=== PATIENT | male | born 1935 | race Caucasian/White ===

== ENCOUNTER 2017-01-01 03:00 | Inpatient (IN) | payer MEDICARE, BC ==
[~2017-01-01] VITALS: Ht 162.6 cm; Wt 97.6 kg
[~2017-01-01 03:00] MED LIST: ALPR0.5T6 PO; AMLO10TA2 PO; ASPI-482 PO; CALC0.25 PO; DOCU100C5 PO; DORZ10DR7 RIGHTEYE; FERR325T20 PO; FLUN25SP NS; FOLI1TAB16 PO; FURO80TA3 PO; GEMF600T3 PO; INSU100V SQ; INSU100V8 SQ; LACT10SO5 PO; LATA2.5D3 EACHEYE; LIPA1CAP10 PO; MAGN400T22 PO; METO10TA5 PO; METO50TA2 PO; MORP30TA PO; MORP60CA17 PO; OMEG1CAP6 PO; OMEP20TA63 PO; PREG25CA PO; PREG75CA PO; ROPI1TAB2 PO; SENN8.6T99 PO; SPIR25TA3 PO; TAMS0.4C2 PO; TRAV5DRO OP; WARF4TAB7 PO; WARF5TAB7 PO
[2017-01-01 04:55] VITALS: BP 164/75
[2017-01-01] MEDS ORDERED: hydrALAZINE 20 MG/ML VIAL. IVP PRN (05:00)
[2017-01-01] MEDS ORDERED: ACETAMINOPHEN 325 MG TABLET. PO PRN (05:00)
[2017-01-01] MEDS ORDERED: FUROSEMIDE 20 MG/2 ML VIAL IVP ONE (05:30)
[2017-01-01] MEDS ORDERED: FENTANYL PF 100 MCG/2 ML VIAL. IV ONE (06:00)
[2017-01-01] MEDS: HYDROCODONE/APAP 5/325MG TABLET. PO PRN ×2 (06:21→09:53)
[2017-01-01 07:00] VITALS: BP 143/64
[2017-01-01 11:00] VITALS: BP 175/77
--- NOTE | 2017-01-01 11:06 | PDOC2 ---
DATE OF CONSULT Date of Consult 01/01/2017 REASON FOR CONSULT Reason for Consult CKD III/ IV + TIM REFERRING PHYSICIAN Referring Provider Ameya CHIEF COMPLAINT Chief Complaint SOB SOURCE Source Pt and Records from outside hospital HPI HPI as dictated CURRENT MEDICATIONS Current Meds Current Medications Medications (Trade) Dose Ordered Sig/Tracy Route PRN Reason Start Time Stop Time Status Last Admin Dose Admin Furosemide (Lasix) 20 mg 1X ONCE IVP 01/01/17 05:30 01/01/17 05:31 DC 01/01/17 05:44 Fentanyl Citrate (Fentanyl 2ml Vial) 25 mcg 1X ONCE IV 01/01/17 06:00 01/01/17 06:01 DC 01/01/17 05:45 Acetaminophen/ Hydrocodone Bitart (Lortab 5/325) 1 tab PRN Q4HRS PRN PO MODERATE PAIN 01/01/17 05:30 01/01/17 09:53 Home Meds Reviewed as Doucmented ALLERGIES Allergies: Coded Allergies: Pehrntn-Oix-Zfq Reductase Inhibitor (Verified Allergy, Severe, Brain swelling. , 09/18/15) Pt was taking Gabapentin with a Statin and per . "It almost killed him." gabapentin (Verified Allergy, Severe, Brain swelling, 09/18/15) Per pt had Gabapentin with a Statin and it caused brain swelling, "almost killed him." sulfamethoxazole (Verified Allergy, Intermediate, 01/01/17) trimethoprim (Verified Allergy, Intermediate, 01/01/17) ROS ROS GEN: subj Fevers no Chills EYES: no new Visual Complaints ENT: no EN Drainage Ch Hearing deficiets CVS: no Orthopnea no CP RESP: occ SOB occ HANSEN GI: min Nausea no Vomiting : ? Dysuria occ Urgency HEME: no easy bruising no Palp Ly Nodes NEURO no Focal Weakness no Sz PSYCH: no Suicidal Ideation no Depression SKIN: no Rashes ENDO: no Polyuria or Polydipsia no Hot/Cold Intolerance MU SK: ch Arthraigia no Myalgia VITAL SIGNS Vital Signs VS - Last 72 Hours, by Label Date Time Temp Pulse Resp B/P Pulse Ox O2 Delivery O2 Flow Rate FiO2 01/01/17 09:53 94 Room Air 01/01/17 07:25 Room Air 01/01/17 07:00 97.4 71 14 143/64 94 Room Air 97.4 01/01/17 06:21 20 Room Air 01/01/17 06:15 20 Room Air 01/01/17 06:04 Room Air 01/01/17 05:45 20 Room Air 01/01/17 04:55 97.5 69 18 164/75 96 Room Air 97.5 PHYSICAL EXAM Physical Exam General Appearance: Awake Alert Oriented x 3 In mod Distress Eyes: VIsion Unchanged Conjunctiva Normal EN: No EN Drainage Mucous Memb. moist Neck: no JVD no JVP Supple no Thyromegaly; shorth thick neck CVS: S1 S2 ? Murmur No Gallop No Rub +2 Edema Resp: no Rales no Rhonchi no Acc. Muscle use GI: BAS +ve NO Bruit Non Tender Non Distended; Obese : no CVA tenderness; no Suprapubic Tenderness SKIN: no Rashes Breast Exam deferred Mu.Sk: Adequate ROM no Muscle Atrophy Heme: Unable to palpate Obvious LAD no palp Splenomegaly NEURO: Good Strength and Tone Cranial Nerves II - XII grossly intact Psych: ? Depressed appearring no Active hallucination ASSESSMENT/PLAN Assessment/Plan CKD III/ Iv - await 24hr Urine collection results from PCP office. Current FLuid and E-lyte status does not necessitate emergent need for Dialysis. Low Back pain - better with Urination - ? Retention; cannot R/o Pyelo given CT Findings recent Hematuria asso with Good placement - Check Bl Scan - URO eval for ? Good placement with Lasix gtt Anasarca - Lasix gtt, OK lookin Liver on CT, check Renal US and ECHO - May need Rt Heart Cath Anemia: check Iron; may need Epogen Transfuse as needed. DM -nephropathy - unable to quantify Protein due to ch. Incontinence as OP and now Hematuria HTN: Current BP meds reviewed. See orders for changes. Discussed Plan of Care and prognosis etc. at length with family. LABS Labs: Laboratory Tests Test 01/01/17 08:08 01/01/17 10:57 Glucose (Fingerstick) 148mg/dL (70-99) 218mg/dL (70-99) RICHIE UPTON MD Jan 01, 2017 11:06
[2017-01-01] MEDS ORDERED: MAGNESIUM SULFATE 2GM 50 ML IV PRN (11:15)
[2017-01-01] MEDS ORDERED: ALPRAZOLAM 0.5 MG TABLET PO PRN (11:45)
[2017-01-01] MEDS ORDERED: METOPROLOL TART IMMED RELEASE 25 MG TABLET PO SCH (12:30)
[2017-01-01] MEDS ORDERED: PANTOPRAZOLE 40 MG TABLET. PO SCH (12:30)
[2017-01-01] MEDS ORDERED: SPIRONOLACTONE 25 MG TABLET PO SCH (12:30)
[2017-01-01 13:53] LABS: PROTHROMBIN TIME PATIENT 21.6 SEC (11.7-14.0)
[2017-01-01 15:00] VITALS: BP 144/69
--- NOTE | 2017-01-01 15:05 | RAD ---
Renal ultrasound 01/01/2017 Clinical history: Elevated creatinine. Renal failure. Technique: A real-time ultrasound examination of both kidneys and the urinary bladder was performed. Multiple images were obtained. Findings: Comparison study is dated 11/25/2014. The right kidney is normal in size measuring 11.6 cm in length. No focal abnormality of the right kidney is seen. There is no evidence of hydronephrosis. The left kidney not visualized due to to the patient's very large body habitus and overlying bowel gas. The urinary bladder is not visualized. Impression: 1. No focal abnormality of the right kidney is seen. 2.The left kidney is not visualized as outlined above.
[2017-01-01] MEDS ORDERED: WARFARIN 4 MG TABLET. PO SCH (16:00)
[2017-01-01] MEDS: GEMFIBROZIL 600 MG TABLET. PO SCH ×2 (16:02→20:57)
[2017-01-01] MEDS: PREGABALIN 75 MG CAPSULE PO SCH ×2 (16:02→20:56)
[2017-01-01] MEDS: OMEGA-3 FATTY ACIDS/FISH OIL 1,000 MG CAPSULE. PO SCH (16:03)
[2017-01-01] MEDS: TAMSULOSIN 0.4 MG CAP.ER.24H. PO SCH (16:03)
[2017-01-01] MEDS: FOLIC ACID 1 MG TABLET PO SCH ×2 (16:03→20:57)
[2017-01-01] MEDS: OXYCODONE/APAP 5/325 TABLET. PO PRN ×2 (16:03→22:49)
[2017-01-01] MEDS: LIPASE/PROTEAS/AMYLASE 5/17/27 CAPSULE.DR. PO SCH ×2 (16:04→17:00)
[2017-01-01] MEDS: ASPIRIN ENTERIC COATED 81 MG TABLET.DR. PO SCH (16:04)
[2017-01-01] MEDS: WARFARIN 2 MG TABLET. PO SCH (16:04)
[2017-01-01] MEDS: CALCITRIOL 0.25 MCG CAPSULE PO SCH (16:04)
[2017-01-01] MEDS: SENNOSIDES 8.6 MG TABLET PO SCH ×2 (16:04→20:57)
[2017-01-01] MEDS: DORZOLAMIDE/TIMOLOL 2%/0.5% OPHTH SOLUTION 10ML BOTTLE. OU SCH ×2 (16:05→20:57)
[2017-01-01] MEDS: INSULIN ASPART 300 UNITS/3 ML INSULN.PEN SQ SCH (17:41)
[2017-01-01] MEDS ORDERED: DEXTROSE 50% 25 GM / 50ML DISP.SYRIN. IV PRN (17:45)
--- NOTE | 2017-01-01 18:58 | HP ---
ADMIT DATE: 01/01/2017 CHIEF COMPLAINT: Scrotal edema. HISTORY OF PRESENT ILLNESS: The patient is an 81-year-old gentleman who had presented to [facility] with increased swelling in his scrotal area, also had lower extremity edema. He was worked up there with a CT of the abdomen without intravenous contrast secondary to chronic renal insufficiency. CT showed diffuse body wall edema in keeping with volume overload. No significant pleural effusion or ascites, however, was noted. As he had significant renal insufficiency at baseline, which appeared to be worse at [facility], he was transferred here for evaluation by Nephrology. He typically follows Dr. Caesar Grant on an outpatient basis. PAST MEDICAL HISTORY: CKD stage III, hypertension, hyperlipidemia, diabetes mellitus, CAD, paroxysmal atrial fibrillation, sick sinus syndrome, cardiomyopathy, thrombocytopenia, obstructive sleep apnea, history of pneumonia. PAST SURGICAL HISTORY: He is status post CABG and catheterization with stent placement, status post rotator cuff repair, also cardiac pacemaker placement. FAMILY HISTORY: CAD. SOCIAL HISTORY: Lives with his , never smoked, drinks about 5 beers a week. ALLERGIES: STATINS, GABAPENTIN, SULFA. MEDICATIONS: MAR reconciled with home medications. REVIEW OF SYSTEMS: Essentially positive as per HPI. The patient is quite inactive at home, gets short of breath with minimal exertion. Has some urinary incontinence as well. Denies any hesitancy or other BPH symptoms. Denies any ongoing shortness of breath at rest, any chest pain, cough or sputum production. Denies any nausea, vomiting or diarrhea. PHYSICAL EXAMINATION: VITAL SIGNS: From today show a blood pressure of 143/64, heart rate of 71, respiratory rate at 14. He is afebrile. GENERAL: This is a morbidly obese, 81-year-old gentleman, alert and oriented, no acute distress, somewhat labored breathing, which he considers normal. HEENT: Shows no scleral icterus. NECK: Short and thick. LUNGS: Fairly clear bilaterally. HEART: Regular rate and rhythm. ABDOMEN: Has positive bowel sounds, morbidly obese. Organs could not be palpated, slightly distended. EXTREMITIES: Show 1-2+ pitting edema with chronic venous stasis changes. LABORATORY DATA: CBC from today shows a WBC of 4.2, hemoglobin at 10.1 with an MCV at 101, platelets at 99. Differential essentially within normal limits. Chemistries with potassium of 4.9, BUN and creatinine of 55 and 2.2. ALT at 67, PT/INR at 21 and 1.8. BNP of 1630, which for him is actually relatively low, previously up to 8000. CT of the chest, abdomen and pelvis obtained at [facility] shows only diffuse body wall edema. No pleural effusion or ascites. ASSESSMENT AND PLAN: The patient is an 81-year-old morbidly obese gentleman with multiple medical issues including now chronic kidney disease 4. His returns supervisor, Dr. Grant has already seen him and the patient was discussed with him. For his anasarca, he will receive Lasix by IV. Further testing with renal ultrasound will be obtained. Given current presentation, cannot rule out congestive heart failure/right-sided heart failure with liver congestion. We will obtain echo as well as Cardiology consult for consideration of right heart catheterization. He does have anemia, which is not unusual given his renal disease. However, he actually is macrocytic. We will obtain additional labs to rule out deficiencies. He does have multiple cardiac issues as well. For now, appears fairly stable. We will continue current medications. Cardiology consult has been requested. Diabetes mellitus seems fairly well controlled. We will continue home medications, add insulin sliding scale. Has osteoarthritis with chronic lower back pain. Although hydrocodone is listed on his med sheets, he apparently takes oxycodone at home. This has been ordered here. Prophylaxis will be instituted with subcutaneous heparin as well as PPI. MELISSA ESPAÑA MD DR: JAY/elpidio JOB#: [id number] / [id number] [place]
[2017-01-01 19:00] VITALS: BP 175/74
[2017-01-01] MEDS: rOPINIRole 1 MG TABLET. PO SCH (20:56)
[2017-01-01] MEDS: FERROUS SULFATE 325 MG TABLET PO SCH (20:57)
[2017-01-01] MEDS: LATANOPROST 0.005% OPHTH SOLUTION 2.5ML BOTTLE. OU SCH (20:57)
[2017-01-01] MEDS: METOPROLOL TART IMMED RELEASE 25 MG TABLET PO SCH (21:02)
[2017-01-01] MEDS: INSULIN DETEMIR 300 UNITS/3 ML INSULN.PEN. SQ SCH (21:05)
[2017-01-01 23:38] VITALS: BP 128/65
--- NOTE | 2017-01-02 00:36 | CONS ---
DATE OF CONSULTATION: 01/01/2017 PRIMARY PHYSICIAN: Dalton Hou MD REASON FOR CONSULTATION: Chronic renal insufficiency. HISTORY OF PRESENT ILLNESS: The patient is a pleasant 81-year-old gentleman with past medical history as outlined below. He was having lower back pain and presented to [place] [facility] for further evaluation. He underwent CT scan of his abdomen, which showed no gross abnormalities other than mild bilateral nonspecific perinephric stranding and diffuse body wall edema with possible volume overload. No pleural effusions or ascites were noted. The patient has had issues with chronic incontinence. [facility] He does not recollect the name. We have attempted to do a 24-hour urine on numerous occasions; however, on one occasion, he was able to return a urine specimen, he only had 650 mL because of his incontinence, hence, a Good catheter was ordered at this visit. He claims a home health nurse had come by and placed a Good catheter, but he was urinating bloody urine at that time. His Good was taken out about a week or two ago. ____ a 24-hour urine collection, the results of which are not available to me at this time. He claims his pain started right around that time. He does claim that it is better with urination. Denies any shortness of breath, fevers, or chills. The patient has had issues with fluid overload from time to time. On attempting to diurese him, he has gone into renal failure and "dehydration," for which he was recently treated at [facility]. He also had lower extremity fracture at that time. PAST MEDICAL HISTORY: Significant for: 1. Longstanding diabetes. 2. CKD stage 3/4, depending on fluid status. 3. Hypertension. 4. Hyperlipidemia. 5. Exogenous obesity. 6. Peptic ulcer disease. 7. Hearing deficits. 8. Coronary artery disease, status post CABG. 9. GERD. 10. Paroxysmal atrial fibrillation. 11. Sick sinus syndrome. 12. Cardiomyopathy, EF not known. 13. History of pneumonia. 14. Obstructive sleep apnea. PAST SURGICAL HISTORY: 1. Rotator cuff surgery. 2. Breast surgery. 3. Eye surgery. 4. ____ stimulator in place. SOCIAL HISTORY: Never smoked, . Alcohol: Five cans of beer per week. FAMILY HISTORY: Negative for known kidney problems that the patient admits to at this time. For rest of the details, please see electronic renal consult note. RICHIE UPTON MD DR: JAMIE/elpidio JOB#: [id number] / [id number]
[2017-01-02 03:32] VITALS: BP 119/61
[2017-01-02 04:47] LABS: BASO % 1 % (0-3); EOS % 1 % (0-3); HEMATOCRIT 29.3 % (39.0-53.0); HEMOGLOBIN 9.5 g/dL (13.0-17.5); LYMPH # 0.8 x10^3/uL (1.0-4.8); LYMPH % 25 % (24-48); MEAN CORPUSCULAR HEMOGLOBIN 32 pg (25-35); MEAN CORPUSCULAR HGB CONC 32 g/dL (31-37); MEAN CORPUSCULAR VOLUME 99 fL (79-100); MONO % 12 % (0-9); NEUT % 61 % (31-73); PLATELET COUNT 81 x10^3/uL (140-400); RED BLOOD COUNT 2.95 x10^6/uL (4.30-5.70); RED CELL DISTRIBUTION WIDTH 16.3 % (11.5-14.5); WHITE BLOOD COUNT 3.3 x10^3/uL (4.0-11.0)
[2017-01-02 04:53] LABS: RETIC COUNT 1.1 % (0.5-2.5)
[2017-01-02 04:59] LABS: INR 2.3 (0.8-1.1); PROTHROMBIN TIME PATIENT 23.8 SEC (11.7-14.0)
[2017-01-02 05:00] LABS: ALBUMIN 2.9 g/dL (3.4-5.0); CALCIUM 8.4 mg/dL (8.5-10.1); CREATININE 2.1 mg/dL (0.7-1.3); GFR 30.5; PHOSPHORUS 3.3 mg/dL (2.6-4.7); POTASSIUM 4.4 mmol/L (3.5-5.1)
[2017-01-02 06:12] LABS: % SAT IRON 15 % (15-34); IRON,SERUM 40 ug/dL (65-175)
[2017-01-02 07:00] VITALS: BP 141/73
[2017-01-02] MEDS: INSULIN ASPART 300 UNITS/3 ML INSULN.PEN SQ SCH ×6 (08:00→16:43)
[2017-01-02] MEDS: CALCITRIOL 0.25 MCG CAPSULE PO SCH (09:04)
[2017-01-02] MEDS: ASPIRIN ENTERIC COATED 81 MG TABLET.DR. PO SCH (09:04)
[2017-01-02] MEDS: GEMFIBROZIL 600 MG TABLET. PO SCH ×2 (09:04→20:34)
[2017-01-02] MEDS: PANTOPRAZOLE 40 MG TABLET. PO SCH (09:04)
[2017-01-02] MEDS: SENNOSIDES 8.6 MG TABLET PO SCH ×2 (09:04→20:35)
[2017-01-02] MEDS: PREGABALIN 75 MG CAPSULE PO SCH ×2 (09:04→20:35)
[2017-01-02] MEDS: LIPASE/PROTEAS/AMYLASE 5/17/27 CAPSULE.DR. PO SCH ×3 (09:04→16:26)
[2017-01-02] MEDS: DORZOLAMIDE/TIMOLOL 2%/0.5% OPHTH SOLUTION 10ML BOTTLE. OU SCH ×2 (09:05→20:36)
[2017-01-02] MEDS: OMEGA-3 FATTY ACIDS/FISH OIL 1,000 MG CAPSULE. PO SCH (09:05)
[2017-01-02] MEDS: FOLIC ACID 1 MG TABLET PO SCH ×3 (09:05→20:35)
[2017-01-02] MEDS: METOPROLOL TART IMMED RELEASE 25 MG TABLET PO SCH ×2 (09:10→20:37)
[2017-01-02] MEDS: TAMSULOSIN 0.4 MG CAP.ER.24H. PO SCH (09:17)
[2017-01-02] MEDS: OXYCODONE/APAP 5/325 TABLET. PO PRN ×2 (09:17→15:25)
[2017-01-02] MEDS: LISINOPRIL 2.5 MG TABLET PO SCH (09:17)
[2017-01-02] MEDS: CHOLECALCIFEROL (VITAMIN D3) 1,000 UNIT TABLET PO SCH (09:17)
[2017-01-02] MEDS: MAGNESIUM OXIDE 400 MG TABLET PO SCH (09:17)
[2017-01-02 11:00] VITALS: BP 125/60
--- NOTE | 2017-01-02 11:43 | PDOC ---
SUBJECTIVE ROS CKD III, Anasarca Doing same overall, feels swollen kumar in scrotum CVS: no Orthopnea, no CP RESP: no SOB, no HANSEN GI: no Nausea, no Vomiting : no Dysuria, no Urgency OBJECTIVE Vital Signs Vital Signs Date Time Temp Pulse Resp B/P Pulse Ox O2 Delivery O2 Flow Rate FiO2 01/02/17 10:20 97 Room Air 01/02/17 09:17 76 141/73 01/02/17 07:00 98.0 24 98.0 I & 0 Intake and Output 01/02/17 07:00 Intake Total 680 ml Output Total 300 ml Balance 380 ml Intake Oral 680 ml Output Urine Total 300 ml # Voids 4 PHYSICAL EXAM Physical Exam General Appearance: Awake Alert Oriented x 3 In mod Distress Eyes: VIsion Unchanged Conjunctiva Normal EN: No EN Drainage Mucous Memb. moist Neck: no JVD no JVP Supple no Thyromegaly; shorth thick neck CVS: S1 S2 ? Murmur No Gallop No Rub +2 Edema Resp: no Rales no Rhonchi no Acc. Muscle use GI: BAS +ve NO Bruit Non Tender Non Distended; Obese : no CVA tenderness; no Suprapubic Tenderness Scrotum is swollen ASSESSMENT/PLAN Assessment/Plan CKD III/ Iv - await 24hr Urine collection results from PCP office. Current FLuid and E-lyte status does not necessitate emergent need for Dialysis. Low Back pain (Chronic) - - ? Retention; cannot R/o Pyelo given CT Findings recent Hematuria asso with Good placement (Just seen by URO) Anasarca - Lasix gtt, OK lookin Liver on CT, check Renal US and ECHO - May need Rt Heart Cath to assess RA/RV Pressures (Known Non-compliance with CPAP as previously reccomended for JOSHUA) JOSUHA - non-complicane with CPAP Anemia: (presumably part of Pancytopenia) appears partially Iron def ; may need Epogen, Transfuse as needed. DM -nephropathy - unable to quantify Protein due to ch. Incontinence as OP and now Hematuria HTN: Current BP meds reviewed. See orders for changes. Discussed Plan of Care and prognosis etc. at length with family. COMMENT/RELEVANT DATA Meds Current Medications Medications (Trade) Dose Ordered Sig/Tracy Start Time Stop Time Status Last Admin Dose Admin Acetaminophen (Tylenol) 650 mg PRN TID PRN 01/01/17 05:00 Acetaminophen/ Hydrocodone Bitart 1 tab 1 tab PRN Q4HRS PRN 01/01/17 05:30 01/01/17 15:36 DC 01/01/17 09:53 1 TAB Alprazolam (Xanax) 0.5 mg PRN TID PRN 01/01/17 11:45 Amylase/Lipase/ Protease (Zenpep 5,000) 4 cap TIDWMEALS 01/01/17 12:30 01/02/17 09:04 4 CAP Aspirin (Ecotrin) 81 mg DAILY 01/01/17 12:30 01/02/17 09:04 81 MG Calcitriol (Rocaltrol) 0.25 mcg DAILY 01/01/17 12:30 01/02/17 09:04 0.25 MCG Dextrose 12.5 gm PRN Q15MIN PRN 01/01/17 17:45 Dorzolamide/ Timolol (Cosopt) 1 drop BID 01/01/17 12:30 01/02/17 09:05 1 DROP Fentanyl Citrate (Fentanyl 2ml Vial) 25 mcg 1X ONCE 01/01/17 06:00 01/01/17 06:01 DC 01/01/17 05:45 25 MCG Ferrous Sulfate (Feosol) 325 mg QHS 01/01/17 21:00 01/01/17 20:57 325 MG Fish Oil (Fish Oil) 1,000 mg DAILY 01/01/17 12:30 01/02/17 09:05 1,000 MG Folic Acid (Folic Acid) 2 mg TID 01/01/17 14:00 01/02/17 09:05 2 MG Furosemide (Lasix) 20 mg 1X ONCE 01/01/17 05:30 01/01/17 05:31 DC 01/01/17 05:44 20 MG Furosemide 100 mg/ Sodium Chloride 100 ml @ 5 mls/hr CONT PRN 01/01/17 11:15 Gemfibrozil (Lopid) 600 mg BID 01/01/17 12:30 01/02/17 09:04 600 MG Hydralazine HCl (Apresoline) 10 mg PRN Q4HRS PRN 01/01/17 05:00 Insulin Aspart (Novolog) 0-7 UNITS TIDWMEALS 01/02/17 08:00 Insulin Detemir (Levemir) 24 units QHS 01/01/17 21:00 01/01/17 21:05 24 UNITS Latanoprost (Xalatan) 1 drop QHS 01/01/17 21:00 01/01/17 20:57 1 DROP Lisinopril (Prinivil) 2.5 mg DAILY 01/02/17 09:00 01/02/17 09:17 2.5 MG Magnesium Oxide (Magnesium Oxide) 400 mg DAILY 01/02/17 09:00 01/02/17 09:17 400 MG Magnesium Sulfate/ Dextrose (Magnesium Sulfate PREMIX 2GM) 50 ml @ 25 mls/hr PRN DAILY PRN 01/01/17 11:15 Metoprolol Tartrate (Lopressor) 100 mg BID 01/01/17 21:00 01/02/17 09:10 100 MG Oxycodone/ Acetaminophen (Percocet 5/325) 1 tab PRN Q6HRS PRN 01/01/17 13:15 01/02/17 09:17 1 TAB Pantoprazole Sodium (Protonix) 40 mg DAILYAC 01/02/17 07:30 01/02/17 09:04 40 MG Pregabalin (Lyrica) 75 mg BID 01/01/17 12:30 01/02/17 09:04 75 MG Ropinirole HCl (Requip) 1 mg HS 01/01/17 21:00 01/01/17 20:56 1 MG Sennosides (Senna) 8.6 mg BID 01/01/17 12:30 01/02/17 09:04 8.6 MG Spironolactone (Aldactone) 25 mg DAILY 01/01/17 12:30 01/01/17 15:36 DC Tamsulosin HCl (Flomax) 0.8 mg DAILY 01/01/17 12:30 01/02/17 09:17 0.8 MG Vitamin D (Vitamin D3) 1,000 unit DAILY 01/02/17 09:00 01/02/17 09:17 1,000 UNIT Warfarin Sodium (Coumadin Per Physician) 1 each PRN DAILY PRN 01/01/17 12:45 Warfarin Sodium (Coumadin) 2 mg DAILY16 01/01/17 16:00 01/01/17 16:04 2 MG Lab Laboratory Tests Test 01/01/17 13:30 01/01/17 17:12 01/01/17 20:34 01/02/17 04:10 Prothrombin Time 21.6SEC (11.7-14.0) 23.8SEC (11.7-14.0) Prothromb Time International Ratio 2.0 (0.8-1.1) 2.3 (0.8-1.1) Glucose (Fingerstick) 255mg/dL (70-99) 212mg/dL (70-99) White Blood Count 3.3x10^3/uL (4.0-11.0) Red Blood Count 2.95x10^6/uL (4.30-5.70) Hemoglobin 9.5g/dL (13.0-17.5) Hematocrit 29.3% (39.0-53.0) Mean Corpuscular Volume 99fL (79-100) Mean Corpuscular Hemoglobin 32pg (25-35) Mean Corpuscular Hemoglobin Concent 32g/dL (31-37) Red Cell Distribution Width 16.3% (11.5-14.5) Platelet Count 81x10^3/uL (140-400) Neutrophils (%) (Auto) 61% (31-73) Lymphocytes (%) (Auto) 25% (24-48) Monocytes (%) (Auto) 12% (0-9) Eosinophils (%) (Auto) 1% (0-3) Basophils (%) (Auto) 1% (0-3) Neutrophils # (Auto) 2.0x10^3uL (1.8-7.7) Lymphocytes # (Auto) 0.8x10^3/uL (1.0-4.8) Monocytes # (Auto) 0.4x10^3/uL (0.0-1.1) Eosinophils # (Auto) 0.0x10^3/uL (0.0-0.7) Basophils # (Auto) 0.0x10^3/uL (0.0-0.2) Reticulocyte Count (auto) 1.1% (0.5-2.5) Sodium Level 146mmol/L (136-145) Potassium Level 4.4mmol/L (3.5-5.1) Chloride Level 112mmol/L (98-107) Carbon Dioxide Level 25mmol/L (21-32) Anion Gap 9 (6-14) Blood Urea Nitrogen 58mg/dL (8-26) Creatinine 2.1mg/dL (0.7-1.3) Estimated GFR (Cockcroft-Gault) 30.5 Glucose Level 80mg/dL (70-99) Calcium Level 8.4mg/dL (8.5-10.1) Phosphorus Level 3.3mg/dL (2.6-4.7) Magnesium Level 1.7mg/dL (1.8-2.4) Iron Level 40ug/dL (65-175) Total Iron Binding Capacity 271ug/dL (250-450) Iron Saturation 15% (15-34) Ferritin 239ng/mL (26-388) Albumin 2.9g/dL (3.4-5.0) Test 01/02/17 09:14 01/02/17 10:54 Glucose (Fingerstick) 134mg/dL (70-99) 105mg/dL (70-99) RICHIE UPTON MD Jan 02, 2017 11:43
--- NOTE | 2017-01-02 14:06 | PDOC ---
PROGRESS NOTES Chief Complaint Chief Complaint Fluid overload ASSESSMENT AND PLAN: 1. Fluid overload: on IV lasix. Dr Grant following. cardiology consult requested for consideration of R heart cath 2. CKD4: baseline creat 1.6-2. at upper end currently 3. Anemia: macrocytic. prob related to CKD; iron studies c/w chronic dz (low TIBC, high ferritin). B12/folate pending 4. CAD: no acute issues save as above 5. PAF: currently NSR 6. OAC: on coumadin, therapeutic INR 7. HTN: well controlled 8. HLD: on statin 9. DM: well controlled on current regimen 10. OA: chronic LBP. continue home regimen 11. Prophylaxis: heparin, PPI Vitals Vitals Vital Signs Date Time Temp Pulse Resp B/P Pulse Ox O2 Delivery O2 Flow Rate FiO2 01/02/17 11:00 98.3 72 18 125/60 98 Room Air 98.3 Physical Exam General: Alert, Oriented X3, Cooperative Lungs: Clear Abdomen: Normal bowel sounds, Soft, No tenderness Skin: No rashes Labs LABS Laboratory Tests Test 01/01/17 17:12 01/01/17 20:34 01/02/17 04:10 01/02/17 09:14 Glucose (Fingerstick) 255mg/dL (70-99) 212mg/dL (70-99) 134mg/dL (70-99) White Blood Count 3.3x10^3/uL (4.0-11.0) Red Blood Count 2.95x10^6/uL (4.30-5.70) Hemoglobin 9.5g/dL (13.0-17.5) Hematocrit 29.3% (39.0-53.0) Mean Corpuscular Volume 99fL (79-100) Mean Corpuscular Hemoglobin 32pg (25-35) Mean Corpuscular Hemoglobin Concent 32g/dL (31-37) Red Cell Distribution Width 16.3% (11.5-14.5) Platelet Count 81x10^3/uL (140-400) Neutrophils (%) (Auto) 61% (31-73) Lymphocytes (%) (Auto) 25% (24-48) Monocytes (%) (Auto) 12% (0-9) Eosinophils (%) (Auto) 1% (0-3) Basophils (%) (Auto) 1% (0-3) Neutrophils # (Auto) 2.0x10^3uL (1.8-7.7) Lymphocytes # (Auto) 0.8x10^3/uL (1.0-4.8) Monocytes # (Auto) 0.4x10^3/uL (0.0-1.1) Eosinophils # (Auto) 0.0x10^3/uL (0.0-0.7) Basophils # (Auto) 0.0x10^3/uL (0.0-0.2) Reticulocyte Count (auto) 1.1% (0.5-2.5) Prothrombin Time 23.8SEC (11.7-14.0) Prothromb Time International Ratio 2.3 (0.8-1.1) Sodium Level 146mmol/L (136-145) Potassium Level 4.4mmol/L (3.5-5.1) Chloride Level 112mmol/L (98-107) Carbon Dioxide Level 25mmol/L (21-32) Anion Gap 9 (6-14) Blood Urea Nitrogen 58mg/dL (8-26) Creatinine 2.1mg/dL (0.7-1.3) Estimated GFR (Cockcroft-Gault) 30.5 Glucose Level 80mg/dL (70-99) Calcium Level 8.4mg/dL (8.5-10.1) Phosphorus Level 3.3mg/dL (2.6-4.7) Magnesium Level 1.7mg/dL (1.8-2.4) Iron Level 40ug/dL (65-175) Total Iron Binding Capacity 271ug/dL (250-450) Iron Saturation 15% (15-34) Ferritin 239ng/mL (26-388) Albumin 2.9g/dL (3.4-5.0) Test 01/02/17 10:54 Glucose (Fingerstick) 105mg/dL (70-99) Review of Systems Review of Systems feels ok, worried about the LE edema. breathing better MELISSA ESPAÑA MD Jan 02, 2017 14:06
[2017-01-02 14:14] LABS: FOLIC ACID >19.9 ng/mL (>3.0)
[2017-01-02] MEDS: FUROSEMIDE INJ 100 MG in IV NORMAL SALINE 100ML 100 ML IV PRN (14:44)
[2017-01-02 15:00] VITALS: BP 116/62
[2017-01-02] MEDS: WARFARIN 2 MG TABLET. PO SCH (16:26)
[2017-01-02 19:00] VITALS: BP 138/74
[2017-01-02] MEDS: FERROUS SULFATE 325 MG TABLET PO SCH (20:35)
[2017-01-02] MEDS: rOPINIRole 1 MG TABLET. PO SCH (20:35)
[2017-01-02] MEDS: LATANOPROST 0.005% OPHTH SOLUTION 2.5ML BOTTLE. OU SCH (20:36)
[2017-01-02] MEDS: INSULIN DETEMIR 300 UNITS/3 ML INSULN.PEN. SQ SCH (20:46)
[2017-01-02 23:02] LABS: BILIRUBIN,URINE NEGATIVE (NEG); GLUCOSE,URINE NEGATIVE (NEG); NITRITE,URINE NEGATIVE (NEG); PH,URINE 5.5; UROBILINOGEN,URINE 0.2 mg/dL (0.2 mg/dL)
[2017-01-02 23:09] LABS: PROTEIN,URINE TRACE mg/dL (NEG-TRACE)
[2017-01-02 23:10] LABS: BACTERIA,URINE 0 /HPF (0-FEW); SQUAMOUS EPITHELIAL CELL,UR OCC /LPF; WBC,URINE OCC /HPF (0-4)
[2017-01-02 23:11] VITALS: BP 135/81
--- NOTE | 2017-01-03 00:42 | CONS ---
DATE OF CONSULTATION: 01/02/2017 CHIEF COMPLAINT: Scrotal and penile swelling. HISTORY OF PRESENT ILLNESS: An 81-year-old obese male that was initially seen at [facility] for scrotal edema. He was then transferred to [facility] because his analyst competitive intelligence is on staff here. The patient states that the penile and scrotal swelling started about a week or so ago and progressively worsened. There has been no history of trauma. The patient states he is voiding satisfactorily. PAST MEDICAL HISTORY: Significant for chronic kidney disease stage III, hypertension, diabetes, coronary artery disease, atrial fibrillation, cardiomyopathy, sleep apnea and congestive heart failure. PAST SURGICAL HISTORY: The patient has had coronary artery bypass graft surgery. He has had coronary artery stent placements, rotator cuff repair and placement of a cardiac pacemaker. ALLERGIES: THE PATIENT IS ALLERGIC TO STATINS, GABAPENTIN, BACTRIM, AND TRIMETHOPRIM. REVIEW OF SYSTEMS: Reviewed. No significant as his HPI. PHYSICAL EXAMINATION: GENERAL DESCRIPTION: An 81-year-old morbidly obese male sitting in a chair and he denies pain or discomfort, but he does have shortness of breath. ABDOMEN: Morbidly obese, negative for flank pain to palpation. No palpable abdominal masses. He denies suprapubic tenderness. GENITALIA: The penile skin and scrotal skin are severely edematous. No lesions or abrasions. EXTREMITIES: The patient is edematous and has pitting edema from the waist on down. Lower extremities appear to be somewhat vascular compromised. LABORATORY STUDIES: The patient's hemoglobin 9.5, hematocrit 29.3, platelets are low at 81,000. The patient's sodium 146, BUN 58, creatinine 2.1, glucose 134. Urine: No urine on the chart. X-RAY STUDIES: A CT scan performed at [facility] in [place] was consistent with body wall edema. Findings consistent with fluid overload. A renal ultrasound was performed at [place] on 01/01/2017 revealed no abnormalities, no hydronephrosis. The left kidney could not be visualized due to his obesity. IMPRESSION: Penoscrotal edema secondary to fluid overload, probable congestive heart failure. PLAN: 1. I told the patient that it would be helpful to elevate the scrotum on a towel he is sitting in a chair or lying in bed. 2. The scrotal and penile edema will improve as his fluid overload improves and his lower extremity pitting edema improves. He appears to understand. MYRIAM VERA DO DR: Misty JOB#: [id number] / [id number]
[2017-01-03 03:16] VITALS: BP 144/70
[2017-01-03] MEDS: OXYCODONE/APAP 5/325 TABLET. PO PRN ×2 (04:09→17:02)
[2017-01-03 06:03] LABS: BASO % 1 % (0-3); EOS % 1 % (0-3); HEMATOCRIT 31.1 % (39.0-53.0); HEMOGLOBIN 10.2 g/dL (13.0-17.5); LYMPH # 0.8 x10^3/uL (1.0-4.8); LYMPH % 22 % (24-48); MEAN CORPUSCULAR HEMOGLOBIN 32 pg (25-35); MEAN CORPUSCULAR HGB CONC 33 g/dL (31-37); MEAN CORPUSCULAR VOLUME 99 fL (79-100); MONO % 12 % (0-9); NEUT % 65 % (31-73); PLATELET COUNT 78 x10^3/uL (140-400); RED BLOOD COUNT 3.13 x10^6/uL (4.30-5.70); WHITE BLOOD COUNT 3.8 x10^3/uL (4.0-11.0)
[2017-01-03 06:26] LABS: ALBUMIN 3.1 g/dL (3.4-5.0); CALCIUM 8.6 mg/dL (8.5-10.1); CREATININE 2.1 mg/dL (0.7-1.3); GFR 30.5; PHOSPHORUS 3.2 mg/dL (2.6-4.7); POTASSIUM 4.2 mmol/L (3.5-5.1)
[2017-01-03 07:25] VITALS: BP 118/75
[2017-01-03] MEDS: INSULIN ASPART 300 UNITS/3 ML INSULN.PEN SQ SCH ×6 (07:30→17:00)
[2017-01-03] MEDS: LIPASE/PROTEAS/AMYLASE 5/17/27 CAPSULE.DR. PO SCH ×3 (08:00→17:02)
[2017-01-03] MEDS: SENNOSIDES 8.6 MG TABLET PO SCH ×2 (09:00→21:03)
[2017-01-03] MEDS: CHOLECALCIFEROL (VITAMIN D3) 1,000 UNIT TABLET PO SCH (09:38)
[2017-01-03] MEDS: GEMFIBROZIL 600 MG TABLET. PO SCH ×2 (09:38→21:00)
[2017-01-03] MEDS: CALCITRIOL 0.25 MCG CAPSULE PO SCH (09:38)
[2017-01-03] MEDS: PREGABALIN 75 MG CAPSULE PO SCH ×3 (09:38→22:00)
[2017-01-03] MEDS: ASPIRIN ENTERIC COATED 81 MG TABLET.DR. PO SCH (09:38)
[2017-01-03] MEDS: OMEGA-3 FATTY ACIDS/FISH OIL 1,000 MG CAPSULE. PO SCH (09:38)
[2017-01-03] MEDS: PANTOPRAZOLE 40 MG TABLET. PO SCH (09:39)
[2017-01-03] MEDS: FOLIC ACID 1 MG TABLET PO SCH ×3 (09:39→21:00)
[2017-01-03] MEDS: MAGNESIUM OXIDE 400 MG TABLET PO SCH (09:39)
[2017-01-03] MEDS: TAMSULOSIN 0.4 MG CAP.ER.24H. PO SCH (09:40)
[2017-01-03] MEDS: LISINOPRIL 2.5 MG TABLET PO SCH (09:40)
[2017-01-03] MEDS: METOPROLOL TART IMMED RELEASE 25 MG TABLET PO SCH ×2 (09:40→21:01)
[2017-01-03] MEDS: DORZOLAMIDE/TIMOLOL 2%/0.5% OPHTH SOLUTION 10ML BOTTLE. OU SCH ×2 (09:48→20:58)
--- NOTE | 2017-01-03 10:50 | PDOC2 ---
YAHAIRA POTTER FLUMER 01/03/17 1050: CARDIAC CONSULT DATE OF CONSULT Date of Consult DATE: 01/03/17 TIME: 10:40 REASON FOR CONSULT Reason for Consult: Fluid overload CKD ? need for right heart cath REFERRING PHYSICIAN Referring Physician: Dr. Welch SOURCE Source: Chart review, Patient HISTORY OF PRESENT ILLNESS HISTORY OF PRESENT ILLNESS This is an 81 yo male, with a h/o CAD s/p CABG, SSS s/p PPM, HTN, HLP, and CLD, who initially presented with complaints of [facility] with complaints of increasing lower extremity and scrotal edema. Patient was transferred to [facility] for neurology evaluation. Patient reports ongoing LE edema for the last years. Onset of lower abdominal/scrotal swelling a weeks and a half ago. Patient reports having ash catheter placed 12/24/16 for 24 hr Cr clearance per nephrolgy. Had hematuria post catheter. Denies any difficulty with urination of decreased urine output since removal of ash. Swelling began about 3-4 days after having cath removed. Patient denies any shortness of breath , orthopnea, or HANSEN. Additionally denies any CP, palpitations, dizziness, syncope, or recent illness/fevers. No recent change in diet or lifestyle. Patient follows closely with choir member, Dr. Madsen, at . Last f/u appointment 1 month ago and patient states he had good reports and was told his "heart is good." Reports also having stress test approximately 1 year ago and it was "okay." PAST MEDICAL HISTORY Cardiovascular: AFIB, CAD (s/p CABG ), CHF, HTN, ME, Hyperlipidemia, Other ( cardiomyopathy ) Pulmonary: Pneumonia, Other (JOSHUA) GI: GERD Heme/Onc: Anemia NOS, Cancer (skin) Musculoskeletal: low back pain, Osteoarthritis Renal/: Chronic renal insuff Endocrine: Diabetes PAST SURGICAL HISTORY Past Surgical History: Pacemaker, Tonsillectomy FAMILY HISTORY Family History: Heart Disease ALLERGIES ALLERGIES: Coded Allergies: Jzmciem-Loi-Vxy Reductase Inhibitor (Verified Allergy, Severe, Brain swelling. , 09/18/15) Pt was taking Gabapentin with a Statin and per . "It almost killed him." gabapentin (Verified Allergy, Severe, Brain swelling, 09/18/15) Per pt had Gabapentin with a Statin and it caused brain swelling, "almost killed him." sulfamethoxazole (Verified Allergy, Intermediate, 01/01/17) trimethoprim (Verified Allergy, Intermediate, 01/01/17) ROS Review of System 14 point ROS conducted with pertinent positives noted above in HPI PHYSICAL EXAM General: Alert, Oriented X3, Cooperative, No acute distress HEENT: Atraumatic, Mucous membr. moist/pink Lungs: Clear to auscultation, Normal air movement Heart: Regular rate, Normal S1, Normal S2 Abdomen: Soft, Other (acsites ) Extremities: Other (chronic venous stasis changes to bilateral LE. 2+ bilateral LE edema ) Skin: No breakdown, No significant lesion Neuro: Normal speech, Sensation intact Psych/Mental Status: Mental status NL, Mood NL MUSCULOSKELETAL: Osteoarthritic changes both hands VITALS VITALS Vital Signs Date Time Temp Pulse Resp B/P Pulse Ox O2 Delivery O2 Flow Rate FiO2 01/03/17 09:40 70 118/75 01/03/17 07:25 97.2 20 98 Room Air 97.2 LABS Lab: Laboratory Tests Test 01/02/17 10:54 01/02/17 16:40 01/02/17 20:42 01/02/17 21:40 Glucose (Fingerstick) 105mg/dL (70-99) 87mg/dL (70-99) 138mg/dL (70-99) Urine Collection Type Unknown Urine Color Yellow Urine Clarity Clear Urine pH 5.5 Urine Specific [place] 1.015 Urine Protein Tracemg/dL (NEG-TRACE) Urine Glucose (UA) Negativemg/dL (NEG) Urine Ketones (Stick) Negativemg/dL (NEG) Urine Blood Small (NEG) Urine Nitrite Negative (NEG) Urine Bilirubin Negative (NEG) Urine Urobilinogen Dipstick 0.2mg/dL (0.2 mg/dL) Urine Leukocyte Esterase Negative (NEG) Urine RBC 1-2/HPF (0-2) Urine WBC Occ/HPF (0-4) Urine Squamous Epithelial Cells Occ/LPF Urine Bacteria 0/HPF (0-FEW) Urine Hyaline Casts Moderate/HPF Urine Mucus Slight/LPF Test 01/03/17 05:25 01/03/17 07:28 01/03/17 07:53 White Blood Count 3.8x10^3/uL (4.0-11.0) Red Blood Count 3.13x10^6/uL (4.30-5.70) Hemoglobin 10.2g/dL (13.0-17.5) Hematocrit 31.1% (39.0-53.0) Mean Corpuscular Volume 99fL (79-100) Mean Corpuscular Hemoglobin 32pg (25-35) Mean Corpuscular Hemoglobin Concent 33g/dL (31-37) Red Cell Distribution Width 17.0% (11.5-14.5) Platelet Count 78x10^3/uL (140-400) Neutrophils (%) (Auto) 65% (31-73) Lymphocytes (%) (Auto) 22% (24-48) Monocytes (%) (Auto) 12% (0-9) Eosinophils (%) (Auto) 1% (0-3) Basophils (%) (Auto) 1% (0-3) Neutrophils # (Auto) 2.4x10^3uL (1.8-7.7) Lymphocytes # (Auto) 0.8x10^3/uL (1.0-4.8) Monocytes # (Auto) 0.4x10^3/uL (0.0-1.1) Eosinophils # (Auto) 0.0x10^3/uL (0.0-0.7) Basophils # (Auto) 0.0x10^3/uL (0.0-0.2) Sodium Level 143mmol/L (136-145) Potassium Level 4.2mmol/L (3.5-5.1) Chloride Level 111mmol/L (98-107) Carbon Dioxide Level 23mmol/L (21-32) Anion Gap 9 (6-14) Blood Urea Nitrogen 59mg/dL (8-26) Creatinine 2.1mg/dL (0.7-1.3) Estimated GFR (Cockcroft-Gault) 30.5 Glucose Level 53mg/dL (70-99) Calcium Level 8.6mg/dL (8.5-10.1) Phosphorus Level 3.2mg/dL (2.6-4.7) Magnesium Level 1.7mg/dL (1.8-2.4) Albumin 3.1g/dL (3.4-5.0) Glucose (Fingerstick) 49mg/dL (70-99) 158mg/dL (70-99) ECHOCARDIOGRAM ECHOCARDIOGRAM <Conclusion> The left ventricle is normal size. There is normal left ventricular wall thickness. Left ventricle systolic function is normal. The Ejection Fraction is 60-65%. There is a grade 1 diastolic dysfunction. There is no pericardial effusion The aortic root is of a normal size. The aortic valve is tricuspid. There is no aortic stenosis or regurgitation. There is no mitral stenosis or regurgitation. The left atrium and right atrium at the upper limits of normal in size. The right ventricle is mildly enlarged. A pacemaker is seen. There is moderate tricuspid regurgitation. There is probable moderate pulmonary hypertension with a right ventricular systolic pressure estimated to be 50 mmHg. The inferior vena cava is mildly enlarged with minimal inspiratory collapse. There is a trace tricuspid regurgitation. DATE: 11/21/14 1331 STRESS TEST STRESS TEST Conclusion 1. The baseline electrocardiogram showed a right bundle branch block and possible right ventricular hypertrophy. 2. There is a moderate sized area of myocardial scar in the lateral wall with a defect seen with stress more prominently than with rest. 3. Normal wall motion and wall thickening including the lateral wall with an ejection fraction of 69%. 4. This would indicate that there is no significant scar over the lateral wall. 5. Scan indicates moderate risk for future cardiac events. DATE: 11/21/14 1321 HEART CATH HEART CATH Conclusion This patient has severe chilkoot vessel coronary artery disease including left main disease. His grafts are open but in the graft to the PDA there is disease of the chilkoot PDA with a significant stenosis. The left main has an ostial lesion and it feeds a small circumflex and a small marginal but due to the LAD being totally occluded at the ostium there is no backflow from the graft to the diagonal of the graft to the LAD. The obtuse marginal is also 100% occluded therefore there is no back flow into the circumflex and the other marginal from that graft. The patient's MPI showed lateral wall ischemia and this may be due to the stenosis of the left main and the circumflex. Since this is a protected left main of sorts because of open grafts to the diagonal the LAD and the obtuse marginal we may consider attempting to stent the left main ostium and the mid segment of the LAD. In addition to this the PDA may be able to be stented via the saphenous vein graft to the PDA. However in view of the patient's renal insufficiency I would rather wait 1-2 weeks before bringing the patient back to attempt to do the multi-vessel stenting. This will be discussed with the patient his family and Dr. Bonner DATE: 11/27/14 1601 ASSESSMENT/PLAN ASSESSMENT/PLAN 1. LE edema 2. Ascites, scrotal edema 3. Chronic diastolic dysfunction 4. Multivessel CAD s/p CABG 5. TIM with CKD- ?need for HD 6. SSS s/p PPM 7. DM, II 8. Hypomagnesemia Recommendations CAD appears stable. No anginal symptoms. continue with secondary prevention appears compensated; clinical suspicion for overt HF low. Will check NT Pro BNP and CXR echo to evaluation LV function agree with Lasix gtt for diuresis Obtain cardiac records from Dr. Madsen at consider right heart cath to assess pressures- will discuss with primary cardiology. Continue supportive care. Further recommendations pending diagnostics Problems: WALKER WHITE MD 01/03/17 1720: CARDIAC CONSULT ALLERGIES ALLERGIES: Coded Allergies: Kbjchjt-Dfc-Kyx Reductase Inhibitor (Verified Allergy, Severe, Brain swelling. , 09/18/15) Pt was taking Gabapentin with a Statin and per . "It almost killed him." gabapentin (Verified Allergy, Severe, Brain swelling, 09/18/15) Per pt had Gabapentin with a Statin and it caused brain swelling, "almost killed him." sulfamethoxazole (Verified Allergy, Intermediate, 01/01/17) trimethoprim (Verified Allergy, Intermediate, 01/01/17) ASSESSMENT/PLAN ASSESSMENT/PLAN Pt. seen and examined. 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 81 y.o male presenting with decompensated HF. Continue lasix diuresis. No acute RHC needed. Will follow. Problems: YAHAIRA POTTER APRN Jan 03, 2017 10:50 WALKER WHITE MD Jan 03, 2017 17:20
[2017-01-03 10:55] VITALS: BP 131/72
--- NOTE | 2017-01-03 13:51 | PDOC ---
SUBJECTIVE ROS CKD IV/ anasarca remains swollen and feels bloated CVS: no Orthopnea, no CP RESP: no SOB, min HANSEN GI: no Nausea, no Vomiting : no Dysuria, no Urgency OBJECTIVE Vital Signs Vital Signs Date Time Temp Pulse Resp B/P Pulse Ox O2 Delivery O2 Flow Rate FiO2 01/03/17 09:40 70 118/75 01/03/17 07:25 97.2 20 98 Room Air 97.2 I & 0 Intake and Output 01/03/17 07:00 Intake Total 1760 ml Output Total 1800 ml Balance -40 ml Intake Oral 1760 ml Output Urine Total 1800 ml # Voids 6 # Bowel Movements 1 PHYSICAL EXAM Physical Exam General Appearance: Awake Alert Oriented x 3 In mod Distress Eyes: VIsion Unchanged Conjunctiva Normal EN: No EN Drainage Mucous Memb. moist Neck: no JVD no JVP Supple no Thyromegaly; shorth thick neck CVS: S1 S2 ? Murmur No Gallop No Rub +2 Edema Resp: no Rales no Rhonchi no Acc. Muscle use GI: BAS +ve NO Bruit Non Tender Non Distended; Obese : no CVA tenderness; no Suprapubic Tenderness Scrotum is swollen ASSESSMENT/PLAN Assessment/Plan CKD III/ Iv - await 24hr Urine collection results from PCP office. Current FLuid and E-lyte status does not necessitate emergent need for Dialysis. Low Back pain (Chronic) - stable and tolerable currently. no [place] on US recent Gross Hematuria asso with Good placement - none currently defer plans to URO Anasarca - Lasix gtt (did not start till yest pm), OK lookin Liver on CT, WNL Renal US and previous ECHO - May need Rt Heart Cath to assess RA/RV Pressures ( Known Non-compliance with CPAP as previously recommended for JOSHUA) JOSHUA - non-compliance with CPAP Anemia: (presumably part of Pancytopenia) appears partially Iron def ; may need Epogen, Transfuse as needed. DM -nephropathy - unable to quantify Protein due to ch. Incontinence as OP and now Hematuria HTN: Current BP meds reviewed. See orders for changes. Discussed Plan of Care and prognosis etc. at length with family () COMMENT/RELEVANT DATA Meds Current Medications Medications (Trade) Dose Ordered Sig/Tracy Start Time Stop Time Status Last Admin Dose Admin Acetaminophen (Tylenol) 650 mg PRN TID PRN 01/01/17 05:00 Acetaminophen/ Hydrocodone Bitart 1 tab 1 tab PRN Q4HRS PRN 01/01/17 05:30 01/01/17 15:36 DC 01/01/17 09:53 1 TAB Alprazolam (Xanax) 0.5 mg PRN TID PRN 01/01/17 11:45 Amylase/Lipase/ Protease (Zenpep 5,000) 4 cap TIDWMEALS 01/01/17 12:30 01/03/17 11:22 4 CAP Aspirin (Ecotrin) 81 mg DAILY 01/01/17 12:30 01/03/17 09:38 81 MG Calcitriol (Rocaltrol) 0.25 mcg DAILY 01/01/17 12:30 01/03/17 09:38 0.25 MCG Dextrose 12.5 gm PRN Q15MIN PRN 01/01/17 17:45 01/03/17 07:43 25 GM Dorzolamide/ Timolol (Cosopt) 1 drop BID 01/01/17 12:30 01/03/17 09:48 1 DROP Fentanyl Citrate (Fentanyl 2ml Vial) 25 mcg 1X ONCE 01/01/17 06:00 01/01/17 06:01 DC 01/01/17 05:45 25 MCG Ferrous Sulfate (Feosol) 325 mg QHS 01/01/17 21:00 01/02/17 20:35 325 MG Fish Oil (Fish Oil) 1,000 mg DAILY 01/01/17 12:30 01/03/17 09:38 1,000 MG Folic Acid (Folic Acid) 2 mg TID 01/01/17 14:00 01/03/17 09:39 2 MG Furosemide (Lasix) 20 mg 1X ONCE 01/01/17 05:30 01/01/17 05:31 DC 01/01/17 05:44 20 MG Furosemide 100 mg/ Sodium Chloride 100 ml @ 5 mls/hr CONT PRN 01/01/17 11:15 01/02/17 14:44 5 MLS/HR Gemfibrozil (Lopid) 600 mg BID 01/01/17 12:30 01/03/17 09:38 600 MG Hydralazine HCl (Apresoline) 10 mg PRN Q4HRS PRN 01/01/17 05:00 Insulin Aspart (Novolog) 0-7 UNITS TIDWMEALS 01/02/17 08:00 Insulin Detemir (Levemir) 24 units QHS 01/01/17 21:00 01/02/17 20:46 24 UNITS Latanoprost (Xalatan) 1 drop QHS 01/01/17 21:00 01/02/17 20:36 1 DROP Lisinopril (Prinivil) 2.5 mg DAILY 01/02/17 09:00 01/03/17 09:40 2.5 MG Magnesium Oxide (Magnesium Oxide) 400 mg DAILY 01/02/17 09:00 01/03/17 09:39 400 MG Magnesium Sulfate/ Dextrose (Magnesium Sulfate PREMIX 2GM) 50 ml @ 25 mls/hr PRN DAILY PRN 01/01/17 11:15 Metoprolol Tartrate (Lopressor) 100 mg BID 01/01/17 21:00 01/03/17 09:40 100 MG Oxycodone/ Acetaminophen (Percocet 5/325) 1 tab PRN Q6HRS PRN 01/01/17 13:15 01/03/17 04:09 1 TAB Pantoprazole Sodium (Protonix) 40 mg DAILYAC 01/02/17 07:30 01/03/17 09:39 40 MG Pregabalin (Lyrica) 75 mg BID 01/01/17 12:30 01/03/17 09:38 75 MG Ropinirole HCl (Requip) 1 mg HS 01/01/17 21:00 01/02/17 20:35 1 MG Sennosides (Senna) 8.6 mg BID 01/01/17 12:30 01/02/17 20:35 8.6 MG Spironolactone (Aldactone) 25 mg DAILY 01/01/17 12:30 01/01/17 15:36 DC Tamsulosin HCl (Flomax) 0.8 mg DAILY 01/01/17 12:30 01/03/17 09:40 0.8 MG Vitamin D (Vitamin D3) 1,000 unit DAILY 01/02/17 09:00 01/03/17 09:38 1,000 UNIT Warfarin Sodium (Coumadin Per Physician) 1 each PRN DAILY PRN 01/01/17 12:45 01/02/17 15:40 1 EACH Warfarin Sodium (Coumadin) 2 mg DAILY16 01/01/17 16:00 01/02/17 16:26 2 MG Lab Laboratory Tests Test 01/02/17 16:40 01/02/17 20:42 01/02/17 21:40 01/03/17 05:25 Glucose (Fingerstick) 87mg/dL (70-99) 138mg/dL (70-99) Urine Collection Type Unknown Urine Color Yellow Urine Clarity Clear Urine pH 5.5 Urine Specific [place] 1.015 Urine Protein Tracemg/dL (NEG-TRACE) Urine Glucose (UA) Negativemg/dL (NEG) Urine Ketones (Stick) Negativemg/dL (NEG) Urine Blood Small (NEG) Urine Nitrite Negative (NEG) Urine Bilirubin Negative (NEG) Urine Urobilinogen Dipstick 0.2mg/dL (0.2 mg/dL) Urine Leukocyte Esterase Negative (NEG) Urine RBC 1-2/HPF (0-2) Urine WBC Occ/HPF (0-4) Urine Squamous Epithelial Cells Occ/LPF Urine Bacteria 0/HPF (0-FEW) Urine Hyaline Casts Moderate/HPF Urine Mucus Slight/LPF White Blood Count 3.8x10^3/uL (4.0-11.0) Red Blood Count 3.13x10^6/uL (4.30-5.70) Hemoglobin 10.2g/dL (13.0-17.5) Hematocrit 31.1% (39.0-53.0) Mean Corpuscular Volume 99fL (79-100) Mean Corpuscular Hemoglobin 32pg (25-35) Mean Corpuscular Hemoglobin Concent 33g/dL (31-37) Red Cell Distribution Width 17.0% (11.5-14.5) Platelet Count 78x10^3/uL (140-400) Neutrophils (%) (Auto) 65% (31-73) Lymphocytes (%) (Auto) 22% (24-48) Monocytes (%) (Auto) 12% (0-9) Eosinophils (%) (Auto) 1% (0-3) Basophils (%) (Auto) 1% (0-3) Neutrophils # (Auto) 2.4x10^3uL (1.8-7.7) Lymphocytes # (Auto) 0.8x10^3/uL (1.0-4.8) Monocytes # (Auto) 0.4x10^3/uL (0.0-1.1) Eosinophils # (Auto) 0.0x10^3/uL (0.0-0.7) Basophils # (Auto) 0.0x10^3/uL (0.0-0.2) Sodium Level 143mmol/L (136-145) Potassium Level 4.2mmol/L (3.5-5.1) Chloride Level 111mmol/L (98-107) Carbon Dioxide Level 23mmol/L (21-32) Anion Gap 9 (6-14) Blood Urea Nitrogen 59mg/dL (8-26) Creatinine 2.1mg/dL (0.7-1.3) Estimated GFR (Cockcroft-Gault) 30.5 Glucose Level 53mg/dL (70-99) Calcium Level 8.6mg/dL (8.5-10.1) Phosphorus Level 3.2mg/dL (2.6-4.7) Magnesium Level 1.7mg/dL (1.8-2.4) Albumin 3.1g/dL (3.4-5.0) Test 01/03/17 07:28 01/03/17 07:53 01/03/17 10:58 Glucose (Fingerstick) 49mg/dL (70-99) 158mg/dL (70-99) 161mg/dL (70-99) RICHIE UPTON MD Jan 03, 2017 13:51
[2017-01-03 14:40] VITALS: BP 157/86
--- NOTE | 2017-01-03 14:41 | RAD ---
Indication difficulty breathing. Assess for potential congestive heart failure. A single view chest was obtained and is compared to a study 11/20/2014. Postoperative changes are noted as well as a bipolar cardiac pacing device. There is mild cardiomegaly similar to the previous exam. There is no gross congestive heart failure. A focal infiltrate is not seen. Significant pleural fluid is not present and there is no pneumothorax. IMPRESSION: No acute finding in the chest. Mild cardiomegaly, stable. No evidence for congestive heart failure
[2017-01-03] MEDS ORDERED: SULFUR HEXAFLUORIDE MICROSPHR 25 MG VIAL. IVP ONE ×2 (16:12→16:45)
[2017-01-03] MEDS: WARFARIN 2 MG TABLET. PO SCH (17:02)
[2017-01-03] MEDS: FUROSEMIDE INJ 100 MG in IV NORMAL SALINE 100ML 100 ML IV PRN (18:27)
[2017-01-03 19:00] VITALS: BP 178/79
[2017-01-03] MEDS: LATANOPROST 0.005% OPHTH SOLUTION 2.5ML BOTTLE. OU SCH (20:58)
[2017-01-03] MEDS: rOPINIRole 1 MG TABLET. PO SCH (21:00)
[2017-01-03] MEDS: FERROUS SULFATE 325 MG TABLET PO SCH (21:00)
[2017-01-03] MEDS: INSULIN DETEMIR 300 UNITS/3 ML INSULN.PEN. SQ SCH (21:07)
[2017-01-03 23:24] VITALS: BP 163/70
[2017-01-04] MEDS: OXYCODONE/APAP 5/325 TABLET. PO PRN ×4 (00:39→23:43)
[2017-01-04 02:58] VITALS: BP 158/91
[2017-01-04 04:50] LABS: BASO % 1 % (0-3); EOS % 1 % (0-3); HEMATOCRIT 32.4 % (39.0-53.0); HEMOGLOBIN 10.5 g/dL (13.0-17.5); LYMPH # 0.9 x10^3/uL (1.0-4.8); LYMPH % 23 % (24-48); MEAN CORPUSCULAR HEMOGLOBIN 33 pg (25-35); MEAN CORPUSCULAR HGB CONC 32 g/dL (31-37); MEAN CORPUSCULAR VOLUME 100 fL (79-100); MONO % 12 % (0-9); NEUT % 64 % (31-73); PLATELET COUNT 84 x10^3/uL (140-400); RED BLOOD COUNT 3.23 x10^6/uL (4.30-5.70); RED CELL DISTRIBUTION WIDTH 16.5 % (11.5-14.5); WHITE BLOOD COUNT 3.9 x10^3/uL (4.0-11.0)
[2017-01-04 05:08] LABS: ALBUMIN 3.2 g/dL (3.4-5.0); CALCIUM 8.5 mg/dL (8.5-10.1); CREATININE 2.1 mg/dL (0.7-1.3); GFR 30.5; PHOSPHORUS 3.5 mg/dL (2.6-4.7); POTASSIUM 3.8 mmol/L (3.5-5.1)
[2017-01-04 05:14] LABS: INR 2.3 (0.8-1.1); PROTHROMBIN TIME PATIENT 23.7 SEC (11.7-14.0)
[2017-01-04 07:00] VITALS: BP 132/80
[2017-01-04] MEDS: INSULIN ASPART 300 UNITS/3 ML INSULN.PEN SQ SCH ×6 (07:30→16:56)
[2017-01-04] MEDS: DORZOLAMIDE/TIMOLOL 2%/0.5% OPHTH SOLUTION 10ML BOTTLE. OU SCH ×2 (07:56→20:32)
[2017-01-04] MEDS: LIPASE/PROTEAS/AMYLASE 5/17/27 CAPSULE.DR. PO SCH ×3 (07:56→16:51)
[2017-01-04] MEDS: GEMFIBROZIL 600 MG TABLET. PO SCH ×2 (07:57→20:30)
[2017-01-04] MEDS: CHOLECALCIFEROL (VITAMIN D3) 1,000 UNIT TABLET PO SCH (07:58)
[2017-01-04] MEDS: METOPROLOL TART IMMED RELEASE 25 MG TABLET PO SCH ×2 (07:58→20:31)
[2017-01-04] MEDS: MAGNESIUM OXIDE 400 MG TABLET PO SCH (07:58)
[2017-01-04] MEDS: LISINOPRIL 2.5 MG TABLET PO SCH (07:58)
[2017-01-04] MEDS: ASPIRIN ENTERIC COATED 81 MG TABLET.DR. PO SCH (07:59)
[2017-01-04] MEDS: TAMSULOSIN 0.4 MG CAP.ER.24H. PO SCH (07:59)
[2017-01-04] MEDS: PANTOPRAZOLE 40 MG TABLET. PO SCH (07:59)
[2017-01-04] MEDS: CALCITRIOL 0.25 MCG CAPSULE PO SCH (07:59)
[2017-01-04] MEDS: SENNOSIDES 8.6 MG TABLET PO SCH ×2 (07:59→20:29)
[2017-01-04] MEDS: OMEGA-3 FATTY ACIDS/FISH OIL 1,000 MG CAPSULE. PO SCH (07:59)
[2017-01-04] MEDS: FUROSEMIDE INJ 100 MG in IV NORMAL SALINE 100ML 100 ML IV PRN ×2 (08:40→23:44)
--- NOTE | 2017-01-04 09:20 | CARD ---
APPROVED REPORT EXAM: Two-dimensional and M-mode echocardiogram with Doppler, color Doppler with contrast. Other Information Quality : Technically Limited Rhythm : NSRTechnically limited study due to body habitus. INDICATION Anasarca Echo Enhancing Agent Indication: Endocardial border delineation Agent/Amount Used: Lumason 2mL 2D DIMENSIONS RVDd3.6 (2.9-3.5cm)Left Atrium(2D)3.8 (1.6-4.0cm) IVSd1.2 (0.7-1.1cm)Aortic Root(2D)2.9 (2.0-3.7cm) LVDd4.7 (3.9-5.9cm)LVOT Diameter2.2 (1.8-2.4cm) PWd1.2 (0.7-1.1cm)LVDs3.4 (2.5-4.0cm) FS (%) 27.6 %SV54.9 ml LVEF(%)53.2 (>50%) Aortic Valve AoV Peak Luis Manuel.112.4cm/sAoV VTI22.1cm AO Peak GR.5.1mmHgLVOT VTI 17.84cm AO Mean GR.3mmHg Mitral Valve MV E Ohmqqlwm38.8cm/sMV E Peak Gr.5mmHg MV DECEL [id number] A Lybdvdtv13.4cm/s MV E Mean Gr.2mmHgMV [id number] E/A Ratio1.0MV A [id number] MVA (PHT)3.55cm2 TDI Lateral E' P. V7.92cm/sMedial E' P. V7.92cm/s E/Lateral E'12.3E/Medial E'12.3 Tricuspid Valve TR P. Wirunmvq171ig/sRAP [id number] TR Peak Gr.[id number] LEFT VENTRICLE The left ventricle is normal size. There is normal left ventricular wall thickness. Left ventricle sy stolic function is low normal. EF 50% Grossly normal LV segmental motion. Tissue Doppler imaging reve als moderate left ventricular diastolic dysfunction. RIGHT VENTRICLE The right ventricle is moderately dilated. The right ventricular systolic function is normal. ATRIA The left atrium size is normal. The right atrium size is normal. The interatrial septum is intact wit h no evidence for an atrial septal defect or patent foramen ovale as noted on 2-D or Doppler imaging. AORTIC VALVE The aortic valve is not well visualized. Doppler and Color Flow revealed no significant aortic regurg itation. There is no significant aortic valvular stenosis. MITRAL VALVE The mitral valve is normal in structure and function. There is no mitral valve stenosis. Doppler and Color Flow revealed trace to mild mitral regurgitation. TRICUSPID VALVE The tricuspid valve is not well visualized. Doppler and Color Flow revealed mild tricuspid regurgitat ion. The PA pressure was estimated at 33 mmHg. There is no tricuspid valve stenosis. PULMONIC VALVE The pulmonic valve is not well visualized. Doppler and Color Flow revealed no pulmonic valvular regur gitation. There is no pulmonic valvular stenosis. GREAT VESSELS The aortic root is normal in size. The IVC is normal in size and collapses >50% with inspiration. PERICARDIAL EFFUSION There is no evidence of significant pericardial effusion. Critical Notification Critical Value: No <Conclusion> Left ventricle systolic function is low normal. EF 50% Grossly normal LV segmental motion. The right ventricle is moderately dilated. Doppler and Color Flow revealed mild tricuspid regurgitation. The PA pressure was estimated at 33 mmH g. Technically difficult study
--- NOTE | 2017-01-04 09:48 | PDOC ---
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 - still swollen but better CVS: no Orthopnea, no CP RESP: no SOB, no HANSEN GI: no Nausea, no Vomiting : no Dysuria, no Urgency OBJECTIVE Vital Signs Vital Signs Date Time Temp Pulse Resp B/P Pulse Ox O2 Delivery O2 Flow Rate FiO2 01/04/17 07:58 69 132/80 01/04/17 07:00 97.4 18 99 Room Air 97.4 I & 0 Intake and Output 01/04/17 07:00 Intake Total 900 ml Output Total 1650 ml Balance -750 ml Intake Oral 840 ml IV Total 60 ml Output Urine Total 1650 ml # Voids 10 # Bowel Movements 2 Has missed some UO recordings PHYSICAL EXAM Physical Exam General Appearance: Awake Alert Oriented x 3 In mod Distress Eyes: VIsion Unchanged Conjunctiva Normal EN: No EN Drainage Mucous Memb. moist Neck: no JVD no JVP Supple no Thyromegaly; short thick neck CVS: S1 S2 ? Murmur No Gallop No Rub +2 Edema Resp: no Rales no Rhonchi no Acc. Muscle use GI: BAS +ve NO Bruit Non Tender Non Distended; Obese : no CVA tenderness; no Suprapubic Tenderness Scrotum is still swollen ASSESSMENT/PLAN Assessment/Plan CKD Iv - 24hr Urine collection shows CrCl of 27cc/min. Current FLuid and E- lyte status does not necessitate emergent need for Dialysis. recent Gross Hematuria asso with Good placement - none currently defer plans to URO - suspect the high proteinuria was related to blood in Urine Anasarca - ECHO noted. not responding well to Lasix gtt just yet , Albumin is adequate for nwo. OK lookin Liver on CT, WNL Renal US and previous ECHO - May need Rt Heart Cath to assess RA/RV Pressures (Known Non-compliance with CPAP as previously recommended for JOSHUA) - await Cardiology plan. HD may be needed to manage fluids in short run - residential plans for [employer] have been discussed with pt and and they would like PD whereby Ascites may be better managed too JOSHUA - non-compliance with CPAP Anemia: (presumably part of Pancytopenia) appears partially Iron def ; may need Epogen, Transfuse as needed. Hgb trending up wards with hemoconcentration Persistent pancytopenia - consult Heme/ Onc DM -nephropathy - unable to quantify Protein due to ch. Incontinence as OP and now ^ed due to previous Hematuria HTN: Current BP meds reviewed. See orders for changes. Discussed Plan of Care and prognosis etc. at length with family () COMMENT/RELEVANT DATA Meds Current Medications Medications (Trade) Dose Ordered Sig/Tracy Start Time Stop Time Status Last Admin Dose Admin Acetaminophen (Tylenol) 650 mg PRN TID PRN 01/01/17 05:00 01/04/17 03:20 650 MG Acetaminophen/ Hydrocodone Bitart 1 tab 1 tab PRN Q4HRS PRN 01/01/17 05:30 01/01/17 15:36 DC 01/01/17 09:53 1 TAB Alprazolam (Xanax) 0.5 mg PRN TID PRN 01/01/17 11:45 01/04/17 03:20 0.5 MG Amylase/Lipase/ Protease (Zenpep 5,000) 4 cap TIDWMEALS 01/01/17 12:30 01/04/17 07:56 4 CAP Aspirin (Ecotrin) 81 mg DAILY 01/01/17 12:30 01/04/17 07:59 81 MG Calcitriol (Rocaltrol) 0.25 mcg DAILY 01/01/17 12:30 01/04/17 07:59 0.25 MCG Dextrose 12.5 gm PRN Q15MIN PRN 01/01/17 17:45 01/03/17 07:43 25 GM Dorzolamide/ Timolol (Cosopt) 1 drop BID 01/01/17 12:30 01/04/17 07:56 1 DROP Fentanyl Citrate (Fentanyl 2ml Vial) 25 mcg 1X ONCE 01/01/17 06:00 01/01/17 06:01 DC 01/01/17 05:45 25 MCG Ferrous Sulfate (Feosol) 325 mg QHS 01/01/17 21:00 01/03/17 21:00 325 MG Fish Oil (Fish Oil) 1,000 mg DAILY 01/01/17 12:30 01/04/17 07:59 1,000 MG Folic Acid (Folic Acid) 2 mg TID 01/01/17 14:00 01/03/17 21:00 2 MG Furosemide (Lasix) 20 mg 1X ONCE 01/01/17 05:30 01/01/17 05:31 DC 01/01/17 05:44 20 MG Furosemide 100 mg/ Sodium Chloride 100 ml @ 10 mls/hr CONT PRN 01/01/17 11:15 01/04/17 08:40 10 MLS/HR Gemfibrozil (Lopid) 600 mg BID 01/01/17 12:30 01/04/17 07:57 600 MG Hydralazine HCl (Apresoline) 10 mg PRN Q4HRS PRN 01/01/17 05:00 Insulin Aspart (Novolog) 0-7 UNITS TIDWMEALS 01/02/17 08:00 Insulin Detemir (Levemir) 24 units QHS 01/01/17 21:00 01/03/17 21:07 24 UNITS Latanoprost (Xalatan) 1 drop QHS 01/01/17 21:00 01/03/17 20:58 1 DROP Lisinopril (Prinivil) 2.5 mg DAILY 01/02/17 09:00 01/04/17 07:58 2.5 MG Magnesium Oxide (Magnesium Oxide) 400 mg DAILY 01/02/17 09:00 01/04/17 07:58 400 MG Magnesium Sulfate/ Dextrose (Magnesium Sulfate PREMIX 2GM) 50 ml @ 25 mls/hr PRN DAILY PRN 01/01/17 11:15 Metoprolol Tartrate (Lopressor) 100 mg BID 01/01/17 21:00 01/04/17 07:58 100 MG Oxycodone/ Acetaminophen (Percocet 5/325) 1 tab PRN Q6HRS PRN 01/01/17 13:15 01/04/17 00:39 1 TAB Pantoprazole Sodium (Protonix) 40 mg DAILYAC 01/02/17 07:30 01/04/17 07:59 40 MG Pregabalin (Lyrica) 75 mg BID 01/01/17 12:30 01/03/17 22:00 75 MG Ropinirole HCl (Requip) 1 mg HS 01/01/17 21:00 01/03/17 21:00 1 MG Sennosides (Senna) 8.6 mg BID 01/01/17 12:30 01/04/17 07:59 8.6 MG Spironolactone (Aldactone) 25 mg DAILY 01/01/17 12:30 01/01/17 15:36 DC Sulfur Hexafluoride Microspheres (Lumason) 25 mg 1X ONCE 01/03/17 16:45 01/03/17 16:49 DC 01/03/17 16:46 25 MG Tamsulosin HCl (Flomax) 0.8 mg DAILY 01/01/17 12:30 01/04/17 07:59 0.8 MG Vitamin D (Vitamin D3) 1,000 unit DAILY 01/02/17 09:00 01/04/17 07:58 1,000 UNIT Warfarin Sodium (Coumadin Per Physician) 1 each PRN DAILY PRN 01/01/17 12:45 01/02/17 15:40 1 EACH Warfarin Sodium (Coumadin) 2 mg DAILY16 01/01/17 16:00 01/03/17 17:02 2 MG Lab Laboratory Tests Test 01/03/17 10:58 01/03/17 16:52 01/03/17 20:36 01/04/17 03:50 Glucose (Fingerstick) 161mg/dL (70-99) 93mg/dL (70-99) 249mg/dL (70-99) White Blood Count 3.9x10^3/uL (4.0-11.0) Red Blood Count 3.23x10^6/uL (4.30-5.70) Hemoglobin 10.5g/dL (13.0-17.5) Hematocrit 32.4% (39.0-53.0) Mean Corpuscular Volume 100fL (79-100) Mean Corpuscular Hemoglobin 33pg (25-35) Mean Corpuscular Hemoglobin Concent 32g/dL (31-37) Red Cell Distribution Width 16.5% (11.5-14.5) Platelet Count 84x10^3/uL (140-400) Neutrophils (%) (Auto) 64% (31-73) Lymphocytes (%) (Auto) 23% (24-48) Monocytes (%) (Auto) 12% (0-9) Eosinophils (%) (Auto) 1% (0-3) Basophils (%) (Auto) 1% (0-3) Neutrophils # (Auto) 2.5x10^3uL (1.8-7.7) Lymphocytes # (Auto) 0.9x10^3/uL (1.0-4.8) Monocytes # (Auto) 0.5x10^3/uL (0.0-1.1) Eosinophils # (Auto) 0.0x10^3/uL (0.0-0.7) Basophils # (Auto) 0.0x10^3/uL (0.0-0.2) Prothrombin Time 23.7SEC (11.7-14.0) Prothromb Time International Ratio 2.3 (0.8-1.1) Sodium Level 144mmol/L (136-145) Potassium Level 3.8mmol/L (3.5-5.1) Chloride Level 107mmol/L (98-107) Carbon Dioxide Level 27mmol/L (21-32) Anion Gap 10 (6-14) Blood Urea Nitrogen 57mg/dL (8-26) Creatinine 2.1mg/dL (0.7-1.3) Estimated GFR (Cockcroft-Gault) 30.5 Glucose Level 177mg/dL (70-99) Calcium Level 8.5mg/dL (8.5-10.1) Phosphorus Level 3.5mg/dL (2.6-4.7) Magnesium Level 1.6mg/dL (1.8-2.4) Albumin 3.2g/dL (3.4-5.0) Test 01/04/17 07:37 Glucose (Fingerstick) 74mg/dL (70-99) RICHIE UPTON MD Jan 04, 2017 09:48
[2017-01-04] MEDS: FOLIC ACID 1 MG TABLET PO SCH ×3 (10:39→20:30)
[2017-01-04 10:42] VITALS: BP 136/79
--- NOTE | 2017-01-04 10:42 | PDOC ---
PROGRESS NOTES Chief Complaint Chief Complaint LATE ENTRY, pt seen 01/03 Fluid overload ASSESSMENT AND PLAN: 1. Fluid overload: on IV lasix. Dr Grant following. cardiology consult requested for consideration of R heart cath 2. CKD4: baseline creat 1.6-2. at upper end currently 3. Anemia: macrocytic. prob related to CKD; iron studies c/w chronic dz (low TIBC, high ferritin). B12/folate pending 4. CAD: no acute issues save as above 5. PAF: currently NSR 6. OAC: on coumadin, therapeutic INR 7. HTN: well controlled 8. HLD: on statin 9. DM: well controlled on current regimen 10. OA: chronic LBP. continue home regimen 11. Prophylaxis: heparin, PPI History of Present Illness History of Present Illness renal following lasix gtt 5 Vitals Vitals Vital Signs Date Time Temp Pulse Resp B/P Pulse Ox O2 Delivery O2 Flow Rate FiO2 01/04/17 07:58 69 132/80 01/04/17 07:00 97.4 18 99 Room Air 97.4 Physical Exam General: Alert, Oriented X3, Cooperative, No acute distress Heart: Regular rate, Normal S1, Normal S2 Lungs: Clear Abdomen: Soft, Other (acsites ) Extremities: Other (chronic venous stasis changes to bilateral LE. 2+ bilateral LE edema ) Skin: No breakdown, No significant lesion Labs LABS Laboratory Tests Test 01/03/17 10:58 01/03/17 16:52 01/03/17 20:36 01/04/17 03:50 Glucose (Fingerstick) 161mg/dL (70-99) 93mg/dL (70-99) 249mg/dL (70-99) White Blood Count 3.9x10^3/uL (4.0-11.0) Red Blood Count 3.23x10^6/uL (4.30-5.70) Hemoglobin 10.5g/dL (13.0-17.5) Hematocrit 32.4% (39.0-53.0) Mean Corpuscular Volume 100fL (79-100) Mean Corpuscular Hemoglobin 33pg (25-35) Mean Corpuscular Hemoglobin Concent 32g/dL (31-37) Red Cell Distribution Width 16.5% (11.5-14.5) Platelet Count 84x10^3/uL (140-400) Neutrophils (%) (Auto) 64% (31-73) Lymphocytes (%) (Auto) 23% (24-48) Monocytes (%) (Auto) 12% (0-9) Eosinophils (%) (Auto) 1% (0-3) Basophils (%) (Auto) 1% (0-3) Neutrophils # (Auto) 2.5x10^3uL (1.8-7.7) Lymphocytes # (Auto) 0.9x10^3/uL (1.0-4.8) Monocytes # (Auto) 0.5x10^3/uL (0.0-1.1) Eosinophils # (Auto) 0.0x10^3/uL (0.0-0.7) Basophils # (Auto) 0.0x10^3/uL (0.0-0.2) Prothrombin Time 23.7SEC (11.7-14.0) Prothromb Time International Ratio 2.3 (0.8-1.1) Sodium Level 144mmol/L (136-145) Potassium Level 3.8mmol/L (3.5-5.1) Chloride Level 107mmol/L (98-107) Carbon Dioxide Level 27mmol/L (21-32) Anion Gap 10 (6-14) Blood Urea Nitrogen 57mg/dL (8-26) Creatinine 2.1mg/dL (0.7-1.3) Estimated GFR (Cockcroft-Gault) 30.5 Glucose Level 177mg/dL (70-99) Calcium Level 8.5mg/dL (8.5-10.1) Phosphorus Level 3.5mg/dL (2.6-4.7) Magnesium Level 1.6mg/dL (1.8-2.4) Albumin 3.2g/dL (3.4-5.0) Test 01/04/17 07:37 Glucose (Fingerstick) 74mg/dL (70-99) Review of Systems Review of Systems still dyspneic, LE edema, weakness Assessment and Plan Assessmemt and Plan cont current Renal following, consider HD if unable to diurese Problems: Comment Review of Relevant I have reviewed the following items sarah (where applicable) has been applied. Labs Laboratory Tests Test 01/02/17 10:54 01/02/17 16:40 01/02/17 20:42 01/02/17 21:40 Glucose (Fingerstick) 105mg/dL (70-99) 87mg/dL (70-99) 138mg/dL (70-99) Urine Collection Type Unknown Urine Color Yellow Urine Clarity Clear Urine pH 5.5 Urine Specific Hegins 1.015 Urine Protein Tracemg/dL (NEG-TRACE) Urine Glucose (UA) Negativemg/dL (NEG) Urine Ketones (Stick) Negativemg/dL (NEG) Urine Blood Small (NEG) Urine Nitrite Negative (NEG) Urine Bilirubin Negative (NEG) Urine Urobilinogen Dipstick 0.2mg/dL (0.2 mg/dL) Urine Leukocyte Esterase Negative (NEG) Urine RBC 1-2/HPF (0-2) Urine WBC Occ/HPF (0-4) Urine Squamous Epithelial Cells Occ/LPF Urine Bacteria 0/HPF (0-FEW) Urine Hyaline Casts Moderate/HPF Urine Mucus Slight/LPF Test 01/03/17 05:25 01/03/17 07:28 01/03/17 07:53 01/03/17 10:58 White Blood Count 3.8x10^3/uL (4.0-11.0) Red Blood Count 3.13x10^6/uL (4.30-5.70) Hemoglobin 10.2g/dL (13.0-17.5) Hematocrit 31.1% (39.0-53.0) Mean Corpuscular Volume 99fL (79-100) Mean Corpuscular Hemoglobin 32pg (25-35) Mean Corpuscular Hemoglobin Concent 33g/dL (31-37) Red Cell Distribution Width 17.0% (11.5-14.5) Platelet Count 78x10^3/uL (140-400) Neutrophils (%) (Auto) 65% (31-73) Lymphocytes (%) (Auto) 22% (24-48) Monocytes (%) (Auto) 12% (0-9) Eosinophils (%) (Auto) 1% (0-3) Basophils (%) (Auto) 1% (0-3) Neutrophils # (Auto) 2.4x10^3uL (1.8-7.7) Lymphocytes # (Auto) 0.8x10^3/uL (1.0-4.8) Monocytes # (Auto) 0.4x10^3/uL (0.0-1.1) Eosinophils # (Auto) 0.0x10^3/uL (0.0-0.7) Basophils # (Auto) 0.0x10^3/uL (0.0-0.2) Sodium Level 143mmol/L (136-145) Potassium Level 4.2mmol/L (3.5-5.1) Chloride Level 111mmol/L (98-107) Carbon Dioxide Level 23mmol/L (21-32) Anion Gap 9 (6-14) Blood Urea Nitrogen 59mg/dL (8-26) Creatinine 2.1mg/dL (0.7-1.3) Estimated GFR (Cockcroft-Gault) 30.5 Glucose Level 53mg/dL (70-99) Calcium Level 8.6mg/dL (8.5-10.1) Phosphorus Level 3.2mg/dL (2.6-4.7) Magnesium Level 1.7mg/dL (1.8-2.4) NL-Fln-K-Type Natriuretic Peptide 1210pg/mL (0-449) Albumin 3.1g/dL (3.4-5.0) Glucose (Fingerstick) 49mg/dL (70-99) 158mg/dL (70-99) 161mg/dL (70-99) Test 01/03/17 16:52 01/03/17 20:36 01/04/17 03:50 01/04/17 07:37 Glucose (Fingerstick) 93mg/dL (70-99) 249mg/dL (70-99) 74mg/dL (70-99) White Blood Count 3.9x10^3/uL (4.0-11.0) Red Blood Count 3.23x10^6/uL (4.30-5.70) Hemoglobin 10.5g/dL (13.0-17.5) Hematocrit 32.4% (39.0-53.0) Mean Corpuscular Volume 100fL (79-100) Mean Corpuscular Hemoglobin 33pg (25-35) Mean Corpuscular Hemoglobin Concent 32g/dL (31-37) Red Cell Distribution Width 16.5% (11.5-14.5) Platelet Count 84x10^3/uL (140-400) Neutrophils (%) (Auto) 64% (31-73) Lymphocytes (%) (Auto) 23% (24-48) Monocytes (%) (Auto) 12% (0-9) Eosinophils (%) (Auto) 1% (0-3) Basophils (%) (Auto) 1% (0-3) Neutrophils # (Auto) 2.5x10^3uL (1.8-7.7) Lymphocytes # (Auto) 0.9x10^3/uL (1.0-4.8) Monocytes # (Auto) 0.5x10^3/uL (0.0-1.1) Eosinophils # (Auto) 0.0x10^3/uL (0.0-0.7) Basophils # (Auto) 0.0x10^3/uL (0.0-0.2) Prothrombin Time 23.7SEC (11.7-14.0) Prothromb Time International Ratio 2.3 (0.8-1.1) Sodium Level 144mmol/L (136-145) Potassium Level 3.8mmol/L (3.5-5.1) Chloride Level 107mmol/L (98-107) Carbon Dioxide Level 27mmol/L (21-32) Anion Gap 10 (6-14) Blood Urea Nitrogen 57mg/dL (8-26) Creatinine 2.1mg/dL (0.7-1.3) Estimated GFR (Cockcroft-Gault) 30.5 Glucose Level 177mg/dL (70-99) Calcium Level 8.5mg/dL (8.5-10.1) Phosphorus Level 3.5mg/dL (2.6-4.7) Magnesium Level 1.6mg/dL (1.8-2.4) Albumin 3.2g/dL (3.4-5.0) Laboratory Tests Test 01/03/17 10:58 01/03/17 16:52 01/03/17 20:36 01/04/17 03:50 Glucose (Fingerstick) 161mg/dL (70-99) 93mg/dL (70-99) 249mg/dL (70-99) White Blood Count 3.9x10^3/uL (4.0-11.0) Red Blood Count 3.23x10^6/uL (4.30-5.70) Hemoglobin 10.5g/dL (13.0-17.5) Hematocrit 32.4% (39.0-53.0) Mean Corpuscular Volume 100fL (79-100) Mean Corpuscular Hemoglobin 33pg (25-35) Mean Corpuscular Hemoglobin Concent 32g/dL (31-37) Red Cell Distribution Width 16.5% (11.5-14.5) Platelet Count 84x10^3/uL (140-400) Neutrophils (%) (Auto) 64% (31-73) Lymphocytes (%) (Auto) 23% (24-48) Monocytes (%) (Auto) 12% (0-9) Eosinophils (%) (Auto) 1% (0-3) Basophils (%) (Auto) 1% (0-3) Neutrophils # (Auto) 2.5x10^3uL (1.8-7.7) Lymphocytes # (Auto) 0.9x10^3/uL (1.0-4.8) Monocytes # (Auto) 0.5x10^3/uL (0.0-1.1) Eosinophils # (Auto) 0.0x10^3/uL (0.0-0.7) Basophils # (Auto) 0.0x10^3/uL (0.0-0.2) Prothrombin Time 23.7SEC (11.7-14.0) Prothromb Time International Ratio 2.3 (0.8-1.1) Sodium Level 144mmol/L (136-145) Potassium Level 3.8mmol/L (3.5-5.1) Chloride Level 107mmol/L (98-107) Carbon Dioxide Level 27mmol/L (21-32) Anion Gap 10 (6-14) Blood Urea Nitrogen 57mg/dL (8-26) Creatinine 2.1mg/dL (0.7-1.3) Estimated GFR (Cockcroft-Gault) 30.5 Glucose Level 177mg/dL (70-99) Calcium Level 8.5mg/dL (8.5-10.1) Phosphorus Level 3.5mg/dL (2.6-4.7) Magnesium Level 1.6mg/dL (1.8-2.4) Albumin 3.2g/dL (3.4-5.0) Test 01/04/17 07:37 Glucose (Fingerstick) 74mg/dL (70-99) Medications Current Medications Hydralazine HCl (Apresoline) 10 mg PRN Q4HRS PRN IVP ELEVATED BP, SEE COMMENTS ; Start 01/01/17 at 05:00 Furosemide (Lasix) 20 mg 1X ONCE IVP Last administered on 01/01/17 05:44; Start 01/01/17 at 05:30; Stop 01/01/17 at 05:31; Status DC Acetaminophen (Tylenol) 650 mg PRN TID PRN PO MILD PAIN / TEMP Last administered on 01/04/17 03:20; Start 01/01/17 at 05:00 Fentanyl Citrate (Fentanyl 2ml Vial) 25 mcg 1X ONCE IV Last administered on 05:45; Start 01/01/17 at 06:00; Stop 01/01/17 at 06:01; Status DC Acetaminophen/ Hydrocodone Bitart 1 tab 1 tab PRN Q4HRS PRN PO MODERATE PAIN Last administered on 01/01/17 09:53; Start 01/01/17 at 05:30; Stop 01/01/17 at 15: 36; Status DC Furosemide 100 mg/ Sodium Chloride 100 ml @ 10 mls/hr CONT PRN IV SEE I/O RECORD Last administered on 01/04/17 08:40; Start 01/01/17 at 11:15 Magnesium Sulfate/ Dextrose (Magnesium Sulfate PREMIX 2GM) 50 ml @ 25 mls/hr PRN DAILY PRN IV for Mag < 1.7 on am labs; Start 01/01/17 at 11:15 Alprazolam (Xanax) 0.5 mg PRN TID PRN PO anxiety Last administered on 01/04/17 03:20; Start 01/01/17 at 11:45 Aspirin (Ecotrin) 81 mg DAILY PO Last administered on 01/04/17 07:59; Start 01/01/17 at 12:30 Calcitriol (Rocaltrol) 0.25 mcg DAILY PO Last administered on 01/04/17 07:59; Start 01/01/17 at 12:30 Dorzolamide/ Timolol (Cosopt) 1 drop BID OU Last administered on 01/04/17 07:56 ; Start 01/01/17 at 12:30 Ferrous Sulfate (Feosol) 325 mg QHS PO Last administered on 01/03/17 21:00; Start 01/01/17 at 21:00 Folic Acid (Folic Acid) 2 mg TID PO Last administered on 01/03/17 21:00; Start 01/01/17 at 14:00 Gemfibrozil (Lopid) 600 mg BID PO Last administered on 01/04/17 07:57; Start at 12:30 Latanoprost (Xalatan) 1 drop QHS OU Last administered on 01/03/17 20:58; Start 01/01/17 at 21:00 Amylase/Lipase/ Protease (Zenpep 5,000) 4 cap TIDWMEALS PO Last administered on 01/04/17 07:56; Start 01/01/17 at 12:30 Metoprolol Tartrate (Lopressor) 25 mg DAILY PO ; Start 01/01/17 at 12:30; Stop at 15:36; Status DC Fish Oil (Fish Oil) 1,000 mg DAILY PO Last administered on 01/04/17 07:59; Start 01/01/17 at 12:30 Pregabalin (Lyrica) 75 mg BID PO Last administered on 01/03/17 22:00; Start 01/01/17 at 12:30 Ropinirole HCl (Requip) 1 mg HS PO Last administered on 01/03/17 21:00; Start 01/01/17 at 21:00 Sennosides (Senna) 8.6 mg BID PO Last administered on 01/04/17 07:59; Start 01/01/17 at 12:30 Spironolactone (Aldactone) 25 mg DAILY PO ; Start 01/01/17 at 12:30; Stop at 15:36; Status DC Tamsulosin HCl (Flomax) 0.8 mg DAILY PO Last administered on 01/04/17 07:59; Start 01/01/17 at 12:30 Warfarin Sodium (Coumadin) 4 mg DAILY16 PO ; Start 01/01/17 at 16:00; Stop at 16:00; Status DC Insulin Detemir (Levemir) 24 units QHS SQ Last administered on 01/03/17 21:07; Start 01/01/17 at 21:00 Insulin Aspart (Novolog) 8 units TIDBFRMEAL SQ Last administered on 01/03/17 12 :08; Start 01/01/17 at 16:30 Pantoprazole Sodium (Protonix) 40 mg DAILYAC PO ; Start 01/01/17 at 12:30; Stop 01/01/17 at 15:36; Status DC Warfarin Sodium (Coumadin Per Physician) 1 each PRN DAILY PRN MC SEE COMMENTS Last administered on 01/02/17 15:40; Start 01/01/17 at 12:45 Oxycodone/ Acetaminophen (Percocet 5/325) 1 tab PRN Q6HRS PRN PO PAIN Last administered on 01/04/17 00:39; Start 01/01/17 at 13:15 Magnesium Oxide (Magnesium Oxide) 400 mg DAILY PO Last administered on 07:58; Start 01/02/17 at 09:00 Metoprolol Tartrate (Lopressor) 100 mg BID PO Last administered on 01/04/17 07: 58; Start 01/01/17 at 21:00 Vitamin D (Vitamin D3) 1,000 unit DAILY PO Last administered on 01/04/17 07:58 ; Start 01/02/17 at 09:00 Warfarin Sodium (Coumadin) 2 mg DAILY16 PO Last administered on 01/03/17 17:02 ; Start 01/01/17 at 16:00 Pantoprazole Sodium (Protonix) 40 mg DAILYAC PO Last administered on 01/04/17 07:59; Start 01/02/17 at 07:30 Lisinopril (Prinivil) 2.5 mg DAILY PO Last administered on 01/04/17 07:58; Start 01/02/17 at 09:00 Insulin Aspart (Novolog) 0-7 UNITS TIDWMEALS SQ ; Start 01/02/17 at 08:00 Dextrose 12.5 gm PRN Q15MIN PRN IV SEE COMMENTS Last administered on 01/03/17 07:43; Start 01/01/17 at 17:45 Sulfur Hexafluoride Microspheres (Lumason) 25 mg STK-MED ONCE IVP ; Start at 16:12; Stop 01/03/17 at 16:13; Status DC Sulfur Hexafluoride Microspheres (Lumason) 25 mg 1X ONCE IVP Last administered on 01/03/17t 16:46; Start 01/03/17 at 16:45; Stop 01/03/17 at 16:49; Status DC Active Scripts Active Reported Aspir 81 (Aspirin) 81 Mg Tablet.dr 1 Tab PO DAILY Senokot (Sennosides) 8.6 Mg Tablet 3 Tab PO BID Morphine Sulfate Er (Morphine Sulfate) 60 Mg Cap.er.pel 60 Mg PO Metoprolol Tartrate 50 Mg Tablet 0.5 Tab PO DAILY Latanoprost 2.5 Ml Drops 1 Drop EACHEYE QHS Gemfibrozil 600 Mg Tablet 1 Tab PO BID Dorzolamide-Timolol Eye Drops (Dorzolamide Hcl/Timolol Maleat) 10 Ml Drops 1 Drop RIGHTEYE BID Lyrica (Pregabalin) 75 Mg Capsule 1 Cap PO BID Alprazolam 0.5 Mg Tablet 1 Tab PO TID Warfarin Sodium 4 Mg Tablet 1 Tab PO DAILY Fish Oil 1,000 Mg Capsule (English-3 Fatty Acids/Fish Oil) 1 Each Capsule 4 Each PO DAILY Pancrelipase Dr 5,000 Unit Cap (Lipase/Protease/Amylase) 1 Each Capsule.dr 4 Each PO Prilosec Otc (Omeprazole Magnesium) 20 Mg Tablet.dr 20 Mg PO DAILY Lyrica (Pregabalin) 25 Mg Capsule 50 Mg PO TID 30 Days Gemfibrozil 600 Mg Tablet 600 Mg PO BID Spironolactone 25 Mg Tablet 25 Mg PO DAILY Calcitriol 0.25 Mcg Capsule 0.25 Mcg PO DAILY Lantus (Insulin Glargine,Hum.rec.anlog) 100 Unit/1 Ml Vial 24 Unit SQ HS Humalog (Insulin Lispro) 100 Unit/1 Ml Vial 8 Unit SQ TID Folic Acid 1 Mg Tablet 2 Mg PO TID Ferosul (Ferrous Sulfate) 325 Mg Tablet 325 Mg PO Ropinirole Hcl 1 Mg Tablet 1 Mg PO HS Tamsulosin Hcl 0.4 Mg Cap.er.24h 0.8 Mg PO DAILY Travatan Z (Travoprost) 5 Ml Drops 5 Ml OP Vitals/I & O Vital Sign - Last 24 Hours 01/03/17 01/03/17 01/03/17 2/6/17 10:55 14:40 17:02 19:00 Temp 97.9 97.5 98.0 97.9 97.5 98.0 Pulse 75 70 70 Resp 20 20 18 B/P 131/72 157/86 178/79 Pulse Ox 98 100 100 97 O2 Delivery Room Air Room Air Room Air Room Air 01/03/17 01/03/17 01/03/17 01/04/17 19:14 21:01 23:24 00:39 Temp 98.8 98.8 Pulse 70 71 Resp 18 20 B/P 157/86 163/70 Pulse Ox 100 95 O2 Delivery Room Air Room Air Room Air 01/04/17 01/04/17 01/04/17 01/04/17 02:58 07:00 07:58 07:58 Temp 97.3 97.4 97.3 97.4 Pulse 72 69 69 69 Resp 18 18 B/P 158/91 132/80 132/80 132/80 Pulse Ox 97 99 O2 Delivery Room Air Room Air Intake and Output 01/03/17 01/03/17 01/04/17 15:00 23:00 07:00 Intake Total 600 ml 180 ml 120 ml Output Total 200 ml 1450 ml Balance 600 ml -20 ml -1330 ml KATHIE WASHBURN MD Jan 04, 2017 10:41
--- NOTE | 2017-01-04 11:06 | PDOC ---
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 Less scrotal swelling) Vitals Vitals Vital Signs Date Time Temp Pulse Resp B/P Pulse Ox O2 Delivery O2 Flow Rate FiO2 01/04/17 10:42 97.4 70 18 136/79 99 Room Air 97.4 Weight Weight [ ] Input and Output Intake and Output Intake and Output 01/04/17 07:00 Intake Total 900 ml Output Total 1650 ml Balance -750 ml Intake Oral 840 ml IV Total 60 ml Output Urine Total 1650 ml # Voids 10 # Bowel Movements 2 Laboratory Labs Laboratory Tests Test 01/03/17 10:58 01/03/17 16:52 01/03/17 20:36 01/04/17 03:50 Glucose (Fingerstick) 161mg/dL (70-99) 93mg/dL (70-99) 249mg/dL (70-99) White Blood Count 3.9x10^3/uL (4.0-11.0) Red Blood Count 3.23x10^6/uL (4.30-5.70) Hemoglobin 10.5g/dL (13.0-17.5) Hematocrit 32.4% (39.0-53.0) Mean Corpuscular Volume 100fL (79-100) Mean Corpuscular Hemoglobin 33pg (25-35) Mean Corpuscular Hemoglobin Concent 32g/dL (31-37) Red Cell Distribution Width 16.5% (11.5-14.5) Platelet Count 84x10^3/uL (140-400) Neutrophils (%) (Auto) 64% (31-73) Lymphocytes (%) (Auto) 23% (24-48) Monocytes (%) (Auto) 12% (0-9) Eosinophils (%) (Auto) 1% (0-3) Basophils (%) (Auto) 1% (0-3) Neutrophils # (Auto) 2.5x10^3uL (1.8-7.7) Lymphocytes # (Auto) 0.9x10^3/uL (1.0-4.8) Monocytes # (Auto) 0.5x10^3/uL (0.0-1.1) Eosinophils # (Auto) 0.0x10^3/uL (0.0-0.7) Basophils # (Auto) 0.0x10^3/uL (0.0-0.2) Prothrombin Time 23.7SEC (11.7-14.0) Prothromb Time International Ratio 2.3 (0.8-1.1) Sodium Level 144mmol/L (136-145) Potassium Level 3.8mmol/L (3.5-5.1) Chloride Level 107mmol/L (98-107) Carbon Dioxide Level 27mmol/L (21-32) Anion Gap 10 (6-14) Blood Urea Nitrogen 57mg/dL (8-26) Creatinine 2.1mg/dL (0.7-1.3) Estimated GFR (Cockcroft-Gault) 30.5 Glucose Level 177mg/dL (70-99) Calcium Level 8.5mg/dL (8.5-10.1) Phosphorus Level 3.5mg/dL (2.6-4.7) Magnesium Level 1.6mg/dL (1.8-2.4) Albumin 3.2g/dL (3.4-5.0) Test 01/04/17 07:37 Glucose (Fingerstick) 74mg/dL (70-99) Physical Exam HEENT: Neck Supple W Full Motion Chest: Symmetric LUNGS: Clear to Auscultation Heart: S1S2, RRR, other (tele" 100% v-paced ) Abdomen: Soft N/T, Other (scrotal edema) Extremities: Other (1-2+ bialteral LE edema with chronic venous stasis changes) Neurology: alert, oriented, follow commands Assessment Assessment 1. LE edema 2. Ascites, scrotal edema 3. Decompensated HF 4. 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 SSS s/p PPM 7. PAFIB; maintaining SR 8. Hypomagnesemia Recommendations Echo with low-normal LV function and moderate RV dilation continue fluid offloading with Lasix infusion replace Mg WALKER WHITE MD 01/04/17 4626: CARDIO Progress Notes Plan Plan Patient seen and examined. Agree with above nurse practitioner note. Continue Lasix drip. Patient feels better and his lower extremity edema appears to be improved. We will follow along closely. YAHAIRA POTTER APRN Jan 04, 2017 11:06 WALKER WHITE MD Jan 04, 2017 17:06
--- NOTE | 2017-01-04 11:38 | RAD ---
Indication bilateral lower extremity edema. Grayscale color Doppler and spectral imaging was performed. Examination was targeted to the veins of the lower extremities. Bilaterally the common femoral, femoral and popliteal vessels demonstrate normal flow compressibility and augmentation. No thrombus is seen. Calf veins were not well visualized IMPRESSION: Nonvisualization of calf veins. No definite DVT seen in either lower extremity
--- NOTE | 2017-01-04 13:08 | PDOC ---
Provider Note Provider Note Onc consult dictated- [id number] Acute mild pancytopenia- New since outside labs 10/13. Hgb baseline 9.5. Likely related to acute issues. No bmbx needed unless counts worsen as outpt, expect resolution back to his baseline. RAVINDRA VALDIVIA DO Jan 04, 2017 13:08
[2017-01-04 14:57] VITALS: BP 134/73
--- NOTE | 2017-01-04 16:13 | PDOC ---
PROGRESS NOTES Chief Complaint Chief Complaint Fluid overload, CHF, renal failure ASSESSMENT AND PLAN: 1. Fluid overload: on IV lasix 10, better output 2. CKD4: 3. Anemia: macrocytic. prob related to CKD; iron studies c/w chronic dz (low TIBC, high ferritin). B12/folate pending 4. CAD: no acute issues save as above 5. PAF: currently NSR 6. OAC: on coumadin, therapeutic INR 7. HTN: well controlled 8. HLD: on statin 9. DM: well controlled on current regimen 10. OA: chronic LBP. continue home regimen 11. Prophylaxis: heparin, PPI History of Present Illness History of Present Illness renal following lasix gtt 5 Vitals Vitals Vital Signs Date Time Temp Pulse Resp B/P Pulse Ox O2 Delivery O2 Flow Rate FiO2 01/04/17 14:57 97.5 70 18 134/73 98 Room Air 97.5 Physical Exam General: Alert, Oriented X3, Cooperative, No acute distress Heart: Regular rate, Normal S1, Normal S2 Lungs: Clear Abdomen: Soft, Other (acsites ) Extremities: Other (chronic venous stasis changes to bilateral LE. 2+ bilateral LE edema ) Skin: No breakdown, No significant lesion Labs LABS Laboratory Tests Test 01/03/17 16:52 01/03/17 20:36 01/04/17 03:50 01/04/17 07:37 Glucose (Fingerstick) 93mg/dL (70-99) 249mg/dL (70-99) 74mg/dL (70-99) White Blood Count 3.9x10^3/uL (4.0-11.0) Red Blood Count 3.23x10^6/uL (4.30-5.70) Hemoglobin 10.5g/dL (13.0-17.5) Hematocrit 32.4% (39.0-53.0) Mean Corpuscular Volume 100fL (79-100) Mean Corpuscular Hemoglobin 33pg (25-35) Mean Corpuscular Hemoglobin Concent 32g/dL (31-37) Red Cell Distribution Width 16.5% (11.5-14.5) Platelet Count 84x10^3/uL (140-400) Neutrophils (%) (Auto) 64% (31-73) Lymphocytes (%) (Auto) 23% (24-48) Monocytes (%) (Auto) 12% (0-9) Eosinophils (%) (Auto) 1% (0-3) Basophils (%) (Auto) 1% (0-3) Neutrophils # (Auto) 2.5x10^3uL (1.8-7.7) Lymphocytes # (Auto) 0.9x10^3/uL (1.0-4.8) Monocytes # (Auto) 0.5x10^3/uL (0.0-1.1) Eosinophils # (Auto) 0.0x10^3/uL (0.0-0.7) Basophils # (Auto) 0.0x10^3/uL (0.0-0.2) Prothrombin Time 23.7SEC (11.7-14.0) Prothromb Time International Ratio 2.3 (0.8-1.1) Sodium Level 144mmol/L (136-145) Potassium Level 3.8mmol/L (3.5-5.1) Chloride Level 107mmol/L (98-107) Carbon Dioxide Level 27mmol/L (21-32) Anion Gap 10 (6-14) Blood Urea Nitrogen 57mg/dL (8-26) Creatinine 2.1mg/dL (0.7-1.3) Estimated GFR (Cockcroft-Gault) 30.5 Glucose Level 177mg/dL (70-99) Calcium Level 8.5mg/dL (8.5-10.1) Phosphorus Level 3.5mg/dL (2.6-4.7) Magnesium Level 1.6mg/dL (1.8-2.4) Albumin 3.2g/dL (3.4-5.0) Test 01/04/17 11:15 Glucose (Fingerstick) 114mg/dL (70-99) Review of Systems Review of Systems scrotal edema LE Edema better orthopnea better Assessment and Plan Assessmemt and Plan cont lasix gtt Problems: Comment Review of Relevant I have reviewed the following items sarah (where applicable) has been applied. Labs Laboratory Tests Test 01/02/17 16:40 01/02/17 20:42 01/02/17 21:40 01/03/17 05:25 Glucose (Fingerstick) 87mg/dL (70-99) 138mg/dL (70-99) Urine Collection Type Unknown Urine Color Yellow Urine Clarity Clear Urine pH 5.5 Urine Specific [place] 1.015 Urine Protein Tracemg/dL (NEG-TRACE) Urine Glucose (UA) Negativemg/dL (NEG) Urine Ketones (Stick) Negativemg/dL (NEG) Urine Blood Small (NEG) Urine Nitrite Negative (NEG) Urine Bilirubin Negative (NEG) Urine Urobilinogen Dipstick 0.2mg/dL (0.2 mg/dL) Urine Leukocyte Esterase Negative (NEG) Urine RBC 1-2/HPF (0-2) Urine WBC Occ/HPF (0-4) Urine Squamous Epithelial Cells Occ/LPF Urine Bacteria 0/HPF (0-FEW) Urine Hyaline Casts Moderate/HPF Urine Mucus Slight/LPF White Blood Count 3.8x10^3/uL (4.0-11.0) Red Blood Count 3.13x10^6/uL (4.30-5.70) Hemoglobin 10.2g/dL (13.0-17.5) Hematocrit 31.1% (39.0-53.0) Mean Corpuscular Volume 99fL (79-100) Mean Corpuscular Hemoglobin 32pg (25-35) Mean Corpuscular Hemoglobin Concent 33g/dL (31-37) Red Cell Distribution Width 17.0% (11.5-14.5) Platelet Count 78x10^3/uL (140-400) Neutrophils (%) (Auto) 65% (31-73) Lymphocytes (%) (Auto) 22% (24-48) Monocytes (%) (Auto) 12% (0-9) Eosinophils (%) (Auto) 1% (0-3) Basophils (%) (Auto) 1% (0-3) Neutrophils # (Auto) 2.4x10^3uL (1.8-7.7) Lymphocytes # (Auto) 0.8x10^3/uL (1.0-4.8) Monocytes # (Auto) 0.4x10^3/uL (0.0-1.1) Eosinophils # (Auto) 0.0x10^3/uL (0.0-0.7) Basophils # (Auto) 0.0x10^3/uL (0.0-0.2) Sodium Level 143mmol/L (136-145) Potassium Level 4.2mmol/L (3.5-5.1) Chloride Level 111mmol/L (98-107) Carbon Dioxide Level 23mmol/L (21-32) Anion Gap 9 (6-14) Blood Urea Nitrogen 59mg/dL (8-26) Creatinine 2.1mg/dL (0.7-1.3) Estimated GFR (Cockcroft-Gault) 30.5 Glucose Level 53mg/dL (70-99) Calcium Level 8.6mg/dL (8.5-10.1) Phosphorus Level 3.2mg/dL (2.6-4.7) Magnesium Level 1.7mg/dL (1.8-2.4) JS-Nkc-D-Type Natriuretic Peptide 1210pg/mL (0-449) Albumin 3.1g/dL (3.4-5.0) Test 01/03/17 07:28 01/03/17 07:53 01/03/17 10:58 01/03/17 16:52 Glucose (Fingerstick) 49mg/dL (70-99) 158mg/dL (70-99) 161mg/dL (70-99) 93mg/dL (70-99) Test 01/03/17 20:36 01/04/17 03:50 01/04/17 07:37 01/04/17 11:15 Glucose (Fingerstick) 249mg/dL (70-99) 74mg/dL (70-99) 114mg/dL (70-99) White Blood Count 3.9x10^3/uL (4.0-11.0) Red Blood Count 3.23x10^6/uL (4.30-5.70) Hemoglobin 10.5g/dL (13.0-17.5) Hematocrit 32.4% (39.0-53.0) Mean Corpuscular Volume 100fL (79-100) Mean Corpuscular Hemoglobin 33pg (25-35) Mean Corpuscular Hemoglobin Concent 32g/dL (31-37) Red Cell Distribution Width 16.5% (11.5-14.5) Platelet Count 84x10^3/uL (140-400) Neutrophils (%) (Auto) 64% (31-73) Lymphocytes (%) (Auto) 23% (24-48) Monocytes (%) (Auto) 12% (0-9) Eosinophils (%) (Auto) 1% (0-3) Basophils (%) (Auto) 1% (0-3) Neutrophils # (Auto) 2.5x10^3uL (1.8-7.7) Lymphocytes # (Auto) 0.9x10^3/uL (1.0-4.8) Monocytes # (Auto) 0.5x10^3/uL (0.0-1.1) Eosinophils # (Auto) 0.0x10^3/uL (0.0-0.7) Basophils # (Auto) 0.0x10^3/uL (0.0-0.2) Prothrombin Time 23.7SEC (11.7-14.0) Prothromb Time International Ratio 2.3 (0.8-1.1) Sodium Level 144mmol/L (136-145) Potassium Level 3.8mmol/L (3.5-5.1) Chloride Level 107mmol/L (98-107) Carbon Dioxide Level 27mmol/L (21-32) Anion Gap 10 (6-14) Blood Urea Nitrogen 57mg/dL (8-26) Creatinine 2.1mg/dL (0.7-1.3) Estimated GFR (Cockcroft-Gault) 30.5 Glucose Level 177mg/dL (70-99) Calcium Level 8.5mg/dL (8.5-10.1) Phosphorus Level 3.5mg/dL (2.6-4.7) Magnesium Level 1.6mg/dL (1.8-2.4) Albumin 3.2g/dL (3.4-5.0) Laboratory Tests Test 01/03/17 16:52 01/03/17 20:36 01/04/17 03:50 01/04/17 07:37 Glucose (Fingerstick) 93mg/dL (70-99) 249mg/dL (70-99) 74mg/dL (70-99) White Blood Count 3.9x10^3/uL (4.0-11.0) Red Blood Count 3.23x10^6/uL (4.30-5.70) Hemoglobin 10.5g/dL (13.0-17.5) Hematocrit 32.4% (39.0-53.0) Mean Corpuscular Volume 100fL (79-100) Mean Corpuscular Hemoglobin 33pg (25-35) Mean Corpuscular Hemoglobin Concent 32g/dL (31-37) Red Cell Distribution Width 16.5% (11.5-14.5) Platelet Count 84x10^3/uL (140-400) Neutrophils (%) (Auto) 64% (31-73) Lymphocytes (%) (Auto) 23% (24-48) Monocytes (%) (Auto) 12% (0-9) Eosinophils (%) (Auto) 1% (0-3) Basophils (%) (Auto) 1% (0-3) Neutrophils # (Auto) 2.5x10^3uL (1.8-7.7) Lymphocytes # (Auto) 0.9x10^3/uL (1.0-4.8) Monocytes # (Auto) 0.5x10^3/uL (0.0-1.1) Eosinophils # (Auto) 0.0x10^3/uL (0.0-0.7) Basophils # (Auto) 0.0x10^3/uL (0.0-0.2) Prothrombin Time 23.7SEC (11.7-14.0) Prothromb Time International Ratio 2.3 (0.8-1.1) Sodium Level 144mmol/L (136-145) Potassium Level 3.8mmol/L (3.5-5.1) Chloride Level 107mmol/L (98-107) Carbon Dioxide Level 27mmol/L (21-32) Anion Gap 10 (6-14) Blood Urea Nitrogen 57mg/dL (8-26) Creatinine 2.1mg/dL (0.7-1.3) Estimated GFR (Cockcroft-Gault) 30.5 Glucose Level 177mg/dL (70-99) Calcium Level 8.5mg/dL (8.5-10.1) Phosphorus Level 3.5mg/dL (2.6-4.7) Magnesium Level 1.6mg/dL (1.8-2.4) Albumin 3.2g/dL (3.4-5.0) Test 01/04/17 11:15 Glucose (Fingerstick) 114mg/dL (70-99) Medications Current Medications Hydralazine HCl (Apresoline) 10 mg PRN Q4HRS PRN IVP ELEVATED BP, SEE COMMENTS ; Start 01/01/17 at 05:00 Furosemide (Lasix) 20 mg 1X ONCE IVP Last administered on 01/01/17 05:44; Start 01/01/17 at 05:30; Stop 01/01/17 at 05:31; Status DC Acetaminophen (Tylenol) 650 mg PRN TID PRN PO MILD PAIN / TEMP Last administered on 01/04/17 03:20; Start 01/01/17 at 05:00 Fentanyl Citrate (Fentanyl 2ml Vial) 25 mcg 1X ONCE IV Last administered on 05:45; Start 01/01/17 at 06:00; Stop 01/01/17 at 06:01; Status DC Acetaminophen/ Hydrocodone Bitart 1 tab 1 tab PRN Q4HRS PRN PO MODERATE PAIN Last administered on 01/01/17 09:53; Start 01/01/17 at 05:30; Stop 01/01/17 at 15: 36; Status DC Furosemide 100 mg/ Sodium Chloride 100 ml @ 10 mls/hr CONT PRN IV SEE I/O RECORD Last administered on 01/04/17 08:40; Start 01/01/17 at 11:15 Magnesium Sulfate/ Dextrose (Magnesium Sulfate PREMIX 2GM) 50 ml @ 25 mls/hr PRN DAILY PRN IV for Mag < 1.7 on am labs; Start 01/01/17 at 11:15 Alprazolam (Xanax) 0.5 mg PRN TID PRN PO anxiety Last administered on 01/04/17 03:20; Start 01/01/17 at 11:45 Aspirin (Ecotrin) 81 mg DAILY PO Last administered on 01/04/17 07:59; Start 01/01/17 at 12:30 Calcitriol (Rocaltrol) 0.25 mcg DAILY PO Last administered on 01/04/17 07:59; Start 01/01/17 at 12:30 Dorzolamide/ Timolol (Cosopt) 1 drop BID OU Last administered on 01/04/17 07:56 ; Start 01/01/17 at 12:30 Ferrous Sulfate (Feosol) 325 mg QHS PO Last administered on 01/03/17 21:00; Start 01/01/17 at 21:00 Folic Acid (Folic Acid) 2 mg TID PO Last administered on 01/04/17 13:07; Start 01/01/17 at 14:00 Gemfibrozil (Lopid) 600 mg BID PO Last administered on 01/04/17 07:57; Start at 12:30 Latanoprost (Xalatan) 1 drop QHS OU Last administered on 01/03/17 20:58; Start 01/01/17 at 21:00 Amylase/Lipase/ Protease (Zenpep 5,000) 4 cap TIDWMEALS PO Last administered on 01/04/17 13:08; Start 01/01/17 at 12:30 Metoprolol Tartrate (Lopressor) 25 mg DAILY PO ; Start 01/01/17 at 12:30; Stop at 15:36; Status DC Fish Oil (Fish Oil) 1,000 mg DAILY PO Last administered on 01/04/17 07:59; Start 01/01/17 at 12:30 Pregabalin (Lyrica) 75 mg BID PO Last administered on 01/03/17 22:00; Start 01/01/17 at 12:30 Ropinirole HCl (Requip) 1 mg HS PO Last administered on 01/03/17 21:00; Start 01/01/17 at 21:00 Sennosides (Senna) 8.6 mg BID PO Last administered on 01/04/17 07:59; Start 01/01/17 at 12:30 Spironolactone (Aldactone) 25 mg DAILY PO ; Start 01/01/17 at 12:30; Stop at 15:36; Status DC Tamsulosin HCl (Flomax) 0.8 mg DAILY PO Last administered on 01/04/17 07:59; Start 01/01/17 at 12:30 Warfarin Sodium (Coumadin) 4 mg DAILY16 PO ; Start 01/01/17 at 16:00; Stop at 16:00; Status DC Insulin Detemir (Levemir) 24 units QHS SQ Last administered on 01/03/17 21:07; Start 01/01/17 at 21:00 Insulin Aspart (Novolog) 8 units TIDBFRMEAL SQ Last administered on 01/03/17 12 :08; Start 01/01/17 at 16:30 Pantoprazole Sodium (Protonix) 40 mg DAILYAC PO ; Start 01/01/17 at 12:30; Stop 01/01/17 at 15:36; Status DC Warfarin Sodium (Coumadin Per Physician) 1 each PRN DAILY PRN MC SEE COMMENTS Last administered on 01/04/17 15:13; Start 01/01/17 at 12:45 Oxycodone/ Acetaminophen (Percocet 5/325) 1 tab PRN Q6HRS PRN PO PAIN Last administered on 01/04/17 10:36; Start 01/01/17 at 13:15 Magnesium Oxide (Magnesium Oxide) 400 mg DAILY PO Last administered on 07:58; Start 01/02/17 at 09:00 Metoprolol Tartrate (Lopressor) 100 mg BID PO Last administered on 01/04/17 07: 58; Start 01/01/17 at 21:00 Vitamin D (Vitamin D3) 1,000 unit DAILY PO Last administered on 01/04/17 07:58 ; Start 01/02/17 at 09:00 Warfarin Sodium (Coumadin) 2 mg DAILY16 PO Last administered on 01/03/17 17:02 ; Start 01/01/17 at 16:00 Pantoprazole Sodium (Protonix) 40 mg DAILYAC PO Last administered on 01/04/17 07:59; Start 01/02/17 at 07:30 Lisinopril (Prinivil) 2.5 mg DAILY PO Last administered on 01/04/17 07:58; Start 01/02/17 at 09:00 Insulin Aspart (Novolog) 0-7 UNITS TIDWMEALS SQ ; Start 01/02/17 at 08:00 Dextrose 12.5 gm PRN Q15MIN PRN IV SEE COMMENTS Last administered on 01/03/17 07:43; Start 01/01/17 at 17:45 Sulfur Hexafluoride Microspheres (Lumason) 25 mg STK-MED ONCE IVP ; Start at 16:12; Stop 01/03/17 at 16:13; Status DC Sulfur Hexafluoride Microspheres (Lumason) 25 mg 1X ONCE IVP Last administered on 01/03/17t 16:46; Start 01/03/17 at 16:45; Stop 01/03/17 at 16:49; Status DC Active Scripts Active Reported Aspir 81 (Aspirin) 81 Mg Tablet.dr 1 Tab PO DAILY Senokot (Sennosides) 8.6 Mg Tablet 3 Tab PO BID Morphine Sulfate Er (Morphine Sulfate) 60 Mg Cap.er.pel 60 Mg PO Metoprolol Tartrate 50 Mg Tablet 0.5 Tab PO DAILY Latanoprost 2.5 Ml Drops 1 Drop EACHEYE QHS Gemfibrozil 600 Mg Tablet 1 Tab PO BID Dorzolamide-Timolol Eye Drops (Dorzolamide Hcl/Timolol Maleat) 10 Ml Drops 1 Drop RIGHTEYE BID Lyrica (Pregabalin) 75 Mg Capsule 1 Cap PO BID Alprazolam 0.5 Mg Tablet 1 Tab PO TID Warfarin Sodium 4 Mg Tablet 1 Tab PO DAILY Fish Oil 1,000 Mg Capsule ([place]-3 Fatty Acids/Fish Oil) 1 Each Capsule 4 Each PO DAILY Pancrelipase Dr 5,000 Unit Cap (Lipase/Protease/Amylase) 1 Each Capsule.dr 4 Each PO Prilosec Otc (Omeprazole Magnesium) 20 Mg Tablet.dr 20 Mg PO DAILY Lyrica (Pregabalin) 25 Mg Capsule 50 Mg PO TID 30 Days Gemfibrozil 600 Mg Tablet 600 Mg PO BID Spironolactone 25 Mg Tablet 25 Mg PO DAILY Calcitriol 0.25 Mcg Capsule 0.25 Mcg PO DAILY Lantus (Insulin Glargine,Hum.rec.anlog) 100 Unit/1 Ml Vial 24 Unit SQ HS Humalog (Insulin Lispro) 100 Unit/1 Ml Vial 8 Unit SQ TID Folic Acid 1 Mg Tablet 2 Mg PO TID Ferosul (Ferrous Sulfate) 325 Mg Tablet 325 Mg PO Ropinirole Hcl 1 Mg Tablet 1 Mg PO HS Tamsulosin Hcl 0.4 Mg Cap.er.24h 0.8 Mg PO DAILY Travatan Z (Travoprost) 5 Ml Drops 5 Ml OP Vitals/I & O Vital Sign - Last 24 Hours 01/03/17 01/03/17 01/03/17 01/03/17 17:02 19:00 21:01 23:24 Temp 98.0 98.8 98.0 98.8 Pulse 70 70 71 Resp 18 18 B/P 178/79 157/86 163/70 Pulse Ox 100 97 95 O2 Delivery Room Air Room Air Room Air 01/04/17 01/04/17 01/04/17 01/04/17 00:39 02:58 07:00 07:58 Temp 97.3 97.4 97.3 97.4 Pulse 72 69 69 Resp 20 18 18 B/P 158/91 132/80 132/80 Pulse Ox 97 99 O2 Delivery Room Air Room Air Room Air 01/04/17 01/04/17 01/04/17 01/04/17 07:58 10:36 10:42 11:48 Temp 97.4 97.4 Pulse 69 70 Resp 18 B/P 132/80 136/79 Pulse Ox 99 99 O2 Delivery Room Air Room Air Room Air 01/04/17 14:57 Temp 97.5 97.5 Pulse 70 Resp 18 B/P 134/73 Pulse Ox 98 O2 Delivery Room Air Intake and Output 01/03/17 01/03/17 01/04/17 15:00 23:00 07:00 Intake Total 600 ml 180 ml 120 ml Output Total 200 ml 1450 ml Balance 600 ml -20 ml -1330 ml KATHIE WASHBURN MD Jan 04, 2017 16:13
[2017-01-04] MEDS: WARFARIN 2 MG TABLET. PO SCH (16:51)
[2017-01-04 19:00] VITALS: BP 141/72
[2017-01-04] MEDS: FERROUS SULFATE 325 MG TABLET PO SCH (20:29)
[2017-01-04] MEDS: rOPINIRole 1 MG TABLET. PO SCH (20:30)
[2017-01-04] MEDS: PREGABALIN 75 MG CAPSULE PO SCH ×2 (20:30→22:03)
[2017-01-04] MEDS: LATANOPROST 0.005% OPHTH SOLUTION 2.5ML BOTTLE. OU SCH (20:32)
[2017-01-04] MEDS: INSULIN DETEMIR 300 UNITS/3 ML INSULN.PEN. SQ SCH (20:37)
[2017-01-04 23:00] VITALS: BP 147/86
[2017-01-05 04:20] LABS: BASO % 1 % (0-3); EOS % 1 % (0-3); HEMATOCRIT 32.6 % (39.0-53.0); HEMOGLOBIN 10.6 g/dL (13.0-17.5); LYMPH # 1.1 x10^3/uL (1.0-4.8); LYMPH % 30 % (24-48); MEAN CORPUSCULAR HEMOGLOBIN 32 pg (25-35); MEAN CORPUSCULAR HGB CONC 33 g/dL (31-37); MEAN CORPUSCULAR VOLUME 99 fL (79-100); MONO % 12 % (0-9); NEUT % 57 % (31-73); PLATELET COUNT 93 x10^3/uL (140-400); RED BLOOD COUNT 3.29 x10^6/uL (4.30-5.70); RED CELL DISTRIBUTION WIDTH 16.6 % (11.5-14.5); WHITE BLOOD COUNT 3.7 x10^3/uL (4.0-11.0)
[2017-01-05 04:36] LABS: ALBUMIN 3.1 g/dL (3.4-5.0); CALCIUM 8.3 mg/dL (8.5-10.1); CREATININE 2.4 mg/dL (0.7-1.3); GFR 26.1; PHOSPHORUS 3.8 mg/dL (2.6-4.7); POTASSIUM 3.6 mmol/L (3.5-5.1)
[2017-01-05] MEDS: OXYCODONE/APAP 5/325 TABLET. PO PRN ×2 (06:59→14:57)
[2017-01-05 07:00] VITALS: BP 130/73
[2017-01-05] MEDS: INSULIN ASPART 300 UNITS/3 ML INSULN.PEN SQ SCH ×4 (07:30→11:22)
--- NOTE | 2017-01-05 08:59 | PDOC ---
Subjective: Subjective: Heme f/u- Pancytopenia Pt w/o complaints. Leg swelling unchanged. No SOB, chest pain. Objective: Vital Signs: Vital Signs Date Time Temp Pulse Resp B/P Pulse Ox O2 Delivery O2 Flow Rate FiO2 01/05/17 07:00 97.3 70 18 130/73 97 Room Air 97.3 Physical Exam: Extremities: No edema, Other (2+ bilateral LE edema unchanged) General: Alert, Oriented X3, No acute distress Lungs: Normal air movement Psych/Mental Status: Mental status NL, Mood NL Labs/Imaging: CBC stable, plt up to 93 Assessment/Plan A/P: Acute mild pancytopenia- New since outside labs 10/13 and likely related to acute issues. - Hgb baseline 9.5, WBC and plt generally normal. - No bmbx needed unless counts worsen as outpt, expect resolution back to his baseline over time with some further improvement in plt today. RAVINDRA VALDIVIA DO Jan 05, 2017 08:59
[2017-01-05] MEDS: CALCITRIOL 0.25 MCG CAPSULE PO SCH (09:05)
[2017-01-05] MEDS: LIPASE/PROTEAS/AMYLASE 5/17/27 CAPSULE.DR. PO SCH ×2 (09:05→12:44)
[2017-01-05] MEDS: FOLIC ACID 1 MG TABLET PO SCH ×2 (09:05→12:44)
[2017-01-05] MEDS: METOPROLOL TART IMMED RELEASE 25 MG TABLET PO SCH (09:06)
[2017-01-05] MEDS: SENNOSIDES 8.6 MG TABLET PO SCH (09:07)
[2017-01-05] MEDS: ASPIRIN ENTERIC COATED 81 MG TABLET.DR. PO SCH (09:07)
[2017-01-05] MEDS: GEMFIBROZIL 600 MG TABLET. PO SCH (09:08)
[2017-01-05] MEDS: PANTOPRAZOLE 40 MG TABLET. PO SCH (09:08)
[2017-01-05] MEDS: LISINOPRIL 2.5 MG TABLET PO SCH (09:08)
[2017-01-05] MEDS: PREGABALIN 75 MG CAPSULE PO SCH (09:08)
[2017-01-05] MEDS: MAGNESIUM OXIDE 400 MG TABLET PO SCH (09:08)
[2017-01-05] MEDS: OMEGA-3 FATTY ACIDS/FISH OIL 1,000 MG CAPSULE. PO SCH (09:09)
[2017-01-05] MEDS: TAMSULOSIN 0.4 MG CAP.ER.24H. PO SCH (09:09)
[2017-01-05] MEDS: CHOLECALCIFEROL (VITAMIN D3) 1,000 UNIT TABLET PO SCH (09:09)
[2017-01-05] MEDS: DORZOLAMIDE/TIMOLOL 2%/0.5% OPHTH SOLUTION 10ML BOTTLE. OU SCH (09:09)
[2017-01-05 10:56] VITALS: BP 116/66
[2017-01-05] MEDS ORDERED: FUROSEMIDE 40 MG/4 ML VIAL IVP ONE (12:45)
[2017-01-05] MEDS ORDERED: FURO80TA72 PO (12:45)
--- NOTE | 2017-01-05 12:51 | PDOC ---
PROGRESS NOTES Chief Complaint Chief Complaint Fluid overload, CHF, renal failure ASSESSMENT AND PLAN: 1. Fluid overload: s/p IV lasix gtt 10, good urine output 2. CKD4: 3. Anemia: macrocytic. prob related to CKD; iron studies c/w chronic dz (low TIBC, high ferritin). B12/folate pending 4. CAD: no acute issues save as above 5. PAF: currently NSR 6. OAC: on coumadin, therapeutic INR 7. HTN: well controlled 8. HLD: on statin 9. DM: well controlled on current regimen 10. OA: chronic LBP. continue home regimen 11. Prophylaxis: heparin, PPI History of Present Illness History of Present Illness renal following hs been on lasix gtt 5 lbs weight loss, he feels swelling is much improved He requests DC home Vitals Vitals Vital Signs Date Time Temp Pulse Resp B/P Pulse Ox O2 Delivery O2 Flow Rate FiO2 01/05/17 10:56 97.9 70 18 116/66 95 Room Air 97.9 Physical Exam General: Alert, Oriented X3, No acute distress Heart: Regular rate, Normal S1, Normal S2 Lungs: Clear Abdomen: Soft, Other (acsites ) Extremities: No edema, Other (2+ bilateral LE edema unchanged) Skin: No breakdown, No significant lesion Labs LABS Laboratory Tests Test 01/04/17 16:11 01/04/17 21:08 01/05/17 03:55 01/05/17 07:26 Glucose (Fingerstick) 186mg/dL (70-99) 137mg/dL (70-99) 56mg/dL (70-99) White Blood Count 3.7x10^3/uL (4.0-11.0) Red Blood Count 3.29x10^6/uL (4.30-5.70) Hemoglobin 10.6g/dL (13.0-17.5) Hematocrit 32.6% (39.0-53.0) Mean Corpuscular Volume 99fL (79-100) Mean Corpuscular Hemoglobin 32pg (25-35) Mean Corpuscular Hemoglobin Concent 33g/dL (31-37) Red Cell Distribution Width 16.6% (11.5-14.5) Platelet Count 93x10^3/uL (140-400) Neutrophils (%) (Auto) 57% (31-73) Lymphocytes (%) (Auto) 30% (24-48) Monocytes (%) (Auto) 12% (0-9) Eosinophils (%) (Auto) 1% (0-3) Basophils (%) (Auto) 1% (0-3) Neutrophils # (Auto) 2.1x10^3uL (1.8-7.7) Lymphocytes # (Auto) 1.1x10^3/uL (1.0-4.8) Monocytes # (Auto) 0.4x10^3/uL (0.0-1.1) Eosinophils # (Auto) 0.0x10^3/uL (0.0-0.7) Basophils # (Auto) 0.0x10^3/uL (0.0-0.2) Sodium Level 144mmol/L (136-145) Potassium Level 3.6mmol/L (3.5-5.1) Chloride Level 105mmol/L (98-107) Carbon Dioxide Level 29mmol/L (21-32) Anion Gap 10 (6-14) Blood Urea Nitrogen 64mg/dL (8-26) Creatinine 2.4mg/dL (0.7-1.3) Estimated GFR (Cockcroft-Gault) 26.1 Glucose Level 116mg/dL (70-99) Calcium Level 8.3mg/dL (8.5-10.1) Phosphorus Level 3.8mg/dL (2.6-4.7) Magnesium Level 1.3mg/dL (1.8-2.4) Albumin 3.1g/dL (3.4-5.0) Test 01/05/17 11:20 Glucose (Fingerstick) 109mg/dL (70-99) Assessment and Plan Assessmemt and Plan pt requests DC home, feels much better Problems: Comment Review of Relevant I have reviewed the following items sarah (where applicable) has been applied. Labs Laboratory Tests Test 01/03/17 16:52 01/03/17 20:36 01/04/17 03:50 01/04/17 07:37 Glucose (Fingerstick) 93mg/dL (70-99) 249mg/dL (70-99) 74mg/dL (70-99) White Blood Count 3.9x10^3/uL (4.0-11.0) Red Blood Count 3.23x10^6/uL (4.30-5.70) Hemoglobin 10.5g/dL (13.0-17.5) Hematocrit 32.4% (39.0-53.0) Mean Corpuscular Volume 100fL (79-100) Mean Corpuscular Hemoglobin 33pg (25-35) Mean Corpuscular Hemoglobin Concent 32g/dL (31-37) Red Cell Distribution Width 16.5% (11.5-14.5) Platelet Count 84x10^3/uL (140-400) Neutrophils (%) (Auto) 64% (31-73) Lymphocytes (%) (Auto) 23% (24-48) Monocytes (%) (Auto) 12% (0-9) Eosinophils (%) (Auto) 1% (0-3) Basophils (%) (Auto) 1% (0-3) Neutrophils # (Auto) 2.5x10^3uL (1.8-7.7) Lymphocytes # (Auto) 0.9x10^3/uL (1.0-4.8) Monocytes # (Auto) 0.5x10^3/uL (0.0-1.1) Eosinophils # (Auto) 0.0x10^3/uL (0.0-0.7) Basophils # (Auto) 0.0x10^3/uL (0.0-0.2) Prothrombin Time 23.7SEC (11.7-14.0) Prothromb Time International Ratio 2.3 (0.8-1.1) Sodium Level 144mmol/L (136-145) Potassium Level 3.8mmol/L (3.5-5.1) Chloride Level 107mmol/L (98-107) Carbon Dioxide Level 27mmol/L (21-32) Anion Gap 10 (6-14) Blood Urea Nitrogen 57mg/dL (8-26) Creatinine 2.1mg/dL (0.7-1.3) Estimated GFR (Cockcroft-Gault) 30.5 Glucose Level 177mg/dL (70-99) Calcium Level 8.5mg/dL (8.5-10.1) Phosphorus Level 3.5mg/dL (2.6-4.7) Magnesium Level 1.6mg/dL (1.8-2.4) Albumin 3.2g/dL (3.4-5.0) Test 01/04/17 11:15 01/04/17 16:11 01/04/17 21:08 01/05/17 03:55 Glucose (Fingerstick) 114mg/dL (70-99) 186mg/dL (70-99) 137mg/dL (70-99) White Blood Count 3.7x10^3/uL (4.0-11.0) Red Blood Count 3.29x10^6/uL (4.30-5.70) Hemoglobin 10.6g/dL (13.0-17.5) Hematocrit 32.6% (39.0-53.0) Mean Corpuscular Volume 99fL (79-100) Mean Corpuscular Hemoglobin 32pg (25-35) Mean Corpuscular Hemoglobin Concent 33g/dL (31-37) Red Cell Distribution Width 16.6% (11.5-14.5) Platelet Count 93x10^3/uL (140-400) Neutrophils (%) (Auto) 57% (31-73) Lymphocytes (%) (Auto) 30% (24-48) Monocytes (%) (Auto) 12% (0-9) Eosinophils (%) (Auto) 1% (0-3) Basophils (%) (Auto) 1% (0-3) Neutrophils # (Auto) 2.1x10^3uL (1.8-7.7) Lymphocytes # (Auto) 1.1x10^3/uL (1.0-4.8) Monocytes # (Auto) 0.4x10^3/uL (0.0-1.1) Eosinophils # (Auto) 0.0x10^3/uL (0.0-0.7) Basophils # (Auto) 0.0x10^3/uL (0.0-0.2) Sodium Level 144mmol/L (136-145) Potassium Level 3.6mmol/L (3.5-5.1) Chloride Level 105mmol/L (98-107) Carbon Dioxide Level 29mmol/L (21-32) Anion Gap 10 (6-14) Blood Urea Nitrogen 64mg/dL (8-26) Creatinine 2.4mg/dL (0.7-1.3) Estimated GFR (Cockcroft-Gault) 26.1 Glucose Level 116mg/dL (70-99) Calcium Level 8.3mg/dL (8.5-10.1) Phosphorus Level 3.8mg/dL (2.6-4.7) Magnesium Level 1.3mg/dL (1.8-2.4) Albumin 3.1g/dL (3.4-5.0) Test 01/05/17 07:26 01/05/17 11:20 Glucose (Fingerstick) 56mg/dL (70-99) 109mg/dL (70-99) Laboratory Tests Test 01/04/17 16:11 01/04/17 21:08 01/05/17 03:55 01/05/17 07:26 Glucose (Fingerstick) 186mg/dL (70-99) 137mg/dL (70-99) 56mg/dL (70-99) White Blood Count 3.7x10^3/uL (4.0-11.0) Red Blood Count 3.29x10^6/uL (4.30-5.70) Hemoglobin 10.6g/dL (13.0-17.5) Hematocrit 32.6% (39.0-53.0) Mean Corpuscular Volume 99fL (79-100) Mean Corpuscular Hemoglobin 32pg (25-35) Mean Corpuscular Hemoglobin Concent 33g/dL (31-37) Red Cell Distribution Width 16.6% (11.5-14.5) Platelet Count 93x10^3/uL (140-400) Neutrophils (%) (Auto) 57% (31-73) Lymphocytes (%) (Auto) 30% (24-48) Monocytes (%) (Auto) 12% (0-9) Eosinophils (%) (Auto) 1% (0-3) Basophils (%) (Auto) 1% (0-3) Neutrophils # (Auto) 2.1x10^3uL (1.8-7.7) Lymphocytes # (Auto) 1.1x10^3/uL (1.0-4.8) Monocytes # (Auto) 0.4x10^3/uL (0.0-1.1) Eosinophils # (Auto) 0.0x10^3/uL (0.0-0.7) Basophils # (Auto) 0.0x10^3/uL (0.0-0.2) Sodium Level 144mmol/L (136-145) Potassium Level 3.6mmol/L (3.5-5.1) Chloride Level 105mmol/L (98-107) Carbon Dioxide Level 29mmol/L (21-32) Anion Gap 10 (6-14) Blood Urea Nitrogen 64mg/dL (8-26) Creatinine 2.4mg/dL (0.7-1.3) Estimated GFR (Cockcroft-Gault) 26.1 Glucose Level 116mg/dL (70-99) Calcium Level 8.3mg/dL (8.5-10.1) Phosphorus Level 3.8mg/dL (2.6-4.7) Magnesium Level 1.3mg/dL (1.8-2.4) Albumin 3.1g/dL (3.4-5.0) Test 01/05/17 11:20 Glucose (Fingerstick) 109mg/dL (70-99) Medications Current Medications Hydralazine HCl (Apresoline) 10 mg PRN Q4HRS PRN IVP ELEVATED BP, SEE COMMENTS ; Start 01/01/17 at 05:00 Furosemide (Lasix) 20 mg 1X ONCE IVP Last administered on 01/01/17 05:44; Start 01/01/17 at 05:30; Stop 01/01/17 at 05:31; Status DC Acetaminophen (Tylenol) 650 mg PRN TID PRN PO MILD PAIN / TEMP Last administered on 01/04/17 03:20; Start 01/01/17 at 05:00 Fentanyl Citrate (Fentanyl 2ml Vial) 25 mcg 1X ONCE IV Last administered on 05:45; Start 01/01/17 at 06:00; Stop 01/01/17 at 06:01; Status DC Acetaminophen/ Hydrocodone Bitart 1 tab 1 tab PRN Q4HRS PRN PO MODERATE PAIN Last administered on 01/01/17 09:53; Start 01/01/17 at 05:30; Stop 01/01/17 at 15: 36; Status DC Furosemide 100 mg/ Sodium Chloride 100 ml @ 10 mls/hr CONT PRN IV SEE I/O RECORD Last administered on 01/04/17 23:44; Start 01/01/17 at 11:15; Stop at 12:44; Status DC Magnesium Sulfate/ Dextrose (Magnesium Sulfate PREMIX 2GM) 50 ml @ 25 mls/hr PRN DAILY PRN IV for Mag < 1.7 on am labs; Start 01/01/17 at 11:15 Alprazolam (Xanax) 0.5 mg PRN TID PRN PO anxiety Last administered on 01/04/17 03:20; Start 01/01/17 at 11:45 Aspirin (Ecotrin) 81 mg DAILY PO Last administered on 01/05/17 09:07; Start 01/01/17 at 12:30 Calcitriol (Rocaltrol) 0.25 mcg DAILY PO Last administered on 01/05/17 09:05; Start 01/01/17 at 12:30 Dorzolamide/ Timolol (Cosopt) 1 drop BID OU Last administered on 01/05/17 09:09 ; Start 01/01/17 at 12:30 Ferrous Sulfate (Feosol) 325 mg QHS PO Last administered on 01/04/17 20:29; Start 01/01/17 at 21:00 Folic Acid (Folic Acid) 2 mg TID PO Last administered on 01/05/17 12:44; Start 01/01/17 at 14:00 Gemfibrozil (Lopid) 600 mg BID PO Last administered on 01/05/17 09:08; Start at 12:30 Latanoprost (Xalatan) 1 drop QHS OU Last administered on 01/04/17 20:32; Start 01/01/17 at 21:00 Amylase/Lipase/ Protease (Zenpep 5,000) 4 cap TIDWMEALS PO Last administered on 01/05/17 12:44; Start 01/01/17 at 12:30 Metoprolol Tartrate (Lopressor) 25 mg DAILY PO ; Start 01/01/17 at 12:30; Stop at 15:36; Status DC Fish Oil (Fish Oil) 1,000 mg DAILY PO Last administered on 01/05/17 09:09; Start 01/01/17 at 12:30 Pregabalin (Lyrica) 75 mg BID PO Last administered on 01/05/17 09:08; Start 01/01/17 at 12:30 Ropinirole HCl (Requip) 1 mg HS PO Last administered on 01/04/17 20:30; Start 01/01/17 at 21:00 Sennosides (Senna) 8.6 mg BID PO Last administered on 01/05/17 09:07; Start 01/01/17 at 12:30 Spironolactone (Aldactone) 25 mg DAILY PO ; Start 01/01/17 at 12:30; Stop at 15:36; Status DC Tamsulosin HCl (Flomax) 0.8 mg DAILY PO Last administered on 01/05/17 09:09; Start 01/01/17 at 12:30 Warfarin Sodium (Coumadin) 4 mg DAILY16 PO ; Start 01/01/17 at 16:00; Stop at 16:00; Status DC Insulin Detemir (Levemir) 24 units QHS SQ Last administered on 01/04/17 20:37; Start 01/01/17 at 21:00 Insulin Aspart (Novolog) 8 units TIDBFRMEAL SQ Last administered on 01/04/17 16 :55; Start 01/01/17 at 16:30 Pantoprazole Sodium (Protonix) 40 mg DAILYAC PO ; Start 01/01/17 at 12:30; Stop 01/01/17 at 15:36; Status DC Warfarin Sodium (Coumadin Per Physician) 1 each PRN DAILY PRN MC SEE COMMENTS Last administered on 01/04/17 15:13; Start 01/01/17 at 12:45 Oxycodone/ Acetaminophen (Percocet 5/325) 1 tab PRN Q6HRS PRN PO PAIN Last administered on 01/05/17 06:59; Start 01/01/17 at 13:15 Magnesium Oxide (Magnesium Oxide) 400 mg DAILY PO Last administered on 09:08; Start 01/02/17 at 09:00 Metoprolol Tartrate (Lopressor) 100 mg BID PO Last administered on 01/05/17 09: 06; Start 01/01/17 at 21:00 Vitamin D (Vitamin D3) 1,000 unit DAILY PO Last administered on 01/05/17 09:09 ; Start 01/02/17 at 09:00 Warfarin Sodium (Coumadin) 2 mg DAILY16 PO Last administered on 01/04/17 16:51 ; Start 01/01/17 at 16:00 Pantoprazole Sodium (Protonix) 40 mg DAILYAC PO Last administered on 01/05/17 09:08; Start 01/02/17 at 07:30 Lisinopril (Prinivil) 2.5 mg DAILY PO Last administered on 01/05/17 09:08; Start 01/02/17 at 09:00 Insulin Aspart (Novolog) 0-7 UNITS TIDWMEALS SQ Last administered on 01/04/17 16:56; Start 01/02/17 at 08:00 Dextrose 12.5 gm PRN Q15MIN PRN IV SEE COMMENTS Last administered on 01/03/17 07:43; Start 01/01/17 at 17:45 Sulfur Hexafluoride Microspheres (Lumason) 25 mg STK-MED ONCE IVP ; Start at 16:12; Stop 01/03/17 at 16:13; Status DC Sulfur Hexafluoride Microspheres (Lumason) 25 mg 1X ONCE IVP Last administered on 01/03/17 16:46; Start 01/03/17 at 16:45; Stop 01/03/17 at 16:49; Status DC Furosemide (Lasix) 80 mg 1X ONCE IVP ; Start 01/05/17 at 12:45; Stop 01/05/17 at 12:46 Active Scripts Active Lasix (Furosemide) 80 Mg Tablet 1 Tab PO DAILY Reported Aspir 81 (Aspirin) 81 Mg Tablet.dr 1 Tab PO DAILY Senokot (Sennosides) 8.6 Mg Tablet 3 Tab PO BID Morphine Sulfate Er (Morphine Sulfate) 60 Mg Cap.er.pel 60 Mg PO Metoprolol Tartrate 50 Mg Tablet 0.5 Tab PO DAILY Latanoprost 2.5 Ml Drops 1 Drop EACHEYE QHS Gemfibrozil 600 Mg Tablet 1 Tab PO BID Dorzolamide-Timolol Eye Drops (Dorzolamide Hcl/Timolol Maleat) 10 Ml Drops 1 Drop RIGHTEYE BID Lyrica (Pregabalin) 75 Mg Capsule 1 Cap PO BID Alprazolam 0.5 Mg Tablet 1 Tab PO TID Warfarin Sodium 4 Mg Tablet 1 Tab PO DAILY Fish Oil 1,000 Mg Capsule ([place]-3 Fatty Acids/Fish Oil) 1 Each Capsule 4 Each PO DAILY Pancrelipase 5,000 Unit Cap (Lipase/Protease/Amylase) 1 Each Capsule.dr 4 Each PO Prilosec Otc (Omeprazole Magnesium) 20 Mg Tablet.dr 20 Mg PO DAILY Lyrica (Pregabalin) 25 Mg Capsule 50 Mg PO TID 30 Days Gemfibrozil 600 Mg Tablet 600 Mg PO BID Spironolactone 25 Mg Tablet 25 Mg PO DAILY Calcitriol 0.25 Mcg Capsule 0.25 Mcg PO DAILY Lantus (Insulin Glargine,Hum.rec.anlog) 100 Unit/1 Ml Vial 24 Unit SQ HS Humalog (Insulin Lispro) 100 Unit/1 Ml Vial 8 Unit SQ TID Folic Acid 1 Mg Tablet 2 Mg PO TID Ferosul (Ferrous Sulfate) 325 Mg Tablet 325 Mg PO Ropinirole Hcl 1 Mg Tablet 1 Mg PO HS Tamsulosin Hcl 0.4 Mg Cap.er.24h 0.8 Mg PO DAILY Travatan Z (Travoprost) 5 Ml Drops 5 Ml OP Vitals/I & O Vital Sign - Last 24 Hours 01/04/17 01/04/17 01/04/17 01/04/17 14:57 16:51 19:00 20:00 Temp 97.5 97.8 97.5 97.8 Pulse 70 70 Resp 18 20 B/P 134/73 141/72 Pulse Ox 98 98 O2 Delivery Room Air Room Air Room Air Room Air 01/04/17 01/04/17 01/04/17 01/05/17 20:31 23:00 23:43 01:18 Temp 97.7 97.7 Pulse 70 70 Resp 20 18 18 B/P 141/72 147/86 Pulse Ox 100 O2 Delivery Room Air Room Air 01/05/17 01/05/17 01/05/17 01/05/17 06:59 07:00 07:59 08:10 Temp 97.3 97.3 Pulse 70 Resp 22 18 B/P 130/73 Pulse Ox 97 97 O2 Delivery Room Air Room Air Room Air Room Air 01/05/17 01/05/17 01/05/17 09:06 09:08 10:56 Temp 97.9 97.9 Pulse 70 70 70 Resp 18 B/P 130/73 130/73 116/66 Pulse Ox 95 O2 Delivery Room Air Intake and Output 01/04/17 01/04/17 01/05/17 15:00 23:00 07:00 Intake Total 420 ml 480 ml 300 ml Output Total 900 ml 300 ml 600 ml Balance -480 ml 180 ml -300 ml KATHIE WASHBURN MD Jan 05, 2017 12:51
[2017-01-05] MEDS ORDERED: POTASSIUM CHLORIDE 20 MEQ TABLET.ER. PO ONE (13:00)
--- NOTE | 2017-01-05 14:22 | PDOC ---
SUBJECTIVE ROS CKD IV/ ansarca Doing and feeling well overall, excited to go home, wt loss as doucmented CVS: no Orthopnea, no CP RESP: no SOB, no HANSEN GI: no Nausea, no Vomiting : no Dysuria, no Urgency OBJECTIVE Vital Signs Vital Signs Date Time Temp Pulse Resp B/P Pulse Ox O2 Delivery O2 Flow Rate FiO2 01/05/17 10:56 97.9 70 18 116/66 95 Room Air 97.9 I & 0 Intake and Output 01/05/17 07:00 Intake Total 1200 ml Output Total 1800 ml Balance -600 ml Intake Oral 1150 ml Other 50 ml Output Urine Total 1800 ml PHYSICAL EXAM Physical Exam General Appearance: Awake Alert Oriented x 3 In mod Distress Eyes: VIsion Unchanged Conjunctiva Normal EN: No EN Drainage Mucous Memb. moist Neck: no JVD no JVP Supple no Thyromegaly; short thick neck CVS: S1 S2 ? Murmur No Gallop No Rub +2 Edema Resp: no Rales no Rhonchi no Acc. Muscle use GI: BS +ve NO Bruit Non Tender Non Distended; Obese : no CVA tenderness; no Suprapubic Tenderness Scrotum is still swollen ASSESSMENT/PLAN Assessment/Plan CKD Iv - 24hr Urine collection shows CrCl of 27cc/min. Current FLuid and E- lyte status does not necessitate emergent need for Dialysis. Anasarca - will change to Bumex 2mg PO BID for now JOSHUA - non-compliance with CPAP Persistent pancytopenia and Anemia: (presumably part of Pancytopenia) appreciate Heme eval DM -nephropathy - unable to quantify Protein due to ch. Incontinence as OP and now ^ed due to previous Hematuria HTN: Current BP meds reviewed. See orders for changes. Discussed Plan of Care and prognosis etc. at length with family () - F/up as OP in 3-4 weeks COMMENT/RELEVANT DATA Meds Current Medications Medications (Trade) Dose Ordered Sig/Tracy Start Time Stop Time Status Last Admin Dose Admin Acetaminophen (Tylenol) 650 mg PRN TID PRN 01/01/17 05:00 01/04/17 03:20 650 MG Acetaminophen/ Hydrocodone Bitart 1 tab 1 tab PRN Q4HRS PRN 01/01/17 05:30 01/01/17 15:36 DC 01/01/17 09:53 1 TAB Alprazolam (Xanax) 0.5 mg PRN TID PRN 01/01/17 11:45 01/04/17 03:20 0.5 MG Amylase/Lipase/ Protease (Zenpep 5,000) 4 cap TIDWMEALS 01/01/17 12:30 01/05/17 12:44 4 CAP Aspirin (Ecotrin) 81 mg DAILY 01/01/17 12:30 01/05/17 09:07 81 MG Calcitriol (Rocaltrol) 0.25 mcg DAILY 01/01/17 12:30 01/05/17 09:05 0.25 MCG Dextrose 12.5 gm PRN Q15MIN PRN 01/01/17 17:45 01/03/17 07:43 25 GM Dorzolamide/ Timolol (Cosopt) 1 drop BID 01/01/17 12:30 01/05/17 09:09 1 DROP Fentanyl Citrate (Fentanyl 2ml Vial) 25 mcg 1X ONCE 01/01/17 06:00 01/01/17 06:01 DC 01/01/17 05:45 25 MCG Ferrous Sulfate (Feosol) 325 mg QHS 01/01/17 21:00 01/04/17 20:29 325 MG Fish Oil (Fish Oil) 1,000 mg DAILY 01/01/17 12:30 01/05/17 09:09 1,000 MG Folic Acid (Folic Acid) 2 mg TID 01/01/17 14:00 01/05/17 12:44 2 MG Furosemide (Lasix) 80 mg 1X ONCE 01/05/17 12:45 01/05/17 12:46 DC 01/05/17 13:55 80 MG Furosemide 100 mg/ Sodium Chloride 100 ml @ 10 mls/hr CONT PRN 01/01/17 11:15 01/05/17 12:44 DC 01/04/17 23:44 10 MLS/HR Gemfibrozil (Lopid) 600 mg BID 01/01/17 12:30 01/05/17 09:08 600 MG Hydralazine HCl (Apresoline) 10 mg PRN Q4HRS PRN 01/01/17 05:00 Insulin Aspart (Novolog) 0-7 UNITS TIDWMEALS 01/02/17 08:00 01/04/17 16:56 3 UNITS Insulin Detemir (Levemir) 24 units QHS 01/01/17 21:00 01/04/17 20:37 24 UNITS Latanoprost (Xalatan) 1 drop QHS 01/01/17 21:00 01/04/17 20:32 1 DROP Lisinopril (Prinivil) 2.5 mg DAILY 01/02/17 09:00 01/05/17 09:08 2.5 MG Magnesium Oxide (Magnesium Oxide) 400 mg DAILY 01/02/17 09:00 01/05/17 09:08 400 MG Magnesium Sulfate/ Dextrose (Magnesium Sulfate PREMIX 2GM) 50 ml @ 25 mls/hr PRN DAILY PRN 01/01/17 11:15 Metoprolol Tartrate (Lopressor) 100 mg BID 01/01/17 21:00 01/05/17 09:06 100 MG Oxycodone/ Acetaminophen (Percocet 5/325) 1 tab PRN Q6HRS PRN 01/01/17 13:15 01/05/17 06:59 1 TAB Pantoprazole Sodium (Protonix) 40 mg DAILYAC 01/02/17 07:30 01/05/17 09:08 40 MG Potassium Chloride (Klor-Con) 40 meq 1X ONCE 01/05/17 13:00 01/05/17 13:01 DC 01/05/17 13:54 40 MEQ Pregabalin (Lyrica) 75 mg BID 01/01/17 12:30 01/05/17 09:08 75 MG Ropinirole HCl (Requip) 1 mg HS 01/01/17 21:00 01/04/17 20:30 1 MG Sennosides (Senna) 8.6 mg BID 01/01/17 12:30 01/05/17 09:07 8.6 MG Spironolactone (Aldactone) 25 mg DAILY 01/01/17 12:30 01/01/17 15:36 DC Sulfur Hexafluoride Microspheres (Lumason) 25 mg 1X ONCE 01/03/17 16:45 01/03/17 16:49 DC 01/03/17 16:46 25 MG Tamsulosin HCl (Flomax) 0.8 mg DAILY 01/01/17 12:30 01/05/17 09:09 0.8 MG Vitamin D (Vitamin D3) 1,000 unit DAILY 01/02/17 09:00 01/05/17 09:09 1,000 UNIT Warfarin Sodium (Coumadin Per Physician) 1 each PRN DAILY PRN 01/01/17 12:45 01/04/17 15:13 1 EACH Warfarin Sodium (Coumadin) 2 mg DAILY16 01/01/17 16:00 01/04/17 16:51 2 MG Lab Laboratory Tests Test 01/04/17 16:11 01/04/17 21:08 01/05/17 03:55 01/05/17 07:26 Glucose (Fingerstick) 186mg/dL (70-99) 137mg/dL (70-99) 56mg/dL (70-99) White Blood Count 3.7x10^3/uL (4.0-11.0) Red Blood Count 3.29x10^6/uL (4.30-5.70) Hemoglobin 10.6g/dL (13.0-17.5) Hematocrit 32.6% (39.0-53.0) Mean Corpuscular Volume 99fL (79-100) Mean Corpuscular Hemoglobin 32pg (25-35) Mean Corpuscular Hemoglobin Concent 33g/dL (31-37) Red Cell Distribution Width 16.6% (11.5-14.5) Platelet Count 93x10^3/uL (140-400) Neutrophils (%) (Auto) 57% (31-73) Lymphocytes (%) (Auto) 30% (24-48) Monocytes (%) (Auto) 12% (0-9) Eosinophils (%) (Auto) 1% (0-3) Basophils (%) (Auto) 1% (0-3) Neutrophils # (Auto) 2.1x10^3uL (1.8-7.7) Lymphocytes # (Auto) 1.1x10^3/uL (1.0-4.8) Monocytes # (Auto) 0.4x10^3/uL (0.0-1.1) Eosinophils # (Auto) 0.0x10^3/uL (0.0-0.7) Basophils # (Auto) 0.0x10^3/uL (0.0-0.2) Sodium Level 144mmol/L (136-145) Potassium Level 3.6mmol/L (3.5-5.1) Chloride Level 105mmol/L (98-107) Carbon Dioxide Level 29mmol/L (21-32) Anion Gap 10 (6-14) Blood Urea Nitrogen 64mg/dL (8-26) Creatinine 2.4mg/dL (0.7-1.3) Estimated GFR (Cockcroft-Gault) 26.1 Glucose Level 116mg/dL (70-99) Calcium Level 8.3mg/dL (8.5-10.1) Phosphorus Level 3.8mg/dL (2.6-4.7) Magnesium Level 1.3mg/dL (1.8-2.4) Albumin 3.1g/dL (3.4-5.0) Test 01/05/17 11:20 Glucose (Fingerstick) 109mg/dL (70-99) RICHIE UPTON MD Jan 05, 2017 14:22
--- NOTE | 2017-01-05 15:24 | PDOC ---
CARDIO Progress Notes Date and Time Date of Service 01/05/17 Time of Evaluation 1245 Subjective Subjective: No Chest Pain, No shortness of breath, Other (swelling much better) Vitals Vitals Vital Signs Date Time Temp Pulse Resp B/P Pulse Ox O2 Delivery O2 Flow Rate FiO2 01/05/17 14:57 15 Room Air 01/05/17 10:56 97.9 70 116/66 95 97.9 Weight Weight [ ] Input and Output Intake and Output Intake and Output 01/05/17 07:00 Intake Total 1200 ml Output Total 1800 ml Balance -600 ml Intake Oral 1150 ml Other 50 ml Output Urine Total 1800 ml Laboratory Labs Laboratory Tests Test 01/04/17 16:11 01/04/17 21:08 01/05/17 03:55 01/05/17 07:26 Glucose (Fingerstick) 186mg/dL (70-99) 137mg/dL (70-99) 56mg/dL (70-99) White Blood Count 3.7x10^3/uL (4.0-11.0) Red Blood Count 3.29x10^6/uL (4.30-5.70) Hemoglobin 10.6g/dL (13.0-17.5) Hematocrit 32.6% (39.0-53.0) Mean Corpuscular Volume 99fL (79-100) Mean Corpuscular Hemoglobin 32pg (25-35) Mean Corpuscular Hemoglobin Concent 33g/dL (31-37) Red Cell Distribution Width 16.6% (11.5-14.5) Platelet Count 93x10^3/uL (140-400) Neutrophils (%) (Auto) 57% (31-73) Lymphocytes (%) (Auto) 30% (24-48) Monocytes (%) (Auto) 12% (0-9) Eosinophils (%) (Auto) 1% (0-3) Basophils (%) (Auto) 1% (0-3) Neutrophils # (Auto) 2.1x10^3uL (1.8-7.7) Lymphocytes # (Auto) 1.1x10^3/uL (1.0-4.8) Monocytes # (Auto) 0.4x10^3/uL (0.0-1.1) Eosinophils # (Auto) 0.0x10^3/uL (0.0-0.7) Basophils # (Auto) 0.0x10^3/uL (0.0-0.2) Sodium Level 144mmol/L (136-145) Potassium Level 3.6mmol/L (3.5-5.1) Chloride Level 105mmol/L (98-107) Carbon Dioxide Level 29mmol/L (21-32) Anion Gap 10 (6-14) Blood Urea Nitrogen 64mg/dL (8-26) Creatinine 2.4mg/dL (0.7-1.3) Estimated GFR (Cockcroft-Gault) 26.1 Glucose Level 116mg/dL (70-99) Calcium Level 8.3mg/dL (8.5-10.1) Phosphorus Level 3.8mg/dL (2.6-4.7) Magnesium Level 1.3mg/dL (1.8-2.4) Albumin 3.1g/dL (3.4-5.0) Test 01/05/17 11:20 Glucose (Fingerstick) 109mg/dL (70-99) Physical Exam HEENT: Neck Supple W Full Motion Chest: Symmetric LUNGS: Clear to Auscultation Heart: S1S2, RRR, other (tele" 100% v-paced ) Abdomen: Soft N/T, Other (minimal scrotal edema) Extremities: Other (1-2+ bialteral LE edema with chronic venous stasis changes) Neurology: alert, oriented, follow commands Assessment Assessment 1. LE edema 2. Ascites, scrotal edema 3. Decompensated HF 4. 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 SSS s/p PPM 7. PAFIB; maintaining SR Recommendations continue oral diuresis Daily weights/monitoring, I and O, FR, low Na diet- all d/w patient and patient to follow-up closely with primary video game technician YAHAIRA POTTER APRN Jan 05, 2017 15:24
[2017-01-05 15:26] VITALS: BP 122/62
--- NOTE | 2017-01-05 17:05 | CONS ---
DATE OF CONSULTATION: 01/04/2017 REFERRING PROVIDER: Dr. Grant REASON FOR CONSULTATION: Pancytopenia. HISTORY OF PRESENT ILLNESS: The patient is an 81-year-old male who was admitted on 01/01 with significant scrotal edema, acute on chronic kidney disease and found to be in decompensated heart failure. He has been placed on a Lasix drip. While here, he has been noted to have some mild pancytopenia. His white blood cell count was 3.9, differential is unremarkable. Hemoglobin 10.5, MCV 99, platelets 84. His creatinine is 2.1. Iron studies, ferritin, B12, folic acid and serum immunofixation have all been unremarkable. SPEP showed hypoalbuminemia. Chest x-ray showed mild cardiomegaly. I have reviewed outside labs and imaging from the [facility] where his CBC in 09/2016 was noted to be relatively normal with a normal white blood cell count and platelet counts, hemoglobin 9.5. Peripheral smear at that time showed decreased platelet number, but normal morphology. TSH was unremarkable. He also had a CT of the abdomen and pelvis in 12/2015, which did not reveal any organomegaly. 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 He cannot recall the name of this, but has been on no treatment for the last 4 years. PAST MEDICAL HISTORY: Chronic kidney disease, hypertension, hyperlipidemia, diabetes, heart disease, AFib, sick sinus syndrome, status post pacemaker placement, cardiomyopathy, sleep apnea, peptic ulcer disease, obesity and some form of a "blood cancer" per his report, but has not required any treatment for several years. PAST SURGICAL HISTORY: CABG, PCI, rotator cuff surgery, pacemaker, eye surgery. FAMILY HISTORY: Mom with diabetes. Dad with heart disease, status post heart attack, but was in his mid 80s upon his . He had 11 siblings, some with chronic kidney disease, 2 that from accidents. SOCIAL HISTORY: He is . No tobacco or drug use. He drinks approximately 5 beers per week. ALLERGIES: Statins, gabapentin, Bactrim. CURRENT MEDICATIONS: Extensive medication list reviewed. See chart. REVIEW OF SYSTEMS: Ten-point review of systems completed and unremarkable with the exception of the diffuse swelling and shortness of breath. PHYSICAL EXAMINATION: VITAL SIGNS: Temperature 97.4, pulse 70, respiratory rate 18, blood pressure 136/79, 99% O2 on room air. GENERAL: He is alert and oriented, morbidly obese, in no apparent distress. HEENT: Extraocular muscle strength is intact. Mucous membranes are moist. No scleral icterus. CARDIOVASCULAR: Heart is regular in rhythm and rate. LUNGS: Clear to auscultation bilaterally. ABDOMEN: Soft, nontender, no distention. No obvious organomegaly. EXTREMITIES: 2+ bilateral lower extremity edema with some erythema in his left lower extremity. IMAGING AND LABORATORY DATA: CBC from this admission and outside records reviewed. CT imaging from outside reviewed. Lower extremity ultrasound here negative for any DVT bilaterally. ASSESSMENT AND PLAN: The patient is an 81-year-old male with the following medical problems: 1. Acute mild pancytopenia with chronic normocytic anemia, hemoglobin baseline 9.5-10.5. In review of his outside labs, it appears that this is an acute finding, likely related to acute events with this admission. His labs were normal in 09/2016. Outside imaging has not revealed any organomegaly. Therefore, I would expect that his counts will return to their baseline after his clinical status improves. I recommended he continue to follow with his PCP, Dr. Beard and have labs checked after this hospitalization. I do not think he needs any bone marrow biopsy or other evaluation at this time given the likely relation to his acute heart failure issues. He remains asymptomatic. 2. His extensive lab evaluation this hospitalization has been unremarkable including normal SPEP, immunofixation, B12, folate, ferritin, iron studies. 3. Anemia of chronic disease. Continue to treat underlying issues as you are doing. He has not required any ongoing transfusions. His hemoglobin baseline has risen to above 10.5. I do not think his heart failure issues are likely related to the anemia and doubt that he would likely benefit substantially from ongoing erythropoietin therapy. Thank you for this consultation and allowing me to participate in his care. He has my contact information, but will likely follow up as needed. RAVINDRA VALDIVIA DO DR: OUMAR/elpidio JOB#: [id number] / [id number]
== END 2017-01-05 17:00 | disposition home or self-care (01) | DRG 682 ==
LOC: 5 SOUTH 04:25
PROVIDERS: ADMIT Internal Medicine; ATTEND Internal Medicine
DX: N17.9 Acute kidney failure, unspecified (principal); I50.33 Acute on chronic diastolic (congestive) heart failure; I13.0 Hypertensive heart and chronic kidney disease with heart failure and stage 1 through stage 4 chronic kidney disease, or unspecified chronic kidney disease; D61.818 Other pancytopenia; R18.8 Other ascites; I42.9 Cardiomyopathy, unspecified; N18.4 Chronic kidney disease, stage 4 (severe); D50.9 Iron deficiency anemia, unspecified; D63.8 Anemia in other chronic diseases classified elsewhere; E11.22 Type 2 diabetes mellitus with diabetic chronic kidney disease; E66.01 Morbid (severe) obesity due to excess calories; Z68.36 Body mass index [BMI] 36.0-36.9, adult; E78.5 Hyperlipidemia, unspecified; G47.33 Obstructive sleep apnea (adult) (pediatric); G89.29 Other chronic pain; I25.10 Atherosclerotic heart disease of native coronary artery without angina pectoris; I48.0 Paroxysmal atrial fibrillation; I49.5 Sick sinus syndrome; K21.9 Gastro-esophageal reflux disease without esophagitis; R32 Unspecified urinary incontinence; Z79.4 Long term (current) use of insulin; Z82.49 Family history of ischemic heart disease and other diseases of the circulatory system; Z83.3 Family history of diabetes mellitus; Z85.828 Personal history of other malignant neoplasm of skin; Z88.8 Allergy status to other drugs, medicaments and biological substances; Z88.2 Allergy status to sulfonamides; Z87.01 Personal history of pneumonia (recurrent); Z87.11 Personal history of peptic ulcer disease; Z91.19 Patient's noncompliance with other medical treatment and regimen; Z95.0 Presence of cardiac pacemaker; Z95.1 Presence of aortocoronary bypass graft; Z95.5 Presence of coronary angioplasty implant and graft
CPT/HCPCS: 36415; 71010; 76770; 80069; 81001; 82607; 82728; 82746; 82947; 83540; 83550; 83735; 83880; 85027; 85045; 85610; 93306; 93970; C8929; J1815; J1940; J3010; J7042; J7060; 97116; Q9950

== ENCOUNTER 2017-01-29 11:44 | Inpatient (IN) | payer MEDICARE, BC ==
[~2017-01-29] VITALS: Ht 162.6 cm; Wt 90.7 kg
[~2017-01-29 11:44] MED LIST changes: +FURO80TA72 PO
[2017-01-29 13:15] LABS: BASO % 1 % (0-3); EOS % 1 % (0-3); HEMATOCRIT 31.4 % (39.0-53.0); HEMOGLOBIN 10.3 g/dL (13.0-17.5); LYMPH # 0.9 x10^3/uL (1.0-4.8); LYMPH % 22 % (24-48); MEAN CORPUSCULAR HEMOGLOBIN 32 pg (25-35); MEAN CORPUSCULAR HGB CONC 33 g/dL (31-37); MEAN CORPUSCULAR VOLUME 99 fL (79-100); MONO % 13 % (0-9); NEUT % 64 % (31-73); PLATELET COUNT 66 x10^3/uL (140-400); RED BLOOD COUNT 3.18 x10^6/uL (4.30-5.70); RED CELL DISTRIBUTION WIDTH 14.9 % (11.5-14.5); WHITE BLOOD COUNT 4.2 x10^3/uL (4.0-11.0)
--- NOTE | 2017-01-29 13:18 | RAD ---
Examination: Single frontal view the chest. History: History of dyspnea Comparison: 01/03/2017 Findings: Right-sided cardiac pacer is identified. The cardiomediastinal silhouette grossly appears unremarkable. There is no acute infiltrate or visualized pneumothorax identified. Impression: No acute cardiopulmonary findings.
[2017-01-29 13:24] LABS: INR 2.3 (0.8-1.1)
[2017-01-29 13:26] LABS: CALCIUM 7.6 mg/dL (8.5-10.1); CREATININE 5.2 mg/dL (0.7-1.3); GFR 10.7
[2017-01-29 13:32] LABS: POTASSIUM 6.7 mmol/L (3.5-5.1)
[2017-01-29] MEDS ORDERED: FUROSEMIDE 40 MG/4 ML VIAL IVP ONE (13:45)
[2017-01-29] MEDS ORDERED: CALCIUM GLUCONATE 1,000 MG/10 ML VIAL IVP ONE (13:45)
[2017-01-29] MEDS ORDERED: DEXTROSE 50% 25 GM / 50ML DISP.SYRIN. IV ONE (13:45)
[2017-01-29] MEDS ORDERED: INSULIN REGULAR 100 UNIT/ML 10ML VIAL. IV ONE (13:45)
[2017-01-29] MEDS ORDERED: OXYCODONE/APAP 5/325 TABLET. PO ONE (14:00)
--- NOTE | 2017-01-29 14:00 | PHYS DOC ---
Past Medical History Past Medical History: Diabetes-Type II, Heart Disease, Hypertension Past Surgical History: Coronary Bypass Surgery, Other Additional Past Surgical Histo: L)shoulder torn ligament,[id number],pain stimulator, PACEMAKER Alcohol Use: Occasionally Drug Use: None Adult General Chief Complaint Chief Complaint: OTHER COMPLAINTS HPI HPI Patient is a 81 year old male who presents with for evaluation of decreased urine output, abdominal swelling, dyspnea on exertion, fatigue, and slight confusion that is developed over the past few days. He denies resting dyspnea. He has no urine output today. He does not have the sensation to void. States he was not able to button his pants today. He denies cough, chest pain, lightheadedness, diaphoresis, fever or chills, nausea or vomiting, diarrhea or constipation, dysuria, hematuria, scrotal swelling, lower extremity swelling. Review of Systems Review of Systems Constitutional: Denies fever or chills [] Eyes: Denies change in visual acuity, redness, or eye pain [] HENT: Denies nasal congestion or sore throat [] Respiratory: Denies cough [] Cardiovascular: No additional information not addressed in HPI [] GI: Denies abdominal pain, nausea, vomiting, bloody stools or diarrhea [] : Denies dysuria or hematuria [] Musculoskeletal: Denies back pain or joint pain [] Integument: Denies rash or skin lesions [] Neurologic: Denies headache, focal weakness or sensory changes [] Endocrine: Denies polyuria or polydipsia [] Current Medications Current Medications Current Medications Medications (Trade) Dose Ordered Sig/Tracy Start Time Stop Time Status Last Admin Dose Admin Calcium Gluconate 1,000 mg 1X ONCE 01/29/17 13:45 01/29/17 13:46 DC 01/29/17 14:19 1,000 MG Dextrose 25 gm 1X ONCE 01/29/17 13:45 01/29/17 13:46 DC 01/29/17 14:29 25 GM Furosemide (Lasix) 40 mg 1X ONCE 01/29/17 13:45 01/29/17 13:46 DC 01/29/17 14:33 40 MG Insulin Human Regular (Novolin R Vial) 10 unit 1X ONCE 01/29/17 13:45 01/29/17 13:46 DC 01/29/17 14:32 10 UNIT Allergies Allergies Allergies Coded Allergies Type Severity Reaction Last Updated Verified [id number]-Ifx Reductase Inhibitor Allergy Severe Brain swelling. 09/18/15 Yes gabapentin Allergy Severe Brain swelling 09/18/15 Yes sulfamethoxazole Allergy Intermediate 01/01/17 Yes trimethoprim Allergy Intermediate 01/01/17 Yes Physical Exam Physical Exam Constitutional: Well developed, well nourished, no acute distress, non-toxic appearance. [] HENT: Normocephalic, atraumatic, bilateral external ears normal, oropharynx moist, no oral exudates, nose normal. [] Eyes: PERRLA, EOMI. Left periorbital ecchymosis from recent procedure [] Neck: Normal range of motion, supple. [] Cardiovascular:Heart rate regular rhythm [] Lungs & Thorax: Bilateral breath sounds clear to auscultation [] Abdomen: Bowel sounds normal, soft, no tenderness, no masses. [] Skin: Warm, dry, no erythema, no rash. [] Back: No tenderness, no CVA tenderness. [] Extremities: No tenderness, ROM intact, 1+ bilateral lower ext edema proximally with compression stockings distally. [] Neurologic: Alert and oriented X 3, normal motor function, normal sensory function, no focal deficits noted. [] Psychologic: Affect normal, judgement normal, mood normal. [] Current Patient Data Vital Signs Vital Signs Date Time Temp Pulse Resp B/P Pulse Ox O2 Delivery O2 Flow Rate FiO2 01/29/17 13:50 69 14 133/74 95 01/29/17 12:55 97.6 Room Air 97.6 Lab Values Laboratory Tests Test 01/29/17 12:45 White Blood Count 4.2x10^3/uL (4.0-11.0) Red Blood Count 3.18x10^6/uL (4.30-5.70) L Hemoglobin 10.3g/dL (13.0-17.5) L Hematocrit 31.4% (39.0-53.0) L Mean Corpuscular Volume 99fL (79-100) Mean Corpuscular Hemoglobin 32pg (25-35) Mean Corpuscular Hemoglobin Concent 33g/dL (31-37) Red Cell Distribution Width 14.9% (11.5-14.5) H Platelet Count 66x10^3/uL (140-400) L Neutrophils (%) (Auto) 64% (31-73) Lymphocytes (%) (Auto) 22% (24-48) L Monocytes (%) (Auto) 13% (0-9) H Eosinophils (%) (Auto) 1% (0-3) Basophils (%) (Auto) 1% (0-3) Neutrophils # (Auto) 2.7x10^3uL (1.8-7.7) Lymphocytes # (Auto) 0.9x10^3/uL (1.0-4.8) L Monocytes # (Auto) 0.5x10^3/uL (0.0-1.1) Eosinophils # (Auto) 0.0x10^3/uL (0.0-0.7) Basophils # (Auto) 0.0x10^3/uL (0.0-0.2) Prothrombin Time 24.0SEC (11.7-14.0) H Prothrombin Time INR 2.3 (0.8-1.1) H Sodium Level 129mmol/L (136-145) L Potassium Level 6.7mmol/L (3.5-5.1) *H Chloride Level 96mmol/L (98-107) L Carbon Dioxide Level 22mmol/L (21-32) Anion Gap 11 (6-14) Blood Urea Nitrogen 150mg/dL (8-26) H Creatinine 5.2mg/dL (0.7-1.3) H Estimated GFR (Cockcroft-Gault) 10.7 Glucose Level 161mg/dL (70-99) H Calcium Level 7.6mg/dL (8.5-10.1) L Troponin I Quantitative < 0.017ng/mL (0.000-0.055) EQ-Akr-Q-Type Natriuretic Peptide 2959pg/mL (0-449) H Laboratory Tests 01/29/17 12:45 Laboratory Tests 01/29/17 12:45 EKG EKG EKG as interpreted by me as ventricularly paced rhythm, rate 70s Radiology/Procedures Radiology/Procedures Chest xray as interpreted by me with no acute cardiopulmonary disease process Course & Med Decision Making Course & Med Decision Making Pertinent Labs and Imaging studies reviewed. (See chart for details) Laboratory evaluation reveals hyperkalemia and acute on chronic renal failure. This was treated with calcium gluconate, insulin and dextrose, and Lasix. Good catheter was placed with approximately 250 mL return. Discussed case with Dr. Crooks, nephrology, recommending stat IR consult for hemodialysis catheter placement. Discussed case with Dr. Carvalho, who will admit. Discussed case with Dr. Marie, interventional radiology, to place dialysis catheter. Dragon Disclaimer Dragon Disclaimer This electronic medical record was generated, in whole or in part, using a voice recognition dictation system. Departure Departure Impression: Primary Impression: Acute renal failure Additional Impression: Acute hyperkalemia Disposition: ADMITTED INPATIENT Condition: GUARDED Referrals: STEFANIE VAIL MD (PCP) Problem Qualifiers Primary Impression: Acute renal failure Acute renal failure type: unspecified Qualified Code: N17.9 - Acute kidney failure, unspecified Sarahi OWENS MD Jan 29, 2017 14:00
[2017-01-29] MEDS ORDERED: ONDANSETRON PF 4 MG/2 ML VIAL. IV PRN ×2 (14:15→14:39)
[2017-01-29] MEDS ORDERED: FENTANYL PF 100 MCG/2 ML VIAL. IV PRN (14:15)
[2017-01-29] MEDS ORDERED: ACETAMINOPHEN 325 MG TABLET. PO PRN (14:15)
[2017-01-29] MEDS ORDERED: DEXTROSE 50% 25 GM / 50ML DISP.SYRIN. IV PRN (14:45)
--- NOTE | 2017-01-29 14:46 | ACF ---
Admission Forms Criteria RENAL FAILURE, ACUTE Clinical Indications for Admission to Inpatient Care ( Place 'X' for any and all applicable criteria): Admission is indicated for ALL (if I & II) or III of the following [A](2)(3)(4)( 5)(6)(7): [X]I. Acute renal failure as indicated by ANY ONE of the following: [X]a) A 3-fold rise in serum creatinine from baseline [ ]b) Serum creatinine greater than 4 mg/dL (354 micromoles/L) with an acute rise greater than 0.5 mg/dL (44.2 micromoles/L) [ ]c) Reduction of more than 75% in estimated glomerular filtration rate from baseline [ ]d) Estimated glomerular filtration rate less than 35 mL/min/1.73m2 (0.59mL/sec/1.73m2)in a child up to 18 years of age [ ]e) Anuria indicated by ALL of the following: [ ]i) Adequate volume status [ ]ii) Cessation of urine output indicated by ANY ONE of the following: [ ]1) Urine output less than 0.3 mL/kg/hr for 24 hours [ ]2) Anuria (urine output less than 0.1 mL/kg/ hr) for 12 hours [X] II. Renal failure cannot be managed in an outpatient setting or observational care setting as indicating by ANY ONE of the following: [ ]a) Altered mental status that is severe or persistent [ ]b) Volume overload or Respiratory distress (eg, clinically significant pulmonary edema) that is severe or persistent [ ]c) Cardiac arrhythmias of immediate concern [ ]d) Hemodynamic instability [ ]e) Clinically significant electrolyte abnormality that requires inpatient care (eg, hyperkalemia with severe ECG findings)[B] [ ]f) Clinically significant metabolic abnormality (eg, acidosis) that is severe or persistent [ ]g) Acute treatment of renal failure (eg, renal replacement therapy) not feasible or appropriate in observational care setting [X]h) Clinical situation too unstable or uncertain (eg, inadequate urine output, ongoing decline in renal function, etiology unclear) [ ]i) Necessary support and caregiver ability to comply with outpatient treatment cannot be arranged in observation care timeframe (eg, within 24 hours) [ ]j) Other significant finding or clinical condition judged not to be within scope of observation care [ ]III.General contraindications and/or Inappropriate clinical situations for Observational Care in patients with Acute Renal Failure, when ANY ONE of the following is required: [ ]a) Prediction of prolongation of LOS based on ANY ONE of the following may be considered as a contraindication for observational care 2, 3, 4, 5, 6, 7, 8 , 9, 10, 11 [ ]i) Age > 65 yrs. [ ]ii) Patient arriving by ambulance [ ]iii) Patient with high acuity [ ]iv) Patient requiring vital sign monitoring [ ]v) Patient on IV medication [ ]b) Systolic blood pressures 180mmHg 3,12 [ ]c) Patient with altered mental status including delirium and other alteration of consciousness, (3) [ ]d) Patient whose discharge disposition will be to a snf home or rehabilitation home should not be managed in Emergency Department Observation Unit. CMS rule requires 3 days hospital stay before such placement.3,13 [ ]e) Patient with failure to thrive due to broad array of etiologies 3, 16,17 [ ]f) Inability to ambulate 3,14 Extended stay beyond goal length of stay may be needed for(13) [ ]a) Continuing uremic complications [ ]b) Care for comorbidities [ ]c) acute renal failure [ ]d) Need for dialysis The original [email or web address] content created by [email or web address] has been revised. The portions of the content which have been revised are identified through the use of italic text or in bold, and [facility] has neither reviewed nor approved the modified material. All other unmodified content is copyright [email or web address]. Please see references footnoted in the original [facility] 2016 Admission Criteria Met?: Yes SHERRIE WONG Jan 29, 2017 14:46
--- NOTE | 2017-01-29 14:53 | PDOC1 ---
History and Physical Date of Admission Date of Admission DATE: 01/29/17 TIME: 14:45 Identification/Chief Complaint Chief Complaint lethargy Source Source: Caregiver, Chart review History of Present Illness History of Present Illness 81 y.o male who was just dcd here jan 05 for: 1. LE edema 2. Ascites, scrotal edema 3. Decompensated HF 4. 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 SSS s/p PPM 7. PAFIB; maintaining SR HE had some TIM on CKD, dcd on HH. BUt soon after,weak, lethargy. reports of change in MS, dec mentation per , Labs here shows Crea that jumped to 5 from 2, K 6.7 - hx of CAD and CHF abd SSS with indwelling pacer and he is paced, Denies CP. MINIMAL UO at home and at ER, ash inserted only 250cc out LAst UO was 1 day [employer] Did discuss with ER MD, needs Stat call out to renal, likely dialyze LAter on, HD plans indeed ON THE WORKS, planned for HD cath insertion by IR today but iNR 2 plus on warfarin Will reverse with FFPs and vitamin K to allow HD cath insertion today SO far no gap and bicarb ok Past Medical History Cardiovascular: AFIB, CAD, CHF, HTN, AR, Hyperlipidemia, Other Pulmonary: Pneumonia, Other GI: GERD Heme/Onc: Anemia NOS, Cancer Musculoskeletal: low back pain, Osteoarthritis Renal/: Chronic renal insuff Endocrine: Diabetes Past Surgical History Past Surgical History: Pacemaker, Tonsillectomy Family History Family History: Heart Disease Social History Smoke: No ALCOHOL: none Drugs: None Current Problem List Problem List Problems Medical Problems: (1) Acute hyperkalemia Status: Acute (2) Acute renal failure Status: Acute Problems: Current Medications Current Medications Current Medications Calcium Gluconate 1,000 mg 1X ONCE IVP Last administered on 01/29/17 14:19; Start 01/29/17 at 13:45; Stop 01/29/17 at 13:46; Status DC Dextrose 25 gm 1X ONCE IV Last administered on 01/29/17 14:29; Start 01/29/17 at 13:45; Stop 01/29/17 at 13:46; Status DC Insulin Human Regular (Novolin R Vial) 10 unit 1X ONCE IV Last administered on 01/29/17 14:32; Start 01/29/17 at 13:45; Stop 01/29/17 at 13:46; Status DC Furosemide (Lasix) 40 mg 1X ONCE IVP Last administered on 01/29/17 14:33; Start 01/29/17 at 13:45; Stop 01/29/17 at 13:46; Status DC Oxycodone/ Acetaminophen (Percocet 5/325) 1 tab 1X ONCE PO Last administered on 01/29/17 14:18; Start 01/29/17 at 14:00; Stop 01/29/17 at 14:02; Status DC Ondansetron HCl (Zofran) 4 mg PRN Q8HRS PRN IV NAUSEA/VOMITING; Start 01/29/17 at 14:15; Stop 01/29/17 at 14:43; Status DC Fentanyl Citrate 50 mcg 50 mcg PRN Q2HR PRN IV PAIN; Start 01/29/17 at 14:15; Stop 01/30/17 at 14:14 Sodium Chloride (Iv Sodium Chloride 0.9% 1000ml Bag) 1,000 ml @ 75 mls/hr [id number] IV ; Start 01/29/17 at 14:12; Stop 01/30/17 at 14:11 Acetaminophen (Tylenol) 650 mg PRN Q4HRS PRN PO FEVER; Start 01/29/17 at 14:15; Stop 01/30/17 at 14:14 Ondansetron HCl (Zofran) 4 mg PRN Q6HRS PRN IV NAUSEA/VOMITING; Start 01/29/17 at 14:39; Status UNV Alprazolam (Xanax) 0.5 mg TID PRN PO nerves; Start 01/29/17 at 14:45; Status UNV Calcitriol (Rocaltrol) 0.25 mcg DAILY PO ; Start 01/30/17 at 09:00; Status UNV Dorzolamide/ Timolol (Cosopt) 1 drop BID OU ; Start 01/29/17 at 21:00; Status UNV Ferrous Sulfate (Feosol) 325 mg DAILY PO ; Start 01/30/17 at 09:00; Status UNV Folic Acid (Folic Acid) 2 mg TID PO ; Start 01/29/17 at 21:00; Status UNV Gemfibrozil (Lopid) 600 mg BID PO ; Start 01/29/17 at 21:00; Status UNV Latanoprost (Xalatan) 1 drop QHS OU ; Start 01/29/17 at 21:00; Status UNV Amylase/Lipase/ Protease (Zenpep 5,000) 4 cap DAILY PO ; Start 01/30/17 at 09:00 ; Status UNV Metoprolol Tartrate (Lopressor) 50 mg DAILY PO ; Start 01/30/17 at 09:00; Status UNV Fish Oil (Fish Oil) 1,000 mg DAILY PO ; Start 01/30/17 at 09:00; Status UNV Pregabalin (Lyrica) 75 mg BID PO ; Start 01/29/17 at 21:00; Status UNV Ropinirole HCl (Requip) 1 mg HS PO ; Start 01/29/17 at 21:00; Status UNV Sennosides (Senna) 8.6 mg BID PO ; Start 01/29/17 at 21:00; Status UNV Spironolactone (Aldactone) 25 mg DAILY PO ; Start 01/30/17 at 09:00; Status UNV Tamsulosin HCl (Flomax) 0.8 mg DAILY PO ; Start 01/30/17 at 09:00; Status UNV Non-Formulary Medication 22 unit HS SQ ; Start 01/29/17 at 21:00; Status UNV Non-Formulary Medication 8 unit TID SQ ; Start 01/29/17 at 21:00; Status UNV Non-Formulary Medication 20 mg DAILY PO ; Start 01/30/17 at 09:00; Status UNV Morphine Sulfate (Ms Contin) 30 mg BID PO ; Start 01/29/17 at 21:00; Status UNV Phytonadione (Mephyton) 5 mg 1X ONCE PO ; Start 01/29/17 at 14:45; Stop 01/29/17 at 14:46; Status UNV Active Scripts Active Lasix (Furosemide) 80 Mg Tablet 1 Tab PO DAILY Reported Aspir 81 (Aspirin) 81 Mg Tablet.dr 1 Tab PO DAILY Senokot (Sennosides) 8.6 Mg Tablet 3 Tab PO BID Morphine Sulfate Er (Morphine Sulfate) 60 Mg Cap.er.pel 60 Mg PO Metoprolol Tartrate 50 Mg Tablet 0.5 Tab PO DAILY Latanoprost 2.5 Ml Drops 1 Drop EACHEYE QHS Gemfibrozil 600 Mg Tablet 1 Tab PO BID Dorzolamide-Timolol Eye Drops (Dorzolamide Hcl/Timolol Maleat) 10 Ml Drops 1 Drop RIGHTEYE BID Lyrica (Pregabalin) 75 Mg Capsule 1 Cap PO BID Alprazolam 0.5 Mg Tablet 1 Tab PO TID Warfarin Sodium 4 Mg Tablet 1 Tab PO DAILY Fish Oil 1,000 Mg Capsule ([place]-3 Fatty Acids/Fish Oil) 1 Each Capsule 4 Each PO DAILY Pancrelipase Dr 5,000 Unit Cap (Lipase/Protease/Amylase) 1 Each Capsule.dr 4 Each PO Prilosec Otc (Omeprazole Magnesium) 20 Mg Tablet.dr 20 Mg PO DAILY Lyrica (Pregabalin) 25 Mg Capsule 50 Mg PO TID 30 Days Gemfibrozil 600 Mg Tablet 600 Mg PO BID Spironolactone 25 Mg Tablet 25 Mg PO DAILY Calcitriol 0.25 Mcg Capsule 0.25 Mcg PO DAILY Lantus (Insulin Glargine,Hum.rec.anlog) 100 Unit/1 Ml Vial 22 Unit SQ HS Humalog (Insulin Lispro) 100 Unit/1 Ml Vial 8 Unit SQ TID Folic Acid 1 Mg Tablet 2 Mg PO TID Ferosul (Ferrous Sulfate) 325 Mg Tablet 325 Mg PO Ropinirole Hcl 1 Mg Tablet 1 Mg PO HS Tamsulosin Hcl 0.4 Mg Cap.er.24h 0.8 Mg PO DAILY Travatan Z (Travoprost) 5 Ml Drops 5 Ml OP Allergies Allergies: Coded Allergies: Hdooydw-Wag-Kpo Reductase Inhibitor (Verified Allergy, Severe, Brain swelling. , 09/18/15) Pt was taking Gabapentin with a Statin and per . "It almost killed him." gabapentin (Verified Allergy, Severe, Brain swelling, 09/18/15) Per pt had Gabapentin with a Statin and it caused brain swelling, "almost killed him." sulfamethoxazole (Verified Allergy, Intermediate, 01/01/17) trimethoprim (Verified Allergy, Intermediate, 01/01/17) ROS Review of System lethargic - cant be obtained Physical Exam General: No acute distress, Other (lethargic) HEENT: Atraumatic, EOMI Lungs: Clear to auscultation, Normal air movement Heart: S1S2, RRR, no thrills, no rubs, no gallops Cardiovascular: S1, S2 Breasts: Normal Abdomen: Normal bowel sounds, Soft, No tenderness, No hepatosplenomegaly, No masses Male Genitals Exam: normal genitalia, normal prostate Extremities: No clubbing, No cyanosis, No edema, Normal pulses, No tenderness/ swelling, Other (chronic swelling, no worse) Skin: No rashes, No breakdown, No significant lesion Psych/Mental Status: Mental status NL, Mood NL Vitals Vitals Vital Signs Date Time Temp Pulse Resp B/P Pulse Ox O2 Delivery O2 Flow Rate FiO2 01/29/17 14:18 17 95 Room Air 01/29/17 12:55 97.6 70 126/65 97.6 Labs Labs Laboratory Tests Test 01/29/17 12:45 White Blood Count 4.2x10^3/uL (4.0-11.0) Red Blood Count 3.18x10^6/uL (4.30-5.70) Hemoglobin 10.3g/dL (13.0-17.5) Hematocrit 31.4% (39.0-53.0) Mean Corpuscular Volume 99fL (79-100) Mean Corpuscular Hemoglobin 32pg (25-35) Mean Corpuscular Hemoglobin Concent 33g/dL (31-37) Red Cell Distribution Width 14.9% (11.5-14.5) Platelet Count 66x10^3/uL (140-400) Neutrophils (%) (Auto) 64% (31-73) Lymphocytes (%) (Auto) 22% (24-48) Monocytes (%) (Auto) 13% (0-9) Eosinophils (%) (Auto) 1% (0-3) Basophils (%) (Auto) 1% (0-3) Neutrophils # (Auto) 2.7x10^3uL (1.8-7.7) Lymphocytes # (Auto) 0.9x10^3/uL (1.0-4.8) Monocytes # (Auto) 0.5x10^3/uL (0.0-1.1) Eosinophils # (Auto) 0.0x10^3/uL (0.0-0.7) Basophils # (Auto) 0.0x10^3/uL (0.0-0.2) Prothrombin Time 24.0SEC (11.7-14.0) Prothromb Time International Ratio 2.3 (0.8-1.1) Sodium Level 129mmol/L (136-145) Potassium Level 6.7mmol/L (3.5-5.1) Chloride Level 96mmol/L (98-107) Carbon Dioxide Level 22mmol/L (21-32) Anion Gap 11 (6-14) Blood Urea Nitrogen 150mg/dL (8-26) Creatinine 5.2mg/dL (0.7-1.3) Estimated GFR (Cockcroft-Gault) 10.7 Glucose Level 161mg/dL (70-99) Calcium Level 7.6mg/dL (8.5-10.1) Troponin I Quantitative < 0.017ng/mL (0.000-0.055) SM-Zhi-C-Type Natriuretic Peptide 2959pg/mL (0-449) Laboratory Tests Test 01/29/17 12:45 White Blood Count 4.2x10^3/uL (4.0-11.0) Red Blood Count 3.18x10^6/uL (4.30-5.70) Hemoglobin 10.3g/dL (13.0-17.5) Hematocrit 31.4% (39.0-53.0) Mean Corpuscular Volume 99fL (79-100) Mean Corpuscular Hemoglobin 32pg (25-35) Mean Corpuscular Hemoglobin Concent 33g/dL (31-37) Red Cell Distribution Width 14.9% (11.5-14.5) Platelet Count 66x10^3/uL (140-400) Neutrophils (%) (Auto) 64% (31-73) Lymphocytes (%) (Auto) 22% (24-48) Monocytes (%) (Auto) 13% (0-9) Eosinophils (%) (Auto) 1% (0-3) Basophils (%) (Auto) 1% (0-3) Neutrophils # (Auto) 2.7x10^3uL (1.8-7.7) Lymphocytes # (Auto) 0.9x10^3/uL (1.0-4.8) Monocytes # (Auto) 0.5x10^3/uL (0.0-1.1) Eosinophils # (Auto) 0.0x10^3/uL (0.0-0.7) Basophils # (Auto) 0.0x10^3/uL (0.0-0.2) Prothrombin Time 24.0SEC (11.7-14.0) Prothromb Time International Ratio 2.3 (0.8-1.1) Sodium Level 129mmol/L (136-145) Potassium Level 6.7mmol/L (3.5-5.1) Chloride Level 96mmol/L (98-107) Carbon Dioxide Level 22mmol/L (21-32) Anion Gap 11 (6-14) Blood Urea Nitrogen 150mg/dL (8-26) Creatinine 5.2mg/dL (0.7-1.3) Estimated GFR (Cockcroft-Gault) 10.7 Glucose Level 161mg/dL (70-99) Calcium Level 7.6mg/dL (8.5-10.1) Troponin I Quantitative < 0.017ng/mL (0.000-0.055) VW-Ywt-A-Type Natriuretic Peptide 2959pg/mL (0-449) VTE Prophylaxis Ordered VTE Prophylaxis Devices: Yes VTE Pharmacological Prophylaxi: Yes Assessment/Plan Assessment/Plan 1. 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 Hyperkalemia 4. chronic LE edema stable 5. CHF 4. Multivessel CAD s/p recent CABG 6. SSS with indwelling PPM 7. PAFIB; maintaining SR 8. HIgh INR on coumadin PLAn: REVERse INR to allow HD cath insertion today Plans on HD today or milagros, as soon as cath inserted MAintain ash REsume meds except ASA and warf MAy resume blood thinners after HD cath insertion \\Renal diet PT/OT Dw and ER MD Nutrition consult Renal panel milagros AM CC 30 mins ENRIQUE ALCALA MD Jan 29, 2017 14:53
[2017-01-29] MEDS ORDERED: IV NORMAL SALINE 500ML BAG 500 ML IV ONE (15:15)
--- NOTE | 2017-01-29 15:19 | EKG ---
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
[2017-01-29] MEDS ORDERED: PHYTONADIONE (VIT K1) 5 MG TABLET PO ONE (15:30)
[2017-01-29] MEDS ORDERED: HEPARIN for IV BOLUS 10,000 UNIT/10 ML VIAL. ONE (15:30)
[2017-01-29] MEDS: FOLIC ACID 1 MG TABLET PO SCH ×2 (15:30→22:24)
[2017-01-29] MEDS ORDERED: LIDOCAINE 1%/EPI 1:100,000 20 ML VIAL. ONE (15:31)
[2017-01-29 15:45] VITALS: BP 132/67
[2017-01-29] MEDS ORDERED: LIDOCAINE 1%/EPI 1:100,000 20 ML VIAL. IJ ONE (16:00)
[2017-01-29] MEDS: INSULIN ASPART 300 UNITS/3 ML INSULN.PEN SQ SCH ×2 (16:30→17:00)
--- NOTE | 2017-01-29 16:44 | PDOC ---
Exam Iv Technician Iv Technician Kirt Information Lead Information Lead n/a Pre-Procedure Diagnosis Pre-Procedure Diagnosis renal failure hyperkalemia Post-Procedure Diagnosis Post-Procedure Diagnosis same Procedure Performed Procedure Performed non tunneled HD Catheter placement Type of Anesthesia Type of Anesthesia local Estimated Blood Loss EBL: trace Specimens Specimans n/a Drain/Tubes Drains/Tubes 14.5FR x 20cm Schon HD catheter Condition of Patient Condition of Patient no change Disposition Disposition to ED SRI WAGNER MD Jan 29, 2017 16:44
--- NOTE | 2017-01-29 17:13 | RAD ---
Ultrasound-guided vascular access, non tunnelled hemodialysis catheter placement History: Renal failure. Fluoroscopy time: 1.2 minutes 1 exposure Procedure: Written informed consent was obtained. The targeted vein was reviewed sonographically and shown to be widely patent. Sonographic imaging was used to evaluate the needle access. Appropriate permanent images preprocedure were obtained and stored in the patient's permanent record. This demonstrates the targeted vessel to be patent. All elements of maximal sterile barrier technique, including the use of a cap, mask, sterile gown, sterile gloves, large sterile sheet, appropriate hand hygiene, and 2% chlorhexidine for cutaneous antisepsis (or acceptable alternative antiseptic per current guidelines) were utilized. The area was draped and prepped in normal sterile fashion. Local anesthesia with 1% Lidocaine was made. Under real-time ultrasound guidance a 21-gauge needle was advanced into the targeted vein. Needle placement was confirmed by return of venous blood flow. A 0.018 wire was placed through the needle and the needle was exchanged over the wire after dermatotomy for a 4 Malay transitional sheath. This was used to introduce a stiff guidewire. The transitional sheath was then exchanged over the wire for fascial dilators to enlarge the venotomy site. A temporary hemolysis catheter was then placed over the wire. Clinical function of the catheter was tested with good results. The catheter was secured in place. The patient tolerated tolerated the procedure with local anesthesia. A Spot film radiograph was performed in followup. Impression: Placement of temporary hemodialysis catheter via right internal jugular vein approach.
[2017-01-29] MEDS ORDERED: IV NORMAL SALINE 1000ML BAG 1,000 ML IV PRN (17:31)
[2017-01-29] MEDS ORDERED: 0.9 % SODIUM CHLORIDE 10 ML DISP.SYRIN. IV PRN ×2 (17:45)
[2017-01-29] MEDS ORDERED: DIALYSIS PATIENT. MC PRN ×2 (17:45)
[2017-01-29] MEDS ORDERED: ALBUMIN HUMAN 25% 200 ML IV PRN (17:45)
[2017-01-29 20:30] VITALS: BP 161/82
[2017-01-29] MEDS ORDERED: DIFL5DRO2 OS (20:36)
[2017-01-29] MEDS ORDERED: [UNRECOGNIZED DRUG - CODE] OS (20:36)
[2017-01-29] MEDS ORDERED: INSULIN DETEMIR 300 UNITS/3 ML INSULN.PEN. SQ SCH (21:00)
[2017-01-29] MEDS: IV NORMAL SALINE 1000ML BAG 1,000 ML IV SCH (22:15)
[2017-01-29] MEDS: rOPINIRole 1 MG TABLET. PO SCH (22:24)
[2017-01-29] MEDS: PREGABALIN 75 MG CAPSULE PO SCH (22:26)
[2017-01-29] MEDS: SENNOSIDES 8.6 MG TABLET PO SCH (22:26)
[2017-01-29] MEDS: WARFARIN 4 MG TABLET. PO SCH (22:26)
[2017-01-29] MEDS: MORPHINE ER 30 MG TABLET.ER PO SCH (22:27)
[2017-01-29] MEDS: GEMFIBROZIL 600 MG TABLET. PO SCH (22:27)
[2017-01-29] MEDS: DORZOLAMIDE/TIMOLOL 2%/0.5% OPHTH SOLUTION 10ML BOTTLE. OU SCH (22:31)
[2017-01-29] MEDS: LATANOPROST 0.005% OPHTH SOLUTION 2.5ML BOTTLE. OU SCH (22:41)
[2017-01-29 23:43] VITALS: BP 172/90
[2017-01-30] VITALS (10 sets, daily range): BP systolic 121–157; BP diastolic 58–86
[2017-01-30] MEDS: IV NORMAL SALINE 1000ML BAG 1,000 ML IV SCH (03:32)
[2017-01-30 06:01] LABS: BASO % 0 % (0-3); EOS % 1 % (0-3); HEMATOCRIT 28.6 % (39.0-53.0); HEMOGLOBIN 9.6 g/dL (13.0-17.5); LYMPH # 0.6 x10^3/uL (1.0-4.8); LYMPH % 18 % (24-48); MEAN CORPUSCULAR HEMOGLOBIN 32 pg (25-35); MEAN CORPUSCULAR HGB CONC 34 g/dL (31-37); MEAN CORPUSCULAR VOLUME 96 fL (79-100); MONO % 12 % (0-9); NEUT % 69 % (31-73); PLATELET COUNT 56 x10^3/uL (140-400); RED BLOOD COUNT 2.99 x10^6/uL (4.30-5.70); RED CELL DISTRIBUTION WIDTH 14.4 % (11.5-14.5); WHITE BLOOD COUNT 3.5 x10^3/uL (4.0-11.0)
[2017-01-30 06:09] LABS: INR 1.9 (0.8-1.1)
[2017-01-30 06:34] LABS: CALCIUM 7.6 mg/dL (8.5-10.1); CREATININE 2.6 mg/dL (0.7-1.3); GFR 23.8; POTASSIUM 4.9 mmol/L (3.5-5.1)
[2017-01-30] MEDS: INSULIN ASPART 300 UNITS/3 ML INSULN.PEN SQ SCH ×6 (08:00→16:29)
[2017-01-30] MEDS: LIPASE/PROTEAS/AMYLASE 5/17/27 CAPSULE.DR. PO SCH (08:34)
[2017-01-30] MEDS: GEMFIBROZIL 600 MG TABLET. PO SCH ×2 (08:34→16:21)
[2017-01-30] MEDS: OMEGA-3 FATTY ACIDS/FISH OIL 1,000 MG CAPSULE. PO SCH (08:35)
[2017-01-30] MEDS: METOPROLOL TART IMMED RELEASE 50 MG TABLET PO SCH (08:35)
[2017-01-30] MEDS: TAMSULOSIN 0.4 MG CAP.ER.24H. PO SCH (08:35)
[2017-01-30] MEDS: PREGABALIN 75 MG CAPSULE PO SCH ×2 (08:36→20:52)
[2017-01-30] MEDS: CALCITRIOL 0.25 MCG CAPSULE PO SCH (08:36)
[2017-01-30] MEDS: SPIRONOLACTONE 25 MG TABLET PO SCH (08:37)
[2017-01-30] MEDS: PANTOPRAZOLE 40 MG TABLET. PO SCH (08:37)
[2017-01-30] MEDS: FERROUS SULFATE 325 MG TABLET PO SCH (08:37)
[2017-01-30] MEDS: SENNOSIDES 8.6 MG TABLET PO SCH ×2 (08:37→20:53)
[2017-01-30] MEDS: FOLIC ACID 1 MG TABLET PO SCH ×3 (08:38→20:53)
[2017-01-30] MEDS: DORZOLAMIDE/TIMOLOL 2%/0.5% OPHTH SOLUTION 10ML BOTTLE. OU SCH ×2 (08:38→20:53)
[2017-01-30] MEDS: ASPIRIN ENTERIC COATED 81 MG TABLET.DR. PO SCH (08:38)
[2017-01-30] MEDS: MORPHINE ER 30 MG TABLET.ER PO SCH ×2 (08:38→20:53)
--- NOTE | 2017-01-30 11:09 | CONS ---
DATE OF CONSULTATION: 01/29/2017 REQUESTING PHYSICIAN: Hospitalist. REASON FOR CONSULTATION: Renal failure. HISTORY OF PRESENT ILLNESS: This is an 81-year-old gentleman with acute on chronic kidney disease. This has occurred in the setting of hypertension, decompensation and cardiomyopathy. The patient presents today with increasing edema including ____ scrotal edema as well as progressive rise in azotemia and increased potassium of 6.7. Dialysis have been discussed in the past. The patient and were agreeable with the same today. PAST MEDICAL HISTORY: 1. Hypertension. 2. Chronic kidney disease - not ESRD status. 3. Coronary artery disease with congestive cardiomyopathy. 4. Hyperlipidemia. 5. Atrial fibrillation. 6. Pneumonia. 7. GE reflux disease. 8. Anemia. 9. Osteoarthritis. 10. Diabetes mellitus. ALLERGIES: STATINS, ____, COLACE, REDUCTASE INHIBITORS, GABAPENTIN, SULFA, TRIMETHOPRIM. MEDICATIONS: Noted. FAMILY HISTORY: Noncontributory. SOCIAL HISTORY: The patient has assistance from . No alcohol use, no tobacco use at this time. REVIEW OF SYSTEMS: No headaches, sinus problem, nasal drainage, epistaxis, change in vision or hearing, no difficulty swallowing. No fever, chills, cough, sputum production, or hemoptysis. No chest pain. He does get dyspnea on exertion. He has abdominal distention. No nausea or vomiting. He does have weakness. No seizures or malignancies. He has edema. He has scrotal edema. PHYSICAL EXAMINATION: GENERAL: The patient awakens and is conversant. He is weak. HEENT: Sallow complexion; otherwise clear. NECK: No increased JVD. No thyromegaly, mass or adenopathy. LUNGS: Decreased breath sounds at bases. CARDIAC: Without S3 or rub. ABDOMEN: Distended. EXTREMITIES: Without edema. NEUROPSYCHIATRIC: Weak ____ follows appropriately. LABORATORY DATA: Potassium 6.7, CO2 22, creatinine 5.2, BUN 150, GFR is 10.7, hemoglobin 10.3, hematocrit 31. IMPRESSION: 1. Renal failure, not end-stage renal disease status. 2. Hyperkalemia due to renal failure. 3. Volume overload. RECOMMENDATIONS: Dialysis catheter, proceed with acute dialysis today. We will also plan for dialysis tomorrow. MAK PINK MD DR: EVELYNE/elpidio JOB#: [id number] / [id number]
--- NOTE | 2017-01-30 11:28 | PDOC ---
PROGRESS NOTES Chief Complaint Chief Complaint 1. Oliguric, hyperkalemic renal failure POA, needing STAT initiation of HD ( first session 01/29/17), 2 TIM on CKD, maybe even ESRD now needing stat HD initiation 3. MEtabolic encephalopathy 4. chronic LE edema stable 5. CHF 4. Multivessel CAD s/p recent CABG 6. SSS with indwelling PPM 7. PAFIB; maintaining SR 8. Therapeutic INR on coumadin 9. Acute on chronic back pain, indwelling back stimulator - needs adjustment History of Present Illness History of Present Illness Numbers better after first session HD yesterday Pt cant recall the details very involved in his care Only got 1 FFP yesterday (prior to HD cath insertion) (INR was 2,3 on warfarin for cardiac related issues) But HD cath inserted and now running second session HD I see that Hepatitis panel has been ordered- looking at OP HD set up now aware Relays back pain - lidoderm patch HELPS BUT IS WEARY TO START MDs in [facility] SAID IT GETS RENALLY EXCRETED. I did review literature on that and there was no dosage adjustments needed for renal impairment BUt still uncomfortable to restart Lidoderm patch PLAN: CBC and BMP milagros PT/OT SW OP HD set up If permanent HD cath will be inserted , the will need to hold ASA and warfarin again Physiatry consult for back pain - making talks with Torqeedo who inserted stimulator (needs some adjustments - working for the legs but not the back) dw family and RN Vitals Vitals Vital Signs Date Time Temp Pulse Resp B/P Pulse Ox O2 Delivery O2 Flow Rate FiO2 01/30/17 11:04 20 93 Nasal Cannula 2.0 01/30/17 11:00 98.1 69 121/58 98.1 Physical Exam General: No acute distress, Other (lethargic) Lungs: Clear Abdomen: Normal bowel sounds, Soft, No tenderness, No hepatosplenomegaly, No masses Extremities: No clubbing, No cyanosis, No edema, Normal pulses, No tenderness/ swelling, Other (chronic swelling, no worse) Skin: No rashes, No breakdown, No significant lesion Labs LABS Laboratory Tests Test 01/29/17 12:45 01/29/17 17:45 01/29/17 21:28 01/30/17 05:20 White Blood Count 4.2x10^3/uL (4.0-11.0) 3.5x10^3/uL (4.0-11.0) Red Blood Count 3.18x10^6/uL (4.30-5.70) 2.99x10^6/uL (4.30-5.70) Hemoglobin 10.3g/dL (13.0-17.5) 9.6g/dL (13.0-17.5) Hematocrit 31.4% (39.0-53.0) 28.6% (39.0-53.0) Mean Corpuscular Volume 99fL (79-100) 96fL (79-100) Mean Corpuscular Hemoglobin 32pg (25-35) 32pg (25-35) Mean Corpuscular Hemoglobin Concent 33g/dL (31-37) 34g/dL (31-37) Red Cell Distribution Width 14.9% (11.5-14.5) 14.4% (11.5-14.5) Platelet Count 66x10^3/uL (140-400) 56x10^3/uL (140-400) Neutrophils (%) (Auto) 64% (31-73) 69% (31-73) Lymphocytes (%) (Auto) 22% (24-48) 18% (24-48) Monocytes (%) (Auto) 13% (0-9) 12% (0-9) Eosinophils (%) (Auto) 1% (0-3) 1% (0-3) Basophils (%) (Auto) 1% (0-3) 0% (0-3) Neutrophils # (Auto) 2.7x10^3uL (1.8-7.7) 2.4x10^3uL (1.8-7.7) Lymphocytes # (Auto) 0.9x10^3/uL (1.0-4.8) 0.6x10^3/uL (1.0-4.8) Monocytes # (Auto) 0.5x10^3/uL (0.0-1.1) 0.4x10^3/uL (0.0-1.1) Eosinophils # (Auto) 0.0x10^3/uL (0.0-0.7) 0.0x10^3/uL (0.0-0.7) Basophils # (Auto) 0.0x10^3/uL (0.0-0.2) 0.0x10^3/uL (0.0-0.2) Prothrombin Time 24.0SEC (11.7-14.0) 21.0SEC (11.7-14.0) Prothromb Time International Ratio 2.3 (0.8-1.1) 1.9 (0.8-1.1) Sodium Level 129mmol/L (136-145) 138mmol/L (136-145) Potassium Level 6.7mmol/L (3.5-5.1) 4.3mmol/L (3.5-5.1) 4.9mmol/L (3.5-5.1) Chloride Level 96mmol/L (98-107) 100mmol/L (98-107) Carbon Dioxide Level 22mmol/L (21-32) 31mmol/L (21-32) Anion Gap 11 (6-14) 7 (6-14) Blood Urea Nitrogen 150mg/dL (8-26) 64mg/dL (8-26) Creatinine 5.2mg/dL (0.7-1.3) 2.6mg/dL (0.7-1.3) Estimated GFR (Cockcroft-Gault) 10.7 23.8 Glucose Level 161mg/dL (70-99) 140mg/dL (70-99) Calcium Level 7.6mg/dL (8.5-10.1) 7.6mg/dL (8.5-10.1) Troponin I Quantitative < 0.017ng/mL (0.000-0.055) DL-Dor-R-Type Natriuretic Peptide 2959pg/mL (0-449) Glucose (Fingerstick) 91mg/dL (70-99) Test 01/30/17 07:43 Glucose (Fingerstick) 120mg/dL (70-99) Review of Systems Review of Systems dementia Assessment and Plan Assessmemt and Plan Problems Medical Problems: (1) Acute hyperkalemia Status: Acute (2) Acute renal failure Status: Acute Problems: Comment Review of Relevant I have reviewed the following items sarah (where applicable) has been applied. Labs Laboratory Tests Test 01/29/17 12:45 01/29/17 17:45 01/29/17 21:28 01/30/17 05:20 White Blood Count 4.2x10^3/uL (4.0-11.0) 3.5x10^3/uL (4.0-11.0) Red Blood Count 3.18x10^6/uL (4.30-5.70) 2.99x10^6/uL (4.30-5.70) Hemoglobin 10.3g/dL (13.0-17.5) 9.6g/dL (13.0-17.5) Hematocrit 31.4% (39.0-53.0) 28.6% (39.0-53.0) Mean Corpuscular Volume 99fL (79-100) 96fL (79-100) Mean Corpuscular Hemoglobin 32pg (25-35) 32pg (25-35) Mean Corpuscular Hemoglobin Concent 33g/dL (31-37) 34g/dL (31-37) Red Cell Distribution Width 14.9% (11.5-14.5) 14.4% (11.5-14.5) Platelet Count 66x10^3/uL (140-400) 56x10^3/uL (140-400) Neutrophils (%) (Auto) 64% (31-73) 69% (31-73) Lymphocytes (%) (Auto) 22% (24-48) 18% (24-48) Monocytes (%) (Auto) 13% (0-9) 12% (0-9) Eosinophils (%) (Auto) 1% (0-3) 1% (0-3) Basophils (%) (Auto) 1% (0-3) 0% (0-3) Neutrophils # (Auto) 2.7x10^3uL (1.8-7.7) 2.4x10^3uL (1.8-7.7) Lymphocytes # (Auto) 0.9x10^3/uL (1.0-4.8) 0.6x10^3/uL (1.0-4.8) Monocytes # (Auto) 0.5x10^3/uL (0.0-1.1) 0.4x10^3/uL (0.0-1.1) Eosinophils # (Auto) 0.0x10^3/uL (0.0-0.7) 0.0x10^3/uL (0.0-0.7) Basophils # (Auto) 0.0x10^3/uL (0.0-0.2) 0.0x10^3/uL (0.0-0.2) Prothrombin Time 24.0SEC (11.7-14.0) 21.0SEC (11.7-14.0) Prothromb Time International Ratio 2.3 (0.8-1.1) 1.9 (0.8-1.1) Sodium Level 129mmol/L (136-145) 138mmol/L (136-145) Potassium Level 6.7mmol/L (3.5-5.1) 4.3mmol/L (3.5-5.1) 4.9mmol/L (3.5-5.1) Chloride Level 96mmol/L (98-107) 100mmol/L (98-107) Carbon Dioxide Level 22mmol/L (21-32) 31mmol/L (21-32) Anion Gap 11 (6-14) 7 (6-14) Blood Urea Nitrogen 150mg/dL (8-26) 64mg/dL (8-26) Creatinine 5.2mg/dL (0.7-1.3) 2.6mg/dL (0.7-1.3) Estimated GFR (Cockcroft-Gault) 10.7 23.8 Glucose Level 161mg/dL (70-99) 140mg/dL (70-99) Calcium Level 7.6mg/dL (8.5-10.1) 7.6mg/dL (8.5-10.1) Troponin I Quantitative < 0.017ng/mL (0.000-0.055) OS-Jpt-K-Type Natriuretic Peptide 2959pg/mL (0-449) Glucose (Fingerstick) 91mg/dL (70-99) Test 01/30/17 07:43 Glucose (Fingerstick) 120mg/dL (70-99) Laboratory Tests Test 01/29/17 12:45 01/29/17 17:45 01/29/17 21:28 3/5/17 05:20 White Blood Count 4.2x10^3/uL (4.0-11.0) 3.5x10^3/uL (4.0-11.0) Red Blood Count 3.18x10^6/uL (4.30-5.70) 2.99x10^6/uL (4.30-5.70) Hemoglobin 10.3g/dL (13.0-17.5) 9.6g/dL (13.0-17.5) Hematocrit 31.4% (39.0-53.0) 28.6% (39.0-53.0) Mean Corpuscular Volume 99fL (79-100) 96fL (79-100) Mean Corpuscular Hemoglobin 32pg (25-35) 32pg (25-35) Mean Corpuscular Hemoglobin Concent 33g/dL (31-37) 34g/dL (31-37) Red Cell Distribution Width 14.9% (11.5-14.5) 14.4% (11.5-14.5) Platelet Count 66x10^3/uL (140-400) 56x10^3/uL (140-400) Neutrophils (%) (Auto) 64% (31-73) 69% (31-73) Lymphocytes (%) (Auto) 22% (24-48) 18% (24-48) Monocytes (%) (Auto) 13% (0-9) 12% (0-9) Eosinophils (%) (Auto) 1% (0-3) 1% (0-3) Basophils (%) (Auto) 1% (0-3) 0% (0-3) Neutrophils # (Auto) 2.7x10^3uL (1.8-7.7) 2.4x10^3uL (1.8-7.7) Lymphocytes # (Auto) 0.9x10^3/uL (1.0-4.8) 0.6x10^3/uL (1.0-4.8) Monocytes # (Auto) 0.5x10^3/uL (0.0-1.1) 0.4x10^3/uL (0.0-1.1) Eosinophils # (Auto) 0.0x10^3/uL (0.0-0.7) 0.0x10^3/uL (0.0-0.7) Basophils # (Auto) 0.0x10^3/uL (0.0-0.2) 0.0x10^3/uL (0.0-0.2) Prothrombin Time 24.0SEC (11.7-14.0) 21.0SEC (11.7-14.0) Prothromb Time International Ratio 2.3 (0.8-1.1) 1.9 (0.8-1.1) Sodium Level 129mmol/L (136-145) 138mmol/L (136-145) Potassium Level 6.7mmol/L (3.5-5.1) 4.3mmol/L (3.5-5.1) 4.9mmol/L (3.5-5.1) Chloride Level 96mmol/L (98-107) 100mmol/L (98-107) Carbon Dioxide Level 22mmol/L (21-32) 31mmol/L (21-32) Anion Gap 11 (6-14) 7 (6-14) Blood Urea Nitrogen 150mg/dL (8-26) 64mg/dL (8-26) Creatinine 5.2mg/dL (0.7-1.3) 2.6mg/dL (0.7-1.3) Estimated GFR (Cockcroft-Gault) 10.7 23.8 Glucose Level 161mg/dL (70-99) 140mg/dL (70-99) Calcium Level 7.6mg/dL (8.5-10.1) 7.6mg/dL (8.5-10.1) Troponin I Quantitative < 0.017ng/mL (0.000-0.055) BT-Dst-H-Type Natriuretic Peptide 2959pg/mL (0-449) Glucose (Fingerstick) 91mg/dL (70-99) Test 01/30/17 07:43 Glucose (Fingerstick) 120mg/dL (70-99) Medications Current Medications Calcium Gluconate 1,000 mg 1X ONCE IVP Last administered on 01/29/17t 14:19; Start 01/29/17 at 13:45; Stop 01/29/17 at 13:46; Status DC Dextrose 25 gm 1X ONCE IV Last administered on 01/29/17 14:29; Start 01/29/17 at 13:45; Stop 01/29/17 at 13:46; Status DC Insulin Human Regular (Novolin R Vial) 10 unit 1X ONCE IV Last administered on 01/29/17 14:32; Start 01/29/17 at 13:45; Stop 01/29/17 at 13:46; Status DC Furosemide (Lasix) 40 mg 1X ONCE IVP Last administered on 01/29/17 14:33; Start 01/29/17 at 13:45; Stop 01/29/17 at 13:46; Status DC Oxycodone/ Acetaminophen (Percocet 5/325) 1 tab 1X ONCE PO Last administered on 01/29/17 14:18; Start 01/29/17 at 14:00; Stop 01/29/17 at 14:02; Status DC Ondansetron HCl (Zofran) 4 mg PRN Q8HRS PRN IV NAUSEA/VOMITING; Start 01/29/17 at 14:15; Stop 01/29/17 at 14:43; Status DC Fentanyl Citrate 50 mcg 50 mcg PRN Q2HR PRN IV PAIN Last administered on 11:04; Start 01/29/17 at 14:15; Stop 01/30/17 at 14:14 Sodium Chloride (Iv Sodium Chloride 0.9% 1000ml Bag) 1,000 ml @ 75 mls/hr [id number] IV Last administered on 01/29/17 22:15; Start 01/29/17 at 14:12; Stop at 14:11 Acetaminophen (Tylenol) 650 mg PRN Q4HRS PRN PO FEVER; Start 01/29/17 at 14:15; Stop 01/30/17 at 14:14 Ondansetron HCl (Zofran) 4 mg PRN Q6HRS PRN IV NAUSEA/VOMITING; Start 01/29/17 at 14:39 Alprazolam (Xanax) 0.5 mg PRN TID PRN PO nerves; Start 01/29/17 at 14:45 Calcitriol (Rocaltrol) 0.25 mcg DAILY PO Last administered on 01/30/17 08:36; Start 01/30/17 at 09:00 Dorzolamide/ Timolol (Cosopt) 1 drop BID OU Last administered on 01/30/17 08:38 ; Start 01/29/17 at 21:00 Ferrous Sulfate (Feosol) 325 mg DAILY PO Last administered on 01/30/17 08:37; Start 01/30/17 at 09:00 Folic Acid (Folic Acid) 2 mg TID PO Last administered on 01/30/17 08:38; Start 01/29/17 at 15:30 Gemfibrozil (Lopid) 600 mg BIDBFRMEAL PO Last administered on 01/30/17 08:34; Start 01/29/17 at 16:30 Latanoprost (Xalatan) 1 drop QHS OU Last administered on 01/29/17 22:41; Start 01/29/17 at 21:00 Amylase/Lipase/ Protease (Zenpep 5,000) 4 cap DAILY PO Last administered on 01/30 08:34; Start 01/30/17 at 09:00 Metoprolol Tartrate (Lopressor) 50 mg DAILY PO Last administered on 01/30/17 08 :35; Start 01/30/17 at 09:00 Fish Oil (Fish Oil) 1,000 mg DAILY PO Last administered on 01/30/17 08:35; Start 01/30/17 at 09:00 Pregabalin (Lyrica) 75 mg BID PO Last administered on 01/30/17 08:36; Start 01/29/17 at 21:00 Ropinirole HCl (Requip) 1 mg HS PO Last administered on 01/29/17 22:24; Start 01/29/17 at 21:00 Sennosides (Senna) 8.6 mg BID PO Last administered on 01/30/17 08:37; Start 01/29/17 at 21:00 Spironolactone (Aldactone) 25 mg DAILY PO Last administered on 01/30/17 08:37; Start 01/30/17 at 09:00 Tamsulosin HCl (Flomax) 0.8 mg DAILY PO Last administered on 01/30/17 08:35; Start 01/30/17 at 09:00 Insulin Detemir (Levemir) 22 units QHS SQ ; Start 01/29/17 at 21:00 Insulin Aspart (Novolog) 8 units TIDBFRMEAL SQ Last administered on 01/30/17 08 :48; Start 01/29/17 at 16:30 Pantoprazole Sodium (Protonix) 40 mg DAILYAC PO Last administered on 01/30/17 08:37; Start 01/30/17 at 07:30 Morphine Sulfate (Ms Contin) 30 mg BID PO Last administered on 01/30/17 08:38; Start 01/29/17 at 21:00 Phytonadione (Mephyton) 5 mg 1X ONCE PO ; Start 01/29/17 at 15:30; Stop 01/29/17 at 15:31; Status DC Insulin Aspart (Novolog) 0-9 UNITS TIDWMEALS SQ ; Start 01/29/17 at 17:00 Dextrose 12.5 gm 12.5 gm PRN Q15MIN PRN IV SEE COMMENTS Last administered on 18:40; Start 01/29/17 at 14:45 Sodium Chloride (Iv Sodium Chloride 0.9% 500ml Bag) 500 ml @ 500 mls/hr 1X ONCE IV Last administered on 01/29/17 15:15; Start 01/29/17 at 15:15; Stop at 16:14; Status DC Heparin Sodium (Porcine) 78269 unit 10,000 unit STK-MED ONCE .ROUTE ; Start 01/29 at 15:30; Stop 01/29/17 at 15:31; Status DC Heparin Sodium/ Sodium Chloride 500 ml @ As Directed STK-MED ONCE .ROUTE ; Start 01/29/17 at 15:30; Stop 01/29/17 at 15:31; Status DC Lidocaine/ Epinephrine (Xylocaine 1%-Epi 1:100,000) 20 ml STK-MED ONCE .ROUTE ; Start 01/29/17 at 15:31; Stop 01/29/17 at 15:32; Status DC Lidocaine/ Epinephrine (Xylocaine 1%-Epi 1:100,000) 4 ml 1X ONCE IJ Last administered on 01/29/17 16:30; Start 01/29/17 at 16:00; Stop 01/29/17 at 16:01; Status DC Heparin Sodium/ Sodium Chloride 60 unit 1X ONCE IV Last administered on 16:30; Start 01/29/17 at 16:00; Stop 01/29/17 at 16:01; Status DC Heparin Sodium (Porcine) 2500 unit 2,500 unit 1X ONCE INT CAT Last administered on 01/29/17 16:30; Start 01/29/17 at 16:00; Stop 01/29/17 at 16:01; Status DC Sodium Chloride 1,000 ml @ 1,000 mls/hr Q1H PRN IV hypotension; Start 01/29/17 at 17:31; Stop 01/29/17 at 23:30; Status DC Albumin Human (Albuminar) 200 ml @ 200 mls/hr 1X PRN PRN IV Hypotension; Start 01/29/17 at 17:45; Stop 01/29/17 at 23:30; Status DC Sodium Chloride (Normal Saline Flush) 10 ml 1X PRN PRN IV AP 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; Start 01/29/17 at 17:45; Stop 01/29/17 at 23:30; Status DC Sodium Chloride (Normal Saline Flush) 10 ml 1X PRN PRN IV ICE CREAM MAN 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; Start 01/29/17 at 17:45; Stop 01/29/17 at 23:30; Status DC Info (PHARMACY MONITORING -- do not chart) 1 each PRN DAILY PRN MC SEE COMMENTS ; Start 01/29/17 at 17:45 Info (PHARMACY MONITORING -- do not chart) 1 each PRN DAILY PRN MC SEE COMMENTS ; Start 01/29/17 at 17:45; Status UNV Aspirin (Ecotrin) 81 mg DAILY PO Last administered on 01/30/17 08:38; Start 01/30/17 at 09:00 Warfarin Sodium (Coumadin) 4 mg DAILY16 PO Last administered on 01/29/17 22:26 ; Start 01/29/17 at 19:00 Warfarin Sodium (Coumadin Per Physician) 1 each PRN DAILY PRN MC SEE COMMENTS Last administered on 01/30/17 10:48; Start 01/29/17 at 18:30 Active Scripts Active Lasix (Furosemide) 80 Mg Tablet 1 Tab PO DAILY Reported Ywvrrj-Ljdjj-Zhnqtzf Eye Ointm ([place]/Polymyx B Sulf/Dexameth) 3.5 Gm Oint...g. 3.5 Gm OS QHS Durezol (Difluprednate) 5 Ml Drops 1 Drop OS QID Aspir 81 (Aspirin) 81 Mg Tablet.dr 1 Tab PO DAILY Senokot (Sennosides) 8.6 Mg Tablet 3 Tab PO BID Morphine Sulfate Er (Morphine Sulfate) 60 Mg Cap.er.pel 60 Mg PO Metoprolol Tartrate 50 Mg Tablet 0.5 Tab PO DAILY Latanoprost 2.5 Ml Drops 1 Drop EACHEYE QHS Gemfibrozil 600 Mg Tablet 1 Tab PO BID Dorzolamide-Timolol Eye Drops (Dorzolamide Hcl/Timolol Maleat) 10 Ml Drops 1 Drop RIGHTEYE BID Lyrica (Pregabalin) 75 Mg Capsule 1 Cap PO BID Alprazolam 0.5 Mg Tablet 1 Tab PO TID Warfarin Sodium 4 Mg Tablet 1 Tab PO DAILY Fish Oil 1,000 Mg Capsule ([place]-3 Fatty Acids/Fish Oil) 1 Each Capsule 4 Each PO DAILY Pancrelipase Dr 5,000 Unit Cap (Lipase/Protease/Amylase) 1 Each Capsule.dr 4 Each PO Prilosec Otc (Omeprazole Magnesium) 20 Mg Tablet.dr 20 Mg PO DAILY Lyrica (Pregabalin) 25 Mg Capsule 50 Mg PO TID 30 Days Gemfibrozil 600 Mg Tablet 600 Mg PO BID Spironolactone 25 Mg Tablet 25 Mg PO DAILY Calcitriol 0.25 Mcg Capsule 0.25 Mcg PO DAILY Lantus (Insulin Glargine,Hum.rec.anlog) 100 Unit/1 Ml Vial 22 Unit SQ HS Humalog (Insulin Lispro) 100 Unit/1 Ml Vial 8 Unit SQ TID Folic Acid 1 Mg Tablet 2 Mg PO TID Ferosul (Ferrous Sulfate) 325 Mg Tablet 325 Mg PO Ropinirole Hcl 1 Mg Tablet 1 Mg PO HS Tamsulosin Hcl 0.4 Mg Cap.er.24h 0.8 Mg PO DAILY Travatan Z (Travoprost) 5 Ml Drops 5 Ml OP Vitals/I & O Vital Sign - Last 24 Hours 01/29/17 01/29/17 01/29/17 01/29/17 12:40 12:50 12:55 13:05 Temp 97.6 97.6 Pulse 69 69 70 69 Resp 16 15 22 12 B/P 140/79 139/70 126/65 126/67 Pulse Ox 96 98 96 94 O2 Delivery Room Air Room Air 301/29/17 01/29/17 01/29/17 13:20 13:50 14:18 14:20 Pulse 69 69 69 Resp 14 14 17 15 B/P 131/73 133/74 107/69 Pulse Ox 96 95 95 98 O2 Delivery Room Air 01/29/17 01/29/17 01/29/17 01/29/17 14:50 15:20 15:45 20:00 Temp 97.4 97.4 Pulse 69 69 70 Resp 14 12 22 B/P 80/45 92/64 132/67 Pulse Ox 96 99 95 O2 Delivery Room Air Room Air Nasal Cannula O2 Flow Rate 2.0 01/29/17 01/29/17 01/29/17 01/29/17 20:30 21:30 22:27 23:43 Temp 94.9 97.4 97.8 94.9 97.4 97.8 Pulse 70 70 Resp 20 16 20 B/P 161/82 172/90 Pulse Ox 100 100 100 99 O2 Delivery Nasal Cannula Nasal Cannula Nasal Cannula Nasal Cannula O2 Flow Rate 2.0 2.0 2.0 2.0 01/30/17 01/30/17 01/30/17 01/30/17 00:04 01:04 02:04 02:30 Temp 97.4 98.1 98.2 97.4 98.1 98.2 Pulse 70 69 69 Resp 18 17 16 18 B/P 135/63 140/71 133/68 Pulse Ox 99 O2 Delivery Nasal Cannula O2 Flow Rate 2.0 01/30/17 01/30/17 01/30/17 01/30/17 02:30 03:59 07:00 08:00 Temp 98.2 98.2 98.0 98.2 98.2 98.0 Pulse 70 70 70 Resp 18 18 18 B/P 138/65 138/65 148/76 Pulse Ox 99 100 O2 Delivery Room Air Room Air Nasal Cannula O2 Flow Rate 2.0 01/30/17 01/30/17 01/30/17 01/30/17 08:35 08:38 11:00 11:04 Temp 98.1 98.1 Pulse 70 69 Resp 20 18 20 B/P 148/76 121/58 Pulse Ox 93 98 93 O2 Delivery Nasal Cannula Room Air Nasal Cannula O2 Flow Rate 2.0 2.0 Intake and Output 3/401/29/17 01/30/17 15:00 23:00 07:00 Intake Total 1000 ml 530 ml Output Total 1800 ml Balance 1000 ml -1270 ml ENRIQUE ALCALA MD Jan 30, 2017 11:28
[2017-01-30] MEDS ORDERED: IV NORMAL SALINE 1000ML BAG 1,000 ML IV PRN (11:38)
[2017-01-30] MEDS ORDERED: 0.9 % SODIUM CHLORIDE 10 ML DISP.SYRIN. IV PRN ×2 (11:45)
[2017-01-30] MEDS ORDERED: DIALYSIS PATIENT. MC PRN ×2 (11:45)
--- NOTE | 2017-01-30 14:07 | PDOC ---
PROGRESS NOTES Subjective Subjective SEEN IN FOLLOW UP OF NEW ESRD Objective Objective Vital Signs Date Time Temp Pulse Resp B/P Pulse Ox O2 Delivery O2 Flow Rate FiO2 01/30/17 11:04 20 93 Nasal Cannula 2.0 01/30/17 11:00 98.1 69 121/58 98.1 Intake and Output 01/30/17 07:00 Intake Total 1530 ml Output Total 1800 ml Balance -270 ml Intake Oral 1000 ml IV Total 500 ml Blood Product IV Normal Saline Flush 30 ml Output Urine Total 1800 ml # Bowel Movements 1 Physical Exam Abdomen: Normal bowel sounds, Soft, No tenderness, No hepatosplenomegaly, No masses Heart: Regular rate, Normal S1, Normal S2, No murmurs, Gallops Extremities: No clubbing, No cyanosis, No edema, Normal pulses, No tenderness/ swelling General: Alert, Oriented X3, Cooperative, No acute distress Lungs: Clear to auscultation, Normal air movement Psych/Mental Status: Mental status NL, Mood NL Diagnosis RENAL FAILURE: ESRD Assessment Assessment Problems Medical Problems: (1) Acute hyperkalemia Status: Acute (2) Acute renal failure Status: Acute Plan Plan of Care SEEN ON DIALYSIS AND TOLERATING WELL. INTERESTED IN CCPD. DR UPTON KNOWS THEM AND WILL FOLLOW UP TOMORROW Comment Review of Relevant I have reviewed the following items sarah (where applicable) has been applied. Labs Laboratory Tests Test 01/29/17 12:45 01/29/17 17:45 01/29/17 21:28 01/30/17 05:20 White Blood Count 4.2x10^3/uL (4.0-11.0) 3.5x10^3/uL (4.0-11.0) Red Blood Count 3.18x10^6/uL (4.30-5.70) 2.99x10^6/uL (4.30-5.70) Hemoglobin 10.3g/dL (13.0-17.5) 9.6g/dL (13.0-17.5) Hematocrit 31.4% (39.0-53.0) 28.6% (39.0-53.0) Mean Corpuscular Volume 99fL (79-100) 96fL (79-100) Mean Corpuscular Hemoglobin 32pg (25-35) 32pg (25-35) Mean Corpuscular Hemoglobin Concent 33g/dL (31-37) 34g/dL (31-37) Red Cell Distribution Width 14.9% (11.5-14.5) 14.4% (11.5-14.5) Platelet Count 66x10^3/uL (140-400) 56x10^3/uL (140-400) Neutrophils (%) (Auto) 64% (31-73) 69% (31-73) Lymphocytes (%) (Auto) 22% (24-48) 18% (24-48) Monocytes (%) (Auto) 13% (0-9) 12% (0-9) Eosinophils (%) (Auto) 1% (0-3) 1% (0-3) Basophils (%) (Auto) 1% (0-3) 0% (0-3) Neutrophils # (Auto) 2.7x10^3uL (1.8-7.7) 2.4x10^3uL (1.8-7.7) Lymphocytes # (Auto) 0.9x10^3/uL (1.0-4.8) 0.6x10^3/uL (1.0-4.8) Monocytes # (Auto) 0.5x10^3/uL (0.0-1.1) 0.4x10^3/uL (0.0-1.1) Eosinophils # (Auto) 0.0x10^3/uL (0.0-0.7) 0.0x10^3/uL (0.0-0.7) Basophils # (Auto) 0.0x10^3/uL (0.0-0.2) 0.0x10^3/uL (0.0-0.2) Prothrombin Time 24.0SEC (11.7-14.0) 21.0SEC (11.7-14.0) Prothromb Time International Ratio 2.3 (0.8-1.1) 1.9 (0.8-1.1) Sodium Level 129mmol/L (136-145) 138mmol/L (136-145) Potassium Level 6.7mmol/L (3.5-5.1) 4.3mmol/L (3.5-5.1) 4.9mmol/L (3.5-5.1) Chloride Level 96mmol/L (98-107) 100mmol/L (98-107) Carbon Dioxide Level 22mmol/L (21-32) 31mmol/L (21-32) Anion Gap 11 (6-14) 7 (6-14) Blood Urea Nitrogen 150mg/dL (8-26) 64mg/dL (8-26) Creatinine 5.2mg/dL (0.7-1.3) 2.6mg/dL (0.7-1.3) Estimated GFR (Cockcroft-Gault) 10.7 23.8 Glucose Level 161mg/dL (70-99) 140mg/dL (70-99) Calcium Level 7.6mg/dL (8.5-10.1) 7.6mg/dL (8.5-10.1) Troponin I Quantitative < 0.017ng/mL (0.000-0.055) FJ-Brz-S-Type Natriuretic Peptide 2959pg/mL (0-449) Glucose (Fingerstick) 91mg/dL (70-99) Test 01/30/17 07:43 01/30/17 11:40 Glucose (Fingerstick) 120mg/dL (70-99) 164mg/dL (70-99) Laboratory Tests Test 01/29/17 17:45 01/29/17 21:28 01/30/17 05:20 01/30/17 07:43 Potassium Level 4.3mmol/L (3.5-5.1) 4.9mmol/L (3.5-5.1) Glucose (Fingerstick) 91mg/dL (70-99) 120mg/dL (70-99) White Blood Count 3.5x10^3/uL (4.0-11.0) Red Blood Count 2.99x10^6/uL (4.30-5.70) Hemoglobin 9.6g/dL (13.0-17.5) Hematocrit 28.6% (39.0-53.0) Mean Corpuscular Volume 96fL (79-100) Mean Corpuscular Hemoglobin 32pg (25-35) Mean Corpuscular Hemoglobin Concent 34g/dL (31-37) Red Cell Distribution Width 14.4% (11.5-14.5) Platelet Count 56x10^3/uL (140-400) Neutrophils (%) (Auto) 69% (31-73) Lymphocytes (%) (Auto) 18% (24-48) Monocytes (%) (Auto) 12% (0-9) Eosinophils (%) (Auto) 1% (0-3) Basophils (%) (Auto) 0% (0-3) Neutrophils # (Auto) 2.4x10^3uL (1.8-7.7) Lymphocytes # (Auto) 0.6x10^3/uL (1.0-4.8) Monocytes # (Auto) 0.4x10^3/uL (0.0-1.1) Eosinophils # (Auto) 0.0x10^3/uL (0.0-0.7) Basophils # (Auto) 0.0x10^3/uL (0.0-0.2) Prothrombin Time 21.0SEC (11.7-14.0) Prothromb Time International Ratio 1.9 (0.8-1.1) Sodium Level 138mmol/L (136-145) Chloride Level 100mmol/L (98-107) Carbon Dioxide Level 31mmol/L (21-32) Anion Gap 7 (6-14) Blood Urea Nitrogen 64mg/dL (8-26) Creatinine 2.6mg/dL (0.7-1.3) Estimated GFR (Cockcroft-Gault) 23.8 Glucose Level 140mg/dL (70-99) Calcium Level 7.6mg/dL (8.5-10.1) Test 01/30/17 11:40 Glucose (Fingerstick) 164mg/dL (70-99) Medications Current Medications Calcium Gluconate 1,000 mg 1X ONCE IVP Last administered on 01/29/17 14:19; Start 01/29/17 at 13:45; Stop 01/29/17 at 13:46; Status DC Dextrose 25 gm 1X ONCE IV Last administered on 01/29/17 14:29; Start 01/29/17 at 13:45; Stop 01/29/17 at 13:46; Status DC Insulin Human Regular (Novolin R Vial) 10 unit 1X ONCE IV Last administered on 01/29/17 14:32; Start 01/29/17 at 13:45; Stop 01/29/17 at 13:46; Status DC Furosemide (Lasix) 40 mg 1X ONCE IVP Last administered on 01/29/17 14:33; Start 01/29/17 at 13:45; Stop 01/29/17 at 13:46; Status DC Oxycodone/ Acetaminophen (Percocet 5/325) 1 tab 1X ONCE PO Last administered on 01/29/17 14:18; Start 01/29/17 at 14:00; Stop 01/29/17 at 14:02; Status DC Ondansetron HCl (Zofran) 4 mg PRN Q8HRS PRN IV NAUSEA/VOMITING; Start 01/29/17 at 14:15; Stop 01/29/17 at 14:43; Status DC Fentanyl Citrate 50 mcg 50 mcg PRN Q2HR PRN IV PAIN Last administered on 11:04; Start 01/29/17 at 14:15; Stop 01/30/17 at 14:14 Sodium Chloride (Iv Sodium Chloride 0.9% 1000ml Bag) 1,000 ml @ 75 mls/hr [id number] IV Last administered on 01/29/17 22:15; Start 01/29/17 at 14:12; Stop at 14:11 Acetaminophen (Tylenol) 650 mg PRN Q4HRS PRN PO FEVER; Start 01/29/17 at 14:15; Stop 01/30/17 at 14:14 Ondansetron HCl (Zofran) 4 mg PRN Q6HRS PRN IV NAUSEA/VOMITING; Start 01/29/17 at 14:39 Alprazolam (Xanax) 0.5 mg PRN TID PRN PO nerves; Start 01/29/17 at 14:45 Calcitriol (Rocaltrol) 0.25 mcg DAILY PO Last administered on 01/30/17 08:36; Start 01/30/17 at 09:00 Dorzolamide/ Timolol (Cosopt) 1 drop BID OU Last administered on 01/30/17 08:38 ; Start 01/29/17 at 21:00 Ferrous Sulfate (Feosol) 325 mg DAILY PO Last administered on 01/30/17 08:37; Start 01/30/17 at 09:00 Folic Acid (Folic Acid) 2 mg TID PO Last administered on 01/30/17 08:38; Start 01/29/17 at 15:30 Gemfibrozil (Lopid) 600 mg BIDBFRMEAL PO Last administered on 01/30/17 08:34; Start 01/29/17 at 16:30 Latanoprost (Xalatan) 1 drop QHS OU Last administered on 01/29/17 22:41; Start 01/29/17 at 21:00 Amylase/Lipase/ Protease (Zenpep 5,000) 4 cap DAILY PO Last administered on 01/30 08:34; Start 01/30/17 at 09:00 Metoprolol Tartrate (Lopressor) 50 mg DAILY PO Last administered on 01/30/17 08 :35; Start 01/30/17 at 09:00 Fish Oil (Fish Oil) 1,000 mg DAILY PO Last administered on 01/30/17 08:35; Start 01/30/17 at 09:00 Pregabalin (Lyrica) 75 mg BID PO Last administered on 01/30/17 08:36; Start 01/29/17 at 21:00 Ropinirole HCl (Requip) 1 mg HS PO Last administered on 01/29/17 22:24; Start 01/29/17 at 21:00 Sennosides (Senna) 8.6 mg BID PO Last administered on 01/30/17 08:37; Start 01/29/17 at 21:00 Spironolactone (Aldactone) 25 mg DAILY PO Last administered on 01/30/17 08:37; Start 01/30/17 at 09:00 Tamsulosin HCl (Flomax) 0.8 mg DAILY PO Last administered on 01/30/17 08:35; Start 01/30/17 at 09:00 Insulin Detemir (Levemir) 22 units QHS SQ ; Start 01/29/17 at 21:00; Stop at 11:22; Status DC Insulin Aspart (Novolog) 8 units TIDBFRMEAL SQ Last administered on 01/30/17 08 :48; Start 01/29/17 at 16:30; Stop 01/30/17 at 11:22; Status DC Pantoprazole Sodium (Protonix) 40 mg DAILYAC PO Last administered on 01/30/17 08:37; Start 01/30/17 at 07:30 Morphine Sulfate (Ms Contin) 30 mg BID PO Last administered on 01/30/17 08:38; Start 01/29/17 at 21:00 Phytonadione (Mephyton) 5 mg 1X ONCE PO ; Start 01/29/17 at 15:30; Stop 01/29/17 at 15:31; Status DC Insulin Aspart (Novolog) 0-9 UNITS TIDWMEALS SQ ; Start 01/29/17 at 17:00 Dextrose 12.5 gm 12.5 gm PRN Q15MIN PRN IV SEE COMMENTS Last administered on 18:40; Start 01/29/17 at 14:45 Sodium Chloride (Iv Sodium Chloride 0.9% 500ml Bag) 500 ml @ 500 mls/hr 1X ONCE IV Last administered on 01/29/17 15:15; Start 01/29/17 at 15:15; Stop at 16:14; Status DC Heparin Sodium (Porcine) 62829 unit 10,000 unit STK-MED ONCE .ROUTE ; Start 01/29 at 15:30; Stop 01/29/17 at 15:31; Status DC Heparin Sodium/ Sodium Chloride 500 ml @ As Directed STK-MED ONCE .ROUTE ; Start 01/29/17 at 15:30; Stop 01/29/17 at 15:31; Status DC Lidocaine/ Epinephrine (Xylocaine 1%-Epi 1:100,000) 20 ml STK-MED ONCE .ROUTE ; Start 01/29/17 at 15:31; Stop 01/29/17 at 15:32; Status DC Lidocaine/ Epinephrine (Xylocaine 1%-Epi 1:100,000) 4 ml 1X ONCE IJ Last administered on 01/29/17 16:30; Start 01/29/17 at 16:00; Stop 01/29/17 at 16:01; Status DC Heparin Sodium/ Sodium Chloride 60 unit 1X ONCE IV Last administered on 16:30; Start 01/29/17 at 16:00; Stop 01/29/17 at 16:01; Status DC Heparin Sodium (Porcine) 2500 unit 2,500 unit 1X ONCE INT CAT Last administered on 01/29/17 16:30; Start 01/29/17 at 16:00; Stop 01/29/17 at 16:01; Status DC Sodium Chloride 1,000 ml @ 1,000 mls/hr Q1H PRN IV hypotension; Start 01/29/17 at 17:31; Stop 01/29/17 at 23:30; Status DC Albumin Human (Albuminar) 200 ml @ 200 mls/hr 1X PRN PRN IV Hypotension; Start 01/29/17 at 17:45; Stop 01/29/17 at 23:30; Status DC Sodium Chloride (Normal Saline Flush) 10 ml 1X PRN PRN IV AP 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; Start 01/29/17 at 17:45; Stop 01/29/17 at 23:30; Status DC Sodium Chloride (Normal Saline Flush) 10 ml 1X PRN PRN IV 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; Start 01/29/17 at 17:45; Stop 01/29/17 at 23:30; Status DC Info (PHARMACY MONITORING -- do not chart) 1 each PRN DAILY PRN MC SEE COMMENTS ; Start 01/29/17 at 17:45 Info (PHARMACY MONITORING -- do not chart) 1 each PRN DAILY PRN MC SEE COMMENTS ; Start 01/29/17 at 17:45; Status UNV Aspirin (Ecotrin) 81 mg DAILY PO Last administered on 01/30/17 08:38; Start 01/30/17 at 09:00 Warfarin Sodium (Coumadin) 4 mg DAILY16 PO Last administered on 01/29/17 22:26 ; Start 01/29/17 at 19:00 Warfarin Sodium (Coumadin Per Physician) 1 each PRN DAILY PRN MC SEE COMMENTS Last administered on 01/30/17 10:48; Start 01/29/17 at 18:30 Insulin Aspart (Novolog) 5 units TIDBFRMEAL SQ ; Start 01/30/17 at 11:30 Insulin Detemir 18 units 18 units QHS SQ ; Start 01/30/17 at 21:00 Sodium Chloride (Iv Sodium Chloride 0.9% 1000ml Bag) 1,000 ml @ 1,000 mls/hr Q1H PRN IV hypotension; Start 01/30/17 at 11:38; Stop 01/30/17 at 17:37 Sodium Chloride (Normal Saline Flush) 10 ml 1X PRN PRN IV AP 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; Start 01/30/17 at 11:45; Stop 01/31/17 at 11:44 Sodium Chloride (Normal Saline Flush) 10 ml 1X PRN PRN IV 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; Start 01/30/17 at 11:45; Stop 01/31/17 at 11:44 Info (PHARMACY MONITORING -- do not chart) 1 each PRN DAILY PRN MC SEE COMMENTS ; Start 01/30/17 at 11:45; Status UNV Info (PHARMACY MONITORING -- do not chart) 1 each PRN DAILY PRN MC SEE COMMENTS ; Start 01/30/17 at 11:45; Status UNV Active Scripts Active Lasix (Furosemide) 80 Mg Tablet 1 Tab PO DAILY Reported Hveuty-Jpylo-Aczwmtt Eye Ointm ([place]/Polymyx B Sulf/Dexameth) 3.5 Gm Oint...g. 3.5 Gm OS QHS Durezol (Difluprednate) 5 Ml Drops 1 Drop OS QID Aspir 81 (Aspirin) 81 Mg Tablet.dr 1 Tab PO DAILY Senokot (Sennosides) 8.6 Mg Tablet 3 Tab PO BID Morphine Sulfate Er (Morphine Sulfate) 60 Mg Cap.er.pel 60 Mg PO Metoprolol Tartrate 50 Mg Tablet 0.5 Tab PO DAILY Latanoprost 2.5 Ml Drops 1 Drop EACHEYE QHS Gemfibrozil 600 Mg Tablet 1 Tab PO BID Dorzolamide-Timolol Eye Drops (Dorzolamide Hcl/Timolol Maleat) 10 Ml Drops 1 Drop RIGHTEYE BID Lyrica (Pregabalin) 75 Mg Capsule 1 Cap PO BID Alprazolam 0.5 Mg Tablet 1 Tab PO TID Warfarin Sodium 4 Mg Tablet 1 Tab PO DAILY Fish Oil 1,000 Mg Capsule ([place]-3 Fatty Acids/Fish Oil) 1 Each Capsule 4 Each PO DAILY Pancrelipase Dr 5,000 Unit Cap (Lipase/Protease/Amylase) 1 Each Capsule. 4 Each PO Prilosec Otc (Omeprazole Magnesium) 20 Mg Tablet. 20 Mg PO DAILY Lyrica (Pregabalin) 25 Mg Capsule 50 Mg PO TID 30 Days Gemfibrozil 600 Mg Tablet 600 Mg PO BID Spironolactone 25 Mg Tablet 25 Mg PO DAILY Calcitriol 0.25 Mcg Capsule 0.25 Mcg PO DAILY Lantus (Insulin Glargine,Hum.rec.anlog) 100 Unit/1 Ml Vial 22 Unit SQ HS Humalog (Insulin Lispro) 100 Unit/1 Ml Vial 8 Unit SQ TID Folic Acid 1 Mg Tablet 2 Mg PO TID Ferosul (Ferrous Sulfate) 325 Mg Tablet 325 Mg PO Ropinirole Hcl 1 Mg Tablet 1 Mg PO HS Tamsulosin Hcl 0.4 Mg Cap.er.24h 0.8 Mg PO DAILY Travatan Z (Travoprost) 5 Ml Drops 5 Ml OP Vitals/I & O Vital Sign - Last 24 Hours 01/29/17 01/29/17 01/29/17 01/29/17 14:18 14:20 14:50 15:20 Pulse 69 69 69 Resp 17 15 14 12 B/P 107/69 80/45 92/64 Pulse Ox 95 98 96 99 O2 Delivery Room Air Room Air 01/29/17 01/29/17 01/29/17 01/29/17 15:45 20:00 20:30 21:30 Temp 97.4 94.9 97.4 97.4 94.9 97.4 Pulse 70 70 Resp 20 B/P 132/67 161/82 Pulse Ox 95 100 100 O2 Delivery Room Air Nasal Cannula Nasal Cannula Nasal Cannula O2 Flow Rate 2.0 2.0 2.0 01/29/17 01/29/17 01/30/17 01/30/17 22:27 23:43 00:04 01:04 Temp 97.8 97.4 98.1 97.8 97.4 98.1 Pulse 70 70 69 Resp 17 B/P 172/90 135/63 140/71 Pulse Ox 100 99 O2 Delivery Nasal Cannula Nasal Cannula O2 Flow Rate 2.0 2.0 01/30/17 01/30/17 01/30/17 01/30/17 02:04 02:30 02:30 03:59 Temp 98.2 98.2 98.2 98.2 98.2 98.2 Pulse 69 70 70 Resp 16 18 18 18 B/P 133/68 138/65 138/65 Pulse Ox 99 99 O2 Delivery Nasal Cannula Room Air O2 Flow Rate 2.0 01/30/17 01/30/17 01/30/17 01/30/17 07:00 08:00 08:35 08:38 Temp 98.0 98.0 Pulse 70 70 Resp 18 20 B/P 148/76 148/76 Pulse Ox 100 93 O2 Delivery Room Air Nasal Cannula Nasal Cannula O2 Flow Rate 2.0 2.0 01/30/17 01/30/17 11:00 11:04 Temp 98.1 98.1 Pulse 69 Resp 18 20 B/P 121/58 Pulse Ox 98 93 O2 Delivery Room Air Nasal Cannula O2 Flow Rate 2.0 Intake and Output 01/29/17 01/29/17 01/30/17 15:00 23:00 07:00 Intake Total 1000 ml 530 ml Output Total 1800 ml Balance 1000 ml -1270 ml MAK PINK MD Jan 30, 2017 14:07
[2017-01-30 14:10] LABS: HEP B SURFACE ABDY Non Reactive (.)
[2017-01-30] MEDS: WARFARIN 4 MG TABLET. PO SCH (16:22)
[2017-01-30] MEDS: ALPRAZOLAM 0.5 MG TABLET PO PRN (16:22)
[2017-01-30] MEDS: rOPINIRole 1 MG TABLET. PO SCH (20:53)
[2017-01-30] MEDS: LATANOPROST 0.005% OPHTH SOLUTION 2.5ML BOTTLE. OU SCH (20:59)
[2017-01-30] MEDS: INSULIN DETEMIR 300 UNITS/3 ML INSULN.PEN. SQ SCH (20:59)
[2017-01-30] MEDS ORDERED: INSULIN ASPART 300 UNITS/3 ML INSULN.PEN SQ ONE (21:30)
[2017-01-30] MEDS: OXYCODONE/APAP 5/325 TABLET. PO PRN (21:50)
[2017-01-31 03:00] VITALS: BP 116/53
[2017-01-31] MEDS: OXYCODONE/APAP 10/325 TABLET. PO PRN ×2 (04:38→18:00)
[2017-01-31 05:14] LABS: BASO % 1 % (0-3); EOS % 1 % (0-3); HEMATOCRIT 26.6 % (39.0-53.0); HEMOGLOBIN 8.7 g/dL (13.0-17.5); LYMPH # 0.9 x10^3/uL (1.0-4.8); LYMPH % 22 % (24-48); MEAN CORPUSCULAR HEMOGLOBIN 32 pg (25-35); MEAN CORPUSCULAR HGB CONC 33 g/dL (31-37); MEAN CORPUSCULAR VOLUME 99 fL (79-100); MONO % 15 % (0-9); NEUT % 62 % (31-73); PLATELET COUNT 59 x10^3/uL (140-400); RED CELL DISTRIBUTION WIDTH 14.4 % (11.5-14.5)
[2017-01-31 05:25] LABS: INR 2.5 (0.8-1.1); PROTHROMBIN TIME PATIENT 25.3 SEC (11.7-14.0)
[2017-01-31 05:37] LABS: CALCIUM 7.8 mg/dL (8.5-10.1); CREATININE 1.8 mg/dL (0.7-1.3); GFR 36.4
[2017-01-31 05:41] LABS: POTASSIUM 5.2 mmol/L (3.5-5.1)
[2017-01-31 07:49] VITALS: BP 123/62
[2017-01-31] MEDS: INSULIN ASPART 300 UNITS/3 ML INSULN.PEN SQ SCH ×6 (08:00→17:29)
[2017-01-31] MEDS: LIPASE/PROTEAS/AMYLASE 5/17/27 CAPSULE.DR. PO SCH (08:10)
[2017-01-31] MEDS: FERROUS SULFATE 325 MG TABLET PO SCH (08:11)
[2017-01-31] MEDS: FOLIC ACID 1 MG TABLET PO SCH ×3 (08:11→20:20)
[2017-01-31] MEDS: CALCITRIOL 0.25 MCG CAPSULE PO SCH (08:11)
[2017-01-31] MEDS: GEMFIBROZIL 600 MG TABLET. PO SCH ×2 (08:11→17:22)
[2017-01-31] MEDS: TAMSULOSIN 0.4 MG CAP.ER.24H. PO SCH (08:11)
[2017-01-31] MEDS: METOPROLOL TART IMMED RELEASE 50 MG TABLET PO SCH (08:11)
[2017-01-31] MEDS: PANTOPRAZOLE 40 MG TABLET. PO SCH (08:12)
[2017-01-31] MEDS: SENNOSIDES 8.6 MG TABLET PO SCH ×2 (08:12→20:19)
[2017-01-31] MEDS: MORPHINE ER 30 MG TABLET.ER PO SCH ×2 (08:12→20:20)
[2017-01-31] MEDS: PREGABALIN 75 MG CAPSULE PO SCH ×2 (08:12→20:20)
[2017-01-31] MEDS: SPIRONOLACTONE 25 MG TABLET PO SCH (08:12)
[2017-01-31] MEDS: OMEGA-3 FATTY ACIDS/FISH OIL 1,000 MG CAPSULE. PO SCH (08:12)
[2017-01-31] MEDS: ASPIRIN ENTERIC COATED 81 MG TABLET.DR. PO SCH (08:12)
[2017-01-31] MEDS: DORZOLAMIDE/TIMOLOL 2%/0.5% OPHTH SOLUTION 10ML BOTTLE. OU SCH ×2 (08:13→20:22)
[2017-01-31 10:38] VITALS: BP 105/57
[2017-01-31] MEDS ORDERED: LIDOCAINE 1% / SOD BICARB 8.4% 20 ML VIAL. IJ ONE (12:15)
[2017-01-31] MEDS ORDERED: HEPARIN for IV BOLUS 10,000 UNIT/10 ML VIAL. ONE (12:18)
[2017-01-31] MEDS ORDERED: FENTANYL PF 100 MCG/2 ML VIAL. ONE (12:29)
[2017-01-31] MEDS ORDERED: MIDAZOLAM HCL 2 MG/2 ML VIAL. ONE (12:29)
[2017-01-31] MEDS ORDERED: MIDAZOLAM HCL 2 MG/2 ML VIAL. IV ONE (13:00)
--- NOTE | 2017-01-31 13:07 | PDOC ---
Exam Slunk Skin Curer Slunk Skin Curer Darwin Cisco Consultant Cisco Consultant Hermilo Rhoades Pre-Procedure Diagnosis Pre-Procedure Diagnosis 81 YO male with renal failure and dementia. Recently placed temp HDC pulled put. On Coumadin anticoagulation. Needs HD. Temp HDC replacement requested. Post-Procedure Diagnosis Post-Procedure Diagnosis Same Procedure Performed Procedure Performed Sono/fluoro guided temp HDC replacement Type of Anesthesia Type of Anesthesia Local + IV Versed anxiolysis Estimated Blood Loss EBL: Minimal Drain/Tubes Drains/Tubes Right jugular 14F 20cm Schon temp HDC Condition of Patient Condition of Patient Stable. No apparent complication. Disposition Disposition From IR return to [facility]. F/u with Renal. OK to use temp HDC. Full report to follow. JOVANY MAI MD Jan 31, 2017 13:07
[2017-01-31] MEDS: DUREZOL OS SCH ×3 (13:38→20:25)
--- NOTE | 2017-01-31 14:47 | PDOC ---
PROGRESS NOTES Chief Complaint Chief Complaint 1. Oliguric, hyperkalemic renal failure POA, needing STAT initiation of HD ( first session 01/29/17), 2 TIM on CKD, maybe even ESRD now needing stat HD initiation 3. MEtabolic encephalopathy 4. chronic LE edema stable 5. CHF 4. Multivessel CAD s/p recent CABG 6. SSS with indwelling PPM 7. PAFIB; maintaining SR 8. Therapeutic INR on coumadin 9. Acute on chronic back pain, indwelling back stimulator - needs adjustment 10. DM2, on insulin plan: 1. fu with renal, pt pulled out his rt IJ temp HD cath, will get a new one today 2. labs daily 3. cont home meds, on coumadin daily, INR daily, will hold if need to do a chest perm HD cath, fu with IR, RENAL 4. pain control, fu with dr. Kristen RUSSELL, ON insulin History of Present Illness History of Present Illness Numbers better after first session HD since Sat, new to pt Pt cant recall the details very involved in his care Only got 1 FFP yesterday (prior to HD cath insertion) (INR was 2,3 on warfarin for cardiac related issues) But HD cath inserted and now running second session HD I see that Hepatitis panel has been ordered- looking at OP HD set up now aware Relays back pain - lidoderm patch HELPS BUT IS WEARY TO START MDs in [facility] SAID IT GETS RENALLY EXCRETED. I did review literature on that and there was no dosage adjustments needed for renal impairment BUt still uncomfortable to restart Lidoderm patch Vitals Vitals Vital Signs Date Time Temp Pulse Resp B/P Pulse Ox O2 Delivery O2 Flow Rate FiO2 01/31/17 10:38 97.9 82 20 105/57 90 Room Air 97.9 01/31/17 05:50 2.0 Physical Exam General: Alert, Oriented X3, Cooperative, No acute distress Heart: Regular rate, Normal S1, Normal S2, No murmurs, Gallops Lungs: Clear Abdomen: Normal bowel sounds, Soft, No tenderness, No hepatosplenomegaly, No masses Extremities: No clubbing, No cyanosis, No edema, Normal pulses, No tenderness/ swelling Skin: No rashes, No breakdown, No significant lesion Labs LABS Laboratory Tests Test 01/30/17 16:24 01/30/17 20:34 01/30/17 20:49 01/31/17 04:40 Glucose (Fingerstick) 144mg/dL (70-99) 343mg/dL (70-99) Hemoglobin 9.0g/dL (13.0-17.5) 8.7g/dL (13.0-17.5) White Blood Count 4.0x10^3/uL (4.0-11.0) Red Blood Count 2.70x10^6/uL (4.30-5.70) Hematocrit 26.6% (39.0-53.0) Mean Corpuscular Volume 99fL (79-100) Mean Corpuscular Hemoglobin 32pg (25-35) Mean Corpuscular Hemoglobin Concent 33g/dL (31-37) Red Cell Distribution Width 14.4% (11.5-14.5) Platelet Count 59x10^3/uL (140-400) Neutrophils (%) (Auto) 62% (31-73) Lymphocytes (%) (Auto) 22% (24-48) Monocytes (%) (Auto) 15% (0-9) Eosinophils (%) (Auto) 1% (0-3) Basophils (%) (Auto) 1% (0-3) Neutrophils # (Auto) 2.5x10^3uL (1.8-7.7) Lymphocytes # (Auto) 0.9x10^3/uL (1.0-4.8) Monocytes # (Auto) 0.6x10^3/uL (0.0-1.1) Eosinophils # (Auto) 0.0x10^3/uL (0.0-0.7) Basophils # (Auto) 0.0x10^3/uL (0.0-0.2) Prothrombin Time 25.3SEC (11.7-14.0) Prothromb Time International Ratio 2.5 (0.8-1.1) Sodium Level 138mmol/L (136-145) Potassium Level 5.2mmol/L (3.5-5.1) Chloride Level 103mmol/L (98-107) Carbon Dioxide Level 30mmol/L (21-32) Anion Gap 5 (6-14) Blood Urea Nitrogen 32mg/dL (8-26) Creatinine 1.8mg/dL (0.7-1.3) Estimated GFR (Cockcroft-Gault) 36.4 Glucose Level 102mg/dL (70-99) Calcium Level 7.8mg/dL (8.5-10.1) Test 01/31/17 07:59 01/31/17 11:19 Glucose (Fingerstick) 88mg/dL (70-99) 134mg/dL (70-99) Review of Systems Review of Systems no fever, chills, sob or chest pain Assessment and Plan Assessmemt and Plan Problems Medical Problems: (1) Acute hyperkalemia Status: Acute (2) Acute renal failure Status: Acute Problems: Comment Review of Relevant I have reviewed the following items sarah (where applicable) has been applied. Labs Laboratory Tests Test 01/29/17 17:45 01/29/17 18:33 01/29/17 18:55 01/29/17 20:18 Potassium Level 4.3mmol/L (3.5-5.1) Hepatitis B Surface Antigen Negative (Negative) Hepatitis B Surface Antibody Non reactive (.) Hepatitis B Core IgM Antibody Negative (Negative) Glucose (Fingerstick) 51mg/dL (70-99) 98mg/dL (70-99) 74mg/dL (70-99) Test 01/29/17 21:28 01/30/17 05:20 01/30/17 07:43 01/30/17 11:40 Glucose (Fingerstick) 91mg/dL (70-99) 120mg/dL (70-99) 164mg/dL (70-99) White Blood Count 3.5x10^3/uL (4.0-11.0) Red Blood Count 2.99x10^6/uL (4.30-5.70) Hemoglobin 9.6g/dL (13.0-17.5) Hematocrit 28.6% (39.0-53.0) Mean Corpuscular Volume 96fL (79-100) Mean Corpuscular Hemoglobin 32pg (25-35) Mean Corpuscular Hemoglobin Concent 34g/dL (31-37) Red Cell Distribution Width 14.4% (11.5-14.5) Platelet Count 56x10^3/uL (140-400) Neutrophils (%) (Auto) 69% (31-73) Lymphocytes (%) (Auto) 18% (24-48) Monocytes (%) (Auto) 12% (0-9) Eosinophils (%) (Auto) 1% (0-3) Basophils (%) (Auto) 0% (0-3) Neutrophils # (Auto) 2.4x10^3uL (1.8-7.7) Lymphocytes # (Auto) 0.6x10^3/uL (1.0-4.8) Monocytes # (Auto) 0.4x10^3/uL (0.0-1.1) Eosinophils # (Auto) 0.0x10^3/uL (0.0-0.7) Basophils # (Auto) 0.0x10^3/uL (0.0-0.2) Prothrombin Time 21.0SEC (11.7-14.0) Prothromb Time International Ratio 1.9 (0.8-1.1) Sodium Level 138mmol/L (136-145) Potassium Level 4.9mmol/L (3.5-5.1) Chloride Level 100mmol/L (98-107) Carbon Dioxide Level 31mmol/L (21-32) Anion Gap 7 (6-14) Blood Urea Nitrogen 64mg/dL (8-26) Creatinine 2.6mg/dL (0.7-1.3) Estimated GFR (Cockcroft-Gault) 23.8 Glucose Level 140mg/dL (70-99) Calcium Level 7.6mg/dL (8.5-10.1) Test 01/30/17 16:24 01/30/17 20:34 01/30/17 20:49 01/31/17 04:40 Glucose (Fingerstick) 144mg/dL (70-99) 343mg/dL (70-99) Hemoglobin 9.0g/dL (13.0-17.5) 8.7g/dL (13.0-17.5) White Blood Count 4.0x10^3/uL (4.0-11.0) Red Blood Count 2.70x10^6/uL (4.30-5.70) Hematocrit 26.6% (39.0-53.0) Mean Corpuscular Volume 99fL (79-100) Mean Corpuscular Hemoglobin 32pg (25-35) Mean Corpuscular Hemoglobin Concent 33g/dL (31-37) Red Cell Distribution Width 14.4% (11.5-14.5) Platelet Count 59x10^3/uL (140-400) Neutrophils (%) (Auto) 62% (31-73) Lymphocytes (%) (Auto) 22% (24-48) Monocytes (%) (Auto) 15% (0-9) Eosinophils (%) (Auto) 1% (0-3) Basophils (%) (Auto) 1% (0-3) Neutrophils # (Auto) 2.5x10^3uL (1.8-7.7) Lymphocytes # (Auto) 0.9x10^3/uL (1.0-4.8) Monocytes # (Auto) 0.6x10^3/uL (0.0-1.1) Eosinophils # (Auto) 0.0x10^3/uL (0.0-0.7) Basophils # (Auto) 0.0x10^3/uL (0.0-0.2) Prothrombin Time 25.3SEC (11.7-14.0) Prothromb Time International Ratio 2.5 (0.8-1.1) Sodium Level 138mmol/L (136-145) Potassium Level 5.2mmol/L (3.5-5.1) Chloride Level 103mmol/L (98-107) Carbon Dioxide Level 30mmol/L (21-32) Anion Gap 5 (6-14) Blood Urea Nitrogen 32mg/dL (8-26) Creatinine 1.8mg/dL (0.7-1.3) Estimated GFR (Cockcroft-Gault) 36.4 Glucose Level 102mg/dL (70-99) Calcium Level 7.8mg/dL (8.5-10.1) Test 01/31/17 07:59 01/31/17 11:19 Glucose (Fingerstick) 88mg/dL (70-99) 134mg/dL (70-99) Laboratory Tests Test 01/30/17 16:24 01/30/17 20:34 01/30/17 20:49 01/31/17 04:40 Glucose (Fingerstick) 144mg/dL (70-99) 343mg/dL (70-99) Hemoglobin 9.0g/dL (13.0-17.5) 8.7g/dL (13.0-17.5) White Blood Count 4.0x10^3/uL (4.0-11.0) Red Blood Count 2.70x10^6/uL (4.30-5.70) Hematocrit 26.6% (39.0-53.0) Mean Corpuscular Volume 99fL (79-100) Mean Corpuscular Hemoglobin 32pg (25-35) Mean Corpuscular Hemoglobin Concent 33g/dL (31-37) Red Cell Distribution Width 14.4% (11.5-14.5) Platelet Count 59x10^3/uL (140-400) Neutrophils (%) (Auto) 62% (31-73) Lymphocytes (%) (Auto) 22% (24-48) Monocytes (%) (Auto) 15% (0-9) Eosinophils (%) (Auto) 1% (0-3) Basophils (%) (Auto) 1% (0-3) Neutrophils # (Auto) 2.5x10^3uL (1.8-7.7) Lymphocytes # (Auto) 0.9x10^3/uL (1.0-4.8) Monocytes # (Auto) 0.6x10^3/uL (0.0-1.1) Eosinophils # (Auto) 0.0x10^3/uL (0.0-0.7) Basophils # (Auto) 0.0x10^3/uL (0.0-0.2) Prothrombin Time 25.3SEC (11.7-14.0) Prothromb Time International Ratio 2.5 (0.8-1.1) Sodium Level 138mmol/L (136-145) Potassium Level 5.2mmol/L (3.5-5.1) Chloride Level 103mmol/L (98-107) Carbon Dioxide Level 30mmol/L (21-32) Anion Gap 5 (6-14) Blood Urea Nitrogen 32mg/dL (8-26) Creatinine 1.8mg/dL (0.7-1.3) Estimated GFR (Cockcroft-Gault) 36.4 Glucose Level 102mg/dL (70-99) Calcium Level 7.8mg/dL (8.5-10.1) Test 01/31/17 07:59 01/31/17 11:19 Glucose (Fingerstick) 88mg/dL (70-99) 134mg/dL (70-99) Medications Current Medications Calcium Gluconate 1,000 mg 1X ONCE IVP Last administered on 01/29/17 14:19; Start 01/29/17 at 13:45; Stop 01/29/17 at 13:46; Status DC Dextrose 25 gm 1X ONCE IV Last administered on 01/29/17 14:29; Start 01/29/17 at 13:45; Stop 01/29/17 at 13:46; Status DC Insulin Human Regular (Novolin R Vial) 10 unit 1X ONCE IV Last administered on 01/29/17 14:32; Start 01/29/17 at 13:45; Stop 01/29/17 at 13:46; Status DC Furosemide (Lasix) 40 mg 1X ONCE IVP Last administered on 01/29/17 14:33; Start 01/29/17 at 13:45; Stop 01/29/17 at 13:46; Status DC Oxycodone/ Acetaminophen (Percocet 5/325) 1 tab 1X ONCE PO Last administered on 01/29/17 14:18; Start 01/29/17 at 14:00; Stop 01/29/17 at 14:02; Status DC Ondansetron HCl (Zofran) 4 mg PRN Q8HRS PRN IV NAUSEA/VOMITING; Start 01/29/17 at 14:15; Stop 01/29/17 at 14:43; Status DC Fentanyl Citrate 50 mcg 50 mcg PRN Q2HR PRN IV PAIN Last administered on 11:04; Start 01/29/17 at 14:15; Stop 01/30/17 at 14:14; Status DC Sodium Chloride (Iv Sodium Chloride 0.9% 1000ml Bag) 1,000 ml @ 75 mls/hr [id number] IV Last administered on 01/29/17 22:15; Start 01/29/17 at 14:12; Stop at 14:11; Status DC Acetaminophen (Tylenol) 650 mg PRN Q4HRS PRN PO FEVER; Start 01/29/17 at 14:15; Stop 01/30/17 at 14:14; Status DC Ondansetron HCl (Zofran) 4 mg PRN Q6HRS PRN IV NAUSEA/VOMITING; Start 01/29/17 at 14:39 Alprazolam (Xanax) 0.5 mg PRN TID PRN PO nerves Last administered on 01/30/17 16:22; Start 01/29/17 at 14:45 Calcitriol (Rocaltrol) 0.25 mcg DAILY PO Last administered on 01/31/17 08:11; Start 01/30/17 at 09:00 Dorzolamide/ Timolol (Cosopt) 1 drop BID OU Last administered on 01/31/17 08:13 ; Start 01/29/17 at 21:00 Ferrous Sulfate (Feosol) 325 mg DAILY PO Last administered on 01/31/17 08:11; Start 01/30/17 at 09:00 Folic Acid (Folic Acid) 2 mg TID PO Last administered on 01/31/17 08:11; Start 01/29/17 at 15:30 Gemfibrozil (Lopid) 600 mg BIDBFRMEAL PO Last administered on 01/31/17 08:11; Start 01/29/17 at 16:30 Latanoprost (Xalatan) 1 drop QHS OU Last administered on 01/30/17 20:59; Start 01/29/17 at 21:00 Amylase/Lipase/ Protease (Zenpep 5,000) 4 cap DAILY PO Last administered on 01/31 08:10; Start 01/30/17 at 09:00 Metoprolol Tartrate (Lopressor) 50 mg DAILY PO Last administered on 01/31/17 08 :11; Start 01/30/17 at 09:00 Fish Oil (Fish Oil) 1,000 mg DAILY PO Last administered on 01/31/17 08:12; Start 01/30/17 at 09:00 Pregabalin (Lyrica) 75 mg BID PO Last administered on 01/31/17 08:12; Start 01/29/17 at 21:00 Ropinirole HCl (Requip) 1 mg HS PO Last administered on 01/30/17 20:53; Start 01/29/17 at 21:00 Sennosides (Senna) 8.6 mg BID PO Last administered on 01/31/17 08:12; Start 01/29/17 at 21:00 Spironolactone (Aldactone) 25 mg DAILY PO Last administered on 01/31/17 08:12; Start 01/30/17 at 09:00 Tamsulosin HCl (Flomax) 0.8 mg DAILY PO Last administered on 01/31/17 08:11; Start 01/30/17 at 09:00 Insulin Detemir (Levemir) 22 units QHS SQ ; Start 01/29/17 at 21:00; Stop at 11:22; Status DC Insulin Aspart (Novolog) 8 units TIDBFRMEAL SQ Last administered on 01/30/17 08 :48; Start 01/29/17 at 16:30; Stop 01/30/17 at 11:22; Status DC Pantoprazole Sodium (Protonix) 40 mg DAILYAC PO Last administered on 01/31/17 08:12; Start 01/30/17 at 07:30 Morphine Sulfate (Ms Contin) 30 mg BID PO Last administered on 01/31/17 08:12; Start 01/29/17 at 21:00 Phytonadione (Mephyton) 5 mg 1X ONCE PO ; Start 01/29/17 at 15:30; Stop 01/29/17 at 15:31; Status DC Insulin Aspart (Novolog) 0-9 UNITS TIDWMEALS SQ ; Start 01/29/17 at 17:00 Dextrose 12.5 gm 12.5 gm PRN Q15MIN PRN IV SEE COMMENTS Last administered on 18:40; Start 01/29/17 at 14:45 Sodium Chloride (Iv Sodium Chloride 0.9% 500ml Bag) 500 ml @ 500 mls/hr 1X ONCE IV Last administered on 01/29/17 15:15; Start 01/29/17 at 15:15; Stop at 16:14; Status DC Heparin Sodium (Porcine) 39345 unit 10,000 unit STK-MED ONCE .ROUTE ; Start 01/29 at 15:30; Stop 01/29/17 at 15:31; Status DC Heparin Sodium/ Sodium Chloride 500 ml @ As Directed STK-MED ONCE .ROUTE ; Start 01/29/17 at 15:30; Stop 01/29/17 at 15:31; Status DC Lidocaine/ Epinephrine (Xylocaine 1%-Epi 1:100,000) 20 ml STK-MED ONCE .ROUTE ; Start 01/29/17 at 15:31; Stop 01/29/17 at 15:32; Status DC Lidocaine/ Epinephrine (Xylocaine 1%-Epi 1:100,000) 4 ml 1X ONCE IJ Last administered on 01/29/17 16:30; Start 01/29/17 at 16:00; Stop 01/29/17 at 16:01; Status DC Heparin Sodium/ Sodium Chloride 60 unit 1X ONCE IV Last administered on 16:30; Start 01/29/17 at 16:00; Stop 01/29/17 at 16:01; Status DC Heparin Sodium (Porcine) 2500 unit 2,500 unit 1X ONCE INT CAT Last administered on 01/29/17 16:30; Start 01/29/17 at 16:00; Stop 01/29/17 at 16:01; Status DC Sodium Chloride 1,000 ml @ 1,000 mls/hr Q1H PRN IV hypotension; Start 01/29/17 at 17:31; Stop 01/29/17 at 23:30; Status DC Albumin Human (Albuminar) 200 ml @ 200 mls/hr 1X PRN PRN IV Hypotension; Start 01/29/17 at 17:45; Stop 01/29/17 at 23:30; Status DC Sodium Chloride (Normal Saline Flush) 10 ml 1X PRN PRN IV AP 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; Start 01/29/17 at 17:45; Stop 01/29/17 at 23:30; Status DC Sodium Chloride (Normal Saline Flush) 10 ml 1X PRN PRN IV [employer] 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; Start 01/29/17 at 17:45; Stop 01/29/17 at 23:30; Status DC Info (PHARMACY MONITORING -- do not chart) 1 each PRN DAILY PRN MC SEE COMMENTS ; Start 01/29/17 at 17:45 Info (PHARMACY MONITORING -- do not chart) 1 each PRN DAILY PRN MC SEE COMMENTS ; Start 01/29/17 at 17:45; Status UNV Aspirin (Ecotrin) 81 mg DAILY PO Last administered on 01/31/17 08:12; Start 01/30/17 at 09:00 Warfarin Sodium (Coumadin) 4 mg DAILY16 PO Last administered on 01/30/17 16:22 ; Start 01/29/17 at 19:00 Warfarin Sodium (Coumadin Per Physician) 1 each PRN DAILY PRN MC SEE COMMENTS Last administered on 01/30/17 10:48; Start 01/29/17 at 18:30 Insulin Aspart (Novolog) 5 units TIDBFRMEAL SQ Last administered on 01/31/17 08 :20; Start 01/30/17 at 11:30 Insulin Detemir 18 units 18 units QHS SQ Last administered on 01/30/17 20:59; Start 01/30/17 at 21:00 Sodium Chloride (Iv Sodium Chloride 0.9% 1000ml Bag) 1,000 ml @ 1,000 mls/hr Q1H PRN IV hypotension; Start 01/30/17 at 11:38; Stop 01/30/17 at 17:37; Status DC Sodium Chloride (Normal Saline Flush) 10 ml 1X PRN PRN IV AP 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; Start 01/30/17 at 11:45; Stop 01/31/17 at 11:44; Status DC Sodium Chloride (Normal Saline Flush) 10 ml 1X PRN PRN IV [employer] 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; Start 01/30/17 at 11:45; Stop 01/31/17 at 11:44; Status DC Info (PHARMACY MONITORING -- do not chart) 1 each PRN DAILY PRN MC SEE COMMENTS ; Start 01/30/17 at 11:45; Status UNV Info (PHARMACY MONITORING -- do not chart) 1 each PRN DAILY PRN MC SEE COMMENTS ; Start 01/30/17 at 11:45; Status UNV Oxycodone/ Acetaminophen (Percocet 5/325) 1 tab PRN Q4HRS PRN PO PAIN Last administered on 01/30/17 21:50; Start 01/30/17 at 18:45 Oxycodone/ Acetaminophen (Percocet 10/325) 1 tab PRN Q4HRS PRN PO PAIN Last administered on 01/31/17 04:38; Start 01/30/17 at 18:45 Insulin Aspart (Novolog) 9 units 1X ONCE SQ Last administered on 01/30/17 21: 57; Start 01/30/17 at 21:30; Stop 01/30/17 at 21:31; Status DC Lidocaine/Sodium Bicarbonate (Buffered Lidocaine 1%) 3 ml 1X ONCE IJ Last administered on 01/31/17 12:15; Start 01/31/17 at 12:15; Stop 01/31/17 at 12:16; Status DC Heparin Sodium/ Sodium Chloride 60 unit 1X ONCE IV Last administered on 13:02; Start 01/31/17 at 12:15; Stop 01/31/17 at 12:16; Status DC Heparin Sodium (Porcine) 2,500 unit 1X ONCE INT CAT Last administered on 13:02; Start 01/31/17 at 12:15; Stop 01/31/17 at 12:16; Status DC Heparin Sodium (Porcine) 10,000 unit STK-MED ONCE .ROUTE ; Start 01/31/17 at 12: 18; Stop 01/31/17 at 12:19; Status DC Fentanyl Citrate (Fentanyl 2ml Vial) 100 mcg STK-MED ONCE .ROUTE ; Start at 12:29; Stop 01/31/17 at 12:30; Status DC Midazolam HCl (Versed) 2 mg STK-MED ONCE .ROUTE ; Start 01/31/17 at 12:29; Stop 01/31/17 at 12:30; Status DC Midazolam HCl (Versed) 2 mg 1X ONCE IV Last administered on 01/31/17 13:01; Start 01/31/17 at 13:00; Stop 01/31/17 at 13:01; Status DC Non-Formulary Medication 1 ea QID OS Last administered on 01/31/17 13:38; Start 01/31/17 at 14:00 Non-Formulary Medication 1 ea QHS OS ; Start 01/31/17 at 21:00 Active Scripts Active Lasix (Furosemide) 80 Mg Tablet 1 Tab PO DAILY Reported Uecwxu-Uvomo-Kdjbrys Eye Ointm (Chapito/Polymyx B Sulf/Dexameth) 3.5 Gm Oint...g. 3.5 Gm OS QHS Durezol (Difluprednate) 5 Ml Drops 1 Drop OS QID Aspir 81 (Aspirin) 81 Mg Tablet.dr 1 Tab PO DAILY Senokot (Sennosides) 8.6 Mg Tablet 3 Tab PO BID Morphine Sulfate Er (Morphine Sulfate) 60 Mg Cap.er.pel 60 Mg PO Metoprolol Tartrate 50 Mg Tablet 0.5 Tab PO DAILY Latanoprost 2.5 Ml Drops 1 Drop EACHEYE QHS Gemfibrozil 600 Mg Tablet 1 Tab PO BID Dorzolamide-Timolol Eye Drops (Dorzolamide Hcl/Timolol Maleat) 10 Ml Drops 1 Drop RIGHTEYE BID Lyrica (Pregabalin) 75 Mg Capsule 1 Cap PO BID Alprazolam 0.5 Mg Tablet 1 Tab PO TID Warfarin Sodium 4 Mg Tablet 1 Tab PO DAILY Fish Oil 1,000 Mg Capsule ([place]-3 Fatty Acids/Fish Oil) 1 Each Capsule 4 Each PO DAILY Pancrelipase Dr 5,000 Unit Cap (Lipase/Protease/Amylase) 1 Each Capsule.dr 4 Each PO Prilosec Otc (Omeprazole Magnesium) 20 Mg Tablet.dr 20 Mg PO DAILY Lyrica (Pregabalin) 25 Mg Capsule 50 Mg PO TID 30 Days Gemfibrozil 600 Mg Tablet 600 Mg PO BID Spironolactone 25 Mg Tablet 25 Mg PO DAILY Calcitriol 0.25 Mcg Capsule 0.25 Mcg PO DAILY Lantus (Insulin Glargine,Hum.rec.anlog) 100 Unit/1 Ml Vial 22 Unit SQ HS Humalog (Insulin Lispro) 100 Unit/1 Ml Vial 8 Unit SQ TID Folic Acid 1 Mg Tablet 2 Mg PO TID Ferosul (Ferrous Sulfate) 325 Mg Tablet 325 Mg PO Ropinirole Hcl 1 Mg Tablet 1 Mg PO HS Tamsulosin Hcl 0.4 Mg Cap.er.24h 0.8 Mg PO DAILY Travatan Z (Travoprost) 5 Ml Drops 5 Ml OP Vitals/I & O Vital Sign - Last 24 Hours 01/30/17 01/30/17 01/30/17 01/30/17 15:00 19:00 20:00 20:53 Temp 97.6 97.8 97.6 97.8 Pulse 71 70 Resp 20 22 18 B/P 157/86 132/80 Pulse Ox 97 99 97 O2 Delivery Room Air Nasal Cannula Nasal Cannula Room Air O2 Flow Rate 2.0 2.0 01/30/17 01/30/17 01/30/17 01/31/17 21:50 23:00 23:00 01:00 Temp 97.9 97.9 Pulse 73 Resp 17 16 20 16 B/P 123/68 Pulse Ox 97 97 97 97 O2 Delivery Nasal Cannula Nasal Cannula Room Air Nasal Cannula O2 Flow Rate 2.0 2.0 2.0 01/31/17 01/31/17 01/31/17 01/31/17 03:00 04:38 05:50 07:49 Temp 97.8 97.7 97.8 97.7 Pulse 70 70 Resp 20 17 17 20 B/P 116/53 123/62 Pulse Ox 95 95 95 96 O2 Delivery Room Air Nasal Cannula Nasal Cannula Room Air O2 Flow Rate 2.0 2.0 01/31/17 01/31/17 01/31/17 01/31/17 08:00 08:11 08:12 10:38 Temp 97.9 97.9 Pulse 70 82 Resp 20 B/P 123/62 105/57 Pulse Ox 90 O2 Delivery Room Air Room Air Room Air Intake and Output 01/30/17 01/30/17 01/31/17 15:00 23:00 07:00 Intake Total 650 ml 450 ml Output Total 550 ml 450 ml Balance 100 ml 0 ml JAMES QUAN MD Jan 31, 2017 14:47
--- NOTE | 2017-01-31 14:56 | PDOC ---
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 Vitals Vital Signs Vital Signs Date Time Temp Pulse Resp B/P Pulse Ox O2 Delivery O2 Flow Rate FiO2 01/31/17 10:38 97.9 82 20 105/57 90 Room Air 97.9 01/31/17 05:50 2.0 Labs Last Labs Laboratory Tests Test 01/29/17 17:45 01/29/17 18:33 01/29/17 18:55 01/29/17 20:18 Potassium Level 4.3mmol/L (3.5-5.1) Hepatitis B Surface Antigen Negative (Negative) Hepatitis B Surface Antibody Non reactive (.) Hepatitis B Core IgM Antibody Negative (Negative) Glucose (Fingerstick) 51mg/dL (70-99) 98mg/dL (70-99) 74mg/dL (70-99) Test 01/29/17 21:28 01/30/17 05:20 01/30/17 07:43 01/30/17 11:40 Glucose (Fingerstick) 91mg/dL (70-99) 120mg/dL (70-99) 164mg/dL (70-99) White Blood Count 3.5x10^3/uL (4.0-11.0) Red Blood Count 2.99x10^6/uL (4.30-5.70) Hemoglobin 9.6g/dL (13.0-17.5) Hematocrit 28.6% (39.0-53.0) Mean Corpuscular Volume 96fL (79-100) Mean Corpuscular Hemoglobin 32pg (25-35) Mean Corpuscular Hemoglobin Concent 34g/dL (31-37) Red Cell Distribution Width 14.4% (11.5-14.5) Platelet Count 56x10^3/uL (140-400) Neutrophils (%) (Auto) 69% (31-73) Lymphocytes (%) (Auto) 18% (24-48) Monocytes (%) (Auto) 12% (0-9) Eosinophils (%) (Auto) 1% (0-3) Basophils (%) (Auto) 0% (0-3) Neutrophils # (Auto) 2.4x10^3uL (1.8-7.7) Lymphocytes # (Auto) 0.6x10^3/uL (1.0-4.8) Monocytes # (Auto) 0.4x10^3/uL (0.0-1.1) Eosinophils # (Auto) 0.0x10^3/uL (0.0-0.7) Basophils # (Auto) 0.0x10^3/uL (0.0-0.2) Prothrombin Time 21.0SEC (11.7-14.0) Prothromb Time International Ratio 1.9 (0.8-1.1) Sodium Level 138mmol/L (136-145) Potassium Level 4.9mmol/L (3.5-5.1) Chloride Level 100mmol/L (98-107) Carbon Dioxide Level 31mmol/L (21-32) Anion Gap 7 (6-14) Blood Urea Nitrogen 64mg/dL (8-26) Creatinine 2.6mg/dL (0.7-1.3) Estimated GFR (Cockcroft-Gault) 23.8 Glucose Level 140mg/dL (70-99) Calcium Level 7.6mg/dL (8.5-10.1) Test 01/30/17 16:24 01/30/17 20:34 01/30/17 20:49 01/31/17 04:40 Glucose (Fingerstick) 144mg/dL (70-99) 343mg/dL (70-99) Hemoglobin 9.0g/dL (13.0-17.5) 8.7g/dL (13.0-17.5) White Blood Count 4.0x10^3/uL (4.0-11.0) Red Blood Count 2.70x10^6/uL (4.30-5.70) Hematocrit 26.6% (39.0-53.0) Mean Corpuscular Volume 99fL (79-100) Mean Corpuscular Hemoglobin 32pg (25-35) Mean Corpuscular Hemoglobin Concent 33g/dL (31-37) Red Cell Distribution Width 14.4% (11.5-14.5) Platelet Count 59x10^3/uL (140-400) Neutrophils (%) (Auto) 62% (31-73) Lymphocytes (%) (Auto) 22% (24-48) Monocytes (%) (Auto) 15% (0-9) Eosinophils (%) (Auto) 1% (0-3) Basophils (%) (Auto) 1% (0-3) Neutrophils # (Auto) 2.5x10^3uL (1.8-7.7) Lymphocytes # (Auto) 0.9x10^3/uL (1.0-4.8) Monocytes # (Auto) 0.6x10^3/uL (0.0-1.1) Eosinophils # (Auto) 0.0x10^3/uL (0.0-0.7) Basophils # (Auto) 0.0x10^3/uL (0.0-0.2) Prothrombin Time 25.3SEC (11.7-14.0) Prothromb Time International Ratio 2.5 (0.8-1.1) Sodium Level 138mmol/L (136-145) Potassium Level 5.2mmol/L (3.5-5.1) Chloride Level 103mmol/L (98-107) Carbon Dioxide Level 30mmol/L (21-32) Anion Gap 5 (6-14) Blood Urea Nitrogen 32mg/dL (8-26) Creatinine 1.8mg/dL (0.7-1.3) Estimated GFR (Cockcroft-Gault) 36.4 Glucose Level 102mg/dL (70-99) Calcium Level 7.8mg/dL (8.5-10.1) Test 01/31/17 07:59 01/31/17 11:19 Glucose (Fingerstick) 88mg/dL (70-99) 134mg/dL (70-99) Laboratory Tests Test 01/30/17 16:24 01/30/17 20:34 01/30/17 20:49 01/31/17 04:40 Glucose (Fingerstick) 144mg/dL (70-99) 343mg/dL (70-99) Hemoglobin 9.0g/dL (13.0-17.5) 8.7g/dL (13.0-17.5) White Blood Count 4.0x10^3/uL (4.0-11.0) Red Blood Count 2.70x10^6/uL (4.30-5.70) Hematocrit 26.6% (39.0-53.0) Mean Corpuscular Volume 99fL (79-100) Mean Corpuscular Hemoglobin 32pg (25-35) Mean Corpuscular Hemoglobin Concent 33g/dL (31-37) Red Cell Distribution Width 14.4% (11.5-14.5) Platelet Count 59x10^3/uL (140-400) Neutrophils (%) (Auto) 62% (31-73) Lymphocytes (%) (Auto) 22% (24-48) Monocytes (%) (Auto) 15% (0-9) Eosinophils (%) (Auto) 1% (0-3) Basophils (%) (Auto) 1% (0-3) Neutrophils # (Auto) 2.5x10^3uL (1.8-7.7) Lymphocytes # (Auto) 0.9x10^3/uL (1.0-4.8) Monocytes # (Auto) 0.6x10^3/uL (0.0-1.1) Eosinophils # (Auto) 0.0x10^3/uL (0.0-0.7) Basophils # (Auto) 0.0x10^3/uL (0.0-0.2) Prothrombin Time 25.3SEC (11.7-14.0) Prothromb Time International Ratio 2.5 (0.8-1.1) Sodium Level 138mmol/L (136-145) Potassium Level 5.2mmol/L (3.5-5.1) Chloride Level 103mmol/L (98-107) Carbon Dioxide Level 30mmol/L (21-32) Anion Gap 5 (6-14) Blood Urea Nitrogen 32mg/dL (8-26) Creatinine 1.8mg/dL (0.7-1.3) Estimated GFR (Cockcroft-Gault) 36.4 Glucose Level 102mg/dL (70-99) Calcium Level 7.8mg/dL (8.5-10.1) Test 01/31/17 07:59 01/31/17 11:19 Glucose (Fingerstick) 88mg/dL (70-99) 134mg/dL (70-99) Assessment Assessment Problems Medical Problems: (1) Acute hyperkalemia Status: Acute (2) Acute renal failure Status: Acute Problems: Plan Plan of Care Problems Medical Problems: (1) Acute hyperkalemia Status: Acute (2) Acute renal failure Status: Acute RICHIE UPTON MD Jan 31, 2017 14:56
--- NOTE | 2017-01-31 16:21 | RAD ---
Ultrasound and fluoro guided temporary hemodialysis catheter Indication: 81-year-old male with acute on chronic kidney disease requiring hemodialysis. His recently placed right IJ temporary hemodialysis catheter was inadvertently pulled out. Temporary dialysis catheter replacement has been requested. Tunneled dialysis catheter insertion was contraindicated due to coagulopathy. Fluoro time: 0.6 minutes Kerma-Area Product: 2 Gycm2 Anesthesia: Local anesthesia with IV Versed anxiolysis. No moderate sedation was utilized. Sterility: All elements of maximal sterile barrier technique, including the use of a cap, mask, sterile gown, sterile gloves, large sterile sheet, appropriate hand hygiene, and 2% chlorhexidine for cutaneous antisepsis (or acceptable alternative antiseptic per current guidelines) were utilized. Procedure: Informed consent was obtained from the patient's . He was placed supine on the angiography table. Preliminary ultrasound examination of right neck revealed patency of right external jugular vein, which was documented with a single hard copy ultrasound image. Right neck was then prepped and draped in the usual sterile fashion, utilizing all elements of maximal sterile barrier technique, as described above. Using aseptic technique, local anesthesia, direct ultrasound guidance, and the micropuncture system, successful percutaneous entry was achieved into right external jugular vein. The right EJ venostomy tract was then dilated and a 14 [place] 20cm Schon temporary hemodialysis catheter was easily advanced centrally over an angiographic guidewire, and was positioned with its tip at the level of upper-mid right atrium utilizing fluoroscopic guidance. This catheter was documented to flush and aspirate normally, was packed, and was secured at the right neck exit site utilizing suture and sterile dressing. Patient tolerated the procedure well without apparent complication. Satisfactory position of the dialysis catheter was confirmed with a single fluoroscopic spot image. Impression: Successful, uneventful ultrasound and fluoro guided placement of right jugular 14 [place] 20cm Schon temporary hemodialysis catheter, as described.
[2017-01-31] MEDS: WARFARIN 4 MG TABLET. PO SCH (17:23)
[2017-01-31 19:06] VITALS: BP 131/64
[2017-01-31] MEDS: rOPINIRole 1 MG TABLET. PO SCH (20:19)
[2017-01-31] MEDS: LATANOPROST 0.005% OPHTH SOLUTION 2.5ML BOTTLE. OU SCH (20:22)
[2017-01-31] MEDS: DEXAMETHASONE OS SCH (20:25)
[2017-01-31] MEDS: NEOMYCIN OS SCH (20:25)
[2017-01-31] MEDS: [UNRECOGNIZED DRUG - OTHER] OS SCH (20:25)
[2017-01-31] MEDS: INSULIN DETEMIR 300 UNITS/3 ML INSULN.PEN. SQ SCH (21:31)
--- NOTE | 2017-01-31 22:57 | CONS ---
DATE OF CONSULTATION: 01/31/2017 ATTENDING PHYSICIAN: Dr. Carvalho. The patient was seen at the request of Dr. Carvalho for rehab evaluation about his back pain. HISTORY OF PRESENT ILLNESS: This is an 81-year-old male admitted on 01/29/2017 with lethargy. He was discharged from this medical center on 01/05/2017. 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 He was discharged to home with home health, but soon after became weak and lethargic, reports of change in his mental status, and decreased mentation as per his . Labs revealed creatinine jumped to 5 from 2, potassium 6.7. The patient since admission is being treated with a diagnosis of acute hyperkalemia and acute renal failure. The patient with known hypertension, previous myocardial infarction, hyperlipidemia, pneumonia, gastroesophageal reflux disease, anemia, carcinoma, chronic lower back pain status post lumbar spine surgery and also left rotator cuff surgery, osteoarthritis, chronic renal insufficiency, and diabetes mellitus. Family history of heart disease. He is known allergic to STATINS, GABAPENTIN, and SULFA. The patient admits chronic lower back pain. He used a stimulator in the past, but not at the present time. The patient denies any radiation of pain to the lower extremities. The patient denies any tingling or numbness sensation in the extremities. The patient usually walks without any assistive devices inside the house; outside when he is going long distance like shopping, he uses a cane. The patient had no stairs for him to manage at home, and he lives with his . PHYSICAL EXAMINATION: Today revealed an elderly male. He is alert, oriented to time, place, person, and circumstance and follows commands appropriately, moves all 4 extremities voluntarily where he had 4+/5 grade muscle strength. Deep tendon reflexes are decreased overall with absent knee and ankle jerks. He had dressing to his feet and legs. The patient had tenderness to palpation over sacroiliac joint area bilaterally, and straight leg raising test is negative bilaterally. He had crepitus on range of motion on both knee joints without any obvious knee joint effusion. He had ulnar hand intrinsic muscle atrophy and relative weakness of these muscle groups. Negative Tinel sign over median nerve at the wrist and over left ulnar nerve at the elbow, positive Tinel sign over right ulnar nerve at the elbow. He is independent with bed mobility and transfers and most of the aspects of his self-care. He had bruised left thigh; other than that, his skin is intact. ASSESSMENT: An elderly male with chronic lower back pain status post previous lumbar spine surgery. No clinical evidence of ongoing lumbar radiculopathy. Diabetes mellitus with peripheral neuropathy and degenerative joint disease of both knees. RECOMMENDATIONS: I have advised him about injections or lumbar corset, and he is not interested at this time. If he is willing, to get him a TENS unit to help ease his back pain if he does not have one. Dr. Carvalho, I appreciate asking me to participate in care of this interesting patient. I will be glad to follow him with you as needed for the rehabilitation. CORBIN CHATMAN MD DR: DOUGLAS/elpidio JOB#: [id number] / [id number]
[2017-01-31 23:00] VITALS: BP 135/70
[2017-02-01 03:00] VITALS: BP 117/63
[2017-02-01 04:19] LABS: BASO % 1 % (0-3); EOS % 1 % (0-3); HEMATOCRIT 25.9 % (39.0-53.0); LYMPH # 0.8 x10^3/uL (1.0-4.8); LYMPH % 14 % (24-48); MEAN CORPUSCULAR HEMOGLOBIN 33 pg (25-35); MEAN CORPUSCULAR HGB CONC 35 g/dL (31-37); MEAN CORPUSCULAR VOLUME 96 fL (79-100); MONO % 11 % (0-9); NEUT % 74 % (31-73); PLATELET COUNT 65 x10^3/uL (140-400); RED CELL DISTRIBUTION WIDTH 14.9 % (11.5-14.5); WHITE BLOOD COUNT 5.8 x10^3/uL (4.0-11.0)
[2017-02-01 04:27] LABS: INR 2.9 (0.8-1.1); PROTHROMBIN TIME PATIENT 29.1 SEC (11.7-14.0)
[2017-02-01 04:43] LABS: CALCIUM 8.5 mg/dL (8.5-10.1); CREATININE 1.8 mg/dL (0.7-1.3); GFR 36.4; POTASSIUM 4.5 mmol/L (3.5-5.1)
[2017-02-01 06:45] VITALS: BP 142/70
[2017-02-01] MEDS: INSULIN ASPART 300 UNITS/3 ML INSULN.PEN SQ SCH ×6 (07:49→16:25)
[2017-02-01] MEDS: DUREZOL OS SCH ×4 (07:57→21:28)
[2017-02-01] MEDS: LIPASE/PROTEAS/AMYLASE 5/17/27 CAPSULE.DR. PO SCH (07:58)
[2017-02-01] MEDS: DORZOLAMIDE/TIMOLOL 2%/0.5% OPHTH SOLUTION 10ML BOTTLE. OU SCH ×2 (07:58→21:26)
[2017-02-01] MEDS: CALCITRIOL 0.25 MCG CAPSULE PO SCH (07:58)
[2017-02-01] MEDS: GEMFIBROZIL 600 MG TABLET. PO SCH ×2 (07:58→16:40)
[2017-02-01] MEDS: TAMSULOSIN 0.4 MG CAP.ER.24H. PO SCH (07:58)
[2017-02-01] MEDS: FOLIC ACID 1 MG TABLET PO SCH ×3 (07:58→21:23)
[2017-02-01] MEDS: MORPHINE ER 30 MG TABLET.ER PO SCH ×2 (07:59→21:22)
[2017-02-01] MEDS: PANTOPRAZOLE 40 MG TABLET. PO SCH (07:59)
[2017-02-01] MEDS: ASPIRIN ENTERIC COATED 81 MG TABLET.DR. PO SCH (07:59)
[2017-02-01] MEDS: METOPROLOL TART IMMED RELEASE 50 MG TABLET PO SCH (07:59)
[2017-02-01] MEDS: FERROUS SULFATE 325 MG TABLET PO SCH (07:59)
[2017-02-01] MEDS: PREGABALIN 75 MG CAPSULE PO SCH ×2 (07:59→21:23)
[2017-02-01] MEDS: SENNOSIDES 8.6 MG TABLET PO SCH ×2 (07:59→21:23)
[2017-02-01] MEDS: OMEGA-3 FATTY ACIDS/FISH OIL 1,000 MG CAPSULE. PO SCH (07:59)
[2017-02-01] MEDS: SPIRONOLACTONE 25 MG TABLET PO SCH (08:00)
--- NOTE | 2017-02-01 09:36 | PDOC ---
PROGRESS NOTES Subjective Subjective He admits continued low back pain but not interested in injections or use of back support at present time. Objective Objective Vital Signs Date Time Temp Pulse Resp B/P Pulse Ox O2 Delivery O2 Flow Rate FiO2 02/01/17 08:00 Room Air 02/01/17 07:59 72 142/70 02/01/17 06:45 96.6 18 94 96.6 01/31/17 05:50 2.0 Intake and Output 02/01/17 07:00 Intake Total 1200 ml Output Total 200 ml Balance 1000 ml Intake Oral 1200 ml Output Urine Total 200 ml Physical Exam Physical Exam He is sitting in bedside chair and seems to be in no acute distress and he had bruised skin left eye and right anterior chest wall.He is retropulsive walking with cane as per physical therapy and they are going to try using walker today and they recommend SNF when medically stable before going home. Assessment Assessment Problems Medical Problems: (1) Acute hyperkalemia Status: Acute (2) Acute renal failure Status: Acute Plan Plan of Care To continue physical and occupational therapy follow up. Comment Review of Relevant I have reviewed the following items sarah (where applicable) has been applied. Labs Laboratory Tests Test 01/30/17 11:40 01/30/17 16:24 01/30/17 20:34 01/30/17 20:49 Glucose (Fingerstick) 164mg/dL (70-99) 144mg/dL (70-99) 343mg/dL (70-99) Hemoglobin 9.0g/dL (13.0-17.5) Test 01/31/17 04:40 01/31/17 07:59 01/31/17 11:19 01/31/17 17:21 White Blood Count 4.0x10^3/uL (4.0-11.0) Red Blood Count 2.70x10^6/uL (4.30-5.70) Hemoglobin 8.7g/dL (13.0-17.5) Hematocrit 26.6% (39.0-53.0) Mean Corpuscular Volume 99fL (79-100) Mean Corpuscular Hemoglobin 32pg (25-35) Mean Corpuscular Hemoglobin Concent 33g/dL (31-37) Red Cell Distribution Width 14.4% (11.5-14.5) Platelet Count 59x10^3/uL (140-400) Neutrophils (%) (Auto) 62% (31-73) Lymphocytes (%) (Auto) 22% (24-48) Monocytes (%) (Auto) 15% (0-9) Eosinophils (%) (Auto) 1% (0-3) Basophils (%) (Auto) 1% (0-3) Neutrophils # (Auto) 2.5x10^3uL (1.8-7.7) Lymphocytes # (Auto) 0.9x10^3/uL (1.0-4.8) Monocytes # (Auto) 0.6x10^3/uL (0.0-1.1) Eosinophils # (Auto) 0.0x10^3/uL (0.0-0.7) Basophils # (Auto) 0.0x10^3/uL (0.0-0.2) Prothrombin Time 25.3SEC (11.7-14.0) Prothromb Time International Ratio 2.5 (0.8-1.1) Sodium Level 138mmol/L (136-145) Potassium Level 5.2mmol/L (3.5-5.1) Chloride Level 103mmol/L (98-107) Carbon Dioxide Level 30mmol/L (21-32) Anion Gap 5 (6-14) Blood Urea Nitrogen 32mg/dL (8-26) Creatinine 1.8mg/dL (0.7-1.3) Estimated GFR (Cockcroft-Gault) 36.4 Glucose Level 102mg/dL (70-99) Calcium Level 7.8mg/dL (8.5-10.1) Glucose (Fingerstick) 88mg/dL (70-99) 134mg/dL (70-99) 94mg/dL (70-99) Test 01/31/17 21:12 02/01/17 03:45 02/01/17 07:07 Glucose (Fingerstick) 150mg/dL (70-99) 136mg/dL (70-99) White Blood Count 5.8x10^3/uL (4.0-11.0) Red Blood Count 2.70x10^6/uL (4.30-5.70) Hemoglobin 9.0g/dL (13.0-17.5) Hematocrit 25.9% (39.0-53.0) Mean Corpuscular Volume 96fL (79-100) Mean Corpuscular Hemoglobin 33pg (25-35) Mean Corpuscular Hemoglobin Concent 35g/dL (31-37) Red Cell Distribution Width 14.9% (11.5-14.5) Platelet Count 65x10^3/uL (140-400) Neutrophils (%) (Auto) 74% (31-73) Lymphocytes (%) (Auto) 14% (24-48) Monocytes (%) (Auto) 11% (0-9) Eosinophils (%) (Auto) 1% (0-3) Basophils (%) (Auto) 1% (0-3) Neutrophils # (Auto) 4.3x10^3uL (1.8-7.7) Lymphocytes # (Auto) 0.8x10^3/uL (1.0-4.8) Monocytes # (Auto) 0.6x10^3/uL (0.0-1.1) Eosinophils # (Auto) 0.0x10^3/uL (0.0-0.7) Basophils # (Auto) 0.0x10^3/uL (0.0-0.2) Prothrombin Time 29.1SEC (11.7-14.0) Prothromb Time International Ratio 2.9 (0.8-1.1) Sodium Level 136mmol/L (136-145) Potassium Level 4.5mmol/L (3.5-5.1) Chloride Level 99mmol/L (98-107) Carbon Dioxide Level 29mmol/L (21-32) Anion Gap 8 (6-14) Blood Urea Nitrogen 23mg/dL (8-26) Creatinine 1.8mg/dL (0.7-1.3) Estimated GFR (Cockcroft-Gault) 36.4 Glucose Level 171mg/dL (70-99) Calcium Level 8.5mg/dL (8.5-10.1) Laboratory Tests Test 01/31/17 11:19 01/31/17 17:21 01/31/17 21:12 02/01/17 03:45 Glucose (Fingerstick) 134mg/dL (70-99) 94mg/dL (70-99) 150mg/dL (70-99) White Blood Count 5.8x10^3/uL (4.0-11.0) Red Blood Count 2.70x10^6/uL (4.30-5.70) Hemoglobin 9.0g/dL (13.0-17.5) Hematocrit 25.9% (39.0-53.0) Mean Corpuscular Volume 96fL (79-100) Mean Corpuscular Hemoglobin 33pg (25-35) Mean Corpuscular Hemoglobin Concent 35g/dL (31-37) Red Cell Distribution Width 14.9% (11.5-14.5) Platelet Count 65x10^3/uL (140-400) Neutrophils (%) (Auto) 74% (31-73) Lymphocytes (%) (Auto) 14% (24-48) Monocytes (%) (Auto) 11% (0-9) Eosinophils (%) (Auto) 1% (0-3) Basophils (%) (Auto) 1% (0-3) Neutrophils # (Auto) 4.3x10^3uL (1.8-7.7) Lymphocytes # (Auto) 0.8x10^3/uL (1.0-4.8) Monocytes # (Auto) 0.6x10^3/uL (0.0-1.1) Eosinophils # (Auto) 0.0x10^3/uL (0.0-0.7) Basophils # (Auto) 0.0x10^3/uL (0.0-0.2) Prothrombin Time 29.1SEC (11.7-14.0) Prothromb Time International Ratio 2.9 (0.8-1.1) Sodium Level 136mmol/L (136-145) Potassium Level 4.5mmol/L (3.5-5.1) Chloride Level 99mmol/L (98-107) Carbon Dioxide Level 29mmol/L (21-32) Anion Gap 8 (6-14) Blood Urea Nitrogen 23mg/dL (8-26) Creatinine 1.8mg/dL (0.7-1.3) Estimated GFR (Cockcroft-Gault) 36.4 Glucose Level 171mg/dL (70-99) Calcium Level 8.5mg/dL (8.5-10.1) Test 02/01/17 07:07 Glucose (Fingerstick) 136mg/dL (70-99) Medications Current Medications Calcium Gluconate 1,000 mg 1X ONCE IVP Last administered on 01/29/17 14:19; Start 01/29/17 at 13:45; Stop 01/29/17 at 13:46; Status DC Dextrose 25 gm 1X ONCE IV Last administered on 01/29/17 14:29; Start 01/29/17 at 13:45; Stop 01/29/17 at 13:46; Status DC Insulin Human Regular (Novolin R Vial) 10 unit 1X ONCE IV Last administered on 01/29/17 14:32; Start 01/29/17 at 13:45; Stop 01/29/17 at 13:46; Status DC Furosemide (Lasix) 40 mg 1X ONCE IVP Last administered on 01/29/17 14:33; Start 01/29/17 at 13:45; Stop 01/29/17 at 13:46; Status DC Oxycodone/ Acetaminophen (Percocet 5/325) 1 tab 1X ONCE PO Last administered on 01/29/17 14:18; Start 01/29/17 at 14:00; Stop 01/29/17 at 14:02; Status DC Ondansetron HCl (Zofran) 4 mg PRN Q8HRS PRN IV NAUSEA/VOMITING; Start 01/29/17 at 14:15; Stop 01/29/17 at 14:43; Status DC Fentanyl Citrate 50 mcg 50 mcg PRN Q2HR PRN IV PAIN Last administered on 11:04; Start 01/29/17 at 14:15; Stop 01/30/17 at 14:14; Status DC Sodium Chloride (Iv Sodium Chloride 0.9% 1000ml Bag) 1,000 ml @ 75 mls/hr [id number] IV Last administered on 01/29/17 22:15; Start 01/29/17 at 14:12; Stop at 14:11; Status DC Acetaminophen (Tylenol) 650 mg PRN Q4HRS PRN PO FEVER; Start 01/29/17 at 14:15; Stop 01/30/17 at 14:14; Status DC Ondansetron HCl (Zofran) 4 mg PRN Q6HRS PRN IV NAUSEA/VOMITING; Start 01/29/17 at 14:39 Alprazolam (Xanax) 0.5 mg PRN TID PRN PO nerves Last administered on 01/30/17 16:22; Start 01/29/17 at 14:45 Calcitriol (Rocaltrol) 0.25 mcg DAILY PO Last administered on 02/01/17 07:58; Start 01/30/17 at 09:00 Dorzolamide/ Timolol (Cosopt) 1 drop BID OU Last administered on 02/01/17 07:58 ; Start 01/29/17 at 21:00 Ferrous Sulfate (Feosol) 325 mg DAILY PO Last administered on 02/01/17 07:59; Start 01/30/17 at 09:00 Folic Acid (Folic Acid) 2 mg TID PO Last administered on 02/01/17 07:58; Start 01/29/17 at 15:30 Gemfibrozil (Lopid) 600 mg BIDBFRMEAL PO Last administered on 02/01/17 07:58; Start 01/29/17 at 16:30 Latanoprost (Xalatan) 1 drop QHS OU Last administered on 01/31/17 20:22; Start 01/29/17 at 21:00 Amylase/Lipase/ Protease (Zenpep 5,000) 4 cap DAILY PO Last administered on 02/01 07:58; Start 01/30/17 at 09:00 Metoprolol Tartrate (Lopressor) 50 mg DAILY PO Last administered on 02/01/17 07 :59; Start 01/30/17 at 09:00 Fish Oil (Fish Oil) 1,000 mg DAILY PO Last administered on 02/01/17 07:59; Start 01/30/17 at 09:00 Pregabalin (Lyrica) 75 mg BID PO Last administered on 02/01/17 07:59; Start 01/29/17 at 21:00 Ropinirole HCl (Requip) 1 mg HS PO Last administered on 01/31/17 20:19; Start 01/29/17 at 21:00 Sennosides (Senna) 8.6 mg BID PO Last administered on 02/01/17 07:59; Start 01/29/17 at 21:00 Spironolactone (Aldactone) 25 mg DAILY PO Last administered on 02/01/17 08:00; Start 01/30/17 at 09:00 Tamsulosin HCl (Flomax) 0.8 mg DAILY PO Last administered on 02/01/17 07:58; Start 01/30/17 at 09:00 Insulin Detemir (Levemir) 22 units QHS SQ ; Start 01/29/17 at 21:00; Stop at 11:22; Status DC Insulin Aspart (Novolog) 8 units TIDBFRMEAL SQ Last administered on 01/30/17 08 :48; Start 01/29/17 at 16:30; Stop 01/30/17 at 11:22; Status DC Pantoprazole Sodium (Protonix) 40 mg DAILYAC PO Last administered on 02/01/17 07:59; Start 01/30/17 at 07:30 Morphine Sulfate (Ms Contin) 30 mg BID PO Last administered on 02/01/17 07:59; Start 01/29/17 at 21:00 Phytonadione (Mephyton) 5 mg 1X ONCE PO ; Start 01/29/17 at 15:30; Stop 01/29/17 at 15:31; Status DC Insulin Aspart (Novolog) 0-9 UNITS TIDWMEALS SQ ; Start 01/29/17 at 17:00 Dextrose 12.5 gm 12.5 gm PRN Q15MIN PRN IV SEE COMMENTS Last administered on 18:40; Start 01/29/17 at 14:45 Sodium Chloride (Iv Sodium Chloride 0.9% 500ml Bag) 500 ml @ 500 mls/hr 1X ONCE IV Last administered on 01/29/17 15:15; Start 01/29/17 at 15:15; Stop at 16:14; Status DC Heparin Sodium (Porcine) 92318 unit 10,000 unit STK-MED ONCE .ROUTE ; Start 01/29 at 15:30; Stop 01/29/17 at 15:31; Status DC Heparin Sodium/ Sodium Chloride 500 ml @ As Directed STK-MED ONCE .ROUTE ; Start 01/29/17 at 15:30; Stop 01/29/17 at 15:31; Status DC Lidocaine/ Epinephrine (Xylocaine 1%-Epi 1:100,000) 20 ml STK-MED ONCE .ROUTE ; Start 01/29/17 at 15:31; Stop 01/29/17 at 15:32; Status DC Lidocaine/ Epinephrine (Xylocaine 1%-Epi 1:100,000) 4 ml 1X ONCE IJ Last administered on 01/29/17 16:30; Start 01/29/17 at 16:00; Stop 01/29/17 at 16:01; Status DC Heparin Sodium/ Sodium Chloride 60 unit 1X ONCE IV Last administered on 16:30; Start 01/29/17 at 16:00; Stop 01/29/17 at 16:01; Status DC Heparin Sodium (Porcine) 2500 unit 2,500 unit 1X ONCE INT CAT Last administered on 01/29/17 16:30; Start 01/29/17 at 16:00; Stop 01/29/17 at 16:01; Status DC Sodium Chloride 1,000 ml @ 1,000 mls/hr Q1H PRN IV hypotension; Start 01/29/17 at 17:31; Stop 01/29/17 at 23:30; Status DC Albumin Human (Albuminar) 200 ml @ 200 mls/hr 1X PRN PRN IV Hypotension; Start 01/29/17 at 17:45; Stop 01/29/17 at 23:30; Status DC Sodium Chloride (Normal Saline Flush) 10 ml 1X PRN PRN IV AP 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; Start 01/29/17 at 17:45; Stop 01/29/17 at 23:30; Status DC Sodium Chloride (Normal Saline Flush) 10 ml 1X PRN PRN IV COIL FORMER 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; Start 01/29/17 at 17:45; Stop 01/29/17 at 23:30; Status DC Info (PHARMACY MONITORING -- do not chart) 1 each PRN DAILY PRN MC SEE COMMENTS ; Start 01/29/17 at 17:45 Info (PHARMACY MONITORING -- do not chart) 1 each PRN DAILY PRN MC SEE COMMENTS ; Start 01/29/17 at 17:45; Status UNV Aspirin (Ecotrin) 81 mg DAILY PO Last administered on 02/01/17 07:59; Start 01/30/17 at 09:00 Warfarin Sodium (Coumadin) 4 mg DAILY16 PO Last administered on 01/31/17 17:23 ; Start 01/29/17 at 19:00 Warfarin Sodium (Coumadin Per Physician) 1 each PRN DAILY PRN MC SEE COMMENTS Last administered on 01/31/17 17:25; Start 01/29/17 at 18:30 Insulin Aspart (Novolog) 5 units TIDBFRMEAL SQ Last administered on 02/01/17 08 :08; Start 01/30/17 at 11:30 Insulin Detemir 18 units 18 units QHS SQ Last administered on 01/31/17 21:31; Start 01/30/17 at 21:00 Sodium Chloride (Iv Sodium Chloride 0.9% 1000ml Bag) 1,000 ml @ 1,000 mls/hr Q1H PRN IV hypotension; Start 01/30/17 at 11:38; Stop 01/30/17 at 17:37; Status DC Sodium Chloride (Normal Saline Flush) 10 ml 1X PRN PRN IV AP 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; Start 01/30/17 at 11:45; Stop 01/31/17 at 11:44; Status DC Sodium Chloride (Normal Saline Flush) 10 ml 1X PRN PRN IV COIL FORMER 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; Start 01/30/17 at 11:45; Stop 01/31/17 at 11:44; Status DC Info (PHARMACY MONITORING -- do not chart) 1 each PRN DAILY PRN MC SEE COMMENTS ; Start 01/30/17 at 11:45; Status UNV Info (PHARMACY MONITORING -- do not chart) 1 each PRN DAILY PRN MC SEE COMMENTS ; Start 01/30/17 at 11:45; Status UNV Oxycodone/ Acetaminophen (Percocet 5/325) 1 tab PRN Q4HRS PRN PO PAIN Last administered on 01/30/17 21:50; Start 01/30/17 at 18:45 Oxycodone/ Acetaminophen (Percocet 10/325) 1 tab PRN Q4HRS PRN PO PAIN Last administered on 01/31/17 18:00; Start 01/30/17 at 18:45 Insulin Aspart (Novolog) 9 units 1X ONCE SQ Last administered on 01/30/17 21: 57; Start 01/30/17 at 21:30; Stop 01/30/17 at 21:31; Status DC Lidocaine/Sodium Bicarbonate (Buffered Lidocaine 1%) 3 ml 1X ONCE IJ Last administered on 01/31/17 12:15; Start 01/31/17 at 12:15; Stop 01/31/17 at 12:16; Status DC Heparin Sodium/ Sodium Chloride 60 unit 1X ONCE IV Last administered on 13:02; Start 01/31/17 at 12:15; Stop 01/31/17 at 12:16; Status DC Heparin Sodium (Porcine) 2,500 unit 1X ONCE INT CAT Last administered on 13:02; Start 01/31/17 at 12:15; Stop 01/31/17 at 12:16; Status DC Heparin Sodium (Porcine) 10,000 unit STK-MED ONCE .ROUTE ; Start 01/31/17 at 12: 18; Stop 01/31/17 at 12:19; Status DC Fentanyl Citrate (Fentanyl 2ml Vial) 100 mcg STK-MED ONCE .ROUTE ; Start at 12:29; Stop 01/31/17 at 12:30; Status DC Midazolam HCl (Versed) 2 mg STK-MED ONCE .ROUTE ; Start 01/31/17 at 12:29; Stop 01/31/17 at 12:30; Status DC Midazolam HCl (Versed) 2 mg 1X ONCE IV Last administered on 01/31/17 13:01; Start 01/31/17 at 13:00; Stop 01/31/17 at 13:01; Status DC Non-Formulary Medication 1 ea QID OS Last administered on 02/01/17 07:57; Start 01/31/17 at 14:00 Non-Formulary Medication 1 ea QHS OS Last administered on 01/31/17 20:25; Start 01/31/17 at 21:00 Active Scripts Active Lasix (Furosemide) 80 Mg Tablet 1 Tab PO DAILY Reported Umekis-Iueka-Xupknjv Eye Ointm ([place]/Polymyx B Sulf/Dexameth) 3.5 Gm Oint...g. 3.5 Gm OS QHS Durezol (Difluprednate) 5 Ml Drops 1 Drop OS QID Aspir 81 (Aspirin) 81 Mg Tablet.dr 1 Tab PO DAILY Senokot (Sennosides) 8.6 Mg Tablet 3 Tab PO BID Morphine Sulfate Er (Morphine Sulfate) 60 Mg Cap.er.pel 60 Mg PO Metoprolol Tartrate 50 Mg Tablet 0.5 Tab PO DAILY Latanoprost 2.5 Ml Drops 1 Drop EACHEYE QHS Gemfibrozil 600 Mg Tablet 1 Tab PO BID Dorzolamide-Timolol Eye Drops (Dorzolamide Hcl/Timolol Maleat) 10 Ml Drops 1 Drop RIGHTEYE BID Lyrica (Pregabalin) 75 Mg Capsule 1 Cap PO BID Alprazolam 0.5 Mg Tablet 1 Tab PO TID Warfarin Sodium 4 Mg Tablet 1 Tab PO DAILY Fish Oil 1,000 Mg Capsule ([place]-3 Fatty Acids/Fish Oil) 1 Each Capsule 4 Each PO DAILY Pancrelipase Dr 5,000 Unit Cap (Lipase/Protease/Amylase) 1 Each Capsule.dr 4 Each PO Prilosec Otc (Omeprazole Magnesium) 20 Mg Tablet.dr 20 Mg PO DAILY Lyrica (Pregabalin) 25 Mg Capsule 50 Mg PO TID 30 Days Gemfibrozil 600 Mg Tablet 600 Mg PO BID Spironolactone 25 Mg Tablet 25 Mg PO DAILY Calcitriol 0.25 Mcg Capsule 0.25 Mcg PO DAILY Lantus (Insulin Glargine,Hum.rec.anlog) 100 Unit/1 Ml Vial 22 Unit SQ HS Humalog (Insulin Lispro) 100 Unit/1 Ml Vial 8 Unit SQ TID Folic Acid 1 Mg Tablet 2 Mg PO TID Ferosul (Ferrous Sulfate) 325 Mg Tablet 325 Mg PO Ropinirole Hcl 1 Mg Tablet 1 Mg PO HS Tamsulosin Hcl 0.4 Mg Cap.er.24h 0.8 Mg PO DAILY Travatan Z (Travoprost) 5 Ml Drops 5 Ml OP Vitals/I & O Vital Sign - Last 24 Hours 01/31/17 01/31/17 01/31/17 01/31/17 10:38 18:00 19:00 19:06 Temp 97.9 98.5 97.9 98.5 Pulse 82 70 Resp 20 20 B/P 105/57 131/64 Pulse Ox 90 91 O2 Delivery Room Air Room Air Room Air Room Air 01/31/17 01/31/17 01/31/17 02/01/17 20:00 20:20 23:00 00:20 Temp 98.6 98.6 Pulse 80 Resp 20 B/P 135/70 Pulse Ox 95 O2 Delivery Room Air Room Air Room Air Room Air 02/01/17 02/01/17 02/01/17 02/01/17 03:00 06:45 07:59 07:59 Temp 97.9 96.6 97.9 96.6 Pulse 70 72 72 Resp 20 18 B/P 117/63 142/70 142/70 Pulse Ox 94 94 O2 Delivery Room Air Room Air Room Air 02/01/17 08:00 O2 Delivery Room Air Intake and Output 01/31/17 01/31/17 02/01/17 15:00 23:00 07:00 Intake Total 700 ml 300 ml 200 ml Output Total 200 ml Balance 700 ml 100 ml 200 ml CORBIN CHATMAN MD Feb 01, 2017 09:36
[2017-02-01 11:04] VITALS: BP 142/70
--- NOTE | 2017-02-01 13:28 | PDOC ---
PROGRESS NOTES Chief Complaint Chief Complaint 1. Oliguric, hyperkalemic renal failure POA, needing STAT initiation of HD ( first session 01/29/17), 2 TIM on CKD, maybe even ESRD now needing stat HD initiation 3. MEtabolic encephalopathy 4. chronic LE edema stable 5. CHF 4. Multivessel CAD s/p recent CABG 6. SSS with indwelling PPM 7. PAFIB; maintaining SR 8. Therapeutic INR on coumadin 9. Acute on chronic back pain, indwelling back stimulator - needs adjustment 10. DM2, on insulin 11. BPH plan: 1. fu with renal, pt pulled out his rt IJ temp HD cath, will get a new one today 2. labs daily 3. cont home meds, on coumadin daily, INR daily, will hold if need to do a chest perm HD cath, fu with IR, RENAL 4. pain control, fu with dr. Kristen RUSSELL, ON insulin refuse Rehab, with bad experience before, has HH. need to fu with renal to see if need a perm HD and set up outpt HD? uro consult for BPH, on flomax History of Present Illness History of Present Illness Numbers better after first session HD since Sat, new to pt Pt cant recall the details very involved in his care Only got 1 FFP yesterday (prior to HD cath insertion) (INR was 2,3 on warfarin for cardiac related issues) But HD cath inserted and now running second session HD I see that Hepatitis panel has been ordered- looking at OP HD set up now aware Relays back pain - lidoderm patch HELPS BUT IS WEARY TO START MDs in [facility] SAID IT GETS RENALLY EXCRETED. I did review literature on that and there was no dosage adjustments needed for renal impairment BUt still uncomfortable to restart Lidoderm patch Vitals Vitals Vital Signs Date Time Temp Pulse Resp B/P Pulse Ox O2 Delivery O2 Flow Rate FiO2 02/01/17 12:11 Room Air 02/01/17 11:04 98.6 69 14 142/70 94 98.6 Physical Exam General: Alert, Oriented X3, Cooperative, No acute distress Heart: Regular rate, Normal S1, Normal S2, No murmurs, Gallops Lungs: Clear Abdomen: Normal bowel sounds, Soft, No tenderness, No hepatosplenomegaly, No masses Extremities: No clubbing, No cyanosis, No edema, Normal pulses, No tenderness/ swelling Skin: No rashes, No breakdown, No significant lesion Labs LABS Laboratory Tests Test 01/31/17 17:21 01/31/17 21:12 02/01/17 03:45 02/01/17 07:07 Glucose (Fingerstick) 94mg/dL (70-99) 150mg/dL (70-99) 136mg/dL (70-99) White Blood Count 5.8x10^3/uL (4.0-11.0) Red Blood Count 2.70x10^6/uL (4.30-5.70) Hemoglobin 9.0g/dL (13.0-17.5) Hematocrit 25.9% (39.0-53.0) Mean Corpuscular Volume 96fL (79-100) Mean Corpuscular Hemoglobin 33pg (25-35) Mean Corpuscular Hemoglobin Concent 35g/dL (31-37) Red Cell Distribution Width 14.9% (11.5-14.5) Platelet Count 65x10^3/uL (140-400) Neutrophils (%) (Auto) 74% (31-73) Lymphocytes (%) (Auto) 14% (24-48) Monocytes (%) (Auto) 11% (0-9) Eosinophils (%) (Auto) 1% (0-3) Basophils (%) (Auto) 1% (0-3) Neutrophils # (Auto) 4.3x10^3uL (1.8-7.7) Lymphocytes # (Auto) 0.8x10^3/uL (1.0-4.8) Monocytes # (Auto) 0.6x10^3/uL (0.0-1.1) Eosinophils # (Auto) 0.0x10^3/uL (0.0-0.7) Basophils # (Auto) 0.0x10^3/uL (0.0-0.2) Prothrombin Time 29.1SEC (11.7-14.0) Prothromb Time International Ratio 2.9 (0.8-1.1) Sodium Level 136mmol/L (136-145) Potassium Level 4.5mmol/L (3.5-5.1) Chloride Level 99mmol/L (98-107) Carbon Dioxide Level 29mmol/L (21-32) Anion Gap 8 (6-14) Blood Urea Nitrogen 23mg/dL (8-26) Creatinine 1.8mg/dL (0.7-1.3) Estimated GFR (Cockcroft-Gault) 36.4 Glucose Level 171mg/dL (70-99) Calcium Level 8.5mg/dL (8.5-10.1) Test 02/01/17 11:17 Glucose (Fingerstick) 165mg/dL (70-99) Review of Systems Review of Systems no fever, chills, sob or chest pain Assessment and Plan Assessmemt and Plan Problems Medical Problems: (1) Acute hyperkalemia Status: Acute (2) Acute renal failure Status: Acute Problems: Comment Review of Relevant I have reviewed the following items sarah (where applicable) has been applied. Labs Laboratory Tests Test 01/30/17 16:24 01/30/17 20:34 01/30/17 20:49 01/31/17 04:40 Glucose (Fingerstick) 144mg/dL (70-99) 343mg/dL (70-99) Hemoglobin 9.0g/dL (13.0-17.5) 8.7g/dL (13.0-17.5) White Blood Count 4.0x10^3/uL (4.0-11.0) Red Blood Count 2.70x10^6/uL (4.30-5.70) Hematocrit 26.6% (39.0-53.0) Mean Corpuscular Volume 99fL (79-100) Mean Corpuscular Hemoglobin 32pg (25-35) Mean Corpuscular Hemoglobin Concent 33g/dL (31-37) Red Cell Distribution Width 14.4% (11.5-14.5) Platelet Count 59x10^3/uL (140-400) Neutrophils (%) (Auto) 62% (31-73) Lymphocytes (%) (Auto) 22% (24-48) Monocytes (%) (Auto) 15% (0-9) Eosinophils (%) (Auto) 1% (0-3) Basophils (%) (Auto) 1% (0-3) Neutrophils # (Auto) 2.5x10^3uL (1.8-7.7) Lymphocytes # (Auto) 0.9x10^3/uL (1.0-4.8) Monocytes # (Auto) 0.6x10^3/uL (0.0-1.1) Eosinophils # (Auto) 0.0x10^3/uL (0.0-0.7) Basophils # (Auto) 0.0x10^3/uL (0.0-0.2) Prothrombin Time 25.3SEC (11.7-14.0) Prothromb Time International Ratio 2.5 (0.8-1.1) Sodium Level 138mmol/L (136-145) Potassium Level 5.2mmol/L (3.5-5.1) Chloride Level 103mmol/L (98-107) Carbon Dioxide Level 30mmol/L (21-32) Anion Gap 5 (6-14) Blood Urea Nitrogen 32mg/dL (8-26) Creatinine 1.8mg/dL (0.7-1.3) Estimated GFR (Cockcroft-Gault) 36.4 Glucose Level 102mg/dL (70-99) Calcium Level 7.8mg/dL (8.5-10.1) Test 01/31/17 07:59 01/31/17 11:19 01/31/17 17:21 01/31/17 21:12 Glucose (Fingerstick) 88mg/dL (70-99) 134mg/dL (70-99) 94mg/dL (70-99) 150mg/dL (70-99) Test 02/01/17 03:45 02/01/17 07:07 02/01/17 11:17 White Blood Count 5.8x10^3/uL (4.0-11.0) Red Blood Count 2.70x10^6/uL (4.30-5.70) Hemoglobin 9.0g/dL (13.0-17.5) Hematocrit 25.9% (39.0-53.0) Mean Corpuscular Volume 96fL (79-100) Mean Corpuscular Hemoglobin 33pg (25-35) Mean Corpuscular Hemoglobin Concent 35g/dL (31-37) Red Cell Distribution Width 14.9% (11.5-14.5) Platelet Count 65x10^3/uL (140-400) Neutrophils (%) (Auto) 74% (31-73) Lymphocytes (%) (Auto) 14% (24-48) Monocytes (%) (Auto) 11% (0-9) Eosinophils (%) (Auto) 1% (0-3) Basophils (%) (Auto) 1% (0-3) Neutrophils # (Auto) 4.3x10^3uL (1.8-7.7) Lymphocytes # (Auto) 0.8x10^3/uL (1.0-4.8) Monocytes # (Auto) 0.6x10^3/uL (0.0-1.1) Eosinophils # (Auto) 0.0x10^3/uL (0.0-0.7) Basophils # (Auto) 0.0x10^3/uL (0.0-0.2) Prothrombin Time 29.1SEC (11.7-14.0) Prothromb Time International Ratio 2.9 (0.8-1.1) Sodium Level 136mmol/L (136-145) Potassium Level 4.5mmol/L (3.5-5.1) Chloride Level 99mmol/L (98-107) Carbon Dioxide Level 29mmol/L (21-32) Anion Gap 8 (6-14) Blood Urea Nitrogen 23mg/dL (8-26) Creatinine 1.8mg/dL (0.7-1.3) Estimated GFR (Cockcroft-Gault) 36.4 Glucose Level 171mg/dL (70-99) Calcium Level 8.5mg/dL (8.5-10.1) Glucose (Fingerstick) 136mg/dL (70-99) 165mg/dL (70-99) Laboratory Tests Test 01/31/17 17:21 01/31/17 21:12 02/01/17 03:45 02/01/17 07:07 Glucose (Fingerstick) 94mg/dL (70-99) 150mg/dL (70-99) 136mg/dL (70-99) White Blood Count 5.8x10^3/uL (4.0-11.0) Red Blood Count 2.70x10^6/uL (4.30-5.70) Hemoglobin 9.0g/dL (13.0-17.5) Hematocrit 25.9% (39.0-53.0) Mean Corpuscular Volume 96fL (79-100) Mean Corpuscular Hemoglobin 33pg (25-35) Mean Corpuscular Hemoglobin Concent 35g/dL (31-37) Red Cell Distribution Width 14.9% (11.5-14.5) Platelet Count 65x10^3/uL (140-400) Neutrophils (%) (Auto) 74% (31-73) Lymphocytes (%) (Auto) 14% (24-48) Monocytes (%) (Auto) 11% (0-9) Eosinophils (%) (Auto) 1% (0-3) Basophils (%) (Auto) 1% (0-3) Neutrophils # (Auto) 4.3x10^3uL (1.8-7.7) Lymphocytes # (Auto) 0.8x10^3/uL (1.0-4.8) Monocytes # (Auto) 0.6x10^3/uL (0.0-1.1) Eosinophils # (Auto) 0.0x10^3/uL (0.0-0.7) Basophils # (Auto) 0.0x10^3/uL (0.0-0.2) Prothrombin Time 29.1SEC (11.7-14.0) Prothromb Time International Ratio 2.9 (0.8-1.1) Sodium Level 136mmol/L (136-145) Potassium Level 4.5mmol/L (3.5-5.1) Chloride Level 99mmol/L (98-107) Carbon Dioxide Level 29mmol/L (21-32) Anion Gap 8 (6-14) Blood Urea Nitrogen 23mg/dL (8-26) Creatinine 1.8mg/dL (0.7-1.3) Estimated GFR (Cockcroft-Gault) 36.4 Glucose Level 171mg/dL (70-99) Calcium Level 8.5mg/dL (8.5-10.1) Test 02/01/17 11:17 Glucose (Fingerstick) 165mg/dL (70-99) Medications Current Medications Calcium Gluconate 1,000 mg 1X ONCE IVP Last administered on 01/29/17t 14:19; Start 01/29/17 at 13:45; Stop 01/29/17 at 13:46; Status DC Dextrose 25 gm 1X ONCE IV Last administered on 01/29/17 14:29; Start 01/29/17 at 13:45; Stop 01/29/17 at 13:46; Status DC Insulin Human Regular (Novolin R Vial) 10 unit 1X ONCE IV Last administered on 01/29/17 14:32; Start 01/29/17 at 13:45; Stop 01/29/17 at 13:46; Status DC Furosemide (Lasix) 40 mg 1X ONCE IVP Last administered on 01/29/17 14:33; Start 01/29/17 at 13:45; Stop 01/29/17 at 13:46; Status DC Oxycodone/ Acetaminophen (Percocet 5/325) 1 tab 1X ONCE PO Last administered on 01/29/17 14:18; Start 01/29/17 at 14:00; Stop 01/29/17 at 14:02; Status DC Ondansetron HCl (Zofran) 4 mg PRN Q8HRS PRN IV NAUSEA/VOMITING; Start 01/29/17 at 14:15; Stop 01/29/17 at 14:43; Status DC Fentanyl Citrate 50 mcg 50 mcg PRN Q2HR PRN IV PAIN Last administered on 11:04; Start 01/29/17 at 14:15; Stop 01/30/17 at 14:14; Status DC Sodium Chloride (Iv Sodium Chloride 0.9% 1000ml Bag) 1,000 ml @ 75 mls/hr [id number] IV Last administered on 01/29/17 22:15; Start 01/29/17 at 14:12; Stop at 14:11; Status DC Acetaminophen (Tylenol) 650 mg PRN Q4HRS PRN PO FEVER; Start 01/29/17 at 14:15; Stop 01/30/17 at 14:14; Status DC Ondansetron HCl (Zofran) 4 mg PRN Q6HRS PRN IV NAUSEA/VOMITING; Start 01/29/17 at 14:39 Alprazolam (Xanax) 0.5 mg PRN TID PRN PO nerves Last administered on 01/30/17 16:22; Start 01/29/17 at 14:45 Calcitriol (Rocaltrol) 0.25 mcg DAILY PO Last administered on 02/01/17 07:58; Start 01/30/17 at 09:00 Dorzolamide/ Timolol (Cosopt) 1 drop BID OU Last administered on 02/01/17 07:58 ; Start 01/29/17 at 21:00 Ferrous Sulfate (Feosol) 325 mg DAILY PO Last administered on 02/01/17 07:59; Start 01/30/17 at 09:00 Folic Acid (Folic Acid) 2 mg TID PO Last administered on 02/01/17 07:58; Start 01/29/17 at 15:30 Gemfibrozil (Lopid) 600 mg BIDBFRMEAL PO Last administered on 02/01/17 07:58; Start 01/29/17 at 16:30 Latanoprost (Xalatan) 1 drop QHS OU Last administered on 01/31/17 20:22; Start 01/29/17 at 21:00 Amylase/Lipase/ Protease (Zenpep 5,000) 4 cap DAILY PO Last administered on 02/01 07:58; Start 01/30/17 at 09:00 Metoprolol Tartrate (Lopressor) 50 mg DAILY PO Last administered on 02/01/17 07 :59; Start 01/30/17 at 09:00 Fish Oil (Fish Oil) 1,000 mg DAILY PO Last administered on 02/01/17 07:59; Start 01/30/17 at 09:00 Pregabalin (Lyrica) 75 mg BID PO Last administered on 02/01/17 07:59; Start 01/29/17 at 21:00 Ropinirole HCl (Requip) 1 mg HS PO Last administered on 01/31/17 20:19; Start 01/29/17 at 21:00 Sennosides (Senna) 8.6 mg BID PO Last administered on 02/01/17 07:59; Start 01/29/17 at 21:00 Spironolactone (Aldactone) 25 mg DAILY PO Last administered on 02/01/17 08:00; Start 01/30/17 at 09:00 Tamsulosin HCl (Flomax) 0.8 mg DAILY PO Last administered on 02/01/17 07:58; Start 01/30/17 at 09:00 Insulin Detemir (Levemir) 22 units QHS SQ ; Start 01/29/17 at 21:00; Stop at 11:22; Status DC Insulin Aspart (Novolog) 8 units TIDBFRMEAL SQ Last administered on 01/30/17 08 :48; Start 01/29/17 at 16:30; Stop 01/30/17 at 11:22; Status DC Pantoprazole Sodium (Protonix) 40 mg DAILYAC PO Last administered on 02/01/17 07:59; Start 01/30/17 at 07:30 Morphine Sulfate (Ms Contin) 30 mg BID PO Last administered on 02/01/17 07:59; Start 01/29/17 at 21:00 Phytonadione (Mephyton) 5 mg 1X ONCE PO ; Start 01/29/17 at 15:30; Stop 01/29/17 at 15:31; Status DC Insulin Aspart (Novolog) 0-9 UNITS TIDWMEALS SQ Last administered on 02/01/17 11:50; Start 01/29/17 at 17:00 Dextrose 12.5 gm 12.5 gm PRN Q15MIN PRN IV SEE COMMENTS Last administered on 18:40; Start 01/29/17 at 14:45 Sodium Chloride (Iv Sodium Chloride 0.9% 500ml Bag) 500 ml @ 500 mls/hr 1X ONCE IV Last administered on 01/29/17 15:15; Start 01/29/17 at 15:15; Stop at 16:14; Status DC Heparin Sodium (Porcine) 94236 unit 10,000 unit STK-MED ONCE .ROUTE ; Start 01/29 at 15:30; Stop 01/29/17 at 15:31; Status DC Heparin Sodium/ Sodium Chloride 500 ml @ As Directed STK-MED ONCE .ROUTE ; Start 01/29/17 at 15:30; Stop 01/29/17 at 15:31; Status DC Lidocaine/ Epinephrine (Xylocaine 1%-Epi 1:100,000) 20 ml STK-MED ONCE .ROUTE ; Start 01/29/17 at 15:31; Stop 01/29/17 at 15:32; Status DC Lidocaine/ Epinephrine (Xylocaine 1%-Epi 1:100,000) 4 ml 1X ONCE IJ Last administered on 3/4/17at 16:30; Start 01/29/17 at 16:00; Stop 01/29/17 at 16:01; Status DC Heparin Sodium/ Sodium Chloride 60 unit 1X ONCE IV Last administered on 16:30; Start 01/29/17 at 16:00; Stop 01/29/17 at 16:01; Status DC Heparin Sodium (Porcine) 2500 unit 2,500 unit 1X ONCE INT CAT Last administered on 01/29/17 16:30; Start 01/29/17 at 16:00; Stop 01/29/17 at 16:01; Status DC Sodium Chloride 1,000 ml @ 1,000 mls/hr Q1H PRN IV hypotension; Start 01/29/17 at 17:31; Stop 01/29/17 at 23:30; Status DC Albumin Human (Albuminar) 200 ml @ 200 mls/hr 1X PRN PRN IV Hypotension; Start 01/29/17 at 17:45; Stop 01/29/17 at 23:30; Status DC Sodium Chloride (Normal Saline Flush) 10 ml 1X PRN PRN IV AP 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; Start 01/29/17 at 17:45; Stop 01/29/17 at 23:30; Status DC Sodium Chloride (Normal Saline Flush) 10 ml 1X PRN PRN IV OBSTETRICS GYN 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; Start 01/29/17 at 17:45; Stop 01/29/17 at 23:30; Status DC Info (PHARMACY MONITORING -- do not chart) 1 each PRN DAILY PRN MC SEE COMMENTS ; Start 01/29/17 at 17:45 Info (PHARMACY MONITORING -- do not chart) 1 each PRN DAILY PRN MC SEE COMMENTS ; Start 01/29/17 at 17:45; Status UNV Aspirin (Ecotrin) 81 mg DAILY PO Last administered on 02/01/17 07:59; Start 01/30/17 at 09:00 Warfarin Sodium (Coumadin) 4 mg DAILY16 PO Last administered on 01/31/17 17:23 ; Start 01/29/17 at 19:00 Warfarin Sodium (Coumadin Per Physician) 1 each PRN DAILY PRN MC SEE COMMENTS Last administered on 01/31/17 17:25; Start 01/29/17 at 18:30 Insulin Aspart (Novolog) 5 units TIDBFRMEAL SQ Last administered on 02/01/17 11 :50; Start 01/30/17 at 11:30 Insulin Detemir 18 units 18 units QHS SQ Last administered on 01/31/17 21:31; Start 01/30/17 at 21:00 Sodium Chloride (Iv Sodium Chloride 0.9% 1000ml Bag) 1,000 ml @ 1,000 mls/hr Q1H PRN IV hypotension; Start 01/30/17 at 11:38; Stop 01/30/17 at 17:37; Status DC Sodium Chloride (Normal Saline Flush) 10 ml 1X PRN PRN IV AP 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; Start 01/30/17 at 11:45; Stop 01/31/17 at 11:44; Status DC Sodium Chloride (Normal Saline Flush) 10 ml 1X PRN PRN IV OBSTETRICS GYN 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; Start 01/30/17 at 11:45; Stop 01/31/17 at 11:44; Status DC Info (PHARMACY MONITORING -- do not chart) 1 each PRN DAILY PRN MC SEE COMMENTS ; Start 01/30/17 at 11:45; Status UNV Info (PHARMACY MONITORING -- do not chart) 1 each PRN DAILY PRN MC SEE COMMENTS ; Start 01/30/17 at 11:45; Status UNV Oxycodone/ Acetaminophen (Percocet 5/325) 1 tab PRN Q4HRS PRN PO PAIN Last administered on 01/30/17 21:50; Start 01/30/17 at 18:45 Oxycodone/ Acetaminophen (Percocet 10/325) 1 tab PRN Q4HRS PRN PO PAIN Last administered on 01/31/17 18:00; Start 01/30/17 at 18:45 Insulin Aspart (Novolog) 9 units 1X ONCE SQ Last administered on 01/30/17 21: 57; Start 01/30/17 at 21:30; Stop 01/30/17 at 21:31; Status DC Lidocaine/Sodium Bicarbonate (Buffered Lidocaine 1%) 3 ml 1X ONCE IJ Last administered on 01/31/17 12:15; Start 01/31/17 at 12:15; Stop 01/31/17 at 12:16; Status DC Heparin Sodium/ Sodium Chloride 60 unit 1X ONCE IV Last administered on 13:02; Start 01/31/17 at 12:15; Stop 01/31/17 at 12:16; Status DC Heparin Sodium (Porcine) 2,500 unit 1X ONCE INT CAT Last administered on 13:02; Start 01/31/17 at 12:15; Stop 01/31/17 at 12:16; Status DC Heparin Sodium (Porcine) 10,000 unit STK-MED ONCE .ROUTE ; Start 01/31/17 at 12: 18; Stop 01/31/17 at 12:19; Status DC Fentanyl Citrate (Fentanyl 2ml Vial) 100 mcg STK-MED ONCE .ROUTE ; Start at 12:29; Stop 01/31/17 at 12:30; Status DC Midazolam HCl (Versed) 2 mg STK-MED ONCE .ROUTE ; Start 01/31/17 at 12:29; Stop 01/31/17 at 12:30; Status DC Midazolam HCl (Versed) 2 mg 1X ONCE IV Last administered on 01/31/17 13:01; Start 01/31/17 at 13:00; Stop 01/31/17 at 13:01; Status DC Non-Formulary Medication 1 ea QID OS Last administered on 02/01/17 11:41; Start 01/31/17 at 14:00 Non-Formulary Medication 1 ea QHS OS Last administered on 01/31/17 20:25; Start 01/31/17 at 21:00 Active Scripts Active Lasix (Furosemide) 80 Mg Tablet 1 Tab PO DAILY Reported Oadgvy-Cnopy-Mvrhviu Eye Ointm (Chapiot/Polymyx B Sulf/Dexameth) 3.5 Gm Oint...g. 3.5 Gm OS QHS Durezol (Difluprednate) 5 Ml Drops 1 Drop OS QID Aspir 81 (Aspirin) 81 Mg Tablet.dr 1 Tab PO DAILY Senokot (Sennosides) 8.6 Mg Tablet 3 Tab PO BID Morphine Sulfate Er (Morphine Sulfate) 60 Mg Cap.er.pel 60 Mg PO Metoprolol Tartrate 50 Mg Tablet 0.5 Tab PO DAILY Latanoprost 2.5 Ml Drops 1 Drop EACHEYE QHS Gemfibrozil 600 Mg Tablet 1 Tab PO BID Dorzolamide-Timolol Eye Drops (Dorzolamide Hcl/Timolol Maleat) 10 Ml Drops 1 Drop RIGHTEYE BID Lyrica (Pregabalin) 75 Mg Capsule 1 Cap PO BID Alprazolam 0.5 Mg Tablet 1 Tab PO TID Warfarin Sodium 4 Mg Tablet 1 Tab PO DAILY Fish Oil 1,000 Mg Capsule ([place]-3 Fatty Acids/Fish Oil) 1 Each Capsule 4 Each PO DAILY Pancrelipase 5,000 Unit Cap (Lipase/Protease/Amylase) 1 Each Capsule.dr 4 Each PO Prilosec Otc (Omeprazole Magnesium) 20 Mg Tablet.dr 20 Mg PO DAILY Lyrica (Pregabalin) 25 Mg Capsule 50 Mg PO TID 30 Days Gemfibrozil 600 Mg Tablet 600 Mg PO BID Spironolactone 25 Mg Tablet 25 Mg PO DAILY Calcitriol 0.25 Mcg Capsule 0.25 Mcg PO DAILY Lantus (Insulin Glargine,Hum.rec.anlog) 100 Unit/1 Ml Vial 22 Unit SQ HS Humalog (Insulin Lispro) 100 Unit/1 Ml Vial 8 Unit SQ TID Folic Acid 1 Mg Tablet 2 Mg PO TID Ferosul (Ferrous Sulfate) 325 Mg Tablet 325 Mg PO Ropinirole Hcl 1 Mg Tablet 1 Mg PO HS Tamsulosin Hcl 0.4 Mg Cap.er.24h 0.8 Mg PO DAILY Travatan Z (Travoprost) 5 Ml Drops 5 Ml OP Vitals/I & O Vital Sign - Last 24 Hours 01/31/17 01/31/17 01/31/17 01/31/17 18:00 19:00 19:06 20:00 Temp 98.5 98.5 Pulse 70 Resp 20 B/P 131/64 Pulse Ox 91 O2 Delivery Room Air Room Air Room Air Room Air 01/31/17 01/31/17 02/01/17 02/01/17 20:20 23:00 03:00 06:45 Temp 98.6 97.9 96.6 98.6 97.9 96.6 Pulse 80 70 72 Resp 20 20 18 B/P 135/70 117/63 142/70 Pulse Ox 95 94 94 O2 Delivery Room Air Room Air Room Air Room Air 02/01/17 02/01/17 02/01/17 02/01/17 07:59 07:59 08:00 11:04 Temp 98.6 98.6 Pulse 72 69 Resp 14 B/P 142/70 142/70 Pulse Ox 94 O2 Delivery Room Air Room Air Room Air 02/01/17 12:11 O2 Delivery Room Air Intake and Output 01/31/17 01/31/17 02/01/17 15:00 23:00 07:00 Intake Total 700 ml 300 ml 200 ml Output Total 200 ml Balance 700 ml 100 ml 200 ml JAMES QUAN MD Feb 01, 2017 13:28
[2017-02-01] MEDS: OXYCODONE/APAP 10/325 TABLET. PO PRN (14:03)
[2017-02-01 15:00] VITALS: BP 117/49
[2017-02-01] MEDS: WARFARIN 4 MG TABLET. PO SCH (16:40)
--- NOTE | 2017-02-01 17:42 | PDOC ---
SUBJECTIVE ROS TIM/ CKD III/ Iv Remains somewhat confused CVS: no Orthopnea, no CP RESP: no SOB, no HANSEN GI: no Nausea, no Vomiting : n Dysuria, no Urgency OBJECTIVE Vital Signs Vital Signs Date Time Temp Pulse Resp B/P Pulse Ox O2 Delivery O2 Flow Rate FiO2 02/01/17 15:29 Room Air 02/01/17 15:00 97.9 78 16 117/49 96 97.9 I & 0 Intake and Output 02/01/17 07:00 Intake Total 1200 ml Output Total 200 ml Balance 1000 ml Intake Oral 1200 ml Output Urine Total 200 ml PHYSICAL EXAM Physical Exam GEN: Awake, Oriented x 1, In no distress EYES: Vision decreased, Conjunctiva Normal with some left prudence-orbital hmgh/ bruising EN: No EN Drainage, Mucous Membranes moist NECK: no JVD, min JVP, Supple, no Thyromegaly; thick neck CVS: S1S2, ? Murmur, No Gallop, No Rub,+2 Edema RESP: no Rales, no Rhonchi,no Acc. Muscle Use GI: BS + ve, NO Bruit, Non Tender, Non Distended; Obese : no CVA tenderness, no Suprapubic Tenderness - Good in place DIAGNOSIS/ASSESSMENT Assessment & Plan ARF: Suspect mostly due to CLARKE and urinary retention. Await URO eval. Current fluid and E-lyte status does not necessitate emergent need for dialysis. Will re-evaluate for dialysis in the am CKD III/ Iv in the past - watch for return to baseline CLARKE - defer to Dr Liao Edema - Unable to completely clear with PO diuretics alone due to worsening of Azotemia. If he contines to need HD - then we will challenge this AMS - could be related to Uremia but will need to r/o other causes too ANEMIA; Aranap as ordered, Transfuse as needed HTN: Current BP meds as reviewed. See orders for changes. Discussed Plan of Care with pt at bedside Problems: COMMENT/RELEVANT DATA Meds Current Medications Medications (Trade) Dose Ordered Sig/Tracy Start Time Stop Time Status Last Admin Dose Admin Acetaminophen (Tylenol) 650 mg PRN Q4HRS PRN 01/29/17 14:15 01/30/17 14:14 DC Albumin Human (Albuminar) 200 ml @ 200 mls/hr 1X PRN PRN 3/4/17 17:45 01/29/17 23:30 DC Alprazolam (Xanax) 0.5 mg PRN TID PRN 01/29/17 14:45 01/30/17 16:22 0.5 MG Amylase/Lipase/ Protease (Zenpep 5,000) 4 cap DAILY 01/30/17 09:00 02/01/17 07:58 4 CAP Aspirin (Ecotrin) 81 mg DAILY 01/30/17 09:00 02/01/17 07:59 81 MG Calcitriol (Rocaltrol) 0.25 mcg DAILY 01/30/17 09:00 02/01/17 07:58 0.25 MCG Calcium Gluconate 1,000 mg 1X ONCE 01/29/17 13:45 01/29/17 13:46 DC 01/29/17 14:19 1,000 MG Dextrose 25 gm 1X ONCE 01/29/17 13:45 01/29/17 13:46 DC 01/29/17 14:29 25 GM Dextrose 12.5 gm 12.5 gm PRN Q15MIN PRN 01/29/17 14:45 01/29/17 18:40 12.5 GM Dorzolamide/ Timolol (Cosopt) 1 drop BID 01/29/17 21:00 02/01/17 07:58 1 DROP Fentanyl Citrate (Fentanyl 2ml Vial) 100 mcg STK-MED ONCE 01/31/17 12:29 01/31/17 12:30 DC Ferrous Sulfate (Feosol) 325 mg DAILY 01/30/17 09:00 02/01/17 07:59 325 MG Fish Oil (Fish Oil) 1,000 mg DAILY 01/30/17 09:00 02/01/17 07:59 1,000 MG Folic Acid (Folic Acid) 2 mg TID 01/29/17 15:30 02/01/17 14:02 2 MG Furosemide (Lasix) 40 mg 1X ONCE 01/29/17 13:45 01/29/17 13:46 DC 01/29/17 14:33 40 MG Gemfibrozil (Lopid) 600 mg BIDBFRMEAL 01/29/17 16:30 02/01/17 16:40 600 MG Heparin Sodium (Porcine) 10,000 unit STK-MED ONCE 01/31/17 12:18 01/31/17 12:19 DC Heparin Sodium (Porcine) 2500 unit 2,500 unit 1X ONCE 01/29/17 16:00 01/29/17 16:01 DC 01/29/17 16:30 2,500 UNIT Heparin Sodium/ Sodium Chloride 60 unit 1X ONCE 01/31/17 12:15 01/31/17 12:16 DC 01/31/17 13:02 60 UNIT Info (PHARMACY MONITORING -- do not chart) 1 each PRN DAILY PRN 01/30/17 11:45 UNV Insulin Aspart (Novolog) 9 units 1X ONCE 01/30/17 21:30 01/30/17 21:31 DC 01/30/17 21:57 9 UNITS Insulin Detemir (Levemir) 22 units QHS 01/29/17 21:00 01/30/17 11:22 DC Insulin Detemir 18 units 18 units QHS 01/30/17 21:00 01/31/17 21:31 18 UNITS Insulin Human Regular (Novolin R Vial) 10 unit 1X ONCE 01/29/17 13:45 01/29/17 13:46 DC 01/29/17 14:32 10 UNIT Latanoprost (Xalatan) 1 drop QHS 01/29/17 21:00 01/31/17 20:22 1 DROP Lidocaine/ Epinephrine (Xylocaine 1%-Epi 1:100,000) 4 ml 1X ONCE 01/29/17 16:00 01/29/17 16:01 DC 01/29/17 16:30 4 ML Lidocaine/Sodium Bicarbonate (Buffered Lidocaine 1%) 3 ml 1X ONCE 01/31/17 12:15 01/31/17 12:16 DC 01/31/17 12:15 3 ML Metoprolol Tartrate (Lopressor) 50 mg DAILY 01/30/17 09:00 02/01/17 07:59 50 MG Midazolam HCl (Versed) 2 mg 1X ONCE 01/31/17 13:00 01/31/17 13:01 DC 01/31/17 13:01 1 MG Morphine Sulfate (Ms Contin) 30 mg BID 01/29/17 21:00 02/01/17 07:59 30 MG Non-Formulary Medication 1 ea QHS 01/31/17 21:00 01/31/17 20:25 1 EA Ondansetron HCl (Zofran) 4 mg PRN Q6HRS PRN 01/29/17 14:39 Oxycodone/ Acetaminophen (Percocet 10/325) 1 tab PRN Q4HRS PRN 01/30/17 18:45 02/01/17 14:03 1 TAB Oxycodone/ Acetaminophen (Percocet 5/325) 1 tab PRN Q4HRS PRN 01/30/17 18:45 01/30/17 21:50 1 TAB Pantoprazole Sodium (Protonix) 40 mg DAILYAC 01/30/17 07:30 02/01/17 07:59 40 MG Phytonadione (Mephyton) 5 mg 1X ONCE 01/29/17 15:30 01/29/17 15:31 DC Pregabalin (Lyrica) 75 mg BID 01/29/17 21:00 02/01/17 07:59 75 MG Ropinirole HCl (Requip) 1 mg HS 01/29/17 21:00 01/31/17 20:19 1 MG Sennosides (Senna) 8.6 mg BID 01/29/17 21:00 02/01/17 07:59 8.6 MG Sodium Chloride (Iv Sodium Chloride 0.9% 500ml Bag) 500 ml @ 500 mls/hr 1X ONCE 01/29/17 15:15 01/29/17 16:14 DC 01/29/17 15:15 500 MLS/HR Sodium Chloride (Iv Sodium Chloride 0.9% 1000ml Bag) 1,000 ml @ 1,000 mls/hr Q1H PRN 01/30/17 11:38 01/30/17 17:37 DC Sodium Chloride (Normal Saline Flush) 10 ml 1X PRN PRN 01/30/17 11:45 01/31/17 11:44 DC Spironolactone (Aldactone) 25 mg DAILY 01/30/17 09:00 02/01/17 08:00 25 MG Tamsulosin HCl (Flomax) 0.8 mg DAILY 01/30/17 09:00 02/01/17 07:58 0.8 MG Warfarin Sodium (Coumadin Per Physician) 1 each PRN DAILY PRN 01/29/17 18:30 02/01/17 14:01 1 EACH Warfarin Sodium (Coumadin) 4 mg DAILY16 01/29/17 19:00 02/01/17 16:40 4 MG Lab Laboratory Tests Test 01/31/17 21:12 02/01/17 03:45 02/01/17 07:07 02/01/17 11:17 Glucose (Fingerstick) 150mg/dL (70-99) 136mg/dL (70-99) 165mg/dL (70-99) White Blood Count 5.8x10^3/uL (4.0-11.0) Red Blood Count 2.70x10^6/uL (4.30-5.70) Hemoglobin 9.0g/dL (13.0-17.5) Hematocrit 25.9% (39.0-53.0) Mean Corpuscular Volume 96fL (79-100) Mean Corpuscular Hemoglobin 33pg (25-35) Mean Corpuscular Hemoglobin Concent 35g/dL (31-37) Red Cell Distribution Width 14.9% (11.5-14.5) Platelet Count 65x10^3/uL (140-400) Neutrophils (%) (Auto) 74% (31-73) Lymphocytes (%) (Auto) 14% (24-48) Monocytes (%) (Auto) 11% (0-9) Eosinophils (%) (Auto) 1% (0-3) Basophils (%) (Auto) 1% (0-3) Neutrophils # (Auto) 4.3x10^3uL (1.8-7.7) Lymphocytes # (Auto) 0.8x10^3/uL (1.0-4.8) Monocytes # (Auto) 0.6x10^3/uL (0.0-1.1) Eosinophils # (Auto) 0.0x10^3/uL (0.0-0.7) Basophils # (Auto) 0.0x10^3/uL (0.0-0.2) Prothrombin Time 29.1SEC (11.7-14.0) Prothromb Time International Ratio 2.9 (0.8-1.1) Sodium Level 136mmol/L (136-145) Potassium Level 4.5mmol/L (3.5-5.1) Chloride Level 99mmol/L (98-107) Carbon Dioxide Level 29mmol/L (21-32) Anion Gap 8 (6-14) Blood Urea Nitrogen 23mg/dL (8-26) Creatinine 1.8mg/dL (0.7-1.3) Estimated GFR (Cockcroft-Gault) 36.4 Glucose Level 171mg/dL (70-99) Calcium Level 8.5mg/dL (8.5-10.1) Test 02/01/17 16:24 Glucose (Fingerstick) 59mg/dL (70-99) RICHIE UPTON MD Feb 01, 2017 17:42
[2017-02-01 19:00] VITALS: BP 126/52
[2017-02-01] MEDS: INSULIN DETEMIR 300 UNITS/3 ML INSULN.PEN. SQ SCH (21:00)
[2017-02-01] MEDS ORDERED: DARBEPOETIN ALFA 60 MCG/0.3 ML DISP.SYRIN. SQ SCH (21:00)
[2017-02-01] MEDS: rOPINIRole 1 MG TABLET. PO SCH (21:22)
[2017-02-01] MEDS: LATANOPROST 0.005% OPHTH SOLUTION 2.5ML BOTTLE. OU SCH (21:26)
[2017-02-01] MEDS: DEXAMETHASONE OS SCH (21:28)
[2017-02-01] MEDS: NEOMYCIN OS SCH (21:28)
[2017-02-01] MEDS: [UNRECOGNIZED DRUG - OTHER] OS SCH (21:28)
[2017-02-01 23:00] VITALS: BP 107/59
[2017-02-02] VITALS (10 sets, daily range): BP systolic 93–152; BP diastolic 43–74
[2017-02-02 03:06] LABS: BILIRUBIN,URINE SMALL (NEG); GLUCOSE,URINE NEGATIVE (NEG); NITRITE,URINE NEGATIVE (NEG); PH,URINE 5.5; PROTEIN,URINE >=300 mg/dL (NEG-TRACE); UROBILINOGEN,URINE 0.2 mg/dL (0.2 mg/dL)
[2017-02-02 03:43] LABS: RBC,URINE TNTC /HPF (0-2)
[2017-02-02 03:44] LABS: BACTERIA,URINE MODERATE /HPF (0-FEW); SQUAMOUS EPITHELIAL CELL,UR MOD /LPF; WBC,URINE TNTC /HPF (0-4)
[2017-02-02] MEDS: INSULIN ASPART 300 UNITS/3 ML INSULN.PEN SQ SCH ×4 (07:30→17:00)
[2017-02-02] MEDS: SENNOSIDES 8.6 MG TABLET PO SCH ×2 (08:43→21:23)
[2017-02-02] MEDS: SPIRONOLACTONE 25 MG TABLET PO SCH (08:43)
[2017-02-02] MEDS: TAMSULOSIN 0.4 MG CAP.ER.24H. PO SCH (08:43)
[2017-02-02] MEDS: ASPIRIN ENTERIC COATED 81 MG TABLET.DR. PO SCH (08:43)
[2017-02-02] MEDS: GEMFIBROZIL 600 MG TABLET. PO SCH ×2 (08:43→17:29)
[2017-02-02] MEDS: FERROUS SULFATE 325 MG TABLET PO SCH (08:43)
[2017-02-02] MEDS: FOLIC ACID 1 MG TABLET PO SCH ×3 (08:43→21:23)
[2017-02-02] MEDS: OMEGA-3 FATTY ACIDS/FISH OIL 1,000 MG CAPSULE. PO SCH (08:45)
[2017-02-02] MEDS: METOPROLOL TART IMMED RELEASE 50 MG TABLET PO SCH (08:46)
[2017-02-02] MEDS: MORPHINE ER 30 MG TABLET.ER PO SCH (08:46)
[2017-02-02] MEDS: PREGABALIN 75 MG CAPSULE PO SCH ×2 (08:46→21:22)
[2017-02-02] MEDS: PANTOPRAZOLE 40 MG TABLET. PO SCH (08:46)
[2017-02-02] MEDS: CALCITRIOL 0.25 MCG CAPSULE PO SCH (08:46)
[2017-02-02] MEDS: DORZOLAMIDE/TIMOLOL 2%/0.5% OPHTH SOLUTION 10ML BOTTLE. OU SCH ×2 (08:48→21:24)
[2017-02-02] MEDS: LATANOPROST 0.005% OPHTH SOLUTION 2.5ML BOTTLE. OU SCH (08:49)
[2017-02-02] MEDS: DUREZOL OS SCH ×4 (08:50→21:25)
[2017-02-02] MEDS: NEOMYCIN OS SCH (08:51)
[2017-02-02] MEDS: [UNRECOGNIZED DRUG - OTHER] OS SCH (08:51)
[2017-02-02] MEDS: DEXAMETHASONE OS SCH (08:51)
[2017-02-02] MEDS: LIPASE/PROTEAS/AMYLASE 5/17/27 CAPSULE.DR. PO SCH (09:40)
--- NOTE | 2017-02-02 10:19 | PDOC ---
PROGRESS NOTES Subjective Subjective No new complaints. Objective Objective Vital Signs Date Time Temp Pulse Resp B/P Pulse Ox O2 Delivery O2 Flow Rate FiO2 02/02/17 08:46 Nasal Cannula 2.0 02/02/17 08:46 70 107/52 02/02/17 07:00 97.4 20 97.4 02/02/17 07:00 95 Intake and Output 02/02/17 07:00 Intake Total 360 ml Output Total 210 ml Balance 150 ml Intake Oral 360 ml Output Urine Total 210 ml Physical Exam Physical Exam He is supine in bed and getting up with physical therapy. Assessment Assessment Problems Medical Problems: (1) Acute hyperkalemia Status: Acute (2) Acute renal failure Status: Acute Plan Plan of Longterm when medically stable with home health follow up. Comment Review of Relevant I have reviewed the following items sarah (where applicable) has been applied. Labs Laboratory Tests Test 01/31/17 11:19 01/31/17 17:21 01/31/17 21:12 02/01/17 03:45 Glucose (Fingerstick) 134mg/dL (70-99) 94mg/dL (70-99) 150mg/dL (70-99) White Blood Count 5.8x10^3/uL (4.0-11.0) Red Blood Count 2.70x10^6/uL (4.30-5.70) Hemoglobin 9.0g/dL (13.0-17.5) Hematocrit 25.9% (39.0-53.0) Mean Corpuscular Volume 96fL (79-100) Mean Corpuscular Hemoglobin 33pg (25-35) Mean Corpuscular Hemoglobin Concent 35g/dL (31-37) Red Cell Distribution Width 14.9% (11.5-14.5) Platelet Count 65x10^3/uL (140-400) Neutrophils (%) (Auto) 74% (31-73) Lymphocytes (%) (Auto) 14% (24-48) Monocytes (%) (Auto) 11% (0-9) Eosinophils (%) (Auto) 1% (0-3) Basophils (%) (Auto) 1% (0-3) Neutrophils # (Auto) 4.3x10^3uL (1.8-7.7) Lymphocytes # (Auto) 0.8x10^3/uL (1.0-4.8) Monocytes # (Auto) 0.6x10^3/uL (0.0-1.1) Eosinophils # (Auto) 0.0x10^3/uL (0.0-0.7) Basophils # (Auto) 0.0x10^3/uL (0.0-0.2) Prothrombin Time 29.1SEC (11.7-14.0) Prothromb Time International Ratio 2.9 (0.8-1.1) Sodium Level 136mmol/L (136-145) Potassium Level 4.5mmol/L (3.5-5.1) Chloride Level 99mmol/L (98-107) Carbon Dioxide Level 29mmol/L (21-32) Anion Gap 8 (6-14) Blood Urea Nitrogen 23mg/dL (8-26) Creatinine 1.8mg/dL (0.7-1.3) Estimated GFR (Cockcroft-Gault) 36.4 Glucose Level 171mg/dL (70-99) Calcium Level 8.5mg/dL (8.5-10.1) Test 02/01/17 07:07 02/01/17 11:17 02/01/17 16:24 02/01/17 18:25 Glucose (Fingerstick) 136mg/dL (70-99) 165mg/dL (70-99) 59mg/dL (70-99) Ammonia 11mcmol/L (11-34) Test 02/01/17 21:18 02/02/17 01:30 02/02/17 06:57 Glucose (Fingerstick) 87mg/dL (70-99) 95mg/dL (70-99) Urine Collection Type Unknown Urine Color Alison Urine Clarity Turbid Urine pH 5.5 Urine Specific [place] 1.020 Urine Protein >=300mg/dL (NEG-TRACE) Urine Glucose (UA) Negativemg/dL (NEG) Urine Ketones (Stick) Negativemg/dL (NEG) Urine Blood Large (NEG) Urine Nitrite Negative (NEG) Urine Bilirubin Small (NEG) Urine Urobilinogen Dipstick 0.2mg/dL (0.2 mg/dL) Urine Leukocyte Esterase Large (NEG) Urine RBC Tntc/HPF (0-2) Urine WBC Tntc/HPF (0-4) Urine Squamous Epithelial Cells Mod/LPF Urine Amorphous Sediment Present/HPF Urine Bacteria Moderate/HPF (0-FEW) Urine Hyaline Casts Moderate/HPF Laboratory Tests Test 02/01/17 11:17 02/01/17 16:24 02/01/17 18:25 02/01/17 21:18 Glucose (Fingerstick) 165mg/dL (70-99) 59mg/dL (70-99) 87mg/dL (70-99) Ammonia 11mcmol/L (11-34) Test 02/02/17 01:30 02/02/17 06:57 Urine Collection Type Unknown Urine Color Alison Urine Clarity Turbid Urine pH 5.5 Urine Specific [place] 1.020 Urine Protein >=300mg/dL (NEG-TRACE) Urine Glucose (UA) Negativemg/dL (NEG) Urine Ketones (Stick) Negativemg/dL (NEG) Urine Blood Large (NEG) Urine Nitrite Negative (NEG) Urine Bilirubin Small (NEG) Urine Urobilinogen Dipstick 0.2mg/dL (0.2 mg/dL) Urine Leukocyte Esterase Large (NEG) Urine RBC Tntc/HPF (0-2) Urine WBC Tntc/HPF (0-4) Urine Squamous Epithelial Cells Mod/LPF Urine Amorphous Sediment Present/HPF Urine Bacteria Moderate/HPF (0-FEW) Urine Hyaline Casts Moderate/HPF Glucose (Fingerstick) 95mg/dL (70-99) Medications Current Medications Calcium Gluconate 1,000 mg 1X ONCE IVP Last administered on 01/29/17 14:19; Start 01/29/17 at 13:45; Stop 01/29/17 at 13:46; Status DC Dextrose 25 gm 1X ONCE IV Last administered on 01/29/17 14:29; Start 01/29/17 at 13:45; Stop 01/29/17 at 13:46; Status DC Insulin Human Regular (Novolin R Vial) 10 unit 1X ONCE IV Last administered on 01/29/17 14:32; Start 01/29/17 at 13:45; Stop 01/29/17 at 13:46; Status DC Furosemide (Lasix) 40 mg 1X ONCE IVP Last administered on 01/29/17 14:33; Start 01/29/17 at 13:45; Stop 01/29/17 at 13:46; Status DC Oxycodone/ Acetaminophen (Percocet 5/325) 1 tab 1X ONCE PO Last administered on 01/29/17 14:18; Start 01/29/17 at 14:00; Stop 01/29/17 at 14:02; Status DC Ondansetron HCl (Zofran) 4 mg PRN Q8HRS PRN IV NAUSEA/VOMITING; Start 01/29/17 at 14:15; Stop 01/29/17 at 14:43; Status DC Fentanyl Citrate 50 mcg 50 mcg PRN Q2HR PRN IV PAIN Last administered on 11:04; Start 01/29/17 at 14:15; Stop 01/30/17 at 14:14; Status DC Sodium Chloride (Iv Sodium Chloride 0.9% 1000ml Bag) 1,000 ml @ 75 mls/hr [id number] IV Last administered on 01/29/17 22:15; Start 01/29/17 at 14:12; Stop at 14:11; Status DC Acetaminophen (Tylenol) 650 mg PRN Q4HRS PRN PO FEVER; Start 01/29/17 at 14:15; Stop 01/30/17 at 14:14; Status DC Ondansetron HCl (Zofran) 4 mg PRN Q6HRS PRN IV NAUSEA/VOMITING; Start 01/29/17 at 14:39 Alprazolam (Xanax) 0.5 mg PRN TID PRN PO nerves Last administered on 01/30/17 16:22; Start 01/29/17 at 14:45 Calcitriol (Rocaltrol) 0.25 mcg DAILY PO Last administered on 02/02/17 08:46; Start 01/30/17 at 09:00 Dorzolamide/ Timolol (Cosopt) 1 drop BID OU Last administered on 02/02/17 08:48 ; Start 01/29/17 at 21:00 Ferrous Sulfate (Feosol) 325 mg DAILY PO Last administered on 02/02/17 08:43; Start 01/30/17 at 09:00 Folic Acid (Folic Acid) 2 mg TID PO Last administered on 02/02/17 08:43; Start 01/29/17 at 15:30 Gemfibrozil (Lopid) 600 mg BIDBFRMEAL PO Last administered on 02/02/17 08:43; Start 01/29/17 at 16:30 Latanoprost (Xalatan) 1 drop QHS OU Last administered on 02/02/17 08:49; Start 01/29/17 at 21:00 Amylase/Lipase/ Protease (Zenpep 5,000) 4 cap DAILY PO Last administered on 02/02 09:40; Start 01/30/17 at 09:00 Metoprolol Tartrate (Lopressor) 50 mg DAILY PO Last administered on 02/02/17 08 :46; Start 01/30/17 at 09:00 Fish Oil (Fish Oil) 1,000 mg DAILY PO Last administered on 02/02/17 08:45; Start 01/30/17 at 09:00 Pregabalin (Lyrica) 75 mg BID PO Last administered on 02/02/17 08:46; Start 01/29/17 at 21:00 Ropinirole HCl (Requip) 1 mg HS PO Last administered on 02/01/17 21:22; Start 01/29/17 at 21:00 Sennosides (Senna) 8.6 mg BID PO Last administered on 02/02/17 08:43; Start 01/29/17 at 21:00 Spironolactone (Aldactone) 25 mg DAILY PO Last administered on 02/02/17 08:43; Start 01/30/17 at 09:00 Tamsulosin HCl (Flomax) 0.8 mg DAILY PO Last administered on 02/02/17 08:43; Start 01/30/17 at 09:00 Insulin Detemir (Levemir) 22 units QHS SQ ; Start 01/29/17 at 21:00; Stop at 11:22; Status DC Insulin Aspart (Novolog) 8 units TIDBFRMEAL SQ Last administered on 01/30/17 08 :48; Start 01/29/17 at 16:30; Stop 01/30/17 at 11:22; Status DC Pantoprazole Sodium (Protonix) 40 mg DAILYAC PO Last administered on 02/02/17 08:46; Start 01/30/17 at 07:30 Morphine Sulfate (Ms Contin) 30 mg BID PO Last administered on 02/02/17 08:46; Start 01/29/17 at 21:00 Phytonadione (Mephyton) 5 mg 1X ONCE PO ; Start 01/29/17 at 15:30; Stop 01/29/17 at 15:31; Status DC Insulin Aspart (Novolog) 0-9 UNITS TIDWMEALS SQ Last administered on 02/01/17 11:50; Start 01/29/17 at 17:00 Dextrose 12.5 gm 12.5 gm PRN Q15MIN PRN IV SEE COMMENTS Last administered on 18:40; Start 01/29/17 at 14:45 Sodium Chloride (Iv Sodium Chloride 0.9% 500ml Bag) 500 ml @ 500 mls/hr 1X ONCE IV Last administered on 01/29/17 15:15; Start 01/29/17 at 15:15; Stop at 16:14; Status DC Heparin Sodium (Porcine) 04519 unit 10,000 unit STK-MED ONCE .ROUTE ; Start 01/29 at 15:30; Stop 01/29/17 at 15:31; Status DC Heparin Sodium/ Sodium Chloride 500 ml @ As Directed STK-MED ONCE .ROUTE ; Start 01/29/17 at 15:30; Stop 01/29/17 at 15:31; Status DC Lidocaine/ Epinephrine (Xylocaine 1%-Epi 1:100,000) 20 ml STK-MED ONCE .ROUTE ; Start 01/29/17 at 15:31; Stop 01/29/17 at 15:32; Status DC Lidocaine/ Epinephrine (Xylocaine 1%-Epi 1:100,000) 4 ml 1X ONCE IJ Last administered on 01/29/17 16:30; Start 01/29/17 at 16:00; Stop 01/29/17 at 16:01; Status DC Heparin Sodium/ Sodium Chloride 60 unit 1X ONCE IV Last administered on 16:30; Start 01/29/17 at 16:00; Stop 01/29/17 at 16:01; Status DC Heparin Sodium (Porcine) 2500 unit 2,500 unit 1X ONCE INT CAT Last administered on 01/29/17 16:30; Start 01/29/17 at 16:00; Stop 01/29/17 at 16:01; Status DC Sodium Chloride 1,000 ml @ 1,000 mls/hr Q1H PRN IV hypotension; Start 01/29/17 at 17:31; Stop 01/29/17 at 23:30; Status DC Albumin Human (Albuminar) 200 ml @ 200 mls/hr 1X PRN PRN IV Hypotension; Start 01/29/17 at 17:45; Stop 01/29/17 at 23:30; Status DC Sodium Chloride (Normal Saline Flush) 10 ml 1X PRN PRN IV AP 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; Start 01/29/17 at 17:45; Stop 01/29/17 at 23:30; Status DC Sodium Chloride (Normal Saline Flush) 10 ml 1X PRN PRN IV PHOTONICS ENGINEERING TECHNOLOGIST 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; Start 01/29/17 at 17:45; Stop 01/29/17 at 23:30; Status DC Info (PHARMACY MONITORING -- do not chart) 1 each PRN DAILY PRN MC SEE COMMENTS ; Start 01/29/17 at 17:45 Info (PHARMACY MONITORING -- do not chart) 1 each PRN DAILY PRN MC SEE COMMENTS ; Start 01/29/17 at 17:45; Status UNV Aspirin (Ecotrin) 81 mg DAILY PO Last administered on 02/02/17 08:43; Start 01/30/17 at 09:00 Warfarin Sodium (Coumadin) 4 mg DAILY16 PO Last administered on 02/01/17 16:40 ; Start 01/29/17 at 19:00 Warfarin Sodium (Coumadin Per Physician) 1 each PRN DAILY PRN MC SEE COMMENTS Last administered on 02/01/17 14:01; Start 01/29/17 at 18:30 Insulin Aspart (Novolog) 5 units TIDBFRMEAL SQ Last administered on 02/01/17 11 :50; Start 01/30/17 at 11:30 Insulin Detemir 18 units 18 units QHS SQ Last administered on 01/31/17 21:31; Start 01/30/17 at 21:00 Sodium Chloride (Iv Sodium Chloride 0.9% 1000ml Bag) 1,000 ml @ 1,000 mls/hr Q1H PRN IV hypotension; Start 01/30/17 at 11:38; Stop 01/30/17 at 17:37; Status DC Sodium Chloride (Normal Saline Flush) 10 ml 1X PRN PRN IV AP 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; Start 01/30/17 at 11:45; Stop 01/31/17 at 11:44; Status DC Sodium Chloride (Normal Saline Flush) 10 ml 1X PRN PRN IV PHOTONICS ENGINEERING TECHNOLOGIST 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; Start 01/30/17 at 11:45; Stop 01/31/17 at 11:44; Status DC Info (PHARMACY MONITORING -- do not chart) 1 each PRN DAILY PRN MC SEE COMMENTS ; Start 01/30/17 at 11:45; Status UNV Info (PHARMACY MONITORING -- do not chart) 1 each PRN DAILY PRN MC SEE COMMENTS ; Start 01/30/17 at 11:45; Status UNV Oxycodone/ Acetaminophen (Percocet 5/325) 1 tab PRN Q4HRS PRN PO PAIN Last administered on 01/30/17 21:50; Start 01/30/17 at 18:45 Oxycodone/ Acetaminophen (Percocet 10/325) 1 tab PRN Q4HRS PRN PO PAIN Last administered on 02/01/17 14:03; Start 01/30/17 at 18:45 Insulin Aspart (Novolog) 9 units 1X ONCE SQ Last administered on 01/30/17 21: 57; Start 01/30/17 at 21:30; Stop 01/30/17 at 21:31; Status DC Lidocaine/Sodium Bicarbonate (Buffered Lidocaine 1%) 3 ml 1X ONCE IJ Last administered on 01/31/17 12:15; Start 01/31/17 at 12:15; Stop 01/31/17 at 12:16; Status DC Heparin Sodium/ Sodium Chloride 60 unit 1X ONCE IV Last administered on 13:02; Start 01/31/17 at 12:15; Stop 01/31/17 at 12:16; Status DC Heparin Sodium (Porcine) 2,500 unit 1X ONCE INT CAT Last administered on 13:02; Start 01/31/17 at 12:15; Stop 01/31/17 at 12:16; Status DC Heparin Sodium (Porcine) 10,000 unit STK-MED ONCE .ROUTE ; Start 01/31/17 at 12: 18; Stop 01/31/17 at 12:19; Status DC Fentanyl Citrate (Fentanyl 2ml Vial) 100 mcg STK-MED ONCE .ROUTE ; Start at 12:29; Stop 01/31/17 at 12:30; Status DC Midazolam HCl (Versed) 2 mg STK-MED ONCE .ROUTE ; Start 01/31/17 at 12:29; Stop 01/31/17 at 12:30; Status DC Midazolam HCl (Versed) 2 mg 1X ONCE IV Last administered on 01/31/17 13:01; Start 01/31/17 at 13:00; Stop 01/31/17 at 13:01; Status DC Non-Formulary Medication 1 ea QID OS Last administered on 02/02/17 08:50; Start 01/31/17 at 14:00 Non-Formulary Medication 1 ea QHS OS Last administered on 02/02/17 08:51; Start 01/31/17 at 21:00 Darbepoetin Joshua (Aranesp) 60 mcg WEEKLYHS SQ Last administered on 02/01/17 21: 25; Start 02/01/17 at 21:00 Active Scripts Active Lasix (Furosemide) 80 Mg Tablet 1 Tab PO DAILY Reported Ijerjm-Txmfd-Pngnalu Eye Ointm ([place]/Polymyx B Sulf/Dexameth) 3.5 Gm Oint...g. 3.5 Gm OS QHS Durezol (Difluprednate) 5 Ml Drops 1 Drop OS QID Aspir 81 (Aspirin) 81 Mg Tablet. 1 Tab PO DAILY Senokot (Sennosides) 8.6 Mg Tablet 3 Tab PO BID Morphine Sulfate Er (Morphine Sulfate) 60 Mg Cap.er.pel 60 Mg PO Metoprolol Tartrate 50 Mg Tablet 0.5 Tab PO DAILY Latanoprost 2.5 Ml Drops 1 Drop EACHEYE QHS Gemfibrozil 600 Mg Tablet 1 Tab PO BID Dorzolamide-Timolol Eye Drops (Dorzolamide Hcl/Timolol Maleat) 10 Ml Drops 1 Drop RIGHTEYE BID Lyrica (Pregabalin) 75 Mg Capsule 1 Cap PO BID Alprazolam 0.5 Mg Tablet 1 Tab PO TID Warfarin Sodium 4 Mg Tablet 1 Tab PO DAILY Fish Oil 1,000 Mg Capsule ([place]-3 Fatty Acids/Fish Oil) 1 Each Capsule 4 Each PO DAILY Pancrelipase 5,000 Unit Cap (Lipase/Protease/Amylase) 1 Each Capsule. 4 Each PO Prilosec Otc (Omeprazole Magnesium) 20 Mg Tablet. 20 Mg PO DAILY Lyrica (Pregabalin) 25 Mg Capsule 50 Mg PO TID 30 Days Gemfibrozil 600 Mg Tablet 600 Mg PO BID Spironolactone 25 Mg Tablet 25 Mg PO DAILY Calcitriol 0.25 Mcg Capsule 0.25 Mcg PO DAILY Lantus (Insulin Glargine,Hum.rec.anlog) 100 Unit/1 Ml Vial 22 Unit SQ HS Humalog (Insulin Lispro) 100 Unit/1 Ml Vial 8 Unit SQ TID Folic Acid 1 Mg Tablet 2 Mg PO TID Ferosul (Ferrous Sulfate) 325 Mg Tablet 325 Mg PO Ropinirole Hcl 1 Mg Tablet 1 Mg PO HS Tamsulosin Hcl 0.4 Mg Cap.er.24h 0.8 Mg PO DAILY Travatan Z (Travoprost) 5 Ml Drops 5 Ml OP Vitals/I & O Vital Sign - Last 24 Hours 02/01/17 02/01/17 02/01/17 02/01/17 11:04 12:11 14:03 15:00 Temp 98.6 97.9 98.6 97.9 Pulse 69 78 Resp 14 16 B/P 142/70 117/49 Pulse Ox 94 96 O2 Delivery Room Air Room Air Room Air Room Air 02/01/17 02/01/17 02/01/17 02/01/17 15:29 19:00 20:00 21:22 Temp 97.7 97.7 Pulse 69 Resp 20 B/P 126/52 Pulse Ox 97 O2 Delivery Room Air Room Air Room Air Room Air 02/01/17 02/02/17 02/02/17 02/02/17 23:00 03:00 07:00 07:00 Temp 98.6 98.3 97.4 98.6 98.3 97.4 Pulse 70 72 70 Resp 20 20 20 B/P 107/59 112/74 107/52 Pulse Ox 96 94 95 O2 Delivery Room Air Room Air Nasal Cannula Room Air O2 Flow Rate 2.0 95.0 02/02/17 02/02/17 08:46 08:46 Pulse 70 B/P 107/52 O2 Delivery Nasal Cannula O2 Flow Rate 2.0 Intake and Output 02/01/17 02/01/17 02/02/17 15:00 23:00 07:00 Intake Total 360 ml Output Total 150 ml 60 ml Balance 210 ml -60 ml CORBIN CHATMAN MD Feb 02, 2017 10:19
[2017-02-02 10:57] LABS: PROTHROMBIN TIME PATIENT 40.2 SEC (11.7-14.0)
[2017-02-02 11:05] LABS: CALCIUM 8.3 mg/dL (8.5-10.1); CREATININE 3.4 mg/dL (0.7-1.3); GFR 17.5; POTASSIUM 5.3 mmol/L (3.5-5.1)
--- NOTE | 2017-02-02 11:19 | PDOC ---
SUBJECTIVE ROS TIM/ ATN Still remains somewhat confused and drowsy CVS: no Orthopnea, no CP RESP: no SOB, min HANSEN GI: no Nausea, no Vomiting : no Dysuria, no Urgency - ash in palce OBJECTIVE Vital Signs Vital Signs Date Time Temp Pulse Resp B/P Pulse Ox O2 Delivery O2 Flow Rate FiO2 02/02/17 08:46 Nasal Cannula 2.0 02/02/17 08:46 70 107/52 02/02/17 07:00 97.4 20 97.4 02/02/17 07:00 95 I & 0 Intake and Output 02/02/17 07:00 Intake Total 360 ml Output Total 210 ml Balance 150 ml Intake Oral 360 ml Output Urine Total 210 ml PHYSICAL EXAM Physical Exam GEN: Awake, Oriented x 1, In no distress EYES: Vision decreased, Conjunctiva Normal with some left prudence-orbital hmgh/ bruising EN: No EN Drainage, Mucous Membranes moist NECK: no JVD, min JVP, Supple, no Thyromegaly; thick neck CVS: S1S2, ? Murmur, No Gallop, No Rub,+2 Edema kumar thigh area RESP: no Rales, no Rhonchi,no Acc. Muscle Use GI: BS + ve, NO Bruit, Non Tender, Non Distended; Obese : no CVA tenderness, no Suprapubic Tenderness - Ash in place DIAGNOSIS/ASSESSMENT ARF: cannot r/o ATN now with Oliguria ensuing Dialysis as below F 180 NR 3.5 Hrs 2 K 2.5 Ca 140 Na 30 HC03 Qb 350 + Qd 500+ Heparin 0 Units Uf 2-3 Kgs or to dry weight as tolerated May give 25-50 gms of 25% Albumin if needed to maintain Hemodynamic stability Treatment plan reviewed and discussed with geospatial program management officer Confusion - Not sure if this is UTI related or Uremia - HD later today CKD III/ Iv in the past - May be best served with ELECTRONIC DATA INTERCHANGE SPECIALIST for Fluid management and CLARKE - defer to Dr Liao re timing of Ash removal Oliguria - ? ATN - hold aldactone ^K - D/c Aldactone and reval - HD later today Edema - Unable to completely clear with PO diuretics alone due to worsening of Azotemia. If he contines to need HD - then we will challenge this AMS - could be related to Uremia but will need to r/o other causes too ANEMIA; Aranesp as ordered, Transfuse as needed HTN: Current BP meds as reviewed. See orders for changes. Discussed Plan of Care with pt and at bedside COMMENT/RELEVANT DATA Meds Current Medications Medications (Trade) Dose Ordered Sig/Tracy Start Time Stop Time Status Last Admin Dose Admin Acetaminophen (Tylenol) 650 mg PRN Q4HRS PRN 01/29/17 14:15 01/30/17 14:14 DC Albumin Human (Albuminar) 200 ml @ 200 mls/hr 1X PRN PRN 01/29/17 17:45 01/29/17 23:30 DC Alprazolam (Xanax) 0.5 mg PRN TID PRN 01/29/17 14:45 01/30/17 16:22 0.5 MG Amylase/Lipase/ Protease (Zenpep 5,000) 4 cap DAILY 01/30/17 09:00 02/02/17 09:40 4 CAP Aspirin (Ecotrin) 81 mg DAILY 01/30/17 09:00 02/02/17 08:43 81 MG Calcitriol (Rocaltrol) 0.25 mcg DAILY 01/30/17 09:00 02/02/17 08:46 0.25 MCG Calcium Gluconate 1,000 mg 1X ONCE 01/29/17 13:45 01/29/17 13:46 DC 01/29/17 14:19 1,000 MG Darbepoetin Joshua (Aranesp) 60 mcg WEEKLYHS 02/01/17 21:00 02/01/17 21:25 60 MCG Dextrose 25 gm 1X ONCE 01/29/17 13:45 01/29/17 13:46 DC 01/29/17 14:29 25 GM Dextrose 12.5 gm 12.5 gm PRN Q15MIN PRN 01/29/17 14:45 01/29/17 18:40 12.5 GM Dorzolamide/ Timolol (Cosopt) 1 drop BID 01/29/17 21:00 02/02/17 08:48 1 DROP Fentanyl Citrate (Fentanyl 2ml Vial) 100 mcg STK-MED ONCE 01/31/17 12:29 01/31/17 12:30 DC Ferrous Sulfate (Feosol) 325 mg DAILY 01/30/17 09:00 02/02/17 08:43 325 MG Fish Oil (Fish Oil) 1,000 mg DAILY 01/30/17 09:00 02/02/17 08:45 1,000 MG Folic Acid (Folic Acid) 2 mg TID 01/29/17 15:30 02/02/17 08:43 2 MG Furosemide (Lasix) 40 mg 1X ONCE 01/29/17 13:45 01/29/17 13:46 DC 01/29/17 14:33 40 MG Gemfibrozil (Lopid) 600 mg BIDBFRMEAL 01/29/17 16:30 02/02/17 08:43 600 MG Heparin Sodium (Porcine) 10,000 unit STK-MED ONCE 01/31/17 12:18 01/31/17 12:19 DC Heparin Sodium (Porcine) 2500 unit 2,500 unit 1X ONCE 01/29/17 16:00 01/29/17 16:01 DC 01/29/17 16:30 2,500 UNIT Heparin Sodium/ Sodium Chloride 60 unit 1X ONCE 01/31/17 12:15 01/31/17 12:16 DC 01/31/17 13:02 60 UNIT Info (PHARMACY MONITORING -- do not chart) 1 each PRN DAILY PRN 01/30/17 11:45 UNV Insulin Aspart (Novolog) 9 units 1X ONCE 01/30/17 21:30 01/30/17 21:31 DC 01/30/17 21:57 9 UNITS Insulin Detemir (Levemir) 10 units QHS 02/02/17 21:00 Insulin Detemir 18 units 18 units QHS 01/30/17 21:00 02/02/17 11:01 DC 01/31/17 21:31 18 UNITS Insulin Human Regular (Novolin R Vial) 10 unit 1X ONCE 01/29/17 13:45 01/29/17 13:46 DC 01/29/17 14:32 10 UNIT Latanoprost (Xalatan) 1 drop QHS 01/29/17 21:00 02/02/17 08:49 1 DROP Lidocaine/ Epinephrine (Xylocaine 1%-Epi 1:100,000) 4 ml 1X ONCE 01/29/17 16:00 01/29/17 16:01 DC 01/29/17 16:30 4 ML Lidocaine/Sodium Bicarbonate (Buffered Lidocaine 1%) 3 ml 1X ONCE 01/31/17 12:15 01/31/17 12:16 DC 01/31/17 12:15 3 ML Metoprolol Tartrate (Lopressor) 50 mg DAILY 01/30/17 09:00 02/02/17 08:46 50 MG Midazolam HCl (Versed) 2 mg 1X ONCE 01/31/17 13:00 01/31/17 13:01 DC 01/31/17 13:01 1 MG Morphine Sulfate (Ms Contin) 30 mg BID 01/29/17 21:00 02/02/17 08:46 30 MG Non-Formulary Medication 1 ea QHS 01/31/17 21:00 02/02/17 08:51 1 EA Ondansetron HCl (Zofran) 4 mg PRN Q6HRS PRN 01/29/17 14:39 Oxycodone/ Acetaminophen (Percocet 10/325) 1 tab PRN Q4HRS PRN 01/30/17 18:45 02/01/17 14:03 1 TAB Oxycodone/ Acetaminophen (Percocet 5/325) 1 tab PRN Q4HRS PRN 01/30/17 18:45 01/30/17 21:50 1 TAB Pantoprazole Sodium (Protonix) 40 mg DAILYAC 01/30/17 07:30 02/02/17 08:46 40 MG Phytonadione (Mephyton) 5 mg 1X ONCE 01/29/17 15:30 01/29/17 15:31 DC Pregabalin (Lyrica) 75 mg BID 01/29/17 21:00 02/02/17 08:46 75 MG Ropinirole HCl (Requip) 1 mg HS 01/29/17 21:00 02/01/17 21:22 1 MG Sennosides (Senna) 8.6 mg BID 01/29/17 21:00 02/02/17 08:43 8.6 MG Sodium Chloride (Iv Sodium Chloride 0.9% 500ml Bag) 500 ml @ 500 mls/hr 1X ONCE 01/29/17 15:15 01/29/17 16:14 DC 01/29/17 15:15 500 MLS/HR Sodium Chloride (Iv Sodium Chloride 0.9% 1000ml Bag) 1,000 ml @ 1,000 mls/hr Q1H PRN 01/30/17 11:38 01/30/17 17:37 DC Sodium Chloride (Normal Saline Flush) 10 ml 1X PRN PRN 01/30/17 11:45 01/31/17 11:44 DC Spironolactone (Aldactone) 25 mg DAILY 01/30/17 09:00 02/02/17 08:43 25 MG Tamsulosin HCl (Flomax) 0.8 mg DAILY 01/30/17 09:00 02/02/17 08:43 0.8 MG Warfarin Sodium (Coumadin Per Physician) 1 each PRN DAILY PRN 01/29/17 18:30 02/01/17 14:01 1 EACH Warfarin Sodium (Coumadin) 4 mg DAILY16 01/29/17 19:00 02/01/17 16:40 4 MG Lab Laboratory Tests Test 02/01/17 11:17 02/01/17 16:24 02/01/17 18:25 02/01/17 21:18 Glucose (Fingerstick) 165mg/dL (70-99) 59mg/dL (70-99) 87mg/dL (70-99) Ammonia 11mcmol/L (11-34) Test 02/02/17 01:30 02/02/17 06:57 02/02/17 10:15 02/02/17 10:45 Urine Collection Type Unknown Urine Color Alison Urine Clarity Turbid Urine pH 5.5 Urine Specific [place] 1.020 Urine Protein >=300mg/dL (NEG-TRACE) Urine Glucose (UA) Negativemg/dL (NEG) Urine Ketones (Stick) Negativemg/dL (NEG) Urine Blood Large (NEG) Urine Nitrite Negative (NEG) Urine Bilirubin Small (NEG) Urine Urobilinogen Dipstick 0.2mg/dL (0.2 mg/dL) Urine Leukocyte Esterase Large (NEG) Urine RBC Tntc/HPF (0-2) Urine WBC Tntc/HPF (0-4) Urine Squamous Epithelial Cells Mod/LPF Urine Amorphous Sediment Present/HPF Urine Bacteria Moderate/HPF (0-FEW) Urine Hyaline Casts Moderate/HPF Glucose (Fingerstick) 95mg/dL (70-99) 169mg/dL (70-99) Sodium Level 134mmol/L (136-145) Potassium Level 5.3mmol/L (3.5-5.1) Chloride Level 97mmol/L (98-107) Carbon Dioxide Level 27mmol/L (21-32) Anion Gap 10 (6-14) Blood Urea Nitrogen 46mg/dL (8-26) Creatinine 3.4mg/dL (0.7-1.3) Estimated GFR (Cockcroft-Gault) 17.5 Glucose Level 180mg/dL (70-99) Calcium Level 8.3mg/dL (8.5-10.1) RICHIE UPTON MD Feb 02, 2017 11:19
[2017-02-02 11:30] LABS: INR 4.5 (0.8-1.1)
--- NOTE | 2017-02-02 15:15 | PDOC ---
PROGRESS NOTES Chief Complaint Chief Complaint 1. Oliguric, hyperkalemic renal failure POA, needing STAT initiation of HD ( first session 01/29/17), 2 TIM on CKD, maybe even ESRD now needing stat HD initiation 3. MEtabolic encephalopathy 4. chronic LE edema stable 5. CHF 4. Multivessel CAD s/p recent CABG 6. SSS with indwelling PPM 7. PAFIB; maintaining SR 8. Therapeutic INR on coumadin 9. Acute on chronic back pain, indwelling back stimulator - needs adjustment 10. DM2, on insulin 11. BPH 12. supratherapeutic INR with coumadin 13. AMS with hallucination 2/2 TIM , metabolic encephalopathy likely plan: 1. fu with renal, pt pulled out his rt IJ temp HD cath, will get a new one today 2. labs daily 3. cont home meds, on coumadin daily, INR daily, will hold if need to do a chest perm HD cath, fu with IR, RENAL 4. pain control, fu with dr. Kristen RUSSELL, ON insulin, decrease today, dc aspart, levemir change to 10u qhs refuse Rehab, with bad experience before, has HH. need to fu with renal to see if need a perm HD and set up outpt HD? uro consult for BPH, on flomax IR consult for HD perm Cath, HD daily now till tuesday. FFP 2 u. hold coumadin History of Present Illness History of Present Illness Numbers better after first session HD since Sat, new to pt Pt cant recall the details very involved in his care Only got 1 FFP yesterday (prior to HD cath insertion) (INR was 2,3 on warfarin for cardiac related issues) But HD cath inserted and now running second session HD I see that Hepatitis panel has been ordered- looking at OP HD set up now aware Relays back pain - lidoderm patch HELPS BUT IS WEARY TO START MDs in [facility] SAID IT GETS RENALLY EXCRETED. I did review literature on that and there was no dosage adjustments needed for renal impairment BUt still uncomfortable to restart Lidoderm patch hallucination INR 4.5 Vitals Vitals Vital Signs Date Time Temp Pulse Resp B/P Pulse Ox O2 Delivery O2 Flow Rate FiO2 02/02/17 12:46 98 Room Air 2.0 02/02/17 11:00 98.0 98.0 02/02/17 11:00 72 22 121/60 Physical Exam General: Alert, Oriented X3, Cooperative, No acute distress Heart: Regular rate, Normal S1, Normal S2, No murmurs, Gallops Lungs: Clear Abdomen: Normal bowel sounds, Soft, No tenderness, No hepatosplenomegaly, No masses Extremities: No clubbing, No cyanosis, No edema, Normal pulses, No tenderness/ swelling Skin: No rashes, No breakdown, No significant lesion Labs LABS Laboratory Tests Test 02/01/17 16:24 02/01/17 18:25 02/01/17 21:18 02/02/17 01:30 Glucose (Fingerstick) 59mg/dL (70-99) 87mg/dL (70-99) Ammonia 11mcmol/L (11-34) Urine Collection Type Unknown Urine Color Alison Urine Clarity Turbid Urine pH 5.5 Urine Specific [place] 1.020 Urine Protein >=300mg/dL (NEG-TRACE) Urine Glucose (UA) Negativemg/dL (NEG) Urine Ketones (Stick) Negativemg/dL (NEG) Urine Blood Large (NEG) Urine Nitrite Negative (NEG) Urine Bilirubin Small (NEG) Urine Urobilinogen Dipstick 0.2mg/dL (0.2 mg/dL) Urine Leukocyte Esterase Large (NEG) Urine RBC Tntc/HPF (0-2) Urine WBC Tntc/HPF (0-4) Urine Squamous Epithelial Cells Mod/LPF Urine Amorphous Sediment Present/HPF Urine Bacteria Moderate/HPF (0-FEW) Urine Hyaline Casts Moderate/HPF Test 02/02/17 06:57 02/02/17 10:15 02/02/17 10:45 Glucose (Fingerstick) 95mg/dL (70-99) 169mg/dL (70-99) Prothrombin Time 40.2SEC (11.7-14.0) Prothromb Time International Ratio 4.5 (0.8-1.1) Sodium Level 134mmol/L (136-145) Potassium Level 5.3mmol/L (3.5-5.1) Chloride Level 97mmol/L (98-107) Carbon Dioxide Level 27mmol/L (21-32) Anion Gap 10 (6-14) Blood Urea Nitrogen 46mg/dL (8-26) Creatinine 3.4mg/dL (0.7-1.3) Estimated GFR (Cockcroft-Gault) 17.5 Glucose Level 180mg/dL (70-99) Calcium Level 8.3mg/dL (8.5-10.1) Review of Systems Review of Systems no fever, chills, sob or chest pain Assessment and Plan Assessmemt and Plan Problems Medical Problems: (1) Acute hyperkalemia Status: Acute (2) Acute renal failure Status: Acute Problems: Comment Review of Relevant I have reviewed the following items sarah (where applicable) has been applied. Labs Laboratory Tests Test 01/31/17 17:21 01/31/17 21:12 02/01/17 03:45 02/01/17 07:07 Glucose (Fingerstick) 94mg/dL (70-99) 150mg/dL (70-99) 136mg/dL (70-99) White Blood Count 5.8x10^3/uL (4.0-11.0) Red Blood Count 2.70x10^6/uL (4.30-5.70) Hemoglobin 9.0g/dL (13.0-17.5) Hematocrit 25.9% (39.0-53.0) Mean Corpuscular Volume 96fL (79-100) Mean Corpuscular Hemoglobin 33pg (25-35) Mean Corpuscular Hemoglobin Concent 35g/dL (31-37) Red Cell Distribution Width 14.9% (11.5-14.5) Platelet Count 65x10^3/uL (140-400) Neutrophils (%) (Auto) 74% (31-73) Lymphocytes (%) (Auto) 14% (24-48) Monocytes (%) (Auto) 11% (0-9) Eosinophils (%) (Auto) 1% (0-3) Basophils (%) (Auto) 1% (0-3) Neutrophils # (Auto) 4.3x10^3uL (1.8-7.7) Lymphocytes # (Auto) 0.8x10^3/uL (1.0-4.8) Monocytes # (Auto) 0.6x10^3/uL (0.0-1.1) Eosinophils # (Auto) 0.0x10^3/uL (0.0-0.7) Basophils # (Auto) 0.0x10^3/uL (0.0-0.2) Prothrombin Time 29.1SEC (11.7-14.0) Prothromb Time International Ratio 2.9 (0.8-1.1) Sodium Level 136mmol/L (136-145) Potassium Level 4.5mmol/L (3.5-5.1) Chloride Level 99mmol/L (98-107) Carbon Dioxide Level 29mmol/L (21-32) Anion Gap 8 (6-14) Blood Urea Nitrogen 23mg/dL (8-26) Creatinine 1.8mg/dL (0.7-1.3) Estimated GFR (Cockcroft-Gault) 36.4 Glucose Level 171mg/dL (70-99) Calcium Level 8.5mg/dL (8.5-10.1) Test 02/01/17 11:17 02/01/17 16:24 02/01/17 18:25 02/01/17 21:18 Glucose (Fingerstick) 165mg/dL (70-99) 59mg/dL (70-99) 87mg/dL (70-99) Ammonia 11mcmol/L (11-34) Test 02/02/17 01:30 02/02/17 06:57 02/02/17 10:15 02/02/17 10:45 Urine Collection Type Unknown Urine Color Alison Urine Clarity Turbid Urine pH 5.5 Urine Specific [place] 1.020 Urine Protein >=300mg/dL (NEG-TRACE) Urine Glucose (UA) Negativemg/dL (NEG) Urine Ketones (Stick) Negativemg/dL (NEG) Urine Blood Large (NEG) Urine Nitrite Negative (NEG) Urine Bilirubin Small (NEG) Urine Urobilinogen Dipstick 0.2mg/dL (0.2 mg/dL) Urine Leukocyte Esterase Large (NEG) Urine RBC Tntc/HPF (0-2) Urine WBC Tntc/HPF (0-4) Urine Squamous Epithelial Cells Mod/LPF Urine Amorphous Sediment Present/HPF Urine Bacteria Moderate/HPF (0-FEW) Urine Hyaline Casts Moderate/HPF Glucose (Fingerstick) 95mg/dL (70-99) 169mg/dL (70-99) Prothrombin Time 40.2SEC (11.7-14.0) Prothromb Time International Ratio 4.5 (0.8-1.1) Sodium Level 134mmol/L (136-145) Potassium Level 5.3mmol/L (3.5-5.1) Chloride Level 97mmol/L (98-107) Carbon Dioxide Level 27mmol/L (21-32) Anion Gap 10 (6-14) Blood Urea Nitrogen 46mg/dL (8-26) Creatinine 3.4mg/dL (0.7-1.3) Estimated GFR (Cockcroft-Gault) 17.5 Glucose Level 180mg/dL (70-99) Calcium Level 8.3mg/dL (8.5-10.1) Laboratory Tests Test 02/01/17 16:24 02/01/17 18:25 02/01/17 21:18 02/02/17 01:30 Glucose (Fingerstick) 59mg/dL (70-99) 87mg/dL (70-99) Ammonia 11mcmol/L (11-34) Urine Collection Type Unknown Urine Color Alison Urine Clarity Turbid Urine pH 5.5 Urine Specific [place] 1.020 Urine Protein >=300mg/dL (NEG-TRACE) Urine Glucose (UA) Negativemg/dL (NEG) Urine Ketones (Stick) Negativemg/dL (NEG) Urine Blood Large (NEG) Urine Nitrite Negative (NEG) Urine Bilirubin Small (NEG) Urine Urobilinogen Dipstick 0.2mg/dL (0.2 mg/dL) Urine Leukocyte Esterase Large (NEG) Urine RBC Tntc/HPF (0-2) Urine WBC Tntc/HPF (0-4) Urine Squamous Epithelial Cells Mod/LPF Urine Amorphous Sediment Present/HPF Urine Bacteria Moderate/HPF (0-FEW) Urine Hyaline Casts Moderate/HPF Test 02/02/17 06:57 02/02/17 10:15 02/02/17 10:45 Glucose (Fingerstick) 95mg/dL (70-99) 169mg/dL (70-99) Prothrombin Time 40.2SEC (11.7-14.0) Prothromb Time International Ratio 4.5 (0.8-1.1) Sodium Level 134mmol/L (136-145) Potassium Level 5.3mmol/L (3.5-5.1) Chloride Level 97mmol/L (98-107) Carbon Dioxide Level 27mmol/L (21-32) Anion Gap 10 (6-14) Blood Urea Nitrogen 46mg/dL (8-26) Creatinine 3.4mg/dL (0.7-1.3) Estimated GFR (Cockcroft-Gault) 17.5 Glucose Level 180mg/dL (70-99) Calcium Level 8.3mg/dL (8.5-10.1) Medications Current Medications Calcium Gluconate 1,000 mg 1X ONCE IVP Last administered on 01/29/17 14:19; Start 01/29/17 at 13:45; Stop 01/29/17 at 13:46; Status DC Dextrose 25 gm 1X ONCE IV Last administered on 01/29/17 14:29; Start 01/29/17 at 13:45; Stop 01/29/17 at 13:46; Status DC Insulin Human Regular (Novolin R Vial) 10 unit 1X ONCE IV Last administered on 01/29/17 14:32; Start 01/29/17 at 13:45; Stop 01/29/17 at 13:46; Status DC Furosemide (Lasix) 40 mg 1X ONCE IVP Last administered on 01/29/17 14:33; Start 01/29/17 at 13:45; Stop 01/29/17 at 13:46; Status DC Oxycodone/ Acetaminophen (Percocet 5/325) 1 tab 1X ONCE PO Last administered on 01/29/17 14:18; Start 01/29/17 at 14:00; Stop 01/29/17 at 14:02; Status DC Ondansetron HCl (Zofran) 4 mg PRN Q8HRS PRN IV NAUSEA/VOMITING; Start 01/29/17 at 14:15; Stop 01/29/17 at 14:43; Status DC Fentanyl Citrate 50 mcg 50 mcg PRN Q2HR PRN IV PAIN Last administered on 11:04; Start 01/29/17 at 14:15; Stop 01/30/17 at 14:14; Status DC Sodium Chloride (Iv Sodium Chloride 0.9% 1000ml Bag) 1,000 ml @ 75 mls/hr [id number] IV Last administered on 01/29/17 22:15; Start 01/29/17 at 14:12; Stop at 14:11; Status DC Acetaminophen (Tylenol) 650 mg PRN Q4HRS PRN PO FEVER; Start 01/29/17 at 14:15; Stop 01/30/17 at 14:14; Status DC Ondansetron HCl (Zofran) 4 mg PRN Q6HRS PRN IV NAUSEA/VOMITING; Start 01/29/17 at 14:39 Alprazolam (Xanax) 0.5 mg PRN TID PRN PO nerves Last administered on 01/30/17 16:22; Start 01/29/17 at 14:45 Calcitriol (Rocaltrol) 0.25 mcg DAILY PO Last administered on 02/02/17 08:46; Start 01/30/17 at 09:00 Dorzolamide/ Timolol (Cosopt) 1 drop BID OU Last administered on 02/02/17 08:48 ; Start 01/29/17 at 21:00 Ferrous Sulfate (Feosol) 325 mg DAILY PO Last administered on 02/02/17 08:43; Start 01/30/17 at 09:00 Folic Acid (Folic Acid) 2 mg TID PO Last administered on 02/02/17 08:43; Start 01/29/17 at 15:30 Gemfibrozil (Lopid) 600 mg BIDBFRMEAL PO Last administered on 02/02/17 08:43; Start 01/29/17 at 16:30 Latanoprost (Xalatan) 1 drop QHS OU Last administered on 02/02/17 08:49; Start 01/29/17 at 21:00 Amylase/Lipase/ Protease (Zenpep 5,000) 4 cap DAILY PO Last administered on 02/02 09:40; Start 01/30/17 at 09:00 Metoprolol Tartrate (Lopressor) 50 mg DAILY PO Last administered on 02/02/17 08 :46; Start 01/30/17 at 09:00; Stop 02/02/17 at 11:13; Status DC Fish Oil (Fish Oil) 1,000 mg DAILY PO Last administered on 02/02/17 08:45; Start 01/30/17 at 09:00 Pregabalin (Lyrica) 75 mg BID PO Last administered on 02/02/17 08:46; Start 01/29/17 at 21:00 Ropinirole HCl (Requip) 1 mg HS PO Last administered on 02/01/17 21:22; Start 01/29/17 at 21:00 Sennosides (Senna) 8.6 mg BID PO Last administered on 02/02/17 08:43; Start 01/29/17 at 21:00 Spironolactone (Aldactone) 25 mg DAILY PO Last administered on 02/02/17 08:43; Start 01/30/17 at 09:00; Stop 02/02/17 at 11:13; Status DC Tamsulosin HCl (Flomax) 0.8 mg DAILY PO Last administered on 02/02/17 08:43; Start 01/30/17 at 09:00 Insulin Detemir (Levemir) 22 units QHS SQ ; Start 01/29/17 at 21:00; Stop at 11:22; Status DC Insulin Aspart (Novolog) 8 units TIDBFRMEAL SQ Last administered on 01/30/17 08 :48; Start 01/29/17 at 16:30; Stop 01/30/17 at 11:22; Status DC Pantoprazole Sodium (Protonix) 40 mg DAILYAC PO Last administered on 02/02/17 08:46; Start 01/30/17 at 07:30 Morphine Sulfate (Ms Contin) 30 mg BID PO Last administered on 02/02/17 08:46; Start 01/29/17 at 21:00; Stop 02/02/17 at 12:11; Status DC Phytonadione (Mephyton) 5 mg 1X ONCE PO ; Start 01/29/17 at 15:30; Stop 01/29/17 at 15:31; Status DC Insulin Aspart (Novolog) 0-9 UNITS TIDWMEALS SQ Last administered on 02/01/17 11:50; Start 01/29/17 at 17:00 Dextrose 12.5 gm 12.5 gm PRN Q15MIN PRN IV SEE COMMENTS Last administered on 18:40; Start 01/29/17 at 14:45 Sodium Chloride (Iv Sodium Chloride 0.9% 500ml Bag) 500 ml @ 500 mls/hr 1X ONCE IV Last administered on 01/29/17 15:15; Start 01/29/17 at 15:15; Stop at 16:14; Status DC Heparin Sodium (Porcine) 84633 unit 10,000 unit STK-MED ONCE .ROUTE ; Start 01/29 at 15:30; Stop 01/29/17 at 15:31; Status DC Heparin Sodium/ Sodium Chloride 500 ml @ As Directed STK-MED ONCE .ROUTE ; Start 01/29/17 at 15:30; Stop 01/29/17 at 15:31; Status DC Lidocaine/ Epinephrine (Xylocaine 1%-Epi 1:100,000) 20 ml STK-MED ONCE .ROUTE ; Start 01/29/17 at 15:31; Stop 01/29/17 at 15:32; Status DC Lidocaine/ Epinephrine (Xylocaine 1%-Epi 1:100,000) 4 ml 1X ONCE IJ Last administered on 01/29/17 16:30; Start 01/29/17 at 16:00; Stop 01/29/17 at 16:01; Status DC Heparin Sodium/ Sodium Chloride 60 unit 1X ONCE IV Last administered on 16:30; Start 01/29/17 at 16:00; Stop 01/29/17 at 16:01; Status DC Heparin Sodium (Porcine) 2500 unit 2,500 unit 1X ONCE INT CAT Last administered on 01/29/17 16:30; Start 01/29/17 at 16:00; Stop 01/29/17 at 16:01; Status DC Sodium Chloride 1,000 ml @ 1,000 mls/hr Q1H PRN IV hypotension; Start 01/29/17 at 17:31; Stop 01/29/17 at 23:30; Status DC Albumin Human (Albuminar) 200 ml @ 200 mls/hr 1X PRN PRN IV Hypotension; Start 01/29/17 at 17:45; Stop 01/29/17 at 23:30; Status DC Sodium Chloride (Normal Saline Flush) 10 ml 1X PRN PRN IV AP 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; Start 01/29/17 at 17:45; Stop 01/29/17 at 23:30; Status DC Sodium Chloride (Normal Saline Flush) 10 ml 1X PRN PRN IV LANGUAGE PATH 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; Start 01/29/17 at 17:45; Stop 01/29/17 at 23:30; Status DC Info (PHARMACY MONITORING -- do not chart) 1 each PRN DAILY PRN MC SEE COMMENTS ; Start 01/29/17 at 17:45 Info (PHARMACY MONITORING -- do not chart) 1 each PRN DAILY PRN MC SEE COMMENTS ; Start 01/29/17 at 17:45; Status UNV Aspirin (Ecotrin) 81 mg DAILY PO Last administered on 02/02/17 08:43; Start 01/30/17 at 09:00 Warfarin Sodium (Coumadin) 4 mg DAILY16 PO Last administered on 02/01/17 16:40 ; Start 01/29/17 at 19:00; Stop 02/02/17 at 12:11; Status DC Warfarin Sodium (Coumadin Per Physician) 1 each PRN DAILY PRN MC SEE COMMENTS Last administered on 02/01/17 14:01; Start 01/29/17 at 18:30 Insulin Aspart (Novolog) 5 units TIDBFRMEAL SQ Last administered on 02/01/17 11 :50; Start 01/30/17 at 11:30; Stop 02/02/17 at 11:01; Status DC Insulin Detemir 18 units 18 units QHS SQ Last administered on 01/31/17 21:31; Start 01/30/17 at 21:00; Stop 02/02/17 at 11:01; Status DC Sodium Chloride (Iv Sodium Chloride 0.9% 1000ml Bag) 1,000 ml @ 1,000 mls/hr Q1H PRN IV hypotension; Start 01/30/17 at 11:38; Stop 01/30/17 at 17:37; Status DC Sodium Chloride (Normal Saline Flush) 10 ml 1X PRN PRN IV AP 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; Start 01/30/17 at 11:45; Stop 01/31/17 at 11:44; Status DC Sodium Chloride (Normal Saline Flush) 10 ml 1X PRN PRN IV LANGUAGE PATH 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; Start 01/30/17 at 11:45; Stop 01/31/17 at 11:44; Status DC Info (PHARMACY MONITORING -- do not chart) 1 each PRN DAILY PRN MC SEE COMMENTS ; Start 01/30/17 at 11:45; Status UNV Info (PHARMACY MONITORING -- do not chart) 1 each PRN DAILY PRN MC SEE COMMENTS ; Start 01/30/17 at 11:45; Status UNV Oxycodone/ Acetaminophen (Percocet 5/325) 1 tab PRN Q4HRS PRN PO PAIN Last administered on 01/30/17 21:50; Start 01/30/17 at 18:45 Oxycodone/ Acetaminophen (Percocet 10/325) 1 tab PRN Q4HRS PRN PO PAIN Last administered on 02/01/17 14:03; Start 01/30/17 at 18:45; Stop 02/02/17 at 12:11; Status DC Insulin Aspart (Novolog) 9 units 1X ONCE SQ Last administered on 01/30/17 21: 57; Start 01/30/17 at 21:30; Stop 01/30/17 at 21:31; Status DC Lidocaine/Sodium Bicarbonate (Buffered Lidocaine 1%) 3 ml 1X ONCE IJ Last administered on 01/31/17 12:15; Start 01/31/17 at 12:15; Stop 01/31/17 at 12:16; Status DC Heparin Sodium/ Sodium Chloride 60 unit 1X ONCE IV Last administered on 13:02; Start 01/31/17 at 12:15; Stop 01/31/17 at 12:16; Status DC Heparin Sodium (Porcine) 2,500 unit 1X ONCE INT CAT Last administered on 13:02; Start 01/31/17 at 12:15; Stop 01/31/17 at 12:16; Status DC Heparin Sodium (Porcine) 10,000 unit STK-MED ONCE .ROUTE ; Start 01/31/17 at 12: 18; Stop 01/31/17 at 12:19; Status DC Fentanyl Citrate (Fentanyl 2ml Vial) 100 mcg STK-MED ONCE .ROUTE ; Start at 12:29; Stop 01/31/17 at 12:30; Status DC Midazolam HCl (Versed) 2 mg STK-MED ONCE .ROUTE ; Start 01/31/17 at 12:29; Stop 01/31/17 at 12:30; Status DC Midazolam HCl (Versed) 2 mg 1X ONCE IV Last administered on 01/31/17 13:01; Start 01/31/17 at 13:00; Stop 01/31/17 at 13:01; Status DC Non-Formulary Medication 1 ea QID OS Last administered on 02/02/17 08:50; Start 01/31/17 at 14:00 Non-Formulary Medication 1 ea QHS OS Last administered on 02/02/17 08:51; Start 01/31/17 at 21:00 Darbepoetin Joshua (Aranesp) 60 mcg WEEKLYHS SQ Last administered on 02/01/17 21: 25; Start 02/01/17 at 21:00 Insulin Detemir (Levemir) 10 units QHS SQ ; Start 02/02/17 at 21:00 Metoprolol Tartrate (Lopressor) 25 mg DAILY PO ; Start 02/03/17 at 09:00 Morphine Sulfate (Ms Contin) 20 mg BID PO ; Start 02/02/17 at 21:00; Stop at 21:00; Status DC Morphine Sulfate (Ms Contin) 15 mg BID PO ; Start 02/02/17 at 21:00 Active Scripts Active Lasix (Furosemide) 80 Mg Tablet 1 Tab PO DAILY Reported Kkvdxg-Uiefk-Xhbktwk Eye Ointm ([place]/Polymyx B Sulf/Dexameth) 3.5 Gm Oint...g. 3.5 Gm OS QHS Durezol (Difluprednate) 5 Ml Drops 1 Drop OS QID Aspir 81 (Aspirin) 81 Mg Tablet. 1 Tab PO DAILY Senokot (Sennosides) 8.6 Mg Tablet 3 Tab PO BID Morphine Sulfate Er (Morphine Sulfate) 60 Mg Cap.er.pel 60 Mg PO Metoprolol Tartrate 50 Mg Tablet 0.5 Tab PO DAILY Latanoprost 2.5 Ml Drops 1 Drop EACHEYE QHS Gemfibrozil 600 Mg Tablet 1 Tab PO BID Dorzolamide-Timolol Eye Drops (Dorzolamide Hcl/Timolol Maleat) 10 Ml Drops 1 Drop RIGHTEYE BID Lyrica (Pregabalin) 75 Mg Capsule 1 Cap PO BID Alprazolam 0.5 Mg Tablet 1 Tab PO TID Warfarin Sodium 4 Mg Tablet 1 Tab PO DAILY Fish Oil 1,000 Mg Capsule ([place]-3 Fatty Acids/Fish Oil) 1 Each Capsule 4 Each PO DAILY Pancrelipase 5,000 Unit Cap (Lipase/Protease/Amylase) 1 Each Capsule. 4 Each PO Prilosec Otc (Omeprazole Magnesium) 20 Mg Tablet. 20 Mg PO DAILY Lyrica (Pregabalin) 25 Mg Capsule 50 Mg PO TID 30 Days Gemfibrozil 600 Mg Tablet 600 Mg PO BID Spironolactone 25 Mg Tablet 25 Mg PO DAILY Calcitriol 0.25 Mcg Capsule 0.25 Mcg PO DAILY Lantus (Insulin Glargine,Hum.rec.anlog) 100 Unit/1 Ml Vial 22 Unit SQ HS Humalog (Insulin Lispro) 100 Unit/1 Ml Vial 8 Unit SQ TID Folic Acid 1 Mg Tablet 2 Mg PO TID Ferosul (Ferrous Sulfate) 325 Mg Tablet 325 Mg PO Ropinirole Hcl 1 Mg Tablet 1 Mg PO HS Tamsulosin Hcl 0.4 Mg Cap.er.24h 0.8 Mg PO DAILY Travatan Z (Travoprost) 5 Ml Drops 5 Ml OP Vitals/I & O Vital Sign - Last 24 Hours 02/01/17 02/01/17 02/01/17 02/01/17 15:29 19:00 20:00 21:22 Temp 97.7 97.7 Pulse 69 Resp 20 B/P 126/52 Pulse Ox 97 O2 Delivery Room Air Room Air Room Air Room Air 02/01/17 02/02/17 02/02/17 02/02/17 23:00 03:00 07:00 07:00 Temp 98.6 98.3 97.4 98.6 98.3 97.4 Pulse 70 72 70 Resp 20 20 20 B/P 107/59 112/74 107/52 Pulse Ox 96 94 95 O2 Delivery Room Air Room Air Nasal Cannula Room Air O2 Flow Rate 2.0 95.0 02/02/17 02/02/17 02/02/17 02/02/17 08:00 08:46 08:46 11:00 Temp 98.0 98.0 Pulse 70 72 Resp 22 B/P 107/52 121/60 Pulse Ox 98 O2 Delivery Room Air Nasal Cannula Room Air O2 Flow Rate 2.0 2.0 02/02/17 02/02/17 11:00 12:46 Temp 98.0 98.0 Pulse Ox 98 O2 Delivery Room Air O2 Flow Rate 2.0 Intake and Output 02/01/17 02/01/17 02/02/17 15:00 23:00 07:00 Intake Total 360 ml Output Total 150 ml 60 ml Balance 210 ml -60 ml JAMES QUAN MD Feb 02, 2017 15:15
[2017-02-02 16:06] LABS: BILIRUBIN,URINE NEGATIVE (NEG); GLUCOSE,URINE NEGATIVE (NEG); NITRITE,URINE NEGATIVE (NEG); PROTEIN,URINE 100 mg/dL (NEG-TRACE)
[2017-02-02 16:23] LABS: BACTERIA,URINE MANY /HPF (0-FEW); RBC,URINE >40 /HPF (0-2); WBC,URINE >40 /HPF (0-4)
[2017-02-02] MEDS: OXYCODONE/APAP 5/325 TABLET. PO PRN (17:30)
[2017-02-02] MEDS ORDERED: MORPHINE ER 30 MG TABLET.ER PO SCH (21:00)
[2017-02-02] MEDS: rOPINIRole 1 MG TABLET. PO SCH (21:23)
[2017-02-02] MEDS: ALPRAZOLAM 0.5 MG TABLET PO PRN (21:23)
[2017-02-02] MEDS: MORPHINE ER 15 MG TABLET.ER PO SCH (21:23)
[2017-02-02] MEDS: INSULIN DETEMIR 300 UNITS/3 ML INSULN.PEN. SQ SCH (21:31)
[2017-02-02] MEDS ORDERED: NALOXONE 0.4 MG/ML VIAL. IV ONE (23:30)
[2017-02-03] VITALS (11 sets, daily range): BP systolic 94–138; BP diastolic 38–68
--- NOTE | 2017-02-03 04:33 | CONS ---
DATE OF CONSULTATION: 02/02/2017 CHIEF COMPLAINT: Urinary retention. HISTORY OF PRESENT ILLNESS: An 81-year-old obese male with multiple medical problems. The patient was admitted to the hospital due to decreased urinary output, oliguria, acute renal failure on top of chronic renal failure and fatigue and confusion. A Good catheter was placed in the Emergency Room and 250 mL of urine was obtained. Urology was consulted due to urinary retention. The patient's past urological history is not obtainable at this time. The patient is very lethargic. He is a poor historian and currently on hemodialysis. PAST MEDICAL HISTORY: Significant for obesity, type 2 diabetes, coronary artery disease, hypertension. PAST SURGICAL HISTORY: The patient has had coronary artery bypass surgery, left shoulder surgery, fusion of C6-C7 cervical spine. He has a pain stimulator and also a pacemaker. ALLERGIES: MULTIPLE INCLUDING STATINS, GABAPENTIN, SULFA AND TRIMETHOPRIM. SOCIAL HISTORY: The patient lives at home. Does not appear to be a current smoker. Previous alcohol use is unknown. FAMILY HISTORY: Noncontributory. REVIEW OF SYSTEMS: Unobtainable from the patient. He is a poor historian and extremely lethargic, currently on hemodialysis. 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 ABDOMEN: Obese, negative for flank pain bilaterally. No palpable abdominal masses. No suprapubic tenderness. GENITALIA: The patient has indwelling Good catheter draining alan concentrated urine. SCROTUM: The patient has bilateral hydroceles moderate in nature. RECTAL: Not performed. MUSCULOSKELETAL: Negative for cyanosis. Negative for edema. LABORATORY STUDIES: The patient's current hemoglobin 9.0, hematocrit 25.9, white blood cell count within normal limits at 5.8, platelets are low at 65,000. Currently, the patient's creatinine is 3.4, BUN is 46, potassium 5.3. Urine alan in color, large dipstick blood, trace of bilirubin, large leukocytes, red blood cells, too numerous to count, white blood cells too numerous to count, moderate bacteria. The patient's current INR is 4.5. His PT is 40.2. X-RAY STUDIES: No x-rays pertinent to the system. IMPRESSION: 1. Urinary retention. 2. Acute renal failure on top of chronic renal insufficiency. 3. Obesity. 4. Urinary tract infection. SUGGESTIONS: 1. The patient's current condition does not allow complete urological workup at this time. He is not in any shape to undergo cystoscopy and certainly not a candidate for any type of interventional urological surgery. Therefore, I would continue to maintain him on an indwelling Good catheter until his overall status improves. 2. Treat urinary tract infection. 3. Recommend bilateral renal ultrasound if one has not been done already. 4. Once the patient is recovered and reached his baseline, then he might be a candidate for diagnostic cystoscopy to determine if his urine retention is due to bladder outlet obstruction. Thank you for the opportunity to participate in evaluation of this patient. MYRIAM VERA DO DR: LATIA/elpidio JOB#: [id number] / [id number]
[2017-02-03 05:43] LABS: INR 3.9 (0.8-1.1); PROTHROMBIN TIME PATIENT 35.8 SEC (11.7-14.0)
[2017-02-03 05:57] LABS: CALCIUM 8.1 mg/dL (8.5-10.1); CREATININE 3.4 mg/dL (0.7-1.3); GFR 17.5; POTASSIUM 4.5 mmol/L (3.5-5.1)
[2017-02-03] MEDS: PANTOPRAZOLE 40 MG TABLET. PO SCH (07:30)
[2017-02-03] MEDS: GEMFIBROZIL 600 MG TABLET. PO SCH ×2 (07:30→17:22)
[2017-02-03] MEDS: INSULIN ASPART 300 UNITS/3 ML INSULN.PEN SQ SCH ×3 (08:00→16:58)
[2017-02-03] MEDS: PREGABALIN 75 MG CAPSULE PO SCH ×2 (09:00→21:09)
[2017-02-03] MEDS: TAMSULOSIN 0.4 MG CAP.ER.24H. PO SCH (09:00)
[2017-02-03] MEDS: OMEGA-3 FATTY ACIDS/FISH OIL 1,000 MG CAPSULE. PO SCH (09:00)
[2017-02-03] MEDS: FERROUS SULFATE 325 MG TABLET PO SCH (09:00)
[2017-02-03] MEDS: ASPIRIN ENTERIC COATED 81 MG TABLET.DR. PO SCH (09:00)
[2017-02-03] MEDS: SENNOSIDES 8.6 MG TABLET PO SCH ×2 (09:00→21:09)
[2017-02-03] MEDS: LIPASE/PROTEAS/AMYLASE 5/17/27 CAPSULE.DR. PO SCH (09:00)
[2017-02-03] MEDS: METOPROLOL TART IMMED RELEASE 25 MG TABLET PO SCH (09:00)
[2017-02-03] MEDS: CALCITRIOL 0.25 MCG CAPSULE PO SCH (09:00)
[2017-02-03] MEDS: DUREZOL OS SCH ×4 (09:00→21:08)
[2017-02-03] MEDS: MORPHINE ER 15 MG TABLET.ER PO SCH (09:00)
[2017-02-03] MEDS: DORZOLAMIDE/TIMOLOL 2%/0.5% OPHTH SOLUTION 10ML BOTTLE. OU SCH ×2 (09:00→21:08)
[2017-02-03] MEDS: FOLIC ACID 1 MG TABLET PO SCH ×3 (09:00→21:09)
--- NOTE | 2017-02-03 10:06 | PDOC ---
PROGRESS NOTES Subjective Subjective They have to call rapid response last night as he developed bradycardia and lethargy last night. Objective Objective Vital Signs Date Time Temp Pulse Resp B/P Pulse Ox O2 Delivery O2 Flow Rate FiO2 02/03/17 08:00 Bi-pap 2.0 02/03/17 07:00 98.0 70 13 109/62 94 98.0 Intake and Output 02/03/17 07:00 Intake Total 1497 ml Output Total 450 ml Balance 1047 ml Intake Oral 540 ml Blood Product IV Normal Saline Flush 957 ml Output Urine Total 450 ml # Bowel Movements 1 Physical Exam Physical Exam He is sleeping this AM with BIPAP supine in bed and does not seem to be in any distress. Assessment Assessment Problems Medical Problems: (1) Acute hyperkalemia Status: Acute (2) Acute renal failure Status: Acute Plan Plan of Care To hold off narcotics until his respiratory condition improves. Comment Review of Relevant I have reviewed the following items sarah (where applicable) has been applied. Labs Laboratory Tests Test 02/01/17 11:17 02/01/17 16:24 02/01/17 18:25 02/01/17 21:18 Glucose (Fingerstick) 165mg/dL (70-99) 59mg/dL (70-99) 87mg/dL (70-99) Ammonia 11mcmol/L (11-34) Test 02/02/17 01:30 02/02/17 06:57 02/02/17 10:15 02/02/17 10:45 Urine Collection Type Unknown Urine Color Alison Urine Clarity Turbid Urine pH 5.5 Urine Specific [place] 1.020 Urine Protein >=300mg/dL (NEG-TRACE) Urine Glucose (UA) Negativemg/dL (NEG) Urine Ketones (Stick) Negativemg/dL (NEG) Urine Blood Large (NEG) Urine Nitrite Negative (NEG) Urine Bilirubin Small (NEG) Urine Urobilinogen Dipstick 0.2mg/dL (0.2 mg/dL) Urine Leukocyte Esterase Large (NEG) Urine RBC Tntc/HPF (0-2) Urine WBC Tntc/HPF (0-4) Urine Squamous Epithelial Cells Mod/LPF Urine Amorphous Sediment Present/HPF Urine Bacteria Moderate/HPF (0-FEW) Urine Hyaline Casts Moderate/HPF Glucose (Fingerstick) 95mg/dL (70-99) 169mg/dL (70-99) Prothrombin Time 40.2SEC (11.7-14.0) Prothromb Time International Ratio 4.5 (0.8-1.1) Sodium Level 134mmol/L (136-145) Potassium Level 5.3mmol/L (3.5-5.1) Chloride Level 97mmol/L (98-107) Carbon Dioxide Level 27mmol/L (21-32) Anion Gap 10 (6-14) Blood Urea Nitrogen 46mg/dL (8-26) Creatinine 3.4mg/dL (0.7-1.3) Estimated GFR (Cockcroft-Gault) 17.5 Glucose Level 180mg/dL (70-99) Calcium Level 8.3mg/dL (8.5-10.1) Test 02/02/17 16:00 02/02/17 17:26 02/02/17 20:42 02/02/17 22:57 Urine Collection Type Unknown Urine Color Alison Urine Clarity Cloudy Urine pH 5.0 Urine Specific Rogers 1.020 Urine Protein 100mg/dL (NEG-TRACE) Urine Glucose (UA) Negativemg/dL (NEG) Urine Ketones (Stick) Negativemg/dL (NEG) Urine Blood Large (NEG) Urine Nitrite Negative (NEG) Urine Bilirubin Negative (NEG) Urine Urobilinogen Dipstick 1.0mg/dL (0.2 mg/dL) Urine Leukocyte Esterase Large (NEG) Urine RBC >40/HPF (0-2) Urine WBC >40/HPF (0-4) Urine Bacteria Many/HPF (0-FEW) Urine Hyaline Casts Moderate/HPF Urine Mucus Slight/LPF Glucose (Fingerstick) 164mg/dL (70-99) 217mg/dL (70-99) 200mg/dL (70-99) Test 02/03/17 05:05 02/03/17 07:52 Prothrombin Time 35.8SEC (11.7-14.0) Prothromb Time International Ratio 3.9 (0.8-1.1) Sodium Level 138mmol/L (136-145) Potassium Level 4.5mmol/L (3.5-5.1) Chloride Level 99mmol/L (98-107) Carbon Dioxide Level 28mmol/L (21-32) Anion Gap 11 (6-14) Blood Urea Nitrogen 37mg/dL (8-26) Creatinine 3.4mg/dL (0.7-1.3) Estimated GFR (Cockcroft-Gault) 17.5 Glucose Level 175mg/dL (70-99) Calcium Level 8.1mg/dL (8.5-10.1) Glucose (Fingerstick) 162mg/dL (70-99) Laboratory Tests Test 02/02/17 10:15 02/02/17 10:45 02/02/17 16:00 02/02/17 17:26 Prothrombin Time 40.2SEC (11.7-14.0) Prothromb Time International Ratio 4.5 (0.8-1.1) Sodium Level 134mmol/L (136-145) Potassium Level 5.3mmol/L (3.5-5.1) Chloride Level 97mmol/L (98-107) Carbon Dioxide Level 27mmol/L (21-32) Anion Gap 10 (6-14) Blood Urea Nitrogen 46mg/dL (8-26) Creatinine 3.4mg/dL (0.7-1.3) Estimated GFR (Cockcroft-Gault) 17.5 Glucose Level 180mg/dL (70-99) Calcium Level 8.3mg/dL (8.5-10.1) Glucose (Fingerstick) 169mg/dL (70-99) 164mg/dL (70-99) Urine Collection Type Unknown Urine Color Alison Urine Clarity Cloudy Urine pH 5.0 Urine Specific Rogers 1.020 Urine Protein 100mg/dL (NEG-TRACE) Urine Glucose (UA) Negativemg/dL (NEG) Urine Ketones (Stick) Negativemg/dL (NEG) Urine Blood Large (NEG) Urine Nitrite Negative (NEG) Urine Bilirubin Negative (NEG) Urine Urobilinogen Dipstick 1.0mg/dL (0.2 mg/dL) Urine Leukocyte Esterase Large (NEG) Urine RBC >40/HPF (0-2) Urine WBC >40/HPF (0-4) Urine Bacteria Many/HPF (0-FEW) Urine Hyaline Casts Moderate/HPF Urine Mucus Slight/LPF Test 02/02/17 20:42 02/02/17 22:57 02/03/17 05:05 02/03/17 07:52 Glucose (Fingerstick) 217mg/dL (70-99) 200mg/dL (70-99) 162mg/dL (70-99) Prothrombin Time 35.8SEC (11.7-14.0) Prothromb Time International Ratio 3.9 (0.8-1.1) Sodium Level 138mmol/L (136-145) Potassium Level 4.5mmol/L (3.5-5.1) Chloride Level 99mmol/L (98-107) Carbon Dioxide Level 28mmol/L (21-32) Anion Gap 11 (6-14) Blood Urea Nitrogen 37mg/dL (8-26) Creatinine 3.4mg/dL (0.7-1.3) Estimated GFR (Cockcroft-Gault) 17.5 Glucose Level 175mg/dL (70-99) Calcium Level 8.1mg/dL (8.5-10.1) Medications Current Medications Calcium Gluconate 1,000 mg 1X ONCE IVP Last administered on 01/29/17 14:19; Start 01/29/17 at 13:45; Stop 01/29/17 at 13:46; Status DC Dextrose 25 gm 1X ONCE IV Last administered on 01/29/17 14:29; Start 01/29/17 at 13:45; Stop 01/29/17 at 13:46; Status DC Insulin Human Regular (Novolin R Vial) 10 unit 1X ONCE IV Last administered on 01/29/17 14:32; Start 01/29/17 at 13:45; Stop 01/29/17 at 13:46; Status DC Furosemide (Lasix) 40 mg 1X ONCE IVP Last administered on 01/29/17 14:33; Start 01/29/17 at 13:45; Stop 01/29/17 at 13:46; Status DC Oxycodone/ Acetaminophen (Percocet 5/325) 1 tab 1X ONCE PO Last administered on 01/29/17 14:18; Start 01/29/17 at 14:00; Stop 01/29/17 at 14:02; Status DC Ondansetron HCl (Zofran) 4 mg PRN Q8HRS PRN IV NAUSEA/VOMITING; Start 01/29/17 at 14:15; Stop 01/29/17 at 14:43; Status DC Fentanyl Citrate 50 mcg 50 mcg PRN Q2HR PRN IV PAIN Last administered on 11:04; Start 01/29/17 at 14:15; Stop 01/30/17 at 14:14; Status DC Sodium Chloride (Iv Sodium Chloride 0.9% 1000ml Bag) 1,000 ml @ 75 mls/hr [id number] IV Last administered on 01/29/17 22:15; Start 01/29/17 at 14:12; Stop at 14:11; Status DC Acetaminophen (Tylenol) 650 mg PRN Q4HRS PRN PO FEVER; Start 01/29/17 at 14:15; Stop 01/30/17 at 14:14; Status DC Ondansetron HCl (Zofran) 4 mg PRN Q6HRS PRN IV NAUSEA/VOMITING; Start 01/29/17 at 14:39 Alprazolam (Xanax) 0.5 mg PRN TID PRN PO nerves Last administered on 02/02/17 21:23; Start 01/29/17 at 14:45 Calcitriol (Rocaltrol) 0.25 mcg DAILY PO Last administered on 02/02/17 08:46; Start 01/30/17 at 09:00 Dorzolamide/ Timolol (Cosopt) 1 drop BID OU Last administered on 02/02/17 21:24 ; Start 01/29/17 at 21:00 Ferrous Sulfate (Feosol) 325 mg DAILY PO Last administered on 02/02/17 08:43; Start 01/30/17 at 09:00 Folic Acid (Folic Acid) 2 mg TID PO Last administered on 02/02/17 21:23; Start 01/29/17 at 15:30 Gemfibrozil (Lopid) 600 mg BIDBFRMEAL PO Last administered on 02/02/17 17:29; Start 01/29/17 at 16:30 Latanoprost (Xalatan) 1 drop QHS OU Last administered on 02/02/17 08:49; Start 01/29/17 at 21:00 Amylase/Lipase/ Protease (Zenpep 5,000) 4 cap DAILY PO Last administered on 02/02 09:40; Start 01/30/17 at 09:00 Metoprolol Tartrate (Lopressor) 50 mg DAILY PO Last administered on 02/02/17 08 :46; Start 01/30/17 at 09:00; Stop 02/02/17 at 11:13; Status DC Fish Oil (Fish Oil) 1,000 mg DAILY PO Last administered on 02/02/17 08:45; Start 01/30/17 at 09:00 Pregabalin (Lyrica) 75 mg BID PO Last administered on 02/02/17 21:22; Start 01/29/17 at 21:00 Ropinirole HCl (Requip) 1 mg HS PO Last administered on 02/02/17 21:23; Start 01/29/17 at 21:00 Sennosides (Senna) 8.6 mg BID PO Last administered on 02/02/17 21:23; Start 01/29/17 at 21:00 Spironolactone (Aldactone) 25 mg DAILY PO Last administered on 02/02/17 08:43; Start 01/30/17 at 09:00; Stop 02/02/17 at 11:13; Status DC Tamsulosin HCl (Flomax) 0.8 mg DAILY PO Last administered on 02/02/17 08:43; Start 01/30/17 at 09:00 Insulin Detemir (Levemir) 22 units QHS SQ ; Start 01/29/17 at 21:00; Stop at 11:22; Status DC Insulin Aspart (Novolog) 8 units TIDBFRMEAL SQ Last administered on 01/30/17 08 :48; Start 01/29/17 at 16:30; Stop 01/30/17 at 11:22; Status DC Pantoprazole Sodium (Protonix) 40 mg DAILYAC PO Last administered on 02/02/17 08:46; Start 01/30/17 at 07:30 Morphine Sulfate (Ms Contin) 30 mg BID PO Last administered on 02/02/17 08:46; Start 01/29/17 at 21:00; Stop 02/02/17 at 12:11; Status DC Phytonadione (Mephyton) 5 mg 1X ONCE PO ; Start 01/29/17 at 15:30; Stop 01/29/17 at 15:31; Status DC Insulin Aspart (Novolog) 0-9 UNITS TIDWMEALS SQ Last administered on 02/01/17 11:50; Start 01/29/17 at 17:00 Dextrose 12.5 gm 12.5 gm PRN Q15MIN PRN IV SEE COMMENTS Last administered on 18:40; Start 01/29/17 at 14:45 Sodium Chloride (Iv Sodium Chloride 0.9% 500ml Bag) 500 ml @ 500 mls/hr 1X ONCE IV Last administered on 01/29/17 15:15; Start 01/29/17 at 15:15; Stop at 16:14; Status DC Heparin Sodium (Porcine) 68093 unit 10,000 unit STK-MED ONCE .ROUTE ; Start 01/29 at 15:30; Stop 01/29/17 at 15:31; Status DC Heparin Sodium/ Sodium Chloride 500 ml @ As Directed STK-MED ONCE .ROUTE ; Start 01/29/17 at 15:30; Stop 01/29/17 at 15:31; Status DC Lidocaine/ Epinephrine (Xylocaine 1%-Epi 1:100,000) 20 ml STK-MED ONCE .ROUTE ; Start 01/29/17 at 15:31; Stop 01/29/17 at 15:32; Status DC Lidocaine/ Epinephrine (Xylocaine 1%-Epi 1:100,000) 4 ml 1X ONCE IJ Last administered on 01/29/17 16:30; Start 01/29/17 at 16:00; Stop 01/29/17 at 16:01; Status DC Heparin Sodium/ Sodium Chloride 60 unit 1X ONCE IV Last administered on 16:30; Start 01/29/17 at 16:00; Stop 01/29/17 at 16:01; Status DC Heparin Sodium (Porcine) 2500 unit 2,500 unit 1X ONCE INT CAT Last administered on 01/29/17 16:30; Start 01/29/17 at 16:00; Stop 01/29/17 at 16:01; Status DC Sodium Chloride 1,000 ml @ 1,000 mls/hr Q1H PRN IV hypotension; Start 01/29/17 at 17:31; Stop 01/29/17 at 23:30; Status DC Albumin Human (Albuminar) 200 ml @ 200 mls/hr 1X PRN PRN IV Hypotension; Start 01/29/17 at 17:45; Stop 01/29/17 at 23:30; Status DC Sodium Chloride (Normal Saline Flush) 10 ml 1X PRN PRN IV AP 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; Start 01/29/17 at 17:45; Stop 01/29/17 at 23:30; Status DC Sodium Chloride (Normal Saline Flush) 10 ml 1X PRN PRN IV BOX [employer] 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; Start 01/29/17 at 17:45; Stop 01/29/17 at 23:30; Status DC Info (PHARMACY MONITORING -- do not chart) 1 each PRN DAILY PRN MC SEE COMMENTS ; Start 01/29/17 at 17:45 Info (PHARMACY MONITORING -- do not chart) 1 each PRN DAILY PRN MC SEE COMMENTS ; Start 01/29/17 at 17:45; Status UNV Aspirin (Ecotrin) 81 mg DAILY PO Last administered on 02/02/17 08:43; Start 01/30/17 at 09:00 Warfarin Sodium (Coumadin) 4 mg DAILY16 PO Last administered on 02/01/17 16:40 ; Start 01/29/17 at 19:00; Stop 02/02/17 at 12:11; Status DC Warfarin Sodium (Coumadin Per Physician) 1 each PRN DAILY PRN MC SEE COMMENTS Last administered on 02/01/17 14:01; Start 01/29/17 at 18:30 Insulin Aspart (Novolog) 5 units TIDBFRMEAL SQ Last administered on 02/01/17 11 :50; Start 01/30/17 at 11:30; Stop 02/02/17 at 11:01; Status DC Insulin Detemir 18 units 18 units QHS SQ Last administered on 01/31/17 21:31; Start 01/30/17 at 21:00; Stop 02/02/17 at 11:01; Status DC Sodium Chloride (Iv Sodium Chloride 0.9% 1000ml Bag) 1,000 ml @ 1,000 mls/hr Q1H PRN IV hypotension; Start 01/30/17 at 11:38; Stop 01/30/17 at 17:37; Status DC Sodium Chloride (Normal Saline Flush) 10 ml 1X PRN PRN IV AP 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; Start 01/30/17 at 11:45; Stop 01/31/17 at 11:44; Status DC Sodium Chloride (Normal Saline Flush) 10 ml 1X PRN PRN IV BOX [employer] 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; Start 01/30/17 at 11:45; Stop 01/31/17 at 11:44; Status DC Info (PHARMACY MONITORING -- do not chart) 1 each PRN DAILY PRN MC SEE COMMENTS ; Start 01/30/17 at 11:45; Status UNV Info (PHARMACY MONITORING -- do not chart) 1 each PRN DAILY PRN MC SEE COMMENTS ; Start 01/30/17 at 11:45; Status UNV Oxycodone/ Acetaminophen (Percocet 5/325) 1 tab PRN Q4HRS PRN PO PAIN Last administered on 02/02/17 17:30; Start 01/30/17 at 18:45 Oxycodone/ Acetaminophen (Percocet 10/325) 1 tab PRN Q4HRS PRN PO PAIN Last administered on 02/01/17 14:03; Start 01/30/17 at 18:45; Stop 02/02/17 at 12:11; Status DC Insulin Aspart (Novolog) 9 units 1X ONCE SQ Last administered on 01/30/17 21: 57; Start 01/30/17 at 21:30; Stop 01/30/17 at 21:31; Status DC Lidocaine/Sodium Bicarbonate (Buffered Lidocaine 1%) 3 ml 1X ONCE IJ Last administered on 01/31/17 12:15; Start 01/31/17 at 12:15; Stop 01/31/17 at 12:16; Status DC Heparin Sodium/ Sodium Chloride 60 unit 1X ONCE IV Last administered on 13:02; Start 01/31/17 at 12:15; Stop 01/31/17 at 12:16; Status DC Heparin Sodium (Porcine) 2,500 unit 1X ONCE INT CAT Last administered on 13:02; Start 01/31/17 at 12:15; Stop 01/31/17 at 12:16; Status DC Heparin Sodium (Porcine) 10,000 unit STK-MED ONCE .ROUTE ; Start 01/31/17 at 12: 18; Stop 01/31/17 at 12:19; Status DC Fentanyl Citrate (Fentanyl 2ml Vial) 100 mcg STK-MED ONCE .ROUTE ; Start at 12:29; Stop 01/31/17 at 12:30; Status DC Midazolam HCl (Versed) 2 mg STK-MED ONCE .ROUTE ; Start 01/31/17 at 12:29; Stop 01/31/17 at 12:30; Status DC Midazolam HCl (Versed) 2 mg 1X ONCE IV Last administered on 01/31/17 13:01; Start 01/31/17 at 13:00; Stop 01/31/17 at 13:01; Status DC Non-Formulary Medication 1 ea QID OS Last administered on 02/02/17 21:25; Start 01/31/17 at 14:00 Non-Formulary Medication 1 ea QHS OS Last administered on 02/02/17 08:51; Start 01/31/17 at 21:00 Darbepoetin Joshua (Aranesp) 60 mcg WEEKLYHS SQ Last administered on 02/01/17 21: 25; Start 02/01/17 at 21:00 Insulin Detemir (Levemir) 10 units QHS SQ Last administered on 02/02/17 21:31; Start 02/02/17 at 21:00 Metoprolol Tartrate (Lopressor) 25 mg DAILY PO ; Start 02/03/17 at 09:00 Morphine Sulfate (Ms Contin) 20 mg BID PO ; Start 02/02/17 at 21:00; Stop at 21:00; Status DC Morphine Sulfate (Ms Contin) 15 mg BID PO Last administered on 02/02/17 21:23; Start 02/02/17 at 21:00 Naloxone HCl (Narcan) 0.2 mg 1X ONCE IV Last administered on 02/02/17 23:28; Start 02/02/17 at 23:30; Stop 02/02/17 at 23:31; Status DC Active Scripts Active Lasix (Furosemide) 80 Mg Tablet 1 Tab PO DAILY Reported Kmygba-Txorl-Yfpqpao Eye Ointm ([place]/Polymyx B Sulf/Dexameth) 3.5 Gm Oint...g. 3.5 Gm OS QHS Durezol (Difluprednate) 5 Ml Drops 1 Drop OS QID Aspir 81 (Aspirin) 81 Mg Tablet.dr 1 Tab PO DAILY Senokot (Sennosides) 8.6 Mg Tablet 3 Tab PO BID Morphine Sulfate Er (Morphine Sulfate) 60 Mg Cap.er.pel 60 Mg PO Metoprolol Tartrate 50 Mg Tablet 0.5 Tab PO DAILY Latanoprost 2.5 Ml Drops 1 Drop EACHEYE QHS Gemfibrozil 600 Mg Tablet 1 Tab PO BID Dorzolamide-Timolol Eye Drops (Dorzolamide Hcl/Timolol Maleat) 10 Ml Drops 1 Drop RIGHTEYE BID Lyrica (Pregabalin) 75 Mg Capsule 1 Cap PO BID Alprazolam 0.5 Mg Tablet 1 Tab PO TID Warfarin Sodium 4 Mg Tablet 1 Tab PO DAILY Fish Oil 1,000 Mg Capsule ([place]-3 Fatty Acids/Fish Oil) 1 Each Capsule 4 Each PO DAILY Pancrelipase Dr 5,000 Unit Cap (Lipase/Protease/Amylase) 1 Each Capsule.dr 4 Each PO Prilosec Otc (Omeprazole Magnesium) 20 Mg Tablet.dr 20 Mg PO DAILY Lyrica (Pregabalin) 25 Mg Capsule 50 Mg PO TID 30 Days Gemfibrozil 600 Mg Tablet 600 Mg PO BID Spironolactone 25 Mg Tablet 25 Mg PO DAILY Calcitriol 0.25 Mcg Capsule 0.25 Mcg PO DAILY Lantus (Insulin Glargine,Hum.rec.anlog) 100 Unit/1 Ml Vial 22 Unit SQ HS Humalog (Insulin Lispro) 100 Unit/1 Ml Vial 8 Unit SQ TID Folic Acid 1 Mg Tablet 2 Mg PO TID Ferosul (Ferrous Sulfate) 325 Mg Tablet 325 Mg PO Ropinirole Hcl 1 Mg Tablet 1 Mg PO HS Tamsulosin Hcl 0.4 Mg Cap.er.24h 0.8 Mg PO DAILY Travatan Z (Travoprost) 5 Ml Drops 5 Ml OP Vitals/I & O Vital Sign - Last 24 Hours 02/02/17 02/02/17 02/02/17 02/02/17 11:00 11:00 12:46 15:14 Temp 98.0 98.0 97.4 98.0 98.0 97.4 Pulse 72 70 Resp 22 16 B/P 121/60 126/56 Pulse Ox 98 98 O2 Delivery Room Air Room Air O2 Flow Rate 2.0 02/02/17 02/02/17 02/02/17 02/02/17 15:26 15:34 15:45 16:01 Temp 97.5 97.5 97.4 97.5 97.5 97.5 97.4 97.5 Pulse 70 70 71 70 Resp 15 16 15 15 B/P 150/43 152/62 135/49 145/50 02/02/17 02/02/17 02/02/17 02/02/17 17:30 19:48 20:00 21:23 Temp 98.6 98.6 Pulse 70 Resp 18 20 B/P 118/50 Pulse Ox 96 O2 Delivery Room Air Room Air Nasal Cannula Room Air O2 Flow Rate 2.5 2.5 02/02/17 02/03/17 02/03/17 02/03/17 23:25 00:15 01:02 01:25 Temp 96.4 96.4 Pulse 70 Resp 18 15 B/P 93/45 Pulse Ox 97 97 O2 Delivery Nasal Cannula BiPAP/CPAP BiPAP/CPAP BiPAP/CPAP O2 Flow Rate 2.0 02/03/17 02/03/17 02/03/17 02/03/17 02:56 03:04 04:56 07:00 Temp 98.0 98.0 98.0 98.0 Pulse 60 70 Resp 12 13 B/P 130/64 109/62 Pulse Ox 98 99 94 O2 Delivery BiPAP/CPAP BiPAP/CPAP BiPAP/CPAP BiPAP/CPAP 02/03/17 08:00 O2 Delivery Bi-pap O2 Flow Rate 2.0 Intake and Output 02/02/17 02/02/17 02/03/17 15:00 23:00 07:00 Intake Total 300 ml 1197 ml 0 ml Output Total 300 ml 150 ml Balance 300 ml 897 ml -150 ml CORBIN CHATMAN MD Feb 03, 2017 10:06
[2017-02-03] MEDS ORDERED: IV NORMAL SALINE 1000ML BAG 1,000 ML IV PRN (11:00)
--- NOTE | 2017-02-03 11:14 | PDOC ---
Dialysis Progress Note Dialysis Note Dialysis Note Seen on Hemodialysis, tolerating treatment Well Vitals on Hemodialysis: 107/54 70 18 afeb General Appearance: Awake: Alert Oriented x 0; drowsy Neck: No JVD or JVP Chest: CTA Zaheer Heart: S1 S2 Abdomen - Soft NTND Extremities - + Edema ARF: Dialysis as below F 180 NR 3.5 Hrs 3 K 2.5 Ca 140 Na 35 HC03 Qb 350 + Qd 500+ Heparin 0 Units Uf 0- 1 Kgs or to dry weight as tolerated May give 25-50 gms of 25% Albumin if needed to maintain Hemodynamic stability Treatment plan reviewed and discussed with aircraft detail draftsperson will dialyze in am again until AMS clears. ? Due to MS accumulation. D/w Dr Gilmore to minimize MS Vitals Vital Signs Vital Signs Date Time Temp Pulse Resp B/P Pulse Ox O2 Delivery O2 Flow Rate FiO2 02/03/17 10:44 98.1 70 12 117/56 98 Nasal Cannula 98.1 02/03/17 08:00 2.0 Labs Last Labs Laboratory Tests Test 02/01/17 11:17 02/01/17 16:24 02/01/17 18:25 02/01/17 21:18 Glucose (Fingerstick) 165mg/dL (70-99) 59mg/dL (70-99) 87mg/dL (70-99) Ammonia 11mcmol/L (11-34) Test 02/02/17 01:30 02/02/17 06:57 02/02/17 10:15 02/02/17 10:45 Urine Collection Type Unknown Urine Color Alison Urine Clarity Turbid Urine pH 5.5 Urine Specific [place] 1.020 Urine Protein >=300mg/dL (NEG-TRACE) Urine Glucose (UA) Negativemg/dL (NEG) Urine Ketones (Stick) Negativemg/dL (NEG) Urine Blood Large (NEG) Urine Nitrite Negative (NEG) Urine Bilirubin Small (NEG) Urine Urobilinogen Dipstick 0.2mg/dL (0.2 mg/dL) Urine Leukocyte Esterase Large (NEG) Urine RBC Tntc/HPF (0-2) Urine WBC Tntc/HPF (0-4) Urine Squamous Epithelial Cells Mod/LPF Urine Amorphous Sediment Present/HPF Urine Bacteria Moderate/HPF (0-FEW) Urine Hyaline Casts Moderate/HPF Glucose (Fingerstick) 95mg/dL (70-99) 169mg/dL (70-99) Prothrombin Time 40.2SEC (11.7-14.0) Prothromb Time International Ratio 4.5 (0.8-1.1) Sodium Level 134mmol/L (136-145) Potassium Level 5.3mmol/L (3.5-5.1) Chloride Level 97mmol/L (98-107) Carbon Dioxide Level 27mmol/L (21-32) Anion Gap 10 (6-14) Blood Urea Nitrogen 46mg/dL (8-26) Creatinine 3.4mg/dL (0.7-1.3) Estimated GFR (Cockcroft-Gault) 17.5 Glucose Level 180mg/dL (70-99) Calcium Level 8.3mg/dL (8.5-10.1) Test 02/02/17 16:00 02/02/17 17:26 02/02/17 20:42 02/02/17 22:57 Urine Collection Type Unknown Urine Color Alison Urine Clarity Cloudy Urine pH 5.0 Urine Specific [place] 1.020 Urine Protein 100mg/dL (NEG-TRACE) Urine Glucose (UA) Negativemg/dL (NEG) Urine Ketones (Stick) Negativemg/dL (NEG) Urine Blood Large (NEG) Urine Nitrite Negative (NEG) Urine Bilirubin Negative (NEG) Urine Urobilinogen Dipstick 1.0mg/dL (0.2 mg/dL) Urine Leukocyte Esterase Large (NEG) Urine RBC >40/HPF (0-2) Urine WBC >40/HPF (0-4) Urine Bacteria Many/HPF (0-FEW) Urine Hyaline Casts Moderate/HPF Urine Mucus Slight/LPF Glucose (Fingerstick) 164mg/dL (70-99) 217mg/dL (70-99) 200mg/dL (70-99) Test 02/03/17 05:05 02/03/17 07:52 Prothrombin Time 35.8SEC (11.7-14.0) Prothromb Time International Ratio 3.9 (0.8-1.1) Sodium Level 138mmol/L (136-145) Potassium Level 4.5mmol/L (3.5-5.1) Chloride Level 99mmol/L (98-107) Carbon Dioxide Level 28mmol/L (21-32) Anion Gap 11 (6-14) Blood Urea Nitrogen 37mg/dL (8-26) Creatinine 3.4mg/dL (0.7-1.3) Estimated GFR (Cockcroft-Gault) 17.5 Glucose Level 175mg/dL (70-99) Calcium Level 8.1mg/dL (8.5-10.1) Glucose (Fingerstick) 162mg/dL (70-99) Laboratory Tests Test 02/02/17 16:00 02/02/17 17:26 02/02/17 20:42 02/02/17 22:57 Urine Collection Type Unknown Urine Color Alison Urine Clarity Cloudy Urine pH 5.0 Urine Specific [place] 1.020 Urine Protein 100mg/dL (NEG-TRACE) Urine Glucose (UA) Negativemg/dL (NEG) Urine Ketones (Stick) Negativemg/dL (NEG) Urine Blood Large (NEG) Urine Nitrite Negative (NEG) Urine Bilirubin Negative (NEG) Urine Urobilinogen Dipstick 1.0mg/dL (0.2 mg/dL) Urine Leukocyte Esterase Large (NEG) Urine RBC >40/HPF (0-2) Urine WBC >40/HPF (0-4) Urine Bacteria Many/HPF (0-FEW) Urine Hyaline Casts Moderate/HPF Urine Mucus Slight/LPF Glucose (Fingerstick) 164mg/dL (70-99) 217mg/dL (70-99) 200mg/dL (70-99) Test 02/03/17 05:05 02/03/17 07:52 Prothrombin Time 35.8SEC (11.7-14.0) Prothromb Time International Ratio 3.9 (0.8-1.1) Sodium Level 138mmol/L (136-145) Potassium Level 4.5mmol/L (3.5-5.1) Chloride Level 99mmol/L (98-107) Carbon Dioxide Level 28mmol/L (21-32) Anion Gap 11 (6-14) Blood Urea Nitrogen 37mg/dL (8-26) Creatinine 3.4mg/dL (0.7-1.3) Estimated GFR (Cockcroft-Gault) 17.5 Glucose Level 175mg/dL (70-99) Calcium Level 8.1mg/dL (8.5-10.1) Glucose (Fingerstick) 162mg/dL (70-99) Assessment Assessment Problems Medical Problems: (1) Acute hyperkalemia Status: Acute (2) Acute renal failure Status: Acute Problems: Plan Plan of Care Problems Medical Problems: (1) Acute hyperkalemia Status: Acute (2) Acute renal failure Status: Acute RICHIE UPTON MD Feb 03, 2017 11:14
[2017-02-03] MEDS ORDERED: DIALYSIS PATIENT. MC PRN ×2 (11:15)
[2017-02-03] MEDS ORDERED: 0.9 % SODIUM CHLORIDE 10 ML DISP.SYRIN. IV PRN ×2 (11:15)
--- NOTE | 2017-02-03 11:57 | PDOC ---
Provider Note Provider Note dictated MAZIN CROWLEY MD Feb 03, 2017 11:57
[2017-02-03 12:22] LABS: HCO3 ABG 27 mmol/L (21-28); PCO2 ABG 57 mmHg (35-46); PH ABG 7.29 (7.35-7.45); PO2 ABG 88 mmHg (65-108); SAT O2 ABG 95 % (92-99)
--- NOTE | 2017-02-03 12:35 | CONS ---
DATE OF CONSULTATION: INDICATION REASON: Encephalopathy. HISTORY OF PRESENT ILLNESS: The patient is an 81-year-old male with a history of TIM on CKD. He has been undergoing dialysis. He takes chronic narcotics for low back pain. Rapid response was called last night due to his respiratory rate in the 6-7 range. He was given Narcan. His doses of narcotics were reduced. He is arousable. Follows commands. He says he really has no history of tobacco use. No chest pain, no cough, no fever, no chills. His chest x-ray on admission was clear. PAST MEDICAL HISTORY: Significant for AFib, CAD, CHF, hypertension, GA, hyperlipidemia and narcotic dependence. GERD, osteoarthritis, low back pain, chronic renal insufficiency and diabetes. PAST SURGICAL HISTORY: Tonsillectomy and pacemaker. FAMILY HISTORY: Heart disease. MEDICATIONS: All reviewed. He was taking MS Contin p.o. b.i.d. and then he was also on 30 mg p.o. b.i.d. dose ____ he was on p.r.n. oxycodone. REVIEW OF SYSTEMS: Twelve-point system obtained. Pertinent positives discussed in my history of present illness, otherwise noncontributory. All systems that were negative were reviewed as well. SOCIAL HISTORY: Nonsmoker. PHYSICAL EXAMINATION: GENERAL: He is awake, following commands. VITAL SIGNS: Blood pressure stable, afebrile, pulse ox ____ on 2 liters. NECK: Supple. LUNGS: Diminished breath sounds. CARDIOVASCULAR: Regular rate and rhythm. ABDOMEN: Soft. EXTREMITIES: With lower extremity edema. He has some ecchymosis in his upper chest. LABORATORY DATA: Reviewed. His BUN 37, creatinine 3.4, bicarbonate is 28. INR was 4.5 yesterday, now 3.9. White cell count ____, hemoglobin 9.0. IMPRESSION: 1. Acute toxic encephalopathy, most likely secondary to narcotic overdose. 2. No significant history of tobacco use. 3. Acute kidney injury on chronic kidney disease. 4. Clear chest x-ray. RECOMMENDATIONS: 1. Obtain ABGs. 2. Placed the patient on BiPAP, if it shows decompensated hypercapnia. 3. Narcotic doses have been minimized. Now, he is on oxycodone p.r.n. and MS Contin has been stopped. I would recommend to continue to keep the narcotics at the lowest dose as possible. 4. Continue dialysis per Nephrology. 5. Discussed with RN and RT and will follow along with you. MAZIN CROWLEY MD DR: JAILYN/elpidio JOB#: [id number] / [id number] CHICO
--- NOTE | 2017-02-03 13:40 | PDOC ---
PROGRESS NOTES Chief Complaint Chief Complaint 1. Oliguric, hyperkalemic renal failure POA, needing STAT initiation of HD ( first session 01/29/17), 2 TIM on CKD, maybe even ESRD now needing stat HD initiation 3. MEtabolic encephalopathy 4. chronic LE edema stable 5. CHF 4. Multivessel CAD s/p recent CABG 6. SSS with indwelling PPM 7. PAFIB; maintaining SR 8. Therapeutic INR on coumadin 9. Acute on chronic back pain, indwelling back stimulator - needs adjustment 10. DM2, on insulin 11. BPH 12. supratherapeutic INR with coumadin 13. AMS with hallucination 2/2 TIM , metabolic encephalopathy likely 14. acute resp failure with hypoventilation with opoids likely plan: 1. fu with renal, pt pulled out his rt IJ temp HD cath, will get a new one today 2. labs daily 3. cont home meds, on coumadin daily, INR daily, will hold if need to do a chest perm HD cath, fu with IR, RENAL 4. pain control, fu with dr. Kristen RUSSELL, ON insulin, decrease today, dc aspart, levemir change to 10u qhs refuse Rehab, with bad experience before, has HH. need to fu with renal to see if need a perm HD and set up outpt HD? uro consult for BPH, on flomax, add cetriaxone for ui with ash IR consult for HD perm Cath, HD daily now till tuesday. FFP 2 u on 02/02, 02/03. hold coumadin pulm consult. dc morphine pp bid. on percocet prn History of Present Illness History of Present Illness Numbers better after first session HD since Sat, new to pt Pt cant recall the details very involved in his care Only got 1 FFP yesterday (prior to HD cath insertion) (INR was 2,3 on warfarin for cardiac related issues) But HD cath inserted and now running second session HD I see that Hepatitis panel has been ordered- looking at OP HD set up now aware hallucination 02/02 rapid response night of 02/02, unresponsive,on bipap , 2/2 opoids likely lethargic 02/03 INR 4.5 to 3.9 02/03 Vitals Vitals Vital Signs Date Time Temp Pulse Resp B/P Pulse Ox O2 Delivery O2 Flow Rate FiO2 02/03/17 13:14 97.8 70 18 94/44 97.8 02/03/17 12:41 97 BiPAP/CPAP 02/03/17 08:00 2.0 Physical Exam General: Alert, Oriented X3, Cooperative, No acute distress Heart: Regular rate, Normal S1, Normal S2, No murmurs, Gallops Lungs: Clear Abdomen: Normal bowel sounds, Soft, No tenderness, No hepatosplenomegaly, No masses Extremities: No clubbing, No cyanosis, No edema, Normal pulses, No tenderness/ swelling Skin: No rashes, No breakdown, No significant lesion Labs LABS Laboratory Tests Test 02/02/17 16:00 02/02/17 17:26 02/02/17 20:42 02/02/17 22:57 Urine Collection Type Unknown Urine Color Alison Urine Clarity Cloudy Urine pH 5.0 Urine Specific Hamill 1.020 Urine Protein 100mg/dL (NEG-TRACE) Urine Glucose (UA) Negativemg/dL (NEG) Urine Ketones (Stick) Negativemg/dL (NEG) Urine Blood Large (NEG) Urine Nitrite Negative (NEG) Urine Bilirubin Negative (NEG) Urine Urobilinogen Dipstick 1.0mg/dL (0.2 mg/dL) Urine Leukocyte Esterase Large (NEG) Urine RBC >40/HPF (0-2) Urine WBC >40/HPF (0-4) Urine Bacteria Many/HPF (0-FEW) Urine Hyaline Casts Moderate/HPF Urine Mucus Slight/LPF Glucose (Fingerstick) 164mg/dL (70-99) 217mg/dL (70-99) 200mg/dL (70-99) Test 02/03/17 05:05 02/03/17 07:52 02/03/17 12:11 Prothrombin Time 35.8SEC (11.7-14.0) Prothromb Time International Ratio 3.9 (0.8-1.1) Sodium Level 138mmol/L (136-145) Potassium Level 4.5mmol/L (3.5-5.1) Chloride Level 99mmol/L (98-107) Carbon Dioxide Level 28mmol/L (21-32) Anion Gap 11 (6-14) Blood Urea Nitrogen 37mg/dL (8-26) Creatinine 3.4mg/dL (0.7-1.3) Estimated GFR (Cockcroft-Gault) 17.5 Glucose Level 175mg/dL (70-99) Calcium Level 8.1mg/dL (8.5-10.1) Glucose (Fingerstick) 162mg/dL (70-99) O2 Saturation 95% (92-99) Arterial Blood pH 7.29 (7.35-7.45) Arterial Blood pCO2 at Patient Temp 57mmHg (35-46) Arterial Blood pO2 at Patient Temp 88mmHg (65-108) Arterial Blood HCO3 27mmol/L (21-28) Arterial Blood Base Excess -1mmol/L (-3-3) FiO2 36.0 Review of Systems Review of Systems no fever, chills, sob or chest pain Assessment and Plan Assessmemt and Plan Problems Medical Problems: (1) Acute hyperkalemia Status: Acute (2) Acute renal failure Status: Acute Problems: Comment Review of Relevant I have reviewed the following items sarah (where applicable) has been applied. Labs Laboratory Tests Test 02/01/17 16:24 02/01/17 18:25 02/01/17 21:18 02/02/17 01:30 Glucose (Fingerstick) 59mg/dL (70-99) 87mg/dL (70-99) Ammonia 11mcmol/L (11-34) Urine Collection Type Unknown Urine Color Alison Urine Clarity Turbid Urine pH 5.5 Urine Specific Hamill 1.020 Urine Protein >=300mg/dL (NEG-TRACE) Urine Glucose (UA) Negativemg/dL (NEG) Urine Ketones (Stick) Negativemg/dL (NEG) Urine Blood Large (NEG) Urine Nitrite Negative (NEG) Urine Bilirubin Small (NEG) Urine Urobilinogen Dipstick 0.2mg/dL (0.2 mg/dL) Urine Leukocyte Esterase Large (NEG) Urine RBC Tntc/HPF (0-2) Urine WBC Tntc/HPF (0-4) Urine Squamous Epithelial Cells Mod/LPF Urine Amorphous Sediment Present/HPF Urine Bacteria Moderate/HPF (0-FEW) Urine Hyaline Casts Moderate/HPF Test 02/02/17 06:57 02/02/17 10:15 02/02/17 10:45 02/02/17 16:00 Glucose (Fingerstick) 95mg/dL (70-99) 169mg/dL (70-99) Prothrombin Time 40.2SEC (11.7-14.0) Prothromb Time International Ratio 4.5 (0.8-1.1) Sodium Level 134mmol/L (136-145) Potassium Level 5.3mmol/L (3.5-5.1) Chloride Level 97mmol/L (98-107) Carbon Dioxide Level 27mmol/L (21-32) Anion Gap 10 (6-14) Blood Urea Nitrogen 46mg/dL (8-26) Creatinine 3.4mg/dL (0.7-1.3) Estimated GFR (Cockcroft-Gault) 17.5 Glucose Level 180mg/dL (70-99) Calcium Level 8.3mg/dL (8.5-10.1) Urine Collection Type Unknown Urine Color Alison Urine Clarity Cloudy Urine pH 5.0 Urine Specific Hamill 1.020 Urine Protein 100mg/dL (NEG-TRACE) Urine Glucose (UA) Negativemg/dL (NEG) Urine Ketones (Stick) Negativemg/dL (NEG) Urine Blood Large (NEG) Urine Nitrite Negative (NEG) Urine Bilirubin Negative (NEG) Urine Urobilinogen Dipstick 1.0mg/dL (0.2 mg/dL) Urine Leukocyte Esterase Large (NEG) Urine RBC >40/HPF (0-2) Urine WBC >40/HPF (0-4) Urine Bacteria Many/HPF (0-FEW) Urine Hyaline Casts Moderate/HPF Urine Mucus Slight/LPF Test 02/02/17 17:26 02/02/17 20:42 02/02/17 22:57 02/03/17 05:05 Glucose (Fingerstick) 164mg/dL (70-99) 217mg/dL (70-99) 200mg/dL (70-99) Prothrombin Time 35.8SEC (11.7-14.0) Prothromb Time International Ratio 3.9 (0.8-1.1) Sodium Level 138mmol/L (136-145) Potassium Level 4.5mmol/L (3.5-5.1) Chloride Level 99mmol/L (98-107) Carbon Dioxide Level 28mmol/L (21-32) Anion Gap 11 (6-14) Blood Urea Nitrogen 37mg/dL (8-26) Creatinine 3.4mg/dL (0.7-1.3) Estimated GFR (Cockcroft-Gault) 17.5 Glucose Level 175mg/dL (70-99) Calcium Level 8.1mg/dL (8.5-10.1) Test 02/03/17 07:52 02/03/17 12:11 Glucose (Fingerstick) 162mg/dL (70-99) O2 Saturation 95% (92-99) Arterial Blood pH 7.29 (7.35-7.45) Arterial Blood pCO2 at Patient Temp 57mmHg (35-46) Arterial Blood pO2 at Patient Temp 88mmHg (65-108) Arterial Blood HCO3 27mmol/L (21-28) Arterial Blood Base Excess -1mmol/L (-3-3) FiO2 36.0 Laboratory Tests Test 02/02/17 16:00 02/02/17 17:26 02/02/17 20:42 02/02/17 22:57 Urine Collection Type Unknown Urine Color Alison Urine Clarity Cloudy Urine pH 5.0 Urine Specific Hamill 1.020 Urine Protein 100mg/dL (NEG-TRACE) Urine Glucose (UA) Negativemg/dL (NEG) Urine Ketones (Stick) Negativemg/dL (NEG) Urine Blood Large (NEG) Urine Nitrite Negative (NEG) Urine Bilirubin Negative (NEG) Urine Urobilinogen Dipstick 1.0mg/dL (0.2 mg/dL) Urine Leukocyte Esterase Large (NEG) Urine RBC >40/HPF (0-2) Urine WBC >40/HPF (0-4) Urine Bacteria Many/HPF (0-FEW) Urine Hyaline Casts Moderate/HPF Urine Mucus Slight/LPF Glucose (Fingerstick) 164mg/dL (70-99) 217mg/dL (70-99) 200mg/dL (70-99) Test 02/03/17 05:05 02/03/17 07:52 02/03/17 12:11 Prothrombin Time 35.8SEC (11.7-14.0) Prothromb Time International Ratio 3.9 (0.8-1.1) Sodium Level 138mmol/L (136-145) Potassium Level 4.5mmol/L (3.5-5.1) Chloride Level 99mmol/L (98-107) Carbon Dioxide Level 28mmol/L (21-32) Anion Gap 11 (6-14) Blood Urea Nitrogen 37mg/dL (8-26) Creatinine 3.4mg/dL (0.7-1.3) Estimated GFR (Cockcroft-Gault) 17.5 Glucose Level 175mg/dL (70-99) Calcium Level 8.1mg/dL (8.5-10.1) Glucose (Fingerstick) 162mg/dL (70-99) O2 Saturation 95% (92-99) Arterial Blood pH 7.29 (7.35-7.45) Arterial Blood pCO2 at Patient Temp 57mmHg (35-46) Arterial Blood pO2 at Patient Temp 88mmHg (65-108) Arterial Blood HCO3 27mmol/L (21-28) Arterial Blood Base Excess -1mmol/L (-3-3) FiO2 36.0 Microbiology 02/02/17 Urine Culture - Preliminary, Resulted 02/02/17 Urine Culture Result 1 (FADIA) - Preliminary, Resulted Medications Current Medications Calcium Gluconate 1,000 mg 1X ONCE IVP Last administered on 01/29/17 14:19; Start 01/29/17 at 13:45; Stop 01/29/17 at 13:46; Status DC Dextrose 25 gm 1X ONCE IV Last administered on 01/29/17 14:29; Start 01/29/17 at 13:45; Stop 01/29/17 at 13:46; Status DC Insulin Human Regular (Novolin R Vial) 10 unit 1X ONCE IV Last administered on 01/29/17 14:32; Start 01/29/17 at 13:45; Stop 01/29/17 at 13:46; Status DC Furosemide (Lasix) 40 mg 1X ONCE IVP Last administered on 01/29/17 14:33; Start 01/29/17 at 13:45; Stop 01/29/17 at 13:46; Status DC Oxycodone/ Acetaminophen (Percocet 5/325) 1 tab 1X ONCE PO Last administered on 01/29/17 14:18; Start 01/29/17 at 14:00; Stop 01/29/17 at 14:02; Status DC Ondansetron HCl (Zofran) 4 mg PRN Q8HRS PRN IV NAUSEA/VOMITING; Start 01/29/17 at 14:15; Stop 01/29/17 at 14:43; Status DC Fentanyl Citrate 50 mcg 50 mcg PRN Q2HR PRN IV PAIN Last administered on 11:04; Start 01/29/17 at 14:15; Stop 01/30/17 at 14:14; Status DC Sodium Chloride (Iv Sodium Chloride 0.9% 1000ml Bag) 1,000 ml @ 75 mls/hr [id number] IV Last administered on 01/29/17 22:15; Start 01/29/17 at 14:12; Stop at 14:11; Status DC Acetaminophen (Tylenol) 650 mg PRN Q4HRS PRN PO FEVER; Start 01/29/17 at 14:15; Stop 01/30/17 at 14:14; Status DC Ondansetron HCl (Zofran) 4 mg PRN Q6HRS PRN IV NAUSEA/VOMITING; Start 01/29/17 at 14:39 Alprazolam (Xanax) 0.5 mg PRN TID PRN PO nerves Last administered on 02/02/17 21:23; Start 01/29/17 at 14:45 Calcitriol (Rocaltrol) 0.25 mcg DAILY PO Last administered on 02/02/17 08:46; Start 01/30/17 at 09:00 Dorzolamide/ Timolol (Cosopt) 1 drop BID OU Last administered on 02/02/17 21:24 ; Start 01/29/17 at 21:00 Ferrous Sulfate (Feosol) 325 mg DAILY PO Last administered on 02/02/17 08:43; Start 01/30/17 at 09:00 Folic Acid (Folic Acid) 2 mg TID PO Last administered on 02/02/17 21:23; Start 01/29/17 at 15:30 Gemfibrozil (Lopid) 600 mg BIDBFRMEAL PO Last administered on 02/02/17 17:29; Start 01/29/17 at 16:30 Latanoprost (Xalatan) 1 drop QHS OU Last administered on 02/02/17 08:49; Start 01/29/17 at 21:00 Amylase/Lipase/ Protease (Zenpep 5,000) 4 cap DAILY PO Last administered on 02/02 09:40; Start 01/30/17 at 09:00 Metoprolol Tartrate (Lopressor) 50 mg DAILY PO Last administered on 02/02/17 08 :46; Start 01/30/17 at 09:00; Stop 02/02/17 at 11:13; Status DC Fish Oil (Fish Oil) 1,000 mg DAILY PO Last administered on 02/02/17 08:45; Start 01/30/17 at 09:00 Pregabalin (Lyrica) 75 mg BID PO Last administered on 02/02/17 21:22; Start 01/29/17 at 21:00 Ropinirole HCl (Requip) 1 mg HS PO Last administered on 02/02/17 21:23; Start 01/29/17 at 21:00 Sennosides (Senna) 8.6 mg BID PO Last administered on 02/02/17 21:23; Start 01/29/17 at 21:00 Spironolactone (Aldactone) 25 mg DAILY PO Last administered on 02/02/17 08:43; Start 01/30/17 at 09:00; Stop 02/02/17 at 11:13; Status DC Tamsulosin HCl (Flomax) 0.8 mg DAILY PO Last administered on 02/02/17 08:43; Start 01/30/17 at 09:00 Insulin Detemir (Levemir) 22 units QHS SQ ; Start 01/29/17 at 21:00; Stop at 11:22; Status DC Insulin Aspart (Novolog) 8 units TIDBFRMEAL SQ Last administered on 01/30/17 08 :48; Start 01/29/17 at 16:30; Stop 01/30/17 at 11:22; Status DC Pantoprazole Sodium (Protonix) 40 mg DAILYAC PO Last administered on 02/02/17 08:46; Start 01/30/17 at 07:30 Morphine Sulfate (Ms Contin) 30 mg BID PO Last administered on 02/02/17 08:46; Start 01/29/17 at 21:00; Stop 02/02/17 at 12:11; Status DC Phytonadione (Mephyton) 5 mg 1X ONCE PO ; Start 01/29/17 at 15:30; Stop 01/29/17 at 15:31; Status DC Insulin Aspart (Novolog) 0-9 UNITS TIDWMEALS SQ Last administered on 02/01/17 11:50; Start 01/29/17 at 17:00 Dextrose 12.5 gm 12.5 gm PRN Q15MIN PRN IV SEE COMMENTS Last administered on 18:40; Start 01/29/17 at 14:45 Sodium Chloride (Iv Sodium Chloride 0.9% 500ml Bag) 500 ml @ 500 mls/hr 1X ONCE IV Last administered on 01/29/17 15:15; Start 01/29/17 at 15:15; Stop at 16:14; Status DC Heparin Sodium (Porcine) 64108 unit 10,000 unit STK-MED ONCE .ROUTE ; Start 01/29 at 15:30; Stop 01/29/17 at 15:31; Status DC Heparin Sodium/ Sodium Chloride 500 ml @ As Directed STK-MED ONCE .ROUTE ; Start 01/29/17 at 15:30; Stop 01/29/17 at 15:31; Status DC Lidocaine/ Epinephrine (Xylocaine 1%-Epi 1:100,000) 20 ml STK-MED ONCE .ROUTE ; Start 01/29/17 at 15:31; Stop 01/29/17 at 15:32; Status DC Lidocaine/ Epinephrine (Xylocaine 1%-Epi 1:100,000) 4 ml 1X ONCE IJ Last administered on 01/29/17 16:30; Start 01/29/17 at 16:00; Stop 01/29/17 at 16:01; Status DC Heparin Sodium/ Sodium Chloride 60 unit 1X ONCE IV Last administered on 16:30; Start 01/29/17 at 16:00; Stop 01/29/17 at 16:01; Status DC Heparin Sodium (Porcine) 2500 unit 2,500 unit 1X ONCE INT CAT Last administered on 01/29/17 16:30; Start 01/29/17 at 16:00; Stop 01/29/17 at 16:01; Status DC Sodium Chloride 1,000 ml @ 1,000 mls/hr Q1H PRN IV hypotension; Start 01/29/17 at 17:31; Stop 01/29/17 at 23:30; Status DC Albumin Human (Albuminar) 200 ml @ 200 mls/hr 1X PRN PRN IV Hypotension; Start 01/29/17 at 17:45; Stop 01/29/17 at 23:30; Status DC Sodium Chloride (Normal Saline Flush) 10 ml 1X PRN PRN IV AP 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; Start 01/29/17 at 17:45; Stop 01/29/17 at 23:30; Status DC Sodium Chloride (Normal Saline Flush) 10 ml 1X PRN PRN IV CUP SETTER LOCKSTITCH 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; Start 01/29/17 at 17:45; Stop 01/29/17 at 23:30; Status DC Info (PHARMACY MONITORING -- do not chart) 1 each PRN DAILY PRN MC SEE COMMENTS ; Start 01/29/17 at 17:45 Info (PHARMACY MONITORING -- do not chart) 1 each PRN DAILY PRN MC SEE COMMENTS ; Start 01/29/17 at 17:45; Status UNV Aspirin (Ecotrin) 81 mg DAILY PO Last administered on 02/02/17 08:43; Start 01/30/17 at 09:00 Warfarin Sodium (Coumadin) 4 mg DAILY16 PO Last administered on 02/01/17 16:40 ; Start 01/29/17 at 19:00; Stop 02/02/17 at 12:11; Status DC Warfarin Sodium (Coumadin Per Physician) 1 each PRN DAILY PRN MC SEE COMMENTS Last administered on 02/01/17 14:01; Start 01/29/17 at 18:30 Insulin Aspart (Novolog) 5 units TIDBFRMEAL SQ Last administered on 02/01/17 11 :50; Start 01/30/17 at 11:30; Stop 02/02/17 at 11:01; Status DC Insulin Detemir 18 units 18 units QHS SQ Last administered on 01/31/17 21:31; Start 01/30/17 at 21:00; Stop 02/02/17 at 11:01; Status DC Sodium Chloride (Iv Sodium Chloride 0.9% 1000ml Bag) 1,000 ml @ 1,000 mls/hr Q1H PRN IV hypotension; Start 01/30/17 at 11:38; Stop 01/30/17 at 17:37; Status DC Sodium Chloride (Normal Saline Flush) 10 ml 1X PRN PRN IV AP 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; Start 01/30/17 at 11:45; Stop 01/31/17 at 11:44; Status DC Sodium Chloride (Normal Saline Flush) 10 ml 1X PRN PRN IV CUP SETTER LOCKSTITCH 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; Start 01/30/17 at 11:45; Stop 01/31/17 at 11:44; Status DC Info (PHARMACY MONITORING -- do not chart) 1 each PRN DAILY PRN MC SEE COMMENTS ; Start 01/30/17 at 11:45; Status UNV Info (PHARMACY MONITORING -- do not chart) 1 each PRN DAILY PRN MC SEE COMMENTS ; Start 01/30/17 at 11:45; Status UNV Oxycodone/ Acetaminophen (Percocet 5/325) 1 tab PRN Q4HRS PRN PO PAIN Last administered on 02/02/17 17:30; Start 01/30/17 at 18:45 Oxycodone/ Acetaminophen (Percocet 10/325) 1 tab PRN Q4HRS PRN PO PAIN Last administered on 02/01/17 14:03; Start 01/30/17 at 18:45; Stop 02/02/17 at 12:11; Status DC Insulin Aspart (Novolog) 9 units 1X ONCE SQ Last administered on 01/30/17 21: 57; Start 01/30/17 at 21:30; Stop 01/30/17 at 21:31; Status DC Lidocaine/Sodium Bicarbonate (Buffered Lidocaine 1%) 3 ml 1X ONCE IJ Last administered on 01/31/17 12:15; Start 01/31/17 at 12:15; Stop 01/31/17 at 12:16; Status DC Heparin Sodium/ Sodium Chloride 60 unit 1X ONCE IV Last administered on 13:02; Start 01/31/17 at 12:15; Stop 01/31/17 at 12:16; Status DC Heparin Sodium (Porcine) 2,500 unit 1X ONCE INT CAT Last administered on 13:02; Start 01/31/17 at 12:15; Stop 01/31/17 at 12:16; Status DC Heparin Sodium (Porcine) 10,000 unit STK-MED ONCE .ROUTE ; Start 01/31/17 at 12: 18; Stop 01/31/17 at 12:19; Status DC Fentanyl Citrate (Fentanyl 2ml Vial) 100 mcg STK-MED ONCE .ROUTE ; Start at 12:29; Stop 01/31/17 at 12:30; Status DC Midazolam HCl (Versed) 2 mg STK-MED ONCE .ROUTE ; Start 01/31/17 at 12:29; Stop 01/31/17 at 12:30; Status DC Midazolam HCl (Versed) 2 mg 1X ONCE IV Last administered on 01/31/17 13:01; Start 01/31/17 at 13:00; Stop 01/31/17 at 13:01; Status DC Non-Formulary Medication 1 ea QID OS Last administered on 02/02/17 21:25; Start 01/31/17 at 14:00 Non-Formulary Medication 1 ea QHS OS Last administered on 02/02/17 08:51; Start 01/31/17 at 21:00 Darbepoetin Joshua (Aranesp) 60 mcg WEEKLYHS SQ Last administered on 02/01/17 21: 25; Start 02/01/17 at 21:00 Insulin Detemir (Levemir) 10 units QHS SQ Last administered on 02/02/17 21:31; Start 02/02/17 at 21:00 Metoprolol Tartrate (Lopressor) 25 mg DAILY PO ; Start 02/03/17 at 09:00 Morphine Sulfate (Ms Contin) 20 mg BID PO ; Start 02/02/17 at 21:00; Stop at 21:00; Status DC Morphine Sulfate (Ms Contin) 15 mg BID PO Last administered on 02/02/17 21:23; Start 02/02/17 at 21:00; Stop 02/03/17 at 11:23; Status DC Naloxone HCl 0.2 mg 0.2 mg 1X ONCE IV Last administered on 02/02/17 23:28; Start 02/02/17 at 23:30; Stop 02/02/17 at 23:31; Status DC Sodium Chloride (Iv Sodium Chloride 0.9% 1000ml Bag) 1,000 ml @ 1,000 mls/hr Q1H PRN IV hypotension; Start 02/03/17 at 11:00; Stop 02/03/17 at 23:00 Sodium Chloride (Normal Saline Flush) 10 ml 1X PRN PRN IV AP 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; Start 02/03/17 at 11:15; Stop 02/03/17 at 23:00 Sodium Chloride (Normal Saline Flush) 10 ml 1X PRN PRN IV CUP SETTER LOCKSTITCH 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; Start 3/9/17 at 11:15; Stop 02/03/17 at 23:00 Info (PHARMACY MONITORING -- do not chart) 1 each PRN DAILY PRN MC SEE COMMENTS ; Start 02/03/17 at 11:15; Status UNV Info (PHARMACY MONITORING -- do not chart) 1 each PRN DAILY PRN MC SEE COMMENTS ; Start 02/03/17 at 11:15; Status UNV Active Scripts Active Lasix (Furosemide) 80 Mg Tablet 1 Tab PO DAILY Reported Mgonpp-Byuoe-Qzcgbsm Eye Ointm ([place]/Polymyx B Sulf/Dexameth) 3.5 Gm Oint...g. 3.5 Gm OS QHS Durezol (Difluprednate) 5 Ml Drops 1 Drop OS QID Aspir 81 (Aspirin) 81 Mg Tablet.dr 1 Tab PO DAILY Senokot (Sennosides) 8.6 Mg Tablet 3 Tab PO BID Morphine Sulfate Er (Morphine Sulfate) 60 Mg Cap.er.pel 60 Mg PO Metoprolol Tartrate 50 Mg Tablet 0.5 Tab PO DAILY Latanoprost 2.5 Ml Drops 1 Drop EACHEYE QHS Gemfibrozil 600 Mg Tablet 1 Tab PO BID Dorzolamide-Timolol Eye Drops (Dorzolamide Hcl/Timolol Maleat) 10 Ml Drops 1 Drop RIGHTEYE BID Lyrica (Pregabalin) 75 Mg Capsule 1 Cap PO BID Alprazolam 0.5 Mg Tablet 1 Tab PO TID Warfarin Sodium 4 Mg Tablet 1 Tab PO DAILY Fish Oil 1,000 Mg Capsule ([place]-3 Fatty Acids/Fish Oil) 1 Each Capsule 4 Each PO DAILY Pancrelipase Dr 5,000 Unit Cap (Lipase/Protease/Amylase) 1 Each Capsule. 4 Each PO Prilosec Otc (Omeprazole Magnesium) 20 Mg Tablet. 20 Mg PO DAILY Lyrica (Pregabalin) 25 Mg Capsule 50 Mg PO TID 30 Days Gemfibrozil 600 Mg Tablet 600 Mg PO BID Spironolactone 25 Mg Tablet 25 Mg PO DAILY Calcitriol 0.25 Mcg Capsule 0.25 Mcg PO DAILY Lantus (Insulin Glargine,Hum.rec.anlog) 100 Unit/1 Ml Vial 22 Unit SQ HS Humalog (Insulin Lispro) 100 Unit/1 Ml Vial 8 Unit SQ TID Folic Acid 1 Mg Tablet 2 Mg PO TID Ferosul (Ferrous Sulfate) 325 Mg Tablet 325 Mg PO Ropinirole Hcl 1 Mg Tablet 1 Mg PO HS Tamsulosin Hcl 0.4 Mg Cap.er.24h 0.8 Mg PO DAILY Travatan Z (Travoprost) 5 Ml Drops 5 Ml OP Vitals/I & O Vital Sign - Last 24 Hours 02/02/17 02/02/17 02/02/17 02/02/17 15:14 15:26 15:34 15:45 Temp 97.4 97.5 97.5 97.4 97.4 97.5 97.5 97.4 Pulse 70 70 70 71 Resp 16 15 16 15 B/P 126/56 150/43 152/62 135/49 02/02/17 02/02/17 02/02/17 02/02/17 16:01 17:30 19:48 20:00 Temp 97.5 98.6 97.5 98.6 Pulse 70 70 Resp 15 18 B/P 145/50 118/50 Pulse Ox 96 O2 Delivery Room Air Room Air Nasal Cannula O2 Flow Rate 2.5 2.5 02/02/17 02/02/17 02/03/17 02/03/17 21:23 23:25 00:15 01:02 Temp 96.4 96.4 Pulse 70 Resp 20 18 B/P 93/45 Pulse Ox 97 97 O2 Delivery Room Air Nasal Cannula BiPAP/CPAP BiPAP/CPAP O2 Flow Rate 2.0 02/03/17 02/03/17 02/03/17 02/03/17 01:25 02:56 03:04 04:56 Temp 98.0 98.0 Pulse 60 Resp 15 12 B/P 130/64 Pulse Ox 98 99 O2 Delivery BiPAP/CPAP BiPAP/CPAP BiPAP/CPAP BiPAP/CPAP 02/03/17 02/03/17 02/03/17 02/03/17 07:00 08:00 10:44 12:41 Temp 98.0 98.1 98.0 98.1 Pulse 70 70 Resp 13 12 B/P 109/62 117/56 Pulse Ox 94 98 97 O2 Delivery BiPAP/CPAP Bi-pap Nasal Cannula BiPAP/CPAP O2 Flow Rate 2.0 02/03/17 13:14 Temp 97.8 97.8 Pulse 70 Resp 18 B/P 94/44 Intake and Output 02/02/17 02/02/1717 15:00 23:00 07:00 Intake Total 300 ml 1197 ml 0 ml Output Total 300 ml 150 ml Balance 300 ml 897 ml -150 ml JAMES QUAN MD Feb 03, 2017 13:40
[2017-02-03] MEDS: CEFTRIAXONE SODIUM 1 GM in IV NORMAL SALINE 50ML 50 ML IV SCH (14:00)
--- NOTE | 2017-02-03 16:55 | RAD ---
EXAM: Chest one view. HISTORY: Respiratory failure. COMPARISON: 01/29/2017. FINDINGS: A frontal view of the chest is obtained. A right-sided pacemaker has its leads in the right atrium and right ventricle. There are changes of coronary artery bypass grafting. Spinal stimulator electrodes are noted. There is a fixation screw in the left glenoid. A right internal jugular hemodialysis catheter is noted. There are no confluent infiltrates. There is no pneumothorax or pleural effusion. The heart is mildly enlarged. IMPRESSION: 1. Mild cardiomegaly.
[2017-02-03] MEDS: LATANOPROST 0.005% OPHTH SOLUTION 2.5ML BOTTLE. OU SCH (21:08)
[2017-02-03] MEDS: [UNRECOGNIZED DRUG - OTHER] OS SCH (21:08)
[2017-02-03] MEDS: DEXAMETHASONE OS SCH (21:08)
[2017-02-03] MEDS: NEOMYCIN OS SCH (21:08)
[2017-02-03] MEDS: rOPINIRole 1 MG TABLET. PO SCH (21:09)
[2017-02-03] MEDS: ALPRAZOLAM 0.5 MG TABLET PO PRN (21:11)
[2017-02-03] MEDS: INSULIN DETEMIR 300 UNITS/3 ML INSULN.PEN. SQ SCH (21:17)
[2017-02-04 03:14] VITALS: BP 111/48
[2017-02-04 05:46] LABS: BASO % 1 % (0-3); EOS % 1 % (0-3); HEMOGLOBIN 7.6 g/dL (13.0-17.5); LYMPH # 0.9 x10^3/uL (1.0-4.8); LYMPH % 20 % (24-48); MEAN CORPUSCULAR HEMOGLOBIN 33 pg (25-35); MEAN CORPUSCULAR HGB CONC 33 g/dL (31-37); MEAN CORPUSCULAR VOLUME 99 fL (79-100); MONO % 12 % (0-9); NEUT % 66 % (31-73); PLATELET COUNT 53 x10^3/uL (140-400); RED BLOOD COUNT 2.33 x10^6/uL (4.30-5.70); RED CELL DISTRIBUTION WIDTH 14.6 % (11.5-14.5); WHITE BLOOD COUNT 4.6 x10^3/uL (4.0-11.0)
[2017-02-04 07:00] VITALS: BP 132/40
[2017-02-04 07:05] VITALS: BP 129/61
[2017-02-04] MEDS: DUREZOL OS SCH ×4 (07:46→21:01)
[2017-02-04] MEDS: DORZOLAMIDE/TIMOLOL 2%/0.5% OPHTH SOLUTION 10ML BOTTLE. OU SCH ×2 (07:46→21:01)
[2017-02-04] MEDS: INSULIN ASPART 300 UNITS/3 ML INSULN.PEN SQ SCH ×3 (07:47→17:30)
[2017-02-04] MEDS: SENNOSIDES 8.6 MG TABLET PO SCH ×2 (07:47→21:00)
[2017-02-04] MEDS: PANTOPRAZOLE 40 MG TABLET. PO SCH (07:47)
[2017-02-04] MEDS: ASPIRIN ENTERIC COATED 81 MG TABLET.DR. PO SCH (07:48)
[2017-02-04] MEDS: FERROUS SULFATE 325 MG TABLET PO SCH (07:48)
[2017-02-04] MEDS: OMEGA-3 FATTY ACIDS/FISH OIL 1,000 MG CAPSULE. PO SCH (07:48)
[2017-02-04] MEDS: LIPASE/PROTEAS/AMYLASE 5/17/27 CAPSULE.DR. PO SCH (07:48)
[2017-02-04] MEDS: TAMSULOSIN 0.4 MG CAP.ER.24H. PO SCH (07:48)
[2017-02-04] MEDS: CALCITRIOL 0.25 MCG CAPSULE PO SCH (07:48)
[2017-02-04] MEDS: FOLIC ACID 1 MG TABLET PO SCH ×3 (07:49→21:00)
[2017-02-04] MEDS: PREGABALIN 75 MG CAPSULE PO SCH ×2 (07:49→21:00)
[2017-02-04] MEDS: METOPROLOL TART IMMED RELEASE 25 MG TABLET PO SCH (07:49)
[2017-02-04] MEDS: GEMFIBROZIL 600 MG TABLET. PO SCH ×2 (07:49→17:28)
[2017-02-04] MEDS ORDERED: IV NORMAL SALINE 1000ML BAG 1,000 ML IV PRN ×2 (07:53)
[2017-02-04] MEDS ORDERED: 0.9 % SODIUM CHLORIDE 10 ML DISP.SYRIN. IV PRN ×2 (08:00)
[2017-02-04] MEDS ORDERED: ACETAMINOPHEN 500 MG TABLET PO PRN (08:00)
[2017-02-04] MEDS ORDERED: LABETALOL 20 MG/4 ML DISP.SYRIN. IVP PRN (08:00)
[2017-02-04] MEDS ORDERED: DIPHENHYDRAMINE 50 MG/ML VIAL IV PRN ×2 (08:00)
[2017-02-04] MEDS ORDERED: ALBUMIN HUMAN 25% 200 ML IV PRN (08:00)
[2017-02-04] MEDS ORDERED: DIALYSIS PATIENT. MC PRN (08:00)
[2017-02-04 08:37] LABS: INR 2.6 (0.8-1.1); PROTHROMBIN TIME PATIENT 26.4 SEC (11.7-14.0)
[2017-02-04] MEDS ORDERED: MAGNESIUM SULFATE 2GM 50 ML IV PRN (09:00)
--- NOTE | 2017-02-04 09:20 | PDOC ---
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 ? Due to MS accumulation. D/w Dr Gilmore to minimize MS Permacath once INR is < 1.5 Vitals Vital Signs Vital Signs Date Time Temp Pulse Resp B/P Pulse Ox O2 Delivery O2 Flow Rate FiO2 02/04/17 08:00 Nasal Cannula 2.0 02/04/17 07:49 70 111/48 02/04/17 07:15 95 02/04/17 07:05 98.1 16 98.1 Labs Last Labs Laboratory Tests Test 02/02/17 10:15 02/02/17 10:45 02/02/17 16:00 02/02/17 17:26 Prothrombin Time 40.2SEC (11.7-14.0) Prothromb Time International Ratio 4.5 (0.8-1.1) Sodium Level 134mmol/L (136-145) Potassium Level 5.3mmol/L (3.5-5.1) Chloride Level 97mmol/L (98-107) Carbon Dioxide Level 27mmol/L (21-32) Anion Gap 10 (6-14) Blood Urea Nitrogen 46mg/dL (8-26) Creatinine 3.4mg/dL (0.7-1.3) Estimated GFR (Cockcroft-Gault) 17.5 Glucose Level 180mg/dL (70-99) Calcium Level 8.3mg/dL (8.5-10.1) Glucose (Fingerstick) 169mg/dL (70-99) 164mg/dL (70-99) Urine Collection Type Unknown Urine Color Alison Urine Clarity Cloudy Urine pH 5.0 Urine Specific Almond 1.020 Urine Protein 100mg/dL (NEG-TRACE) Urine Glucose (UA) Negativemg/dL (NEG) Urine Ketones (Stick) Negativemg/dL (NEG) Urine Blood Large (NEG) Urine Nitrite Negative (NEG) Urine Bilirubin Negative (NEG) Urine Urobilinogen Dipstick 1.0mg/dL (0.2 mg/dL) Urine Leukocyte Esterase Large (NEG) Urine RBC >40/HPF (0-2) Urine WBC >40/HPF (0-4) Urine Bacteria Many/HPF (0-FEW) Urine Hyaline Casts Moderate/HPF Urine Mucus Slight/LPF Test 02/02/17 20:42 02/02/17 22:57 02/03/17 05:05 02/03/17 07:52 Glucose (Fingerstick) 217mg/dL (70-99) 200mg/dL (70-99) 162mg/dL (70-99) Prothrombin Time 35.8SEC (11.7-14.0) Prothromb Time International Ratio 3.9 (0.8-1.1) Sodium Level 138mmol/L (136-145) Potassium Level 4.5mmol/L (3.5-5.1) Chloride Level 99mmol/L (98-107) Carbon Dioxide Level 28mmol/L (21-32) Anion Gap 11 (6-14) Blood Urea Nitrogen 37mg/dL (8-26) Creatinine 3.4mg/dL (0.7-1.3) Estimated GFR (Cockcroft-Gault) 17.5 Glucose Level 175mg/dL (70-99) Calcium Level 8.1mg/dL (8.5-10.1) Test 02/03/17 12:11 02/03/17 16:25 02/03/17 20:26 02/04/17 05:00 O2 Saturation 95% (92-99) Arterial Blood pH 7.29 (7.35-7.45) Arterial Blood pCO2 at Patient Temp 57mmHg (35-46) Arterial Blood pO2 at Patient Temp 88mmHg (65-108) Arterial Blood HCO3 27mmol/L (21-28) Arterial Blood Base Excess -1mmol/L (-3-3) FiO2 36.0 Glucose (Fingerstick) 125mg/dL (70-99) 187mg/dL (70-99) White Blood Count 4.6x10^3/uL (4.0-11.0) Red Blood Count 2.33x10^6/uL (4.30-5.70) Hemoglobin 7.6g/dL (13.0-17.5) Hematocrit 23.0% (39.0-53.0) Mean Corpuscular Volume 99fL (79-100) Mean Corpuscular Hemoglobin 33pg (25-35) Mean Corpuscular Hemoglobin Concent 33g/dL (31-37) Red Cell Distribution Width 14.6% (11.5-14.5) Platelet Count 53x10^3/uL (140-400) Neutrophils (%) (Auto) 66% (31-73) Lymphocytes (%) (Auto) 20% (24-48) Monocytes (%) (Auto) 12% (0-9) Eosinophils (%) (Auto) 1% (0-3) Basophils (%) (Auto) 1% (0-3) Neutrophils # (Auto) 3.1x10^3uL (1.8-7.7) Lymphocytes # (Auto) 0.9x10^3/uL (1.0-4.8) Monocytes # (Auto) 0.6x10^3/uL (0.0-1.1) Eosinophils # (Auto) 0.0x10^3/uL (0.0-0.7) Basophils # (Auto) 0.0x10^3/uL (0.0-0.2) Test 02/04/17 07:47 02/04/17 08:10 Glucose (Fingerstick) 119mg/dL (70-99) Prothrombin Time 26.4SEC (11.7-14.0) Prothromb Time International Ratio 2.6 (0.8-1.1) Laboratory Tests Test 02/03/17 12:11 02/03/17 16:25 02/03/17 20:26 02/04/17 05:00 O2 Saturation 95% (92-99) Arterial Blood pH 7.29 (7.35-7.45) Arterial Blood pCO2 at Patient Temp 57mmHg (35-46) Arterial Blood pO2 at Patient Temp 88mmHg (65-108) Arterial Blood HCO3 27mmol/L (21-28) Arterial Blood Base Excess -1mmol/L (-3-3) FiO2 36.0 Glucose (Fingerstick) 125mg/dL (70-99) 187mg/dL (70-99) White Blood Count 4.6x10^3/uL (4.0-11.0) Red Blood Count 2.33x10^6/uL (4.30-5.70) Hemoglobin 7.6g/dL (13.0-17.5) Hematocrit 23.0% (39.0-53.0) Mean Corpuscular Volume 99fL (79-100) Mean Corpuscular Hemoglobin 33pg (25-35) Mean Corpuscular Hemoglobin Concent 33g/dL (31-37) Red Cell Distribution Width 14.6% (11.5-14.5) Platelet Count 53x10^3/uL (140-400) Neutrophils (%) (Auto) 66% (31-73) Lymphocytes (%) (Auto) 20% (24-48) Monocytes (%) (Auto) 12% (0-9) Eosinophils (%) (Auto) 1% (0-3) Basophils (%) (Auto) 1% (0-3) Neutrophils # (Auto) 3.1x10^3uL (1.8-7.7) Lymphocytes # (Auto) 0.9x10^3/uL (1.0-4.8) Monocytes # (Auto) 0.6x10^3/uL (0.0-1.1) Eosinophils # (Auto) 0.0x10^3/uL (0.0-0.7) Basophils # (Auto) 0.0x10^3/uL (0.0-0.2) Test 02/04/17 07:47 02/04/17 08:10 Glucose (Fingerstick) 119mg/dL (70-99) Prothrombin Time 26.4SEC (11.7-14.0) Prothromb Time International Ratio 2.6 (0.8-1.1) Assessment Assessment Problems Medical Problems: (1) Acute hyperkalemia Status: Acute (2) Acute renal failure Status: Acute Problems: Plan Plan of Care Problems Medical Problems: (1) Acute hyperkalemia Status: Acute (2) Acute renal failure Status: Acute RICHIE UPTON MD Feb 04, 2017 09:20
--- NOTE | 2017-02-04 10:12 | PDOC ---
PROGRESS NOTES Subjective Subjective He c/o low back and hip pain. Objective Objective Vital Signs Date Time Temp Pulse Resp B/P Pulse Ox O2 Delivery O2 Flow Rate FiO2 02/04/17 08:00 Nasal Cannula 2.0 02/04/17 07:49 70 111/48 02/04/17 07:15 95 02/04/17 07:05 98.1 16 98.1 Intake and Output 02/04/17 07:00 Intake Total 250 ml Output Total 151 ml Balance 99 ml Intake Oral 0 ml IV Total 80 ml Blood Product IV Normal Saline Flush 170 ml Output Urine Total 150 ml Stool Total 1 ml Physical Exam Physical Exam He is alert and supine on dialysis table. Assessment Assessment Problems Medical Problems: (1) Acute hyperkalemia Status: Acute (2) Acute renal failure Status: Acute Plan Plan of Care To get him up as tolerated. Comment Review of Relevant I have reviewed the following items sarah (where applicable) has been applied. Labs Laboratory Tests Test 02/02/17 10:15 02/02/17 10:45 02/02/17 16:00 02/02/17 17:26 Prothrombin Time 40.2SEC (11.7-14.0) Prothromb Time International Ratio 4.5 (0.8-1.1) Sodium Level 134mmol/L (136-145) Potassium Level 5.3mmol/L (3.5-5.1) Chloride Level 97mmol/L (98-107) Carbon Dioxide Level 27mmol/L (21-32) Anion Gap 10 (6-14) Blood Urea Nitrogen 46mg/dL (8-26) Creatinine 3.4mg/dL (0.7-1.3) Estimated GFR (Cockcroft-Gault) 17.5 Glucose Level 180mg/dL (70-99) Calcium Level 8.3mg/dL (8.5-10.1) Glucose (Fingerstick) 169mg/dL (70-99) 164mg/dL (70-99) Urine Collection Type Unknown Urine Color Alison Urine Clarity Cloudy Urine pH 5.0 Urine Specific [place] 1.020 Urine Protein 100mg/dL (NEG-TRACE) Urine Glucose (UA) Negativemg/dL (NEG) Urine Ketones (Stick) Negativemg/dL (NEG) Urine Blood Large (NEG) Urine Nitrite Negative (NEG) Urine Bilirubin Negative (NEG) Urine Urobilinogen Dipstick 1.0mg/dL (0.2 mg/dL) Urine Leukocyte Esterase Large (NEG) Urine RBC >40/HPF (0-2) Urine WBC >40/HPF (0-4) Urine Bacteria Many/HPF (0-FEW) Urine Hyaline Casts Moderate/HPF Urine Mucus Slight/LPF Test 02/02/17 20:42 02/02/17 22:57 02/03/17 05:05 02/03/17 07:52 Glucose (Fingerstick) 217mg/dL (70-99) 200mg/dL (70-99) 162mg/dL (70-99) Prothrombin Time 35.8SEC (11.7-14.0) Prothromb Time International Ratio 3.9 (0.8-1.1) Sodium Level 138mmol/L (136-145) Potassium Level 4.5mmol/L (3.5-5.1) Chloride Level 99mmol/L (98-107) Carbon Dioxide Level 28mmol/L (21-32) Anion Gap 11 (6-14) Blood Urea Nitrogen 37mg/dL (8-26) Creatinine 3.4mg/dL (0.7-1.3) Estimated GFR (Cockcroft-Gault) 17.5 Glucose Level 175mg/dL (70-99) Calcium Level 8.1mg/dL (8.5-10.1) Test 02/03/17 12:11 02/03/17 16:25 02/03/17 20:26 02/04/17 05:00 O2 Saturation 95% (92-99) Arterial Blood pH 7.29 (7.35-7.45) Arterial Blood pCO2 at Patient Temp 57mmHg (35-46) Arterial Blood pO2 at Patient Temp 88mmHg (65-108) Arterial Blood HCO3 27mmol/L (21-28) Arterial Blood Base Excess -1mmol/L (-3-3) FiO2 36.0 Glucose (Fingerstick) 125mg/dL (70-99) 187mg/dL (70-99) White Blood Count 4.6x10^3/uL (4.0-11.0) Red Blood Count 2.33x10^6/uL (4.30-5.70) Hemoglobin 7.6g/dL (13.0-17.5) Hematocrit 23.0% (39.0-53.0) Mean Corpuscular Volume 99fL (79-100) Mean Corpuscular Hemoglobin 33pg (25-35) Mean Corpuscular Hemoglobin Concent 33g/dL (31-37) Red Cell Distribution Width 14.6% (11.5-14.5) Platelet Count 53x10^3/uL (140-400) Neutrophils (%) (Auto) 66% (31-73) Lymphocytes (%) (Auto) 20% (24-48) Monocytes (%) (Auto) 12% (0-9) Eosinophils (%) (Auto) 1% (0-3) Basophils (%) (Auto) 1% (0-3) Neutrophils # (Auto) 3.1x10^3uL (1.8-7.7) Lymphocytes # (Auto) 0.9x10^3/uL (1.0-4.8) Monocytes # (Auto) 0.6x10^3/uL (0.0-1.1) Eosinophils # (Auto) 0.0x10^3/uL (0.0-0.7) Basophils # (Auto) 0.0x10^3/uL (0.0-0.2) Test 02/04/17 07:47 02/04/17 08:10 Glucose (Fingerstick) 119mg/dL (70-99) Prothrombin Time 26.4SEC (11.7-14.0) Prothromb Time International Ratio 2.6 (0.8-1.1) Laboratory Tests Test 02/03/17 12:11 02/03/17 16:25 02/03/17 20:26 02/04/17 05:00 O2 Saturation 95% (92-99) Arterial Blood pH 7.29 (7.35-7.45) Arterial Blood pCO2 at Patient Temp 57mmHg (35-46) Arterial Blood pO2 at Patient Temp 88mmHg (65-108) Arterial Blood HCO3 27mmol/L (21-28) Arterial Blood Base Excess -1mmol/L (-3-3) FiO2 36.0 Glucose (Fingerstick) 125mg/dL (70-99) 187mg/dL (70-99) White Blood Count 4.6x10^3/uL (4.0-11.0) Red Blood Count 2.33x10^6/uL (4.30-5.70) Hemoglobin 7.6g/dL (13.0-17.5) Hematocrit 23.0% (39.0-53.0) Mean Corpuscular Volume 99fL (79-100) Mean Corpuscular Hemoglobin 33pg (25-35) Mean Corpuscular Hemoglobin Concent 33g/dL (31-37) Red Cell Distribution Width 14.6% (11.5-14.5) Platelet Count 53x10^3/uL (140-400) Neutrophils (%) (Auto) 66% (31-73) Lymphocytes (%) (Auto) 20% (24-48) Monocytes (%) (Auto) 12% (0-9) Eosinophils (%) (Auto) 1% (0-3) Basophils (%) (Auto) 1% (0-3) Neutrophils # (Auto) 3.1x10^3uL (1.8-7.7) Lymphocytes # (Auto) 0.9x10^3/uL (1.0-4.8) Monocytes # (Auto) 0.6x10^3/uL (0.0-1.1) Eosinophils # (Auto) 0.0x10^3/uL (0.0-0.7) Basophils # (Auto) 0.0x10^3/uL (0.0-0.2) Test 02/04/17 07:47 02/04/17 08:10 Glucose (Fingerstick) 119mg/dL (70-99) Prothrombin Time 26.4SEC (11.7-14.0) Prothromb Time International Ratio 2.6 (0.8-1.1) Microbiology 02/02/17 Urine Culture - Preliminary, Resulted 02/02/17 Urine Culture Result 1 (FADIA) - Preliminary, Resulted Medications Current Medications Calcium Gluconate 1,000 mg 1X ONCE IVP Last administered on 01/29/17 14:19; Start 01/29/17 at 13:45; Stop 01/29/17 at 13:46; Status DC Dextrose 25 gm 1X ONCE IV Last administered on 01/29/17 14:29; Start 01/29/17 at 13:45; Stop 01/29/17 at 13:46; Status DC Insulin Human Regular (Novolin R Vial) 10 unit 1X ONCE IV Last administered on 01/29/17 14:32; Start 01/29/17 at 13:45; Stop 01/29/17 at 13:46; Status DC Furosemide (Lasix) 40 mg 1X ONCE IVP Last administered on 01/29/17 14:33; Start 01/29/17 at 13:45; Stop 01/29/17 at 13:46; Status DC Oxycodone/ Acetaminophen (Percocet 5/325) 1 tab 1X ONCE PO Last administered on 01/29/17 14:18; Start 01/29/17 at 14:00; Stop 01/29/17 at 14:02; Status DC Ondansetron HCl (Zofran) 4 mg PRN Q8HRS PRN IV NAUSEA/VOMITING; Start 01/29/17 at 14:15; Stop 01/29/17 at 14:43; Status DC Fentanyl Citrate 50 mcg 50 mcg PRN Q2HR PRN IV PAIN Last administered on 11:04; Start 01/29/17 at 14:15; Stop 01/30/17 at 14:14; Status DC Sodium Chloride (Iv Sodium Chloride 0.9% 1000ml Bag) 1,000 ml @ 75 mls/hr [id number] IV Last administered on 01/29/17 22:15; Start 01/29/17 at 14:12; Stop at 14:11; Status DC Acetaminophen (Tylenol) 650 mg PRN Q4HRS PRN PO FEVER; Start 01/29/17 at 14:15; Stop 01/30/17 at 14:14; Status DC Ondansetron HCl (Zofran) 4 mg PRN Q6HRS PRN IV NAUSEA/VOMITING; Start 01/29/17 at 14:39 Alprazolam (Xanax) 0.5 mg PRN TID PRN PO nerves Last administered on 02/03/17 21:11; Start 01/29/17 at 14:45 Calcitriol (Rocaltrol) 0.25 mcg DAILY PO Last administered on 02/04/17 07:48; Start 01/30/17 at 09:00 Dorzolamide/ Timolol (Cosopt) 1 drop BID OU Last administered on 02/04/17 07: 46; Start 01/29/17 at 21:00 Ferrous Sulfate (Feosol) 325 mg DAILY PO Last administered on 02/04/17 07:48; Start 01/30/17 at 09:00 Folic Acid (Folic Acid) 2 mg TID PO Last administered on 02/04/17 07:49; Start 01/29/17 at 15:30 Gemfibrozil (Lopid) 600 mg BIDBFRMEAL PO Last administered on 02/04/17 07:49; Start 01/29/17 at 16:30 Latanoprost (Xalatan) 1 drop QHS OU Last administered on 02/03/17 21:08; Start 01/29/17 at 21:00 Amylase/Lipase/ Protease (Zenpep 5,000) 4 cap DAILY PO Last administered on 07:48; Start 01/30/17 at 09:00 Metoprolol Tartrate (Lopressor) 50 mg DAILY PO Last administered on 02/02/17 08 :46; Start 01/30/17 at 09:00; Stop 02/02/17 at 11:13; Status DC Fish Oil (Fish Oil) 1,000 mg DAILY PO Last administered on 02/04/17 07:48; Start 01/30/17 at 09:00 Pregabalin (Lyrica) 75 mg BID PO Last administered on 02/04/17 07:49; Start at 21:00 Ropinirole HCl (Requip) 1 mg HS PO Last administered on 02/03/17 21:09; Start 01/29/17 at 21:00 Sennosides (Senna) 8.6 mg BID PO Last administered on 02/04/17 07:47; Start at 21:00 Spironolactone (Aldactone) 25 mg DAILY PO Last administered on 02/02/17 08:43; Start 01/30/17 at 09:00; Stop 02/02/17 at 11:13; Status DC Tamsulosin HCl (Flomax) 0.8 mg DAILY PO Last administered on 02/04/17 07:48; Start 01/30/17 at 09:00 Insulin Detemir (Levemir) 22 units QHS SQ ; Start 01/29/17 at 21:00; Stop at 11:22; Status DC Insulin Aspart (Novolog) 8 units TIDBFRMEAL SQ Last administered on 01/30/17 08 :48; Start 01/29/17 at 16:30; Stop 01/30/17 at 11:22; Status DC Pantoprazole Sodium (Protonix) 40 mg DAILYAC PO Last administered on 02/04/17 07:47; Start 01/30/17 at 07:30 Morphine Sulfate (Ms Contin) 30 mg BID PO Last administered on 02/02/17 08:46; Start 01/29/17 at 21:00; Stop 02/02/17 at 12:11; Status DC Phytonadione (Mephyton) 5 mg 1X ONCE PO ; Start 01/29/17 at 15:30; Stop 01/29/17 at 15:31; Status DC Insulin Aspart (Novolog) 0-9 UNITS TIDWMEALS SQ Last administered on 02/01/17 11:50; Start 01/29/17 at 17:00 Dextrose 12.5 gm 12.5 gm PRN Q15MIN PRN IV SEE COMMENTS Last administered on 18:40; Start 01/29/17 at 14:45 Sodium Chloride (Iv Sodium Chloride 0.9% 500ml Bag) 500 ml @ 500 mls/hr 1X ONCE IV Last administered on 01/29/17 15:15; Start 01/29/17 at 15:15; Stop at 16:14; Status DC Heparin Sodium (Porcine) 95406 unit 10,000 unit STK-MED ONCE .ROUTE ; Start 01/29 at 15:30; Stop 01/29/17 at 15:31; Status DC Heparin Sodium/ Sodium Chloride 500 ml @ As Directed STK-MED ONCE .ROUTE ; Start 01/29/17 at 15:30; Stop 01/29/17 at 15:31; Status DC Lidocaine/ Epinephrine (Xylocaine 1%-Epi 1:100,000) 20 ml STK-MED ONCE .ROUTE ; Start 01/29/17 at 15:31; Stop 01/29/17 at 15:32; Status DC Lidocaine/ Epinephrine (Xylocaine 1%-Epi 1:100,000) 4 ml 1X ONCE IJ Last administered on 01/29/17 16:30; Start 01/29/17 at 16:00; Stop 01/29/17 at 16:01; Status DC Heparin Sodium/ Sodium Chloride 60 unit 1X ONCE IV Last administered on 16:30; Start 01/29/17 at 16:00; Stop 01/29/17 at 16:01; Status DC Heparin Sodium (Porcine) 2500 unit 2,500 unit 1X ONCE INT CAT Last administered on 01/29/17 16:30; Start 01/29/17 at 16:00; Stop 01/29/17 at 16:01; Status DC Sodium Chloride 1,000 ml @ 1,000 mls/hr Q1H PRN IV hypotension; Start 01/29/17 at 17:31; Stop 01/29/17 at 23:30; Status DC Albumin Human (Albuminar) 200 ml @ 200 mls/hr 1X PRN PRN IV Hypotension; Start 01/29/17 at 17:45; Stop 01/29/17 at 23:30; Status DC Sodium Chloride (Normal Saline Flush) 10 ml 1X PRN PRN IV AP 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; Start 01/29/17 at 17:45; Stop 01/29/17 at 23:30; Status DC Sodium Chloride (Normal Saline Flush) 10 ml 1X PRN PRN IV TOOL POLISHER 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; Start 01/29/17 at 17:45; Stop 01/29/17 at 23:30; Status DC Info (PHARMACY MONITORING -- do not chart) 1 each PRN DAILY PRN MC SEE COMMENTS ; Start 01/29/17 at 17:45 Info (PHARMACY MONITORING -- do not chart) 1 each PRN DAILY PRN MC SEE COMMENTS ; Start 01/29/17 at 17:45; Status UNV Aspirin (Ecotrin) 81 mg DAILY PO Last administered on 02/04/17 07:48; Start at 09:00 Warfarin Sodium (Coumadin) 4 mg DAILY16 PO Last administered on 02/01/17 16:40 ; Start 01/29/17 at 19:00; Stop 02/02/17 at 12:11; Status DC Warfarin Sodium (Coumadin Per Physician) 1 each PRN DAILY PRN MC SEE COMMENTS Last administered on 02/03/17 13:55; Start 01/29/17 at 18:30 Insulin Aspart (Novolog) 5 units TIDBFRMEAL SQ Last administered on 02/01/17 11 :50; Start 01/30/17 at 11:30; Stop 02/02/17 at 11:01; Status DC Insulin Detemir 18 units 18 units QHS SQ Last administered on 01/31/17 21:31; Start 01/30/17 at 21:00; Stop 02/02/17 at 11:01; Status DC Sodium Chloride (Iv Sodium Chloride 0.9% 1000ml Bag) 1,000 ml @ 1,000 mls/hr Q1H PRN IV hypotension; Start 01/30/17 at 11:38; Stop 01/30/17 at 17:37; Status DC Sodium Chloride (Normal Saline Flush) 10 ml 1X PRN PRN IV AP 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; Start 01/30/17 at 11:45; Stop 01/31/17 at 11:44; Status DC Sodium Chloride (Normal Saline Flush) 10 ml 1X PRN PRN IV TOOL POLISHER 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; Start 01/30/17 at 11:45; Stop 01/31/17 at 11:44; Status DC Info (PHARMACY MONITORING -- do not chart) 1 each PRN DAILY PRN MC SEE COMMENTS ; Start 01/30/17 at 11:45; Status UNV Info (PHARMACY MONITORING -- do not chart) 1 each PRN DAILY PRN MC SEE COMMENTS ; Start 01/30/17 at 11:45; Status UNV Oxycodone/ Acetaminophen (Percocet 5/325) 1 tab PRN Q4HRS PRN PO PAIN Last administered on 02/02/17 17:30; Start 01/30/17 at 18:45 Oxycodone/ Acetaminophen (Percocet 10/325) 1 tab PRN Q4HRS PRN PO PAIN Last administered on 02/01/17 14:03; Start 01/30/17 at 18:45; Stop 02/02/17 at 12:11; Status DC Insulin Aspart (Novolog) 9 units 1X ONCE SQ Last administered on 01/30/17 21: 57; Start 01/30/17 at 21:30; Stop 01/30/17 at 21:31; Status DC Lidocaine/Sodium Bicarbonate (Buffered Lidocaine 1%) 3 ml 1X ONCE IJ Last administered on 01/31/17 12:15; Start 01/31/17 at 12:15; Stop 01/31/17 at 12:16; Status DC Heparin Sodium/ Sodium Chloride 60 unit 1X ONCE IV Last administered on 13:02; Start 01/31/17 at 12:15; Stop 01/31/17 at 12:16; Status DC Heparin Sodium (Porcine) 2,500 unit 1X ONCE INT CAT Last administered on 13:02; Start 01/31/17 at 12:15; Stop 01/31/17 at 12:16; Status DC Heparin Sodium (Porcine) 10,000 unit STK-MED ONCE .ROUTE ; Start 01/31/17 at 12: 18; Stop 01/31/17 at 12:19; Status DC Fentanyl Citrate (Fentanyl 2ml Vial) 100 mcg STK-MED ONCE .ROUTE ; Start at 12:29; Stop 01/31/17 at 12:30; Status DC Midazolam HCl (Versed) 2 mg STK-MED ONCE .ROUTE ; Start 01/31/17 at 12:29; Stop 01/31/17 at 12:30; Status DC Midazolam HCl (Versed) 2 mg 1X ONCE IV Last administered on 01/31/17 13:01; Start 01/31/17 at 13:00; Stop 01/31/17 at 13:01; Status DC Non-Formulary Medication 1 ea QID OS Last administered on 02/04/17 07:46; Start 01/31/17 at 14:00 Non-Formulary Medication 1 ea QHS OS Last administered on 02/03/17 21:08; Start 01/31/17 at 21:00 Darbepoetin Joshua (Aranesp) 60 mcg WEEKLYHS SQ Last administered on 02/01/17 21: 25; Start 02/01/17 at 21:00 Insulin Detemir (Levemir) 10 units QHS SQ Last administered on 02/03/17 21:17; Start 02/02/17 at 21:00 Metoprolol Tartrate (Lopressor) 25 mg DAILY PO Last administered on 02/04/17 07:49; Start 02/03/17 at 09:00 Morphine Sulfate (Ms Contin) 20 mg BID PO ; Start 02/02/17 at 21:00; Stop at 21:00; Status DC Morphine Sulfate (Ms Contin) 15 mg BID PO Last administered on 02/02/17 21:23; Start 02/02/17 at 21:00; Stop 02/03/17 at 11:23; Status DC Naloxone HCl 0.2 mg 0.2 mg 1X ONCE IV Last administered on 02/02/17 23:28; Start 02/02/17 at 23:30; Stop 02/02/17 at 23:31; Status DC Sodium Chloride (Iv Sodium Chloride 0.9% 1000ml Bag) 1,000 ml @ 1,000 mls/hr Q1H PRN IV hypotension; Start 02/03/17 at 11:00; Stop 02/03/17 at 23:00; Status DC Sodium Chloride (Normal Saline Flush) 10 ml 1X PRN PRN IV AP 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; Start 02/03/17 at 11:15; Stop 02/03/17 at 23:00; Status DC Sodium Chloride (Normal Saline Flush) 10 ml 1X PRN PRN IV TOOL POLISHER 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; Start 02/03/17 at 11:15; Stop 02/03/17 at 23:00; Status DC Info (PHARMACY MONITORING -- do not chart) 1 each PRN DAILY PRN MC SEE COMMENTS ; Start 02/03/17 at 11:15; Status UNV Info 1 each 1 each PRN DAILY PRN MC SEE COMMENTS; Start 02/03/17 at 11:15; Status UNV Ceftriaxone Sodium 1 gm/ Sodium Chloride 50 ml @ 100 mls/hr Q24H IV Last administered on 02/03/17 14:00; Start 02/03/17 at 14:00 Sodium Chloride 1,000 ml @ 1,000 mls/hr Q1H PRN IV hypotension; Start 02/04/17 at 07:53; Stop 02/04/17 at 13:52 Albumin Human (Albuminar) 200 ml @ 200 mls/hr 1X PRN PRN IV Hypotension; Start 02/04/17 at 08:00; Stop 02/04/17 at 13:59 Acetaminophen (Tylenol) 500 mg 1X PRN PRN PO MILD PAIN / TEMP Last administered on 02/04/17 09:32; Start 02/04/17 at 08:00; Stop 02/05/17 at 07:59 Diphenhydramine HCl (Benadryl) 25 mg 1X PRN PRN IV ITCHING; Start 02/04/17 at 08:00; Stop 02/05/17 at 07:59 Diphenhydramine HCl (Benadryl) 25 mg 1X PRN PRN IV ITCHING; Start 02/04/17 at 08:00; Stop 02/05/17 at 07:59 Sodium Chloride (Normal Saline Flush) 10 ml 1X PRN PRN IV AP 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; Start 02/04/17 at 08:00; Stop 02/05/17 at 07:59 Sodium Chloride (Normal Saline Flush) 10 ml 1X PRN PRN IV TOOL POLISHER 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; Start 02/04/17 at 08:00; Stop 02/05/17 at 07:59 Labetalol HCl 10 mg 10 mg PRN Q1HR PRN IVP SBP > 180; Start 02/04/17 at 08:00; Stop 02/05/17 at 07:59 Sodium Chloride (Iv Sodium Chloride 0.9% 1000ml Bag) 1,000 ml @ 400 mls/hr Q2H30M PRN IV PATENCY; Start 02/04/17 at 07:53; Stop 02/04/17 at 19:52 Info 1 each 1 each PRN DAILY PRN MC SEE COMMENTS; Start 02/04/17 at 08:00; Status UNV Magnesium Sulfate/ Dextrose (Magnesium Sulfate PREMIX 2GM) 50 ml @ 25 mls/hr PRN DAILY PRN IV for Mag < 1.7 on am labs; Start 02/04/17 at 09:00 Active Scripts Active Lasix (Furosemide) 80 Mg Tablet 1 Tab PO DAILY Reported Nlpwlo-Aneat-Rrvslid Eye Ointm ([place]/Polymyx B Sulf/Dexameth) 3.5 Gm Oint...g. 3.5 Gm OS QHS Durezol (Difluprednate) 5 Ml Drops 1 Drop OS QID Aspir 81 (Aspirin) 81 Mg Tablet.dr 1 Tab PO DAILY Senokot (Sennosides) 8.6 Mg Tablet 3 Tab PO BID Morphine Sulfate Er (Morphine Sulfate) 60 Mg Cap.er.pel 60 Mg PO Metoprolol Tartrate 50 Mg Tablet 0.5 Tab PO DAILY Latanoprost 2.5 Ml Drops 1 Drop EACHEYE QHS Gemfibrozil 600 Mg Tablet 1 Tab PO BID Dorzolamide-Timolol Eye Drops (Dorzolamide Hcl/Timolol Maleat) 10 Ml Drops 1 Drop RIGHTEYE BID Lyrica (Pregabalin) 75 Mg Capsule 1 Cap PO BID Alprazolam 0.5 Mg Tablet 1 Tab PO TID Warfarin Sodium 4 Mg Tablet 1 Tab PO DAILY Fish Oil 1,000 Mg Capsule ([place]-3 Fatty Acids/Fish Oil) 1 Each Capsule 4 Each PO DAILY Pancrelipase Dr 5,000 Unit Cap (Lipase/Protease/Amylase) 1 Each Capsule.dr 4 Each PO Prilosec Otc (Omeprazole Magnesium) 20 Mg Tablet.dr 20 Mg PO DAILY Lyrica (Pregabalin) 25 Mg Capsule 50 Mg PO TID 30 Days Gemfibrozil 600 Mg Tablet 600 Mg PO BID Spironolactone 25 Mg Tablet 25 Mg PO DAILY Calcitriol 0.25 Mcg Capsule 0.25 Mcg PO DAILY Lantus (Insulin Glargine,Hum.rec.anlog) 100 Unit/1 Ml Vial 22 Unit SQ HS Humalog (Insulin Lispro) 100 Unit/1 Ml Vial 8 Unit SQ TID Folic Acid 1 Mg Tablet 2 Mg PO TID Ferosul (Ferrous Sulfate) 325 Mg Tablet 325 Mg PO Ropinirole Hcl 1 Mg Tablet 1 Mg PO HS Tamsulosin Hcl 0.4 Mg Cap.er.24h 0.8 Mg PO DAILY Travatan Z (Travoprost) 5 Ml Drops 5 Ml OP Vitals/I & O Vital Sign - Last 24 Hours 02/03/17 02/03/17 02/03/17 02/03/17 10:44 12:41 13:14 13:30 Temp 98.1 97.8 97.6 98.1 97.8 97.6 Pulse 70 70 70 Resp 11 14 18 B/P 117/56 94/44 125/59 Pulse Ox 98 97 O2 Delivery Nasal Cannula BiPAP/CPAP 02/03/17 02/03/17 02/03/17 02/03/17 13:36 13:50 14:00 15:53 Temp 97.6 97.8 97.8 98.1 97.6 97.8 97.8 98.1 Pulse 70 70 70 101 Resp 18 18 18 18 B/P 128/60 135/61 137/68 138/57 Pulse Ox 93 O2 Delivery Nasal Cannula O2 Flow Rate 2.0 02/03/17 02/03/17 02/03/1702/03/17 19:47 20:09 21:06 23:16 Temp 97.9 98.5 97.9 98.5 Pulse 74 70 Resp 16 16 B/P 128/38 121/52 Pulse Ox 95 97 97 O2 Delivery Nasal Cannula Nasal Cannula BiPAP/CPAP BiPAP/CPAP O2 Flow Rate 2.5 2.0 02/03/17 02/04/17 02/04/17 02/04/17 23:31 01:31 03:14 04:21 Temp 99.0 99.0 Pulse 70 Resp 16 B/P 111/48 Pulse Ox 98 98 96 98 O2 Delivery BiPAP/CPAP BiPAP/CPAP BiPAP/CPAP BiPAP/CPAP 02/04/17 02/04/17 02/04/17 02/04/17 07:05 07:15 07:49 08:00 Temp 98.1 98.1 Pulse 88 70 Resp 16 B/P 129/61 111/48 Pulse Ox 99 95 O2 Delivery Nasal Cannula BiPAP/CPAP Nasal Cannula O2 Flow Rate 2.0 2.0 Intake and Output 02/03/17 02/03/17 02/04/17 15:00 23:00 07:00 Intake Total 170 ml 80 ml 0 ml Output Total 101 ml 50 ml Balance 170 ml -21 ml -50 ml CORBIN CHATMAN MD Feb 04, 2017 10:12
[2017-02-04 10:36] LABS: CALCIUM 8.2 mg/dL (8.5-10.1); CREATININE 2.8 mg/dL (0.7-1.3); GFR 21.9
[2017-02-04 11:05] LABS: HCO3 ABG 29 mmol/L (21-28); PCO2 ABG 45 mmHg (35-46); PH ABG 7.43 (7.35-7.45); PO2 ABG 105 mmHg (65-108); SAT O2 ABG 97 % (92-99)
[2017-02-04 11:15] LABS: FIO2 ABG 28
--- NOTE | 2017-02-04 12:00 | PDOC ---
PULMONARY PROGRESS NOTES Subjective awake, slept on BIPAP Vitals Vital Signs Date Time Temp Pulse Resp B/P Pulse Ox O2 Delivery O2 Flow Rate FiO2 02/04/17 08:00 Nasal Cannula 2.0 02/04/17 07:49 70 111/48 02/04/17 07:15 95 02/04/17 07:05 98.1 16 98.1 General: Alert, No acute distress Lungs: Clear Cardiovascular: S1, S2 Abdomen: Soft Neuro Exam: Alert Extremities: Other (1+edema) Skin: Warm Labs Laboratory Tests Test 02/02/17 16:00 02/02/17 17:26 02/02/17 20:42 02/02/17 22:57 Urine Collection Type Unknown Urine Color Alison Urine Clarity Cloudy Urine pH 5.0 Urine Specific Felicity 1.020 Urine Protein 100mg/dL (NEG-TRACE) Urine Glucose (UA) Negativemg/dL (NEG) Urine Ketones (Stick) Negativemg/dL (NEG) Urine Blood Large (NEG) Urine Nitrite Negative (NEG) Urine Bilirubin Negative (NEG) Urine Urobilinogen Dipstick 1.0mg/dL (0.2 mg/dL) Urine Leukocyte Esterase Large (NEG) Urine RBC >40/HPF (0-2) Urine WBC >40/HPF (0-4) Urine Bacteria Many/HPF (0-FEW) Urine Hyaline Casts Moderate/HPF Urine Mucus Slight/LPF Glucose (Fingerstick) 164mg/dL (70-99) 217mg/dL (70-99) 200mg/dL (70-99) Test 02/03/17 05:05 02/03/17 07:52 02/03/17 12:11 02/03/17 16:25 Prothrombin Time 35.8SEC (11.7-14.0) Prothromb Time International Ratio 3.9 (0.8-1.1) Sodium Level 138mmol/L (136-145) Potassium Level 4.5mmol/L (3.5-5.1) Chloride Level 99mmol/L (98-107) Carbon Dioxide Level 28mmol/L (21-32) Anion Gap 11 (6-14) Blood Urea Nitrogen 37mg/dL (8-26) Creatinine 3.4mg/dL (0.7-1.3) Estimated GFR (Cockcroft-Gault) 17.5 Glucose Level 175mg/dL (70-99) Calcium Level 8.1mg/dL (8.5-10.1) Glucose (Fingerstick) 162mg/dL (70-99) 125mg/dL (70-99) O2 Saturation 95% (92-99) Arterial Blood pH 7.29 (7.35-7.45) Arterial Blood pCO2 at Patient Temp 57mmHg (35-46) Arterial Blood pO2 at Patient Temp 88mmHg (65-108) Arterial Blood HCO3 27mmol/L (21-28) Arterial Blood Base Excess -1mmol/L (-3-3) FiO2 36.0 Test 02/03/17 20:26 02/04/17 05:00 02/04/17 07:47 02/04/17 08:10 Glucose (Fingerstick) 187mg/dL (70-99) 119mg/dL (70-99) White Blood Count 4.6x10^3/uL (4.0-11.0) Red Blood Count 2.33x10^6/uL (4.30-5.70) Hemoglobin 7.6g/dL (13.0-17.5) Hematocrit 23.0% (39.0-53.0) Mean Corpuscular Volume 99fL (79-100) Mean Corpuscular Hemoglobin 33pg (25-35) Mean Corpuscular Hemoglobin Concent 33g/dL (31-37) Red Cell Distribution Width 14.6% (11.5-14.5) Platelet Count 53x10^3/uL (140-400) Neutrophils (%) (Auto) 66% (31-73) Lymphocytes (%) (Auto) 20% (24-48) Monocytes (%) (Auto) 12% (0-9) Eosinophils (%) (Auto) 1% (0-3) Basophils (%) (Auto) 1% (0-3) Neutrophils # (Auto) 3.1x10^3uL (1.8-7.7) Lymphocytes # (Auto) 0.9x10^3/uL (1.0-4.8) Monocytes # (Auto) 0.6x10^3/uL (0.0-1.1) Eosinophils # (Auto) 0.0x10^3/uL (0.0-0.7) Basophils # (Auto) 0.0x10^3/uL (0.0-0.2) Sodium Level 138mmol/L (136-145) Potassium Level 4.0mmol/L (3.5-5.1) Chloride Level 99mmol/L (98-107) Carbon Dioxide Level 29mmol/L (21-32) Anion Gap 10 (6-14) Blood Urea Nitrogen 35mg/dL (8-26) Creatinine 2.8mg/dL (0.7-1.3) Estimated GFR (Cockcroft-Gault) 21.9 Glucose Level 111mg/dL (70-99) Calcium Level 8.2mg/dL (8.5-10.1) Prothrombin Time 26.4SEC (11.7-14.0) Prothromb Time International Ratio 2.6 (0.8-1.1) Test 02/04/17 11:00 O2 Saturation 97% (92-99) Arterial Blood pH 7.43 (7.35-7.45) Arterial Blood pCO2 at Patient Temp 45mmHg (35-46) Arterial Blood pO2 at Patient Temp 105mmHg (65-108) Arterial Blood HCO3 29mmol/L (21-28) Arterial Blood Base Excess 4mmol/L (-3-3) FiO2 28 Laboratory Tests Test 02/03/17 12:11 02/03/17 16:25 02/03/17 20:26 02/04/17 05:00 O2 Saturation 95% (92-99) Arterial Blood pH 7.29 (7.35-7.45) Arterial Blood pCO2 at Patient Temp 57mmHg (35-46) Arterial Blood pO2 at Patient Temp 88mmHg (65-108) Arterial Blood HCO3 27mmol/L (21-28) Arterial Blood Base Excess -1mmol/L (-3-3) FiO2 36.0 Glucose (Fingerstick) 125mg/dL (70-99) 187mg/dL (70-99) White Blood Count 4.6x10^3/uL (4.0-11.0) Red Blood Count 2.33x10^6/uL (4.30-5.70) Hemoglobin 7.6g/dL (13.0-17.5) Hematocrit 23.0% (39.0-53.0) Mean Corpuscular Volume 99fL (79-100) Mean Corpuscular Hemoglobin 33pg (25-35) Mean Corpuscular Hemoglobin Concent 33g/dL (31-37) Red Cell Distribution Width 14.6% (11.5-14.5) Platelet Count 53x10^3/uL (140-400) Neutrophils (%) (Auto) 66% (31-73) Lymphocytes (%) (Auto) 20% (24-48) Monocytes (%) (Auto) 12% (0-9) Eosinophils (%) (Auto) 1% (0-3) Basophils (%) (Auto) 1% (0-3) Neutrophils # (Auto) 3.1x10^3uL (1.8-7.7) Lymphocytes # (Auto) 0.9x10^3/uL (1.0-4.8) Monocytes # (Auto) 0.6x10^3/uL (0.0-1.1) Eosinophils # (Auto) 0.0x10^3/uL (0.0-0.7) Basophils # (Auto) 0.0x10^3/uL (0.0-0.2) Sodium Level 138mmol/L (136-145) Potassium Level 4.0mmol/L (3.5-5.1) Chloride Level 99mmol/L (98-107) Carbon Dioxide Level 29mmol/L (21-32) Anion Gap 10 (6-14) Blood Urea Nitrogen 35mg/dL (8-26) Creatinine 2.8mg/dL (0.7-1.3) Estimated GFR (Cockcroft-Gault) 21.9 Glucose Level 111mg/dL (70-99) Calcium Level 8.2mg/dL (8.5-10.1) Test 02/04/17 07:47 02/04/17 08:10 02/04/17 11:00 Glucose (Fingerstick) 119mg/dL (70-99) Prothrombin Time 26.4SEC (11.7-14.0) Prothromb Time International Ratio 2.6 (0.8-1.1) O2 Saturation 97% (92-99) Arterial Blood pH 7.43 (7.35-7.45) Arterial Blood pCO2 at Patient Temp 45mmHg (35-46) Arterial Blood pO2 at Patient Temp 105mmHg (65-108) Arterial Blood HCO3 29mmol/L (21-28) Arterial Blood Base Excess 4mmol/L (-3-3) FiO2 28 Medications Active Scripts Medications Dose Route/Sig Days Date Category [id number] Eye Ointm (Chapito/Polymyx B Sulf/Dexameth) 3.5 Gm Oint...g. 3.5 Gm OS QHS 01/29/17 Reported Durezol (Difluprednate) 5 Ml Drops 1 Drop OS QID 01/29/17 Reported Lasix (Furosemide) 80 Mg Tablet 1 Tab PO DAILY 01/05/17 Rx Aspir 81 (Aspirin) 81 Mg Tablet.dr 1 Tab PO DAILY 09/18/15 Reported Senokot (Sennosides) 8.6 Mg Tablet 3 Tab PO BID 09/18/15 Reported Morphine Sulfate Er (Morphine Sulfate) 60 Mg Cap.er.pel 60 Mg PO 09/18/15 Reported Metoprolol Tartrate 50 Mg Tablet 0.5 Tab PO DAILY 09/18/15 Reported Latanoprost 2.5 Ml Drops 1 Drop EACHEYE QHS 09/18/15 Reported Gemfibrozil 600 Mg Tablet 1 Tab PO BID 09/18/15 Reported Dorzolamide-Timolol Eye Drops (Dorzolamide Hcl/Timolol Maleat) 10 Ml Drops 1 Drop RIGHTEYE BID 09/18/15 Reported Lyrica (Pregabalin) 75 Mg Capsule 1 Cap PO BID 09/18/15 Reported Alprazolam 0.5 Mg Tablet 1 Tab PO TID 09/18/15 Reported Warfarin Sodium 4 Mg Tablet 1 Tab PO DAILY 09/18/15 Reported Fish Oil 1,000 Mg Capsule (Perkins-3 Fatty Acids/Fish Oil) 1 Each Capsule 4 Each PO DAILY 09/18/[address] 5,000 Unit Cap (Lipase/Protease/Amylase) 1 Each Capsule.dr 4 Each PO 11/20/14 Reported Prilosec Otc (Omeprazole Magnesium) 20 Mg Tablet.dr 20 Mg PO DAILY 11/20/14 Reported Lyrica (Pregabalin) 25 Mg Capsule 50 Mg PO TID 30 11/20/14 Reported Gemfibrozil 600 Mg Tablet 600 Mg PO BID 11/20/14 Reported Spironolactone 25 Mg Tablet 25 Mg PO DAILY 11/20/14 Reported Calcitriol 0.25 Mcg Capsule 0.25 Mcg PO DAILY 11/20/14 Reported Lantus (Insulin Glargine,Hum.rec.anlog) 100 Unit/1 Ml Vial 22 Unit SQ HS 11/20/14 Reported Humalog (Insulin Lispro) 100 Unit/1 Ml Vial 8 Unit SQ TID 11/20/14 Reported Folic Acid 1 Mg Tablet 2 Mg PO TID 11/20/14 Reported Ferosul (Ferrous Sulfate) 325 Mg Tablet 325 Mg PO 11/20/14 Reported Ropinirole Hcl 1 Mg Tablet 1 Mg PO HS 11/20/14 Reported Tamsulosin Hcl 0.4 Mg Cap.er.24h 0.8 Mg PO DAILY 11/20/14 Reported Travatan Z (Travoprost) 5 Ml Drops 5 Ml OP 11/20/14 Reported Impression . 1. Acute toxic encephalopathy, secondary to narcotic overdose. 2. No significant history of tobacco use. 3. Acute kidney injury on chronic kidney disease. 4. Clear chest x-ray. Plan . 1. ABGs. improved. 2. PRN BiPAP. compensated hypercapnia. 3. Narcotic doses have been minimized. Now, he is on oxycodone p.r.n. and MS Contin has been stopped. I would recommend to continue to keep the narcotics at the lowest dose as possible. 4. Continue dialysis per Nephrology. 5. Discussed with RN and RT and will follow along with MAZIN Moe MD Feb 04, 2017 12:00
[2017-02-04] MEDS: CEFTRIAXONE SODIUM 1 GM in IV NORMAL SALINE 50ML 50 ML IV SCH (12:50)
--- NOTE | 2017-02-04 14:21 | PDOC ---
PROGRESS NOTES Chief Complaint Chief Complaint 1. Oliguric, hyperkalemic renal failure POA, needing STAT initiation of HD ( first session 01/29/17), 2 TIM on CKD, maybe even ESRD now needing stat HD initiation 3. MEtabolic encephalopathy 4. chronic LE edema stable 5. CHF 4. Multivessel CAD s/p recent CABG 6. SSS with indwelling PPM 7. PAFIB; maintaining SR 8. Therapeutic INR on coumadin 9. Acute on chronic back pain, indwelling back stimulator - needs adjustment 10. DM2, on insulin 11. BPH 12. supratherapeutic INR with coumadin 13. AMS with hallucination 2/2 TIM , metabolic encephalopathy likely 14. acute resp failure with hypoventilation with opoids likely plan: 1. fu with renal, pt pulled out his rt IJ temp HD cath, will get a new one today 2. labs daily 3. cont home meds, on coumadin daily, INR daily, will hold if need to do a chest perm HD cath, fu with IR, RENAL 4. pain control, fu with dr. Kristen RUSSELL, ON insulin, decrease today, dc aspart, levemir change to 10u qhs refuse Rehab, with bad experience before, has HH. hold coumadin, Tuesday may get a perm HD cath with IR when INR <1.8 uro consult for BPH, on flomax, add cetriaxone for ui with ash. US abd IR consult for HD perm Cath, HD daily now till tuesday. FFP 2 u on 02/02, 02/03. hold coumadin pulm consult. dc morphine pp bid. on percocet prn. abg better than 02/03 History of Present Illness History of Present Illness Numbers better after first session HD since Sat, new to pt Pt cant recall the details very involved in his care Only got 1 FFP yesterday (prior to HD cath insertion) (INR was 2,3 on warfarin for cardiac related issues) But HD cath inserted and now running second session HD I see that Hepatitis panel has been ordered- looking at OP HD set up now aware hallucination 02/02 rapid response night of 02/02, unresponsive,on bipap , 2/2 opoids likely lethargic 02/03 INR 4.5 to 3.9 02/03 Mental better on 02/04, bipap last night, low opoid intake HD daily x3 for 2 rounds now Vitals Vitals Vital Signs Date Time Temp Pulse Resp B/P Pulse Ox O2 Delivery O2 Flow Rate FiO2 02/04/17 08:00 Nasal Cannula 2.0 02/04/17 07:49 70 111/48 02/04/17 07:15 95 02/04/17 07:05 98.1 16 98.1 Physical Exam General: Alert, Oriented X3, Cooperative, No acute distress Heart: Regular rate, Normal S1, Normal S2, No murmurs, Gallops Lungs: Clear Abdomen: Normal bowel sounds, Soft, No tenderness, No hepatosplenomegaly, No masses Extremities: No clubbing, No cyanosis, No edema, Normal pulses, No tenderness/ swelling Skin: No rashes, No breakdown, No significant lesion Labs LABS Laboratory Tests Test 02/03/17 16:25 02/03/17 20:26 02/04/17 05:00 02/04/17 07:47 Glucose (Fingerstick) 125mg/dL (70-99) 187mg/dL (70-99) 119mg/dL (70-99) White Blood Count 4.6x10^3/uL (4.0-11.0) Red Blood Count 2.33x10^6/uL (4.30-5.70) Hemoglobin 7.6g/dL (13.0-17.5) Hematocrit 23.0% (39.0-53.0) Mean Corpuscular Volume 99fL (79-100) Mean Corpuscular Hemoglobin 33pg (25-35) Mean Corpuscular Hemoglobin Concent 33g/dL (31-37) Red Cell Distribution Width 14.6% (11.5-14.5) Platelet Count 53x10^3/uL (140-400) Neutrophils (%) (Auto) 66% (31-73) Lymphocytes (%) (Auto) 20% (24-48) Monocytes (%) (Auto) 12% (0-9) Eosinophils (%) (Auto) 1% (0-3) Basophils (%) (Auto) 1% (0-3) Neutrophils # (Auto) 3.1x10^3uL (1.8-7.7) Lymphocytes # (Auto) 0.9x10^3/uL (1.0-4.8) Monocytes # (Auto) 0.6x10^3/uL (0.0-1.1) Eosinophils # (Auto) 0.0x10^3/uL (0.0-0.7) Basophils # (Auto) 0.0x10^3/uL (0.0-0.2) Sodium Level 138mmol/L (136-145) Potassium Level 4.0mmol/L (3.5-5.1) Chloride Level 99mmol/L (98-107) Carbon Dioxide Level 29mmol/L (21-32) Anion Gap 10 (6-14) Blood Urea Nitrogen 35mg/dL (8-26) Creatinine 2.8mg/dL (0.7-1.3) Estimated GFR (Cockcroft-Gault) 21.9 Glucose Level 111mg/dL (70-99) Calcium Level 8.2mg/dL (8.5-10.1) Test 02/04/17 08:10 02/04/17 11:00 Prothrombin Time 26.4SEC (11.7-14.0) Prothromb Time International Ratio 2.6 (0.8-1.1) O2 Saturation 97% (92-99) Arterial Blood pH 7.43 (7.35-7.45) Arterial Blood pCO2 at Patient Temp 45mmHg (35-46) Arterial Blood pO2 at Patient Temp 105mmHg (65-108) Arterial Blood HCO3 29mmol/L (21-28) Arterial Blood Base Excess 4mmol/L (-3-3) FiO2 28 Review of Systems Review of Systems no fever, chills, sob or chest pain Assessment and Plan Assessmemt and Plan Problems Medical Problems: (1) Acute hyperkalemia Status: Acute (2) Acute renal failure Status: Acute Problems: Comment Review of Relevant I have reviewed the following items sarah (where applicable) has been applied. Labs Laboratory Tests Test 02/02/17 16:00 02/02/17 17:26 02/02/17 20:42 02/02/17 22:57 Urine Collection Type Unknown Urine Color Alison Urine Clarity Cloudy Urine pH 5.0 Urine Specific [place] 1.020 Urine Protein 100mg/dL (NEG-TRACE) Urine Glucose (UA) Negativemg/dL (NEG) Urine Ketones (Stick) Negativemg/dL (NEG) Urine Blood Large (NEG) Urine Nitrite Negative (NEG) Urine Bilirubin Negative (NEG) Urine Urobilinogen Dipstick 1.0mg/dL (0.2 mg/dL) Urine Leukocyte Esterase Large (NEG) Urine RBC >40/HPF (0-2) Urine WBC >40/HPF (0-4) Urine Bacteria Many/HPF (0-FEW) Urine Hyaline Casts Moderate/HPF Urine Mucus Slight/LPF Glucose (Fingerstick) 164mg/dL (70-99) 217mg/dL (70-99) 200mg/dL (70-99) Test 02/03/17 05:05 02/03/17 07:52 02/03/17 12:11 02/03/17 16:25 Prothrombin Time 35.8SEC (11.7-14.0) Prothromb Time International Ratio 3.9 (0.8-1.1) Sodium Level 138mmol/L (136-145) Potassium Level 4.5mmol/L (3.5-5.1) Chloride Level 99mmol/L (98-107) Carbon Dioxide Level 28mmol/L (21-32) Anion Gap 11 (6-14) Blood Urea Nitrogen 37mg/dL (8-26) Creatinine 3.4mg/dL (0.7-1.3) Estimated GFR (Cockcroft-Gault) 17.5 Glucose Level 175mg/dL (70-99) Calcium Level 8.1mg/dL (8.5-10.1) Glucose (Fingerstick) 162mg/dL (70-99) 125mg/dL (70-99) O2 Saturation 95% (92-99) Arterial Blood pH 7.29 (7.35-7.45) Arterial Blood pCO2 at Patient Temp 57mmHg (35-46) Arterial Blood pO2 at Patient Temp 88mmHg (65-108) Arterial Blood HCO3 27mmol/L (21-28) Arterial Blood Base Excess -1mmol/L (-3-3) FiO2 36.0 Test 02/03/17 20:26 02/04/17 05:00 02/04/17 07:47 02/04/17 08:10 Glucose (Fingerstick) 187mg/dL (70-99) 119mg/dL (70-99) White Blood Count 4.6x10^3/uL (4.0-11.0) Red Blood Count 2.33x10^6/uL (4.30-5.70) Hemoglobin 7.6g/dL (13.0-17.5) Hematocrit 23.0% (39.0-53.0) Mean Corpuscular Volume 99fL (79-100) Mean Corpuscular Hemoglobin 33pg (25-35) Mean Corpuscular Hemoglobin Concent 33g/dL (31-37) Red Cell Distribution Width 14.6% (11.5-14.5) Platelet Count 53x10^3/uL (140-400) Neutrophils (%) (Auto) 66% (31-73) Lymphocytes (%) (Auto) 20% (24-48) Monocytes (%) (Auto) 12% (0-9) Eosinophils (%) (Auto) 1% (0-3) Basophils (%) (Auto) 1% (0-3) Neutrophils # (Auto) 3.1x10^3uL (1.8-7.7) Lymphocytes # (Auto) 0.9x10^3/uL (1.0-4.8) Monocytes # (Auto) 0.6x10^3/uL (0.0-1.1) Eosinophils # (Auto) 0.0x10^3/uL (0.0-0.7) Basophils # (Auto) 0.0x10^3/uL (0.0-0.2) Sodium Level 138mmol/L (136-145) Potassium Level 4.0mmol/L (3.5-5.1) Chloride Level 99mmol/L (98-107) Carbon Dioxide Level 29mmol/L (21-32) Anion Gap 10 (6-14) Blood Urea Nitrogen 35mg/dL (8-26) Creatinine 2.8mg/dL (0.7-1.3) Estimated GFR (Cockcroft-Gault) 21.9 Glucose Level 111mg/dL (70-99) Calcium Level 8.2mg/dL (8.5-10.1) Prothrombin Time 26.4SEC (11.7-14.0) Prothromb Time International Ratio 2.6 (0.8-1.1) Test 02/04/17 11:00 O2 Saturation 97% (92-99) Arterial Blood pH 7.43 (7.35-7.45) Arterial Blood pCO2 at Patient Temp 45mmHg (35-46) Arterial Blood pO2 at Patient Temp 105mmHg (65-108) Arterial Blood HCO3 29mmol/L (21-28) Arterial Blood Base Excess 4mmol/L (-3-3) FiO2 28 Laboratory Tests Test 02/03/17 16:25 02/03/17 20:26 02/04/17 05:00 02/04/17 07:47 Glucose (Fingerstick) 125mg/dL (70-99) 187mg/dL (70-99) 119mg/dL (70-99) White Blood Count 4.6x10^3/uL (4.0-11.0) Red Blood Count 2.33x10^6/uL (4.30-5.70) Hemoglobin 7.6g/dL (13.0-17.5) Hematocrit 23.0% (39.0-53.0) Mean Corpuscular Volume 99fL (79-100) Mean Corpuscular Hemoglobin 33pg (25-35) Mean Corpuscular Hemoglobin Concent 33g/dL (31-37) Red Cell Distribution Width 14.6% (11.5-14.5) Platelet Count 53x10^3/uL (140-400) Neutrophils (%) (Auto) 66% (31-73) Lymphocytes (%) (Auto) 20% (24-48) Monocytes (%) (Auto) 12% (0-9) Eosinophils (%) (Auto) 1% (0-3) Basophils (%) (Auto) 1% (0-3) Neutrophils # (Auto) 3.1x10^3uL (1.8-7.7) Lymphocytes # (Auto) 0.9x10^3/uL (1.0-4.8) Monocytes # (Auto) 0.6x10^3/uL (0.0-1.1) Eosinophils # (Auto) 0.0x10^3/uL (0.0-0.7) Basophils # (Auto) 0.0x10^3/uL (0.0-0.2) Sodium Level 138mmol/L (136-145) Potassium Level 4.0mmol/L (3.5-5.1) Chloride Level 99mmol/L (98-107) Carbon Dioxide Level 29mmol/L (21-32) Anion Gap 10 (6-14) Blood Urea Nitrogen 35mg/dL (8-26) Creatinine 2.8mg/dL (0.7-1.3) Estimated GFR (Cockcroft-Gault) 21.9 Glucose Level 111mg/dL (70-99) Calcium Level 8.2mg/dL (8.5-10.1) Test 02/04/17 08:10 02/04/17 11:00 Prothrombin Time 26.4SEC (11.7-14.0) Prothromb Time International Ratio 2.6 (0.8-1.1) O2 Saturation 97% (92-99) Arterial Blood pH 7.43 (7.35-7.45) Arterial Blood pCO2 at Patient Temp 45mmHg (35-46) Arterial Blood pO2 at Patient Temp 105mmHg (65-108) Arterial Blood HCO3 29mmol/L (21-28) Arterial Blood Base Excess 4mmol/L (-3-3) FiO2 28 Microbiology 02/02/17 Urine Culture - Preliminary, Resulted 02/02/17 Urine Culture Result 1 (FADIA) - Preliminary, Resulted Medications Current Medications Calcium Gluconate 1,000 mg 1X ONCE IVP Last administered on 01/29/17 14:19; Start 01/29/17 at 13:45; Stop 01/29/17 at 13:46; Status DC Dextrose 25 gm 1X ONCE IV Last administered on 01/29/17 14:29; Start 01/29/17 at 13:45; Stop 01/29/17 at 13:46; Status DC Insulin Human Regular (Novolin R Vial) 10 unit 1X ONCE IV Last administered on 01/29/17 14:32; Start 01/29/17 at 13:45; Stop 01/29/17 at 13:46; Status DC Furosemide (Lasix) 40 mg 1X ONCE IVP Last administered on 01/29/17 14:33; Start 01/29/17 at 13:45; Stop 01/29/17 at 13:46; Status DC Oxycodone/ Acetaminophen (Percocet 5/325) 1 tab 1X ONCE PO Last administered on 01/29/17 14:18; Start 01/29/17 at 14:00; Stop 01/29/17 at 14:02; Status DC Ondansetron HCl (Zofran) 4 mg PRN Q8HRS PRN IV NAUSEA/VOMITING; Start 01/29/17 at 14:15; Stop 01/29/17 at 14:43; Status DC Fentanyl Citrate 50 mcg 50 mcg PRN Q2HR PRN IV PAIN Last administered on 11:04; Start 01/29/17 at 14:15; Stop 01/30/17 at 14:14; Status DC Sodium Chloride (Iv Sodium Chloride 0.9% 1000ml Bag) 1,000 ml @ 75 mls/hr [id number] IV Last administered on 01/29/17 22:15; Start 01/29/17 at 14:12; Stop at 14:11; Status DC Acetaminophen (Tylenol) 650 mg PRN Q4HRS PRN PO FEVER; Start 01/29/17 at 14:15; Stop 01/30/17 at 14:14; Status DC Ondansetron HCl (Zofran) 4 mg PRN Q6HRS PRN IV NAUSEA/VOMITING; Start 01/29/17 at 14:39 Alprazolam (Xanax) 0.5 mg PRN TID PRN PO nerves Last administered on 02/03/17 21:11; Start 01/29/17 at 14:45 Calcitriol (Rocaltrol) 0.25 mcg DAILY PO Last administered on 02/04/17 07:48; Start 01/30/17 at 09:00 Dorzolamide/ Timolol (Cosopt) 1 drop BID OU Last administered on 02/04/17 07: 46; Start 01/29/17 at 21:00 Ferrous Sulfate (Feosol) 325 mg DAILY PO Last administered on 02/04/17 07:48; Start 01/30/17 at 09:00 Folic Acid (Folic Acid) 2 mg TID PO Last administered on 02/04/17 12:50; Start 01/29/17 at 15:30 Gemfibrozil (Lopid) 600 mg BIDBFRMEAL PO Last administered on 02/04/17 07:49; Start 01/29/17 at 16:30 Latanoprost (Xalatan) 1 drop QHS OU Last administered on 02/03/17 21:08; Start 01/29/17 at 21:00 Amylase/Lipase/ Protease (Zenpep 5,000) 4 cap DAILY PO Last administered on 07:48; Start 01/30/17 at 09:00 Metoprolol Tartrate (Lopressor) 50 mg DAILY PO Last administered on 02/02/17 08 :46; Start 01/30/17 at 09:00; Stop 02/02/17 at 11:13; Status DC Fish Oil (Fish Oil) 1,000 mg DAILY PO Last administered on 02/04/17 07:48; Start 01/30/17 at 09:00 Pregabalin (Lyrica) 75 mg BID PO Last administered on 02/04/17 07:49; Start at 21:00 Ropinirole HCl (Requip) 1 mg HS PO Last administered on 02/03/17 21:09; Start 01/29/17 at 21:00 Sennosides (Senna) 8.6 mg BID PO Last administered on 02/04/17 07:47; Start at 21:00 Spironolactone (Aldactone) 25 mg DAILY PO Last administered on 02/02/17 08:43; Start 01/30/17 at 09:00; Stop 02/02/17 at 11:13; Status DC Tamsulosin HCl (Flomax) 0.8 mg DAILY PO Last administered on 02/04/17 07:48; Start 01/30/17 at 09:00 Insulin Detemir (Levemir) 22 units QHS SQ ; Start 01/29/17 at 21:00; Stop at 11:22; Status DC Insulin Aspart (Novolog) 8 units TIDBFRMEAL SQ Last administered on 01/30/17 08 :48; Start 01/29/17 at 16:30; Stop 01/30/17 at 11:22; Status DC Pantoprazole Sodium (Protonix) 40 mg DAILYAC PO Last administered on 02/04/17 07:47; Start 01/30/17 at 07:30 Morphine Sulfate (Ms Contin) 30 mg BID PO Last administered on 02/02/17 08:46; Start 01/29/17 at 21:00; Stop 02/02/17 at 12:11; Status DC Phytonadione (Mephyton) 5 mg 1X ONCE PO ; Start 01/29/17 at 15:30; Stop 01/29/17 at 15:31; Status DC Insulin Aspart (Novolog) 0-9 UNITS TIDWMEALS SQ Last administered on 02/01/17 11:50; Start 01/29/17 at 17:00 Dextrose 12.5 gm 12.5 gm PRN Q15MIN PRN IV SEE COMMENTS Last administered on 18:40; Start 01/29/17 at 14:45 Sodium Chloride (Iv Sodium Chloride 0.9% 500ml Bag) 500 ml @ 500 mls/hr 1X ONCE IV Last administered on 01/29/17 15:15; Start 01/29/17 at 15:15; Stop at 16:14; Status DC Heparin Sodium (Porcine) 78569 unit 10,000 unit STK-MED ONCE .ROUTE ; Start 01/29 at 15:30; Stop 01/29/17 at 15:31; Status DC Heparin Sodium/ Sodium Chloride 500 ml @ As Directed STK-MED ONCE .ROUTE ; Start 01/29/17 at 15:30; Stop 01/29/17 at 15:31; Status DC Lidocaine/ Epinephrine (Xylocaine 1%-Epi 1:100,000) 20 ml STK-MED ONCE .ROUTE ; Start 01/29/17 at 15:31; Stop 01/29/17 at 15:32; Status DC Lidocaine/ Epinephrine (Xylocaine 1%-Epi 1:100,000) 4 ml 1X ONCE IJ Last administered on 01/29/17 16:30; Start 01/29/17 at 16:00; Stop 01/29/17 at 16:01; Status DC Heparin Sodium/ Sodium Chloride 60 unit 1X ONCE IV Last administered on 16:30; Start 01/29/17 at 16:00; Stop 01/29/17 at 16:01; Status DC Heparin Sodium (Porcine) 2500 unit 2,500 unit 1X ONCE INT CAT Last administered on 01/29/17 16:30; Start 01/29/17 at 16:00; Stop 01/29/17 at 16:01; Status DC Sodium Chloride 1,000 ml @ 1,000 mls/hr Q1H PRN IV hypotension; Start 01/29/17 at 17:31; Stop 01/29/17 at 23:30; Status DC Albumin Human (Albuminar) 200 ml @ 200 mls/hr 1X PRN PRN IV Hypotension; Start 01/29/17 at 17:45; Stop 01/29/17 at 23:30; Status DC Sodium Chloride (Normal Saline Flush) 10 ml 1X PRN PRN IV AP 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; Start 01/29/17 at 17:45; Stop 01/29/17 at 23:30; Status DC Sodium Chloride (Normal Saline Flush) 10 ml 1X PRN PRN IV FOOT DOCTOR 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; Start 01/29/17 at 17:45; Stop 01/29/17 at 23:30; Status DC Info (PHARMACY MONITORING -- do not chart) 1 each PRN DAILY PRN MC SEE COMMENTS ; Start 01/29/17 at 17:45 Info (PHARMACY MONITORING -- do not chart) 1 each PRN DAILY PRN MC SEE COMMENTS ; Start 01/29/17 at 17:45; Status UNV Aspirin (Ecotrin) 81 mg DAILY PO Last administered on 02/04/17 07:48; Start at 09:00 Warfarin Sodium (Coumadin) 4 mg DAILY16 PO Last administered on 02/01/17 16:40 ; Start 01/29/17 at 19:00; Stop 02/02/17 at 12:11; Status DC Warfarin Sodium (Coumadin Per Physician) 1 each PRN DAILY PRN MC SEE COMMENTS Last administered on 02/03/17 13:55; Start 01/29/17 at 18:30 Insulin Aspart (Novolog) 5 units TIDBFRMEAL SQ Last administered on 02/01/17 11 :50; Start 01/30/17 at 11:30; Stop 02/02/17 at 11:01; Status DC Insulin Detemir 18 units 18 units QHS SQ Last administered on 01/31/17 21:31; Start 01/30/17 at 21:00; Stop 02/02/17 at 11:01; Status DC Sodium Chloride (Iv Sodium Chloride 0.9% 1000ml Bag) 1,000 ml @ 1,000 mls/hr Q1H PRN IV hypotension; Start 01/30/17 at 11:38; Stop 01/30/17 at 17:37; Status DC Sodium Chloride (Normal Saline Flush) 10 ml 1X PRN PRN IV AP 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; Start 01/30/17 at 11:45; Stop 01/31/17 at 11:44; Status DC Sodium Chloride (Normal Saline Flush) 10 ml 1X PRN PRN IV FOOT DOCTOR 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; Start 01/30/17 at 11:45; Stop 01/31/17 at 11:44; Status DC Info (PHARMACY MONITORING -- do not chart) 1 each PRN DAILY PRN MC SEE COMMENTS ; Start 01/30/17 at 11:45; Status UNV Info (PHARMACY MONITORING -- do not chart) 1 each PRN DAILY PRN MC SEE COMMENTS ; Start 01/30/17 at 11:45; Status UNV Oxycodone/ Acetaminophen (Percocet 5/325) 1 tab PRN Q4HRS PRN PO PAIN Last administered on 02/02/17 17:30; Start 01/30/17 at 18:45 Oxycodone/ Acetaminophen (Percocet 10/325) 1 tab PRN Q4HRS PRN PO PAIN Last administered on 02/01/17 14:03; Start 01/30/17 at 18:45; Stop 02/02/17 at 12:11; Status DC Insulin Aspart (Novolog) 9 units 1X ONCE SQ Last administered on 01/30/17 21: 57; Start 01/30/17 at 21:30; Stop 01/30/17 at 21:31; Status DC Lidocaine/Sodium Bicarbonate (Buffered Lidocaine 1%) 3 ml 1X ONCE IJ Last administered on 01/31/17 12:15; Start 01/31/17 at 12:15; Stop 01/31/17 at 12:16; Status DC Heparin Sodium/ Sodium Chloride 60 unit 1X ONCE IV Last administered on 13:02; Start 01/31/17 at 12:15; Stop 01/31/17 at 12:16; Status DC Heparin Sodium (Porcine) 2,500 unit 1X ONCE INT CAT Last administered on 13:02; Start 01/31/17 at 12:15; Stop 01/31/17 at 12:16; Status DC Heparin Sodium (Porcine) 10,000 unit STK-MED ONCE .ROUTE ; Start 01/31/17 at 12: 18; Stop 01/31/17 at 12:19; Status DC Fentanyl Citrate (Fentanyl 2ml Vial) 100 mcg STK-MED ONCE .ROUTE ; Start at 12:29; Stop 01/31/17 at 12:30; Status DC Midazolam HCl (Versed) 2 mg STK-MED ONCE .ROUTE ; Start 01/31/17 at 12:29; Stop 01/31/17 at 12:30; Status DC Midazolam HCl (Versed) 2 mg 1X ONCE IV Last administered on 01/31/17 13:01; Start 01/31/17 at 13:00; Stop 01/31/17 at 13:01; Status DC Non-Formulary Medication 1 ea QID OS Last administered on 02/04/17 07:46; Start 01/31/17 at 14:00 Non-Formulary Medication 1 ea QHS OS Last administered on 02/03/17 21:08; Start 01/31/17 at 21:00 Darbepoetin Joshua (Aranesp) 60 mcg WEEKLYHS SQ Last administered on 02/01/17 21: 25; Start 02/01/17 at 21:00 Insulin Detemir (Levemir) 10 units QHS SQ Last administered on 02/03/17 21:17; Start 02/02/17 at 21:00 Metoprolol Tartrate (Lopressor) 25 mg DAILY PO Last administered on 02/04/17 07:49; Start 02/03/17 at 09:00 Morphine Sulfate (Ms Contin) 20 mg BID PO ; Start 02/02/17 at 21:00; Stop at 21:00; Status DC Morphine Sulfate (Ms Contin) 15 mg BID PO Last administered on 02/02/17 21:23; Start 02/02/17 at 21:00; Stop 02/03/17 at 11:23; Status DC Naloxone HCl 0.2 mg 0.2 mg 1X ONCE IV Last administered on 02/02/17 23:28; Start 02/02/17 at 23:30; Stop 02/02/17 at 23:31; Status DC Sodium Chloride (Iv Sodium Chloride 0.9% 1000ml Bag) 1,000 ml @ 1,000 mls/hr Q1H PRN IV hypotension; Start 02/03/17 at 11:00; Stop 02/03/17 at 23:00; Status DC Sodium Chloride (Normal Saline Flush) 10 ml 1X PRN PRN IV AP 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; Start 02/03/17 at 11:15; Stop 02/03/17 at 23:00; Status DC Sodium Chloride (Normal Saline Flush) 10 ml 1X PRN PRN IV FOOT DOCTOR 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; Start 02/03/17 at 11:15; Stop 02/03/17 at 23:00; Status DC Info (PHARMACY MONITORING -- do not chart) 1 each PRN DAILY PRN MC SEE COMMENTS ; Start 02/03/17 at 11:15; Status UNV Info 1 each 1 each PRN DAILY PRN MC SEE COMMENTS; Start 02/03/17 at 11:15; Status UNV Ceftriaxone Sodium 1 gm/ Sodium Chloride 50 ml @ 100 mls/hr Q24H IV Last administered on 02/04/17 12:50; Start 02/03/17 at 14:00 Sodium Chloride 1,000 ml @ 1,000 mls/hr Q1H PRN IV hypotension; Start 02/04/17 at 07:53; Stop 02/04/17 at 13:52; Status DC Albumin Human (Albuminar) 200 ml @ 200 mls/hr 1X PRN PRN IV Hypotension; Start 02/04/17 at 08:00; Stop 02/04/17 at 13:59; Status DC Acetaminophen (Tylenol) 500 mg 1X PRN PRN PO MILD PAIN / TEMP Last administered on 02/04/17 09:32; Start 02/04/17 at 08:00; Stop 02/05/17 at 07:59 Diphenhydramine HCl (Benadryl) 25 mg 1X PRN PRN IV ITCHING; Start 02/04/17 at 08:00; Stop 02/05/17 at 07:59 Diphenhydramine HCl (Benadryl) 25 mg 1X PRN PRN IV ITCHING; Start 02/04/17 at 08:00; Stop 02/05/17 at 07:59 Sodium Chloride (Normal Saline Flush) 10 ml 1X PRN PRN IV AP 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; Start 02/04/17 at 08:00; Stop 02/05/17 at 07:59 Sodium Chloride (Normal Saline Flush) 10 ml 1X PRN PRN IV FOOT DOCTOR 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; Start 02/04/17 at 08:00; Stop 02/05/17 at 07:59 Labetalol HCl 10 mg 10 mg PRN Q1HR PRN IVP SBP > 180; Start 02/04/17 at 08:00; Stop 02/05/17 at 07:59 Sodium Chloride (Iv Sodium Chloride 0.9% 1000ml Bag) 1,000 ml @ 400 mls/hr Q2H30M PRN IV PATENCY; Start 02/04/17 at 07:53; Stop 02/04/17 at 19:52 Info 1 each 1 each PRN DAILY PRN MC SEE COMMENTS; Start 02/04/17 at 08:00; Status UNV Magnesium Sulfate/ Dextrose (Magnesium Sulfate PREMIX 2GM) 50 ml @ 25 mls/hr PRN DAILY PRN IV for Mag < 1.7 on am labs; Start 02/04/17 at 09:00 Active Scripts Active Lasix (Furosemide) 80 Mg Tablet 1 Tab PO DAILY Reported Ptqkil-Yvnfl-Uuyvbao Eye Ointm ([place]/Polymyx B Sulf/Dexameth) 3.5 Gm Oint...g. 3.5 Gm OS QHS Durezol (Difluprednate) 5 Ml Drops 1 Drop OS QID Aspir 81 (Aspirin) 81 Mg Tablet. 1 Tab PO DAILY Senokot (Sennosides) 8.6 Mg Tablet 3 Tab PO BID Morphine Sulfate Er (Morphine Sulfate) 60 Mg Cap.er.pel 60 Mg PO Metoprolol Tartrate 50 Mg Tablet 0.5 Tab PO DAILY Latanoprost 2.5 Ml Drops 1 Drop EACHEYE QHS Gemfibrozil 600 Mg Tablet 1 Tab PO BID Dorzolamide-Timolol Eye Drops (Dorzolamide Hcl/Timolol Maleat) 10 Ml Drops 1 Drop RIGHTEYE BID Lyrica (Pregabalin) 75 Mg Capsule 1 Cap PO BID Alprazolam 0.5 Mg Tablet 1 Tab PO TID Warfarin Sodium 4 Mg Tablet 1 Tab PO DAILY Fish Oil 1,000 Mg Capsule ([place]-3 Fatty Acids/Fish Oil) 1 Each Capsule 4 Each PO DAILY Pancrelipase 5,000 Unit Cap (Lipase/Protease/Amylase) 1 Each Capsule.dr 4 Each PO Prilosec Otc (Omeprazole Magnesium) 20 Mg Tablet. 20 Mg PO DAILY Lyrica (Pregabalin) 25 Mg Capsule 50 Mg PO TID 30 Days Gemfibrozil 600 Mg Tablet 600 Mg PO BID Spironolactone 25 Mg Tablet 25 Mg PO DAILY Calcitriol 0.25 Mcg Capsule 0.25 Mcg PO DAILY Lantus (Insulin Glargine,Hum.rec.anlog) 100 Unit/1 Ml Vial 22 Unit SQ HS Humalog (Insulin Lispro) 100 Unit/1 Ml Vial 8 Unit SQ TID Folic Acid 1 Mg Tablet 2 Mg PO TID Ferosul (Ferrous Sulfate) 325 Mg Tablet 325 Mg PO Ropinirole Hcl 1 Mg Tablet 1 Mg PO HS Tamsulosin Hcl 0.4 Mg Cap.er.24h 0.8 Mg PO DAILY Travatan Z (Travoprost) 5 Ml Drops 5 Ml OP Vitals/I & O Vital Sign - Last 24 Hours 02/03/17 02/03/17 02/03/17 02/03/17 15:53 19:47 20:09 21:06 Temp 98.1 97.9 98.1 97.9 Pulse 101 74 Resp 18 16 B/P 138/57 128/38 Pulse Ox 93 95 97 O2 Delivery Nasal Cannula Nasal Cannula Nasal Cannula BiPAP/CPAP O2 Flow Rate 2.0 2.5 2.0 02/03/17 02/03/17 02/04/17 02/04/17 23:16 23:31 01:31 03:14 Temp 98.5 99.0 98.5 99.0 Pulse 70 70 Resp 16 16 B/P 121/52 111/48 Pulse Ox 97 98 98 96 O2 Delivery BiPAP/CPAP BiPAP/CPAP BiPAP/CPAP BiPAP/CPAP 02/04/17 02/04/17 02/04/17 02/04/17 04:21 07:05 07:15 07:49 Temp 98.1 98.1 Pulse 88 70 Resp 16 B/P 129/61 111/48 Pulse Ox 98 99 95 O2 Delivery BiPAP/CPAP Nasal Cannula BiPAP/CPAP O2 Flow Rate 2.0 02/04/17 08:00 O2 Delivery Nasal Cannula O2 Flow Rate 2.0 Intake and Output 02/03/17 02/03/17 02/04/17 15:00 23:00 07:00 Intake Total 170 ml 80 ml 0 ml Output Total 101 ml 50 ml Balance 170 ml -21 ml -50 ml JAMES QUAN MD Feb 04, 2017 14:20
[2017-02-04 15:16] VITALS: BP 127/55
[2017-02-04] MEDS: OXYCODONE/APAP 5/325 TABLET. PO PRN (15:20)
--- NOTE | 2017-02-04 15:51 | RAD ---
EXAM: ABDOMINAL ULTRASOUND. HISTORY: Thrombocytopenia. COMPARISON: None. FINDINGS: Sonographic evaluation of the abdomen was performed. Hyperechogenicity of the hepatic parenchyma is consistent with diffuse hepatic steatosis. This lowers sensitivity for focal lesions. None are seen. The spleen is not well visualized. It could not be measured currently, but does not appear enlarged. The gallbladder is unremarkable without evidence of stones, wall thickening or pericholecystic fluid. There is no sonographic Dior sign. The common duct measures 4 mm. The visualized portions of the head of the pancreas reveal no abnormality. The right kidney measures 10.2 cm. Cortical thickness and echogenicity are preserved. There is no hydronephrosis. The left kidney measures 11.9 cm. Cortical thickness and echogenicity are preserved. There is no hydronephrosis. The visualized portions of the abdominal aorta and inferior vena cava are grossly patent and normal in caliber. IMPRESSION: 1. Diffuse hepatic steatosis. 2. The spleen is not well visualized and could not be measured currently. It is not clearly enlarged.
[2017-02-04 19:17] VITALS: BP 168/80
[2017-02-04] MEDS: rOPINIRole 1 MG TABLET. PO SCH (21:00)
[2017-02-04] MEDS: LATANOPROST 0.005% OPHTH SOLUTION 2.5ML BOTTLE. OU SCH (21:01)
[2017-02-04] MEDS: NEOMYCIN OS SCH (21:01)
[2017-02-04] MEDS: DEXAMETHASONE OS SCH (21:01)
[2017-02-04] MEDS: [UNRECOGNIZED DRUG - OTHER] OS SCH (21:01)
[2017-02-04] MEDS: INSULIN DETEMIR 300 UNITS/3 ML INSULN.PEN. SQ SCH (21:30)
[2017-02-04 22:59] VITALS: BP 149/66
[2017-02-05 03:28] VITALS: BP 150/73
[2017-02-05 07:00] VITALS: BP 170/84
[2017-02-05] MEDS: PANTOPRAZOLE 40 MG TABLET. PO SCH (08:23)
[2017-02-05] MEDS: METOPROLOL TART IMMED RELEASE 25 MG TABLET PO SCH (08:23)
[2017-02-05] MEDS: LIPASE/PROTEAS/AMYLASE 5/17/27 CAPSULE.DR. PO SCH (08:24)
[2017-02-05] MEDS: CALCITRIOL 0.25 MCG CAPSULE PO SCH (08:24)
[2017-02-05] MEDS: FERROUS SULFATE 325 MG TABLET PO SCH (08:24)
[2017-02-05] MEDS: SENNOSIDES 8.6 MG TABLET PO SCH ×2 (08:24→20:49)
[2017-02-05] MEDS: OMEGA-3 FATTY ACIDS/FISH OIL 1,000 MG CAPSULE. PO SCH (08:24)
[2017-02-05] MEDS: TAMSULOSIN 0.4 MG CAP.ER.24H. PO SCH (08:24)
[2017-02-05] MEDS: ASPIRIN ENTERIC COATED 81 MG TABLET.DR. PO SCH (08:24)
[2017-02-05] MEDS: GEMFIBROZIL 600 MG TABLET. PO SCH ×2 (08:24→16:59)
[2017-02-05] MEDS: FOLIC ACID 1 MG TABLET PO SCH ×3 (08:25→20:48)
[2017-02-05] MEDS ORDERED: IV NORMAL SALINE 1000ML BAG 1,000 ML IV PRN ×2 (08:25)
[2017-02-05] MEDS: OXYCODONE/APAP 5/325 TABLET. PO PRN ×2 (08:25→17:02)
[2017-02-05] MEDS: PREGABALIN 75 MG CAPSULE PO SCH ×2 (08:25→20:49)
[2017-02-05] MEDS: DORZOLAMIDE/TIMOLOL 2%/0.5% OPHTH SOLUTION 10ML BOTTLE. OU SCH ×2 (08:26→20:50)
[2017-02-05] MEDS: DUREZOL OS SCH ×4 (08:26→20:50)
[2017-02-05] MEDS ORDERED: 0.9 % SODIUM CHLORIDE 10 ML DISP.SYRIN. IV PRN ×2 (08:30)
[2017-02-05] MEDS ORDERED: DIPHENHYDRAMINE 50 MG/ML VIAL IV PRN ×2 (08:30)
[2017-02-05] MEDS ORDERED: LABETALOL 20 MG/4 ML DISP.SYRIN. IVP PRN (08:30)
[2017-02-05] MEDS ORDERED: ACETAMINOPHEN 500 MG TABLET PO PRN (08:30)
[2017-02-05] MEDS ORDERED: DIALYSIS PATIENT. MC PRN (08:30)
[2017-02-05] MEDS: INSULIN ASPART 300 UNITS/3 ML INSULN.PEN SQ SCH ×3 (08:36→17:07)
[2017-02-05] MEDS: ALPRAZOLAM 0.5 MG TABLET PO PRN ×2 (09:15→16:59)
[2017-02-05 11:02] LABS: ALBUMIN 3.1 g/dL (3.4-5.0); CALCIUM 8.4 mg/dL (8.5-10.1); CREATININE 2.4 mg/dL (0.7-1.3); GFR 26.1; PHOSPHORUS 2.3 mg/dL (2.6-4.7); POTASSIUM 3.6 mmol/L (3.5-5.1)
--- NOTE | 2017-02-05 12:43 | PDOC ---
PULMONARY PROGRESS NOTES Subjective awake, slept on BIPAP Vitals Vital Signs Date Time Temp Pulse Resp B/P Pulse Ox O2 Delivery O2 Flow Rate FiO2 02/05/17 08:23 70 170/84 02/05/17 08:00 Nasal Cannula 2.0 02/05/17 07:00 98.2 18 2 98.2 General: Alert, No acute distress Lungs: Clear Cardiovascular: S1, S2 Abdomen: Soft Neuro Exam: Alert Extremities: Other (1+edema) Skin: Warm Labs Laboratory Tests Test 02/03/17 16:25 02/03/17 20:26 02/04/17 05:00 02/04/17 07:47 Glucose (Fingerstick) 125mg/dL (70-99) 187mg/dL (70-99) 119mg/dL (70-99) White Blood Count 4.6x10^3/uL (4.0-11.0) Red Blood Count 2.33x10^6/uL (4.30-5.70) Hemoglobin 7.6g/dL (13.0-17.5) Hematocrit 23.0% (39.0-53.0) Mean Corpuscular Volume 99fL (79-100) Mean Corpuscular Hemoglobin 33pg (25-35) Mean Corpuscular Hemoglobin Concent 33g/dL (31-37) Red Cell Distribution Width 14.6% (11.5-14.5) Platelet Count 53x10^3/uL (140-400) Neutrophils (%) (Auto) 66% (31-73) Lymphocytes (%) (Auto) 20% (24-48) Monocytes (%) (Auto) 12% (0-9) Eosinophils (%) (Auto) 1% (0-3) Basophils (%) (Auto) 1% (0-3) Neutrophils # (Auto) 3.1x10^3uL (1.8-7.7) Lymphocytes # (Auto) 0.9x10^3/uL (1.0-4.8) Monocytes # (Auto) 0.6x10^3/uL (0.0-1.1) Eosinophils # (Auto) 0.0x10^3/uL (0.0-0.7) Basophils # (Auto) 0.0x10^3/uL (0.0-0.2) Sodium Level 138mmol/L (136-145) Potassium Level 4.0mmol/L (3.5-5.1) Chloride Level 99mmol/L (98-107) Carbon Dioxide Level 29mmol/L (21-32) Anion Gap 10 (6-14) Blood Urea Nitrogen 35mg/dL (8-26) Creatinine 2.8mg/dL (0.7-1.3) Estimated GFR (Cockcroft-Gault) 21.9 Glucose Level 111mg/dL (70-99) Calcium Level 8.2mg/dL (8.5-10.1) Test 02/04/17 08:10 02/04/17 11:00 02/04/17 16:51 02/04/17 20:46 Prothrombin Time 26.4SEC (11.7-14.0) Prothromb Time International Ratio 2.6 (0.8-1.1) O2 Saturation 97% (92-99) Arterial Blood pH 7.43 (7.35-7.45) Arterial Blood pCO2 at Patient Temp 45mmHg (35-46) Arterial Blood pO2 at Patient Temp 105mmHg (65-108) Arterial Blood HCO3 29mmol/L (21-28) Arterial Blood Base Excess 4mmol/L (-3-3) FiO2 28 Glucose (Fingerstick) 202mg/dL (70-99) 358mg/dL (70-99) Test 02/05/17 05:18 02/05/17 07:04 Hemoglobin 8.3g/dL (13.0-17.5) Sodium Level 139mmol/L (136-145) Potassium Level 3.6mmol/L (3.5-5.1) Chloride Level 102mmol/L (98-107) Carbon Dioxide Level 29mmol/L (21-32) Anion Gap 8 (6-14) Blood Urea Nitrogen 37mg/dL (8-26) Creatinine 2.4mg/dL (0.7-1.3) Estimated GFR (Cockcroft-Gault) 26.1 Glucose Level 260mg/dL (70-99) Calcium Level 8.4mg/dL (8.5-10.1) Phosphorus Level 2.3mg/dL (2.6-4.7) Magnesium Level 1.8mg/dL (1.8-2.4) Albumin 3.1g/dL (3.4-5.0) Glucose (Fingerstick) 226mg/dL (70-99) Laboratory Tests Test 02/04/17 16:51 02/04/17 20:46 02/05/17 05:18 02/05/17 07:04 Glucose (Fingerstick) 202mg/dL (70-99) 358mg/dL (70-99) 226mg/dL (70-99) Hemoglobin 8.3g/dL (13.0-17.5) Sodium Level 139mmol/L (136-145) Potassium Level 3.6mmol/L (3.5-5.1) Chloride Level 102mmol/L (98-107) Carbon Dioxide Level 29mmol/L (21-32) Anion Gap 8 (6-14) Blood Urea Nitrogen 37mg/dL (8-26) Creatinine 2.4mg/dL (0.7-1.3) Estimated GFR (Cockcroft-Gault) 26.1 Glucose Level 260mg/dL (70-99) Calcium Level 8.4mg/dL (8.5-10.1) Phosphorus Level 2.3mg/dL (2.6-4.7) Magnesium Level 1.8mg/dL (1.8-2.4) Albumin 3.1g/dL (3.4-5.0) Medications Active Scripts Medications Dose Route/Sig Days Date Category Wugjjc-Hgyjo-Qoecdlo Eye Ointm (Chapito/Polymyx B Sulf/Dexameth) 3.5 Gm Oint...g. 3.5 Gm OS QHS 01/29/17 Reported Durezol (Difluprednate) 5 Ml Drops 1 Drop OS QID 01/29/17 Reported Lasix (Furosemide) 80 Mg Tablet 1 Tab PO DAILY 01/05/17 Rx Aspir 81 (Aspirin) 81 Mg Tablet.dr 1 Tab PO DAILY 09/18/15 Reported Senokot (Sennosides) 8.6 Mg Tablet 3 Tab PO BID 09/18/15 Reported Morphine Sulfate Er (Morphine Sulfate) 60 Mg Cap.er.pel 60 Mg PO 09/18/15 Reported Metoprolol Tartrate 50 Mg Tablet 0.5 Tab PO DAILY 09/18/15 Reported Latanoprost 2.5 Ml Drops 1 Drop EACHEYE QHS 09/18/15 Reported Gemfibrozil 600 Mg Tablet 1 Tab PO BID 09/18/15 Reported Dorzolamide-Timolol Eye Drops (Dorzolamide Hcl/Timolol Maleat) 10 Ml Drops 1 Drop RIGHTEYE BID 09/18/15 Reported Lyrica (Pregabalin) 75 Mg Capsule 1 Cap PO BID 09/18/15 Reported Alprazolam 0.5 Mg Tablet 1 Tab PO TID 09/18/15 Reported Warfarin Sodium 4 Mg Tablet 1 Tab PO DAILY 09/18/15 Reported Fish Oil 1,000 Mg Capsule ([place]-3 Fatty Acids/Fish Oil) 1 Each Capsule 4 Each PO DAILY 09/18/[address] 5,000 Unit Cap (Lipase/Protease/Amylase) 1 Each Capsule.dr 4 Each PO 11/20/14 Reported Prilosec Otc (Omeprazole Magnesium) 20 Mg Tablet.dr 20 Mg PO DAILY 11/20/14 Reported Lyrica (Pregabalin) 25 Mg Capsule 50 Mg PO TID 30 11/20/14 Reported Gemfibrozil 600 Mg Tablet 600 Mg PO BID 11/20/14 Reported Spironolactone 25 Mg Tablet 25 Mg PO DAILY 11/20/14 Reported Calcitriol 0.25 Mcg Capsule 0.25 Mcg PO DAILY 11/20/14 Reported Lantus (Insulin Glargine,Hum.rec.anlog) 100 Unit/1 Ml Vial 22 Unit SQ HS 11/20/14 Reported Humalog (Insulin Lispro) 100 Unit/1 Ml Vial 8 Unit SQ TID 11/20/14 Reported Folic Acid 1 Mg Tablet 2 Mg PO TID 11/20/14 Reported Ferosul (Ferrous Sulfate) 325 Mg Tablet 325 Mg PO 11/20/14 Reported Ropinirole Hcl 1 Mg Tablet 1 Mg PO HS 11/20/14 Reported Tamsulosin Hcl 0.4 Mg Cap.er.24h 0.8 Mg PO DAILY 11/20/14 Reported Travatan Z (Travoprost) 5 Ml Drops 5 Ml OP 11/20/14 Reported Impression . 1. Acute toxic encephalopathy, secondary to narcotic overdose. 2. No significant history of tobacco use. 3. Acute kidney injury on chronic kidney disease. 4. Clear chest x-ray. Plan . 1. ABGs. improved. 2. PRN BiPAP. compensated hypercapnia. 3. Narcotic doses have been minimized. Now, he is on oxycodone p.r.n. and MS Contin has been stopped. I would recommend to continue to keep the narcotics at the lowest dose as possible. 4. Continue dialysis per Nephrology. 5. Discussed with RN and RT and will follow along with you MAZIN CROWLEY MD Feb 05, 2017 12:43
--- NOTE | 2017-02-05 12:46 | PDOC ---
PROGRESS NOTES Subjective Subjective He admits severe back pain and even wants to try injections or brace which he refused to consider earlier in the week. Objective Objective Vital Signs Date Time Temp Pulse Resp B/P Pulse Ox O2 Delivery O2 Flow Rate FiO2 02/05/17 08:23 70 170/84 02/05/17 08:00 Nasal Cannula 2.0 02/05/17 07:00 98.2 18 2 98.2 Intake and Output 02/05/17 07:00 Intake Total 420 ml Output Total 651 ml Balance -231 ml Intake Oral 420 ml Output Urine Total 650 ml Stool Total 1 ml # Bowel Movements 3 Physical Exam Physical Exam He had tenderness to palpation over sacroiliac joint and lumbar paraspinal muscles and painfully limited lumbar spine ROM. Assessment Assessment Problems Medical Problems: (1) Acute hyperkalemia Status: Acute (2) Acute renal failure Status: Acute Plan Plan of Care To try reduced dose of mscontin as he has been taking it for a while and he admits he tried oxycontin in the past and it did not provide much pain relief.To try lumbar corset and to consider sacroiliac joint injections if pain persists. Comment Review of Relevant I have reviewed the following items sarah (where applicable) has been applied. Labs Laboratory Tests Test 02/03/17 16:25 02/03/17 20:26 02/04/17 05:00 02/04/17 07:47 Glucose (Fingerstick) 125mg/dL (70-99) 187mg/dL (70-99) 119mg/dL (70-99) White Blood Count 4.6x10^3/uL (4.0-11.0) Red Blood Count 2.33x10^6/uL (4.30-5.70) Hemoglobin 7.6g/dL (13.0-17.5) Hematocrit 23.0% (39.0-53.0) Mean Corpuscular Volume 99fL (79-100) Mean Corpuscular Hemoglobin 33pg (25-35) Mean Corpuscular Hemoglobin Concent 33g/dL (31-37) Red Cell Distribution Width 14.6% (11.5-14.5) Platelet Count 53x10^3/uL (140-400) Neutrophils (%) (Auto) 66% (31-73) Lymphocytes (%) (Auto) 20% (24-48) Monocytes (%) (Auto) 12% (0-9) Eosinophils (%) (Auto) 1% (0-3) Basophils (%) (Auto) 1% (0-3) Neutrophils # (Auto) 3.1x10^3uL (1.8-7.7) Lymphocytes # (Auto) 0.9x10^3/uL (1.0-4.8) Monocytes # (Auto) 0.6x10^3/uL (0.0-1.1) Eosinophils # (Auto) 0.0x10^3/uL (0.0-0.7) Basophils # (Auto) 0.0x10^3/uL (0.0-0.2) Sodium Level 138mmol/L (136-145) Potassium Level 4.0mmol/L (3.5-5.1) Chloride Level 99mmol/L (98-107) Carbon Dioxide Level 29mmol/L (21-32) Anion Gap 10 (6-14) Blood Urea Nitrogen 35mg/dL (8-26) Creatinine 2.8mg/dL (0.7-1.3) Estimated GFR (Cockcroft-Gault) 21.9 Glucose Level 111mg/dL (70-99) Calcium Level 8.2mg/dL (8.5-10.1) Test 02/04/17 08:10 02/04/17 11:00 02/04/17 16:51 02/04/17 20:46 Prothrombin Time 26.4SEC (11.7-14.0) Prothromb Time International Ratio 2.6 (0.8-1.1) O2 Saturation 97% (92-99) Arterial Blood pH 7.43 (7.35-7.45) Arterial Blood pCO2 at Patient Temp 45mmHg (35-46) Arterial Blood pO2 at Patient Temp 105mmHg (65-108) Arterial Blood HCO3 29mmol/L (21-28) Arterial Blood Base Excess 4mmol/L (-3-3) FiO2 28 Glucose (Fingerstick) 202mg/dL (70-99) 358mg/dL (70-99) Test 02/05/17 05:18 02/05/17 07:04 Hemoglobin 8.3g/dL (13.0-17.5) Sodium Level 139mmol/L (136-145) Potassium Level 3.6mmol/L (3.5-5.1) Chloride Level 102mmol/L (98-107) Carbon Dioxide Level 29mmol/L (21-32) Anion Gap 8 (6-14) Blood Urea Nitrogen 37mg/dL (8-26) Creatinine 2.4mg/dL (0.7-1.3) Estimated GFR (Cockcroft-Gault) 26.1 Glucose Level 260mg/dL (70-99) Calcium Level 8.4mg/dL (8.5-10.1) Phosphorus Level 2.3mg/dL (2.6-4.7) Magnesium Level 1.8mg/dL (1.8-2.4) Albumin 3.1g/dL (3.4-5.0) Glucose (Fingerstick) 226mg/dL (70-99) Laboratory Tests Test 02/04/17 16:51 02/04/17 20:46 02/05/17 05:18 02/05/17 07:04 Glucose (Fingerstick) 202mg/dL (70-99) 358mg/dL (70-99) 226mg/dL (70-99) Hemoglobin 8.3g/dL (13.0-17.5) Sodium Level 139mmol/L (136-145) Potassium Level 3.6mmol/L (3.5-5.1) Chloride Level 102mmol/L (98-107) Carbon Dioxide Level 29mmol/L (21-32) Anion Gap 8 (6-14) Blood Urea Nitrogen 37mg/dL (8-26) Creatinine 2.4mg/dL (0.7-1.3) Estimated GFR (Cockcroft-Gault) 26.1 Glucose Level 260mg/dL (70-99) Calcium Level 8.4mg/dL (8.5-10.1) Phosphorus Level 2.3mg/dL (2.6-4.7) Magnesium Level 1.8mg/dL (1.8-2.4) Albumin 3.1g/dL (3.4-5.0) Microbiology 02/02/17 Urine Culture - Final, Complete 02/02/17 Urine Culture Result 1 (FADIA) - Final, Complete 02/02/17 Antimicrobic Susceptibility - Final, Complete Medications Current Medications Calcium Gluconate 1,000 mg 1X ONCE IVP Last administered on 01/29/17 14:19; Start 01/29/17 at 13:45; Stop 01/29/17 at 13:46; Status DC Dextrose 25 gm 1X ONCE IV Last administered on 01/29/17 14:29; Start 01/29/17 at 13:45; Stop 01/29/17 at 13:46; Status DC Insulin Human Regular (Novolin R Vial) 10 unit 1X ONCE IV Last administered on 01/29/17 14:32; Start 01/29/17 at 13:45; Stop 01/29/17 at 13:46; Status DC Furosemide (Lasix) 40 mg 1X ONCE IVP Last administered on 01/29/17 14:33; Start 01/29/17 at 13:45; Stop 01/29/17 at 13:46; Status DC Oxycodone/ Acetaminophen (Percocet 5/325) 1 tab 1X ONCE PO Last administered on 01/29/17 14:18; Start 01/29/17 at 14:00; Stop 01/29/17 at 14:02; Status DC Ondansetron HCl (Zofran) 4 mg PRN Q8HRS PRN IV NAUSEA/VOMITING; Start 01/29/17 at 14:15; Stop 01/29/17 at 14:43; Status DC Fentanyl Citrate 50 mcg 50 mcg PRN Q2HR PRN IV PAIN Last administered on 11:04; Start 01/29/17 at 14:15; Stop 01/30/17 at 14:14; Status DC Sodium Chloride (Iv Sodium Chloride 0.9% 1000ml Bag) 1,000 ml @ 75 mls/hr [id number] IV Last administered on 01/29/17 22:15; Start 01/29/17 at 14:12; Stop at 14:11; Status DC Acetaminophen (Tylenol) 650 mg PRN Q4HRS PRN PO FEVER; Start 01/29/17 at 14:15; Stop 01/30/17 at 14:14; Status DC Ondansetron HCl (Zofran) 4 mg PRN Q6HRS PRN IV NAUSEA/VOMITING; Start 01/29/17 at 14:39 Alprazolam (Xanax) 0.5 mg PRN TID PRN PO nerves Last administered on 02/03/17 21:11; Start 01/29/17 at 14:45 Calcitriol (Rocaltrol) 0.25 mcg DAILY PO Last administered on 02/05/17 08:24; Start 01/30/17 at 09:00 Dorzolamide/ Timolol (Cosopt) 1 drop BID OU Last administered on 02/05/17 08: 26; Start 01/29/17 at 21:00 Ferrous Sulfate (Feosol) 325 mg DAILY PO Last administered on 02/05/17 08:24; Start 01/30/17 at 09:00 Folic Acid (Folic Acid) 2 mg TID PO Last administered on 02/05/17 08:25; Start 01/29/17 at 15:30 Gemfibrozil (Lopid) 600 mg BIDBFRMEAL PO Last administered on 02/05/17 08:24; Start 01/29/17 at 16:30 Latanoprost (Xalatan) 1 drop QHS OU Last administered on 02/04/17 21:01; Start 01/29/17 at 21:00 Amylase/Lipase/ Protease (Zenpep 5,000) 4 cap DAILY PO Last administered on 08:24; Start 01/30/17 at 09:00 Metoprolol Tartrate (Lopressor) 50 mg DAILY PO Last administered on 02/02/17 08 :46; Start 01/30/17 at 09:00; Stop 02/02/17 at 11:13; Status DC Fish Oil (Fish Oil) 1,000 mg DAILY PO Last administered on 02/05/17 08:24; Start 01/30/17 at 09:00 Pregabalin (Lyrica) 75 mg BID PO Last administered on 02/05/17 08:25; Start at 21:00 Ropinirole HCl (Requip) 1 mg HS PO Last administered on 02/04/17 21:00; Start 01/29/17 at 21:00 Sennosides (Senna) 8.6 mg BID PO Last administered on 02/05/17 08:24; Start at 21:00 Spironolactone (Aldactone) 25 mg DAILY PO Last administered on 02/02/17 08:43; Start 01/30/17 at 09:00; Stop 02/02/17 at 11:13; Status DC Tamsulosin HCl (Flomax) 0.8 mg DAILY PO Last administered on 02/05/17 08:24; Start 01/30/17 at 09:00 Insulin Detemir (Levemir) 22 units QHS SQ ; Start 01/29/17 at 21:00; Stop at 11:22; Status DC Insulin Aspart (Novolog) 8 units TIDBFRMEAL SQ Last administered on 01/30/17 08 :48; Start 01/29/17 at 16:30; Stop 01/30/17 at 11:22; Status DC Pantoprazole Sodium (Protonix) 40 mg DAILYAC PO Last administered on 02/05/17 08:23; Start 01/30/17 at 07:30 Morphine Sulfate (Ms Contin) 30 mg BID PO Last administered on 02/02/17 08:46; Start 01/29/17 at 21:00; Stop 02/02/17 at 12:11; Status DC Phytonadione (Mephyton) 5 mg 1X ONCE PO ; Start 01/29/17 at 15:30; Stop 01/29/17 at 15:31; Status DC Insulin Aspart (Novolog) 0-9 UNITS TIDWMEALS SQ Last administered on 02/05/17 08:36; Start 01/29/17 at 17:00 Dextrose 12.5 gm 12.5 gm PRN Q15MIN PRN IV SEE COMMENTS Last administered on 18:40; Start 01/29/17 at 14:45 Sodium Chloride (Iv Sodium Chloride 0.9% 500ml Bag) 500 ml @ 500 mls/hr 1X ONCE IV Last administered on 01/29/17 15:15; Start 01/29/17 at 15:15; Stop at 16:14; Status DC Heparin Sodium (Porcine) 38245 unit 10,000 unit STK-MED ONCE .ROUTE ; Start 01/29 at 15:30; Stop 01/29/17 at 15:31; Status DC Heparin Sodium/ Sodium Chloride 500 ml @ As Directed STK-MED ONCE .ROUTE ; Start 01/29/17 at 15:30; Stop 01/29/17 at 15:31; Status DC Lidocaine/ Epinephrine (Xylocaine 1%-Epi 1:100,000) 20 ml STK-MED ONCE .ROUTE ; Start 01/29/17 at 15:31; Stop 01/29/17 at 15:32; Status DC Lidocaine/ Epinephrine (Xylocaine 1%-Epi 1:100,000) 4 ml 1X ONCE IJ Last administered on 01/29/17 16:30; Start 01/29/17 at 16:00; Stop 01/29/17 at 16:01; Status DC Heparin Sodium/ Sodium Chloride 60 unit 1X ONCE IV Last administered on 16:30; Start 01/29/17 at 16:00; Stop 01/29/17 at 16:01; Status DC Heparin Sodium (Porcine) 2500 unit 2,500 unit 1X ONCE INT CAT Last administered on 01/29/17 16:30; Start 01/29/17 at 16:00; Stop 01/29/17 at 16:01; Status DC Sodium Chloride 1,000 ml @ 1,000 mls/hr Q1H PRN IV hypotension; Start 01/29/17 at 17:31; Stop 01/29/17 at 23:30; Status DC Albumin Human (Albuminar) 200 ml @ 200 mls/hr 1X PRN PRN IV Hypotension; Start 01/29/17 at 17:45; Stop 01/29/17 at 23:30; Status DC Sodium Chloride (Normal Saline Flush) 10 ml 1X PRN PRN IV AP 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; Start 01/29/17 at 17:45; Stop 01/29/17 at 23:30; Status DC Sodium Chloride (Normal Saline Flush) 10 ml 1X PRN PRN IV [employer] 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; Start 01/29/17 at 17:45; Stop 01/29/17 at 23:30; Status DC Info (PHARMACY MONITORING -- do not chart) 1 each PRN DAILY PRN MC SEE COMMENTS ; Start 01/29/17 at 17:45 Info (PHARMACY MONITORING -- do not chart) 1 each PRN DAILY PRN MC SEE COMMENTS ; Start 01/29/17 at 17:45; Status UNV Aspirin (Ecotrin) 81 mg DAILY PO Last administered on 02/05/17 08:24; Start at 09:00 Warfarin Sodium (Coumadin) 4 mg DAILY16 PO Last administered on 02/01/17 16:40 ; Start 01/29/17 at 19:00; Stop 02/02/17 at 12:11; Status DC Warfarin Sodium (Coumadin Per Physician) 1 each PRN DAILY PRN MC SEE COMMENTS Last administered on 02/03/17 13:55; Start 01/29/17 at 18:30; Stop 02/04/17 at 14 :20; Status DC Insulin Aspart (Novolog) 5 units TIDBFRMEAL SQ Last administered on 02/01/17 11 :50; Start 01/30/17 at 11:30; Stop 02/02/17 at 11:01; Status DC Insulin Detemir 18 units 18 units QHS SQ Last administered on 01/31/17 21:31; Start 01/30/17 at 21:00; Stop 02/02/17 at 11:01; Status DC Sodium Chloride (Iv Sodium Chloride 0.9% 1000ml Bag) 1,000 ml @ 1,000 mls/hr Q1H PRN IV hypotension; Start 01/30/17 at 11:38; Stop 01/30/17 at 17:37; Status DC Sodium Chloride (Normal Saline Flush) 10 ml 1X PRN PRN IV AP 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; Start 01/30/17 at 11:45; Stop 01/31/17 at 11:44; Status DC Sodium Chloride (Normal Saline Flush) 10 ml 1X PRN PRN IV [employer] 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; Start 01/30/17 at 11:45; Stop 01/31/17 at 11:44; Status DC Info (PHARMACY MONITORING -- do not chart) 1 each PRN DAILY PRN MC SEE COMMENTS ; Start 01/30/17 at 11:45; Status UNV Info (PHARMACY MONITORING -- do not chart) 1 each PRN DAILY PRN MC SEE COMMENTS ; Start 01/30/17 at 11:45; Status UNV Oxycodone/ Acetaminophen (Percocet 5/325) 1 tab PRN Q4HRS PRN PO PAIN Last administered on 02/05/17 08:25; Start 01/30/17 at 18:45 Oxycodone/ Acetaminophen (Percocet 10/325) 1 tab PRN Q4HRS PRN PO PAIN Last administered on 02/01/17 14:03; Start 01/30/17 at 18:45; Stop 02/02/17 at 12:11; Status DC Insulin Aspart (Novolog) 9 units 1X ONCE SQ Last administered on 01/30/17 21: 57; Start 01/30/17 at 21:30; Stop 01/30/17 at 21:31; Status DC Lidocaine/Sodium Bicarbonate (Buffered Lidocaine 1%) 3 ml 1X ONCE IJ Last administered on 01/31/17 12:15; Start 01/31/17 at 12:15; Stop 01/31/17 at 12:16; Status DC Heparin Sodium/ Sodium Chloride 60 unit 1X ONCE IV Last administered on 13:02; Start 01/31/17 at 12:15; Stop 01/31/17 at 12:16; Status DC Heparin Sodium (Porcine) 2,500 unit 1X ONCE INT CAT Last administered on 13:02; Start 01/31/17 at 12:15; Stop 01/31/17 at 12:16; Status DC Heparin Sodium (Porcine) 10,000 unit STK-MED ONCE .ROUTE ; Start 01/31/17 at 12: 18; Stop 01/31/17 at 12:19; Status DC Fentanyl Citrate (Fentanyl 2ml Vial) 100 mcg STK-MED ONCE .ROUTE ; Start at 12:29; Stop 01/31/17 at 12:30; Status DC Midazolam HCl (Versed) 2 mg STK-MED ONCE .ROUTE ; Start 01/31/17 at 12:29; Stop 01/31/17 at 12:30; Status DC Midazolam HCl (Versed) 2 mg 1X ONCE IV Last administered on 01/31/17 13:01; Start 01/31/17 at 13:00; Stop 01/31/17 at 13:01; Status DC Non-Formulary Medication 1 ea QID OS Last administered on 02/05/17 08:26; Start 01/31/17 at 14:00 Non-Formulary Medication 1 ea QHS OS Last administered on 02/04/17 21:01; Start 01/31/17 at 21:00 Darbepoetin Joshua (Aranesp) 60 mcg WEEKLYHS SQ Last administered on 02/01/17 21: 25; Start 02/01/17 at 21:00 Insulin Detemir (Levemir) 10 units QHS SQ Last administered on 02/04/17 21:30 ; Start 02/02/17 at 21:00 Metoprolol Tartrate (Lopressor) 25 mg DAILY PO Last administered on 02/05/17 08:23; Start 02/03/17 at 09:00 Morphine Sulfate (Ms Contin) 20 mg BID PO ; Start 02/02/17 at 21:00; Stop at 21:00; Status DC Morphine Sulfate (Ms Contin) 15 mg BID PO Last administered on 02/02/17 21:23; Start 02/02/17 at 21:00; Stop 02/03/17 at 11:23; Status DC Naloxone HCl 0.2 mg 0.2 mg 1X ONCE IV Last administered on 02/02/17 23:28; Start 02/02/17 at 23:30; Stop 02/02/17 at 23:31; Status DC Sodium Chloride (Iv Sodium Chloride 0.9% 1000ml Bag) 1,000 ml @ 1,000 mls/hr Q1H PRN IV hypotension; Start 02/03/17 at 11:00; Stop 02/03/17 at 23:00; Status DC Sodium Chloride (Normal Saline Flush) 10 ml 1X PRN PRN IV AP 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; Start 02/03/17 at 11:15; Stop 02/03/17 at 23:00; Status DC Sodium Chloride (Normal Saline Flush) 10 ml 1X PRN PRN IV [employer] 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; Start 02/03/17 at 11:15; Stop 02/03/17 at 23:00; Status DC Info (PHARMACY MONITORING -- do not chart) 1 each PRN DAILY PRN MC SEE COMMENTS ; Start 02/03/17 at 11:15; Status UNV Info 1 each 1 each PRN DAILY PRN MC SEE COMMENTS; Start 02/03/17 at 11:15; Status UNV Ceftriaxone Sodium 1 gm/ Sodium Chloride 50 ml @ 100 mls/hr Q24H IV Last administered on 02/04/17 12:50; Start 02/03/17 at 14:00 Sodium Chloride 1,000 ml @ 1,000 mls/hr Q1H PRN IV hypotension; Start 02/04/17 at 07:53; Stop 02/04/17 at 13:52; Status DC Albumin Human (Albuminar) 200 ml @ 200 mls/hr 1X PRN PRN IV Hypotension; Start 02/04/17 at 08:00; Stop 02/04/17 at 13:59; Status DC Acetaminophen (Tylenol) 500 mg 1X PRN PRN PO MILD PAIN / TEMP Last administered on 02/04/17t 09:32; Start 02/04/17 at 08:00; Stop 02/05/17 at 07:59 ; Status DC Diphenhydramine HCl (Benadryl) 25 mg 1X PRN PRN IV ITCHING; Start 02/04/17 at 08:00; Stop 02/05/17 at 07:59; Status DC Diphenhydramine HCl (Benadryl) 25 mg 1X PRN PRN IV ITCHING; Start 02/04/17 at 08:00; Stop 02/05/17 at 07:59; Status DC Sodium Chloride (Normal Saline Flush) 10 ml 1X PRN PRN IV AP 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; Start 02/04/17 at 08:00; Stop 02/05/17 at 07:59; Status DC Sodium Chloride (Normal Saline Flush) 10 ml 1X PRN PRN IV [employer] 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; Start 02/04/17 at 08:00; Stop 02/05/17 at 07:59; Status DC Labetalol HCl 10 mg 10 mg PRN Q1HR PRN IVP SBP > 180; Start 02/04/17 at 08:00; Stop 02/05/17 at 07:59; Status DC Sodium Chloride (Iv Sodium Chloride 0.9% 1000ml Bag) 1,000 ml @ 400 mls/hr Q2H30M PRN IV PATENCY; Start 02/04/17 at 07:53; Stop 02/04/17 at 19:52; Status DC Info 1 each 1 each PRN DAILY PRN MC SEE COMMENTS; Start 02/04/17 at 08:00; Status UNV Magnesium Sulfate/ Dextrose 50 ml @ 25 mls/hr PRN DAILY PRN IV for Mag < 1.7 on am labs; Start 02/04/17 at 09:00 Sodium Chloride (Iv Sodium Chloride 0.9% 1000ml Bag) 1,000 ml @ 1,000 mls/hr Q1H PRN IV hypotension; Start 02/05/17 at 08:25; Stop 02/05/17 at 14:24 Acetaminophen (Tylenol) 500 mg 1X PRN PRN PO MILD PAIN / TEMP; Start 02/05/17 at 08:30; Stop 02/06/17 at 08:29 Diphenhydramine HCl (Benadryl) 25 mg 1X PRN PRN IV ITCHING; Start 02/05/17 at 08:30; Stop 02/06/17 at 08:29 Diphenhydramine HCl (Benadryl) 25 mg 1X PRN PRN IV ITCHING; Start 02/05/17 at 08:30; Stop 02/06/17 at 08:29 Sodium Chloride (Normal Saline Flush) 10 ml 1X PRN PRN IV AP 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; Start 02/05/17 at 08:30; Stop 02/06/17 at 08:29 Sodium Chloride (Normal Saline Flush) 10 ml 1X PRN PRN IV [employer] 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; Start 02/05/17 at 08:30; Stop 02/06/17 at 08:29 Labetalol HCl 10 mg 10 mg PRN Q1HR PRN IVP SBP > 180; Start 02/05/17 at 08:30; Stop 02/06/17 at 08:29 Sodium Chloride (Iv Sodium Chloride 0.9% 1000ml Bag) 1,000 ml @ 400 mls/hr Q2H30M PRN IV PATENCY; Start 02/05/17 at 08:25; Stop 02/05/17 at 20:24 Info (PHARMACY MONITORING -- do not chart) 1 each PRN DAILY PRN MC SEE COMMENTS ; Start 02/05/17 at 08:30; Status UNV Lidocaine (Lidoderm) 1 patch DAILY TD ; Start 02/05/17 at 12:00 Morphine Sulfate (Ms Contin) 15 mg BID PO ; Start 02/05/17 at 12:00 Lidocaine (Lidoderm) 1 patch DAILY TD ; Start 02/05/17 at 13:00 Active Scripts Active Lasix (Furosemide) 80 Mg Tablet 1 Tab PO DAILY Reported Ajisra-Cqdqi-Nnofbun Eye Ointm ([place]/Polymyx B Sulf/Dexameth) 3.5 Gm Oint...g. 3.5 Gm OS QHS Durezol (Difluprednate) 5 Ml Drops 1 Drop OS QID Aspir 81 (Aspirin) 81 Mg Tablet. 1 Tab PO DAILY Senokot (Sennosides) 8.6 Mg Tablet 3 Tab PO BID Morphine Sulfate Er (Morphine Sulfate) 60 Mg Cap.er.pel 60 Mg PO Metoprolol Tartrate 50 Mg Tablet 0.5 Tab PO DAILY Latanoprost 2.5 Ml Drops 1 Drop EACHEYE QHS Gemfibrozil 600 Mg Tablet 1 Tab PO BID Dorzolamide-Timolol Eye Drops (Dorzolamide Hcl/Timolol Maleat) 10 Ml Drops 1 Drop RIGHTEYE BID Lyrica (Pregabalin) 75 Mg Capsule 1 Cap PO BID Alprazolam 0.5 Mg Tablet 1 Tab PO TID Warfarin Sodium 4 Mg Tablet 1 Tab PO DAILY Fish Oil 1,000 Mg Capsule ([place]-3 Fatty Acids/Fish Oil) 1 Each Capsule 4 Each PO DAILY Pancrelipase Dr 5,000 Unit Cap (Lipase/Protease/Amylase) 1 Each Capsule.dr 4 Each PO Prilosec Otc (Omeprazole Magnesium) 20 Mg Tablet.dr 20 Mg PO DAILY Lyrica (Pregabalin) 25 Mg Capsule 50 Mg PO TID 30 Days Gemfibrozil 600 Mg Tablet 600 Mg PO BID Spironolactone 25 Mg Tablet 25 Mg PO DAILY Calcitriol 0.25 Mcg Capsule 0.25 Mcg PO DAILY Lantus (Insulin Glargine,Hum.rec.anlog) 100 Unit/1 Ml Vial 22 Unit SQ HS Humalog (Insulin Lispro) 100 Unit/1 Ml Vial 8 Unit SQ TID Folic Acid 1 Mg Tablet 2 Mg PO TID Ferosul (Ferrous Sulfate) 325 Mg Tablet 325 Mg PO Ropinirole Hcl 1 Mg Tablet 1 Mg PO HS Tamsulosin Hcl 0.4 Mg Cap.er.24h 0.8 Mg PO DAILY Travatan Z (Travoprost) 5 Ml Drops 5 Ml OP Vitals/I & O Vital Sign - Last 24 Hours 02/04/17 02/04/17 02/04/17 02/04/17 15:16 15:20 16:20 19:17 Temp 97.3 98.2 97.3 98.2 Pulse 68 90 Resp 16 20 20 B/P 127/55 168/80 Pulse Ox 97 97 97 95 O2 Delivery Room Air Nasal Cannula Nasal Cannula Nasal Cannula O2 Flow Rate 2.0 2.0 2.0 02/04/17 02/04/17 02/05/17 02/05/17 20:00 22:59 03:28 07:00 Temp 98.6 98.1 98.2 98.6 98.1 98.2 Pulse 76 70 70 Resp 18 20 18 B/P 149/66 150/73 170/84 Pulse Ox 98 100 2 O2 Delivery Nasal Cannula Nasal Cannula Nasal Cannula Nasal Cannula O2 Flow Rate 2.0 2.0 2.0 2.0 02/05/17 02/05/17 08:00 08:23 Pulse 70 B/P 170/84 O2 Delivery Nasal Cannula O2 Flow Rate 2.0 Intake and Output 02/04/17 02/04/17 02/05/17 15:00 23:00 07:00 Intake Total 360 ml 60 ml Output Total 151 ml 500 ml Balance 209 ml -440 ml CORBIN CHATMAN MD Feb 05, 2017 12:46
[2017-02-05 13:00] VITALS: BP 151/77
[2017-02-05] MEDS ORDERED: LIDOCAINE (700MG/PATCH) PATCH. TD SCH (13:00)
[2017-02-05] MEDS: LIDOCAINE (700MG/PATCH) PATCH. TD SCH (13:33)
[2017-02-05] MEDS: CEFTRIAXONE SODIUM 1 GM in IV NORMAL SALINE 50ML 50 ML IV SCH (13:36)
[2017-02-05] MEDS: MORPHINE ER 15 MG TABLET.ER PO SCH ×2 (13:37→20:49)
--- NOTE | 2017-02-05 14:18 | PDOC ---
PROGRESS NOTES Chief Complaint Chief Complaint 1. Oliguric, hyperkalemic renal failure POA, needing STAT initiation of HD ( first session 01/29/17), 2 TIM on CKD, maybe even ESRD now needing stat HD initiation 3. MEtabolic encephalopathy 4. chronic LE edema stable 5. CHF 4. Multivessel CAD s/p recent CABG 6. SSS with indwelling PPM 7. PAFIB; maintaining SR 8. Therapeutic INR on coumadin 9. Acute on chronic back pain, indwelling back stimulator - needs adjustment 10. DM2, on insulin 11. BPH 12. supratherapeutic INR with coumadin 13. AMS with hallucination 2/2 TIM , metabolic encephalopathy likely 14. acute resp failure with hypoventilation with opoids likely plan: 1. fu with renal, pt pulled out his rt IJ temp HD cath, will get a new one today 2. labs daily 3. cont home meds, on coumadin daily, INR daily, will hold if need to do a chest perm HD cath, fu with IR, RENAL 4. pain control, fu with dr. Peterson SSI, ON insulin, decrease today, dc aspart, levemir change to 15u qhs refuse Rehab, with bad experience before, has HH. hold coumadin, Tuesday may get a perm HD cath with IR when INR <1.8 uro consult for BPH, on flomax, add cetriaxone for ui with ash. US abd IR consult for HD perm Cath, HD daily now till tuesday. FFP 2 u on 02/02, 02/03. hold coumadin pulm consult. on percocet prn. abg better than 02/03 resume morphine 15mg bid, lidoderm patch as per dr. Peterson History of Present Illness History of Present Illness Numbers better after first session HD since Sat, new to pt Pt cant recall the details very involved in his care Only got 1 FFP yesterday (prior to HD cath insertion) (INR was 2,3 on warfarin for cardiac related issues) But HD cath inserted and now running second session HD I see that Hepatitis panel has been ordered- looking at OP HD set up now aware hallucination 02/02 rapid response night of 02/02, unresponsive,on bipap , 2/2 opoids likely lethargic 02/03 INR 4.5 to 3.9 02/03 Mental better on 02/04, bipap last night, low opoid intake. c/o back pain now HD daily x3 for 2 rounds now Vitals Vitals Vital Signs Date Time Temp Pulse Resp B/P Pulse Ox O2 Delivery O2 Flow Rate FiO2 02/05/17 13:00 98.0 70 20 151/77 94 Nasal Cannula 2.0 98.0 Physical Exam General: Alert, Oriented X3, Cooperative, No acute distress Heart: Regular rate, Normal S1, Normal S2, No murmurs, Gallops Lungs: Clear Abdomen: Normal bowel sounds, Soft, No tenderness, No hepatosplenomegaly, No masses Extremities: No clubbing, No cyanosis, No edema, Normal pulses, No tenderness/ swelling Skin: No rashes, No breakdown, No significant lesion Labs LABS Laboratory Tests Test 02/04/17 16:51 02/04/17 20:46 02/05/17 05:18 02/05/17 07:04 Glucose (Fingerstick) 202mg/dL (70-99) 358mg/dL (70-99) 226mg/dL (70-99) Hemoglobin 8.3g/dL (13.0-17.5) Sodium Level 139mmol/L (136-145) Potassium Level 3.6mmol/L (3.5-5.1) Chloride Level 102mmol/L (98-107) Carbon Dioxide Level 29mmol/L (21-32) Anion Gap 8 (6-14) Blood Urea Nitrogen 37mg/dL (8-26) Creatinine 2.4mg/dL (0.7-1.3) Estimated GFR (Cockcroft-Gault) 26.1 Glucose Level 260mg/dL (70-99) Calcium Level 8.4mg/dL (8.5-10.1) Phosphorus Level 2.3mg/dL (2.6-4.7) Magnesium Level 1.8mg/dL (1.8-2.4) Albumin 3.1g/dL (3.4-5.0) Test 02/05/17 12:58 Glucose (Fingerstick) 191mg/dL (70-99) Review of Systems Review of Systems no fever, chills, sob or chest pain Assessment and Plan Assessmemt and Plan Problems Medical Problems: (1) Acute hyperkalemia Status: Acute (2) Acute renal failure Status: Acute Problems: Comment Review of Relevant I have reviewed the following items sarah (where applicable) has been applied. Labs Laboratory Tests Test 02/03/17 16:25 02/03/17 20:26 02/04/17 05:00 02/04/17 07:47 Glucose (Fingerstick) 125mg/dL (70-99) 187mg/dL (70-99) 119mg/dL (70-99) White Blood Count 4.6x10^3/uL (4.0-11.0) Red Blood Count 2.33x10^6/uL (4.30-5.70) Hemoglobin 7.6g/dL (13.0-17.5) Hematocrit 23.0% (39.0-53.0) Mean Corpuscular Volume 99fL (79-100) Mean Corpuscular Hemoglobin 33pg (25-35) Mean Corpuscular Hemoglobin Concent 33g/dL (31-37) Red Cell Distribution Width 14.6% (11.5-14.5) Platelet Count 53x10^3/uL (140-400) Neutrophils (%) (Auto) 66% (31-73) Lymphocytes (%) (Auto) 20% (24-48) Monocytes (%) (Auto) 12% (0-9) Eosinophils (%) (Auto) 1% (0-3) Basophils (%) (Auto) 1% (0-3) Neutrophils # (Auto) 3.1x10^3uL (1.8-7.7) Lymphocytes # (Auto) 0.9x10^3/uL (1.0-4.8) Monocytes # (Auto) 0.6x10^3/uL (0.0-1.1) Eosinophils # (Auto) 0.0x10^3/uL (0.0-0.7) Basophils # (Auto) 0.0x10^3/uL (0.0-0.2) Sodium Level 138mmol/L (136-145) Potassium Level 4.0mmol/L (3.5-5.1) Chloride Level 99mmol/L (98-107) Carbon Dioxide Level 29mmol/L (21-32) Anion Gap 10 (6-14) Blood Urea Nitrogen 35mg/dL (8-26) Creatinine 2.8mg/dL (0.7-1.3) Estimated GFR (Cockcroft-Gault) 21.9 Glucose Level 111mg/dL (70-99) Calcium Level 8.2mg/dL (8.5-10.1) Test 02/04/17 08:10 02/04/17 11:00 02/04/17 16:51 02/04/17 20:46 Prothrombin Time 26.4SEC (11.7-14.0) Prothromb Time International Ratio 2.6 (0.8-1.1) O2 Saturation 97% (92-99) Arterial Blood pH 7.43 (7.35-7.45) Arterial Blood pCO2 at Patient Temp 45mmHg (35-46) Arterial Blood pO2 at Patient Temp 105mmHg (65-108) Arterial Blood HCO3 29mmol/L (21-28) Arterial Blood Base Excess 4mmol/L (-3-3) FiO2 28 Glucose (Fingerstick) 202mg/dL (70-99) 358mg/dL (70-99) Test 02/05/17 05:18 02/05/17 07:04 02/05/17 12:58 Hemoglobin 8.3g/dL (13.0-17.5) Sodium Level 139mmol/L (136-145) Potassium Level 3.6mmol/L (3.5-5.1) Chloride Level 102mmol/L (98-107) Carbon Dioxide Level 29mmol/L (21-32) Anion Gap 8 (6-14) Blood Urea Nitrogen 37mg/dL (8-26) Creatinine 2.4mg/dL (0.7-1.3) Estimated GFR (Cockcroft-Gault) 26.1 Glucose Level 260mg/dL (70-99) Calcium Level 8.4mg/dL (8.5-10.1) Phosphorus Level 2.3mg/dL (2.6-4.7) Magnesium Level 1.8mg/dL (1.8-2.4) Albumin 3.1g/dL (3.4-5.0) Glucose (Fingerstick) 226mg/dL (70-99) 191mg/dL (70-99) Laboratory Tests Test 02/04/17 16:51 02/04/17 20:46 02/05/17 05:18 02/05/17 07:04 Glucose (Fingerstick) 202mg/dL (70-99) 358mg/dL (70-99) 226mg/dL (70-99) Hemoglobin 8.3g/dL (13.0-17.5) Sodium Level 139mmol/L (136-145) Potassium Level 3.6mmol/L (3.5-5.1) Chloride Level 102mmol/L (98-107) Carbon Dioxide Level 29mmol/L (21-32) Anion Gap 8 (6-14) Blood Urea Nitrogen 37mg/dL (8-26) Creatinine 2.4mg/dL (0.7-1.3) Estimated GFR (Cockcroft-Gault) 26.1 Glucose Level 260mg/dL (70-99) Calcium Level 8.4mg/dL (8.5-10.1) Phosphorus Level 2.3mg/dL (2.6-4.7) Magnesium Level 1.8mg/dL (1.8-2.4) Albumin 3.1g/dL (3.4-5.0) Test 02/05/17 12:58 Glucose (Fingerstick) 191mg/dL (70-99) Microbiology 02/02/17 Urine Culture - Final, Complete 02/02/17 Urine Culture Result 1 (FADIA) - Final, Complete 02/02/17 Antimicrobic Susceptibility - Final, Complete Medications Current Medications Calcium Gluconate 1,000 mg 1X ONCE IVP Last administered on 01/29/17 14:19; Start 01/29/17 at 13:45; Stop 01/29/17 at 13:46; Status DC Dextrose 25 gm 1X ONCE IV Last administered on 01/29/17 14:29; Start 01/29/17 at 13:45; Stop 01/29/17 at 13:46; Status DC Insulin Human Regular (Novolin R Vial) 10 unit 1X ONCE IV Last administered on 01/29/17 14:32; Start 01/29/17 at 13:45; Stop 01/29/17 at 13:46; Status DC Furosemide (Lasix) 40 mg 1X ONCE IVP Last administered on 01/29/17 14:33; Start 01/29/17 at 13:45; Stop 01/29/17 at 13:46; Status DC Oxycodone/ Acetaminophen (Percocet 5/325) 1 tab 1X ONCE PO Last administered on 01/29/17 14:18; Start 01/29/17 at 14:00; Stop 01/29/17 at 14:02; Status DC Ondansetron HCl (Zofran) 4 mg PRN Q8HRS PRN IV NAUSEA/VOMITING; Start 01/29/17 at 14:15; Stop 01/29/17 at 14:43; Status DC Fentanyl Citrate 50 mcg 50 mcg PRN Q2HR PRN IV PAIN Last administered on 11:04; Start 01/29/17 at 14:15; Stop 01/30/17 at 14:14; Status DC Sodium Chloride (Iv Sodium Chloride 0.9% 1000ml Bag) 1,000 ml @ 75 mls/hr [id number] IV Last administered on 01/29/17 22:15; Start 01/29/17 at 14:12; Stop at 14:11; Status DC Acetaminophen (Tylenol) 650 mg PRN Q4HRS PRN PO FEVER; Start 01/29/17 at 14:15; Stop 01/30/17 at 14:14; Status DC Ondansetron HCl (Zofran) 4 mg PRN Q6HRS PRN IV NAUSEA/VOMITING; Start 01/29/17 at 14:39 Alprazolam (Xanax) 0.5 mg PRN TID PRN PO nerves Last administered on 02/03/17 21:11; Start 01/29/17 at 14:45 Calcitriol (Rocaltrol) 0.25 mcg DAILY PO Last administered on 02/05/17 08:24; Start 01/30/17 at 09:00 Dorzolamide/ Timolol (Cosopt) 1 drop BID OU Last administered on 02/05/17 08: 26; Start 01/29/17 at 21:00 Ferrous Sulfate (Feosol) 325 mg DAILY PO Last administered on 02/05/17 08:24; Start 01/30/17 at 09:00 Folic Acid (Folic Acid) 2 mg TID PO Last administered on 02/05/17 13:37; Start 01/29/17 at 15:30 Gemfibrozil (Lopid) 600 mg BIDBFRMEAL PO Last administered on 02/05/17 08:24; Start 01/29/17 at 16:30 Latanoprost (Xalatan) 1 drop QHS OU Last administered on 02/04/17 21:01; Start 01/29/17 at 21:00 Amylase/Lipase/ Protease (Zenpep 5,000) 4 cap DAILY PO Last administered on 08:24; Start 01/30/17 at 09:00 Metoprolol Tartrate (Lopressor) 50 mg DAILY PO Last administered on 02/02/17 08 :46; Start 01/30/17 at 09:00; Stop 02/02/17 at 11:13; Status DC Fish Oil (Fish Oil) 1,000 mg DAILY PO Last administered on 02/05/17 08:24; Start 01/30/17 at 09:00 Pregabalin (Lyrica) 75 mg BID PO Last administered on 02/05/17 08:25; Start at 21:00 Ropinirole HCl (Requip) 1 mg HS PO Last administered on 02/04/17 21:00; Start 01/29/17 at 21:00 Sennosides (Senna) 8.6 mg BID PO Last administered on 02/05/17 08:24; Start at 21:00 Spironolactone (Aldactone) 25 mg DAILY PO Last administered on 02/02/17 08:43; Start 01/30/17 at 09:00; Stop 02/02/17 at 11:13; Status DC Tamsulosin HCl (Flomax) 0.8 mg DAILY PO Last administered on 02/05/17 08:24; Start 01/30/17 at 09:00 Insulin Detemir (Levemir) 22 units QHS SQ ; Start 01/29/17 at 21:00; Stop at 11:22; Status DC Insulin Aspart (Novolog) 8 units TIDBFRMEAL SQ Last administered on 01/30/17 08 :48; Start 01/29/17 at 16:30; Stop 01/30/17 at 11:22; Status DC Pantoprazole Sodium (Protonix) 40 mg DAILYAC PO Last administered on 02/05/17 08:23; Start 01/30/17 at 07:30 Morphine Sulfate (Ms Contin) 30 mg BID PO Last administered on 02/02/17 08:46; Start 01/29/17 at 21:00; Stop 02/02/17 at 12:11; Status DC Phytonadione (Mephyton) 5 mg 1X ONCE PO ; Start 01/29/17 at 15:30; Stop 01/29/17 at 15:31; Status DC Insulin Aspart (Novolog) 0-9 UNITS TIDWMEALS SQ Last administered on 02/05/17 13:42; Start 01/29/17 at 17:00 Dextrose 12.5 gm 12.5 gm PRN Q15MIN PRN IV SEE COMMENTS Last administered on 18:40; Start 01/29/17 at 14:45 Sodium Chloride (Iv Sodium Chloride 0.9% 500ml Bag) 500 ml @ 500 mls/hr 1X ONCE IV Last administered on 01/29/17 15:15; Start 01/29/17 at 15:15; Stop at 16:14; Status DC Heparin Sodium (Porcine) 25474 unit 10,000 unit STK-MED ONCE .ROUTE ; Start 01/29 at 15:30; Stop 01/29/17 at 15:31; Status DC Heparin Sodium/ Sodium Chloride 500 ml @ As Directed STK-MED ONCE .ROUTE ; Start 01/29/17 at 15:30; Stop 01/29/17 at 15:31; Status DC Lidocaine/ Epinephrine (Xylocaine 1%-Epi 1:100,000) 20 ml STK-MED ONCE .ROUTE ; Start 01/29/17 at 15:31; Stop 01/29/17 at 15:32; Status DC Lidocaine/ Epinephrine (Xylocaine 1%-Epi 1:100,000) 4 ml 1X ONCE IJ Last administered on 01/29/17 16:30; Start 01/29/17 at 16:00; Stop 01/29/17 at 16:01; Status DC Heparin Sodium/ Sodium Chloride 60 unit 1X ONCE IV Last administered on 16:30; Start 01/29/17 at 16:00; Stop 01/29/17 at 16:01; Status DC Heparin Sodium (Porcine) 2500 unit 2,500 unit 1X ONCE INT CAT Last administered on 01/29/17 16:30; Start 01/29/17 at 16:00; Stop 01/29/17 at 16:01; Status DC Sodium Chloride 1,000 ml @ 1,000 mls/hr Q1H PRN IV hypotension; Start 01/29/17 at 17:31; Stop 01/29/17 at 23:30; Status DC Albumin Human (Albuminar) 200 ml @ 200 mls/hr 1X PRN PRN IV Hypotension; Start 01/29/17 at 17:45; Stop 01/29/17 at 23:30; Status DC Sodium Chloride (Normal Saline Flush) 10 ml 1X PRN PRN IV AP 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; Start 01/29/17 at 17:45; Stop 01/29/17 at 23:30; Status DC Sodium Chloride (Normal Saline Flush) 10 ml 1X PRN PRN IV MANAGER AREA 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; Start 01/29/17 at 17:45; Stop 01/29/17 at 23:30; Status DC Info (PHARMACY MONITORING -- do not chart) 1 each PRN DAILY PRN MC SEE COMMENTS ; Start 01/29/17 at 17:45 Info (PHARMACY MONITORING -- do not chart) 1 each PRN DAILY PRN MC SEE COMMENTS ; Start 01/29/17 at 17:45; Status UNV Aspirin (Ecotrin) 81 mg DAILY PO Last administered on 02/05/17 08:24; Start at 09:00 Warfarin Sodium (Coumadin) 4 mg DAILY16 PO Last administered on 02/01/17 16:40 ; Start 01/29/17 at 19:00; Stop 02/02/17 at 12:11; Status DC Warfarin Sodium (Coumadin Per Physician) 1 each PRN DAILY PRN MC SEE COMMENTS Last administered on 02/03/17 13:55; Start 01/29/17 at 18:30; Stop 02/04/17 at 14 :20; Status DC Insulin Aspart (Novolog) 5 units TIDBFRMEAL SQ Last administered on 02/01/17 11 :50; Start 01/30/17 at 11:30; Stop 02/02/17 at 11:01; Status DC Insulin Detemir 18 units 18 units QHS SQ Last administered on 01/31/17 21:31; Start 01/30/17 at 21:00; Stop 02/02/17 at 11:01; Status DC Sodium Chloride (Iv Sodium Chloride 0.9% 1000ml Bag) 1,000 ml @ 1,000 mls/hr Q1H PRN IV hypotension; Start 01/30/17 at 11:38; Stop 01/30/17 at 17:37; Status DC Sodium Chloride (Normal Saline Flush) 10 ml 1X PRN PRN IV AP 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; Start 01/30/17 at 11:45; Stop 01/31/17 at 11:44; Status DC Sodium Chloride (Normal Saline Flush) 10 ml 1X PRN PRN IV MANAGER AREA 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; Start 01/30/17 at 11:45; Stop 01/31/17 at 11:44; Status DC Info (PHARMACY MONITORING -- do not chart) 1 each PRN DAILY PRN MC SEE COMMENTS ; Start 01/30/17 at 11:45; Status UNV Info (PHARMACY MONITORING -- do not chart) 1 each PRN DAILY PRN MC SEE COMMENTS ; Start 01/30/17 at 11:45; Status UNV Oxycodone/ Acetaminophen (Percocet 5/325) 1 tab PRN Q4HRS PRN PO PAIN Last administered on 02/05/17 08:25; Start 01/30/17 at 18:45 Oxycodone/ Acetaminophen (Percocet 10/325) 1 tab PRN Q4HRS PRN PO PAIN Last administered on 02/01/17 14:03; Start 01/30/17 at 18:45; Stop 02/02/17 at 12:11; Status DC Insulin Aspart (Novolog) 9 units 1X ONCE SQ Last administered on 01/30/17 21: 57; Start 01/30/17 at 21:30; Stop 01/30/17 at 21:31; Status DC Lidocaine/Sodium Bicarbonate (Buffered Lidocaine 1%) 3 ml 1X ONCE IJ Last administered on 01/31/17 12:15; Start 01/31/17 at 12:15; Stop 01/31/17 at 12:16; Status DC Heparin Sodium/ Sodium Chloride 60 unit 1X ONCE IV Last administered on 13:02; Start 01/31/17 at 12:15; Stop 01/31/17 at 12:16; Status DC Heparin Sodium (Porcine) 2,500 unit 1X ONCE INT CAT Last administered on 13:02; Start 01/31/17 at 12:15; Stop 01/31/17 at 12:16; Status DC Heparin Sodium (Porcine) 10,000 unit STK-MED ONCE .ROUTE ; Start 01/31/17 at 12: 18; Stop 01/31/17 at 12:19; Status DC Fentanyl Citrate (Fentanyl 2ml Vial) 100 mcg STK-MED ONCE .ROUTE ; Start at 12:29; Stop 01/31/17 at 12:30; Status DC Midazolam HCl (Versed) 2 mg STK-MED ONCE .ROUTE ; Start 01/31/17 at 12:29; Stop 01/31/17 at 12:30; Status DC Midazolam HCl (Versed) 2 mg 1X ONCE IV Last administered on 01/31/17 13:01; Start 01/31/17 at 13:00; Stop 01/31/17 at 13:01; Status DC Non-Formulary Medication 1 ea QID OS Last administered on 02/05/17 08:26; Start 01/31/17 at 14:00 Non-Formulary Medication 1 ea QHS OS Last administered on 02/04/17 21:01; Start 01/31/17 at 21:00 Darbepoetin Joshua (Aranesp) 60 mcg WEEKLYHS SQ Last administered on 02/01/17 21: 25; Start 02/01/17 at 21:00 Insulin Detemir (Levemir) 10 units QHS SQ Last administered on 02/04/17 21:30 ; Start 02/02/17 at 21:00 Metoprolol Tartrate (Lopressor) 25 mg DAILY PO Last administered on 02/05/17 08:23; Start 02/03/17 at 09:00 Morphine Sulfate (Ms Contin) 20 mg BID PO ; Start 02/02/17 at 21:00; Stop at 21:00; Status DC Morphine Sulfate (Ms Contin) 15 mg BID PO Last administered on 02/02/17 21:23; Start 02/02/17 at 21:00; Stop 02/03/17 at 11:23; Status DC Naloxone HCl 0.2 mg 0.2 mg 1X ONCE IV Last administered on 02/02/17 23:28; Start 02/02/17 at 23:30; Stop 02/02/17 at 23:31; Status DC Sodium Chloride (Iv Sodium Chloride 0.9% 1000ml Bag) 1,000 ml @ 1,000 mls/hr Q1H PRN IV hypotension; Start 02/03/17 at 11:00; Stop 02/03/17 at 23:00; Status DC Sodium Chloride (Normal Saline Flush) 10 ml 1X PRN PRN IV AP 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; Start 02/03/17 at 11:15; Stop 02/03/17 at 23:00; Status DC Sodium Chloride (Normal Saline Flush) 10 ml 1X PRN PRN IV MANAGER AREA 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; Start 02/03/17 at 11:15; Stop 02/03/17 at 23:00; Status DC Info (PHARMACY MONITORING -- do not chart) 1 each PRN DAILY PRN MC SEE COMMENTS ; Start 02/03/17 at 11:15; Status UNV Info 1 each 1 each PRN DAILY PRN MC SEE COMMENTS; Start 02/03/17 at 11:15; Status UNV Ceftriaxone Sodium 1 gm/ Sodium Chloride 50 ml @ 100 mls/hr Q24H IV Last administered on 02/05/17 13:36; Start 02/03/17 at 14:00 Sodium Chloride 1,000 ml @ 1,000 mls/hr Q1H PRN IV hypotension; Start 02/04/17 at 07:53; Stop 02/04/17 at 13:52; Status DC Albumin Human (Albuminar) 200 ml @ 200 mls/hr 1X PRN PRN IV Hypotension; Start 02/04/17 at 08:00; Stop 02/04/17 at 13:59; Status DC Acetaminophen (Tylenol) 500 mg 1X PRN PRN PO MILD PAIN / TEMP Last administered on 02/04/17 09:32; Start 02/04/17 at 08:00; Stop 02/05/17 at 07:59 ; Status DC Diphenhydramine HCl (Benadryl) 25 mg 1X PRN PRN IV ITCHING; Start 02/04/17 at 08:00; Stop 02/05/17 at 07:59; Status DC Diphenhydramine HCl (Benadryl) 25 mg 1X PRN PRN IV ITCHING; Start 02/04/17 at 08:00; Stop 02/05/17 at 07:59; Status DC Sodium Chloride (Normal Saline Flush) 10 ml 1X PRN PRN IV AP 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; Start 02/04/17 at 08:00; Stop 02/05/17 at 07:59; Status DC Sodium Chloride (Normal Saline Flush) 10 ml 1X PRN PRN IV MANAGER AREA 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; Start 02/04/17 at 08:00; Stop 02/05/17 at 07:59; Status DC Labetalol HCl 10 mg 10 mg PRN Q1HR PRN IVP SBP > 180; Start 02/04/17 at 08:00; Stop 02/05/17 at 07:59; Status DC Sodium Chloride (Iv Sodium Chloride 0.9% 1000ml Bag) 1,000 ml @ 400 mls/hr Q2H30M PRN IV PATENCY; Start 02/04/17 at 07:53; Stop 02/04/17 at 19:52; Status DC Info 1 each 1 each PRN DAILY PRN MC SEE COMMENTS; Start 02/04/17 at 08:00; Status UNV Magnesium Sulfate/ Dextrose 50 ml @ 25 mls/hr PRN DAILY PRN IV for Mag < 1.7 on am labs; Start 02/04/17 at 09:00 Sodium Chloride (Iv Sodium Chloride 0.9% 1000ml Bag) 1,000 ml @ 1,000 mls/hr Q1H PRN IV hypotension; Start 02/05/17 at 08:25; Stop 02/05/17 at 14:24 Acetaminophen (Tylenol) 500 mg 1X PRN PRN PO MILD PAIN / TEMP; Start 02/05/17 at 08:30; Stop 02/06/17 at 08:29 Diphenhydramine HCl (Benadryl) 25 mg 1X PRN PRN IV ITCHING; Start 02/05/17 at 08:30; Stop 02/06/17 at 08:29 Diphenhydramine HCl (Benadryl) 25 mg 1X PRN PRN IV ITCHING; Start 02/05/17 at 08:30; Stop 02/06/17 at 08:29 Sodium Chloride (Normal Saline Flush) 10 ml 1X PRN PRN IV AP 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; Start 02/05/17 at 08:30; Stop 02/06/17 at 08:29 Sodium Chloride (Normal Saline Flush) 10 ml 1X PRN PRN IV MANAGER AREA 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; Start 02/05/17 at 08:30; Stop 02/06/17 at 08:29 Labetalol HCl 10 mg 10 mg PRN Q1HR PRN IVP SBP > 180; Start 02/05/17 at 08:30; Stop 02/06/17 at 08:29 Sodium Chloride (Iv Sodium Chloride 0.9% 1000ml Bag) 1,000 ml @ 400 mls/hr Q2H30M PRN IV PATENCY; Start 02/05/17 at 08:25; Stop 02/05/17 at 20:24 Info (PHARMACY MONITORING -- do not chart) 1 each PRN DAILY PRN MC SEE COMMENTS ; Start 02/05/17 at 08:30; Status UNV Lidocaine (Lidoderm) 1 patch DAILY TD Last administered on 02/05/17 13:33; Start 02/05/17 at 12:00 Morphine Sulfate (Ms Contin) 15 mg BID PO Last administered on 02/05/17 13:37 ; Start 02/05/17 at 12:00 Lidocaine (Lidoderm) 1 patch DAILY TD ; Start 02/05/17 at 13:00 Active Scripts Active Lasix (Furosemide) 80 Mg Tablet 1 Tab PO DAILY Reported Zkodzf-Uvyob-Pneakkk Eye Ointm (Chapito/Polymyx B Sulf/Dexameth) 3.5 Gm Oint...g. 3.5 Gm OS QHS Durezol (Difluprednate) 5 Ml Drops 1 Drop OS QID Aspir 81 (Aspirin) 81 Mg Tablet. 1 Tab PO DAILY Senokot (Sennosides) 8.6 Mg Tablet 3 Tab PO BID Morphine Sulfate Er (Morphine Sulfate) 60 Mg Cap.er.pel 60 Mg PO Metoprolol Tartrate 50 Mg Tablet 0.5 Tab PO DAILY Latanoprost 2.5 Ml Drops 1 Drop EACHEYE QHS Gemfibrozil 600 Mg Tablet 1 Tab PO BID Dorzolamide-Timolol Eye Drops (Dorzolamide Hcl/Timolol Maleat) 10 Ml Drops 1 Drop RIGHTEYE BID Lyrica (Pregabalin) 75 Mg Capsule 1 Cap PO BID Alprazolam 0.5 Mg Tablet 1 Tab PO TID Warfarin Sodium 4 Mg Tablet 1 Tab PO DAILY Fish Oil 1,000 Mg Capsule ([place]-3 Fatty Acids/Fish Oil) 1 Each Capsule 4 Each PO DAILY Pancrelipase Dr 5,000 Unit Cap (Lipase/Protease/Amylase) 1 Each Capsule.dr 4 Each PO Prilosec Otc (Omeprazole Magnesium) 20 Mg Tablet.dr 20 Mg PO DAILY Lyrica (Pregabalin) 25 Mg Capsule 50 Mg PO TID 30 Days Gemfibrozil 600 Mg Tablet 600 Mg PO BID Spironolactone 25 Mg Tablet 25 Mg PO DAILY Calcitriol 0.25 Mcg Capsule 0.25 Mcg PO DAILY Lantus (Insulin Glargine,Hum.rec.anlog) 100 Unit/1 Ml Vial 22 Unit SQ HS Humalog (Insulin Lispro) 100 Unit/1 Ml Vial 8 Unit SQ TID Folic Acid 1 Mg Tablet 2 Mg PO TID Ferosul (Ferrous Sulfate) 325 Mg Tablet 325 Mg PO Ropinirole Hcl 1 Mg Tablet 1 Mg PO HS Tamsulosin Hcl 0.4 Mg Cap.er.24h 0.8 Mg PO DAILY Travatan Z (Travoprost) 5 Ml Drops 5 Ml OP Vitals/I & O Vital Sign - Last 24 Hours 02/04/17 02/04/17 02/04/17 02/04/17 15:16 15:20 16:20 19:17 Temp 97.3 98.2 97.3 98.2 Pulse 68 90 Resp 20 B/P 127/55 168/80 Pulse Ox 97 97 97 95 O2 Delivery Room Air Nasal Cannula Nasal Cannula Nasal Cannula O2 Flow Rate 2.0 2.0 2.0 02/04/17 02/04/17 02/05/17 02/05/17 20:00 22:59 03:28 07:00 Temp 98.6 98.1 98.2 98.6 98.1 98.2 Pulse 76 70 70 Resp 20 18 B/P 149/66 150/73 170/84 Pulse Ox 98 100 2 O2 Delivery Nasal Cannula Nasal Cannula Nasal Cannula Nasal Cannula O2 Flow Rate 2.0 2.0 2.0 2.0 02/05/17 02/05/17 02/05/17 02/05/17 08:00 08:23 13:00 13:00 Temp 98.0 98.0 98.0 98.0 Pulse 70 70 70 Resp 20 20 B/P 170/84 151/77 151/77 Pulse Ox 94 94 O2 Delivery Nasal Cannula Nasal Cannula Nasal Cannula O2 Flow Rate 2.0 2.0 2.0 Intake and Output 3/09/1302/04/17 02/05/17 15:00 23:00 07:00 Intake Total 360 ml 60 ml Output Total 151 ml 500 ml Balance 209 ml -440 ml JAMES QUAN MD Feb 05, 2017 14:18
[2017-02-05 15:00] VITALS: BP 142/63
--- NOTE | 2017-02-05 15:57 | PDOC ---
Provider Note Provider Note RENAL DIALYSIS / BLAIR HD done. F180 / HCO3 / 3K Qb 450 ml/min Qd 600 ml/min UF to dry weight. Well tolerated. No complications. CPM. VSS. Labs reviewed. Supportive care. Jason Pinto M.D. JASON PINTO MD Feb 05, 2017 15:57
[2017-02-05] MEDS ORDERED: INSULIN ASPART 300 UNITS/3 ML INSULN.PEN SQ ONE (17:00)
[2017-02-05 19:59] VITALS: BP 129/60
[2017-02-05] MEDS: rOPINIRole 1 MG TABLET. PO SCH (20:48)
[2017-02-05] MEDS: LATANOPROST 0.005% OPHTH SOLUTION 2.5ML BOTTLE. OU SCH (20:50)
[2017-02-05] MEDS: NEOMYCIN OS SCH (20:50)
[2017-02-05] MEDS: DEXAMETHASONE OS SCH (20:50)
[2017-02-05] MEDS: [UNRECOGNIZED DRUG - OTHER] OS SCH (20:50)
[2017-02-05] MEDS ORDERED: INSULIN DETEMIR 300 UNITS/3 ML INSULN.PEN. SQ SCH (21:00)
[2017-02-05 23:59] VITALS: BP 122/63
[2017-02-06 03:59] VITALS: BP 137/66
[2017-02-06 07:00] VITALS: BP 136/59
[2017-02-06] MEDS ORDERED: INSULIN ASPART 300 UNITS/3 ML INSULN.PEN SQ SCH (07:30)
[2017-02-06] MEDS: LIDOCAINE (700MG/PATCH) PATCH. TD SCH (08:08)
[2017-02-06] MEDS: SENNOSIDES 8.6 MG TABLET PO SCH ×2 (08:09→20:26)
[2017-02-06] MEDS: GEMFIBROZIL 600 MG TABLET. PO SCH ×2 (08:09→16:48)
[2017-02-06] MEDS: LIPASE/PROTEAS/AMYLASE 5/17/27 CAPSULE.DR. PO SCH (08:09)
[2017-02-06] MEDS: FOLIC ACID 1 MG TABLET PO SCH ×3 (08:09→20:26)
[2017-02-06] MEDS: OMEGA-3 FATTY ACIDS/FISH OIL 1,000 MG CAPSULE. PO SCH (08:09)
[2017-02-06] MEDS: MORPHINE ER 15 MG TABLET.ER PO SCH ×2 (08:10→20:27)
[2017-02-06] MEDS: ASPIRIN ENTERIC COATED 81 MG TABLET.DR. PO SCH (08:10)
[2017-02-06] MEDS: METOPROLOL TART IMMED RELEASE 25 MG TABLET PO SCH (08:10)
[2017-02-06] MEDS: PANTOPRAZOLE 40 MG TABLET. PO SCH (08:10)
[2017-02-06] MEDS: CALCITRIOL 0.25 MCG CAPSULE PO SCH (08:11)
[2017-02-06] MEDS: FERROUS SULFATE 325 MG TABLET PO SCH (08:11)
[2017-02-06] MEDS: ALPRAZOLAM 0.5 MG TABLET PO PRN (08:11)
[2017-02-06] MEDS: PREGABALIN 75 MG CAPSULE PO SCH ×2 (08:11→20:26)
[2017-02-06] MEDS: DORZOLAMIDE/TIMOLOL 2%/0.5% OPHTH SOLUTION 10ML BOTTLE. OU SCH ×2 (08:11→20:31)
[2017-02-06] MEDS: DUREZOL OS SCH ×4 (08:12→20:31)
[2017-02-06] MEDS: INSULIN ASPART 300 UNITS/3 ML INSULN.PEN SQ SCH ×5 (08:23→17:00)
--- NOTE | 2017-02-06 09:27 | PDOC ---
PULMONARY PROGRESS NOTES Subjective awake, off BIPAP Vitals Vital Signs Date Time Temp Pulse Resp B/P Pulse Ox O2 Delivery O2 Flow Rate FiO2 02/06/17 08:10 70 137/66 02/06/17 07:00 98.4 22 96 Room Air 98.4 02/06/17 00:55 2.0 General: Alert, No acute distress Lungs: Clear Cardiovascular: S1, S2 Abdomen: Soft Neuro Exam: Alert Extremities: Other (1+edema) Skin: Warm Labs Laboratory Tests Test 02/04/17 11:00 02/04/17 16:51 02/04/17 20:46 02/05/17 05:18 O2 Saturation 97% (92-99) Arterial Blood pH 7.43 (7.35-7.45) Arterial Blood pCO2 at Patient Temp 45mmHg (35-46) Arterial Blood pO2 at Patient Temp 105mmHg (65-108) Arterial Blood HCO3 29mmol/L (21-28) Arterial Blood Base Excess 4mmol/L (-3-3) FiO2 28 Glucose (Fingerstick) 202mg/dL (70-99) 358mg/dL (70-99) Hemoglobin 8.3g/dL (13.0-17.5) Sodium Level 139mmol/L (136-145) Potassium Level 3.6mmol/L (3.5-5.1) Chloride Level 102mmol/L (98-107) Carbon Dioxide Level 29mmol/L (21-32) Anion Gap 8 (6-14) Blood Urea Nitrogen 37mg/dL (8-26) Creatinine 2.4mg/dL (0.7-1.3) Estimated GFR (Cockcroft-Gault) 26.1 Glucose Level 260mg/dL (70-99) Calcium Level 8.4mg/dL (8.5-10.1) Phosphorus Level 2.3mg/dL (2.6-4.7) Magnesium Level 1.8mg/dL (1.8-2.4) Albumin 3.1g/dL (3.4-5.0) Test 02/05/17 07:04 02/05/17 12:58 02/05/17 16:37 02/05/17 21:07 Glucose (Fingerstick) 226mg/dL (70-99) 191mg/dL (70-99) 400mg/dL (70-99) 382mg/dL (70-99) Test 02/06/17 04:15 02/06/17 07:38 Magnesium Level 1.5mg/dL (1.8-2.4) Glucose (Fingerstick) 320mg/dL (70-99) Laboratory Tests Test 02/05/17 12:58 02/05/17 16:37 02/05/17 21:07 02/06/17 04:15 Glucose (Fingerstick) 191mg/dL (70-99) 400mg/dL (70-99) 382mg/dL (70-99) Magnesium Level 1.5mg/dL (1.8-2.4) Test 02/06/17 07:38 Glucose (Fingerstick) 320mg/dL (70-99) Medications Active Scripts Medications Dose Route/Sig Days Date Category Fnaqrj-Auppy-Loqknej Eye Ointm (Chapito/Polymyx B Sulf/Dexameth) 3.5 Gm Oint...g. 3.5 Gm OS QHS 01/29/17 Reported Durezol (Difluprednate) 5 Ml Drops 1 Drop OS QID 01/29/17 Reported Lasix (Furosemide) 80 Mg Tablet 1 Tab PO DAILY 01/05/17 Rx Aspir 81 (Aspirin) 81 Mg Tablet.dr 1 Tab PO DAILY 09/18/15 Reported Senokot (Sennosides) 8.6 Mg Tablet 3 Tab PO BID 09/18/15 Reported Morphine Sulfate Er (Morphine Sulfate) 60 Mg Cap.er.pel 60 Mg PO 09/18/15 Reported Metoprolol Tartrate 50 Mg Tablet 0.5 Tab PO DAILY 09/18/15 Reported Latanoprost 2.5 Ml Drops 1 Drop EACHEYE QHS 09/18/15 Reported Gemfibrozil 600 Mg Tablet 1 Tab PO BID 09/18/15 Reported Dorzolamide-Timolol Eye Drops (Dorzolamide Hcl/Timolol Maleat) 10 Ml Drops 1 Drop RIGHTEYE BID 09/18/15 Reported Lyrica (Pregabalin) 75 Mg Capsule 1 Cap PO BID 09/18/15 Reported Alprazolam 0.5 Mg Tablet 1 Tab PO TID 09/18/15 Reported Warfarin Sodium 4 Mg Tablet 1 Tab PO DAILY 09/18/15 Reported Fish Oil 1,000 Mg Capsule (Weldon-3 Fatty Acids/Fish Oil) 1 Each Capsule 4 Each PO DAILY 09/18/15 Reported Pancrelipase 5,000 Unit Cap (Lipase/Protease/Amylase) 1 Each Capsule.dr 4 Each PO 11/20/14 Reported Prilosec Otc (Omeprazole Magnesium) 20 Mg Tablet. 20 Mg PO DAILY 11/20/14 Reported Lyrica (Pregabalin) 25 Mg Capsule 50 Mg PO TID 30 11/20/14 Reported Gemfibrozil 600 Mg Tablet 600 Mg PO BID 11/20/14 Reported Spironolactone 25 Mg Tablet 25 Mg PO DAILY 11/20/14 Reported Calcitriol 0.25 Mcg Capsule 0.25 Mcg PO DAILY 11/20/14 Reported Lantus (Insulin Glargine,Hum.rec.anlog) 100 Unit/1 Ml Vial 22 Unit SQ HS 11/20/14 Reported Humalog (Insulin Lispro) 100 Unit/1 Ml Vial 8 Unit SQ TID 11/20/14 Reported Folic Acid 1 Mg Tablet 2 Mg PO TID 11/20/14 Reported Ferosul (Ferrous Sulfate) 325 Mg Tablet 325 Mg PO 11/20/14 Reported Ropinirole Hcl 1 Mg Tablet 1 Mg PO HS 11/20/14 Reported Tamsulosin Hcl 0.4 Mg Cap.er.24h 0.8 Mg PO DAILY 11/20/14 Reported Travatan Z (Travoprost) 5 Ml Drops 5 Ml OP 11/20/14 Reported Impression . 1. Acute toxic encephalopathy, secondary to narcotic overdose. 2. No significant history of tobacco use. 3. Acute kidney injury on chronic kidney disease. 4. Clear chest x-ray. Plan . 1. ABGs. improved. 2. compensated hypercapnia. 3. Narcotic doses have been minimized. Now, he is on oxycodone p.r.n. and MS Contin has been stopped. I would recommend to continue to keep the narcotics at the lowest dose as possible. 4. Continue dialysis per Nephrology. 5. Discussed with RN / jolynn pulmonary chi for d/c MAZIN CROWLEY MD Feb 06, 2017 09:27
[2017-02-06] MEDS ORDERED: MAGNESIUM SULFATE 2GM 50 ML IV ONE ×2 (10:00→10:30)
[2017-02-06] MEDS: TAMSULOSIN 0.4 MG CAP.ER.24H. PO SCH (10:20)
[2017-02-06 11:00] VITALS: BP 141/66
[2017-02-06 11:14] LABS: ALBUMIN 3.4 g/dL (3.4-5.0); CALCIUM 8.7 mg/dL (8.5-10.1); CREATININE 2.3 mg/dL (0.7-1.3); GFR 27.4; PHOSPHORUS 1.7 mg/dL (2.6-4.7); POTASSIUM 3.4 mmol/L (3.5-5.1)
[2017-02-06 11:28] LABS: INR 1.5 (0.8-1.1); PROTHROMBIN TIME PATIENT 16.8 SEC (11.7-14.0)
[2017-02-06] MEDS ORDERED: CYCLOBENZAPRINE 10 MG TABLET. PO ONE (11:30)
--- NOTE | 2017-02-06 13:36 | PDOC ---
PROGRESS NOTES Chief Complaint Chief Complaint 1. Oliguric, hyperkalemic renal failure POA, needing STAT initiation of HD ( first session 01/29/17), 2 TMI on CKD, maybe even ESRD now needing stat HD initiation 3. MEtabolic encephalopathy 4. chronic LE edema stable 5. CHF 4. Multivessel CAD s/p recent CABG 6. SSS with indwelling PPM 7. PAFIB; maintaining SR 8. Therapeutic INR on coumadin 9. Acute on chronic back pain, indwelling back stimulator - needs adjustment 10. DM2, on insulin 11. BPH 12. supratherapeutic INR with coumadin 13. AMS with hallucination 2/2 TIM , metabolic encephalopathy likely 14. acute resp failure with hypoventilation with opoids likely plan: 1. fu with renal, pt pulled out his rt IJ temp HD cath, will get a new one today 2. labs daily 3. refuse Rehab, with bad experience before, has HH. 4. pain control, fu with dr. Peterson SSI, ON insulin, decrease today, dc aspart, levemir change to 15u qhs hold coumadin, Tuesday may get a perm HD cath with IR when INR <1.8 uro consult for BPH, on flomax, add cetriaxone for ui with ash. US abd IR consult for HD perm Cath, HD daily now till tuesday. FFP 2 u on 02/02, 02/03. hold coumadin pulm consult. on percocet prn. abg better than 02/03 resume morphine 15mg bid, lidoderm patch as per dr. Peterson. replete Ian, k , MAG. Flexiril x1 HD perm cath tmr. dc soon. History of Present Illness History of Present Illness Numbers better after first session HD since Sat, new to pt Pt cant recall the details very involved in his care Only got 1 FFP yesterday (prior to HD cath insertion) (INR was 2,3 on warfarin for cardiac related issues) But HD cath inserted and now running second session HD I see that Hepatitis panel has been ordered- looking at OP HD set up now aware hallucination 02/02 rapid response night of 02/02, unresponsive,on bipap , 2/2 opoids likely lethargic 02/03 inr 1.5 today Mental better on 02/04, bipap last night, low opoid intake. c/o back pain now HD daily x3 for 2 rounds now Vitals Vitals Vital Signs Date Time Temp Pulse Resp B/P Pulse Ox O2 Delivery O2 Flow Rate FiO2 02/06/17 08:10 70 137/66 02/06/17 07:00 98.4 22 96 Room Air 98.4 02/06/17 00:55 2.0 Physical Exam General: Alert, Oriented X3, Cooperative, No acute distress Heart: Regular rate, Normal S1, Normal S2, No murmurs, Gallops Lungs: Clear Abdomen: Normal bowel sounds, Soft, No tenderness, No hepatosplenomegaly, No masses Extremities: No clubbing, No cyanosis, No edema, Normal pulses, No tenderness/ swelling Skin: No rashes, No breakdown, No significant lesion Labs LABS Laboratory Tests Test 02/05/17 16:37 02/05/17 21:07 02/06/17 04:15 02/06/17 07:38 Glucose (Fingerstick) 400mg/dL (70-99) 382mg/dL (70-99) 320mg/dL (70-99) Magnesium Level 1.5mg/dL (1.8-2.4) Test 02/06/17 10:51 02/06/17 11:10 Prothrombin Time 16.8SEC (11.7-14.0) Prothromb Time International Ratio 1.5 (0.8-1.1) Sodium Level 143mmol/L (136-145) Potassium Level 3.4mmol/L (3.5-5.1) Chloride Level 102mmol/L (98-107) Carbon Dioxide Level 30mmol/L (21-32) Anion Gap 11 (6-14) Blood Urea Nitrogen 43mg/dL (8-26) Creatinine 2.3mg/dL (0.7-1.3) Estimated GFR (Cockcroft-Gault) 27.4 Glucose Level 239mg/dL (70-99) Calcium Level 8.7mg/dL (8.5-10.1) Phosphorus Level 1.7mg/dL (2.6-4.7) Albumin 3.4g/dL (3.4-5.0) Glucose (Fingerstick) 211mg/dL (70-99) Review of Systems Review of Systems no fever, chills, sob or chest pain Assessment and Plan Assessmemt and Plan Problems Medical Problems: (1) Acute hyperkalemia Status: Acute (2) Acute renal failure Status: Acute Problems: Comment Review of Relevant I have reviewed the following items sarah (where applicable) has been applied. Labs Laboratory Tests Test 02/04/17 16:51 02/04/17 20:46 02/05/17 05:18 02/05/17 07:04 Glucose (Fingerstick) 202mg/dL (70-99) 358mg/dL (70-99) 226mg/dL (70-99) Hemoglobin 8.3g/dL (13.0-17.5) Sodium Level 139mmol/L (136-145) Potassium Level 3.6mmol/L (3.5-5.1) Chloride Level 102mmol/L (98-107) Carbon Dioxide Level 29mmol/L (21-32) Anion Gap 8 (6-14) Blood Urea Nitrogen 37mg/dL (8-26) Creatinine 2.4mg/dL (0.7-1.3) Estimated GFR (Cockcroft-Gault) 26.1 Glucose Level 260mg/dL (70-99) Calcium Level 8.4mg/dL (8.5-10.1) Phosphorus Level 2.3mg/dL (2.6-4.7) Magnesium Level 1.8mg/dL (1.8-2.4) Albumin 3.1g/dL (3.4-5.0) Test 02/05/17 12:58 02/05/17 16:37 02/05/17 21:07 02/06/17 04:15 Glucose (Fingerstick) 191mg/dL (70-99) 400mg/dL (70-99) 382mg/dL (70-99) Magnesium Level 1.5mg/dL (1.8-2.4) Test 02/06/17 07:38 02/06/17 10:51 02/06/17 11:10 Glucose (Fingerstick) 320mg/dL (70-99) 211mg/dL (70-99) Prothrombin Time 16.8SEC (11.7-14.0) Prothromb Time International Ratio 1.5 (0.8-1.1) Sodium Level 143mmol/L (136-145) Potassium Level 3.4mmol/L (3.5-5.1) Chloride Level 102mmol/L (98-107) Carbon Dioxide Level 30mmol/L (21-32) Anion Gap 11 (6-14) Blood Urea Nitrogen 43mg/dL (8-26) Creatinine 2.3mg/dL (0.7-1.3) Estimated GFR (Cockcroft-Gault) 27.4 Glucose Level 239mg/dL (70-99) Calcium Level 8.7mg/dL (8.5-10.1) Phosphorus Level 1.7mg/dL (2.6-4.7) Albumin 3.4g/dL (3.4-5.0) Laboratory Tests Test 02/05/17 16:37 02/05/17 21:07 02/06/17 04:15 02/06/17 07:38 Glucose (Fingerstick) 400mg/dL (70-99) 382mg/dL (70-99) 320mg/dL (70-99) Magnesium Level 1.5mg/dL (1.8-2.4) Test 02/06/17 10:51 02/06/17 11:10 Prothrombin Time 16.8SEC (11.7-14.0) Prothromb Time International Ratio 1.5 (0.8-1.1) Sodium Level 143mmol/L (136-145) Potassium Level 3.4mmol/L (3.5-5.1) Chloride Level 102mmol/L (98-107) Carbon Dioxide Level 30mmol/L (21-32) Anion Gap 11 (6-14) Blood Urea Nitrogen 43mg/dL (8-26) Creatinine 2.3mg/dL (0.7-1.3) Estimated GFR (Cockcroft-Gault) 27.4 Glucose Level 239mg/dL (70-99) Calcium Level 8.7mg/dL (8.5-10.1) Phosphorus Level 1.7mg/dL (2.6-4.7) Albumin 3.4g/dL (3.4-5.0) Glucose (Fingerstick) 211mg/dL (70-99) Microbiology 02/02/17 Urine Culture - Final, Complete 02/02/17 Urine Culture Result 1 (FADIA) - Final, Complete 02/02/17 Antimicrobic Susceptibility - Final, Complete Medications Current Medications Calcium Gluconate 1,000 mg 1X ONCE IVP Last administered on 01/29/17 14:19; Start 01/29/17 at 13:45; Stop 01/29/17 at 13:46; Status DC Dextrose 25 gm 1X ONCE IV Last administered on 01/29/17 14:29; Start 01/29/17 at 13:45; Stop 01/29/17 at 13:46; Status DC Insulin Human Regular (Novolin R Vial) 10 unit 1X ONCE IV Last administered on 01/29/17 14:32; Start 01/29/17 at 13:45; Stop 01/29/17 at 13:46; Status DC Furosemide (Lasix) 40 mg 1X ONCE IVP Last administered on 01/29/17 14:33; Start 01/29/17 at 13:45; Stop 01/29/17 at 13:46; Status DC Oxycodone/ Acetaminophen (Percocet 5/325) 1 tab 1X ONCE PO Last administered on 01/29/17 14:18; Start 01/29/17 at 14:00; Stop 01/29/17 at 14:02; Status DC Ondansetron HCl (Zofran) 4 mg PRN Q8HRS PRN IV NAUSEA/VOMITING; Start 01/29/17 at 14:15; Stop 01/29/17 at 14:43; Status DC Fentanyl Citrate 50 mcg 50 mcg PRN Q2HR PRN IV PAIN Last administered on 11:04; Start 01/29/17 at 14:15; Stop 01/30/17 at 14:14; Status DC Sodium Chloride (Iv Sodium Chloride 0.9% 1000ml Bag) 1,000 ml @ 75 mls/hr [id number] IV Last administered on 01/29/17 22:15; Start 01/29/17 at 14:12; Stop at 14:11; Status DC Acetaminophen (Tylenol) 650 mg PRN Q4HRS PRN PO FEVER; Start 01/29/17 at 14:15; Stop 01/30/17 at 14:14; Status DC Ondansetron HCl (Zofran) 4 mg PRN Q6HRS PRN IV NAUSEA/VOMITING; Start 01/29/17 at 14:39 Alprazolam (Xanax) 0.5 mg PRN TID PRN PO nerves Last administered on 02/06/17 08:11; Start 01/29/17 at 14:45 Calcitriol (Rocaltrol) 0.25 mcg DAILY PO Last administered on 02/06/17 08:11; Start 01/30/17 at 09:00 Dorzolamide/ Timolol (Cosopt) 1 drop BID OU Last administered on 02/06/17 08: 11; Start 01/29/17 at 21:00 Ferrous Sulfate (Feosol) 325 mg DAILY PO Last administered on 02/06/17 08:11; Start 01/30/17 at 09:00 Folic Acid (Folic Acid) 2 mg TID PO Last administered on 02/06/17 08:09; Start 01/29/17 at 15:30 Gemfibrozil (Lopid) 600 mg BIDBFRMEAL PO Last administered on 02/06/17 08:09; Start 01/29/17 at 16:30 Latanoprost (Xalatan) 1 drop QHS OU Last administered on 02/05/17 20:50; Start 01/29/17 at 21:00 Amylase/Lipase/ Protease (Zenpep 5,000) 4 cap DAILY PO Last administered on 08:09; Start 01/30/17 at 09:00 Metoprolol Tartrate (Lopressor) 50 mg DAILY PO Last administered on 02/02/17 08 :46; Start 01/30/17 at 09:00; Stop 02/02/17 at 11:13; Status DC Fish Oil (Fish Oil) 1,000 mg DAILY PO Last administered on 02/06/17 08:09; Start 01/30/17 at 09:00 Pregabalin (Lyrica) 75 mg BID PO Last administered on 02/06/17 08:11; Start at 21:00 Ropinirole HCl (Requip) 1 mg HS PO Last administered on 02/05/17 20:48; Start 01/29/17 at 21:00 Sennosides (Senna) 8.6 mg BID PO Last administered on 02/06/17 08:09; Start at 21:00 Spironolactone (Aldactone) 25 mg DAILY PO Last administered on 02/02/17 08:43; Start 01/30/17 at 09:00; Stop 02/02/17 at 11:13; Status DC Tamsulosin HCl (Flomax) 0.8 mg DAILY PO Last administered on 02/06/17 10:20; Start 01/30/17 at 09:00 Insulin Detemir (Levemir) 22 units QHS SQ ; Start 01/29/17 at 21:00; Stop at 11:22; Status DC Insulin Aspart (Novolog) 8 units TIDBFRMEAL SQ Last administered on 01/30/17 08 :48; Start 01/29/17 at 16:30; Stop 01/30/17 at 11:22; Status DC Pantoprazole Sodium (Protonix) 40 mg DAILYAC PO Last administered on 02/06/17 08:10; Start 01/30/17 at 07:30 Morphine Sulfate (Ms Contin) 30 mg BID PO Last administered on 02/02/17 08:46; Start 01/29/17 at 21:00; Stop 02/02/17 at 12:11; Status DC Phytonadione (Mephyton) 5 mg 1X ONCE PO ; Start 01/29/17 at 15:30; Stop 01/29/17 at 15:31; Status DC Insulin Aspart (Novolog) 0-9 UNITS TIDWMEALS SQ Last administered on 02/06/17 12:12; Start 01/29/17 at 17:00 Dextrose 12.5 gm 12.5 gm PRN Q15MIN PRN IV SEE COMMENTS Last administered on 18:40; Start 01/29/17 at 14:45 Sodium Chloride (Iv Sodium Chloride 0.9% 500ml Bag) 500 ml @ 500 mls/hr 1X ONCE IV Last administered on 01/29/17 15:15; Start 01/29/17 at 15:15; Stop at 16:14; Status DC Heparin Sodium (Porcine) 28444 unit 10,000 unit STK-MED ONCE .ROUTE ; Start 01/29 at 15:30; Stop 01/29/17 at 15:31; Status DC Heparin Sodium/ Sodium Chloride 500 ml @ As Directed STK-MED ONCE .ROUTE ; Start 01/29/17 at 15:30; Stop 01/29/17 at 15:31; Status DC Lidocaine/ Epinephrine (Xylocaine 1%-Epi 1:100,000) 20 ml STK-MED ONCE .ROUTE ; Start 01/29/17 at 15:31; Stop 01/29/17 at 15:32; Status DC Lidocaine/ Epinephrine (Xylocaine 1%-Epi 1:100,000) 4 ml 1X ONCE IJ Last administered on 01/29/17 16:30; Start 01/29/17 at 16:00; Stop 01/29/17 at 16:01; Status DC Heparin Sodium/ Sodium Chloride 60 unit 1X ONCE IV Last administered on 16:30; Start 01/29/17 at 16:00; Stop 01/29/17 at 16:01; Status DC Heparin Sodium (Porcine) 2500 unit 2,500 unit 1X ONCE INT CAT Last administered on 01/29/17 16:30; Start 01/29/17 at 16:00; Stop 01/29/17 at 16:01; Status DC Sodium Chloride 1,000 ml @ 1,000 mls/hr Q1H PRN IV hypotension; Start 01/29/17 at 17:31; Stop 01/29/17 at 23:30; Status DC Albumin Human (Albuminar) 200 ml @ 200 mls/hr 1X PRN PRN IV Hypotension; Start 01/29/17 at 17:45; Stop 01/29/17 at 23:30; Status DC Sodium Chloride (Normal Saline Flush) 10 ml 1X PRN PRN IV AP 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; Start 01/29/17 at 17:45; Stop 01/29/17 at 23:30; Status DC Sodium Chloride (Normal Saline Flush) 10 ml 1X PRN PRN IV HANDICAPPER [employer] 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; Start 01/29/17 at 17:45; Stop 01/29/17 at 23:30; Status DC Info (PHARMACY MONITORING -- do not chart) 1 each PRN DAILY PRN MC SEE COMMENTS ; Start 01/29/17 at 17:45 Info (PHARMACY MONITORING -- do not chart) 1 each PRN DAILY PRN MC SEE COMMENTS ; Start 01/29/17 at 17:45; Status UNV Aspirin (Ecotrin) 81 mg DAILY PO Last administered on 02/06/17 08:10; Start at 09:00 Warfarin Sodium (Coumadin) 4 mg DAILY16 PO Last administered on 02/01/17 16:40 ; Start 01/29/17 at 19:00; Stop 02/02/17 at 12:11; Status DC Warfarin Sodium (Coumadin Per Physician) 1 each PRN DAILY PRN MC SEE COMMENTS Last administered on 02/03/17 13:55; Start 01/29/17 at 18:30; Stop 02/04/17 at 14 :20; Status DC Insulin Aspart (Novolog) 5 units TIDBFRMEAL SQ Last administered on 02/01/17 11 :50; Start 01/30/17 at 11:30; Stop 02/02/17 at 11:01; Status DC Insulin Detemir 18 units 18 units QHS SQ Last administered on 01/31/17 21:31; Start 01/30/17 at 21:00; Stop 02/02/17 at 11:01; Status DC Sodium Chloride (Iv Sodium Chloride 0.9% 1000ml Bag) 1,000 ml @ 1,000 mls/hr Q1H PRN IV hypotension; Start 01/30/17 at 11:38; Stop 01/30/17 at 17:37; Status DC Sodium Chloride (Normal Saline Flush) 10 ml 1X PRN PRN IV AP 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; Start 01/30/17 at 11:45; Stop 01/31/17 at 11:44; Status DC Sodium Chloride (Normal Saline Flush) 10 ml 1X PRN PRN IV HANDICAPPER [employer] 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; Start 01/30/17 at 11:45; Stop 01/31/17 at 11:44; Status DC Info (PHARMACY MONITORING -- do not chart) 1 each PRN DAILY PRN MC SEE COMMENTS ; Start 01/30/17 at 11:45; Status UNV Info (PHARMACY MONITORING -- do not chart) 1 each PRN DAILY PRN MC SEE COMMENTS ; Start 01/30/17 at 11:45; Status UNV Oxycodone/ Acetaminophen (Percocet 5/325) 1 tab PRN Q4HRS PRN PO PAIN Last administered on 02/05/17 17:02; Start 01/30/17 at 18:45 Oxycodone/ Acetaminophen (Percocet 10/325) 1 tab PRN Q4HRS PRN PO PAIN Last administered on 02/01/17 14:03; Start 01/30/17 at 18:45; Stop 02/02/17 at 12:11; Status DC Insulin Aspart (Novolog) 9 units 1X ONCE SQ Last administered on 01/30/17 21: 57; Start 01/30/17 at 21:30; Stop 01/30/17 at 21:31; Status DC Lidocaine/Sodium Bicarbonate (Buffered Lidocaine 1%) 3 ml 1X ONCE IJ Last administered on 01/31/17 12:15; Start 01/31/17 at 12:15; Stop 01/31/17 at 12:16; Status DC Heparin Sodium/ Sodium Chloride 60 unit 1X ONCE IV Last administered on 13:02; Start 01/31/17 at 12:15; Stop 01/31/17 at 12:16; Status DC Heparin Sodium (Porcine) 2,500 unit 1X ONCE INT CAT Last administered on 13:02; Start 01/31/17 at 12:15; Stop 01/31/17 at 12:16; Status DC Heparin Sodium (Porcine) 10,000 unit STK-MED ONCE .ROUTE ; Start 01/31/17 at 12: 18; Stop 01/31/17 at 12:19; Status DC Fentanyl Citrate (Fentanyl 2ml Vial) 100 mcg STK-MED ONCE .ROUTE ; Start at 12:29; Stop 01/31/17 at 12:30; Status DC Midazolam HCl (Versed) 2 mg STK-MED ONCE .ROUTE ; Start 01/31/17 at 12:29; Stop 01/31/17 at 12:30; Status DC Midazolam HCl (Versed) 2 mg 1X ONCE IV Last administered on 01/31/17 13:01; Start 01/31/17 at 13:00; Stop 01/31/17 at 13:01; Status DC Non-Formulary Medication 1 ea QID OS Last administered on 02/06/17 08:12; Start 01/31/17 at 14:00 Non-Formulary Medication 1 ea QHS OS Last administered on 02/05/17 20:50; Start 01/31/17 at 21:00 Darbepoetin Joshua (Aranesp) 60 mcg WEEKLYHS SQ Last administered on 02/01/17 21: 25; Start 02/01/17 at 21:00 Insulin Detemir (Levemir) 10 units QHS SQ Last administered on 02/04/17 21:30 ; Start 02/02/17 at 21:00; Stop 02/05/17 at 14:17; Status DC Metoprolol Tartrate (Lopressor) 25 mg DAILY PO Last administered on 02/06/17 08:10; Start 02/03/17 at 09:00 Morphine Sulfate (Ms Contin) 20 mg BID PO ; Start 02/02/17 at 21:00; Stop at 21:00; Status DC Morphine Sulfate (Ms Contin) 15 mg BID PO Last administered on 02/02/17 21:23; Start 02/02/17 at 21:00; Stop 02/03/17 at 11:23; Status DC Naloxone HCl 0.2 mg 0.2 mg 1X ONCE IV Last administered on 02/02/17 23:28; Start 02/02/17 at 23:30; Stop 02/02/17 at 23:31; Status DC Sodium Chloride (Iv Sodium Chloride 0.9% 1000ml Bag) 1,000 ml @ 1,000 mls/hr Q1H PRN IV hypotension; Start 02/03/17 at 11:00; Stop 02/03/17 at 23:00; Status DC Sodium Chloride (Normal Saline Flush) 10 ml 1X PRN PRN IV AP 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; Start 02/03/17 at 11:15; Stop 02/03/17 at 23:00; Status DC Sodium Chloride (Normal Saline Flush) 10 ml 1X PRN PRN IV HAND[employer] 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; Start 02/03/17 at 11:15; Stop 02/03/17 at 23:00; Status DC Info (PHARMACY MONITORING -- do not chart) 1 each PRN DAILY PRN MC SEE COMMENTS ; Start 02/03/17 at 11:15; Status UNV Info 1 each 1 each PRN DAILY PRN MC SEE COMMENTS; Start 02/03/17 at 11:15; Status UNV Ceftriaxone Sodium 1 gm/ Sodium Chloride 50 ml @ 100 mls/hr Q24H IV Last administered on 02/05/17 13:36; Start 02/03/17 at 14:00 Sodium Chloride 1,000 ml @ 1,000 mls/hr Q1H PRN IV hypotension; Start 02/04/17 at 07:53; Stop 02/04/17 at 13:52; Status DC Albumin Human (Albuminar) 200 ml @ 200 mls/hr 1X PRN PRN IV Hypotension; Start 02/04/17 at 08:00; Stop 02/04/17 at 13:59; Status DC Acetaminophen (Tylenol) 500 mg 1X PRN PRN PO MILD PAIN / TEMP Last administered on 02/04/17t 09:32; Start 02/04/17 at 08:00; Stop 02/05/17 at 07:59 ; Status DC Diphenhydramine HCl (Benadryl) 25 mg 1X PRN PRN IV ITCHING; Start 02/04/17 at 08:00; Stop 02/05/17 at 07:59; Status DC Diphenhydramine HCl (Benadryl) 25 mg 1X PRN PRN IV ITCHING; Start 02/04/17 at 08:00; Stop 02/05/17 at 07:59; Status DC Sodium Chloride (Normal Saline Flush) 10 ml 1X PRN PRN IV AP 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; Start 02/04/17 at 08:00; Stop 02/05/17 at 07:59; Status DC Sodium Chloride (Normal Saline Flush) 10 ml 1X PRN PRN IV HANDICAPPER [employer] 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; Start 02/04/17 at 08:00; Stop 02/05/17 at 07:59; Status DC Labetalol HCl 10 mg 10 mg PRN Q1HR PRN IVP SBP > 180; Start 02/04/17 at 08:00; Stop 02/05/17 at 07:59; Status DC Sodium Chloride (Iv Sodium Chloride 0.9% 1000ml Bag) 1,000 ml @ 400 mls/hr Q2H30M PRN IV PATENCY; Start 02/04/17 at 07:53; Stop 02/04/17 at 19:52; Status DC Info 1 each 1 each PRN DAILY PRN MC SEE COMMENTS; Start 02/04/17 at 08:00; Status UNV Magnesium Sulfate/ Dextrose 50 ml @ 25 mls/hr PRN DAILY PRN IV for Mag < 1.7 on am labs; Start 02/04/17 at 09:00 Sodium Chloride (Iv Sodium Chloride 0.9% 1000ml Bag) 1,000 ml @ 1,000 mls/hr Q1H PRN IV hypotension; Start 02/05/17 at 08:25; Stop 02/05/17 at 14:24; Status DC Acetaminophen (Tylenol) 500 mg 1X PRN PRN PO MILD PAIN / TEMP; Start 02/05/17 at 08:30; Stop 02/06/17 at 08:29; Status DC Diphenhydramine HCl (Benadryl) 25 mg 1X PRN PRN IV ITCHING; Start 02/05/17 at 08:30; Stop 02/06/17 at 08:29; Status DC Diphenhydramine HCl (Benadryl) 25 mg 1X PRN PRN IV ITCHING; Start 02/05/17 at 08:30; Stop 02/06/17 at 08:29; Status DC Sodium Chloride (Normal Saline Flush) 10 ml 1X PRN PRN IV AP 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; Start 02/05/17 at 08:30; Stop 02/06/17 at 08:29; Status DC Sodium Chloride (Normal Saline Flush) 10 ml 1X PRN PRN IV HANDICAPPER [employer] 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; Start 02/05/17 at 08:30; Stop 02/06/17 at 08:29; Status DC Labetalol HCl 10 mg 10 mg PRN Q1HR PRN IVP SBP > 180; Start 02/05/17 at 08:30; Stop 02/06/17 at 08:29; Status DC Sodium Chloride (Iv Sodium Chloride 0.9% 1000ml Bag) 1,000 ml @ 400 mls/hr Q2H30M PRN IV PATENCY; Start 02/05/17 at 08:25; Stop 02/05/17 at 20:24; Status DC Info (PHARMACY MONITORING -- do not chart) 1 each PRN DAILY PRN MC SEE COMMENTS ; Start 02/05/17 at 08:30; Status UNV Lidocaine (Lidoderm) 1 patch DAILY TD Last administered on 02/06/17 08:08; Start 02/05/17 at 12:00 Morphine Sulfate (Ms Contin) 15 mg BID PO Last administered on 02/06/17 08:10 ; Start 02/05/17 at 12:00 Lidocaine (Lidoderm) 1 patch DAILY TD ; Start 02/05/17 at 13:00; Stop 02/06/17 at 08:27; Status DC Insulin Detemir (Levemir) 15 units QHS SQ ; Start 02/05/17 at 21:00; Stop at 22:21; Status DC Insulin Aspart (Novolog) 6 units 1X ONCE SQ Last administered on 02/05/17 17: 08; Start 02/05/17 at 17:00; Stop 02/05/17 at 17:01; Status DC Insulin Detemir (Levemir) 17 units QHS SQ ; Start 02/06/17 at 21:00; Stop at 21:00; Status DC Insulin Aspart 5 units 5 units TIDAC SQ Last administered on 02/06/17 08:22; Start 02/06/17 at 07:30; Stop 02/06/17 at 09:33; Status DC Magnesium Sulfate/ Dextrose (Magnesium Sulfate PREMIX 2GM) 50 ml @ 25 mls/hr 1X ONCE IV Last administered on 02/06/17 10:21; Start 02/06/17 at 10:00; Stop 02/06/17 at 11:59; Status DC Insulin Aspart (Novolog) 7 units TIDAC SQ Last administered on 02/06/17 12:12 ; Start 02/06/17 at 11:30 Insulin Detemir 20 units 20 units QHS SQ ; Start 02/06/17 at 21:00 Magnesium Sulfate/ Dextrose (Magnesium Sulfate PREMIX 2GM) 50 ml @ 25 mls/hr 1X ONCE IV Last administered on 02/06/17 10:22; Start 02/06/17 at 10:30; Stop 02/06/17 at 12:29; Status DC Cyclobenzaprine HCl (Flexeril) 10 mg 1X ONCE PO Last administered on 12:02; Start 02/06/17 at 11:30; Stop 02/06/17 at 11:31; Status DC Active Scripts Active Lasix (Furosemide) 80 Mg Tablet 1 Tab PO DAILY Reported Cgjwty-Ylkmc-Xldkdug Eye Ointm (Chapito/Polymyx B Sulf/Dexameth) 3.5 Gm Oint...g. 3.5 Gm OS QHS Durezol (Difluprednate) 5 Ml Drops 1 Drop OS QID Aspir 81 (Aspirin) 81 Mg Tablet.dr 1 Tab PO DAILY Senokot (Sennosides) 8.6 Mg Tablet 3 Tab PO BID Morphine Sulfate Er (Morphine Sulfate) 60 Mg Cap.er.pel 60 Mg PO Metoprolol Tartrate 50 Mg Tablet 0.5 Tab PO DAILY Latanoprost 2.5 Ml Drops 1 Drop EACHEYE QHS Gemfibrozil 600 Mg Tablet 1 Tab PO BID Dorzolamide-Timolol Eye Drops (Dorzolamide Hcl/Timolol Maleat) 10 Ml Drops 1 Drop RIGHTEYE BID Lyrica (Pregabalin) 75 Mg Capsule 1 Cap PO BID Alprazolam 0.5 Mg Tablet 1 Tab PO TID Warfarin Sodium 4 Mg Tablet 1 Tab PO DAILY Fish Oil 1,000 Mg Capsule (Magnolia-3 Fatty Acids/Fish Oil) 1 Each Capsule 4 Each PO DAILY Pancrelipase Dr 5,000 Unit Cap (Lipase/Protease/Amylase) 1 Each Capsule.dr 4 Each PO Prilosec Otc (Omeprazole Magnesium) 20 Mg Tablet.dr 20 Mg PO DAILY Lyrica (Pregabalin) 25 Mg Capsule 50 Mg PO TID 30 Days Gemfibrozil 600 Mg Tablet 600 Mg PO BID Spironolactone 25 Mg Tablet 25 Mg PO DAILY Calcitriol 0.25 Mcg Capsule 0.25 Mcg PO DAILY Lantus (Insulin Glargine,Hum.rec.anlog) 100 Unit/1 Ml Vial 22 Unit SQ HS Humalog (Insulin Lispro) 100 Unit/1 Ml Vial 8 Unit SQ TID Folic Acid 1 Mg Tablet 2 Mg PO TID Ferosul (Ferrous Sulfate) 325 Mg Tablet 325 Mg PO Ropinirole Hcl 1 Mg Tablet 1 Mg PO HS Tamsulosin Hcl 0.4 Mg Cap.er.24h 0.8 Mg PO DAILY Travatan Z (Travoprost) 5 Ml Drops 5 Ml OP Vitals/I & O Vital Sign - Last 24 Hours 02/05/17 02/05/17 02/05/17 02/05/17 15:00 19:54 19:59 20:49 Temp 97.8 98.7 97.8 98.7 Pulse 70 70 Resp 20 20 19 B/P 142/63 129/60 Pulse Ox 99 97 99 O2 Delivery Room Air Nasal Cannula Room Air Nasal Cannula O2 Flow Rate 2.0 2.0 02/05/17 02/06/17 02/06/17 02/06/17 23:59 00:55 03:59 07:00 Temp 98.1 98.0 98.4 98.1 98.0 98.4 Pulse 70 70 70 Resp 18 18 20 22 B/P 122/63 137/66 136/59 Pulse Ox 98 98 95 96 O2 Delivery Nasal Cannula Nasal Cannula Room Air Room Air O2 Flow Rate 2.0 2.0 02/06/17 08:10 Pulse 70 B/P 137/66 Intake and Output 02/05/17 02/05/17 02/06/17 15:00 23:00 07:00 Intake Total 637 ml 357 ml 360 ml Output Total 275 ml 400 ml Balance 637 ml 82 ml -40 ml JAMES QUAN MD Feb 06, 2017 13:36
[2017-02-06] MEDS: POTASSIUM PHOSPHATE DIBASIC 10 MMOL in IV NORMAL SALINE 100ML 100 ML IV SCH ×2 (14:30→20:43)
[2017-02-06 15:00] VITALS: BP 132/60
[2017-02-06] MEDS: CEFTRIAXONE SODIUM 1 GM in IV NORMAL SALINE 50ML 50 ML IV SCH (16:47)
[2017-02-06 19:13] VITALS: BP 136/67
[2017-02-06] MEDS: LATANOPROST 0.005% OPHTH SOLUTION 2.5ML BOTTLE. OU SCH (20:30)
[2017-02-06] MEDS: rOPINIRole 1 MG TABLET. PO SCH (20:30)
[2017-02-06] MEDS: DEXAMETHASONE OS SCH (20:31)
[2017-02-06] MEDS: NEOMYCIN OS SCH (20:31)
[2017-02-06] MEDS: [UNRECOGNIZED DRUG - OTHER] OS SCH (20:31)
[2017-02-06] MEDS: INSULIN DETEMIR 300 UNITS/3 ML INSULN.PEN. SQ SCH (20:47)
[2017-02-06] MEDS ORDERED: INSULIN DETEMIR 300 UNITS/3 ML INSULN.PEN. SQ SCH (21:00)
[2017-02-06 23:04] VITALS: BP 143/71
[2017-02-07] VITALS (7 sets, daily range): BP systolic 128–174; BP diastolic 58–77
[2017-02-07 06:24] LABS: INR 1.5 (0.8-1.1); PROTHROMBIN TIME PATIENT 16.8 SEC (11.7-14.0)
[2017-02-07] MEDS: PANTOPRAZOLE 40 MG TABLET. PO SCH (07:30)
[2017-02-07] MEDS: INSULIN ASPART 300 UNITS/3 ML INSULN.PEN SQ SCH ×6 (07:30→17:00)
[2017-02-07] MEDS: GEMFIBROZIL 600 MG TABLET. PO SCH ×2 (07:30→17:41)
[2017-02-07] MEDS: LIDOCAINE (700MG/PATCH) PATCH. TD SCH (07:55)
[2017-02-07] MEDS: LATANOPROST 0.005% OPHTH SOLUTION 2.5ML BOTTLE. OU SCH (07:56)
[2017-02-07] MEDS: NEOMYCIN OS SCH (07:56)
[2017-02-07] MEDS: DORZOLAMIDE/TIMOLOL 2%/0.5% OPHTH SOLUTION 10ML BOTTLE. OU SCH ×2 (07:56→21:39)
[2017-02-07] MEDS: DEXAMETHASONE OS SCH (07:56)
[2017-02-07] MEDS: [UNRECOGNIZED DRUG - OTHER] OS SCH (07:56)
[2017-02-07] MEDS: DUREZOL OS SCH ×4 (07:56→21:28)
--- NOTE | 2017-02-07 08:48 | PDOC ---
PROGRESS NOTES Chief Complaint Chief Complaint Acute renal failure History of Present Illness History of Present Illness Patient is seen during dialysis. No acute events overnight. Patient states that he is feeling good and is ready to go home. Plan for Permanent HD cath placed by IR tomorrow. Vitals Vitals Vital Signs Date Time Temp Pulse Resp B/P Pulse Ox O2 Delivery O2 Flow Rate FiO2 02/07/17 03:00 99.4 70 20 152/70 96 Nasal Cannula 2.0 99.4 Physical Exam General: Alert, Oriented X3, Cooperative, No acute distress Heart: Regular rate, Normal S1, Normal S2 Lungs: Clear Abdomen: Soft, No tenderness Extremities: No clubbing, No edema, No tenderness/swelling Skin: No rashes, No significant lesion Labs LABS Laboratory Tests Test 02/06/17 10:51 02/06/17 11:10 02/06/17 16:44 02/06/17 20:34 Prothrombin Time 16.8SEC (11.7-14.0) Prothromb Time International Ratio 1.5 (0.8-1.1) Sodium Level 143mmol/L (136-145) Potassium Level 3.4mmol/L (3.5-5.1) Chloride Level 102mmol/L (98-107) Carbon Dioxide Level 30mmol/L (21-32) Anion Gap 11 (6-14) Blood Urea Nitrogen 43mg/dL (8-26) Creatinine 2.3mg/dL (0.7-1.3) Estimated GFR (Cockcroft-Gault) 27.4 Glucose Level 239mg/dL (70-99) Calcium Level 8.7mg/dL (8.5-10.1) Phosphorus Level 1.7mg/dL (2.6-4.7) Albumin 3.4g/dL (3.4-5.0) Glucose (Fingerstick) 211mg/dL (70-99) 232mg/dL (70-99) 259mg/dL (70-99) Test 02/07/17 05:10 Prothrombin Time 16.8SEC (11.7-14.0) Prothromb Time International Ratio 1.5 (0.8-1.1) Magnesium Level 2.3mg/dL (1.8-2.4) Review of Systems Review of Systems Denies fever or chills. Denies chest pain and shortness of breath Assessment and Plan Assessmemt and Plan Problems Medical Problems: (1) Acute hyperkalemia Status: Acute (2) Acute renal failure Status: Acute ASSESSMENT: 1. Oliguric, hyperkalemic renal failure POA, needing STAT initiation of HD ( first session 01/29/17), 2. TIM on CKD, maybe even ESRD now needing stat HD initiation 3. MEtabolic encephalopathy 4. Chronic LE edema stable 5. CHF, Multivessel CAD s/p recent CABG 6. SSS with indwelling PPM 7. PAFIB; maintaining SR 8. Therapeutic INR on Coumadin 9. Acute on chronic back pain, indwelling back stimulator - needs adjustment 10. DM2, on insulin 11. BPH 12. AMS with hallucination 2/2 TIM , metabolic encephalopathy likely 14. Acute respiratory failure with hypoventilation with opoids likely PLAN: IR to place permanent HD catheter tomorrow Continue to monitor daily labs Pulm, urology, IR, and renal consulted, appreciate recommendations Continue pain control, attempting to limit narcotics continues to refuse rehab due to prior poor experience, has Outpatient HD is in the process of being set up Possible discharge tomorrow. Problems: Comment Review of Relevant I have reviewed the following items sarah (where applicable) has been applied. Labs Laboratory Tests Test 02/05/17 12:58 02/05/17 16:37 02/05/17 21:07 02/06/17 04:15 Glucose (Fingerstick) 191mg/dL (70-99) 400mg/dL (70-99) 382mg/dL (70-99) Magnesium Level 1.5mg/dL (1.8-2.4) Test 02/06/17 07:38 02/06/17 10:51 02/06/17 11:10 02/06/17 16:44 Glucose (Fingerstick) 320mg/dL (70-99) 211mg/dL (70-99) 232mg/dL (70-99) Prothrombin Time 16.8SEC (11.7-14.0) Prothromb Time International Ratio 1.5 (0.8-1.1) Sodium Level 143mmol/L (136-145) Potassium Level 3.4mmol/L (3.5-5.1) Chloride Level 102mmol/L (98-107) Carbon Dioxide Level 30mmol/L (21-32) Anion Gap 11 (6-14) Blood Urea Nitrogen 43mg/dL (8-26) Creatinine 2.3mg/dL (0.7-1.3) Estimated GFR (Cockcroft-Gault) 27.4 Glucose Level 239mg/dL (70-99) Calcium Level 8.7mg/dL (8.5-10.1) Phosphorus Level 1.7mg/dL (2.6-4.7) Albumin 3.4g/dL (3.4-5.0) Test 02/06/17 20:34 02/07/17 05:10 Glucose (Fingerstick) 259mg/dL (70-99) Prothrombin Time 16.8SEC (11.7-14.0) Prothromb Time International Ratio 1.5 (0.8-1.1) Magnesium Level 2.3mg/dL (1.8-2.4) Laboratory Tests Test 02/06/17 10:51 02/06/17 11:10 02/06/17 16:44 02/06/17 20:34 Prothrombin Time 16.8SEC (11.7-14.0) Prothromb Time International Ratio 1.5 (0.8-1.1) Sodium Level 143mmol/L (136-145) Potassium Level 3.4mmol/L (3.5-5.1) Chloride Level 102mmol/L (98-107) Carbon Dioxide Level 30mmol/L (21-32) Anion Gap 11 (6-14) Blood Urea Nitrogen 43mg/dL (8-26) Creatinine 2.3mg/dL (0.7-1.3) Estimated GFR (Cockcroft-Gault) 27.4 Glucose Level 239mg/dL (70-99) Calcium Level 8.7mg/dL (8.5-10.1) Phosphorus Level 1.7mg/dL (2.6-4.7) Albumin 3.4g/dL (3.4-5.0) Glucose (Fingerstick) 211mg/dL (70-99) 232mg/dL (70-99) 259mg/dL (70-99) Test 02/07/17 05:10 Prothrombin Time 16.8SEC (11.7-14.0) Prothromb Time International Ratio 1.5 (0.8-1.1) Magnesium Level 2.3mg/dL (1.8-2.4) Microbiology 02/02/17 Urine Culture - Final, Complete 02/02/17 Urine Culture Result 1 (FADIA) - Final, Complete 02/02/17 Antimicrobic Susceptibility - Final, Complete Medications Current Medications Calcium Gluconate 1,000 mg 1X ONCE IVP Last administered on 01/29/17 14:19; Start 01/29/17 at 13:45; Stop 01/29/17 at 13:46; Status DC Dextrose 25 gm 1X ONCE IV Last administered on 01/29/17 14:29; Start 01/29/17 at 13:45; Stop 01/29/17 at 13:46; Status DC Insulin Human Regular (Novolin R Vial) 10 unit 1X ONCE IV Last administered on 01/29/17 14:32; Start 01/29/17 at 13:45; Stop 01/29/17 at 13:46; Status DC Furosemide (Lasix) 40 mg 1X ONCE IVP Last administered on 01/29/17 14:33; Start 01/29/17 at 13:45; Stop 01/29/17 at 13:46; Status DC Oxycodone/ Acetaminophen (Percocet 5/325) 1 tab 1X ONCE PO Last administered on 01/29/17 14:18; Start 01/29/17 at 14:00; Stop 01/29/17 at 14:02; Status DC Ondansetron HCl (Zofran) 4 mg PRN Q8HRS PRN IV NAUSEA/VOMITING; Start 01/29/17 at 14:15; Stop 01/29/17 at 14:43; Status DC Fentanyl Citrate 50 mcg 50 mcg PRN Q2HR PRN IV PAIN Last administered on 11:04; Start 01/29/17 at 14:15; Stop 01/30/17 at 14:14; Status DC Sodium Chloride (Iv Sodium Chloride 0.9% 1000ml Bag) 1,000 ml @ 75 mls/hr [id number] IV Last administered on 01/29/17 22:15; Start 01/29/17 at 14:12; Stop at 14:11; Status DC Acetaminophen (Tylenol) 650 mg PRN Q4HRS PRN PO FEVER; Start 01/29/17 at 14:15; Stop 01/30/17 at 14:14; Status DC Ondansetron HCl (Zofran) 4 mg PRN Q6HRS PRN IV NAUSEA/VOMITING; Start 01/29/17 at 14:39 Alprazolam (Xanax) 0.5 mg PRN TID PRN PO nerves Last administered on 02/06/17 08:11; Start 01/29/17 at 14:45 Calcitriol (Rocaltrol) 0.25 mcg DAILY PO Last administered on 02/06/17 08:11; Start 01/30/17 at 09:00 Dorzolamide/ Timolol (Cosopt) 1 drop BID OU Last administered on 02/07/17 07: 56; Start 01/29/17 at 21:00 Ferrous Sulfate (Feosol) 325 mg DAILY PO Last administered on 02/06/17 08:11; Start 01/30/17 at 09:00 Folic Acid (Folic Acid) 2 mg TID PO Last administered on 02/06/17 20:26; Start 01/29/17 at 15:30 Gemfibrozil (Lopid) 600 mg BIDBFRMEAL PO Last administered on 02/06/17 16:48; Start 01/29/17 at 16:30 Latanoprost (Xalatan) 1 drop QHS OU Last administered on 02/07/17 07:56; Start 01/29/17 at 21:00 Amylase/Lipase/ Protease (Zenpep 5,000) 4 cap DAILY PO Last administered on 08:09; Start 01/30/17 at 09:00 Metoprolol Tartrate (Lopressor) 50 mg DAILY PO Last administered on 02/02/17 08 :46; Start 01/30/17 at 09:00; Stop 02/02/17 at 11:13; Status DC Fish Oil (Fish Oil) 1,000 mg DAILY PO Last administered on 02/06/17 08:09; Start 01/30/17 at 09:00 Pregabalin (Lyrica) 75 mg BID PO Last administered on 02/06/17 20:26; Start at 21:00 Ropinirole HCl (Requip) 1 mg HS PO Last administered on 02/06/17 20:30; Start 01/29/17 at 21:00 Sennosides (Senna) 8.6 mg BID PO Last administered on 02/06/17 20:26; Start at 21:00 Spironolactone (Aldactone) 25 mg DAILY PO Last administered on 02/02/17 08:43; Start 01/30/17 at 09:00; Stop 02/02/17 at 11:13; Status DC Tamsulosin HCl (Flomax) 0.8 mg DAILY PO Last administered on 02/06/17 10:20; Start 01/30/17 at 09:00 Insulin Detemir (Levemir) 22 units QHS SQ ; Start 01/29/17 at 21:00; Stop at 11:22; Status DC Insulin Aspart (Novolog) 8 units TIDBFRMEAL SQ Last administered on 01/30/17 08 :48; Start 01/29/17 at 16:30; Stop 01/30/17 at 11:22; Status DC Pantoprazole Sodium (Protonix) 40 mg DAILYAC PO Last administered on 02/06/17 08:10; Start 01/30/17 at 07:30 Morphine Sulfate (Ms Contin) 30 mg BID PO Last administered on 02/02/17 08:46; Start 01/29/17 at 21:00; Stop 02/02/17 at 12:11; Status DC Phytonadione (Mephyton) 5 mg 1X ONCE PO ; Start 01/29/17 at 15:30; Stop 01/29/17 at 15:31; Status DC Insulin Aspart (Novolog) 0-9 UNITS TIDWMEALS SQ Last administered on 02/07/17 08:11; Start 01/29/17 at 17:00 Dextrose 12.5 gm 12.5 gm PRN Q15MIN PRN IV SEE COMMENTS Last administered on 18:40; Start 01/29/17 at 14:45 Sodium Chloride (Iv Sodium Chloride 0.9% 500ml Bag) 500 ml @ 500 mls/hr 1X ONCE IV Last administered on 01/29/17 15:15; Start 01/29/17 at 15:15; Stop at 16:14; Status DC Heparin Sodium (Porcine) 07205 unit 10,000 unit STK-MED ONCE .ROUTE ; Start 01/29 at 15:30; Stop 01/29/17 at 15:31; Status DC Heparin Sodium/ Sodium Chloride 500 ml @ As Directed STK-MED ONCE .ROUTE ; Start 01/29/17 at 15:30; Stop 01/29/17 at 15:31; Status DC Lidocaine/ Epinephrine (Xylocaine 1%-Epi 1:100,000) 20 ml STK-MED ONCE .ROUTE ; Start 01/29/17 at 15:31; Stop 01/29/17 at 15:32; Status DC Lidocaine/ Epinephrine (Xylocaine 1%-Epi 1:100,000) 4 ml 1X ONCE IJ Last administered on 01/29/17 16:30; Start 01/29/17 at 16:00; Stop 01/29/17 at 16:01; Status DC Heparin Sodium/ Sodium Chloride 60 unit 1X ONCE IV Last administered on 16:30; Start 01/29/17 at 16:00; Stop 01/29/17 at 16:01; Status DC Heparin Sodium (Porcine) 2500 unit 2,500 unit 1X ONCE INT CAT Last administered on 01/29/17 16:30; Start 01/29/17 at 16:00; Stop 01/29/17 at 16:01; Status DC Sodium Chloride 1,000 ml @ 1,000 mls/hr Q1H PRN IV hypotension; Start 01/29/17 at 17:31; Stop 01/29/17 at 23:30; Status DC Albumin Human (Albuminar) 200 ml @ 200 mls/hr 1X PRN PRN IV Hypotension; Start 01/29/17 at 17:45; Stop 01/29/17 at 23:30; Status DC Sodium Chloride (Normal Saline Flush) 10 ml 1X PRN PRN IV AP 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; Start 01/29/17 at 17:45; Stop 01/29/17 at 23:30; Status DC Sodium Chloride (Normal Saline Flush) 10 ml 1X PRN PRN IV EXTENSION SERVICE SUPERVISOR 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; Start 01/29/17 at 17:45; Stop 01/29/17 at 23:30; Status DC Info (PHARMACY MONITORING -- do not chart) 1 each PRN DAILY PRN MC SEE COMMENTS ; Start 01/29/17 at 17:45 Info (PHARMACY MONITORING -- do not chart) 1 each PRN DAILY PRN MC SEE COMMENTS ; Start 01/29/17 at 17:45; Status UNV Aspirin (Ecotrin) 81 mg DAILY PO Last administered on 02/06/17 08:10; Start at 09:00 Warfarin Sodium (Coumadin) 4 mg DAILY16 PO Last administered on 02/01/17 16:40 ; Start 01/29/17 at 19:00; Stop 02/02/17 at 12:11; Status DC Warfarin Sodium (Coumadin Per Physician) 1 each PRN DAILY PRN MC SEE COMMENTS Last administered on 02/03/17 13:55; Start 01/29/17 at 18:30; Stop 02/04/17 at 14 :20; Status DC Insulin Aspart (Novolog) 5 units TIDBFRMEAL SQ Last administered on 02/01/17 11 :50; Start 01/30/17 at 11:30; Stop 02/02/17 at 11:01; Status DC Insulin Detemir 18 units 18 units QHS SQ Last administered on 01/31/17 21:31; Start 01/30/17 at 21:00; Stop 02/02/17 at 11:01; Status DC Sodium Chloride (Iv Sodium Chloride 0.9% 1000ml Bag) 1,000 ml @ 1,000 mls/hr Q1H PRN IV hypotension; Start 01/30/17 at 11:38; Stop 01/30/17 at 17:37; Status DC Sodium Chloride (Normal Saline Flush) 10 ml 1X PRN PRN IV AP 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; Start 01/30/17 at 11:45; Stop 01/31/17 at 11:44; Status DC Sodium Chloride (Normal Saline Flush) 10 ml 1X PRN PRN IV EXTENSION SERVICE SUPERVISOR 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; Start 01/30/17 at 11:45; Stop 01/31/17 at 11:44; Status DC Info (PHARMACY MONITORING -- do not chart) 1 each PRN DAILY PRN MC SEE COMMENTS ; Start 01/30/17 at 11:45; Status UNV Info (PHARMACY MONITORING -- do not chart) 1 each PRN DAILY PRN MC SEE COMMENTS ; Start 01/30/17 at 11:45; Status UNV Oxycodone/ Acetaminophen (Percocet 5/325) 1 tab PRN Q4HRS PRN PO PAIN Last administered on 02/05/17 17:02; Start 01/30/17 at 18:45 Oxycodone/ Acetaminophen (Percocet 10/325) 1 tab PRN Q4HRS PRN PO PAIN Last administered on 02/01/17 14:03; Start 01/30/17 at 18:45; Stop 02/02/17 at 12:11; Status DC Insulin Aspart (Novolog) 9 units 1X ONCE SQ Last administered on 01/30/17 21: 57; Start 01/30/17 at 21:30; Stop 01/30/17 at 21:31; Status DC Lidocaine/Sodium Bicarbonate (Buffered Lidocaine 1%) 3 ml 1X ONCE IJ Last administered on 01/31/17 12:15; Start 01/31/17 at 12:15; Stop 01/31/17 at 12:16; Status DC Heparin Sodium/ Sodium Chloride 60 unit 1X ONCE IV Last administered on 13:02; Start 01/31/17 at 12:15; Stop 01/31/17 at 12:16; Status DC Heparin Sodium (Porcine) 2,500 unit 1X ONCE INT CAT Last administered on 13:02; Start 01/31/17 at 12:15; Stop 01/31/17 at 12:16; Status DC Heparin Sodium (Porcine) 10,000 unit STK-MED ONCE .ROUTE ; Start 01/31/17 at 12: 18; Stop 01/31/17 at 12:19; Status DC Fentanyl Citrate (Fentanyl 2ml Vial) 100 mcg STK-MED ONCE .ROUTE ; Start at 12:29; Stop 01/31/17 at 12:30; Status DC Midazolam HCl (Versed) 2 mg STK-MED ONCE .ROUTE ; Start 01/31/17 at 12:29; Stop 01/31/17 at 12:30; Status DC Midazolam HCl (Versed) 2 mg 1X ONCE IV Last administered on 01/31/17 13:01; Start 01/31/17 at 13:00; Stop 01/31/17 at 13:01; Status DC Non-Formulary Medication 1 ea QID OS Last administered on 02/07/17 07:56; Start 01/31/17 at 14:00 Non-Formulary Medication 1 ea QHS OS Last administered on 02/07/17 07:56; Start 01/31/17 at 21:00 Darbepoetin Joshua (Aranesp) 60 mcg WEEKLYHS SQ Last administered on 02/01/17 21: 25; Start 02/01/17 at 21:00 Insulin Detemir (Levemir) 10 units QHS SQ Last administered on 02/04/17 21:30 ; Start 02/02/17 at 21:00; Stop 02/05/17 at 14:17; Status DC Metoprolol Tartrate (Lopressor) 25 mg DAILY PO Last administered on 02/06/17 08:10; Start 02/03/17 at 09:00 Morphine Sulfate (Ms Contin) 20 mg BID PO ; Start 02/02/17 at 21:00; Stop at 21:00; Status DC Morphine Sulfate (Ms Contin) 15 mg BID PO Last administered on 02/02/17 21:23; Start 02/02/17 at 21:00; Stop 02/03/17 at 11:23; Status DC Naloxone HCl 0.2 mg 0.2 mg 1X ONCE IV Last administered on 02/02/17 23:28; Start 02/02/17 at 23:30; Stop 02/02/17 at 23:31; Status DC Sodium Chloride (Iv Sodium Chloride 0.9% 1000ml Bag) 1,000 ml @ 1,000 mls/hr Q1H PRN IV hypotension; Start 02/03/17 at 11:00; Stop 02/03/17 at 23:00; Status DC Sodium Chloride (Normal Saline Flush) 10 ml 1X PRN PRN IV AP 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; Start 02/03/17 at 11:15; Stop 02/03/17 at 23:00; Status DC Sodium Chloride (Normal Saline Flush) 10 ml 1X PRN PRN IV EXTENSION SERVICE SUPERVISOR 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; Start 02/03/17 at 11:15; Stop 02/03/17 at 23:00; Status DC Info (PHARMACY MONITORING -- do not chart) 1 each PRN DAILY PRN MC SEE COMMENTS ; Start 02/03/17 at 11:15; Status UNV Info 1 each 1 each PRN DAILY PRN MC SEE COMMENTS; Start 02/03/17 at 11:15; Status UNV Ceftriaxone Sodium 1 gm/ Sodium Chloride 50 ml @ 100 mls/hr Q24H IV Last administered on 02/06/17 16:47; Start 02/03/17 at 14:00 Sodium Chloride 1,000 ml @ 1,000 mls/hr Q1H PRN IV hypotension; Start 02/04/17 at 07:53; Stop 02/04/17 at 13:52; Status DC Albumin Human (Albuminar) 200 ml @ 200 mls/hr 1X PRN PRN IV Hypotension; Start 02/04/17 at 08:00; Stop 02/04/17 at 13:59; Status DC Acetaminophen (Tylenol) 500 mg 1X PRN PRN PO MILD PAIN / TEMP Last administered on 02/04/17 09:32; Start 02/04/17 at 08:00; Stop 02/05/17 at 07:59 ; Status DC Diphenhydramine HCl (Benadryl) 25 mg 1X PRN PRN IV ITCHING; Start 02/04/17 at 08:00; Stop 02/05/17 at 07:59; Status DC Diphenhydramine HCl (Benadryl) 25 mg 1X PRN PRN IV ITCHING; Start 02/04/17 at 08:00; Stop 02/05/17 at 07:59; Status DC Sodium Chloride (Normal Saline Flush) 10 ml 1X PRN PRN IV AP 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; Start 02/04/17 at 08:00; Stop 02/05/17 at 07:59; Status DC Sodium Chloride (Normal Saline Flush) 10 ml 1X PRN PRN IV EXTENSION SERVICE SUPERVISOR 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; Start 02/04/17 at 08:00; Stop 02/05/17 at 07:59; Status DC Labetalol HCl 10 mg 10 mg PRN Q1HR PRN IVP SBP > 180; Start 02/04/17 at 08:00; Stop 02/05/17 at 07:59; Status DC Sodium Chloride (Iv Sodium Chloride 0.9% 1000ml Bag) 1,000 ml @ 400 mls/hr Q2H30M PRN IV PATENCY; Start 02/04/17 at 07:53; Stop 02/04/17 at 19:52; Status DC Info 1 each 1 each PRN DAILY PRN MC SEE COMMENTS; Start 02/04/17 at 08:00; Status UNV Magnesium Sulfate/ Dextrose 50 ml @ 25 mls/hr PRN DAILY PRN IV for Mag < 1.7 on am labs; Start 02/04/17 at 09:00 Sodium Chloride (Iv Sodium Chloride 0.9% 1000ml Bag) 1,000 ml @ 1,000 mls/hr Q1H PRN IV hypotension; Start 02/05/17 at 08:25; Stop 02/05/17 at 14:24; Status DC Acetaminophen (Tylenol) 500 mg 1X PRN PRN PO MILD PAIN / TEMP; Start 02/05/17 at 08:30; Stop 02/06/17 at 08:29; Status DC Diphenhydramine HCl (Benadryl) 25 mg 1X PRN PRN IV ITCHING; Start 02/05/17 at 08:30; Stop 02/06/17 at 08:29; Status DC Diphenhydramine HCl (Benadryl) 25 mg 1X PRN PRN IV ITCHING; Start 02/05/17 at 08:30; Stop 02/06/17 at 08:29; Status DC Sodium Chloride (Normal Saline Flush) 10 ml 1X PRN PRN IV AP 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; Start 02/05/17 at 08:30; Stop 02/06/17 at 08:29; Status DC Sodium Chloride (Normal Saline Flush) 10 ml 1X PRN PRN IV EXTENSION SERVICE SUPERVISOR 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; Start 02/05/17 at 08:30; Stop 02/06/17 at 08:29; Status DC Labetalol HCl 10 mg 10 mg PRN Q1HR PRN IVP SBP > 180; Start 02/05/17 at 08:30; Stop 02/06/17 at 08:29; Status DC Sodium Chloride (Iv Sodium Chloride 0.9% 1000ml Bag) 1,000 ml @ 400 mls/hr Q2H30M PRN IV PATENCY; Start 02/05/17 at 08:25; Stop 02/05/17 at 20:24; Status DC Info (PHARMACY MONITORING -- do not chart) 1 each PRN DAILY PRN MC SEE COMMENTS ; Start 02/05/17 at 08:30; Status UNV Lidocaine (Lidoderm) 1 patch DAILY TD Last administered on 02/07/17 07:55; Start 02/05/17 at 12:00 Morphine Sulfate (Ms Contin) 15 mg BID PO Last administered on 02/06/17 20:27 ; Start 02/05/17 at 12:00 Lidocaine (Lidoderm) 1 patch DAILY TD ; Start 02/05/17 at 13:00; Stop 02/06/17 at 08:27; Status DC Insulin Detemir (Levemir) 15 units QHS SQ ; Start 02/05/17 at 21:00; Stop at 22:21; Status DC Insulin Aspart (Novolog) 6 units 1X ONCE SQ Last administered on 02/05/17 17: 08; Start 02/05/17 at 17:00; Stop 02/05/17 at 17:01; Status DC Insulin Detemir (Levemir) 17 units QHS SQ ; Start 02/06/17 at 21:00; Stop at 21:00; Status DC Insulin Aspart 5 units 5 units TIDAC SQ Last administered on 02/06/17 08:22; Start 02/06/17 at 07:30; Stop 02/06/17 at 09:33; Status DC Magnesium Sulfate/ Dextrose (Magnesium Sulfate PREMIX 2GM) 50 ml @ 25 mls/hr 1X ONCE IV Last administered on 02/06/17 10:21; Start 02/06/17 at 10:00; Stop 02/06/17 at 11:59; Status DC Insulin Aspart (Novolog) 7 units TIDAC SQ Last administered on 02/06/17 17:00 ; Start 02/06/17 at 11:30 Insulin Detemir 20 units 20 units QHS SQ Last administered on 02/06/17 20:47; Start 02/06/17 at 21:00 Magnesium Sulfate/ Dextrose (Magnesium Sulfate PREMIX 2GM) 50 ml @ 25 mls/hr 1X ONCE IV Last administered on 02/06/17 10:22; Start 02/06/17 at 10:30; Stop 02/06/17 at 12:29; Status DC Cyclobenzaprine HCl 10 mg 10 mg 1X ONCE PO Last administered on 02/06/17 12: 02; Start 02/06/17 at 11:30; Stop 02/06/17 at 11:31; Status DC Potassium Phosphate/Sodium Chloride (Potassium Phosphate/Iv Sodium Chloride 0.9 % 100ml) 103.3333 ml @ 51.667 m... Q2H IV Last administered on 02/06/17t 20:43 ; Start 02/06/17 at 14:30; Stop 02/06/17 at 18:29; Status DC Active Scripts Active Lasix (Furosemide) 80 Mg Tablet 1 Tab PO DAILY Reported Ahioue-Sqbax-Reugujd Eye Ointm ([place]/Polymyx B Sulf/Dexameth) 3.5 Gm Oint...g. 3.5 Gm OS QHS Durezol (Difluprednate) 5 Ml Drops 1 Drop OS QID Aspir 81 (Aspirin) 81 Mg Tablet.dr 1 Tab PO DAILY Senokot (Sennosides) 8.6 Mg Tablet 3 Tab PO BID Morphine Sulfate Er (Morphine Sulfate) 60 Mg Cap.er.pel 60 Mg PO Metoprolol Tartrate 50 Mg Tablet 0.5 Tab PO DAILY Latanoprost 2.5 Ml Drops 1 Drop EACHEYE QHS Gemfibrozil 600 Mg Tablet 1 Tab PO BID Dorzolamide-Timolol Eye Drops (Dorzolamide Hcl/Timolol Maleat) 10 Ml Drops 1 Drop RIGHTEYE BID Lyrica (Pregabalin) 75 Mg Capsule 1 Cap PO BID Alprazolam 0.5 Mg Tablet 1 Tab PO TID Warfarin Sodium 4 Mg Tablet 1 Tab PO DAILY Fish Oil 1,000 Mg Capsule ([place]-3 Fatty Acids/Fish Oil) 1 Each Capsule 4 Each PO DAILY Pancrelipase 5,000 Unit Cap (Lipase/Protease/Amylase) 1 Each Capsule. 4 Each PO Prilosec Otc (Omeprazole Magnesium) 20 Mg Tablet. 20 Mg PO DAILY Lyrica (Pregabalin) 25 Mg Capsule 50 Mg PO TID 30 Days Gemfibrozil 600 Mg Tablet 600 Mg PO BID Spironolactone 25 Mg Tablet 25 Mg PO DAILY Calcitriol 0.25 Mcg Capsule 0.25 Mcg PO DAILY Lantus (Insulin Glargine,Hum.rec.anlog) 100 Unit/1 Ml Vial 22 Unit SQ HS Humalog (Insulin Lispro) 100 Unit/1 Ml Vial 8 Unit SQ TID Folic Acid 1 Mg Tablet 2 Mg PO TID Ferosul (Ferrous Sulfate) 325 Mg Tablet 325 Mg PO Ropinirole Hcl 1 Mg Tablet 1 Mg PO HS Tamsulosin Hcl 0.4 Mg Cap.er.24h 0.8 Mg PO DAILY Travatan Z (Travoprost) 5 Ml Drops 5 Ml OP Vitals/I & O Vital Sign - Last 24 Hours 02/06/17 02/06/17 02/06/17 02/06/17 11:00 15:00 19:13 20:00 Temp 98.0 97.2 98.1 98.0 97.2 98.1 Pulse 78 72 69 Resp 18 24 20 B/P 141/66 132/60 136/67 Pulse Ox 97 96 95 O2 Delivery Room Air Room Air Room Air Nasal Cannula O2 Flow Rate 2.0 02/06/17 02/06/17 02/07/17 02/07/17 20:27 23:04 00:27 03:00 Temp 98.1 99.4 98.1 99.4 Pulse 70 70 Resp 20 18 20 20 B/P 143/71 152/70 Pulse Ox 95 98 96 96 O2 Delivery Nasal Cannula Nasal Cannula Nasal Cannula Nasal Cannula O2 Flow Rate 2.0 2.0 2.0 2.0 Intake and Output 02/06/17 02/06/17 02/07/17 15:00 23:00 07:00 Intake Total 600 ml 680 ml 300 ml Output Total 850 ml Balance 600 ml 680 ml -550 ml WIL HUNG III DO Feb 07, 2017 08:48
[2017-02-07] MEDS: TAMSULOSIN 0.4 MG CAP.ER.24H. PO SCH (09:00)
[2017-02-07] MEDS: ASPIRIN ENTERIC COATED 81 MG TABLET.DR. PO SCH (09:00)
[2017-02-07] MEDS: METOPROLOL TART IMMED RELEASE 25 MG TABLET PO SCH (09:00)
[2017-02-07] MEDS: MORPHINE ER 15 MG TABLET.ER PO SCH (09:00)
[2017-02-07] MEDS: FOLIC ACID 1 MG TABLET PO SCH ×3 (09:00→21:26)
[2017-02-07] MEDS: LIPASE/PROTEAS/AMYLASE 5/17/27 CAPSULE.DR. PO SCH (09:00)
[2017-02-07] MEDS: PREGABALIN 75 MG CAPSULE PO SCH ×2 (09:00→21:27)
[2017-02-07] MEDS: OMEGA-3 FATTY ACIDS/FISH OIL 1,000 MG CAPSULE. PO SCH (09:00)
[2017-02-07] MEDS: SENNOSIDES 8.6 MG TABLET PO SCH ×2 (09:00→21:26)
[2017-02-07] MEDS: FERROUS SULFATE 325 MG TABLET PO SCH (09:00)
[2017-02-07] MEDS: CALCITRIOL 0.25 MCG CAPSULE PO SCH (09:00)
[2017-02-07] MEDS ORDERED: IV NORMAL SALINE 1000ML BAG 1,000 ML IV PRN ×2 (09:11)
[2017-02-07] MEDS ORDERED: ACETAMINOPHEN 500 MG TABLET PO PRN (09:15)
[2017-02-07] MEDS ORDERED: DIALYSIS PATIENT. MC PRN (09:15)
[2017-02-07] MEDS ORDERED: DIPHENHYDRAMINE 50 MG/ML VIAL IV PRN ×2 (09:15)
[2017-02-07] MEDS ORDERED: LABETALOL 20 MG/4 ML DISP.SYRIN. IVP PRN (09:15)
[2017-02-07 09:37] LABS: ALBUMIN 2.9 g/dL (3.4-5.0); CALCIUM 8.3 mg/dL (8.5-10.1); CREATININE 2.4 mg/dL (0.7-1.3); GFR 26.1; PHOSPHORUS 3.5 mg/dL (2.6-4.7); POTASSIUM 4.1 mmol/L (3.5-5.1)
--- NOTE | 2017-02-07 10:17 | PDOC ---
PROGRESS NOTES Subjective Subjective He feels better. Objective Objective Vital Signs Date Time Temp Pulse Resp B/P Pulse Ox O2 Delivery O2 Flow Rate FiO2 02/07/17 09:00 74 128/62 02/07/17 08:00 Nasal Cannula 2.0 02/07/17 07:00 98.0 22 98 98.0 Intake and Output 02/07/17 07:00 Intake Total 1580 ml Output Total 850 ml Balance 730 ml Intake Oral 1580 ml Output Urine Total 850 ml Physical Exam Physical Exam He is supine on hemodialysis bed and admits better pain control. Assessment Assessment Problems Medical Problems: (1) Acute hyperkalemia Status: Acute (2) Acute renal failure Status: Acute Plan Plan of Care To get him up as tolerated. Comment Review of Relevant I have reviewed the following items sarah (where applicable) has been applied. Labs Laboratory Tests Test 02/05/17 12:58 02/05/17 16:37 02/05/17 21:07 02/06/17 04:15 Glucose (Fingerstick) 191mg/dL (70-99) 400mg/dL (70-99) 382mg/dL (70-99) Magnesium Level 1.5mg/dL (1.8-2.4) Test 02/06/17 07:38 02/06/17 10:51 02/06/17 11:10 02/06/17 16:44 Glucose (Fingerstick) 320mg/dL (70-99) 211mg/dL (70-99) 232mg/dL (70-99) Prothrombin Time 16.8SEC (11.7-14.0) Prothromb Time International Ratio 1.5 (0.8-1.1) Sodium Level 143mmol/L (136-145) Potassium Level 3.4mmol/L (3.5-5.1) Chloride Level 102mmol/L (98-107) Carbon Dioxide Level 30mmol/L (21-32) Anion Gap 11 (6-14) Blood Urea Nitrogen 43mg/dL (8-26) Creatinine 2.3mg/dL (0.7-1.3) Estimated GFR (Cockcroft-Gault) 27.4 Glucose Level 239mg/dL (70-99) Calcium Level 8.7mg/dL (8.5-10.1) Phosphorus Level 1.7mg/dL (2.6-4.7) Albumin 3.4g/dL (3.4-5.0) Test 02/06/17 20:34 02/07/17 05:10 02/07/17 07:10 Glucose (Fingerstick) 259mg/dL (70-99) 296mg/dL (70-99) Prothrombin Time 16.8SEC (11.7-14.0) Prothromb Time International Ratio 1.5 (0.8-1.1) Sodium Level 142mmol/L (136-145) Potassium Level 4.1mmol/L (3.5-5.1) Chloride Level 103mmol/L (98-107) Carbon Dioxide Level 28mmol/L (21-32) Anion Gap 11 (6-14) Blood Urea Nitrogen 58mg/dL (8-26) Creatinine 2.4mg/dL (0.7-1.3) Estimated GFR (Cockcroft-Gault) 26.1 Glucose Level 335mg/dL (70-99) Calcium Level 8.3mg/dL (8.5-10.1) Phosphorus Level 3.5mg/dL (2.6-4.7) Magnesium Level 2.3mg/dL (1.8-2.4) Albumin 2.9g/dL (3.4-5.0) Laboratory Tests Test 02/06/17 10:51 02/06/17 11:10 02/06/17 16:44 02/06/17 20:34 Prothrombin Time 16.8SEC (11.7-14.0) Prothromb Time International Ratio 1.5 (0.8-1.1) Sodium Level 143mmol/L (136-145) Potassium Level 3.4mmol/L (3.5-5.1) Chloride Level 102mmol/L (98-107) Carbon Dioxide Level 30mmol/L (21-32) Anion Gap 11 (6-14) Blood Urea Nitrogen 43mg/dL (8-26) Creatinine 2.3mg/dL (0.7-1.3) Estimated GFR (Cockcroft-Gault) 27.4 Glucose Level 239mg/dL (70-99) Calcium Level 8.7mg/dL (8.5-10.1) Phosphorus Level 1.7mg/dL (2.6-4.7) Albumin 3.4g/dL (3.4-5.0) Glucose (Fingerstick) 211mg/dL (70-99) 232mg/dL (70-99) 259mg/dL (70-99) Test 02/07/17 05:10 02/07/17 07:10 Prothrombin Time 16.8SEC (11.7-14.0) Prothromb Time International Ratio 1.5 (0.8-1.1) Sodium Level 142mmol/L (136-145) Potassium Level 4.1mmol/L (3.5-5.1) Chloride Level 103mmol/L (98-107) Carbon Dioxide Level 28mmol/L (21-32) Anion Gap 11 (6-14) Blood Urea Nitrogen 58mg/dL (8-26) Creatinine 2.4mg/dL (0.7-1.3) Estimated GFR (Cockcroft-Gault) 26.1 Glucose Level 335mg/dL (70-99) Calcium Level 8.3mg/dL (8.5-10.1) Phosphorus Level 3.5mg/dL (2.6-4.7) Magnesium Level 2.3mg/dL (1.8-2.4) Albumin 2.9g/dL (3.4-5.0) Glucose (Fingerstick) 296mg/dL (70-99) Microbiology 02/02/17 Urine Culture - Final, Complete 02/02/17 Urine Culture Result 1 (FADIA) - Final, Complete 02/02/17 Antimicrobic Susceptibility - Final, Complete Medications Current Medications Calcium Gluconate 1,000 mg 1X ONCE IVP Last administered on 01/29/17 14:19; Start 01/29/17 at 13:45; Stop 01/29/17 at 13:46; Status DC Dextrose 25 gm 1X ONCE IV Last administered on 01/29/17 14:29; Start 01/29/17 at 13:45; Stop 01/29/17 at 13:46; Status DC Insulin Human Regular (Novolin R Vial) 10 unit 1X ONCE IV Last administered on 01/29/17 14:32; Start 01/29/17 at 13:45; Stop 01/29/17 at 13:46; Status DC Furosemide (Lasix) 40 mg 1X ONCE IVP Last administered on 01/29/17 14:33; Start 01/29/17 at 13:45; Stop 01/29/17 at 13:46; Status DC Oxycodone/ Acetaminophen (Percocet 5/325) 1 tab 1X ONCE PO Last administered on 01/29/17 14:18; Start 01/29/17 at 14:00; Stop 01/29/17 at 14:02; Status DC Ondansetron HCl (Zofran) 4 mg PRN Q8HRS PRN IV NAUSEA/VOMITING; Start 01/29/17 at 14:15; Stop 01/29/17 at 14:43; Status DC Fentanyl Citrate 50 mcg 50 mcg PRN Q2HR PRN IV PAIN Last administered on 11:04; Start 01/29/17 at 14:15; Stop 01/30/17 at 14:14; Status DC Sodium Chloride (Iv Sodium Chloride 0.9% 1000ml Bag) 1,000 ml @ 75 mls/hr [id number] IV Last administered on 01/29/17 22:15; Start 01/29/17 at 14:12; Stop at 14:11; Status DC Acetaminophen (Tylenol) 650 mg PRN Q4HRS PRN PO FEVER; Start 01/29/17 at 14:15; Stop 01/30/17 at 14:14; Status DC Ondansetron HCl (Zofran) 4 mg PRN Q6HRS PRN IV NAUSEA/VOMITING; Start 01/29/17 at 14:39 Alprazolam (Xanax) 0.5 mg PRN TID PRN PO nerves Last administered on 02/06/17 08:11; Start 01/29/17 at 14:45 Calcitriol (Rocaltrol) 0.25 mcg DAILY PO Last administered on 02/06/17 08:11; Start 01/30/17 at 09:00 Dorzolamide/ Timolol (Cosopt) 1 drop BID OU Last administered on 02/07/17 07: 56; Start 01/29/17 at 21:00 Ferrous Sulfate (Feosol) 325 mg DAILY PO Last administered on 02/06/17 08:11; Start 01/30/17 at 09:00 Folic Acid (Folic Acid) 2 mg TID PO Last administered on 02/06/17 20:26; Start 01/29/17 at 15:30 Gemfibrozil (Lopid) 600 mg BIDBFRMEAL PO Last administered on 02/06/17 16:48; Start 01/29/17 at 16:30 Latanoprost (Xalatan) 1 drop QHS OU Last administered on 02/07/17 07:56; Start 01/29/17 at 21:00 Amylase/Lipase/ Protease (Zenpep 5,000) 4 cap DAILY PO Last administered on 08:09; Start 01/30/17 at 09:00 Metoprolol Tartrate (Lopressor) 50 mg DAILY PO Last administered on 02/02/17 08 :46; Start 01/30/17 at 09:00; Stop 02/02/17 at 11:13; Status DC Fish Oil (Fish Oil) 1,000 mg DAILY PO Last administered on 02/06/17 08:09; Start 01/30/17 at 09:00 Pregabalin (Lyrica) 75 mg BID PO Last administered on 02/06/17 20:26; Start at 21:00 Ropinirole HCl (Requip) 1 mg HS PO Last administered on 02/06/17 20:30; Start 01/29/17 at 21:00 Sennosides (Senna) 8.6 mg BID PO Last administered on 02/06/17 20:26; Start at 21:00 Spironolactone (Aldactone) 25 mg DAILY PO Last administered on 02/02/17 08:43; Start 01/30/17 at 09:00; Stop 02/02/17 at 11:13; Status DC Tamsulosin HCl (Flomax) 0.8 mg DAILY PO Last administered on 02/06/17 10:20; Start 01/30/17 at 09:00 Insulin Detemir (Levemir) 22 units QHS SQ ; Start 01/29/17 at 21:00; Stop at 11:22; Status DC Insulin Aspart (Novolog) 8 units TIDBFRMEAL SQ Last administered on 01/30/17 08 :48; Start 01/29/17 at 16:30; Stop 01/30/17 at 11:22; Status DC Pantoprazole Sodium (Protonix) 40 mg DAILYAC PO Last administered on 02/06/17 08:10; Start 01/30/17 at 07:30 Morphine Sulfate (Ms Contin) 30 mg BID PO Last administered on 02/02/17 08:46; Start 01/29/17 at 21:00; Stop 02/02/17 at 12:11; Status DC Phytonadione (Mephyton) 5 mg 1X ONCE PO ; Start 01/29/17 at 15:30; Stop 01/29/17 at 15:31; Status DC Insulin Aspart (Novolog) 0-9 UNITS TIDWMEALS SQ Last administered on 02/07/17 08:11; Start 01/29/17 at 17:00 Dextrose 12.5 gm 12.5 gm PRN Q15MIN PRN IV SEE COMMENTS Last administered on 18:40; Start 01/29/17 at 14:45 Sodium Chloride (Iv Sodium Chloride 0.9% 500ml Bag) 500 ml @ 500 mls/hr 1X ONCE IV Last administered on 01/29/17 15:15; Start 01/29/17 at 15:15; Stop at 16:14; Status DC Heparin Sodium (Porcine) 26357 unit 10,000 unit STK-MED ONCE .ROUTE ; Start 01/29 at 15:30; Stop 01/29/17 at 15:31; Status DC Heparin Sodium/ Sodium Chloride 500 ml @ As Directed STK-MED ONCE .ROUTE ; Start 01/29/17 at 15:30; Stop 01/29/17 at 15:31; Status DC Lidocaine/ Epinephrine (Xylocaine 1%-Epi 1:100,000) 20 ml STK-MED ONCE .ROUTE ; Start 01/29/17 at 15:31; Stop 01/29/17 at 15:32; Status DC Lidocaine/ Epinephrine (Xylocaine 1%-Epi 1:100,000) 4 ml 1X ONCE IJ Last administered on 01/29/17 16:30; Start 01/29/17 at 16:00; Stop 01/29/17 at 16:01; Status DC Heparin Sodium/ Sodium Chloride 60 unit 1X ONCE IV Last administered on 16:30; Start 01/29/17 at 16:00; Stop 01/29/17 at 16:01; Status DC Heparin Sodium (Porcine) 2500 unit 2,500 unit 1X ONCE INT CAT Last administered on 01/29/17 16:30; Start 01/29/17 at 16:00; Stop 01/29/17 at 16:01; Status DC Sodium Chloride 1,000 ml @ 1,000 mls/hr Q1H PRN IV hypotension; Start 01/29/17 at 17:31; Stop 01/29/17 at 23:30; Status DC Albumin Human (Albuminar) 200 ml @ 200 mls/hr 1X PRN PRN IV Hypotension; Start 01/29/17 at 17:45; Stop 01/29/17 at 23:30; Status DC Sodium Chloride (Normal Saline Flush) 10 ml 1X PRN PRN IV AP 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; Start 01/29/17 at 17:45; Stop 01/29/17 at 23:30; Status DC Sodium Chloride (Normal Saline Flush) 10 ml 1X PRN PRN IV LAMINATING MACHINE OPERATOR 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; Start 01/29/17 at 17:45; Stop 01/29/17 at 23:30; Status DC Info (PHARMACY MONITORING -- do not chart) 1 each PRN DAILY PRN MC SEE COMMENTS ; Start 01/29/17 at 17:45 Info (PHARMACY MONITORING -- do not chart) 1 each PRN DAILY PRN MC SEE COMMENTS ; Start 01/29/17 at 17:45; Status UNV Aspirin (Ecotrin) 81 mg DAILY PO Last administered on 02/06/17 08:10; Start at 09:00 Warfarin Sodium (Coumadin) 4 mg DAILY16 PO Last administered on 02/01/17 16:40 ; Start 01/29/17 at 19:00; Stop 02/02/17 at 12:11; Status DC Warfarin Sodium (Coumadin Per Physician) 1 each PRN DAILY PRN MC SEE COMMENTS Last administered on 02/03/17 13:55; Start 01/29/17 at 18:30; Stop 02/04/17 at 14 :20; Status DC Insulin Aspart (Novolog) 5 units TIDBFRMEAL SQ Last administered on 02/01/17 11 :50; Start 01/30/17 at 11:30; Stop 02/02/17 at 11:01; Status DC Insulin Detemir 18 units 18 units QHS SQ Last administered on 01/31/17 21:31; Start 01/30/17 at 21:00; Stop 02/02/17 at 11:01; Status DC Sodium Chloride (Iv Sodium Chloride 0.9% 1000ml Bag) 1,000 ml @ 1,000 mls/hr Q1H PRN IV hypotension; Start 01/30/17 at 11:38; Stop 01/30/17 at 17:37; Status DC Sodium Chloride (Normal Saline Flush) 10 ml 1X PRN PRN IV AP 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; Start 01/30/17 at 11:45; Stop 01/31/17 at 11:44; Status DC Sodium Chloride (Normal Saline Flush) 10 ml 1X PRN PRN IV LAMINATING MACHINE OPERATOR 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; Start 01/30/17 at 11:45; Stop 01/31/17 at 11:44; Status DC Info (PHARMACY MONITORING -- do not chart) 1 each PRN DAILY PRN MC SEE COMMENTS ; Start 01/30/17 at 11:45; Status UNV Info (PHARMACY MONITORING -- do not chart) 1 each PRN DAILY PRN MC SEE COMMENTS ; Start 01/30/17 at 11:45; Status UNV Oxycodone/ Acetaminophen (Percocet 5/325) 1 tab PRN Q4HRS PRN PO PAIN Last administered on 02/05/17 17:02; Start 01/30/17 at 18:45 Oxycodone/ Acetaminophen (Percocet 10/325) 1 tab PRN Q4HRS PRN PO PAIN Last administered on 02/01/17 14:03; Start 01/30/17 at 18:45; Stop 02/02/17 at 12:11; Status DC Insulin Aspart (Novolog) 9 units 1X ONCE SQ Last administered on 01/30/17 21: 57; Start 01/30/17 at 21:30; Stop 01/30/17 at 21:31; Status DC Lidocaine/Sodium Bicarbonate (Buffered Lidocaine 1%) 3 ml 1X ONCE IJ Last administered on 01/31/17 12:15; Start 01/31/17 at 12:15; Stop 01/31/17 at 12:16; Status DC Heparin Sodium/ Sodium Chloride 60 unit 1X ONCE IV Last administered on 13:02; Start 01/31/17 at 12:15; Stop 01/31/17 at 12:16; Status DC Heparin Sodium (Porcine) 2,500 unit 1X ONCE INT CAT Last administered on 13:02; Start 01/31/17 at 12:15; Stop 01/31/17 at 12:16; Status DC Heparin Sodium (Porcine) 10,000 unit STK-MED ONCE .ROUTE ; Start 01/31/17 at 12: 18; Stop 01/31/17 at 12:19; Status DC Fentanyl Citrate (Fentanyl 2ml Vial) 100 mcg STK-MED ONCE .ROUTE ; Start at 12:29; Stop 01/31/17 at 12:30; Status DC Midazolam HCl (Versed) 2 mg STK-MED ONCE .ROUTE ; Start 01/31/17 at 12:29; Stop 01/31/17 at 12:30; Status DC Midazolam HCl (Versed) 2 mg 1X ONCE IV Last administered on 01/31/17 13:01; Start 01/31/17 at 13:00; Stop 01/31/17 at 13:01; Status DC Non-Formulary Medication 1 ea QID OS Last administered on 02/07/17 07:56; Start 01/31/17 at 14:00 Non-Formulary Medication 1 ea QHS OS Last administered on 02/07/17 07:56; Start 01/31/17 at 21:00 Darbepoetin Joshua (Aranesp) 60 mcg WEEKLYHS SQ Last administered on 02/01/17 21: 25; Start 02/01/17 at 21:00 Insulin Detemir (Levemir) 10 units QHS SQ Last administered on 02/04/17 21:30 ; Start 02/02/17 at 21:00; Stop 02/05/17 at 14:17; Status DC Metoprolol Tartrate (Lopressor) 25 mg DAILY PO Last administered on 02/06/17 08:10; Start 02/03/17 at 09:00 Morphine Sulfate (Ms Contin) 20 mg BID PO ; Start 02/02/17 at 21:00; Stop at 21:00; Status DC Morphine Sulfate (Ms Contin) 15 mg BID PO Last administered on 02/02/17 21:23; Start 02/02/17 at 21:00; Stop 02/03/17 at 11:23; Status DC Naloxone HCl 0.2 mg 0.2 mg 1X ONCE IV Last administered on 02/02/17 23:28; Start 02/02/17 at 23:30; Stop 02/02/17 at 23:31; Status DC Sodium Chloride (Iv Sodium Chloride 0.9% 1000ml Bag) 1,000 ml @ 1,000 mls/hr Q1H PRN IV hypotension; Start 02/03/17 at 11:00; Stop 02/03/17 at 23:00; Status DC Sodium Chloride (Normal Saline Flush) 10 ml 1X PRN PRN IV AP 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; Start 02/03/17 at 11:15; Stop 02/03/17 at 23:00; Status DC Sodium Chloride (Normal Saline Flush) 10 ml 1X PRN PRN IV LAMINATING MACHINE OPERATOR 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; Start 02/03/17 at 11:15; Stop 02/03/17 at 23:00; Status DC Info (PHARMACY MONITORING -- do not chart) 1 each PRN DAILY PRN MC SEE COMMENTS ; Start 02/03/17 at 11:15; Status UNV Info 1 each 1 each PRN DAILY PRN MC SEE COMMENTS; Start 02/03/17 at 11:15; Status UNV Ceftriaxone Sodium 1 gm/ Sodium Chloride 50 ml @ 100 mls/hr Q24H IV Last administered on 02/06/17 16:47; Start 02/03/17 at 14:00 Sodium Chloride 1,000 ml @ 1,000 mls/hr Q1H PRN IV hypotension; Start 02/04/17 at 07:53; Stop 02/04/17 at 13:52; Status DC Albumin Human (Albuminar) 200 ml @ 200 mls/hr 1X PRN PRN IV Hypotension; Start 02/04/17 at 08:00; Stop 02/04/17 at 13:59; Status DC Acetaminophen (Tylenol) 500 mg 1X PRN PRN PO MILD PAIN / TEMP Last administered on 02/04/17 09:32; Start 02/04/17 at 08:00; Stop 02/05/17 at 07:59 ; Status DC Diphenhydramine HCl (Benadryl) 25 mg 1X PRN PRN IV ITCHING; Start 02/04/17 at 08:00; Stop 02/05/17 at 07:59; Status DC Diphenhydramine HCl (Benadryl) 25 mg 1X PRN PRN IV ITCHING; Start 02/04/17 at 08:00; Stop 02/05/17 at 07:59; Status DC Sodium Chloride (Normal Saline Flush) 10 ml 1X PRN PRN IV AP 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; Start 02/04/17 at 08:00; Stop 02/05/17 at 07:59; Status DC Sodium Chloride (Normal Saline Flush) 10 ml 1X PRN PRN IV LAMINATING MACHINE OPERATOR 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; Start 02/04/17 at 08:00; Stop 02/05/17 at 07:59; Status DC Labetalol HCl 10 mg 10 mg PRN Q1HR PRN IVP SBP > 180; Start 02/04/17 at 08:00; Stop 02/05/17 at 07:59; Status DC Sodium Chloride (Iv Sodium Chloride 0.9% 1000ml Bag) 1,000 ml @ 400 mls/hr Q2H30M PRN IV PATENCY; Start 02/04/17 at 07:53; Stop 02/04/17 at 19:52; Status DC Info 1 each 1 each PRN DAILY PRN MC SEE COMMENTS; Start 02/04/17 at 08:00; Status UNV Magnesium Sulfate/ Dextrose 50 ml @ 25 mls/hr PRN DAILY PRN IV for Mag < 1.7 on am labs; Start 02/04/17 at 09:00 Sodium Chloride (Iv Sodium Chloride 0.9% 1000ml Bag) 1,000 ml @ 1,000 mls/hr Q1H PRN IV hypotension; Start 02/05/17 at 08:25; Stop 02/05/17 at 14:24; Status DC Acetaminophen (Tylenol) 500 mg 1X PRN PRN PO MILD PAIN / TEMP; Start 02/05/17 at 08:30; Stop 02/06/17 at 08:29; Status DC Diphenhydramine HCl (Benadryl) 25 mg 1X PRN PRN IV ITCHING; Start 02/05/17 at 08:30; Stop 02/06/17 at 08:29; Status DC Diphenhydramine HCl (Benadryl) 25 mg 1X PRN PRN IV ITCHING; Start 02/05/17 at 08:30; Stop 02/06/17 at 08:29; Status DC Sodium Chloride (Normal Saline Flush) 10 ml 1X PRN PRN IV AP 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; Start 02/05/17 at 08:30; Stop 02/06/17 at 08:29; Status DC Sodium Chloride (Normal Saline Flush) 10 ml 1X PRN PRN IV LAMINATING MACHINE OPERATOR 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; Start 02/05/17 at 08:30; Stop 02/06/17 at 08:29; Status DC Labetalol HCl 10 mg 10 mg PRN Q1HR PRN IVP SBP > 180; Start 02/05/17 at 08:30; Stop 02/06/17 at 08:29; Status DC Sodium Chloride (Iv Sodium Chloride 0.9% 1000ml Bag) 1,000 ml @ 400 mls/hr Q2H30M PRN IV PATENCY; Start 02/05/17 at 08:25; Stop 02/05/17 at 20:24; Status DC Info (PHARMACY MONITORING -- do not chart) 1 each PRN DAILY PRN MC SEE COMMENTS ; Start 02/05/17 at 08:30; Status UNV Lidocaine (Lidoderm) 1 patch DAILY TD Last administered on 02/07/17 07:55; Start 02/05/17 at 12:00 Morphine Sulfate (Ms Contin) 15 mg BID PO Last administered on 02/06/17 20:27 ; Start 02/05/17 at 12:00 Lidocaine (Lidoderm) 1 patch DAILY TD ; Start 02/05/17 at 13:00; Stop 02/06/17 at 08:27; Status DC Insulin Detemir (Levemir) 15 units QHS SQ ; Start 02/05/17 at 21:00; Stop at 22:21; Status DC Insulin Aspart (Novolog) 6 units 1X ONCE SQ Last administered on 02/05/17 17: 08; Start 02/05/17 at 17:00; Stop 02/05/17 at 17:01; Status DC Insulin Detemir (Levemir) 17 units QHS SQ ; Start 02/06/17 at 21:00; Stop at 21:00; Status DC Insulin Aspart 5 units 5 units TIDAC SQ Last administered on 02/06/17 08:22; Start 02/06/17 at 07:30; Stop 02/06/17 at 09:33; Status DC Magnesium Sulfate/ Dextrose (Magnesium Sulfate PREMIX 2GM) 50 ml @ 25 mls/hr 1X ONCE IV Last administered on 02/06/17 10:21; Start 02/06/17 at 10:00; Stop 02/06/17 at 11:59; Status DC Insulin Aspart (Novolog) 7 units TIDAC SQ Last administered on 02/06/17 17:00 ; Start 02/06/17 at 11:30 Insulin Detemir 20 units 20 units QHS SQ Last administered on 02/06/17 20:47; Start 02/06/17 at 21:00 Magnesium Sulfate/ Dextrose (Magnesium Sulfate PREMIX 2GM) 50 ml @ 25 mls/hr 1X ONCE IV Last administered on 02/06/17 10:22; Start 02/06/17 at 10:30; Stop 02/06/17 at 12:29; Status DC Cyclobenzaprine HCl 10 mg 10 mg 1X ONCE PO Last administered on 02/06/17 12: 02; Start 02/06/17 at 11:30; Stop 02/06/17 at 11:31; Status DC Potassium Phosphate 10 mmol/ Sodium Chloride 103.3333 ml @ 51.667 m... Q2H IV Last administered on 02/06/17 20:43; Start 02/06/17 at 14:30; Stop 02/06/17 at 18:29; Status DC Sodium Chloride (Iv Sodium Chloride 0.9% 1000ml Bag) 1,000 ml @ 1,000 mls/hr Q1H PRN IV hypotension; Start 02/07/17 at 09:11; Stop 02/07/17 at 15:10 Acetaminophen (Tylenol) 500 mg 1X PRN PRN PO MILD PAIN / TEMP; Start 02/07/17 at 09:15; Stop 02/08/17 at 09:14 Diphenhydramine HCl (Benadryl) 25 mg 1X PRN PRN IV ITCHING; Start 02/07/17 at 09:15; Stop 02/08/17 at 09:14 Diphenhydramine HCl (Benadryl) 25 mg 1X PRN PRN IV ITCHING; Start 02/07/17 at 09:15; Stop 02/08/17 at 09:14 Labetalol HCl 10 mg 10 mg PRN Q1HR PRN IVP SBP > 180; Start 02/07/17 at 09:15; Stop 02/08/17 at 09:14 Sodium Chloride (Iv Sodium Chloride 0.9% 1000ml Bag) 1,000 ml @ 400 mls/hr Q2H30M PRN IV PATENCY; Start 02/07/17 at 09:11; Stop 02/07/17 at 21:10 Info (PHARMACY MONITORING -- do not chart) 1 each PRN DAILY PRN MC SEE COMMENTS ; Start 02/07/17 at 09:15; Status UNV Active Scripts Active Lasix (Furosemide) 80 Mg Tablet 1 Tab PO DAILY Reported Lkjytc-Jedqk-Gtfzyrp Eye Ointm (Chapito/Polymyx B Sulf/Dexameth) 3.5 Gm Oint...g. 3.5 Gm OS QHS Durezol (Difluprednate) 5 Ml Drops 1 Drop OS QID Aspir 81 (Aspirin) 81 Mg Tablet.dr 1 Tab PO DAILY Senokot (Sennosides) 8.6 Mg Tablet 3 Tab PO BID Morphine Sulfate Er (Morphine Sulfate) 60 Mg Cap.er.pel 60 Mg PO Metoprolol Tartrate 50 Mg Tablet 0.5 Tab PO DAILY Latanoprost 2.5 Ml Drops 1 Drop EACHEYE QHS Gemfibrozil 600 Mg Tablet 1 Tab PO BID Dorzolamide-Timolol Eye Drops (Dorzolamide Hcl/Timolol Maleat) 10 Ml Drops 1 Drop RIGHTEYE BID Lyrica (Pregabalin) 75 Mg Capsule 1 Cap PO BID Alprazolam 0.5 Mg Tablet 1 Tab PO TID Warfarin Sodium 4 Mg Tablet 1 Tab PO DAILY Fish Oil 1,000 Mg Capsule (Sayre-3 Fatty Acids/Fish Oil) 1 Each Capsule 4 Each PO DAILY Pancrelipase Dr 5,000 Unit Cap (Lipase/Protease/Amylase) 1 Each Capsule. 4 Each PO Prilosec Otc (Omeprazole Magnesium) 20 Mg Tablet. 20 Mg PO DAILY Lyrica (Pregabalin) 25 Mg Capsule 50 Mg PO TID 30 Days Gemfibrozil 600 Mg Tablet 600 Mg PO BID Spironolactone 25 Mg Tablet 25 Mg PO DAILY Calcitriol 0.25 Mcg Capsule 0.25 Mcg PO DAILY Lantus (Insulin Glargine,Hum.rec.anlog) 100 Unit/1 Ml Vial 22 Unit SQ HS Humalog (Insulin Lispro) 100 Unit/1 Ml Vial 8 Unit SQ TID Folic Acid 1 Mg Tablet 2 Mg PO TID Ferosul (Ferrous Sulfate) 325 Mg Tablet 325 Mg PO Ropinirole Hcl 1 Mg Tablet 1 Mg PO HS Tamsulosin Hcl 0.4 Mg Cap.er.24h 0.8 Mg PO DAILY Travatan Z (Travoprost) 5 Ml Drops 5 Ml OP Vitals/I & O Vital Sign - Last 24 Hours 02/06/17 02/06/17 02/06/17 02/06/17 11:00 15:00 19:13 20:00 Temp 98.0 97.2 98.1 98.0 97.2 98.1 Pulse 78 72 69 Resp 18 24 20 B/P 141/66 132/60 136/67 Pulse Ox 97 96 95 O2 Delivery Room Air Room Air Room Air Nasal Cannula O2 Flow Rate 2.0 02/06/17 02/06/17 02/07/17 02/07/17 20:27 23:04 00:27 03:00 Temp 98.1 99.4 98.1 99.4 Pulse 70 70 Resp 20 18 20 20 B/P 143/71 152/70 Pulse Ox 95 98 96 96 O2 Delivery Nasal Cannula Nasal Cannula Nasal Cannula Nasal Cannula O2 Flow Rate 2.0 2.0 2.0 2.0 02/07/17 02/07/17 02/07/17 07:00 08:00 09:00 Temp 98.0 98.0 Pulse 74 74 Resp 22 B/P 128/62 128/62 Pulse Ox 98 O2 Delivery Nasal Cannula Nasal Cannula O2 Flow Rate 2.0 2.0 Intake and Output 02/06/17 02/06/17 02/07/17 15:00 23:00 07:00 Intake Total 600 ml 680 ml 300 ml Output Total 850 ml Balance 600 ml 680 ml -550 ml CORBIN CHATMAN MD Feb 07, 2017 10:17
--- NOTE | 2017-02-07 11:39 | PDOC ---
Renal-Progress Notes Subjective Notes Notes NONE History of Present Illness Hx of present illness STABLE Vitals Vitals Vital Signs Date Time Temp Pulse Resp B/P Pulse Ox O2 Delivery O2 Flow Rate FiO2 02/07/17 09:00 74 128/62 02/07/17 08:00 Nasal Cannula 2.0 02/07/17 07:00 98.0 22 98 98.0 Weight Weight [ ] I.O. Intake and Output Intake and Output 02/07/17 07:00 Intake Total 1580 ml Output Total 850 ml Balance 730 ml Intake Oral 1580 ml Output Urine Total 850 ml Labs Labs Laboratory Tests Test 02/06/17 16:44 02/06/17 20:34 02/07/17 05:10 02/07/17 07:10 Glucose (Fingerstick) 232mg/dL (70-99) 259mg/dL (70-99) 296mg/dL (70-99) Prothrombin Time 16.8SEC (11.7-14.0) Prothromb Time International Ratio 1.5 (0.8-1.1) Sodium Level 142mmol/L (136-145) Potassium Level 4.1mmol/L (3.5-5.1) Chloride Level 103mmol/L (98-107) Carbon Dioxide Level 28mmol/L (21-32) Anion Gap 11 (6-14) Blood Urea Nitrogen 58mg/dL (8-26) Creatinine 2.4mg/dL (0.7-1.3) Estimated GFR (Cockcroft-Gault) 26.1 Glucose Level 335mg/dL (70-99) Calcium Level 8.3mg/dL (8.5-10.1) Phosphorus Level 3.5mg/dL (2.6-4.7) Magnesium Level 2.3mg/dL (1.8-2.4) Albumin 2.9g/dL (3.4-5.0) Micro Micro Microbiology 02/02/17 Urine Culture - Final, Complete 02/02/17 Urine Culture Result 1 (FADIA) - Final, Complete 02/02/17 Antimicrobic Susceptibility - Final, Complete Review of Systems Constitutional: yes: alert Ears/Nose/Throat: Yes: no symptom reported Cardiovascular: Yes no symptom reported Psychiatric/Neurological: Yes: no symptom reported Endocrine: Yes: no symptom reported Physical Exam General Appearance: no apparent distress Skin: warm Respiratory: bilateral CTA Heart: S1S2, RRR Abdomen: soft, bowel sounds present Neurology: alert Assessment Assessment IMP TIM CKD STAGE 4 URINARY RETENTION ENCEPHALOPATHY-BETTER PLAN HD TODAY UF MINIMAL IVF'S LOOK FOR RENAL RECOVERY ARACELI CANSECO MD Feb 07, 2017 11:39
[2017-02-07] MEDS: IV NORMAL SALINE 1000ML BAG 1,000 ML IV SCH (11:45)
[2017-02-07] MEDS ORDERED: LIDOCAINE 1% / SOD BICARB 8.4% 20 ML VIAL. IJ ONE ×2 (12:23→13:00)
[2017-02-07] MEDS ORDERED: HEPARIN for IV BOLUS 10,000 UNIT/10 ML VIAL. ONE (12:23)
[2017-02-07] MEDS ORDERED: MIDAZOLAM HCL 2 MG/2 ML VIAL. ONE (12:46)
[2017-02-07] MEDS ORDERED: FENTANYL PF 100 MCG/2 ML VIAL. ONE (12:46)
[2017-02-07] MEDS ORDERED: CEFAZOLIN 1GM IVPB FOR OMNI 50 ML IV ONE ×2 (12:46→13:45)
[2017-02-07] MEDS ORDERED: MIDAZOLAM HCL 2 MG/2 ML VIAL. IV ONE (13:00)
[2017-02-07] MEDS ORDERED: FENTANYL PF 100 MCG/2 ML VIAL. IV ONE (13:00)
[2017-02-07] MEDS ORDERED: CEFAZOLIN 1 GM IV ONE (13:30)
--- NOTE | 2017-02-07 13:47 | PDOC ---
MODERATE SEDATION ASSESSMENT RISKS/ALTERNATIVES Risks/Alternatives Risks and alternatives of this type of sedation and procedure discussed with: RISK/ALTERNATIVES: Patient H & P ON CHART H & P H & P on chart and reviewed for co-morbid conditions and appropriate labs. H&P ON CHART: Yes STATUS PREG STATUS ASSESSED: N/A MEDS/ALLERGIES REVIEWED Meds/Allergies Reviewed Medications and Allergies including time and route of recently administered narcotics and sedatives. MEDS/ALLERGIES REVIEWED: Yes ASA RATING ASA RATING: III AIRWAY ASSESSMENT Airway Assessment Airway patency, oral function limitations, presence of caps, crowns, dentures, partials, and ability to extend neck assessed. AIRWAY ASSESSMENT: Yes MALLAMPATI SCORE MALLAMPATI SCORE: III PRE-SEDATION ASSESSMENT PRE-SEDATION ASSESSMENT: Yes JOVANY MAI MD Feb 07, 2017 13:46
--- NOTE | 2017-02-07 13:50 | PDOC ---
Exam Irrigator Gravity Flow Irrigator Gravity Flow [place] Physical Aerodynamicist Physical Aerodynamicist Hermlio Rhoades Pre-Procedure Diagnosis Pre-Procedure Diagnosis TIM on CKD---needs ongoing HD Post-Procedure Diagnosis Post-Procedure Diagnosis Same Procedure Performed Procedure Performed Remove rt IJ temp HDC Sono/fluoro guided rt IJ tunneled HDC insertion Type of Anesthesia Type of Anesthesia Local + Mod sedation Estimated Blood Loss EBL: Minimal Specimens Specimans 14F 20cm Schon temp HDC removed and discarded Drain/Tubes Drains/Tubes Rt IJ 15.5F 24cm DuraMax tunneled HDC inserted Condition of Patient Condition of Patient Stable. No apparent complication. Disposition Disposition From IR return to 54. F/u with Renal. OK to use tunneled HDC. Full report to follow. JOVANY MAI MD Feb 07, 2017 13:50
[2017-02-07] MEDS: OXYCODONE/APAP 5/325 TABLET. PO PRN (14:04)
[2017-02-07] MEDS: CEFTRIAXONE SODIUM 1 GM in IV NORMAL SALINE 50ML 50 ML IV SCH (14:09)
[2017-02-07] MEDS ORDERED: BUTORPHANOL 2 MG VIAL. IV PRN (15:45)
[2017-02-07] MEDS ORDERED: CYCLOBENZAPRINE 10 MG TABLET. PO PRN (15:45)
--- NOTE | 2017-02-07 17:57 | PDOC ---
PULMONARY PROGRESS NOTES Subjective no resp complains Vitals Vital Signs Date Time Temp Pulse Resp B/P Pulse Ox O2 Delivery O2 Flow Rate FiO2 02/07/17 15:04 16 Room Air 02/07/17 14:26 98.1 106 169/75 2.0 98.1 02/07/17 13:23 100 General: Alert Lungs: Clear Cardiovascular: S1, S2 Abdomen: Soft Neuro Exam: Alert Extremities: Other (1+edema) Skin: Warm Labs Laboratory Tests Test 02/05/17 21:07 02/06/17 04:15 02/06/17 07:38 02/06/17 10:51 Glucose (Fingerstick) 382mg/dL (70-99) 320mg/dL (70-99) Magnesium Level 1.5mg/dL (1.8-2.4) Prothrombin Time 16.8SEC (11.7-14.0) Prothromb Time International Ratio 1.5 (0.8-1.1) Sodium Level 143mmol/L (136-145) Potassium Level 3.4mmol/L (3.5-5.1) Chloride Level 102mmol/L (98-107) Carbon Dioxide Level 30mmol/L (21-32) Anion Gap 11 (6-14) Blood Urea Nitrogen 43mg/dL (8-26) Creatinine 2.3mg/dL (0.7-1.3) Estimated GFR (Cockcroft-Gault) 27.4 Glucose Level 239mg/dL (70-99) Calcium Level 8.7mg/dL (8.5-10.1) Phosphorus Level 1.7mg/dL (2.6-4.7) Albumin 3.4g/dL (3.4-5.0) Test 02/06/17 11:10 02/06/17 16:44 02/06/17 20:34 02/07/17 05:10 Glucose (Fingerstick) 211mg/dL (70-99) 232mg/dL (70-99) 259mg/dL (70-99) Prothrombin Time 16.8SEC (11.7-14.0) Prothromb Time International Ratio 1.5 (0.8-1.1) Sodium Level 142mmol/L (136-145) Potassium Level 4.1mmol/L (3.5-5.1) Chloride Level 103mmol/L (98-107) Carbon Dioxide Level 28mmol/L (21-32) Anion Gap 11 (6-14) Blood Urea Nitrogen 58mg/dL (8-26) Creatinine 2.4mg/dL (0.7-1.3) Estimated GFR (Cockcroft-Gault) 26.1 Glucose Level 335mg/dL (70-99) Calcium Level 8.3mg/dL (8.5-10.1) Phosphorus Level 3.5mg/dL (2.6-4.7) Magnesium Level 2.3mg/dL (1.8-2.4) Albumin 2.9g/dL (3.4-5.0) Test 02/07/17 07:10 Glucose (Fingerstick) 296mg/dL (70-99) Laboratory Tests Test 02/06/17 20:34 02/07/17 05:10 02/07/17 07:10 Glucose (Fingerstick) 259mg/dL (70-99) 296mg/dL (70-99) Prothrombin Time 16.8SEC (11.7-14.0) Prothromb Time International Ratio 1.5 (0.8-1.1) Sodium Level 142mmol/L (136-145) Potassium Level 4.1mmol/L (3.5-5.1) Chloride Level 103mmol/L (98-107) Carbon Dioxide Level 28mmol/L (21-32) Anion Gap 11 (6-14) Blood Urea Nitrogen 58mg/dL (8-26) Creatinine 2.4mg/dL (0.7-1.3) Estimated GFR (Cockcroft-Gault) 26.1 Glucose Level 335mg/dL (70-99) Calcium Level 8.3mg/dL (8.5-10.1) Phosphorus Level 3.5mg/dL (2.6-4.7) Magnesium Level 2.3mg/dL (1.8-2.4) Albumin 2.9g/dL (3.4-5.0) Medications Active Scripts Medications Dose Route/Sig Days Date Category Bielsg-Qikkx-Adibplc Eye Ointm ([place]/Polymyx B Sulf/Dexameth) 3.5 Gm Oint...g. 3.5 Gm OS QHS 01/29/17 Reported Durezol (Difluprednate) 5 Ml Drops 1 Drop OS QID 01/29/17 Reported Lasix (Furosemide) 80 Mg Tablet 1 Tab PO DAILY 01/05/17 Rx Aspir 81 (Aspirin) 81 Mg Tablet.dr 1 Tab PO DAILY 09/18/15 Reported Senokot (Sennosides) 8.6 Mg Tablet 3 Tab PO BID 09/18/15 Reported Morphine Sulfate Er (Morphine Sulfate) 60 Mg Cap.er.pel 60 Mg PO 09/18/15 Reported Metoprolol Tartrate 50 Mg Tablet 0.5 Tab PO DAILY 09/18/15 Reported Latanoprost 2.5 Ml Drops 1 Drop EACHEYE QHS 09/18/15 Reported Gemfibrozil 600 Mg Tablet 1 Tab PO BID 09/18/15 Reported Dorzolamide-Timolol Eye Drops (Dorzolamide Hcl/Timolol Maleat) 10 Ml Drops 1 Drop RIGHTEYE BID 09/18/15 Reported Lyrica (Pregabalin) 75 Mg Capsule 1 Cap PO BID 09/18/15 Reported Alprazolam 0.5 Mg Tablet 1 Tab PO TID 09/18/15 Reported Warfarin Sodium 4 Mg Tablet 1 Tab PO DAILY 09/18/15 Reported Fish Oil 1,000 Mg Capsule (Magna-3 Fatty Acids/Fish Oil) 1 Each Capsule 4 Each PO DAILY 09/18/[address] 5,000 Unit Cap (Lipase/Protease/Amylase) 1 Each Capsule.dr 4 Each PO 11/20/14 Reported Prilosec Otc (Omeprazole Magnesium) 20 Mg Tablet. 20 Mg PO DAILY 11/20/14 Reported Lyrica (Pregabalin) 25 Mg Capsule 50 Mg PO TID 30 11/20/14 Reported Gemfibrozil 600 Mg Tablet 600 Mg PO BID 11/20/14 Reported Spironolactone 25 Mg Tablet 25 Mg PO DAILY 11/20/14 Reported Calcitriol 0.25 Mcg Capsule 0.25 Mcg PO DAILY 11/20/14 Reported Lantus (Insulin Glargine,Hum.rec.anlog) 100 Unit/1 Ml Vial 22 Unit SQ HS 11/20/14 Reported Humalog (Insulin Lispro) 100 Unit/1 Ml Vial 8 Unit SQ TID 11/20/14 Reported Folic Acid 1 Mg Tablet 2 Mg PO TID 11/20/14 Reported Ferosul (Ferrous Sulfate) 325 Mg Tablet 325 Mg PO 11/20/14 Reported Ropinirole Hcl 1 Mg Tablet 1 Mg PO HS 11/20/14 Reported Tamsulosin Hcl 0.4 Mg Cap.er.24h 0.8 Mg PO DAILY 11/20/14 Reported Travatan Z (Travoprost) 5 Ml Drops 5 Ml OP 11/20/14 Reported Impression . 1. Acute toxic encephalopathy, secondary to narcotic overdose. 2. No significant history of tobacco use. 3. Acute kidney injury on chronic kidney disease. 4. Clear chest x-ray. 5 Hypercapnia resp failure Plan . resp status improved on HD minimize narcotics LUZ MARIA WHYTE MD Feb 07, 2017 17:57
[2017-02-07] MEDS ORDERED: NALOXONE 0.4 MG/ML VIAL. IV ONE (18:00)
[2017-02-07] MEDS ORDERED: LORAZEPAM 2 MG/ML VIAL IV PRN (18:15)
[2017-02-07] MEDS ORDERED: INSULIN ASPART 300 UNITS/3 ML INSULN.PEN SQ ONE (21:15)
[2017-02-07] MEDS: rOPINIRole 1 MG TABLET. PO SCH (21:26)
[2017-02-07] MEDS: INSULIN DETEMIR 300 UNITS/3 ML INSULN.PEN. SQ SCH (21:38)
[2017-02-08] MEDS: IV NORMAL SALINE 1000ML BAG 1,000 ML IV SCH ×2 (01:05→04:15)
[2017-02-08 03:00] VITALS: BP 144/80
[2017-02-08 04:48] LABS: BASO % 0 % (0-3); EOS % 1 % (0-3); HEMATOCRIT 22.6 % (39.0-53.0); HEMOGLOBIN 7.5 g/dL (13.0-17.5); LYMPH # 0.8 x10^3/uL (1.0-4.8); LYMPH % 21 % (24-48); MEAN CORPUSCULAR HEMOGLOBIN 33 pg (25-35); MEAN CORPUSCULAR HGB CONC 33 g/dL (31-37); MEAN CORPUSCULAR VOLUME 99 fL (79-100); MONO % 13 % (0-9); NEUT % 65 % (31-73); PLATELET COUNT 75 x10^3/uL (140-400); RED BLOOD COUNT 2.28 x10^6/uL (4.30-5.70); RED CELL DISTRIBUTION WIDTH 14.7 % (11.5-14.5)
[2017-02-08 04:50] LABS: INR 1.4 (0.8-1.1)
--- NOTE | 2017-02-08 06:51 | RAD ---
Removal of right IJ temporary hemodialysis catheter Ultrasound and fluoro guided placement of right IJ tunneled hemodialysis catheter Indication: 81-year-old male with acute kidney injury on chronic kidney disease. Ongoing hemodialysis required. Conversion from temporary to tunneled hemodialysis catheter has been requested by renal. Fluoro time: 1.1 minutes Kerma-Area Product: 4 Gycm2 Moderate sedation: 25 minutes moderate sedation was provided utilizing a total of 0.5 mg Versed and 25 mcg fentanyl, IV. The patient was appropriately monitored by a qualified independent observer throughout the time of moderate sedation. Antibiotic: A single dose of Ancef was administered within 1 hour of the procedure start time. Sterility: All elements of maximal sterile barrier technique, including the use of a cap, mask, sterile gown, sterile gloves, large sterile sheet, appropriate hand hygiene, and 2% chlorhexidine for cutaneous antisepsis (or acceptable alternative antiseptic per current guidelines) were utilized. Procedure: Informed consent was obtained from the patient. He was placed supine on the angiography table. Preliminary ultrasound examination of right neck revealed continued wide patency of right internal jugular vein, which was documented with a hard copy ultrasound image. The indwelling right IJ 14 [place] 20 cm Schon temporary hemodialysis catheter was then easily removed utilizing gentle traction. Hemostasis was achieved with manual pressure over right internal jugular vein. Right neck and upper chest were then prepped and draped in the usual sterile fashion, utilizing all elements of maximal sterile barrier technique, as described above. Moderate sedation was provided with IV Versed and Fentanyl. 1 gram Ancef was given IV, prophylactically. Using aseptic technique and local anesthesia, a small skin incision was made lateral to right internal jugular vein, just above clavicle. Using aseptic technique, local anesthesia, and direct ultrasound guidance, a micropuncture needle was successfully introduced into right internal jugular vein. The micropuncture needle was then exchanged over a microguidewire for a micropuncture sheath, through which an Amplatz wire was advanced into IVC, under fluoroscopic control. A second small skin incision was then made along upper anterior aspect of right chest. A subcutaneous tunnel was then fashioned between the right chest and supraclavicular incisions. A 15.5 F 24 cm Dura Max dialysis catheter was pulled through the subcutaneous tunnel from inferior to superior, utilizing the tunneling device provided. The right IJ venostomy tract was then sequentially dilated and the 15.5 [place] dialysis catheter was easily advanced centrally through a 16 [place]kin[place] peel-away sheath, and was positioned with its tip at cavoatrial junction utilizing fluoroscopic guidance. This catheter was demonstrated to flush and aspirate normally, was packed, and was secured at the right chest exit site utilizing 2-0 Prolene and sterile dressing. The small supraclavicular incision was closed with 4-0 Vicryl, Steri-Strips, and sterile dressing. Patient tolerated the procedure well without apparent complication. Satisfactory position of the dialysis catheter was confirmed with a single fluoroscopic spot image. Impression: Successful, uneventful ultrasound and fluoro guided placement of right IJ 15.5 F 24 cm Dura Max tunneled hemodialysis catheter, following removal of right IJ 14 Bur[place] 20 cm Schon temporary hemodialysis catheter, as described.
[2017-02-08 07:00] VITALS: BP 161/73
[2017-02-08] MEDS: GEMFIBROZIL 600 MG TABLET. PO SCH (07:44)
[2017-02-08] MEDS: LIDOCAINE (700MG/PATCH) PATCH. TD SCH (07:44)
[2017-02-08] MEDS: FOLIC ACID 1 MG TABLET PO SCH (07:44)
[2017-02-08] MEDS: FERROUS SULFATE 325 MG TABLET PO SCH (07:44)
[2017-02-08] MEDS: CALCITRIOL 0.25 MCG CAPSULE PO SCH (07:44)
[2017-02-08] MEDS: TAMSULOSIN 0.4 MG CAP.ER.24H. PO SCH (07:44)
[2017-02-08] MEDS: SENNOSIDES 8.6 MG TABLET PO SCH (07:44)
[2017-02-08] MEDS: ASPIRIN ENTERIC COATED 81 MG TABLET.DR. PO SCH (07:44)
[2017-02-08] MEDS: OMEGA-3 FATTY ACIDS/FISH OIL 1,000 MG CAPSULE. PO SCH (07:45)
[2017-02-08] MEDS: PANTOPRAZOLE 40 MG TABLET. PO SCH (07:45)
[2017-02-08] MEDS: LIPASE/PROTEAS/AMYLASE 5/17/27 CAPSULE.DR. PO SCH (07:48)
[2017-02-08] MEDS: METOPROLOL TART IMMED RELEASE 25 MG TABLET PO SCH (07:49)
[2017-02-08] MEDS: LATANOPROST 0.005% OPHTH SOLUTION 2.5ML BOTTLE. OU SCH (07:50)
[2017-02-08] MEDS: DORZOLAMIDE/TIMOLOL 2%/0.5% OPHTH SOLUTION 10ML BOTTLE. OU SCH (07:50)
[2017-02-08] MEDS: PREGABALIN 75 MG CAPSULE PO SCH (07:50)
[2017-02-08] MEDS: DUREZOL OS SCH (07:50)
[2017-02-08] MEDS: INSULIN ASPART 300 UNITS/3 ML INSULN.PEN SQ SCH ×2 (08:00)
--- NOTE | 2017-02-08 09:48 | PDOC ---
PULMONARY PROGRESS NOTES Subjective no resp complains Vitals Vital Signs Date Time Temp Pulse Resp B/P Pulse Ox O2 Delivery O2 Flow Rate FiO2 02/08/17 08:00 Nasal Cannula 2.0 02/08/17 07:49 69 163/69 02/08/17 07:00 97.7 18 100 97.7 General: Alert Lungs: Clear Cardiovascular: S1, S2 Abdomen: Soft Neuro Exam: Alert Extremities: Other (1+edema) Skin: Warm Labs Laboratory Tests Test 02/06/17 10:51 02/06/17 11:10 02/06/17 16:44 02/06/17 20:34 Prothrombin Time 16.8SEC (11.7-14.0) Prothromb Time International Ratio 1.5 (0.8-1.1) Sodium Level 143mmol/L (136-145) Potassium Level 3.4mmol/L (3.5-5.1) Chloride Level 102mmol/L (98-107) Carbon Dioxide Level 30mmol/L (21-32) Anion Gap 11 (6-14) Blood Urea Nitrogen 43mg/dL (8-26) Creatinine 2.3mg/dL (0.7-1.3) Estimated GFR (Cockcroft-Gault) 27.4 Glucose Level 239mg/dL (70-99) Calcium Level 8.7mg/dL (8.5-10.1) Phosphorus Level 1.7mg/dL (2.6-4.7) Albumin 3.4g/dL (3.4-5.0) Glucose (Fingerstick) 211mg/dL (70-99) 232mg/dL (70-99) 259mg/dL (70-99) Test 02/07/17 05:10 02/07/17 07:10 02/07/17 16:59 02/07/17 20:27 Prothrombin Time 16.8SEC (11.7-14.0) Prothromb Time International Ratio 1.5 (0.8-1.1) Sodium Level 142mmol/L (136-145) Potassium Level 4.1mmol/L (3.5-5.1) Chloride Level 103mmol/L (98-107) Carbon Dioxide Level 28mmol/L (21-32) Anion Gap 11 (6-14) Blood Urea Nitrogen 58mg/dL (8-26) Creatinine 2.4mg/dL (0.7-1.3) Estimated GFR (Cockcroft-Gault) 26.1 Glucose Level 335mg/dL (70-99) Calcium Level 8.3mg/dL (8.5-10.1) Phosphorus Level 3.5mg/dL (2.6-4.7) Magnesium Level 2.3mg/dL (1.8-2.4) Albumin 2.9g/dL (3.4-5.0) Glucose (Fingerstick) 296mg/dL (70-99) 144mg/dL (70-99) 331mg/dL (70-99) Test 02/08/17 03:00 02/08/17 03:10 White Blood Count 4.0x10^3/uL (4.0-11.0) Red Blood Count 2.28x10^6/uL (4.30-5.70) Hemoglobin 7.5g/dL (13.0-17.5) Hematocrit 22.6% (39.0-53.0) Mean Corpuscular Volume 99fL (79-100) Mean Corpuscular Hemoglobin 33pg (25-35) Mean Corpuscular Hemoglobin Concent 33g/dL (31-37) Red Cell Distribution Width 14.7% (11.5-14.5) Platelet Count 75x10^3/uL (140-400) Neutrophils (%) (Auto) 65% (31-73) Lymphocytes (%) (Auto) 21% (24-48) Monocytes (%) (Auto) 13% (0-9) Eosinophils (%) (Auto) 1% (0-3) Basophils (%) (Auto) 0% (0-3) Neutrophils # (Auto) 2.6x10^3uL (1.8-7.7) Lymphocytes # (Auto) 0.8x10^3/uL (1.0-4.8) Monocytes # (Auto) 0.5x10^3/uL (0.0-1.1) Eosinophils # (Auto) 0.0x10^3/uL (0.0-0.7) Basophils # (Auto) 0.0x10^3/uL (0.0-0.2) Prothrombin Time 16.0SEC (11.7-14.0) Prothromb Time International Ratio 1.4 (0.8-1.1) Sodium Level 144mmol/L (136-145) Potassium Level 3.9mmol/L (3.5-5.1) Chloride Level 106mmol/L (98-107) Carbon Dioxide Level 30mmol/L (21-32) Anion Gap 8 (6-14) Blood Urea Nitrogen 35mg/dL (8-26) Creatinine 1.6mg/dL (0.7-1.3) Estimated GFR (Cockcroft-Gault) 41.7 Glucose Level 252mg/dL (70-99) Calcium Level 8.0mg/dL (8.5-10.1) Magnesium Level 1.7mg/dL (1.8-2.4) Laboratory Tests Test 02/07/17 16:59 02/07/17 20:27 02/08/17 03:00 02/08/17 03:10 Glucose (Fingerstick) 144mg/dL (70-99) 331mg/dL (70-99) White Blood Count 4.0x10^3/uL (4.0-11.0) Red Blood Count 2.28x10^6/uL (4.30-5.70) Hemoglobin 7.5g/dL (13.0-17.5) Hematocrit 22.6% (39.0-53.0) Mean Corpuscular Volume 99fL (79-100) Mean Corpuscular Hemoglobin 33pg (25-35) Mean Corpuscular Hemoglobin Concent 33g/dL (31-37) Red Cell Distribution Width 14.7% (11.5-14.5) Platelet Count 75x10^3/uL (140-400) Neutrophils (%) (Auto) 65% (31-73) Lymphocytes (%) (Auto) 21% (24-48) Monocytes (%) (Auto) 13% (0-9) Eosinophils (%) (Auto) 1% (0-3) Basophils (%) (Auto) 0% (0-3) Neutrophils # (Auto) 2.6x10^3uL (1.8-7.7) Lymphocytes # (Auto) 0.8x10^3/uL (1.0-4.8) Monocytes # (Auto) 0.5x10^3/uL (0.0-1.1) Eosinophils # (Auto) 0.0x10^3/uL (0.0-0.7) Basophils # (Auto) 0.0x10^3/uL (0.0-0.2) Prothrombin Time 16.0SEC (11.7-14.0) Prothromb Time International Ratio 1.4 (0.8-1.1) Sodium Level 144mmol/L (136-145) Potassium Level 3.9mmol/L (3.5-5.1) Chloride Level 106mmol/L (98-107) Carbon Dioxide Level 30mmol/L (21-32) Anion Gap 8 (6-14) Blood Urea Nitrogen 35mg/dL (8-26) Creatinine 1.6mg/dL (0.7-1.3) Estimated GFR (Cockcroft-Gault) 41.7 Glucose Level 252mg/dL (70-99) Calcium Level 8.0mg/dL (8.5-10.1) Magnesium Level 1.7mg/dL (1.8-2.4) Medications Active Scripts Medications Dose Route/Sig Days Date Category Zijkop-Tpfer-Wffzddk Eye Ointm (Chapito/Polymyx B Sulf/Dexameth) 3.5 Gm Oint...g. 3.5 Gm OS QHS 01/29/17 Reported Durezol (Difluprednate) 5 Ml Drops 1 Drop OS QID 01/29/17 Reported Lasix (Furosemide) 80 Mg Tablet 1 Tab PO DAILY 01/05/17 Rx Aspir 81 (Aspirin) 81 Mg Tablet.dr 1 Tab PO DAILY 09/18/15 Reported Senokot (Sennosides) 8.6 Mg Tablet 3 Tab PO BID 09/18/15 Reported Morphine Sulfate Er (Morphine Sulfate) 60 Mg Cap.er.pel 60 Mg PO 09/18/15 Reported Metoprolol Tartrate 50 Mg Tablet 0.5 Tab PO DAILY 09/18/15 Reported Latanoprost 2.5 Ml Drops 1 Drop EACHEYE QHS 09/18/15 Reported Gemfibrozil 600 Mg Tablet 1 Tab PO BID 09/18/15 Reported Dorzolamide-Timolol Eye Drops (Dorzolamide Hcl/Timolol Maleat) 10 Ml Drops 1 Drop RIGHTEYE BID 09/18/15 Reported Lyrica (Pregabalin) 75 Mg Capsule 1 Cap PO BID 09/18/15 Reported Alprazolam 0.5 Mg Tablet 1 Tab PO TID 09/18/15 Reported Warfarin Sodium 4 Mg Tablet 1 Tab PO DAILY 09/18/15 Reported Fish Oil 1,000 Mg Capsule ([place]-3 Fatty Acids/Fish Oil) 1 Each Capsule 4 Each PO DAILY 09/18/[address] 5,000 Unit Cap (Lipase/Protease/Amylase) 1 Each Capsule.dr 4 Each PO 11/20/14 Reported Prilosec Otc (Omeprazole Magnesium) 20 Mg Tablet.dr 20 Mg PO DAILY 11/20/14 Reported Lyrica (Pregabalin) 25 Mg Capsule 50 Mg PO TID 30 11/20/14 Reported Gemfibrozil 600 Mg Tablet 600 Mg PO BID 11/20/14 Reported Spironolactone 25 Mg Tablet 25 Mg PO DAILY 11/20/14 Reported Calcitriol 0.25 Mcg Capsule 0.25 Mcg PO DAILY 11/20/14 Reported Lantus (Insulin Glargine,Hum.rec.anlog) 100 Unit/1 Ml Vial 22 Unit SQ HS 11/20/14 Reported Humalog (Insulin Lispro) 100 Unit/1 Ml Vial 8 Unit SQ TID 11/20/14 Reported Folic Acid 1 Mg Tablet 2 Mg PO TID 11/20/14 Reported Ferosul (Ferrous Sulfate) 325 Mg Tablet 325 Mg PO 11/20/14 Reported Ropinirole Hcl 1 Mg Tablet 1 Mg PO HS 11/20/14 Reported Tamsulosin Hcl 0.4 Mg Cap.er.24h 0.8 Mg PO DAILY 11/20/14 Reported Travatan Z (Travoprost) 5 Ml Drops 5 Ml OP 11/20/14 Reported Impression . 1. Acute toxic encephalopathy, secondary to narcotic overdose. 2. No significant history of tobacco use. 3. Acute kidney injury on chronic kidney disease. 4. Clear chest x-ray. 5 Hypercapnia resp failure Plan . resp status improved on HD minimize narcotics LUZ MARIA WHYTE MD Feb 08, 2017 09:48
--- NOTE | 2017-02-08 10:19 | PDOC ---
PROGRESS NOTES Subjective Subjective He admits continued low back pain. Objective Objective Vital Signs Date Time Temp Pulse Resp B/P Pulse Ox O2 Delivery O2 Flow Rate FiO2 02/08/17 08:00 Nasal Cannula 2.0 02/08/17 07:49 69 163/69 02/08/17 07:00 97.7 18 100 97.7 Intake and Output 02/08/17 07:00 Intake Total 530 ml Output Total 1901 ml Balance -1371 ml Intake Oral 480 ml IV Total 50 ml Output Urine Total 1900 ml Stool Total 1 ml Physical Exam Physical Exam He is independent with mobility at roller walker level including climbing stairs. Assessment Assessment Problems Medical Problems: (1) Acute hyperkalemia Status: Acute (2) Acute renal failure Status: Acute Plan Plan of Care Agree with plans for home with home health follow up. Comment Review of Relevant I have reviewed the following items sarah (where applicable) has been applied. Labs Laboratory Tests Test 02/06/17 10:51 02/06/17 11:10 02/06/17 16:44 02/06/17 20:34 Prothrombin Time 16.8SEC (11.7-14.0) Prothromb Time International Ratio 1.5 (0.8-1.1) Sodium Level 143mmol/L (136-145) Potassium Level 3.4mmol/L (3.5-5.1) Chloride Level 102mmol/L (98-107) Carbon Dioxide Level 30mmol/L (21-32) Anion Gap 11 (6-14) Blood Urea Nitrogen 43mg/dL (8-26) Creatinine 2.3mg/dL (0.7-1.3) Estimated GFR (Cockcroft-Gault) 27.4 Glucose Level 239mg/dL (70-99) Calcium Level 8.7mg/dL (8.5-10.1) Phosphorus Level 1.7mg/dL (2.6-4.7) Albumin 3.4g/dL (3.4-5.0) Glucose (Fingerstick) 211mg/dL (70-99) 232mg/dL (70-99) 259mg/dL (70-99) Test 02/07/17 05:10 02/07/17 07:10 02/07/17 16:59 02/07/17 20:27 Prothrombin Time 16.8SEC (11.7-14.0) Prothromb Time International Ratio 1.5 (0.8-1.1) Sodium Level 142mmol/L (136-145) Potassium Level 4.1mmol/L (3.5-5.1) Chloride Level 103mmol/L (98-107) Carbon Dioxide Level 28mmol/L (21-32) Anion Gap 11 (6-14) Blood Urea Nitrogen 58mg/dL (8-26) Creatinine 2.4mg/dL (0.7-1.3) Estimated GFR (Cockcroft-Gault) 26.1 Glucose Level 335mg/dL (70-99) Calcium Level 8.3mg/dL (8.5-10.1) Phosphorus Level 3.5mg/dL (2.6-4.7) Magnesium Level 2.3mg/dL (1.8-2.4) Albumin 2.9g/dL (3.4-5.0) Glucose (Fingerstick) 296mg/dL (70-99) 144mg/dL (70-99) 331mg/dL (70-99) Test 02/08/17 03:00 02/08/17 03:10 White Blood Count 4.0x10^3/uL (4.0-11.0) Red Blood Count 2.28x10^6/uL (4.30-5.70) Hemoglobin 7.5g/dL (13.0-17.5) Hematocrit 22.6% (39.0-53.0) Mean Corpuscular Volume 99fL (79-100) Mean Corpuscular Hemoglobin 33pg (25-35) Mean Corpuscular Hemoglobin Concent 33g/dL (31-37) Red Cell Distribution Width 14.7% (11.5-14.5) Platelet Count 75x10^3/uL (140-400) Neutrophils (%) (Auto) 65% (31-73) Lymphocytes (%) (Auto) 21% (24-48) Monocytes (%) (Auto) 13% (0-9) Eosinophils (%) (Auto) 1% (0-3) Basophils (%) (Auto) 0% (0-3) Neutrophils # (Auto) 2.6x10^3uL (1.8-7.7) Lymphocytes # (Auto) 0.8x10^3/uL (1.0-4.8) Monocytes # (Auto) 0.5x10^3/uL (0.0-1.1) Eosinophils # (Auto) 0.0x10^3/uL (0.0-0.7) Basophils # (Auto) 0.0x10^3/uL (0.0-0.2) Prothrombin Time 16.0SEC (11.7-14.0) Prothromb Time International Ratio 1.4 (0.8-1.1) Sodium Level 144mmol/L (136-145) Potassium Level 3.9mmol/L (3.5-5.1) Chloride Level 106mmol/L (98-107) Carbon Dioxide Level 30mmol/L (21-32) Anion Gap 8 (6-14) Blood Urea Nitrogen 35mg/dL (8-26) Creatinine 1.6mg/dL (0.7-1.3) Estimated GFR (Cockcroft-Gault) 41.7 Glucose Level 252mg/dL (70-99) Calcium Level 8.0mg/dL (8.5-10.1) Magnesium Level 1.7mg/dL (1.8-2.4) Laboratory Tests Test 02/07/17 16:59 02/07/17 20:27 02/08/17 03:00 02/08/17 03:10 Glucose (Fingerstick) 144mg/dL (70-99) 331mg/dL (70-99) White Blood Count 4.0x10^3/uL (4.0-11.0) Red Blood Count 2.28x10^6/uL (4.30-5.70) Hemoglobin 7.5g/dL (13.0-17.5) Hematocrit 22.6% (39.0-53.0) Mean Corpuscular Volume 99fL (79-100) Mean Corpuscular Hemoglobin 33pg (25-35) Mean Corpuscular Hemoglobin Concent 33g/dL (31-37) Red Cell Distribution Width 14.7% (11.5-14.5) Platelet Count 75x10^3/uL (140-400) Neutrophils (%) (Auto) 65% (31-73) Lymphocytes (%) (Auto) 21% (24-48) Monocytes (%) (Auto) 13% (0-9) Eosinophils (%) (Auto) 1% (0-3) Basophils (%) (Auto) 0% (0-3) Neutrophils # (Auto) 2.6x10^3uL (1.8-7.7) Lymphocytes # (Auto) 0.8x10^3/uL (1.0-4.8) Monocytes # (Auto) 0.5x10^3/uL (0.0-1.1) Eosinophils # (Auto) 0.0x10^3/uL (0.0-0.7) Basophils # (Auto) 0.0x10^3/uL (0.0-0.2) Prothrombin Time 16.0SEC (11.7-14.0) Prothromb Time International Ratio 1.4 (0.8-1.1) Sodium Level 144mmol/L (136-145) Potassium Level 3.9mmol/L (3.5-5.1) Chloride Level 106mmol/L (98-107) Carbon Dioxide Level 30mmol/L (21-32) Anion Gap 8 (6-14) Blood Urea Nitrogen 35mg/dL (8-26) Creatinine 1.6mg/dL (0.7-1.3) Estimated GFR (Cockcroft-Gault) 41.7 Glucose Level 252mg/dL (70-99) Calcium Level 8.0mg/dL (8.5-10.1) Magnesium Level 1.7mg/dL (1.8-2.4) Microbiology 02/02/17 Urine Culture - Final, Complete 02/02/17 Urine Culture Result 1 (FADIA) - Final, Complete 02/02/17 Antimicrobic Susceptibility - Final, Complete Medications Current Medications Calcium Gluconate 1,000 mg 1X ONCE IVP Last administered on 01/29/17 14:19; Start 01/29/17 at 13:45; Stop 01/29/17 at 13:46; Status DC Dextrose 25 gm 1X ONCE IV Last administered on 01/29/17 14:29; Start 01/29/17 at 13:45; Stop 01/29/17 at 13:46; Status DC Insulin Human Regular (Novolin R Vial) 10 unit 1X ONCE IV Last administered on 01/29/17 14:32; Start 01/29/17 at 13:45; Stop 01/29/17 at 13:46; Status DC Furosemide (Lasix) 40 mg 1X ONCE IVP Last administered on 01/29/17 14:33; Start 01/29/17 at 13:45; Stop 01/29/17 at 13:46; Status DC Oxycodone/ Acetaminophen (Percocet 5/325) 1 tab 1X ONCE PO Last administered on 01/29/17 14:18; Start 01/29/17 at 14:00; Stop 01/29/17 at 14:02; Status DC Ondansetron HCl (Zofran) 4 mg PRN Q8HRS PRN IV NAUSEA/VOMITING; Start 01/29/17 at 14:15; Stop 01/29/17 at 14:43; Status DC Fentanyl Citrate 50 mcg 50 mcg PRN Q2HR PRN IV PAIN Last administered on 11:04; Start 01/29/17 at 14:15; Stop 01/30/17 at 14:14; Status DC Sodium Chloride (Iv Sodium Chloride 0.9% 1000ml Bag) 1,000 ml @ 75 mls/hr [id number] IV Last administered on 01/29/17 22:15; Start 01/29/17 at 14:12; Stop at 14:11; Status DC Acetaminophen (Tylenol) 650 mg PRN Q4HRS PRN PO FEVER; Start 01/29/17 at 14:15; Stop 01/30/17 at 14:14; Status DC Ondansetron HCl (Zofran) 4 mg PRN Q6HRS PRN IV NAUSEA/VOMITING; Start 01/29/17 at 14:39 Alprazolam (Xanax) 0.5 mg PRN TID PRN PO nerves Last administered on 02/06/17 08:11; Start 01/29/17 at 14:45 Calcitriol (Rocaltrol) 0.25 mcg DAILY PO Last administered on 02/08/17 07:44; Start 01/30/17 at 09:00 Dorzolamide/ Timolol (Cosopt) 1 drop BID OU Last administered on 02/08/17 07: 50; Start 01/29/17 at 21:00 Ferrous Sulfate (Feosol) 325 mg DAILY PO Last administered on 02/08/17 07:44; Start 01/30/17 at 09:00 Folic Acid (Folic Acid) 2 mg TID PO Last administered on 02/08/17 07:44; Start 01/29/17 at 15:30 Gemfibrozil (Lopid) 600 mg BIDBFRMEAL PO Last administered on 02/08/17 07:44; Start 01/29/17 at 16:30 Latanoprost (Xalatan) 1 drop QHS OU Last administered on 02/08/17 07:50; Start 01/29/17 at 21:00 Amylase/Lipase/ Protease (Zenpep 5,000) 4 cap DAILY PO Last administered on 07:48; Start 01/30/17 at 09:00 Metoprolol Tartrate (Lopressor) 50 mg DAILY PO Last administered on 02/02/17 08 :46; Start 01/30/17 at 09:00; Stop 02/02/17 at 11:13; Status DC Fish Oil (Fish Oil) 1,000 mg DAILY PO Last administered on 02/08/17 07:45; Start 01/30/17 at 09:00 Pregabalin (Lyrica) 75 mg BID PO Last administered on 02/08/17 07:50; Start at 21:00 Ropinirole HCl (Requip) 1 mg HS PO Last administered on 02/07/17 21:26; Start 01/29/17 at 21:00 Sennosides (Senna) 8.6 mg BID PO Last administered on 02/08/17 07:44; Start at 21:00 Spironolactone (Aldactone) 25 mg DAILY PO Last administered on 02/02/17 08:43; Start 01/30/17 at 09:00; Stop 02/02/17 at 11:13; Status DC Tamsulosin HCl (Flomax) 0.8 mg DAILY PO Last administered on 02/08/17 07:44; Start 01/30/17 at 09:00 Insulin Detemir (Levemir) 22 units QHS SQ ; Start 01/29/17 at 21:00; Stop at 11:22; Status DC Insulin Aspart (Novolog) 8 units TIDBFRMEAL SQ Last administered on 01/30/17 08 :48; Start 01/29/17 at 16:30; Stop 01/30/17 at 11:22; Status DC Pantoprazole Sodium (Protonix) 40 mg DAILYAC PO Last administered on 02/08/17 07:45; Start 01/30/17 at 07:30 Morphine Sulfate (Ms Contin) 30 mg BID PO Last administered on 02/02/17 08:46; Start 01/29/17 at 21:00; Stop 02/02/17 at 12:11; Status DC Phytonadione (Mephyton) 5 mg 1X ONCE PO ; Start 01/29/17 at 15:30; Stop 01/29/17 at 15:31; Status DC Insulin Aspart (Novolog) 0-9 UNITS TIDWMEALS SQ Last administered on 02/08/17 08:00; Start 01/29/17 at 17:00 Dextrose 12.5 gm 12.5 gm PRN Q15MIN PRN IV SEE COMMENTS Last administered on 18:40; Start 01/29/17 at 14:45 Sodium Chloride (Iv Sodium Chloride 0.9% 500ml Bag) 500 ml @ 500 mls/hr 1X ONCE IV Last administered on 01/29/17 15:15; Start 01/29/17 at 15:15; Stop at 16:14; Status DC Heparin Sodium (Porcine) 23023 unit 10,000 unit STK-MED ONCE .ROUTE ; Start 01/29 at 15:30; Stop 01/29/17 at 15:31; Status DC Heparin Sodium/ Sodium Chloride 500 ml @ As Directed STK-MED ONCE .ROUTE ; Start 01/29/17 at 15:30; Stop 01/29/17 at 15:31; Status DC Lidocaine/ Epinephrine (Xylocaine 1%-Epi 1:100,000) 20 ml STK-MED ONCE .ROUTE ; Start 01/29/17 at 15:31; Stop 01/29/17 at 15:32; Status DC Lidocaine/ Epinephrine (Xylocaine 1%-Epi 1:100,000) 4 ml 1X ONCE IJ Last administered on 01/29/17 16:30; Start 01/29/17 at 16:00; Stop 01/29/17 at 16:01; Status DC Heparin Sodium/ Sodium Chloride 60 unit 1X ONCE IV Last administered on 16:30; Start 01/29/17 at 16:00; Stop 01/29/17 at 16:01; Status DC Heparin Sodium (Porcine) 2500 unit 2,500 unit 1X ONCE INT CAT Last administered on 01/29/17 16:30; Start 01/29/17 at 16:00; Stop 01/29/17 at 16:01; Status DC Sodium Chloride 1,000 ml @ 1,000 mls/hr Q1H PRN IV hypotension; Start 01/29/17 at 17:31; Stop 01/29/17 at 23:30; Status DC Albumin Human (Albuminar) 200 ml @ 200 mls/hr 1X PRN PRN IV Hypotension; Start 01/29/17 at 17:45; Stop 01/29/17 at 23:30; Status DC Sodium Chloride (Normal Saline Flush) 10 ml 1X PRN PRN IV AP 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; Start 01/29/17 at 17:45; Stop 01/29/17 at 23:30; Status DC Sodium Chloride (Normal Saline Flush) 10 ml 1X PRN PRN IV DELTA [employer] 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; Start 01/29/17 at 17:45; Stop 01/29/17 at 23:30; Status DC Info (PHARMACY MONITORING -- do not chart) 1 each PRN DAILY PRN MC SEE COMMENTS ; Start 01/29/17 at 17:45 Info (PHARMACY MONITORING -- do not chart) 1 each PRN DAILY PRN MC SEE COMMENTS ; Start 01/29/17 at 17:45; Status UNV Aspirin (Ecotrin) 81 mg DAILY PO Last administered on 02/08/17 07:44; Start at 09:00 Warfarin Sodium (Coumadin) 4 mg DAILY16 PO Last administered on 02/01/17 16:40 ; Start 01/29/17 at 19:00; Stop 02/02/17 at 12:11; Status DC Warfarin Sodium (Coumadin Per Physician) 1 each PRN DAILY PRN MC SEE COMMENTS Last administered on 02/03/17 13:55; Start 01/29/17 at 18:30; Stop 02/04/17 at 14 :20; Status DC Insulin Aspart (Novolog) 5 units TIDBFRMEAL SQ Last administered on 02/01/17 11 :50; Start 01/30/17 at 11:30; Stop 02/02/17 at 11:01; Status DC Insulin Detemir 18 units 18 units QHS SQ Last administered on 01/31/17 21:31; Start 01/30/17 at 21:00; Stop 02/02/17 at 11:01; Status DC Sodium Chloride (Iv Sodium Chloride 0.9% 1000ml Bag) 1,000 ml @ 1,000 mls/hr Q1H PRN IV hypotension; Start 01/30/17 at 11:38; Stop 01/30/17 at 17:37; Status DC Sodium Chloride (Normal Saline Flush) 10 ml 1X PRN PRN IV AP 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; Start 01/30/17 at 11:45; Stop 01/31/17 at 11:44; Status DC Sodium Chloride (Normal Saline Flush) 10 ml 1X PRN PRN IV DEL[employer] 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; Start 01/30/17 at 11:45; Stop 01/31/17 at 11:44; Status DC Info (PHARMACY MONITORING -- do not chart) 1 each PRN DAILY PRN MC SEE COMMENTS ; Start 01/30/17 at 11:45; Status UNV Info (PHARMACY MONITORING -- do not chart) 1 each PRN DAILY PRN MC SEE COMMENTS ; Start 01/30/17 at 11:45; Status UNV Oxycodone/ Acetaminophen (Percocet 5/325) 1 tab PRN Q4HRS PRN PO PAIN Last administered on 02/07/17 14:04; Start 01/30/17 at 18:45 Oxycodone/ Acetaminophen (Percocet 10/325) 1 tab PRN Q4HRS PRN PO PAIN Last administered on 02/01/17 14:03; Start 01/30/17 at 18:45; Stop 02/02/17 at 12:11; Status DC Insulin Aspart (Novolog) 9 units 1X ONCE SQ Last administered on 01/30/17 21: 57; Start 01/30/17 at 21:30; Stop 01/30/17 at 21:31; Status DC Lidocaine/Sodium Bicarbonate (Buffered Lidocaine 1%) 3 ml 1X ONCE IJ Last administered on 01/31/17 12:15; Start 01/31/17 at 12:15; Stop 01/31/17 at 12:16; Status DC Heparin Sodium/ Sodium Chloride 60 unit 1X ONCE IV Last administered on 13:02; Start 01/31/17 at 12:15; Stop 01/31/17 at 12:16; Status DC Heparin Sodium (Porcine) 2,500 unit 1X ONCE INT CAT Last administered on 13:02; Start 01/31/17 at 12:15; Stop 01/31/17 at 12:16; Status DC Heparin Sodium (Porcine) 10,000 unit STK-MED ONCE .ROUTE ; Start 01/31/17 at 12: 18; Stop 01/31/17 at 12:19; Status DC Fentanyl Citrate (Fentanyl 2ml Vial) 100 mcg STK-MED ONCE .ROUTE ; Start at 12:29; Stop 01/31/17 at 12:30; Status DC Midazolam HCl (Versed) 2 mg STK-MED ONCE .ROUTE ; Start 01/31/17 at 12:29; Stop 01/31/17 at 12:30; Status DC Midazolam HCl (Versed) 2 mg 1X ONCE IV Last administered on 01/31/17 13:01; Start 01/31/17 at 13:00; Stop 01/31/17 at 13:01; Status DC Non-Formulary Medication 1 ea QID OS Last administered on 02/08/17 07:50; Start 01/31/17 at 14:00 Non-Formulary Medication 1 ea QHS OS Last administered on 02/07/17 07:56; Start 01/31/17 at 21:00 Darbepoetin Joshua (Aranesp) 60 mcg [id number] SQ Last administered on 02/01/17 21: 25; Start 02/01/17 at 21:00 Insulin Detemir (Levemir) 10 units QHS SQ Last administered on 02/04/17 21:30 ; Start 02/02/17 at 21:00; Stop 02/05/17 at 14:17; Status DC Metoprolol Tartrate (Lopressor) 25 mg DAILY PO Last administered on 02/08/17 07:49; Start 02/03/17 at 09:00 Morphine Sulfate (Ms Contin) 20 mg BID PO ; Start 02/02/17 at 21:00; Stop at 21:00; Status DC Morphine Sulfate (Ms Contin) 15 mg BID PO Last administered on 02/02/17 21:23; Start 02/02/17 at 21:00; Stop 02/03/17 at 11:23; Status DC Naloxone HCl 0.2 mg 0.2 mg 1X ONCE IV Last administered on 02/02/17 23:28; Start 02/02/17 at 23:30; Stop 02/02/17 at 23:31; Status DC Sodium Chloride (Iv Sodium Chloride 0.9% 1000ml Bag) 1,000 ml @ 1,000 mls/hr Q1H PRN IV hypotension; Start 02/03/17 at 11:00; Stop 02/03/17 at 23:00; Status DC Sodium Chloride (Normal Saline Flush) 10 ml 1X PRN PRN IV AP 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; Start 02/03/17 at 11:15; Stop 02/03/17 at 23:00; Status DC Sodium Chloride (Normal Saline Flush) 10 ml 1X PRN PRN IV DEL[employer] 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; Start 02/03/17 at 11:15; Stop 02/03/17 at 23:00; Status DC Info (PHARMACY MONITORING -- do not chart) 1 each PRN DAILY PRN MC SEE COMMENTS ; Start 02/03/17 at 11:15; Status UNV Info 1 each 1 each PRN DAILY PRN MC SEE COMMENTS; Start 02/03/17 at 11:15; Status UNV Ceftriaxone Sodium 1 gm/ Sodium Chloride 50 ml @ 100 mls/hr Q24H IV Last administered on 02/07/17 14:09; Start 02/03/17 at 14:00 Sodium Chloride 1,000 ml @ 1,000 mls/hr Q1H PRN IV hypotension; Start 02/04/17 at 07:53; Stop 02/04/17 at 13:52; Status DC Albumin Human (Albuminar) 200 ml @ 200 mls/hr 1X PRN PRN IV Hypotension; Start 02/04/17 at 08:00; Stop 02/04/17 at 13:59; Status DC Acetaminophen (Tylenol) 500 mg 1X PRN PRN PO MILD PAIN / TEMP Last administered on 02/04/17 09:32; Start 02/04/17 at 08:00; Stop 02/05/17 at 07:59 ; Status DC Diphenhydramine HCl (Benadryl) 25 mg 1X PRN PRN IV ITCHING; Start 02/04/17 at 08:00; Stop 02/05/17 at 07:59; Status DC Diphenhydramine HCl (Benadryl) 25 mg 1X PRN PRN IV ITCHING; Start 02/04/17 at 08:00; Stop 02/05/17 at 07:59; Status DC Sodium Chloride (Normal Saline Flush) 10 ml 1X PRN PRN IV AP 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; Start 02/04/17 at 08:00; Stop 02/05/17 at 07:59; Status DC Sodium Chloride (Normal Saline Flush) 10 ml 1X PRN PRN IV DEL[employer] 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; Start 02/04/17 at 08:00; Stop 02/05/17 at 07:59; Status DC Labetalol HCl 10 mg 10 mg PRN Q1HR PRN IVP SBP > 180; Start 02/04/17 at 08:00; Stop 02/05/17 at 07:59; Status DC Sodium Chloride (Iv Sodium Chloride 0.9% 1000ml Bag) 1,000 ml @ 400 mls/hr Q2H30M PRN IV PATENCY; Start 02/04/17 at 07:53; Stop 02/04/17 at 19:52; Status DC Info 1 each 1 each PRN DAILY PRN MC SEE COMMENTS; Start 02/04/17 at 08:00; Status UNV Magnesium Sulfate/ Dextrose 50 ml @ 25 mls/hr PRN DAILY PRN IV for Mag < 1.7 on am labs; Start 02/04/17 at 09:00 Sodium Chloride (Iv Sodium Chloride 0.9% 1000ml Bag) 1,000 ml @ 1,000 mls/hr Q1H PRN IV hypotension; Start 02/05/17 at 08:25; Stop 02/05/17 at 14:24; Status DC Acetaminophen (Tylenol) 500 mg 1X PRN PRN PO MILD PAIN / TEMP; Start 02/05/17 at 08:30; Stop 02/06/17 at 08:29; Status DC Diphenhydramine HCl (Benadryl) 25 mg 1X PRN PRN IV ITCHING; Start 02/05/17 at 08:30; Stop 02/06/17 at 08:29; Status DC Diphenhydramine HCl (Benadryl) 25 mg 1X PRN PRN IV ITCHING; Start 02/05/17 at 08:30; Stop 02/06/17 at 08:29; Status DC Sodium Chloride (Normal Saline Flush) 10 ml 1X PRN PRN IV AP 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; Start 02/05/17 at 08:30; Stop 02/06/17 at 08:29; Status DC Sodium Chloride (Normal Saline Flush) 10 ml 1X PRN PRN IV DEL[employer] 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; Start 02/05/17 at 08:30; Stop 02/06/17 at 08:29; Status DC Labetalol HCl 10 mg 10 mg PRN Q1HR PRN IVP SBP > 180; Start 02/05/17 at 08:30; Stop 02/06/17 at 08:29; Status DC Sodium Chloride (Iv Sodium Chloride 0.9% 1000ml Bag) 1,000 ml @ 400 mls/hr Q2H30M PRN IV PATENCY; Start 02/05/17 at 08:25; Stop 02/05/17 at 20:24; Status DC Info (PHARMACY MONITORING -- do not chart) 1 each PRN DAILY PRN MC SEE COMMENTS ; Start 02/05/17 at 08:30; Status UNV Lidocaine (Lidoderm) 1 patch DAILY TD Last administered on 02/08/17 07:44; Start 02/05/17 at 12:00 Morphine Sulfate (Ms Contin) 15 mg BID PO Last administered on 02/06/17 20:27 ; Start 02/05/17 at 12:00; Stop 02/07/17 at 15:34; Status DC Lidocaine (Lidoderm) 1 patch DAILY TD ; Start 02/05/17 at 13:00; Stop 02/06/17 at 08:27; Status DC Insulin Detemir (Levemir) 15 units QHS SQ ; Start 02/05/17 at 21:00; Stop at 22:21; Status DC Insulin Aspart (Novolog) 6 units 1X ONCE SQ Last administered on 02/05/17 17: 08; Start 02/05/17 at 17:00; Stop 02/05/17 at 17:01; Status DC Insulin Detemir (Levemir) 17 units QHS SQ ; Start 02/06/17 at 21:00; Stop at 21:00; Status DC Insulin Aspart 5 units 5 units TIDAC SQ Last administered on 02/06/17 08:22; Start 02/06/17 at 07:30; Stop 02/06/17 at 09:33; Status DC Magnesium Sulfate/ Dextrose (Magnesium Sulfate PREMIX 2GM) 50 ml @ 25 mls/hr 1X ONCE IV Last administered on 02/06/17 10:21; Start 02/06/17 at 10:00; Stop 02/06/17 at 11:59; Status DC Insulin Aspart (Novolog) 7 units TIDAC SQ Last administered on 02/08/17 08:00 ; Start 02/06/17 at 11:30 Insulin Detemir 20 units 20 units QHS SQ Last administered on 02/07/17 21:38; Start 02/06/17 at 21:00 Magnesium Sulfate/ Dextrose (Magnesium Sulfate PREMIX 2GM) 50 ml @ 25 mls/hr 1X ONCE IV Last administered on 02/06/17 10:22; Start 02/06/17 at 10:30; Stop 02/06/17 at 12:29; Status DC Cyclobenzaprine HCl 10 mg 10 mg 1X ONCE PO Last administered on 02/06/17 12: 02; Start 02/06/17 at 11:30; Stop 02/06/17 at 11:31; Status DC Potassium Phosphate 10 mmol/ Sodium Chloride 103.3333 ml @ 51.667 m... Q2H IV Last administered on 02/06/17 20:43; Start 02/06/17 at 14:30; Stop 02/06/17 at 18:29; Status DC Sodium Chloride (Iv Sodium Chloride 0.9% 1000ml Bag) 1,000 ml @ 1,000 mls/hr Q1H PRN IV hypotension; Start 02/07/17 at 09:11; Stop 02/07/17 at 15:10; Status DC Acetaminophen (Tylenol) 500 mg 1X PRN PRN PO MILD PAIN / TEMP; Start 02/07/17 at 09:15; Stop 02/08/17 at 09:14; Status DC Diphenhydramine HCl (Benadryl) 25 mg 1X PRN PRN IV ITCHING; Start 02/07/17 at 09:15; Stop 02/08/17 at 09:14; Status DC Diphenhydramine HCl (Benadryl) 25 mg 1X PRN PRN IV ITCHING; Start 02/07/17 at 09:15; Stop 02/08/17 at 09:14; Status DC Labetalol HCl 10 mg 10 mg PRN Q1HR PRN IVP SBP > 180; Start 02/07/17 at 09:15; Stop 02/08/17 at 09:14; Status DC Sodium Chloride (Iv Sodium Chloride 0.9% 1000ml Bag) 1,000 ml @ 400 mls/hr Q2H30M PRN IV PATENCY; Start 02/07/17 at 09:11; Stop 02/07/17 at 21:10; Status DC Info 1 each 1 each PRN DAILY PRN MC SEE COMMENTS; Start 02/07/17 at 09:15; Status UNV Sodium Chloride (Iv Sodium Chloride 0.9% 1000ml Bag) 1,000 ml @ 75 mls/hr [id number] IV Last administered on 02/08/17t 04:15; Start 02/07/17 at 11:45 Heparin Sodium (Porcine) 10,000 unit STK-MED ONCE .ROUTE ; Start 02/07/17 at 12: 23; Stop 02/07/17 at 12:24; Status DC Lidocaine/Sodium Bicarbonate 20 ml 20 ml STK-MED ONCE IJ ; Start 02/07/17 at 12: 23; Stop 02/07/17 at 12:24; Status DC Heparin Sodium/ Sodium Chloride 500 ml @ As Directed STK-MED ONCE .ROUTE ; Start 02/07/17 at 12:23; Stop 02/07/17 at 12:24; Status DC Midazolam HCl (Versed) 2 mg STK-MED ONCE .ROUTE ; Start 02/07/17 at 12:46; Stop 02/07/17 at 12:47; Status DC Fentanyl Citrate 100 mcg 100 mcg STK-MED ONCE .ROUTE ; Start 02/07/17 at 12:46; Stop 02/07/17 at 12:47; Status DC Cefazolin Sodium (Ancef 1gm Ivpb For Omni) 50 ml @ As Directed STK-MED ONCE IV ; Start 02/07/17 at 12:46; Stop 02/07/17 at 12:47; Status DC Heparin Sodium/ Sodium Chloride 1,000 unit 1X ONCE IART Last administered on t 13:18; Start 02/07/17 at 13:00; Stop 02/07/17 at 13:01; Status DC Lidocaine/Sodium Bicarbonate (Buffered Lidocaine 1%) 20 ml 1X ONCE IJ Last administered on 02/07/17 13:18; Start 02/07/17 at 13:00; Stop 02/07/17 at 13:01 ; Status DC Midazolam HCl (Versed) 2 mg 1X ONCE IV Last administered on 02/07/17 13:20; Start 02/07/17 at 13:00; Stop 02/07/17 at 13:01; Status DC Fentanyl Citrate (Fentanyl 2ml Vial) 100 mcg 1X ONCE IV Last administered on 13:20; Start 02/07/17 at 13:00; Stop 02/07/17 at 13:01; Status DC Heparin Sodium (Porcine) 2600 unit 2,600 unit 1X ONCE INT CAT Last administered on 02/07/17 13:21; Start 02/07/17 at 13:00; Stop 02/07/17 at 13:01 ; Status DC Cefazolin Sodium/ Dextrose 50 ml @ 0 mls/hr 1X ONCE IV Last administered on 13:30; Start 02/07/17 at 13:30; Stop 02/07/17 at 13:31; Status DC Cefazolin Sodium (Ancef 1gm Ivpb For Omni) 50 ml @ 100 mls/hr 1X ONCE IV Last administered on 02/07/17 13:37; Start 02/07/17 at 13:45; Stop 02/07/17 at 14:14; Status DC Cyclobenzaprine HCl (Flexeril) 10 mg PRN Q8HRS PRN PO MUSCLE SPASMS Last administered on 02/07/17 17:41; Start 02/07/17 at 15:45 Butorphanol Tartrate (Stadol) 1 mg PRN Q6HRS PRN IV PAIN Last administered on 17:41; Start 02/07/17 at 15:45; Stop 02/07/17 at 18:45; Status DC Naloxone HCl (Narcan) 0.4 mg 1X ONCE IV Last administered on 02/07/17 17:58; Start 02/07/17 at 18:00; Stop 3/13/17 at 18:01; Status DC Lorazepam (Ativan) 0.5 mg PRN Q4HRS PRN IV ANXIETY / AGITATION Last administered on 02/07/17 18:21; Start 02/07/17 at 18:15 Insulin Aspart (Novolog) 9 units 1X ONCE SQ Last administered on 02/07/17 21: 39; Start 02/07/17 at 21:15; Stop 02/07/17 at 21:16; Status DC Active Scripts Active Lasix (Furosemide) 80 Mg Tablet 1 Tab PO DAILY Reported Elcibu-Kpmah-Nlgrfmt Eye Ointm ([place]/Polymyx B Sulf/Dexameth) 3.5 Gm Oint...g. 3.5 Gm OS QHS Durezol (Difluprednate) 5 Ml Drops 1 Drop OS QID Aspir 81 (Aspirin) 81 Mg Tablet.dr 1 Tab PO DAILY Senokot (Sennosides) 8.6 Mg Tablet 3 Tab PO BID Morphine Sulfate Er (Morphine Sulfate) 60 Mg Cap.er.pel 60 Mg PO Metoprolol Tartrate 50 Mg Tablet 0.5 Tab PO DAILY Latanoprost 2.5 Ml Drops 1 Drop EACHEYE QHS Gemfibrozil 600 Mg Tablet 1 Tab PO BID Dorzolamide-Timolol Eye Drops (Dorzolamide Hcl/Timolol Maleat) 10 Ml Drops 1 Drop RIGHTEYE BID Lyrica (Pregabalin) 75 Mg Capsule 1 Cap PO BID Alprazolam 0.5 Mg Tablet 1 Tab PO TID Warfarin Sodium 4 Mg Tablet 1 Tab PO DAILY Fish Oil 1,000 Mg Capsule ([place]-3 Fatty Acids/Fish Oil) 1 Each Capsule 4 Each PO DAILY Pancrelipase Dr 5,000 Unit Cap (Lipase/Protease/Amylase) 1 Each Capsule. 4 Each PO Prilosec Otc (Omeprazole Magnesium) 20 Mg Tablet. 20 Mg PO DAILY Lyrica (Pregabalin) 25 Mg Capsule 50 Mg PO TID 30 Days Gemfibrozil 600 Mg Tablet 600 Mg PO BID Spironolactone 25 Mg Tablet 25 Mg PO DAILY Calcitriol 0.25 Mcg Capsule 0.25 Mcg PO DAILY Lantus (Insulin Glargine,Hum.rec.anlog) 100 Unit/1 Ml Vial 22 Unit SQ HS Humalog (Insulin Lispro) 100 Unit/1 Ml Vial 8 Unit SQ TID Folic Acid 1 Mg Tablet 2 Mg PO TID Ferosul (Ferrous Sulfate) 325 Mg Tablet 325 Mg PO Ropinirole Hcl 1 Mg Tablet 1 Mg PO HS Tamsulosin Hcl 0.4 Mg Cap.er.24h 0.8 Mg PO DAILY Travatan Z (Travoprost) 5 Ml Drops 5 Ml OP Vitals/I & O Vital Sign - Last 24 Hours 02/07/17 02/07/17 02/07/17 02/07/17 13:20 13:23 14:04 14:24 Temp 98.1 98.1 Pulse 69 70 Resp 16 B/P 159/65 Pulse Ox 100 100 O2 Delivery Nasal Cannula Nasal Cannula Nasal Cannula Nasal Cannula O2 Flow Rate 2.0 2.0 2.0 2.0 02/07/17 02/07/17 02/07/17 02/07/17 14:26 15:04 17:41 18:11 Temp 98.1 98.1 Pulse 106 Resp 16 B/P 169/75 Pulse Ox 100 100 O2 Delivery Nasal Cannula Room Air Nasal Cannula Nasal Cannula O2 Flow Rate 2.0 2.0 2.0 02/07/17 02/07/17 02/07/17 02/08/17 19:00 20:00 23:00 03:00 Temp 98.4 98.5 97.7 98.4 98.5 97.7 Pulse 81 70 70 Resp 20 18 18 B/P 167/74 133/58 144/80 Pulse Ox 96 100 100 O2 Delivery Nasal Cannula O2 Flow Rate 2.0 02/08/17 02/08/17 02/08/17 07:00 07:49 08:00 Temp 97.7 97.7 Pulse 69 69 Resp 18 B/P 161/73 163/69 Pulse Ox 100 O2 Delivery Nasal Cannula Nasal Cannula O2 Flow Rate 2.0 2.0 Intake and Output 02/07/17 02/07/17 02/08/17 15:00 23:00 07:00 Intake Total 50 ml 480 ml Output Total 1001 ml 900 ml Balance 50 ml -521 ml -900 ml CORBIN CHATMAN MD Feb 08, 2017 10:19
[2017-02-08 10:30] LABS: ALBUMIN 2.8 g/dL (3.4-5.0); PHOSPHORUS 2.4 mg/dL (2.6-4.7); POTASSIUM 3.9 mmol/L (3.5-5.1)
[2017-02-08 10:35] LABS: CREATININE 1.6 mg/dL (0.7-1.3); GFR 41.7
[2017-02-08 11:00] VITALS: BP 149/60
--- NOTE | 2017-02-08 11:25 | PDOC ---
Renal-Progress Notes Subjective Notes Notes NONE History of Present Illness Hx of present illness STABLE Vitals Vitals Vital Signs Date Time Temp Pulse Resp B/P Pulse Ox O2 Delivery O2 Flow Rate FiO2 02/08/17 11:00 97.7 70 20 149/60 100 Nasal Cannula 2.0 97.7 Weight Weight [ ] I.O. Intake and Output Intake and Output 02/08/17 07:00 Intake Total 530 ml Output Total 1901 ml Balance -1371 ml Intake Oral 480 ml IV Total 50 ml Output Urine Total 1900 ml Stool Total 1 ml Labs Labs Laboratory Tests Test 02/07/17 16:59 02/07/17 20:27 02/08/17 03:00 02/08/17 03:10 Glucose (Fingerstick) 144mg/dL (70-99) 331mg/dL (70-99) White Blood Count 4.0x10^3/uL (4.0-11.0) Red Blood Count 2.28x10^6/uL (4.30-5.70) Hemoglobin 7.5g/dL (13.0-17.5) Hematocrit 22.6% (39.0-53.0) Mean Corpuscular Volume 99fL (79-100) Mean Corpuscular Hemoglobin 33pg (25-35) Mean Corpuscular Hemoglobin Concent 33g/dL (31-37) Red Cell Distribution Width 14.7% (11.5-14.5) Platelet Count 75x10^3/uL (140-400) Neutrophils (%) (Auto) 65% (31-73) Lymphocytes (%) (Auto) 21% (24-48) Monocytes (%) (Auto) 13% (0-9) Eosinophils (%) (Auto) 1% (0-3) Basophils (%) (Auto) 0% (0-3) Neutrophils # (Auto) 2.6x10^3uL (1.8-7.7) Lymphocytes # (Auto) 0.8x10^3/uL (1.0-4.8) Monocytes # (Auto) 0.5x10^3/uL (0.0-1.1) Eosinophils # (Auto) 0.0x10^3/uL (0.0-0.7) Basophils # (Auto) 0.0x10^3/uL (0.0-0.2) Prothrombin Time 16.0SEC (11.7-14.0) Prothromb Time International Ratio 1.4 (0.8-1.1) Sodium Level 144mmol/L (136-145) Potassium Level 3.9mmol/L (3.5-5.1) Chloride Level 106mmol/L (98-107) Carbon Dioxide Level 30mmol/L (21-32) Anion Gap 8 (6-14) Blood Urea Nitrogen 35mg/dL (8-26) Creatinine 1.6mg/dL (0.7-1.3) Estimated GFR (Cockcroft-Gault) 41.7 Glucose Level 252mg/dL (70-99) Calcium Level 8.0mg/dL (8.5-10.1) Phosphorus Level 2.4mg/dL (2.6-4.7) Albumin 2.8g/dL (3.4-5.0) Magnesium Level 1.7mg/dL (1.8-2.4) Test 02/08/17 09:56 Glucose (Fingerstick) 193mg/dL (70-99) Micro Micro Microbiology 02/02/17 Urine Culture - Final, Complete 02/02/17 Urine Culture Result 1 (FADIA) - Final, Complete 02/02/17 Antimicrobic Susceptibility - Final, Complete Review of Systems Constitutional: yes: alert Ears/Nose/Throat: Yes: no symptom reported Cardiovascular: Yes no symptom reported Psychiatric/Neurological: Yes: no symptom reported Endocrine: Yes: no symptom reported Physical Exam General Appearance: no apparent distress Skin: warm Respiratory: bilateral CTA Heart: S1S2, RRR Abdomen: soft, bowel sounds present Neurology: alert Assessment Assessment IMP TIM CKD STAGE 4 URINARY RETENTION ENCEPHALOPATHY-BETTER PLAN D/C PLANS NOTED OP HD SET UP AT [facility] LOOK FOR RENAL RECOVERY OP ARACELI CANSECO MD Feb 08, 2017 11:25
--- NOTE | 2017-02-08 12:15 | PDOC ---
PROGRESS NOTES Chief Complaint Chief Complaint Acute renal failure History of Present Illness History of Present Illness Patient is in no acute distress, and without new complaints when evaluated this AM. Patient had IR place his permanent HD catheter this morning, without complications. Pt feels ready to go home. Vitals Vitals Vital Signs Date Time Temp Pulse Resp B/P Pulse Ox O2 Delivery O2 Flow Rate FiO2 02/08/17 11:00 97.7 70 20 149/60 100 Nasal Cannula 2.0 97.7 Physical Exam General: Alert, Oriented X3, Cooperative, No acute distress Heart: Regular rate, Normal S1, Normal S2 Lungs: Clear Abdomen: Soft, No tenderness Extremities: No clubbing, No edema, No tenderness/swelling Skin: No rashes, No significant lesion Labs LABS Laboratory Tests Test 02/07/17 16:59 02/07/17 20:27 02/08/17 03:00 02/08/17 03:10 Glucose (Fingerstick) 144mg/dL (70-99) 331mg/dL (70-99) White Blood Count 4.0x10^3/uL (4.0-11.0) Red Blood Count 2.28x10^6/uL (4.30-5.70) Hemoglobin 7.5g/dL (13.0-17.5) Hematocrit 22.6% (39.0-53.0) Mean Corpuscular Volume 99fL (79-100) Mean Corpuscular Hemoglobin 33pg (25-35) Mean Corpuscular Hemoglobin Concent 33g/dL (31-37) Red Cell Distribution Width 14.7% (11.5-14.5) Platelet Count 75x10^3/uL (140-400) Neutrophils (%) (Auto) 65% (31-73) Lymphocytes (%) (Auto) 21% (24-48) Monocytes (%) (Auto) 13% (0-9) Eosinophils (%) (Auto) 1% (0-3) Basophils (%) (Auto) 0% (0-3) Neutrophils # (Auto) 2.6x10^3uL (1.8-7.7) Lymphocytes # (Auto) 0.8x10^3/uL (1.0-4.8) Monocytes # (Auto) 0.5x10^3/uL (0.0-1.1) Eosinophils # (Auto) 0.0x10^3/uL (0.0-0.7) Basophils # (Auto) 0.0x10^3/uL (0.0-0.2) Prothrombin Time 16.0SEC (11.7-14.0) Prothromb Time International Ratio 1.4 (0.8-1.1) Sodium Level 144mmol/L (136-145) Potassium Level 3.9mmol/L (3.5-5.1) Chloride Level 106mmol/L (98-107) Carbon Dioxide Level 30mmol/L (21-32) Anion Gap 8 (6-14) Blood Urea Nitrogen 35mg/dL (8-26) Creatinine 1.6mg/dL (0.7-1.3) Estimated GFR (Cockcroft-Gault) 41.7 Glucose Level 252mg/dL (70-99) Calcium Level 8.0mg/dL (8.5-10.1) Phosphorus Level 2.4mg/dL (2.6-4.7) Albumin 2.8g/dL (3.4-5.0) Magnesium Level 1.7mg/dL (1.8-2.4) Test 02/08/17 09:56 Glucose (Fingerstick) 193mg/dL (70-99) Review of Systems Review of Systems Denies fever or chills. Denies chest pain and shortness of breath Assessment and Plan Assessmemt and Plan ASSESSMENT: 1. Oliguric, hyperkalemic renal failure POA, needing STAT initiation of HD ( first session 01/29/17), 2. TIM on CKD, maybe even ESRD now needing stat HD initiation 3. MEtabolic encephalopathy 4. Chronic LE edema stable 5. CHF, Multivessel CAD s/p recent CABG 6. SSS with indwelling PPM 7. PAFIB; maintaining SR 8. Therapeutic INR on Coumadin 9. Acute on chronic back pain, indwelling back stimulator - needs adjustment 10. DM2, on insulin 11. BPH 12. AMS with hallucination 2/2 TIM , metabolic encephalopathy likely 14. Acute respiratory failure with hypoventilation with opoids likely PLAN: - will discharge today with HH. - outpatient HD is set up. - IR placed permanent HD catheter this AM without incident. - while admitted cont pain control - Pulm, urology, IR, and renal consulted, appreciate recommendations Problems: Comment Review of Relevant I have reviewed the following items sarah (where applicable) has been applied. Labs Laboratory Tests Test 02/06/17 16:44 02/06/17 20:34 02/07/17 05:10 02/07/17 07:10 Glucose (Fingerstick) 232mg/dL (70-99) 259mg/dL (70-99) 296mg/dL (70-99) Prothrombin Time 16.8SEC (11.7-14.0) Prothromb Time International Ratio 1.5 (0.8-1.1) Sodium Level 142mmol/L (136-145) Potassium Level 4.1mmol/L (3.5-5.1) Chloride Level 103mmol/L (98-107) Carbon Dioxide Level 28mmol/L (21-32) Anion Gap 11 (6-14) Blood Urea Nitrogen 58mg/dL (8-26) Creatinine 2.4mg/dL (0.7-1.3) Estimated GFR (Cockcroft-Gault) 26.1 Glucose Level 335mg/dL (70-99) Calcium Level 8.3mg/dL (8.5-10.1) Phosphorus Level 3.5mg/dL (2.6-4.7) Magnesium Level 2.3mg/dL (1.8-2.4) Albumin 2.9g/dL (3.4-5.0) Test 02/07/17 16:59 02/07/17 20:27 02/08/17 03:00 02/08/17 03:10 Glucose (Fingerstick) 144mg/dL (70-99) 331mg/dL (70-99) White Blood Count 4.0x10^3/uL (4.0-11.0) Red Blood Count 2.28x10^6/uL (4.30-5.70) Hemoglobin 7.5g/dL (13.0-17.5) Hematocrit 22.6% (39.0-53.0) Mean Corpuscular Volume 99fL (79-100) Mean Corpuscular Hemoglobin 33pg (25-35) Mean Corpuscular Hemoglobin Concent 33g/dL (31-37) Red Cell Distribution Width 14.7% (11.5-14.5) Platelet Count 75x10^3/uL (140-400) Neutrophils (%) (Auto) 65% (31-73) Lymphocytes (%) (Auto) 21% (24-48) Monocytes (%) (Auto) 13% (0-9) Eosinophils (%) (Auto) 1% (0-3) Basophils (%) (Auto) 0% (0-3) Neutrophils # (Auto) 2.6x10^3uL (1.8-7.7) Lymphocytes # (Auto) 0.8x10^3/uL (1.0-4.8) Monocytes # (Auto) 0.5x10^3/uL (0.0-1.1) Eosinophils # (Auto) 0.0x10^3/uL (0.0-0.7) Basophils # (Auto) 0.0x10^3/uL (0.0-0.2) Prothrombin Time 16.0SEC (11.7-14.0) Prothromb Time International Ratio 1.4 (0.8-1.1) Sodium Level 144mmol/L (136-145) Potassium Level 3.9mmol/L (3.5-5.1) Chloride Level 106mmol/L (98-107) Carbon Dioxide Level 30mmol/L (21-32) Anion Gap 8 (6-14) Blood Urea Nitrogen 35mg/dL (8-26) Creatinine 1.6mg/dL (0.7-1.3) Estimated GFR (Cockcroft-Gault) 41.7 Glucose Level 252mg/dL (70-99) Calcium Level 8.0mg/dL (8.5-10.1) Phosphorus Level 2.4mg/dL (2.6-4.7) Albumin 2.8g/dL (3.4-5.0) Magnesium Level 1.7mg/dL (1.8-2.4) Test 02/08/17 09:56 Glucose (Fingerstick) 193mg/dL (70-99) Laboratory Tests Test 02/07/17 16:59 02/07/17 20:27 02/08/17 03:00 02/08/17 03:10 Glucose (Fingerstick) 144mg/dL (70-99) 331mg/dL (70-99) White Blood Count 4.0x10^3/uL (4.0-11.0) Red Blood Count 2.28x10^6/uL (4.30-5.70) Hemoglobin 7.5g/dL (13.0-17.5) Hematocrit 22.6% (39.0-53.0) Mean Corpuscular Volume 99fL (79-100) Mean Corpuscular Hemoglobin 33pg (25-35) Mean Corpuscular Hemoglobin Concent 33g/dL (31-37) Red Cell Distribution Width 14.7% (11.5-14.5) Platelet Count 75x10^3/uL (140-400) Neutrophils (%) (Auto) 65% (31-73) Lymphocytes (%) (Auto) 21% (24-48) Monocytes (%) (Auto) 13% (0-9) Eosinophils (%) (Auto) 1% (0-3) Basophils (%) (Auto) 0% (0-3) Neutrophils # (Auto) 2.6x10^3uL (1.8-7.7) Lymphocytes # (Auto) 0.8x10^3/uL (1.0-4.8) Monocytes # (Auto) 0.5x10^3/uL (0.0-1.1) Eosinophils # (Auto) 0.0x10^3/uL (0.0-0.7) Basophils # (Auto) 0.0x10^3/uL (0.0-0.2) Prothrombin Time 16.0SEC (11.7-14.0) Prothromb Time International Ratio 1.4 (0.8-1.1) Sodium Level 144mmol/L (136-145) Potassium Level 3.9mmol/L (3.5-5.1) Chloride Level 106mmol/L (98-107) Carbon Dioxide Level 30mmol/L (21-32) Anion Gap 8 (6-14) Blood Urea Nitrogen 35mg/dL (8-26) Creatinine 1.6mg/dL (0.7-1.3) Estimated GFR (Cockcroft-Gault) 41.7 Glucose Level 252mg/dL (70-99) Calcium Level 8.0mg/dL (8.5-10.1) Phosphorus Level 2.4mg/dL (2.6-4.7) Albumin 2.8g/dL (3.4-5.0) Magnesium Level 1.7mg/dL (1.8-2.4) Test 02/08/17 09:56 Glucose (Fingerstick) 193mg/dL (70-99) Microbiology 02/02/17 Urine Culture - Final, Complete 02/02/17 Urine Culture Result 1 (FADIA) - Final, Complete 02/02/17 Antimicrobic Susceptibility - Final, Complete Medications Current Medications Calcium Gluconate 1,000 mg 1X ONCE IVP Last administered on 01/29/17 14:19; Start 01/29/17 at 13:45; Stop 01/29/17 at 13:46; Status DC Dextrose 25 gm 1X ONCE IV Last administered on 01/29/17 14:29; Start 01/29/17 at 13:45; Stop 01/29/17 at 13:46; Status DC Insulin Human Regular (Novolin R Vial) 10 unit 1X ONCE IV Last administered on 01/29/17 14:32; Start 01/29/17 at 13:45; Stop 01/29/17 at 13:46; Status DC Furosemide (Lasix) 40 mg 1X ONCE IVP Last administered on 01/29/17 14:33; Start 01/29/17 at 13:45; Stop 01/29/17 at 13:46; Status DC Oxycodone/ Acetaminophen (Percocet 5/325) 1 tab 1X ONCE PO Last administered on 01/29/17 14:18; Start 01/29/17 at 14:00; Stop 01/29/17 at 14:02; Status DC Ondansetron HCl (Zofran) 4 mg PRN Q8HRS PRN IV NAUSEA/VOMITING; Start 01/29/17 at 14:15; Stop 01/29/17 at 14:43; Status DC Fentanyl Citrate 50 mcg 50 mcg PRN Q2HR PRN IV PAIN Last administered on 11:04; Start 01/29/17 at 14:15; Stop 01/30/17 at 14:14; Status DC Sodium Chloride (Iv Sodium Chloride 0.9% 1000ml Bag) 1,000 ml @ 75 mls/hr [id number] IV Last administered on 01/29/17 22:15; Start 01/29/17 at 14:12; Stop at 14:11; Status DC Acetaminophen (Tylenol) 650 mg PRN Q4HRS PRN PO FEVER; Start 01/29/17 at 14:15; Stop 01/30/17 at 14:14; Status DC Ondansetron HCl (Zofran) 4 mg PRN Q6HRS PRN IV NAUSEA/VOMITING; Start 01/29/17 at 14:39 Alprazolam (Xanax) 0.5 mg PRN TID PRN PO nerves Last administered on 02/06/17 08:11; Start 01/29/17 at 14:45 Calcitriol (Rocaltrol) 0.25 mcg DAILY PO Last administered on 02/08/17 07:44; Start 01/30/17 at 09:00 Dorzolamide/ Timolol (Cosopt) 1 drop BID OU Last administered on 02/08/17 07: 50; Start 01/29/17 at 21:00 Ferrous Sulfate (Feosol) 325 mg DAILY PO Last administered on 02/08/17 07:44; Start 01/30/17 at 09:00 Folic Acid (Folic Acid) 2 mg TID PO Last administered on 02/08/17 07:44; Start 01/29/17 at 15:30 Gemfibrozil (Lopid) 600 mg BIDBFRMEAL PO Last administered on 02/08/17 07:44; Start 01/29/17 at 16:30 Latanoprost (Xalatan) 1 drop QHS OU Last administered on 02/08/17 07:50; Start 01/29/17 at 21:00 Amylase/Lipase/ Protease (Zenpep 5,000) 4 cap DAILY PO Last administered on 07:48; Start 01/30/17 at 09:00 Metoprolol Tartrate (Lopressor) 50 mg DAILY PO Last administered on 02/02/17 08 :46; Start 01/30/17 at 09:00; Stop 02/02/17 at 11:13; Status DC Fish Oil (Fish Oil) 1,000 mg DAILY PO Last administered on 02/08/17 07:45; Start 01/30/17 at 09:00 Pregabalin (Lyrica) 75 mg BID PO Last administered on 02/08/17 07:50; Start at 21:00 Ropinirole HCl (Requip) 1 mg HS PO Last administered on 02/07/17 21:26; Start 01/29/17 at 21:00 Sennosides (Senna) 8.6 mg BID PO Last administered on 02/08/17 07:44; Start at 21:00 Spironolactone (Aldactone) 25 mg DAILY PO Last administered on 02/02/17 08:43; Start 01/30/17 at 09:00; Stop 02/02/17 at 11:13; Status DC Tamsulosin HCl (Flomax) 0.8 mg DAILY PO Last administered on 02/08/17 07:44; Start 01/30/17 at 09:00 Insulin Detemir (Levemir) 22 units QHS SQ ; Start 01/29/17 at 21:00; Stop at 11:22; Status DC Insulin Aspart (Novolog) 8 units TIDBFRMEAL SQ Last administered on 01/30/17 08 :48; Start 01/29/17 at 16:30; Stop 01/30/17 at 11:22; Status DC Pantoprazole Sodium (Protonix) 40 mg DAILYAC PO Last administered on 02/08/17 07:45; Start 01/30/17 at 07:30 Morphine Sulfate (Ms Contin) 30 mg BID PO Last administered on 02/02/17 08:46; Start 01/29/17 at 21:00; Stop 02/02/17 at 12:11; Status DC Phytonadione (Mephyton) 5 mg 1X ONCE PO ; Start 01/29/17 at 15:30; Stop 01/29/17 at 15:31; Status DC Insulin Aspart (Novolog) 0-9 UNITS TIDWMEALS SQ Last administered on 02/08/17 08:00; Start 01/29/17 at 17:00 Dextrose 12.5 gm 12.5 gm PRN Q15MIN PRN IV SEE COMMENTS Last administered on 18:40; Start 01/29/17 at 14:45 Sodium Chloride (Iv Sodium Chloride 0.9% 500ml Bag) 500 ml @ 500 mls/hr 1X ONCE IV Last administered on 01/29/17 15:15; Start 01/29/17 at 15:15; Stop at 16:14; Status DC Heparin Sodium (Porcine) 80619 unit 10,000 unit STK-MED ONCE .ROUTE ; Start 01/29 at 15:30; Stop 01/29/17 at 15:31; Status DC Heparin Sodium/ Sodium Chloride 500 ml @ As Directed STK-MED ONCE .ROUTE ; Start 01/29/17 at 15:30; Stop 01/29/17 at 15:31; Status DC Lidocaine/ Epinephrine (Xylocaine 1%-Epi 1:100,000) 20 ml STK-MED ONCE .ROUTE ; Start 01/29/17 at 15:31; Stop 01/29/17 at 15:32; Status DC Lidocaine/ Epinephrine (Xylocaine 1%-Epi 1:100,000) 4 ml 1X ONCE IJ Last administered on 01/29/17 16:30; Start 01/29/17 at 16:00; Stop 01/29/17 at 16:01; Status DC Heparin Sodium/ Sodium Chloride 60 unit 1X ONCE IV Last administered on 16:30; Start 01/29/17 at 16:00; Stop 01/29/17 at 16:01; Status DC Heparin Sodium (Porcine) 2500 unit 2,500 unit 1X ONCE INT CAT Last administered on 01/29/17 16:30; Start 01/29/17 at 16:00; Stop 01/29/17 at 16:01; Status DC Sodium Chloride 1,000 ml @ 1,000 mls/hr Q1H PRN IV hypotension; Start 01/29/17 at 17:31; Stop 01/29/17 at 23:30; Status DC Albumin Human (Albuminar) 200 ml @ 200 mls/hr 1X PRN PRN IV Hypotension; Start 01/29/17 at 17:45; Stop 01/29/17 at 23:30; Status DC Sodium Chloride (Normal Saline Flush) 10 ml 1X PRN PRN IV AP 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; Start 01/29/17 at 17:45; Stop 01/29/17 at 23:30; Status DC Sodium Chloride (Normal Saline Flush) 10 ml 1X PRN PRN IV WE[employer] DES[employer] 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; Start 01/29/17 at 17:45; Stop 01/29/17 at 23:30; Status DC Info (PHARMACY MONITORING -- do not chart) 1 each PRN DAILY PRN MC SEE COMMENTS ; Start 01/29/17 at 17:45 Info (PHARMACY MONITORING -- do not chart) 1 each PRN DAILY PRN MC SEE COMMENTS ; Start 01/29/17 at 17:45; Status UNV Aspirin (Ecotrin) 81 mg DAILY PO Last administered on 02/08/17 07:44; Start at 09:00 Warfarin Sodium (Coumadin) 4 mg DAILY16 PO Last administered on 02/01/17 16:40 ; Start 01/29/17 at 19:00; Stop 02/02/17 at 12:11; Status DC Warfarin Sodium (Coumadin Per Physician) 1 each PRN DAILY PRN MC SEE COMMENTS Last administered on 02/03/17 13:55; Start 01/29/17 at 18:30; Stop 02/04/17 at 14 :20; Status DC Insulin Aspart (Novolog) 5 units TIDBFRMEAL SQ Last administered on 02/01/17 11 :50; Start 01/30/17 at 11:30; Stop 02/02/17 at 11:01; Status DC Insulin Detemir 18 units 18 units QHS SQ Last administered on 01/31/17 21:31; Start 01/30/17 at 21:00; Stop 02/02/17 at 11:01; Status DC Sodium Chloride (Iv Sodium Chloride 0.9% 1000ml Bag) 1,000 ml @ 1,000 mls/hr Q1H PRN IV hypotension; Start 01/30/17 at 11:38; Stop 01/30/17 at 17:37; Status DC Sodium Chloride (Normal Saline Flush) 10 ml 1X PRN PRN IV AP 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; Start 01/30/17 at 11:45; Stop 01/31/17 at 11:44; Status DC Sodium Chloride (Normal Saline Flush) 10 ml 1X PRN PRN IV [employer] 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; Start 01/30/17 at 11:45; Stop 01/31/17 at 11:44; Status DC Info (PHARMACY MONITORING -- do not chart) 1 each PRN DAILY PRN MC SEE COMMENTS ; Start 01/30/17 at 11:45; Status UNV Info (PHARMACY MONITORING -- do not chart) 1 each PRN DAILY PRN MC SEE COMMENTS ; Start 01/30/17 at 11:45; Status UNV Oxycodone/ Acetaminophen (Percocet 5/325) 1 tab PRN Q4HRS PRN PO PAIN Last administered on 02/07/17 14:04; Start 01/30/17 at 18:45 Oxycodone/ Acetaminophen (Percocet 10/325) 1 tab PRN Q4HRS PRN PO PAIN Last administered on 02/01/17 14:03; Start 01/30/17 at 18:45; Stop 02/02/17 at 12:11; Status DC Insulin Aspart (Novolog) 9 units 1X ONCE SQ Last administered on 01/30/17 21: 57; Start 01/30/17 at 21:30; Stop 01/30/17 at 21:31; Status DC Lidocaine/Sodium Bicarbonate (Buffered Lidocaine 1%) 3 ml 1X ONCE IJ Last administered on 01/31/17 12:15; Start 01/31/17 at 12:15; Stop 01/31/17 at 12:16; Status DC Heparin Sodium/ Sodium Chloride 60 unit 1X ONCE IV Last administered on 13:02; Start 01/31/17 at 12:15; Stop 01/31/17 at 12:16; Status DC Heparin Sodium (Porcine) 2,500 unit 1X ONCE INT CAT Last administered on 13:02; Start 01/31/17 at 12:15; Stop 01/31/17 at 12:16; Status DC Heparin Sodium (Porcine) 10,000 unit STK-MED ONCE .ROUTE ; Start 01/31/17 at 12: 18; Stop 01/31/17 at 12:19; Status DC Fentanyl Citrate (Fentanyl 2ml Vial) 100 mcg STK-MED ONCE .ROUTE ; Start at 12:29; Stop 01/31/17 at 12:30; Status DC Midazolam HCl (Versed) 2 mg STK-MED ONCE .ROUTE ; Start 01/31/17 at 12:29; Stop 01/31/17 at 12:30; Status DC Midazolam HCl (Versed) 2 mg 1X ONCE IV Last administered on 01/31/17 13:01; Start 01/31/17 at 13:00; Stop 01/31/17 at 13:01; Status DC Non-Formulary Medication 1 ea QID OS Last administered on 02/08/17 07:50; Start 01/31/17 at 14:00 Non-Formulary Medication 1 ea QHS OS Last administered on 02/07/17 07:56; Start 01/31/17 at 21:00 Darbepoetin Joshua (Aranesp) 60 mcg WEEKLYHS SQ Last administered on 02/01/17 21: 25; Start 02/01/17 at 21:00 Insulin Detemir (Levemir) 10 units QHS SQ Last administered on 02/04/17 21:30 ; Start 02/02/17 at 21:00; Stop 02/05/17 at 14:17; Status DC Metoprolol Tartrate (Lopressor) 25 mg DAILY PO Last administered on 02/08/17 07:49; Start 02/03/17 at 09:00 Morphine Sulfate (Ms Contin) 20 mg BID PO ; Start 02/02/17 at 21:00; Stop at 21:00; Status DC Morphine Sulfate (Ms Contin) 15 mg BID PO Last administered on 02/02/17 21:23; Start 02/02/17 at 21:00; Stop 02/03/17 at 11:23; Status DC Naloxone HCl 0.2 mg 0.2 mg 1X ONCE IV Last administered on 02/02/17 23:28; Start 02/02/17 at 23:30; Stop 02/02/17 at 23:31; Status DC Sodium Chloride (Iv Sodium Chloride 0.9% 1000ml Bag) 1,000 ml @ 1,000 mls/hr Q1H PRN IV hypotension; Start 02/03/17 at 11:00; Stop 02/03/17 at 23:00; Status DC Sodium Chloride (Normal Saline Flush) 10 ml 1X PRN PRN IV AP 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; Start 02/03/17 at 11:15; Stop 02/03/17 at 23:00; Status DC Sodium Chloride (Normal Saline Flush) 10 ml 1X PRN PRN IV [employer] 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; Start 02/03/17 at 11:15; Stop 02/03/17 at 23:00; Status DC Info (PHARMACY MONITORING -- do not chart) 1 each PRN DAILY PRN MC SEE COMMENTS ; Start 02/03/17 at 11:15; Status UNV Info 1 each 1 each PRN DAILY PRN MC SEE COMMENTS; Start 02/03/17 at 11:15; Status UNV Ceftriaxone Sodium 1 gm/ Sodium Chloride 50 ml @ 100 mls/hr Q24H IV Last administered on 02/07/17 14:09; Start 02/03/17 at 14:00 Sodium Chloride 1,000 ml @ 1,000 mls/hr Q1H PRN IV hypotension; Start 02/04/17 at 07:53; Stop 02/04/17 at 13:52; Status DC Albumin Human (Albuminar) 200 ml @ 200 mls/hr 1X PRN PRN IV Hypotension; Start 02/04/17 at 08:00; Stop 02/04/17 at 13:59; Status DC Acetaminophen (Tylenol) 500 mg 1X PRN PRN PO MILD PAIN / TEMP Last administered on 02/04/17 09:32; Start 02/04/17 at 08:00; Stop 02/05/17 at 07:59 ; Status DC Diphenhydramine HCl (Benadryl) 25 mg 1X PRN PRN IV ITCHING; Start 02/04/17 at 08:00; Stop 02/05/17 at 07:59; Status DC Diphenhydramine HCl (Benadryl) 25 mg 1X PRN PRN IV ITCHING; Start 02/04/17 at 08:00; Stop 02/05/17 at 07:59; Status DC Sodium Chloride (Normal Saline Flush) 10 ml 1X PRN PRN IV AP 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; Start 02/04/17 at 08:00; Stop 02/05/17 at 07:59; Status DC Sodium Chloride (Normal Saline Flush) 10 ml 1X PRN PRN IV [employer] 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; Start 02/04/17 at 08:00; Stop 02/05/17 at 07:59; Status DC Labetalol HCl 10 mg 10 mg PRN Q1HR PRN IVP SBP > 180; Start 02/04/17 at 08:00; Stop 02/05/17 at 07:59; Status DC Sodium Chloride (Iv Sodium Chloride 0.9% 1000ml Bag) 1,000 ml @ 400 mls/hr Q2H30M PRN IV PATENCY; Start 02/04/17 at 07:53; Stop 02/04/17 at 19:52; Status DC Info 1 each 1 each PRN DAILY PRN MC SEE COMMENTS; Start 02/04/17 at 08:00; Status UNV Magnesium Sulfate/ Dextrose 50 ml @ 25 mls/hr PRN DAILY PRN IV for Mag < 1.7 on am labs; Start 02/04/17 at 09:00 Sodium Chloride (Iv Sodium Chloride 0.9% 1000ml Bag) 1,000 ml @ 1,000 mls/hr Q1H PRN IV hypotension; Start 02/05/17 at 08:25; Stop 02/05/17 at 14:24; Status DC Acetaminophen (Tylenol) 500 mg 1X PRN PRN PO MILD PAIN / TEMP; Start 02/05/17 at 08:30; Stop 02/06/17 at 08:29; Status DC Diphenhydramine HCl (Benadryl) 25 mg 1X PRN PRN IV ITCHING; Start 02/05/17 at 08:30; Stop 02/06/17 at 08:29; Status DC Diphenhydramine HCl (Benadryl) 25 mg 1X PRN PRN IV ITCHING; Start 02/05/17 at 08:30; Stop 02/06/17 at 08:29; Status DC Sodium Chloride (Normal Saline Flush) 10 ml 1X PRN PRN IV AP 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; Start 02/05/17 at 08:30; Stop 02/06/17 at 08:29; Status DC Sodium Chloride (Normal Saline Flush) 10 ml 1X PRN PRN IV [employer] 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; Start 02/05/17 at 08:30; Stop 02/06/17 at 08:29; Status DC Labetalol HCl 10 mg 10 mg PRN Q1HR PRN IVP SBP > 180; Start 02/05/17 at 08:30; Stop 02/06/17 at 08:29; Status DC Sodium Chloride (Iv Sodium Chloride 0.9% 1000ml Bag) 1,000 ml @ 400 mls/hr Q2H30M PRN IV PATENCY; Start 02/05/17 at 08:25; Stop 02/05/17 at 20:24; Status DC Info (PHARMACY MONITORING -- do not chart) 1 each PRN DAILY PRN MC SEE COMMENTS ; Start 02/05/17 at 08:30; Status UNV Lidocaine (Lidoderm) 1 patch DAILY TD Last administered on 02/08/17 07:44; Start 02/05/17 at 12:00 Morphine Sulfate (Ms Contin) 15 mg BID PO Last administered on 02/06/17 20:27 ; Start 02/05/17 at 12:00; Stop 02/07/17 at 15:34; Status DC Lidocaine (Lidoderm) 1 patch DAILY TD ; Start 02/05/17 at 13:00; Stop 02/06/17 at 08:27; Status DC Insulin Detemir (Levemir) 15 units QHS SQ ; Start 02/05/17 at 21:00; Stop at 22:21; Status DC Insulin Aspart (Novolog) 6 units 1X ONCE SQ Last administered on 02/05/17 17: 08; Start 02/05/17 at 17:00; Stop 02/05/17 at 17:01; Status DC Insulin Detemir (Levemir) 17 units QHS SQ ; Start 02/06/17 at 21:00; Stop at 21:00; Status DC Insulin Aspart 5 units 5 units TIDAC SQ Last administered on 02/06/17 08:22; Start 02/06/17 at 07:30; Stop 02/06/17 at 09:33; Status DC Magnesium Sulfate/ Dextrose (Magnesium Sulfate PREMIX 2GM) 50 ml @ 25 mls/hr 1X ONCE IV Last administered on 02/06/17 10:21; Start 02/06/17 at 10:00; Stop 02/06/17 at 11:59; Status DC Insulin Aspart (Novolog) 7 units TIDAC SQ Last administered on 02/08/17 08:00 ; Start 02/06/17 at 11:30 Insulin Detemir 20 units 20 units QHS SQ Last administered on 02/07/17 21:38; Start 02/06/17 at 21:00 Magnesium Sulfate/ Dextrose (Magnesium Sulfate PREMIX 2GM) 50 ml @ 25 mls/hr 1X ONCE IV Last administered on 02/06/17 10:22; Start 02/06/17 at 10:30; Stop 02/06/17 at 12:29; Status DC Cyclobenzaprine HCl 10 mg 10 mg 1X ONCE PO Last administered on 02/06/17 12: 02; Start 02/06/17 at 11:30; Stop 02/06/17 at 11:31; Status DC Potassium Phosphate 10 mmol/ Sodium Chloride 103.3333 ml @ 51.667 m... Q2H IV Last administered on 02/06/17 20:43; Start 02/06/17 at 14:30; Stop 02/06/17 at 18:29; Status DC Sodium Chloride (Iv Sodium Chloride 0.9% 1000ml Bag) 1,000 ml @ 1,000 mls/hr Q1H PRN IV hypotension; Start 02/07/17 at 09:11; Stop 02/07/17 at 15:10; Status DC Acetaminophen (Tylenol) 500 mg 1X PRN PRN PO MILD PAIN / TEMP; Start 02/07/17 at 09:15; Stop 02/08/17 at 09:14; Status DC Diphenhydramine HCl (Benadryl) 25 mg 1X PRN PRN IV ITCHING; Start 02/07/17 at 09:15; Stop 02/08/17 at 09:14; Status DC Diphenhydramine HCl (Benadryl) 25 mg 1X PRN PRN IV ITCHING; Start 02/07/17 at 09:15; Stop 02/08/17 at 09:14; Status DC Labetalol HCl 10 mg 10 mg PRN Q1HR PRN IVP SBP > 180; Start 02/07/17 at 09:15; Stop 02/08/17 at 09:14; Status DC Sodium Chloride (Iv Sodium Chloride 0.9% 1000ml Bag) 1,000 ml @ 400 mls/hr Q2H30M PRN IV PATENCY; Start 02/07/17 at 09:11; Stop 02/07/17 at 21:10; Status DC Info 1 each 1 each PRN DAILY PRN MC SEE COMMENTS; Start 02/07/17 at 09:15; Status UNV Sodium Chloride (Iv Sodium Chloride 0.9% 1000ml Bag) 1,000 ml @ 75 mls/hr [id number] IV Last administered on 02/08/17 04:15; Start 02/07/17 at 11:45 Heparin Sodium (Porcine) 10,000 unit STK-MED ONCE .ROUTE ; Start 02/07/17 at 12: 23; Stop 02/07/17 at 12:24; Status DC Lidocaine/Sodium Bicarbonate 20 ml 20 ml STK-MED ONCE IJ ; Start 02/07/17 at 12: 23; Stop 02/07/17 at 12:24; Status DC Heparin Sodium/ Sodium Chloride 500 ml @ As Directed STK-MED ONCE .ROUTE ; Start 02/07/17 at 12:23; Stop 02/07/17 at 12:24; Status DC Midazolam HCl (Versed) 2 mg STK-MED ONCE .ROUTE ; Start 02/07/17 at 12:46; Stop 02/07/17 at 12:47; Status DC Fentanyl Citrate 100 mcg 100 mcg STK-MED ONCE .ROUTE ; Start 02/07/17 at 12:46; Stop 02/07/17 at 12:47; Status DC Cefazolin Sodium (Ancef 1gm Ivpb For Omni) 50 ml @ As Directed STK-MED ONCE IV ; Start 02/07/17 at 12:46; Stop 02/07/17 at 12:47; Status DC Heparin Sodium/ Sodium Chloride 1,000 unit 1X ONCE IART Last administered on 13:18; Start 02/07/17 at 13:00; Stop 02/07/17 at 13:01; Status DC Lidocaine/Sodium Bicarbonate (Buffered Lidocaine 1%) 20 ml 1X ONCE IJ Last administered on 02/07/17 13:18; Start 02/07/17 at 13:00; Stop 02/07/17 at 13:01 ; Status DC Midazolam HCl (Versed) 2 mg 1X ONCE IV Last administered on 02/07/17 13:20; Start 02/07/17 at 13:00; Stop 02/07/17 at 13:01; Status DC Fentanyl Citrate (Fentanyl 2ml Vial) 100 mcg 1X ONCE IV Last administered on 13:20; Start 02/07/17 at 13:00; Stop 02/07/17 at 13:01; Status DC Heparin Sodium (Porcine) 2600 unit 2,600 unit 1X ONCE INT CAT Last administered on 02/07/17 13:21; Start 02/07/17 at 13:00; Stop 02/07/17 at 13:01 ; Status DC Cefazolin Sodium/ Dextrose 50 ml @ 0 mls/hr 1X ONCE IV Last administered on 13:30; Start 02/07/17 at 13:30; Stop 02/07/17 at 13:31; Status DC Cefazolin Sodium (Ancef 1gm Ivpb For Omni) 50 ml @ 100 mls/hr 1X ONCE IV Last administered on 02/07/17 13:37; Start 02/07/17 at 13:45; Stop 02/07/17 at 14:14; Status DC Cyclobenzaprine HCl (Flexeril) 10 mg PRN Q8HRS PRN PO MUSCLE SPASMS Last administered on 02/07/17 17:41; Start 02/07/17 at 15:45 Butorphanol Tartrate (Stadol) 1 mg PRN Q6HRS PRN IV PAIN Last administered on 17:41; Start 02/07/17 at 15:45; Stop 02/07/17 at 18:45; Status DC Naloxone HCl (Narcan) 0.4 mg 1X ONCE IV Last administered on 02/07/17 17:58; Start 02/07/17 at 18:00; Stop 02/07/17 at 18:01; Status DC Lorazepam (Ativan) 0.5 mg PRN Q4HRS PRN IV ANXIETY / AGITATION Last administered on 02/07/17 18:21; Start 02/07/17 at 18:15 Insulin Aspart (Novolog) 9 units 1X ONCE SQ Last administered on 02/07/17 21: 39; Start 02/07/17 at 21:15; Stop 02/07/17 at 21:16; Status DC Active Scripts Active Lasix (Furosemide) 80 Mg Tablet 1 Tab PO DAILY Reported Itbrwj-Gqvls-Vsistkg Eye Ointm ([place]/Polymyx B Sulf/Dexameth) 3.5 Gm Oint...g. 3.5 Gm OS QHS Durezol (Difluprednate) 5 Ml Drops 1 Drop OS QID Aspir 81 (Aspirin) 81 Mg Tablet.dr 1 Tab PO DAILY Senokot (Sennosides) 8.6 Mg Tablet 3 Tab PO BID Morphine Sulfate Er (Morphine Sulfate) 60 Mg Cap.er.pel 60 Mg PO Metoprolol Tartrate 50 Mg Tablet 0.5 Tab PO DAILY Latanoprost 2.5 Ml Drops 1 Drop EACHEYE QHS Gemfibrozil 600 Mg Tablet 1 Tab PO BID Dorzolamide-Timolol Eye Drops (Dorzolamide Hcl/Timolol Maleat) 10 Ml Drops 1 Drop RIGHTEYE BID Lyrica (Pregabalin) 75 Mg Capsule 1 Cap PO BID Alprazolam 0.5 Mg Tablet 1 Tab PO TID Warfarin Sodium 4 Mg Tablet 1 Tab PO DAILY Fish Oil 1,000 Mg Capsule ([place]-3 Fatty Acids/Fish Oil) 1 Each Capsule 4 Each PO DAILY Pancrelipase Dr 5,000 Unit Cap (Lipase/Protease/Amylase) 1 Each Capsule.dr 4 Each PO Prilosec Otc (Omeprazole Magnesium) 20 Mg Tablet.dr 20 Mg PO DAILY Lyrica (Pregabalin) 25 Mg Capsule 50 Mg PO TID 30 Days Gemfibrozil 600 Mg Tablet 600 Mg PO BID Spironolactone 25 Mg Tablet 25 Mg PO DAILY Calcitriol 0.25 Mcg Capsule 0.25 Mcg PO DAILY Lantus (Insulin Glargine,Hum.rec.anlog) 100 Unit/1 Ml Vial 22 Unit SQ HS Humalog (Insulin Lispro) 100 Unit/1 Ml Vial 8 Unit SQ TID Folic Acid 1 Mg Tablet 2 Mg PO TID Ferosul (Ferrous Sulfate) 325 Mg Tablet 325 Mg PO Ropinirole Hcl 1 Mg Tablet 1 Mg PO HS Tamsulosin Hcl 0.4 Mg Cap.er.24h 0.8 Mg PO DAILY Travatan Z (Travoprost) 5 Ml Drops 5 Ml OP Vitals/I & O Vital Sign - Last 24 Hours 02/07/17 02/07/17 02/07/17 02/07/17 13:20 13:23 14:04 14:24 Temp 98.1 98.1 Pulse 69 70 Resp 16 B/P 159/65 Pulse Ox 100 100 O2 Delivery Nasal Cannula Nasal Cannula Nasal Cannula Nasal Cannula O2 Flow Rate 2.0 2.0 2.0 2.0 02/07/17 02/07/17 02/07/17 02/07/17 14:26 15:04 17:41 18:11 Temp 98.1 98.1 Pulse 106 Resp 16 16 B/P 169/75 Pulse Ox 100 100 O2 Delivery Nasal Cannula Room Air Nasal Cannula Nasal Cannula O2 Flow Rate 2.0 2.0 2.0 02/07/17 02/07/17 02/07/17 02/08/17 19:00 20:00 23:00 03:00 Temp 98.4 98.5 97.7 98.4 98.5 97.7 Pulse 81 70 70 Resp 20 18 18 B/P 167/74 133/58 144/80 Pulse Ox 96 100 100 O2 Delivery Nasal Cannula O2 Flow Rate 2.0 02/08/17 02/08/17 02/08/17 02/08/17 07:00 07:49 08:00 11:00 Temp 97.7 97.7 97.7 97.7 Pulse 69 69 70 Resp 18 20 B/P 161/73 163/69 149/60 Pulse Ox 100 100 O2 Delivery Nasal Cannula Nasal Cannula Nasal Cannula O2 Flow Rate 2.0 2.0 2.0 Intake and Output 02/07/17 02/07/17 02/08/17 15:00 23:00 07:00 Intake Total 50 ml 480 ml Output Total 1001 ml 900 ml Balance 50 ml -521 ml -900 ml WIL HUNG III DO Feb 08, 2017 12:15
[2017-02-16] MEDS ORDERED: INSU100I27 SQ (11:08)
[2017-02-16] MEDS ORDERED: INSU100I17 SQ (11:08)
--- NOTE | 2017-02-16 18:10 | DS ---
DATE OF DISCHARGE: 02/08/2017 ADMISSION DIAGNOSIS: Acute renal failure. DISCHARGE DIAGNOSIS: End-stage renal disease, on dialysis now for 1 week. HOSPITAL COURSE: The patient is a pleasant 81-year-old male who presented with acute renal failure. It appears he has end-stage renal disease. He was placed on dialysis. We placed a permanent dialysis catheter. He is doing well. We plan to discharge with home health. DISPOSITION: Home with home health. ACTIVITY: As tolerated. DIET: Renal. MEDICATIONS: Please see the MRAD. TOTAL TIME ON DISCHARGE: 33 minutes. WIL HUNG DO DR: ALEX/elpidio JOB#: [id number] / [id number]
== END 2017-02-08 12:51 | disposition home health service (06) | DRG 917 ==
LOC: ER 11:44 → 5 SOUTH 13:50
PROVIDERS: ADMIT Internal Medicine; ATTEND Internal Medicine
PROC: 05HM33Z Insertion of Infusion Device into Right Internal Jugular Vein, Percutaneous Approach (ICD-10-PCS; 2017-01-29)
PROC: B543ZZA Ultrasonography of Right Jugular Veins, Guidance (ICD-10-PCS; 2017-01-29)
PROC: B5131ZA Fluoroscopy of Right Jugular Veins using Low Osmolar Contrast, Guidance (ICD-10-PCS; 2017-01-31)
PROC: 30233L1 Transfusion of Nonautologous Fresh Plasma into Peripheral Vein, Percutaneous Approach (ICD-10-PCS; principal; 2017-02-03)
PROC: 30233K1 Transfusion of Nonautologous Frozen Plasma into Peripheral Vein, Percutaneous Approach (ICD-10-PCS; 2017-02-03)
PROC: 5A09357 Assistance with Respiratory Ventilation, Less than 24 Consecutive Hours, Continuous Positive Airway Pressure (ICD-10-PCS; 2017-02-03)
PROC: 5A1D60Z (ICD-10-PCS; 2017-02-04)
PROC: 02HV33Z Insertion of Infusion Device into Superior Vena Cava, Percutaneous Approach (ICD-10-PCS; 2017-02-08)
PROC: B5181ZA Fluoroscopy of Superior Vena Cava using Low Osmolar Contrast, Guidance (ICD-10-PCS; 2017-02-08)
PROC: B548ZZA Ultrasonography of Superior Vena Cava, Guidance (ICD-10-PCS; 2017-02-08)
DX: T40.601A Poisoning by unspecified narcotics, accidental (unintentional), initial encounter (principal); N18.6 End stage renal disease; G92 Toxic encephalopathy; J96.02 Acute respiratory failure with hypercapnia; N17.0 Acute kidney failure with tubular necrosis; R18.8 Other ascites; I42.0 Dilated cardiomyopathy; I12.0 Hypertensive chronic kidney disease with stage 5 chronic kidney disease or end stage renal disease; N39.0 Urinary tract infection, site not specified; F11.20 Opioid dependence, uncomplicated; I50.9 Heart failure, unspecified; N50.89 Other specified disorders of the male genital organs; I25.10 Atherosclerotic heart disease of native coronary artery without angina pectoris; E87.5 Hyperkalemia; I49.5 Sick sinus syndrome; I48.0 Paroxysmal atrial fibrillation; E11.22 Type 2 diabetes mellitus with diabetic chronic kidney disease; E11.42 Type 2 diabetes mellitus with diabetic polyneuropathy; E66.9 Obesity, unspecified; E78.5 Hyperlipidemia, unspecified; G89.29 Other chronic pain; K21.9 Gastro-esophageal reflux disease without esophagitis; M17.0 Bilateral primary osteoarthritis of knee; N40.0 Benign prostatic hyperplasia without lower urinary tract symptoms; Z79.4 Long term (current) use of insulin; Z88.2 Allergy status to sulfonamides; Z95.1 Presence of aortocoronary bypass graft; Z82.49 Family history of ischemic heart disease and other diseases of the circulatory system; I25.2 Old myocardial infarction; Z95.0 Presence of cardiac pacemaker; Z99.2 Dependence on renal dialysis; Z88.8 Allergy status to other drugs, medicaments and biological substances; Z79.899 Other long term (current) drug therapy
CPT/HCPCS: 36415; 36556; 36558; 36600; 71010; 76700; 76937; 77001; 80048; 80069; 81001; 82140; 82805; 82947; 83735; 83880; 84132; 84484; 85018; 85027; 85610; 86705; 86706; 86850; 86900; 86901; 86927; 87086; 87186; 87340; 87341; 93005; 94660; 96361; 96374; 96375; 96376; A4215; C1750; C1769; C1892; J0610; J0690; J0696; J0881; J1815; J1940; J2060; J2250; J2310; J3010; J3490; J7030; J7040; J7042; J7060; P9017; 97110; 97116; 97530; 97535; 99285-25

== ENCOUNTER 2017-02-15 00:37 | Inpatient (IN) | payer MEDICARE, BC ==
[~2017-02-15] VITALS: Ht 162.6 cm; Wt 94.3 kg
[2017-02-15] VITALS (7 sets, daily range): BP systolic 128–138; BP diastolic 50–73
[~2017-02-15 00:37] MED LIST changes: +DIFL5DRO2 OS; +[UNRECOGNIZED DRUG - CODE] OS
[2017-02-15] MEDS ORDERED: DEXTROSE 50% 25 GM / 50ML DISP.SYRIN. IV PRN ×2 (03:30→11:45)
[2017-02-15 07:23] LABS: BASO % 1 % (0-3); EOS % 1 % (0-3); HEMATOCRIT 24.6 % (39.0-53.0); LYMPH # 0.8 x10^3/uL (1.0-4.8); LYMPH % 18 % (24-48); MEAN CORPUSCULAR HEMOGLOBIN 33 pg (25-35); MEAN CORPUSCULAR HGB CONC 33 g/dL (31-37); MEAN CORPUSCULAR VOLUME 101 fL (79-100); MONO % 10 % (0-9); NEUT % 71 % (31-73); PLATELET COUNT 157 x10^3/uL (140-400); RED BLOOD COUNT 2.43 x10^6/uL (4.30-5.70); RED CELL DISTRIBUTION WIDTH 15.4 % (11.5-14.5); WHITE BLOOD COUNT 4.2 x10^3/uL (4.0-11.0)
[2017-02-15 07:35] LABS: ALBUMIN 3.3 g/dL (3.4-5.0); CALCIUM 8.5 mg/dL (8.5-10.1); CREATININE 2.6 mg/dL (0.7-1.3); GFR 23.8; PHOSPHORUS 3.6 mg/dL (2.6-4.7); POTASSIUM 4.9 mmol/L (3.5-5.1)
[2017-02-15] MEDS ORDERED: INSULIN ASPART 300 UNITS/3 ML INSULN.PEN SQ SCH (08:00)
--- NOTE | 2017-02-15 10:55 | PDOC2 ---
CONSULT Date of Consult Date of Consult DATE: 02/15/17 TIME: 10:52 Reason for Consult Reason for Consult: ESRD Referring Physician Referring Physician: Dr Gilmore Identification/Chief Complaint Chief Complaint "Jerkiness" Problems: Source Source: Caregiver (), Chart review History of Present Illness Reason for Visit: as dictated Past Medical History Cardiovascular: AFIB, CAD, CHF, HTN, ND, Hyperlipidemia, Other Pulmonary: Pneumonia, Other GI: GERD Heme/Onc: Anemia NOS, Cancer Renal/: Chronic renal insuff, Benign prostatic enlarg. Endocrine: Diabetes Past Surgical History Past Surgical History: Pacemaker, Tonsillectomy Family History Family History: Heart Disease Social History Quit ALCOHOL: none Drugs: None Lives: with Family Domestic Violence: Neg Current Medications Current Medications Current Medications Insulin Aspart (Novolog) 0-7 UNITS TIDWMEALS SQ Last administered on 02/15/17t 08:00; Start 02/15/17 at 08:00 Dextrose 12.5 gm PRN Q15MIN PRN IV SEE COMMENTS; Start 02/15/17 at 03:30 Active Scripts Active Lasix (Furosemide) 80 Mg Tablet 1 Tab PO DAILY Reported Irtktx-Fzcsq-Txebkrq Eye Ointm ([place]/Polymyx B Sulf/Dexameth) 3.5 Gm Oint...g. 3.5 Gm OS QHS Durezol (Difluprednate) 5 Ml Drops 1 Drop OS QID Aspir 81 (Aspirin) 81 Mg Tablet.dr 1 Tab PO DAILY Senokot (Sennosides) 8.6 Mg Tablet 3 Tab PO BID Morphine Sulfate Er (Morphine Sulfate) 60 Mg Cap.er.pel 60 Mg PO Metoprolol Tartrate 50 Mg Tablet 0.5 Tab PO DAILY Latanoprost 2.5 Ml Drops 1 Drop EACHEYE QHS Gemfibrozil 600 Mg Tablet 1 Tab PO BID Dorzolamide-Timolol Eye Drops (Dorzolamide Hcl/Timolol Maleat) 10 Ml Drops 1 Drop RIGHTEYE BID Lyrica (Pregabalin) 75 Mg Capsule 1 Cap PO BID Alprazolam 0.5 Mg Tablet 1 Tab PO TID Warfarin Sodium 4 Mg Tablet 1 Tab PO DAILY Fish Oil 1,000 Mg Capsule ([place]-3 Fatty Acids/Fish Oil) 1 Each Capsule 4 Each PO DAILY Pancrelipase 5,000 Unit Cap (Lipase/Protease/Amylase) 1 Each Capsule.dr 4 Each PO Prilosec Otc (Omeprazole Magnesium) 20 Mg Tablet. 20 Mg PO DAILY Lyrica (Pregabalin) 25 Mg Capsule 50 Mg PO TID 30 Days Gemfibrozil 600 Mg Tablet 600 Mg PO BID Spironolactone 25 Mg Tablet 25 Mg PO DAILY Calcitriol 0.25 Mcg Capsule 0.25 Mcg PO DAILY Lantus (Insulin Glargine,Hum.rec.anlog) 100 Unit/1 Ml Vial 22 Unit SQ HS Humalog (Insulin Lispro) 100 Unit/1 Ml Vial 8 Unit SQ TID Folic Acid 1 Mg Tablet 2 Mg PO TID Ferosul (Ferrous Sulfate) 325 Mg Tablet 325 Mg PO Ropinirole Hcl 1 Mg Tablet 1 Mg PO HS Tamsulosin Hcl 0.4 Mg Cap.er.24h 0.8 Mg PO DAILY Travatan Z (Travoprost) 5 Ml Drops 5 Ml OP Allergies Allergies: Coded Allergies: Epffcsl-Ncg-Lhr Reductase Inhibitor (Verified Allergy, Severe, Brain swelling. , 09/18/15) Pt was taking Gabapentin with a Statin and per . "It almost killed him." gabapentin (Verified Allergy, Severe, Brain swelling, 09/18/15) Per pt had Gabapentin with a Statin and it caused brain swelling, "almost killed him." sulfamethoxazole (Verified Allergy, Intermediate, 01/01/17) trimethoprim (Verified Allergy, Intermediate, 01/01/17) morphine (Verified Adverse Reaction, Severe, 02/15/17) ROS Review of System GEN: no Fevers no Chills EYES: no new Visual Complaints ENT: no EN Drainage no Hearing deficiets CVS: no Orthopnea no CP RESP: no SOB no HANSEN GI: no Nausea no Vomiting : no Dysuria no Urgency Good in place HEME: no easy bruising no Palp Ly Nodes NEURO no Focal Weakness Possible Sz Tremors PSYCH: no Suicidal Ideation no Depression SKIN: no Rashes ENDO: no Polyuria or Polydipsia no Hot/Cold Intolerance MU SK: ch Arthraigia no Myalgia Physical Exam Physical Exam General Appearance: Awake Alert Oriented x 3 In no Distress Eyes: VIsion Unchanged Conjunctiva Normal EN: No EN Drainage Mucous Memb. moist Neck: no JVD min JVP Supple no Thyromegaly CVS: S1 S2 soft Murmur No Gallop No Rub + Brawny Edema mostly Knee and thigh area Resp: no Rales no Rhonchi no Acc. Muscle use GI: BAS +ve NO Bruit Non Tender Non Distended; obese : no CVA tenderness; no Suprapubic Tenderness SKIN: no Rashes Breast Exam deferred Mu.Sk: Adequate ROM no Muscle Atrophy Heme: Unable to palpate Obvious LAD no palp Splenomegaly NEURO: Good Strength and Tone Cranial Nerves II - XII grossly intact Psych: not Depressed no Active hallucination Vital Signs Vital Signs Date Time Temp Pulse Resp B/P Pulse Ox O2 Delivery O2 Flow Rate FiO2 02/15/17 08:00 97.7 69 128/73 100 Room Air 97.7 02/15/17 07:00 18 Assessment & Plan ESRD: Dialysis as below F 180 NR 3.5 Hrs 3 K 2.5 Ca 140 Na 40 HC03 Qb 350 + Qd 500+ Heparin 0 Units Uf 2 Kgs or to dry weight as tolerated May give 25-50 gms of 25% Albumin if needed to maintain Hemodynamic stability Treatment plan reviewed and discussed with brief writer Anemia: Epogen as ordered. Transfuse with next HD as needed. HTN: Current BP meds reviewed. See orders for changes. Bone & Mineral: follow phos and alter binder regimen asneeded Urinary retention - defer to Dr Liao re Good removal Discussed Plan of Care and prognosis etc. at length with family () Labs Labs Laboratory Tests Test 02/15/17 06:54 02/15/17 08:21 White Blood Count 4.2x10^3/uL (4.0-11.0) Red Blood Count 2.43x10^6/uL (4.30-5.70) Hemoglobin 8.0g/dL (13.0-17.5) Hematocrit 24.6% (39.0-53.0) Mean Corpuscular Volume 101fL (79-100) Mean Corpuscular Hemoglobin 33pg (25-35) Mean Corpuscular Hemoglobin Concent 33g/dL (31-37) Red Cell Distribution Width 15.4% (11.5-14.5) Platelet Count 157x10^3/uL (140-400) Neutrophils (%) (Auto) 71% (31-73) Lymphocytes (%) (Auto) 18% (24-48) Monocytes (%) (Auto) 10% (0-9) Eosinophils (%) (Auto) 1% (0-3) Basophils (%) (Auto) 1% (0-3) Neutrophils # (Auto) 3.0x10^3uL (1.8-7.7) Lymphocytes # (Auto) 0.8x10^3/uL (1.0-4.8) Monocytes # (Auto) 0.4x10^3/uL (0.0-1.1) Eosinophils # (Auto) 0.0x10^3/uL (0.0-0.7) Basophils # (Auto) 0.0x10^3/uL (0.0-0.2) Sodium Level 134mmol/L (136-145) Potassium Level 4.9mmol/L (3.5-5.1) Chloride Level 100mmol/L (98-107) Carbon Dioxide Level 21mmol/L (21-32) Anion Gap 13 (6-14) Blood Urea Nitrogen 60mg/dL (8-26) Creatinine 2.6mg/dL (0.7-1.3) Estimated GFR (Cockcroft-Gault) 23.8 Glucose Level 167mg/dL (70-99) Calcium Level 8.5mg/dL (8.5-10.1) Phosphorus Level 3.6mg/dL (2.6-4.7) Albumin 3.3g/dL (3.4-5.0) Glucose (Fingerstick) 155mg/dL (70-99) Laboratory Tests Test 02/15/17 06:54 02/15/17 08:21 White Blood Count 4.2x10^3/uL (4.0-11.0) Red Blood Count 2.43x10^6/uL (4.30-5.70) Hemoglobin 8.0g/dL (13.0-17.5) Hematocrit 24.6% (39.0-53.0) Mean Corpuscular Volume 101fL (79-100) Mean Corpuscular Hemoglobin 33pg (25-35) Mean Corpuscular Hemoglobin Concent 33g/dL (31-37) Red Cell Distribution Width 15.4% (11.5-14.5) Platelet Count 157x10^3/uL (140-400) Neutrophils (%) (Auto) 71% (31-73) Lymphocytes (%) (Auto) 18% (24-48) Monocytes (%) (Auto) 10% (0-9) Eosinophils (%) (Auto) 1% (0-3) Basophils (%) (Auto) 1% (0-3) Neutrophils # (Auto) 3.0x10^3uL (1.8-7.7) Lymphocytes # (Auto) 0.8x10^3/uL (1.0-4.8) Monocytes # (Auto) 0.4x10^3/uL (0.0-1.1) Eosinophils # (Auto) 0.0x10^3/uL (0.0-0.7) Basophils # (Auto) 0.0x10^3/uL (0.0-0.2) Sodium Level 134mmol/L (136-145) Potassium Level 4.9mmol/L (3.5-5.1) Chloride Level 100mmol/L (98-107) Carbon Dioxide Level 21mmol/L (21-32) Anion Gap 13 (6-14) Blood Urea Nitrogen 60mg/dL (8-26) Creatinine 2.6mg/dL (0.7-1.3) Estimated GFR (Cockcroft-Gault) 23.8 Glucose Level 167mg/dL (70-99) Calcium Level 8.5mg/dL (8.5-10.1) Phosphorus Level 3.6mg/dL (2.6-4.7) Albumin 3.3g/dL (3.4-5.0) Glucose (Fingerstick) 155mg/dL (70-99) RICHIE UPTON MD Feb 15, 2017 10:55
[2017-02-15] MEDS ORDERED: ACETAMINOPHEN 325 MG TABLET. PO PRN (11:45)
[2017-02-15] MEDS ORDERED: ONDANSETRON PF 4 MG/2 ML VIAL. IV PRN (11:45)
[2017-02-15] MEDS ORDERED: MAGNESIUM SULFATE 2GM 50 ML IV PRN (11:45)
[2017-02-15] MEDS ORDERED: METO25TA4 PO (12:04)
[2017-02-15] MEDS: INSULIN ASPART 300 UNITS/3 ML INSULN.PEN SQ SCH ×3 (12:17→21:00)
[2017-02-15] MEDS ORDERED: IV NORMAL SALINE 1000ML BAG 1,000 ML IV PRN (12:50)
[2017-02-15] MEDS ORDERED: ALBUMIN HUMAN 25% 200 ML IV PRN (13:00)
[2017-02-15] MEDS ORDERED: ACETAMINOPHEN 500 MG TABLET PO PRN (13:00)
[2017-02-15] MEDS: NON FORMULARY ITEM (Difluprednate (Durezol) 1 DROP) OS SCH ×2 (13:00→21:00)
[2017-02-15] MEDS ORDERED: DIALYSIS PATIENT. MC PRN (13:00)
[2017-02-15] MEDS ORDERED: DIPHENHYDRAMINE 50 MG/ML VIAL IV PRN ×2 (13:00)
--- NOTE | 2017-02-15 13:29 | PDOC1 ---
History and Physical Date of Admission Date of Admission 02/15/17 Identification/Chief Complaint Chief Complaint anemia, seizure at home with low glucose Problems: Source Source: Chart review, Patient History of Present Illness History of Present Illness 81yo M, was sent from [facility] for seizure, and anemia. there is no documents for H AND P from [facility]. as per ERP in [facility], was was found seizure, hard to breath at home last night, EMS was called, was found hypoglycemia <50, better with d50 in ER, saying he had a dinner last night, on insulin for dm2, no po meds for DM. He was also found Hb about 7. He was recently dced here with new set up HD for ESRD , as per pt, he missed his Tuesday HD. family require to transfer to [place]. pT has very bad hearing, cannot tell me what exactly happened, just said he woke up with EMS there and his said he had sob. He feels good now. Hb 8.0 here wo intervention, actually is his baseline. Glucose is also stable. Pt denies chest pain, sob , N/V. has ASH for 2 weeks, wanted to remove. Past Medical History Cardiovascular: AFIB, CAD, CHF, HTN, NV, Hyperlipidemia, Other Pulmonary: Pneumonia, Other GI: GERD Heme/Onc: Anemia NOS, Cancer Renal/: Chronic renal insuff, Benign prostatic enlarg. Endocrine: Diabetes Past Surgical History Past Surgical History: Pacemaker, Tonsillectomy Family History Family History: Heart Disease Social History Smoke: No ALCOHOL: none Drugs: None Current Medications Current Medications Current Medications Medications (Trade) Dose Ordered Sig/Tracy Start Time Stop Time Status Last Admin Dose Admin Acetaminophen (Tylenol) 500 mg 1X PRN PRN 02/15/17 13:00 02/16/17 12:59 UNV Albumin Human (Albuminar) 200 ml @ 200 mls/hr 1X PRN PRN 02/15/17 13:00 02/15/17 18:59 UNV Alprazolam (Xanax) 0.25 mg TID 02/15/17 14:00 Amylase/Lipase/ Protease (Zenpep 5,000) 4 cap TID 02/15/17 14:00 Aspirin (Ecotrin) 81 mg DAILY 02/15/17 12:00 Calcitriol (Rocaltrol) 0.25 mcg DAILY 02/15/17 12:00 Darbepoetin Joshua 60 mcg 60 mcg WEEKLYHS 02/15/17 21:00 Dextrose 12.5 gm PRN Q15MIN PRN 02/15/17 11:45 Diphenhydramine HCl (Benadryl) 25 mg 1X PRN PRN 02/15/17 13:00 02/16/17 12:59 UNV Dorzolamide/ Timolol (Cosopt) 1 drop BID 02/15/17 12:00 Ferrous Sulfate (Feosol) 325 mg DAILY 02/15/17 12:00 Fish Oil (Fish Oil) 1,000 mg DAILY 02/15/17 12:00 Folic Acid (Folic Acid) 2 mg TID 02/15/17 14:00 Furosemide (Lasix) 80 mg DAILY 02/15/17 12:00 Gemfibrozil (Lopid) 600 mg BID 02/15/17 12:00 Info (PHARMACY MONITORING -- do not chart) 1 each PRN DAILY PRN 02/15/17 13:00 UNV Insulin Aspart (Novolog) 0-9 UNITS QIDACHS 02/15/17 16:30 Insulin Detemir (Levemir) 15 units QHS 02/15/17 21:00 Latanoprost (Xalatan) 1 drop QHS 02/15/17 21:00 Magnesium Sulfate/ Dextrose (Magnesium Sulfate PREMIX 2GM) 50 ml @ 25 mls/hr PRN DAILY PRN 02/15/17 11:45 Metoprolol Tartrate (Lopressor) 25 mg DAILY 02/16/17 09:00 UNV Neomycin/ Polymyxin/ Dexamethasone (Maxitrol) 3.5 inch QHS 02/15/17 21:00 Non-Formulary Medication 1 drop QID 02/15/17 13:00 UNV Ondansetron HCl 4 mg 4 mg PRN Q6HRS PRN 02/15/17 11:45 Pantoprazole Sodium (Protonix) 40 mg DAILYAC 02/15/17 12:00 Pregabalin (Lyrica) 75 mg BID 02/15/17 12:00 Ropinirole HCl (Requip) 1 mg HS 02/15/17 21:00 Sodium Chloride 1,000 ml @ 1,000 mls/hr Q1H PRN 02/15/17 12:50 02/15/17 18:49 UNV Spironolactone (Aldactone) 25 mg DAILY 02/15/17 12:00 Tamsulosin HCl (Flomax) 0.8 mg DAILY 02/15/17 12:00 Warfarin Sodium (Coumadin Per Pharmacy) 1 each PRN DAILY PRN 02/15/17 11:45 Warfarin Sodium (Coumadin) 4 mg DAILY 02/16/17 09:00 UNV Allergies Allergies Allergies Coded Allergies Type Severity Reaction Last Updated Verified Dtnbhoc-Cfk-Caa Reductase Inhibitor Allergy Severe Brain swelling. 09/18/15 Yes gabapentin Allergy Severe Brain swelling 09/18/15 Yes sulfamethoxazole Allergy Intermediate 01/01/17 Yes trimethoprim Allergy Intermediate 01/01/17 Yes morphine Adverse Reaction Severe 02/15/17 Yes ROS Review of System CONSTITUTIONAL: No fever or chills EYES: No recent changes SKIN: No rash or itching CARDIOVASCULAR: No chest pain, syncope, palpitations, or edema RESPIRATORY: No SOB or cough GASTROINTESTINAL: No nausea, vomiting or abdominal pain NEUROLOGICAL: No headaches or weakness ENDOCRINE: No cold or heat intolerance GENITOURINARY: No urgency or frequency of urination MUSCULOSKELETAL: No back pain or joint pain LYMPHATICS: No enlarged lymph nodes PSYCHIATRIC: No anxiety or depression Physical Exam Physical Exam GEN.: No apparent distress. Alert and oriented. HEENT: Head is normocephalic, atraumatic NECK: Supple. LUNGS: Clear to auscultation. HEART: RRR, S1, S2 present. Peripheral pulses intact ABDOMEN: Soft, nontender. Positive bowel sounds. EXTREMITIES: Without any cyanosis. NEUROLOGIC: Normal speech, normal tone PSYCHIATRIC: Normal affect, normal mood. SKIN: No ulcerations Vitals Vitals Vital Signs Date Time Temp Pulse Resp B/P Pulse Ox O2 Delivery O2 Flow Rate FiO2 02/15/17 11:00 97.8 69 18 135/54 100 Room Air 97.8 Labs Labs Laboratory Tests Test 02/15/17 06:54 02/15/17 08:21 02/15/17 11:56 White Blood Count 4.2x10^3/uL (4.0-11.0) Red Blood Count 2.43x10^6/uL (4.30-5.70) Hemoglobin 8.0g/dL (13.0-17.5) Hematocrit 24.6% (39.0-53.0) Mean Corpuscular Volume 101fL (79-100) Mean Corpuscular Hemoglobin 33pg (25-35) Mean Corpuscular Hemoglobin Concent 33g/dL (31-37) Red Cell Distribution Width 15.4% (11.5-14.5) Platelet Count 157x10^3/uL (140-400) Neutrophils (%) (Auto) 71% (31-73) Lymphocytes (%) (Auto) 18% (24-48) Monocytes (%) (Auto) 10% (0-9) Eosinophils (%) (Auto) 1% (0-3) Basophils (%) (Auto) 1% (0-3) Neutrophils # (Auto) 3.0x10^3uL (1.8-7.7) Lymphocytes # (Auto) 0.8x10^3/uL (1.0-4.8) Monocytes # (Auto) 0.4x10^3/uL (0.0-1.1) Eosinophils # (Auto) 0.0x10^3/uL (0.0-0.7) Basophils # (Auto) 0.0x10^3/uL (0.0-0.2) Sodium Level 134mmol/L (136-145) Potassium Level 4.9mmol/L (3.5-5.1) Chloride Level 100mmol/L (98-107) Carbon Dioxide Level 21mmol/L (21-32) Anion Gap 13 (6-14) Blood Urea Nitrogen 60mg/dL (8-26) Creatinine 2.6mg/dL (0.7-1.3) Estimated GFR (Cockcroft-Gault) 23.8 Glucose Level 167mg/dL (70-99) Calcium Level 8.5mg/dL (8.5-10.1) Phosphorus Level 3.6mg/dL (2.6-4.7) Albumin 3.3g/dL (3.4-5.0) Glucose (Fingerstick) 155mg/dL (70-99) 304mg/dL (70-99) Laboratory Tests Test 02/15/17 06:54 02/15/17 08:21 02/15/17 11:56 White Blood Count 4.2x10^3/uL (4.0-11.0) Red Blood Count 2.43x10^6/uL (4.30-5.70) Hemoglobin 8.0g/dL (13.0-17.5) Hematocrit 24.6% (39.0-53.0) Mean Corpuscular Volume 101fL (79-100) Mean Corpuscular Hemoglobin 33pg (25-35) Mean Corpuscular Hemoglobin Concent 33g/dL (31-37) Red Cell Distribution Width 15.4% (11.5-14.5) Platelet Count 157x10^3/uL (140-400) Neutrophils (%) (Auto) 71% (31-73) Lymphocytes (%) (Auto) 18% (24-48) Monocytes (%) (Auto) 10% (0-9) Eosinophils (%) (Auto) 1% (0-3) Basophils (%) (Auto) 1% (0-3) Neutrophils # (Auto) 3.0x10^3uL (1.8-7.7) Lymphocytes # (Auto) 0.8x10^3/uL (1.0-4.8) Monocytes # (Auto) 0.4x10^3/uL (0.0-1.1) Eosinophils # (Auto) 0.0x10^3/uL (0.0-0.7) Basophils # (Auto) 0.0x10^3/uL (0.0-0.2) Sodium Level 134mmol/L (136-145) Potassium Level 4.9mmol/L (3.5-5.1) Chloride Level 100mmol/L (98-107) Carbon Dioxide Level 21mmol/L (21-32) Anion Gap 13 (6-14) Blood Urea Nitrogen 60mg/dL (8-26) Creatinine 2.6mg/dL (0.7-1.3) Estimated GFR (Cockcroft-Gault) 23.8 Glucose Level 167mg/dL (70-99) Calcium Level 8.5mg/dL (8.5-10.1) Phosphorus Level 3.6mg/dL (2.6-4.7) Albumin 3.3g/dL (3.4-5.0) Glucose (Fingerstick) 155mg/dL (70-99) 304mg/dL (70-99) VTE Prophylaxis Ordered VTE Prophylaxis Devices: Yes VTE Pharmacological Prophylaxi: No Assessment/Plan Assessment/Plan 1. seizure, 2/2 hypoglycemia likely 2 . dm with hypoglycemia on insuline 3. chronic anemia , 2/2 chronic dz with cad, esrd 4. chronic CHF, diastolic, stable 5. h/o cad POST CABG 6. sss with ppm 7. [PAFIB ON COUmadin 8. recent set up HD with right upper chest HD CATH 9. BPH, with ash now plan: 1. neuro, renal, uro consult 2. need to rezume HD 3. consider remove ash?, defer to uro 4. cont home meds slightly decrease insulin to levemir 15 qhs , aspart 5u tid, SSI 5. CONT warfarin INR DAILY 6. PTOT 7. Epogene as per renal JAMES QUAN MD Feb 15, 2017 13:29
--- NOTE | 2017-02-15 13:33 | PDOC ---
Provider Note Provider Note Urology: Consult dictated Plan: remove ash in AM for voiding trial continue Flomax 0.8 mg daily MYRIAM VERA DO Feb 15, 2017 13:33
--- NOTE | 2017-02-15 14:34 | PDOC2 ---
NEUROLOGY CONSULT Date of Admission Date of Admission DATE: 02/15/17 TIME: 14:24 Reason for Consult Reason for Consult: Seizure Referring Physician Referring Physician: Dr. Gilmore PCP: Dr. Beard Source Source: Chart review, Patient History of Present Illness History of Present Illness The patient is an 81-year-old right-handed male who had a seizure yesterday. His sugars were in the 30s, his hemoglobin was 7, and he has just started renal dialysis. There is no prior history of stroke, seizure, or head injury. His witnessed a generalized convulsive seizure. He was taken to [facility]. We do not have details of the admission there. Past Medical History Cardiovascular: AFIB, CAD, CHF, HTN, SD, Hyperlipidemia Pulmonary: Pneumonia, Other ( sleep apnea) GI: GERD, Peptic Ulcer disease Heme/Onc: Anemia NOS Musculoskeletal: Osteoarthritis ENT: Other (Glaucoma, hearing loss) Renal/: Chronic renal failure, Benign prostatic enlarg., Urinary Incontinence Endocrine: Diabetes Dermatology: Cellulitis Past Surgical History Past Surgical History: Pacemaker, CABG, Cataract Removal, Tonsillectomy, Other ( coronary stents, skin cancer removal) Family History Family History: No pertinent hx ( negative for seizures) Social History Social History , non-smoker, nondrinker Current Medications Current Medications Current Medications Insulin Aspart (Novolog) 0-7 UNITS TIDWMEALS SQ Last administered on 02/15/17t 08:00; Start 02/15/17 at 08:00; Stop 02/15/17 at 11:35; Status DC Dextrose 12.5 gm PRN Q15MIN PRN IV SEE COMMENTS; Start 02/15/17 at 03:30 Alprazolam (Xanax) 0.25 mg TID PO ; Start 02/15/17 at 14:00 Aspirin (Ecotrin) 81 mg DAILY PO ; Start 02/15/17 at 12:00 Calcitriol (Rocaltrol) 0.25 mcg DAILY PO ; Start 02/15/17 at 12:00 Dorzolamide/ Timolol (Cosopt) 1 drop BID OU ; Start 02/15/17 at 12:00 Ferrous Sulfate (Feosol) 325 mg DAILY PO ; Start 02/15/17 at 12:00 Folic Acid (Folic Acid) 2 mg TID PO ; Start 02/15/17 at 14:00 Furosemide (Lasix) 80 mg DAILY PO ; Start 02/15/17 at 12:00 Gemfibrozil (Lopid) 600 mg BID PO ; Start 02/15/17 at 12:00 Latanoprost (Xalatan) 1 drop QHS OU ; Start 02/15/17 at 21:00 Amylase/Lipase/ Protease (Zenpep 5,000) 4 cap TID PO ; Start 02/15/17 at 14:00 Metoprolol Tartrate (Lopressor) 25 mg DAILY PO ; Start 02/16/17 at 09:00; Status UNV Neomycin/ Polymyxin/ Dexamethasone (Maxitrol) 3.5 inch QHS OS ; Start 02/15/17 at 21:00 Fish Oil (Fish Oil) 1,000 mg DAILY PO ; Start 02/15/17 at 12:00 Pregabalin (Lyrica) 75 mg BID PO ; Start 02/15/17 at 12:00 Ropinirole HCl (Requip) 1 mg HS PO ; Start 02/15/17 at 21:00 Spironolactone (Aldactone) 25 mg DAILY PO ; Start 02/15/17 at 12:00 Tamsulosin HCl (Flomax) 0.8 mg DAILY PO ; Start 02/15/17 at 12:00 Warfarin Sodium (Coumadin) 4 mg DAILY PO ; Start 02/16/17 at 09:00; Status UNV Non-Formulary Medication 1 drop QID OS ; Start 02/15/17 at 13:00; Status UNV Pantoprazole Sodium (Protonix) 40 mg DAILYAC PO ; Start 02/15/17 at 12:00 Insulin Detemir (Levemir) 15 units QHS SQ ; Start 02/15/17 at 21:00 Insulin Aspart (Novolog) 5 units TIDAC SQ Last administered on 02/15/17t 12:17 ; Start 02/15/17 at 16:30 Insulin Aspart (Novolog) 0-9 UNITS QIDACHS SQ ; Start 02/15/17 at 16:30 Dextrose 12.5 gm PRN Q15MIN PRN IV SEE COMMENTS; Start 02/15/17 at 11:45 Warfarin Sodium (Coumadin Per Pharmacy) 1 each PRN DAILY PRN MC SEE COMMENTS; Start 02/15/17 at 11:45 Acetaminophen (Tylenol) 650 mg PRN Q6HRS PRN PO MILD PAIN / TEMP; Start at 11:45 Ondansetron HCl 4 mg 4 mg PRN Q6HRS PRN IV NAUSEA/VOMITING; Start 02/15/17 at 11:45 Magnesium Sulfate/ Dextrose (Magnesium Sulfate PREMIX 2GM) 50 ml @ 25 mls/hr PRN DAILY PRN IV for Mag < 1.7 on am labs; Start 02/15/17 at 11:45 Darbepoetin Joshua 60 mcg 60 mcg WEEKLYHS SQ ; Start 02/15/17 at 21:00 Sodium Chloride 1,000 ml @ 1,000 mls/hr Q1H PRN IV hypotension; Start 02/15/17 at 12:50; Stop 02/15/17 at 18:49 Albumin Human (Albuminar) 200 ml @ 200 mls/hr 1X PRN PRN IV Hypotension; Start 02/15/17 at 13:00; Stop 02/15/17 at 18:59 Acetaminophen (Tylenol) 500 mg 1X PRN PRN PO MILD PAIN / TEMP; Start 02/15/17 at 13:00; Stop 02/16/17 at 12:59 Diphenhydramine HCl (Benadryl) 25 mg 1X PRN PRN IV ITCHING; Start 02/15/17 at 13:00; Stop 02/16/17 at 12:59 Diphenhydramine HCl (Benadryl) 25 mg 1X PRN PRN IV ITCHING; Start 02/15/17 at 13:00; Stop 02/16/17 at 12:59 Info (PHARMACY MONITORING -- do not chart) 1 each PRN DAILY PRN MC SEE COMMENTS ; Start 02/15/17 at 13:00 Active Scripts Active Lasix (Furosemide) 80 Mg Tablet 1 Tab PO DAILY Reported Metoprolol Tartrate 25 Mg Tablet 1 Tab PO BID Brcopi-Rsyex-Evlkwcr Eye Ointm (Chapito/Polymyx B Sulf/Dexameth) 3.5 Gm Oint...g. 3.5 Gm OS QHS Durezol (Difluprednate) 5 Ml Drops 1 Drop OS QID Aspir 81 (Aspirin) 81 Mg Tablet. 1 Tab PO DAILY Senokot (Sennosides) 8.6 Mg Tablet 3 Tab PO BID Morphine Sulfate Er (Morphine Sulfate) 60 Mg Cap.er.pel 60 Mg PO Latanoprost 2.5 Ml Drops 1 Drop EACHEYE QHS Gemfibrozil 600 Mg Tablet 1 Tab PO BID Dorzolamide-Timolol Eye Drops (Dorzolamide Hcl/Timolol Maleat) 10 Ml Drops 1 Drop RIGHTEYE BID Lyrica (Pregabalin) 75 Mg Capsule 1 Cap PO BID Alprazolam 0.5 Mg Tablet 1 Tab PO TID Warfarin Sodium 4 Mg Tablet 1 Tab PO DAILY Fish Oil 1,000 Mg Capsule (Rosebud-3 Fatty Acids/Fish Oil) 1 Each Capsule 4 Each PO DAILY Pancrelipase Dr 5,000 Unit Cap (Lipase/Protease/Amylase) 1 Each Capsule.dr 4 Each PO Prilosec Otc (Omeprazole Magnesium) 20 Mg Tablet.dr 20 Mg PO DAILY Lyrica (Pregabalin) 25 Mg Capsule 50 Mg PO TID 30 Days Gemfibrozil 600 Mg Tablet 600 Mg PO BID Spironolactone 25 Mg Tablet 25 Mg PO DAILY Calcitriol 0.25 Mcg Capsule 0.25 Mcg PO DAILY Lantus (Insulin Glargine,Hum.rec.anlog) 100 Unit/1 Ml Vial 22 Unit SQ HS Humalog (Insulin Lispro) 100 Unit/1 Ml Vial 8 Unit SQ TID Folic Acid 1 Mg Tablet 2 Mg PO TID Ferosul (Ferrous Sulfate) 325 Mg Tablet 325 Mg PO Ropinirole Hcl 1 Mg Tablet 1 Mg PO HS Tamsulosin Hcl 0.4 Mg Cap.er.24h 0.8 Mg PO DAILY Travatan Z (Travoprost) 5 Ml Drops 5 Ml OP Allergies Allergies: Coded Allergies: Znbncin-Mks-Dah Reductase Inhibitor (Verified Allergy, Severe, Brain swelling. , 09/18/15) Pt was taking Gabapentin with a Statin and per . "It almost killed him." gabapentin (Verified Allergy, Severe, Brain swelling, 09/18/15) Per pt had Gabapentin with a Statin and it caused brain swelling, "almost killed him." sulfamethoxazole (Verified Allergy, Intermediate, 01/01/17) trimethoprim (Verified Allergy, Intermediate, 01/01/17) morphine (Verified Adverse Reaction, Severe, 02/15/17) ROS Review of System Negative for fevers, chills, weight loss, shortness of breath, chest pain, indigestion, hematochezia, melena, dysuria. Full 14-point review systems is negative. Physical Exam Physical Examination PHYSICAL EXAMINATION: Vital signs: see above. General appearance is normal and in no acute distress. HEENT: Normocephalic, Small ecchymosis below the left eye following his recent eye surgery. Eyes, nose, ears, and throat are unremarkable. Neck is supple. No lymphadenopathy. No bruits are heard over the carotid artery. No crepitus. extremities: lower legs both wrapped in bandages NEUROLOGICAL EXAMINATION: Mental Status Examination: Alert. Oriented to time, place, and person. Answers questions and follows commends. Pupils are equal round and reactive to light and accommodation. Extraocular movements are intact. Visual field exam shows no defect on the direct confrontation. No motor or sensory deficits on the facial exam. Uvula in the midline and the soft palate elevated symmetrically. No deviation of the tongue to any direction. Gross hearing is normal. Shoulder shrug normal. Muscle tone is normal. Muscle strength is 5. Deep tendon reflexes are 0-1+ all around. Plantar reflex is with flexion response bilaterally. Noolol-zz-vgzb test performance is accurate. Alternative movements are accurate. Gait not tested, patient in dialysis. Sensory exam shows no deficits. No cerebellar signs are elicited. Vitals VITALS Vital Signs Date Time Temp Pulse Resp B/P Pulse Ox O2 Delivery O2 Flow Rate FiO2 02/15/17 11:00 97.8 69 18 135/54 100 Room Air 97.8 Labs Labs Laboratory Tests Test 02/15/17 06:54 02/15/17 08:21 02/15/17 11:56 White Blood Count 4.2x10^3/uL (4.0-11.0) Red Blood Count 2.43x10^6/uL (4.30-5.70) Hemoglobin 8.0g/dL (13.0-17.5) Hematocrit 24.6% (39.0-53.0) Mean Corpuscular Volume 101fL (79-100) Mean Corpuscular Hemoglobin 33pg (25-35) Mean Corpuscular Hemoglobin Concent 33g/dL (31-37) Red Cell Distribution Width 15.4% (11.5-14.5) Platelet Count 157x10^3/uL (140-400) Neutrophils (%) (Auto) 71% (31-73) Lymphocytes (%) (Auto) 18% (24-48) Monocytes (%) (Auto) 10% (0-9) Eosinophils (%) (Auto) 1% (0-3) Basophils (%) (Auto) 1% (0-3) Neutrophils # (Auto) 3.0x10^3uL (1.8-7.7) Lymphocytes # (Auto) 0.8x10^3/uL (1.0-4.8) Monocytes # (Auto) 0.4x10^3/uL (0.0-1.1) Eosinophils # (Auto) 0.0x10^3/uL (0.0-0.7) Basophils # (Auto) 0.0x10^3/uL (0.0-0.2) Sodium Level 134mmol/L (136-145) Potassium Level 4.9mmol/L (3.5-5.1) Chloride Level 100mmol/L (98-107) Carbon Dioxide Level 21mmol/L (21-32) Anion Gap 13 (6-14) Blood Urea Nitrogen 60mg/dL (8-26) Creatinine 2.6mg/dL (0.7-1.3) Estimated GFR (Cockcroft-Gault) 23.8 Glucose Level 167mg/dL (70-99) Calcium Level 8.5mg/dL (8.5-10.1) Phosphorus Level 3.6mg/dL (2.6-4.7) Albumin 3.3g/dL (3.4-5.0) Glucose (Fingerstick) 155mg/dL (70-99) 304mg/dL (70-99) Laboratory Tests Test 02/15/17 06:54 02/15/17 08:21 02/15/17 11:56 White Blood Count 4.2x10^3/uL (4.0-11.0) Red Blood Count 2.43x10^6/uL (4.30-5.70) Hemoglobin 8.0g/dL (13.0-17.5) Hematocrit 24.6% (39.0-53.0) Mean Corpuscular Volume 101fL (79-100) Mean Corpuscular Hemoglobin 33pg (25-35) Mean Corpuscular Hemoglobin Concent 33g/dL (31-37) Red Cell Distribution Width 15.4% (11.5-14.5) Platelet Count 157x10^3/uL (140-400) Neutrophils (%) (Auto) 71% (31-73) Lymphocytes (%) (Auto) 18% (24-48) Monocytes (%) (Auto) 10% (0-9) Eosinophils (%) (Auto) 1% (0-3) Basophils (%) (Auto) 1% (0-3) Neutrophils # (Auto) 3.0x10^3uL (1.8-7.7) Lymphocytes # (Auto) 0.8x10^3/uL (1.0-4.8) Monocytes # (Auto) 0.4x10^3/uL (0.0-1.1) Eosinophils # (Auto) 0.0x10^3/uL (0.0-0.7) Basophils # (Auto) 0.0x10^3/uL (0.0-0.2) Sodium Level 134mmol/L (136-145) Potassium Level 4.9mmol/L (3.5-5.1) Chloride Level 100mmol/L (98-107) Carbon Dioxide Level 21mmol/L (21-32) Anion Gap 13 (6-14) Blood Urea Nitrogen 60mg/dL (8-26) Creatinine 2.6mg/dL (0.7-1.3) Estimated GFR (Cockcroft-Gault) 23.8 Glucose Level 167mg/dL (70-99) Calcium Level 8.5mg/dL (8.5-10.1) Phosphorus Level 3.6mg/dL (2.6-4.7) Albumin 3.3g/dL (3.4-5.0) Glucose (Fingerstick) 155mg/dL (70-99) 304mg/dL (70-99) Assessment/Plan Assessment/Plan Impression: New seizures secondary to hypoglycemia, anemia, and new dialysis. Certainly he has these 3 provocative factors to explain the seizure. Recommendations: I will ask the nurse to find the CT report from [facility] He cannot have an MRI because of the pacemaker EEG would not affect management as note that he is already on an anticonvulsant , Lyrica, and even if he weren't, I would not start one for this first provoked seizure. Therefore, no additional neurological studies are required. I discussed my findings with the patient and his family. Thank you for letting me help the patient care. CARISSA RIVERA MD Feb 15, 2017 14:34
[2017-02-15 15:09] LABS: INR 1.6 (0.8-1.1)
[2017-02-15] MEDS ORDERED: WARFARIN 4 MG TABLET. PO SCH (16:00)
[2017-02-15] MEDS: GEMFIBROZIL 600 MG TABLET. PO SCH ×2 (17:51→20:41)
[2017-02-15] MEDS: CALCITRIOL 0.25 MCG CAPSULE PO SCH (17:52)
[2017-02-15] MEDS: FUROSEMIDE 80 MG TABLET PO SCH (17:52)
[2017-02-15] MEDS: OMEGA-3 FATTY ACIDS/FISH OIL 1,000 MG CAPSULE. PO SCH (17:52)
[2017-02-15] MEDS: FERROUS SULFATE 325 MG TABLET PO SCH (17:53)
[2017-02-15] MEDS: FOLIC ACID 1 MG TABLET PO SCH ×2 (17:53→20:41)
[2017-02-15] MEDS: SPIRONOLACTONE 25 MG TABLET PO SCH (17:53)
[2017-02-15] MEDS: LIPASE/PROTEAS/AMYLASE 5/17/27 CAPSULE.DR. PO SCH ×2 (17:54→20:41)
[2017-02-15] MEDS: TAMSULOSIN 0.4 MG CAP.ER.24H. PO SCH (17:55)
[2017-02-15] MEDS: ALPRAZOLAM 0.5 MG TABLET PO SCH ×2 (17:55→20:42)
[2017-02-15] MEDS: PANTOPRAZOLE 40 MG TABLET. PO SCH (17:56)
[2017-02-15] MEDS: ASPIRIN ENTERIC COATED 81 MG TABLET.DR. PO SCH (17:56)
[2017-02-15] MEDS: PREGABALIN 75 MG CAPSULE PO SCH ×2 (17:57→20:41)
[2017-02-15] MEDS: DORZOLAMIDE/TIMOLOL 2%/0.5% OPHTH SOLUTION 10ML BOTTLE. OU SCH ×2 (17:58→20:38)
[2017-02-15] MEDS ORDERED: OXYCODONE/APAP 5/325 TABLET. PO PRN (19:45)
[2017-02-15] MEDS ORDERED: LIDOCAINE (700MG/PATCH) PATCH. TD SCH (21:00)
[2017-02-15] MEDS ORDERED: NEO/POLYMYX/DEXAMETH OPHTH SUSPENSION 5ML BOTTLE. OS SCH (21:00)
[2017-02-15] MEDS ORDERED: INSULIN DETEMIR 300 UNITS/3 ML INSULN.PEN. SQ SCH (21:00)
[2017-02-15] MEDS ORDERED: LATANOPROST 0.005% OPHTH SOLUTION 2.5ML BOTTLE. OU SCH (21:00)
[2017-02-15] MEDS ORDERED: DARBEPOETIN ALFA 60 MCG/0.3 ML DISP.SYRIN. SQ SCH (21:00)
[2017-02-15] MEDS ORDERED: NEO/POLYMYX/DEXAMETH OPHTH OINTMENT 3.5GM TUBE. OS SCH ×2 (21:00)
[2017-02-15] MEDS ORDERED: rOPINIRole 1 MG TABLET. PO SCH (21:00)
[2017-02-15] MEDS: NEO/POLYMYX/DEXAMETH OPHTH SUSPENSION 5ML BOTTLE. OS SCH (21:14)
[2017-02-15] MEDS ORDERED: INSULIN ASPART 300 UNITS/3 ML INSULN.PEN SQ ONE (21:30)
--- NOTE | 2017-02-15 23:55 | CONS ---
DATE OF CONSULTATION: PRIMARY PHYSICIAN: REASON FOR CONSULTATION: ESRD dialysis. HISTORY OF PRESENT ILLNESS: The patient is an 81-year-old gentleman who lives with his . He had presented here about 2 weeks ago with hyperkalemia and acute renal failure, whereby his creatinine was in the 5s and 6. He was initiated on dialysis emergently due to hyperkalemia. He continued to have some amount of altered mental status. It was unclear if his altered mental status was due to uremia or due to opioid use. He, however, has recovered from that pretty well and is feeling great on dialysis. His fluid status especially his edema and abdominal bloating has improved significantly too with ultrafiltration on dialysis. He is not sure how much weight he has lost. His claims his appetite is better. He is more awake and more focused mentally also currently. He does have a Good and does make amounts of urine. He was sent home with an indwelling Good catheter and was scheduled to see Dr. Liao. In this setting, he developed some jerky movements as well as seizure-like activity. He was taken to [facility] where he was found to be hypoglycemic and then transferred to [facility] after initial temporizing measures. He is now here for further evaluation and for dialysis. Today is his dialysis day and he and his both wished to proceed with the same hence dialysis will be set up for the patient. For rest of details, see electronic records. RICHIE UPTON MD DR: JAMIE/elpidio JOB#: [id number] / [id number]
--- NOTE | 2017-02-16 | CONS ---
DATE OF CONSULTATION: 02/15/2017 CHIEF COMPLAINT: Urinary retention. HISTORY OF PRESENT ILLNESS: This 81-year-old obese male with multiple medical problems. I last saw him in consultation on 02/02/2017. Since ____ time of his discharge, but then he was readmitted to the hospital on 02/15/2017. Evidently, the patient was experiencing some "jerkiness." The patient has a history of end-stage renal disease. He is a dialysis patient. PAST MEDICAL HISTORY: Significant for end-stage renal disease, obesity, type 2 diabetes, coronary artery disease, hypertension. PAST SURGICAL HISTORY: He has had previous coronary artery bypass surgery, left shoulder surgery, fusion of C6 and C7 of the cervical spine. Has a pain stimulator and also a pacemaker. ALLERGIES: THE PATIENT HAS MULTIPLE ALLERGIES LISTED IN THE CHART, WHICH INCLUDES BACTRIM, TRIMETHOPRIM AND STATIN MEDICATIONS. PAST MEDICAL HISTORY: As above. PHYSICAL EXAMINATION: GENERAL DESCRIPTION: An 81-year-old obese male. He is currently undergoing hemodialysis. The patient appears to be alert and oriented. He denies any acute pain or discomfort. ABDOMEN: Obese, negative for flank pain to palpation bilaterally. No palpable abdominal masses. No suprapubic tenderness. GENITALIA: The patient has indwelling Good catheter draining alan colored urine. RECTAL: Not performed. EXTREMITIES: Negative for cyanosis. NEUROLOGIC: Cranial nerves 2-12 grossly intact. LABORATORY DATA: The patient's hemoglobin is 8.0, hematocrit 24.6, white blood cell count 4.2. The patient's electrolytes, sodium 134. BUN is ____, creatinine 2.6. Urinalysis, none on the chart. X-RAY STUDIES: The patient has had no x-rays on this admission. The patient has had a Good catheter since his last admission. When it was placed on his last admission, they obtained 250 mL of urine. The patient states that he had no prior history of difficulty urinating prior to his last hospital visit. He has had no previous prostate surgery. The patient is currently on Flomax 2 tablets daily. IMPRESSION: 1. History of chronic urinary retention. 2. Obesity. 3. End-stage renal disease. PLAN: 1. We will suggest Good catheter be removed during this hospitalization. We will follow his postvoid urine volumes with bladder scans and see how he does. 2. Continue Flomax 2 tablets daily. MYRIAM VERA DO DR: Misty JOB#: [id number] / [id number]
[2017-02-16] MEDS: NEO/POLYMYX/DEXAMETH OPHTH SUSPENSION 5ML BOTTLE. OS SCH ×4 (01:00→13:32)
[2017-02-16 04:58] LABS: CALCIUM 8.3 mg/dL (8.5-10.1); CREATININE 1.9 mg/dL (0.7-1.3); GFR 34.2; PHOSPHORUS 2.7 mg/dL (2.6-4.7); POTASSIUM 4.5 mmol/L (3.5-5.1)
[2017-02-16 05:14] LABS: INR 1.6 (0.8-1.1); PROTHROMBIN TIME PATIENT 18.5 SEC (11.7-14.0)
[2017-02-16 07:00] VITALS: BP 110/47
[2017-02-16] MEDS: INSULIN ASPART 300 UNITS/3 ML INSULN.PEN SQ SCH ×4 (07:30→11:45)
--- NOTE | 2017-02-16 07:44 | RAD ---
CT of the head without contrast, 02/16/2017: History: Seizure. There is moderate cerebral atrophy. The ventricles are within normal limits in size. There is no shift of the midline structures. There is no evidence of acute intracranial hemorrhage or mass effect. Minimal basal ganglia calcifications are noted. There is opacification of the right sphenoid sinus. There is mild mucosal thickening in the left maxillary sinus. IMPRESSION: No acute intracranial abnormality is detected. PQRS Compliance Statement: One or more of the following individualized dose reduction techniques were utilized for this examination: 1. Automated exposure control 2. Adjustment of the mA and/or kV according to patient size 3. Use of iterative reconstruction technique
[2017-02-16] MEDS: GEMFIBROZIL 600 MG TABLET. PO SCH (08:52)
[2017-02-16] MEDS: PANTOPRAZOLE 40 MG TABLET. PO SCH (08:52)
[2017-02-16] MEDS: SPIRONOLACTONE 25 MG TABLET PO SCH (08:52)
[2017-02-16] MEDS: LIPASE/PROTEAS/AMYLASE 5/17/27 CAPSULE.DR. PO SCH (08:52)
[2017-02-16] MEDS: OMEGA-3 FATTY ACIDS/FISH OIL 1,000 MG CAPSULE. PO SCH (08:52)
[2017-02-16] MEDS: FERROUS SULFATE 325 MG TABLET PO SCH (08:52)
[2017-02-16] MEDS: TAMSULOSIN 0.4 MG CAP.ER.24H. PO SCH (08:53)
[2017-02-16] MEDS: CALCITRIOL 0.25 MCG CAPSULE PO SCH (08:53)
[2017-02-16] MEDS: ASPIRIN ENTERIC COATED 81 MG TABLET.DR. PO SCH (08:53)
[2017-02-16] MEDS: FUROSEMIDE 80 MG TABLET PO SCH (08:53)
[2017-02-16] MEDS: PREGABALIN 75 MG CAPSULE PO SCH (08:54)
[2017-02-16] MEDS: ALPRAZOLAM 0.5 MG TABLET PO SCH (08:54)
[2017-02-16] MEDS: FOLIC ACID 1 MG TABLET PO SCH (08:54)
[2017-02-16] MEDS: DORZOLAMIDE/TIMOLOL 2%/0.5% OPHTH SOLUTION 10ML BOTTLE. OU SCH (08:56)
[2017-02-16] MEDS: NON FORMULARY ITEM (Difluprednate (Durezol) 1 DROP) OS SCH ×2 (08:59→13:00)
[2017-02-16] MEDS ORDERED: METOPROLOL TART IMMED RELEASE 25 MG TABLET PO SCH (09:00)
[2017-02-16 11:00] VITALS: BP 118/50
[2017-02-16] MEDS ORDERED: INSU100I17 SQ (11:08)
[2017-02-16] MEDS ORDERED: INSU100I27 SQ (11:08)
[2017-02-16] MEDS ORDERED: MAGNESIUM SULFATE 2GM 50 ML IV ONE (11:15)
--- NOTE | 2017-02-16 12:42 | PDOC ---
PROGRESS NOTES Assessment Problems Medical Problems: (1) Acute renal failure Status: Acute (2) Hypoglycemia Status: Acute New seizures secondary to hypoglycemia, anemia, and new dialysis. Certainly he has these 3 provocative factors to explain the seizure. Plan Okay for discharge Hold on anticonvulsants No additional neurological studies are required. Subjective no complaints Objective Vital Signs Date Time Temp Pulse Resp B/P Pulse Ox O2 Delivery O2 Flow Rate FiO2 02/16/17 11:00 97.0 75 20 118/50 99 Room Air 97.0 Intake and Output 02/16/17 07:00 Intake Total 1610 ml Output Total 1950 ml Balance -340 ml Intake Oral 1610 ml Output Urine Total 1950 ml PHYSICAL EXAM Alert. Oriented to time, place and person. PERRL. EOMI. CN: no focal findings. Muscle tone: normal. Muscle strength: 5/5 DTR: 1+ Plantar reflex: flexor Gait: not examined in bed. Sensory exam: no abnormal findings. No cerebellar signs elicited. Review of Relevant I have reviewed the following items sarah (where applicable) has been applied. Labs Laboratory Tests Test 02/15/17 06:54 02/15/17 08:21 02/15/17 11:55 02/15/17 11:56 White Blood Count 4.2x10^3/uL (4.0-11.0) Red Blood Count 2.43x10^6/uL (4.30-5.70) Hemoglobin 8.0g/dL (13.0-17.5) Hematocrit 24.6% (39.0-53.0) Mean Corpuscular Volume 101fL (79-100) Mean Corpuscular Hemoglobin 33pg (25-35) Mean Corpuscular Hemoglobin Concent 33g/dL (31-37) Red Cell Distribution Width 15.4% (11.5-14.5) Platelet Count 157x10^3/uL (140-400) Neutrophils (%) (Auto) 71% (31-73) Lymphocytes (%) (Auto) 18% (24-48) Monocytes (%) (Auto) 10% (0-9) Eosinophils (%) (Auto) 1% (0-3) Basophils (%) (Auto) 1% (0-3) Neutrophils # (Auto) 3.0x10^3uL (1.8-7.7) Lymphocytes # (Auto) 0.8x10^3/uL (1.0-4.8) Monocytes # (Auto) 0.4x10^3/uL (0.0-1.1) Eosinophils # (Auto) 0.0x10^3/uL (0.0-0.7) Basophils # (Auto) 0.0x10^3/uL (0.0-0.2) Sodium Level 134mmol/L (136-145) Potassium Level 4.9mmol/L (3.5-5.1) Chloride Level 100mmol/L (98-107) Carbon Dioxide Level 21mmol/L (21-32) Anion Gap 13 (6-14) Blood Urea Nitrogen 60mg/dL (8-26) Creatinine 2.6mg/dL (0.7-1.3) Estimated GFR (Cockcroft-Gault) 23.8 Glucose Level 167mg/dL (70-99) Calcium Level 8.5mg/dL (8.5-10.1) Phosphorus Level 3.6mg/dL (2.6-4.7) Albumin 3.3g/dL (3.4-5.0) Glucose (Fingerstick) 155mg/dL (70-99) 304mg/dL (70-99) Prothrombin Time 18.0SEC (11.7-14.0) Prothromb Time International Ratio 1.6 (0.8-1.1) Test 02/15/17 17:25 02/15/17 20:50 02/15/17 22:40 02/16/17 04:17 Glucose (Fingerstick) 107mg/dL (70-99) 366mg/dL (70-99) 369mg/dL (70-99) Hemoglobin 7.7g/dL (13.0-17.5) Prothrombin Time 18.5SEC (11.7-14.0) Prothromb Time International Ratio 1.6 (0.8-1.1) Sodium Level 141mmol/L (136-145) Potassium Level 4.5mmol/L (3.5-5.1) Chloride Level 103mmol/L (98-107) Carbon Dioxide Level 29mmol/L (21-32) Anion Gap 9 (6-14) Blood Urea Nitrogen 33mg/dL (8-26) Creatinine 1.9mg/dL (0.7-1.3) Estimated GFR (Cockcroft-Gault) 34.2 Glucose Level 227mg/dL (70-99) Calcium Level 8.3mg/dL (8.5-10.1) Phosphorus Level 2.7mg/dL (2.6-4.7) Magnesium Level 1.5mg/dL (1.8-2.4) Albumin 3.0g/dL (3.4-5.0) Test 02/16/17 07:37 02/16/17 11:34 Glucose (Fingerstick) 120mg/dL (70-99) 169mg/dL (70-99) Laboratory Tests Test 02/15/17 17:25 02/15/17 20:50 02/15/17 22:40 02/16/17 04:17 Glucose (Fingerstick) 107mg/dL (70-99) 366mg/dL (70-99) 369mg/dL (70-99) Hemoglobin 7.7g/dL (13.0-17.5) Prothrombin Time 18.5SEC (11.7-14.0) Prothromb Time International Ratio 1.6 (0.8-1.1) Sodium Level 141mmol/L (136-145) Potassium Level 4.5mmol/L (3.5-5.1) Chloride Level 103mmol/L (98-107) Carbon Dioxide Level 29mmol/L (21-32) Anion Gap 9 (6-14) Blood Urea Nitrogen 33mg/dL (8-26) Creatinine 1.9mg/dL (0.7-1.3) Estimated GFR (Cockcroft-Gault) 34.2 Glucose Level 227mg/dL (70-99) Calcium Level 8.3mg/dL (8.5-10.1) Phosphorus Level 2.7mg/dL (2.6-4.7) Magnesium Level 1.5mg/dL (1.8-2.4) Albumin 3.0g/dL (3.4-5.0) Test 02/16/17 07:37 02/16/17 11:34 Glucose (Fingerstick) 120mg/dL (70-99) 169mg/dL (70-99) Medications Current Medications Insulin Aspart (Novolog) 0-7 UNITS TIDWMEALS SQ Last administered on 02/15/17 08:00; Start 02/15/17 at 08:00; Stop 02/15/17 at 11:35; Status DC Dextrose 12.5 gm PRN Q15MIN PRN IV SEE COMMENTS; Start 02/15/17 at 03:30 Alprazolam (Xanax) 0.25 mg TID PO Last administered on 02/16/17 08:54; Start 02/15/17 at 14:00 Aspirin (Ecotrin) 81 mg DAILY PO Last administered on 02/16/17 08:53; Start at 12:00 Calcitriol (Rocaltrol) 0.25 mcg DAILY PO Last administered on 02/16/17 08:53; Start 02/15/17 at 12:00 Dorzolamide/ Timolol (Cosopt) 1 drop BID OU Last administered on 02/16/17 08: 56; Start 02/15/17 at 12:00 Ferrous Sulfate (Feosol) 325 mg DAILY PO Last administered on 02/16/17 08:52; Start 02/15/17 at 12:00 Folic Acid (Folic Acid) 2 mg TID PO Last administered on 02/16/17 08:54; Start 02/15/17 at 14:00 Furosemide (Lasix) 80 mg DAILY PO Last administered on 02/16/17 08:53; Start 02/15/17 at 12:00 Gemfibrozil (Lopid) 600 mg BID PO Last administered on 02/16/17 08:52; Start 02/15/17 at 12:00 Latanoprost (Xalatan) 1 drop QHS OU Last administered on 02/15/17 20:38; Start 02/15/17 at 21:00 Amylase/Lipase/ Protease (Zenpep 5,000) 4 cap TID PO Last administered on 08:52; Start 02/15/17 at 14:00 Metoprolol Tartrate (Lopressor) 25 mg DAILY PO Last administered on 02/16/17 08:53; Start 02/16/17 at 09:00 Neomycin/ Polymyxin/ Dexamethasone (Maxitrol) 3.5 inch QHS OS ; Start 02/15/17 at 21:00; Stop 02/15/17 at 21:00; Status DC Fish Oil (Fish Oil) 1,000 mg DAILY PO Last administered on 02/16/17 08:52; Start 02/15/17 at 12:00 Pregabalin (Lyrica) 75 mg BID PO Last administered on 02/16/17 08:54; Start at 12:00 Ropinirole HCl (Requip) 1 mg HS PO Last administered on 02/15/17 20:41; Start 02/15/17 at 21:00 Spironolactone (Aldactone) 25 mg DAILY PO Last administered on 02/16/17 08:52 ; Start 02/15/17 at 12:00 Tamsulosin HCl (Flomax) 0.8 mg DAILY PO Last administered on 02/16/17 08:53; Start 02/15/17 at 12:00 Warfarin Sodium (Coumadin) 4 mg DAILY16 PO Last administered on 02/15/17 17:51 ; Start 02/15/17 at 16:00 Non-Formulary Medication 1 drop QID OS ; Start 02/15/17 at 13:00; Status UNV Pantoprazole Sodium (Protonix) 40 mg DAILYAC PO Last administered on 02/16/17 08:52; Start 02/15/17 at 12:00 Insulin Detemir (Levemir) 15 units QHS SQ Last administered on 02/15/17 21:13 ; Start 02/15/17 at 21:00 Insulin Aspart (Novolog) 5 units TIDAC SQ Last administered on 02/16/17 11:45 ; Start 02/15/17 at 16:30 Insulin Aspart (Novolog) 0-9 UNITS QIDACHS SQ ; Start 02/15/17 at 16:30 Dextrose 12.5 gm PRN Q15MIN PRN IV SEE COMMENTS; Start 02/15/17 at 11:45 Warfarin Sodium (Coumadin Per Pharmacy) 1 each PRN DAILY PRN MC SEE COMMENTS; Start 02/15/17 at 11:45 Acetaminophen (Tylenol) 650 mg PRN Q6HRS PRN PO MILD PAIN / TEMP; Start at 11:45 Ondansetron HCl 4 mg 4 mg PRN Q6HRS PRN IV NAUSEA/VOMITING; Start 02/15/17 at 11:45 Magnesium Sulfate/ Dextrose (Magnesium Sulfate PREMIX 2GM) 50 ml @ 25 mls/hr PRN DAILY PRN IV for Mag < 1.7 on am labs; Start 02/15/17 at 11:45 Darbepoetin Joshua 60 mcg 60 mcg WEEKLYHS SQ Last administered on 02/15/17 20:39 ; Start 02/15/17 at 21:00 Sodium Chloride 1,000 ml @ 1,000 mls/hr Q1H PRN IV hypotension; Start 02/15/17 at 12:50; Stop 02/15/17 at 18:49; Status DC Albumin Human (Albuminar) 200 ml @ 200 mls/hr 1X PRN PRN IV Hypotension; Start 02/15/17 at 13:00; Stop 02/15/17 at 18:59; Status DC Acetaminophen (Tylenol) 500 mg 1X PRN PRN PO MILD PAIN / TEMP; Start 02/15/17 at 13:00; Stop 02/16/17 at 12:59 Diphenhydramine HCl (Benadryl) 25 mg 1X PRN PRN IV ITCHING; Start 02/15/17 at 13:00; Stop 02/16/17 at 12:59 Diphenhydramine HCl (Benadryl) 25 mg 1X PRN PRN IV ITCHING; Start 02/15/17 at 13:00; Stop 02/16/17 at 12:59 Info (PHARMACY MONITORING -- do not chart) 1 each PRN DAILY PRN MC SEE COMMENTS ; Start 02/15/17 at 13:00 Oxycodone/ Acetaminophen (Percocet 5/325) 1 tab PRN Q4HRS PRN PO PAIN Last administered on 02/15/17 20:37; Start 02/15/17 at 19:45 Lidocaine (Lidoderm) 1 patch HS TD Last administered on 02/15/17 21:06; Start 02/15/17 at 21:00 Neomycin/ Polymyxin/ Dexamethasone (Maxitrol) 0.5 inch QHS OS ; Start 02/15/17 at 21:00; Stop 02/15/17 at 21:00; Status DC Neomycin/ Polymyxin/ Dexamethasone (Maxitrol) 1 drop Q4H OS ; Start 02/15/17 at 21:00; Stop 02/15/17 at 21:00; Status DC Neomycin/ Polymyxin/ Dexamethasone (Maxitrol) 2 drop Q4H OS Last administered on 02/16/17 08:55; Start 02/15/17 at 21:00 Insulin Aspart 10 units 10 units 1X ONCE SQ Last administered on 02/15/17 21: 18; Start 02/15/17 at 21:30; Stop 02/15/17 at 21:31; Status DC Magnesium Sulfate/ Dextrose (Magnesium Sulfate PREMIX 2GM) 50 ml @ 25 mls/hr 1X ONCE IV Last administered on 02/16/17 11:34; Start 02/16/17 at 11:15; Stop 02/16/17 at 13:14 Active Scripts Active Levemir Flextouch (Insulin Detemir) 100 Unit/1 Ml Insuln.pen 15 Units SQ QHS 30 Days Novolog Flexpen (Insulin Aspart) 100 Unit/1 Ml Insuln.pen 5 Units SQ TIDAC 30 Days Lasix (Furosemide) 80 Mg Tablet 1 Tab PO DAILY Reported Metoprolol Tartrate 25 Mg Tablet 1 Tab PO BID Oopblh-Fshbc-Zfvjzkc Eye Ointm (Chapito/Polymyx B Sulf/Dexameth) 3.5 Gm Oint...g. 3.5 Gm OS QHS Durezol (Difluprednate) 5 Ml Drops 1 Drop OS QID Aspir 81 (Aspirin) 81 Mg Tablet.dr 1 Tab PO DAILY Senokot (Sennosides) 8.6 Mg Tablet 3 Tab PO BID Morphine Sulfate Er (Morphine Sulfate) 60 Mg Cap.er.pel 60 Mg PO Latanoprost 2.5 Ml Drops 1 Drop EACHEYE QHS Gemfibrozil 600 Mg Tablet 1 Tab PO BID Dorzolamide-Timolol Eye Drops (Dorzolamide Hcl/Timolol Maleat) 10 Ml Drops 1 Drop RIGHTEYE BID Lyrica (Pregabalin) 75 Mg Capsule 1 Cap PO BID Alprazolam 0.5 Mg Tablet 1 Tab PO TID Warfarin Sodium 4 Mg Tablet 1 Tab PO DAILY Fish Oil 1,000 Mg Capsule ([place]-3 Fatty Acids/Fish Oil) 1 Each Capsule 4 Each PO DAILY Pancrelipase 5,000 Unit Cap (Lipase/Protease/Amylase) 1 Each Capsule. 4 Each PO Prilosec Otc (Omeprazole Magnesium) 20 Mg Tablet. 20 Mg PO DAILY Spironolactone 25 Mg Tablet 25 Mg PO DAILY Calcitriol 0.25 Mcg Capsule 0.25 Mcg PO DAILY Folic Acid 1 Mg Tablet 2 Mg PO TID Ferosul (Ferrous Sulfate) 325 Mg Tablet 325 Mg PO Ropinirole Hcl 1 Mg Tablet 1 Mg PO HS Tamsulosin Hcl 0.4 Mg Cap.er.24h 0.8 Mg PO DAILY Travatan Z (Travoprost) 5 Ml Drops 5 Ml OP Vitals/I & O Vital Sign - Last 24 Hours 02/15/17 02/15/17 02/15/17 02/15/17 15:00 19:55 20:00 20:37 Temp 97.8 98.1 97.8 98.1 Pulse 69 78 Resp 18 16 16 B/P 135/54 138/61 Pulse Ox 100 95 O2 Delivery Room Air Room Air Room Air 02/15/17 02/15/17 02/16/17 02/16/17 21:37 23:43 03:24 07:00 Temp 98.1 97.3 98.1 97.3 Pulse 70 66 Resp 17 18 16 18 B/P 135/50 110/47 Pulse Ox 96 98 O2 Delivery Room Air Room Air Room Air Room Air 02/16/17 02/16/17 02/16/17 08:00 08:53 11:00 Temp 97.0 97.0 Pulse 66 75 Resp 20 B/P 110/47 118/50 Pulse Ox 99 O2 Delivery Room Air Room Air Intake and Output 02/15/17 02/15/17 02/16/17 15:00 23:00 07:00 Intake Total 350 ml 250 ml 1010 ml Output Total 800 ml 1150 ml Balance 350 ml -550 ml -[address] head: There is moderate cerebral atrophy. The ventricles are within normal limits in size. There is no shift of the midline structures. There is no evidence of acute intracranial hemorrhage or mass effect. Minimal basal ganglia calcifications are noted. There is opacification of the right sphenoid sinus. There is mild mucosal thickening in the left maxillary sinus. IMPRESSION: No acute intracranial abnormality is detected. CARISSA RIVERA MD Feb 16, 2017 12:42
--- NOTE | 2017-02-16 12:47 | PDOC3 ---
Discharge Summary [facility] Date of Admission: Feb 15, 2017 Discharge Date: Feb 16, 2017 Admitting Diagnosis 1. seizure, 2/2 hypoglycemia likely 2 . dm with hypoglycemia on insulin 3. chronic anemia , 2/2 chronic dz with cad, esrd 4. chronic CHF, diastolic, stable 5. h/o cad POST CABG 6. sss with ppm 7. [PAFIB ON COUmadin 8. recent set up HD with right upper chest HD CATH 9. BPH 10. hypomagnesemia Problems: Final Diagnosis CONSULTS renal neuro uro Brief Hospital Course 81yo M, was sent from [facility] for seizure, and anemia. there is no documents for H AND P from [facility]. as per ERP in [facility], was was found seizure, hard to breath at home last night, EMS was called, was found hypoglycemia <50, better with d50 in ER, saying he had a dinner last night, on insulin for dm2, no po meds for DM. He was also found Hb about 7. He was recently dced here with new set up HD for ESRD , as per pt, he missed his Tuesday HD. family require to transfer to [place]. pT has very bad hearing, cannot tell me what exactly happened, just said he woke up with EMS there and his said he had sob. He feels good now. said h's sugar was ok and then got seizure, was found hypoglycemia by EMS. Hb 8.0 here wo intervention, actually is his baseline. Pt denies chest pain, sob , N/V. has ASH for 2 weeks, wanted to remove. pt's sah was removed by uro today, able to urinate. got HD yesterday. GLucose stable. dc home today after replete Mag. decrease insulin to levemir 15u qhs, aspart 5u tid. dc time 35min GEN.: No apparent distress. Alert and oriented. HEENT: Head is normocephalic, atraumatic NECK: Supple. LUNGS: Clear to auscultation. HEART: RRR, S1, S2 present. Peripheral pulses intact ABDOMEN: Soft, nontender. Positive bowel sounds. EXTREMITIES: Without any cyanosis. NEUROLOGIC: Normal speech, normal tone PSYCHIATRIC: Normal affect, normal mood. SKIN: No ulcerations Patient History: Family history: Cardiovascular disease (situation) 32 MOTHER Problems: Disposition home CONDITION AT DISCHARGE: Improved Diet renal Scheduled Alprazolam (Alprazolam) 1 TAB PO TID (Reported) Aspirin (Aspir 81) 1 TAB PO DAILY (Reported) Calcitriol (Calcitriol) 0.25 MCG PO DAILY (Reported) Difluprednate (Durezol) 1 DROP OS QID (Reported) Dorzolamide Hcl/Timolol Maleat (Dorzolamide-Timolol Eye Drops) 1 DROP RIGHTEYE BID (Reported) Folic Acid (Folic Acid) 2 MG PO TID (Reported) Furosemide (Lasix) 1 TAB PO DAILY Gemfibrozil (Gemfibrozil) 1 TAB PO BID (Reported) Insulin Aspart (Novolog Flexpen) 5 UNITS SQ TIDAC Insulin Detemir (Levemir Flextouch) 15 UNITS SQ QHS Latanoprost (Latanoprost) 1 DROP EACHEYE QHS (Reported) Metoprolol Tartrate (Metoprolol Tartrate) 1 TAB PO BID (Reported) Chapito/Polymyx B Sulf/Dexameth (Mklusm-Wueaj-Watujwi Eye Ointm) 3.5 GM OS QHS ( Reported) [place]-3 Fatty Acids/Fish Oil (Fish Oil 1,000 Mg Capsule) 4 EACH PO DAILY ( Reported) Omeprazole Magnesium (Prilosec Otc) 20 MG PO DAILY (Reported) Pregabalin (Lyrica) 1 CAP PO BID (Reported) Ropinirole Hcl (Ropinirole Hcl) 1 MG PO HS (Reported) Sennosides (Senokot) 3 TAB PO BID (Reported) Spironolactone (Spironolactone) 25 MG PO DAILY (Reported) Tamsulosin Hcl (Tamsulosin Hcl) 0.8 MG PO DAILY (Reported) Warfarin Sodium (Warfarin Sodium) 1 TAB PO DAILY (Reported) Miscellaneous Medications Ferrous Sulfate (Ferosul) 325 MG PO (Reported) Lipase/Protease/Amylase (Pancrelipase Dr 5,000 Unit Cap) 4 EACH PO (Reported) Morphine Sulfate (Morphine Sulfate Er) 60 MG PO (Reported) Travoprost (Travatan Z) 5 ML OP (Reported) Discontinued Medications Gemfibrozil (Gemfibrozil) 600 MG PO BID (Reported) Insulin Glargine,Hum.rec.anlog (Lantus) 22 UNIT SQ HS (Reported) Insulin Lispro (Humalog) 8 UNIT SQ TID (Reported) Metoprolol Tartrate (Metoprolol Tartrate) 0.5 TAB PO DAILY (Reported) Pregabalin (Lyrica) 50 MG PO TID (Reported) Follow Up pcp next week JAMES QUAN MD Feb 16, 2017 12:46
[2017-02-16] MEDS ORDERED: MAGNESIUM OXIDE 400 MG TABLET PO ONE (13:15)
--- NOTE | 2017-02-16 13:49 | PDOC ---
PROGRESS NOTES Subjective Subjective Pt Just D/randall before I could see him, I was not called prior to D/c Objective Objective Vital Signs Date Time Temp Pulse Resp B/P Pulse Ox O2 Delivery O2 Flow Rate FiO2 02/16/17 11:00 97.0 75 20 118/50 99 Room Air 97.0 Intake and Output 02/16/17 07:00 Intake Total 1610 ml Output Total 1950 ml Balance -340 ml Intake Oral 1610 ml Output Urine Total 1950 ml Assessment Assessment Problems Medical Problems: (1) Acute renal failure Status: Acute (2) Hypoglycemia Status: Acute Comment Review of Relevant I have reviewed the following items sarah (where applicable) has been applied. Labs Laboratory Tests Test 02/15/17 06:54 02/15/17 08:21 02/15/17 11:55 02/15/17 11:56 White Blood Count 4.2x10^3/uL (4.0-11.0) Red Blood Count 2.43x10^6/uL (4.30-5.70) Hemoglobin 8.0g/dL (13.0-17.5) Hematocrit 24.6% (39.0-53.0) Mean Corpuscular Volume 101fL (79-100) Mean Corpuscular Hemoglobin 33pg (25-35) Mean Corpuscular Hemoglobin Concent 33g/dL (31-37) Red Cell Distribution Width 15.4% (11.5-14.5) Platelet Count 157x10^3/uL (140-400) Neutrophils (%) (Auto) 71% (31-73) Lymphocytes (%) (Auto) 18% (24-48) Monocytes (%) (Auto) 10% (0-9) Eosinophils (%) (Auto) 1% (0-3) Basophils (%) (Auto) 1% (0-3) Neutrophils # (Auto) 3.0x10^3uL (1.8-7.7) Lymphocytes # (Auto) 0.8x10^3/uL (1.0-4.8) Monocytes # (Auto) 0.4x10^3/uL (0.0-1.1) Eosinophils # (Auto) 0.0x10^3/uL (0.0-0.7) Basophils # (Auto) 0.0x10^3/uL (0.0-0.2) Sodium Level 134mmol/L (136-145) Potassium Level 4.9mmol/L (3.5-5.1) Chloride Level 100mmol/L (98-107) Carbon Dioxide Level 21mmol/L (21-32) Anion Gap 13 (6-14) Blood Urea Nitrogen 60mg/dL (8-26) Creatinine 2.6mg/dL (0.7-1.3) Estimated GFR (Cockcroft-Gault) 23.8 Glucose Level 167mg/dL (70-99) Calcium Level 8.5mg/dL (8.5-10.1) Phosphorus Level 3.6mg/dL (2.6-4.7) Albumin 3.3g/dL (3.4-5.0) Glucose (Fingerstick) 155mg/dL (70-99) 304mg/dL (70-99) Prothrombin Time 18.0SEC (11.7-14.0) Prothromb Time International Ratio 1.6 (0.8-1.1) Test 02/15/17 17:25 02/15/17 20:50 02/15/17 22:40 02/16/17 04:17 Glucose (Fingerstick) 107mg/dL (70-99) 366mg/dL (70-99) 369mg/dL (70-99) Hemoglobin 7.7g/dL (13.0-17.5) Prothrombin Time 18.5SEC (11.7-14.0) Prothromb Time International Ratio 1.6 (0.8-1.1) Sodium Level 141mmol/L (136-145) Potassium Level 4.5mmol/L (3.5-5.1) Chloride Level 103mmol/L (98-107) Carbon Dioxide Level 29mmol/L (21-32) Anion Gap 9 (6-14) Blood Urea Nitrogen 33mg/dL (8-26) Creatinine 1.9mg/dL (0.7-1.3) Estimated GFR (Cockcroft-Gault) 34.2 Glucose Level 227mg/dL (70-99) Calcium Level 8.3mg/dL (8.5-10.1) Phosphorus Level 2.7mg/dL (2.6-4.7) Magnesium Level 1.5mg/dL (1.8-2.4) Albumin 3.0g/dL (3.4-5.0) Test 02/16/17 07:37 02/16/17 11:34 Glucose (Fingerstick) 120mg/dL (70-99) 169mg/dL (70-99) Laboratory Tests Test 02/15/17 17:25 02/15/17 20:50 02/15/17 22:40 02/16/17 04:17 Glucose (Fingerstick) 107mg/dL (70-99) 366mg/dL (70-99) 369mg/dL (70-99) Hemoglobin 7.7g/dL (13.0-17.5) Prothrombin Time 18.5SEC (11.7-14.0) Prothromb Time International Ratio 1.6 (0.8-1.1) Sodium Level 141mmol/L (136-145) Potassium Level 4.5mmol/L (3.5-5.1) Chloride Level 103mmol/L (98-107) Carbon Dioxide Level 29mmol/L (21-32) Anion Gap 9 (6-14) Blood Urea Nitrogen 33mg/dL (8-26) Creatinine 1.9mg/dL (0.7-1.3) Estimated GFR (Cockcroft-Gault) 34.2 Glucose Level 227mg/dL (70-99) Calcium Level 8.3mg/dL (8.5-10.1) Phosphorus Level 2.7mg/dL (2.6-4.7) Magnesium Level 1.5mg/dL (1.8-2.4) Albumin 3.0g/dL (3.4-5.0) Test 02/16/17 07:37 02/16/17 11:34 Glucose (Fingerstick) 120mg/dL (70-99) 169mg/dL (70-99) Medications Current Medications Insulin Aspart (Novolog) 0-7 UNITS TIDWMEALS SQ Last administered on 02/15/17t 08:00; Start 02/15/17 at 08:00; Stop 02/15/17 at 11:35; Status DC Dextrose 12.5 gm PRN Q15MIN PRN IV SEE COMMENTS; Start 02/15/17 at 03:30 Alprazolam (Xanax) 0.25 mg TID PO Last administered on 02/16/17 08:54; Start 02/15/17 at 14:00 Aspirin (Ecotrin) 81 mg DAILY PO Last administered on 02/16/17 08:53; Start at 12:00 Calcitriol (Rocaltrol) 0.25 mcg DAILY PO Last administered on 02/16/17 08:53; Start 02/15/17 at 12:00 Dorzolamide/ Timolol (Cosopt) 1 drop BID OU Last administered on 02/16/17 08: 56; Start 02/15/17 at 12:00 Ferrous Sulfate (Feosol) 325 mg DAILY PO Last administered on 02/16/17 08:52; Start 02/15/17 at 12:00 Folic Acid (Folic Acid) 2 mg TID PO Last administered on 02/16/17 08:54; Start 02/15/17 at 14:00 Furosemide (Lasix) 80 mg DAILY PO Last administered on 02/16/17 08:53; Start 02/15/17 at 12:00 Gemfibrozil (Lopid) 600 mg BID PO Last administered on 02/16/17 08:52; Start 02/15/17 at 12:00 Latanoprost (Xalatan) 1 drop QHS OU Last administered on 02/15/17 20:38; Start 02/15/17 at 21:00 Amylase/Lipase/ Protease (Zenpep 5,000) 4 cap TID PO Last administered on 08:52; Start 02/15/17 at 14:00 Metoprolol Tartrate (Lopressor) 25 mg DAILY PO Last administered on 02/16/17 08:53; Start 02/16/17 at 09:00 Neomycin/ Polymyxin/ Dexamethasone (Maxitrol) 3.5 inch QHS OS ; Start 02/15/17 at 21:00; Stop 02/15/17 at 21:00; Status DC Fish Oil (Fish Oil) 1,000 mg DAILY PO Last administered on 02/16/17 08:52; Start 02/15/17 at 12:00 Pregabalin (Lyrica) 75 mg BID PO Last administered on 02/16/17 08:54; Start at 12:00 Ropinirole HCl (Requip) 1 mg HS PO Last administered on 02/15/17 20:41; Start 02/15/17 at 21:00 Spironolactone (Aldactone) 25 mg DAILY PO Last administered on 02/16/17 08:52 ; Start 02/15/17 at 12:00 Tamsulosin HCl (Flomax) 0.8 mg DAILY PO Last administered on 02/16/17 08:53; Start 02/15/17 at 12:00 Warfarin Sodium (Coumadin) 4 mg DAILY16 PO Last administered on 02/15/17 17:51 ; Start 02/15/17 at 16:00 Non-Formulary Medication 1 drop QID OS ; Start 02/15/17 at 13:00; Status UNV Pantoprazole Sodium (Protonix) 40 mg DAILYAC PO Last administered on 02/16/17 08:52; Start 02/15/17 at 12:00 Insulin Detemir (Levemir) 15 units QHS SQ Last administered on 02/15/17 21:13 ; Start 02/15/17 at 21:00 Insulin Aspart (Novolog) 5 units TIDAC SQ Last administered on 02/16/17 11:45 ; Start 02/15/17 at 16:30 Insulin Aspart (Novolog) 0-9 UNITS QIDACHS SQ ; Start 02/15/17 at 16:30 Dextrose 12.5 gm PRN Q15MIN PRN IV SEE COMMENTS; Start 02/15/17 at 11:45 Warfarin Sodium (Coumadin Per Pharmacy) 1 each PRN DAILY PRN MC SEE COMMENTS; Start 02/15/17 at 11:45 Acetaminophen (Tylenol) 650 mg PRN Q6HRS PRN PO MILD PAIN / TEMP; Start at 11:45 Ondansetron HCl 4 mg 4 mg PRN Q6HRS PRN IV NAUSEA/VOMITING; Start 02/15/17 at 11:45 Magnesium Sulfate/ Dextrose (Magnesium Sulfate PREMIX 2GM) 50 ml @ 25 mls/hr PRN DAILY PRN IV for Mag < 1.7 on am labs; Start 02/15/17 at 11:45 Darbepoetin Joshua 60 mcg 60 mcg WEEKLYHS SQ Last administered on 02/15/17 20:39 ; Start 02/15/17 at 21:00 Sodium Chloride 1,000 ml @ 1,000 mls/hr Q1H PRN IV hypotension; Start 02/15/17 at 12:50; Stop 02/15/17 at 18:49; Status DC Albumin Human (Albuminar) 200 ml @ 200 mls/hr 1X PRN PRN IV Hypotension; Start 02/15/17 at 13:00; Stop 02/15/17 at 18:59; Status DC Acetaminophen (Tylenol) 500 mg 1X PRN PRN PO MILD PAIN / TEMP; Start 02/15/17 at 13:00; Stop 02/16/17 at 12:59; Status DC Diphenhydramine HCl (Benadryl) 25 mg 1X PRN PRN IV ITCHING; Start 02/15/17 at 13:00; Stop 02/16/17 at 12:59; Status DC Diphenhydramine HCl (Benadryl) 25 mg 1X PRN PRN IV ITCHING; Start 02/15/17 at 13:00; Stop 02/16/17 at 12:59; Status DC Info (PHARMACY MONITORING -- do not chart) 1 each PRN DAILY PRN MC SEE COMMENTS ; Start 02/15/17 at 13:00 Oxycodone/ Acetaminophen (Percocet 5/325) 1 tab PRN Q4HRS PRN PO PAIN Last administered on 02/15/17 20:37; Start 02/15/17 at 19:45 Lidocaine (Lidoderm) 1 patch HS TD Last administered on 02/15/17 21:06; Start 02/15/17 at 21:00 Neomycin/ Polymyxin/ Dexamethasone (Maxitrol) 0.5 inch QHS OS ; Start 02/15/17 at 21:00; Stop 02/15/17 at 21:00; Status DC Neomycin/ Polymyxin/ Dexamethasone (Maxitrol) 1 drop Q4H OS ; Start 02/15/17 at 21:00; Stop 02/15/17 at 21:00; Status DC Neomycin/ Polymyxin/ Dexamethasone (Maxitrol) 2 drop Q4H OS Last administered on 02/16/17 13:32; Start 02/15/17 at 21:00 Insulin Aspart 10 units 10 units 1X ONCE SQ Last administered on 02/15/17 21: 18; Start 02/15/17 at 21:30; Stop 02/15/17 at 21:31; Status DC Magnesium Sulfate/ Dextrose (Magnesium Sulfate PREMIX 2GM) 50 ml @ 25 mls/hr 1X ONCE IV Last administered on 02/16/17 11:34; Start 02/16/17 at 11:15; Stop 02/16/17 at 13:14; Status DC Magnesium Oxide (Magnesium Oxide) 400 mg 1X ONCE PO Last administered on 13:32; Start 02/16/17 at 13:15; Stop 02/16/17 at 13:26; Status DC Active Scripts Active Levemir Flextouch (Insulin Detemir) 100 Unit/1 Ml Insuln.pen 15 Units SQ QHS 30 Days Novolog Flexpen (Insulin Aspart) 100 Unit/1 Ml Insuln.pen 5 Units SQ TIDAC 30 Days Lasix (Furosemide) 80 Mg Tablet 1 Tab PO DAILY Reported Metoprolol Tartrate 25 Mg Tablet 1 Tab PO BID Snwgnh-Ftvsm-Smzwjnr Eye Ointm ([place]/Polymyx B Sulf/Dexameth) 3.5 Gm Oint...g. 3.5 Gm OS QHS Durezol (Difluprednate) 5 Ml Drops 1 Drop OS QID Aspir 81 (Aspirin) 81 Mg Tablet. 1 Tab PO DAILY Senokot (Sennosides) 8.6 Mg Tablet 3 Tab PO BID Morphine Sulfate Er (Morphine Sulfate) 60 Mg Cap.er.pel 60 Mg PO Latanoprost 2.5 Ml Drops 1 Drop EACHEYE QHS Gemfibrozil 600 Mg Tablet 1 Tab PO BID Dorzolamide-Timolol Eye Drops (Dorzolamide Hcl/Timolol Maleat) 10 Ml Drops 1 Drop RIGHTEYE BID Lyrica (Pregabalin) 75 Mg Capsule 1 Cap PO BID Alprazolam 0.5 Mg Tablet 1 Tab PO TID Warfarin Sodium 4 Mg Tablet 1 Tab PO DAILY Fish Oil 1,000 Mg Capsule ([place]-3 Fatty Acids/Fish Oil) 1 Each Capsule 4 Each PO DAILY Pancrelipase 5,000 Unit Cap (Lipase/Protease/Amylase) 1 Each Capsule. 4 Each PO Prilosec Otc (Omeprazole Magnesium) 20 Mg Tablet. 20 Mg PO DAILY Spironolactone 25 Mg Tablet 25 Mg PO DAILY Calcitriol 0.25 Mcg Capsule 0.25 Mcg PO DAILY Folic Acid 1 Mg Tablet 2 Mg PO TID Ferosul (Ferrous Sulfate) 325 Mg Tablet 325 Mg PO Ropinirole Hcl 1 Mg Tablet 1 Mg PO HS Tamsulosin Hcl 0.4 Mg Cap.er.24h 0.8 Mg PO DAILY Travatan Z (Travoprost) 5 Ml Drops 5 Ml OP Vitals/I & O Vital Sign - Last 24 Hours 02/15/17 02/15/17 02/15/17 02/15/17 15:00 19:55 20:00 20:37 Temp 97.8 98.1 97.8 98.1 Pulse 69 78 Resp 16 B/P 135/54 138/61 Pulse Ox 100 95 O2 Delivery Room Air Room Air Room Air 02/15/17 02/15/17 02/16/17 02/16/17 21:37 23:43 03:24 07:00 Temp 98.1 97.3 98.1 97.3 Pulse 70 66 Resp 17 18 B/P 135/50 110/47 Pulse Ox 96 98 O2 Delivery Room Air Room Air Room Air Room Air 02/16/17 02/16/17 02/16/17 08:00 08:53 11:00 Temp 97.0 97.0 Pulse 66 75 Resp 20 B/P 110/47 118/50 Pulse Ox 99 O2 Delivery Room Air Room Air Intake and Output 02/15/17 02/15/17 02/16/17 15:00 23:00 07:00 Intake Total 350 ml 250 ml 1010 ml Output Total 800 ml 1150 ml Balance 350 ml -550 ml -140 ml RICHIE UPTON MD Feb 16, 2017 13:49
== END 2017-02-16 13:45 | disposition home or self-care (01) | DRG 100 ==
LOC: 6 SOUTH 02:09
PROVIDERS: ADMIT Internal Medicine; ATTEND Internal Medicine
DX: R56.9 Unspecified convulsions (principal); N18.6 End stage renal disease; I50.32 Chronic diastolic (congestive) heart failure; I13.0 Hypertensive heart and chronic kidney disease with heart failure and stage 1 through stage 4 chronic kidney disease, or unspecified chronic kidney disease; N17.9 Acute kidney failure, unspecified; E11.649 Type 2 diabetes mellitus with hypoglycemia without coma; D64.9 Anemia, unspecified; E11.22 Type 2 diabetes mellitus with diabetic chronic kidney disease; E66.9 Obesity, unspecified; E78.5 Hyperlipidemia, unspecified; E83.42 Hypomagnesemia; E87.5 Hyperkalemia; G47.30 Sleep apnea, unspecified; H40.9 Unspecified glaucoma; H91.90 Unspecified hearing loss, unspecified ear; I25.10 Atherosclerotic heart disease of native coronary artery without angina pectoris; I48.91 Unspecified atrial fibrillation; K21.9 Gastro-esophageal reflux disease without esophagitis; N40.1 Benign prostatic hyperplasia with lower urinary tract symptoms; R33.8 Other retention of urine; Z82.49 Family history of ischemic heart disease and other diseases of the circulatory system; Z87.11 Personal history of peptic ulcer disease; Z85.828 Personal history of other malignant neoplasm of skin; Z95.1 Presence of aortocoronary bypass graft; Z95.5 Presence of coronary angioplasty implant and graft; Z99.2 Dependence on renal dialysis; I25.2 Old myocardial infarction; Z98.890 Other specified postprocedural states
CPT/HCPCS: 36415; 70450; 80069; 82947; 83735; 85018; 85027; 85610; J0881; J1815; J7060

== ENCOUNTER 2017-06-06 18:08 | Inpatient (IN) | payer MEDICARE, BC ==
[~2017-06-06] VITALS: Ht 162.6 cm; Wt 98.5 kg
[~2017-06-06 18:08] MED LIST changes: +DOCU100C28 PO; -DOCU100C5 PO; +INSU100I17 SQ; +INSU100I27 SQ; +METO25TA4 PO
[2017-06-06 19:48] VITALS: BP 123/71
[2017-06-06] MEDS ORDERED: INSU100I13 SQ (20:25)
[2017-06-06] MEDS ORDERED: OXYC-323 PO (20:25)
[2017-06-06] MEDS ORDERED: HYDR-2867 PO (20:25)
[2017-06-06] MEDS ORDERED: FOLI1TAB16 PO (20:25)
[2017-06-06] MEDS ORDERED: PREG75CA PO (20:25)
[2017-06-06] MEDS ORDERED: INSU100C SQ (20:25)
--- NOTE | 2017-06-06 21:29 | PDOC1 ---
History and Physical Date of Admission Date of Admission DATE: 06/06/17 TIME: 21:28 Identification/Chief Complaint Chief Complaint multiple falls ICH Problems: Source Source: Patient History of Present Illness History of Present Illness Mr Morse is an 81 y/o man with history of multiple falls, which had prompted admission to the hospital as well as subsequent rehab placement. He unfortunately just had been discharged to home a few days ago. He sustains another fall today in his kitchen. he denies any loss of consciousness or stumbling, but describes his knees giving out from under him. He struck is head hard, with temporal abrasion and periorbital edema, as well as bruising and abrasions on arms and buttock. He was brought to the ER at [facility], where a CT head revealed a new intracranial hemorrhage in the right frontal lobe without mass effect. He was transferred to [facility] for further observation and treatment. Past Medical History Cardiovascular: AFIB, CAD, CHF, HTN, DE, Hyperlipidemia Pulmonary: Pneumonia, Other GI: GERD, Peptic Ulcer disease Heme/Onc: Anemia NOS Musculoskeletal: Osteoarthritis Renal/: Chronic renal failure, Benign prostatic enlarg., Urinary Incontinence Endocrine: Diabetes Past Surgical History Past Surgical History: Pacemaker, CABG, Cataract Removal, Tonsillectomy, Other Family History Family History: Heart Disease Social History ALCOHOL: none Drugs: None Current Medications Current Medications Active Scripts Active Levemir Flextouch (Insulin Detemir) 100 Unit/1 Ml Insuln.pen 15 Units SQ QHS 30 Days Novolog Flexpen (Insulin Aspart) 100 Unit/1 Ml Insuln.pen 5 Units SQ TIDAC 30 Days Lasix (Furosemide) 80 Mg Tablet 1 Tab PO DAILY Reported Hydralazine Hcl 10 Mg Tablet 1 Tab PO BID Percocet 5-325 Mg Tablet (Oxycodone/Acetaminophen) 1 Each Tablet 1 Tab PO QID Lyrica (Pregabalin) 75 Mg Capsule 1 Cap PO DAILY Lantus Solostar (Insulin Glargine,Hum.rec.anlog) 100 Unit/1 Ml Insuln.pen 24 Unit SQ QHS Humalog (Insulin Lispro) 100 Unit/1 Ml Cartridge 8 Unit SQ TIDAC Folic Acid 1 Mg Tablet 1 Tab PO DAILY Aspir 81 (Aspirin) 81 Mg Tablet.dr 1 Tab PO DAILY Senokot (Sennosides) 8.6 Mg Tablet 3 Tab PO BID Gemfibrozil 600 Mg Tablet 1 Tab PO BID Alprazolam 0.5 Mg Tablet 1 Tab PO TID Fish Oil 1,000 Mg Capsule ([employer]-3 Fatty Acids/Fish Oil) 1 Each Capsule 4 Each PO DAILY Pancrelipase 5,000 Unit Cap (Lipase/Protease/Amylase) 1 Each Capsule.dr 4 Each PO Prilosec Otc (Omeprazole Magnesium) 20 Mg Tablet.dr 20 Mg PO DAILY Spironolactone 25 Mg Tablet 25 Mg PO DAILY Ropinirole Hcl 1 Mg Tablet 1 Mg PO HS Tamsulosin Hcl 0.4 Mg Cap.er.24h 0.8 Mg PO DAILY Travatan Z (Travoprost) 5 Ml Drops 5 Ml OP Allergies Allergies: Coded Allergies: Pjswnbc-Eqq-Mxo Reductase Inhibitor (Verified Allergy, Severe, Brain swelling. , 09/18/15) Pt was taking Gabapentin with a Statin and per . "It almost killed him." gabapentin (Verified Allergy, Severe, Brain swelling, 09/18/15) Per pt had Gabapentin with a Statin and it caused brain swelling, "almost killed him." sulfamethoxazole (Verified Allergy, Intermediate, 01/01/17) trimethoprim (Verified Allergy, Intermediate, 01/01/17) morphine (Verified Adverse Reaction, Severe, 02/15/17) ROS Review of System positive as per HPI. pain in face, extremities, buttocks. denies vision problems, unilateral weaknes, RIVERA or other neurol sx. denies CP, SOB, abd pain , N/V Physical Exam General: Alert, Oriented X3, Cooperative, No acute distress HEENT: EOMI, Mucous membr. moist/pink, Other (L temporal abrasions and periorbital hematoma) Lungs: Clear to auscultation Heart: RRR Abdomen: Normal bowel sounds, Other (obese) Extremities: No clubbing, Other (abrasion on R 3rd and 4th fingeres with avulsion of nail on 4th) Skin: No rashes Neuro: Normal speech Psych/Mental Status: Mood NL Vitals Vitals Vital Signs Date Time Temp Pulse Resp B/P (MAP) Pulse Ox O2 Delivery O2 Flow Rate FiO2 06/06/17 19:48 97.3 70 20 123/71 (88) 98 Nasal Cannula 2.0 97.3 VTE Prophylaxis Ordered VTE Prophylaxis Devices: Yes VTE Pharmacological Prophylaxi: Contraindicated Assessment/Plan Assessment/Plan Mr Morse is an 81 y/o man with longstanding history of multiple falls, on coumadin for afib, who presented with recurrent fall and significant injuries, incl subarachnoid hemorrhage. He is currently asymptomatic from ICH. will monitor closely, neurowise.. rpt CT in Am and consult to Neurosurgery. His coumadin level was thankfully subtherapeutic and has been reversed with vit K in the ER. monitor INR. Obviously, further anticoagulation is precluded by significant history of falls, now with serious sequelae. The etiology of his falls is somewhat unclear, but suspicion is that the combination of multiple sedating meds and muscle relaxants are to blame. This was discussed with patient, who is willing to follow any direction that may keep him from further injury. Al his other home meds will be continued, without any of the chronic issues having acute component at this time. MELISSA ESPAÑA MD Jun 06, 2017 21:29
[2017-06-06] MEDS ORDERED: MAG HYDROX/ALUMINUM HYD/SIMETH 30 ML ORAL.SUSP PO PRN (22:15)
[2017-06-06] MEDS ORDERED: ALPRAZolam 0.5 MG TABLET PO PRN (22:15)
[2017-06-06] MEDS ORDERED: 0.9 % SODIUM CHLORIDE 10 ML DISP.SYRIN. IV PRN (22:15)
[2017-06-06] MEDS ORDERED: ONDANSETRON PF 4 MG/2 ML VIAL. IV PRN (22:15)
[2017-06-06 23:30] VITALS: BP 108/78
--- NOTE | 2017-06-07 00:22 | ACF ---
Admission Forms Criteria SUBARACHNOID HEMORRHAGE, NONSURGICAL TREATMENT Clinical Indications for Admission to Inpatient Care (Place 'X' for any and all applicable criteria): Admission is indicated for ANY ONE of the following(1)(2)(3)(4): [X]I. Acute subarachnoid hemorrhage Extended stay beyond goal length of stay may be needed for(2)(13): [ ]a) Clinical deterioration(3) [ ]b) Hydrocephalus [ ]c) Seizures [ ]d) Cerebral vasospasm [ ]e) Pulmonary edema(4) [ ]f) Hospital-acquired infection (eg, urinary tract infection, pneumonia) [ ]g) Severe electrolyte abnormality (eg, hypernatremia, hyponatremia) [ ]h) Ventilatory failure [ ]i) Increased intracranial pressure [ ]j) Rebleeding The original [facility] content created by [facility] has been revised. The portions of the content which have been revised are identified through the use of italic text or in bold, and [facility] has neither reviewed nor approved the modified material. All other unmodified content is copyright [facility]. Please see references footnoted in the original [facility] edition 2016 Admission Criteria Met?: Yes KINJAL LAMAR Jun 07, 2017 00:22 MELISSA ESPAÑA MD Jun 07, 2017 18:56
[2017-06-07 03:30] VITALS: BP 120/55
[2017-06-07] MEDS ORDERED: CONTRAST GIVEN MC PRN (05:00)
[2017-06-07] MEDS ORDERED: IOHEXOL 300 MG/ML 75 ML VIAL IV ONE (05:30)
[2017-06-07 06:41] LABS: BILIRUBIN,URINE NEGATIVE (NEG); GLUCOSE,URINE NEGATIVE (NEG); NITRITE,URINE NEGATIVE (NEG); PH,URINE 5.5; PROTEIN,URINE 30 mg/dL (NEG-TRACE); UROBILINOGEN,URINE 0.2 mg/dL (0.2 mg/dL)
[2017-06-07 06:51] LABS: SQUAMOUS EPITHELIAL CELL,UR FEW /LPF
[2017-06-07 06:52] LABS: BACTERIA,URINE MOD /HPF (0-FEW)
[2017-06-07 06:56] LABS: YEAST,URINE PRESENT /HPF
[2017-06-07 07:00] VITALS: BP 135/60
--- NOTE | 2017-06-07 07:17 | RAD ---
CT of the head without contrast, 06/07/2017: History: Follow-up intracranial hemorrhage Comparison is made to the outside study from 06/06/2017. There is cerebral atrophy. The ventricles are within normal limits in size. There is no shift of the midline structures. There is a small focus of increased density again noted in the right frontal region along the surface of the brain. This appears to lie in the subarachnoid space. It is unchanged in size. It is diminishing slightly in density. No new intracranial hemorrhage is seen. The cerebellum and brainstem are unremarkable. IMPRESSION: 1. Stable tiny focus of subarachnoid hemorrhage in the right frontal region. 2. No new abnormality is detected. PQRS Compliance Statement: One or more of the following individualized dose reduction techniques were utilized for this examination: 1. Automated exposure control 2. Adjustment of the mA and/or kV according to patient size 3. Use of iterative reconstruction technique
[2017-06-07 07:25] LABS: BASO % 1 % (0-3); EOS % 2 % (0-3); HEMATOCRIT 27.9 % (39.0-53.0); HEMOGLOBIN 9.2 g/dL (13.0-17.5); LYMPH # 1.1 x10^3/uL (1.0-4.8); LYMPH % 24 % (24-48); MEAN CORPUSCULAR HEMOGLOBIN 32 pg (25-35); MEAN CORPUSCULAR HGB CONC 33 g/dL (31-37); MEAN CORPUSCULAR VOLUME 98 fL (79-100); MONO % 13 % (0-9); NEUT % 60 % (31-73); PLATELET COUNT 165 x10^3/uL (140-400); RED BLOOD COUNT 2.85 x10^6/uL (4.30-5.70); RED CELL DISTRIBUTION WIDTH 14.9 % (11.5-14.5); WHITE BLOOD COUNT 4.5 x10^3/uL (4.0-11.0)
--- NOTE | 2017-06-07 07:32 | EKG ---
[facility] [address] [place] [address] Test Date: 2017-06-07 Test Time: 07:26:01 Pat Name: GABO WHITMAN Department: Room: [facility] Gender: M [employer] Ship: [place] : 1935 Requested By: MELISSA ESPAÑA Order Number: [id number] Reading MD: Measurements Intervals [place] Rate: 70 P: -63 [place]: 178 QRS: -41 QRSD: 102 T: 25 QT: 404 QTc: 439 Interpretive Statements SINUS RHYTHM ABNORMAL LEFT AXIS DEVIATION R-S TRANSITION ZONE IN V LEADS DISPLACED TO THE RIGHT LOW LIMB LEAD VOLTAGE INCOMPLETE RIGHT BUNDLE BRANCH BLOCK RVH WITH REPOLARIZATION ABNORMALITY ABNORMAL ECG RI6.01 No previous ECG available for comparison
[2017-06-07 07:34] LABS: INR 1.9 (0.8-1.1); PROTHROMBIN TIME PATIENT 20.4 SEC (11.7-14.0)
[2017-06-07 07:44] LABS: ALBUMIN/GLOBULIN RATIO 0.8 (1.0-1.7); CALCIUM 7.6 mg/dL (8.5-10.1); CREATININE 7.7 mg/dL (0.7-1.3); GFR 6.8; POTASSIUM 4.3 mmol/L (3.5-5.1); TOTAL BILIRUBIN 0.4 mg/dL (0.2-1.0); TOTAL PROTEIN 6.6 g/dL (6.4-8.2)
[2017-06-07] MEDS: SENNOSIDES/DOCUSATE 8.6/50MG TABLET. PO SCH ×2 (08:12→21:54)
[2017-06-07] MEDS: OMEGA-3 FATTY ACIDS/FISH OIL 1,000 MG CAPSULE. PO SCH (08:12)
[2017-06-07] MEDS: PANTOPRAZOLE 40 MG TABLET.DR. PO SCH (08:12)
[2017-06-07] MEDS: LIPASE/PROTEAS/AMYLASE 5/17/27 CAPSULE.DR. PO SCH ×4 (08:13→21:53)
[2017-06-07] MEDS: FOLIC ACID 1 MG TABLET. PO SCH (08:13)
[2017-06-07] MEDS: FUROSEMIDE 80 MG TABLET. PO SCH (08:13)
[2017-06-07] MEDS: GEMFIBROZIL 600 MG TABLET. PO SCH ×2 (08:13→21:53)
[2017-06-07] MEDS: SPIRONOLACTONE 25 MG TABLET PO SCH (08:13)
[2017-06-07] MEDS: PREGABALIN 75 MG CAPSULE PO SCH (08:13)
[2017-06-07] MEDS: SENNOSIDES 8.6 MG TABLET PO SCH ×2 (08:13→21:58)
[2017-06-07] MEDS: TAMSULOSIN 0.4 MG CAP.ER.24H. PO SCH (08:13)
[2017-06-07] MEDS: hydrALAZINE 10 MG TABLET PO SCH ×2 (08:14→21:57)
[2017-06-07 11:00] VITALS: BP 116/49
--- NOTE | 2017-06-07 11:24 | PDOC ---
PROGRESS NOTES Chief Complaint Chief Complaint Chief complaint falls Assessment and plan 1 subarachnoid hemorrhage in the right frontal region and 2. anticoagulation with warfarin, INR is is not therapeutic #3 frequent falls #4 end-stage renal disease on hemodialysis #5 history of coronary artery disease #6 atrial fibrillation #7 diabetes mellitus with hyperglycemia X Plan #1 CT of the head reviewed stable subarachnoid hemorrhage, neurosurgery consultation pending #2 for hyperglycemia continue long-acting insulin with a sliding scale insulin #3 for physical debility he needed for skilled therapy and occupational therapy For recurrent falls I would recommend physical therapy and occupational therapy and stop her warfarin completely, discussed with the family members and patient at bedside risks of intra-cranial hemorrhage is high due to falls patient is agreeable to stop warfarin. #[address] Pelaez is following the patient 6 labs reviewed, History of Present Illness History of Present Illness Small bruises on forehead, Narayan any chest pain no fever no chills no nausea or vomiting. Vitals Vitals Vital Signs Date Time Temp Pulse Resp B/P (MAP) Pulse Ox O2 Delivery O2 Flow Rate FiO2 06/07/17 08:14 70 135/60 06/07/17 07:58 Room Air 06/07/17 07:00 97.9 20 94 97.9 06/06/17 19:48 2.0 Physical Exam General: Alert, Oriented X3, Cooperative, No acute distress Heart: Normal S1 Lungs: Clear Abdomen: Normal bowel sounds, Other (obese) Extremities: No clubbing, Other (abrasion on R 3rd and 4th fingeres with avulsion of nail on 4th) Skin: No rashes Labs LABS Laboratory Tests Test 06/06/17 23:57 06/07/17 01:25 06/07/17 07:10 06/07/17 07:46 Glucose (Fingerstick) 144 mg/dL (70-99) 164 mg/dL (70-99) Urine Collection Type Unknown Urine Color Yellow Urine Clarity Clear Urine pH 5.5 Urine Specific [place] 1.015 Urine Protein 30 mg/dL (NEG-TRACE) Urine Glucose (UA) Negative mg/dL (NEG) Urine Ketones (Stick) Negative mg/dL (NEG) Urine Blood Negative (NEG) Urine Nitrite Negative (NEG) Urine Bilirubin Negative (NEG) Urine Urobilinogen Dipstick 0.2 mg/dL (0.2 mg/dL) Urine Leukocyte Esterase Negative (NEG) Urine RBC 1-2 /HPF (0-2) Urine WBC 1-4 /HPF (0-4) Urine Squamous Epithelial Cells Few /LPF Urine Bacteria Mod /HPF (0-FEW) Urine Hyaline Casts Many /HPF Urine Mucus Mod /LPF Urine Yeast Present /HPF White Blood Count 4.5 x10^3/uL (4.0-11.0) Red Blood Count 2.85 x10^6/uL (4.30-5.70) Hemoglobin 9.2 g/dL (13.0-17.5) Hematocrit 27.9 % (39.0-53.0) Mean Corpuscular Volume 98 fL (79-100) Mean Corpuscular Hemoglobin 32 pg (25-35) Mean Corpuscular Hemoglobin Concent 33 g/dL (31-37) Red Cell Distribution Width 14.9 % (11.5-14.5) Platelet Count 165 x10^3/uL (140-400) Neutrophils (%) (Auto) 60 % (31-73) Lymphocytes (%) (Auto) 24 % (24-48) Monocytes (%) (Auto) 13 % (0-9) Eosinophils (%) (Auto) 2 % (0-3) Basophils (%) (Auto) 1 % (0-3) Neutrophils # (Auto) 2.7 x10^3uL (1.8-7.7) Lymphocytes # (Auto) 1.1 x10^3/uL (1.0-4.8) Monocytes # (Auto) 0.6 x10^3/uL (0.0-1.1) Eosinophils # (Auto) 0.1 x10^3/uL (0.0-0.7) Basophils # (Auto) 0.0 x10^3/uL (0.0-0.2) Prothrombin Time 20.4 SEC (11.7-14.0) Prothromb Time International Ratio 1.9 (0.8-1.1) Sodium Level 135 mmol/L (136-145) Potassium Level 4.3 mmol/L (3.5-5.1) Chloride Level 96 mmol/L (98-107) Carbon Dioxide Level 22 mmol/L (21-32) Anion Gap 17 (6-14) Blood Urea Nitrogen 68 mg/dL (8-26) Creatinine 7.7 mg/dL (0.7-1.3) Estimated GFR (Cockcroft-Gault) 6.8 BUN/Creatinine Ratio 9 (6-20) Glucose Level 163 mg/dL (70-99) Calcium Level 7.6 mg/dL (8.5-10.1) Total Bilirubin 0.4 mg/dL (0.2-1.0) Aspartate Amino Transf (AST/SGOT) 22 U/L (15-37) Alanine Aminotransferase (ALT/SGPT) 14 U/L (16-63) Alkaline Phosphatase 112 U/L (46-116) Total Protein 6.6 g/dL (6.4-8.2) Albumin 3.0 g/dL (3.4-5.0) Albumin/Globulin Ratio 0.8 (1.0-1.7) Comment Review of Relevant I have reviewed the following items sarah (where applicable) has been applied. Labs Laboratory Tests Test 06/06/17 23:57 06/07/17 01:25 06/07/17 07:10 06/07/17 07:46 Glucose (Fingerstick) 144 mg/dL (70-99) 164 mg/dL (70-99) Urine Collection Type Unknown Urine Color Yellow Urine Clarity Clear Urine pH 5.5 Urine Specific [place] 1.015 Urine Protein 30 mg/dL (NEG-TRACE) Urine Glucose (UA) Negative mg/dL (NEG) Urine Ketones (Stick) Negative mg/dL (NEG) Urine Blood Negative (NEG) Urine Nitrite Negative (NEG) Urine Bilirubin Negative (NEG) Urine Urobilinogen Dipstick 0.2 mg/dL (0.2 mg/dL) Urine Leukocyte Esterase Negative (NEG) Urine RBC 1-2 /HPF (0-2) Urine WBC 1-4 /HPF (0-4) Urine Squamous Epithelial Cells Few /LPF Urine Bacteria Mod /HPF (0-FEW) Urine Hyaline Casts Many /HPF Urine Mucus Mod /LPF Urine Yeast Present /HPF White Blood Count 4.5 x10^3/uL (4.0-11.0) Red Blood Count 2.85 x10^6/uL (4.30-5.70) Hemoglobin 9.2 g/dL (13.0-17.5) Hematocrit 27.9 % (39.0-53.0) Mean Corpuscular Volume 98 fL (79-100) Mean Corpuscular Hemoglobin 32 pg (25-35) Mean Corpuscular Hemoglobin Concent 33 g/dL (31-37) Red Cell Distribution Width 14.9 % (11.5-14.5) Platelet Count 165 x10^3/uL (140-400) Neutrophils (%) (Auto) 60 % (31-73) Lymphocytes (%) (Auto) 24 % (24-48) Monocytes (%) (Auto) 13 % (0-9) Eosinophils (%) (Auto) 2 % (0-3) Basophils (%) (Auto) 1 % (0-3) Neutrophils # (Auto) 2.7 x10^3uL (1.8-7.7) Lymphocytes # (Auto) 1.1 x10^3/uL (1.0-4.8) Monocytes # (Auto) 0.6 x10^3/uL (0.0-1.1) Eosinophils # (Auto) 0.1 x10^3/uL (0.0-0.7) Basophils # (Auto) 0.0 x10^3/uL (0.0-0.2) Prothrombin Time 20.4 SEC (11.7-14.0) Prothromb Time International Ratio 1.9 (0.8-1.1) Sodium Level 135 mmol/L (136-145) Potassium Level 4.3 mmol/L (3.5-5.1) Chloride Level 96 mmol/L (98-107) Carbon Dioxide Level 22 mmol/L (21-32) Anion Gap 17 (6-14) Blood Urea Nitrogen 68 mg/dL (8-26) Creatinine 7.7 mg/dL (0.7-1.3) Estimated GFR (Cockcroft-Gault) 6.8 BUN/Creatinine Ratio 9 (6-20) Glucose Level 163 mg/dL (70-99) Calcium Level 7.6 mg/dL (8.5-10.1) Total Bilirubin 0.4 mg/dL (0.2-1.0) Aspartate Amino Transf (AST/SGOT) 22 U/L (15-37) Alanine Aminotransferase (ALT/SGPT) 14 U/L (16-63) Alkaline Phosphatase 112 U/L (46-116) Total Protein 6.6 g/dL (6.4-8.2) Albumin 3.0 g/dL (3.4-5.0) Albumin/Globulin Ratio 0.8 (1.0-1.7) Laboratory Tests Test 06/06/17 23:57 06/07/17 01:25 06/07/17 07:10 06/07/17 07:46 Glucose (Fingerstick) 144 mg/dL (70-99) 164 mg/dL (70-99) Urine Collection Type Unknown Urine Color Yellow Urine Clarity Clear Urine pH 5.5 Urine Specific [place] 1.015 Urine Protein 30 mg/dL (NEG-TRACE) Urine Glucose (UA) Negative mg/dL (NEG) Urine Ketones (Stick) Negative mg/dL (NEG) Urine Blood Negative (NEG) Urine Nitrite Negative (NEG) Urine Bilirubin Negative (NEG) Urine Urobilinogen Dipstick 0.2 mg/dL (0.2 mg/dL) Urine Leukocyte Esterase Negative (NEG) Urine RBC 1-2 /HPF (0-2) Urine WBC 1-4 /HPF (0-4) Urine Squamous Epithelial Cells Few /LPF Urine Bacteria Mod /HPF (0-FEW) Urine Hyaline Casts Many /HPF Urine Mucus Mod /LPF Urine Yeast Present /HPF White Blood Count 4.5 x10^3/uL (4.0-11.0) Red Blood Count 2.85 x10^6/uL (4.30-5.70) Hemoglobin 9.2 g/dL (13.0-17.5) Hematocrit 27.9 % (39.0-53.0) Mean Corpuscular Volume 98 fL (79-100) Mean Corpuscular Hemoglobin 32 pg (25-35) Mean Corpuscular Hemoglobin Concent 33 g/dL (31-37) Red Cell Distribution Width 14.9 % (11.5-14.5) Platelet Count 165 x10^3/uL (140-400) Neutrophils (%) (Auto) 60 % (31-73) Lymphocytes (%) (Auto) 24 % (24-48) Monocytes (%) (Auto) 13 % (0-9) Eosinophils (%) (Auto) 2 % (0-3) Basophils (%) (Auto) 1 % (0-3) Neutrophils # (Auto) 2.7 x10^3uL (1.8-7.7) Lymphocytes # (Auto) 1.1 x10^3/uL (1.0-4.8) Monocytes # (Auto) 0.6 x10^3/uL (0.0-1.1) Eosinophils # (Auto) 0.1 x10^3/uL (0.0-0.7) Basophils # (Auto) 0.0 x10^3/uL (0.0-0.2) Prothrombin Time 20.4 SEC (11.7-14.0) Prothromb Time International Ratio 1.9 (0.8-1.1) Sodium Level 135 mmol/L (136-145) Potassium Level 4.3 mmol/L (3.5-5.1) Chloride Level 96 mmol/L (98-107) Carbon Dioxide Level 22 mmol/L (21-32) Anion Gap 17 (6-14) Blood Urea Nitrogen 68 mg/dL (8-26) Creatinine 7.7 mg/dL (0.7-1.3) Estimated GFR (Cockcroft-Gault) 6.8 BUN/Creatinine Ratio 9 (6-20) Glucose Level 163 mg/dL (70-99) Calcium Level 7.6 mg/dL (8.5-10.1) Total Bilirubin 0.4 mg/dL (0.2-1.0) Aspartate Amino Transf (AST/SGOT) 22 U/L (15-37) Alanine Aminotransferase (ALT/SGPT) 14 U/L (16-63) Alkaline Phosphatase 112 U/L (46-116) Total Protein 6.6 g/dL (6.4-8.2) Albumin 3.0 g/dL (3.4-5.0) Albumin/Globulin Ratio 0.8 (1.0-1.7) Medications Current Medications Sodium Chloride (Normal Saline Flush) 3 ml PRN DAILY PRN IV AFTER MEDS AND BLOOD DRAWS; Start 06/06/17 at 22:15 Ondansetron HCl (Zofran) 4 mg PRN Q6HRS PRN IV NAUSEA/VOMITING; Start 06/06/17 at 22:15 Al Hydroxide/Mg Hydroxide (Mylanta Plus Xs) 30 ml PRN Q3HRS PRN PO HEARTBURN / GAS; Start 06/06/17 at 22:15 Senna/Docusate Sodium (Senna Plus) 1 tab BID PO Last administered on 06/07/17t 08:12; Start 06/07/17 at 09:00 Alprazolam (Xanax) 0.5 mg PRN QHS PRN PO anxiety/insomnia; Start 06/06/17 at 22 :15 Folic Acid (Folic Acid) 1 mg DAILY PO Last administered on 06/07/17 08:13; Start 06/07/17 at 09:00 Furosemide (Lasix) 80 mg DAILY PO Last administered on 06/07/17 08:13; Start 06/07/17 at 09:00 Gemfibrozil (Lopid) 600 mg BID PO Last administered on 06/07/17 08:13; Start 06/07/17 at 09:00 Hydralazine HCl (Apresoline) 10 mg BID PO Last administered on 06/07/17 08:14 ; Start 06/07/17 at 09:00 Insulin Detemir (Levemir) 15 units QHS SQ ; Start 06/07/17 at 21:00 Amylase/Lipase/ Protease (Zenpep 5,000) 4 cap TIDWMEALHC PO Last administered on 06/07/17 08:13; Start 06/07/17 at 08:00 Fish Oil (Fish Oil) 1,000 mg DAILY PO Last administered on 06/07/17 08:12; Start 06/07/17 at 09:00 Pregabalin (Lyrica) 75 mg DAILY PO Last administered on 06/07/17 08:13; Start 06/07/17 at 09:00 Ropinirole HCl (Requip) 1 mg HS PO ; Start 06/07/17 at 21:00 Sennosides (Senna) 17.2 mg BID PO Last administered on 06/07/17 08:13; Start 06/07/17 at 09:00 Spironolactone (Aldactone) 25 mg DAILY PO Last administered on 06/07/17 08:13 ; Start 06/07/17 at 09:00 Tamsulosin HCl (Flomax) 0.8 mg DAILY PO Last administered on 06/07/17 08:13; Start 06/07/17 at 09:00 Pantoprazole Sodium (Protonix) 40 mg DAILYAC PO Last administered on 06/07/17 08:12; Start 06/07/17 at 07:30 Iohexol (Omnipaque 300 Mg/ml) 60 ml 1X ONCE IV ; Start 06/07/17 at 05:30; Stop 06/07/17 at 05:31; Status DC Info (Do NOT chart on this entry -- for MONITORING) 1 each PRN DAILY PRN MC SEE COMMENTS; Start 06/07/17 at 05:00; Stop 06/09/17 at 04:59 Active Scripts Active Levemir Flextouch (Insulin Detemir) 100 Unit/1 Ml Insuln.pen 15 Units SQ QHS 30 Days Novolog Flexpen (Insulin Aspart) 100 Unit/1 Ml Insuln.pen 5 Units SQ TIDAC 30 Days Lasix (Furosemide) 80 Mg Tablet 1 Tab PO DAILY Reported Hydralazine Hcl 10 Mg Tablet 1 Tab PO BID Percocet 5-325 Mg Tablet (Oxycodone/Acetaminophen) 1 Each Tablet 1 Tab PO QID Lyrica (Pregabalin) 75 Mg Capsule 1 Cap PO DAILY Lantus Solostar (Insulin Glargine,Hum.rec.anlog) 100 Unit/1 Ml Insuln.pen 24 Unit SQ QHS Humalog (Insulin Lispro) 100 Unit/1 Ml Cartridge 8 Unit SQ TIDAC Folic Acid 1 Mg Tablet 1 Tab PO DAILY Aspir 81 (Aspirin) 81 Mg Tablet. 1 Tab PO DAILY Senokot (Sennosides) 8.6 Mg Tablet 3 Tab PO BID Gemfibrozil 600 Mg Tablet 1 Tab PO BID Alprazolam 0.5 Mg Tablet 1 Tab PO TID Fish Oil 1,000 Mg Capsule ([place]-3 Fatty Acids/Fish Oil) 1 Each Capsule 4 Each PO DAILY Pancrelipase Dr 5,000 Unit Cap (Lipase/Protease/Amylase) 1 Each Capsule.dr 4 Each PO Prilosec Otc (Omeprazole Magnesium) 20 Mg Tablet. 20 Mg PO DAILY Spironolactone 25 Mg Tablet 25 Mg PO DAILY Ropinirole Hcl 1 Mg Tablet 1 Mg PO HS Tamsulosin Hcl 0.4 Mg Cap.er.24h 0.8 Mg PO DAILY Travatan Z (Travoprost) 5 Ml Drops 5 Ml OP Vitals/I & O Vital Sign - Last 24 Hours 06/06/17 06/06/17 06/06/17 06/07/17 19:48 23:05 23:30 03:30 Temp 97.3 98.0 97.7 97.3 98.0 97.7 Pulse 70 70 69 Resp 20 20 20 B/P (MAP) 123/71 (88) 108/78 (88) 120/55 (76) Pulse Ox 98 97 97 O2 Delivery Nasal Cannula Room Air Room Air Room Air O2 Flow Rate 2.0 06/07/17 06/07/17 06/07/17 07:00 07:58 08:14 Temp 97.9 97.9 Pulse 70 70 Resp 20 B/P (MAP) 135/60 (85) 135/60 Pulse Ox 94 O2 Delivery Room Air Room Air Intake and Output 06/06/17 06/06/17 06/07/17 15:00 23:00 07:00 Intake Total 300 ml Output Total 300 ml Balance 0 ml DIANA AMBROSIO MD Jun 07, 2017 11:24
--- NOTE | 2017-06-07 11:40 | PDOC2 ---
CONSULT Date of Consult Date of Consult DATE: 06/07/17 TIME: 11:35 Reason for Consult Reason for Consult: ESRD Referring Physician Referring Physician: TACO Identification/Chief Complaint Chief Complaint FALL AND RIVERA Problems: Source Source: Chart review, Patient History of Present Illness Reason for Visit: THIS IS AN 81 YR WHO HAS A HX OF FALLS. HE FELL AT HOME AND NOW HAS AN ICB-SA[facility] PER REPORT. HE IS ASYMPTOMATIC AT THIS TIME. NEURO EVAL IS ONGOING. HE HAS A HX OF ESRD AND IS ON OP HD ON . LAST HAD HIS DIALYSIS ON TUESDAY. LABS ARE C/W ESRD. HEMODYNAMICALLY HE IS STABLE. INR WAS ALSO UP DUE TO COUMADIN USE Past Medical History Cardiovascular: AFIB, CAD, CHF, HTN, IA, Hyperlipidemia Pulmonary: Pneumonia, Other GI: GERD, Peptic Ulcer disease Heme/Onc: Anemia NOS Musculoskeletal: Osteoarthritis Renal/: Chronic renal failure, Benign prostatic enlarg., Urinary Incontinence Endocrine: Diabetes, Hyperparathyroidism Past Surgical History Past Surgical History: Pacemaker, CABG, Cataract Removal, Tonsillectomy, Other Family History Family History: Heart Disease Social History ALCOHOL: none Drugs: None Lives: with Family Domestic Violence: Neg Current Medications Current Medications Current Medications Sodium Chloride (Normal Saline Flush) 3 ml PRN DAILY PRN IV AFTER MEDS AND BLOOD DRAWS; Start 06/06/17 at 22:15 Ondansetron HCl (Zofran) 4 mg PRN Q6HRS PRN IV NAUSEA/VOMITING; Start 06/06/17 at 22:15 Al Hydroxide/Mg Hydroxide (Mylanta Plus Xs) 30 ml PRN Q3HRS PRN PO HEARTBURN / GAS; Start 06/06/17 at 22:15 Senna/Docusate Sodium (Senna Plus) 1 tab BID PO Last administered on 06/07/17 08:12; Start 06/07/17 at 09:00 Alprazolam (Xanax) 0.5 mg PRN QHS PRN PO anxiety/insomnia; Start 06/06/17 at 22 :15 Folic Acid (Folic Acid) 1 mg DAILY PO Last administered on 06/07/17 08:13; Start 06/07/17 at 09:00 Furosemide (Lasix) 80 mg DAILY PO Last administered on 06/07/17 08:13; Start 06/07/17 at 09:00 Gemfibrozil (Lopid) 600 mg BID PO Last administered on 06/07/17 08:13; Start 06/07/17 at 09:00 Hydralazine HCl (Apresoline) 10 mg BID PO Last administered on 06/07/17 08:14 ; Start 06/07/17 at 09:00 Insulin Detemir (Levemir) 15 units QHS SQ ; Start 06/07/17 at 21:00 Amylase/Lipase/ Protease (Zenpep 5,000) 4 cap TIDWMEALHC PO Last administered on 06/07/17 08:13; Start 06/07/17 at 08:00 Fish Oil (Fish Oil) 1,000 mg DAILY PO Last administered on 06/07/17 08:12; Start 06/07/17 at 09:00 Pregabalin (Lyrica) 75 mg DAILY PO Last administered on 06/07/17 08:13; Start 06/07/17 at 09:00 Ropinirole HCl (Requip) 1 mg HS PO ; Start 06/07/17 at 21:00 Sennosides (Senna) 17.2 mg BID PO Last administered on 06/07/17 08:13; Start 06/07/17 at 09:00 Spironolactone (Aldactone) 25 mg DAILY PO Last administered on 06/07/17 08:13 ; Start 06/07/17 at 09:00 Tamsulosin HCl (Flomax) 0.8 mg DAILY PO Last administered on 06/07/17 08:13; Start 06/07/17 at 09:00 Pantoprazole Sodium (Protonix) 40 mg DAILYAC PO Last administered on 06/07/17 08:12; Start 06/07/17 at 07:30 Iohexol (Omnipaque 300 Mg/ml) 60 ml 1X ONCE IV ; Start 06/07/17 at 05:30; Stop 06/07/17 at 05:31; Status DC Info (Do NOT chart on this entry -- for MONITORING) 1 each PRN DAILY PRN MC SEE COMMENTS; Start 06/07/17 at 05:00; Stop 06/09/17 at 04:59 Active Scripts Active Levemir Flextouch (Insulin Detemir) 100 Unit/1 Ml Insuln.pen 15 Units SQ QHS 30 Days Novolog Flexpen (Insulin Aspart) 100 Unit/1 Ml Insuln.pen 5 Units SQ TIDAC 30 Days Lasix (Furosemide) 80 Mg Tablet 1 Tab PO DAILY Reported Hydralazine Hcl 10 Mg Tablet 1 Tab PO BID Percocet 5-325 Mg Tablet (Oxycodone/Acetaminophen) 1 Each Tablet 1 Tab PO QID Lyrica (Pregabalin) 75 Mg Capsule 1 Cap PO DAILY Lantus Solostar (Insulin Glargine,Hum.rec.anlog) 100 Unit/1 Ml Insuln.pen 24 Unit SQ QHS Humalog (Insulin Lispro) 100 Unit/1 Ml Cartridge 8 Unit SQ TIDAC Folic Acid 1 Mg Tablet 1 Tab PO DAILY Aspir 81 (Aspirin) 81 Mg Tablet.dr 1 Tab PO DAILY Senokot (Sennosides) 8.6 Mg Tablet 3 Tab PO BID Gemfibrozil 600 Mg Tablet 1 Tab PO BID Alprazolam 0.5 Mg Tablet 1 Tab PO TID Fish Oil 1,000 Mg Capsule ([place]-3 Fatty Acids/Fish Oil) 1 Each Capsule 4 Each PO DAILY Pancrelipase Dr 5,000 Unit Cap (Lipase/Protease/Amylase) 1 Each Capsule.dr 4 Each PO Prilosec Otc (Omeprazole Magnesium) 20 Mg Tablet.dr 20 Mg PO DAILY Spironolactone 25 Mg Tablet 25 Mg PO DAILY Ropinirole Hcl 1 Mg Tablet 1 Mg PO HS Tamsulosin Hcl 0.4 Mg Cap.er.24h 0.8 Mg PO DAILY Travatan Z (Travoprost) 5 Ml Drops 5 Ml OP Allergies Allergies: Coded Allergies: Wybsmue-Jsi-Sui Reductase Inhibitor (Verified Allergy, Severe, Brain swelling. , 09/18/15) Pt was taking Gabapentin with a Statin and per . "It almost killed him." gabapentin (Verified Allergy, Severe, Brain swelling, 09/18/15) Per pt had Gabapentin with a Statin and it caused brain swelling, "almost killed him." sulfamethoxazole (Verified Allergy, Intermediate, 01/01/17) trimethoprim (Verified Allergy, Intermediate, 01/01/17) morphine (Verified Adverse Reaction, Severe, 02/15/17) ROS General: YES: Fatigue, Appetite PSYCHOLOGICAL ROS: YES: Anxiety Eyes: Yes Decreased vision HEENT: YES: Heacaches, Snoring Respiratory: YES: Cough Gastrointestinal: Yes Constipation Genitourinary: YES Other (ANURIA) Musculoskeletal: Yes Muscular Weakness Neurological: Yes Weakness Skin: Yes Dry Skin Physical Exam General: Alert, Oriented X3, Cooperative HEENT: Atraumatic, PERRLA Lungs: Clear to auscultation Heart: Other (IRREGULAR) Abdomen: Normal bowel sounds, Soft Extremities: No clubbing Neuro: Normal speech, Cranial nerves 3-12 NL Psych/Mental Status: Mental status NL, Mood NL MUSCULOSKELETAL: No joint tenderness, Other (DIFFUSE MUSCLE ATROPHY) Vitals VITALS Vital Signs Date Time Temp Pulse Resp B/P (MAP) Pulse Ox O2 Delivery O2 Flow Rate FiO2 06/07/17 11:00 97.9 71 22 116/49 (71) 96 Room Air 97.9 06/06/17 19:48 2.0 Labs Labs Laboratory Tests Test 06/06/17 23:57 06/07/17 01:25 06/07/17 07:10 06/07/17 07:46 Glucose (Fingerstick) 144 mg/dL (70-99) 164 mg/dL (70-99) Urine Collection Type Unknown Urine Color Yellow Urine Clarity Clear Urine pH 5.5 Urine Specific [place] 1.015 Urine Protein 30 mg/dL (NEG-TRACE) Urine Glucose (UA) Negative mg/dL (NEG) Urine Ketones (Stick) Negative mg/dL (NEG) Urine Blood Negative (NEG) Urine Nitrite Negative (NEG) Urine Bilirubin Negative (NEG) Urine Urobilinogen Dipstick 0.2 mg/dL (0.2 mg/dL) Urine Leukocyte Esterase Negative (NEG) Urine RBC 1-2 /HPF (0-2) Urine WBC 1-4 /HPF (0-4) Urine Squamous Epithelial Cells Few /LPF Urine Bacteria Mod /HPF (0-FEW) Urine Hyaline Casts Many /HPF Urine Mucus Mod /LPF Urine Yeast Present /HPF White Blood Count 4.5 x10^3/uL (4.0-11.0) Red Blood Count 2.85 x10^6/uL (4.30-5.70) Hemoglobin 9.2 g/dL (13.0-17.5) Hematocrit 27.9 % (39.0-53.0) Mean Corpuscular Volume 98 fL (79-100) Mean Corpuscular Hemoglobin 32 pg (25-35) Mean Corpuscular Hemoglobin Concent 33 g/dL (31-37) Red Cell Distribution Width 14.9 % (11.5-14.5) Platelet Count 165 x10^3/uL (140-400) Neutrophils (%) (Auto) 60 % (31-73) Lymphocytes (%) (Auto) 24 % (24-48) Monocytes (%) (Auto) 13 % (0-9) Eosinophils (%) (Auto) 2 % (0-3) Basophils (%) (Auto) 1 % (0-3) Neutrophils # (Auto) 2.7 x10^3uL (1.8-7.7) Lymphocytes # (Auto) 1.1 x10^3/uL (1.0-4.8) Monocytes # (Auto) 0.6 x10^3/uL (0.0-1.1) Eosinophils # (Auto) 0.1 x10^3/uL (0.0-0.7) Basophils # (Auto) 0.0 x10^3/uL (0.0-0.2) Prothrombin Time 20.4 SEC (11.7-14.0) Prothromb Time International Ratio 1.9 (0.8-1.1) Sodium Level 135 mmol/L (136-145) Potassium Level 4.3 mmol/L (3.5-5.1) Chloride Level 96 mmol/L (98-107) Carbon Dioxide Level 22 mmol/L (21-32) Anion Gap 17 (6-14) Blood Urea Nitrogen 68 mg/dL (8-26) Creatinine 7.7 mg/dL (0.7-1.3) Estimated GFR (Cockcroft-Gault) 6.8 BUN/Creatinine Ratio 9 (6-20) Glucose Level 163 mg/dL (70-99) Calcium Level 7.6 mg/dL (8.5-10.1) Total Bilirubin 0.4 mg/dL (0.2-1.0) Aspartate Amino Transf (AST/SGOT) 22 U/L (15-37) Alanine Aminotransferase (ALT/SGPT) 14 U/L (16-63) Alkaline Phosphatase 112 U/L (46-116) Total Protein 6.6 g/dL (6.4-8.2) Albumin 3.0 g/dL (3.4-5.0) Albumin/Globulin Ratio 0.8 (1.0-1.7) Laboratory Tests Test 06/06/17 23:57 06/07/17 01:25 06/07/17 07:10 06/07/17 07:46 Glucose (Fingerstick) 144 mg/dL (70-99) 164 mg/dL (70-99) Urine Collection Type Unknown Urine Color Yellow Urine Clarity Clear Urine pH 5.5 Urine Specific [place] 1.015 Urine Protein 30 mg/dL (NEG-TRACE) Urine Glucose (UA) Negative mg/dL (NEG) Urine Ketones (Stick) Negative mg/dL (NEG) Urine Blood Negative (NEG) Urine Nitrite Negative (NEG) Urine Bilirubin Negative (NEG) Urine Urobilinogen Dipstick 0.2 mg/dL (0.2 mg/dL) Urine Leukocyte Esterase Negative (NEG) Urine RBC 1-2 /HPF (0-2) Urine WBC 1-4 /HPF (0-4) Urine Squamous Epithelial Cells Few /LPF Urine Bacteria Mod /HPF (0-FEW) Urine Hyaline Casts Many /HPF Urine Mucus Mod /LPF Urine Yeast Present /HPF White Blood Count 4.5 x10^3/uL (4.0-11.0) Red Blood Count 2.85 x10^6/uL (4.30-5.70) Hemoglobin 9.2 g/dL (13.0-17.5) Hematocrit 27.9 % (39.0-53.0) Mean Corpuscular Volume 98 fL (79-100) Mean Corpuscular Hemoglobin 32 pg (25-35) Mean Corpuscular Hemoglobin Concent 33 g/dL (31-37) Red Cell Distribution Width 14.9 % (11.5-14.5) Platelet Count 165 x10^3/uL (140-400) Neutrophils (%) (Auto) 60 % (31-73) Lymphocytes (%) (Auto) 24 % (24-48) Monocytes (%) (Auto) 13 % (0-9) Eosinophils (%) (Auto) 2 % (0-3) Basophils (%) (Auto) 1 % (0-3) Neutrophils # (Auto) 2.7 x10^3uL (1.8-7.7) Lymphocytes # (Auto) 1.1 x10^3/uL (1.0-4.8) Monocytes # (Auto) 0.6 x10^3/uL (0.0-1.1) Eosinophils # (Auto) 0.1 x10^3/uL (0.0-0.7) Basophils # (Auto) 0.0 x10^3/uL (0.0-0.2) Prothrombin Time 20.4 SEC (11.7-14.0) Prothromb Time International Ratio 1.9 (0.8-1.1) Sodium Level 135 mmol/L (136-145) Potassium Level 4.3 mmol/L (3.5-5.1) Chloride Level 96 mmol/L (98-107) Carbon Dioxide Level 22 mmol/L (21-32) Anion Gap 17 (6-14) Blood Urea Nitrogen 68 mg/dL (8-26) Creatinine 7.7 mg/dL (0.7-1.3) Estimated GFR (Cockcroft-Gault) 6.8 BUN/Creatinine Ratio 9 (6-20) Glucose Level 163 mg/dL (70-99) Calcium Level 7.6 mg/dL (8.5-10.1) Total Bilirubin 0.4 mg/dL (0.2-1.0) Aspartate Amino Transf (AST/SGOT) 22 U/L (15-37) Alanine Aminotransferase (ALT/SGPT) 14 U/L (16-63) Alkaline Phosphatase 112 U/L (46-116) Total Protein 6.6 g/dL (6.4-8.2) Albumin 3.0 g/dL (3.4-5.0) Albumin/Globulin Ratio 0.8 (1.0-1.7) Assessment/Plan Assessment/Plan IMP HTN DM II ICB ANEMIA ESRD AFIB PLAN NEURO EVAL AND TX START ARANESP WILL PROB NEED TO AVOID ANTICOAGULATION MOVING FORWARD DUE TO HIGH RISK OF FALL HD TODAY UF TO ARACELI LANDIN MD Jun 07, 2017 11:40
[2017-06-07] MEDS ORDERED: DEXTROSE 50% 25 GM / 50ML DISP.SYRIN. IV PRN (12:30)
[2017-06-07] MEDS: INSULIN ASPART 300 UNITS/3 ML INSULN.PEN SQ SCH ×2 (12:49→17:00)
[2017-06-07 15:00] VITALS: BP 136/52
[2017-06-07] MEDS ORDERED: PARICALCITOL 5 MCG/ML VIAL. IV SCH ×2 (18:45→18:49)
[2017-06-07] MEDS ORDERED: IRON SUCROSE COMPLEX 100 MG in IV NORMAL SALINE 100ML 100 ML IV SCH (20:00)
[2017-06-07] MEDS ORDERED: DIALYSIS PATIENT. MC PRN (20:30)
[2017-06-07] MEDS ORDERED: 0.9 % SODIUM CHLORIDE 10 ML DISP.SYRIN. IV PRN ×2 (20:30)
[2017-06-07] MEDS ORDERED: IV NORMAL SALINE 1000ML BAG 1,000 ML IV PRN (20:30)
[2017-06-07] MEDS ORDERED: DARBEPOETIN ALFA 60 MCG/0.3 ML DISP.SYRIN. SQ SCH (21:00)
[2017-06-07] MEDS ORDERED: INSULIN DETEMIR 300 UNITS/3 ML INSULN.PEN. SQ SCH (21:00)
[2017-06-07] MEDS ORDERED: rOPINIRole 1 MG TABLET. PO SCH (21:00)
[2017-06-07] MEDS ORDERED: traMADol 50 MG TABLET PO PRN (22:45)
[2017-06-07] MEDS ORDERED: ACETAMINOPHEN 325 MG TABLET. PO PRN (22:45)
[2017-06-07 23:30] VITALS: BP 117/45
[2017-06-08 03:40] VITALS: BP 125/43
[2017-06-08 06:48] VITALS: BP 120/54
[2017-06-08] MEDS: FOLIC ACID 1 MG TABLET. PO SCH (08:11)
[2017-06-08] MEDS: SPIRONOLACTONE 25 MG TABLET PO SCH (08:11)
[2017-06-08] MEDS: PANTOPRAZOLE 40 MG TABLET.DR. PO SCH (08:11)
[2017-06-08] MEDS: SENNOSIDES 8.6 MG TABLET PO SCH (08:11)
[2017-06-08] MEDS: FUROSEMIDE 80 MG TABLET. PO SCH (08:11)
[2017-06-08] MEDS: OMEGA-3 FATTY ACIDS/FISH OIL 1,000 MG CAPSULE. PO SCH (08:11)
[2017-06-08] MEDS: GEMFIBROZIL 600 MG TABLET. PO SCH (08:11)
[2017-06-08] MEDS: SENNOSIDES/DOCUSATE 8.6/50MG TABLET. PO SCH (08:11)
[2017-06-08] MEDS: LIPASE/PROTEAS/AMYLASE 5/17/27 CAPSULE.DR. PO SCH ×2 (08:11→12:39)
[2017-06-08] MEDS: PREGABALIN 75 MG CAPSULE PO SCH (08:12)
[2017-06-08] MEDS: TAMSULOSIN 0.4 MG CAP.ER.24H. PO SCH (08:12)
[2017-06-08] MEDS: hydrALAZINE 10 MG TABLET PO SCH (08:13)
[2017-06-08] MEDS: INSULIN ASPART 300 UNITS/3 ML INSULN.PEN SQ SCH ×2 (08:16→12:43)
--- NOTE | 2017-06-08 10:19 | PDOC ---
PROGRESS NOTES Chief Complaint Chief Complaint Chief complaint falls Assessment and plan 1 subarachnoid hemorrhage in the right frontal region and 2. anticoagulation with warfarin, INR is is not therapeutic #3 frequent falls #4 end-stage renal disease on hemodialysis #5 history of coronary artery disease #6 atrial fibrillation #7 diabetes mellitus with hyperglycemia X Plan #1 CT of the head reviewed stable subarachnoid hemorrhage, neurosurgery consultation pending #2 for hyperglycemia continue long-acting insulin with a sliding scale insulin #3 for physical debility Need PT/OT 4. HD tomorrow. History of Present Illness History of Present Illness Small bruises on forehead, Narayan any chest pain no fever no chills no nausea or vomiting. Vitals Vitals Vital Signs Date Time Temp Pulse Resp B/P (MAP) Pulse Ox O2 Delivery O2 Flow Rate FiO2 06/08/17 08:13 70 120/54 06/08/17 06:48 98.2 16 96 Nasal Cannula 2.0 98.2 Physical Exam General: Alert, Oriented X3, Cooperative Heart: Normal S1 Lungs: Clear Abdomen: Normal bowel sounds, Soft Extremities: No clubbing Skin: No rashes Labs LABS Laboratory Tests Test 06/07/17 11:54 06/07/17 15:54 06/07/17 21:59 06/08/17 07:06 Glucose (Fingerstick) 366 mg/dL (70-99) 364 mg/dL (70-99) 226 mg/dL (70-99) 161 mg/dL (70-99) Comment Review of Relevant I have reviewed the following items sarah (where applicable) has been applied. Labs Laboratory Tests Test 06/06/17 23:57 06/07/17 01:25 06/07/17 07:10 06/07/17 07:46 Glucose (Fingerstick) 144 mg/dL (70-99) 164 mg/dL (70-99) Urine Collection Type Unknown Urine Color Yellow Urine Clarity Clear Urine pH 5.5 Urine Specific [place] 1.015 Urine Protein 30 mg/dL (NEG-TRACE) Urine Glucose (UA) Negative mg/dL (NEG) Urine Ketones (Stick) Negative mg/dL (NEG) Urine Blood Negative (NEG) Urine Nitrite Negative (NEG) Urine Bilirubin Negative (NEG) Urine Urobilinogen Dipstick 0.2 mg/dL (0.2 mg/dL) Urine Leukocyte Esterase Negative (NEG) Urine RBC 1-2 /HPF (0-2) Urine WBC 1-4 /HPF (0-4) Urine Squamous Epithelial Cells Few /LPF Urine Bacteria Mod /HPF (0-FEW) Urine Hyaline Casts Many /HPF Urine Mucus Mod /LPF Urine Yeast Present /HPF White Blood Count 4.5 x10^3/uL (4.0-11.0) Red Blood Count 2.85 x10^6/uL (4.30-5.70) Hemoglobin 9.2 g/dL (13.0-17.5) Hematocrit 27.9 % (39.0-53.0) Mean Corpuscular Volume 98 fL (79-100) Mean Corpuscular Hemoglobin 32 pg (25-35) Mean Corpuscular Hemoglobin Concent 33 g/dL (31-37) Red Cell Distribution Width 14.9 % (11.5-14.5) Platelet Count 165 x10^3/uL (140-400) Neutrophils (%) (Auto) 60 % (31-73) Lymphocytes (%) (Auto) 24 % (24-48) Monocytes (%) (Auto) 13 % (0-9) Eosinophils (%) (Auto) 2 % (0-3) Basophils (%) (Auto) 1 % (0-3) Neutrophils # (Auto) 2.7 x10^3uL (1.8-7.7) Lymphocytes # (Auto) 1.1 x10^3/uL (1.0-4.8) Monocytes # (Auto) 0.6 x10^3/uL (0.0-1.1) Eosinophils # (Auto) 0.1 x10^3/uL (0.0-0.7) Basophils # (Auto) 0.0 x10^3/uL (0.0-0.2) Prothrombin Time 20.4 SEC (11.7-14.0) Prothromb Time International Ratio 1.9 (0.8-1.1) Sodium Level 135 mmol/L (136-145) Potassium Level 4.3 mmol/L (3.5-5.1) Chloride Level 96 mmol/L (98-107) Carbon Dioxide Level 22 mmol/L (21-32) Anion Gap 17 (6-14) Blood Urea Nitrogen 68 mg/dL (8-26) Creatinine 7.7 mg/dL (0.7-1.3) Estimated GFR (Cockcroft-Gault) 6.8 BUN/Creatinine Ratio 9 (6-20) Glucose Level 163 mg/dL (70-99) Calcium Level 7.6 mg/dL (8.5-10.1) Total Bilirubin 0.4 mg/dL (0.2-1.0) Aspartate Amino Transf (AST/SGOT) 22 U/L (15-37) Alanine Aminotransferase (ALT/SGPT) 14 U/L (16-63) Alkaline Phosphatase 112 U/L (46-116) Total Protein 6.6 g/dL (6.4-8.2) Albumin 3.0 g/dL (3.4-5.0) Albumin/Globulin Ratio 0.8 (1.0-1.7) Test 06/07/17 11:54 06/07/17 15:54 06/07/17 21:59 06/08/17 07:06 Glucose (Fingerstick) 366 mg/dL (70-99) 364 mg/dL (70-99) 226 mg/dL (70-99) 161 mg/dL (70-99) Laboratory Tests Test 06/07/17 11:54 06/07/17 15:54 06/07/17 21:59 06/08/17 07:06 Glucose (Fingerstick) 366 mg/dL (70-99) 364 mg/dL (70-99) 226 mg/dL (70-99) 161 mg/dL (70-99) Medications Current Medications Sodium Chloride (Normal Saline Flush) 3 ml PRN DAILY PRN IV AFTER MEDS AND BLOOD DRAWS; Start 06/06/17 at 22:15 Ondansetron HCl (Zofran) 4 mg PRN Q6HRS PRN IV NAUSEA/VOMITING Last administered on 06/07/17t 13:36; Start 06/06/17 at 22:15 Al Hydroxide/Mg Hydroxide (Mylanta Plus Xs) 30 ml PRN Q3HRS PRN PO HEARTBURN / GAS; Start 06/06/17 at 22:15 Senna/Docusate Sodium (Senna Plus) 1 tab BID PO Last administered on 06/08/17 08:11; Start 06/07/17 at 09:00 Alprazolam (Xanax) 0.5 mg PRN QHS PRN PO anxiety/insomnia; Start 06/06/17 at 22 :15 Folic Acid (Folic Acid) 1 mg DAILY PO Last administered on 06/08/17 08:11; Start 06/07/17 at 09:00 Furosemide (Lasix) 80 mg DAILY PO Last administered on 06/08/17 08:11; Start 06/07/17 at 09:00 Gemfibrozil (Lopid) 600 mg BID PO Last administered on 06/08/17 08:11; Start 06/07/17 at 09:00 Hydralazine HCl (Apresoline) 10 mg BID PO Last administered on 06/08/17 08:13 ; Start 06/07/17 at 09:00 Insulin Detemir (Levemir) 15 units QHS SQ Last administered on 06/07/17 22:03 ; Start 06/07/17 at 21:00 Amylase/Lipase/ Protease (Zenpep 5,000) 4 cap TIDWMEALHC PO Last administered on 06/08/17 08:11; Start 06/07/17 at 08:00 Fish Oil (Fish Oil) 1,000 mg DAILY PO Last administered on 06/08/17 08:11; Start 06/07/17 at 09:00 Pregabalin (Lyrica) 75 mg DAILY PO Last administered on 06/08/17 08:12; Start 06/07/17 at 09:00 Ropinirole HCl (Requip) 1 mg HS PO Last administered on 06/07/17 21:57; Start 06/07/17 at 21:00 Sennosides (Senna) 17.2 mg BID PO Last administered on 06/08/17 08:11; Start 06/07/17 at 09:00 Spironolactone (Aldactone) 25 mg DAILY PO Last administered on 06/08/17 08:11 ; Start 06/07/17 at 09:00 Tamsulosin HCl (Flomax) 0.8 mg DAILY PO Last administered on 06/08/17 08:12; Start 06/07/17 at 09:00 Pantoprazole Sodium (Protonix) 40 mg DAILYAC PO Last administered on 06/08/17 08:11; Start 06/07/17 at 07:30 Iohexol (Omnipaque 300 Mg/ml) 60 ml 1X ONCE IV ; Start 06/07/17 at 05:30; Stop 06/07/17 at 05:31; Status DC Info (Do NOT chart on this entry -- for MONITORING) 1 each PRN DAILY PRN MC SEE COMMENTS; Start 06/07/17 at 05:00; Stop 06/09/17 at 04:59 Darbepoetin Joshua (Aranesp) 60 mcg WEEKLYHS SQ Last administered on 06/07/17 21 :53; Start 06/07/17 at 21:00 Insulin Aspart (NovoLOG) 0-9 UNITS TIDWMEALS SQ Last administered on 06/08/17 08:16; Start 06/07/17 at 12:30 Dextrose (Dextrose 50%-Water Syringe) 12.5 gm PRN Q15MIN PRN IV SEE COMMENTS; Start 06/07/17 at 12:30 Paricalcitol (Zemplar) 5 mcg 3X/WEEK IV ; Start 06/07/17 at 18:45; Stop at 18:49; Status DC Paricalcitol (Zemplar) 5 mcg QTUTHSA IV Last administered on 06/07/17 20:49; Start 06/07/17 at 18:49 Iron Sucrose 100 mg/Sodium Chloride 105 ml @ 55 mls/hr QTU IV Last administered on 06/07/17 20:25; Start 06/07/17 at 20:00 Sodium Chloride (Normal Saline Flush) 10 ml 1X PRN PRN IV AP 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; Start 06/07/17 at 20:30; Stop 06/08/17 at 20:29 Sodium Chloride (Normal Saline Flush) 10 ml 1X PRN PRN IV PINION SORTER 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; Start 06/07/17 at 20:30; Stop 06/08/17 at 20:29 Sodium Chloride 1,000 ml @ 400 mls/hr Q2H30M PRN IV PATENCY; Start 06/07/17 at 20:30; Stop 06/08/17 at 08:29; Status DC Info (PHARMACY MONITORING -- do not chart) 1 each PRN DAILY PRN MC SEE COMMENTS ; Start 06/07/17 at 20:30 Acetaminophen (Tylenol) 650 mg PRN Q6HRS PRN PO HEADACHE Last administered on 22:48; Start 06/07/17 at 22:45 Tramadol HCl (Ultram) 50 mg PRN BID PRN PO MODERATE PAIN; Start 06/07/17 at 22: 45 Active Scripts Active Levemir Flextouch (Insulin Detemir) 100 Unit/1 Ml Insuln.pen 15 Units SQ QHS 30 Days Novolog Flexpen (Insulin Aspart) 100 Unit/1 Ml Insuln.pen 5 Units SQ TIDAC 30 Days Lasix (Furosemide) 80 Mg Tablet 1 Tab PO DAILY Reported Hydralazine Hcl 10 Mg Tablet 1 Tab PO BID Percocet 5-325 Mg Tablet (Oxycodone/Acetaminophen) 1 Each Tablet 1 Tab PO QID Lyrica (Pregabalin) 75 Mg Capsule 1 Cap PO DAILY Lantus Solostar (Insulin Glargine,Hum.rec.anlog) 100 Unit/1 Ml Insuln.pen 24 Unit SQ QHS Humalog (Insulin Lispro) 100 Unit/1 Ml Cartridge 8 Unit SQ TIDAC Folic Acid 1 Mg Tablet 1 Tab PO DAILY Aspir 81 (Aspirin) 81 Mg Tablet.dr 1 Tab PO DAILY Senokot (Sennosides) 8.6 Mg Tablet 3 Tab PO BID Gemfibrozil 600 Mg Tablet 1 Tab PO BID Alprazolam 0.5 Mg Tablet 1 Tab PO TID Fish Oil 1,000 Mg Capsule ([place]-3 Fatty Acids/Fish Oil) 1 Each Capsule 4 Each PO DAILY Pancrelipase Dr 5,000 Unit Cap (Lipase/Protease/Amylase) 1 Each Capsule.dr 4 Each PO Prilosec Otc (Omeprazole Magnesium) 20 Mg Tablet.dr 20 Mg PO DAILY Spironolactone 25 Mg Tablet 25 Mg PO DAILY Ropinirole Hcl 1 Mg Tablet 1 Mg PO HS Tamsulosin Hcl 0.4 Mg Cap.er.24h 0.8 Mg PO DAILY Travatan Z (Travoprost) 5 Ml Drops 5 Ml OP Vitals/I & O Vital Sign - Last 24 Hours 06/07/17 06/07/17 06/07/17 06/07/17 11:00 15:00 20:00 21:57 Temp 97.9 97.9 97.9 97.9 Pulse 71 71 87 Resp 22 20 B/P (MAP) 116/49 (71) 136/52 (80) 135/49 Pulse Ox 96 96 O2 Delivery Room Air Room Air Room Air 06/07/17 06/08/17 06/08/17/12/17 23:30 03:40 06:48 08:13 Temp 99.4 98.2 98.2 99.4 98.2 98.2 Pulse 85 70 70 70 Resp 18 18 16 B/P (MAP) 117/45 (69) 125/43 (70) 120/54 (76) 120/54 Pulse Ox 93 95 96 O2 Delivery Nasal Cannula Nasal Cannula Nasal Cannula O2 Flow Rate 2.0 2.0 2.0 Intake and Output 06/07/17 06/07/17 06/08/17 15:00 23:00 07:00 Intake Total 500 ml 450 ml Output Total 825 ml 150 ml Balance -325 ml 300 ml DIANA AMBROSIO MD Jun 08, 2017 10:19
[2017-06-08 10:46] VITALS: BP 129/54
--- NOTE | 2017-06-08 11:56 | PDOC ---
Renal-Progress Notes Subjective Notes Notes FEELING BETTER History of Present Illness Hx of present illness STABLE Vitals Vitals Vital Signs Date Time Temp Pulse Resp B/P (MAP) Pulse Ox O2 Delivery O2 Flow Rate FiO2 06/08/17 10:46 98.3 70 17 129/54 (79) 97 Nasal Cannula 2.0 98.3 Weight Weight [ ] I.O. Intake and Output Intake and Output 06/08/17 07:00 Intake Total 950 ml Output Total 975 ml Balance -25 ml Intake Oral 950 ml Output Urine Total 975 ml Labs Labs Laboratory Tests Test 06/07/17 15:54 06/07/17 21:59 06/08/17 07:06 06/08/17 11:35 Glucose (Fingerstick) 364 mg/dL (70-99) 226 mg/dL (70-99) 161 mg/dL (70-99) 267 mg/dL (70-99) Review of Systems Constitutional: yes: weakness, alert, oriented Ears/Nose/Throat: Yes: no symptom reported Eyes: Yes: no symptom reported Cardiovascular: Yes no symptom reported Gastrointestional: Yes: no symptom reported Genitourinary: Yes: no symptom reported Musculoskeletal: Yes: muscle stiffness Skin: Yes no symptom reported Psychiatric/Neurological: Yes: weakness Endocrine: Yes: no symptom reported Physical Exam General Appearance: no apparent distress Skin: warm Respiratory: bilateral CTA Heart: S1S2 Abdomen: soft, bowel sounds present Genitourinary: bladder flat Extremities: pulses present Neurology: alert Musculoskeletal: Osteoarthritis Assessment Assessment IMP ESRD ANEMIA COAGULOPATHY HTN ICB-SAH DM II PLAN HD TOMORROW NS EVAL CONT ARACELI NIETO MD Jun 08, 2017 11:56
--- NOTE | 2017-06-08 12:24 | PDOC3 ---
Discharge Summary* Final Diagnosis 1 subarachnoid hemorrhage in the right frontal region 2. anticoagulation with warfarin, INR is is not therapeutic #3 frequent falls #4 end-stage renal disease on hemodialysis #5 history of coronary artery disease #6 atrial fibrillation #7 diabetes mellitus with hyperglycemia X Brief hospital course: A 81-year-old male patient admitted to the hospital for a subarachnoid hemorrhage after sustaining a fall, has been transferred from [facility] for neurosurgery evaluation. Repeat CT of the head did not show any worsening of the hemorrhage, clinically patient is doing better denies any nausea vomiting or any headaches. He is working with physical therapy due to his physical debility patient needs home health services. Patient declined to go to rehabilitation facility. I did have extensive discussion with the patient and his at bedside, I will hold his warfarin at this time due to increased fall risk and worsening of his bleeding. 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 Discharge exam please see my progress note Discharge condition stable Discharge follow-up with primary care doctor and cardiology Discharge diet renal diet Total time spent for discharge is a 20 minutes Brief Hospital Course Mr. Morse is a 81 old [sex] who presented with [ ] CONDITION AT DISCHARGE: Improved Scheduled Alprazolam (Alprazolam), 1 TAB PO TID, (Reported) Aspirin (Aspir 81), 1 TAB PO DAILY, (Reported) Folic Acid (Folic Acid), 1 TAB PO DAILY, (Reported) Furosemide (Lasix), 1 TAB PO DAILY Gemfibrozil (Gemfibrozil), 1 TAB PO BID, (Reported) Hydralazine Hcl (Hydralazine Hcl), 1 TAB PO BID, (Reported) Insulin Aspart (Novolog Flexpen), 5 UNITS SQ TIDAC Insulin Detemir (Levemir Flextouch), 15 UNITS SQ QHS Insulin Glargine,Hum.rec.anlog (Lantus Solostar), 24 UNIT SQ QHS, (Reported) Insulin Lispro (Humalog), 8 UNIT SQ TIDAC, (Reported) [place]-3 Fatty Acids/Fish Oil (Fish Oil 1,000 Mg Capsule), 4 EACH PO DAILY, ( Reported) Omeprazole Magnesium (Prilosec Otc), 20 MG PO DAILY, (Reported) Oxycodone/Apap 5-325 (Percocet 5-325 Mg Tablet), 1 TAB PO QID, (Reported) Pregabalin (Lyrica), 1 CAP PO DAILY, (Reported) Ropinirole Hcl (Ropinirole Hcl), 1 MG PO HS, (Reported) Sennosides (Senokot), 3 TAB PO BID, (Reported) Spironolactone (Spironolactone), 25 MG PO DAILY, (Reported) Tamsulosin Hcl (Tamsulosin Hcl), 0.8 MG PO DAILY, (Reported) Miscellaneous Medications Lipase/Protease/Amylase (Pancrelipase Dr 5,000 Unit Cap), 4 EACH PO, (Reported) Travoprost (Travatan Z), 5 ML OP, (Reported) Discontinued Medications Calcitriol (Calcitriol), 0.25 MCG PO DAILY, (Reported) Difluprednate (Durezol), 1 DROP OS QID, (Reported) Dorzolamide Hcl/Timolol Maleat (Dorzolamide-Timolol Eye Drops), 1 DROP RIGHTEYE BID, (Reported) Ferrous Sulfate (Ferosul), 325 MG PO, (Reported) Folic Acid (Folic Acid), 2 MG PO TID, (Reported) Latanoprost (Latanoprost), 1 DROP EACHEYE QHS, (Reported) Metoprolol Tartrate (Metoprolol Tartrate), 1 TAB PO BID, (Reported) Morphine Sulfate (Morphine Sulfate Er), 60 MG PO, (Reported) [place]/Polymyx B Sulf/Dexameth (Flqaar-Mypxj-Bkfbxqa Eye Ointm), 3.5 GM OS QHS, ( Reported) Pregabalin (Lyrica), 1 CAP PO BID, (Reported) Warfarin Sodium (Warfarin Sodium), 1 TAB PO DAILY, (Reported) Time Spent Total time spent with patient 20 minutes for coordination of care, counseling, and education. IDANA AMBROSIO MD Jun 08, 2017 12:24
[2017-06-08 18:11] LABS: HEP A IGM ABDY Negative (Negative)
== END 2017-06-08 16:05 | disposition home health service (06) | DRG 85 ==
LOC: 6 SOUTH 19:32
PROVIDERS: ADMIT Internal Medicine Hematology & Oncology; ATTEND Internal Medicine Hematology & Oncology
PROC: 5A1D00Z (ICD-10-PCS; principal; 2017-06-07)
DX: S06.6X0A Traumatic subarachnoid hemorrhage without loss of consciousness, initial encounter (principal); N18.6 End stage renal disease; I13.2 Hypertensive heart and chronic kidney disease with heart failure and with stage 5 chronic kidney disease, or end stage renal disease; D68.9 Coagulation defect, unspecified; I25.10 Atherosclerotic heart disease of native coronary artery without angina pectoris; E78.5 Hyperlipidemia, unspecified; E11.65 Type 2 diabetes mellitus with hyperglycemia; E11.22 Type 2 diabetes mellitus with diabetic chronic kidney disease; I48.91 Unspecified atrial fibrillation; D64.9 Anemia, unspecified; K21.9 Gastro-esophageal reflux disease without esophagitis; E21.3 Hyperparathyroidism, unspecified; I50.9 Heart failure, unspecified; S00.83XA Contusion of other part of head, initial encounter; M19.90 Unspecified osteoarthritis, unspecified site; R29.6 Repeated falls; T45.515A Adverse effect of anticoagulants, initial encounter; Z79.01 Long term (current) use of anticoagulants; Z79.4 Long term (current) use of insulin; Z79.82 Long term (current) use of aspirin; Z91.81 History of falling; Z95.1 Presence of aortocoronary bypass graft; Z99.2 Dependence on renal dialysis; Z90.89 Acquired absence of other organs; W19.XXXA Unspecified fall, initial encounter; Y92.009 Unspecified place in unspecified non-institutional (private) residence as the place of occurrence of the external cause; Y93.89 Activity, other specified; Y99.8 Other external cause status; Z87.11 Personal history of peptic ulcer disease; Z87.01 Personal history of pneumonia (recurrent)
CPT/HCPCS: 36415; 70450; 80053; 80074; 81001; 82962; 85027; 85610; 93005; A6539; J0881; J1756; J1815; J2405; J2501

== ENCOUNTER 2017-06-20 16:35 | Inpatient (IN) | payer MEDICARE, BC ==
[~2017-06-20] VITALS: Ht 162.6 cm; Wt 96.8 kg
[~2017-06-20 16:35] MED LIST changes: +HYDR-2867 PO; +INSU100C SQ; +INSU100I13 SQ; +OXYC-323 PO
[2017-06-20] MEDS ORDERED: IV NORMAL SALINE 500ML BAG 500 ML IV ONE (17:45)
--- NOTE | 2017-06-20 17:47 | PHYS DOC ---
Past Medical History Past Medical History: Diabetes-Type II, Heart Disease, Hypertension, [place] Past Surgical History: Coronary Bypass Surgery, Other Additional Past Surgical Histo: L shoulder torn ligament,[id number],pain stimulator, PACER, dialysis, Alcohol Use: Occasionally Drug Use: None Adult General Chief Complaint Chief Complaint: HYPOTENSION HPI HPI Patient is a 81 year old male brought by EMS from his doctor's office with the complaint of hypotension. History is from the patient and his . The patient is a dialysis patient. He has been having trouble with hypotension for the last few weeks. His doctor has decreased his blood pressure medicine but he remains hypotensive. Patient's tells me that sometimes when he arrives for dialysis , sometimes his blood pressure is too low and they have to have him stand up and walk around to get his blood pressure up before they can dialyze him. Coincidentally, I saw this patient yesterday at [facility] emergency Department after he had a fall and twisted his left ankle. X-rays were negative for fracture. The patient's blood pressure was in the 80s when he arrived but without treatment the blood pressure came up to systolic of 109 and he was able to be discharged without treatment for hypertension yesterday. Today, the patient's physical therapist came to the house and they state that his blood pressure was 67. They actually got him into the patient's car and he was driven to the doctor's office where he got out and went in to be seen in his blood pressure was still significantly low sodium they called EMS and EMS brought him in here. This morning he took his dose of hydralazine 10 mg and he took a one half of some type of blood pressure medicine, cannot remember what that one was. These are both prescribed for blood pressure. Patient was previously on warfarin but after he had a fall and a head injury with a subarachnoid hemorrhage, he was taken off warfarin and is currently on no blood thinners. Denies recent vomiting or diarrhea. He hasn't had a bowel movement today which is unusual for him, states that he feels really full of gas. He's had no bloody stools or black stools. No fever or chills. No infection that they know of. He dialyzes on Tuesday, , Tuesday. He did dialyze on Tuesday like he was supposed to. His next dialysis session is tomorrow, Tuesday. PCP Dr. Vail Review of Systems Review of Systems Constitutional: Denies fever or chills [] HENT: Denies nasal congestion or sore throat [] Respiratory: Denies cough or shortness of breath [] Cardiovascular: Denies chest pain GI: Denies vomiting or diarrhea, denies bloody stools. Complains of abdomen distention and bloating, feels like he needs to pass gas, he is able to pass gas. : He does not make urine Musculoskeletal: Denies back pain or joint pain [] Integument: Denies rash or skin lesions [] Neurologic: Denies headache, focal weakness or sensory changes [] Current Medications Current Medications Current Medications Medications (Trade) Dose Ordered Sig/Tracy Start Time Stop Time Status Last Admin Dose Admin Info (Do NOT chart on this entry -- for MONITORING) 1 each PRN DAILY PRN 06/20/17 18:00 06/22/17 17:59 Iohexol (Omnipaque 300 Mg/ml) 60 ml 1X ONCE 06/20/17 18:00 06/20/17 18:01 DC 06/20/17 18:08 60 ML Sodium Chloride 500 ml @ 500 mls/hr 1X ONCE 06/20/17 17:45 06/20/17 18:44 DC 06/20/17 17:47 500 MLS/HR Allergies Allergies Allergies Coded Allergies Type Severity Reaction Last Updated Verified Fwvmuet-Tax-Ssa Reductase Inhibitor Allergy Severe Brain swelling. 09/18/15 Yes gabapentin Allergy Severe Brain swelling 09/18/15 Yes sulfamethoxazole Allergy Intermediate 01/01/17 Yes trimethoprim Allergy Intermediate 01/01/17 Yes morphine Adverse Reaction Severe 02/15/17 Yes Physical Exam Physical Exam Constitutional: Well developed, well nourished, no acute distress, non-toxic appearance. Alert, dry, mentating normally, does not appear clinically hypotensive. Blood pressure 80/37 HENT: Normocephalic, atraumatic, bilateral external ears normal, oropharynx moist, no oral exudates, nose normal. [] Eyes: conjunctiva normal, no discharge. [] Neck: Normal range of motion, no stridor. [] Cardiovascular:Heart rate regular rhythm, no murmur [] Lungs & Thorax: Bilateral breath sounds clear to auscultation [] Abdomen: Distended. Increased tympany. Increased bowel sounds. No mass, no pulsatile mass, no bruit. Ecchymosis consistent with insulin administration, no abnormal skin findings. Abdomen entirely nontender to palpation. No rebound or guarding. Skin: Warm, dry, no erythema, no rash. [] Extremities: No tenderness, no cyanosis, no clubbing, ROM intact, no edema. [] Neurologic: Alert and oriented X 3, normal motor function, normal sensory function, no focal deficits noted. [] Current Patient Data Vital Signs Vital Signs Date Time Temp Pulse Resp B/P (MAP) Pulse Ox O2 Delivery O2 Flow Rate FiO2 06/20/17 19:26 70 18 80/44 (56) 97 Room Air 06/20/17 16:41 99.0 99.0 Lab Values Laboratory Tests Test 06/20/17 17:30 White Blood Count 8.5 x10^3/uL (4.0-11.0) Red Blood Count 2.72 x10^6/uL (4.30-5.70) L Hemoglobin 8.9 g/dL (13.0-17.5) L Hematocrit 27.9 % (39.0-53.0) L Mean Corpuscular Volume 102 fL (79-100) H Mean Corpuscular Hemoglobin 33 pg (25-35) Mean Corpuscular Hemoglobin Concent 32 g/dL (31-37) Red Cell Distribution Width 17.1 % (11.5-14.5) H Platelet Count 157 x10^3/uL (140-400) Neutrophils (%) (Auto) 71 % (31-73) Lymphocytes (%) (Auto) 15 % (24-48) L Monocytes (%) (Auto) 10 % (0-9) H Eosinophils (%) (Auto) 4 % (0-3) H Basophils (%) (Auto) 1 % (0-3) Neutrophils # (Auto) 6.0 x10^3uL (1.8-7.7) Lymphocytes # (Auto) 1.3 x10^3/uL (1.0-4.8) Monocytes # (Auto) 0.9 x10^3/uL (0.0-1.1) Eosinophils # (Auto) 0.3 x10^3/uL (0.0-0.7) Basophils # (Auto) 0.1 x10^3/uL (0.0-0.2) Prothrombin Time 15.7 SEC (11.7-14.0) H Prothrombin Time INR 1.3 (0.8-1.1) H D-Dimer ([place]lin) 1.87 ug/mlFEU (0.00-0.50) H Sodium Level 134 mmol/L (136-145) L Potassium Level 4.6 mmol/L (3.5-5.1) Chloride Level 97 mmol/L (98-107) L Carbon Dioxide Level 22 mmol/L (21-32) Anion Gap 15 (6-14) H Blood Urea Nitrogen 67 mg/dL (8-26) H Creatinine 9.0 mg/dL (0.7-1.3) H Estimated GFR (Cockcroft-Gault) 5.7 Glucose Level 159 mg/dL (70-99) H Calcium Level 8.3 mg/dL (8.5-10.1) L Magnesium Level 2.0 mg/dL (1.8-2.4) Total Bilirubin 0.5 mg/dL (0.2-1.0) Direct Bilirubin 0.2 mg/dL (0.0-0.2) Aspartate Amino Transferase (AST) 19 U/L (15-37) Alanine Aminotransferase (ALT) 16 U/L (16-63) Alkaline Phosphatase 104 U/L (46-116) Creatine Kinase 96 U/L (39-308) Creatine Kinase MB (Mass) 1.8 ng/mL (0.0-3.6) Creatine Kinase MB Relative Index 1.9 % (0-4) Troponin I Quantitative < 0.017 ng/mL (0.000-0.055) Total Protein 7.3 g/dL (6.4-8.2) Albumin 3.0 g/dL (3.4-5.0) L Laboratory Tests 06/20/17 17:30 Laboratory Tests 06/20/17 17:30 EKG EKG 12-lead EKG read by me. Sinus rhythm. Heart rate 70. Rt bundle branch block. There are no acute ST or T wave changes indicative of ischemia or infarction. No STEMI. 1749 [] Radiology/Procedures Radiology/Procedures Scan of the abdomen and pelvis read by the radiologist. Distention of the stomach, small intestine, and colon with air, I clearly ileus, and also constipation. There are no findings to explain hypotension. Course & Med Decision Making Course & Med Decision Making Pertinent Labs and Imaging studies reviewed. (See chart for details) 81-year-old male sent by EMS from the doctor's office for hypotension. Although he has previously been on antihypertensive medicine, the patient for several weeks has been having increasing hypotension, and his blood pressure medicine has been cut down. In talking with the , it seems likely that he is getting his medication as intended by his doctor, she seems to be managing it well. Although, she is not able to recall what the one half tablet daily that he is getting was. Med records brought by her show that he is getting hydralazine 10 mg daily in the morning and parental lactone 25 mg daily in the morning, she does not see a record of the "one half tablet" that he is supposed to be getting and did get this morning. Patient was given 500 mL bolus of normal saline for hypotension. He is a dialysis patient but he did not clinically appear to be fluid overloaded and I felt that would be safe. His blood pressure came up to 82/45 but never did get to a level near normotensive. The patient remained stable and comfortable in the ED. Labs reveal some mild anemia which I don't think is out of line for a dialysis patient and is not lower than what he had before. I did not find any other cause for the hypotension. He is significantly hypotensive and I believe not safe for discharge. We will admit the patient to let his antihypertensives wear off and see how his blood pressure does after that. I discussed the case with Dr. kennedy, [facility] medicine. He will admit the patient. I wrote bridge orders. [] Dragon Disclaimer Dragon Disclaimer This electronic medical record was generated, in whole or in part, using a voice recognition dictation system. Departure Departure Impression: Primary Impression: Hypotension Disposition: ADMITTED INPATIENT Admitting Physician: Rosalia Kennedy Condition: GUARDED Referrals: STEFANIE VAIL MD (PCP) NORMA GODOY MD Jun 20, 2017 17:47
[2017-06-20 17:55] LABS: BASO # 0.1 x10^3/uL (0.0-0.2); BASO % 1 % (0-3); EOS % 4 % (0-3); HEMATOCRIT 27.9 % (39.0-53.0); HEMOGLOBIN 8.9 g/dL (13.0-17.5); LYMPH # 1.3 x10^3/uL (1.0-4.8); LYMPH % 15 % (24-48); MEAN CORPUSCULAR HEMOGLOBIN 33 pg (25-35); MEAN CORPUSCULAR HGB CONC 32 g/dL (31-37); MEAN CORPUSCULAR VOLUME 102 fL (79-100); MONO % 10 % (0-9); NEUT % 71 % (31-73); PLATELET COUNT 157 x10^3/uL (140-400); RED BLOOD COUNT 2.72 x10^6/uL (4.30-5.70); RED CELL DISTRIBUTION WIDTH 17.1 % (11.5-14.5); WHITE BLOOD COUNT 8.5 x10^3/uL (4.0-11.0)
[2017-06-20] MEDS ORDERED: IOHEXOL 300 MG/ML 75 ML VIAL IV ONE (18:00)
[2017-06-20] MEDS ORDERED: CONTRAST GIVEN MC PRN (18:00)
[2017-06-20 18:05] LABS: CALCIUM 8.3 mg/dL (8.5-10.1); GFR 5.7; INR 1.3 (0.8-1.1); POTASSIUM 4.6 mmol/L (3.5-5.1); PROTHROMBIN TIME PATIENT 15.7 SEC (11.7-14.0)
[2017-06-20 18:11] LABS: DIRECT BILIRUBIN 0.2 mg/dL (0.0-0.2); TOTAL BILIRUBIN 0.5 mg/dL (0.2-1.0); TOTAL PROTEIN 7.3 g/dL (6.4-8.2)
[2017-06-20 18:18] LABS: CKMB MASS 1.8 ng/mL (0.0-3.6)
--- NOTE | 2017-06-20 19:53 | RAD ---
EXAM: CT ABDOMEN/PELVIS WITH CONTRAST. HISTORY: Hypotension, abdominal pain and distention. TECHNIQUE: Computed tomography of the abdomen and pelvis was performed after the intravenous administration of 60 mL Omnipaque 300. COMPARISON: None. FINDINGS: Lung windows through the visualized portions of the bases reveal pacemaker leads and changes of coronary artery bypass grafting. Bone windows reveal no suspicious lesions. There are multiple chronic left posterior lateral rib fractures. A spinal stimulator generator is seen along the left flank. Its leads are within the mid/lower thoracic central canal posteriorly. There are calcified granulomas in the spleen. The liver, gallbladder, pancreas, adrenal glands and kidneys are unremarkable. There are no pathologically enlarged lymph nodes. The bladder is decompressed but demonstrates diffuse wall thickening. The prostate is not enlarged for patient age. The appendix is not inflamed. There is moderate gaseous distention of the colon which contains a moderate amount of stool. The small bowel also demonstrates mild diffuse gaseous distention. The stomach is mildly distended. 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 There is no ascites. There is trace presacral edema. There is no drainable collection. IMPRESSION: 1. Moderate distention of the stomach, colon and small bowel. This most likely indicate ileus. At least mild constipation is also likely present. 2. Diffuse bladder wall thickening. Correlate for chronic outlet obstruction or inflammation. *One or more of the following individualized dose reduction techniques were utilized for this examination: 1. Automated exposure control. 2. Adjustment of the mA and/or kV according to patient size. 3. Use of iterative reconstruction technique. Electronically signed by: Betsey Canela MD (06/20/2017 7:49 PM) [facility]
[2017-06-20] MEDS ORDERED: HYDROCORTISONE SOD SUCC/PF 100 MG/2 ML VIAL. IV ONE (20:45)
[2017-06-20 21:35] VITALS: BP 111/45
--- NOTE | 2017-06-20 23:26 | PDOC1 ---
History and Physical Date of Admission Date of Admission DATE: 06/20/17 TIME: 23:21 Identification/Chief Complaint Chief Complaint hypotension Problems: Source Source: Chart review, Patient History of Present Illness History of Present Illness Mr. Morse is a 81 year old male admit with hypotension. BP in 60's at his house, taking BP meds, but they have been decreased for low BP he has had trouble at HD the past few weeks with low bp recent ER visit for ankle sprain, ongoing home care for weakness his only complaint to me is left ankle pain Past Medical History Cardiovascular: AFIB, CAD, CHF, HTN, [place], Hyperlipidemia Pulmonary: Pneumonia, Other GI: GERD, Peptic Ulcer disease Heme/Onc: Anemia NOS Musculoskeletal: Osteoarthritis Renal/: Chronic renal failure, Benign prostatic enlarg., Urinary Incontinence Endocrine: Diabetes, Hyperparathyroidism Past Surgical History Past Surgical History: Pacemaker, CABG, Cataract Removal, Tonsillectomy, Other Family History Family History: Heart Disease Social History ALCOHOL: none Drugs: None Current Problem List Problem List Problems Medical Problems: (1) Hypotension Status: Acute Problems: Current Medications Current Medications Current Medications Sodium Chloride 500 ml @ 500 mls/hr 1X ONCE IV Last administered on 17:47; Start 06/20/17 at 17:45; Stop 06/20/17 at 18:44; Status DC Iohexol (Omnipaque 300 Mg/ml) 60 ml 1X ONCE IV Last administered on 06/20/17 18:08; Start 06/20/17 at 18:00; Stop 06/20/17 at 18:01; Status DC Info (Do NOT chart on this entry -- for MONITORING) 1 each PRN DAILY PRN MC SEE COMMENTS; Start 06/20/17 at 18:00; Stop 06/22/17 at 17:59 Hydrocortisone Sodium Succinate (Solu-CORTEF) 100 mg 1X ONCE IV Last administered on 06/20/17 20:46; Start 06/20/17 at 20:45; Stop 06/20/17 at 20:46 ; Status DC Alprazolam (Xanax) 0.5 mg TID PO ; Start 06/20/17 at 23:00 Aspirin (Ecotrin) 81 mg DAILY PO ; Start 06/21/17 at 09:00 Folic Acid (Folic Acid) 1 mg DAILY PO ; Start 06/21/17 at 09:00 Gemfibrozil (Lopid) 600 mg BID PO ; Start 06/21/17 at 09:00 Insulin Aspart (NovoLOG) 5 units TIDAC SQ ; Start 06/21/17 at 07:30 Insulin Detemir (Levemir) 15 units QHS SQ ; Start 06/21/17 at 21:00 Amylase/Lipase/ Protease (Zenpep 5,000) 4 cap TIDAC PO ; Start 06/21/17 at 07:30 Oxycodone/ Acetaminophen (Percocet 5/325) 1 tab QID PO ; Start 06/21/17 at 09:00 Pregabalin (Lyrica) 75 mg DAILY PO ; Start 06/21/17 at 09:00 Ropinirole HCl (Requip) 1 mg HS PO ; Start 06/20/17 at 23:00 Sennosides (Senna) 25.8 mg BID PO ; Start 06/21/17 at 09:00 Spironolactone (Aldactone) 25 mg DAILY PO ; Start 06/21/17 at 09:00 Tamsulosin HCl (Flomax) 0.8 mg DAILY PO ; Start 06/21/17 at 09:00 Fludrocortisone Acetate (Florinef) 0.1 mg DAILY PO ; Start 06/21/17 at 09:00 Active Scripts Active Levemir Flextouch (Insulin Detemir) 100 Unit/1 Ml Insuln.pen 15 Units SQ QHS 30 Days Novolog Flexpen (Insulin Aspart) 100 Unit/1 Ml Insuln.pen 5 Units SQ TIDAC 30 Days Lasix (Furosemide) 80 Mg Tablet 1 Tab PO DAILY Reported Hydralazine Hcl 10 Mg Tablet 1 Tab PO BID Percocet 5-325 Mg Tablet (Oxycodone/Acetaminophen) 1 Each Tablet 1 Tab PO QID Lyrica (Pregabalin) 75 Mg Capsule 1 Cap PO DAILY Lantus Solostar (Insulin Glargine,Hum.rec.anlog) 100 Unit/1 Ml Insuln.pen 24 Unit SQ QHS Humalog (Insulin Lispro) 100 Unit/1 Ml Cartridge 8 Unit SQ TIDAC Folic Acid 1 Mg Tablet 1 Tab PO DAILY Aspir 81 (Aspirin) 81 Mg Tablet.dr 1 Tab PO DAILY Senokot (Sennosides) 8.6 Mg Tablet 3 Tab PO BID Gemfibrozil 600 Mg Tablet 1 Tab PO BID Alprazolam 0.5 Mg Tablet 1 Tab PO TID Fish Oil 1,000 Mg Capsule (Covina-3 Fatty Acids/Fish Oil) 1 Each Capsule 4 Each PO DAILY Pancrelipase 5,000 Unit Cap (Lipase/Protease/Amylase) 1 Each Capsule.dr 4 Each PO Prilosec Otc (Omeprazole Magnesium) 20 Mg Tablet.dr 20 Mg PO DAILY Spironolactone 25 Mg Tablet 25 Mg PO DAILY Ropinirole Hcl 1 Mg Tablet 1 Mg PO HS Tamsulosin Hcl 0.4 Mg Cap.er.24h 0.8 Mg PO DAILY Travatan Z (Travoprost) 5 Ml Drops 5 Ml OP Allergies Allergies: Coded Allergies: Xmowkph-Nvi-Qaj Reductase Inhibitor (Verified Allergy, Severe, Brain swelling. , 09/18/15) Pt was taking Gabapentin with a Statin and per . "It almost killed him." gabapentin (Verified Allergy, Severe, Brain swelling, 09/18/15) Per pt had Gabapentin with a Statin and it caused brain swelling, "almost killed him." sulfamethoxazole (Verified Allergy, Intermediate, 01/01/17) trimethoprim (Verified Allergy, Intermediate, 01/01/17) morphine (Verified Adverse Reaction, Severe, 02/15/17) ROS General: No: Chills, Night Sweats, Fatigue, Malaise, Appetite, Other PSYCHOLOGICAL ROS: No: Anxiety, Behavioral Disorder, Concentration difficultie , Decreased libido, Depression, Disorientation, Hallucinations, Hostility, Irritablity, Memory difficulties, Mood Swings, Obsessive thoughts, Other Eyes: No Blurry vision, No Decreased vision, No Double vision, No Dry eyes, No Excessive tearing, No Eye Pain, No Itchy Eyes, No Loss of vision, No Photophobia , No Scotomata, No Uses contacts, No Uses glasses, No Other HEENT: No: Heacaches, Visual Changes, Hearing change, Nasal congestion, Nasal discharge, Oral lesions, Sinus pain, Sore Throat, Epistaxis, Sneezing, Snoring, Tinnitus, Vertigo, Vocal changes, Other Respiratory: No: Cough, Hemoptysis, Orthopnea, Pleuritic Pain, Shortness of breath, SOB with excertion, Sputum Changes, Stridor, Tachypnea, Wheezing, Other Cardiovascular: No Chest Pain, No Palpitations, No Orthopnea, No Paroxysmal Noc. Dyspnea, No Edema, No Lt Headedness, No Other Gastrointestinal: Yes Nausea, No Vomiting, No Abdominal Pain, No Diarrhea, No Constipation, No Melena, No Hematochezia, No Other Genitourinary: No Dysuria, No Frequency, No Incontinence, No Hematuria, No Retention, No Discharge, No Urgency, No Pain, No Flank Pain, No Other, No , No , No , No , No , No , No Musculoskeletal: Yes Gait Disturbance, Yes Joint Pain, Yes Joint Stiffness, Yes Pain In:, Yes Swelling In: (ankle), No Joint Swelling, No Muscle Pain, No Muscular Weakness, No Other Neurological: No Behavorial Changes, No Bowel/Bladder ControlChng, No Confusion , No Dizziness, No Gait Disturbance, No Headaches, No Impaired Coord/balance, No Memory Loss, No Numbness/Tingling, No Seizures, No Speech Problems, No Tremors, No Visual Changes, No Weakness, No Other Skin: Yes Dry Skin, No Eczema, No Hair Changes, No Lumps, No Mole Changes, No Mottling, No Nail Changes, No Pruritus, No Rash, No Skin Lesion Changes, No Other, No Acne Physical Exam General: Alert, Oriented X3, Cooperative, mild distress HEENT: EOMI, Mucous membr. moist/pink Lungs: Normal air movement Heart: no gallops, no murmurs Abdomen: Normal bowel sounds, Soft (obese) Extremities: Other (left ankle swollen and tender) Skin: No rashes, No significant lesion, Other (dry skin) Neuro: Normal tone Psych/Mental Status: Mood NL Vitals Vitals Vital Signs Date Time Temp Pulse Resp B/P (MAP) Pulse Ox O2 Delivery O2 Flow Rate FiO2 06/20/17 21:35 97.5 68 18 111/45 (67) 98 Room Air 97.5 Labs Labs Laboratory Tests Test 06/20/17 17:30 White Blood Count 8.5 x10^3/uL (4.0-11.0) Red Blood Count 2.72 x10^6/uL (4.30-5.70) Hemoglobin 8.9 g/dL (13.0-17.5) Hematocrit 27.9 % (39.0-53.0) Mean Corpuscular Volume 102 fL (79-100) Mean Corpuscular Hemoglobin 33 pg (25-35) Mean Corpuscular Hemoglobin Concent 32 g/dL (31-37) Red Cell Distribution Width 17.1 % (11.5-14.5) Platelet Count 157 x10^3/uL (140-400) Neutrophils (%) (Auto) 71 % (31-73) Lymphocytes (%) (Auto) 15 % (24-48) Monocytes (%) (Auto) 10 % (0-9) Eosinophils (%) (Auto) 4 % (0-3) Basophils (%) (Auto) 1 % (0-3) Neutrophils # (Auto) 6.0 x10^3uL (1.8-7.7) Lymphocytes # (Auto) 1.3 x10^3/uL (1.0-4.8) Monocytes # (Auto) 0.9 x10^3/uL (0.0-1.1) Eosinophils # (Auto) 0.3 x10^3/uL (0.0-0.7) Basophils # (Auto) 0.1 x10^3/uL (0.0-0.2) Prothrombin Time 15.7 SEC (11.7-14.0) Prothromb Time International Ratio 1.3 (0.8-1.1) D-Dimer (Marlin) 1.87 ug/mlFEU (0.00-0.50) Sodium Level 134 mmol/L (136-145) Potassium Level 4.6 mmol/L (3.5-5.1) Chloride Level 97 mmol/L (98-107) Carbon Dioxide Level 22 mmol/L (21-32) Anion Gap 15 (6-14) Blood Urea Nitrogen 67 mg/dL (8-26) Creatinine 9.0 mg/dL (0.7-1.3) Estimated GFR (Cockcroft-Gault) 5.7 Glucose Level 159 mg/dL (70-99) Calcium Level 8.3 mg/dL (8.5-10.1) Magnesium Level 2.0 mg/dL (1.8-2.4) Total Bilirubin 0.5 mg/dL (0.2-1.0) Direct Bilirubin 0.2 mg/dL (0.0-0.2) Aspartate Amino Transf (AST/SGOT) 19 U/L (15-37) Alanine Aminotransferase (ALT/SGPT) 16 U/L (16-63) Alkaline Phosphatase 104 U/L (46-116) Creatine Kinase 96 U/L (39-308) Creatine Kinase MB (Mass) 1.8 ng/mL (0.0-3.6) Creatine Kinase MB Relative Index 1.9 % (0-4) Troponin I Quantitative < 0.017 ng/mL (0.000-0.055) Total Protein 7.3 g/dL (6.4-8.2) Albumin 3.0 g/dL (3.4-5.0) Laboratory Tests Test 06/20/17 17:30 White Blood Count 8.5 x10^3/uL (4.0-11.0) Red Blood Count 2.72 x10^6/uL (4.30-5.70) Hemoglobin 8.9 g/dL (13.0-17.5) Hematocrit 27.9 % (39.0-53.0) Mean Corpuscular Volume 102 fL (79-100) Mean Corpuscular Hemoglobin 33 pg (25-35) Mean Corpuscular Hemoglobin Concent 32 g/dL (31-37) Red Cell Distribution Width 17.1 % (11.5-14.5) Platelet Count 157 x10^3/uL (140-400) Neutrophils (%) (Auto) 71 % (31-73) Lymphocytes (%) (Auto) 15 % (24-48) Monocytes (%) (Auto) 10 % (0-9) Eosinophils (%) (Auto) 4 % (0-3) Basophils (%) (Auto) 1 % (0-3) Neutrophils # (Auto) 6.0 x10^3uL (1.8-7.7) Lymphocytes # (Auto) 1.3 x10^3/uL (1.0-4.8) Monocytes # (Auto) 0.9 x10^3/uL (0.0-1.1) Eosinophils # (Auto) 0.3 x10^3/uL (0.0-0.7) Basophils # (Auto) 0.1 x10^3/uL (0.0-0.2) Prothrombin Time 15.7 SEC (11.7-14.0) Prothromb Time International Ratio 1.3 (0.8-1.1) D-Dimer (Marlin) 1.87 ug/mlFEU (0.00-0.50) Sodium Level 134 mmol/L (136-145) Potassium Level 4.6 mmol/L (3.5-5.1) Chloride Level 97 mmol/L (98-107) Carbon Dioxide Level 22 mmol/L (21-32) Anion Gap 15 (6-14) Blood Urea Nitrogen 67 mg/dL (8-26) Creatinine 9.0 mg/dL (0.7-1.3) Estimated GFR (Cockcroft-Gault) 5.7 Glucose Level 159 mg/dL (70-99) Calcium Level 8.3 mg/dL (8.5-10.1) Magnesium Level 2.0 mg/dL (1.8-2.4) Total Bilirubin 0.5 mg/dL (0.2-1.0) Direct Bilirubin 0.2 mg/dL (0.0-0.2) Aspartate Amino Transf (AST/SGOT) 19 U/L (15-37) Alanine Aminotransferase (ALT/SGPT) 16 U/L (16-63) Alkaline Phosphatase 104 U/L (46-116) Creatine Kinase 96 U/L (39-308) Creatine Kinase MB (Mass) 1.8 ng/mL (0.0-3.6) Creatine Kinase MB Relative Index 1.9 % (0-4) Troponin I Quantitative < 0.017 ng/mL (0.000-0.055) Total Protein 7.3 g/dL (6.4-8.2) Albumin 3.0 g/dL (3.4-5.0) VTE Prophylaxis Ordered VTE Prophylaxis Devices: Yes VTE Pharmacological Prophylaxi: No Assessment/Plan Assessment/Plan ESRD hypotension, history of htn, STOP all htn meds hydrocort given in the ER, will give fludro in AM, check orthostatics PT and OT eval Physiatry consult, left ankle pain, cannot ambulate well, may need cam boot Diabetes, insulin req, with obesity, BMI 38, mild/mod malnutrition, anemia of CKD 5 KATHIE WASHBURN MD Jun 20, 2017 23:26
[2017-06-20] MEDS ORDERED: DEXTROSE 50% 25 GM / 50ML DISP.SYRIN. IV PRN (23:30)
[2017-06-20] MEDS: rOPINIRole 1 MG TABLET. PO SCH (23:49)
[2017-06-20] MEDS: ALPRAZolam 0.5 MG TABLET PO SCH (23:49)
[2017-06-20 23:54] VITALS: BP 87/48
--- NOTE | 2017-06-21 01:28 | ACF ---
Admission Forms Criteria HEMODYNAMIC INSTABILITY Clinical Indications for Inpatient Care (Place 'X' for any and all applicable criteria): Ongoing inpatient care may be indicated for hemodynamic instability as indicated by 1 or more of the following(1)(2)(3)(4)(10)(16)(17)(18)(19(32)(35): [ ]I) New hypotension [ ]II) Symptomatic heart rate greater than 100 or less than 50 beats per minute unresponsive to treatment (eg, analgesia, fluids) [ ]II) Inadequate perfusion as indicated by ANY ONE of the following: [ ]a) Lactic acidosis, with lactic acid greater than 18 mg/dL (2 mmol/ L) or base excess less than -5 mEq/L [ ]b) New abnormal capillary refill (longer than 3 seconds) [ ]c) New altered mental status [ ]d) Reduced urine output [ ]IV) Orthostatic vital sign changes that are symptomatic and unresponsive to treatment (eg, fluids) (37)(38) [X]V) Marked hemodynamic change from baseline (eg, SBP 20 mm Hg below patient' s usual pressure) [ ]) IV inotropic or vasopressor medication required(39) Extended stay beyond goal length of stay for primary condition may be needed until ALL of the following are present(1)(2)(3): [ ]a) Heart rate > 60 and < 100 beats per minute or patient is clinically stable at current rate (eg, baseline) [ ]b) SBP >100 mm Hg and <160 mm Hg or patient is clinically stable at current pressure (eg, baseline) [ ]c) DBP greater than 50 mm Hg and less than 100 mm Hg or patient is clinically stable at current pressure (eg, baseline) [ ]d) Urine output greater than 0.5 mL/kg per hour [ ]e) Room air oxygen saturation 90% or greater or at baseline [ ]f) Orthostatic vital sign changes absent, asymptomatic, at baseline, or manageable at lower level of care [ ]g) Medical comorbidities manageable at lower level of care The original [employer] content created by [employer] has been revised. The portions of the content which have been revised are identified through the use of italic text, and [employer] has neither reviewed nor approved the modified material. All other unmodified content is copyright [facility]. Please see references footnoted in the original [facility] edition 2015 Admission Criteria Met?: Yes KINJAL LAMAR Jun 21, 2017 01:28
[2017-06-21 01:41] VITALS: BP 87/35
[2017-06-21 01:42] VITALS: BP_SYST 85; BP_SYST 88; BP_DIAS 39; BP_DIAS 42
[2017-06-21] MEDS ORDERED: IV 1/2 NORMAL SALINE 500 ML IV ONE (02:30)
[2017-06-21 05:15] LABS: BASO % 0 % (0-3); EOS % 0 % (0-3); HEMATOCRIT 25.9 % (39.0-53.0); HEMOGLOBIN 8.5 g/dL (13.0-17.5); LYMPH # 0.4 x10^3/uL (1.0-4.8); LYMPH % 6 % (24-48); MEAN CORPUSCULAR HEMOGLOBIN 33 pg (25-35); MEAN CORPUSCULAR HGB CONC 33 g/dL (31-37); MEAN CORPUSCULAR VOLUME 102 fL (79-100); MONO % 4 % (0-9); NEUT % 90 % (31-73); PLATELET COUNT 130 x10^3/uL (140-400); RED BLOOD COUNT 2.55 x10^6/uL (4.30-5.70); RED CELL DISTRIBUTION WIDTH 16.5 % (11.5-14.5); WHITE BLOOD COUNT 7.3 x10^3/uL (4.0-11.0)
[2017-06-21 06:05] LABS: ALBUMIN 2.8 g/dL (3.4-5.0); ALBUMIN/GLOBULIN RATIO 0.8 (1.0-1.7); CALCIUM 7.2 mg/dL (8.5-10.1); CREATININE 9.1 mg/dL (0.7-1.3); GFR 5.6; TOTAL BILIRUBIN 0.4 mg/dL (0.2-1.0); TOTAL PROTEIN 6.1 g/dL (6.4-8.2)
[2017-06-21 06:10] LABS: POTASSIUM 7.1 mmol/L (3.5-5.1)
--- NOTE | 2017-06-21 07:01 | EKG ---
[facility] [address] [place] [address] Test Date: 2017-06-20 Test Time: 17:49:31 Pat Name: GABO WHITMAN Department: Room: [facility] Gender: M Car Spotter: : 1935 Requested By: NORMA GODOY Order Number: [id number] Reading MD: Dejuan Meade Measurements Intervals [place] Rate: 70 P: -9 WI: 214 QRS: -69 QRSD: 118 T: 28 QT: 396 QTc: 430 Interpretive Statements SUSPECT PACED RHYTHM - POSSIBLE BI-V PACING LOW VOLTAGE Electronically Signed On 06-23-2017 8:44:32 CDT by Dejuan Meade
[2017-06-21 07:08] VITALS: BP 79/39
[2017-06-21] MEDS: LIPASE/PROTEAS/AMYLASE 5/17/27 CAPSULE.DR. PO SCH ×3 (07:30→17:32)
[2017-06-21] MEDS: INSULIN ASPART 300 UNITS/3 ML INSULN.PEN SQ SCH ×6 (07:30→17:47)
[2017-06-21 07:34] LABS: CALCIUM 7.7 mg/dL (8.5-10.1); CREATININE 9.6 mg/dL (0.7-1.3); GFR 5.3
[2017-06-21 07:38] LABS: POTASSIUM 6.5 mmol/L (3.5-5.1)
[2017-06-21] MEDS ORDERED: IV NORMAL SALINE 1000ML BAG 1,000 ML IV SCH (09:00)
[2017-06-21] MEDS: ALPRAZolam 0.5 MG TABLET PO SCH ×2 (09:00→14:00)
[2017-06-21] MEDS ORDERED: IV NORMAL SALINE 1000ML BAG 1,000 ML IV PRN ×2 (09:10)
[2017-06-21] MEDS ORDERED: DIALYSIS PATIENT. MC PRN ×2 (09:15)
[2017-06-21] MEDS ORDERED: diphenhydrAMINE 50 MG/ML VIAL IV PRN (09:15)
[2017-06-21] MEDS ORDERED: ALBUMIN HUMAN 25% 200 ML IV PRN (09:15)
[2017-06-21] MEDS ORDERED: ACETAMINOPHEN 500 MG TABLET PO PRN (09:15)
[2017-06-21] MEDS ORDERED: 0.9 % SODIUM CHLORIDE 10 ML DISP.SYRIN. IV PRN ×2 (09:15)
[2017-06-21 10:09] LABS: VITAMIN-B12 422 pg/mL (247-911)
[2017-06-21 10:28] LABS: FOLATE > 20.00 ng/ml (3.2-20.0)
[2017-06-21 11:18] LABS: ANISOCYTOSIS SLIGHT; PLT ESTIMATE DECREASED (ADEQUATE); POLYCHROMASIA SLIGHT
--- NOTE | 2017-06-21 11:22 | CONS ---
DATE OF CONSULTATION: 06/21/2017 ATTENDING PHYSICIAN: Rosalia Kennedy MD. The patient was seen at the request of Dr. Kennedy for rehab evaluation. HISTORY OF PRESENT ILLNESS: This is an 81-year-old right-handed male with end-stage renal disease on hemodialysis, admitted on 06/20/2017 in the evening with hypotension. Blood pressure is in 60s at his house, taking blood pressure medication. They have been decreased for low blood pressure. He is having trouble with hemodialysis in the past few weeks with low blood pressure. He was seen recently in the Emergency Room for ankle sprain on going home care for weakness. His only complaint is left ankle pain. The patient with known atrial fibrillation, coronary artery disease, congestive heart failure, hypertension, myocardial infarction, hyperlipidemia, previous pneumonia, gastroesophageal reflux disease, peptic ulcer disease, anemia, degenerative joint disease, chronic renal failure, benign prostatic hypertrophy, urinary incontinence, diabetes mellitus, hyperparathyroidism status post permanent pacemaker placement, coronary artery bypass graft, cataract removal, and tonsillectomy. FAMILY HISTORY: Heart disease. ALLERGIES: HE IS KNOWN ALLERGIC TO STATINS, HMG-COA REDUCTASE INHIBITORS, GABAPENTIN, MORPHINE, AND SULFA. SOCIAL HISTORY: The patient lives with his , had no stairs for him to manage. He usually uses a cane or walker to get around. The patient was noted with hyperkalemia. The patient prior to the present hospitalization has been getting up and walking. PHYSICAL EXAMINATION: Today revealed an elderly male. He is alert, oriented to time, place, person and circumstance and follows commands appropriately, moves all 4 extremities voluntarily. He is protecting his left ankle. He had tenderness to palpation over anterior lateral aspect and over lateral malleolus and over the distal part of left fibula and also over left tendo Achilles. He had pain on range of motion of left ankle with mild swelling. He had equal perception of touch and pinprick sensation bilaterally. Overall, muscle strength is being4+/5 grade. Deep tendon reflexes are decreased overall with absent knee and ankle jerks. I have not tested his mobility skills at this time as he is on dialysis table this morning when I examined him. ASSESSMENT: An elderly male with end-stage renal disease, on hemodialysis; diabetes mellitus with peripheral neuropathy with recent left ankle sprain and also problems with orthostatic hypotension in a patient with known hypertension, coronary artery disease, congestive heart failure, previous myocardial infarction, status post coronary artery bypass graft, hyperlipidemia, atrial fibrillation, gastroesophageal reflux disease, anemia, benign prostatic hypertrophy, urinary incontinence and hyperparathyroidism. RECOMMENDATIONS: To get him a Cam walker brace to obtain and follow up left ankle x-rays to get him up with physical therapy and occupational therapy after he gets Cam walker brace, he should be weightbearing as tolerated on his left foot. Dr. Kennedy, I appreciate asking me to participate in the care of this interesting patient. I will be glad to follow him with you as needed for his rehabilitation. CORBIN CHATMAN MD DR: DOUGLAS/elpidio JOB#: [id number] / [id number]
--- NOTE | 2017-06-21 12:20 | PDOC2 ---
CONSULT Date of Consult Date of Consult DATE: 06/21/17 TIME: 12:17 Reason for Consult Reason for Consult: ESRD Referring Physician Referring Physician: WU Identification/Chief Complaint Chief Complaint LOW BP AND WEAK Problems: Source Source: Chart review, Patient History of Present Illness Reason for Visit: THIS IS AN 81 YR OLD ADMITTED WITH WEAKNESS AND SBP AT HOME WAS ABOUT 60. HE HAS ESRD AND IS ON OP HD TTS. HIS K IS 6.5 AND HE IS ANEMIC AND LABS ARE OVERALL C/W HIS ESRD STATUS. FEELS WEAK, APPETITE HAS BEEN GOOD Past Medical History Cardiovascular: AFIB, CAD, CHF, HTN, WI, Hyperlipidemia Pulmonary: Pneumonia, Other GI: GERD, Peptic Ulcer disease Heme/Onc: Anemia NOS Musculoskeletal: Osteoarthritis Renal/: Chronic renal failure, Benign prostatic enlarg., Urinary Incontinence Endocrine: Diabetes, Hyperparathyroidism Past Surgical History Past Surgical History: Pacemaker, CABG, Cataract Removal, Tonsillectomy, Other Family History Family History: Heart Disease Social History ALCOHOL: none Drugs: None Lives: with Family Domestic Violence: Neg Current Problem List Problem List Problems Medical Problems: (1) Hypotension Status: Acute Current Medications Current Medications Current Medications Sodium Chloride 500 ml @ 500 mls/hr 1X ONCE IV Last administered on 17:47; Start 06/20/17 at 17:45; Stop 06/20/17 at 18:44; Status DC Iohexol (Omnipaque 300 Mg/ml) 60 ml 1X ONCE IV Last administered on 06/20/17 18:08; Start 06/20/17 at 18:00; Stop 06/20/17 at 18:01; Status DC Info (Do NOT chart on this entry -- for MONITORING) 1 each PRN DAILY PRN MC SEE COMMENTS; Start 06/20/17 at 18:00; Stop 06/22/17 at 17:59 Hydrocortisone Sodium Succinate (Solu-CORTEF) 100 mg 1X ONCE IV Last administered on 06/20/17 20:46; Start 06/20/17 at 20:45; Stop 06/20/17 at 20:46 ; Status DC Alprazolam (Xanax) 0.5 mg TID PO Last administered on 06/20/17 23:49; Start at 23:00 Aspirin (Ecotrin) 81 mg DAILY PO ; Start 06/21/17 at 09:00 Folic Acid (Folic Acid) 1 mg DAILY PO ; Start 06/21/17 at 09:00 Gemfibrozil (Lopid) 600 mg BID PO ; Start 06/21/17 at 09:00 Insulin Aspart (NovoLOG) 5 units TIDAC SQ ; Start 06/21/17 at 07:30 Insulin Detemir (Levemir) 15 units QHS SQ ; Start 06/21/17 at 21:00 Amylase/Lipase/ Protease (Zenpep 5,000) 4 cap TIDAC PO ; Start 06/21/17 at 07:30 Oxycodone/ Acetaminophen (Percocet 5/325) 1 tab QID PO ; Start 06/21/17 at 09:00 Pregabalin (Lyrica) 75 mg DAILY PO ; Start 06/21/17 at 09:00 Ropinirole HCl (Requip) 1 mg HS PO Last administered on 06/20/17 23:49; Start 06/20/17 at 23:00 Sennosides (Senna) 25.8 mg BID PO ; Start 06/21/17 at 09:00 Spironolactone (Aldactone) 25 mg DAILY PO ; Start 06/21/17 at 09:00 Tamsulosin HCl (Flomax) 0.8 mg DAILY PO ; Start 06/21/17 at 09:00 Fludrocortisone Acetate (Florinef) 0.1 mg DAILY PO ; Start 06/21/17 at 09:00 Insulin Aspart (NovoLOG) 0-7 UNITS TIDWMEALS SQ Last administered on 06/21/17 08:45; Start 06/21/17 at 08:00 Dextrose (Dextrose 50%-Water Syringe) 12.5 gm PRN Q15MIN PRN IV SEE COMMENTS; Start 06/20/17 at 23:30 Sodium Chloride 500 ml @ 500 mls/hr 1X ONCE IV Last administered on 02:29; Start 06/21/17 at 02:30; Stop 06/21/17 at 03:29; Status DC Sodium Chloride 1,000 ml @ 100 mls/hr Q10H IV ; Start 06/21/17 at 09:00 Sodium Chloride 1,000 ml @ 1,000 mls/hr Q1H PRN IV hypotension; Start 06/21/17 at 09:10; Stop 06/21/17 at 15:09 Albumin Human 200 ml @ 200 mls/hr 1X PRN PRN IV Hypotension; Start 06/21/17 at 09:15; Stop 06/21/17 at 15:14 Acetaminophen (Tylenol) 500 mg 1X PRN PRN PO MILD PAIN / TEMP; Start 06/21/17 at 09:15; Stop 06/22/17 at 09:14 Diphenhydramine HCl (Benadryl) 25 mg 1X PRN PRN IV ITCHING; Start 06/21/17 at 09:15; Stop 06/22/17 at 09:14 Sodium Chloride (Normal Saline Flush) 10 ml 1X PRN PRN IV AP 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; Start 06/21/17 at 09:15; Stop 06/22/17 at 09:14 Sodium Chloride (Normal Saline Flush) 10 ml 1X PRN PRN IV FILLING HAND 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; Start 06/21/17 at 09:15; Stop 06/22/17 at 09:14 Sodium Chloride 1,000 ml @ 400 mls/hr Q2H30M PRN IV PATENCY; Start 06/21/17 at 09:10; Stop 06/21/17 at 21:09 Info (PHARMACY MONITORING -- do not chart) 1 each PRN DAILY PRN MC SEE COMMENTS ; Start 06/21/17 at 09:15 Info (PHARMACY MONITORING -- do not chart) 1 each PRN DAILY PRN MC SEE COMMENTS ; Start 06/21/17 at 09:15; Stop 06/21/17 at 09:29; Status DC Active Scripts Active Levemir Flextouch (Insulin Detemir) 100 Unit/1 Ml Insuln.pen 15 Units SQ QHS 30 Days Novolog Flexpen (Insulin Aspart) 100 Unit/1 Ml Insuln.pen 5 Units SQ TIDAC 30 Days Lasix (Furosemide) 80 Mg Tablet 1 Tab PO DAILY Reported Hydralazine Hcl 10 Mg Tablet 1 Tab PO BID Percocet 5-325 Mg Tablet (Oxycodone/Acetaminophen) 1 Each Tablet 1 Tab PO QID Lyrica (Pregabalin) 75 Mg Capsule 1 Cap PO DAILY Lantus Solostar (Insulin Glargine,Hum.rec.anlog) 100 Unit/1 Ml Insuln.pen 24 Unit SQ QHS Humalog (Insulin Lispro) 100 Unit/1 Ml Cartridge 8 Unit SQ TIDAC Folic Acid 1 Mg Tablet 1 Tab PO DAILY Aspir 81 (Aspirin) 81 Mg Tablet. 1 Tab PO DAILY Senokot (Sennosides) 8.6 Mg Tablet 3 Tab PO BID Gemfibrozil 600 Mg Tablet 1 Tab PO BID Alprazolam 0.5 Mg Tablet 1 Tab PO TID Fish Oil 1,000 Mg Capsule (Miles-3 Fatty Acids/Fish Oil) 1 Each Capsule 4 Each PO DAILY Pancrelipase Dr 5,000 Unit Cap (Lipase/Protease/Amylase) 1 Each Capsule.dr 4 Each PO Prilosec Otc (Omeprazole Magnesium) 20 Mg Tablet.dr 20 Mg PO DAILY Spironolactone 25 Mg Tablet 25 Mg PO DAILY Ropinirole Hcl 1 Mg Tablet 1 Mg PO HS Tamsulosin Hcl 0.4 Mg Cap.er.24h 0.8 Mg PO DAILY Travatan Z (Travoprost) 5 Ml Drops 5 Ml OP Allergies Allergies: Coded Allergies: [id number] Reductase Inhibitor (Verified Allergy, Severe, Brain swelling. , 09/18/15) Pt was taking Gabapentin with a Statin and per . "It almost killed him." gabapentin (Verified Allergy, Severe, Brain swelling, 09/18/15) Per pt had Gabapentin with a Statin and it caused brain swelling, "almost killed him." sulfamethoxazole (Verified Allergy, Intermediate, 01/01/17) trimethoprim (Verified Allergy, Intermediate, 01/01/17) morphine (Verified Adverse Reaction, Severe, 02/15/17) ROS General: YES: Fatigue, Malaise, Appetite Eyes: Yes Decreased vision HEENT: YES: Heacaches Respiratory: YES: Cough Cardiovascular: yes Edema Gastrointestinal: Yes Constipation Genitourinary: YES Other (ANURIA) Musculoskeletal: Yes Muscular Weakness Neurological: Yes Weakness Skin: Yes Dry Skin Physical Exam General: Alert, Oriented X3, Cooperative, No acute distress HEENT: Atraumatic, PERRLA Lungs: Clear to auscultation Heart: Regular rate, Normal S1 Abdomen: Normal bowel sounds, Soft, No tenderness Skin: No rashes Neuro: Normal speech, Cranial nerves 3-12 NL Psych/Mental Status: Mental status NL, Mood NL MUSCULOSKELETAL: No deformity, No swelling Vitals VITALS Vital Signs Date Time Temp Pulse Resp B/P (MAP) Pulse Ox O2 Delivery O2 Flow Rate FiO2 06/21/17 07:08 98.4 70 16 79/39 (52) 96 Room Air 98.4 Labs Labs Laboratory Tests Test 06/20/17 17:30 06/21/17 04:45 06/21/17 07:08 06/21/17 07:10 White Blood Count 8.5 x10^3/uL (4.0-11.0) 7.3 x10^3/uL (4.0-11.0) Red Blood Count 2.72 x10^6/uL (4.30-5.70) 2.55 x10^6/uL (4.30-5.70) Hemoglobin 8.9 g/dL (13.0-17.5) 8.5 g/dL (13.0-17.5) Hematocrit 27.9 % (39.0-53.0) 25.9 % (39.0-53.0) Mean Corpuscular Volume 102 fL (79-100) 102 fL (79-100) Mean Corpuscular Hemoglobin 33 pg (25-35) 33 pg (25-35) Mean Corpuscular Hemoglobin Concent 32 g/dL (31-37) 33 g/dL (31-37) Red Cell Distribution Width 17.1 % (11.5-14.5) 16.5 % (11.5-14.5) Platelet Count 157 x10^3/uL (140-400) 130 x10^3/uL (140-400) Neutrophils (%) (Auto) 71 % (31-73) 90 % (31-73) Lymphocytes (%) (Auto) 15 % (24-48) 6 % (24-48) Monocytes (%) (Auto) 10 % (0-9) 4 % (0-9) Eosinophils (%) (Auto) 4 % (0-3) 0 % (0-3) Basophils (%) (Auto) 1 % (0-3) 0 % (0-3) Neutrophils # (Auto) 6.0 x10^3uL (1.8-7.7) 6.6 x10^3uL (1.8-7.7) Lymphocytes # (Auto) 1.3 x10^3/uL (1.0-4.8) 0.4 x10^3/uL (1.0-4.8) Monocytes # (Auto) 0.9 x10^3/uL (0.0-1.1) 0.3 x10^3/uL (0.0-1.1) Eosinophils # (Auto) 0.3 x10^3/uL (0.0-0.7) 0.0 x10^3/uL (0.0-0.7) Basophils # (Auto) 0.1 x10^3/uL (0.0-0.2) 0.0 x10^3/uL (0.0-0.2) Prothrombin Time 15.7 SEC (11.7-14.0) Prothromb Time International Ratio 1.3 (0.8-1.1) D-Dimer (Marlin) 1.87 ug/mlFEU (0.00-0.50) Sodium Level 134 mmol/L (136-145) 134 mmol/L (136-145) 131 mmol/L (136-145) Potassium Level 4.6 mmol/L (3.5-5.1) 7.1 mmol/L (3.5-5.1) 6.5 mmol/L (3.5-5.1) Chloride Level 97 mmol/L (98-107) 98 mmol/L (98-107) 96 mmol/L (98-107) Carbon Dioxide Level 22 mmol/L (21-32) 21 mmol/L (21-32) 20 mmol/L (21-32) Anion Gap 15 (6-14) 15 (6-14) 15 (6-14) Blood Urea Nitrogen 67 mg/dL (8-26) 81 mg/dL (8-26) 79 mg/dL (8-26) Creatinine 9.0 mg/dL (0.7-1.3) 9.1 mg/dL (0.7-1.3) 9.6 mg/dL (0.7-1.3) Estimated GFR (Cockcroft-Gault) 5.7 5.6 5.3 Glucose Level 159 mg/dL (70-99) 317 mg/dL (70-99) 292 mg/dL (70-99) Calcium Level 8.3 mg/dL (8.5-10.1) 7.2 mg/dL (8.5-10.1) 7.7 mg/dL (8.5-10.1) Magnesium Level 2.0 mg/dL (1.8-2.4) Total Bilirubin 0.5 mg/dL (0.2-1.0) 0.4 mg/dL (0.2-1.0) Direct Bilirubin 0.2 mg/dL (0.0-0.2) Aspartate Amino Transf (AST/SGOT) 19 U/L (15-37) 15 U/L (15-37) Alanine Aminotransferase (ALT/SGPT) 16 U/L (16-63) 15 U/L (16-63) Alkaline Phosphatase 104 U/L (46-116) 98 U/L (46-116) Creatine Kinase 96 U/L (39-308) Creatine Kinase MB (Mass) 1.8 ng/mL (0.0-3.6) Creatine Kinase MB Relative Index 1.9 % (0-4) Troponin I Quantitative < 0.017 ng/mL (0.000-0.055) Total Protein 7.3 g/dL (6.4-8.2) 6.1 g/dL (6.4-8.2) Albumin 3.0 g/dL (3.4-5.0) 2.8 g/dL (3.4-5.0) Segmented Neutrophils % 82 % (35-66) Band Neutrophils % 8 % (0-9) Lymphocytes % 6 % (24-48) Monocytes % 3 % (0-10) Metamyelocytes % 1 % (0-0) Platelet Estimate Decreased (ADEQUATE) Polychromasia Slight Anisocytosis Slight Macrocytosis Present BUN/Creatinine Ratio 9 (6-20) Albumin/Globulin Ratio 0.8 (1.0-1.7) Vitamin B12 Level 422 pg/mL (247-911) Serum Folate > 20.00 ng/ml (3.2-20.0) Glucose (Fingerstick) 288 mg/dL (70-99) Laboratory Tests Test 06/20/17 17:30 06/21/17 04:45 06/21/17 07:08 06/21/17 07:10 White Blood Count 8.5 x10^3/uL (4.0-11.0) 7.3 x10^3/uL (4.0-11.0) Red Blood Count 2.72 x10^6/uL (4.30-5.70) 2.55 x10^6/uL (4.30-5.70) Hemoglobin 8.9 g/dL (13.0-17.5) 8.5 g/dL (13.0-17.5) Hematocrit 27.9 % (39.0-53.0) 25.9 % (39.0-53.0) Mean Corpuscular Volume 102 fL (79-100) 102 fL (79-100) Mean Corpuscular Hemoglobin 33 pg (25-35) 33 pg (25-35) Mean Corpuscular Hemoglobin Concent 32 g/dL (31-37) 33 g/dL (31-37) Red Cell Distribution Width 17.1 % (11.5-14.5) 16.5 % (11.5-14.5) Platelet Count 157 x10^3/uL (140-400) 130 x10^3/uL (140-400) Neutrophils (%) (Auto) 71 % (31-73) 90 % (31-73) Lymphocytes (%) (Auto) 15 % (24-48) 6 % (24-48) Monocytes (%) (Auto) 10 % (0-9) 4 % (0-9) Eosinophils (%) (Auto) 4 % (0-3) 0 % (0-3) Basophils (%) (Auto) 1 % (0-3) 0 % (0-3) Neutrophils # (Auto) 6.0 x10^3uL (1.8-7.7) 6.6 x10^3uL (1.8-7.7) Lymphocytes # (Auto) 1.3 x10^3/uL (1.0-4.8) 0.4 x10^3/uL (1.0-4.8) Monocytes # (Auto) 0.9 x10^3/uL (0.0-1.1) 0.3 x10^3/uL (0.0-1.1) Eosinophils # (Auto) 0.3 x10^3/uL (0.0-0.7) 0.0 x10^3/uL (0.0-0.7) Basophils # (Auto) 0.1 x10^3/uL (0.0-0.2) 0.0 x10^3/uL (0.0-0.2) Prothrombin Time 15.7 SEC (11.7-14.0) Prothromb Time International Ratio 1.3 (0.8-1.1) D-Dimer (Marlin) 1.87 ug/mlFEU (0.00-0.50) Sodium Level 134 mmol/L (136-145) 134 mmol/L (136-145) 131 mmol/L (136-145) Potassium Level 4.6 mmol/L (3.5-5.1) 7.1 mmol/L (3.5-5.1) 6.5 mmol/L (3.5-5.1) Chloride Level 97 mmol/L (98-107) 98 mmol/L (98-107) 96 mmol/L (98-107) Carbon Dioxide Level 22 mmol/L (21-32) 21 mmol/L (21-32) 20 mmol/L (21-32) Anion Gap 15 (6-14) 15 (6-14) 15 (6-14) Blood Urea Nitrogen 67 mg/dL (8-26) 81 mg/dL (8-26) 79 mg/dL (8-26) Creatinine 9.0 mg/dL (0.7-1.3) 9.1 mg/dL (0.7-1.3) 9.6 mg/dL (0.7-1.3) Estimated GFR (Cockcroft-Gault) 5.7 5.6 5.3 Glucose Level 159 mg/dL (70-99) 317 mg/dL (70-99) 292 mg/dL (70-99) Calcium Level 8.3 mg/dL (8.5-10.1) 7.2 mg/dL (8.5-10.1) 7.7 mg/dL (8.5-10.1) Magnesium Level 2.0 mg/dL (1.8-2.4) Total Bilirubin 0.5 mg/dL (0.2-1.0) 0.4 mg/dL (0.2-1.0) Direct Bilirubin 0.2 mg/dL (0.0-0.2) Aspartate Amino Transf (AST/SGOT) 19 U/L (15-37) 15 U/L (15-37) Alanine Aminotransferase (ALT/SGPT) 16 U/L (16-63) 15 U/L (16-63) Alkaline Phosphatase 104 U/L (46-116) 98 U/L (46-116) Creatine Kinase 96 U/L (39-308) Creatine Kinase MB (Mass) 1.8 ng/mL (0.0-3.6) Creatine Kinase MB Relative Index 1.9 % (0-4) Troponin I Quantitative < 0.017 ng/mL (0.000-0.055) Total Protein 7.3 g/dL (6.4-8.2) 6.1 g/dL (6.4-8.2) Albumin 3.0 g/dL (3.4-5.0) 2.8 g/dL (3.4-5.0) Segmented Neutrophils % 82 % (35-66) Band Neutrophils % 8 % (0-9) Lymphocytes % 6 % (24-48) Monocytes % 3 % (0-10) Metamyelocytes % 1 % (0-0) Platelet Estimate Decreased (ADEQUATE) Polychromasia Slight Anisocytosis Slight Macrocytosis Present BUN/Creatinine Ratio 9 (6-20) Albumin/Globulin Ratio 0.8 (1.0-1.7) Vitamin B12 Level 422 pg/mL (247-911) Serum Folate > 20.00 ng/ml (3.2-20.0) Glucose (Fingerstick) 288 mg/dL (70-99) Assessment/Plan Assessment/Plan IMP ESRD ANEMIA HYPOTENSION DM II HYPERKALEMIA PLAN ARANESP HD TODAY UF TO DW [facility] ARACELI CANSECO MD Jun 21, 2017 12:20
[2017-06-21] MEDS: oxyCODONE/APAP 5/325 1 TAB TABLET PO SCH ×4 (13:00→21:00)
[2017-06-21] MEDS: PREGABALIN 75 MG CAPSULE PO SCH (14:23)
[2017-06-21] MEDS: TAMSULOSIN 0.4 MG CAP.ER.24H. PO SCH (14:23)
[2017-06-21] MEDS: GEMFIBROZIL 600 MG TABLET. PO SCH ×2 (14:25→21:11)
[2017-06-21] MEDS: SENNOSIDES 8.6 MG TABLET PO SCH ×2 (14:26→21:11)
[2017-06-21] MEDS: ASPIRIN ENTERIC COATED 81 MG TABLET.DR. PO SCH (14:27)
[2017-06-21] MEDS: FOLIC ACID 1 MG TABLET. PO SCH (14:28)
[2017-06-21] MEDS: SPIRONOLACTONE 25 MG TABLET PO SCH (14:28)
[2017-06-21] MEDS: FLUDROCORTISONE 0.1 MG TABLET PO SCH (14:28)
[2017-06-21 14:31] VITALS: BP 110/40
--- NOTE | 2017-06-21 16:36 | PDOC ---
PROGRESS NOTES Chief Complaint Chief Complaint Hypotension Hyperkalemia ESRD ASSESSMENT AND PLAN: 1. Hypotension: Hx of HTN - ? O/D of BP meds. hold all. did receive corticosteroids in ER and on floor. BP in normal range now. monitor 2. ESRD: HD today 3. Hyperkalemia: severe. correct w/ HD 4. DM: poorly controlled. adjust insulin levemir and ISS 5. 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 on EPO, iron with HD 6. PCM: moderate with morbid obesity (BMI 38) 7. prophylaxis: heparin sq History of Present Illness History of Present Illness sleeping, waking w/ difficulties. no c/o Vitals Vitals Vital Signs Date Time Temp Pulse Resp B/P (MAP) Pulse Ox O2 Delivery O2 Flow Rate FiO2 06/21/17 16:14 96 Room Air 06/21/17 14:31 97.5 78 17 110/40 (63) 97.5 Physical Exam General: Alert, Oriented X3, Cooperative, No acute distress Heart: Regular rate, Normal S1 Lungs: Clear Abdomen: Normal bowel sounds, Soft, No tenderness Extremities: Other (left ankle swollen and tender) Skin: No rashes Labs LABS Laboratory Tests Test 06/20/17 17:30 06/21/17 04:45 06/21/17 07:08 06/21/17 07:10 White Blood Count 8.5 x10^3/uL (4.0-11.0) 7.3 x10^3/uL (4.0-11.0) Red Blood Count 2.72 x10^6/uL (4.30-5.70) 2.55 x10^6/uL (4.30-5.70) Hemoglobin 8.9 g/dL (13.0-17.5) 8.5 g/dL (13.0-17.5) Hematocrit 27.9 % (39.0-53.0) 25.9 % (39.0-53.0) Mean Corpuscular Volume 102 fL (79-100) 102 fL (79-100) Mean Corpuscular Hemoglobin 33 pg (25-35) 33 pg (25-35) Mean Corpuscular Hemoglobin Concent 32 g/dL (31-37) 33 g/dL (31-37) Red Cell Distribution Width 17.1 % (11.5-14.5) 16.5 % (11.5-14.5) Platelet Count 157 x10^3/uL (140-400) 130 x10^3/uL (140-400) Neutrophils (%) (Auto) 71 % (31-73) 90 % (31-73) Lymphocytes (%) (Auto) 15 % (24-48) 6 % (24-48) Monocytes (%) (Auto) 10 % (0-9) 4 % (0-9) Eosinophils (%) (Auto) 4 % (0-3) 0 % (0-3) Basophils (%) (Auto) 1 % (0-3) 0 % (0-3) Neutrophils # (Auto) 6.0 x10^3uL (1.8-7.7) 6.6 x10^3uL (1.8-7.7) Lymphocytes # (Auto) 1.3 x10^3/uL (1.0-4.8) 0.4 x10^3/uL (1.0-4.8) Monocytes # (Auto) 0.9 x10^3/uL (0.0-1.1) 0.3 x10^3/uL (0.0-1.1) Eosinophils # (Auto) 0.3 x10^3/uL (0.0-0.7) 0.0 x10^3/uL (0.0-0.7) Basophils # (Auto) 0.1 x10^3/uL (0.0-0.2) 0.0 x10^3/uL (0.0-0.2) Prothrombin Time 15.7 SEC (11.7-14.0) Prothromb Time International Ratio 1.3 (0.8-1.1) D-Dimer (Marlin) 1.87 ug/mlFEU (0.00-0.50) Sodium Level 134 mmol/L (136-145) 134 mmol/L (136-145) 131 mmol/L (136-145) Potassium Level 4.6 mmol/L (3.5-5.1) 7.1 mmol/L (3.5-5.1) 6.5 mmol/L (3.5-5.1) Chloride Level 97 mmol/L (98-107) 98 mmol/L (98-107) 96 mmol/L (98-107) Carbon Dioxide Level 22 mmol/L (21-32) 21 mmol/L (21-32) 20 mmol/L (21-32) Anion Gap 15 (6-14) 15 (6-14) 15 (6-14) Blood Urea Nitrogen 67 mg/dL (8-26) 81 mg/dL (8-26) 79 mg/dL (8-26) Creatinine 9.0 mg/dL (0.7-1.3) 9.1 mg/dL (0.7-1.3) 9.6 mg/dL (0.7-1.3) Estimated GFR (Cockcroft-Gault) 5.7 5.6 5.3 Glucose Level 159 mg/dL (70-99) 317 mg/dL (70-99) 292 mg/dL (70-99) Calcium Level 8.3 mg/dL (8.5-10.1) 7.2 mg/dL (8.5-10.1) 7.7 mg/dL (8.5-10.1) Magnesium Level 2.0 mg/dL (1.8-2.4) Total Bilirubin 0.5 mg/dL (0.2-1.0) 0.4 mg/dL (0.2-1.0) Direct Bilirubin 0.2 mg/dL (0.0-0.2) Aspartate Amino Transf (AST/SGOT) 19 U/L (15-37) 15 U/L (15-37) Alanine Aminotransferase (ALT/SGPT) 16 U/L (16-63) 15 U/L (16-63) Alkaline Phosphatase 104 U/L (46-116) 98 U/L (46-116) Creatine Kinase 96 U/L (39-308) Creatine Kinase MB (Mass) 1.8 ng/mL (0.0-3.6) Creatine Kinase MB Relative Index 1.9 % (0-4) Troponin I Quantitative < 0.017 ng/mL (0.000-0.055) Total Protein 7.3 g/dL (6.4-8.2) 6.1 g/dL (6.4-8.2) Albumin 3.0 g/dL (3.4-5.0) 2.8 g/dL (3.4-5.0) Segmented Neutrophils % 82 % (35-66) Band Neutrophils % 8 % (0-9) Lymphocytes % 6 % (24-48) Monocytes % 3 % (0-10) Metamyelocytes % 1 % (0-0) Platelet Estimate Decreased (ADEQUATE) Polychromasia Slight Anisocytosis Slight Macrocytosis Present BUN/Creatinine Ratio 9 (6-20) Albumin/Globulin Ratio 0.8 (1.0-1.7) Vitamin B12 Level 422 pg/mL (247-911) Serum Folate > 20.00 ng/ml (3.2-20.0) Glucose (Fingerstick) 288 mg/dL (70-99) MELISSA ESPAÑA MD Jun 21, 2017 16:36
[2017-06-21] MEDS ORDERED: ALPRAZolam 0.5 MG TABLET PO PRN (17:00)
[2017-06-21 19:15] LABS: HEP B SURFACE ABDY Non Reactive (.)
[2017-06-21 19:30] VITALS: BP 93/34
[2017-06-21] MEDS ORDERED: INSULIN ASPART 300 UNITS/3 ML INSULN.PEN SQ ONE (21:00)
[2017-06-21] MEDS ORDERED: INSULIN DETEMIR 300 UNITS/3 ML INSULN.PEN. SQ SCH (21:00)
[2017-06-21] MEDS ORDERED: DARBEPOETIN ALFA 60 MCG/0.3 ML DISP.SYRIN. SQ SCH (21:00)
[2017-06-21] MEDS: rOPINIRole 1 MG TABLET. PO SCH (21:00)
[2017-06-21] MEDS: INSULIN DETEMIR 300 UNITS/3 ML INSULN.PEN. SQ SCH (21:25)
[2017-06-21 23:28] VITALS: BP 91/39
[2017-06-22] VITALS (8 sets, daily range): BP systolic 89–147; BP diastolic 35–51
[2017-06-22 05:07] LABS: BASO % 1 % (0-3); EOS % 5 % (0-3); HEMATOCRIT 24.5 % (39.0-53.0); HEMOGLOBIN 8.3 g/dL (13.0-17.5); LYMPH % 21 % (24-48); MEAN CORPUSCULAR HEMOGLOBIN 35 pg (25-35); MEAN CORPUSCULAR HGB CONC 34 g/dL (31-37); MEAN CORPUSCULAR VOLUME 102 fL (79-100); MONO % 14 % (0-9); NEUT % 60 % (31-73); PLATELET COUNT 125 x10^3/uL (140-400); RED CELL DISTRIBUTION WIDTH 17.1 % (11.5-14.5)
[2017-06-22] MEDS: HEPARIN PF for SUB-Q USE 5,000 UNIT/0.5 ML VIAL. SQ SCH ×3 (06:00→20:56)
[2017-06-22 06:02] LABS: CALCIUM 7.7 mg/dL (8.5-10.1); CREATININE 5.2 mg/dL (0.7-1.3); GFR 10.7; POTASSIUM 3.7 mmol/L (3.5-5.1)
[2017-06-22] MEDS: INSULIN ASPART 300 UNITS/3 ML INSULN.PEN SQ SCH ×6 (08:00→16:30)
[2017-06-22] MEDS: LIPASE/PROTEAS/AMYLASE 5/17/27 CAPSULE.DR. PO SCH ×3 (08:37→16:25)
[2017-06-22] MEDS: SPIRONOLACTONE 25 MG TABLET PO SCH (08:37)
[2017-06-22] MEDS: GEMFIBROZIL 600 MG TABLET. PO SCH ×2 (08:37→20:52)
[2017-06-22] MEDS: SENNOSIDES 8.6 MG TABLET PO SCH ×2 (08:37→20:51)
[2017-06-22] MEDS: ASPIRIN ENTERIC COATED 81 MG TABLET.DR. PO SCH (08:38)
[2017-06-22] MEDS: FLUDROCORTISONE 0.1 MG TABLET PO SCH (08:38)
[2017-06-22] MEDS: TAMSULOSIN 0.4 MG CAP.ER.24H. PO SCH (08:38)
[2017-06-22] MEDS: FOLIC ACID 1 MG TABLET. PO SCH (08:38)
[2017-06-22] MEDS: oxyCODONE/APAP 5/325 1 TAB TABLET PO SCH ×4 (08:38→20:52)
[2017-06-22] MEDS: PREGABALIN 75 MG CAPSULE PO SCH (08:38)
--- NOTE | 2017-06-22 10:32 | PDOC ---
PROGRESS NOTES Subjective Subjective He feels better. Objective Objective Vital Signs Date Time Temp Pulse Resp B/P (MAP) Pulse Ox O2 Delivery O2 Flow Rate FiO2 06/22/17 10:17 20 98 Room Air 2.0 06/22/17 07:02 98.1 70 98/48 (65) 98.1 Intake and Output 06/22/17 07:00 Intake Total 390 ml Balance 390 ml Intake Oral 390 ml # Bowel Movements 1 Physical Exam Physical Exam She is sitting on commode chair with cam walker boot on to his left ankle. Assessment Assessment Problems Medical Problems: (1) Hypotension Status: Acute Plan Plan of Care To see how he gets up and walks and home when he can get around with roller walker. Comment Review of Relevant I have reviewed the following items sarah (where applicable) has been applied. Labs Laboratory Tests Test 06/20/17 17:30 06/21/17 04:45 06/21/17 07:08 06/21/17 07:10 White Blood Count 8.5 x10^3/uL (4.0-11.0) 7.3 x10^3/uL (4.0-11.0) Red Blood Count 2.72 x10^6/uL (4.30-5.70) 2.55 x10^6/uL (4.30-5.70) Hemoglobin 8.9 g/dL (13.0-17.5) 8.5 g/dL (13.0-17.5) Hematocrit 27.9 % (39.0-53.0) 25.9 % (39.0-53.0) Mean Corpuscular Volume 102 fL (79-100) 102 fL (79-100) Mean Corpuscular Hemoglobin 33 pg (25-35) 33 pg (25-35) Mean Corpuscular Hemoglobin Concent 32 g/dL (31-37) 33 g/dL (31-37) Red Cell Distribution Width 17.1 % (11.5-14.5) 16.5 % (11.5-14.5) Platelet Count 157 x10^3/uL (140-400) 130 x10^3/uL (140-400) Neutrophils (%) (Auto) 71 % (31-73) 90 % (31-73) Lymphocytes (%) (Auto) 15 % (24-48) 6 % (24-48) Monocytes (%) (Auto) 10 % (0-9) 4 % (0-9) Eosinophils (%) (Auto) 4 % (0-3) 0 % (0-3) Basophils (%) (Auto) 1 % (0-3) 0 % (0-3) Neutrophils # (Auto) 6.0 x10^3uL (1.8-7.7) 6.6 x10^3uL (1.8-7.7) Lymphocytes # (Auto) 1.3 x10^3/uL (1.0-4.8) 0.4 x10^3/uL (1.0-4.8) Monocytes # (Auto) 0.9 x10^3/uL (0.0-1.1) 0.3 x10^3/uL (0.0-1.1) Eosinophils # (Auto) 0.3 x10^3/uL (0.0-0.7) 0.0 x10^3/uL (0.0-0.7) Basophils # (Auto) 0.1 x10^3/uL (0.0-0.2) 0.0 x10^3/uL (0.0-0.2) Prothrombin Time 15.7 SEC (11.7-14.0) Prothromb Time International Ratio 1.3 (0.8-1.1) D-Dimer (Marlin) 1.87 ug/mlFEU (0.00-0.50) Sodium Level 134 mmol/L (136-145) 134 mmol/L (136-145) 131 mmol/L (136-145) Potassium Level 4.6 mmol/L (3.5-5.1) 7.1 mmol/L (3.5-5.1) 6.5 mmol/L (3.5-5.1) Chloride Level 97 mmol/L (98-107) 98 mmol/L (98-107) 96 mmol/L (98-107) Carbon Dioxide Level 22 mmol/L (21-32) 21 mmol/L (21-32) 20 mmol/L (21-32) Anion Gap 15 (6-14) 15 (6-14) 15 (6-14) Blood Urea Nitrogen 67 mg/dL (8-26) 81 mg/dL (8-26) 79 mg/dL (8-26) Creatinine 9.0 mg/dL (0.7-1.3) 9.1 mg/dL (0.7-1.3) 9.6 mg/dL (0.7-1.3) Estimated GFR (Cockcroft-Gault) 5.7 5.6 5.3 Glucose Level 159 mg/dL (70-99) 317 mg/dL (70-99) 292 mg/dL (70-99) Calcium Level 8.3 mg/dL (8.5-10.1) 7.2 mg/dL (8.5-10.1) 7.7 mg/dL (8.5-10.1) Magnesium Level 2.0 mg/dL (1.8-2.4) Total Bilirubin 0.5 mg/dL (0.2-1.0) 0.4 mg/dL (0.2-1.0) Direct Bilirubin 0.2 mg/dL (0.0-0.2) Aspartate Amino Transf (AST/SGOT) 19 U/L (15-37) 15 U/L (15-37) Alanine Aminotransferase (ALT/SGPT) 16 U/L (16-63) 15 U/L (16-63) Alkaline Phosphatase 104 U/L (46-116) 98 U/L (46-116) Creatine Kinase 96 U/L (39-308) Creatine Kinase MB (Mass) 1.8 ng/mL (0.0-3.6) Creatine Kinase MB Relative Index 1.9 % (0-4) Troponin I Quantitative < 0.017 ng/mL (0.000-0.055) Total Protein 7.3 g/dL (6.4-8.2) 6.1 g/dL (6.4-8.2) Albumin 3.0 g/dL (3.4-5.0) 2.8 g/dL (3.4-5.0) Segmented Neutrophils % 82 % (35-66) Band Neutrophils % 8 % (0-9) Lymphocytes % 6 % (24-48) Monocytes % 3 % (0-10) Metamyelocytes % 1 % (0-0) Platelet Estimate Decreased (ADEQUATE) Polychromasia Slight Anisocytosis Slight Macrocytosis Present BUN/Creatinine Ratio 9 (6-20) Hemoglobin A1c 6.4 % (4.8-5.6) Albumin/Globulin Ratio 0.8 (1.0-1.7) Vitamin B12 Level 422 pg/mL (247-911) Serum Folate > 20.00 ng/ml (3.2-20.0) Glucose (Fingerstick) 288 mg/dL (70-99) Test 06/21/17 09:25 06/21/17 16:43 06/21/17 20:28 06/22/17 03:50 Hepatitis B Surface Antigen Negative (Negative) Hepatitis B Surface Antibody Non reactive (.) Glucose (Fingerstick) 278 mg/dL (70-99) 349 mg/dL (70-99) White Blood Count 5.0 x10^3/uL (4.0-11.0) Red Blood Count 2.40 x10^6/uL (4.30-5.70) Hemoglobin 8.3 g/dL (13.0-17.5) Hematocrit 24.5 % (39.0-53.0) Mean Corpuscular Volume 102 fL (79-100) Mean Corpuscular Hemoglobin 35 pg (25-35) Mean Corpuscular Hemoglobin Concent 34 g/dL (31-37) Red Cell Distribution Width 17.1 % (11.5-14.5) Platelet Count 125 x10^3/uL (140-400) Neutrophils (%) (Auto) 60 % (31-73) Lymphocytes (%) (Auto) 21 % (24-48) Monocytes (%) (Auto) 14 % (0-9) Eosinophils (%) (Auto) 5 % (0-3) Basophils (%) (Auto) 1 % (0-3) Neutrophils # (Auto) 3.0 x10^3uL (1.8-7.7) Lymphocytes # (Auto) 1.0 x10^3/uL (1.0-4.8) Monocytes # (Auto) 0.7 x10^3/uL (0.0-1.1) Eosinophils # (Auto) 0.3 x10^3/uL (0.0-0.7) Basophils # (Auto) 0.0 x10^3/uL (0.0-0.2) Sodium Level 139 mmol/L (136-145) Potassium Level 3.7 mmol/L (3.5-5.1) Chloride Level 100 mmol/L (98-107) Carbon Dioxide Level 28 mmol/L (21-32) Anion Gap 11 (6-14) Blood Urea Nitrogen 42 mg/dL (8-26) Creatinine 5.2 mg/dL (0.7-1.3) Estimated GFR (Cockcroft-Gault) 10.7 Glucose Level 181 mg/dL (70-99) Calcium Level 7.7 mg/dL (8.5-10.1) Test 06/22/17 07:02 Glucose (Fingerstick) 125 mg/dL (70-99) Laboratory Tests Test 06/21/17 16:43 06/21/17 20:28 06/22/17 03:50 06/22/17 07:02 Glucose (Fingerstick) 278 mg/dL (70-99) 349 mg/dL (70-99) 125 mg/dL (70-99) White Blood Count 5.0 x10^3/uL (4.0-11.0) Red Blood Count 2.40 x10^6/uL (4.30-5.70) Hemoglobin 8.3 g/dL (13.0-17.5) Hematocrit 24.5 % (39.0-53.0) Mean Corpuscular Volume 102 fL (79-100) Mean Corpuscular Hemoglobin 35 pg (25-35) Mean Corpuscular Hemoglobin Concent 34 g/dL (31-37) Red Cell Distribution Width 17.1 % (11.5-14.5) Platelet Count 125 x10^3/uL (140-400) Neutrophils (%) (Auto) 60 % (31-73) Lymphocytes (%) (Auto) 21 % (24-48) Monocytes (%) (Auto) 14 % (0-9) Eosinophils (%) (Auto) 5 % (0-3) Basophils (%) (Auto) 1 % (0-3) Neutrophils # (Auto) 3.0 x10^3uL (1.8-7.7) Lymphocytes # (Auto) 1.0 x10^3/uL (1.0-4.8) Monocytes # (Auto) 0.7 x10^3/uL (0.0-1.1) Eosinophils # (Auto) 0.3 x10^3/uL (0.0-0.7) Basophils # (Auto) 0.0 x10^3/uL (0.0-0.2) Sodium Level 139 mmol/L (136-145) Potassium Level 3.7 mmol/L (3.5-5.1) Chloride Level 100 mmol/L (98-107) Carbon Dioxide Level 28 mmol/L (21-32) Anion Gap 11 (6-14) Blood Urea Nitrogen 42 mg/dL (8-26) Creatinine 5.2 mg/dL (0.7-1.3) Estimated GFR (Cockcroft-Gault) 10.7 Glucose Level 181 mg/dL (70-99) Calcium Level 7.7 mg/dL (8.5-10.1) Medications Current Medications Sodium Chloride 500 ml @ 500 mls/hr 1X ONCE IV Last administered on 17:47; Start 06/20/17 at 17:45; Stop 06/20/17 at 18:44; Status DC Iohexol (Omnipaque 300 Mg/ml) 60 ml 1X ONCE IV Last administered on 06/20/17 18:08; Start 06/20/17 at 18:00; Stop 06/20/17 at 18:01; Status DC Info (Do NOT chart on this entry -- for MONITORING) 1 each PRN DAILY PRN MC SEE COMMENTS; Start 06/20/17 at 18:00; Stop 06/22/17 at 17:59 Hydrocortisone Sodium Succinate (Solu-CORTEF) 100 mg 1X ONCE IV Last administered on 06/20/17 20:46; Start 06/20/17 at 20:45; Stop 06/20/17 at 20:46 ; Status DC Alprazolam (Xanax) 0.5 mg TID PO Last administered on 06/20/17 23:49; Start at 23:00; Stop 06/21/17 at 16:50; Status DC Aspirin (Ecotrin) 81 mg DAILY PO Last administered on 06/22/17 08:38; Start at 09:00 Folic Acid (Folic Acid) 1 mg DAILY PO Last administered on 06/22/17 08:38; Start 06/21/17 at 09:00 Gemfibrozil (Lopid) 600 mg BID PO Last administered on 06/22/17 08:37; Start 06/21/17 at 09:00 Insulin Aspart (NovoLOG) 5 units TIDAC SQ Last administered on 06/22/17 08:45 ; Start 06/21/17 at 07:30 Insulin Detemir (Levemir) 15 units QHS SQ ; Start 06/21/17 at 21:00; Stop at 21:00; Status DC Amylase/Lipase/ Protease (Zenpep 5,000) 4 cap TIDAC PO Last administered on 08:37; Start 06/21/17 at 07:30 Oxycodone/ Acetaminophen (Percocet 5/325) 1 tab QID PO Last administered on 10:17; Start 06/21/17 at 09:00 Pregabalin (Lyrica) 75 mg DAILY PO Last administered on 06/22/17 08:38; Start 06/21/17 at 09:00 Ropinirole HCl (Requip) 1 mg HS PO Last administered on 06/20/17 23:49; Start 06/20/17 at 23:00 Sennosides (Senna) 25.8 mg BID PO Last administered on 06/22/17 08:37; Start 06/21/17 at 09:00 Spironolactone (Aldactone) 25 mg DAILY PO Last administered on 06/22/17 08:37 ; Start 06/21/17 at 09:00 Tamsulosin HCl (Flomax) 0.8 mg DAILY PO Last administered on 06/22/17 08:38; Start 06/21/17 at 09:00 Fludrocortisone Acetate (Florinef) 0.1 mg DAILY PO Last administered on 08:38; Start 06/21/17 at 09:00 Insulin Aspart (NovoLOG) 0-7 UNITS TIDWMEALS SQ Last administered on 06/21/17 08:45; Start 06/21/17 at 08:00; Stop 06/21/17 at 16:48; Status DC Dextrose (Dextrose 50%-Water Syringe) 12.5 gm PRN Q15MIN PRN IV SEE COMMENTS; Start 06/20/17 at 23:30 Sodium Chloride 500 ml @ 500 mls/hr 1X ONCE IV Last administered on 02:29; Start 06/21/17 at 02:30; Stop 06/21/17 at 03:29; Status DC Sodium Chloride 1,000 ml @ 100 mls/hr Q10H IV ; Start 06/21/17 at 09:00; Stop 06/21/17 at 14:40; Status DC Sodium Chloride 1,000 ml @ 1,000 mls/hr Q1H PRN IV hypotension; Start 06/21/17 at 09:10; Stop 06/21/17 at 15:09; Status DC Albumin Human 200 ml @ 200 mls/hr 1X PRN PRN IV Hypotension; Start 06/21/17 at 09:15; Stop 06/21/17 at 15:14; Status DC Acetaminophen (Tylenol) 500 mg 1X PRN PRN PO MILD PAIN / TEMP; Start 06/21/17 at 09:15; Stop 06/21/17 at 21:00; Status DC Diphenhydramine HCl (Benadryl) 25 mg 1X PRN PRN IV ITCHING; Start 06/21/17 at 09:15; Stop 06/21/17 at 21:00; Status DC Sodium Chloride (Normal Saline Flush) 10 ml 1X PRN PRN IV AP 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; Start 06/21/17 at 09:15; Stop 06/21/17 at 21:00; Status DC Sodium Chloride (Normal Saline Flush) 10 ml 1X PRN PRN IV OPTHALMIC TECH 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; Start 06/21/17 at 09:15; Stop 06/21/17 at 21:00; Status DC Sodium Chloride 1,000 ml @ 400 mls/hr Q2H30M PRN IV PATENCY; Start 06/21/17 at 09:10; Stop 06/21/17 at 21:09; Status DC Info (PHARMACY MONITORING -- do not chart) 1 each PRN DAILY PRN MC SEE COMMENTS ; Start 06/21/17 at 09:15 Info (PHARMACY MONITORING -- do not chart) 1 each PRN DAILY PRN MC SEE COMMENTS ; Start 06/21/17 at 09:15; Stop 06/21/17 at 09:29; Status DC Darbepoetin Joshua (Aranesp) 60 mcg Tu SQ Last administered on 06/21/17 21:15; Start 06/21/17 at 21:00 Insulin Detemir (Levemir) 20 units QHS SQ Last administered on 06/21/17 21:25 ; Start 06/21/17 at 21:00 Insulin Aspart (NovoLOG) 0-9 UNITS TIDWMEALS SQ Last administered on 06/21/17 17:46; Start 06/21/17 at 17:00 Alprazolam (Xanax) 0.5 mg PRN TID PRN PO anxiety; Start 06/21/17 at 17:00 Insulin Aspart (NovoLOG) 10 units 1X ONCE SQ Last administered on 06/21/17 21 :24; Start 06/21/17 at 21:00; Stop 06/21/17 at 21:01; Status DC Heparin Sodium (Porcine) (Heparin Sq) 5,000 unit Q8HRS SQ ; Start 06/22/17 at 06 :00 Active Scripts Active Levemir Flextouch (Insulin Detemir) 100 Unit/1 Ml Insuln.pen 15 Units SQ QHS 30 Days Novolog Flexpen (Insulin Aspart) 100 Unit/1 Ml Insuln.pen 5 Units SQ TIDAC 30 Days Lasix (Furosemide) 80 Mg Tablet 1 Tab PO DAILY Reported Hydralazine Hcl 10 Mg Tablet 1 Tab PO BID Percocet 5-325 Mg Tablet (Oxycodone/Acetaminophen) 1 Each Tablet 1 Tab PO QID Lyrica (Pregabalin) 75 Mg Capsule 1 Cap PO DAILY Lantus Solostar (Insulin Glargine,Hum.rec.anlog) 100 Unit/1 Ml Insuln.pen 24 Unit SQ QHS Humalog (Insulin Lispro) 100 Unit/1 Ml Cartridge 8 Unit SQ TIDAC Folic Acid 1 Mg Tablet 1 Tab PO DAILY Aspir 81 (Aspirin) 81 Mg Tablet. 1 Tab PO DAILY Senokot (Sennosides) 8.6 Mg Tablet 3 Tab PO BID Gemfibrozil 600 Mg Tablet 1 Tab PO BID Alprazolam 0.5 Mg Tablet 1 Tab PO TID Fish Oil 1,000 Mg Capsule ([place]-3 Fatty Acids/Fish Oil) 1 Each Capsule 4 Each PO DAILY Pancrelipase 5,000 Unit Cap (Lipase/Protease/Amylase) 1 Each Capsule. 4 Each PO Prilosec Otc (Omeprazole Magnesium) 20 Mg Tablet. 20 Mg PO DAILY Spironolactone 25 Mg Tablet 25 Mg PO DAILY Ropinirole Hcl 1 Mg Tablet 1 Mg PO HS Tamsulosin Hcl 0.4 Mg Cap.er.24h 0.8 Mg PO DAILY Travatan Z (Travoprost) 5 Ml Drops 5 Ml OP Vitals/I & O Vital Sign - Last 24 Hours 06/21/17 06/21/17 06/21/17 06/21/17 14:24 14:31 16:13 16:14 Temp 97.5 97.5 Pulse 78 Resp 17 B/P (MAP) 110/40 (63) Pulse Ox 96 96 96 96 O2 Delivery Room Air Room Air Room Air Room Air 06/21/17 06/21/17 06/21/17 06/21/17 19:30 20:20 23:28 23:35 Temp 98.6 98.5 98.6 98.5 Pulse 71 70 Resp 18 18 B/P (MAP) 93/34 (53) 91/39 (56) Pulse Ox 93 90 98 O2 Delivery Room Air Room Air Room Air Nasal Cannula O2 Flow Rate 2.0 06/22/17 06/22/17 06/22/17 06/22/17 03:46 07:02 08:00 10:17 Temp 97.7 98.1 97.7 98.1 Pulse 70 70 Resp 18 16 20 B/P (MAP) 94/42 (59) 98/48 (65) Pulse Ox 100 98 98 O2 Delivery Nasal Cannula Nasal Cannula Room Air Room Air O2 Flow Rate 2.0 2.0 2.0 2.0 Intake and Output 06/21/17 06/21/17 06/22/17 15:00 23:00 07:00 Intake Total 290 ml 100 ml Balance 290 ml 100 ml CORBIN CHATMAN MD Jun 22, 2017 10:32
--- NOTE | 2017-06-22 11:04 | PDOC ---
PROGRESS NOTES Chief Complaint Chief Complaint Hypotension Hyperkalemia ESRD ASSESSMENT AND PLAN: 1. Hypotension: Hx of HTN - ? O/D of BP meds - unlikely 2 days after stopping all. continue to hold. worse post HD. give IVF, ?volume depleted. on corticosteroids, increased. 2. ESRD: on HD T//S 3. Hyperkalemia: severe at admit. corrected w/ HD 4. CAD/arrhythmia/sp pacer: now eith hypotension unclear etiology. obtain echo, cards consult 5. DM: better controlled with adjusted insulin levemir, and ISS 6. 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 on EPO, iron with HD 7. PCM: moderate with morbid obesity (BMI 38) 8. prophylaxis: heparin sq History of Present Illness History of Present Illness tired. no pain. not very active. Vitals Vitals Vital Signs Date Time Temp Pulse Resp B/P (MAP) Pulse Ox O2 Delivery O2 Flow Rate FiO2 06/22/17 10:41 97.4 71 17 98/41 (60) 95 Room Air 97.4 06/22/17 10:17 2.0 Physical Exam General: Alert, Oriented X3, Cooperative, No acute distress Heart: Regular rate Lungs: Clear Abdomen: Normal bowel sounds, Soft, No tenderness Extremities: Other (left ankle swollen and tender) Skin: Other (mult echymoses over UEs) Labs LABS Laboratory Tests Test 06/21/17 16:43 06/21/17 20:28 06/22/17 03:50 06/22/17 07:02 Glucose (Fingerstick) 278 mg/dL (70-99) 349 mg/dL (70-99) 125 mg/dL (70-99) White Blood Count 5.0 x10^3/uL (4.0-11.0) Red Blood Count 2.40 x10^6/uL (4.30-5.70) Hemoglobin 8.3 g/dL (13.0-17.5) Hematocrit 24.5 % (39.0-53.0) Mean Corpuscular Volume 102 fL (79-100) Mean Corpuscular Hemoglobin 35 pg (25-35) Mean Corpuscular Hemoglobin Concent 34 g/dL (31-37) Red Cell Distribution Width 17.1 % (11.5-14.5) Platelet Count 125 x10^3/uL (140-400) Neutrophils (%) (Auto) 60 % (31-73) Lymphocytes (%) (Auto) 21 % (24-48) Monocytes (%) (Auto) 14 % (0-9) Eosinophils (%) (Auto) 5 % (0-3) Basophils (%) (Auto) 1 % (0-3) Neutrophils # (Auto) 3.0 x10^3uL (1.8-7.7) Lymphocytes # (Auto) 1.0 x10^3/uL (1.0-4.8) Monocytes # (Auto) 0.7 x10^3/uL (0.0-1.1) Eosinophils # (Auto) 0.3 x10^3/uL (0.0-0.7) Basophils # (Auto) 0.0 x10^3/uL (0.0-0.2) Sodium Level 139 mmol/L (136-145) Potassium Level 3.7 mmol/L (3.5-5.1) Chloride Level 100 mmol/L (98-107) Carbon Dioxide Level 28 mmol/L (21-32) Anion Gap 11 (6-14) Blood Urea Nitrogen 42 mg/dL (8-26) Creatinine 5.2 mg/dL (0.7-1.3) Estimated GFR (Cockcroft-Gault) 10.7 Glucose Level 181 mg/dL (70-99) Calcium Level 7.7 mg/dL (8.5-10.1) MELISSA ESPAÑA MD Jun 22, 2017 11:04
[2017-06-22] MEDS ORDERED: IV NORMAL SALINE 500ML BAG 500 ML IV PRN (11:15)
[2017-06-22] MEDS ORDERED: IV NORMAL SALINE 500ML BAG 500 ML IV ONE (11:30)
--- NOTE | 2017-06-22 13:33 | PDOC2 ---
ANYA BENITEZ FORENSIC ARTIST 06/22/17 1333: CARDIAC CONSULT DATE OF CONSULT Date of Consult DATE: 06/22/17 TIME: 12:41 REASON FOR CONSULT Reason for Consult: Hypotension REFERRING PHYSICIAN Referring Physician: Rebekah SOURCE Source: Chart review, Patient HISTORY OF PRESENT ILLNESS HISTORY OF PRESENT ILLNESS This is a pleasant 81 yo male admitted for complians of dizziness. Pt initially was at [facility] on 06/19/2017 for falls from feeling dizzy and appears to have sprained his left ankle in the process. He was then released but came back due to the same problem of hypotension. He has been having intermittent dizziness in the last few weeks and has been having multiple dizzy spells. Denies any vertigo, unilateral weakness, dysarthria, or any visual or auditory disturbances. Reports that he takes 25 mg Metoprolol tartrate only once a day and low dose hydralazine. He has chronic back pain and takes percocet routinely. He has an internal back spinal stimulator in which it has not been checked in the last 3 yrs since they were in [place]. He has a pacemaker. Denies any CP, palpitations, SOA. Reports hydration adequacy and compliance with his dialysis. Presently he is sitting up without complains. He saw his verifying specialist last 01/2017 and was told that he was doing well. PAST MEDICAL HISTORY Past Medical History Cardiovascular: AFIB, CAD (s/p CABG ), CHF, HTN, [place], Hyperlipidemia, Other ( cardiomyopathy ), SSS Pulmonary: Pneumonia, Other (JOSHUA) GI: GERD Heme/Onc: Anemia NOS, Cancer (skin) Musculoskeletal: low back pain, Osteoarthritis, chronic pain syndrome Renal/: ESRD, urinary incontinence, BPH Endocrine: Diabetes Neuro: seizures, SAH PAST SURGICAL HISTORY Past Surgical History Pacemaker, Tonsillectomy, CABG FAMILY HISTORY Family History: Heart Disease SOCIAL HISTORY Smoke: No ALCOHOL: none Drugs: None CURRENT MEDICATIONS CURRENT MEDICATIONS Current Medications Medications (Trade) Dose Ordered Sig/Tracy Route PRN Reason Start Time Stop Time Status Last Admin Dose Admin Darbepoetin Joshua (Aranesp) 60 mcg Tu SQ 06/21/17 21:00 06/21/17 21:15 Insulin Detemir (Levemir) 20 units QHS SQ 06/21/17 21:00 06/21/17 21:25 Insulin Aspart (NovoLOG) 0-9 UNITS TIDWMEALS SQ 06/21/17 17:00 06/22/17 12:12 Insulin Aspart (NovoLOG) 10 units 1X ONCE SQ 06/21/17 21:00 06/21/17 21:01 DC 06/21/17 21:24 Heparin Sodium (Porcine) (Heparin Sq) 5,000 unit Q8HRS SQ 06/22/17 06:00 06/22/17 12:12 Sodium Chloride 500 ml @ 500 mls/hr 1X ONCE IV 06/22/17 11:30 06/22/17 12:29 DC 06/22/17 11:24 ALLERGIES ALLERGIES: Coded Allergies: Ecnuyuw-Ukx-Esg Reductase Inhibitor (Verified Allergy, Severe, Brain swelling. , 09/18/15) Pt was taking Gabapentin with a Statin and per . "It almost killed him." gabapentin (Verified Allergy, Severe, Brain swelling, 09/18/15) Per pt had Gabapentin with a Statin and it caused brain swelling, "almost killed him." sulfamethoxazole (Verified Allergy, Intermediate, 01/01/17) trimethoprim (Verified Allergy, Intermediate, 01/01/17) morphine (Verified Adverse Reaction, Severe, 02/15/17) ROS Review of System 14 point ROS evaluated with pertinent positives noted per HPI PHYSICAL EXAM General: Alert, Oriented X3, Cooperative, No acute distress HEENT: Atraumatic, Mucous membr. moist/pink Lungs: Other (diminshed bases) Heart: Regular rate (SR), Normal S1, Normal S2, Other (3/6 systolic murmur to LLS border) Abdomen: Soft, No tenderness Extremities: No cyanosis, Other (1+ bilateral LE pitting edema) Skin: No breakdown, No significant lesion Neuro: Normal speech, Sensation intact Psych/Mental Status: Mental status NL, Mood NL MUSCULOSKELETAL: Osteoarthritic changes both hands VITALS VITALS Vital Signs Date Time Temp Pulse Resp B/P (MAP) Pulse Ox O2 Delivery O2 Flow Rate FiO2 06/22/17 11:39 65 18 113/46 (68) 95 Room Air 06/22/17 11:11 2.0 06/22/17 10:41 97.4 97.4 LABS Lab: Laboratory Tests Test 06/21/17 16:43 06/21/17 20:28 06/22/17 03:50 06/22/17 07:02 Glucose (Fingerstick) 278 mg/dL (70-99) 349 mg/dL (70-99) 125 mg/dL (70-99) White Blood Count 5.0 x10^3/uL (4.0-11.0) Red Blood Count 2.40 x10^6/uL (4.30-5.70) Hemoglobin 8.3 g/dL (13.0-17.5) Hematocrit 24.5 % (39.0-53.0) Mean Corpuscular Volume 102 fL (79-100) Mean Corpuscular Hemoglobin 35 pg (25-35) Mean Corpuscular Hemoglobin Concent 34 g/dL (31-37) Red Cell Distribution Width 17.1 % (11.5-14.5) Platelet Count 125 x10^3/uL (140-400) Neutrophils (%) (Auto) 60 % (31-73) Lymphocytes (%) (Auto) 21 % (24-48) Monocytes (%) (Auto) 14 % (0-9) Eosinophils (%) (Auto) 5 % (0-3) Basophils (%) (Auto) 1 % (0-3) Neutrophils # (Auto) 3.0 x10^3uL (1.8-7.7) Lymphocytes # (Auto) 1.0 x10^3/uL (1.0-4.8) Monocytes # (Auto) 0.7 x10^3/uL (0.0-1.1) Eosinophils # (Auto) 0.3 x10^3/uL (0.0-0.7) Basophils # (Auto) 0.0 x10^3/uL (0.0-0.2) Sodium Level 139 mmol/L (136-145) Potassium Level 3.7 mmol/L (3.5-5.1) Chloride Level 100 mmol/L (98-107) Carbon Dioxide Level 28 mmol/L (21-32) Anion Gap 11 (6-14) Blood Urea Nitrogen 42 mg/dL (8-26) Creatinine 5.2 mg/dL (0.7-1.3) Estimated GFR (Cockcroft-Gault) 10.7 Glucose Level 181 mg/dL (70-99) Calcium Level 7.7 mg/dL (8.5-10.1) Test 06/22/17 11:28 Glucose (Fingerstick) 251 mg/dL (70-99) ECHOCARDIOGRAM ECHOCARDIOGRAM <Conclusion> Left ventricle systolic function is low normal. EF 50% Grossly normal LV segmental motion. The right ventricle is moderately dilated. Doppler and Color Flow revealed mild tricuspid regurgitation. The PA pressure was estimated at 33 mmHg. Technically difficult study DATE: 01/04/17 09 HEART CATH HEART CATH HEART CATH Conclusion This patient has severe [place] vessel coronary artery disease including left main disease. His grafts are open but in the graft to the PDA there is disease of the [place] PDA with a significant stenosis. The left main has an ostial lesion and it feeds a small circumflex and a small marginal but due to the LAD being totally occluded at the ostium there is no backflow from the graft to the diagonal of the graft to the LAD. The obtuse marginal is also 100% occluded therefore there is no back flow into the circumflex and the other marginal from that graft. The patient's MPI showed lateral wall ischemia and this may be due to the stenosis of the left main and the circumflex. Since this is a protected left main of sorts because of open grafts to the diagonal the LAD and the obtuse marginal we may consider attempting to stent the left main ostium and the mid segment of the LAD. In addition to this the PDA may be able to be stented via the saphenous vein graft to the PDA. However in view of the patient's renal insufficiency I would rather wait 1-2 weeks before bringing the patient back to attempt to do the multi-vessel stenting. This will be discussed with the patient his family and Dr. Bonner DATE: 11/27/14 1601 ASSESSMENT/PLAN ASSESSMENT/PLAN 1. Presyncope/Hypotension: Multifactorial with synergistic chronic opioid use, benzodiazepine, lyrica 2. Hx of multiple falls: last episode 2 days ago related to above with left sprain ankle 3. Chronic pain syndrome: Has a spinal stimulator [place] that has not been checked for 3 yrs. 4. ESRD 5. CAD: CABG in the past. Follows with [facility] 6. SSS with PPM: ?[facility]. SR with RBBB first degree AV block. 7. Hx of SAH: recent 8. Macrocytic anemia with coagulopathy 9. PAFIB 10. DM2 Recommendations 1. Interrogate device. Will likely need to check spinal stimulator and possibly curb back pain meds. 2. Orthostatic readings and if positive then abdominal binder and compression stockings. 3. Hold BP meds for now. Agree with sharon. 4. ASA for stroke prevention. Not an OAC/NOAC candidate 5. Push fluids. No lasix at this time. Problems: WALKER WHITE MD 06/22/17 2215: CARDIAC CONSULT ALLERGIES ALLERGIES: Coded Allergies: Pkrszgt-Mgd-Stc Reductase Inhibitor (Verified Allergy, Severe, Brain swelling. , 09/18/15) Pt was taking Gabapentin with a Statin and per . "It almost killed him." gabapentin (Verified Allergy, Severe, Brain swelling, 09/18/15) Per pt had Gabapentin with a Statin and it caused brain swelling, "almost killed him." sulfamethoxazole (Verified Allergy, Intermediate, 01/01/17) trimethoprim (Verified Allergy, Intermediate, 01/01/17) morphine (Verified Adverse Reaction, Severe, 02/15/17) ASSESSMENT/PLAN ASSESSMENT/PLAN Pt. seen and examined. AGree with above WARNING ANALYST note. 81 y.o male with syncope due to low BP Plan as above. Problems: ANYA BENITEZ APRN Jun 22, 2017 13:33 WALKER WHITE MD Jun 22, 2017 22:15
--- NOTE | 2017-06-22 15:03 | PDOC ---
Renal-Progress Notes Subjective Notes Notes NO NEW COMPLAINTS History of Present Illness Hx of present illness STABLE Vitals Vitals Vital Signs Date Time Temp Pulse Resp B/P (MAP) Pulse Ox O2 Delivery O2 Flow Rate FiO2 06/22/17 14:38 95 17 147/51 (83) 94 Room Air 06/22/17 14:35 98.1 98.1 06/22/17 11:11 2.0 Weight Weight [ ] I.O. Intake and Output Intake and Output 06/22/17 07:00 Intake Total 390 ml Balance 390 ml Intake Oral 390 ml # Bowel Movements 1 Labs Labs Laboratory Tests Test 06/21/17 16:43 06/21/17 20:28 06/22/17 03:50 06/22/17 07:02 Glucose (Fingerstick) 278 mg/dL (70-99) 349 mg/dL (70-99) 125 mg/dL (70-99) White Blood Count 5.0 x10^3/uL (4.0-11.0) Red Blood Count 2.40 x10^6/uL (4.30-5.70) Hemoglobin 8.3 g/dL (13.0-17.5) Hematocrit 24.5 % (39.0-53.0) Mean Corpuscular Volume 102 fL (79-100) Mean Corpuscular Hemoglobin 35 pg (25-35) Mean Corpuscular Hemoglobin Concent 34 g/dL (31-37) Red Cell Distribution Width 17.1 % (11.5-14.5) Platelet Count 125 x10^3/uL (140-400) Neutrophils (%) (Auto) 60 % (31-73) Lymphocytes (%) (Auto) 21 % (24-48) Monocytes (%) (Auto) 14 % (0-9) Eosinophils (%) (Auto) 5 % (0-3) Basophils (%) (Auto) 1 % (0-3) Neutrophils # (Auto) 3.0 x10^3uL (1.8-7.7) Lymphocytes # (Auto) 1.0 x10^3/uL (1.0-4.8) Monocytes # (Auto) 0.7 x10^3/uL (0.0-1.1) Eosinophils # (Auto) 0.3 x10^3/uL (0.0-0.7) Basophils # (Auto) 0.0 x10^3/uL (0.0-0.2) Sodium Level 139 mmol/L (136-145) Potassium Level 3.7 mmol/L (3.5-5.1) Chloride Level 100 mmol/L (98-107) Carbon Dioxide Level 28 mmol/L (21-32) Anion Gap 11 (6-14) Blood Urea Nitrogen 42 mg/dL (8-26) Creatinine 5.2 mg/dL (0.7-1.3) Estimated GFR (Cockcroft-Gault) 10.7 Glucose Level 181 mg/dL (70-99) Calcium Level 7.7 mg/dL (8.5-10.1) Test 06/22/17 11:28 Glucose (Fingerstick) 251 mg/dL (70-99) Review of Systems Constitutional: yes: weakness, alert, oriented Ears/Nose/Throat: Yes: no symptom reported Eyes: Yes: no symptom reported Pulmonary: Yes no symptom reported Cardiovascular: Yes no symptom reported Gastrointestional: Yes: no symptom reported Genitourinary: Yes: no symptom reported Psychiatric/Neurological: Yes: no symptom reported Hematologic/Lymphatic: Yes: no symptom reported Physical Exam General Appearance: no apparent distress Skin: warm Respiratory: bilateral CTA Heart: S1S2 Abdomen: soft, bowel sounds present Extremities: pulses present Neurology: alert Musculoskeletal: Osteoarthritis Assessment Assessment IMP HYPOTENSION-? ORTHOSTASIS RECENT FALLS DUE TO THIS ANEMIA DM II ESRD PLAN CARDIOLOGY TO SEE PT WILL ADD [facility] HD TOMORROW ARACELI CANSECO MD Jun 22, 2017 15:03
--- NOTE | 2017-06-22 15:38 | CARD ---
APPROVED REPORT EXAM: Two-dimensional and M-mode echocardiogram with Doppler and color Doppler. Other Information Quality : FairHR: 77bpm Rhythm : NSR INDICATION Hypotension RISK FACTORS Obesity 2D DIMENSIONS RVDd4.2 (2.9-3.5cm)Left Atrium(2D)4.3 (1.6-4.0cm) IVSd1.2 (0.7-1.1cm)Aortic Root(2D)2.5 (2.0-3.7cm) LVDd4.8 (3.9-5.9cm)LVOT Diameter2.3 (1.8-2.4cm) PWd1.2 (0.7-1.1cm)LVDs3.2 (2.5-4.0cm) FS (%) 33.5 %SV66.6 ml LVEF(%)62.2 (>50%) Aortic Valve AoV Peak Luis Manuel.171.8cm/sAoV VTI32.3cm AO Peak GR.11.8mmHgLVOT Peak Luis Manuel.101.4cm/s AO Mean GR.6mmHgAVA (VMAX)2.44cm2 Mitral Valve MV E Plnrmnio879.9cm/sMV E Peak Gr.7mmHg MV DECEL PMLV119isBD A Mbvlvesf387.5cm/s MV E Mean Gr.3mmHgE/A Ratio1.2 MV A Kcxbrmgu390yp Pulmonary Valve PV Peak Pjpzzfzu087.6cm/s Tricuspid Valve TR P. Dlwtobof242pf/sTR Peak Gr.26mmHg Pulmonary Vein S1 Oabdtuxb92.3cm/sD2 Gudrcmoi74.7cm/s PVa sbqoqqkt14lbip LEFT VENTRICLE The left ventricle is normal size. There is mild left ventricular hypertrophy. The left ventricular s ystolic function is normal. The Ejection Fraction is 55-60%. There is normal LV segmental wall motion . Transmitral Doppler flow pattern is Grade II-pseudonormal filling dynamics. RIGHT VENTRICLE The right ventricle is normal size. There is normal right ventricular wall thickness. The right ventr icular systolic function is normal. There is a pacemaker lead in the right ventricle. ATRIA The left atrium size is normal. The right atrium size is normal. The interatrial septum is intact wit h no evidence for an atrial septal defect or patent foramen ovale as noted on 2-D or Doppler imaging. AORTIC VALVE The aortic valve is mildly sclerotic. The aortic valve is trileaflet. Doppler and Color Flow revealed no significant aortic regurgitation. There is no significant aortic valvular stenosis. MITRAL VALVE Mitral annular calcification is mild. The mitral valve leaflets are thickened. There is no evidence o f mitral valve prolapse. There is no mitral valve stenosis. Doppler and Color Flow revealed no mitral valve regurgitation noted. TRICUSPID VALVE Doppler and Color Flow revealed mild tricuspid regurgitation. The pulmonary artery systolic pressure is estimated at 29 mmHg. There is no pulmonary hypertension. PULMONIC VALVE The pulmonary valve is not well visualized but appears to opens well. Doppler and Color Flow revealed pulmonic valvular regurgitation. There is no pulmonic valvular stenosis by spectral Doppler. GREAT VESSELS The aortic root is normal in size. The ascending aorta is normal in size. The pulmonary artery is nor mal. The IVC is normal in size and collapses >50% with inspiration. PERICARDIAL EFFUSION There is no evidence of significant pericardial effusion. Critical Notification Critical Value: No <Conclusion> The left ventricular systolic function is normal. The Ejection Fraction is 55-60%. There is normal LV segmental wall motion. There is a pacemaker lead in the right ventricle. Mild tricuspid regurgitation. The pulmonary artery systolic pressure is estimated at 29 mmHg. There is no evidence of significant pericardial effusion.
[2017-06-22] MEDS: MIDODRINE 2.5 MG TABLET PO SCH (16:48)
[2017-06-22] MEDS: rOPINIRole 1 MG TABLET. PO SCH (20:51)
[2017-06-22] MEDS: INSULIN DETEMIR 300 UNITS/3 ML INSULN.PEN. SQ SCH (20:57)
[2017-06-22] MEDS ORDERED: FLUDROCORTISONE 0.1 MG TABLET PO SCH (21:00)
[2017-06-23] VITALS (8 sets, daily range): BP systolic 105–146; BP diastolic 31–63
[2017-06-23 05:07] LABS: BASO % 1 % (0-3); EOS % 7 % (0-3); HEMATOCRIT 25.3 % (39.0-53.0); HEMOGLOBIN 8.4 g/dL (13.0-17.5); LYMPH # 0.9 x10^3/uL (1.0-4.8); LYMPH % 19 % (24-48); MEAN CORPUSCULAR HEMOGLOBIN 34 pg (25-35); MEAN CORPUSCULAR HGB CONC 33 g/dL (31-37); MEAN CORPUSCULAR VOLUME 100 fL (79-100); MONO % 13 % (0-9); NEUT % 61 % (31-73); PLATELET COUNT 125 x10^3/uL (140-400); RED BLOOD COUNT 2.52 x10^6/uL (4.30-5.70); RED CELL DISTRIBUTION WIDTH 16.9 % (11.5-14.5); WHITE BLOOD COUNT 4.7 x10^3/uL (4.0-11.0)
[2017-06-23 05:23] LABS: CALCIUM 7.4 mg/dL (8.5-10.1); CREATININE 6.7 mg/dL (0.7-1.3); POTASSIUM 3.9 mmol/L (3.5-5.1)
[2017-06-23] MEDS: MIDODRINE 2.5 MG TABLET PO SCH (06:17)
[2017-06-23] MEDS: HEPARIN PF for SUB-Q USE 5,000 UNIT/0.5 ML VIAL. SQ SCH ×3 (06:18→21:33)
[2017-06-23] MEDS: LIPASE/PROTEAS/AMYLASE 5/17/27 CAPSULE.DR. PO SCH ×3 (07:30→16:30)
[2017-06-23] MEDS: INSULIN ASPART 300 UNITS/3 ML INSULN.PEN SQ SCH ×6 (08:33→17:58)
[2017-06-23] MEDS: SENNOSIDES 8.6 MG TABLET PO SCH ×2 (09:00→21:15)
[2017-06-23] MEDS: GEMFIBROZIL 600 MG TABLET. PO SCH ×2 (09:00→21:15)
--- NOTE | 2017-06-23 09:46 | EKG ---
[facility] [address] [place] [address] Test Date: 2017-06-23 Test Time: 09:40:00 Pat Name: GABO WHITMAN Department: Room: [facility] Gender: M [employer]: : 1935 Requested By: MELISSA ESPAÑA Order Number: [id number] Reading MD: Dejuan Meade Measurements Intervals [place] Rate: 70 P: -90 AK: 178 QRS: -41 QRSD: 104 T: 24 QT: 400 QTc: 435 Interpretive Statements SR V-PACED Electronically Signed On 06-23-2017 14:32:35 CDT by Dejuan Meade
[2017-06-23] MEDS ORDERED: DIALYSIS PATIENT. MC PRN ×2 (10:00)
[2017-06-23] MEDS ORDERED: IV NORMAL SALINE 1000ML BAG 1,000 ML IV PRN ×2 (10:00)
[2017-06-23] MEDS ORDERED: 0.9 % SODIUM CHLORIDE 10 ML DISP.SYRIN. IV PRN ×2 (10:00)
--- NOTE | 2017-06-23 10:27 | PDOC ---
PROGRESS NOTES Subjective Subjective He c/o increased pain left ankle this AM when compared to yesterday and he apparently had cam walker boot all the time. Objective Objective Vital Signs Date Time Temp Pulse Resp B/P (MAP) Pulse Ox O2 Delivery O2 Flow Rate FiO2 06/23/17 08:00 Room Air 06/23/17 07:02 97.6 66 19 140/63 (88) 96 97.6 06/22/17 21:52 2.0 Intake and Output 06/23/17 07:00 Intake Total 1180 ml Balance 1180 ml Intake Oral 1180 ml # Voids 3 # Bowel Movements 1 Physical Exam Physical Exam He is supine on dialysis bed and no skin breakdown noted around left ankle and he continues with some edema and pain on ROM of left ankle and tenderness to palpation over anterio-lateral aspect of left ankle.He is walking with cam walker to left ankle and roller walker with physical and occupational therapy. Assessment Assessment Problems Medical Problems: (1) Hypotension Status: Acute Plan Plan of Care To obtain follow up x-ray to rule out any occult fracture ankle and if no fracture,to let him go home with home health follow up when medically stable. Comment Review of Relevant I have reviewed the following items sarah (where applicable) has been applied. Labs Laboratory Tests Test 06/21/17 16:43 06/21/17 20:28 06/22/17 03:50 06/22/17 07:02 Glucose (Fingerstick) 278 mg/dL (70-99) 349 mg/dL (70-99) 125 mg/dL (70-99) White Blood Count 5.0 x10^3/uL (4.0-11.0) Red Blood Count 2.40 x10^6/uL (4.30-5.70) Hemoglobin 8.3 g/dL (13.0-17.5) Hematocrit 24.5 % (39.0-53.0) Mean Corpuscular Volume 102 fL (79-100) Mean Corpuscular Hemoglobin 35 pg (25-35) Mean Corpuscular Hemoglobin Concent 34 g/dL (31-37) Red Cell Distribution Width 17.1 % (11.5-14.5) Platelet Count 125 x10^3/uL (140-400) Neutrophils (%) (Auto) 60 % (31-73) Lymphocytes (%) (Auto) 21 % (24-48) Monocytes (%) (Auto) 14 % (0-9) Eosinophils (%) (Auto) 5 % (0-3) Basophils (%) (Auto) 1 % (0-3) Neutrophils # (Auto) 3.0 x10^3uL (1.8-7.7) Lymphocytes # (Auto) 1.0 x10^3/uL (1.0-4.8) Monocytes # (Auto) 0.7 x10^3/uL (0.0-1.1) Eosinophils # (Auto) 0.3 x10^3/uL (0.0-0.7) Basophils # (Auto) 0.0 x10^3/uL (0.0-0.2) Sodium Level 139 mmol/L (136-145) Potassium Level 3.7 mmol/L (3.5-5.1) Chloride Level 100 mmol/L (98-107) Carbon Dioxide Level 28 mmol/L (21-32) Anion Gap 11 (6-14) Blood Urea Nitrogen 42 mg/dL (8-26) Creatinine 5.2 mg/dL (0.7-1.3) Estimated GFR (Cockcroft-Gault) 10.7 Glucose Level 181 mg/dL (70-99) Calcium Level 7.7 mg/dL (8.5-10.1) Test 06/22/17 11:28 06/22/17 16:21 06/22/17 20:42 06/23/17 04:00 Glucose (Fingerstick) 251 mg/dL (70-99) 243 mg/dL (70-99) 268 mg/dL (70-99) White Blood Count 4.7 x10^3/uL (4.0-11.0) Red Blood Count 2.52 x10^6/uL (4.30-5.70) Hemoglobin 8.4 g/dL (13.0-17.5) Hematocrit 25.3 % (39.0-53.0) Mean Corpuscular Volume 100 fL (79-100) Mean Corpuscular Hemoglobin 34 pg (25-35) Mean Corpuscular Hemoglobin Concent 33 g/dL (31-37) Red Cell Distribution Width 16.9 % (11.5-14.5) Platelet Count 125 x10^3/uL (140-400) Neutrophils (%) (Auto) 61 % (31-73) Lymphocytes (%) (Auto) 19 % (24-48) Monocytes (%) (Auto) 13 % (0-9) Eosinophils (%) (Auto) 7 % (0-3) Basophils (%) (Auto) 1 % (0-3) Neutrophils # (Auto) 2.8 x10^3uL (1.8-7.7) Lymphocytes # (Auto) 0.9 x10^3/uL (1.0-4.8) Monocytes # (Auto) 0.6 x10^3/uL (0.0-1.1) Eosinophils # (Auto) 0.3 x10^3/uL (0.0-0.7) Basophils # (Auto) 0.0 x10^3/uL (0.0-0.2) Sodium Level 136 mmol/L (136-145) Potassium Level 3.9 mmol/L (3.5-5.1) Chloride Level 97 mmol/L (98-107) Carbon Dioxide Level 26 mmol/L (21-32) Anion Gap 13 (6-14) Blood Urea Nitrogen 67 mg/dL (8-26) Creatinine 6.7 mg/dL (0.7-1.3) Estimated GFR (Cockcroft-Gault) 8.0 Glucose Level 231 mg/dL (70-99) Calcium Level 7.4 mg/dL (8.5-10.1) Test 06/23/17 06:53 Glucose (Fingerstick) 215 mg/dL (70-99) Laboratory Tests Test 06/22/17 11:28 06/22/17 16:21 06/22/17 20:42 06/23/17 04:00 Glucose (Fingerstick) 251 mg/dL (70-99) 243 mg/dL (70-99) 268 mg/dL (70-99) White Blood Count 4.7 x10^3/uL (4.0-11.0) Red Blood Count 2.52 x10^6/uL (4.30-5.70) Hemoglobin 8.4 g/dL (13.0-17.5) Hematocrit 25.3 % (39.0-53.0) Mean Corpuscular Volume 100 fL (79-100) Mean Corpuscular Hemoglobin 34 pg (25-35) Mean Corpuscular Hemoglobin Concent 33 g/dL (31-37) Red Cell Distribution Width 16.9 % (11.5-14.5) Platelet Count 125 x10^3/uL (140-400) Neutrophils (%) (Auto) 61 % (31-73) Lymphocytes (%) (Auto) 19 % (24-48) Monocytes (%) (Auto) 13 % (0-9) Eosinophils (%) (Auto) 7 % (0-3) Basophils (%) (Auto) 1 % (0-3) Neutrophils # (Auto) 2.8 x10^3uL (1.8-7.7) Lymphocytes # (Auto) 0.9 x10^3/uL (1.0-4.8) Monocytes # (Auto) 0.6 x10^3/uL (0.0-1.1) Eosinophils # (Auto) 0.3 x10^3/uL (0.0-0.7) Basophils # (Auto) 0.0 x10^3/uL (0.0-0.2) Sodium Level 136 mmol/L (136-145) Potassium Level 3.9 mmol/L (3.5-5.1) Chloride Level 97 mmol/L (98-107) Carbon Dioxide Level 26 mmol/L (21-32) Anion Gap 13 (6-14) Blood Urea Nitrogen 67 mg/dL (8-26) Creatinine 6.7 mg/dL (0.7-1.3) Estimated GFR (Cockcroft-Gault) 8.0 Glucose Level 231 mg/dL (70-99) Calcium Level 7.4 mg/dL (8.5-10.1) Test 06/23/17 06:53 Glucose (Fingerstick) 215 mg/dL (70-99) Medications Current Medications Sodium Chloride 500 ml @ 500 mls/hr 1X ONCE IV Last administered on 17:47; Start 06/20/17 at 17:45; Stop 06/20/17 at 18:44; Status DC Iohexol (Omnipaque 300 Mg/ml) 60 ml 1X ONCE IV Last administered on 06/20/17 18:08; Start 06/20/17 at 18:00; Stop 06/20/17 at 18:01; Status DC Info (Do NOT chart on this entry -- for MONITORING) 1 each PRN DAILY PRN MC SEE COMMENTS; Start 06/20/17 at 18:00; Stop 06/22/17 at 17:59; Status DC Hydrocortisone Sodium Succinate (Solu-CORTEF) 100 mg 1X ONCE IV Last administered on 06/20/17 20:46; Start 06/20/17 at 20:45; Stop 06/20/17 at 20:46 ; Status DC Alprazolam (Xanax) 0.5 mg TID PO Last administered on 06/20/17 23:49; Start at 23:00; Stop 06/21/17 at 16:50; Status DC Aspirin (Ecotrin) 81 mg DAILY PO Last administered on 06/22/17 08:38; Start at 09:00 Folic Acid (Folic Acid) 1 mg DAILY PO Last administered on 06/22/17 08:38; Start 06/21/17 at 09:00 Gemfibrozil (Lopid) 600 mg BID PO Last administered on 06/22/17 20:52; Start 06/21/17 at 09:00 Insulin Aspart (NovoLOG) 5 units TIDAC SQ Last administered on 06/23/17 08:33 ; Start 06/21/17 at 07:30 Insulin Detemir (Levemir) 15 units QHS SQ ; Start 06/21/17 at 21:00; Stop at 21:00; Status DC Amylase/Lipase/ Protease (Zenpep 5,000) 4 cap TIDAC PO Last administered on 16:25; Start 06/21/17 at 07:30 Oxycodone/ Acetaminophen (Percocet 5/325) 1 tab QID PO Last administered on 20:52; Start 06/21/17 at 09:00 Pregabalin (Lyrica) 75 mg DAILY PO Last administered on 06/22/17 08:38; Start 06/21/17 at 09:00 Ropinirole HCl (Requip) 1 mg HS PO Last administered on 06/22/17 20:51; Start 06/20/17 at 23:00 Sennosides (Senna) 25.8 mg BID PO Last administered on 06/22/17 20:51; Start 06/21/17 at 09:00 Spironolactone (Aldactone) 25 mg DAILY PO Last administered on 06/22/17 08:37 ; Start 06/21/17 at 09:00 Tamsulosin HCl (Flomax) 0.8 mg DAILY PO Last administered on 06/22/17 08:38; Start 06/21/17 at 09:00 Fludrocortisone Acetate (Florinef) 0.1 mg DAILY PO Last administered on 08:38; Start 06/21/17 at 09:00; Stop 06/22/17 at 10:58; Status DC Insulin Aspart (NovoLOG) 0-7 UNITS TIDWMEALS SQ Last administered on 06/21/17 08:45; Start 06/21/17 at 08:00; Stop 06/21/17 at 16:48; Status DC Dextrose (Dextrose 50%-Water Syringe) 12.5 gm PRN Q15MIN PRN IV SEE COMMENTS; Start 06/20/17 at 23:30 Sodium Chloride 500 ml @ 500 mls/hr 1X ONCE IV Last administered on 02:29; Start 06/21/17 at 02:30; Stop 06/21/17 at 03:29; Status DC Sodium Chloride 1,000 ml @ 100 mls/hr Q10H IV ; Start 06/21/17 at 09:00; Stop 06/21/17 at 14:40; Status DC Sodium Chloride 1,000 ml @ 1,000 mls/hr Q1H PRN IV hypotension; Start 06/21/17 at 09:10; Stop 06/21/17 at 15:09; Status DC Albumin Human 200 ml @ 200 mls/hr 1X PRN PRN IV Hypotension; Start 06/21/17 at 09:15; Stop 06/21/17 at 15:14; Status DC Acetaminophen (Tylenol) 500 mg 1X PRN PRN PO MILD PAIN / TEMP; Start 06/21/17 at 09:15; Stop 06/21/17 at 21:00; Status DC Diphenhydramine HCl (Benadryl) 25 mg 1X PRN PRN IV ITCHING; Start 06/21/17 at 09:15; Stop 06/21/17 at 21:00; Status DC Sodium Chloride (Normal Saline Flush) 10 ml 1X PRN PRN IV AP 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; Start 06/21/17 at 09:15; Stop 06/21/17 at 21:00; Status DC Sodium Chloride (Normal Saline Flush) 10 ml 1X PRN PRN IV CLOAK ROOM ATTENDANT 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; Start 06/21/17 at 09:15; Stop 06/21/17 at 21:00; Status DC Sodium Chloride 1,000 ml @ 400 mls/hr Q2H30M PRN IV PATENCY; Start 06/21/17 at 09:10; Stop 06/21/17 at 21:09; Status DC Info (PHARMACY MONITORING -- do not chart) 1 each PRN DAILY PRN MC SEE COMMENTS ; Start 06/21/17 at 09:15 Info (PHARMACY MONITORING -- do not chart) 1 each PRN DAILY PRN MC SEE COMMENTS ; Start 06/21/17 at 09:15; Stop 06/21/17 at 09:29; Status DC Darbepoetin Joshua (Aranesp) 60 mcg Tu SQ Last administered on 06/21/17 21:15; Start 06/21/17 at 21:00 Insulin Detemir (Levemir) 20 units QHS SQ Last administered on 06/22/17 20:57 ; Start 06/21/17 at 21:00 Insulin Aspart (NovoLOG) 0-9 UNITS TIDWMEALS SQ Last administered on 06/23/17 08:33; Start 06/21/17 at 17:00 Alprazolam (Xanax) 0.5 mg PRN TID PRN PO anxiety; Start 06/21/17 at 17:00 Insulin Aspart (NovoLOG) 10 units 1X ONCE SQ Last administered on 06/21/17 21 :24; Start 06/21/17 at 21:00; Stop 06/21/17 at 21:01; Status DC Heparin Sodium (Porcine) (Heparin Sq) 5,000 unit Q8HRS SQ Last administered on 06/23/17 06:18; Start 06/22/17 at 06:00 Fludrocortisone Acetate (Florinef) 0.2 mg BID PO Last administered on 20:52; Start 06/22/17 at 21:00 Sodium Chloride 500 ml @ 500 mls/hr 1X ONCE IV Last administered on 7/26/ 17at 11:24; Start 06/22/17 at 11:30; Stop 06/22/17 at 12:29; Status DC Sodium Chloride 500 ml @ 500 mls/hr PRN Q4HRS PRN IV BOLUS IF SBP <90; Start 06/22/17 at 11:15 Midodrine (Proamatine) 2.5 mg [id number] PO Last administered on 06/23/17t 06:17; Start 06/22/17 at 18:00 Sodium Chloride 1,000 ml @ 1,000 mls/hr Q1H PRN IV hypotension; Start 06/23/17 at 10:00; Stop 06/23/17 at 18:00 Sodium Chloride (Normal Saline Flush) 10 ml 1X PRN PRN IV AP 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; Start 06/23/17 at 10:00; Stop 06/23/17 at 18:00 Sodium Chloride (Normal Saline Flush) 10 ml 1X PRN PRN IV CLOAK ROOM ATTENDANT 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; Start 06/23/17 at 10:00; Stop 06/23/17 at 18:00 Sodium Chloride 1,000 ml @ 400 mls/hr Q2H30M PRN IV PATENCY; Start 06/23/17 at 10:00; Stop 06/23/17 at 18:00 Info (PHARMACY MONITORING -- do not chart) 1 each PRN DAILY PRN MC SEE COMMENTS ; Start 06/23/17 at 10:00; Status UNV Info (PHARMACY MONITORING -- do not chart) 1 each PRN DAILY PRN MC SEE COMMENTS ; Start 06/23/17 at 10:00; Status UNV Active Scripts Active Levemir Flextouch (Insulin Detemir) 100 Unit/1 Ml Insuln.pen 15 Units SQ QHS 30 Days Novolog Flexpen (Insulin Aspart) 100 Unit/1 Ml Insuln.pen 5 Units SQ TIDAC 30 Days Lasix (Furosemide) 80 Mg Tablet 1 Tab PO DAILY Reported Hydralazine Hcl 10 Mg Tablet 1 Tab PO BID Percocet 5-325 Mg Tablet (Oxycodone/Acetaminophen) 1 Each Tablet 1 Tab PO QID Lyrica (Pregabalin) 75 Mg Capsule 1 Cap PO DAILY Lantus Solostar (Insulin Glargine,Hum.rec.anlog) 100 Unit/1 Ml Insuln.pen 24 Unit SQ QHS Humalog (Insulin Lispro) 100 Unit/1 Ml Cartridge 8 Unit SQ TIDAC Folic Acid 1 Mg Tablet 1 Tab PO DAILY Aspir 81 (Aspirin) 81 Mg Tablet. 1 Tab PO DAILY Senokot (Sennosides) 8.6 Mg Tablet 3 Tab PO BID Gemfibrozil 600 Mg Tablet 1 Tab PO BID Alprazolam 0.5 Mg Tablet 1 Tab PO TID Fish Oil 1,000 Mg Capsule ([place]-3 Fatty Acids/Fish Oil) 1 Each Capsule 4 Each PO DAILY Pancrelipase Dr 5,000 Unit Cap (Lipase/Protease/Amylase) 1 Each Capsule.dr 4 Each PO Prilosec Otc (Omeprazole Magnesium) 20 Mg Tablet.dr 20 Mg PO DAILY Spironolactone 25 Mg Tablet 25 Mg PO DAILY Ropinirole Hcl 1 Mg Tablet 1 Mg PO HS Tamsulosin Hcl 0.4 Mg Cap.er.24h 0.8 Mg PO DAILY Travatan Z (Travoprost) 5 Ml Drops 5 Ml OP Vitals/I & O Vital Sign - Last 24 Hours 06/22/17 06/22/17 06/22/17 06/22/17 10:41 11:39 14:35 14:38 Temp 97.4 98.1 97.4 98.1 Pulse 71 65 70 95 Resp 17 B/P (MAP) 98/41 (60) 113/46 (68) 113/36 (61) 147/51 (83) Pulse Ox 95 95 95 94 O2 Delivery Room Air Room Air Room Air Room Air 06/22/17 06/22/17 06/22/17 06/22/17 16:26 16:48 19:00 20:00 Temp 97.9 97.9 Pulse 95 69 Resp 20 22 B/P (MAP) 113/49 89/35 (53) Pulse Ox 94 98 O2 Delivery Room Air Room Air Room Air O2 Flow Rate 2.0 06/22/17 06/22/17 06/22/17 06/23/17 20:52 21:52 23:15 03:12 Temp 97.8 97.6 97.8 97.6 Pulse 70 70 Resp 18 21 23 B/P (MAP) 108/49 (68) 129/47 (74) Pulse Ox 98 96 96 97 O2 Delivery Room Air Room Air Room Air Room Air O2 Flow Rate 2.0 2.0 7/06/23/17 06/23/17 06:17 07:02 08:00 Temp 97.6 97.6 Pulse 70 66 Resp 19 B/P (MAP) 129/47 140/63 (88) Pulse Ox 96 O2 Delivery Room Air Room Air Intake and Output 06/22/17 06/22/17 06/23/17 15:00 23:00 07:00 Intake Total 580 ml 360 ml 240 ml Balance 580 ml 360 ml 240 ml CORBIN CHATMAN MD Jun 23, 2017 10:27
[2017-06-23] MEDS: oxyCODONE/APAP 5/325 1 TAB TABLET PO SCH ×4 (13:00→21:16)
--- NOTE | 2017-06-23 13:09 | PDOC ---
Renal-Progress Notes Subjective Notes Notes FEELING BETTER, WANTS TO GO HOME History of Present Illness Hx of present illness STABLE Vitals Vitals Vital Signs Date Time Temp Pulse Resp B/P (MAP) Pulse Ox O2 Delivery O2 Flow Rate FiO2 06/23/17 08:00 Room Air 06/23/17 07:02 97.6 66 19 140/63 (88) 96 97.6 06/22/17 21:52 2.0 Weight Weight [ ] I.O. Intake and Output Intake and Output 06/23/17 07:00 Intake Total 1180 ml Balance 1180 ml Intake Oral 1180 ml # Voids 3 # Bowel Movements 1 Labs Labs Laboratory Tests Test 06/22/17 16:21 06/22/17 20:42 06/23/17 04:00 06/23/17 06:53 Glucose (Fingerstick) 243 mg/dL (70-99) 268 mg/dL (70-99) 215 mg/dL (70-99) White Blood Count 4.7 x10^3/uL (4.0-11.0) Red Blood Count 2.52 x10^6/uL (4.30-5.70) Hemoglobin 8.4 g/dL (13.0-17.5) Hematocrit 25.3 % (39.0-53.0) Mean Corpuscular Volume 100 fL (79-100) Mean Corpuscular Hemoglobin 34 pg (25-35) Mean Corpuscular Hemoglobin Concent 33 g/dL (31-37) Red Cell Distribution Width 16.9 % (11.5-14.5) Platelet Count 125 x10^3/uL (140-400) Neutrophils (%) (Auto) 61 % (31-73) Lymphocytes (%) (Auto) 19 % (24-48) Monocytes (%) (Auto) 13 % (0-9) Eosinophils (%) (Auto) 7 % (0-3) Basophils (%) (Auto) 1 % (0-3) Neutrophils # (Auto) 2.8 x10^3uL (1.8-7.7) Lymphocytes # (Auto) 0.9 x10^3/uL (1.0-4.8) Monocytes # (Auto) 0.6 x10^3/uL (0.0-1.1) Eosinophils # (Auto) 0.3 x10^3/uL (0.0-0.7) Basophils # (Auto) 0.0 x10^3/uL (0.0-0.2) Sodium Level 136 mmol/L (136-145) Potassium Level 3.9 mmol/L (3.5-5.1) Chloride Level 97 mmol/L (98-107) Carbon Dioxide Level 26 mmol/L (21-32) Anion Gap 13 (6-14) Blood Urea Nitrogen 67 mg/dL (8-26) Creatinine 6.7 mg/dL (0.7-1.3) Estimated GFR (Cockcroft-Gault) 8.0 Glucose Level 231 mg/dL (70-99) Calcium Level 7.4 mg/dL (8.5-10.1) Review of Systems Constitutional: yes: weakness, alert, oriented Ears/Nose/Throat: Yes: no symptom reported Eyes: Yes: no symptom reported Pulmonary: Yes no symptom reported Cardiovascular: Yes no symptom reported Gastrointestional: Yes: no symptom reported Genitourinary: Yes: no symptom reported Psychiatric/Neurological: Yes: no symptom reported Hematologic/Lymphatic: Yes: no symptom reported Physical Exam General Appearance: no apparent distress Skin: warm Respiratory: bilateral CTA Heart: S1S2 Abdomen: soft, bowel sounds present Extremities: pulses present Neurology: alert Musculoskeletal: Osteoarthritis Assessment Assessment IMP HYPOTENSION-RESOLVED RECENT FALLS DUE TO THIS ANEMIA DM II ESRD PLAN HD TODAY UF TO DW OK TO D/C FROM RENAL [place] [place] ARACELI CANSECO MD Jun 23, 2017 13:09
--- NOTE | 2017-06-23 14:01 | PDOC ---
PROGRESS NOTES Chief Complaint Chief Complaint Hypotension Hyperkalemia ESRD ASSESSMENT AND PLAN: 1. Hypotension: Hx of HTN - ? O/D of BP meds - unlikely 2 days after stopping all. continue to hold. BP much improved during HD today hold florinef. D/c midodrine, contraindicated in tachyarrhythmia 2. ESRD: on HD T// 3. Hyperkalemia: severe at admit. corrected w/ HD 4. CAD/arrhythmia/sp pacer: echo with EF 55-60%, pAP 29. appreciate cards input 5. DM: better controlled with adjusted insulin levemir, and ISS 6. 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 on EPO, iron with HD 7. PCM: moderate with morbid obesity (BMI 38) 8. prophylaxis: heparin sq 9. Dispo: monitor BP off all meds. ideally, should be back on BB before D/C History of Present Illness History of Present Illness feels good today, eager to go home Vitals Vitals Vital Signs Date Time Temp Pulse Resp B/P (MAP) Pulse Ox O2 Delivery O2 Flow Rate FiO2 06/23/17 08:00 Room Air 06/23/17 07:02 97.6 66 19 140/63 (88) 96 97.6 06/22/17 21:52 2.0 Physical Exam General: Alert, Oriented X3, Cooperative, No acute distress Heart: Regular rate (SR), Normal S1, Normal S2, Other (3/6 systolic murmur to LLS border) Lungs: Clear Abdomen: Soft, No tenderness Extremities: No cyanosis, Other (1+ bilateral LE pitting edema) Skin: No breakdown, No significant lesion Labs LABS Laboratory Tests Test 06/22/17 16:21 06/22/17 20:42 06/23/17 04:00 06/23/17 06:53 Glucose (Fingerstick) 243 mg/dL (70-99) 268 mg/dL (70-99) 215 mg/dL (70-99) White Blood Count 4.7 x10^3/uL (4.0-11.0) Red Blood Count 2.52 x10^6/uL (4.30-5.70) Hemoglobin 8.4 g/dL (13.0-17.5) Hematocrit 25.3 % (39.0-53.0) Mean Corpuscular Volume 100 fL (79-100) Mean Corpuscular Hemoglobin 34 pg (25-35) Mean Corpuscular Hemoglobin Concent 33 g/dL (31-37) Red Cell Distribution Width 16.9 % (11.5-14.5) Platelet Count 125 x10^3/uL (140-400) Neutrophils (%) (Auto) 61 % (31-73) Lymphocytes (%) (Auto) 19 % (24-48) Monocytes (%) (Auto) 13 % (0-9) Eosinophils (%) (Auto) 7 % (0-3) Basophils (%) (Auto) 1 % (0-3) Neutrophils # (Auto) 2.8 x10^3uL (1.8-7.7) Lymphocytes # (Auto) 0.9 x10^3/uL (1.0-4.8) Monocytes # (Auto) 0.6 x10^3/uL (0.0-1.1) Eosinophils # (Auto) 0.3 x10^3/uL (0.0-0.7) Basophils # (Auto) 0.0 x10^3/uL (0.0-0.2) Sodium Level 136 mmol/L (136-145) Potassium Level 3.9 mmol/L (3.5-5.1) Chloride Level 97 mmol/L (98-107) Carbon Dioxide Level 26 mmol/L (21-32) Anion Gap 13 (6-14) Blood Urea Nitrogen 67 mg/dL (8-26) Creatinine 6.7 mg/dL (0.7-1.3) Estimated GFR (Cockcroft-Gault) 8.0 Glucose Level 231 mg/dL (70-99) Calcium Level 7.4 mg/dL (8.5-10.1) MELISSA ESPAÑA MD Jun 23, 2017 14:01
--- NOTE | 2017-06-23 14:33 | PDOC ---
CARDIO Progress Notes Date and Time Date of Service 06/23/2017 Time of Evaluation 1340 Subjective Subjective: No Chest Pain, No shortness of breath, No Palpitations, No Dizziness Vitals Vitals Vital Signs Date Time Temp Pulse Resp B/P (MAP) Pulse Ox O2 Delivery O2 Flow Rate FiO2 06/23/17 08:00 Room Air 06/23/17 07:02 97.6 66 19 140/63 (88) 96 97.6 06/22/17 21:52 2.0 Weight Weight [ ] Input and Output Intake and Output Intake and Output 06/23/17 07:00 Intake Total 1180 ml Balance 1180 ml Intake Oral 1180 ml # Voids 3 # Bowel Movements 1 Laboratory Labs Laboratory Tests Test 06/22/17 16:21 06/22/17 20:42 06/23/17 04:00 06/23/17 06:53 Glucose (Fingerstick) 243 mg/dL (70-99) 268 mg/dL (70-99) 215 mg/dL (70-99) White Blood Count 4.7 x10^3/uL (4.0-11.0) Red Blood Count 2.52 x10^6/uL (4.30-5.70) Hemoglobin 8.4 g/dL (13.0-17.5) Hematocrit 25.3 % (39.0-53.0) Mean Corpuscular Volume 100 fL (79-100) Mean Corpuscular Hemoglobin 34 pg (25-35) Mean Corpuscular Hemoglobin Concent 33 g/dL (31-37) Red Cell Distribution Width 16.9 % (11.5-14.5) Platelet Count 125 x10^3/uL (140-400) Neutrophils (%) (Auto) 61 % (31-73) Lymphocytes (%) (Auto) 19 % (24-48) Monocytes (%) (Auto) 13 % (0-9) Eosinophils (%) (Auto) 7 % (0-3) Basophils (%) (Auto) 1 % (0-3) Neutrophils # (Auto) 2.8 x10^3uL (1.8-7.7) Lymphocytes # (Auto) 0.9 x10^3/uL (1.0-4.8) Monocytes # (Auto) 0.6 x10^3/uL (0.0-1.1) Eosinophils # (Auto) 0.3 x10^3/uL (0.0-0.7) Basophils # (Auto) 0.0 x10^3/uL (0.0-0.2) Sodium Level 136 mmol/L (136-145) Potassium Level 3.9 mmol/L (3.5-5.1) Chloride Level 97 mmol/L (98-107) Carbon Dioxide Level 26 mmol/L (21-32) Anion Gap 13 (6-14) Blood Urea Nitrogen 67 mg/dL (8-26) Creatinine 6.7 mg/dL (0.7-1.3) Estimated GFR (Cockcroft-Gault) 8.0 Glucose Level 231 mg/dL (70-99) Calcium Level 7.4 mg/dL (8.5-10.1) Review of Systems Constitutional: yes: weakness, alert, oriented Ears/Nose/Throat: Yes: no symptom reported Eyes: Yes: no symptom reported Pulmonary: Yes no symptom reported Cardiovascular: Yes no symptom reported Gastrointestional: Yes: no symptom reported Genitourinary: Yes: no symptom reported Psychiatric/Neurological: Yes: no symptom reported Hematologic/Lymphatic: Yes: no symptom reported Physical Exam HEENT: Neck Supple W Full Motion Chest: Symmetric LUNGS: Other (faint basilar crackles) Heart: S1S2, RRR (SR) Abdomen: Soft N/T Extremities: No Calf Tenderness, Other (1+ bilateral LE pitting edema) Neurology: alert, oriented, follow commands Assessment Assessment 1. Presyncope/Hypotension: Multifactorial. No further episodes overnight 2. Hx of multiple falls: last episode 2 days ago related to above with left sprain ankle 3. Chronic pain syndrome: Has a spinal stimulator [facility] that has not been checked for 3 yrs. 4. ESRD: S/P 3 KG off loading with stable BP during this time. 5. CAD: CABG in the past. Follows with [facility]ology 6. SSS with PPM: SR with RBBB. Unable to determine what device pt has. 7. Hx of SAH: recent 8. Macrocytic anemia with coagulopathy 9. PAFIB 10. DM2 Recommendations 1. Interrogate device if possible otherwise pt to see his outpt medical clinic manager in 1-2 weeks. 2. No orthostasis. Resume low dose BB. ASA for stroke prevention 3. Continue with secondary prevention 4. Maintain adequate hydration ANYA BENITEZ PRINTING ASSISTANT Jun 23, 2017 14:33
[2017-06-23] MEDS: PREGABALIN 75 MG CAPSULE PO SCH (15:22)
[2017-06-23] MEDS: ASPIRIN ENTERIC COATED 81 MG TABLET.DR. PO SCH (15:23)
[2017-06-23] MEDS: TAMSULOSIN 0.4 MG CAP.ER.24H. PO SCH (15:23)
[2017-06-23] MEDS: SPIRONOLACTONE 25 MG TABLET PO SCH (15:24)
[2017-06-23] MEDS: FOLIC ACID 1 MG TABLET. PO SCH (15:24)
[2017-06-23] MEDS: METOPROLOL TART IMMED RELEASE 25 MG TABLET. PO SCH ×2 (15:30→21:18)
--- NOTE | 2017-06-23 15:33 | RAD ---
Left ankle, 3 views, 06/23/2017: History: Follow-up sprain There is an oblique lucency projected over the distal fibular shaft most compatible with a nondisplaced fracture. No other fracture or dislocation is identified. There is moderate diffuse soft tissue swelling about the ankle. Scattered arterial calcifications are present. IMPRESSION: Probable nondisplaced distal fibular fracture.
[2017-06-23] MEDS ORDERED: INSULIN ASPART 300 UNITS/3 ML INSULN.PEN SQ ONE (21:15)
[2017-06-23] MEDS: rOPINIRole 1 MG TABLET. PO SCH (21:16)
[2017-06-23] MEDS: INSULIN DETEMIR 300 UNITS/3 ML INSULN.PEN. SQ SCH (21:32)
[2017-06-24 03:25] VITALS: BP 118/55
[2017-06-24] MEDS: HEPARIN PF for SUB-Q USE 5,000 UNIT/0.5 ML VIAL. SQ SCH ×2 (06:12→14:00)
[2017-06-24 07:22] LABS: BASO % 1 % (0-3); EOS % 6 % (0-3); HEMATOCRIT 27.5 % (39.0-53.0); HEMOGLOBIN 9.2 g/dL (13.0-17.5); LYMPH # 0.9 x10^3/uL (1.0-4.8); LYMPH % 24 % (24-48); MEAN CORPUSCULAR HEMOGLOBIN 33 pg (25-35); MEAN CORPUSCULAR HGB CONC 33 g/dL (31-37); MEAN CORPUSCULAR VOLUME 100 fL (79-100); MONO % 11 % (0-9); NEUT % 57 % (31-73); PLATELET COUNT 135 x10^3/uL (140-400); RED BLOOD COUNT 2.76 x10^6/uL (4.30-5.70); RED CELL DISTRIBUTION WIDTH 16.1 % (11.5-14.5); WHITE BLOOD COUNT 3.5 x10^3/uL (4.0-11.0)
[2017-06-24 07:26] VITALS: BP 126/53
[2017-06-24] MEDS: INSULIN ASPART 300 UNITS/3 ML INSULN.PEN SQ SCH ×4 (07:30→12:34)
[2017-06-24] MEDS: LIPASE/PROTEAS/AMYLASE 5/17/27 CAPSULE.DR. PO SCH ×2 (08:36→12:29)
[2017-06-24] MEDS: TAMSULOSIN 0.4 MG CAP.ER.24H. PO SCH (08:38)
[2017-06-24] MEDS: SENNOSIDES 8.6 MG TABLET PO SCH (08:38)
[2017-06-24] MEDS: GEMFIBROZIL 600 MG TABLET. PO SCH (08:38)
[2017-06-24] MEDS: METOPROLOL TART IMMED RELEASE 25 MG TABLET. PO SCH (08:38)
[2017-06-24] MEDS: oxyCODONE/APAP 5/325 1 TAB TABLET PO SCH ×2 (08:39→12:28)
[2017-06-24] MEDS: PREGABALIN 75 MG CAPSULE PO SCH (08:39)
[2017-06-24] MEDS: ASPIRIN ENTERIC COATED 81 MG TABLET.DR. PO SCH (08:39)
[2017-06-24] MEDS: SPIRONOLACTONE 25 MG TABLET PO SCH (08:40)
[2017-06-24] MEDS: FOLIC ACID 1 MG TABLET. PO SCH (08:40)
--- NOTE | 2017-06-24 09:27 | PDOC ---
PROGRESS NOTES Subjective Subjective No new complaints. Objective Objective Vital Signs Date Time Temp Pulse Resp B/P (MAP) Pulse Ox O2 Delivery O2 Flow Rate FiO2 06/24/17 08:39 19 100 Nasal Cannula 2.0 06/24/17 08:38 75 126/53 06/24/17 07:26 97.9 97.9 Intake and Output 06/24/17 07:00 Intake Total 1440 ml Balance 1440 ml Intake Oral 1440 ml # Voids 3 # Bowel Movements 2 Physical Exam Physical Exam He is supine in bed and seems comfortable with cam walker boot on to left ankle.Repeat X-rays of left ankle revealed fracture left lateral malleolus ,non displaced. Assessment Assessment Problems Medical Problems: (1) Hypotension Status: Acute Plan Plan of Care To have orthopedics to see him before discharge to home with home health. Comment Review of Relevant I have reviewed the following items sarah (where applicable) has been applied. Labs Laboratory Tests Test 06/22/17 11:28 06/22/17 16:21 06/22/17 20:42 06/23/17 04:00 Glucose (Fingerstick) 251 mg/dL (70-99) 243 mg/dL (70-99) 268 mg/dL (70-99) White Blood Count 4.7 x10^3/uL (4.0-11.0) Red Blood Count 2.52 x10^6/uL (4.30-5.70) Hemoglobin 8.4 g/dL (13.0-17.5) Hematocrit 25.3 % (39.0-53.0) Mean Corpuscular Volume 100 fL (79-100) Mean Corpuscular Hemoglobin 34 pg (25-35) Mean Corpuscular Hemoglobin Concent 33 g/dL (31-37) Red Cell Distribution Width 16.9 % (11.5-14.5) Platelet Count 125 x10^3/uL (140-400) Neutrophils (%) (Auto) 61 % (31-73) Lymphocytes (%) (Auto) 19 % (24-48) Monocytes (%) (Auto) 13 % (0-9) Eosinophils (%) (Auto) 7 % (0-3) Basophils (%) (Auto) 1 % (0-3) Neutrophils # (Auto) 2.8 x10^3uL (1.8-7.7) Lymphocytes # (Auto) 0.9 x10^3/uL (1.0-4.8) Monocytes # (Auto) 0.6 x10^3/uL (0.0-1.1) Eosinophils # (Auto) 0.3 x10^3/uL (0.0-0.7) Basophils # (Auto) 0.0 x10^3/uL (0.0-0.2) Sodium Level 136 mmol/L (136-145) Potassium Level 3.9 mmol/L (3.5-5.1) Chloride Level 97 mmol/L (98-107) Carbon Dioxide Level 26 mmol/L (21-32) Anion Gap 13 (6-14) Blood Urea Nitrogen 67 mg/dL (8-26) Creatinine 6.7 mg/dL (0.7-1.3) Estimated GFR (Cockcroft-Gault) 8.0 Glucose Level 231 mg/dL (70-99) Calcium Level 7.4 mg/dL (8.5-10.1) Test 06/23/17 06:53 06/23/17 16:21 06/23/17 20:45 06/24/17 07:13 Glucose (Fingerstick) 215 mg/dL (70-99) 287 mg/dL (70-99) 390 mg/dL (70-99) White Blood Count 3.5 x10^3/uL (4.0-11.0) Red Blood Count 2.76 x10^6/uL (4.30-5.70) Hemoglobin 9.2 g/dL (13.0-17.5) Hematocrit 27.5 % (39.0-53.0) Mean Corpuscular Volume 100 fL (79-100) Mean Corpuscular Hemoglobin 33 pg (25-35) Mean Corpuscular Hemoglobin Concent 33 g/dL (31-37) Red Cell Distribution Width 16.1 % (11.5-14.5) Platelet Count 135 x10^3/uL (140-400) Neutrophils (%) (Auto) 57 % (31-73) Lymphocytes (%) (Auto) 24 % (24-48) Monocytes (%) (Auto) 11 % (0-9) Eosinophils (%) (Auto) 6 % (0-3) Basophils (%) (Auto) 1 % (0-3) Neutrophils # (Auto) 2.0 x10^3uL (1.8-7.7) Lymphocytes # (Auto) 0.9 x10^3/uL (1.0-4.8) Monocytes # (Auto) 0.4 x10^3/uL (0.0-1.1) Eosinophils # (Auto) 0.2 x10^3/uL (0.0-0.7) Basophils # (Auto) 0.0 x10^3/uL (0.0-0.2) Test 06/24/17 07:26 Glucose (Fingerstick) 107 mg/dL (70-99) Laboratory Tests Test 06/23/17 16:21 06/23/17 20:45 06/24/17 07:13 06/24/17 07:26 Glucose (Fingerstick) 287 mg/dL (70-99) 390 mg/dL (70-99) 107 mg/dL (70-99) White Blood Count 3.5 x10^3/uL (4.0-11.0) Red Blood Count 2.76 x10^6/uL (4.30-5.70) Hemoglobin 9.2 g/dL (13.0-17.5) Hematocrit 27.5 % (39.0-53.0) Mean Corpuscular Volume 100 fL (79-100) Mean Corpuscular Hemoglobin 33 pg (25-35) Mean Corpuscular Hemoglobin Concent 33 g/dL (31-37) Red Cell Distribution Width 16.1 % (11.5-14.5) Platelet Count 135 x10^3/uL (140-400) Neutrophils (%) (Auto) 57 % (31-73) Lymphocytes (%) (Auto) 24 % (24-48) Monocytes (%) (Auto) 11 % (0-9) Eosinophils (%) (Auto) 6 % (0-3) Basophils (%) (Auto) 1 % (0-3) Neutrophils # (Auto) 2.0 x10^3uL (1.8-7.7) Lymphocytes # (Auto) 0.9 x10^3/uL (1.0-4.8) Monocytes # (Auto) 0.4 x10^3/uL (0.0-1.1) Eosinophils # (Auto) 0.2 x10^3/uL (0.0-0.7) Basophils # (Auto) 0.0 x10^3/uL (0.0-0.2) Medications Current Medications Sodium Chloride 500 ml @ 500 mls/hr 1X ONCE IV Last administered on 17:47; Start 06/20/17 at 17:45; Stop 06/20/17 at 18:44; Status DC Iohexol (Omnipaque 300 Mg/ml) 60 ml 1X ONCE IV Last administered on 06/20/17 18:08; Start 06/20/17 at 18:00; Stop 06/20/17 at 18:01; Status DC Info (Do NOT chart on this entry -- for MONITORING) 1 each PRN DAILY PRN MC SEE COMMENTS; Start 06/20/17 at 18:00; Stop 06/22/17 at 17:59; Status DC Hydrocortisone Sodium Succinate (Solu-CORTEF) 100 mg 1X ONCE IV Last administered on 06/20/17 20:46; Start 06/20/17 at 20:45; Stop 06/20/17 at 20:46 ; Status DC Alprazolam (Xanax) 0.5 mg TID PO Last administered on 06/20/17 23:49; Start at 23:00; Stop 06/21/17 at 16:50; Status DC Aspirin (Ecotrin) 81 mg DAILY PO Last administered on 06/24/17 08:39; Start at 09:00 Folic Acid (Folic Acid) 1 mg DAILY PO Last administered on 06/24/17 08:40; Start 06/21/17 at 09:00 Gemfibrozil (Lopid) 600 mg BID PO Last administered on 06/24/17 08:38; Start 06/21/17 at 09:00 Insulin Aspart (NovoLOG) 5 units TIDAC SQ Last administered on 06/23/17 17:58 ; Start 06/21/17 at 07:30; Stop 06/23/17 at 21:11; Status DC Insulin Detemir (Levemir) 15 units QHS SQ ; Start 06/21/17 at 21:00; Stop at 21:00; Status DC Amylase/Lipase/ Protease (Zenpep 5,000) 4 cap TIDAC PO Last administered on 08:36; Start 06/21/17 at 07:30 Oxycodone/ Acetaminophen (Percocet 5/325) 1 tab QID PO Last administered on 08:39; Start 06/21/17 at 09:00 Pregabalin (Lyrica) 75 mg DAILY PO Last administered on 06/24/17 08:39; Start 06/21/17 at 09:00 Ropinirole HCl (Requip) 1 mg HS PO Last administered on 06/23/17 21:16; Start 06/20/17 at 23:00 Sennosides (Senna) 25.8 mg BID PO Last administered on 06/24/17 08:38; Start 06/21/17 at 09:00 Spironolactone (Aldactone) 25 mg DAILY PO Last administered on 06/24/17 08:40 ; Start 06/21/17 at 09:00 Tamsulosin HCl (Flomax) 0.8 mg DAILY PO Last administered on 06/24/17 08:38; Start 06/21/17 at 09:00 Fludrocortisone Acetate (Florinef) 0.1 mg DAILY PO Last administered on 08:38; Start 06/21/17 at 09:00; Stop 06/22/17 at 10:58; Status DC Insulin Aspart (NovoLOG) 0-7 UNITS TIDWMEALS SQ Last administered on 06/21/17 08:45; Start 06/21/17 at 08:00; Stop 06/21/17 at 16:48; Status DC Dextrose (Dextrose 50%-Water Syringe) 12.5 gm PRN Q15MIN PRN IV SEE COMMENTS; Start 06/20/17 at 23:30 Sodium Chloride 500 ml @ 500 mls/hr 1X ONCE IV Last administered on 02:29; Start 06/21/17 at 02:30; Stop 06/21/17 at 03:29; Status DC Sodium Chloride 1,000 ml @ 100 mls/hr Q10H IV ; Start 06/21/17 at 09:00; Stop 06/21/17 at 14:40; Status DC Sodium Chloride 1,000 ml @ 1,000 mls/hr Q1H PRN IV hypotension; Start 06/21/17 at 09:10; Stop 06/21/17 at 15:09; Status DC Albumin Human 200 ml @ 200 mls/hr 1X PRN PRN IV Hypotension; Start 06/21/17 at 09:15; Stop 06/21/17 at 15:14; Status DC Acetaminophen (Tylenol) 500 mg 1X PRN PRN PO MILD PAIN / TEMP; Start 06/21/17 at 09:15; Stop 06/21/17 at 21:00; Status DC Diphenhydramine HCl (Benadryl) 25 mg 1X PRN PRN IV ITCHING; Start 06/21/17 at 09:15; Stop 06/21/17 at 21:00; Status DC Sodium Chloride (Normal Saline Flush) 10 ml 1X PRN PRN IV AP 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; Start 06/21/17 at 09:15; Stop 06/21/17 at 21:00; Status DC Sodium Chloride (Normal Saline Flush) 10 ml 1X PRN PRN IV EXTRUDING DEPARTMENT SUPERVISOR 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; Start 06/21/17 at 09:15; Stop 06/21/17 at 21:00; Status DC Sodium Chloride 1,000 ml @ 400 mls/hr Q2H30M PRN IV PATENCY; Start 06/21/17 at 09:10; Stop 06/21/17 at 21:09; Status DC Info (PHARMACY MONITORING -- do not chart) 1 each PRN DAILY PRN MC SEE COMMENTS ; Start 06/21/17 at 09:15 Info (PHARMACY MONITORING -- do not chart) 1 each PRN DAILY PRN MC SEE COMMENTS ; Start 06/21/17 at 09:15; Stop 06/21/17 at 09:29; Status DC Darbepoetin Joshua (Aranesp) 60 mcg Tu SQ Last administered on 06/21/17 21:15; Start 06/21/17 at 21:00 Insulin Detemir (Levemir) 20 units QHS SQ Last administered on 06/23/17 21:32 ; Start 06/21/17 at 21:00 Insulin Aspart (NovoLOG) 0-9 UNITS TIDWMEALS SQ Last administered on 06/23/17 17:57; Start 06/21/17 at 17:00; Stop 06/23/17 at 21:11; Status DC Alprazolam (Xanax) 0.5 mg PRN TID PRN PO anxiety; Start 06/21/17 at 17:00 Insulin Aspart (NovoLOG) 10 units 1X ONCE SQ Last administered on 06/21/17 21 :24; Start 06/21/17 at 21:00; Stop 06/21/17 at 21:01; Status DC Heparin Sodium (Porcine) (Heparin Sq) 5,000 unit Q8HRS SQ Last administered on 06/24/17 06:12; Start 06/22/17 at 06:00 Fludrocortisone Acetate (Florinef) 0.2 mg BID PO Last administered on 20:52; Start 06/22/17 at 21:00; Stop 06/23/17 at 13:58; Status DC Sodium Chloride 500 ml @ 500 mls/hr 1X ONCE IV Last administered on 11:24; Start 06/22/17 at 11:30; Stop 06/22/17 at 12:29; Status DC Sodium Chloride 500 ml @ 500 mls/hr PRN Q4HRS PRN IV BOLUS IF SBP <90; Start 06/22/17 at 11:15 Midodrine (Proamatine) 2.5 mg [id number] PO Last administered on 06/23/17 06:17; Start 06/22/17 at 18:00; Stop 06/23/17 at 13:57; Status DC Sodium Chloride 1,000 ml @ 1,000 mls/hr Q1H PRN IV hypotension; Start 06/23/17 at 10:00; Stop 06/23/17 at 18:00; Status DC Sodium Chloride (Normal Saline Flush) 10 ml 1X PRN PRN IV AP 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; Start 06/23/17 at 10:00; Stop 06/23/17 at 18:00; Status DC Sodium Chloride (Normal Saline Flush) 10 ml 1X PRN PRN IV EXTRUDING DEPARTMENT SUPERVISOR 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; Start 06/23/17 at 10:00; Stop 06/23/17 at 18:00; Status DC Sodium Chloride 1,000 ml @ 400 mls/hr Q2H30M PRN IV PATENCY; Start 06/23/17 at 10:00; Stop 06/23/17 at 18:00; Status DC Info (PHARMACY MONITORING -- do not chart) 1 each PRN DAILY PRN MC SEE COMMENTS ; Start 06/23/17 at 10:00; Status UNV Info (PHARMACY MONITORING -- do not chart) 1 each PRN DAILY PRN MC SEE COMMENTS ; Start 06/23/17 at 10:00; Status UNV Metoprolol Tartrate (Lopressor) 12.5 mg BID PO Last administered on 06/24/17 08:38; Start 06/23/17 at 15:00 Insulin Aspart (NovoLOG) 7 units TIDAC SQ Last administered on 06/24/17 08:47 ; Start 06/24/17 at 07:30 Insulin Aspart (NovoLOG) 0-9 UNITS QIDACHS SQ ; Start 06/24/17 at 07:30 Insulin Aspart (NovoLOG) 11 units 1X ONCE SQ Last administered on 06/23/17 21 :32; Start 06/23/17 at 21:15; Stop 06/23/17 at 21:16; Status DC Active Scripts Active Levemir Flextouch (Insulin Detemir) 100 Unit/1 Ml Insuln.pen 15 Units SQ QHS 30 Days Novolog Flexpen (Insulin Aspart) 100 Unit/1 Ml Insuln.pen 5 Units SQ TIDAC 30 Days Lasix (Furosemide) 80 Mg Tablet 1 Tab PO DAILY Reported Hydralazine Hcl 10 Mg Tablet 1 Tab PO BID Percocet 5-325 Mg Tablet (Oxycodone/Acetaminophen) 1 Each Tablet 1 Tab PO QID Lyrica (Pregabalin) 75 Mg Capsule 1 Cap PO DAILY Lantus Solostar (Insulin Glargine,Hum.rec.anlog) 100 Unit/1 Ml Insuln.pen 24 Unit SQ QHS Humalog (Insulin Lispro) 100 Unit/1 Ml Cartridge 8 Unit SQ TIDAC Folic Acid 1 Mg Tablet 1 Tab PO DAILY Aspir 81 (Aspirin) 81 Mg Tablet. 1 Tab PO DAILY Senokot (Sennosides) 8.6 Mg Tablet 3 Tab PO BID Gemfibrozil 600 Mg Tablet 1 Tab PO BID Alprazolam 0.5 Mg Tablet 1 Tab PO TID Fish Oil 1,000 Mg Capsule (Pinckard-3 Fatty Acids/Fish Oil) 1 Each Capsule 4 Each PO DAILY Pancrelipase Dr 5,000 Unit Cap (Lipase/Protease/Amylase) 1 Each Capsule.dr 4 Each PO Prilosec Otc (Omeprazole Magnesium) 20 Mg Tablet.dr 20 Mg PO DAILY Spironolactone 25 Mg Tablet 25 Mg PO DAILY Ropinirole Hcl 1 Mg Tablet 1 Mg PO HS Tamsulosin Hcl 0.4 Mg Cap.er.24h 0.8 Mg PO DAILY Travatan Z (Travoprost) 5 Ml Drops 5 Ml OP Vitals/I & O Vital Sign - Last 24 Hours 06/23/17 06/23/17 06/23/17 06/23/17 15:18 15:23 15:30 15:43 Temp 97.4 97.4 Pulse 72 72 72 Resp 20 B/P (MAP) 116/62 (80) 116/62 122/53 (76) Pulse Ox 99 99 96 O2 Delivery Room Air Room Air Room Air O2 Flow Rate 2.0 06/23/17 06/23/17 06/23/17 06/23/17 15:46 15:49 17:00 18:32 Pulse 90 96 B/P (MAP) 123/54 (77) 146/40 (75) Pulse Ox 96 96 O2 Delivery Room Air Room Air Room Air Room Air O2 Flow Rate 2.0 2.0 06/23/17 06/23/17 06/23/17 06/23/17 19:56 20:00 21:18 23:46 Temp 98.5 97.8 98.5 97.8 Pulse 70 70 70 Resp 18 18 B/P (MAP) 105/31 (55) 105/31 122/53 (76) Pulse Ox 97 99 O2 Delivery Room Air Nasal Cannula O2 Flow Rate 2.0 06/24/17 06/24/17 06/24/17 06/24/17 03:25 07:26 08:00 08:38 Temp 97.7 97.9 97.7 97.9 Pulse 70 75 75 Resp 18 16 B/P (MAP) 118/55 (76) 126/53 (77) 126/53 Pulse Ox 100 98 O2 Delivery Nasal Cannula Nasal Cannula Nasal Cannula O2 Flow Rate 2.0 06/24/17 08:39 Resp 19 Pulse Ox 100 O2 Delivery Nasal Cannula O2 Flow Rate 2.0 Intake and Output 06/23/17 06/23/17 06/24/17 15:00 23:00 07:00 Intake Total 240 ml 600 ml 600 ml Balance 240 ml 600 ml 600 ml CORBIN CHATMAN MD Jun 24, 2017 09:27
--- NOTE | 2017-06-24 10:07 | PDOC ---
Renal-Progress Notes Subjective Notes Notes NO NEW COMPLAINTS History of Present Illness Hx of present illness STABLE Vitals Vitals Vital Signs Date Time Temp Pulse Resp B/P (MAP) Pulse Ox O2 Delivery O2 Flow Rate FiO2 06/24/17 08:39 19 100 Nasal Cannula 2.0 06/24/17 08:38 75 126/53 06/24/17 07:26 97.9 97.9 Weight Weight [ ] I.O. Intake and Output Intake and Output 06/24/17 07:00 Intake Total 1440 ml Balance 1440 ml Intake Oral 1440 ml # Voids 3 # Bowel Movements 2 Labs Labs Laboratory Tests Test 06/23/17 16:21 06/23/17 20:45 06/24/17 07:13 06/24/17 07:26 Glucose (Fingerstick) 287 mg/dL (70-99) 390 mg/dL (70-99) 107 mg/dL (70-99) White Blood Count 3.5 x10^3/uL (4.0-11.0) Red Blood Count 2.76 x10^6/uL (4.30-5.70) Hemoglobin 9.2 g/dL (13.0-17.5) Hematocrit 27.5 % (39.0-53.0) Mean Corpuscular Volume 100 fL (79-100) Mean Corpuscular Hemoglobin 33 pg (25-35) Mean Corpuscular Hemoglobin Concent 33 g/dL (31-37) Red Cell Distribution Width 16.1 % (11.5-14.5) Platelet Count 135 x10^3/uL (140-400) Neutrophils (%) (Auto) 57 % (31-73) Lymphocytes (%) (Auto) 24 % (24-48) Monocytes (%) (Auto) 11 % (0-9) Eosinophils (%) (Auto) 6 % (0-3) Basophils (%) (Auto) 1 % (0-3) Neutrophils # (Auto) 2.0 x10^3uL (1.8-7.7) Lymphocytes # (Auto) 0.9 x10^3/uL (1.0-4.8) Monocytes # (Auto) 0.4 x10^3/uL (0.0-1.1) Eosinophils # (Auto) 0.2 x10^3/uL (0.0-0.7) Basophils # (Auto) 0.0 x10^3/uL (0.0-0.2) Review of Systems Constitutional: yes: weakness, alert, oriented Ears/Nose/Throat: Yes: no symptom reported Eyes: Yes: no symptom reported Pulmonary: Yes no symptom reported Cardiovascular: Yes no symptom reported Gastrointestional: Yes: no symptom reported Genitourinary: Yes: no symptom reported Psychiatric/Neurological: Yes: no symptom reported Hematologic/Lymphatic: Yes: no symptom reported Physical Exam General Appearance: no apparent distress Skin: warm Respiratory: bilateral CTA Heart: S1S2 Abdomen: soft, bowel sounds present Extremities: pulses present Neurology: alert, oriented, follow commands Musculoskeletal: Osteoarthritis Assessment Assessment IMP HYPOTENSION-RESOLVED RECENT FALLS DUE TO THIS ANEMIA DM II ESRD LEFT LAT MALLEOLUS FX PLAN HD TOMORROW OK TO D/C FROM RENAL [facility] HD HERE TOMORROW IF NOT DISCHARGED D/W ARACELI BERNABE MD Jun 24, 2017 10:07
[2017-06-24 11:02] VITALS: BP 113/56
[2017-06-24] MEDS ORDERED: METO25TA4 PO (14:34)
--- NOTE | 2017-06-24 15:28 | PDOC ---
Provider Note Provider Note 06/24/2017 1530 Update [employer] device interrogation Normal functioning device. Notable for periods of PSVTs Battery life 1.5 yrs ANYA BENITEZ APRN Jun 24, 2017 15:28
--- NOTE | 2017-06-24 19:05 | DS ---
DATE OF DISCHARGE: 06/24/2017 CHIEF COMPLAINT: Hypotension. HOSPITAL COURSE: The patient is an 81-year-old gentleman with end-stage renal disease as well as multiple cardiac issues monitored by his portuguese tutor at , who presented after dialysis with hypotension. Initially, this was thought to be secondary to overdose on his blood pressure medications, which were held at admission. He actually required support with Florinef for a couple of days, but recovered to normal blood pressures. At day of discharge, he was deemed stable enough to restart on his metoprolol, hydralazine was held. For his renal issues, Nephrology service were involved and he continued on dialysis as per his schedule. He had developed pain in his left ankle, which was evaluated with x-rays and by Dr. Peterson from physiatry. A nondisplaced ankle fracture was diagnosed and he was given a stabilizing boot and orthopedic consult. No further intervention was indicated. PHYSICAL EXAMINATION: VITAL SIGNS: Show a blood pressure of 113/56, heart rate of 70, respiratory rate at 20. He is afebrile. GENERAL: This is an obese 81-year-old gentleman, alert and oriented, in no acute distress. LUNGS: Clear. HEART: Regular rate and rhythm. ABDOMEN: Has positive bowel sounds, soft, nontender. EXTREMITIES: Show no edema. Left foot in boot. DISCHARGE DATE: 06/24/2017. DISCHARGE DIAGNOSES: Hypotension and ankle fracture. DISCHARGE DISPOSITION: To home. DISCHARGE CONDITION: Improved. DISCHARGE MEDICATIONS: Please refer to MAR. DISCHARGE INSTRUCTIONS: The patient will follow up with hemodialysis as previously arranged. He will see his primary care physician in 2-3 weeks. MELISSA ESPAÑA MD DR: UR/nts JOB#: [id number] / [id number] STEFANIE Cleary MD
--- NOTE | 2017-06-25 03:54 | CONS ---
DATE OF CONSULTATION: 06/24/2017 CHIEF COMPLAINT: Left ankle fracture. REQUESTING PHYSICIAN: Dr. Maribel Welch. HISTORY OF PRESENT ILLNESS: The patient is an 81-year-old male with end-stage renal disease, on dialysis that was admitted to the hospital initially with hypotension and had a recent Emergency Department visit for an ankle sprain and had some help with home care for ongoing weakness and has had some left ankle pain on admission. X-rays revealed a nondisplaced distal fibula fracture for which he has been fitted with a Cam walker boot and is tolerating that nicely at present. PAST MEDICAL HISTORY: Significant for again end-stage renal disease, on dialysis, atrial fibrillation, congestive heart failure, coronary artery disease, hypertension, history of [place], hyperlipidemia, pneumonia, reflux, ulcer disease, benign prostatic hypertrophy, urinary incontinence, diabetes and hyperparathyroidism. PAST SURGICAL HISTORY: Significant for coronary bypass, pacemaker, cataract removal, tonsillectomy. FAMILY HISTORY: Heart disease. SOCIAL HISTORY: He is accompanied by his today, lives at home. Denies tobacco, alcohol or drug use. MEDICATIONS: List is reviewed. ALLERGIES: INCLUDE STATIN TYPE DRUGS, GABAPENTIN, BACTRIM AND MORPHINE. REVIEW OF SYSTEMS: Mainly for the left ankle pain with activity. His blood pressure issues have resolved and he is actually near medically stable for discharge today, which is planned. PHYSICAL EXAMINATION: GENERAL: This is a pleasant, cooperative 81-year-old male, alert and oriented, in no acute distress, ambulating well with a Cam walker boot. EXTREMITIES: On examination of the left ankle, he is tender over the distal fibula on palpation, has good motion and stability of the left ankle. Normal examination of the left foot. Normal examination of the contralateral foot and ankle with normal alignment and stability of bilateral hips and knees. IMAGING: X-rays reveal a nondisplaced fracture of the distal fibula. Ankle joint mortise is completely intact. The fracture is visible as a crack only and is aligned anatomically. IMPRESSION: Left distal fibula fracture. TREATMENT PLAN: He can continue weightbearing as tolerated in his Cam walker boot. Follow up in about 10-14 days in my office for repeat examination and x-rays. He will call sooner if there are any other problems with the ankle in the interim, but I fully expect continued nonoperative treatment. All his questions were answered. JEREMY HOWELL MD DR: SEGUNDO/elpidio JOB#: [id number] / [id number]
== END 2017-06-24 16:00 | disposition home or self-care (01) | DRG 314 ==
LOC: ER 16:35 → 6 SOUTH 20:20
PROVIDERS: ADMIT Internal Medicine; ATTEND Internal Medicine
DX: I95.9 Hypotension, unspecified (principal); N18.6 End stage renal disease; E44.0 Moderate protein-calorie malnutrition; D68.9 Coagulation defect, unspecified; I42.8 Other cardiomyopathies; I13.2 Hypertensive heart and chronic kidney disease with heart failure and with stage 5 chronic kidney disease, or end stage renal disease; E87.5 Hyperkalemia; D53.9 Nutritional anemia, unspecified; D63.1 Anemia in chronic kidney disease; E11.22 Type 2 diabetes mellitus with diabetic chronic kidney disease; Z68.36 Body mass index [BMI] 36.0-36.9, adult; E11.42 Type 2 diabetes mellitus with diabetic polyneuropathy; E11.65 Type 2 diabetes mellitus with hyperglycemia; E66.9 Obesity, unspecified; E78.5 Hyperlipidemia, unspecified; G47.33 Obstructive sleep apnea (adult) (pediatric); G89.4 Chronic pain syndrome; I25.10 Atherosclerotic heart disease of native coronary artery without angina pectoris; I44.0 Atrioventricular block, first degree; I45.10 Unspecified right bundle-branch block; I48.91 Unspecified atrial fibrillation; I49.5 Sick sinus syndrome; I50.9 Heart failure, unspecified; K21.9 Gastro-esophageal reflux disease without esophagitis; N40.1 Benign prostatic hyperplasia with lower urinary tract symptoms; S82.832A Other fracture of upper and lower end of left fibula, initial encounter for closed fracture; W19.XXXA Unspecified fall, initial encounter; Y93.89 Activity, other specified; I25.2 Old myocardial infarction; Y92.89 Other specified places as the place of occurrence of the external cause; Y99.8 Other external cause status; Z85.828 Personal history of other malignant neoplasm of skin; Z87.01 Personal history of pneumonia (recurrent); Z87.11 Personal history of peptic ulcer disease; Z95.0 Presence of cardiac pacemaker; Z79.891 Long term (current) use of opiate analgesic; Z95.1 Presence of aortocoronary bypass graft; Z99.2 Dependence on renal dialysis; Z88.5 Allergy status to narcotic agent; Z98.49 Cataract extraction status, unspecified eye
CPT/HCPCS: 36415; 73610; 74177; 80048; 80053; 80076; 82553; 82607; 82746; 82962; 83036; 83735; 84484; 85007; 85027; 85379; 85610; 86706; 87340; 87341; 93005; 93306; 96361; 96374; J0881; J1720; J1815; J7040; Q9967; 99285-25

== ENCOUNTER 2017-06-28 09:51 | Outpatient (CLI) | payer MEDICARE, BC ==
[~2017-06-28] VITALS: Ht 162.6 cm; Wt 97.5 kg
[2017-06-28] VITALS (10 sets, daily range): BP systolic 104–137; BP diastolic 48–76
[2017-06-28] MEDS ORDERED: MIDAZOLAM HCL/PF 2 MG/2 ML VIAL. ONE (10:46)
[2017-06-28] MEDS ORDERED: fentaNYL PF VIAL 100 MCG/2 ML VIAL ONE (10:46)
[2017-06-28] MEDS ORDERED: LIDOCAINE 2%/EPI 1:100,000 20 ML VIAL. ONE (10:50)
[2017-06-28] MEDS ORDERED: HEPARIN for IV BOLUS 10,000 UNIT/10 ML VIAL. ONE (10:50)
[2017-06-28] MEDS ORDERED: fentaNYL PF VIAL 100 MCG/2 ML VIAL IV ONE (11:15)
[2017-06-28] MEDS ORDERED: MIDAZOLAM HCL/PF 2 MG/2 ML VIAL. IV ONE (11:15)
[2017-06-28] MEDS ORDERED: HEPARIN for IV BOLUS 10,000 UNIT/10 ML VIAL. IV ONE (11:15)
[2017-06-28] MEDS ORDERED: LIDOCAINE 1%/EPI 1:100,000 20 ML VIAL. INJ ONE (11:15)
[2017-06-28] MEDS ORDERED: LIDOCAINE 2%/EPI 1:100,000 20 ML VIAL. IJ ONE (11:30)
--- NOTE | 2017-06-28 14:14 | RAD ---
Fluoroscopically guided placement of right internal jugular tunnel dialysis catheter 06/28/2017 Indication: Nonfunctional catheter Comparison study: Imaging of prior catheter placement Discussion: The risks and benefits of the procedure including but not limited to bleeding, infection, and catheter malfunction discussed the patient. Informed consent was obtained. The patient was brought to fluoroscopy suite and placed in supine position. A timeout procedure was performed. The right chest and neck including the pre-existing dialysis catheter were prepped and draped using maximum sterile barrier technique. Fluoroscopic evaluation demonstrates slightly proximal positioning of the pre-existing dialysis catheter. 2 stiff Glidewires were advanced improved the pre-existing catheter into the inferior vena cava. The pre-existing catheter was removed over these wires and replaced with a 23 cm tip to cuff palindrome dialysis catheter with tip in the mid right atrium with the patient supine. New catheter was found to flush and aspirate normally. No immediate complications were identified. The catheter secured in place with 2-0 Prolene suture and a sterile dressing was applied. Fluoroscopy time 2.2 minutes Dose area product: 7 Rosenthal centimeters squared Exposures: 2 The procedure was performed performed under conscious sedation including continuous cardiopulmonary monitoring via a dedicated sedation nurse. Sedation time: 30 minutes Impression: Successful exchange of the right internal jugular tunneled dialysis catheter under fluoroscopic guidance.
== END 2017-06-28 14:02 | disposition home or self-care (01) ==
LOC: INTRAD 09:51
PROVIDERS: ATTEND Internal Medicine Nephrology
DX: T82.49XA Other complication of vascular dialysis catheter, initial encounter (principal); Y84.8 Other medical procedures as the cause of abnormal reaction of the patient, or of later complication, without mention of misadventure at the time of the procedure; I25.10 Atherosclerotic heart disease of native coronary artery without angina pectoris; E78.00 Pure hypercholesterolemia, unspecified; I48.91 Unspecified atrial fibrillation; K21.9 Gastro-esophageal reflux disease without esophagitis; I12.9 Hypertensive chronic kidney disease with stage 1 through stage 4 chronic kidney disease, or unspecified chronic kidney disease; E11.22 Type 2 diabetes mellitus with diabetic chronic kidney disease; N18.3 Chronic kidney disease, stage 3 (moderate); Z98.41 Cataract extraction status, right eye; Z98.42 Cataract extraction status, left eye; Z99.2 Dependence on renal dialysis; Z86.69 Personal history of other diseases of the nervous system and sense organs; Z87.01 Personal history of pneumonia (recurrent); Z88.6 Allergy status to analgesic agent; Z88.1 Allergy status to other antibiotic agents; Z88.3 Allergy status to other anti-infective agents
CPT/HCPCS: 36581; 77001; C1750; C1769; C1887; J0690; J1644; J2250; J3010; J3490; 99152; 99153

== ENCOUNTER 2018-01-06 22:26 | Inpatient (IN) | payer MEDICARE, BC ==
[2018-01-07] MEDS ORDERED: DEXTROSE 50% 25 GM / 50ML DISP.SYRIN. IV ×2 (00:15→12:00)
[2018-01-07 05:13] LABS: ADD MAN DIFF? NO
[2018-01-07 05:31] LABS: BASO % 1 % (0-3); EOS % 1 % (0-3); HEMATOCRIT 31.5 % (39.0-53.0); HEMOGLOBIN 10.2 g/dL (13.0-17.5); LYMPH # 0.8 x10^3/uL (1.0-4.8); LYMPH % 20 % (24-48); MEAN CORPUSCULAR HEMOGLOBIN 34 pg (25-35); MEAN CORPUSCULAR HGB CONC 33 g/dL (31-37); MEAN CORPUSCULAR VOLUME 105 fL (79-100); MONO # 0.4 x10^3/uL (0.0-1.1); MONO % 10 % (0-9); NEUT # 2.8 x10^3uL (1.8-7.7); NEUT % 69 % (31-73); PLATELET COUNT 116 x10^3/uL (140-400); RED BLOOD COUNT 2.99 x10^6/uL (4.30-5.70); RED CELL DISTRIBUTION WIDTH 16.1 % (11.5-14.5); WHITE BLOOD COUNT 4.1 x10^3/uL (4.0-11.0)
[2018-01-07 05:55] LABS: ALBUMIN/GLOBULIN RATIO 0.7 (1.0-1.7); ALK PHOS 150 U/L (46-116); ALT (SGPT) 28 U/L (16-63); ANION GAP 10 (6-14); AST (SGOT) 38 U/L (15-37); BLOOD UREA NITROGEN 45 mg/dL (8-26); BUN/CREATININE RATIO 11 (6-20); CALCIUM 8.9 mg/dL (8.5-10.1); CARBON DIOXIDE 29 mmol/L (21-32); CHLORIDE 99 mmol/L (98-107); CREATININE 4.2 mg/dL (0.7-1.3); GFR 13.7; GLUCOSE 175 mg/dL (70-99); PHOSPHORUS 3.8 mg/dL (2.6-4.7); POTASSIUM 4.2 mmol/L (3.5-5.1); SODIUM 138 mmol/L (136-145); TOTAL BILIRUBIN 0.6 mg/dL (0.2-1.0); TOTAL PROTEIN 7.2 g/dL (6.4-8.2)
[2018-01-07 07:35] LABS: POC GLUCOSE 172 mg/dL (70-99)
[2018-01-07] MEDS: SPIRONOLACTONE 25 MG TABLET PO (09:00)
[2018-01-07] MEDS: FUROSEMIDE 80 MG TABLET. PO (09:00)
[2018-01-07] MEDS: METOPROLOL TART IMMED RELEASE 25 MG TABLET. PO ×3 (09:00→22:01)
[2018-01-07] MEDS: LIPASE/PROTEAS/AMYLASE 5/17/27 CAPSULE.DR. PO ×3 (10:24→22:02)
[2018-01-07] MEDS: ASPIRIN ENTERIC COATED 81 MG TABLET.DR. PO (10:25)
[2018-01-07] MEDS: TAMSULOSIN 0.4 MG CAP.ER.24H. PO (10:26)
[2018-01-07] MEDS: FOLIC ACID 1 MG TABLET. PO (10:27)
[2018-01-07] MEDS: DIGOXIN 125 MCG TABLET. PO (10:30)
[2018-01-07] MEDS: GEMFIBROZIL 600 MG TABLET. PO ×2 (10:30→22:00)
[2018-01-07] MEDS: PANTOPRAZOLE 40 MG TABLET.DR. PO (10:31)
[2018-01-07] MEDS: SENNOSIDES 8.6 MG TABLET PO ×2 (10:31→22:02)
[2018-01-07] MEDS: ALPRAZolam 0.5 MG TABLET PO ×3 (10:32→22:02)
[2018-01-07] MEDS: INSULIN ASPART 300 UNITS/3 ML INSULN.PEN SQ ×5 (10:38→17:06)
[2018-01-07] MEDS: oxyCODONE/APAP 5/325 1 TAB TABLET PO ×3 (10:41→15:33)
[2018-01-07 11:34] LABS: POC GLUCOSE 354 mg/dL (70-99)
[2018-01-07] MEDS ORDERED: NITROGLYCERIN SUBLINGUAL 0.4 MG BOTTLE OF 25. SL ×3 (13:57→14:15)
[2018-01-07 16:29] LABS: POC GLUCOSE 330 mg/dL (70-99)
[2018-01-07] MEDS: WARFARIN 5 MG TABLET. PO (17:03)
[2018-01-07] MEDS ORDERED: IV NORMAL SALINE 1000ML BAG 1,000 ML IV ×2 (17:59)
[2018-01-07] MEDS ORDERED: DIALYSIS PATIENT. MC ×2 (18:00)
[2018-01-07] MEDS ORDERED: oxyCODONE/APAP 5/325 1 TAB TABLET PO (22:00)
[2018-01-07] MEDS: rOPINIRole 1 MG TABLET. PO (22:01)
[2018-01-07 22:04] LABS: POC GLUCOSE 151 mg/dL (70-99)
[2018-01-07] MEDS: INSULIN DETEMIR 300 UNITS/3 ML INSULN.PEN. SQ (22:09)
[2018-01-07] MEDS: DARBEPOETIN ALFA 60 MCG/0.3 ML DISP.SYRIN. SQ (22:12)
[2018-01-08 06:00] LABS: INR 1.8 (0.8-1.1); PROTHROMBIN TIME PATIENT 19.6 SEC (11.7-14.0)
[2018-01-08 08:29] LABS: POC GLUCOSE 219 mg/dL (70-99)
[2018-01-08] MEDS: GEMFIBROZIL 600 MG TABLET. PO (08:29)
[2018-01-08] MEDS: ALPRAZolam 0.5 MG TABLET PO ×2 (08:29→13:44)
[2018-01-08] MEDS: TAMSULOSIN 0.4 MG CAP.ER.24H. PO (08:30)
[2018-01-08] MEDS: METOPROLOL TART IMMED RELEASE 25 MG TABLET. PO (08:30)
[2018-01-08] MEDS: FOLIC ACID 1 MG TABLET. PO (08:30)
[2018-01-08] MEDS: SPIRONOLACTONE 25 MG TABLET PO (08:32)
[2018-01-08] MEDS: FUROSEMIDE 80 MG TABLET. PO (08:32)
[2018-01-08] MEDS: PANTOPRAZOLE 40 MG TABLET.DR. PO (08:32)
[2018-01-08] MEDS: SENNOSIDES 8.6 MG TABLET PO (08:32)
[2018-01-08] MEDS: LIPASE/PROTEAS/AMYLASE 5/17/27 CAPSULE.DR. PO ×2 (08:32→13:44)
[2018-01-08] MEDS: INSULIN ASPART 300 UNITS/3 ML INSULN.PEN SQ ×4 (08:38→12:25)
[2018-01-08] MEDS: ASPIRIN ENTERIC COATED 81 MG TABLET.DR. PO (08:42)
[2018-01-08 09:49] LABS: ADD MAN DIFF? NO
[2018-01-08 09:54] LABS: BASO % 1 % (0-3); EOS # 0.1 x10^3/uL (0.0-0.7); EOS % 1 % (0-3); HEMATOCRIT 31.4 % (39.0-53.0); HEMOGLOBIN 10.2 g/dL (13.0-17.5); LYMPH # 0.8 x10^3/uL (1.0-4.8); LYMPH % 19 % (24-48); MEAN CORPUSCULAR HEMOGLOBIN 34 pg (25-35); MEAN CORPUSCULAR HGB CONC 32 g/dL (31-37); MEAN CORPUSCULAR VOLUME 105 fL (79-100); MONO # 0.4 x10^3/uL (0.0-1.1); MONO % 10 % (0-9); NEUT # 3.2 x10^3uL (1.8-7.7); NEUT % 70 % (31-73); PLATELET COUNT 115 x10^3/uL (140-400); RED BLOOD COUNT 2.99 x10^6/uL (4.30-5.70); RED CELL DISTRIBUTION WIDTH 15.9 % (11.5-14.5); WHITE BLOOD COUNT 4.6 x10^3/uL (4.0-11.0)
[2018-01-08 10:06] LABS: ANION GAP 10 (6-14); BLOOD UREA NITROGEN 35 mg/dL (8-26); CALCIUM 8.2 mg/dL (8.5-10.1); CARBON DIOXIDE 29 mmol/L (21-32); CHLORIDE 96 mmol/L (98-107); CREATININE 3.3 mg/dL (0.7-1.3); GLUCOSE 195 mg/dL (70-99); POTASSIUM 4.1 mmol/L (3.5-5.1); SODIUM 135 mmol/L (136-145)
[2018-01-08 12:04] LABS: POC GLUCOSE 230 mg/dL (70-99)
[2018-01-08] MEDS ORDERED: WARFARIN 5 MG TABLET. PO (16:00)
[2018-01-08] MEDS ORDERED: WARFARIN 6 MG TABLET. PO (16:00)
[2018-01-08] MEDS ORDERED: METOPROLOL TART IMMED RELEASE 25 MG TABLET. PO (21:00)
[2018-01-09 11:21] LABS: POC GLUCOSE 140 mg/dL (70-99)
[2018-01-09 17:14] LABS: HEP B SURFACE ABDY Reactive (.); HEP B SURFACE AG Negative (Negative)
== END 2018-01-08 15:24 | disposition home or self-care (01) | DRG 291 ==
LOC: 5 NORTH 22:26
PROVIDERS: Internal Medicine
PROC: 5A1D70Z Performance of Urinary Filtration, Intermittent, Less than 6 Hours Per Day (ICD-10-PCS; principal; 2018-01-07)
DX: I13.2 Hypertensive heart and chronic kidney disease with heart failure and with stage 5 chronic kidney disease, or end stage renal disease (principal); I50.33 Acute on chronic diastolic (congestive) heart failure; E44.0 Moderate protein-calorie malnutrition; E11.22 Type 2 diabetes mellitus with diabetic chronic kidney disease; E66.01 Morbid (severe) obesity due to excess calories; I48.0 Paroxysmal atrial fibrillation; N18.6 End stage renal disease; D63.1 Anemia in chronic kidney disease; E21.3 Hyperparathyroidism, unspecified; E78.5 Hyperlipidemia, unspecified; I25.10 Atherosclerotic heart disease of native coronary artery without angina pectoris; M19.90 Unspecified osteoarthritis, unspecified site; I89.0 Lymphedema, not elsewhere classified; K21.9 Gastro-esophageal reflux disease without esophagitis; Z87.11 Personal history of peptic ulcer disease; Z95.0 Presence of cardiac pacemaker; Z68.39 Body mass index [BMI] 39.0-39.9, adult; Z95.1 Presence of aortocoronary bypass graft; Z98.61 Coronary angioplasty status; I25.2 Old myocardial infarction; Z98.49 Cataract extraction status, unspecified eye; Z88.1 Allergy status to other antibiotic agents; Z88.5 Allergy status to narcotic agent; Z88.8 Allergy status to other drugs, medicaments and biological substances; Z82.49 Family history of ischemic heart disease and other diseases of the circulatory system; Z88.2 Allergy status to sulfonamides; Z99.2 Dependence on renal dialysis
CPT/HCPCS: 36415; 71045; 80048; 80053; 82962; 83735; 84100; 85025; 85610; 86706; 87340; J0881; J1815

== ENCOUNTER 2018-03-02 19:33 | Inpatient (IN) | payer MEDICARE, BC ==
[2018-03-02 19:57] LABS: POC GLUCOSE 165 mg/dL (70-99)
[2018-03-02 20:30] LABS: ADD MAN DIFF? NO
[2018-03-02 20:36] LABS: BASO % 1 % (0-3); EOS % 0 % (0-3); HEMATOCRIT 35.2 % (39.0-53.0); HEMOGLOBIN 11.4 g/dL (13.0-17.5); LYMPH # 0.8 x10^3/uL (1.0-4.8); LYMPH % 15 % (24-48); MEAN CORPUSCULAR HEMOGLOBIN 34 pg (25-35); MEAN CORPUSCULAR HGB CONC 32 g/dL (31-37); MEAN CORPUSCULAR VOLUME 106 fL (79-100); MONO # 0.5 x10^3/uL (0.0-1.1); MONO % 9 % (0-9); NEUT # 4.1 x10^3uL (1.8-7.7); NEUT % 75 % (31-73); PLATELET COUNT 130 x10^3/uL (140-400); RED BLOOD COUNT 3.31 x10^6/uL (4.30-5.70); RED CELL DISTRIBUTION WIDTH 18.3 % (11.5-14.5); WHITE BLOOD COUNT 5.5 x10^3/uL (4.0-11.0)
[2018-03-02] MEDS: PIP/TAZO PER PHARMACY MC (20:39)
[2018-03-02] MEDS ORDERED: VANCOMYCIN PER PHARMACY MC (20:45)
[2018-03-02 20:49] LABS: AMMONIA 20 mcmol/L (11-34)
[2018-03-02 20:50] LABS: ANION GAP 13 (6-14); BLOOD UREA NITROGEN 20 mg/dL (8-26); BUN/CREATININE RATIO 5 (6-20); CALCIUM 8.8 mg/dL (8.5-10.1); CARBON DIOXIDE 26 mmol/L (21-32); CHLORIDE 99 mmol/L (98-107); CREATININE 3.8 mg/dL (0.7-1.3); GFR 15.3; GLUCOSE 183 mg/dL (70-99); INR 1.8 (0.8-1.1); PARTIAL THROMBOPLASTIN TIME 43 SEC (24-38); POTASSIUM 4.3 mmol/L (3.5-5.1); PROTHROMBIN TIME PATIENT 20.1 SEC (11.7-14.0); SODIUM 138 mmol/L (136-145)
[2018-03-02 20:55] LABS: LACTIC ACID 2.4 mmol/L (0.4-2.0)
[2018-03-02 20:56] LABS: TROPONINI < 0.017 ng/mL (0.000-0.055)
[2018-03-02] MEDS: PIPERACILLIN/TAZOBACTAM 2.25 GM in IV NORMAL SALINE 50ML 50 ML IV (20:58)
[2018-03-02 21:00] LABS: NT-PRO BNP 5670 pg/mL (0-449)
[2018-03-02 21:02] LABS: ALBUMIN 2.6 g/dL (3.4-5.0); ALBUMIN/GLOBULIN RATIO 0.6 (1.0-1.7); ALK PHOS 339 U/L (46-116); ALT (SGPT) 51 U/L (16-63); AST (SGOT) 61 U/L (15-37); LIPASE 53 U/L (73-393); MAGNESIUM 1.8 mg/dL (1.8-2.4); TOTAL BILIRUBIN 4.2 mg/dL (0.2-1.0); TOTAL PROTEIN 7.2 g/dL (6.4-8.2)
[2018-03-02 21:03] LABS: THYROID STIM HORMONE (TSH) 4.123 uIU/mL (0.358-3.74)
[2018-03-02] MEDS ORDERED: ONDANSETRON PF 4 MG/2 ML VIAL. IV (21:15)
[2018-03-02] MEDS: IV NORMAL SALINE 250ML 250 ML IV (23:21)
[2018-03-02] MEDS: VANCOMYCIN 2 GM in IV 1/2 NORMAL SALINE 500 ML IV (23:21)
[2018-03-03 01:21] LABS: LACTIC ACID 2.3 mmol/L (0.4-2.0)
[2018-03-03 02:32] LABS: ADD MAN DIFF? NO
[2018-03-03 02:41] LABS: BASO % 1 % (0-3); EOS % 1 % (0-3); HEMATOCRIT 32.4 % (39.0-53.0); HEMOGLOBIN 10.5 g/dL (13.0-17.5); LYMPH # 0.9 x10^3/uL (1.0-4.8); LYMPH % 18 % (24-48); MEAN CORPUSCULAR HEMOGLOBIN 35 pg (25-35); MEAN CORPUSCULAR HGB CONC 32 g/dL (31-37); MEAN CORPUSCULAR VOLUME 107 fL (79-100); MONO # 0.7 x10^3/uL (0.0-1.1); MONO % 14 % (0-9); NEUT # 3.2 x10^3uL (1.8-7.7); NEUT % 67 % (31-73); PLATELET COUNT 113 x10^3/uL (140-400); RED BLOOD COUNT 3.02 x10^6/uL (4.30-5.70); RED CELL DISTRIBUTION WIDTH 18.9 % (11.5-14.5); WHITE BLOOD COUNT 4.8 x10^3/uL (4.0-11.0)
[2018-03-03 02:58] LABS: ANION GAP 12 (6-14); BLOOD UREA NITROGEN 25 mg/dL (8-26); CALCIUM 8.4 mg/dL (8.5-10.1); CARBON DIOXIDE 26 mmol/L (21-32); CHLORIDE 100 mmol/L (98-107); CREATININE 4.1 mg/dL (0.7-1.3); GLUCOSE 207 mg/dL (70-99); POTASSIUM 4.4 mmol/L (3.5-5.1); SODIUM 138 mmol/L (136-145)
[2018-03-03 07:56] LABS: POC GLUCOSE 129 mg/dL (70-99)
[2018-03-03] MEDS ORDERED: PIP/TAZO PER PHARMACY MC (10:00)
[2018-03-03] MEDS: PIPERACILLIN/TAZOBACTAM 2.25 GM in IV NORMAL SALINE 50ML 50 ML IV ×2 (11:39→21:23)
[2018-03-03 11:52] LABS: POC GLUCOSE 231 mg/dL (70-99)
[2018-03-03] MEDS: LIPASE/PROTEAS/AMYLASE 5/17/27 CAPSULE.DR. PO ×3 (13:03→21:23)
[2018-03-03] MEDS: GEMFIBROZIL 600 MG TABLET. PO ×2 (13:03→21:23)
[2018-03-03] MEDS: SPIRONOLACTONE 25 MG TABLET PO (13:04)
[2018-03-03] MEDS: ALPRAZolam 0.5 MG TABLET PO (13:04)
[2018-03-03] MEDS: SENNOSIDES 8.6 MG TABLET PO ×2 (13:04→21:24)
[2018-03-03] MEDS: FOLIC ACID 1 MG TABLET. PO (13:04)
[2018-03-03] MEDS: TAMSULOSIN 0.4 MG CAP.ER.24H. PO (13:04)
[2018-03-03] MEDS: oxyCODONE/APAP 5/325 1 TAB TABLET PO ×4 (13:05→21:23)
[2018-03-03] MEDS: ASPIRIN ENTERIC COATED 81 MG TABLET.DR. PO (13:05)
[2018-03-03] MEDS: PREGABALIN 75 MG CAPSULE PO (13:05)
[2018-03-03] MEDS: FUROSEMIDE 80 MG TABLET. PO (13:05)
[2018-03-03] MEDS: PANTOPRAZOLE 40 MG TABLET.DR. PO (13:05)
[2018-03-03] MEDS: INSULIN ASPART 300 UNITS/3 ML INSULN.PEN SQ ×3 (13:14→17:43)
[2018-03-03] MEDS ORDERED: ALPRAZolam 0.5 MG TABLET PO (14:00)
[2018-03-03 16:39] LABS: POC GLUCOSE 326 mg/dL (70-99)
[2018-03-03] MEDS: VANCOMYCIN PER PHARMACY MC (16:43)
[2018-03-03] MEDS ORDERED: DEXTROSE 50% 25 GM / 50ML DISP.SYRIN. IV (17:15)
[2018-03-03] MEDS: CLOPIDOGREL BISULFATE 75 MG TABLET PO (17:31)
[2018-03-03] MEDS: VANCOMYCIN 2 GM in IV DEXTROSE 5 %-0.45 % NACL 500 ML IV (17:31)
[2018-03-03 20:49] LABS: POC GLUCOSE 152 mg/dL (70-99)
[2018-03-03] MEDS: rOPINIRole 1 MG TABLET. PO (21:23)
[2018-03-03] MEDS: INSULIN DETEMIR 300 UNITS/3 ML INSULN.PEN. SQ (21:32)
[2018-03-04] MEDS: PIPERACILLIN/TAZOBACTAM 2.25 GM in IV NORMAL SALINE 50ML 50 ML IV ×3 (05:25→21:18)
[2018-03-04] MEDS: VANCOMYCIN RANDOM LEVEL. MC (06:00)
[2018-03-04] MEDS ORDERED: DIALYSIS PATIENT. MC ×2 (07:45)
[2018-03-04] MEDS: INSULIN ASPART 300 UNITS/3 ML INSULN.PEN SQ ×6 (08:00→17:43)
[2018-03-04] MEDS ORDERED: IV NORMAL SALINE 1000ML BAG 1,000 ML IV ×2 (08:00)
[2018-03-04 08:15] LABS: POC GLUCOSE 110 mg/dL (70-99)
[2018-03-04] MEDS: TAMSULOSIN 0.4 MG CAP.ER.24H. PO (08:35)
[2018-03-04] MEDS: oxyCODONE/APAP 5/325 1 TAB TABLET PO ×4 (08:37→21:18)
[2018-03-04] MEDS: SPIRONOLACTONE 25 MG TABLET PO (08:38)
[2018-03-04] MEDS: PANTOPRAZOLE 40 MG TABLET.DR. PO (08:38)
[2018-03-04] MEDS: FUROSEMIDE 80 MG TABLET. PO (08:38)
[2018-03-04] MEDS: FOLIC ACID 1 MG TABLET. PO (08:38)
[2018-03-04] MEDS: LIPASE/PROTEAS/AMYLASE 5/17/27 CAPSULE.DR. PO ×4 (08:38→20:10)
[2018-03-04] MEDS: GEMFIBROZIL 600 MG TABLET. PO ×2 (08:38→20:11)
[2018-03-04] MEDS: ASPIRIN ENTERIC COATED 81 MG TABLET.DR. PO (08:38)
[2018-03-04] MEDS: SENNOSIDES 8.6 MG TABLET PO ×2 (08:39→20:10)
[2018-03-04] MEDS: PREGABALIN 75 MG CAPSULE PO (08:39)
[2018-03-04] MEDS: VANCOMYCIN PER PHARMACY MC (11:01)
[2018-03-04] MEDS: ALBUMIN HUMAN 25% IV (11:23)
[2018-03-04] MEDS: LACTOBACILLUS RHAMNOSUS GG 1 CAPSULE. PO ×2 (14:42→20:11)
[2018-03-04] MEDS ORDERED: POLYETHYLENE GLYCOL 3350 17 GM PACKET. PO (16:30)
[2018-03-04] MEDS: CLOPIDOGREL BISULFATE 75 MG TABLET PO (17:36)
[2018-03-04 18:04] LABS: POC GLUCOSE 337 mg/dL (70-99)
[2018-03-04] MEDS: rOPINIRole 1 MG TABLET. PO (20:11)
[2018-03-04] MEDS: DARBEPOETIN ALFA 60 MCG/0.3 ML DISP.SYRIN. SQ (20:16)
[2018-03-04 20:55] LABS: POC GLUCOSE 347 mg/dL (70-99)
[2018-03-04] MEDS: INSULIN DETEMIR 300 UNITS/3 ML INSULN.PEN. SQ (21:28)
[2018-03-05] MEDS: PIPERACILLIN/TAZOBACTAM 2.25 GM in IV NORMAL SALINE 50ML 50 ML IV (05:35)
[2018-03-05 07:38] LABS: POC GLUCOSE 217 mg/dL (70-99)
[2018-03-05] MEDS: oxyCODONE/APAP 5/325 1 TAB TABLET PO ×2 (09:00→11:48)
[2018-03-05] MEDS: SPIRONOLACTONE 25 MG TABLET PO (09:00)
[2018-03-05] MEDS: LIPASE/PROTEAS/AMYLASE 5/17/27 CAPSULE.DR. PO ×2 (09:14→11:47)
[2018-03-05] MEDS: TAMSULOSIN 0.4 MG CAP.ER.24H. PO (09:15)
[2018-03-05] MEDS: FUROSEMIDE 80 MG TABLET. PO (09:15)
[2018-03-05] MEDS: PANTOPRAZOLE 40 MG TABLET.DR. PO (09:15)
[2018-03-05] MEDS: PREGABALIN 75 MG CAPSULE PO (09:15)
[2018-03-05] MEDS: LACTOBACILLUS RHAMNOSUS GG 1 CAPSULE. PO (09:15)
[2018-03-05] MEDS: GEMFIBROZIL 600 MG TABLET. PO (09:16)
[2018-03-05] MEDS: ASPIRIN ENTERIC COATED 81 MG TABLET.DR. PO (09:16)
[2018-03-05] MEDS: FOLIC ACID 1 MG TABLET. PO (09:16)
[2018-03-05] MEDS: SENNOSIDES 8.6 MG TABLET PO (09:16)
[2018-03-05] MEDS: INSULIN ASPART 300 UNITS/3 ML INSULN.PEN SQ ×5 (09:23→11:52)
[2018-03-05 11:05] LABS: POC GLUCOSE 409 mg/dL (70-99)
[2018-03-07] MEDS ORDERED: VANCOMYCIN RANDOM LEVEL. MC (06:00)
== END 2018-03-05 13:29 | disposition home health service (06) | DRG 871 ==
LOC: ER 19:33 → 6 SOUTH 21:16
PROVIDERS: Family Medicine
PROC: 5A1D70Z Performance of Urinary Filtration, Intermittent, Less than 6 Hours Per Day (ICD-10-PCS; principal; 2018-03-04)
DX: A41.9 Sepsis, unspecified organism (principal); N18.6 End stage renal disease; I13.2 Hypertensive heart and chronic kidney disease with heart failure and with stage 5 chronic kidney disease, or end stage renal disease; G93.41 Metabolic encephalopathy; J18.9 Pneumonia, unspecified organism; D61.818 Other pancytopenia; I48.91 Unspecified atrial fibrillation; E11.22 Type 2 diabetes mellitus with diabetic chronic kidney disease; I50.9 Heart failure, unspecified; I25.10 Atherosclerotic heart disease of native coronary artery without angina pectoris; M19.90 Unspecified osteoarthritis, unspecified site; N40.1 Benign prostatic hyperplasia with lower urinary tract symptoms; N39.498 Other specified urinary incontinence; E78.5 Hyperlipidemia, unspecified; K21.9 Gastro-esophageal reflux disease without esophagitis; Z95.1 Presence of aortocoronary bypass graft; Z87.11 Personal history of peptic ulcer disease; I25.2 Old myocardial infarction; Z98.1 Arthrodesis status; Z99.2 Dependence on renal dialysis; Z88.5 Allergy status to narcotic agent; Z88.2 Allergy status to sulfonamides; Z88.8 Allergy status to other drugs, medicaments and biological substances; Z82.49 Family history of ischemic heart disease and other diseases of the circulatory system
CPT/HCPCS: 36415; 70450; 71045; 80048; 80053; 80202; 82140; 82962; 83605; 83690; 83735; 83880; 84443; 84484; 85025; 85610; 85730; 87040; 93005; 96374; 97162-GP; 97166-GO; 99285; 99285-25; J0881; J1815; J2543; J3370; P9046

== ENCOUNTER 2018-08-11 13:56 | Inpatient (IN) | payer MEDICARE, BC ==
[~2018-08-11] VITALS: Ht 152.4 cm; Wt 93.9 kg
[~2018-08-11 13:56] MED LIST changes: -AMLO10TA2 PO; +AMLO10TA6 PO; +CALC667T PO; +CHOL4POW3 PO; +CLOP75TA PO; +DILT120C80 PO; +DIPH-121 PO; +DORZ10DR21 EACHEYE; +FURO40TA4 PO; -GEMF600T3 PO; +GEMF600T4 PO; +HALO2TAB PO; +HYDR25TA PO; +METO25TA2 PO; -METO50TA2 PO; +METO50TA6 PO; +MIDO5TAB PO; +MONT10TA9 PO; +SILV20CR14 TP; -SPIR25TA3 PO; +SPIR25TA5 PO; +WARF-31 PO; +WARF4TAB64 PO; -WARF4TAB7 PO; -WARF5TAB7 PO
--- NOTE | 2018-08-11 14:20 | PHYS DOC ---
Past Medical History Past Medical History: A-Fib, Anemia, Arthritis, CAD, CHF, Dementia, Diabetes- Type II, GERD, High Cholesterol, Hypertension, GA, Renal Disease, Renal Failure Additional Past Medical Histor: cellulitis L leg, HYPERPARATHYROIDISM Past Surgical History: Coronary Bypass Surgery, Pacemaker, Other Additional Past Surgical Histo: STENTS,CABG x3,Fistula L)arm,bilat.shoulder, pain stimulator in back Alcohol Use: None Drug Use: None Adult General HPI HPI Patient is a 82 year old male was sent here to ER for evaluation of altered mental status, increased weakness, low blood pressure, abnormal electrolytes. Patient's condition had been getting worse the last week. Patient has history of end-stage renal disease, he is on dialysis. He is scheduled for dialysis tomorrow. When asked by this provider how he was doing patient did denies any chest pain, he said he feels okay. He denies any abdominal pain, cough, no fever. he denies any headache. Review of Systems Review of Systems Constitutional: Denies fever or chills [] Eyes: Denies change in visual acuity, redness, or eye pain [] HENT: Denies nasal congestion or sore throat [] Respiratory: Denies cough or shortness of breath [] Cardiovascular: No additional information not addressed in HPI [] GI: Denies abdominal pain, nausea, vomiting, bloody stools or diarrhea [] : Denies dysuria or hematuria [] Musculoskeletal: Denies back pain or joint pain [] Integument: Denies rash or skin lesions [] Neurologic: Denies headache, focal weakness or sensory changes [] Endocrine: Denies polyuria or polydipsia [] All other systems were reviewed and found to be within normal limits, except as documented in this note. Current Medications Current Medications Current Medications Medications (Trade) Dose Ordered Sig/Tracy Start Time Stop Time Status Last Admin Dose Admin Albuterol Sulfate (Ventolin Neb Soln) 2.5 mg STK-MED ONCE 08/11/18 15:25 08/11/18 15:26 DC Calcium Chloride (Calcium Chloride) 1,000 mg 1X ONCE 08/11/18 15:30 08/11/18 15:31 DC 08/11/18 15:38 1,000 MG Insulin Human Regular (HumuLIN R VIAL) 10 unit 1X ONCE 08/11/18 15:30 08/11/18 15:31 DC 08/11/18 15:45 10 UNIT Sodium Bicarbonate (Sodium Bicarb Adult 8.4% Syr) 50 meq 1X ONCE 08/11/18 15:30 08/11/18 15:31 DC 08/11/18 15:40 50 MEQ Sodium Chloride 500 ml @ 500 mls/hr 1X ONCE 08/11/18 15:30 08/11/18 16:29 08/11/18 15:39 500 MLS/HR Allergies Allergies Allergies Coded Allergies Type Severity Reaction Last Updated Verified Xmglvpx-Xfl-Eyv Reductase Inhibitor Allergy Severe Brain swelling. 02/22/18 Yes gabapentin Allergy Severe Brain swelling 02/22/18 Yes sulfamethoxazole Allergy Intermediate 02/22/18 Yes trimethoprim Allergy Intermediate 02/22/18 Yes morphine Adverse Reaction Severe 02/22/18 Yes Physical Exam Physical Exam Constitutional: Well developed, well nourished, appear lethargic, somnolent.. [] HENT: Normocephalic, atraumatic, bilateral external ears normal, oropharynx moist, no oral exudates, nose normal. [] Eyes: Left pupil dilated to about 5 mm, right pupil pinpoint to about 1 mm, EOMI , conjunctiva normal, no discharge. [] Neck: Normal range of motion, no tenderness, supple, no stridor. [] Cardiovascular irregular heart rate no murmur. Grade 4+ pitting edema bilaterally in lower extremity Lungs & Thorax: RALES THROUGHOUT LUNG HDZ. Abdomen: Bowel sounds normal, soft, no tenderness, no masses, no pulsatile masses. Abdomen is mildly distended. Skin: Warm, dry, no erythema, [] Back: No tenderness, no CVA tenderness. [] Extremities: No tenderness, no cyanosis, no clubbing, ROM intact, no edema. [] Neurologic: patient is very somnolent but able to wake up to answer questions, moved all extremities, speech clear. Psychologic: Affect normal, judgement normal, mood normal. [] Current Patient Data Vital Signs Vital Signs Date Time Temp Pulse Resp B/P (MAP) Pulse Ox O2 Delivery O2 Flow Rate FiO2 08/11/18 14:30 78 18 96 08/11/18 13:56 97.9 106/57 (73) Nasal Cannula 3.0 97.9 Lab Values Laboratory Tests Test 08/11/18 14:10 White Blood Count 4.8 x10^3/uL (4.0-11.0) Red Blood Count 3.20 x10^6/uL (4.30-5.70) L Hemoglobin 12.1 g/dL (13.0-17.5) L Hematocrit 35.8 % (39.0-53.0) L Mean Corpuscular Volume 112 fL (79-100) H Mean Corpuscular Hemoglobin 38 pg (25-35) H Mean Corpuscular Hemoglobin Concent 34 g/dL (31-37) Red Cell Distribution Width 15.9 % (11.5-14.5) H Platelet Count 88 x10^3/uL (140-400) L Neutrophils (%) (Auto) 75 % (31-73) H Lymphocytes (%) (Auto) 11 % (24-48) L Monocytes (%) (Auto) 13 % (0-9) H Eosinophils (%) (Auto) 1 % (0-3) Basophils (%) (Auto) 1 % (0-3) Neutrophils # (Auto) 3.6 x10^3uL (1.8-7.7) Lymphocytes # (Auto) 0.5 x10^3/uL (1.0-4.8) L Monocytes # (Auto) 0.6 x10^3/uL (0.0-1.1) Eosinophils # (Auto) 0.0 x10^3/uL (0.0-0.7) Basophils # (Auto) 0.0 x10^3/uL (0.0-0.2) Platelet Estimate Decreased (ADEQUATE) Macrocytosis Slight Prothrombin Time 16.2 SEC (11.7-14.0) H Prothrombin Time INR 1.4 (0.8-1.1) H PTT 36 SEC (24-38) Sodium Level 131 mmol/L (136-145) L Potassium Level 5.7 mmol/L (3.5-5.1) H Chloride Level 95 mmol/L (98-107) L Carbon Dioxide Level 29 mmol/L (21-32) Anion Gap 7 (6-14) Blood Urea Nitrogen 44 mg/dL (8-26) H Creatinine 6.2 mg/dL (0.7-1.3) H Estimated GFR (Cockcroft-Gault) 8.7 BUN/Creatinine Ratio 7 (6-20) Glucose Level 373 mg/dL (70-99) H Lactic Acid Level 2.1 mmol/L (0.4-2.0) H Calcium Level 8.7 mg/dL (8.5-10.1) Magnesium Level 3.1 mg/dL (1.8-2.4) H Total Bilirubin 1.4 mg/dL (0.2-1.0) H Aspartate Amino Transferase (AST) 29 U/L (15-37) Alanine Aminotransferase (ALT) 21 U/L (16-63) Alkaline Phosphatase 255 U/L (46-116) H Ammonia 24 mcmol/L (11-34) Creatine Kinase 49 U/L (39-308) Creatine Kinase MB (Mass) 1.5 ng/mL (0.0-3.6) Creatine Kinase MB Relative Index % (0-4) Troponin I Quantitative < 0.017 ng/mL (0.000-0.055) QU-Ims-C-Type Natriuretic Peptide 5824 pg/mL (0-449) H Total Protein 7.2 g/dL (6.4-8.2) Albumin 2.8 g/dL (3.4-5.0) L Albumin/Globulin Ratio 0.6 (1.0-1.7) L Laboratory Tests 08/11/18 14:10 Laboratory Tests 08/11/18 14:10 EKG EKG EKG: HEART RATE 80 BPM, NO STEMI, NO P WAVE, JUNCTIONAL RHYTHM.[] Radiology/Procedures Radiology/Procedures [][facility] [address] [place], [place] [id number] IMAGING REPORT Signed PATIENT: GABO WHITMAN ACCOUNT: [id number] : 1935 LOCATION: ER AGE: 82 SEX: M EXAM STATUS: REG ER ORD. PHYSICIAN: STEFANIE MCDONALD DO REASON: ALTERED MENTAL STATUS PROCEDURE: CT HEAD WO CONTRAST EXAM: Head CT without contrast. HISTORY: Weakness. Altered mental status. TECHNIQUE: Computed tomographic images of the head were obtained without contrast. *One or more of the following individualized dose reduction techniques were utilized for this examination: 1. Automated exposure control. 2. Adjustment of the mA and/or kV according to patient size. 3. Use of iterative reconstruction technique. COMPARISON: 04/11/2018. FINDINGS: There is stable slight asymmetric increased right greater than left frontal extra-axial space due to cerebral volume loss. No convincing acute or subacute hemorrhage is seen. There is no mass effect or midline shift. There is no hydrocephalus. There are areas of hypodensity throughout the cerebral white matter, a nonspecific finding likely due to chronic small vessel disease. There is complete opacification of the sphenoid sinus. There is mild left and minimal right maxillary sinus mucosal thickening with small mucous retention cysts. Clear as a tiny amount of fluid within mastoid air cells. No suspicious calvarial lesion is seen. IMPRESSION: 1. Scattered areas of hypodensity within the cerebral white matter, a nonspecific finding likely due to chronic small vessel disease. 2. Cerebral atrophy. There is associated increased extra-axial space. No convincing extra-axial hemorrhage is seen. 3. Note is made that MRI is more sensitive for acute infarction. Electronically signed by: Verenice Wesley MD (08/11/2018 3:02 PM) [place] [id number] DICTATED and SIGNED BY: VERENICE WESLEY MD DATE: 08/11/18 1459 [facility] [address] [place] [address] IMAGING REPORT Signed PATIENT: GABO WHITMAN ACCOUNT: [id number] : 1935 LOCATION: ER AGE: 82 SEX: M EXAM STATUS: REG ER ORD. PHYSICIAN: STEFANIE MCDONALD DO REASON: SOA PROCEDURE: PORTABLE CHEST 1V EXAM: Chest, single view. HISTORY: Shortness of breath. COMPARISON: 06/19/2018 FINDINGS: A frontal view of the chest is obtained. There is mild pulmonary congestion. There is a suspected stable small left pleural effusion with lower lobe atelectasis or infiltrate. The heart is normal in size. There is evidence of prior CABG. There is a cardiac pacemaker with leads in expected position. There are spinal stimulator leads overlying the mid thoracic spine. There is a screw within the left coronoid process. IMPRESSION: 1. Stable mild pulmonary edema. 2. Stable suspected small left pleural effusion with lower lobe atelectases or infiltrate. Electronically signed by: Verenice Wesley MD (08/11/2018 2:45 PM) [facility] DICTATED and SIGNED BY: VERENICE WESLEY MD DATE: 08/11/18 1444 Course & Med Decision Making Course & Med Decision Making Pertinent Labs and Imaging studies reviewed. (See chart for details) Patient was found to have hyperkalemia with abnormal EKG. Patient was given insulin, sodium bicarbonate, calcium chloride, albuterol neb for the treatment of hyperkalemia. Patient will be admitted, nephrology will be consulted for hemodialysis. Dr. Farooq, tying machine operator, was called, will dialyze him tomorrow. Dragon Disclaimer Dragon Disclaimer This electronic medical record was generated, in whole or in part, using a voice recognition dictation system. Departure Departure Impression: Primary Impression: Acute hyperkalemia Additional Impression: ESRD (end stage renal disease) on dialysis Disposition: ADMITTED INPATIENT Admitting Physician: Adelaide Carvalho Condition: STABLE Referrals: STEFANIE VAIL MD (PCP) Problem Qualifiers STEFANIE MCDONALD DO Aug 11, 2018 14:20
[2018-08-11 14:32] LABS: BASO % 1 % (0-3); EOS % 1 % (0-3); HEMATOCRIT 35.8 % (39.0-53.0); HEMOGLOBIN 12.1 g/dL (13.0-17.5); LYMPH # 0.5 x10^3/uL (1.0-4.8); LYMPH % 11 % (24-48); MEAN CORPUSCULAR HEMOGLOBIN 38 pg (25-35); MEAN CORPUSCULAR HGB CONC 34 g/dL (31-37); MEAN CORPUSCULAR VOLUME 112 fL (79-100); MONO # 0.6 x10^3/uL (0.0-1.1); MONO % 13 % (0-9); NEUT # 3.6 x10^3uL (1.8-7.7); NEUT % 75 % (31-73); PLATELET COUNT 88 x10^3/uL (140-400); RED CELL DISTRIBUTION WIDTH 15.9 % (11.5-14.5); WHITE BLOOD COUNT 4.8 x10^3/uL (4.0-11.0)
[2018-08-11 14:42] LABS: PROTHROMBIN TIME PATIENT 16.2 SEC (11.7-14.0)
[2018-08-11 14:44] LABS: CALCIUM 8.7 mg/dL (8.5-10.1); CREATININE 6.2 mg/dL (0.7-1.3); GFR 8.7
[2018-08-11 14:47] LABS: POTASSIUM 5.7 mmol/L (3.5-5.1)
--- NOTE | 2018-08-11 14:48 | RAD ---
EXAM: Chest, single view. HISTORY: Shortness of breath. COMPARISON: 06/19/2018 FINDINGS: A frontal view of the chest is obtained. There is mild pulmonary congestion. There is a suspected stable small left pleural effusion with lower lobe atelectasis or infiltrate. The heart is normal in size. There is evidence of prior CABG. There is a cardiac pacemaker with leads in expected position. There are spinal stimulator leads overlying the mid thoracic spine. There is a screw within the left coronoid process. IMPRESSION: 1. Stable mild pulmonary edema. 2. Stable suspected small left pleural effusion with lower lobe atelectases or infiltrate. Electronically signed by: Verenice Moulton MD (08/11/2018 2:45 PM) [facility]
[2018-08-11 14:51] LABS: ALBUMIN 2.8 g/dL (3.4-5.0); ALBUMIN/GLOBULIN RATIO 0.6 (1.0-1.7); MAGNESIUM 3.1 mg/dL (1.8-2.4); TOTAL BILIRUBIN 1.4 mg/dL (0.2-1.0); TOTAL PROTEIN 7.2 g/dL (6.4-8.2)
--- NOTE | 2018-08-11 15:05 | RAD ---
EXAM: Head CT without contrast. HISTORY: Weakness. Altered mental status. TECHNIQUE: Computed tomographic images of the head were obtained without contrast. *One or more of the following individualized dose reduction techniques were utilized for this examination: 1. Automated exposure control. 2. Adjustment of the mA and/or kV according to patient size. 3. Use of iterative reconstruction technique. COMPARISON: 04/11/2018. FINDINGS: There is stable slight asymmetric increased right greater than left frontal extra-axial space due to cerebral volume loss. No convincing acute or subacute hemorrhage is seen. There is no mass effect or midline shift. There is no hydrocephalus. There are areas of hypodensity throughout the cerebral white matter, a nonspecific finding likely due to chronic small vessel disease. There is complete opacification of the sphenoid sinus. There is mild left and minimal right maxillary sinus mucosal thickening with small mucous retention cysts. Clear as a tiny amount of fluid within mastoid air cells. No suspicious calvarial lesion is seen. IMPRESSION: 1. Scattered areas of hypodensity within the cerebral white matter, a nonspecific finding likely due to chronic small vessel disease. 2. Cerebral atrophy. There is associated increased extra-axial space. No convincing extra-axial hemorrhage is seen. 3. Note is made that MRI is more sensitive for acute infarction. Electronically signed by: Verenice Moulton MD (08/11/2018 3:02 PM) [facility]
[2018-08-11 15:07] LABS: CREATINE KINASE 49 U/L (39-308)
[2018-08-11 15:16] LABS: PLT ESTIMATE DECREASED (ADEQUATE)
[2018-08-11] MEDS ORDERED: ALBUTEROL SULFATE 2.5 MG/3 ML NEBU. ONE (15:25)
[2018-08-11] MEDS ORDERED: SODIUM BICARB ADULT 8.4% 50 MEQ/50 ML DISP.SYRIN. IV ONE (15:30)
[2018-08-11] MEDS ORDERED: CALCIUM CHLORIDE 1,000 MG/10 ML DISP.SYRIN IV ONE (15:30)
[2018-08-11] MEDS ORDERED: INSULIN REGULAR 100 UNIT/ML 3ML VIAL. IV ONE (15:30)
[2018-08-11] MEDS ORDERED: IV NORMAL SALINE 500ML BAG 500 ML IV ONE (15:30)
[2018-08-11] MEDS ORDERED: ALBUTEROL SULFATE 2.5 MG/3 ML NEBU. NEB ONE (15:30)
--- NOTE | 2018-08-11 15:30 | EKG ---
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
[2018-08-11 15:34] LABS: BASE EXCESS ABG -2 mmol/L (-3-3); HCO3 ABG 24 mmol/L (21-28); PCO2 ABG 46 mmHg (35-46); PO2 ABG 89 mmHg (65-108); SAT O2 ABG 96 % (92-99)
[2018-08-11] MEDS ORDERED: DEXTROSE 50% 25 GM / 50ML DISP.SYRIN. IV PRN (16:30)
[2018-08-11] MEDS ORDERED: ACETAMINOPHEN 500 MG TABLET PO PRN (16:30)
[2018-08-11] MEDS ORDERED: ONDANSETRON PF 4 MG/2 ML VIAL. IV PRN (16:30)
[2018-08-11] MEDS ORDERED: ONDANSETRON ODT 4 MG TAB.RAPDIS. PO PRN (16:30)
[2018-08-11] MEDS ORDERED: traMADol 50 MG TABLET PO PRN (16:30)
[2018-08-11] MEDS: INSULIN LISPRO 300 UNITS/3 ML INSULN.PEN. SQ SCH ×2 (17:00)
[2018-08-11] MEDS: CLOPIDOGREL BISULFATE 75 MG TABLET PO SCH (17:00)
[2018-08-11] MEDS: oxyCODONE/APAP 5/325 1 TAB TABLET PO SCH ×2 (17:00→20:44)
[2018-08-11] MEDS: CALCIUM ACETATE 667 MG CAPSULE PO SCH (17:00)
[2018-08-11] MEDS: hydrOXYzine PAMOATE 25 MG CAPSULE PO SCH ×2 (17:00→20:44)
[2018-08-11] MEDS ORDERED: LIPA1CAP2 PO (18:26)
[2018-08-11] MEDS ORDERED: OMEG1CAP6 PO (18:26)
[2018-08-11] MEDS ORDERED: TAMS0.4C2 PO (18:26)
[2018-08-11] MEDS ORDERED: ROPI1TAB PO (18:26)
[2018-08-11] MEDS ORDERED: MAGN400T3 PO (18:26)
[2018-08-11] MEDS ORDERED: ACET500T68 PO (18:26)
[2018-08-11] MEDS ORDERED: SPIR25TA5 PO (18:26)
[2018-08-11] MEDS ORDERED: CYCL10TA2 PO (18:26)
[2018-08-11] MEDS ORDERED: GEMF600T4 PO (18:26)
[2018-08-11] MEDS ORDERED: CHOL10003 PO (18:26)
[2018-08-11] MEDS ORDERED: FOLI1TAB16 PO (18:26)
[2018-08-11] MEDS ORDERED: SENN8.6T99 PO (18:26)
[2018-08-11] MEDS ORDERED: ASPI-612 PO (18:26)
[2018-08-11] MEDS ORDERED: PREG75CA PO (18:26)
[2018-08-11] MEDS ORDERED: PANC1CAP PO (18:26)
[2018-08-11 19:00] VITALS: BP 90/37
[2018-08-11] MEDS: LATANOPROST 0.005% OPHTH SOLUTION 2.5ML BOTTLE. OU SCH (20:43)
[2018-08-11] MEDS: DORZOLAMIDE 2% OPHTH SOLUTION 10ML BOTTLE. OU SCH (20:43)
[2018-08-11] MEDS: silver sulfADIAZINE 1% CREAM 25GM TUBE. TP SCH (20:44)
[2018-08-11] MEDS: HALOPERIDOL 0.5 MG TABLET. PO SCH (20:44)
[2018-08-11] MEDS: ALPRAZolam 0.5 MG TABLET PO SCH (20:44)
[2018-08-11] MEDS: CHOLESTYRAMINE/ASPARTAME 4 GM PACKET PO SCH (20:45)
[2018-08-11] MEDS: TIMOLOL 0.25% OPHTH SOLUTION 5ML BOTTLE. OU SCH (20:55)
[2018-08-11] MEDS: INSULIN GLARGINE 300 UNITS/3 ML INSULN.PEN. SQ SCH (21:00)
[2018-08-11 23:00] VITALS: BP 94/42
[2018-08-12 03:03] VITALS: BP 92/35
[2018-08-12 05:54] LABS: BASO % 1 % (0-3); EOS # 0.1 x10^3/uL (0.0-0.7); EOS % 2 % (0-3); HEMATOCRIT 35.7 % (39.0-53.0); HEMOGLOBIN 11.9 g/dL (13.0-17.5); LYMPH # 0.8 x10^3/uL (1.0-4.8); LYMPH % 20 % (24-48); MEAN CORPUSCULAR HEMOGLOBIN 38 pg (25-35); MEAN CORPUSCULAR HGB CONC 34 g/dL (31-37); MEAN CORPUSCULAR VOLUME 112 fL (79-100); MONO # 0.6 x10^3/uL (0.0-1.1); MONO % 15 % (0-9); NEUT # 2.4 x10^3uL (1.8-7.7); NEUT % 62 % (31-73); PLATELET COUNT 77 x10^3/uL (140-400); RED BLOOD COUNT 3.18 x10^6/uL (4.30-5.70); RED CELL DISTRIBUTION WIDTH 15.6 % (11.5-14.5); WHITE BLOOD COUNT 3.9 x10^3/uL (4.0-11.0)
[2018-08-12 06:12] LABS: ALBUMIN 2.7 g/dL (3.4-5.0); CALCIUM 9.1 mg/dL (8.5-10.1); CREATININE 6.8 mg/dL (0.7-1.3); GFR 7.8; PHOSPHORUS 5.2 mg/dL (2.6-4.7); POTASSIUM 5.3 mmol/L (3.5-5.1)
[2018-08-12 07:00] VITALS: BP 92/51
[2018-08-12] MEDS: INSULIN LISPRO 300 UNITS/3 ML INSULN.PEN. SQ SCH ×6 (08:00→17:00)
[2018-08-12] MEDS: HALOPERIDOL 0.5 MG TABLET. PO SCH ×2 (08:49→21:04)
[2018-08-12] MEDS: ALPRAZolam 0.5 MG TABLET PO SCH ×3 (08:50→21:03)
[2018-08-12] MEDS: oxyCODONE/APAP 5/325 1 TAB TABLET PO SCH ×4 (08:51→21:04)
[2018-08-12] MEDS: PANTOPRAZOLE 40 MG TABLET.DR. PO SCH (08:53)
[2018-08-12] MEDS: MONTELUKAST SODIUM 10 MG TABLET. PO SCH (08:53)
[2018-08-12] MEDS: CALCIUM ACETATE 667 MG CAPSULE PO SCH ×3 (08:53→17:04)
[2018-08-12] MEDS: FUROSEMIDE 80 MG TABLET. PO SCH (08:53)
[2018-08-12] MEDS: hydrOXYzine PAMOATE 25 MG CAPSULE PO SCH ×4 (08:53→21:04)
[2018-08-12] MEDS: CHOLESTYRAMINE/ASPARTAME 4 GM PACKET PO SCH ×2 (08:55→21:03)
[2018-08-12] MEDS: silver sulfADIAZINE 1% CREAM 25GM TUBE. TP SCH ×2 (08:56→21:04)
[2018-08-12] MEDS: DORZOLAMIDE 2% OPHTH SOLUTION 10ML BOTTLE. OU SCH ×2 (08:56→21:05)
[2018-08-12] MEDS: TIMOLOL 0.25% OPHTH SOLUTION 5ML BOTTLE. OU SCH ×2 (08:56→21:05)
[2018-08-12] MEDS: METOPROLOL SUCC 24HR ER 25 MG TAB.ER.24H. PO SCH (09:00)
[2018-08-12 11:00] VITALS: BP 109/59
--- NOTE | 2018-08-12 11:22 | PDOC1 ---
History and Physical Date of Admission Date of Admission DATE: 08/12/18 TIME: 11:16 Identification/Chief Complaint Chief Complaint Confused per , coughing, low blood pressure per SNU staff Source Source: Caregiver, Chart review, Patient History of Present Illness History of Present Illness Rather a very poor historian with known to me from multiple admits either for ESRD or fluid overload or UTI or encephalopathy or basically just general failure to thrive in an elderly. He is a full code on chart, not at bedside As per ER M.D., brought him in or at least SNU staff because of his more confusion, hypotension and SOA or cough. Patient denies actually any symptoms but he is coughing some junky sounding cough on my exam. He is a rather poor historian. He is a dialysis Tuesday via fistula. He has multiple bruising maybe he is on blood thinners. He's a lot of comorbidities. May be if this hasn't been addressed in the past, need palliative, goals of care CODE STATUS etc. Chest x-ray shows atelectasis but no pneumonia. Lactate was elevated 2.1, recheck is normal. About to get dialysis now. Patient has no complaints.Pt actually told me that he came from home for 3 weeks now, but as per ER M.D. it was SNU staff that brought him in Past Medical History Cardiovascular: AFIB, CAD, HTN, Hyperlipidemia Pulmonary: Pneumonia, Other CENTRAL NERVOUS SYSTEM: Dementia GI: GERD, Peptic Ulcer disease Heme/Onc: Anemia NOS Hepatobiliary: No pertinent hx Psych: Anxiety, Depression Musculoskeletal: Osteoarthritis Rheumatologic: Other Infectious disease: No pertinent hx Renal/: Chronic renal failure Endocrine: Diabetes, Hyperparathyroidism Past Surgical History Past Surgical History: CABG, Other Family History Family History: No Significant, Heart Disease, Family History Unknown Social History Smoke: No ALCOHOL: none Drugs: None Current Problem List Problem List Problems Medical Problems: (1) Acute hyperkalemia Status: Acute (2) ESRD (end stage renal disease) on dialysis Status: Acute Current Medications Current Medications Current Medications Insulin Human Regular (HumuLIN R VIAL) 10 unit 1X ONCE IV Last administered on 08/11/18at 15:45; Start 08/11/18 at 15:30; Stop 08/11/18 at 15:31; Status DC Sodium Bicarbonate (Sodium Bicarb Adult 8.4% Syr) 50 meq 1X ONCE IV Last administered on 08/11/18at 15:40; Start 08/11/18 at 15:30; Stop 08/11/18 at 15:31 ; Status DC Albuterol Sulfate (Ventolin Neb Soln) 10 mg 1X ONCE NEB Last administered on at 15:41; Start 08/11/18 at 15:30; Stop 08/11/18 at 15:31; Status DC Albuterol Sulfate (Ventolin Neb Soln) 2.5 mg STK-MED ONCE .ROUTE ; Start at 15:25; Stop 08/11/18 at 15:26; Status DC Calcium Chloride (Calcium Chloride) 1,000 mg 1X ONCE IV Last administered on at 15:38; Start 08/11/18 at 15:30; Stop 08/11/18 at 15:31; Status DC Sodium Chloride 500 ml @ 500 mls/hr 1X ONCE IV Last administered on at 15:39; Start 08/11/18 at 15:30; Stop 08/11/18 at 16:30; Status DC Alprazolam (Xanax) 0.5 mg TID PO ; Start 08/11/18 at 21:00 Cholestyramine Resin (Questran Light) 4 gm BID@1000,2200 PO Last administered on 08/12/18at 08:55; Start 08/11/18 at 22:00 Clopidogrel Bisulfate (Plavix) 75 mg DAILYWSUP PO ; Start 08/11/18 at 17:00 Diltiazem HCl (Cardizem 24hr Cd) 120 mg DAILY PO ; Start 08/12/18 at 09:00 Furosemide (Lasix) 80 mg DAILY PO Last administered on 08/12/18at 08:53; Start 08/12/18 at 09:00 Haloperidol (Haldol) 0.5 mg BID PO ; Start 08/11/18 at 21:00 Insulin Glargine (Lantus) 24 units QHS SQ ; Start 08/11/18 at 21:00 Metoprolol Succinate (Toprol Xl) 25 mg DAILY PO ; Start 08/12/18 at 09:00 Oxycodone/ Acetaminophen (Percocet 5/325) 1 tab QID PO Last administered on at 08:58; Start 08/11/18 at 17:00 Silver Sulfadiazine (Silvadene) 1 ramon BID TP Last administered on 08/12/18at 08: 56; Start 08/11/18 at 21:00 Calcium Acetate (Phoslo) 1,334 mg TIDWMEALS PO Last administered on 08/12/18at 08:53; Start 08/11/18 at 17:00 Dorzolamide HCl (Trusopt) 1 drop BID OU Last administered on 08/12/18at 08:56; Start 08/11/18 at 21:00 Hydroxyzine Pamoate (Vistaril) 25 mg QID PO Last administered on 08/12/18at 08: 53; Start 08/11/18 at 17:00 Insulin Human Lispro (HumaLOG) 8 units TIDWMEALS SQ ; Start 08/11/18 at 17:00 Latanoprost (Xalatan) 1 drop QHS OU Last administered on 08/11/18at 20:43; Start 08/11/18 at 21:00 Midodrine (Proamatine) 5 mg QTUTHSA PO ; Start 08/12/18 at 16:00 Montelukast Sodium (Singulair) 10 mg DAILY PO Last administered on 08/12/18at 08 :53; Start 08/12/18 at 09:00 Pantoprazole Sodium (Protonix) 40 mg DAILYAC PO Last administered on 08/12/18at 08:53; Start 08/12/18 at 07:30 Acetaminophen (Tylenol) 500 mg PRN Q6HRS PRN PO MILD PAIN / TEMP; Start at 16:30 Tramadol HCl (Ultram) 50 mg PRN Q6HRS PRN PO MODERATE PAIN; Start 08/11/18 at 16:30 Ondansetron HCl (Zofran) 4 mg PRN Q6HRS PRN IV NAUSEA/VOMITING; Start 08/11/18 at 16:30 Ondansetron HCl (Zofran Odt) 4 mg PRN Q6HRS PRN PO NAUSEA/VOMITING; Start 08/11 at 16:30 Insulin Human Lispro (HumaLOG) 0-7 UNITS TIDWMEALS SQ ; Start 08/11/18 at 17:00 Dextrose (Dextrose 50%-Water Syringe) 12.5 gm PRN Q15MIN PRN IV SEE COMMENTS; Start 08/11/18 at 16:30 Timolol Maleate (Timoptic 0.25% Ophth) 1 drop BID OU Last administered on at 08:56; Start 08/11/18 at 21:00 Active Scripts Active Reported Tamsulosin Hcl 0.4 Mg Cap.er.24h 0.8 Mg PO DAILY Spironolactone 25 Mg Tablet 1 Tab PO DAILY Senokot (Sennosides) 8.6 Mg Tablet 1 Tab PO BID Requip (Ropinirole Hcl) 1 Mg Tablet 1 Tab PO QHS Lyrica (Pregabalin) 75 Mg Capsule 1 Cap PO BID Super Enzyme Caps (Pancreat/Bet Hcl/Pep/Brom/Pap) 1 Each Capsule 4 Cap PO QID Magnesium Oxide 400 Mg Tablet 1 Tab PO DAILY Gemfibrozil 600 Mg Tablet 1 Tab PO BIDWMEALS Folic Acid 1 Mg Tablet 1 Tab PO DAILY Fish Oil 1,000 Mg Capsule ([place]-3 Fatty Acids/Fish Oil) 1 Each Capsule 2,000 Each PO BID Cyclobenzaprine Hcl 10 Mg Tablet 1 Tab PO BID Creon Dr 6,000 Units Capsule (Lipase/Protease/Amylase) 1 Each Capsule.dr 1 Each PO QID Vitamin D3 (Cholecalciferol (Vitamin D3)) 1,000 Unit Tablet 3 Tab PO DAILY Aspirin Ec (Aspirin) 81 Mg Tablet.dr 1 Tab PO DAILY Acetaminophen 500 Mg Tablet 1,000 Mg PO PRN DAILY PRN Midodrine Hcl 5 Mg Tablet 5 Mg PO 3X/WEEK Haloperidol 2 Mg Tablet 0.5 Tab PO Q12HR Hydroxyzine Hcl 25 Mg Tablet 25 Mg PO QID Calcium Acetate 667 Mg Tablet 2 Cap PO BIDAC Prevalite Packet (Cholestyramine/Aspartame) 4 Gm Powd.pack 4 Gm PO BID Toprol Xl (Metoprolol Succinate) 25 Mg Tab.er.24h 1 Tab PO DAILY Furosemide 40 Mg Tablet 2 Tab PO DAILY Diltiazem 24HR Cd (Diltiazem Hcl) 120 Mg Cap.er.24h 1 Cap PO DAILY Percocet 5-325 Mg Tablet (Oxycodone/Acetaminophen) 1 Each Tablet 1 Tab PO QID Lantus Solostar (Insulin Glargine,Hum.rec.anlog) 100 Unit/1 Ml Insuln.pen 24 Unit SQ QHS Humalog (Insulin Lispro) 100 Unit/1 Ml Cartridge 8 Unit SQ TIDAC Alprazolam 0.5 Mg Tablet 1 Tab PO PRN TID PRN Prilosec Otc (Omeprazole Magnesium) 20 Mg Tablet. 20 Mg PO DAILY Allergies Allergies: Coded Allergies: Nbeooen-Syc-Ppu Reductase Inhibitor (Verified Allergy, Severe, Brain swelling. , 02/22/18) Pt was taking Gabapentin with a Statin and per . "It almost killed him." gabapentin (Verified Allergy, Severe, Brain swelling, 02/22/18) Per pt had Gabapentin with a Statin and it caused brain swelling, "almost killed him." sulfamethoxazole (Verified Allergy, Intermediate, 02/22/18) trimethoprim (Verified Allergy, Intermediate, 02/22/18) morphine (Verified Adverse Reaction, Severe, 02/22/18) ROS Review of System As per history of present illness, the rest of ROS 14 point negative Physical Exam General: Alert, Oriented X3, Cooperative, No acute distress HEENT: Atraumatic, PERRLA, EOMI Lungs: Clear to auscultation, Normal air movement Heart: S1S2, RRR, no thrills, no rubs, no gallops, no murmurs Cardiovascular: S1, S2 Abdomen: Normal bowel sounds, Soft, No tenderness, No hepatosplenomegaly, No masses Male Genitals Exam: normal genitalia Extremities: No clubbing, No cyanosis, No edema, Normal pulses, No tenderness/ swelling Skin: No rashes Neuro: Normal gait, Normal tone, Sensation intact, Cranial nerves 3-12 NL, Reflexes 2+, Other (slow to speech, muscle manual testing may be 4 out of 5 in all 4 extremities otherwise neuro exam is nonfocal) Psych/Mental Status: Mood NL Vitals Vitals Vital Signs Date Time Temp Pulse Resp B/P (MAP) Pulse Ox O2 Delivery O2 Flow Rate FiO2 08/12/18 08:58 Room Air 08/12/18 08:00 2.0 08/12/18 07:00 97.6 79 20 92/51 (65) 97 97.6 Labs Labs Laboratory Tests Test 08/11/18 14:10 08/11/18 14:12 08/11/18 17:40 08/11/18 20:58 White Blood Count 4.8 x10^3/uL (4.0-11.0) Red Blood Count 3.20 x10^6/uL (4.30-5.70) Hemoglobin 12.1 g/dL (13.0-17.5) Hematocrit 35.8 % (39.0-53.0) Mean Corpuscular Volume 112 fL (79-100) Mean Corpuscular Hemoglobin 38 pg (25-35) Mean Corpuscular Hemoglobin Concent 34 g/dL (31-37) Red Cell Distribution Width 15.9 % (11.5-14.5) Platelet Count 88 x10^3/uL (140-400) Neutrophils (%) (Auto) 75 % (31-73) Lymphocytes (%) (Auto) 11 % (24-48) Monocytes (%) (Auto) 13 % (0-9) Eosinophils (%) (Auto) 1 % (0-3) Basophils (%) (Auto) 1 % (0-3) Neutrophils # (Auto) 3.6 x10^3uL (1.8-7.7) Lymphocytes # (Auto) 0.5 x10^3/uL (1.0-4.8) Monocytes # (Auto) 0.6 x10^3/uL (0.0-1.1) Eosinophils # (Auto) 0.0 x10^3/uL (0.0-0.7) Basophils # (Auto) 0.0 x10^3/uL (0.0-0.2) Platelet Estimate Decreased (ADEQUATE) Macrocytosis Slight Prothrombin Time 16.2 SEC (11.7-14.0) Prothromb Time International Ratio 1.4 (0.8-1.1) Activated Partial Thromboplast Time 36 SEC (24-38) Sodium Level 131 mmol/L (136-145) Potassium Level 5.7 mmol/L (3.5-5.1) Chloride Level 95 mmol/L (98-107) Carbon Dioxide Level 29 mmol/L (21-32) Anion Gap 7 (6-14) Blood Urea Nitrogen 44 mg/dL (8-26) Creatinine 6.2 mg/dL (0.7-1.3) Estimated GFR (Cockcroft-Gault) 8.7 BUN/Creatinine Ratio 7 (6-20) Glucose Level 373 mg/dL (70-99) Lactic Acid Level 2.1 mmol/L (0.4-2.0) 1.9 mmol/L (0.4-2.0) Calcium Level 8.7 mg/dL (8.5-10.1) Magnesium Level 3.1 mg/dL (1.8-2.4) Total Bilirubin 1.4 mg/dL (0.2-1.0) Aspartate Amino Transf (AST/SGOT) 29 U/L (15-37) Alanine Aminotransferase (ALT/SGPT) 21 U/L (16-63) Alkaline Phosphatase 255 U/L (46-116) Ammonia 24 mcmol/L (11-34) Creatine Kinase 49 U/L (39-308) Creatine Kinase MB (Mass) 1.5 ng/mL (0.0-3.6) Creatine Kinase MB Relative Index % (0-4) Troponin I Quantitative < 0.017 ng/mL (0.000-0.055) RA-Rwa-I-Type Natriuretic Peptide 5824 pg/mL (0-449) Total Protein 7.2 g/dL (6.4-8.2) Albumin 2.8 g/dL (3.4-5.0) Albumin/Globulin Ratio 0.6 (1.0-1.7) O2 Saturation 96 % (92-99) Arterial Blood pH 7.33 (7.35-7.45) Arterial Blood pCO2 at Patient Temp 46 mmHg (35-46) Arterial Blood pO2 at Patient Temp 89 mmHg (65-108) Arterial Blood HCO3 24 mmol/L (21-28) Arterial Blood Base Excess -2 mmol/L (-3-3) FiO2 28.0 Glucose (Fingerstick) 141 mg/dL (70-99) Test 08/12/18 05:05 08/12/18 08:54 08/12/18 10:47 White Blood Count 3.9 x10^3/uL (4.0-11.0) Red Blood Count 3.18 x10^6/uL (4.30-5.70) Hemoglobin 11.9 g/dL (13.0-17.5) Hematocrit 35.7 % (39.0-53.0) Mean Corpuscular Volume 112 fL (79-100) Mean Corpuscular Hemoglobin 38 pg (25-35) Mean Corpuscular Hemoglobin Concent 34 g/dL (31-37) Red Cell Distribution Width 15.6 % (11.5-14.5) Platelet Count 77 x10^3/uL (140-400) Neutrophils (%) (Auto) 62 % (31-73) Lymphocytes (%) (Auto) 20 % (24-48) Monocytes (%) (Auto) 15 % (0-9) Eosinophils (%) (Auto) 2 % (0-3) Basophils (%) (Auto) 1 % (0-3) Neutrophils # (Auto) 2.4 x10^3uL (1.8-7.7) Lymphocytes # (Auto) 0.8 x10^3/uL (1.0-4.8) Monocytes # (Auto) 0.6 x10^3/uL (0.0-1.1) Eosinophils # (Auto) 0.1 x10^3/uL (0.0-0.7) Basophils # (Auto) 0.0 x10^3/uL (0.0-0.2) Sodium Level 136 mmol/L (136-145) Potassium Level 5.3 mmol/L (3.5-5.1) Chloride Level 99 mmol/L (98-107) Carbon Dioxide Level 28 mmol/L (21-32) Anion Gap 9 (6-14) Blood Urea Nitrogen 50 mg/dL (8-26) Creatinine 6.8 mg/dL (0.7-1.3) Estimated GFR (Cockcroft-Gault) 7.8 Glucose Level 127 mg/dL (70-99) Calcium Level 9.1 mg/dL (8.5-10.1) Phosphorus Level 5.2 mg/dL (2.6-4.7) Albumin 2.7 g/dL (3.4-5.0) Glucose (Fingerstick) 110 mg/dL (70-99) 186 mg/dL (70-99) Laboratory Tests Test 08/11/18 14:10 08/11/18 14:12 08/11/18 17:40 08/11/18 20:58 White Blood Count 4.8 x10^3/uL (4.0-11.0) Red Blood Count 3.20 x10^6/uL (4.30-5.70) Hemoglobin 12.1 g/dL (13.0-17.5) Hematocrit 35.8 % (39.0-53.0) Mean Corpuscular Volume 112 fL (79-100) Mean Corpuscular Hemoglobin 38 pg (25-35) Mean Corpuscular Hemoglobin Concent 34 g/dL (31-37) Red Cell Distribution Width 15.9 % (11.5-14.5) Platelet Count 88 x10^3/uL (140-400) Neutrophils (%) (Auto) 75 % (31-73) Lymphocytes (%) (Auto) 11 % (24-48) Monocytes (%) (Auto) 13 % (0-9) Eosinophils (%) (Auto) 1 % (0-3) Basophils (%) (Auto) 1 % (0-3) Neutrophils # (Auto) 3.6 x10^3uL (1.8-7.7) Lymphocytes # (Auto) 0.5 x10^3/uL (1.0-4.8) Monocytes # (Auto) 0.6 x10^3/uL (0.0-1.1) Eosinophils # (Auto) 0.0 x10^3/uL (0.0-0.7) Basophils # (Auto) 0.0 x10^3/uL (0.0-0.2) Platelet Estimate Decreased (ADEQUATE) Macrocytosis Slight Prothrombin Time 16.2 SEC (11.7-14.0) Prothromb Time International Ratio 1.4 (0.8-1.1) Activated Partial Thromboplast Time 36 SEC (24-38) Sodium Level 131 mmol/L (136-145) Potassium Level 5.7 mmol/L (3.5-5.1) Chloride Level 95 mmol/L (98-107) Carbon Dioxide Level 29 mmol/L (21-32) Anion Gap 7 (6-14) Blood Urea Nitrogen 44 mg/dL (8-26) Creatinine 6.2 mg/dL (0.7-1.3) Estimated GFR (Cockcroft-Gault) 8.7 BUN/Creatinine Ratio 7 (6-20) Glucose Level 373 mg/dL (70-99) Lactic Acid Level 2.1 mmol/L (0.4-2.0) 1.9 mmol/L (0.4-2.0) Calcium Level 8.7 mg/dL (8.5-10.1) Magnesium Level 3.1 mg/dL (1.8-2.4) Total Bilirubin 1.4 mg/dL (0.2-1.0) Aspartate Amino Transf (AST/SGOT) 29 U/L (15-37) Alanine Aminotransferase (ALT/SGPT) 21 U/L (16-63) Alkaline Phosphatase 255 U/L (46-116) Ammonia 24 mcmol/L (11-34) Creatine Kinase 49 U/L (39-308) Creatine Kinase MB (Mass) 1.5 ng/mL (0.0-3.6) Creatine Kinase MB Relative Index % (0-4) Troponin I Quantitative < 0.017 ng/mL (0.000-0.055) BS-Quh-X-Type Natriuretic Peptide 5824 pg/mL (0-449) Total Protein 7.2 g/dL (6.4-8.2) Albumin 2.8 g/dL (3.4-5.0) Albumin/Globulin Ratio 0.6 (1.0-1.7) O2 Saturation 96 % (92-99) Arterial Blood pH 7.33 (7.35-7.45) Arterial Blood pCO2 at Patient Temp 46 mmHg (35-46) Arterial Blood pO2 at Patient Temp 89 mmHg (65-108) Arterial Blood HCO3 24 mmol/L (21-28) Arterial Blood Base Excess -2 mmol/L (-3-3) FiO2 28.0 Glucose (Fingerstick) 141 mg/dL (70-99) Test 08/12/18 05:05 08/12/18 08:54 08/12/18 10:47 White Blood Count 3.9 x10^3/uL (4.0-11.0) Red Blood Count 3.18 x10^6/uL (4.30-5.70) Hemoglobin 11.9 g/dL (13.0-17.5) Hematocrit 35.7 % (39.0-53.0) Mean Corpuscular Volume 112 fL (79-100) Mean Corpuscular Hemoglobin 38 pg (25-35) Mean Corpuscular Hemoglobin Concent 34 g/dL (31-37) Red Cell Distribution Width 15.6 % (11.5-14.5) Platelet Count 77 x10^3/uL (140-400) Neutrophils (%) (Auto) 62 % (31-73) Lymphocytes (%) (Auto) 20 % (24-48) Monocytes (%) (Auto) 15 % (0-9) Eosinophils (%) (Auto) 2 % (0-3) Basophils (%) (Auto) 1 % (0-3) Neutrophils # (Auto) 2.4 x10^3uL (1.8-7.7) Lymphocytes # (Auto) 0.8 x10^3/uL (1.0-4.8) Monocytes # (Auto) 0.6 x10^3/uL (0.0-1.1) Eosinophils # (Auto) 0.1 x10^3/uL (0.0-0.7) Basophils # (Auto) 0.0 x10^3/uL (0.0-0.2) Sodium Level 136 mmol/L (136-145) Potassium Level 5.3 mmol/L (3.5-5.1) Chloride Level 99 mmol/L (98-107) Carbon Dioxide Level 28 mmol/L (21-32) Anion Gap 9 (6-14) Blood Urea Nitrogen 50 mg/dL (8-26) Creatinine 6.8 mg/dL (0.7-1.3) Estimated GFR (Cockcroft-Gault) 7.8 Glucose Level 127 mg/dL (70-99) Calcium Level 9.1 mg/dL (8.5-10.1) Phosphorus Level 5.2 mg/dL (2.6-4.7) Albumin 2.7 g/dL (3.4-5.0) Glucose (Fingerstick) 110 mg/dL (70-99) 186 mg/dL (70-99) VTE Prophylaxis Ordered VTE Prophylaxis Devices: Yes VTE Pharmacological Prophylaxi: Yes Assessment/Plan Assessment/Plan ESRD on dialysis Anemia of ESRD Hypertension Failure to thrive symptoms Generalized weakness Previous SNU resident Cough atelectasis on chest x-ray Hyperkalemia in a dialysis patient-did not miss dialysis Metabolic encephalopathy POA, transient, resolved seemed to be at baseline Elevated lactate SIRS POA with target organ damage -hypotension, transient Plan: I have resume home meds with holding parameters for blood pressure meds Dialysis per renal Social work consult to screen PT OT Maybe palliative to address goals of care were at these CODE STATUS, Tuesday Discussed with dialysis nurse, Full code for now HIgh fall risk DVTY ppx? ENRIQUE ALCALA MD Aug 12, 2018 11:22
[2018-08-12] MEDS ORDERED: IV NORMAL SALINE 1000ML BAG 1,000 ML IV PRN ×2 (12:10)
[2018-08-12] MEDS ORDERED: diphenhydrAMINE 50 MG/ML VIAL IV PRN ×2 (12:15)
[2018-08-12] MEDS ORDERED: DIALYSIS PATIENT. MC PRN (12:15)
--- NOTE | 2018-08-12 12:58 | CONS ---
DATE OF CONSULTATION: REASON FOR CONSULTATION: Renal failure. HISTORY OF PRESENT ILLNESS: This is an 82-year-old gentleman with history of end-stage renal disease, hemodialysis dependent, secondary to diabetes mellitus. The patient does dialysis Tuesday, and Tuesday. The patient currently admitted with increasing shortness of breath. In this setting he needs ongoing dialysis. PAST MEDICAL HISTORY: Diabetes mellitus, hypertension, end-stage renal disease, hemodialysis dependent, congestive cardiomyopathy, dementia, anemia of chronic kidney disease, secondary hyperparathyroidism with renal disease, atrial fibrillation, degenerative arthritis, hyperlipidemia. PAST SURGICAL HISTORY: Coronary artery bypass grafting, pacemaker placement, coronary artery stenting, left arm shunt. ALLERGIES: STATINS, GABAPENTIN, MORPHINE, SULFA, TRIMETHOPRIM, HMG-COA REDUCTASE INHIBITORS. MEDICATIONS: Reviewed per medication list. FAMILY HISTORY: Noncontributory. SOCIAL HISTORY: Resides with assistance. REVIEW OF SYSTEMS: No headache, sinus problem, nasal drainage, epistaxis, change in vision or hearing. No difficulty swallowing. No fever, chills, cough, sputum, or hemoptysis. No chest pain, shortness of breath on exertion. No abdominal pain. No nausea, vomiting, diarrhea. No seizures. PHYSICAL EXAMINATION: GENERAL: The patient awake, conversant. HEENT: Clear. NECK: No increased JVD. No thyromegaly, mass, adenopathy. LUNGS: Clear. CARDIAC: Without S3 or rub. ABDOMEN: Soft, nontender, no bruits. EXTREMITIES: No edema. LABORATORY DATA: Hemoglobin 11.9, hematocrit 35.7. Potassium 5.3, CO2 of 28, creatinine 6.8. IMPRESSION: 1. End-stage renal disease secondary to diabetic nephropathy. 2. Mild pulmonary edema. 3. Mild hyperkalemia. RECOMMENDATIONS: Proceed with dialysis today for fluid balance, solute clearance and reduction of potassium. MAK PINK MD DR: EVELYNE/elpidio JOB#: [id number] / [id number]
[2018-08-12 15:23] VITALS: BP 113/48
[2018-08-12] MEDS ORDERED: MIDODRINE 5 MG TABLET PO SCH (16:00)
[2018-08-12] MEDS: CLOPIDOGREL BISULFATE 75 MG TABLET PO SCH ×2 (17:00→17:04)
[2018-08-12 19:00] VITALS: BP 90/44
[2018-08-12] MEDS: LATANOPROST 0.005% OPHTH SOLUTION 2.5ML BOTTLE. OU SCH (21:05)
[2018-08-12] MEDS: INSULIN GLARGINE 300 UNITS/3 ML INSULN.PEN. SQ SCH (21:21)
[2018-08-12 23:00] VITALS: BP 109/50
[2018-08-13 02:52] VITALS: BP 126/83
[2018-08-13 06:56] LABS: ALBUMIN 2.8 g/dL (3.4-5.0); CALCIUM 8.9 mg/dL (8.5-10.1); CREATININE 5.2 mg/dL (0.7-1.3); GFR 10.7; PHOSPHORUS 3.4 mg/dL (2.6-4.7); POTASSIUM 4.3 mmol/L (3.5-5.1)
[2018-08-13 07:00] VITALS: BP 119/51
[2018-08-13] MEDS: CHOLESTYRAMINE/ASPARTAME 4 GM PACKET PO SCH ×2 (08:35→20:43)
[2018-08-13] MEDS: oxyCODONE/APAP 5/325 1 TAB TABLET PO SCH ×4 (08:35→20:44)
[2018-08-13] MEDS: hydrOXYzine PAMOATE 25 MG CAPSULE PO SCH ×4 (08:35→20:43)
[2018-08-13] MEDS: CALCIUM ACETATE 667 MG CAPSULE PO SCH ×3 (08:35→17:26)
[2018-08-13] MEDS: DORZOLAMIDE 2% OPHTH SOLUTION 10ML BOTTLE. OU SCH ×2 (08:36→20:45)
[2018-08-13] MEDS: TIMOLOL 0.25% OPHTH SOLUTION 5ML BOTTLE. OU SCH ×2 (08:36→20:45)
[2018-08-13] MEDS: MONTELUKAST SODIUM 10 MG TABLET. PO SCH (08:36)
[2018-08-13] MEDS: PANTOPRAZOLE 40 MG TABLET.DR. PO SCH (08:36)
[2018-08-13] MEDS: silver sulfADIAZINE 1% CREAM 25GM TUBE. TP SCH ×2 (08:38→21:00)
[2018-08-13] MEDS: FUROSEMIDE 80 MG TABLET. PO SCH (08:38)
[2018-08-13] MEDS: ALPRAZolam 0.5 MG TABLET PO SCH ×2 (08:39→13:37)
[2018-08-13] MEDS: INSULIN LISPRO 300 UNITS/3 ML INSULN.PEN. SQ SCH ×7 (08:53→17:00)
[2018-08-13] MEDS: METOPROLOL SUCC 24HR ER 25 MG TAB.ER.24H. PO SCH (09:00)
[2018-08-13] MEDS: HALOPERIDOL 0.5 MG TABLET. PO SCH ×2 (09:00→21:00)
[2018-08-13] MEDS ORDERED: DEXTROSE 50% 25 GM / 50ML DISP.SYRIN. IV PRN (09:00)
[2018-08-13 11:00] VITALS: BP 118/63
--- NOTE | 2018-08-13 11:54 | PDOC ---
PROGRESS NOTES Chief Complaint Chief Complaint ESRD on dialysis Anemia of ESRD Hypertension Failure to thrive symptoms Generalized weakness Previous SNU resident Cough atelectasis on chest x-ray Hyperkalemia in a dialysis patient-did not miss dialysis Metabolic encephalopathy POA, transient, resolved seemed to be at baseline Elevated lactate SIRS POA with target organ damage -hypotension, transient History of Present Illness History of Present Illness NO More hypotension But blood sugars still running high mid 200s Hgb A1c 6.4 and 2017 Plan: Shift to sliding scale high-dose insulin Increase Levemir from 20 to 30 daily at bedtime Increase NovoLog from 8 to10 units 3 times a day Patient needs SNU Social work consult for SNU Supportive care Hard of hearing, hard of dialing 's phone number- I did hell him with that Needs SNU Vitals Vitals Vital Signs Date Time Temp Pulse Resp B/P (MAP) Pulse Ox O2 Delivery O2 Flow Rate FiO2 08/13/18 09:35 Nasal Cannula 08/13/18 08:38 83 119/51 08/13/18 08:00 2.0 08/13/18 07:00 98.0 18 99 98.0 Physical Exam General: Alert, Oriented X3, Cooperative, No acute distress Lungs: Clear Abdomen: Normal bowel sounds, Soft, No tenderness, No hepatosplenomegaly, No masses Extremities: No clubbing, No cyanosis, No edema, Normal pulses, No tenderness/ swelling Skin: No rashes Labs LABS Laboratory Tests Test 08/12/18 15:16 08/12/18 16:44 08/12/18 20:59 08/13/18 05:43 Glucose (Fingerstick) 113 mg/dL (70-99) 153 mg/dL (70-99) 369 mg/dL (70-99) Sodium Level 134 mmol/L (136-145) Potassium Level 4.3 mmol/L (3.5-5.1) Chloride Level 96 mmol/L (98-107) Carbon Dioxide Level 32 mmol/L (21-32) Anion Gap 6 (6-14) Blood Urea Nitrogen 34 mg/dL (8-26) Creatinine 5.2 mg/dL (0.7-1.3) Estimated GFR (Cockcroft-Gault) 10.7 Glucose Level 229 mg/dL (70-99) Calcium Level 8.9 mg/dL (8.5-10.1) Phosphorus Level 3.4 mg/dL (2.6-4.7) Albumin 2.8 g/dL (3.4-5.0) Test 08/13/18 07:27 08/13/18 11:45 Glucose (Fingerstick) 230 mg/dL (70-99) 138 mg/dL (70-99) Review of Systems Review of Systems review of systems, limited, hard of hearing Assessment and Plan Assessmemt and Plan Problems Medical Problems: (1) Acute hyperkalemia Status: Acute (2) ESRD (end stage renal disease) on dialysis Status: Acute Comment Review of Relevant I have reviewed the following items sarah (where applicable) has been applied. Labs Laboratory Tests Test 08/11/18 14:10 08/11/18 14:12 08/11/18 17:40 08/11/18 20:58 White Blood Count 4.8 x10^3/uL (4.0-11.0) Red Blood Count 3.20 x10^6/uL (4.30-5.70) Hemoglobin 12.1 g/dL (13.0-17.5) Hematocrit 35.8 % (39.0-53.0) Mean Corpuscular Volume 112 fL (79-100) Mean Corpuscular Hemoglobin 38 pg (25-35) Mean Corpuscular Hemoglobin Concent 34 g/dL (31-37) Red Cell Distribution Width 15.9 % (11.5-14.5) Platelet Count 88 x10^3/uL (140-400) Neutrophils (%) (Auto) 75 % (31-73) Lymphocytes (%) (Auto) 11 % (24-48) Monocytes (%) (Auto) 13 % (0-9) Eosinophils (%) (Auto) 1 % (0-3) Basophils (%) (Auto) 1 % (0-3) Neutrophils # (Auto) 3.6 x10^3uL (1.8-7.7) Lymphocytes # (Auto) 0.5 x10^3/uL (1.0-4.8) Monocytes # (Auto) 0.6 x10^3/uL (0.0-1.1) Eosinophils # (Auto) 0.0 x10^3/uL (0.0-0.7) Basophils # (Auto) 0.0 x10^3/uL (0.0-0.2) Platelet Estimate Decreased (ADEQUATE) Macrocytosis Slight Prothrombin Time 16.2 SEC (11.7-14.0) Prothromb Time International Ratio 1.4 (0.8-1.1) Activated Partial Thromboplast Time 36 SEC (24-38) Sodium Level 131 mmol/L (136-145) Potassium Level 5.7 mmol/L (3.5-5.1) Chloride Level 95 mmol/L (98-107) Carbon Dioxide Level 29 mmol/L (21-32) Anion Gap 7 (6-14) Blood Urea Nitrogen 44 mg/dL (8-26) Creatinine 6.2 mg/dL (0.7-1.3) Estimated GFR (Cockcroft-Gault) 8.7 BUN/Creatinine Ratio 7 (6-20) Glucose Level 373 mg/dL (70-99) Lactic Acid Level 2.1 mmol/L (0.4-2.0) 1.9 mmol/L (0.4-2.0) Calcium Level 8.7 mg/dL (8.5-10.1) Magnesium Level 3.1 mg/dL (1.8-2.4) Total Bilirubin 1.4 mg/dL (0.2-1.0) Aspartate Amino Transf (AST/SGOT) 29 U/L (15-37) Alanine Aminotransferase (ALT/SGPT) 21 U/L (16-63) Alkaline Phosphatase 255 U/L (46-116) Ammonia 24 mcmol/L (11-34) Creatine Kinase 49 U/L (39-308) Creatine Kinase MB (Mass) 1.5 ng/mL (0.0-3.6) Creatine Kinase MB Relative Index % (0-4) Troponin I Quantitative < 0.017 ng/mL (0.000-0.055) JC-Aod-H-Type Natriuretic Peptide 5824 pg/mL (0-449) Total Protein 7.2 g/dL (6.4-8.2) Albumin 2.8 g/dL (3.4-5.0) Albumin/Globulin Ratio 0.6 (1.0-1.7) O2 Saturation 96 % (92-99) Arterial Blood pH 7.33 (7.35-7.45) Arterial Blood pCO2 at Patient Temp 46 mmHg (35-46) Arterial Blood pO2 at Patient Temp 89 mmHg (65-108) Arterial Blood HCO3 24 mmol/L (21-28) Arterial Blood Base Excess -2 mmol/L (-3-3) FiO2 28.0 Glucose (Fingerstick) 141 mg/dL (70-99) Test 08/12/18 05:05 08/12/18 08:54 08/12/18 10:47 08/12/18 15:16 White Blood Count 3.9 x10^3/uL (4.0-11.0) Red Blood Count 3.18 x10^6/uL (4.30-5.70) Hemoglobin 11.9 g/dL (13.0-17.5) Hematocrit 35.7 % (39.0-53.0) Mean Corpuscular Volume 112 fL (79-100) Mean Corpuscular Hemoglobin 38 pg (25-35) Mean Corpuscular Hemoglobin Concent 34 g/dL (31-37) Red Cell Distribution Width 15.6 % (11.5-14.5) Platelet Count 77 x10^3/uL (140-400) Neutrophils (%) (Auto) 62 % (31-73) Lymphocytes (%) (Auto) 20 % (24-48) Monocytes (%) (Auto) 15 % (0-9) Eosinophils (%) (Auto) 2 % (0-3) Basophils (%) (Auto) 1 % (0-3) Neutrophils # (Auto) 2.4 x10^3uL (1.8-7.7) Lymphocytes # (Auto) 0.8 x10^3/uL (1.0-4.8) Monocytes # (Auto) 0.6 x10^3/uL (0.0-1.1) Eosinophils # (Auto) 0.1 x10^3/uL (0.0-0.7) Basophils # (Auto) 0.0 x10^3/uL (0.0-0.2) Sodium Level 136 mmol/L (136-145) Potassium Level 5.3 mmol/L (3.5-5.1) Chloride Level 99 mmol/L (98-107) Carbon Dioxide Level 28 mmol/L (21-32) Anion Gap 9 (6-14) Blood Urea Nitrogen 50 mg/dL (8-26) Creatinine 6.8 mg/dL (0.7-1.3) Estimated GFR (Cockcroft-Gault) 7.8 Glucose Level 127 mg/dL (70-99) Calcium Level 9.1 mg/dL (8.5-10.1) Phosphorus Level 5.2 mg/dL (2.6-4.7) Albumin 2.7 g/dL (3.4-5.0) Glucose (Fingerstick) 110 mg/dL (70-99) 186 mg/dL (70-99) 113 mg/dL (70-99) Test 08/12/18 16:44 08/12/18 20:59 08/13/18 05:43 08/13/18 07:27 Glucose (Fingerstick) 153 mg/dL (70-99) 369 mg/dL (70-99) 230 mg/dL (70-99) Sodium Level 134 mmol/L (136-145) Potassium Level 4.3 mmol/L (3.5-5.1) Chloride Level 96 mmol/L (98-107) Carbon Dioxide Level 32 mmol/L (21-32) Anion Gap 6 (6-14) Blood Urea Nitrogen 34 mg/dL (8-26) Creatinine 5.2 mg/dL (0.7-1.3) Estimated GFR (Cockcroft-Gault) 10.7 Glucose Level 229 mg/dL (70-99) Calcium Level 8.9 mg/dL (8.5-10.1) Phosphorus Level 3.4 mg/dL (2.6-4.7) Albumin 2.8 g/dL (3.4-5.0) Test 08/13/18 11:45 Glucose (Fingerstick) 138 mg/dL (70-99) Laboratory Tests Test 08/12/18 15:16 08/12/18 16:44 08/12/18 20:59 08/13/18 05:43 Glucose (Fingerstick) 113 mg/dL (70-99) 153 mg/dL (70-99) 369 mg/dL (70-99) Sodium Level 134 mmol/L (136-145) Potassium Level 4.3 mmol/L (3.5-5.1) Chloride Level 96 mmol/L (98-107) Carbon Dioxide Level 32 mmol/L (21-32) Anion Gap 6 (6-14) Blood Urea Nitrogen 34 mg/dL (8-26) Creatinine 5.2 mg/dL (0.7-1.3) Estimated GFR (Cockcroft-Gault) 10.7 Glucose Level 229 mg/dL (70-99) Calcium Level 8.9 mg/dL (8.5-10.1) Phosphorus Level 3.4 mg/dL (2.6-4.7) Albumin 2.8 g/dL (3.4-5.0) Test 08/13/18 07:27 08/13/18 11:45 Glucose (Fingerstick) 230 mg/dL (70-99) 138 mg/dL (70-99) Microbiology 08/11/18 Blood Culture - Preliminary, Resulted NO GROWTH AFTER 1 DAY Medications Current Medications Insulin Human Regular (HumuLIN R VIAL) 10 unit 1X ONCE IV Last administered on 08/11/18at 15:45; Start 08/11/18 at 15:30; Stop 08/11/18 at 15:31; Status DC Sodium Bicarbonate (Sodium Bicarb Adult 8.4% Syr) 50 meq 1X ONCE IV Last administered on 08/11/18at 15:40; Start 08/11/18 at 15:30; Stop 08/11/18 at 15:31 ; Status DC Albuterol Sulfate (Ventolin Neb Soln) 10 mg 1X ONCE NEB Last administered on at 15:41; Start 08/11/18 at 15:30; Stop 08/11/18 at 15:31; Status DC Albuterol Sulfate (Ventolin Neb Soln) 2.5 mg STK-MED ONCE .ROUTE ; Start at 15:25; Stop 08/11/18 at 15:26; Status DC Calcium Chloride (Calcium Chloride) 1,000 mg 1X ONCE IV Last administered on at 15:38; Start 08/11/18 at 15:30; Stop 08/11/18 at 15:31; Status DC Sodium Chloride 500 ml @ 500 mls/hr 1X ONCE IV Last administered on at 15:39; Start 08/11/18 at 15:30; Stop 08/11/18 at 16:30; Status DC Alprazolam (Xanax) 0.5 mg TID PO Last administered on 08/12/18at 21:03; Start at 21:00 Cholestyramine Resin (Questran Light) 4 gm BID@1000,2200 PO Last administered on 08/13/18 08:35; Start 08/11/18 at 22:00 Clopidogrel Bisulfate (Plavix) 75 mg DAILYWSUP PO ; Start 08/11/18 at 17:00; Stop 08/12/18 at 17:07; Status DC Diltiazem HCl (Cardizem 24hr Cd) 120 mg DAILY PO Last administered on 08:38; Start 08/12/18 at 09:00 Furosemide (Lasix) 80 mg DAILY PO Last administered on 08/13/18 08:38; Start 08/12/18 at 09:00 Haloperidol (Haldol) 0.5 mg BID PO Last administered on 08/12/18 21:04; Start 08/11/18 at 21:00 Insulin Glargine (Lantus) 24 units QHS SQ Last administered on 08/12/18at 21:21 ; Start 08/11/18 at 21:00; Stop 08/13/18 at 08:57; Status DC Metoprolol Succinate (Toprol Xl) 25 mg DAILY PO ; Start 08/12/18 at 09:00 Oxycodone/ Acetaminophen (Percocet 5/325) 1 tab QID PO Last administered on 08:35; Start 08/11/18 at 17:00 Silver Sulfadiazine (Silvadene) 1 ramon BID TP Last administered on 08/13/18 08: 38; Start 08/11/18 at 21:00 Calcium Acetate (Phoslo) 1,334 mg TIDWMEALS PO Last administered on 08/13/18 08:35; Start 08/11/18 at 17:00 Dorzolamide HCl (Trusopt) 1 drop BID OU Last administered on 08/13/18 08:36; Start 08/11/18 at 21:00 Hydroxyzine Pamoate (Vistaril) 25 mg QID PO Last administered on 08/13/18 08: 35; Start 08/11/18 at 17:00 Insulin Human Lispro (HumaLOG) 8 units TIDWMEALS SQ Last administered on at 08:53; Start 08/11/18 at 17:00; Stop 08/13/18 at 08:57; Status DC Latanoprost (Xalatan) 1 drop QHS OU Last administered on 08/12/18at 21:05; Start 08/11/18 at 21:00 Midodrine (Proamatine) 5 mg QTUTHSA PO ; Start 08/12/18 at 16:00 Montelukast Sodium (Singulair) 10 mg DAILY PO Last administered on 08/13/18at 08 :36; Start 08/12/18 at 09:00 Pantoprazole Sodium (Protonix) 40 mg DAILYAC PO Last administered on 08/13/18at 08:36; Start 08/12/18 at 07:30 Acetaminophen (Tylenol) 500 mg PRN Q6HRS PRN PO MILD PAIN / TEMP; Start at 16:30 Tramadol HCl (Ultram) 50 mg PRN Q6HRS PRN PO MODERATE PAIN; Start 08/11/18 at 16:30 Ondansetron HCl (Zofran) 4 mg PRN Q6HRS PRN IV NAUSEA/VOMITING; Start 08/11/18 at 16:30 Ondansetron HCl (Zofran Odt) 4 mg PRN Q6HRS PRN PO NAUSEA/VOMITING; Start 08/11 at 16:30 Insulin Human Lispro (HumaLOG) 0-7 UNITS TIDWMEALS SQ Last administered on 08/13at 08:53; Start 08/11/18 at 17:00; Stop 08/13/18 at 08:57; Status DC Dextrose (Dextrose 50%-Water Syringe) 12.5 gm PRN Q15MIN PRN IV SEE COMMENTS; Start 08/11/18 at 16:30; Stop 08/13/18 at 09:04; Status DC Timolol Maleate (Timoptic 0.25% [facility]) 1 drop BID OU Last administered on at 08:36; Start 08/11/18 at 21:00 Sodium Chloride 1,000 ml @ 1,000 mls/hr Q1H PRN IV hypotension; Start 08/12/18 at 12:10; Stop 08/12/18 at 18:09; Status DC Diphenhydramine HCl (Benadryl) 25 mg 1X PRN PRN IV ITCHING; Start 08/12/18 at 12:15; Stop 08/13/18 at 12:14 Diphenhydramine HCl (Benadryl) 25 mg 1X PRN PRN IV ITCHING; Start 08/12/18 at 12:15; Stop 08/13/18 at 12:14 Sodium Chloride 1,000 ml @ 400 mls/hr Q2H30M PRN IV PATENCY; Start 08/12/18 at 12:10; Stop 08/13/18 at 00:09; Status DC Info (PHARMACY MONITORING -- do not chart) 1 each PRN DAILY PRN MC SEE COMMENTS ; Start 08/12/18 at 12:15 Insulin Glargine (Lantus) 30 units QHS SQ ; Start 08/13/18 at 21:00 Insulin Human Lispro (HumaLOG) 10 units TIDWMEALS SQ ; Start 08/13/18 at 12:00 Insulin Human Lispro (HumaLOG) 0-9 UNITS TIDWMEALS SQ ; Start 08/13/18 at 09:30 Dextrose (Dextrose 50%-Water Syringe) 12.5 gm PRN Q15MIN PRN IV SEE COMMENTS; Start 08/13/18 at 09:00 Active Scripts Active Reported Tamsulosin Hcl 0.4 Mg Cap.er.24h 0.8 Mg PO DAILY Spironolactone 25 Mg Tablet 1 Tab PO DAILY Senokot (Sennosides) 8.6 Mg Tablet 1 Tab PO BID Requip (Ropinirole Hcl) 1 Mg Tablet 1 Tab PO QHS Lyrica (Pregabalin) 75 Mg Capsule 1 Cap PO BID Super Enzyme Caps (Pancreat/Bet Hcl/Pep/Brom/Pap) 1 Each Capsule 4 Cap PO QID Magnesium Oxide 400 Mg Tablet 1 Tab PO DAILY Gemfibrozil 600 Mg Tablet 1 Tab PO BIDWMEALS Folic Acid 1 Mg Tablet 1 Tab PO DAILY Fish Oil 1,000 Mg Capsule ([place]-3 Fatty Acids/Fish Oil) 1 Each Capsule 2,000 Each PO BID Cyclobenzaprine Hcl 10 Mg Tablet 1 Tab PO BID Irina Elias 6,000 Units Capsule (Lipase/Protease/Amylase) 1 Each Capsule. 1 Each PO QID Vitamin D3 (Cholecalciferol (Vitamin D3)) 1,000 Unit Tablet 3 Tab PO DAILY Aspirin Ec (Aspirin) 81 Mg Tablet.dr 1 Tab PO DAILY Acetaminophen 500 Mg Tablet 1,000 Mg PO PRN DAILY PRN Midodrine Hcl 5 Mg Tablet 5 Mg PO 3X/WEEK Haloperidol 2 Mg Tablet 0.5 Tab PO Q12HR Hydroxyzine Hcl 25 Mg Tablet 25 Mg PO QID Calcium Acetate 667 Mg Tablet 2 Cap PO BIDAC Prevalite Packet (Cholestyramine/Aspartame) 4 Gm Powd.pack 4 Gm PO BID Toprol Xl (Metoprolol Succinate) 25 Mg Tab.er.24h 1 Tab PO DAILY Furosemide 40 Mg Tablet 2 Tab PO DAILY Diltiazem 24HR Cd (Diltiazem Hcl) 120 Mg Cap.er.24h 1 Cap PO DAILY Percocet 5-325 Mg Tablet (Oxycodone/Acetaminophen) 1 Each Tablet 1 Tab PO QID Lantus Solostar (Insulin Glargine,Hum.rec.anlog) 100 Unit/1 Ml Insuln.pen 24 Unit SQ QHS Humalog (Insulin Lispro) 100 Unit/1 Ml Cartridge 8 Unit SQ TIDAC Alprazolam 0.5 Mg Tablet 1 Tab PO HS PRN Prilosec Otc (Omeprazole Magnesium) 20 Mg Tablet.dr 20 Mg PO DAILY Vitals/I & O Vital Sign - Last 24 Hours 08/12/18 08/12/18 08/12/18 08/12/18 15:23 17:04 19:00 20:00 Temp 97.6 97.6 97.6 97.6 Pulse 90 93 Resp 20 18 B/P (MAP) 113/48 (69) 90/44 (59) Pulse Ox 100 91 O2 Delivery 2L Nasal Cannula Nasal Cannula O2 Flow Rate 2.0 08/12/18 08/12/18 08/12/18 08/13/18 21:04 22:04 23:00 02:52 Temp 97.7 98.0 97.7 98.0 Pulse 92 92 Resp 20 20 19 18 B/P (MAP) 109/50 (69) 126/83 (97) Pulse Ox 91 99 O2 Delivery Nasal Cannula Nasal Cannula Nasal Cannula O2 Flow Rate 2.0 2.0 08/13/18 08/13/18 08/13/18 08/13/18 07:00 08:00 08:35 08:38 Temp 98.0 98.0 Pulse 83 83 Resp 18 B/P (MAP) 119/51 (73) 119/51 Pulse Ox 99 O2 Delivery Nasal Cannula Nasal Cannula Nasal Cannula O2 Flow Rate 2.0 2.0 08/13/18 09:35 O2 Delivery Nasal Cannula Intake and Output 08/12/18 08/12/18 08/13/18 15:00 23:00 07:00 Intake Total 120 ml 350 ml Output Total 200 ml Balance 120 ml 150 ml ENRIQUE ALCALA MD Aug 13, 2018 11:54
[2018-08-13 15:00] VITALS: BP 116/63
[2018-08-13 19:00] VITALS: BP 97/44
[2018-08-13] MEDS: DOCUSATE SODIUM 100 MG CAPSULE. PO SCH (20:44)
[2018-08-13] MEDS: LATANOPROST 0.005% OPHTH SOLUTION 2.5ML BOTTLE. OU SCH (20:44)
[2018-08-13] MEDS ORDERED: INSULIN GLARGINE 300 UNITS/3 ML INSULN.PEN. SQ SCH (21:00)
[2018-08-13] MEDS ORDERED: ALPRAZolam 0.5 MG TABLET PO SCH (21:00)
[2018-08-13 23:00] VITALS: BP 109/45
[2018-08-14 03:00] VITALS: BP 106/63
[2018-08-14 07:00] VITALS: BP 111/64
[2018-08-14] MEDS: PANTOPRAZOLE 40 MG TABLET.DR. PO SCH (07:55)
[2018-08-14] MEDS ORDERED: INSU100I11 SQ (07:56)
[2018-08-14] MEDS ORDERED: ALPR0.5T6 PO (07:56)
[2018-08-14] MEDS ORDERED: HALO2TAB PO (07:56)
[2018-08-14] MEDS ORDERED: INSU100I13 SQ (07:56)
--- NOTE | 2018-08-14 07:59 | DISCH ---
DISCHARGE DISCHARGE INFORMATION: FINAL DIAGNOSIS Problems Medical Problems: (1) Acute hyperkalemia Status: Acute (2) ESRD (end stage renal disease) on dialysis Status: Acute CONDITION ON DISCHARGE: Stable CODE STATUS: Code Status: Full RETIREMENT: SNF STAY <30 DAYS: Yes HOSPICE: HOSPICE: No HOSPICE EVAL & TREAT: No LTAC: ADMIT TO LTAC: No POST DISCHARGE ORDERS: ACTIVITY ORDERS: Activity as tolerated WEIGHT BEARING STATUS: As tolerated DIET AFTER DISCHARGE: Renal WOUND/INCISION CARE: Keep wound/cast CDI CHECKS AFTER DISCHARGE: CHECKS AFTER DISCHARGE: Check blood press - daily TREATMENT/EQUIPMENT ORDERS: ADAPTIVE EQUIPMENT NEEDED: None Physical Therapy For: Evalulation/Treatment Occupational Therapy For: Evaluation/Treatment DISCHARGE MEDICATIONS: Home Meds Active Scripts Insulin Lispro (HUMALOG) 100 Unit/1 Ml Insuln.pen, 10 UNITS SQ TIDWMEALS for 30 Days, EACH Prov:ENRIQUE ALCALA MD 08/14/18 Haloperidol (HALOPERIDOL) 2 Mg Tablet, 0.5 TAB PO Q12HR, #60 TAB Prov:ENRIQUE ALCALA MD 08/14/18 Insulin Glargine,Hum.rec.anlog (LANTUS SOLOSTAR) 100 Unit/1 Ml Insuln.pen, 24 UNIT SQ QHS for 30 Days, #15 ML 3 Refills Prov:ENRIQUE ALCALA MD 08/14/18 Alprazolam (ALPRAZOLAM) 0.5 Mg Tablet, 1 TAB PO HS PRN for ANXIETY / AGITATION, #30 TAB Prov:ENRIQUE ALCALA MD 08/14/18 Reported Medications Tamsulosin Hcl (TAMSULOSIN HCL) 0.4 Mg Cap.er.24h, 0.8 MG PO DAILY, TAB 08/11/18 Spironolactone (SPIRONOLACTONE) 25 Mg Tablet, 1 TAB PO DAILY, #90 TAB 1 Refill 08/11/18 Sennosides (SENOKOT) 8.6 Mg Tablet, 1 TAB PO BID, #40 TAB 08/11/18 Ropinirole Hcl (REQUIP) 1 Mg Tablet, 1 TAB PO QHS, #30 TAB 2 Refills 08/11/18 Pregabalin (LYRICA) 75 Mg Capsule, 1 CAP PO BID, #60 CAP 1 Refill 08/11/18 Pancreat/Bet Hcl/Pep/Brom/Pap (SUPER ENZYME CAPS) 1 Each Capsule, 4 CAP PO QID, CAP 08/11/18 Magnesium Oxide (MAGNESIUM OXIDE) 400 Mg Tablet, 1 TAB PO DAILY, #30 TAB 5 Refills 08/11/18 Gemfibrozil (GEMFIBROZIL) 600 Mg Tablet, 1 TAB PO BIDWMEALS, #60 TAB 5 Refills 08/11/18 Folic Acid (FOLIC ACID) 1 Mg Tablet, 1 TAB PO DAILY, #90 TAB 1 Refill 08/11/18 [place]-3 Fatty Acids/Fish Oil (FISH OIL 1,000 MG CAPSULE) 1 Each Capsule, 2000 EACH PO BID, CAP 08/11/18 Cyclobenzaprine Hcl (CYCLOBENZAPRINE HCL) 10 Mg Tablet, 1 TAB PO BID, #90 TAB 08/11/18 Lipase/Protease/Amylase (CREON DR 6,000 UNITS CAPSULE) 1 Each Capsule.dr, 1 EACH PO QID, CAP 08/11/18 Cholecalciferol (Vitamin D3) (VITAMIN D3) 1,000 Unit Tablet, 3 TAB PO DAILY, # 30 TAB 5 Refills 08/11/18 Aspirin (ASPIRIN EC) 81 Mg Tablet.dr, 1 TAB PO DAILY, #30 TAB 3 Refills 08/11/18 Acetaminophen (ACETAMINOPHEN) 500 Mg Tablet, 1000 MG PO PRN DAILY PRN for PAIN, TAB 08/11/18 Midodrine Hcl (MIDODRINE HCL) 5 Mg Tablet, 5 MG PO 3X/WEEK for 30-60 min prior to dialysis, TAB 06/06/18 Hydroxyzine Hcl (HYDROXYZINE HCL) 25 Mg Tablet, 25 MG PO QID, TAB 06/06/18 Calcium Acetate (CALCIUM ACETATE) 667 Mg Tablet, 2 CAP PO BIDAC for DIALYSIS PATIENTS, CAP 06/06/18 Cholestyramine/Aspartame (PREVALITE PACKET) 4 Gm Powd.pack, 4 GM PO BID, PKT 06/06/18 Metoprolol Succinate (TOPROL XL) 25 Mg Tab.er.24h, 1 TAB PO DAILY, #30 TAB 5 Refills 06/06/18 Furosemide (FUROSEMIDE) 40 Mg Tablet, 2 TAB PO DAILY, #30 TAB 5 Refills 06/06/18 Diltiazem Hcl (DILTIAZEM 24HR CD) 120 Mg Cap.er.24h, 1 CAP PO DAILY, #90 CAP 1 Refill 06/06/18 Oxycodone/Apap 5-325 (PERCOCET 5-325 MG TABLET) 1 Each Tablet, 1 TAB PO QID, # 120 TAB 06/06/17 Insulin Lispro (HUMALOG) 100 Unit/1 Ml Cartridge, 8 UNIT SQ TIDAC, EACH 06/06/17 Omeprazole Magnesium (PRILOSEC OTC) 20 Mg Tablet., 20 MG PO DAILY, TAB 11/20/14 ENRIQUE ALCALA MD Aug 14, 2018 07:59
[2018-08-14] MEDS: CALCIUM ACETATE 667 MG CAPSULE PO SCH ×2 (08:00→11:46)
[2018-08-14] MEDS: INSULIN LISPRO 300 UNITS/3 ML INSULN.PEN. SQ SCH ×4 (08:54→11:50)
[2018-08-14] MEDS: DORZOLAMIDE 2% OPHTH SOLUTION 10ML BOTTLE. OU SCH (08:55)
[2018-08-14] MEDS: TIMOLOL 0.25% OPHTH SOLUTION 5ML BOTTLE. OU SCH (08:55)
[2018-08-14] MEDS: DOCUSATE SODIUM 100 MG CAPSULE. PO SCH (08:58)
[2018-08-14] MEDS: MONTELUKAST SODIUM 10 MG TABLET. PO SCH (08:58)
[2018-08-14] MEDS: HALOPERIDOL 0.5 MG TABLET. PO SCH (08:58)
[2018-08-14] MEDS: METOPROLOL SUCC 24HR ER 25 MG TAB.ER.24H. PO SCH (08:59)
[2018-08-14] MEDS: FUROSEMIDE 80 MG TABLET. PO SCH (08:59)
[2018-08-14] MEDS: hydrOXYzine PAMOATE 25 MG CAPSULE PO SCH ×2 (08:59→12:52)
[2018-08-14] MEDS: oxyCODONE/APAP 5/325 1 TAB TABLET PO SCH ×2 (09:03→12:52)
[2018-08-14] MEDS: CHOLESTYRAMINE/ASPARTAME 4 GM PACKET PO SCH (09:06)
[2018-08-14] MEDS: silver sulfADIAZINE 1% CREAM 25GM TUBE. TP SCH (09:07)
--- NOTE | 2018-08-14 09:20 | PDOC2 ---
CONSULT Date of Consult Date of Consult DATE: 08/14/18 TIME: 09:10 Reason for consultation: Thrombocytopenia (with pancytopenia) Consult: Hematology oncology, Dr. Farhad Burciaga History of present illness: He is an 82-year-old male with increased confusion, cough, and hypokalemia requiring dialysis, who has had mild cytopenias of the white blood cells and red blood cells and the platelets dating back to 2013, w/ platelet count of 88,000, hemoglobin of 12 and white count of 4.8 on admit, with end-stage renal disease on dialysis. He believes he is on Coumadin at home for atrial fibrillation but has not been on it here, denies bleeding but does have quite a bit of skin bruising, regarding his thrombocytopenia, it has been chronic, ongoing since 2014, associated with bruising, but he denies bleeding, worsened over time, and moderate to currently 77,000. Past medical history: UTIs Pneumonia End-stage renal disease on dialysis Tuesday Anemia of chronic renal failure Hypertension Hyperlipidemia Atrial fibrillation Failure to thrive Hyperkalemia prompting recent admission Metabolic encephalopathy at baseline Diabetes mellitus 2 Osteoarthritis Anxiety and depression Dementia Hyperparathyroidism GERD Peptic ulcer disease Past surgical history: Coronary artery bypass graft Allergies: Morphine, Bactrim, statins, gabapentin Medications: See attached list Social history: He tells me he lives at home with his , notes report he came from a shelter unit, denies any current alcohol but did drink heavy in the past, likely 40 years ago, no current tobacco Review of systems: Recent cough, confusion, skin bruising, no recent infections , no dysuria, no fevers though temperature slightly low here, otherwise 10 point review of systems negative Physical exam: Vitals reviewed, temperature as low as 95 9 Gen.: Elderly male eating breakfast, sitting in chair in no acute distress HEENT: mucous membranes moist, head normocephalic atraumatic Neck: Supple, no lymphadenopathy Lymph nodes: No palpable lymphadenopathy neck or axilla Lungs: Breathing comfortably on room air, no evidence of respiratory distress Abdomen: Soft, nontender Extremities: No cyanosis, trace edema bilaterally with compression stockings on Skin: Multiple bruises, warm Neuro: Alert and oriented unable to answer many questions Psych: Pleasant but slightly confused Lab reviewed: Platelets between 53 and 132,000 since 2014, normal prior Hemoglobin between 7 and 14 dating back to October 2014 White blood cells of 3.3 or higher dating back to December 2016 MCV 112 Potassium down to 4.3 from 5.7 Creatinine 5.2 T bili 1.4 Alkaline phosphatase 255 PTT 36 INR 1.4 on admit Blood cultures negative from 11 August White count 4.8 with hemoglobin 12.1 and platelets of 88 on admit Rads reviewed: 11 August chest x-ray with stable mild pulmonary edema and stable left lower lobe atelectasis/infiltrate/effusion [address] with nonspecific white matter changes and atrophy Case discussed with: Patient, records reviewed in [employer] and [employer], please see note for summary details. Assessment and Plan: He is an 82-year-old male with mild pancytopenia, macrocytosis, suspect possible MDS, will assess with further labs, with low threshold to consider bone marrow biopsy. Pancytopenia: Check B12 methylmalonic acid, unable to check folate while inpatient, check TSH, SPEP, smear for review, reticulocyte count, ferritin and iron panel and hepatitis panel, Consider bone marrow biopsy based on lab results DVT prophylaxis: Has compression stockings, recommend SCDs while in bed A. fib: Could be on anticoagulation as long as platelet count remains greater than 50,000, defer to others Thank you kindly for this consultation, and please do not hesitate to call with further questions. Past Medical History Cardiovascular: AFIB, CAD, HTN, Hyperlipidemia Pulmonary: Pneumonia, Other CENTRAL NERVOUS SYSTEM: Dementia GI: GERD, Peptic Ulcer disease Heme/Onc: Anemia NOS Hepatobiliary: No pertinent hx Psych: Anxiety, Depression Musculoskeletal: Osteoarthritis Rheumatologic: Other Infectious disease: No pertinent hx Renal/: Chronic renal failure Endocrine: Diabetes, Hyperparathyroidism Past Surgical History Past Surgical History: CABG, Other Family History Family History: No Significant, Heart Disease, Family History Unknown Social History No ALCOHOL: none Drugs: None Lives: with Family Domestic Violence: Neg Current Problem List Problem List Problems Medical Problems: (1) Acute hyperkalemia Status: Acute (2) ESRD (end stage renal disease) on dialysis Status: Acute Current Medications Current Medications Current Medications Insulin Human Regular (HumuLIN R VIAL) 10 unit 1X ONCE IV Last administered on 08/11/18at 15:45; Start 08/11/18 at 15:30; Stop 08/11/18 at 15:31; Status DC Sodium Bicarbonate (Sodium Bicarb Adult 8.4% Syr) 50 meq 1X ONCE IV Last administered on 08/11/18at 15:40; Start 08/11/18 at 15:30; Stop 08/11/18 at 15:31 ; Status DC Albuterol Sulfate (Ventolin Neb Soln) 10 mg 1X ONCE NEB Last administered on at 15:41; Start 08/11/18 at 15:30; Stop 08/11/18 at 15:31; Status DC Albuterol Sulfate (Ventolin Neb Soln) 2.5 mg STK-MED ONCE .ROUTE ; Start at 15:25; Stop 08/11/18 at 15:26; Status DC Calcium Chloride (Calcium Chloride) 1,000 mg 1X ONCE IV Last administered on at 15:38; Start 08/11/18 at 15:30; Stop 08/11/18 at 15:31; Status DC Sodium Chloride 500 ml @ 500 mls/hr 1X ONCE IV Last administered on at 15:39; Start 08/11/18 at 15:30; Stop 08/11/18 at 16:30; Status DC Alprazolam (Xanax) 0.5 mg TID PO Last administered on 08/12/18at 21:03; Start at 21:00; Stop 08/13/18 at 17:50; Status DC Cholestyramine Resin (Questran Light) 4 gm BID@1000,2200 PO Last administered on 08/14/18at 09:06; Start 08/11/18 at 22:00 Clopidogrel Bisulfate (Plavix) 75 mg DAILYWSUP PO ; Start 08/11/18 at 17:00; Stop 08/12/18 at 17:07; Status DC Diltiazem HCl (Cardizem 24hr Cd) 120 mg DAILY PO Last administered on at 09:07; Start 08/12/18 at 09:00 Furosemide (Lasix) 80 mg DAILY PO Last administered on 08/14/18at 08:59; Start 08/12/18 at 09:00 Haloperidol (Haldol) 0.5 mg BID PO Last administered on 08/14/18at 08:58; Start 08/11/18 at 21:00 Insulin Glargine (Lantus) 24 units QHS SQ Last administered on 08/12/18at 21:21 ; Start 08/11/18 at 21:00; Stop 08/13/18 at 08:57; Status DC Metoprolol Succinate (Toprol Xl) 25 mg DAILY PO Last administered on 08/14/18at 08:59; Start 08/12/18 at 09:00 Oxycodone/ Acetaminophen (Percocet 5/325) 1 tab QID PO Last administered on at 09:03; Start 08/11/18 at 17:00 Silver Sulfadiazine (Silvadene) 1 ramon BID TP Last administered on 08/14/18at 09: 07; Start 08/11/18 at 21:00 Calcium Acetate (Phoslo) 1,334 mg TIDWMEALS PO Last administered on 08/14/18at 08:00; Start 08/11/18 at 17:00 Dorzolamide HCl (Trusopt) 1 drop BID OU Last administered on 08/14/18at 08:55; Start 08/11/18 at 21:00 Hydroxyzine Pamoate (Vistaril) 25 mg QID PO Last administered on 08/14/18at 08: 59; Start 08/11/18 at 17:00 Insulin Human Lispro (HumaLOG) 8 units TIDWMEALS SQ Last administered on at 08:53; Start 08/11/18 at 17:00; Stop 08/13/18 at 08:57; Status DC Latanoprost (Xalatan) 1 drop QHS OU Last administered on 08/13/18at 20:44; Start 08/11/18 at 21:00 Midodrine (Proamatine) 5 mg QTUTHSA PO ; Start 08/12/18 at 16:00 Montelukast Sodium (Singulair) 10 mg DAILY PO Last administered on 08/14/18at 08 :58; Start 08/12/18 at 09:00 Pantoprazole Sodium (Protonix) 40 mg DAILYAC PO Last administered on 08/14/18at 07:55; Start 08/12/18 at 07:30 Acetaminophen (Tylenol) 500 mg PRN Q6HRS PRN PO MILD PAIN / TEMP; Start at 16:30 Tramadol HCl (Ultram) 50 mg PRN Q6HRS PRN PO MODERATE PAIN; Start 08/11/18 at 16:30 Ondansetron HCl (Zofran) 4 mg PRN Q6HRS PRN IV NAUSEA/VOMITING; Start 08/11/18 at 16:30 Ondansetron HCl (Zofran Odt) 4 mg PRN Q6HRS PRN PO NAUSEA/VOMITING; Start 08/11 at 16:30 Insulin Human Lispro (HumaLOG) 0-7 UNITS TIDWMEALS SQ Last administered on 08/13at 08:53; Start 08/11/18 at 17:00; Stop 08/13/18 at 08:57; Status DC Dextrose (Dextrose 50%-Water Syringe) 12.5 gm PRN Q15MIN PRN IV SEE COMMENTS; Start 08/11/18 at 16:30; Stop 08/13/18 at 09:04; Status DC Timolol Maleate (Timoptic 0.25% [facility]) 1 drop BID OU Last administered on at 08:55; Start 08/11/18 at 21:00 Sodium Chloride 1,000 ml @ 1,000 mls/hr Q1H PRN IV hypotension; Start 08/12/18 at 12:10; Stop 08/12/18 at 18:09; Status DC Diphenhydramine HCl (Benadryl) 25 mg 1X PRN PRN IV ITCHING; Start 08/12/18 at 12:15; Stop 08/13/18 at 12:14; Status DC Diphenhydramine HCl (Benadryl) 25 mg 1X PRN PRN IV ITCHING; Start 08/12/18 at 12:15; Stop 08/13/18 at 12:14; Status DC Sodium Chloride 1,000 ml @ 400 mls/hr Q2H30M PRN IV PATENCY; Start 08/12/18 at 12:10; Stop 08/13/18 at 00:09; Status DC Info (PHARMACY MONITORING -- do not chart) 1 each PRN DAILY PRN MC SEE COMMENTS ; Start 08/12/18 at 12:15 Insulin Glargine (Lantus) 30 units QHS SQ Last administered on 08/13/18at 20:53 ; Start 08/13/18 at 21:00 Insulin Human Lispro (HumaLOG) 10 units TIDWMEALS SQ Last administered on at 08:54; Start 08/13/18 at 12:00 Insulin Human Lispro (HumaLOG) 0-9 UNITS TIDWMEALS SQ Last administered on 08/14at 08:55; Start 08/13/18 at 09:30 Dextrose (Dextrose 50%-Water Syringe) 12.5 gm PRN Q15MIN PRN IV SEE COMMENTS; Start 08/13/18 at 09:00 Docusate Sodium (Colace) 100 mg BID PO Last administered on 08/14/18at 08:58; Start 08/13/18 at 21:00 Alprazolam (Xanax) 0.5 mg HS PO Last administered on 08/13/18at 20:44; Start at 21:00 Active Scripts Active Humalog (Insulin Lispro) 100 Unit/1 Ml Insuln.pen 10 Units SQ TIDWMEALS 30 Days Haloperidol 2 Mg Tablet 0.5 Tab PO Q12HR Lantus Solostar (Insulin Glargine,Hum.rec.anlog) 100 Unit/1 Ml Insuln.pen 24 Unit SQ QHS 30 Days Alprazolam 0.5 Mg Tablet 1 Tab PO HS PRN Reported Tamsulosin Hcl 0.4 Mg Cap.er.24h 0.8 Mg PO DAILY Spironolactone 25 Mg Tablet 1 Tab PO DAILY Senokot (Sennosides) 8.6 Mg Tablet 1 Tab PO BID Requip (Ropinirole Hcl) 1 Mg Tablet 1 Tab PO QHS Lyrica (Pregabalin) 75 Mg Capsule 1 Cap PO BID Super Enzyme Caps (Pancreat/Bet Hcl/Pep/Brom/Pap) 1 Each Capsule 4 Cap PO QID Magnesium Oxide 400 Mg Tablet 1 Tab PO DAILY Gemfibrozil 600 Mg Tablet 1 Tab PO BIDWMEALS Folic Acid 1 Mg Tablet 1 Tab PO DAILY Fish Oil 1,000 Mg Capsule ([place]-3 Fatty Acids/Fish Oil) 1 Each Capsule 2,000 Each PO BID Cyclobenzaprine Hcl 10 Mg Tablet 1 Tab PO BID Irina Elias 6,000 Units Capsule (Lipase/Protease/Amylase) 1 Each Capsule. 1 Each PO QID Vitamin D3 (Cholecalciferol (Vitamin D3)) 1,000 Unit Tablet 3 Tab PO DAILY Aspirin Ec (Aspirin) 81 Mg Tablet.dr 1 Tab PO DAILY Acetaminophen 500 Mg Tablet 1,000 Mg PO PRN DAILY PRN Midodrine Hcl 5 Mg Tablet 5 Mg PO 3X/WEEK Hydroxyzine Hcl 25 Mg Tablet 25 Mg PO QID Calcium Acetate 667 Mg Tablet 2 Cap PO BIDAC Prevalite Packet (Cholestyramine/Aspartame) 4 Gm Powd.pack 4 Gm PO BID Toprol Xl (Metoprolol Succinate) 25 Mg Tab.er.24h 1 Tab PO DAILY Furosemide 40 Mg Tablet 2 Tab PO DAILY Diltiazem 24HR Cd (Diltiazem Hcl) 120 Mg Cap.er.24h 1 Cap PO DAILY Percocet 5-325 Mg Tablet (Oxycodone/Acetaminophen) 1 Each Tablet 1 Tab PO QID Humalog (Insulin Lispro) 100 Unit/1 Ml Cartridge 8 Unit SQ TIDAC Prilosec Otc (Omeprazole Magnesium) 20 Mg Tablet.dr 20 Mg PO DAILY Allergies Allergies: Coded Allergies: Xxhocpn-Jgg-Ocl Reductase Inhibitor (Verified Allergy, Severe, Brain swelling. , 02/22/18) Pt was taking Gabapentin with a Statin and per . "It almost killed him." gabapentin (Verified Allergy, Severe, Brain swelling, 02/22/18) Per pt had Gabapentin with a Statin and it caused brain swelling, "almost killed him." sulfamethoxazole (Verified Allergy, Intermediate, 02/22/18) trimethoprim (Verified Allergy, Intermediate, 02/22/18) morphine (Verified Adverse Reaction, Severe, 02/22/18) Vitals VITALS Vital Signs Date Time Temp Pulse Resp B/P (MAP) Pulse Ox O2 Delivery O2 Flow Rate FiO2 08/14/18 09:07 103 111/64 08/14/18 09:03 18 08/14/18 07:00 98.0 96 2l 98.0 08/14/18 03:00 2.0 Labs Labs Laboratory Tests Test 08/12/18 10:47 08/12/18 15:16 08/12/18 16:44 08/12/18 20:59 Glucose (Fingerstick) 186 mg/dL (70-99) 113 mg/dL (70-99) 153 mg/dL (70-99) 369 mg/dL (70-99) Test 08/13/18 05:43 08/13/18 07:27 08/13/18 11:45 08/13/18 16:50 Sodium Level 134 mmol/L (136-145) Potassium Level 4.3 mmol/L (3.5-5.1) Chloride Level 96 mmol/L (98-107) Carbon Dioxide Level 32 mmol/L (21-32) Anion Gap 6 (6-14) Blood Urea Nitrogen 34 mg/dL (8-26) Creatinine 5.2 mg/dL (0.7-1.3) Estimated GFR (Cockcroft-Gault) 10.7 Glucose Level 229 mg/dL (70-99) Calcium Level 8.9 mg/dL (8.5-10.1) Phosphorus Level 3.4 mg/dL (2.6-4.7) Albumin 2.8 g/dL (3.4-5.0) Glucose (Fingerstick) 230 mg/dL (70-99) 138 mg/dL (70-99) 61 mg/dL (70-99) Test 08/13/18 20:06 08/14/18 07:22 Glucose (Fingerstick) 194 mg/dL (70-99) 198 mg/dL (70-99) Laboratory Tests Test 08/13/18 11:45 08/13/18 16:50 08/13/18 20:06 08/14/18 07:22 Glucose (Fingerstick) 138 mg/dL (70-99) 61 mg/dL (70-99) 194 mg/dL (70-99) 198 mg/dL (70-99) FARHAD BURCIAGA MD Aug 14, 2018 09:20
[2018-08-14 09:32] LABS: CALCIUM 9.2 mg/dL (8.5-10.1); CREATININE 6.8 mg/dL (0.7-1.3); GFR 7.8; POTASSIUM 4.9 mmol/L (3.5-5.1)
--- NOTE | 2018-08-14 09:58 | PDOC3 ---
Discharge Summary Visit Information Date of Admission: Aug 11, 2018 Date of Discharge: Aug 14, 2018 Admitting Diagnosis Comment: ESRD on dialysis Anemia of ESRD Hypertension Failure to thrive symptoms Generalized weakness Previous SNU resident Cough atelectasis on chest x-ray Hyperkalemia in a dialysis patient-did not miss dialysis Metabolic encephalopathy POA, transient, resolved seemed to be at baseline Elevated lactate SIRS POA with target organ damage -hypotension, transient Final Diagnosis Problems Medical Problems: (1) Acute hyperkalemia Status: Acute (2) ESRD (end stage renal disease) on dialysis Status: Acute Brief Hospital Course Allergies Allergies Coded Allergies Type Severity Reaction Last Updated Verified Wnybkhv-Brf-Jqt Reductase Inhibitor Allergy Severe Brain swelling. 02/22/18 Yes gabapentin Allergy Severe Brain swelling 02/22/18 Yes sulfamethoxazole Allergy Intermediate 02/22/18 Yes trimethoprim Allergy Intermediate 02/22/18 Yes morphine Adverse Reaction Severe 02/22/18 Yes Vital Signs Vital Signs Date Time Temp Pulse Resp B/P (MAP) Pulse Ox O2 Delivery O2 Flow Rate FiO2 08/14/18 09:07 103 111/64 08/14/18 09:03 18 08/14/18 07:00 98.0 96 2l 98.0 08/14/18 03:00 2.0 Lab Results Laboratory Tests Test 08/12/18 10:47 08/12/18 15:16 08/12/18 16:44 08/12/18 20:59 Glucose (Fingerstick) 186 mg/dL (70-99) 113 mg/dL (70-99) 153 mg/dL (70-99) 369 mg/dL (70-99) Test 08/13/18 05:43 08/13/18 07:27 08/13/18 11:45 08/13/18 16:50 Sodium Level 134 mmol/L (136-145) Potassium Level 4.3 mmol/L (3.5-5.1) Chloride Level 96 mmol/L (98-107) Carbon Dioxide Level 32 mmol/L (21-32) Anion Gap 6 (6-14) Blood Urea Nitrogen 34 mg/dL (8-26) Creatinine 5.2 mg/dL (0.7-1.3) Estimated GFR (Cockcroft-Gault) 10.7 Glucose Level 229 mg/dL (70-99) Calcium Level 8.9 mg/dL (8.5-10.1) Phosphorus Level 3.4 mg/dL (2.6-4.7) Albumin 2.8 g/dL (3.4-5.0) Glucose (Fingerstick) 230 mg/dL (70-99) 138 mg/dL (70-99) 61 mg/dL (70-99) Test 08/13/18 20:06 08/14/18 07:22 08/14/18 08:10 Glucose (Fingerstick) 194 mg/dL (70-99) 198 mg/dL (70-99) Reticulocyte Count (auto) 2.5 % (0.5-2.5) Sodium Level 132 mmol/L (136-145) Potassium Level 4.9 mmol/L (3.5-5.1) Chloride Level 95 mmol/L (98-107) Carbon Dioxide Level 27 mmol/L (21-32) Anion Gap 10 (6-14) Blood Urea Nitrogen 51 mg/dL (8-26) Creatinine 6.8 mg/dL (0.7-1.3) Estimated GFR (Cockcroft-Gault) 7.8 Glucose Level 200 mg/dL (70-99) Calcium Level 9.2 mg/dL (8.5-10.1) Laboratory Tests Test 08/13/18 11:45 08/13/18 16:50 08/13/18 20:06 08/14/18 07:22 Glucose (Fingerstick) 138 mg/dL (70-99) 61 mg/dL (70-99) 194 mg/dL (70-99) 198 mg/dL (70-99) Test 08/14/18 08:10 Reticulocyte Count (auto) 2.5 % (0.5-2.5) Sodium Level 132 mmol/L (136-145) Potassium Level 4.9 mmol/L (3.5-5.1) Chloride Level 95 mmol/L (98-107) Carbon Dioxide Level 27 mmol/L (21-32) Anion Gap 10 (6-14) Blood Urea Nitrogen 51 mg/dL (8-26) Creatinine 6.8 mg/dL (0.7-1.3) Estimated GFR (Cockcroft-Gault) 7.8 Glucose Level 200 mg/dL (70-99) Calcium Level 9.2 mg/dL (8.5-10.1) Brief Hospital Course Mr. Morse is a 82 old male who lives at home with [facility], comes in because of hyperkalemia and failure to thrive symptoms. But admitted because of some pancytopenia which was rather mild. I did not change any medications, he underwent dialysis per renal days. and patient refuses SNU though recommended by PT. They have home health and would rather do that. Heme onc CONSULTed for the pancytopenia and ordered some SPEP, etc. lab studies. Pending on that can consider bone marrow aspiration biopsy. But judging from my interaction with them they might most like he might not go with this. In any case can follow-up as outpatient with heme onc regarding the results. They plan to remain conservative rather. I did discuss CODE STATUS, he would not like to be kept on the ventilator for long before now full code but if there is no chance of meaningful recovery or recovery he would be a DNR/DNI Consults performed renal Heme onc Procedures performed dialysis Time spent discharging. 30 mins. 50% discharge education counseling, patient seen and examined, discussed with RN and aide, discussed with signif tme Discharge Information Condition at Discharge: Improved, Stable Disposition/Orders: D/C to Home w/ HH Scheduled Aspirin (Aspirin Ec) 81 Mg Tablet.dr, 1 TAB PO DAILY, #30 Ref 3 (Reported) Entered as Reported by: MATIAS LIN on 08/11/181825 Last Action: New Order on 08/11/181825 by MATIAS LIN Calcium Acetate (Calcium Acetate) 667 Mg Tablet, 2 CAP PO BIDAC for DIALYSIS PATIENTS, (Reported) Entered as Reported by: LUISA GREER on 06/06/181738 Last Action: Edited on 08/11/181825 by MATIAS LIN Cholecalciferol (Vitamin D3) (Vitamin D3) 1,000 Unit Tablet, 3 TAB PO DAILY, # 30 Ref 5 (Reported) Entered as Reported by: MATIAS LIN on 08/11/181825 Last Action: New Order on 08/11/181825 by MATIAS LIN Cholestyramine/Aspartame (Prevalite Packet) 4 Gm Powd.pack, 4 GM PO BID, ( Reported) Entered as Reported by: LUISA GREER on 7/10/18 1739 Last Action: Reviewed on 08/11/181825 by MATIAS LIN Cyclobenzaprine Hcl (Cyclobenzaprine Hcl) 10 Mg Tablet, 1 TAB PO BID, #90 ( Reported) Entered as Reported by: MATIAS LIN on 08/11/181825 Last Action: New Order on 08/11/181825 by MATIAS LIN Diltiazem Hcl (Diltiazem 24HR Cd) 120 Mg Cap.er.24h, 1 CAP PO DAILY, #90 Ref 1 ( Reported) Entered as Reported by: LUISA GREER on 06/06/181738 Last Action: Reviewed on 08/11/181825 by MATIAS LIN Folic Acid (Folic Acid) 1 Mg Tablet, 1 TAB PO DAILY, #90 Ref 1 (Reported) Entered as Reported by: MATIAS LIN on 08/11/181825 Last Action: New Order on 08/11/181825 by MATIAS LIN Furosemide (Furosemide) 40 Mg Tablet, 2 TAB PO DAILY, #30 Ref 5 (Reported) Entered as Reported by: LUISA GREER on 06/06/181738 Last Action: Reviewed on 08/11/181825 by MATIAS LIN Gemfibrozil (Gemfibrozil) 600 Mg Tablet, 1 TAB PO BIDWMEALS, #60 Ref 5 (Reported ) Entered as Reported by: MATIAS LIN on 08/11/181825 Last Action: New Order on 08/11/181825 by MATIAS LIN Haloperidol (Haloperidol) 2 Mg Tablet, 0.5 TAB PO Q12HR, #60 Prescribed by: ENRIQUE ALCALA on 08/14/18755 Hydroxyzine Hcl (Hydroxyzine Hcl) 25 Mg Tablet, 25 MG PO QID, (Reported) Entered as Reported by: LUISA GREER on 06/06/181738 Last Action: Reviewed on 08/11/181825 by MATIAS LIN Insulin Glargine,Hum.rec.anlog (Lantus Solostar) 100 Unit/1 Ml Insuln.pen, 24 UNIT SQ QHS for 30 Days, #15 Ref 3 Prescribed by: ENRIQUE ALCALA on 08/14/18755 Insulin Lispro (Humalog) 100 Unit/1 Ml Cartridge, 8 UNIT SQ TIDAC, (Reported) Entered as Reported by: Hermelinda Simon RN on 06/06/172024 Last Action: Reviewed on 08/11/181825 by MATIAS LIN Insulin Lispro (Humalog) 100 Unit/1 Ml Insuln.pen, 10 UNITS SQ TIDWMEALS for 30 Days Prescribed by: ENRIQUE ALCALA on 08/14/18 0756 Lipase/Protease/Amylase (Creon Dr 6,000 Units Capsule) 1 Each Capsule.dr, 1 EACH PO QID, (Reported) Entered as Reported by: MATIAS LIN on 08/11/181825 Last Action: New Order on 08/11/181825 by MATIAS LIN Magnesium Oxide (Magnesium Oxide) 400 Mg Tablet, 1 TAB PO DAILY, #30 Ref 5 ( Reported) Entered as Reported by: MATIAS LIN on 08/11/181825 Last Action: New Order on 08/11/181825 by MATIAS LIN Metoprolol Succinate (Toprol Xl) 25 Mg Tab.er.24h, 1 TAB PO DAILY, #30 Ref 5 ( Reported) Entered as Reported by: LUISA GREER on 06/06/181738 Last Action: Reviewed on 08/11/181825 by MATIAS LIN Midodrine Hcl (Midodrine Hcl) 5 Mg Tablet, 5 MG PO 3X/WEEK for 30-60 min prior to dialysis, (Reported) Entered as Reported by: LUISA GREER on 06/06/181738 Last Action: Reviewed on 08/11/181825 by MATIAS LIN [place]-3 Fatty Acids/Fish Oil (Fish Oil 1,000 Mg Capsule) 1 Each Capsule, 2,000 EACH PO BID, (Reported) Entered as Reported by: MATIAS LIN on 08/11/181825 Last Action: New Order on 08/11/181825 by MATIAS LIN Omeprazole Magnesium (Prilosec Otc) 20 Mg Tablet., 20 MG PO DAILY, (Reported) Entered as Reported by: DYLAN ESTRADA on 11/20/14 1236 Last Action: Reviewed on 08/11/181825 by MATIAS LIN Oxycodone/Apap 5-325 (Percocet 5-325 Mg Tablet) 1 Each Tablet, 1 TAB PO QID, # 120 (Reported) Entered as Reported by: Hermelinda Simon RN on 06/06/172024 Last Action: Reviewed on 08/11/181825 by MATIAS LIN Pancreat/Bet Hcl/Pep/Brom/Pap (Super Enzyme Caps) 1 Each Capsule, 4 CAP PO QID, (Reported) Entered as Reported by: MATIAS LIN on 08/11/181825 Last Action: New Order on 08/11/181825 by MATIAS LIN Pregabalin (Lyrica) 75 Mg Capsule, 1 CAP PO BID, #60 Ref 1 (Reported) Entered as Reported by: MATIAS LIN on 08/11/181825 Last Action: New Order on 08/11/181825 by MATIAS LIN Ropinirole Hcl (Requip) 1 Mg Tablet, 1 TAB PO QHS, #30 Ref 2 (Reported) Entered as Reported by: MATIAS LIN on 08/11/181825 Last Action: New Order on 08/11/181825 by MATIAS LIN Sennosides (Senokot) 8.6 Mg Tablet, 1 TAB PO BID, #40 (Reported) Entered as Reported by: MATIAS LIN on 08/11/181825 Last Action: New Order on 08/11/181825 by MATIAS LIN Spironolactone (Spironolactone) 25 Mg Tablet, 1 TAB PO DAILY, #90 Ref 1 ( Reported) Entered as Reported by: MATIAS LIN on 08/11/181825 Last Action: New Order on 08/11/181825 by MATIAS LIN Tamsulosin Hcl (Tamsulosin Hcl) 0.4 Mg Cap.er.24h, 0.8 MG PO DAILY, (Reported) Entered as Reported by: MATIAS LIN on 08/11/181825 Last Action: New Order on 08/11/181825 by MATIAS LIN Scheduled PRN Acetaminophen (Acetaminophen) 500 Mg Tablet, 1,000 MG PO PRN DAILY PRN for PAIN, (Reported) Entered as Reported by: MATIAS LIN on 08/11/181825 Last Action: New Order on 08/11/181825 by MATIAS LIN Alprazolam (Alprazolam) 0.5 Mg Tablet, 1 TAB PO HS PRN for ANXIETY / AGITATION, #30 Prescribed by: ENRIQUE ALCALA on 08/14/18 0756 ENRIQUE ALCALA MD Aug 14, 2018 09:58
--- NOTE | 2018-08-14 09:58 | DISCH ---
DISCHARGE WITH HOME HEALTH DISCHARGE INFORMATION: Final Diagnosis: Problems Medical Problems: (1) Acute hyperkalemia Status: Acute (2) ESRD (end stage renal disease) on dialysis Status: Acute Condition on Discharge: Stable CODE STATUS: Code Status: Full HOME HEALTH: Face to Face: I certify this patient is under my care and that I, or a nurse practitioner or physician's assistant professor of radiology working with me, had a face to face encounter that meets the physician face to face encounter requirements with this patient on []. Physical Therapy For: Evalulation/Treatment Occupational Therapy For: Evaluation/Treatment Home Health Aide For: Self-care POST DISCHARGE ORDERS: Activity Instructions for Disc: Activity as tolerated Weight Bearing Status after Di: As tolerated DIET AFTER DISCHARGE: Renal Wound/Incision Care: Keep wound/cast CDI CHECKS AFTER DISCHARGE: Checks after discharge: Check blood press - daily TREATMENT/EQUIPMENT ORDERS: Adaptive Equipment Issued: None CERTIFICATION STATEMENT: Certification Statement: Certification Statement: Based on the above finding, I certify that this patient is confined to the home and needs intermittent usp care, physical therapy and/or speech therapy, or continues to need occupational therapy.~ This patient is under my care, and I have initiated the establishment of the plan of care.~ This patient will be followed by myself or a community physician who will periodically review the plan of care. Home Meds Active Scripts Insulin Lispro (HUMALOG) 100 Unit/1 Ml Insuln.pen, 10 UNITS SQ TIDWMEALS for 30 Days, EACH Prov:ENRIQUE ALCALA MD 08/14/18 Haloperidol (HALOPERIDOL) 2 Mg Tablet, 0.5 TAB PO Q12HR, #60 TAB Prov:ENRIQUE ALCALA MD 08/14/18 Insulin Glargine,Hum.rec.anlog (LANTUS SOLOSTAR) 100 Unit/1 Ml Insuln.pen, 24 UNIT SQ QHS for 30 Days, #15 ML 3 Refills Prov:ENRIQUE ALCALA MD 08/14/18 Alprazolam (ALPRAZOLAM) 0.5 Mg Tablet, 1 TAB PO HS PRN for ANXIETY / AGITATION, #30 TAB Prov:ENRIQUE ALCALA MD 08/14/18 Reported Medications Tamsulosin Hcl (TAMSULOSIN HCL) 0.4 Mg Cap.er.24h, 0.8 MG PO DAILY, TAB 08/11/18 Spironolactone (SPIRONOLACTONE) 25 Mg Tablet, 1 TAB PO DAILY, #90 TAB 1 Refill 08/11/18 Sennosides (SENOKOT) 8.6 Mg Tablet, 1 TAB PO BID, #40 TAB 08/11/18 Ropinirole Hcl (REQUIP) 1 Mg Tablet, 1 TAB PO QHS, #30 TAB 2 Refills 08/11/18 Pregabalin (LYRICA) 75 Mg Capsule, 1 CAP PO BID, #60 CAP 1 Refill 08/11/18 Pancreat/Bet Hcl/Pep/Brom/Pap (SUPER ENZYME CAPS) 1 Each Capsule, 4 CAP PO QID, CAP 08/11/18 Magnesium Oxide (MAGNESIUM OXIDE) 400 Mg Tablet, 1 TAB PO DAILY, #30 TAB 5 Refills 08/11/18 Gemfibrozil (GEMFIBROZIL) 600 Mg Tablet, 1 TAB PO BIDWMEALS, #60 TAB 5 Refills 08/11/18 Folic Acid (FOLIC ACID) 1 Mg Tablet, 1 TAB PO DAILY, #90 TAB 1 Refill 08/11/18 [place]-3 Fatty Acids/Fish Oil (FISH OIL 1,000 MG CAPSULE) 1 Each Capsule, 2000 EACH PO BID, CAP 08/11/18 Cyclobenzaprine Hcl (CYCLOBENZAPRINE HCL) 10 Mg Tablet, 1 TAB PO BID, #90 TAB 08/11/18 Lipase/Protease/Amylase (CREON DR 6,000 UNITS CAPSULE) 1 Each Capsule.dr, 1 EACH PO QID, CAP 08/11/18 Cholecalciferol (Vitamin D3) (VITAMIN D3) 1,000 Unit Tablet, 3 TAB PO DAILY, # 30 TAB 5 Refills 08/11/18 Aspirin (ASPIRIN EC) 81 Mg Tablet.dr, 1 TAB PO DAILY, #30 TAB 3 Refills 08/11/18 Acetaminophen (ACETAMINOPHEN) 500 Mg Tablet, 1000 MG PO PRN DAILY PRN for PAIN, TAB 08/11/18 Midodrine Hcl (MIDODRINE HCL) 5 Mg Tablet, 5 MG PO 3X/WEEK for 30-60 min prior to dialysis, TAB 06/06/18 Hydroxyzine Hcl (HYDROXYZINE HCL) 25 Mg Tablet, 25 MG PO QID, TAB 06/06/18 Calcium Acetate (CALCIUM ACETATE) 667 Mg Tablet, 2 CAP PO BIDAC for DIALYSIS PATIENTS, CAP 06/06/18 Cholestyramine/Aspartame (PREVALITE PACKET) 4 Gm Powd.pack, 4 GM PO BID, PKT 06/06/18 Metoprolol Succinate (TOPROL XL) 25 Mg Tab.er.24h, 1 TAB PO DAILY, #30 TAB 5 Refills 06/06/18 Furosemide (FUROSEMIDE) 40 Mg Tablet, 2 TAB PO DAILY, #30 TAB 5 Refills 06/06/18 Diltiazem Hcl (DILTIAZEM 24HR CD) 120 Mg Cap.er.24h, 1 CAP PO DAILY, #90 CAP 1 Refill 06/06/18 Oxycodone/Apap 5-325 (PERCOCET 5-325 MG TABLET) 1 Each Tablet, 1 TAB PO QID, # 120 TAB 06/06/17 Insulin Lispro (HUMALOG) 100 Unit/1 Ml Cartridge, 8 UNIT SQ TIDAC, EACH 06/06/17 Omeprazole Magnesium (PRILOSEC OTC) 20 Mg Tablet., 20 MG PO DAILY, TAB 11/20/14 ENRIQUE ALCALA MD Aug 14, 2018 09:58
[2018-08-14 11:00] VITALS: BP 100/49
--- NOTE | 2018-08-14 13:11 | PDOC ---
Renal-Progress Notes Subjective Notes Notes NO SOB History of Present Illness Hx of present illness BETTER Vitals Vitals Vital Signs Date Time Temp Pulse Resp B/P (MAP) Pulse Ox O2 Delivery O2 Flow Rate FiO2 08/14/18 12:52 18 Room Air 08/14/18 11:00 98.0 68 100/49 (66) 62 98.0 08/14/18 03:00 2.0 Weight Weight [ ] I.O. Intake and Output Intake and Output 08/14/18 07:00 Intake Total 1140 ml Output Total 0 ml Balance 1140 ml Intake Oral 1140 ml Output Urine Total 0 ml # Voids 3 Labs Labs Laboratory Tests Test 08/13/18 16:50 08/13/18 20:06 08/14/18 07:22 08/14/18 08:10 Glucose (Fingerstick) 61 mg/dL (70-99) 194 mg/dL (70-99) 198 mg/dL (70-99) Reticulocyte Count (auto) 2.5 % (0.5-2.5) Sodium Level 132 mmol/L (136-145) Potassium Level 4.9 mmol/L (3.5-5.1) Chloride Level 95 mmol/L (98-107) Carbon Dioxide Level 27 mmol/L (21-32) Anion Gap 10 (6-14) Blood Urea Nitrogen 51 mg/dL (8-26) Creatinine 6.8 mg/dL (0.7-1.3) Estimated GFR (Cockcroft-Gault) 7.8 Glucose Level 200 mg/dL (70-99) Calcium Level 9.2 mg/dL (8.5-10.1) Ferritin 660 ng/mL (26-388) Vitamin B12 Level 527 pg/mL (247-911) Thyroid Stimulating Hormone (TSH) 2.859 uIU/mL (0.358-3.74) Test 08/14/18 10:45 08/14/18 11:04 Iron Level 29 ug/dL (65-175) Total Iron Binding Capacity 269 ug/dL (250-450) Iron Saturation 11 % (15-34) Glucose (Fingerstick) 212 mg/dL (70-99) Micro Micro Microbiology 08/11/18 Blood Culture - Preliminary, Resulted NO GROWTH AFTER 2 DAYS Review of Systems Constitutional: yes: alert, oriented Ears/Nose/Throat: Yes: no symptom reported Pulmonary: Yes dyspnea Cardiovascular: Yes no symptom reported Gastrointestional: Yes: no symptom reported Genitourinary: Yes: no symptom reported Musculoskeletal: Yes: no symptom reported Psychiatric/Neurological: Yes: no symptom reported Endocrine: Yes: no symptom reported Physical Exam General Appearance: no apparent distress Skin: warm Respiratory: bilateral CTA Heart: S1S2 Abdomen: soft, bowel sounds present Genitourinary: bladder flat Extremities: pulses present Neurology: alert, oriented Musculoskeletal: Osteoarthritis Assessment Assessment IMP HYPERKALEMIA-RESOLVED ANEMIA ESRD ACUTE ON CHRONIC D CHF PLAN HD TOMORROW IF STILL HERE D/C PLANS NOTED ENC DIET AND FLUID RESTRICTIONS ARACELI CANSECO MD Aug 14, 2018 13:11
[2018-08-15 04:16] LABS: HEMOGLOBIN A1C 6.6 % (4.8-5.6)
[2018-08-16 19:18] LABS: ALBUM 3.1 g/dL (2.9-4.4); ALPHA 1 0.4 g/dL (0.0-0.4); ALPHA 2 0.8 g/dL (0.4-1.0); BETA 0.9 g/dL (0.7-1.3); GAMMA 1.5 g/dL (0.4-1.8); PROTEIN TOTAL 6.6 g/dL (6.0-8.5); SPEP AG RATIO 0.9 (0.7-1.7)
== END 2018-08-14 14:53 | disposition home health service (06) | DRG 291 ==
LOC: ER 13:56 → 5 SOUTH 15:30
PROVIDERS: ADMIT Internal Medicine; ATTEND Internal Medicine
PROC: 5A1D70Z Performance of Urinary Filtration, Intermittent, Less than 6 Hours Per Day (ICD-10-PCS; principal; 2018-08-12)
DX: I13.2 Hypertensive heart and chronic kidney disease with heart failure and with stage 5 chronic kidney disease, or end stage renal disease (principal); G93.41 Metabolic encephalopathy; N18.6 End stage renal disease; I50.33 Acute on chronic diastolic (congestive) heart failure; R65.11 Systemic inflammatory response syndrome (SIRS) of non-infectious origin with acute organ dysfunction; D61.818 Other pancytopenia; J98.11 Atelectasis; N25.81 Secondary hyperparathyroidism of renal origin; E87.5 Hyperkalemia; I42.0 Dilated cardiomyopathy; K21.9 Gastro-esophageal reflux disease without esophagitis; I48.91 Unspecified atrial fibrillation; I25.10 Atherosclerotic heart disease of native coronary artery without angina pectoris; F03.90 Unspecified dementia, unspecified severity, without behavioral disturbance, psychotic disturbance, mood disturbance, and anxiety; E78.00 Pure hypercholesterolemia, unspecified; E11.21 Type 2 diabetes mellitus with diabetic nephropathy; E11.22 Type 2 diabetes mellitus with diabetic chronic kidney disease; D63.1 Anemia in chronic kidney disease; M19.90 Unspecified osteoarthritis, unspecified site; F41.9 Anxiety disorder, unspecified; F32.9 Major depressive disorder, single episode, unspecified; R62.7 Adult failure to thrive; I95.9 Hypotension, unspecified; E78.5 Hyperlipidemia, unspecified; Z95.1 Presence of aortocoronary bypass graft; Z95.5 Presence of coronary angioplasty implant and graft; Z79.4 Long term (current) use of insulin; Z99.2 Dependence on renal dialysis; Z87.11 Personal history of peptic ulcer disease; Z88.6 Allergy status to analgesic agent; Z88.2 Allergy status to sulfonamides; Z88.8 Allergy status to other drugs, medicaments and biological substances; Z79.82 Long term (current) use of aspirin
CPT/HCPCS: 36415; 70450; 71045; 80048; 80053; 80069; 82140; 82553; 82607; 82728; 82805; 82962; 83036; 83540; 83550; 83605; 83735; 83880; 84165; 84443; 84484; 85025; 85045; 85610; 85730; 87040; 93005; 96361; 96374; 96375; J1815; J3490; J7040; J7613; Q0177; 92610; 97110; 97116; 99285-25

== ENCOUNTER 2018-09-25 08:18 | Inpatient (IN) | payer MEDICARE, BC ==
[2018-09-25] VITALS (18 sets, daily range): BP systolic 77–127; BP diastolic 44–67
[~2018-09-25] VITALS: Ht 162.6 cm; Wt 90.4 kg
[~2018-09-25 08:18] MED LIST changes: +ACET500T68 PO; +ASPI-612 PO; +CHOL10003 PO; +CYCL10TA2 PO; +INSU100I11 SQ; +LIPA1CAP2 PO; +MAGN400T3 PO; +PANC1CAP PO; +ROPI1TAB PO
[2018-09-25] MEDS ORDERED: IV NORMAL SALINE 500ML BAG 500 ML IV ONE ×3 (08:45→10:30)
[2018-09-25] MEDS ORDERED: NALOXONE 0.4 MG/ML VIAL. IV ONE (08:45)
[2018-09-25 08:56] LABS: CALCIUM 9.2 mg/dL (8.5-10.1); POTASSIUM 4.2 mmol/L (3.5-5.1)
[2018-09-25 09:01] LABS: ALBUMIN 2.7 g/dL (3.4-5.0); ALBUMIN/GLOBULIN RATIO 0.6 (1.0-1.7); TOTAL BILIRUBIN 1.7 mg/dL (0.2-1.0); TOTAL PROTEIN 7.4 g/dL (6.4-8.2)
[2018-09-25 09:05] LABS: BASE EXCESS ABG 2 mmol/L (-3-3); HCO3 ABG 26 mmol/L (21-28); PCO2 ABG 40 mmHg (35-46); PO2 ABG 103 mmHg (65-108); SAT O2 ABG 97 % (92-99)
[2018-09-25 09:22] LABS: BASO % 1 % (0-3); EOS # 0.1 x10^3/uL (0.0-0.7); EOS % 1 % (0-3); HEMATOCRIT 33.3 % (39.0-53.0); HEMOGLOBIN 11.4 g/dL (13.0-17.5); LYMPH # 0.8 x10^3/uL (1.0-4.8); LYMPH % 10 % (24-48); MEAN CORPUSCULAR HEMOGLOBIN 38 pg (25-35); MEAN CORPUSCULAR HGB CONC 34 g/dL (31-37); MEAN CORPUSCULAR VOLUME 111 fL (79-100); MONO # 0.4 x10^3/uL (0.0-1.1); MONO % 5 % (0-9); NEUT # 7.3 x10^3uL (1.8-7.7); NEUT % 84 % (31-73); PLATELET COUNT 81 x10^3/uL (140-400); RED BLOOD COUNT 3.01 x10^6/uL (4.30-5.70); RED CELL DISTRIBUTION WIDTH 15.7 % (11.5-14.5); WHITE BLOOD COUNT 8.6 x10^3/uL (4.0-11.0)
--- NOTE | 2018-09-25 09:22 | PHYS DOC ---
Past Medical History Past Medical History: A-Fib, Anemia, Arthritis, CAD, CHF, Dementia, Diabetes- Type II, GERD, High Cholesterol, Hypertension, CA, Renal Disease, Renal Failure Additional Past Medical Histor: cellulitis L leg, HYPERPARATHYROIDISM Past Surgical History: Coronary Bypass Surgery, Pacemaker, Other Additional Past Surgical Histo: STENTS,CABG x3,Fistula L)arm,bilat.shoulder, pain stimulator in back Alcohol Use: None Drug Use: None Adult General Chief Complaint Chief Complaint: WEAKNESS/GENERALIZED HPI HPI Patient is a 82 year old male brought in by embolus with altered mental status and fall. Apparently the patient has had prolonged and recurrent hospitalizations recently including intubation last month just got back from rehabilitation on he went to dialysis on Tuesday he seemed to be doing okay until 11 AM yesterday when he became weaker and less answering questions less normally. He fell today landing on his left arm as well as hitting his head on the side of the couch he tells me. Further history is limited by the patient's mental status gives additional history to state that the patient has not had any chest pain denies any fever has had a dry cough no chest pain Review of Systems Review of Systems Limited by the patient's mental status Current Medications Current Medications Current Medications Medications (Trade) Dose Ordered Sig/Tracy Start Time Stop Time Status Last Admin Dose Admin Lidocaine HCl (Lidocaine 1% 20ml Vial) 20 ml STK-MED ONCE 09/25/18 10:41 09/25/18 10:42 DC Naloxone HCl (Narcan) 0.2 mg 1X ONCE 09/25/18 08:45 09/25/18 08:46 DC 09/25/18 08:47 0.2 MG Norepinephrine Bitartrate 250 ml @ 0 mls/hr 1X ONCE 09/25/18 10:30 09/25/18 10:31 DC 09/25/18 11:13 1.9 MLS/HR Piperacillin Sod/ Tazobactam Sod (Zosyn Per Pharmacy) 1 each PRN DAILY PRN 09/25/18 09:30 UNV Piperacillin Sod/ Tazobactam Sod 2.25 gm/Sodium Chloride 50 ml @ 100 mls/hr 1X ONCE 09/25/18 09:30 09/25/18 09:59 DC 09/25/18 09:48 100 MLS/HR Sodium Chloride 500 ml @ 500 mls/hr 1X ONCE 09/25/18 10:30 09/25/18 11:29 DC 09/25/18 11:16 500 MLS/HR Vancomycin HCl (Vanco Per Pharmacy) 1 each PRN DAILY PRN 09/25/18 09:30 UNV Vancomycin HCl 1.75 gm/Sodium Chloride 500 ml @ 250 mls/hr 1X ONCE 09/25/18 09:45 09/25/18 11:44 DC 09/25/18 10:25 250 MLS/HR Allergies Allergies Allergies Coded Allergies Type Severity Reaction Last Updated Verified Oozmqde-Zyt-Ued Reductase Inhibitor Allergy Severe Brain swelling. 02/22/18 Yes gabapentin Allergy Severe Brain swelling 02/22/18 Yes sulfamethoxazole Allergy Intermediate 02/22/18 Yes trimethoprim Allergy Intermediate 02/22/18 Yes morphine Adverse Reaction Severe 02/22/18 Yes Physical Exam Physical Exam Constitutional: Chronically ill-appearing mild to moderate distress dry mucous membranes HENT: Normocephalic, atraumatic, bilateral external ears normal, no oral exudates, nose normal. [] Eyes: PERRLA, EOMI, conjunctiva normal, no discharge. [] Neck: Normal range of motion, no tenderness, supple, no stridor. [] Cardiovascular:Heart rate regular rhythm, no murmur [] Lungs & Thorax: Decreased breath sounds bilateral bases Abdomen: Bowel sounds normal, soft, no tenderness, no masses, no pulsatile masses. [] Skin: Scattered ecchymosis on the anterior chest as well as on the extremities. Extremities: There is chronic appearing edema bilateral lower extremities with some chronic skin changes. (Upper arm there is a AV fistula in place with a palpable thrill no obvious swelling there noted Neurologic: GCS eyes 3 verbal four motor six. The patient is grossly moving all extremities eyes are closed open to voice pinpoint pupil on the right surgical pupil on the left Psychologic: Current Patient Data Vital Signs Vital Signs Date Time Temp Pulse Resp B/P (MAP) Pulse Ox O2 Delivery O2 Flow Rate FiO2 09/25/18 11:15 78 16 91 09/25/18 11:03 BiPAP/CPAP 09/25/18 08:55 4.0 09/25/18 08:20 98.2 72/44 (53) 98.2 Lab Values Laboratory Tests Test 09/25/18 08:35 09/25/18 08:55 White Blood Count 8.6 x10^3/uL (4.0-11.0) Red Blood Count 3.01 x10^6/uL (4.30-5.70) L Hemoglobin 11.4 g/dL (13.0-17.5) L Hematocrit 33.3 % (39.0-53.0) L Mean Corpuscular Volume 111 fL (79-100) H Mean Corpuscular Hemoglobin 38 pg (25-35) H Mean Corpuscular Hemoglobin Concent 34 g/dL (31-37) Red Cell Distribution Width 15.7 % (11.5-14.5) H Platelet Count 81 x10^3/uL (140-400) L Neutrophils (%) (Auto) 84 % (31-73) H Lymphocytes (%) (Auto) 10 % (24-48) L Monocytes (%) (Auto) 5 % (0-9) Eosinophils (%) (Auto) 1 % (0-3) Basophils (%) (Auto) 1 % (0-3) Neutrophils # (Auto) 7.3 x10^3uL (1.8-7.7) Lymphocytes # (Auto) 0.8 x10^3/uL (1.0-4.8) L Monocytes # (Auto) 0.4 x10^3/uL (0.0-1.1) Eosinophils # (Auto) 0.1 x10^3/uL (0.0-0.7) Basophils # (Auto) 0.0 x10^3/uL (0.0-0.2) Platelet Estimate Decreased (ADEQUATE) Large Platelets Present Anisocytosis Slight Macrocytosis Present Prothrombin Time 16.5 SEC (11.7-14.0) H Prothrombin Time INR 1.4 (0.8-1.1) H Sodium Level 139 mmol/L (136-145) Potassium Level 4.2 mmol/L (3.5-5.1) Chloride Level 100 mmol/L (98-107) Carbon Dioxide Level 29 mmol/L (21-32) Anion Gap 10 (6-14) Blood Urea Nitrogen 56 mg/dL (8-26) H Creatinine 6.0 mg/dL (0.7-1.3) H Estimated GFR (Cockcroft-Gault) 9.0 BUN/Creatinine Ratio 9 (6-20) Glucose Level 108 mg/dL (70-99) H Lactic Acid Level 1.6 mmol/L (0.4-2.0) Calcium Level 9.2 mg/dL (8.5-10.1) Total Bilirubin 1.7 mg/dL (0.2-1.0) H Aspartate Amino Transferase (AST) 40 U/L (15-37) H Alanine Aminotransferase (ALT) 24 U/L (16-63) Alkaline Phosphatase 244 U/L (46-116) H Troponin I Quantitative 0.051 ng/mL (0.000-0.055) MG-Tar-R-Type Natriuretic Peptide 7114 pg/mL (0-449) H Total Protein 7.4 g/dL (6.4-8.2) Albumin 2.7 g/dL (3.4-5.0) L Albumin/Globulin Ratio 0.6 (1.0-1.7) L O2 Saturation 97 % (92-99) Arterial Blood pH 7.43 (7.35-7.45) Arterial Blood pCO2 at Patient Temp 40 mmHg (35-46) Arterial Blood pO2 at Patient Temp 103 mmHg (65-108) Arterial Blood HCO3 26 mmol/L (21-28) Arterial Blood Base Excess 2 mmol/L (-3-3) FiO2 36.0 Laboratory Tests 09/25/18 08:35 Laboratory Tests 09/25/18 08:35 EKG EKG [] Interpretation Time: EKG does show probably a paced rhythm in light of that no definite ischemia was identified QTC 518. Radiology/Procedures Radiology/Procedures [] Impressions: cxr my eval there is left basilar opacity and possibly effusion overall somewhat similar to 08/31, no definite significant change, possibly slightly more opacity is presetn. Course & Med Decision Making Course & Med Decision Making Critical care time was 40 minutes exclusive of procedures for mgmt of hypotension and altered mental status. This is a 82-year-old male multiple medical problems into his renal disease on hemodialysis history of recurrent pneumonia status post recent prolonged admission just got out of nursing facility rehabilitation on presenting with generalized weakness found to be hypotensive in the 70s initial fluid resuscitation initiated in the emergency room but pressure persistently below map of 65 and so central line was placed I discussed risks and benefits with the who is in agreement. She confirms patient is still a full code at this time. Head CT was negative acute. Blood gas was noted actually looks quite good overall pH of 7.42 with PCO2 of 40 oxygenation was adequate as well. Patient did have some somnolence while in the emergency room we tried a dose of Narcan with no effect he was responsive to intermittently to verbal or light touch he was protecting his airway. He didn't desaturate at times when sleeping he has a history of sleep apnea BiPAP was initiated for this. Chest x-ray did show pneumonia patient was given broad-spectrum antibiotics for this [address] Sheets i.e. plan to admit to the intensive care unit for further management and treatment. Levothroid was initiated I've been cautious with fluid resuscitation initially in the emergency room due to dialysis status patient received 400 mL of fluid by the paramedics and then I ordered another liter in the emergency room, and his clinical course he can have hIS BOLUS COMPLETED IN the intensive care unit. Pertinent Labs and Imaging studies reviewed. ( []Indication: Vascular access Consent: The patient FAMILY provided consent for this procedure. Procedure: The patient was positioned appropriately and the skin over the LEFT JUGULAR CAREY CATHETER ( TOLD ME THAT THEY COULDNT ACCESS THE RIGHT LAST TIEM) was prepped and draped in a sterile fashion. Local anesthesia was used. Ultrasound guidance utilized. A large bore needle was used to identify the vein. A guide wire was then inserted into the vein through the needle. A triple lumen catheter was then inserted into the vessel over the guide wire using the Seldinger technique. All ports showed good, free flowing blood return and were flushed with saline solution. The catheter was then securely fastened to the skin with sutures and covered with a sterile dressing. A post procedure X-ray was ordered AND CONFIRMED PLACEMENT The patient tolerated the procedure well, TRANSIENT HYPOXIA CORRECTED WHEN RT CAME DOWN TO HELP MANAGE THE MASK SEAL OF THE BIPAP Complications: none. [] Dragon Disclaimer Dragon Disclaimer This electronic medical record was generated, in whole or in part, using a voice recognition dictation system. Departure Departure Impression: Primary Impression: Pneumonia Disposition: ADMITTED INPATIENT Admitting Physician: Xie. Kruse Condition: GUARDED Referrals: STEFANIE VAIL MD (PCP) APOLLO MCALLISTER MD Sep 25, 2018 09:22
[2018-09-25] MEDS ORDERED: PIPERACILLIN/TAZOBACTAM 2.25 GM in IV NORMAL SALINE 50ML 50 ML IV ONE (09:30)
[2018-09-25] MEDS ORDERED: PIP/TAZO PER PHARMACY MC PRN (09:30)
[2018-09-25 09:32] LABS: PROTHROMBIN TIME PATIENT 16.5 SEC (11.7-14.0)
--- NOTE | 2018-09-25 09:40 | RAD ---
CT head without intravenous contrast History: Trauma, fall. C6 tender to palpation. Comparison: CT head August 25, 2018. Technique: Axial images are obtained of the head from the skull base through the vertex without IV contrast. Exposure: One or more of the following individualized dose reduction techniques were utilized for this examination: 1. Automated exposure control 2. Adjustment of the mA and/or kV according to patient size 3. Use of iterative reconstruction technique Findings: The ventricles are appropriate in size, shape, and location for the patient's age. No obvious intracranial mass, mass-effect, midline shift, hemorrhage or obvious acute infarction is identified. Basilar cisterns are patent. Bone windows demonstrate no acute calvarial abnormality. Mild right and mild-moderate left maxillary sinus mucosal disease is seen. Left maxillary sinus demonstrates mucoperiosteal reaction, compatible with changes of chronic sinusitis. There is complete opacification of the sphenoid sinus which appears decreased in size, compatible chronic sinusitis. Impression: 1. No acute intracranial process. Please note that CT can be relatively insensitive to acute ischemic infarction for up to 24 hours after symptom onset. 2. Acute and chronic paranasal sinusitis. CT cervical spine Comparison: None. Technique: Noncontrast CT of the cervical spine was performed using helical technique. Axial, sagittal, coronal reconstructions were obtained. Exposure: One or more of the following individualized dose reduction techniques were utilized for this examination: 1. Automated exposure control 2. Adjustment of the mA and/or kV according to patient size 3. Use of iterative reconstruction technique Findings: There is motion artifact at many levels which could obscure significant abnormalities. There is no evidence of acute fracture or acute malalignment involving the cervical spine. No prevertebral soft tissue swelling is identified. There is osseous fusion of the vertebral bodies at C6-7 due to previous surgery. Multilevel degeneration is seen with facet and uncovertebral hypertrophy as well as degenerative disc disease. Incompletely seen is left pleural effusion. Impression: 1. Limited by motion. 2. No evidence of acute traumatic injury involving the cervical spine. 3. Postsurgical changes at C6-7. 4. Degeneration. 5. Left pleural effusion. Electronically signed by: Kevin Seymour MD (09/25/2018 9:37 AM) [id number]
--- NOTE | 2018-09-25 09:43 | RAD ---
Indication:SHORT OF BREATH AND WEAKNESS TECHNIQUE:Portable AP chest X-ray COMPARISON:09/01/2018 FINDINGS: CABG changes noted. Dual-lead cardiac pacer is seen with leads ejecting over the heart. Heart is mildly enlarged in size. There is silhouetting of the left hemidiaphragm and left heart border. Right lung is clear. No pneumothorax. There is mild diffuse prominence of interstitium. Visualized bony thorax within normal limits. IMPRESSION: Opacification of the left lower lung zone may be secondary to atelectasis, pneumonia or small pleural effusion. May be superimposed mild interstitial pulmonary edema or chronic interstitial changes. Electronically signed by: Jerald Palma DO (09/25/2018 9:40 AM) [facility]
[2018-09-25] MEDS ORDERED: VANCOMYCIN 1.75 GM in IV NORMAL SALINE 500ML BAG 500 ML IV ONE (09:45)
[2018-09-25] MEDS ORDERED: NOREPINEPHRIN 8MG/250ML PREMIX 250 ML IV ONE (10:30)
[2018-09-25] MEDS ORDERED: LIDOCAINE 1% Multi-Dose 20 ML VIAL. ONE (10:41)
[2018-09-25 11:18] LABS: PLT ESTIMATE DECREASED (ADEQUATE)
[2018-09-25 11:19] LABS: ANISOCYTOSIS SLIGHT
--- NOTE | 2018-09-25 11:19 | RAD ---
PORTABLE CHEST 1V History: POST CENTRAL LINE PLACEMENT. Comparison: Earlier the same day Cardiomediastinal silhouette: Remains enlarged, unchanged. Lungs: Right lateral lung base not included. Abnormal opacity in the left lung base is again identified, likely both pleural and parenchymal in nature. Pleura: Left pleural effusion is stable. Pneumothorax: None visualized Left IJ central venous line is in place with tip overlying the lower aspect of the superior vena cava. Spinal stimulator leads are again seen as are postsurgical changes in the chest and pacemaker. Impression: 1. Tip of left IJ line overlies the lower superior vena cava. 2. Unchanged infiltrate or consolidation with pleural effusion and left lung base. Electronically signed by: Kevin Diaz MD (09/25/2018 11:16 AM) [id number]
[2018-09-25] MEDS: VASOPRESSIN 40 UNIT in IV DEXTROSE 5% 100ML 100 ML IV PRN (14:07)
--- NOTE | 2018-09-25 14:22 | PDOC ---
PULMONARY PROGRESS NOTES Vitals Vital Signs Date Time Temp Pulse Resp B/P (MAP) Pulse Ox O2 Delivery O2 Flow Rate FiO2 09/25/18 12:30 78 12 95 09/25/18 11:03 BiPAP/CPAP 09/25/18 08:55 4.0 09/25/18 08:20 98.2 72/44 (53) 98.2 HEENT: Other Labs Laboratory Tests Test 09/25/18 08:35 09/25/18 08:55 White Blood Count 8.6 x10^3/uL (4.0-11.0) Red Blood Count 3.01 x10^6/uL (4.30-5.70) Hemoglobin 11.4 g/dL (13.0-17.5) Hematocrit 33.3 % (39.0-53.0) Mean Corpuscular Volume 111 fL (79-100) Mean Corpuscular Hemoglobin 38 pg (25-35) Mean Corpuscular Hemoglobin Concent 34 g/dL (31-37) Red Cell Distribution Width 15.7 % (11.5-14.5) Platelet Count 81 x10^3/uL (140-400) Neutrophils (%) (Auto) 84 % (31-73) Lymphocytes (%) (Auto) 10 % (24-48) Monocytes (%) (Auto) 5 % (0-9) Eosinophils (%) (Auto) 1 % (0-3) Basophils (%) (Auto) 1 % (0-3) Neutrophils # (Auto) 7.3 x10^3uL (1.8-7.7) Lymphocytes # (Auto) 0.8 x10^3/uL (1.0-4.8) Monocytes # (Auto) 0.4 x10^3/uL (0.0-1.1) Eosinophils # (Auto) 0.1 x10^3/uL (0.0-0.7) Basophils # (Auto) 0.0 x10^3/uL (0.0-0.2) Platelet Estimate Decreased (ADEQUATE) Large Platelets Present Anisocytosis Slight Macrocytosis Present Prothrombin Time 16.5 SEC (11.7-14.0) Prothromb Time International Ratio 1.4 (0.8-1.1) Sodium Level 139 mmol/L (136-145) Potassium Level 4.2 mmol/L (3.5-5.1) Chloride Level 100 mmol/L (98-107) Carbon Dioxide Level 29 mmol/L (21-32) Anion Gap 10 (6-14) Blood Urea Nitrogen 56 mg/dL (8-26) Creatinine 6.0 mg/dL (0.7-1.3) Estimated GFR (Cockcroft-Gault) 9.0 BUN/Creatinine Ratio 9 (6-20) Glucose Level 108 mg/dL (70-99) Lactic Acid Level 1.6 mmol/L (0.4-2.0) Calcium Level 9.2 mg/dL (8.5-10.1) Total Bilirubin 1.7 mg/dL (0.2-1.0) Aspartate Amino Transf (AST/SGOT) 40 U/L (15-37) Alanine Aminotransferase (ALT/SGPT) 24 U/L (16-63) Alkaline Phosphatase 244 U/L (46-116) Troponin I Quantitative 0.051 ng/mL (0.000-0.055) LX-Avc-M-Type Natriuretic Peptide 7114 pg/mL (0-449) Total Protein 7.4 g/dL (6.4-8.2) Albumin 2.7 g/dL (3.4-5.0) Albumin/Globulin Ratio 0.6 (1.0-1.7) O2 Saturation 97 % (92-99) Arterial Blood pH 7.43 (7.35-7.45) Arterial Blood pCO2 at Patient Temp 40 mmHg (35-46) Arterial Blood pO2 at Patient Temp 103 mmHg (65-108) Arterial Blood HCO3 26 mmol/L (21-28) Arterial Blood Base Excess 2 mmol/L (-3-3) FiO2 36.0 Laboratory Tests Test 09/25/18 08:35 09/25/18 08:55 White Blood Count 8.6 x10^3/uL (4.0-11.0) Red Blood Count 3.01 x10^6/uL (4.30-5.70) Hemoglobin 11.4 g/dL (13.0-17.5) Hematocrit 33.3 % (39.0-53.0) Mean Corpuscular Volume 111 fL (79-100) Mean Corpuscular Hemoglobin 38 pg (25-35) Mean Corpuscular Hemoglobin Concent 34 g/dL (31-37) Red Cell Distribution Width 15.7 % (11.5-14.5) Platelet Count 81 x10^3/uL (140-400) Neutrophils (%) (Auto) 84 % (31-73) Lymphocytes (%) (Auto) 10 % (24-48) Monocytes (%) (Auto) 5 % (0-9) Eosinophils (%) (Auto) 1 % (0-3) Basophils (%) (Auto) 1 % (0-3) Neutrophils # (Auto) 7.3 x10^3uL (1.8-7.7) Lymphocytes # (Auto) 0.8 x10^3/uL (1.0-4.8) Monocytes # (Auto) 0.4 x10^3/uL (0.0-1.1) Eosinophils # (Auto) 0.1 x10^3/uL (0.0-0.7) Basophils # (Auto) 0.0 x10^3/uL (0.0-0.2) Platelet Estimate Decreased (ADEQUATE) Large Platelets Present Anisocytosis Slight Macrocytosis Present Prothrombin Time 16.5 SEC (11.7-14.0) Prothromb Time International Ratio 1.4 (0.8-1.1) Sodium Level 139 mmol/L (136-145) Potassium Level 4.2 mmol/L (3.5-5.1) Chloride Level 100 mmol/L (98-107) Carbon Dioxide Level 29 mmol/L (21-32) Anion Gap 10 (6-14) Blood Urea Nitrogen 56 mg/dL (8-26) Creatinine 6.0 mg/dL (0.7-1.3) Estimated GFR (Cockcroft-Gault) 9.0 BUN/Creatinine Ratio 9 (6-20) Glucose Level 108 mg/dL (70-99) Lactic Acid Level 1.6 mmol/L (0.4-2.0) Calcium Level 9.2 mg/dL (8.5-10.1) Total Bilirubin 1.7 mg/dL (0.2-1.0) Aspartate Amino Transf (AST/SGOT) 40 U/L (15-37) Alanine Aminotransferase (ALT/SGPT) 24 U/L (16-63) Alkaline Phosphatase 244 U/L (46-116) Troponin I Quantitative 0.051 ng/mL (0.000-0.055) TB-Nqj-R-Type Natriuretic Peptide 7114 pg/mL (0-449) Total Protein 7.4 g/dL (6.4-8.2) Albumin 2.7 g/dL (3.4-5.0) Albumin/Globulin Ratio 0.6 (1.0-1.7) O2 Saturation 97 % (92-99) Arterial Blood pH 7.43 (7.35-7.45) Arterial Blood pCO2 at Patient Temp 40 mmHg (35-46) Arterial Blood pO2 at Patient Temp 103 mmHg (65-108) Arterial Blood HCO3 26 mmol/L (21-28) Arterial Blood Base Excess 2 mmol/L (-3-3) FiO2 36.0 Medications Active Scripts Medications Dose Route/Sig Max Daily Dose Days Date Category Humalog (Insulin Lispro) 100 Unit/1 Ml Insuln.pen 10 Units SQ TIDWMEALS 30 08/14/18 Rx Haloperidol 2 Mg Tablet 0.5 Tab PO Q12HR 08/14/18 Rx Lantus Solostar (Insulin Glargine,Hum.rec.anlog) 100 Unit/1 Ml Insuln.pen 24 Unit SQ QHS 30 08/14/18 Rx Alprazolam 0.5 Mg Tablet 1 Tab PO HS PRN 08/14/18 Rx Tamsulosin Hcl 0.4 Mg Cap.er.24h 0.8 Mg PO DAILY 08/11/18 Reported Spironolactone 25 Mg Tablet 1 Tab PO DAILY 08/11/18 Reported Senokot (Sennosides) 8.6 Mg Tablet 1 Tab PO BID 08/11/18 Reported Requip (Ropinirole Hcl) 1 Mg Tablet 1 Tab PO QHS 08/11/18 Reported Lyrica (Pregabalin) 75 Mg Capsule 1 Cap PO BID 08/11/18 Reported Super Enzyme Caps (Pancreat/Bet Hcl/Pep/Brom/Pap) 1 Each Capsule 4 Cap PO QID 08/11/18 Reported Magnesium Oxide 400 Mg Tablet 1 Tab PO DAILY 08/11/18 Reported Gemfibrozil 600 Mg Tablet 1 Tab PO BIDWMEALS 08/11/18 Reported Folic Acid 1 Mg Tablet 1 Tab PO DAILY 08/11/18 Reported Fish Oil 1,000 Mg Capsule (Lena-3 Fatty Acids/Fish Oil) 1 Each Capsule 2,000 Each PO BID 08/11/18 Reported Cyclobenzaprine Hcl 10 Mg Tablet 1 Tab PO BID 08/11/18 Reported Irina Elias 6,000 Units Capsule (Lipase/Protease/Amylase) 1 Each Capsule.dr 1 Each PO QID 08/11/18 Reported Vitamin D3 (Cholecalciferol (Vitamin D3)) 1,000 Unit Tablet 3 Tab PO DAILY 08/11/18 Reported Aspirin Ec (Aspirin) 81 Mg Tablet. 1 Tab PO DAILY 08/11/18 Reported Acetaminophen 500 Mg Tablet 1,000 Mg PO PRN DAILY PRN 08/11/18 Reported Midodrine Hcl 5 Mg Tablet 5 Mg PO 3X/WEEK 06/06/18 Reported Hydroxyzine Hcl 25 Mg Tablet 25 Mg PO QID 06/06/18 Reported Calcium Acetate 667 Mg Tablet 2 Cap PO BIDAC 06/06/18 Reported Prevalite Packet (Cholestyramine/Aspartame) 4 Gm Powd.pack 4 Gm PO BID 06/06/18 Reported Toprol Xl (Metoprolol Succinate) 25 Mg Tab.er.24h 1 Tab PO DAILY 06/06/18 Reported Furosemide 40 Mg Tablet 2 Tab PO DAILY 06/06/18 Reported Diltiazem 24HR Cd (Diltiazem Hcl) 120 Mg Cap.er.24h 1 Cap PO DAILY 06/06/18 Reported Percocet 5-325 Mg Tablet (Oxycodone/Acetaminophen) 1 Each Tablet 1 Tab PO QID 06/06/17 Reported Humalog (Insulin Lispro) 100 Unit/1 Ml Cartridge 8 Unit SQ TIDAC 06/06/17 Reported Prilosec Otc (Omeprazole Magnesium) 20 Mg Tablet. 20 Mg PO DAILY 11/20/14 Reported Impression . DICTATED ACUTE RESP FAILURE SEPSIS SEE ORDERS THANKS LUZ MARIA WHYTE MD Sep 25, 2018 14:22
[2018-09-25] MEDS ORDERED: NOREPINEPHRIN 8MG/250ML PREMIX 250 ML IV PRN (14:45)
[2018-09-25] MEDS: VANCOMYCIN PER PHARMACY MC PRN (15:51)
[2018-09-25] MEDS: PIPERACILLIN/TAZOBACTAM 2.25 GM in IV NORMAL SALINE 50ML 50 ML IV SCH ×2 (16:06→21:41)
[2018-09-25] MEDS ORDERED: DOCUSATE SODIUM 100 MG CAPSULE. PO PRN (16:30)
[2018-09-25] MEDS ORDERED: ALBUTEROL SULFATE 2.5 MG/3 ML NEBU. NEB PRN (16:30)
[2018-09-25] MEDS ORDERED: DEXTROSE 50% 25 GM / 50ML DISP.SYRIN. IV PRN (16:30)
[2018-09-25] MEDS ORDERED: ONDANSETRON PF 4 MG/2 ML VIAL. IV PRN (16:30)
--- NOTE | 2018-09-25 16:31 | PDOC1 ---
History and Physical Date of Admission Date of Admission 09/25/18 Identification/Chief Complaint Chief Complaint AMS, sob Source Source: Caregiver, Chart review History of Present Illness History of Present Illness HPI Patient is a 82 year old male brought in by embolus with altered mental status and fall. pt was dced here 10ds ago for same reason, left side PNA and pleural effusion, low bp REQUIred pressor in ICU. Pt seen in ER, arousable, on Bipap, but not answer questions or follow commands. at bedside saying pt was doing ok till yesterday with cough, sob, and every weak today. he is on HD for ESRD ttsat. Pt abg was ok, on bipap for now. supposed to use CPAP at home but refused. no home o2. BP 70s in ER, responding ok to 90s after 1L NS bolus, but requring levophed. said pt always has low BP, but home meds has metoprolol and cardizem. head CT neg. Past Medical History Cardiovascular: AFIB, CAD, HTN, Hyperlipidemia Pulmonary: Pneumonia, Other CENTRAL NERVOUS SYSTEM: Dementia GI: GERD, Peptic Ulcer disease Heme/Onc: Anemia NOS Hepatobiliary: No pertinent hx Psych: Anxiety, Depression Rheumatologic: Other Infectious disease: No pertinent hx Renal/: Chronic renal failure Endocrine: Diabetes, Hyperparathyroidism Past Surgical History Past Surgical History: CABG, Other Family History Family History: Heart Disease, Family History Unknown Social History ALCOHOL: none Drugs: None Current Problem List Problem List Problems Medical Problems: (1) Pneumonia Status: Acute Current Medications Current Medications Current Medications Medications (Trade) Dose Ordered Sig/Tracy Start Time Stop Time Status Last Admin Dose Admin Lidocaine HCl (Lidocaine 1% 20ml Vial) 20 ml STK-MED ONCE 09/25/18 10:41 09/25/18 10:42 DC Naloxone HCl (Narcan) 0.2 mg 1X ONCE 09/25/18 08:45 09/25/18 08:46 DC 09/25/18 08:47 0.2 MG Norepinephrine Bitartrate 250 ml @ 9.375 mls/ hr CONT PRN 09/25/18 14:45 Piperacillin Sod/ Tazobactam Sod (Zosyn Per Pharmacy) 1 each PRN DAILY PRN 09/25/18 09:30 Piperacillin Sod/ Tazobactam Sod 2.25 gm/Sodium Chloride 50 ml @ 100 mls/hr Q8HRS 10/29/18 16:00 09/25/18 16:06 100 MLS/HR Sodium Chloride 500 ml @ 500 mls/hr 1X ONCE 09/25/18 10:30 09/25/18 11:29 DC 09/25/18 11:16 500 MLS/HR Vancomycin HCl (Vanco Per Pharmacy) 1 each PRN DAILY PRN 09/25/18 09:30 09/25/18 15:51 1 EACH Vancomycin HCl (Vancomycin Random Level) 1 each 1X ONCE 09/26/18 06:00 09/26/18 06:01 Vancomycin HCl 1.75 gm/Sodium Chloride 500 ml @ 250 mls/hr 1X ONCE 09/25/18 09:45 09/25/18 11:44 DC 09/25/18 10:25 250 MLS/HR Vasopressin 40 unit/Dextrose 102 ml @ 6 mls/hr CONT PRN 09/25/18 13:15 09/25/18 14:07 6 MLS/HR Allergies Allergies Allergies Coded Allergies Type Severity Reaction Last Updated Verified Tytuqrj-Pfs-Ned Reductase Inhibitor Allergy Severe Brain swelling. 02/22/18 Yes gabapentin Allergy Severe Brain swelling 02/22/18 Yes sulfamethoxazole Allergy Intermediate 02/22/18 Yes trimethoprim Allergy Intermediate 02/22/18 Yes morphine Adverse Reaction Severe 02/22/18 Yes ROS Review of System CONSTITUTIONAL: No fever or chills EYES: No recent changes SKIN: No rash or itching CARDIOVASCULAR: No chest pain, syncope, palpitations, or edema RESPIRATORY: No SOB or cough GASTROINTESTINAL: No nausea, vomiting or abdominal pain NEUROLOGICAL: No headaches or weakness ENDOCRINE: No cold or heat intolerance GENITOURINARY: No urgency or frequency of urination MUSCULOSKELETAL: No back pain or joint pain LYMPHATICS: No enlarged lymph nodes PSYCHIATRIC: No anxiety or depression Physical Exam Physical Exam GEN.: drowsy, arousable, not answer questions or follow commands. HEENT: Head is normocephalic, atraumatic NECK: Supple. LUNGS: left side mild decreased bs. HEART: RRR, S1, S2 present. Peripheral pulses intact ABDOMEN: Soft, nontender. Positive bowel sounds. EXTREMITIES: Without any cyanosis. bl leg trace edema. NEUROLOGIC: Normal speech, normal tone PSYCHIATRIC: Normal affect, normal mood. SKIN: No ulcerations Vitals Vitals Vital Signs Date Time Temp Pulse Resp B/P (MAP) Pulse Ox O2 Delivery O2 Flow Rate FiO2 09/25/18 16:00 98.9 94 16 113/54 (73) 100 BiPAP/CPAP 98.9 09/25/18 08:55 4.0 Labs Labs Laboratory Tests Test 09/25/18 08:35 09/25/18 08:55 White Blood Count 8.6 x10^3/uL (4.0-11.0) Red Blood Count 3.01 x10^6/uL (4.30-5.70) Hemoglobin 11.4 g/dL (13.0-17.5) Hematocrit 33.3 % (39.0-53.0) Mean Corpuscular Volume 111 fL (79-100) Mean Corpuscular Hemoglobin 38 pg (25-35) Mean Corpuscular Hemoglobin Concent 34 g/dL (31-37) Red Cell Distribution Width 15.7 % (11.5-14.5) Platelet Count 81 x10^3/uL (140-400) Neutrophils (%) (Auto) 84 % (31-73) Lymphocytes (%) (Auto) 10 % (24-48) Monocytes (%) (Auto) 5 % (0-9) Eosinophils (%) (Auto) 1 % (0-3) Basophils (%) (Auto) 1 % (0-3) Neutrophils # (Auto) 7.3 x10^3uL (1.8-7.7) Lymphocytes # (Auto) 0.8 x10^3/uL (1.0-4.8) Monocytes # (Auto) 0.4 x10^3/uL (0.0-1.1) Eosinophils # (Auto) 0.1 x10^3/uL (0.0-0.7) Basophils # (Auto) 0.0 x10^3/uL (0.0-0.2) Platelet Estimate Decreased (ADEQUATE) Large Platelets Present Anisocytosis Slight Macrocytosis Present Prothrombin Time 16.5 SEC (11.7-14.0) Prothromb Time International Ratio 1.4 (0.8-1.1) Sodium Level 139 mmol/L (136-145) Potassium Level 4.2 mmol/L (3.5-5.1) Chloride Level 100 mmol/L (98-107) Carbon Dioxide Level 29 mmol/L (21-32) Anion Gap 10 (6-14) Blood Urea Nitrogen 56 mg/dL (8-26) Creatinine 6.0 mg/dL (0.7-1.3) Estimated GFR (Cockcroft-Gault) 9.0 BUN/Creatinine Ratio 9 (6-20) Glucose Level 108 mg/dL (70-99) Lactic Acid Level 1.6 mmol/L (0.4-2.0) Calcium Level 9.2 mg/dL (8.5-10.1) Total Bilirubin 1.7 mg/dL (0.2-1.0) Aspartate Amino Transf (AST/SGOT) 40 U/L (15-37) Alanine Aminotransferase (ALT/SGPT) 24 U/L (16-63) Alkaline Phosphatase 244 U/L (46-116) Troponin I Quantitative 0.051 ng/mL (0.000-0.055) FW-Gta-R-Type Natriuretic Peptide 7114 pg/mL (0-449) Total Protein 7.4 g/dL (6.4-8.2) Albumin 2.7 g/dL (3.4-5.0) Albumin/Globulin Ratio 0.6 (1.0-1.7) O2 Saturation 97 % (92-99) Arterial Blood pH 7.43 (7.35-7.45) Arterial Blood pCO2 at Patient Temp 40 mmHg (35-46) Arterial Blood pO2 at Patient Temp 103 mmHg (65-108) Arterial Blood HCO3 26 mmol/L (21-28) Arterial Blood Base Excess 2 mmol/L (-3-3) FiO2 36.0 Laboratory Tests Test 09/25/18 08:35 09/25/18 08:55 White Blood Count 8.6 x10^3/uL (4.0-11.0) Red Blood Count 3.01 x10^6/uL (4.30-5.70) Hemoglobin 11.4 g/dL (13.0-17.5) Hematocrit 33.3 % (39.0-53.0) Mean Corpuscular Volume 111 fL (79-100) Mean Corpuscular Hemoglobin 38 pg (25-35) Mean Corpuscular Hemoglobin Concent 34 g/dL (31-37) Red Cell Distribution Width 15.7 % (11.5-14.5) Platelet Count 81 x10^3/uL (140-400) Neutrophils (%) (Auto) 84 % (31-73) Lymphocytes (%) (Auto) 10 % (24-48) Monocytes (%) (Auto) 5 % (0-9) Eosinophils (%) (Auto) 1 % (0-3) Basophils (%) (Auto) 1 % (0-3) Neutrophils # (Auto) 7.3 x10^3uL (1.8-7.7) Lymphocytes # (Auto) 0.8 x10^3/uL (1.0-4.8) Monocytes # (Auto) 0.4 x10^3/uL (0.0-1.1) Eosinophils # (Auto) 0.1 x10^3/uL (0.0-0.7) Basophils # (Auto) 0.0 x10^3/uL (0.0-0.2) Platelet Estimate Decreased (ADEQUATE) Large Platelets Present Anisocytosis Slight Macrocytosis Present Prothrombin Time 16.5 SEC (11.7-14.0) Prothromb Time International Ratio 1.4 (0.8-1.1) Sodium Level 139 mmol/L (136-145) Potassium Level 4.2 mmol/L (3.5-5.1) Chloride Level 100 mmol/L (98-107) Carbon Dioxide Level 29 mmol/L (21-32) Anion Gap 10 (6-14) Blood Urea Nitrogen 56 mg/dL (8-26) Creatinine 6.0 mg/dL (0.7-1.3) Estimated GFR (Cockcroft-Gault) 9.0 BUN/Creatinine Ratio 9 (6-20) Glucose Level 108 mg/dL (70-99) Lactic Acid Level 1.6 mmol/L (0.4-2.0) Calcium Level 9.2 mg/dL (8.5-10.1) Total Bilirubin 1.7 mg/dL (0.2-1.0) Aspartate Amino Transf (AST/SGOT) 40 U/L (15-37) Alanine Aminotransferase (ALT/SGPT) 24 U/L (16-63) Alkaline Phosphatase 244 U/L (46-116) Troponin I Quantitative 0.051 ng/mL (0.000-0.055) RS-Pxp-C-Type Natriuretic Peptide 7114 pg/mL (0-449) Total Protein 7.4 g/dL (6.4-8.2) Albumin 2.7 g/dL (3.4-5.0) Albumin/Globulin Ratio 0.6 (1.0-1.7) O2 Saturation 97 % (92-99) Arterial Blood pH 7.43 (7.35-7.45) Arterial Blood pCO2 at Patient Temp 40 mmHg (35-46) Arterial Blood pO2 at Patient Temp 103 mmHg (65-108) Arterial Blood HCO3 26 mmol/L (21-28) Arterial Blood Base Excess 2 mmol/L (-3-3) FiO2 36.0 VTE Prophylaxis Ordered VTE Prophylaxis Devices: Yes VTE Pharmacological Prophylaxi: Yes Assessment/Plan Assessment/Plan AMS, metabolic encephalopathy with resp failure, sepsis left side possible PNA and pleural effusion acute hypoxic resp failure requiring bipap acute on chronic diastolic CHF h/o cad with CABG pafib with PPM hypotension, sepsis, required pressors dm2 on insulin h/o HTN ged hld ESRD ON HD ttsat chronic anemia recent CAP non compliance with CPAP AT home severe malnutrition plan: pulm, renal, id consult on vanco and zosyn for now ICU care with bipap pressors to keep MAP >65 NPO, hold home po meds ssi dvt, gi ppx IVF ns 75cc/h for now HD ttsat talked with for 15min, updated her that pt is critically ill and anytime. she wants FC FOR NOW, but said pt didnot want machine to keep him alive. PAT consult cc time 35min. JAMES QUAN MD Sep 25, 2018 16:30
[2018-09-25] MEDS: IV NORMAL SALINE 1000ML BAG 1,000 ML IV SCH (16:33)
[2018-09-25] MEDS: INSULIN LISPRO 300 UNITS/3 ML INSULN.PEN. SQ SCH (17:00)
[2018-09-25] MEDS: IPRATRPIUM/ALBUTEROL 0.5/2.5MG 3 ML NEBU. NEB SCH (19:27)
[2018-09-25] MEDS: FAMOTIDINE 20 MG/2 ML VIAL IVP SCH (21:22)
[2018-09-25] MEDS: HEPARIN for SUB-Q USE 5,000 UNIT/ML VIAL. SQ SCH (21:41)
--- NOTE | 2018-09-25 23:49 | CONS ---
DATE OF CONSULTATION: 09/25/2018 ATTENDING PHYSICIAN: Dr. Gilmore. REASON FOR CONSULTATION: The patient seen in pulmonary consultation at the request of Dr. Gilmore for acute respiratory distress, acute respiratory failure, currently on BiPAP, pH 7.43, PaCO2 of 40, paO2 of 103. HISTORY OF PRESENT ILLNESS: The patient is an 82-year-old male that was hospitalized back in late part of July to sometime in August. He was discharged to a care home facility. Subsequently, was at home for the past 3 days, was doing well. He does have end-stage renal disease and peripheral vascular disease with other comorbidities. His noted that Tuesday he started to cough. He became weaker. No documented fever, chills, nausea, vomiting, diarrhea. They did bring him to the Emergency Room/Department, he was found to be hypotensive. He is currently on IV fluids along with Levophed. denies hemoptysis. No fever or chills. PAST MEDICAL HISTORY: Remarkable for prior acute respiratory failure, abnormal CT revealing left lower lobe infiltrate and effusion. Gram-negative with gram-positive pneumonia, recent sepsis, metabolic and toxic encephalopathy, protein malnutrition, coronary artery disease, previous coronary artery bypass grafting, status post pacemaker, peripheral vascular disease, type 2 diabetes, gastroesophageal reflux, end-stage renal disease on hemodialysis and he has chronic cellulitis of the lower extremities. PAST SURGICAL HISTORY: Status post coronary artery bypass grafting, status post pacemaker. He has a fistula in the left arm for dialysis. REVIEW OF SYSTEMS: Unobtainable secondary to the patient's condition. CURRENT MEDICATIONS: List was reviewed. ALLERGIES: MULTIPLE MEDICATIONS, PLEASE SEE THE LIST. FROM AN ANTIBIOTIC STANDPOINT OF VIEW, HE IS ALLERGIC TO SULFAMETHOXAZOLE, TRIMETHOPRIM. PHYSICAL EXAMINATION: GENERAL: The patient was seen in the Intensive Care Unit. VITAL SIGNS: Stable. He is currently on Levophed, on BiPAP. HEENT: Eyes, the sclerae were nonicteric. NECK: Jugular venous distention was not elevated. No lymphadenopathy. CHEST: Full expansion. LUNGS: Adequate airway flow, no wheezes. CARDIOVASCULAR: Regular rate and rhythm with S1, S2, no S3. ABDOMEN: Soft, nontender. EXTREMITIES: Evidence of peripheral vascular disease. Some edema. NEUROLOGIC: The patient was on BiPAP, sleepy, but arousable. LABORATORY DATA: Reviewed. White count was normal. Hemoglobin and hematocrit were noted. Electrolytes were noted. BUN and creatinine were elevated. Albumin was low. BNP was elevated. Troponin was not elevated. Chest x-ray was reviewed revealing opacification of the left lower lobe with a small effusion. There was also evidence of interstitial edema. IMPRESSION: 1. Acute respiratory failure. 2. Sepsis, suspect secondary to pneumonia. 3. Coronary artery disease with previous coronary artery bypass grafting. 4. Acute metabolic toxic encephalopathy, present upon admission. 5. Protein malnutrition present upon admission. 6. Status post pacemaker. 7. Peripheral vascular disease. PLAN: 1. We will continue current support with BiPAP. 2. IV antibiotics to cover both gram-negative and gram-positive organisms. 3. Consult ID. 4. Follow clinical course and make further recommendations. I spoke with the at the bedside, total cumulative critical care time of 40 minutes. LUZ MARIA WHYTE MD DR: MAIK/elpidio JOB#: [id number] / [id number]
[2018-09-26] VITALS (36 sets, daily range): BP systolic 73–119; BP diastolic 37–70
[2018-09-26] MEDS: VASOPRESSIN 40 UNIT in IV DEXTROSE 5% 100ML 100 ML IV PRN (04:12)
[2018-09-26 05:22] LABS: BASO % 0 % (0-3); EOS # 0.1 x10^3/uL (0.0-0.7); EOS % 1 % (0-3); HEMATOCRIT 36.8 % (39.0-53.0); HEMOGLOBIN 12.7 g/dL (13.0-17.5); LYMPH # 0.9 x10^3/uL (1.0-4.8); LYMPH % 9 % (24-48); MEAN CORPUSCULAR HEMOGLOBIN 38 pg (25-35); MEAN CORPUSCULAR HGB CONC 34 g/dL (31-37); MEAN CORPUSCULAR VOLUME 110 fL (79-100); MONO # 0.6 x10^3/uL (0.0-1.1); MONO % 6 % (0-9); NEUT # 8.9 x10^3uL (1.8-7.7); NEUT % 85 % (31-73); PLATELET COUNT 98 x10^3/uL (140-400); RED BLOOD COUNT 3.35 x10^6/uL (4.30-5.70); RED CELL DISTRIBUTION WIDTH 15.6 % (11.5-14.5); WHITE BLOOD COUNT 10.4 x10^3/uL (4.0-11.0)
[2018-09-26] MEDS: PIPERACILLIN/TAZOBACTAM 2.25 GM in IV NORMAL SALINE 50ML 50 ML IV SCH ×3 (05:48→21:28)
[2018-09-26] MEDS: HEPARIN for SUB-Q USE 5,000 UNIT/ML VIAL. SQ SCH ×3 (05:51→21:30)
[2018-09-26] MEDS: IV NORMAL SALINE 1000ML BAG 1,000 ML IV SCH (05:51)
[2018-09-26 05:58] LABS: CALCIUM 8.4 mg/dL (8.5-10.1); CREATININE 6.6 mg/dL (0.7-1.3); GFR 8.1; POTASSIUM 5.5 mmol/L (3.5-5.1)
[2018-09-26] MEDS ORDERED: VANCOMYCIN RANDOM LEVEL. MC ONE (06:00)
[2018-09-26] MEDS ORDERED: IV NORMAL SALINE 1000ML BAG 1,000 ML IV PRN ×2 (06:43)
[2018-09-26] MEDS ORDERED: 0.9 % SODIUM CHLORIDE 10 ML DISP.SYRIN. IV PRN ×2 (06:45)
[2018-09-26] MEDS ORDERED: DIALYSIS PATIENT. MC PRN ×2 (06:45)
[2018-09-26] MEDS ORDERED: ALBUMIN HUMAN 25% 200 ML IV PRN (06:45)
[2018-09-26 07:23] LABS: BASE EXCESS ABG -5 mmol/L (-3-3); HCO3 ABG 22 mmol/L (21-28); PCO2 ABG 43 mmHg (35-46); PO2 ABG 158 mmHg (65-108); SAT O2 ABG 99 % (92-99)
[2018-09-26] MEDS: IPRATRPIUM/ALBUTEROL 0.5/2.5MG 3 ML NEBU. NEB SCH ×4 (07:30→19:29)
--- NOTE | 2018-09-26 07:44 | PDOC ---
Infectious Disease Note ROS: ROS Negative except for above. Vital Signs: Vital Signs Vital Signs Date Time Temp Pulse Resp B/P (MAP) Pulse Ox O2 Delivery O2 Flow Rate FiO2 09/26/18 07:03 100 BiPAP/CPAP 09/26/18 06:15 98 95/55 (68) 09/26/18 06:00 18 09/26/18 04:00 98.2 98.2 09/25/18 08:55 4.0 Medications: Inpatient Meds: Current Medications Medications (Trade) Dose Ordered Sig/Tracy Start Time Stop Time Status Last Admin Dose Admin Acetaminophen (Tylenol) 650 mg PRN Q6HRS PRN 09/25/18 16:30 Albumin Human 200 ml @ 200 mls/hr 1X PRN PRN 09/26/18 06:45 09/26/18 12:44 Albuterol Sulfate (Ventolin Neb Soln) 2.5 mg PRN Q2HR PRN 09/25/18 16:30 Albuterol/ Ipratropium (Duoneb) 3 ml RTQID 09/25/18 20:00 09/25/18 19:27 3 ML Dextrose (Dextrose 50%-Water Syringe) 12.5 gm PRN Q15MIN PRN 09/25/18 16:30 Docusate Sodium (Colace) 100 mg PRN DAILY PRN 09/25/18 16:30 Famotidine (Pepcid Vial) 20 mg Q48H 09/25/18 21:00 09/25/18 21:22 20 MG Guaifenesin (Mucinex) 600 mg BID 09/25/18 21:00 Heparin Sodium (Porcine) (Heparin Sodium) 5,000 unit Q8HRS 09/25/18 22:00 09/26/18 05:51 5,000 UNIT Info (PHARMACY MONITORING -- do not chart) 1 each PRN DAILY PRN 09/26/18 06:45 Insulin Human Lispro (HumaLOG) 0-7 UNITS TIDWMEALS 09/25/18 17:00 Lidocaine HCl (Lidocaine 1% 20ml Vial) 20 ml STK-MED ONCE 09/25/18 10:41 09/25/18 10:42 DC Naloxone HCl (Narcan) 0.2 mg 1X ONCE 09/25/18 08:45 09/25/18 08:46 DC 09/25/18 08:47 0.2 MG Norepinephrine Bitartrate 250 ml @ 9.375 mls/ hr CONT PRN 09/25/18 14:45 09/25/18 19:33 18.75 MLS/HR Ondansetron HCl (Zofran) 4 mg PRN Q6HRS PRN 09/25/18 16:30 Piperacillin Sod/ Tazobactam Sod (Zosyn Per Pharmacy) 1 each PRN DAILY PRN 09/25/18 09:30 Piperacillin Sod/ Tazobactam Sod 2.25 gm/Sodium Chloride 50 ml @ 100 mls/hr Q8HRS 09/25/18 16:00 09/26/18 05:48 100 MLS/HR Sodium Chloride 1,000 ml @ 400 mls/hr Q2H30M PRN 09/26/18 06:43 09/26/18 18:42 Sodium Chloride (Normal Saline Flush) 10 ml 1X PRN PRN 09/26/18 06:45 09/27/18 06:44 Vancomycin HCl (Vanco Per Pharmacy) 1 each PRN DAILY PRN 09/25/18 09:30 09/25/18 15:51 1 EACH Vancomycin HCl (Vancomycin Random Level) 1 each 1X ONCE 09/26/18 06:00 09/26/18 06:02 DC 09/26/18 05:35 1 EACH Vancomycin HCl 1.75 gm/Sodium Chloride 500 ml @ 250 mls/hr 1X ONCE 09/25/18 09:45 09/25/18 11:44 DC 09/25/18 10:25 250 MLS/HR Vasopressin 40 unit/Dextrose 102 ml @ 6 mls/hr CONT PRN 09/25/18 13:15 09/26/18 04:12 6 MLS/HR Labs: Lab Laboratory Tests Test 09/25/18 08:35 09/25/18 08:55 09/25/18 17:00 09/25/18 23:30 White Blood Count 8.6 x10^3/uL (4.0-11.0) Red Blood Count 3.01 x10^6/uL (4.30-5.70) Hemoglobin 11.4 g/dL (13.0-17.5) Hematocrit 33.3 % (39.0-53.0) Mean Corpuscular Volume 111 fL (79-100) Mean Corpuscular Hemoglobin 38 pg (25-35) Mean Corpuscular Hemoglobin Concent 34 g/dL (31-37) Red Cell Distribution Width 15.7 % (11.5-14.5) Platelet Count 81 x10^3/uL (140-400) Neutrophils (%) (Auto) 84 % (31-73) Lymphocytes (%) (Auto) 10 % (24-48) Monocytes (%) (Auto) 5 % (0-9) Eosinophils (%) (Auto) 1 % (0-3) Basophils (%) (Auto) 1 % (0-3) Neutrophils # (Auto) 7.3 x10^3uL (1.8-7.7) Lymphocytes # (Auto) 0.8 x10^3/uL (1.0-4.8) Monocytes # (Auto) 0.4 x10^3/uL (0.0-1.1) Eosinophils # (Auto) 0.1 x10^3/uL (0.0-0.7) Basophils # (Auto) 0.0 x10^3/uL (0.0-0.2) Platelet Estimate Decreased (ADEQUATE) Large Platelets Present Anisocytosis Slight Macrocytosis Present Prothrombin Time 16.5 SEC (11.7-14.0) Prothromb Time International Ratio 1.4 (0.8-1.1) Sodium Level 139 mmol/L (136-145) Potassium Level 4.2 mmol/L (3.5-5.1) Chloride Level 100 mmol/L (98-107) Carbon Dioxide Level 29 mmol/L (21-32) Anion Gap 10 (6-14) Blood Urea Nitrogen 56 mg/dL (8-26) Creatinine 6.0 mg/dL (0.7-1.3) Estimated GFR (Cockcroft-Gault) 9.0 BUN/Creatinine Ratio 9 (6-20) Glucose Level 108 mg/dL (70-99) Lactic Acid Level 1.6 mmol/L (0.4-2.0) Calcium Level 9.2 mg/dL (8.5-10.1) Total Bilirubin 1.7 mg/dL (0.2-1.0) Aspartate Amino Transf (AST/SGOT) 40 U/L (15-37) Alanine Aminotransferase (ALT/SGPT) 24 U/L (16-63) Alkaline Phosphatase 244 U/L (46-116) Troponin I Quantitative 0.051 ng/mL (0.000-0.055) [id number]-Type Natriuretic Peptide 7114 pg/mL (0-449) Total Protein 7.4 g/dL (6.4-8.2) Albumin 2.7 g/dL (3.4-5.0) Albumin/Globulin Ratio 0.6 (1.0-1.7) O2 Saturation 97 % (92-99) Arterial Blood pH 7.43 (7.35-7.45) Arterial Blood pCO2 at Patient Temp 40 mmHg (35-46) Arterial Blood pO2 at Patient Temp 103 mmHg (65-108) Arterial Blood HCO3 26 mmol/L (21-28) Arterial Blood Base Excess 2 mmol/L (-3-3) FiO2 36.0 Glucose (Fingerstick) 108 mg/dL (70-99) 92 mg/dL (70-99) Test 09/26/18 05:10 09/26/18 05:13 White Blood Count 10.4 x10^3/uL (4.0-11.0) Red Blood Count 3.35 x10^6/uL (4.30-5.70) Hemoglobin 12.7 g/dL (13.0-17.5) Hematocrit 36.8 % (39.0-53.0) Mean Corpuscular Volume 110 fL (79-100) Mean Corpuscular Hemoglobin 38 pg (25-35) Mean Corpuscular Hemoglobin Concent 34 g/dL (31-37) Red Cell Distribution Width 15.6 % (11.5-14.5) Platelet Count 98 x10^3/uL (140-400) Neutrophils (%) (Auto) 85 % (31-73) Lymphocytes (%) (Auto) 9 % (24-48) Monocytes (%) (Auto) 6 % (0-9) Eosinophils (%) (Auto) 1 % (0-3) Basophils (%) (Auto) 0 % (0-3) Neutrophils # (Auto) 8.9 x10^3uL (1.8-7.7) Lymphocytes # (Auto) 0.9 x10^3/uL (1.0-4.8) Monocytes # (Auto) 0.6 x10^3/uL (0.0-1.1) Eosinophils # (Auto) 0.1 x10^3/uL (0.0-0.7) Basophils # (Auto) 0.0 x10^3/uL (0.0-0.2) Sodium Level 137 mmol/L (136-145) Potassium Level 5.5 mmol/L (3.5-5.1) Chloride Level 101 mmol/L (98-107) Carbon Dioxide Level 23 mmol/L (21-32) Anion Gap 13 (6-14) Blood Urea Nitrogen 66 mg/dL (8-26) Creatinine 6.6 mg/dL (0.7-1.3) Estimated GFR (Cockcroft-Gault) 8.1 Glucose Level 141 mg/dL (70-99) Calcium Level 8.4 mg/dL (8.5-10.1) Random Vancomycin Level 20.3 mcg/mL Glucose (Fingerstick) 131 mg/dL (70-99) Objective: Assessment: Consult dictated [id number] IMP: Sepsis Acute hypoxic resp failure suspected PNA Lt pleural effusion ESRD Plan: Plan of Care cont vanc and zosyn f/u labs and cults cont supportive care Thank you CHINA UPTON MD Sep 26, 2018 07:44
--- NOTE | 2018-09-26 07:53 | PDOC2 ---
PALLIATIVE CARE Palliative Care Note Palliative Care Consult requested by Dr. Gilmore to address goals of care. Dr. Gilmore has spoke with . Wants full aggressive care for now. Medical Assessment per medical record AMS, metabolic encephalopathy with resp failure, sepsis left side possible PNA and pleural effusion acute hypoxic resp failure requiring bipap acute on chronic diastolic CHF h/o cad with CABG pafib with PPM hypotension, sepsis, required pressors dm2 on insulin h/o HTN ged hld ESRD ON HD ttsat chronic anemia recent CAP non compliance with CPAP AT home severe malnutrition Will arrange family meeting Tuesday to address goals of care. JOSE CAGE Sep 26, 2018 07:53
[2018-09-26] MEDS: INSULIN LISPRO 300 UNITS/3 ML INSULN.PEN. SQ SCH ×3 (08:00→16:48)
--- NOTE | 2018-09-26 11:06 | PDOC ---
PULMONARY PROGRESS NOTES Subjective remains on BIPAP awake, follows commands on levophed Vitals Vital Signs Date Time Temp Pulse Resp B/P (MAP) Pulse Ox O2 Delivery O2 Flow Rate FiO2 09/26/18 11:00 108 18 110/67 (81) 100 BiPAP/CPAP 09/26/18 08:00 97.5 97.5 09/25/18 08:55 4.0 General: Alert, No acute distress HEENT: Other Lungs: Other (few rhonchi) Cardiovascular: S1 Abdomen: Soft Neuro Exam: Alert Extremities: Other (trace edema) Skin: Warm Labs Laboratory Tests Test 09/25/18 08:35 09/25/18 08:55 09/25/18 13:00 09/25/18 17:00 White Blood Count 8.6 x10^3/uL (4.0-11.0) Red Blood Count 3.01 x10^6/uL (4.30-5.70) Hemoglobin 11.4 g/dL (13.0-17.5) Hematocrit 33.3 % (39.0-53.0) Mean Corpuscular Volume 111 fL (79-100) Mean Corpuscular Hemoglobin 38 pg (25-35) Mean Corpuscular Hemoglobin Concent 34 g/dL (31-37) Red Cell Distribution Width 15.7 % (11.5-14.5) Platelet Count 81 x10^3/uL (140-400) Neutrophils (%) (Auto) 84 % (31-73) Lymphocytes (%) (Auto) 10 % (24-48) Monocytes (%) (Auto) 5 % (0-9) Eosinophils (%) (Auto) 1 % (0-3) Basophils (%) (Auto) 1 % (0-3) Neutrophils # (Auto) 7.3 x10^3uL (1.8-7.7) Lymphocytes # (Auto) 0.8 x10^3/uL (1.0-4.8) Monocytes # (Auto) 0.4 x10^3/uL (0.0-1.1) Eosinophils # (Auto) 0.1 x10^3/uL (0.0-0.7) Basophils # (Auto) 0.0 x10^3/uL (0.0-0.2) Platelet Estimate Decreased (ADEQUATE) Large Platelets Present Anisocytosis Slight Macrocytosis Present Prothrombin Time 16.5 SEC (11.7-14.0) Prothromb Time International Ratio 1.4 (0.8-1.1) Sodium Level 139 mmol/L (136-145) Potassium Level 4.2 mmol/L (3.5-5.1) Chloride Level 100 mmol/L (98-107) Carbon Dioxide Level 29 mmol/L (21-32) Anion Gap 10 (6-14) Blood Urea Nitrogen 56 mg/dL (8-26) Creatinine 6.0 mg/dL (0.7-1.3) Estimated GFR (Cockcroft-Gault) 9.0 BUN/Creatinine Ratio 9 (6-20) Glucose Level 108 mg/dL (70-99) Lactic Acid Level 1.6 mmol/L (0.4-2.0) Calcium Level 9.2 mg/dL (8.5-10.1) Total Bilirubin 1.7 mg/dL (0.2-1.0) Aspartate Amino Transf (AST/SGOT) 40 U/L (15-37) Alanine Aminotransferase (ALT/SGPT) 24 U/L (16-63) Alkaline Phosphatase 244 U/L (46-116) Troponin I Quantitative 0.051 ng/mL (0.000-0.055) [id number]-Type Natriuretic Peptide 7114 pg/mL (0-449) Total Protein 7.4 g/dL (6.4-8.2) Albumin 2.7 g/dL (3.4-5.0) Albumin/Globulin Ratio 0.6 (1.0-1.7) O2 Saturation 97 % (92-99) Arterial Blood pH 7.43 (7.35-7.45) Arterial Blood pCO2 at Patient Temp 40 mmHg (35-46) Arterial Blood pO2 at Patient Temp 103 mmHg (65-108) Arterial Blood HCO3 26 mmol/L (21-28) Arterial Blood Base Excess 2 mmol/L (-3-3) FiO2 36.0 Nasal Screen MRSA (PCR) Negative (Negative) Glucose (Fingerstick) 108 mg/dL (70-99) Test 09/25/18 23:30 09/26/18 05:10 09/26/18 05:13 Glucose (Fingerstick) 92 mg/dL (70-99) 131 mg/dL (70-99) White Blood Count 10.4 x10^3/uL (4.0-11.0) Red Blood Count 3.35 x10^6/uL (4.30-5.70) Hemoglobin 12.7 g/dL (13.0-17.5) Hematocrit 36.8 % (39.0-53.0) Mean Corpuscular Volume 110 fL (79-100) Mean Corpuscular Hemoglobin 38 pg (25-35) Mean Corpuscular Hemoglobin Concent 34 g/dL (31-37) Red Cell Distribution Width 15.6 % (11.5-14.5) Platelet Count 98 x10^3/uL (140-400) Neutrophils (%) (Auto) 85 % (31-73) Lymphocytes (%) (Auto) 9 % (24-48) Monocytes (%) (Auto) 6 % (0-9) Eosinophils (%) (Auto) 1 % (0-3) Basophils (%) (Auto) 0 % (0-3) Neutrophils # (Auto) 8.9 x10^3uL (1.8-7.7) Lymphocytes # (Auto) 0.9 x10^3/uL (1.0-4.8) Monocytes # (Auto) 0.6 x10^3/uL (0.0-1.1) Eosinophils # (Auto) 0.1 x10^3/uL (0.0-0.7) Basophils # (Auto) 0.0 x10^3/uL (0.0-0.2) Sodium Level 137 mmol/L (136-145) Potassium Level 5.5 mmol/L (3.5-5.1) Chloride Level 101 mmol/L (98-107) Carbon Dioxide Level 23 mmol/L (21-32) Anion Gap 13 (6-14) Blood Urea Nitrogen 66 mg/dL (8-26) Creatinine 6.6 mg/dL (0.7-1.3) Estimated GFR (Cockcroft-Gault) 8.1 Glucose Level 141 mg/dL (70-99) Calcium Level 8.4 mg/dL (8.5-10.1) Random Vancomycin Level 20.3 mcg/mL Laboratory Tests Test 09/25/18 13:00 09/25/18 17:00 09/25/18 23:30 09/26/18 05:10 Nasal Screen MRSA (PCR) Negative (Negative) Glucose (Fingerstick) 108 mg/dL (70-99) 92 mg/dL (70-99) White Blood Count 10.4 x10^3/uL (4.0-11.0) Red Blood Count 3.35 x10^6/uL (4.30-5.70) Hemoglobin 12.7 g/dL (13.0-17.5) Hematocrit 36.8 % (39.0-53.0) Mean Corpuscular Volume 110 fL (79-100) Mean Corpuscular Hemoglobin 38 pg (25-35) Mean Corpuscular Hemoglobin Concent 34 g/dL (31-37) Red Cell Distribution Width 15.6 % (11.5-14.5) Platelet Count 98 x10^3/uL (140-400) Neutrophils (%) (Auto) 85 % (31-73) Lymphocytes (%) (Auto) 9 % (24-48) Monocytes (%) (Auto) 6 % (0-9) Eosinophils (%) (Auto) 1 % (0-3) Basophils (%) (Auto) 0 % (0-3) Neutrophils # (Auto) 8.9 x10^3uL (1.8-7.7) Lymphocytes # (Auto) 0.9 x10^3/uL (1.0-4.8) Monocytes # (Auto) 0.6 x10^3/uL (0.0-1.1) Eosinophils # (Auto) 0.1 x10^3/uL (0.0-0.7) Basophils # (Auto) 0.0 x10^3/uL (0.0-0.2) Sodium Level 137 mmol/L (136-145) Potassium Level 5.5 mmol/L (3.5-5.1) Chloride Level 101 mmol/L (98-107) Carbon Dioxide Level 23 mmol/L (21-32) Anion Gap 13 (6-14) Blood Urea Nitrogen 66 mg/dL (8-26) Creatinine 6.6 mg/dL (0.7-1.3) Estimated GFR (Cockcroft-Gault) 8.1 Glucose Level 141 mg/dL (70-99) Calcium Level 8.4 mg/dL (8.5-10.1) Random Vancomycin Level 20.3 mcg/mL Test 09/26/18 05:13 Glucose (Fingerstick) 131 mg/dL (70-99) Medications Active Scripts Medications Dose Route/Sig Max Daily Dose Days Date Category Humalog (Insulin Lispro) 100 Unit/1 Ml Insuln.pen 10 Units SQ TIDWMEALS 30 08/14/18 Rx Haloperidol 2 Mg Tablet 0.5 Tab PO Q12HR 08/14/18 Rx Lantus Solostar (Insulin Glargine,Hum.rec.anlog) 100 Unit/1 Ml Insuln.pen 24 Unit SQ QHS 30 08/14/18 Rx Alprazolam 0.5 Mg Tablet 1 Tab PO HS PRN 08/14/18 Rx Tamsulosin Hcl 0.4 Mg Cap.er.24h 0.8 Mg PO DAILY 08/11/18 Reported Spironolactone 25 Mg Tablet 1 Tab PO DAILY 08/11/18 Reported Senokot (Sennosides) 8.6 Mg Tablet 1 Tab PO BID 08/11/18 Reported Requip (Ropinirole Hcl) 1 Mg Tablet 1 Tab PO QHS 08/11/18 Reported Lyrica (Pregabalin) 75 Mg Capsule 1 Cap PO BID 08/11/18 Reported Super Enzyme Caps (Pancreat/Bet Hcl/Pep/Brom/Pap) 1 Each Capsule 4 Cap PO QID 08/11/18 Reported Magnesium Oxide 400 Mg Tablet 1 Tab PO DAILY 08/11/18 Reported Gemfibrozil 600 Mg Tablet 1 Tab PO BIDWMEALS 08/11/18 Reported Folic Acid 1 Mg Tablet 1 Tab PO DAILY 08/11/18 Reported Fish Oil 1,000 Mg Capsule ([place]-3 Fatty Acids/Fish Oil) 1 Each Capsule 2,000 Each PO BID 08/11/18 Reported Cyclobenzaprine Hcl 10 Mg Tablet 1 Tab PO BID 08/11/18 Reported Irina Elias 6,000 Units Capsule (Lipase/Protease/Amylase) 1 Each Capsule.dr 1 Each PO QID 08/11/18 Reported Vitamin D3 (Cholecalciferol (Vitamin D3)) 1,000 Unit Tablet 3 Tab PO DAILY 08/11/18 Reported Aspirin Ec (Aspirin) 81 Mg Tablet.dr 1 Tab PO DAILY 08/11/18 Reported Acetaminophen 500 Mg Tablet 1,000 Mg PO PRN DAILY PRN 08/11/18 Reported Midodrine Hcl 5 Mg Tablet 5 Mg PO 3X/WEEK 06/06/18 Reported Hydroxyzine Hcl 25 Mg Tablet 25 Mg PO QID 06/06/18 Reported Calcium Acetate 667 Mg Tablet 2 Cap PO BIDAC 06/06/18 Reported Prevalite Packet (Cholestyramine/Aspartame) 4 Gm Powd.pack 4 Gm PO BID 06/06/18 Reported Toprol Xl (Metoprolol Succinate) 25 Mg Tab.er.24h 1 Tab PO DAILY 06/06/18 Reported Furosemide 40 Mg Tablet 2 Tab PO DAILY 06/06/18 Reported Diltiazem 24HR Cd (Diltiazem Hcl) 120 Mg Cap.er.24h 1 Cap PO DAILY 06/06/18 Reported Percocet 5-325 Mg Tablet (Oxycodone/Acetaminophen) 1 Each Tablet 1 Tab PO QID 06/06/17 Reported Humalog (Insulin Lispro) 100 Unit/1 Ml Cartridge 8 Unit SQ TIDAC 06/06/17 Reported Prilosec Otc (Omeprazole Magnesium) 20 Mg Tablet.dr 20 Mg PO DAILY 11/20/14 Reported Impression . 1. Acute respiratory failure. 2. Sepsis/ septic shock. secondary to pneumonia. 3. Coronary artery disease with previous coronary artery bypass grafting. 4. Acute metabolic toxic encephalopathy, present upon admission. 5. Protein malnutrition present upon admission. 6. Status post pacemaker. 7. Peripheral vascular disease. 8. Abnormal cxr with LLL infiltrate/ effusion Plan . 1. We will continue current support with BiPAP. 2. IV antibiotics to cover both gram-negative and gram-positive organisms. 3. ID recommendations 4. Follow clinical course and make further recommendations. 5. f/u cxr as needed 6. HD 7. wean off pressor 8. d/w RN/RT discussed advance directives with . Per his wishes he does not want to be on life support. I concur. DNR/DNI CCT 30 MIN MAZIN CROWLEY MD Sep 26, 2018 11:06
--- NOTE | 2018-09-26 11:29 | PDOC ---
PROGRESS NOTES Chief Complaint Chief Complaint Acute respiratory failure on BiPAP Sepsis/ septic shock, secondary to pneumonia Coronary artery disease with previous coronary artery bypass grafting Acute metabolic toxic encephalopathy, present upon admission Protein malnutrition present upon admission Status post pacemaker Peripheral vascular disease Abnormal cxr with LLL infiltrate/ effusion Hyperkalemia History of Present Illness History of Present Illness Pt seen and examined in ICU Laying in bed, BiPAP FiO2 of 30% at rate of 16 Discussed with RN Vitals Vitals Vital Signs Date Time Temp Pulse Resp B/P (MAP) Pulse Ox O2 Delivery O2 Flow Rate FiO2 09/26/18 11:00 108 18 110/67 (81) 100 BiPAP/CPAP 09/26/18 08:00 97.5 97.5 09/25/18 08:55 4.0 Physical Exam General: Other (laying in bed on BiPAP) Heart: Regular rate, Normal S1, Normal S2 Lungs: Other (few rhonchi, BiPAP FiO2 of 30% at rate of 16) Abdomen: Soft, No masses Extremities: No clubbing, No cyanosis Skin: No rashes, No breakdown Labs LABS Laboratory Tests Test 09/25/18 13:00 09/25/18 17:00 09/25/18 23:30 09/26/18 05:10 Nasal Screen MRSA (PCR) Negative (Negative) Glucose (Fingerstick) 108 mg/dL (70-99) 92 mg/dL (70-99) White Blood Count 10.4 x10^3/uL (4.0-11.0) Red Blood Count 3.35 x10^6/uL (4.30-5.70) Hemoglobin 12.7 g/dL (13.0-17.5) Hematocrit 36.8 % (39.0-53.0) Mean Corpuscular Volume 110 fL (79-100) Mean Corpuscular Hemoglobin 38 pg (25-35) Mean Corpuscular Hemoglobin Concent 34 g/dL (31-37) Red Cell Distribution Width 15.6 % (11.5-14.5) Platelet Count 98 x10^3/uL (140-400) Neutrophils (%) (Auto) 85 % (31-73) Lymphocytes (%) (Auto) 9 % (24-48) Monocytes (%) (Auto) 6 % (0-9) Eosinophils (%) (Auto) 1 % (0-3) Basophils (%) (Auto) 0 % (0-3) Neutrophils # (Auto) 8.9 x10^3uL (1.8-7.7) Lymphocytes # (Auto) 0.9 x10^3/uL (1.0-4.8) Monocytes # (Auto) 0.6 x10^3/uL (0.0-1.1) Eosinophils # (Auto) 0.1 x10^3/uL (0.0-0.7) Basophils # (Auto) 0.0 x10^3/uL (0.0-0.2) Sodium Level 137 mmol/L (136-145) Potassium Level 5.5 mmol/L (3.5-5.1) Chloride Level 101 mmol/L (98-107) Carbon Dioxide Level 23 mmol/L (21-32) Anion Gap 13 (6-14) Blood Urea Nitrogen 66 mg/dL (8-26) Creatinine 6.6 mg/dL (0.7-1.3) Estimated GFR (Cockcroft-Gault) 8.1 Glucose Level 141 mg/dL (70-99) Calcium Level 8.4 mg/dL (8.5-10.1) Random Vancomycin Level 20.3 mcg/mL Test 09/26/18 05:13 Glucose (Fingerstick) 131 mg/dL (70-99) Review of Systems Review of Systems Pt on BiPAP. Unable to obtain. Assessment and Plan Assessmemt and Plan Problems Medical Problems: (1) Pneumonia Status: Acute Assessment: Acute respiratory failure on BiPAP Sepsis/ septic shock, secondary to pneumonia Coronary artery disease with previous coronary artery bypass grafting Acute metabolic toxic encephalopathy, present upon admission Protein malnutrition present upon admission Status post pacemaker Peripheral vascular disease Abnormal cxr with LLL infiltrate/ effusion Hyperkalemia Plan: ICU monitoring Labs Pressors, levophed and vasopressin PT/OT Abx BiPAP FiO2 of 30% at rate of 16 Hyperkalemia and HD management per nephrology DVT ppx Family meeting scheduled for Tuesday Comment Review of Relevant I have reviewed the following items sarah (where applicable) has been applied. Labs Laboratory Tests Test 09/25/18 08:35 09/25/18 08:55 09/25/18 13:00 09/25/18 17:00 White Blood Count 8.6 x10^3/uL (4.0-11.0) Red Blood Count 3.01 x10^6/uL (4.30-5.70) Hemoglobin 11.4 g/dL (13.0-17.5) Hematocrit 33.3 % (39.0-53.0) Mean Corpuscular Volume 111 fL (79-100) Mean Corpuscular Hemoglobin 38 pg (25-35) Mean Corpuscular Hemoglobin Concent 34 g/dL (31-37) Red Cell Distribution Width 15.7 % (11.5-14.5) Platelet Count 81 x10^3/uL (140-400) Neutrophils (%) (Auto) 84 % (31-73) Lymphocytes (%) (Auto) 10 % (24-48) Monocytes (%) (Auto) 5 % (0-9) Eosinophils (%) (Auto) 1 % (0-3) Basophils (%) (Auto) 1 % (0-3) Neutrophils # (Auto) 7.3 x10^3uL (1.8-7.7) Lymphocytes # (Auto) 0.8 x10^3/uL (1.0-4.8) Monocytes # (Auto) 0.4 x10^3/uL (0.0-1.1) Eosinophils # (Auto) 0.1 x10^3/uL (0.0-0.7) Basophils # (Auto) 0.0 x10^3/uL (0.0-0.2) Platelet Estimate Decreased (ADEQUATE) Large Platelets Present Anisocytosis Slight Macrocytosis Present Prothrombin Time 16.5 SEC (11.7-14.0) Prothromb Time International Ratio 1.4 (0.8-1.1) Sodium Level 139 mmol/L (136-145) Potassium Level 4.2 mmol/L (3.5-5.1) Chloride Level 100 mmol/L (98-107) Carbon Dioxide Level 29 mmol/L (21-32) Anion Gap 10 (6-14) Blood Urea Nitrogen 56 mg/dL (8-26) Creatinine 6.0 mg/dL (0.7-1.3) Estimated GFR (Cockcroft-Gault) 9.0 BUN/Creatinine Ratio 9 (6-20) Glucose Level 108 mg/dL (70-99) Lactic Acid Level 1.6 mmol/L (0.4-2.0) Calcium Level 9.2 mg/dL (8.5-10.1) Total Bilirubin 1.7 mg/dL (0.2-1.0) Aspartate Amino Transf (AST/SGOT) 40 U/L (15-37) Alanine Aminotransferase (ALT/SGPT) 24 U/L (16-63) Alkaline Phosphatase 244 U/L (46-116) Troponin I Quantitative 0.051 ng/mL (0.000-0.055) QY-Ngr-R-Type Natriuretic Peptide 7114 pg/mL (0-449) Total Protein 7.4 g/dL (6.4-8.2) Albumin 2.7 g/dL (3.4-5.0) Albumin/Globulin Ratio 0.6 (1.0-1.7) O2 Saturation 97 % (92-99) Arterial Blood pH 7.43 (7.35-7.45) Arterial Blood pCO2 at Patient Temp 40 mmHg (35-46) Arterial Blood pO2 at Patient Temp 103 mmHg (65-108) Arterial Blood HCO3 26 mmol/L (21-28) Arterial Blood Base Excess 2 mmol/L (-3-3) FiO2 36.0 Nasal Screen MRSA (PCR) Negative (Negative) Glucose (Fingerstick) 108 mg/dL (70-99) Test 09/25/18 23:30 09/26/18 05:10 09/26/18 05:13 Glucose (Fingerstick) 92 mg/dL (70-99) 131 mg/dL (70-99) White Blood Count 10.4 x10^3/uL (4.0-11.0) Red Blood Count 3.35 x10^6/uL (4.30-5.70) Hemoglobin 12.7 g/dL (13.0-17.5) Hematocrit 36.8 % (39.0-53.0) Mean Corpuscular Volume 110 fL (79-100) Mean Corpuscular Hemoglobin 38 pg (25-35) Mean Corpuscular Hemoglobin Concent 34 g/dL (31-37) Red Cell Distribution Width 15.6 % (11.5-14.5) Platelet Count 98 x10^3/uL (140-400) Neutrophils (%) (Auto) 85 % (31-73) Lymphocytes (%) (Auto) 9 % (24-48) Monocytes (%) (Auto) 6 % (0-9) Eosinophils (%) (Auto) 1 % (0-3) Basophils (%) (Auto) 0 % (0-3) Neutrophils # (Auto) 8.9 x10^3uL (1.8-7.7) Lymphocytes # (Auto) 0.9 x10^3/uL (1.0-4.8) Monocytes # (Auto) 0.6 x10^3/uL (0.0-1.1) Eosinophils # (Auto) 0.1 x10^3/uL (0.0-0.7) Basophils # (Auto) 0.0 x10^3/uL (0.0-0.2) Sodium Level 137 mmol/L (136-145) Potassium Level 5.5 mmol/L (3.5-5.1) Chloride Level 101 mmol/L (98-107) Carbon Dioxide Level 23 mmol/L (21-32) Anion Gap 13 (6-14) Blood Urea Nitrogen 66 mg/dL (8-26) Creatinine 6.6 mg/dL (0.7-1.3) Estimated GFR (Cockcroft-Gault) 8.1 Glucose Level 141 mg/dL (70-99) Calcium Level 8.4 mg/dL (8.5-10.1) Random Vancomycin Level 20.3 mcg/mL Laboratory Tests Test 09/25/18 13:00 09/25/18 17:00 09/25/18 23:30 09/26/18 05:10 Nasal Screen MRSA (PCR) Negative (Negative) Glucose (Fingerstick) 108 mg/dL (70-99) 92 mg/dL (70-99) White Blood Count 10.4 x10^3/uL (4.0-11.0) Red Blood Count 3.35 x10^6/uL (4.30-5.70) Hemoglobin 12.7 g/dL (13.0-17.5) Hematocrit 36.8 % (39.0-53.0) Mean Corpuscular Volume 110 fL (79-100) Mean Corpuscular Hemoglobin 38 pg (25-35) Mean Corpuscular Hemoglobin Concent 34 g/dL (31-37) Red Cell Distribution Width 15.6 % (11.5-14.5) Platelet Count 98 x10^3/uL (140-400) Neutrophils (%) (Auto) 85 % (31-73) Lymphocytes (%) (Auto) 9 % (24-48) Monocytes (%) (Auto) 6 % (0-9) Eosinophils (%) (Auto) 1 % (0-3) Basophils (%) (Auto) 0 % (0-3) Neutrophils # (Auto) 8.9 x10^3uL (1.8-7.7) Lymphocytes # (Auto) 0.9 x10^3/uL (1.0-4.8) Monocytes # (Auto) 0.6 x10^3/uL (0.0-1.1) Eosinophils # (Auto) 0.1 x10^3/uL (0.0-0.7) Basophils # (Auto) 0.0 x10^3/uL (0.0-0.2) Sodium Level 137 mmol/L (136-145) Potassium Level 5.5 mmol/L (3.5-5.1) Chloride Level 101 mmol/L (98-107) Carbon Dioxide Level 23 mmol/L (21-32) Anion Gap 13 (6-14) Blood Urea Nitrogen 66 mg/dL (8-26) Creatinine 6.6 mg/dL (0.7-1.3) Estimated GFR (Cockcroft-Gault) 8.1 Glucose Level 141 mg/dL (70-99) Calcium Level 8.4 mg/dL (8.5-10.1) Random Vancomycin Level 20.3 mcg/mL Test 09/26/18 05:13 Glucose (Fingerstick) 131 mg/dL (70-99) Microbiology 09/25/18 Blood Culture - Preliminary, Resulted NO GROWTH AFTER 1 DAY Medications Current Medications Naloxone HCl (Narcan) 0.2 mg 1X ONCE IV Last administered on 09/25/18at 08:47 ; Start 09/25/18 at 08:45; Stop 09/25/18 at 08:46; Status DC Sodium Chloride 500 ml @ 500 mls/hr 1X ONCE IV Last administered on at 08:49; Start 09/25/18 at 08:45; Stop 09/25/18 at 09:44; Status DC Vancomycin HCl (Vanco Per Pharmacy) 1 each PRN DAILY PRN MC SEE COMMENTS Last administered on 09/25/18at 15:51; Start 09/25/18 at 09:30 Piperacillin Sod/ Tazobactam Sod (Zosyn Per Pharmacy) 1 each PRN DAILY PRN MC SEE COMMENTS; Start 09/25/18 at 09:30 Piperacillin Sod/ Tazobactam Sod 2.25 gm/Sodium Chloride 50 ml @ 100 mls/hr 1X ONCE IV Last administered on 09/25/18at 09:48; Start 09/25/18 at 09:30; Stop 09/25/18 at 09:59; Status DC Vancomycin HCl 1.75 gm/Sodium Chloride 500 ml @ 250 mls/hr 1X ONCE IV Last administered on 09/25/18at 10:25; Start 09/25/18 at 09:45; Stop 09/25/18 at 11 :44; Status DC Sodium Chloride 500 ml @ 500 mls/hr 1X ONCE IV Last administered on at 09:48; Start 09/25/18 at 09:45; Stop 09/25/18 at 10:44; Status DC Sodium Chloride 500 ml @ 500 mls/hr 1X ONCE IV Last administered on at 11:16; Start 09/25/18 at 10:30; Stop 09/25/18 at 11:29; Status DC Norepinephrine Bitartrate 250 ml @ 0 mls/hr 1X ONCE IV Last administered on at 11:13; Start 09/25/18 at 10:30; Stop 09/25/18 at 14:39; Status DC Lidocaine HCl (Lidocaine 1% 20ml Vial) 20 ml STK-MED ONCE .ROUTE ; Start at 10:41; Stop 09/25/18 at 10:42; Status DC Vasopressin 40 unit/Dextrose 102 ml @ 6 mls/hr CONT PRN IV SEE I/O RECORD Last administered on 09/26/18at 04:12; Start 09/25/18 at 13:15 Norepinephrine Bitartrate 250 ml @ 9.375 mls/ hr CONT PRN IV SEE I/O RECORD Last administered on 09/25/18at 19:33; Start 09/25/18 at 14:45 Piperacillin Sod/ Tazobactam Sod 2.25 gm/Sodium Chloride 50 ml @ 100 mls/hr Q8HRS IV Last administered on 09/26/18at 05:48; Start 09/25/18 at 16:00 Vancomycin HCl (Vancomycin Random Level) 1 each 1X ONCE MC Last administered on 09/26/18at 05:35; Start 09/26/18 at 06:00; Stop 09/26/18 at 06:02; Status DC Acetaminophen (Tylenol) 650 mg PRN Q6HRS PRN PO FEVER; Start 09/25/18 at 16:30 Ondansetron HCl (Zofran) 4 mg PRN Q6HRS PRN IV NAUSEA/VOMITING; Start at 16:30 Docusate Sodium (Colace) 100 mg PRN DAILY PRN PO CONSTIPATION; Start 09/25/18 at 16:30 Sodium Chloride 1,000 ml @ 75 mls/hr [id number] IV Last administered on at 05:51; Start 09/25/18 at 16:30 Famotidine (Pepcid Vial) 20 mg Q48H IVP Last administered on 09/25/18at 21:22; Start 09/25/18 at 21:00 Heparin Sodium (Porcine) (Heparin Sodium) 5,000 unit Q8HRS SQ Last administered on 09/26/18at 05:51; Start 09/25/18 at 22:00 Insulin Human Lispro (HumaLOG) 0-7 UNITS TIDWMEALS SQ ; Start 09/25/18 at 17:00 Dextrose (Dextrose 50%-Water Syringe) 12.5 gm PRN Q15MIN PRN IV SEE COMMENTS; Start 09/25/18 at 16:30 Albuterol/ Ipratropium (Duoneb) 3 ml RTQID NEB Last administered on 09/25/18at 19:27; Start 09/25/18 at 20:00 Albuterol Sulfate (Ventolin Neb Soln) 2.5 mg PRN Q2HR PRN NEB SHORTNESS OF BREATH; Start 09/25/18 at 16:30 Guaifenesin (Mucinex) 600 mg BID PO ; Start 09/25/18 at 21:00 Sodium Chloride 1,000 ml @ 1,000 mls/hr Q1H PRN IV hypotension; Start at 06:43; Stop 09/26/18 at 12:42 Albumin Human 200 ml @ 200 mls/hr 1X PRN PRN IV Hypotension; Start 09/26/18 at 06:45; Stop 09/26/18 at 12:44 Sodium Chloride (Normal Saline Flush) 10 ml 1X PRN PRN IV AP 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; Start 09/26/18 at 06:45; Stop 09/27/18 at 06:44 Sodium Chloride (Normal Saline Flush) 10 ml 1X PRN PRN IV COOLING PAN TENDER 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; Start 09/26/18 at 06:45; Stop 09/27/18 at 06:44 Sodium Chloride 1,000 ml @ 400 mls/hr Q2H30M PRN IV PATENCY; Start 09/26/18 at 06:43; Stop 09/26/18 at 18:42 Info (PHARMACY MONITORING -- do not chart) 1 each PRN DAILY PRN MC SEE COMMENTS ; Start 09/26/18 at 06:45; Status UNV Info (PHARMACY MONITORING -- do not chart) 1 each PRN DAILY PRN MC SEE COMMENTS ; Start 09/26/18 at 06:45 Active Scripts Active Humalog (Insulin Lispro) 100 Unit/1 Ml Insuln.pen 10 Units SQ TIDWMEALS 30 Days Haloperidol 2 Mg Tablet 0.5 Tab PO Q12HR Lantus Solostar (Insulin Glargine,Hum.rec.anlog) 100 Unit/1 Ml Insuln.pen 24 Unit SQ QHS 30 Days Alprazolam 0.5 Mg Tablet 1 Tab PO HS PRN Reported Tamsulosin Hcl 0.4 Mg Cap.er.24h 0.8 Mg PO DAILY Spironolactone 25 Mg Tablet 1 Tab PO DAILY Senokot (Sennosides) 8.6 Mg Tablet 1 Tab PO BID Requip (Ropinirole Hcl) 1 Mg Tablet 1 Tab PO QHS Lyrica (Pregabalin) 75 Mg Capsule 1 Cap PO BID Super Enzyme Caps (Pancreat/Bet Hcl/Pep/Brom/Pap) 1 Each Capsule 4 Cap PO QID Magnesium Oxide 400 Mg Tablet 1 Tab PO DAILY Gemfibrozil 600 Mg Tablet 1 Tab PO BIDWMEALS Folic Acid 1 Mg Tablet 1 Tab PO DAILY Fish Oil 1,000 Mg Capsule ([place]-3 Fatty Acids/Fish Oil) 1 Each Capsule 2,000 Each PO BID Cyclobenzaprine Hcl 10 Mg Tablet 1 Tab PO BID Irina Elias 6,000 Units Capsule (Lipase/Protease/Amylase) 1 Each Capsule.dr 1 Each PO QID Vitamin D3 (Cholecalciferol (Vitamin D3)) 1,000 Unit Tablet 3 Tab PO DAILY Aspirin Ec (Aspirin) 81 Mg Tablet.dr 1 Tab PO DAILY Acetaminophen 500 Mg Tablet 1,000 Mg PO PRN DAILY PRN Midodrine Hcl 5 Mg Tablet 5 Mg PO 3X/WEEK Hydroxyzine Hcl 25 Mg Tablet 25 Mg PO QID Calcium Acetate 667 Mg Tablet 2 Cap PO BIDAC Prevalite Packet (Cholestyramine/Aspartame) 4 Gm Powd.pack 4 Gm PO BID Toprol Xl (Metoprolol Succinate) 25 Mg Tab.er.24h 1 Tab PO DAILY Furosemide 40 Mg Tablet 2 Tab PO DAILY Diltiazem 24HR Cd (Diltiazem Hcl) 120 Mg Cap.er.24h 1 Cap PO DAILY Percocet 5-325 Mg Tablet (Oxycodone/Acetaminophen) 1 Each Tablet 1 Tab PO QID Humalog (Insulin Lispro) 100 Unit/1 Ml Cartridge 8 Unit SQ TIDAC Prilosec Otc (Omeprazole Magnesium) 20 Mg Tablet.dr 20 Mg PO DAILY Vitals/I & O Vital Sign - Last 24 Hours 09/25/18 09/25/18 09/25/18 09/25/18 11:30 11:45 12:00 12:15 Pulse 78 78 78 78 Resp 13 10 15 16 Pulse Ox 91 93 87 97 09/25/18 09/25/18 09/25/18 09/25/18 12:30 13:00 13:30 14:00 Temp 94.8 97.4 94.8 97.4 Pulse 78 79 79 Resp 12 16 16 B/P (MAP) 77/44 (55) 102/57 (72) Pulse Ox 95 92 100 O2 Delivery BiPAP/CPAP Bi-pap BiPAP/CPAP 09/25/18 09/25/18 09/25/18 09/25/18 15:00 15:57 16:00 16:00 Temp 98.9 98.9 Pulse 87 94 Resp 16 16 B/P (MAP) 106/52 (70) 113/54 (73) Pulse Ox 100 100 100 O2 Delivery BiPAP/CPAP BiPAP/CPAP Bi-pap BiPAP/CPAP 09/25/18 09/25/18 09/25/18 09/25/18 17:00 17:56 18:00 18:45 Pulse 99 99 90 Resp 16 16 B/P (MAP) 107/62 (77) 109/60 (76) 126/67 (86) Pulse Ox 100 100 100 O2 Delivery BiPAP/CPAP BiPAP/CPAP BiPAP/CPAP 09/25/18 09/25/18 09/25/18 09/25/18 19:00 19:15 19:28 19:30 Pulse 72 79 78 Resp 16 B/P (MAP) 127/61 (83) 110/55 (73) 107/56 (73) Pulse Ox 100 100 O2 Delivery BiPAP/CPAP BiPAP/CPAP 09/25/18 09/25/18 09/25/18 09/25/18 19:45 20:00 20:00 20:15 Temp 98.9 98.9 Pulse 80 80 78 Resp 17 B/P (MAP) 92/56 (68) 98/51 (67) 113/62 (79) Pulse Ox 99 O2 Delivery Bi-pap BiPAP/CPAP 09/25/18 09/25/18 09/25/18 09/25/18 20:30 20:45 21:00 22:00 Pulse 80 80 78 78 Resp 15 20 B/P (MAP) 95/56 (69) 102/56 (71) 91/56 (68) 104/57 (73) Pulse Ox 94 91 O2 Delivery BiPAP/CPAP BiPAP/CPAP 09/25/18 09/25/18 09/25/18 09/26/18 22:19 23:00 23:50 00:00 Pulse 78 Resp 16 B/P (MAP) 92/54 (67) Pulse Ox 100 96 100 O2 Delivery BiPAP/CPAP BiPAP/CPAP BiPAP/CPAP Bi-pap 09/26/18 09/26/18 09/26/18 09/26/18 00:00 01:00 01:45 01:55 Temp 98.5 98.5 Pulse 79 84 90 Resp 17 19 B/P (MAP) 90/54 (66) 106/57 (73) 76/47 (57) Pulse Ox 91 95 100 O2 Delivery BiPAP/CPAP BiPAP/CPAP BiPAP/CPAP 09/26/18 09/26/18 09/26/18 09/26/18 02:00 02:15 02:30 02:45 Pulse 91 87 88 94 Resp 19 B/P (MAP) 73/46 (55) 110/52 (71) 116/44 (68) 100/57 (71) Pulse Ox 93 O2 Delivery BiPAP/CPAP 09/26/18 09/26/18 09/26/18 09/26/18 03:00 03:54 04:00 04:00 Temp 98.2 98.2 Pulse 87 81 Resp 20 16 B/P (MAP) 93/57 (69) 107/58 (74) Pulse Ox 96 88 100 O2 Delivery BiPAP/CPAP BiPAP/CPAP Bi-pap BiPAP/CPAP 09/26/18 09/26/18 09/26/18 09/26/18 05:00 05:15 05:30 05:40 Pulse 84 92 99 Resp 16 B/P (MAP) 103/67 (79) 108/57 (74) 119/56 (77) Pulse Ox 100 95 O2 Delivery BiPAP/CPAP BiPAP/CPAP 09/26/18 09/26/18 09/26/18 09/26/18 05:45 06:00 06:15 07:03 Pulse 86 98 98 Resp 18 B/P (MAP) 78/37 (51) 95/55 (68) 95/55 (68) Pulse Ox 100 100 O2 Delivery BiPAP/CPAP BiPAP/CPAP 09/26/18 09/26/18 09/26/18 09/26/18 08:00 08:00 08:30 08:45 Temp 97.5 97.5 Pulse 99 87 Resp 18 19 B/P (MAP) 114/70 (85) 113/68 (83) Pulse Ox 100 100 99 O2 Delivery Bi-pap BiPAP/CPAP BiPAP/CPAP BiPAP/CPAP 09/26/18 09/26/18 09/26/18 09/26/18 09:00 10:00 10:40 11:00 Pulse 82 107 78 108 Resp 18 21 19 18 B/P (MAP) 114/70 (85) 110/57 (74) 119/67 (84) 110/67 (81) Pulse Ox 100 100 99 100 O2 Delivery BiPAP/CPAP BiPAP/CPAP BiPAP/CPAP BiPAP/CPAP Intake and Output 09/25/18 09/25/18 09/26/18 15:00 23:00 07:00 Intake Total 500 ml 392.42 ml 1246 ml Output Total 0 ml 0 ml 0 ml Balance 500 ml 392.42 ml 1246 ml CASTLE,NIAL K III DO Sep 26, 2018 11:29
--- NOTE | 2018-09-26 11:41 | PDOC2 ---
CONSULT Date of Consult Date of Consult DATE: 09/26/18 TIME: 11:27 Reason for Consult Reason for Consult: ESRD Source Source: Chart review History of Present Illness Reason for Visit: Patient is a 82 year old CM brought in with altered mental status and fall. He has had multiple Hospitalizations , most recently hospitalized - left side PNA and pleural effusion, was intubated and pressor in ICU. He is awke, c/o pain and is on Bipap As per Chart review - reported that he was doing ok till Tuesday and started to cough, sob, and very weak Pt ABG was ok, supposed to use CPAP at home but refuses. BP in ER was 70s ,up to 90s after 1L NS bolus, requring levophed. Last Dialysis Tuesday Past Medical History Cardiovascular: AFIB, CAD, HTN, Hyperlipidemia Pulmonary: Pneumonia, Other CENTRAL NERVOUS SYSTEM: Dementia GI: GERD, Peptic Ulcer disease Heme/Onc: Anemia NOS Hepatobiliary: No pertinent hx Psych: Anxiety, Depression Musculoskeletal: Osteoarthritis Rheumatologic: Other Infectious disease: No pertinent hx Renal/: Chronic renal failure Endocrine: Diabetes, Hyperparathyroidism Past Surgical History Past Surgical History: CABG, Other Family History Family History: Heart Disease, Family History Unknown Social History ALCOHOL: none Drugs: None Lives: with Family Domestic Violence: Neg Current Problem List Problem List Problems Medical Problems: (1) Pneumonia Status: Acute Current Medications Current Medications Current Medications Naloxone HCl (Narcan) 0.2 mg 1X ONCE IV Last administered on 09/25/18at 08:47 ; Start 09/25/18 at 08:45; Stop 09/25/18 at 08:46; Status DC Sodium Chloride 500 ml @ 500 mls/hr 1X ONCE IV Last administered on at 08:49; Start 09/25/18 at 08:45; Stop 09/25/18 at 09:44; Status DC Vancomycin HCl (Vanco Per Pharmacy) 1 each PRN DAILY PRN MC SEE COMMENTS Last administered on 09/25/18at 15:51; Start 09/25/18 at 09:30 Piperacillin Sod/ Tazobactam Sod (Zosyn Per Pharmacy) 1 each PRN DAILY PRN MC SEE COMMENTS; Start 09/25/18 at 09:30 Piperacillin Sod/ Tazobactam Sod 2.25 gm/Sodium Chloride 50 ml @ 100 mls/hr 1X ONCE IV Last administered on 09/25/18at 09:48; Start 09/25/18 at 09:30; Stop 09/25/18 at 09:59; Status DC Vancomycin HCl 1.75 gm/Sodium Chloride 500 ml @ 250 mls/hr 1X ONCE IV Last administered on 09/25/18at 10:25; Start 09/25/18 at 09:45; Stop 09/25/18 at 11 :44; Status DC Sodium Chloride 500 ml @ 500 mls/hr 1X ONCE IV Last administered on at 09:48; Start 09/25/18 at 09:45; Stop 09/25/18 at 10:44; Status DC Sodium Chloride 500 ml @ 500 mls/hr 1X ONCE IV Last administered on at 11:16; Start 09/25/18 at 10:30; Stop 09/25/18 at 11:29; Status DC Norepinephrine Bitartrate 250 ml @ 0 mls/hr 1X ONCE IV Last administered on at 11:13; Start 09/25/18 at 10:30; Stop 09/25/18 at 14:39; Status DC Lidocaine HCl (Lidocaine 1% 20ml Vial) 20 ml STK-MED ONCE .ROUTE ; Start at 10:41; Stop 09/25/18 at 10:42; Status DC Vasopressin 40 unit/Dextrose 102 ml @ 6 mls/hr CONT PRN IV SEE I/O RECORD Last administered on 09/26/18at 04:12; Start 09/25/18 at 13:15 Norepinephrine Bitartrate 250 ml @ 9.375 mls/ hr CONT PRN IV SEE I/O RECORD Last administered on 09/25/18at 19:33; Start 09/25/18 at 14:45 Piperacillin Sod/ Tazobactam Sod 2.25 gm/Sodium Chloride 50 ml @ 100 mls/hr Q8HRS IV Last administered on 09/26/18at 05:48; Start 09/25/18 at 16:00 Vancomycin HCl (Vancomycin Random Level) 1 each 1X ONCE MC Last administered on 09/26/18at 05:35; Start 09/26/18 at 06:00; Stop 09/26/18 at 06:02; Status DC Acetaminophen (Tylenol) 650 mg PRN Q6HRS PRN PO FEVER; Start 09/25/18 at 16:30 Ondansetron HCl (Zofran) 4 mg PRN Q6HRS PRN IV NAUSEA/VOMITING; Start at 16:30 Docusate Sodium (Colace) 100 mg PRN DAILY PRN PO CONSTIPATION; Start 09/25/18 at 16:30 Sodium Chloride 1,000 ml @ 75 mls/hr [id number] IV Last administered on at 05:51; Start 09/25/18 at 16:30 Famotidine (Pepcid Vial) 20 mg Q48H IVP Last administered on 09/25/18at 21:22; Start 09/25/18 at 21:00 Heparin Sodium (Porcine) (Heparin Sodium) 5,000 unit Q8HRS SQ Last administered on 09/26/18at 05:51; Start 09/25/18 at 22:00 Insulin Human Lispro (HumaLOG) 0-7 UNITS TIDWMEALS SQ ; Start 09/25/18 at 17:00 Dextrose (Dextrose 50%-Water Syringe) 12.5 gm PRN Q15MIN PRN IV SEE COMMENTS; Start 09/25/18 at 16:30 Albuterol/ Ipratropium (Duoneb) 3 ml RTQID NEB Last administered on 09/26/18at 07:30; Start 09/25/18 at 20:00 Albuterol Sulfate (Ventolin Neb Soln) 2.5 mg PRN Q2HR PRN NEB SHORTNESS OF BREATH; Start 09/25/18 at 16:30 Guaifenesin (Mucinex) 600 mg BID PO ; Start 09/25/18 at 21:00 Sodium Chloride 1,000 ml @ 1,000 mls/hr Q1H PRN IV hypotension; Start at 06:43; Stop 09/26/18 at 12:42 Albumin Human 200 ml @ 200 mls/hr 1X PRN PRN IV Hypotension; Start 09/26/18 at 06:45; Stop 09/26/18 at 12:44 Sodium Chloride (Normal Saline Flush) 10 ml 1X PRN PRN IV AP 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; Start 09/26/18 at 06:45; Stop 09/27/18 at 06:44 Sodium Chloride (Normal Saline Flush) 10 ml 1X PRN PRN IV 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rec.anlog) 100 Unit/1 Ml Insuln.pen 24 Unit SQ QHS 30 Days Alprazolam 0.5 Mg Tablet 1 Tab PO HS PRN Reported Tamsulosin Hcl 0.4 Mg Cap.er.24h 0.8 Mg PO DAILY Spironolactone 25 Mg Tablet 1 Tab PO DAILY Senokot (Sennosides) 8.6 Mg Tablet 1 Tab PO BID Requip (Ropinirole Hcl) 1 Mg Tablet 1 Tab PO QHS Lyrica (Pregabalin) 75 Mg Capsule 1 Cap PO BID Super Enzyme Caps (Pancreat/Bet Hcl/Pep/Brom/Pap) 1 Each Capsule 4 Cap PO QID Magnesium Oxide 400 Mg Tablet 1 Tab PO DAILY Gemfibrozil 600 Mg Tablet 1 Tab PO BIDWMEALS Folic Acid 1 Mg Tablet 1 Tab PO DAILY Fish Oil 1,000 Mg Capsule ([place]-3 Fatty Acids/Fish Oil) 1 Each Capsule 2,000 Each PO BID Cyclobenzaprine Hcl 10 Mg Tablet 1 Tab PO BID Creon Dr 6,000 Units Capsule (Lipase/Protease/Amylase) 1 Each Capsule.dr 1 Each PO QID Vitamin D3 (Cholecalciferol (Vitamin D3)) 1,000 Unit Tablet 3 Tab PO DAILY Aspirin Ec (Aspirin) 81 Mg Tablet.dr 1 Tab PO DAILY Acetaminophen 500 Mg Tablet 1,000 Mg PO PRN DAILY PRN Midodrine Hcl 5 Mg Tablet 5 Mg PO 3X/WEEK Hydroxyzine Hcl 25 Mg Tablet 25 Mg PO QID Calcium Acetate 667 Mg Tablet 2 Cap PO BIDAC Prevalite Packet (Cholestyramine/Aspartame) 4 Gm Powd.pack 4 Gm PO BID Toprol Xl (Metoprolol Succinate) 25 Mg Tab.er.24h 1 Tab PO DAILY Furosemide 40 Mg Tablet 2 Tab PO DAILY Diltiazem 24HR Cd (Diltiazem Hcl) 120 Mg Cap.er.24h 1 Cap PO DAILY Percocet 5-325 Mg Tablet (Oxycodone/Acetaminophen) 1 Each Tablet 1 Tab PO QID Humalog (Insulin Lispro) 100 Unit/1 Ml Cartridge 8 Unit SQ TIDAC Prilosec Otc (Omeprazole Magnesium) 20 Mg Tablet.dr 20 Mg PO DAILY Allergies Allergies: Coded Allergies: [id number]-Jbz Reductase Inhibitor (Verified Allergy, Severe, Brain swelling. , 02/22/18) Pt was taking Gabapentin with a Statin and per . "It almost killed him." gabapentin (Verified Allergy, Severe, Brain swelling, 02/22/18) Per pt had Gabapentin with a Statin and it caused brain swelling, "almost killed him." sulfamethoxazole (Verified Allergy, Intermediate, 02/22/18) trimethoprim (Verified Allergy, Intermediate, 02/22/18) morphine (Verified Adverse Reaction, Severe, 02/22/18) ROS Review of System Unable to Obtain from Pt Physical Exam Physical Exam GEN.: awake ,On Bipap HEENT: Bipap NECK: Supple. LUNGS: few ronchi HEART: RRR, S1, S2 present. ABDOMEN: Soft, nontender. EXTREMITIES: Bilat LE edema trace, Lt AV Shunt NEUROLOGIC: Awake, Skin c/o pain Rash - No Good Vital Signs Vital Signs Date Time Temp Pulse Resp B/P (MAP) Pulse Ox O2 Delivery O2 Flow Rate FiO2 09/26/18 11:24 100 BiPAP/CPAP 09/26/18 11:00 108 18 110/67 (81) 09/26/18 08:00 97.5 97.5 09/25/18 08:55 4.0 Assessment & Plan ESRD- HD TTS Dialysis today as per his schedule- Seen on HD, tolerating well Continue as Ordered Hyperkalemia- Mild HD today as Ordered Acute respiratory failure- Sepsis/ septic shock. secondary to pneumonia. On Bipap , IV Abx - ID and Pulm following Coronary artery disease with previous coronary artery bypass grafting. Acute metabolic toxic encephalopathy, present upon admission. Status post pacemaker. Pt is DNR/DNI Labs Labs Laboratory Tests Test 09/25/18 08:35 09/25/18 08:55 09/25/18 13:00 09/25/18 17:00 White Blood Count 8.6 x10^3/uL (4.0-11.0) Red Blood Count 3.01 x10^6/uL (4.30-5.70) Hemoglobin 11.4 g/dL (13.0-17.5) Hematocrit 33.3 % (39.0-53.0) Mean Corpuscular Volume 111 fL (79-100) Mean Corpuscular Hemoglobin 38 pg (25-35) Mean Corpuscular Hemoglobin Concent 34 g/dL (31-37) Red Cell Distribution Width 15.7 % (11.5-14.5) Platelet Count 81 x10^3/uL (140-400) Neutrophils (%) (Auto) 84 % (31-73) Lymphocytes (%) (Auto) 10 % (24-48) Monocytes (%) (Auto) 5 % (0-9) Eosinophils (%) (Auto) 1 % (0-3) Basophils (%) (Auto) 1 % (0-3) Neutrophils # (Auto) 7.3 x10^3uL (1.8-7.7) Lymphocytes # (Auto) 0.8 x10^3/uL (1.0-4.8) Monocytes # (Auto) 0.4 x10^3/uL (0.0-1.1) Eosinophils # (Auto) 0.1 x10^3/uL (0.0-0.7) Basophils # (Auto) 0.0 x10^3/uL (0.0-0.2) Platelet Estimate Decreased (ADEQUATE) Large Platelets Present Anisocytosis Slight Macrocytosis Present Prothrombin Time 16.5 SEC (11.7-14.0) Prothromb Time International Ratio 1.4 (0.8-1.1) Sodium Level 139 mmol/L (136-145) Potassium Level 4.2 mmol/L (3.5-5.1) Chloride Level 100 mmol/L (98-107) Carbon Dioxide Level 29 mmol/L (21-32) Anion Gap 10 (6-14) Blood Urea Nitrogen 56 mg/dL (8-26) Creatinine 6.0 mg/dL (0.7-1.3) Estimated GFR (Cockcroft-Gault) 9.0 BUN/Creatinine Ratio 9 (6-20) Glucose Level 108 mg/dL (70-99) Lactic Acid Level 1.6 mmol/L (0.4-2.0) Calcium Level 9.2 mg/dL (8.5-10.1) Total Bilirubin 1.7 mg/dL (0.2-1.0) Aspartate Amino Transf (AST/SGOT) 40 U/L (15-37) Alanine Aminotransferase (ALT/SGPT) 24 U/L (16-63) Alkaline Phosphatase 244 U/L (46-116) Troponin I Quantitative 0.051 ng/mL (0.000-0.055) WU-Zdh-Q-Type Natriuretic Peptide 7114 pg/mL (0-449) Total Protein 7.4 g/dL (6.4-8.2) Albumin 2.7 g/dL (3.4-5.0) Albumin/Globulin Ratio 0.6 (1.0-1.7) O2 Saturation 97 % (92-99) Arterial Blood pH 7.43 (7.35-7.45) Arterial Blood pCO2 at Patient Temp 40 mmHg (35-46) Arterial Blood pO2 at Patient Temp 103 mmHg (65-108) Arterial Blood HCO3 26 mmol/L (21-28) Arterial Blood Base Excess 2 mmol/L (-3-3) FiO2 36.0 Nasal Screen MRSA (PCR) Negative (Negative) Glucose (Fingerstick) 108 mg/dL (70-99) Test 09/25/18 23:30 09/26/18 05:10 09/26/18 05:13 Glucose (Fingerstick) 92 mg/dL (70-99) 131 mg/dL (70-99) White Blood Count 10.4 x10^3/uL (4.0-11.0) Red Blood Count 3.35 x10^6/uL (4.30-5.70) Hemoglobin 12.7 g/dL (13.0-17.5) Hematocrit 36.8 % (39.0-53.0) Mean Corpuscular Volume 110 fL (79-100) Mean Corpuscular Hemoglobin 38 pg (25-35) Mean Corpuscular Hemoglobin Concent 34 g/dL (31-37) Red Cell Distribution Width 15.6 % (11.5-14.5) Platelet Count 98 x10^3/uL (140-400) Neutrophils (%) (Auto) 85 % (31-73) Lymphocytes (%) (Auto) 9 % (24-48) Monocytes (%) (Auto) 6 % (0-9) Eosinophils (%) (Auto) 1 % (0-3) Basophils (%) (Auto) 0 % (0-3) Neutrophils # (Auto) 8.9 x10^3uL (1.8-7.7) Lymphocytes # (Auto) 0.9 x10^3/uL (1.0-4.8) Monocytes # (Auto) 0.6 x10^3/uL (0.0-1.1) Eosinophils # (Auto) 0.1 x10^3/uL (0.0-0.7) Basophils # (Auto) 0.0 x10^3/uL (0.0-0.2) Sodium Level 137 mmol/L (136-145) Potassium Level 5.5 mmol/L (3.5-5.1) Chloride Level 101 mmol/L (98-107) Carbon Dioxide Level 23 mmol/L (21-32) Anion Gap 13 (6-14) Blood Urea Nitrogen 66 mg/dL (8-26) Creatinine 6.6 mg/dL (0.7-1.3) Estimated GFR (Cockcroft-Gault) 8.1 Glucose Level 141 mg/dL (70-99) Calcium Level 8.4 mg/dL (8.5-10.1) Random Vancomycin Level 20.3 mcg/mL Laboratory Tests Test 09/25/18 13:00 09/25/18 17:00 09/25/18 23:30 09/26/18 05:10 Nasal Screen MRSA (PCR) Negative (Negative) Glucose (Fingerstick) 108 mg/dL (70-99) 92 mg/dL (70-99) White Blood Count 10.4 x10^3/uL (4.0-11.0) Red Blood Count 3.35 x10^6/uL (4.30-5.70) Hemoglobin 12.7 g/dL (13.0-17.5) Hematocrit 36.8 % (39.0-53.0) Mean Corpuscular Volume 110 fL (79-100) Mean Corpuscular Hemoglobin 38 pg (25-35) Mean Corpuscular Hemoglobin Concent 34 g/dL (31-37) Red Cell Distribution Width 15.6 % (11.5-14.5) Platelet Count 98 x10^3/uL (140-400) Neutrophils (%) (Auto) 85 % (31-73) Lymphocytes (%) (Auto) 9 % (24-48) Monocytes (%) (Auto) 6 % (0-9) Eosinophils (%) (Auto) 1 % (0-3) Basophils (%) (Auto) 0 % (0-3) Neutrophils # (Auto) 8.9 x10^3uL (1.8-7.7) Lymphocytes # (Auto) 0.9 x10^3/uL (1.0-4.8) Monocytes # (Auto) 0.6 x10^3/uL (0.0-1.1) Eosinophils # (Auto) 0.1 x10^3/uL (0.0-0.7) Basophils # (Auto) 0.0 x10^3/uL (0.0-0.2) Sodium Level 137 mmol/L (136-145) Potassium Level 5.5 mmol/L (3.5-5.1) Chloride Level 101 mmol/L (98-107) Carbon Dioxide Level 23 mmol/L (21-32) Anion Gap 13 (6-14) Blood Urea Nitrogen 66 mg/dL (8-26) Creatinine 6.6 mg/dL (0.7-1.3) Estimated GFR (Cockcroft-Gault) 8.1 Glucose Level 141 mg/dL (70-99) Calcium Level 8.4 mg/dL (8.5-10.1) Random Vancomycin Level 20.3 mcg/mL Test 09/26/18 05:13 Glucose (Fingerstick) 131 mg/dL (70-99) Review All relevant outside records, renal labs, imaging studies, telemetry/EKG's were reviewed. Images Images CxR --Opacification of the left lower lung zone may be secondary to atelectasis, pneumonia or small pleural effusion. May be superimposed mild interstitial pulmonary edema or chronic interstitial changes. LAURA COPPOLA MD Sep 26, 2018 11:41
[2018-09-26] MEDS: VANCOMYCIN PER PHARMACY MC PRN (15:16)
[2018-09-26] MEDS: VANCOMYCIN 500 MG in IV NORMAL SALINE 100ML 100 ML IV SCH (16:45)
[2018-09-26] MEDS: ACETAMINOPHEN 325 MG TABLET. PO PRN (21:31)
--- NOTE | 2018-09-26 23:07 | CONS ---
DATE OF CONSULTATION: 09/26/2018 REFERRING PHYSICIAN: Dr. Gilmore. REASON FOR CONSULTATION: Sepsis, likely pneumonia. HISTORY OF PRESENT ILLNESS: An 82-year-old male, recently discharged from [facility] with [place] hospital-acquired pneumonia, was on meropenem and discharged on ciprofloxacin to the [facility] facility, subsequently was transferred home and was doing well. He was noted to have worsening cough, which started Tuesday. He was brought to the Emergency Room yesterday and was found to be hypotensive, requiring IV fluid bolus and later Levophed. He was started on empiric vancomycin and Zosyn for suspected pneumonia. He has end-stage renal disease, peripheral vascular disease and CHF. No fever. White count was normal. Chest x-ray showed a left-sided pleural effusion with infiltrates. The patient was admitted to CCU on Levophed, remains on BiPAP. The patient has multiple hospitalizations earlier this year. PAST MEDICAL HISTORY: End-stage renal disease, on hemodialysis; coronary artery disease; diastolic heart failure; history of atrial fibrillation; cerebrovascular accident; Parkinson's disease; heart attack; cardiomyopathy; hyperlipidemia; hypertension; sleep apnea; gastroesophageal reflux; prostate cancer; benign prostatic hyperplasia; urinary retention; back pain; diabetes; anemia; skin cancer; dementia; legally blind. PAST SURGICAL HISTORY: Cataract removal, tonsillectomy, coronary artery bypass graft, coronary stent, pacemaker placement, spinal fusion, left arm AV fistula, pain stimulator. FAMILY HISTORY: As per HPI. SOCIAL HISTORY: , nonsmoker. ALLERGIES: STATINS, GABAPENTIN, MORPHINE, SULFA. CURRENT MEDICATIONS: IV vancomycin and Zosyn. Other medications reviewed in medication list per MAR. REVIEW OF SYSTEMS: Unable to obtain. PHYSICAL EXAMINATION: GENERAL: The patient is seen in Intensive Care Unit, on BiPAP, arousable. VITAL SIGNS: Temperature 98.2, pulse 98, blood pressure 95/55, oxygen saturation 100% on BiPAP. HEENT: Normal conjunctivae. No petechia. NECK: Supple. Left IJ site looks okay. LUNGS: Decreased aeration. HEART: S1, S2, tachycardia. ABDOMEN: Soft, nontender, obese. EXTREMITIES: No edema. Left upper extremity AV fistula site looks unremarkable. Lower extremity superficial abrasions present, not infected. SKIN: Warm, dry. No generalized rash. NEUROLOGIC: On BiPAP, arousable, sleepy. LINES: PIV looks okay. LABORATORY DATA: WBC 10.4, hemoglobin 12.7, hematocrit 36.8, platelet 98. Sodium 137, potassium 5.5, chloride 101, bicarbonate 23, BUN 66, creatinine 6.6, glucose 141. Lactate 1.6. Random vancomycin 20.3. Head CT shows no acute intracranial process, acute on chronic pansinusitis. Chest x-ray shows left IJ over the lower superior vena cava, unchanged infiltrate or consolidation with pleural effusion in left lung base. Blood cultures pending at this time. IMPRESSION: 1. Sepsis with hypotension requiring vasopressor support. 2. Suspected pneumonia. 3. Acute respiratory failure, on BiPAP. 4. Coronary artery disease with coronary artery bypass grafting. 5. Status post pacemaker. 6. End-stage renal disease, on hemodialysis via AV fistula. 7. Diabetes. 8. History of multiple hospitalizations this year, requiring antibiotic support. 9. History of [place] healthcare-associated pneumonia, 07/2018, treated. 10. History of benign prostatic hypertrophy with urinary retention. 11. Legally blind. 12. History of mild dysphagia with aspiration of thin liquids per past video swallow study. 13. Sulfa allergy. RECOMMENDATIONS: 1. Continue empiric Zosyn and IV vancomycin. 2. Follow up culture and susceptibility results. 3. Monitor vital signs closely. 4. Continue supportive care. Thank you, Dr. Gilmore, for asking us to participate in this patient's care. If you have any questions, do not hesitate to contact me. CHINA UPTON MD DR: KENYON/nts JOB#: [id number] / [id number]
[2018-09-27] VITALS (13 sets, daily range): BP systolic 87–130; BP diastolic 41–74
[2018-09-27 05:58] LABS: CALCIUM 8.2 mg/dL (8.5-10.1); CREATININE 5.1 mg/dL (0.7-1.3); GFR 10.9; POTASSIUM 4.3 mmol/L (3.5-5.1)
[2018-09-27] MEDS: PIPERACILLIN/TAZOBACTAM 2.25 GM in IV NORMAL SALINE 50ML 50 ML IV SCH ×3 (06:03→22:00)
[2018-09-27] MEDS: HEPARIN for SUB-Q USE 5,000 UNIT/ML VIAL. SQ SCH ×3 (06:04→22:17)
--- NOTE | 2018-09-27 07:47 | PDOC ---
Infectious Disease Note ROS: ROS Negative except for above. Vital Signs: Vital Signs Vital Signs Date Time Temp Pulse Resp B/P (MAP) Pulse Ox O2 Delivery O2 Flow Rate FiO2 09/27/18 06:00 84 18 104/49 (67) 98 Nasal Cannula 2.0 09/27/18 04:00 97.9 97.9 Physical Exam: PHYSICAL EXAM GENERAL: alert awake male in nad HEENT: Normal conjunctivae. No petechia. nasal o2 NECK: Supple. Left IJ site looks okay. LUNGS: Decreased aeration. HEART: S1, S2, tachycardia. ABDOMEN: Soft, nontender, obese. EXTREMITIES: No edema. Left upper extremity AV fistula site looks unremarkable. Lower extremity superficial abrasions present, not infected. SKIN: Warm, dry. No generalized rash. NEUROLOGIC: On BiPAP, arousable, sleepy. LINES: Lt IJ looks ok Medications: Inpatient Meds: Current Medications Medications (Trade) Dose Ordered Sig/Tracy Start Time Stop Time Status Last Admin Dose Admin Acetaminophen (Tylenol) 650 mg PRN Q6HRS PRN 09/25/18 16:30 09/26/18 21:31 650 MG Albumin Human 200 ml @ 200 mls/hr 1X PRN PRN 09/26/18 06:45 09/26/18 12:54 DC Albuterol Sulfate (Ventolin Neb Soln) 2.5 mg PRN Q2HR PRN 09/25/18 16:30 Albuterol/ Ipratropium (Duoneb) 3 ml RTQID 09/25/18 20:00 09/26/18 19:29 3 ML Dextrose (Dextrose 50%-Water Syringe) 12.5 gm PRN Q15MIN PRN 09/25/18 16:30 Docusate Sodium (Colace) 100 mg PRN DAILY PRN 09/25/18 16:30 Famotidine (Pepcid Vial) 20 mg Q48H 09/25/18 21:00 09/25/18 21:22 20 MG Guaifenesin (Mucinex) 600 mg BID 09/25/18 21:00 09/26/18 21:28 600 MG Heparin Sodium (Porcine) (Heparin Sodium) 5,000 unit Q8HRS 09/25/18 22:00 09/27/18 06:04 5,000 UNIT Info (PHARMACY MONITORING -- do not chart) 1 each PRN DAILY PRN 09/26/18 06:45 Insulin Human Lispro (HumaLOG) 0-7 UNITS TIDWMEALS 09/25/18 17:00 09/26/18 16:48 4 UNITS Lidocaine HCl (Lidocaine 1% 20ml Vial) 20 ml STK-MED ONCE 09/25/18 10:41 09/25/18 10:42 DC Naloxone HCl (Narcan) 0.2 mg 1X ONCE 09/25/18 08:45 09/25/18 08:46 DC 09/25/18 08:47 0.2 MG Norepinephrine Bitartrate 250 ml @ 9.375 mls/ hr CONT PRN 09/25/18 14:45 09/25/18 19:33 18.75 MLS/HR Ondansetron HCl (Zofran) 4 mg PRN Q6HRS PRN 09/25/18 16:30 Piperacillin Sod/ Tazobactam Sod (Zosyn Per Pharmacy) 1 each PRN DAILY PRN 09/25/18 09:30 Piperacillin Sod/ Tazobactam Sod 2.25 gm/Sodium Chloride 50 ml @ 100 mls/hr Q8HRS 09/25/18 16:00 09/27/18 06:03 100 MLS/HR Sodium Chloride 1,000 ml @ 400 mls/hr Q2H30M PRN 09/26/18 06:43 09/26/18 18:42 DC Sodium Chloride (Normal Saline Flush) 10 ml 1X PRN PRN 09/26/18 06:45 09/27/18 06:44 DC Vancomycin HCl (Vanco Per Pharmacy) 1 each PRN DAILY PRN 09/25/18 09:30 09/26/18 15:16 1 EACH Vancomycin HCl (Vancomycin Random Level) 1 each 1X ONCE 09/26/18 06:00 09/26/18 06:02 DC 09/26/18 05:35 1 EACH Vancomycin HCl 1.75 gm/Sodium Chloride 500 ml @ 250 mls/hr 1X ONCE 09/25/18 09:45 09/25/18 11:44 DC 09/25/18 10:25 250 MLS/HR Vancomycin HCl 500 mg/Sodium Chloride 100 ml @ 100 mls/hr TuThSa 09/26/18 16:00 09/26/18 16:45 100 MLS/HR Vasopressin 40 unit/Dextrose 102 ml @ 6 mls/hr CONT PRN 09/25/18 13:15 09/26/18 04:12 6 MLS/HR Labs: Lab Laboratory Tests Test 09/26/18 13:02 09/26/18 16:41 09/26/18 22:31 09/27/18 05:38 Glucose (Fingerstick) 105 mg/dL (70-99) 209 mg/dL (70-99) 299 mg/dL (70-99) Sodium Level 135 mmol/L (136-145) Potassium Level 4.3 mmol/L (3.5-5.1) Chloride Level 98 mmol/L (98-107) Carbon Dioxide Level 28 mmol/L (21-32) Anion Gap 9 (6-14) Blood Urea Nitrogen 43 mg/dL (8-26) Creatinine 5.1 mg/dL (0.7-1.3) Estimated GFR (Cockcroft-Gault) 10.9 Glucose Level 315 mg/dL (70-99) Calcium Level 8.2 mg/dL (8.5-10.1) Micro neg so far Objective: Assessment: 1. Sepsis with hypotension requiring vasopressor support. now getting weaned off 2. Suspected pneumonia. 3. Acute respiratory failure, now on O2,off bipap 4. Coronary artery disease with coronary artery bypass grafting. 5. Status post pacemaker. 6. End-stage renal disease, on hemodialysis via AV fistula. 7. Diabetes. 8. History of multiple hospitalizations this year, requiring antibiotic support. 9. History of [place] healthcare-associated pneumonia, 07/2018, treated. 10. History of benign prostatic hypertrophy with urinary retention. 11. Legally blind. 12. History of mild dysphagia with aspiration of thin liquids per past video swallow study. 13. Sulfa allergy. Plan: Plan of Care 1. Continue empiric Zosyn and IV vancomycin. 2. Follow up culture and susceptibility results. 3. Continue supportive care. D/W CHINA PATEL MD Sep 27, 2018 07:47
[2018-09-27] MEDS: INSULIN LISPRO 300 UNITS/3 ML INSULN.PEN. SQ SCH ×3 (08:00→18:07)
[2018-09-27] MEDS: IPRATRPIUM/ALBUTEROL 0.5/2.5MG 3 ML NEBU. NEB SCH ×4 (08:00→19:01)
[2018-09-27 08:05] LABS: BASO % 1 % (0-3); EOS # 0.1 x10^3/uL (0.0-0.7); EOS % 2 % (0-3); HEMOGLOBIN 10.3 g/dL (13.0-17.5); LYMPH # 0.5 x10^3/uL (1.0-4.8); LYMPH % 11 % (24-48); MEAN CORPUSCULAR HEMOGLOBIN 38 pg (25-35); MEAN CORPUSCULAR HGB CONC 34 g/dL (31-37); MEAN CORPUSCULAR VOLUME 110 fL (79-100); MONO # 0.4 x10^3/uL (0.0-1.1); MONO % 7 % (0-9); NEUT # 4.1 x10^3uL (1.8-7.7); NEUT % 80 % (31-73); PLATELET COUNT 64 x10^3/uL (140-400); RED BLOOD COUNT 2.73 x10^6/uL (4.30-5.70); RED CELL DISTRIBUTION WIDTH 15.7 % (11.5-14.5); WHITE BLOOD COUNT 5.1 x10^3/uL (4.0-11.0)
--- NOTE | 2018-09-27 10:07 | PDOC ---
SUBJECTIVE ROS Sitting in chair, eating Breakfast OBJECTIVE Vital Signs Vital Signs Date Time Temp Pulse Resp B/P (MAP) Pulse Ox O2 Delivery O2 Flow Rate FiO2 09/27/18 06:00 84 18 104/49 (67) 98 Nasal Cannula 2.0 09/27/18 04:00 97.9 97.9 I & 0 Intake and Output 09/27/18 07:00 Intake Total 1473 ml Output Total 250 ml Balance 1223 ml Intake Oral 800 ml IV Total 673 ml Output Urine Total 250 ml # Bowel Movements 3 PHYSICAL EXAM Physical Exam GENERAL: alert awake , sitting in chair, NAD HEENT: OM moist ,nasal o2 NECK: Supple. Left IJ LUNGS: Few Ronchi ant, Non labored HEART: S1, S2, tachycardia. ABDOMEN: Soft, nontender, obese. EXTREMITIES: No edema. Left upper extremity AV fistula , changes of CVI Lower extremity superficial abrasions present, not infected. SKIN: No rash. NEUROLOGIC: Alert, Oriented No Good DIAGNOSIS/ASSESSMENT Assessment & Plan ESRD- HD TTS Currently no emergent indication for HD Dialysis Tomorrow as his schedule Hyperkalemia-K Normal today Acute respiratory failure- Sepsis/ septic shock. secondary to pneumonia. IV Abx - ID and Pulm following , Now on O2(Off Bipap) Coronary artery disease with previous coronary artery bypass grafting. Acute metabolic toxic encephalopathy, present upon admission. Status post pacemaker. COMMENT/RELEVANT DATA Meds Current Medications Medications (Trade) Dose Ordered Sig/Tracy Start Time Stop Time Status Last Admin Dose Admin Acetaminophen (Tylenol) 650 mg PRN Q6HRS PRN 09/25/18 16:30 09/26/18 21:31 650 MG Albumin Human 200 ml @ 200 mls/hr 1X PRN PRN 09/26/18 06:45 09/26/18 12:54 DC Albuterol Sulfate (Ventolin Neb Soln) 2.5 mg PRN Q2HR PRN 09/25/18 16:30 Albuterol/ Ipratropium (Duoneb) 3 ml RTQID 09/25/18 20:00 09/26/18 19:29 3 ML Dextrose (Dextrose 50%-Water Syringe) 12.5 gm PRN Q15MIN PRN 09/25/18 16:30 Docusate Sodium (Colace) 100 mg PRN DAILY PRN 09/25/18 16:30 Famotidine (Pepcid Vial) 20 mg Q48H 09/25/18 21:00 09/25/18 21:22 20 MG Guaifenesin (Mucinex) 600 mg BID 09/25/18 21:00 09/26/18 21:28 600 MG Heparin Sodium (Porcine) (Heparin Sodium) 5,000 unit Q8HRS 09/25/18 22:00 09/27/18 06:04 5,000 UNIT Info (PHARMACY MONITORING -- do not chart) 1 each PRN DAILY PRN 09/26/18 06:45 Insulin Human Lispro (HumaLOG) 0-7 UNITS TIDWMEALS 09/25/18 17:00 09/26/18 16:48 4 UNITS Lidocaine HCl (Lidocaine 1% 20ml Vial) 20 ml STK-MED ONCE 09/25/18 10:41 09/25/18 10:42 DC Naloxone HCl (Narcan) 0.2 mg 1X ONCE 09/25/18 08:45 09/25/18 08:46 DC 09/25/18 08:47 0.2 MG Norepinephrine Bitartrate 250 ml @ 9.375 mls/ hr CONT PRN 09/25/18 14:45 09/25/18 19:33 18.75 MLS/HR Ondansetron HCl (Zofran) 4 mg PRN Q6HRS PRN 09/25/18 16:30 Piperacillin Sod/ Tazobactam Sod (Zosyn Per Pharmacy) 1 each PRN DAILY PRN 09/25/18 09:30 Piperacillin Sod/ Tazobactam Sod 2.25 gm/Sodium Chloride 50 ml @ 100 mls/hr Q8HRS 09/25/18 16:00 09/27/18 06:03 100 MLS/HR Sodium Chloride 1,000 ml @ 400 mls/hr Q2H30M PRN 09/26/18 06:43 09/26/18 18:42 DC Sodium Chloride (Normal Saline Flush) 10 ml 1X PRN PRN 09/26/18 06:45 09/27/18 06:44 DC Vancomycin HCl (Vanco Per Pharmacy) 1 each PRN DAILY PRN 09/25/18 09:30 09/26/18 15:16 1 EACH Vancomycin HCl (Vancomycin Random Level) 1 each 1X ONCE 09/26/18 06:00 09/26/18 06:02 DC 09/26/18 05:35 1 EACH Vancomycin HCl 1.75 gm/Sodium Chloride 500 ml @ 250 mls/hr 1X ONCE 09/25/18 09:45 09/25/18 11:44 DC 09/25/18 10:25 250 MLS/HR Vancomycin HCl 500 mg/Sodium Chloride 100 ml @ 100 mls/hr TuThSa 09/26/18 16:00 09/26/18 16:45 100 MLS/HR Vasopressin 40 unit/Dextrose 102 ml @ 6 mls/hr CONT PRN 09/25/18 13:15 09/26/18 04:12 6 MLS/HR Lab Laboratory Tests Test 09/26/18 13:02 09/26/18 16:41 09/26/18 22:31 09/27/18 05:38 Glucose (Fingerstick) 105 mg/dL (70-99) 209 mg/dL (70-99) 299 mg/dL (70-99) White Blood Count 5.1 x10^3/uL (4.0-11.0) Red Blood Count 2.73 x10^6/uL (4.30-5.70) Hemoglobin 10.3 g/dL (13.0-17.5) Hematocrit 30.0 % (39.0-53.0) Mean Corpuscular Volume 110 fL (79-100) Mean Corpuscular Hemoglobin 38 pg (25-35) Mean Corpuscular Hemoglobin Concent 34 g/dL (31-37) Red Cell Distribution Width 15.7 % (11.5-14.5) Platelet Count 64 x10^3/uL (140-400) Neutrophils (%) (Auto) 80 % (31-73) Lymphocytes (%) (Auto) 11 % (24-48) Monocytes (%) (Auto) 7 % (0-9) Eosinophils (%) (Auto) 2 % (0-3) Basophils (%) (Auto) 1 % (0-3) Neutrophils # (Auto) 4.1 x10^3uL (1.8-7.7) Lymphocytes # (Auto) 0.5 x10^3/uL (1.0-4.8) Monocytes # (Auto) 0.4 x10^3/uL (0.0-1.1) Eosinophils # (Auto) 0.1 x10^3/uL (0.0-0.7) Basophils # (Auto) 0.0 x10^3/uL (0.0-0.2) Sodium Level 135 mmol/L (136-145) Potassium Level 4.3 mmol/L (3.5-5.1) Chloride Level 98 mmol/L (98-107) Carbon Dioxide Level 28 mmol/L (21-32) Anion Gap 9 (6-14) Blood Urea Nitrogen 43 mg/dL (8-26) Creatinine 5.1 mg/dL (0.7-1.3) Estimated GFR (Cockcroft-Gault) 10.9 Glucose Level 315 mg/dL (70-99) Calcium Level 8.2 mg/dL (8.5-10.1) Results All relevant outside records, renal labs, imaging studies, telemetry/EKG's were reviewed. LAURA COPPOLA MD Sep 27, 2018 10:07
--- NOTE | 2018-09-27 12:00 | PDOC ---
PULMONARY PROGRESS NOTES Subjective off BIPAP awake, follows commands off levophed Vitals Vital Signs Date Time Temp Pulse Resp B/P (MAP) Pulse Ox O2 Delivery O2 Flow Rate FiO2 09/27/18 11:00 86 120/52 (74) 100 Nasal Cannula 2.0 09/27/18 08:00 98.1 98.1 09/27/18 06:00 18 General: Alert, No acute distress HEENT: Other Lungs: Other (few rhonchi, BiPAP FiO2 of 30% at rate of 16) Cardiovascular: S1 Abdomen: Soft Neuro Exam: Alert Extremities: Other (trace edema) Skin: Warm Labs Laboratory Tests Test 09/25/18 13:00 09/25/18 17:00 09/25/18 23:30 09/26/18 05:10 Nasal Screen MRSA (PCR) Negative (Negative) Glucose (Fingerstick) 108 mg/dL (70-99) 92 mg/dL (70-99) White Blood Count 10.4 x10^3/uL (4.0-11.0) Red Blood Count 3.35 x10^6/uL (4.30-5.70) Hemoglobin 12.7 g/dL (13.0-17.5) Hematocrit 36.8 % (39.0-53.0) Mean Corpuscular Volume 110 fL (79-100) Mean Corpuscular Hemoglobin 38 pg (25-35) Mean Corpuscular Hemoglobin Concent 34 g/dL (31-37) Red Cell Distribution Width 15.6 % (11.5-14.5) Platelet Count 98 x10^3/uL (140-400) Neutrophils (%) (Auto) 85 % (31-73) Lymphocytes (%) (Auto) 9 % (24-48) Monocytes (%) (Auto) 6 % (0-9) Eosinophils (%) (Auto) 1 % (0-3) Basophils (%) (Auto) 0 % (0-3) Neutrophils # (Auto) 8.9 x10^3uL (1.8-7.7) Lymphocytes # (Auto) 0.9 x10^3/uL (1.0-4.8) Monocytes # (Auto) 0.6 x10^3/uL (0.0-1.1) Eosinophils # (Auto) 0.1 x10^3/uL (0.0-0.7) Basophils # (Auto) 0.0 x10^3/uL (0.0-0.2) Sodium Level 137 mmol/L (136-145) Potassium Level 5.5 mmol/L (3.5-5.1) Chloride Level 101 mmol/L (98-107) Carbon Dioxide Level 23 mmol/L (21-32) Anion Gap 13 (6-14) Blood Urea Nitrogen 66 mg/dL (8-26) Creatinine 6.6 mg/dL (0.7-1.3) Estimated GFR (Cockcroft-Gault) 8.1 Glucose Level 141 mg/dL (70-99) Calcium Level 8.4 mg/dL (8.5-10.1) Random Vancomycin Level 20.3 mcg/mL Test 09/26/18 05:13 09/26/18 07:20 09/26/18 13:02 09/26/18 16:41 Glucose (Fingerstick) 131 mg/dL (70-99) 105 mg/dL (70-99) 209 mg/dL (70-99) O2 Saturation 99 % (92-99) Arterial Blood pH 7.32 (7.35-7.45) Arterial Blood pCO2 at Patient Temp 43 mmHg (35-46) Arterial Blood pO2 at Patient Temp 158 mmHg (65-108) Arterial Blood HCO3 22 mmol/L (21-28) Arterial Blood Base Excess -5 mmol/L (-3-3) FiO2 40% bipap Test 09/26/18 22:31 09/27/18 05:38 09/27/18 11:37 Glucose (Fingerstick) 299 mg/dL (70-99) 315 mg/dL (70-99) White Blood Count 5.1 x10^3/uL (4.0-11.0) Red Blood Count 2.73 x10^6/uL (4.30-5.70) Hemoglobin 10.3 g/dL (13.0-17.5) Hematocrit 30.0 % (39.0-53.0) Mean Corpuscular Volume 110 fL (79-100) Mean Corpuscular Hemoglobin 38 pg (25-35) Mean Corpuscular Hemoglobin Concent 34 g/dL (31-37) Red Cell Distribution Width 15.7 % (11.5-14.5) Platelet Count 64 x10^3/uL (140-400) Neutrophils (%) (Auto) 80 % (31-73) Lymphocytes (%) (Auto) 11 % (24-48) Monocytes (%) (Auto) 7 % (0-9) Eosinophils (%) (Auto) 2 % (0-3) Basophils (%) (Auto) 1 % (0-3) Neutrophils # (Auto) 4.1 x10^3uL (1.8-7.7) Lymphocytes # (Auto) 0.5 x10^3/uL (1.0-4.8) Monocytes # (Auto) 0.4 x10^3/uL (0.0-1.1) Eosinophils # (Auto) 0.1 x10^3/uL (0.0-0.7) Basophils # (Auto) 0.0 x10^3/uL (0.0-0.2) Sodium Level 135 mmol/L (136-145) Potassium Level 4.3 mmol/L (3.5-5.1) Chloride Level 98 mmol/L (98-107) Carbon Dioxide Level 28 mmol/L (21-32) Anion Gap 9 (6-14) Blood Urea Nitrogen 43 mg/dL (8-26) Creatinine 5.1 mg/dL (0.7-1.3) Estimated GFR (Cockcroft-Gault) 10.9 Glucose Level 315 mg/dL (70-99) Calcium Level 8.2 mg/dL (8.5-10.1) Laboratory Tests Test 09/26/18 13:02 09/26/18 16:41 09/26/18 22:31 09/27/18 05:38 Glucose (Fingerstick) 105 mg/dL (70-99) 209 mg/dL (70-99) 299 mg/dL (70-99) White Blood Count 5.1 x10^3/uL (4.0-11.0) Red Blood Count 2.73 x10^6/uL (4.30-5.70) Hemoglobin 10.3 g/dL (13.0-17.5) Hematocrit 30.0 % (39.0-53.0) Mean Corpuscular Volume 110 fL (79-100) Mean Corpuscular Hemoglobin 38 pg (25-35) Mean Corpuscular Hemoglobin Concent 34 g/dL (31-37) Red Cell Distribution Width 15.7 % (11.5-14.5) Platelet Count 64 x10^3/uL (140-400) Neutrophils (%) (Auto) 80 % (31-73) Lymphocytes (%) (Auto) 11 % (24-48) Monocytes (%) (Auto) 7 % (0-9) Eosinophils (%) (Auto) 2 % (0-3) Basophils (%) (Auto) 1 % (0-3) Neutrophils # (Auto) 4.1 x10^3uL (1.8-7.7) Lymphocytes # (Auto) 0.5 x10^3/uL (1.0-4.8) Monocytes # (Auto) 0.4 x10^3/uL (0.0-1.1) Eosinophils # (Auto) 0.1 x10^3/uL (0.0-0.7) Basophils # (Auto) 0.0 x10^3/uL (0.0-0.2) Sodium Level 135 mmol/L (136-145) Potassium Level 4.3 mmol/L (3.5-5.1) Chloride Level 98 mmol/L (98-107) Carbon Dioxide Level 28 mmol/L (21-32) Anion Gap 9 (6-14) Blood Urea Nitrogen 43 mg/dL (8-26) Creatinine 5.1 mg/dL (0.7-1.3) Estimated GFR (Cockcroft-Gault) 10.9 Glucose Level 315 mg/dL (70-99) Calcium Level 8.2 mg/dL (8.5-10.1) Test 09/27/18 11:37 Glucose (Fingerstick) 315 mg/dL (70-99) Medications Active Scripts Medications Dose Route/Sig Max Daily Dose Days Date Category Humalog (Insulin Lispro) 100 Unit/1 Ml Insuln.pen 10 Units SQ TIDWMEALS 30 08/14/18 Rx Haloperidol 2 Mg Tablet 0.5 Tab PO Q12HR 08/14/18 Rx Lantus Solostar (Insulin Glargine,Hum.rec.anlog) 100 Unit/1 Ml Insuln.pen 24 Unit SQ QHS 30 08/14/18 Rx Alprazolam 0.5 Mg Tablet 1 Tab PO HS PRN 08/14/18 Rx Tamsulosin Hcl 0.4 Mg Cap.er.24h 0.8 Mg PO DAILY 08/11/18 Reported Spironolactone 25 Mg Tablet 1 Tab PO DAILY 08/11/18 Reported Senokot (Sennosides) 8.6 Mg Tablet 1 Tab PO BID 08/11/18 Reported Requip (Ropinirole Hcl) 1 Mg Tablet 1 Tab PO QHS 08/11/18 Reported Lyrica (Pregabalin) 75 Mg Capsule 1 Cap PO BID 08/11/18 Reported Super Enzyme Caps (Pancreat/Bet Hcl/Pep/Brom/Pap) 1 Each Capsule 4 Cap PO QID 08/11/18 Reported Magnesium Oxide 400 Mg Tablet 1 Tab PO DAILY 08/11/18 Reported Gemfibrozil 600 Mg Tablet 1 Tab PO BIDWMEALS 08/11/18 Reported Folic Acid 1 Mg Tablet 1 Tab PO DAILY 08/11/18 Reported Fish Oil 1,000 Mg Capsule ([place]-3 Fatty Acids/Fish Oil) 1 Each Capsule 2,000 Each PO BID 08/11/18 Reported Cyclobenzaprine Hcl 10 Mg Tablet 1 Tab PO BID 08/11/18 Reported Irina Elias 6,000 Units Capsule (Lipase/Protease/Amylase) 1 Each Capsule.dr 1 Each PO QID 08/11/18 Reported Vitamin D3 (Cholecalciferol (Vitamin D3)) 1,000 Unit Tablet 3 Tab PO DAILY 08/11/18 Reported Aspirin Ec (Aspirin) 81 Mg Tablet. 1 Tab PO DAILY 08/11/18 Reported Acetaminophen 500 Mg Tablet 1,000 Mg PO PRN DAILY PRN 08/11/18 Reported Midodrine Hcl 5 Mg Tablet 5 Mg PO 3X/WEEK 06/06/18 Reported Hydroxyzine Hcl 25 Mg Tablet 25 Mg PO QID 06/06/18 Reported Calcium Acetate 667 Mg Tablet 2 Cap PO BIDAC 06/06/18 Reported Prevalite Packet (Cholestyramine/Aspartame) 4 Gm Powd.pack 4 Gm PO BID 06/06/18 Reported Toprol Xl (Metoprolol Succinate) 25 Mg Tab.er.24h 1 Tab PO DAILY 06/06/18 Reported Furosemide 40 Mg Tablet 2 Tab PO DAILY 06/06/18 Reported Diltiazem 24HR Cd (Diltiazem Hcl) 120 Mg Cap.er.24h 1 Cap PO DAILY 06/06/18 Reported Percocet 5-325 Mg Tablet (Oxycodone/Acetaminophen) 1 Each Tablet 1 Tab PO QID 06/06/17 Reported Humalog (Insulin Lispro) 100 Unit/1 Ml Cartridge 8 Unit SQ TIDAC 06/06/17 Reported Prilosec Otc (Omeprazole Magnesium) 20 Mg Tablet.dr 20 Mg PO DAILY 11/20/14 Reported Impression . 1. Acute respiratory failure. 2. Sepsis/ septic shock. secondary to pneumonia. off pressor 3. Coronary artery disease with previous coronary artery bypass grafting. 4. Acute metabolic toxic encephalopathy, present upon admission. 5. Protein malnutrition present upon admission. 6. Status post pacemaker. 7. Peripheral vascular disease. 8. Abnormal cxr with LLL infiltrate/ effusion Plan . 1. We will continue current support with prn BiPAP. 2. IV antibiotics to cover both gram-negative and gram-positive organisms. 3. ID recommendations 4. Follow clinical course and make further recommendations. 5. f/u cxr as needed 6. HD 7. off pressor 8. d/w RN/RT DNR/DNI d/w MAZIN Harrell MD Sep 27, 2018 12:00
--- NOTE | 2018-09-27 12:49 | PDOC ---
PROGRESS NOTES Chief Complaint Chief Complaint Acute respiratory failure Sepsis/ septic shock, secondary to pneumonia Coronary artery disease with previous coronary artery bypass grafting Acute metabolic toxic encephalopathy, present upon admission Protein malnutrition present upon admission Status post pacemaker Peripheral vascular disease Abnormal cxr with LLL infiltrate/ effusion Hyperkalemia, resolved History of Present Illness History of Present Illness Pt seen and examined in ICU Sitting in chair, calm, cooperative, oxygen via nasal cannula Discussed with RN at bedside Vitals Vitals Vital Signs Date Time Temp Pulse Resp B/P (MAP) Pulse Ox O2 Delivery O2 Flow Rate FiO2 09/27/18 11:00 86 120/52 (74) 100 Nasal Cannula 2.0 09/27/18 08:00 98.1 98.1 09/27/18 06:00 18 Physical Exam Physical Exam GENERAL: alert awake male in nad HEENT: Normal conjunctivae. No petechia. nasal o2 NECK: Supple. Left IJ site looks okay. LUNGS: Decreased aeration. HEART: S1, S2, tachycardia. ABDOMEN: Soft, nontender, obese. EXTREMITIES: No edema. Left upper extremity AV fistula site looks unremarkable. Lower extremity superficial abrasions present, not infected. SKIN: Warm, dry. No generalized rash. LINES: Lt IJ looks ok General: Alert, Cooperative, No acute distress Heart: Regular rate, Normal S1, Normal S2 Lungs: Clear Abdomen: Soft, No masses Extremities: No clubbing, No cyanosis Skin: No rashes, No breakdown Labs LABS Laboratory Tests Test 09/26/18 13:02 09/26/18 16:41 09/26/18 22:31 09/27/18 05:38 Glucose (Fingerstick) 105 mg/dL (70-99) 209 mg/dL (70-99) 299 mg/dL (70-99) White Blood Count 5.1 x10^3/uL (4.0-11.0) Red Blood Count 2.73 x10^6/uL (4.30-5.70) Hemoglobin 10.3 g/dL (13.0-17.5) Hematocrit 30.0 % (39.0-53.0) Mean Corpuscular Volume 110 fL (79-100) Mean Corpuscular Hemoglobin 38 pg (25-35) Mean Corpuscular Hemoglobin Concent 34 g/dL (31-37) Red Cell Distribution Width 15.7 % (11.5-14.5) Platelet Count 64 x10^3/uL (140-400) Neutrophils (%) (Auto) 80 % (31-73) Lymphocytes (%) (Auto) 11 % (24-48) Monocytes (%) (Auto) 7 % (0-9) Eosinophils (%) (Auto) 2 % (0-3) Basophils (%) (Auto) 1 % (0-3) Neutrophils # (Auto) 4.1 x10^3uL (1.8-7.7) Lymphocytes # (Auto) 0.5 x10^3/uL (1.0-4.8) Monocytes # (Auto) 0.4 x10^3/uL (0.0-1.1) Eosinophils # (Auto) 0.1 x10^3/uL (0.0-0.7) Basophils # (Auto) 0.0 x10^3/uL (0.0-0.2) Sodium Level 135 mmol/L (136-145) Potassium Level 4.3 mmol/L (3.5-5.1) Chloride Level 98 mmol/L (98-107) Carbon Dioxide Level 28 mmol/L (21-32) Anion Gap 9 (6-14) Blood Urea Nitrogen 43 mg/dL (8-26) Creatinine 5.1 mg/dL (0.7-1.3) Estimated GFR (Cockcroft-Gault) 10.9 Glucose Level 315 mg/dL (70-99) Calcium Level 8.2 mg/dL (8.5-10.1) Test 09/27/18 11:37 Glucose (Fingerstick) 315 mg/dL (70-99) Review of Systems Review of Systems Pt denies any RIVERA, CP, abd pain, or N/V/D. Assessment and Plan Assessmemt and Plan Problems Medical Problems: (1) Pneumonia Status: Acute Assessment: Acute respiratory failure Sepsis/ septic shock, secondary to pneumonia Coronary artery disease with previous coronary artery bypass grafting Acute metabolic toxic encephalopathy, present upon admission Protein malnutrition present upon admission Status post pacemaker Peripheral vascular disease Abnormal cxr with LLL infiltrate/ effusion Hyperkalemia, resolved Plan: ICU monitoring Monitor labs Home meds Abx PT/OT Oxygen HD per nephrology DVT ppx Comment Review of Relevant I have reviewed the following items sarah (where applicable) has been applied. Labs Laboratory Tests Test 09/25/18 13:00 09/25/18 17:00 09/25/18 23:30 09/26/18 05:10 Nasal Screen MRSA (PCR) Negative (Negative) Glucose (Fingerstick) 108 mg/dL (70-99) 92 mg/dL (70-99) White Blood Count 10.4 x10^3/uL (4.0-11.0) Red Blood Count 3.35 x10^6/uL (4.30-5.70) Hemoglobin 12.7 g/dL (13.0-17.5) Hematocrit 36.8 % (39.0-53.0) Mean Corpuscular Volume 110 fL (79-100) Mean Corpuscular Hemoglobin 38 pg (25-35) Mean Corpuscular Hemoglobin Concent 34 g/dL (31-37) Red Cell Distribution Width 15.6 % (11.5-14.5) Platelet Count 98 x10^3/uL (140-400) Neutrophils (%) (Auto) 85 % (31-73) Lymphocytes (%) (Auto) 9 % (24-48) Monocytes (%) (Auto) 6 % (0-9) Eosinophils (%) (Auto) 1 % (0-3) Basophils (%) (Auto) 0 % (0-3) Neutrophils # (Auto) 8.9 x10^3uL (1.8-7.7) Lymphocytes # (Auto) 0.9 x10^3/uL (1.0-4.8) Monocytes # (Auto) 0.6 x10^3/uL (0.0-1.1) Eosinophils # (Auto) 0.1 x10^3/uL (0.0-0.7) Basophils # (Auto) 0.0 x10^3/uL (0.0-0.2) Sodium Level 137 mmol/L (136-145) Potassium Level 5.5 mmol/L (3.5-5.1) Chloride Level 101 mmol/L (98-107) Carbon Dioxide Level 23 mmol/L (21-32) Anion Gap 13 (6-14) Blood Urea Nitrogen 66 mg/dL (8-26) Creatinine 6.6 mg/dL (0.7-1.3) Estimated GFR (Cockcroft-Gault) 8.1 Glucose Level 141 mg/dL (70-99) Calcium Level 8.4 mg/dL (8.5-10.1) Random Vancomycin Level 20.3 mcg/mL Test 09/26/18 05:13 09/26/18 07:20 09/26/18 13:02 09/26/18 16:41 Glucose (Fingerstick) 131 mg/dL (70-99) 105 mg/dL (70-99) 209 mg/dL (70-99) O2 Saturation 99 % (92-99) Arterial Blood pH 7.32 (7.35-7.45) Arterial Blood pCO2 at Patient Temp 43 mmHg (35-46) Arterial Blood pO2 at Patient Temp 158 mmHg (65-108) Arterial Blood HCO3 22 mmol/L (21-28) Arterial Blood Base Excess -5 mmol/L (-3-3) FiO2 40% bipap Test 09/26/18 22:31 09/27/18 05:38 09/27/18 11:37 Glucose (Fingerstick) 299 mg/dL (70-99) 315 mg/dL (70-99) White Blood Count 5.1 x10^3/uL (4.0-11.0) Red Blood Count 2.73 x10^6/uL (4.30-5.70) Hemoglobin 10.3 g/dL (13.0-17.5) Hematocrit 30.0 % (39.0-53.0) Mean Corpuscular Volume 110 fL (79-100) Mean Corpuscular Hemoglobin 38 pg (25-35) Mean Corpuscular Hemoglobin Concent 34 g/dL (31-37) Red Cell Distribution Width 15.7 % (11.5-14.5) Platelet Count 64 x10^3/uL (140-400) Neutrophils (%) (Auto) 80 % (31-73) Lymphocytes (%) (Auto) 11 % (24-48) Monocytes (%) (Auto) 7 % (0-9) Eosinophils (%) (Auto) 2 % (0-3) Basophils (%) (Auto) 1 % (0-3) Neutrophils # (Auto) 4.1 x10^3uL (1.8-7.7) Lymphocytes # (Auto) 0.5 x10^3/uL (1.0-4.8) Monocytes # (Auto) 0.4 x10^3/uL (0.0-1.1) Eosinophils # (Auto) 0.1 x10^3/uL (0.0-0.7) Basophils # (Auto) 0.0 x10^3/uL (0.0-0.2) Sodium Level 135 mmol/L (136-145) Potassium Level 4.3 mmol/L (3.5-5.1) Chloride Level 98 mmol/L (98-107) Carbon Dioxide Level 28 mmol/L (21-32) Anion Gap 9 (6-14) Blood Urea Nitrogen 43 mg/dL (8-26) Creatinine 5.1 mg/dL (0.7-1.3) Estimated GFR (Cockcroft-Gault) 10.9 Glucose Level 315 mg/dL (70-99) Calcium Level 8.2 mg/dL (8.5-10.1) Laboratory Tests Test 09/26/18 13:02 09/26/18 16:41 09/26/18 22:31 09/27/18 05:38 Glucose (Fingerstick) 105 mg/dL (70-99) 209 mg/dL (70-99) 299 mg/dL (70-99) White Blood Count 5.1 x10^3/uL (4.0-11.0) Red Blood Count 2.73 x10^6/uL (4.30-5.70) Hemoglobin 10.3 g/dL (13.0-17.5) Hematocrit 30.0 % (39.0-53.0) Mean Corpuscular Volume 110 fL (79-100) Mean Corpuscular Hemoglobin 38 pg (25-35) Mean Corpuscular Hemoglobin Concent 34 g/dL (31-37) Red Cell Distribution Width 15.7 % (11.5-14.5) Platelet Count 64 x10^3/uL (140-400) Neutrophils (%) (Auto) 80 % (31-73) Lymphocytes (%) (Auto) 11 % (24-48) Monocytes (%) (Auto) 7 % (0-9) Eosinophils (%) (Auto) 2 % (0-3) Basophils (%) (Auto) 1 % (0-3) Neutrophils # (Auto) 4.1 x10^3uL (1.8-7.7) Lymphocytes # (Auto) 0.5 x10^3/uL (1.0-4.8) Monocytes # (Auto) 0.4 x10^3/uL (0.0-1.1) Eosinophils # (Auto) 0.1 x10^3/uL (0.0-0.7) Basophils # (Auto) 0.0 x10^3/uL (0.0-0.2) Sodium Level 135 mmol/L (136-145) Potassium Level 4.3 mmol/L (3.5-5.1) Chloride Level 98 mmol/L (98-107) Carbon Dioxide Level 28 mmol/L (21-32) Anion Gap 9 (6-14) Blood Urea Nitrogen 43 mg/dL (8-26) Creatinine 5.1 mg/dL (0.7-1.3) Estimated GFR (Cockcroft-Gault) 10.9 Glucose Level 315 mg/dL (70-99) Calcium Level 8.2 mg/dL (8.5-10.1) Test 09/27/18 11:37 Glucose (Fingerstick) 315 mg/dL (70-99) Microbiology 09/25/18 Blood Culture - Preliminary, Resulted NO GROWTH AFTER 2 DAYS Medications Current Medications Naloxone HCl (Narcan) 0.2 mg 1X ONCE IV Last administered on 09/25/18at 08:47 ; Start 09/25/18 at 08:45; Stop 09/25/18 at 08:46; Status DC Sodium Chloride 500 ml @ 500 mls/hr 1X ONCE IV Last administered on at 08:49; Start 09/25/18 at 08:45; Stop 09/25/18 at 09:44; Status DC Vancomycin HCl (Vanco Per Pharmacy) 1 each PRN DAILY PRN MC SEE COMMENTS Last administered on 09/26/18at 15:16; Start 09/25/18 at 09:30 Piperacillin Sod/ Tazobactam Sod (Zosyn Per Pharmacy) 1 each PRN DAILY PRN MC SEE COMMENTS; Start 09/25/18 at 09:30 Piperacillin Sod/ Tazobactam Sod 2.25 gm/Sodium Chloride 50 ml @ 100 mls/hr 1X ONCE IV Last administered on 09/25/18at 09:48; Start 09/25/18 at 09:30; Stop 09/25/18 at 09:59; Status DC Vancomycin HCl 1.75 gm/Sodium Chloride 500 ml @ 250 mls/hr 1X ONCE IV Last administered on 09/25/18at 10:25; Start 09/25/18 at 09:45; Stop 09/25/18 at 11 :44; Status DC Sodium Chloride 500 ml @ 500 mls/hr 1X ONCE IV Last administered on at 09:48; Start 09/25/18 at 09:45; Stop 09/25/18 at 10:44; Status DC Sodium Chloride 500 ml @ 500 mls/hr 1X ONCE IV Last administered on at 11:16; Start 09/25/18 at 10:30; Stop 09/25/18 at 11:29; Status DC Norepinephrine Bitartrate 250 ml @ 0 mls/hr 1X ONCE IV Last administered on at 11:13; Start 09/25/18 at 10:30; Stop 09/25/18 at 14:39; Status DC Lidocaine HCl (Lidocaine 1% 20ml Vial) 20 ml STK-MED ONCE .ROUTE ; Start at 10:41; Stop 09/25/18 at 10:42; Status DC Vasopressin 40 unit/Dextrose 102 ml @ 6 mls/hr CONT PRN IV SEE I/O RECORD Last administered on 09/26/18at 04:12; Start 09/25/18 at 13:15 Norepinephrine Bitartrate 250 ml @ 9.375 mls/ hr CONT PRN IV SEE I/O RECORD Last administered on 09/25/18at 19:33; Start 09/25/18 at 14:45 Piperacillin Sod/ Tazobactam Sod 2.25 gm/Sodium Chloride 50 ml @ 100 mls/hr Q8HRS IV Last administered on 09/27/18at 06:03; Start 09/25/18 at 16:00 Vancomycin HCl (Vancomycin Random Level) 1 each 1X ONCE MC Last administered on 09/26/18at 05:35; Start 09/26/18 at 06:00; Stop 09/26/18 at 06:02; Status DC Acetaminophen (Tylenol) 650 mg PRN Q6HRS PRN PO FEVER Last administered on at 21:31; Start 09/25/18 at 16:30 Ondansetron HCl (Zofran) 4 mg PRN Q6HRS PRN IV NAUSEA/VOMITING; Start at 16:30 Docusate Sodium (Colace) 100 mg PRN DAILY PRN PO CONSTIPATION; Start 09/25/18 at 16:30 Sodium Chloride 1,000 ml @ 75 mls/hr [id number] IV Last administered on at 05:51; Start 09/25/18 at 16:30; Stop 09/26/18 at 18:58; Status DC Famotidine (Pepcid Vial) 20 mg Q48H IVP Last administered on 09/25/18at 21:22; Start 09/25/18 at 21:00 Heparin Sodium (Porcine) (Heparin Sodium) 5,000 unit Q8HRS SQ Last administered on 09/27/18at 06:04; Start 09/25/18 at 22:00 Insulin Human Lispro (HumaLOG) 0-7 UNITS TIDWMEALS SQ Last administered on at 11:40; Start 09/25/18 at 17:00 Dextrose (Dextrose 50%-Water Syringe) 12.5 gm PRN Q15MIN PRN IV SEE COMMENTS; Start 09/25/18 at 16:30 Albuterol/ Ipratropium (Duoneb) 3 ml RTQID NEB Last administered on 09/27/18at 10:41; Start 09/25/18 at 20:00 Albuterol Sulfate (Ventolin Neb Soln) 2.5 mg PRN Q2HR PRN NEB SHORTNESS OF BREATH; Start 09/25/18 at 16:30 Guaifenesin (Mucinex) 600 mg BID PO Last administered on 09/27/18at 10:51; Start 09/25/18 at 21:00 Sodium Chloride 1,000 ml @ 1,000 mls/hr Q1H PRN IV hypotension; Start at 06:43; Stop 09/26/18 at 12:42; Status DC Albumin Human 200 ml @ 200 mls/hr 1X PRN PRN IV Hypotension; Start 09/26/18 at 06:45; Stop 09/26/18 at 12:54; Status DC Sodium Chloride (Normal Saline Flush) 10 ml 1X PRN PRN IV AP 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; Start 09/26/18 at 06:45; Stop 09/27/18 at 06:44; Status DC Sodium Chloride (Normal Saline Flush) 10 ml 1X PRN PRN IV PETROL T[employer]ER [employer]IVER 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; Start 09/26/18 at 06:45; Stop 09/27/18 at 06:44; Status DC Sodium Chloride 1,000 ml @ 400 mls/hr Q2H30M PRN IV PATENCY; Start 09/26/18 at 06:43; Stop 09/26/18 at 18:42; Status DC Info (PHARMACY MONITORING -- do not chart) 1 each PRN DAILY PRN MC SEE COMMENTS ; Start 09/26/18 at 06:45; Status UNV Info (PHARMACY MONITORING -- do not chart) 1 each PRN DAILY PRN MC SEE COMMENTS ; Start 09/26/18 at 06:45 Vancomycin HCl 500 mg/Sodium Chloride 100 ml @ 100 mls/hr TuThSa IV Last administered on 09/26/18at 16:45; Start 09/26/18 at 16:00 Active Scripts Active Humalog (Insulin Lispro) 100 Unit/1 Ml Insuln.pen 10 Units SQ TIDWMEALS 30 Days Haloperidol 2 Mg Tablet 0.5 Tab PO Q12HR Lantus Solostar (Insulin Glargine,Hum.rec.anlog) 100 Unit/1 Ml Insuln.pen 24 Unit SQ QHS 30 Days Alprazolam 0.5 Mg Tablet 1 Tab PO HS PRN Reported Tamsulosin Hcl 0.4 Mg Cap.er.24h 0.8 Mg PO DAILY Spironolactone 25 Mg Tablet 1 Tab PO DAILY Senokot (Sennosides) 8.6 Mg Tablet 1 Tab PO BID Requip (Ropinirole Hcl) 1 Mg Tablet 1 Tab PO QHS Lyrica (Pregabalin) 75 Mg Capsule 1 Cap PO BID Super Enzyme Caps (Pancreat/Bet Hcl/Pep/Brom/Pap) 1 Each Capsule 4 Cap PO QID Magnesium Oxide 400 Mg Tablet 1 Tab PO DAILY Gemfibrozil 600 Mg Tablet 1 Tab PO BIDWMEALS Folic Acid 1 Mg Tablet 1 Tab PO DAILY Fish Oil 1,000 Mg Capsule (Chandler-3 Fatty Acids/Fish Oil) 1 Each Capsule 2,000 Each PO BID Cyclobenzaprine Hcl 10 Mg Tablet 1 Tab PO BID Irina Elias 6,000 Units Capsule (Lipase/Protease/Amylase) 1 Each Capsule. 1 Each PO QID Vitamin D3 (Cholecalciferol (Vitamin D3)) 1,000 Unit Tablet 3 Tab PO DAILY Aspirin Ec (Aspirin) 81 Mg Tablet.dr 1 Tab PO DAILY Acetaminophen 500 Mg Tablet 1,000 Mg PO PRN DAILY PRN Midodrine Hcl 5 Mg Tablet 5 Mg PO 3X/WEEK Hydroxyzine Hcl 25 Mg Tablet 25 Mg PO QID Calcium Acetate 667 Mg Tablet 2 Cap PO BIDAC Prevalite Packet (Cholestyramine/Aspartame) 4 Gm Powd.pack 4 Gm PO BID Toprol Xl (Metoprolol Succinate) 25 Mg Tab.er.24h 1 Tab PO DAILY Furosemide 40 Mg Tablet 2 Tab PO DAILY Diltiazem 24HR Cd (Diltiazem Hcl) 120 Mg Cap.er.24h 1 Cap PO DAILY Percocet 5-325 Mg Tablet (Oxycodone/Acetaminophen) 1 Each Tablet 1 Tab PO QID Humalog (Insulin Lispro) 100 Unit/1 Ml Cartridge 8 Unit SQ TIDAC Prilosec Otc (Omeprazole Magnesium) 20 Mg Tablet.dr 20 Mg PO DAILY Vitals/I & O Vital Sign - Last 24 Hours 09/26/18 09/26/18 09/26/18 09/26/18 13:00 13:30 14:00 14:58 Pulse 98 106 99 Resp 22 21 20 B/P (MAP) 109/61 (77) 97/55 (69) 92/54 (67) Pulse Ox 99 97 100 94 O2 Delivery Nasal Cannula Nasal Cannula Nasal Cannula Nasal Cannula O2 Flow Rate 2.0 2.0 2.0 4.0 09/26/18 09/26/18 09/26/18 09/26/18 15:00 16:00 16:00 16:30 Temp 97.7 97.7 Pulse 102 107 100 Resp 19 18 15 B/P (MAP) 110/60 (77) 108/64 (79) 107/52 (70) Pulse Ox 98 97 98 O2 Delivery Nasal Cannula Nasal Cannula Nasal Cannula Nasal Cannula O2 Flow Rate 2.0 2.0 2.0 2.0 09/26/18 09/26/18 09/26/18 09/26/18 17:00 18:00 19:00 19:29 Temp 98.6 98.6 Pulse 102 108 96 Resp 18 B/P (MAP) 101/49 (66) 111/52 (71) 102/52 (69) Pulse Ox 98 95 92 98 O2 Delivery Nasal Cannula Nasal Cannula Nasal Cannula Nasal Cannula O2 Flow Rate 2.0 2.0 2.0 4.0 09/26/18 09/26/18 09/26/18 09/26/18 20:00 20:00 21:00 22:00 Temp 98.1 98.1 Pulse 106 92 90 Resp 20 18 20 B/P (MAP) 111/50 (70) 99/45 (63) 90/55 (67) Pulse Ox 98 96 96 O2 Delivery Nasal Cannula Nasal Cannula Nasal Cannula Nasal Cannula O2 Flow Rate 2.0 2.0 2.0 2.0 09/26/18 09/26/18 09/26/18 09/26/18 23:00 23:00 23:59 23:59 Temp 98.4 98.4 Pulse 92 92 Resp 20 18 B/P (MAP) 112/54 (73) 83/44 (57) Pulse Ox 100 100 100 O2 Delivery BiPAP/CPAP Nasal Cannula Nasal Cannula Nasal Cannula O2 Flow Rate 2.0 2.0 2.0 09/26/18 09/27/18 09/27/18 09/27/18 23:59 01:00 02:00 03:00 Pulse 87 92 90 Resp 15 21 19 B/P (MAP) 92/53 (66) 101/51 (68) 87/55 (66) Pulse Ox 96 97 96 O2 Delivery Nasal Cannula Nasal Cannula Nasal Cannula O2 Flow Rate 2.0 2.0 2.0 2.0 09/27/18 09/27/18 09/27/18 09/27/18 04:00 04:00 04:00 05:00 Temp 97.9 97.9 Pulse 103 101 Resp 22 20 B/P (MAP) 87/54 (65) 105/54 (71) Pulse Ox 93 O2 Delivery Nasal Cannula Nasal Cannula Nasal Cannula O2 Flow Rate 2.0 2.0 2.0 2.0 09/27/18 09/27/18 09/27/18 09/27/18 06:00 07:00 08:00 08:00 Temp 98.1 98.1 Pulse 84 78 78 Resp 18 B/P (MAP) 104/49 (67) 90/41 (57) 109/55 (73) Pulse Ox 98 91 92 O2 Delivery Nasal Cannula Nasal Cannula Nasal Cannula Nasal Cannula O2 Flow Rate 2.0 2.0 2.0 2.0 09/27/18 09/27/18 09/27/18 09/27/18 09:00 10:00 10:43 11:00 Pulse 86 88 86 B/P (MAP) 101/59 (73) 99/74 (82) 120/52 (74) Pulse Ox 93 100 98 100 O2 Delivery Nasal Cannula Nasal Cannula Nasal Cannula Nasal Cannula O2 Flow Rate 2.0 2.0 4.0 2.0 Intake and Output 09/26/18 09/26/18 09/27/18 15:00 23:00 07:00 Intake Total 50 ml 910 ml 513 ml Output Total 0 ml 250 ml 0 ml Balance 50 ml 660 ml 513 ml WIL HUNG III DO Sep 27, 2018 12:49
[2018-09-27] MEDS: VANCOMYCIN PER PHARMACY MC PRN (13:37)
[2018-09-27] MEDS: ACETAMINOPHEN 325 MG TABLET. PO PRN (15:45)
[2018-09-27] MEDS: LACTOBACILLUS RHAMNOSUS GG 1 CAPSULE. PO SCH (22:12)
[2018-09-27] MEDS: FAMOTIDINE 20 MG/2 ML VIAL IVP SCH (22:12)
[2018-09-28 03:11] VITALS: BP 116/65
[2018-09-28] MEDS: PIPERACILLIN/TAZOBACTAM 2.25 GM in IV NORMAL SALINE 50ML 50 ML IV SCH ×3 (06:25→21:48)
[2018-09-28] MEDS: HEPARIN for SUB-Q USE 5,000 UNIT/ML VIAL. SQ SCH ×3 (06:26→21:46)
[2018-09-28 06:31] LABS: BASO % 1 % (0-3); CALCIUM 8.4 mg/dL (8.5-10.1); CREATININE 6.2 mg/dL (0.7-1.3); EOS # 0.1 x10^3/uL (0.0-0.7); EOS % 3 % (0-3); GFR 8.7; HEMATOCRIT 29.2 % (39.0-53.0); HEMOGLOBIN 9.9 g/dL (13.0-17.5); LYMPH # 0.7 x10^3/uL (1.0-4.8); LYMPH % 18 % (24-48); MEAN CORPUSCULAR HEMOGLOBIN 37 pg (25-35); MEAN CORPUSCULAR HGB CONC 34 g/dL (31-37); MEAN CORPUSCULAR VOLUME 110 fL (79-100); MONO # 0.3 x10^3/uL (0.0-1.1); MONO % 8 % (0-9); NEUT # 2.6 x10^3uL (1.8-7.7); NEUT % 69 % (31-73); PLATELET COUNT 56 x10^3/uL (140-400); POTASSIUM 3.9 mmol/L (3.5-5.1); RED BLOOD COUNT 2.67 x10^6/uL (4.30-5.70); RED CELL DISTRIBUTION WIDTH 15.4 % (11.5-14.5); WHITE BLOOD COUNT 3.8 x10^3/uL (4.0-11.0)
[2018-09-28 07:00] VITALS: BP 110/55
[2018-09-28] MEDS: IPRATRPIUM/ALBUTEROL 0.5/2.5MG 3 ML NEBU. NEB SCH ×4 (07:10→20:05)
[2018-09-28] MEDS: INSULIN LISPRO 300 UNITS/3 ML INSULN.PEN. SQ SCH ×3 (08:00→18:14)
[2018-09-28] MEDS: LACTOBACILLUS RHAMNOSUS GG 1 CAPSULE. PO SCH ×2 (08:41→21:44)
[2018-09-28] MEDS: ACETAMINOPHEN 325 MG TABLET. PO PRN (08:41)
--- NOTE | 2018-09-28 10:26 | PDOC ---
PROGRESS NOTES Chief Complaint Chief Complaint Acute respiratory failure Sepsis/ septic shock, secondary to pneumonia Coronary artery disease with previous coronary artery bypass grafting Acute metabolic toxic encephalopathy, present upon admission Protein malnutrition present upon admission Status post pacemaker Peripheral vascular disease Abnormal cxr with LLL infiltrate/ effusion Hyperkalemia, resolved History of Present Illness History of Present Illness Pt seen and examined in ICU Sitting in chair, calm, cooperative, oxygen via nasal cannula Discussed with RN at bedside Vitals Vitals Vital Signs Date Time Temp Pulse Resp B/P (MAP) Pulse Ox O2 Delivery O2 Flow Rate FiO2 09/28/18 08:06 Nasal Cannula 4.0 09/28/18 07:12 100 09/28/18 07:00 96.6 64 18 110/55 (73) 96.6 Physical Exam Physical Exam GENERAL: alert awake male in nad HEENT: Normal conjunctivae. No petechia. nasal o2 NECK: Supple. Left IJ site looks okay. LUNGS: Decreased aeration. HEART: S1, S2, tachycardia. ABDOMEN: Soft, nontender, obese. EXTREMITIES: No edema. Left upper extremity AV fistula site looks unremarkable. Lower extremity superficial abrasions present, not infected. SKIN: Warm, dry. No generalized rash. LINES: Lt IJ looks ok General: Alert, Cooperative, No acute distress Heart: Regular rate, Normal S1, Normal S2 Lungs: Clear Abdomen: Soft, No masses Extremities: No clubbing, No cyanosis Skin: No rashes, No breakdown Labs LABS Laboratory Tests Test 09/27/18 11:37 09/27/18 17:20 09/28/18 06:10 09/28/18 07:50 Glucose (Fingerstick) 315 mg/dL (70-99) 291 mg/dL (70-99) 141 mg/dL (70-99) White Blood Count 3.8 x10^3/uL (4.0-11.0) Red Blood Count 2.67 x10^6/uL (4.30-5.70) Hemoglobin 9.9 g/dL (13.0-17.5) Hematocrit 29.2 % (39.0-53.0) Mean Corpuscular Volume 110 fL (79-100) Mean Corpuscular Hemoglobin 37 pg (25-35) Mean Corpuscular Hemoglobin Concent 34 g/dL (31-37) Red Cell Distribution Width 15.4 % (11.5-14.5) Platelet Count 56 x10^3/uL (140-400) Neutrophils (%) (Auto) 69 % (31-73) Lymphocytes (%) (Auto) 18 % (24-48) Monocytes (%) (Auto) 8 % (0-9) Eosinophils (%) (Auto) 3 % (0-3) Basophils (%) (Auto) 1 % (0-3) Neutrophils # (Auto) 2.6 x10^3uL (1.8-7.7) Lymphocytes # (Auto) 0.7 x10^3/uL (1.0-4.8) Monocytes # (Auto) 0.3 x10^3/uL (0.0-1.1) Eosinophils # (Auto) 0.1 x10^3/uL (0.0-0.7) Basophils # (Auto) 0.0 x10^3/uL (0.0-0.2) Sodium Level 139 mmol/L (136-145) Potassium Level 3.9 mmol/L (3.5-5.1) Chloride Level 99 mmol/L (98-107) Carbon Dioxide Level 25 mmol/L (21-32) Anion Gap 15 (6-14) Blood Urea Nitrogen 56 mg/dL (8-26) Creatinine 6.2 mg/dL (0.7-1.3) Estimated GFR (Cockcroft-Gault) 8.7 Glucose Level 153 mg/dL (70-99) Calcium Level 8.4 mg/dL (8.5-10.1) Assessment and Plan Assessmemt and Plan Problems Medical Problems: (1) Pneumonia Status: Acute Sepsis/ septic shock. secondary to pneumonia. IV Abx - ID and Pulm following , Now on O2(Off Bipap) Coronary artery disease Acute metabolic toxic encephalopathy, present upon admission. Comment Review of Relevant I have reviewed the following items sarah (where applicable) has been applied. Labs Laboratory Tests Test 09/26/18 13:02 09/26/18 16:41 09/26/18 22:31 09/27/18 05:38 Glucose (Fingerstick) 105 mg/dL (70-99) 209 mg/dL (70-99) 299 mg/dL (70-99) White Blood Count 5.1 x10^3/uL (4.0-11.0) Red Blood Count 2.73 x10^6/uL (4.30-5.70) Hemoglobin 10.3 g/dL (13.0-17.5) Hematocrit 30.0 % (39.0-53.0) Mean Corpuscular Volume 110 fL (79-100) Mean Corpuscular Hemoglobin 38 pg (25-35) Mean Corpuscular Hemoglobin Concent 34 g/dL (31-37) Red Cell Distribution Width 15.7 % (11.5-14.5) Platelet Count 64 x10^3/uL (140-400) Neutrophils (%) (Auto) 80 % (31-73) Lymphocytes (%) (Auto) 11 % (24-48) Monocytes (%) (Auto) 7 % (0-9) Eosinophils (%) (Auto) 2 % (0-3) Basophils (%) (Auto) 1 % (0-3) Neutrophils # (Auto) 4.1 x10^3uL (1.8-7.7) Lymphocytes # (Auto) 0.5 x10^3/uL (1.0-4.8) Monocytes # (Auto) 0.4 x10^3/uL (0.0-1.1) Eosinophils # (Auto) 0.1 x10^3/uL (0.0-0.7) Basophils # (Auto) 0.0 x10^3/uL (0.0-0.2) Sodium Level 135 mmol/L (136-145) Potassium Level 4.3 mmol/L (3.5-5.1) Chloride Level 98 mmol/L (98-107) Carbon Dioxide Level 28 mmol/L (21-32) Anion Gap 9 (6-14) Blood Urea Nitrogen 43 mg/dL (8-26) Creatinine 5.1 mg/dL (0.7-1.3) Estimated GFR (Cockcroft-Gault) 10.9 Glucose Level 315 mg/dL (70-99) Calcium Level 8.2 mg/dL (8.5-10.1) Test 09/27/18 11:37 09/27/18 17:20 09/28/18 06:10 09/28/18 07:50 Glucose (Fingerstick) 315 mg/dL (70-99) 291 mg/dL (70-99) 141 mg/dL (70-99) White Blood Count 3.8 x10^3/uL (4.0-11.0) Red Blood Count 2.67 x10^6/uL (4.30-5.70) Hemoglobin 9.9 g/dL (13.0-17.5) Hematocrit 29.2 % (39.0-53.0) Mean Corpuscular Volume 110 fL (79-100) Mean Corpuscular Hemoglobin 37 pg (25-35) Mean Corpuscular Hemoglobin Concent 34 g/dL (31-37) Red Cell Distribution Width 15.4 % (11.5-14.5) Platelet Count 56 x10^3/uL (140-400) Neutrophils (%) (Auto) 69 % (31-73) Lymphocytes (%) (Auto) 18 % (24-48) Monocytes (%) (Auto) 8 % (0-9) Eosinophils (%) (Auto) 3 % (0-3) Basophils (%) (Auto) 1 % (0-3) Neutrophils # (Auto) 2.6 x10^3uL (1.8-7.7) Lymphocytes # (Auto) 0.7 x10^3/uL (1.0-4.8) Monocytes # (Auto) 0.3 x10^3/uL (0.0-1.1) Eosinophils # (Auto) 0.1 x10^3/uL (0.0-0.7) Basophils # (Auto) 0.0 x10^3/uL (0.0-0.2) Sodium Level 139 mmol/L (136-145) Potassium Level 3.9 mmol/L (3.5-5.1) Chloride Level 99 mmol/L (98-107) Carbon Dioxide Level 25 mmol/L (21-32) Anion Gap 15 (6-14) Blood Urea Nitrogen 56 mg/dL (8-26) Creatinine 6.2 mg/dL (0.7-1.3) Estimated GFR (Cockcroft-Gault) 8.7 Glucose Level 153 mg/dL (70-99) Calcium Level 8.4 mg/dL (8.5-10.1) Laboratory Tests Test 09/27/18 11:37 09/27/18 17:20 09/28/18 06:10 09/28/18 07:50 Glucose (Fingerstick) 315 mg/dL (70-99) 291 mg/dL (70-99) 141 mg/dL (70-99) White Blood Count 3.8 x10^3/uL (4.0-11.0) Red Blood Count 2.67 x10^6/uL (4.30-5.70) Hemoglobin 9.9 g/dL (13.0-17.5) Hematocrit 29.2 % (39.0-53.0) Mean Corpuscular Volume 110 fL (79-100) Mean Corpuscular Hemoglobin 37 pg (25-35) Mean Corpuscular Hemoglobin Concent 34 g/dL (31-37) Red Cell Distribution Width 15.4 % (11.5-14.5) Platelet Count 56 x10^3/uL (140-400) Neutrophils (%) (Auto) 69 % (31-73) Lymphocytes (%) (Auto) 18 % (24-48) Monocytes (%) (Auto) 8 % (0-9) Eosinophils (%) (Auto) 3 % (0-3) Basophils (%) (Auto) 1 % (0-3) Neutrophils # (Auto) 2.6 x10^3uL (1.8-7.7) Lymphocytes # (Auto) 0.7 x10^3/uL (1.0-4.8) Monocytes # (Auto) 0.3 x10^3/uL (0.0-1.1) Eosinophils # (Auto) 0.1 x10^3/uL (0.0-0.7) Basophils # (Auto) 0.0 x10^3/uL (0.0-0.2) Sodium Level 139 mmol/L (136-145) Potassium Level 3.9 mmol/L (3.5-5.1) Chloride Level 99 mmol/L (98-107) Carbon Dioxide Level 25 mmol/L (21-32) Anion Gap 15 (6-14) Blood Urea Nitrogen 56 mg/dL (8-26) Creatinine 6.2 mg/dL (0.7-1.3) Estimated GFR (Cockcroft-Gault) 8.7 Glucose Level 153 mg/dL (70-99) Calcium Level 8.4 mg/dL (8.5-10.1) Microbiology 09/25/18 Blood Culture - Preliminary, Resulted NO GROWTH AFTER 3 DAYS Medications Current Medications Naloxone HCl (Narcan) 0.2 mg 1X ONCE IV Last administered on 09/25/18at 08:47 ; Start 09/25/18 at 08:45; Stop 09/25/18 at 08:46; Status DC Sodium Chloride 500 ml @ 500 mls/hr 1X ONCE IV Last administered on at 08:49; Start 09/25/18 at 08:45; Stop 09/25/18 at 09:44; Status DC Vancomycin HCl (Vanco Per Pharmacy) 1 each PRN DAILY PRN MC SEE COMMENTS Last administered on 09/27/18at 13:37; Start 09/25/18 at 09:30 Piperacillin Sod/ Tazobactam Sod (Zosyn Per Pharmacy) 1 each PRN DAILY PRN MC SEE COMMENTS; Start 09/25/18 at 09:30 Piperacillin Sod/ Tazobactam Sod 2.25 gm/Sodium Chloride 50 ml @ 100 mls/hr 1X ONCE IV Last administered on 09/25/18at 09:48; Start 09/25/18 at 09:30; Stop 09/25/18 at 09:59; Status DC Vancomycin HCl 1.75 gm/Sodium Chloride 500 ml @ 250 mls/hr 1X ONCE IV Last administered on 09/25/18at 10:25; Start 09/25/18 at 09:45; Stop 09/25/18 at 11 :44; Status DC Sodium Chloride 500 ml @ 500 mls/hr 1X ONCE IV Last administered on at 09:48; Start 09/25/18 at 09:45; Stop 09/25/18 at 10:44; Status DC Sodium Chloride 500 ml @ 500 mls/hr 1X ONCE IV Last administered on at 11:16; Start 09/25/18 at 10:30; Stop 09/25/18 at 11:29; Status DC Norepinephrine Bitartrate 250 ml @ 0 mls/hr 1X ONCE IV Last administered on at 11:13; Start 09/25/18 at 10:30; Stop 09/25/18 at 14:39; Status DC Lidocaine HCl (Lidocaine 1% 20ml Vial) 20 ml STK-MED ONCE .ROUTE ; Start at 10:41; Stop 09/25/18 at 10:42; Status DC Vasopressin 40 unit/Dextrose 102 ml @ 6 mls/hr CONT PRN IV SEE I/O RECORD Last administered on 09/26/18at 04:12; Start 09/25/18 at 13:15; Stop 09/27/18 at 16 :31; Status DC Norepinephrine Bitartrate 250 ml @ 9.375 mls/ hr CONT PRN IV SEE I/O RECORD Last administered on 09/25/18at 19:33; Start 09/25/18 at 14:45; Stop 09/27/18 at 16:31; Status DC Piperacillin Sod/ Tazobactam Sod 2.25 gm/Sodium Chloride 50 ml @ 100 mls/hr Q8HRS IV Last administered on 09/28/18at 06:25; Start 09/25/18 at 16:00 Vancomycin HCl (Vancomycin Random Level) 1 each 1X ONCE MC Last administered on 09/26/18at 05:35; Start 09/26/18 at 06:00; Stop 09/26/18 at 06:02; Status DC Acetaminophen (Tylenol) 650 mg PRN Q6HRS PRN PO FEVER Last administered on 09/28at 08:41; Start 09/25/18 at 16:30 Ondansetron HCl (Zofran) 4 mg PRN Q6HRS PRN IV NAUSEA/VOMITING; Start at 16:30 Docusate Sodium (Colace) 100 mg PRN DAILY PRN PO CONSTIPATION; Start 09/25/18 at 16:30 Sodium Chloride 1,000 ml @ 75 mls/hr [id number] IV Last administered on at 05:51; Start 09/25/18 at 16:30; Stop 09/26/18 at 18:58; Status DC Famotidine (Pepcid Vial) 20 mg Q48H IVP Last administered on 09/27/18at 22:12; Start 09/25/18 at 21:00 Heparin Sodium (Porcine) (Heparin Sodium) 5,000 unit Q8HRS SQ Last administered on 09/28/18at 06:26; Start 09/25/18 at 22:00 Insulin Human Lispro (HumaLOG) 0-7 UNITS TIDWMEALS SQ Last administered on at 18:07; Start 09/25/18 at 17:00 Dextrose (Dextrose 50%-Water Syringe) 12.5 gm PRN Q15MIN PRN IV SEE COMMENTS; Start 09/25/18 at 16:30 Albuterol/ Ipratropium (Duoneb) 3 ml RTQID NEB Last administered on 09/28/18at 07:10; Start 09/25/18 at 20:00 Albuterol Sulfate (Ventolin Neb Soln) 2.5 mg PRN Q2HR PRN NEB SHORTNESS OF BREATH; Start 09/25/18 at 16:30 Guaifenesin (Mucinex) 600 mg BID PO Last administered on 09/27/18at 22:12; Start 09/25/18 at 21:00 Sodium Chloride 1,000 ml @ 1,000 mls/hr Q1H PRN IV hypotension; Start at 06:43; Stop 09/26/18 at 12:42; Status DC Albumin Human 200 ml @ 200 mls/hr 1X PRN PRN IV Hypotension; Start 09/26/18 at 06:45; Stop 09/26/18 at 12:54; Status DC Sodium Chloride (Normal Saline Flush) 10 ml 1X PRN PRN IV AP 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; Start 09/26/18 at 06:45; Stop 09/27/18 at 06:44; Status DC Sodium Chloride (Normal Saline Flush) 10 ml 1X PRN PRN IV 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; Start 09/26/18 at 06:45; Stop 09/27/18 at 06:44; Status DC Sodium Chloride 1,000 ml @ 400 mls/hr Q2H30M PRN IV PATENCY; Start 09/26/18 at 06:43; Stop 09/26/18 at 18:42; Status DC Info (PHARMACY MONITORING -- do not chart) 1 each PRN DAILY PRN MC SEE COMMENTS ; Start 09/26/18 at 06:45; Status UNV Info (PHARMACY MONITORING -- do not chart) 1 each PRN DAILY PRN MC SEE COMMENTS ; Start 09/26/18 at 06:45 Vancomycin HCl 500 mg/Sodium Chloride 100 ml @ 100 mls/hr TuThSa IV Last administered on 09/26/18at 16:45; Start 09/26/18 at 16:00 Lactobacillus Rhamnosus (Culturelle) 1 cap BID PO Last administered on at 22:12; Start 09/27/18 at 21:00 Active Scripts Active Humalog (Insulin Lispro) 100 Unit/1 Ml Insuln.pen 10 Units SQ TIDWMEALS 30 Days Haloperidol 2 Mg Tablet 0.5 Tab PO Q12HR Lantus Solostar (Insulin Glargine,Hum.rec.anlog) 100 Unit/1 Ml Insuln.pen 24 Unit SQ QHS 30 Days Alprazolam 0.5 Mg Tablet 1 Tab PO HS PRN Reported Tamsulosin Hcl 0.4 Mg Cap.er.24h 0.8 Mg PO DAILY Spironolactone 25 Mg Tablet 1 Tab PO DAILY Senokot (Sennosides) 8.6 Mg Tablet 1 Tab PO BID Requip (Ropinirole Hcl) 1 Mg Tablet 1 Tab PO QHS Lyrica (Pregabalin) 75 Mg Capsule 1 Cap PO BID Super Enzyme Caps (Pancreat/Bet Hcl/Pep/Brom/Pap) 1 Each Capsule 4 Cap PO QID Magnesium Oxide 400 Mg Tablet 1 Tab PO DAILY Gemfibrozil 600 Mg Tablet 1 Tab PO BIDWMEALS Folic Acid 1 Mg Tablet 1 Tab PO DAILY Fish Oil 1,000 Mg Capsule (Barton-3 Fatty Acids/Fish Oil) 1 Each Capsule 2,000 Each PO BID Cyclobenzaprine Hcl 10 Mg Tablet 1 Tab PO BID Creon Dr 6,000 Units Capsule (Lipase/Protease/Amylase) 1 Each Capsule.dr 1 Each PO QID Vitamin D3 (Cholecalciferol (Vitamin D3)) 1,000 Unit Tablet 3 Tab PO DAILY Aspirin Ec (Aspirin) 81 Mg Tablet.dr 1 Tab PO DAILY Acetaminophen 500 Mg Tablet 1,000 Mg PO PRN DAILY PRN Midodrine Hcl 5 Mg Tablet 5 Mg PO 3X/WEEK Hydroxyzine Hcl 25 Mg Tablet 25 Mg PO QID Calcium Acetate 667 Mg Tablet 2 Cap PO BIDAC Prevalite Packet (Cholestyramine/Aspartame) 4 Gm Powd.pack 4 Gm PO BID Toprol Xl (Metoprolol Succinate) 25 Mg Tab.er.24h 1 Tab PO DAILY Furosemide 40 Mg Tablet 2 Tab PO DAILY Diltiazem 24HR Cd (Diltiazem Hcl) 120 Mg Cap.er.24h 1 Cap PO DAILY Percocet 5-325 Mg Tablet (Oxycodone/Acetaminophen) 1 Each Tablet 1 Tab PO QID Humalog (Insulin Lispro) 100 Unit/1 Ml Cartridge 8 Unit SQ TIDAC Prilosec Otc (Omeprazole Magnesium) 20 Mg Tablet.dr 20 Mg PO DAILY Vitals/I & O Vital Sign - Last 24 Hours 09/27/18 09/27/18 09/27/18 09/27/18 10:43 11:00 12:00 19:02 Temp 97.4 97.4 Pulse 86 90 Resp 23 B/P (MAP) 120/52 (74) 108/59 (75) Pulse Ox 98 100 100 98 O2 Delivery Nasal Cannula Nasal Cannula Nasal Cannula Nasal Cannula O2 Flow Rate 4.0 2.0 2.0 4.0 09/27/18 09/27/18 09/28/18 09/28/18 19:45 23:36 03:11 07:00 Temp 97.5 97.5 96.6 97.5 97.5 96.6 Pulse 111 111 64 Resp 18 18 18 B/P (MAP) 130/49 (76) 116/65 (82) 110/55 (73) Pulse Ox 100 100 94 O2 Delivery Nasal Cannula Nasal Cannula Nasal Cannula Nasal Cannula O2 Flow Rate 4.0 4.0 4.0 09/28/18 09/28/18 07:12 08:06 Pulse Ox 100 O2 Delivery Nasal Cannula Nasal Cannula O2 Flow Rate 4.0 4.0 Intake and Output 09/27/18 09/27/18 09/28/18 15:00 23:00 07:00 Intake Total 240 ml 120 ml 0 ml Output Total 0 ml Balance 240 ml 120 ml 0 ml JENNIFER EPPERSON MD Sep 28, 2018 10:26
--- NOTE | 2018-09-28 10:28 | PDOC ---
SUBJECTIVE ROS Confused-? baseline OBJECTIVE Vital Signs Vital Signs Date Time Temp Pulse Resp B/P (MAP) Pulse Ox O2 Delivery O2 Flow Rate FiO2 09/28/18 08:06 Nasal Cannula 4.0 09/28/18 07:12 100 09/28/18 07:00 96.6 64 18 110/55 (73) 96.6 I & 0 Intake and Output 09/28/18 07:00 Intake Total 360 ml Output Total 0 ml Balance 360 ml Intake Oral 360 ml Output Urine Total 0 ml # Voids 1 # Bowel Movements 1 PHYSICAL EXAM Physical Exam GENERAL: awake , NAD HEENT: OM moist ,nasal o2 NECK: Supple. Left IJ LUNGS: Few Ronchi ant, Non labored HEART: S1, S2, tachycardia. ABDOMEN: Soft, nontender, obese. EXTREMITIES: No edema. Left upper extremity AV fistula , changes of CVI Lower extremity superficial abrasions present, not infected. SKIN: No rash. 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 secondary to pneumonia. IV Abx - ID and Pulm following , Now on O2(Off Bipap) Coronary artery disease with previous coronary artery bypass grafting. Acute metabolic toxic encephalopathy, present upon admission. Status post pacemaker. Anemia- Aranesp as per protocol COMMENT/RELEVANT DATA Meds Current Medications Medications (Trade) Dose Ordered Sig/Tracy Start Time Stop Time Status Last Admin Dose Admin Acetaminophen (Tylenol) 650 mg PRN Q6HRS PRN 09/25/18 16:30 09/28/18 08:41 650 MG Albumin Human 200 ml @ 200 mls/hr 1X PRN PRN 09/26/18 06:45 09/26/18 12:54 DC Albuterol Sulfate (Ventolin Neb Soln) 2.5 mg PRN Q2HR PRN 09/25/18 16:30 Albuterol/ Ipratropium (Duoneb) 3 ml RTQID 09/25/18 20:00 09/28/18 07:10 3 ML Dextrose (Dextrose 50%-Water Syringe) 12.5 gm PRN Q15MIN PRN 09/25/18 16:30 Docusate Sodium (Colace) 100 mg PRN DAILY PRN 09/25/18 16:30 Famotidine (Pepcid Vial) 20 mg Q48H 09/25/18 21:00 09/27/18 22:12 20 MG Guaifenesin (Mucinex) 600 mg BID 09/25/18 21:00 09/27/18 22:12 600 MG Heparin Sodium (Porcine) (Heparin Sodium) 5,000 unit Q8HRS 09/25/18 22:00 09/28/18 06:26 5,000 UNIT Info (PHARMACY MONITORING -- do not chart) 1 each PRN DAILY PRN 09/26/18 06:45 Insulin Human Lispro (HumaLOG) 0-7 UNITS TIDWMEALS 09/25/18 17:00 09/27/18 18:07 4 UNITS Lactobacillus Rhamnosus (Culturelle) 1 cap BID 09/27/18 21:00 09/27/18 22:12 1 CAP Lidocaine HCl (Lidocaine 1% 20ml Vial) 20 ml STK-MED ONCE 09/25/18 10:41 09/25/18 10:42 DC Naloxone HCl (Narcan) 0.2 mg 1X ONCE 09/25/18 08:45 09/25/18 08:46 DC 09/25/18 08:47 0.2 MG Norepinephrine Bitartrate 250 ml @ 9.375 mls/ hr CONT PRN 09/25/18 14:45 09/27/18 16:31 DC 09/25/18 19:33 18.75 MLS/HR Ondansetron HCl (Zofran) 4 mg PRN Q6HRS PRN 09/25/18 16:30 Piperacillin Sod/ Tazobactam Sod (Zosyn Per Pharmacy) 1 each PRN DAILY PRN 09/25/18 09:30 Piperacillin Sod/ Tazobactam Sod 2.25 gm/Sodium Chloride 50 ml @ 100 mls/hr Q8HRS 09/25/18 16:00 09/28/18 06:25 100 MLS/HR Sodium Chloride 1,000 ml @ 400 mls/hr Q2H30M PRN 09/26/18 06:43 09/26/18 18:42 DC Sodium Chloride (Normal Saline Flush) 10 ml 1X PRN PRN 09/26/18 06:45 09/27/18 06:44 DC Vancomycin HCl (Vanco Per Pharmacy) 1 each PRN DAILY PRN 09/25/18 09:30 09/27/18 13:37 1 EACH Vancomycin HCl (Vancomycin Random Level) 1 each 1X ONCE 09/26/18 06:00 09/26/18 06:02 DC 09/26/18 05:35 1 EACH Vancomycin HCl 1.75 gm/Sodium Chloride 500 ml @ 250 mls/hr 1X ONCE 09/25/18 09:45 09/25/18 11:44 DC 09/25/18 10:25 250 MLS/HR Vancomycin HCl 500 mg/Sodium Chloride 100 ml @ 100 mls/hr TuThSa 09/26/18 16:00 09/26/18 16:45 100 MLS/HR Vasopressin 40 unit/Dextrose 102 ml @ 6 mls/hr CONT PRN 09/25/18 13:15 09/27/18 16:31 DC 09/26/18 04:12 6 MLS/HR Lab Laboratory Tests Test 09/27/18 11:37 09/27/18 17:20 09/28/18 06:10 09/28/18 07:50 Glucose (Fingerstick) 315 mg/dL (70-99) 291 mg/dL (70-99) 141 mg/dL (70-99) White Blood Count 3.8 x10^3/uL (4.0-11.0) Red Blood Count 2.67 x10^6/uL (4.30-5.70) Hemoglobin 9.9 g/dL (13.0-17.5) Hematocrit 29.2 % (39.0-53.0) Mean Corpuscular Volume 110 fL (79-100) Mean Corpuscular Hemoglobin 37 pg (25-35) Mean Corpuscular Hemoglobin Concent 34 g/dL (31-37) Red Cell Distribution Width 15.4 % (11.5-14.5) Platelet Count 56 x10^3/uL (140-400) Neutrophils (%) (Auto) 69 % (31-73) Lymphocytes (%) (Auto) 18 % (24-48) Monocytes (%) (Auto) 8 % (0-9) Eosinophils (%) (Auto) 3 % (0-3) Basophils (%) (Auto) 1 % (0-3) Neutrophils # (Auto) 2.6 x10^3uL (1.8-7.7) Lymphocytes # (Auto) 0.7 x10^3/uL (1.0-4.8) Monocytes # (Auto) 0.3 x10^3/uL (0.0-1.1) Eosinophils # (Auto) 0.1 x10^3/uL (0.0-0.7) Basophils # (Auto) 0.0 x10^3/uL (0.0-0.2) Sodium Level 139 mmol/L (136-145) Potassium Level 3.9 mmol/L (3.5-5.1) Chloride Level 99 mmol/L (98-107) Carbon Dioxide Level 25 mmol/L (21-32) Anion Gap 15 (6-14) Blood Urea Nitrogen 56 mg/dL (8-26) Creatinine 6.2 mg/dL (0.7-1.3) Estimated GFR (Cockcroft-Gault) 8.7 Glucose Level 153 mg/dL (70-99) Calcium Level 8.4 mg/dL (8.5-10.1) Results All relevant outside records, renal labs, imaging studies, telemetry/EKG's were reviewed. LAURA COPPOLA MD Sep 28, 2018 10:28
[2018-09-28] MEDS ORDERED: IV NORMAL SALINE 1000ML BAG 1,000 ML IV PRN ×2 (10:34)
[2018-09-28] MEDS ORDERED: DIALYSIS PATIENT. MC PRN ×2 (10:45)
[2018-09-28] MEDS ORDERED: ALBUMIN HUMAN 25% 200 ML IV ONE (12:15)
[2018-09-28] MEDS: VANCOMYCIN PER PHARMACY MC PRN (13:20)
[2018-09-28 15:00] VITALS: BP 101/41
[2018-09-28] MEDS: VANCOMYCIN 500 MG in IV NORMAL SALINE 100ML 100 ML IV SCH (16:13)
--- NOTE | 2018-09-28 16:44 | PDOC ---
Infectious Disease Note Subjective Subjective Feeling fine Comfortable, denies pain/chills/upset stomach/SOA ROS ROS per HPI otherwise neg Vital Sign Vital Signs Vital Signs Date Time Temp Pulse Resp B/P (MAP) Pulse Ox O2 Delivery O2 Flow Rate FiO2 09/28/18 15:55 100 Nasal Cannula 4.0 09/28/18 07:00 96.6 64 18 110/55 (73) 96.6 Physical Exam PHYSICAL EXAM GENERAL: Propped up in bed, resting HEENT: Normal conjunctivae. Dentures NECK: Supple. LUNGS: Decreased aeration. HEART: S1, S2 ABDOMEN: Obese, BS active, soft, nontender EXTREMITIES: No edema. Left upper extremity AV fistula site looks unremarkable. Lower extremity superficial abrasions present, not infected. SKIN: Warm, dry. No generalized rash. 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 PIV [facility] Labs Lab Laboratory Tests Test 09/27/18 17:20 09/28/18 06:10 09/28/18 07:50 Glucose (Fingerstick) 291 mg/dL (70-99) 141 mg/dL (70-99) White Blood Count 3.8 x10^3/uL (4.0-11.0) Red Blood Count 2.67 x10^6/uL (4.30-5.70) Hemoglobin 9.9 g/dL (13.0-17.5) Hematocrit 29.2 % (39.0-53.0) Mean Corpuscular Volume 110 fL (79-100) Mean Corpuscular Hemoglobin 37 pg (25-35) Mean Corpuscular Hemoglobin Concent 34 g/dL (31-37) Red Cell Distribution Width 15.4 % (11.5-14.5) Platelet Count 56 x10^3/uL (140-400) Neutrophils (%) (Auto) 69 % (31-73) Lymphocytes (%) (Auto) 18 % (24-48) Monocytes (%) (Auto) 8 % (0-9) Eosinophils (%) (Auto) 3 % (0-3) Basophils (%) (Auto) 1 % (0-3) Neutrophils # (Auto) 2.6 x10^3uL (1.8-7.7) Lymphocytes # (Auto) 0.7 x10^3/uL (1.0-4.8) Monocytes # (Auto) 0.3 x10^3/uL (0.0-1.1) Eosinophils # (Auto) 0.1 x10^3/uL (0.0-0.7) Basophils # (Auto) 0.0 x10^3/uL (0.0-0.2) Sodium Level 139 mmol/L (136-145) Potassium Level 3.9 mmol/L (3.5-5.1) Chloride Level 99 mmol/L (98-107) Carbon Dioxide Level 25 mmol/L (21-32) Anion Gap 15 (6-14) Blood Urea Nitrogen 56 mg/dL (8-26) Creatinine 6.2 mg/dL (0.7-1.3) Estimated GFR (Cockcroft-Gault) 8.7 Glucose Level 153 mg/dL (70-99) Calcium Level 8.4 mg/dL (8.5-10.1) Micro Microbiology 09/25/18 Blood Culture - Preliminary, Resulted NO GROWTH AFTER 3 DAYS Objective Assessment Pancytopenia Sepsis with hypotension requiring vasopressor support. now off Suspected pneumonia. Acute respiratory failure, now on O2,off bipap Coronary artery disease with coronary artery bypass grafting. Status post pacemaker. End-stage renal disease, on hemodialysis via AV fistula. Diabetes. History of multiple hospitalizations this year, requiring antibiotic support. History of [place] healthcare-associated pneumonia, 07/2018, treated. History of benign prostatic hypertrophy with urinary retention. Legally blind. History of mild dysphagia with aspiration of thin liquids per past video swallow study. Sulfa allergy. Plan Plan of Care Zosyn and IV vancomycin. f/u labs in morning monitor Pancytopenia BC neg so far Supportive care D/w Attending Co-Sign Attending Co-Sign The patient was seen and interviewed as well as examined at the bedside. The chart was reviewed. The case was discussed. Agree with the plan of care. YU LUO APRN Sep 28, 2018 16:44 JOSE FELIX MD Sep 28, 2018 17:16
[2018-09-28 19:21] VITALS: BP 123/69
[2018-09-28 23:33] VITALS: BP 113/55
[2018-09-29] MEDS: ACETAMINOPHEN 325 MG TABLET. PO PRN (00:25)
[2018-09-29] MEDS ORDERED: HALOPERIDOL 0.5 MG TABLET. PO ONE (02:45)
[2018-09-29 03:28] VITALS: BP 135/69
[2018-09-29] MEDS: oxyCODONE/APAP 5/325 1 TAB TABLET PO PRN ×2 (05:43→20:30)
[2018-09-29] MEDS: PIPERACILLIN/TAZOBACTAM 2.25 GM in IV NORMAL SALINE 50ML 50 ML IV SCH ×3 (05:44→20:29)
[2018-09-29] MEDS: HEPARIN for SUB-Q USE 5,000 UNIT/ML VIAL. SQ SCH ×3 (05:47→20:44)
[2018-09-29] MEDS: IPRATRPIUM/ALBUTEROL 0.5/2.5MG 3 ML NEBU. NEB SCH ×4 (06:55→20:20)
[2018-09-29 07:00] VITALS: BP 89/45
[2018-09-29] MEDS: INSULIN LISPRO 300 UNITS/3 ML INSULN.PEN. SQ SCH ×3 (08:00→17:44)
[2018-09-29] MEDS ORDERED: IV NORMAL SALINE 1000ML BAG 1,000 ML IV PRN (08:15)
[2018-09-29 09:31] LABS: BASO % 1 % (0-3); EOS % 1 % (0-3); HEMATOCRIT 29.7 % (39.0-53.0); HEMOGLOBIN 10.1 g/dL (13.0-17.5); LYMPH # 0.7 x10^3/uL (1.0-4.8); LYMPH % 21 % (24-48); MEAN CORPUSCULAR HEMOGLOBIN 37 pg (25-35); MEAN CORPUSCULAR HGB CONC 34 g/dL (31-37); MEAN CORPUSCULAR VOLUME 110 fL (79-100); MONO # 0.3 x10^3/uL (0.0-1.1); MONO % 10 % (0-9); NEUT # 2.1 x10^3uL (1.8-7.7); NEUT % 66 % (31-73); PLATELET COUNT 55 x10^3/uL (140-400); RED BLOOD COUNT 2.71 x10^6/uL (4.30-5.70); RED CELL DISTRIBUTION WIDTH 15.6 % (11.5-14.5); WHITE BLOOD COUNT 3.2 x10^3/uL (4.0-11.0)
[2018-09-29 09:46] VITALS: BP 98/56
[2018-09-29 09:49] LABS: CREATININE 5.1 mg/dL (0.7-1.3); GFR 10.9; POTASSIUM 4.1 mmol/L (3.5-5.1)
--- NOTE | 2018-09-29 10:05 | PDOC ---
Infectious Disease Note Subjective Subjective Comfortable, breathing fine, wants to go home today No fevers ROS ROS per HPI otherwise neg Vital Sign Vital Signs Vital Signs Date Time Temp Pulse Resp B/P (MAP) Pulse Ox O2 Delivery O2 Flow Rate FiO2 09/29/18 09:46 113 98/56 (70) 99 Nasal Cannula 4.0 09/29/18 07:00 97.8 20 97.8 Physical Exam PHYSICAL EXAM GENERAL: Sitting in the chair, alert, relaxed appearance HEENT: Normal conjunctivae. Dentures NECK: Supple. LUNGS: Decreased aeration, nonlabored HEART: S1, S2 ABDOMEN: Obese, BS active, soft, nontender EXTREMITIES: No edema. Left upper extremity AV fistula site looks unremarkable. Lower extremity superficial abrasions present, not infected. SKIN: Warm, dry. No generalized rash. 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, responds appropriately PIV [facility] Labs Lab Laboratory Tests Test 09/28/18 17:03 09/29/18 07:49 09/29/18 09:11 Glucose (Fingerstick) 233 mg/dL (70-99) 167 mg/dL (70-99) White Blood Count 3.2 x10^3/uL (4.0-11.0) Red Blood Count 2.71 x10^6/uL (4.30-5.70) Hemoglobin 10.1 g/dL (13.0-17.5) Hematocrit 29.7 % (39.0-53.0) Mean Corpuscular Volume 110 fL (79-100) Mean Corpuscular Hemoglobin 37 pg (25-35) Mean Corpuscular Hemoglobin Concent 34 g/dL (31-37) Red Cell Distribution Width 15.6 % (11.5-14.5) Platelet Count 55 x10^3/uL (140-400) Neutrophils (%) (Auto) 66 % (31-73) Lymphocytes (%) (Auto) 21 % (24-48) Monocytes (%) (Auto) 10 % (0-9) Eosinophils (%) (Auto) 1 % (0-3) Basophils (%) (Auto) 1 % (0-3) Neutrophils # (Auto) 2.1 x10^3uL (1.8-7.7) Lymphocytes # (Auto) 0.7 x10^3/uL (1.0-4.8) Monocytes # (Auto) 0.3 x10^3/uL (0.0-1.1) Eosinophils # (Auto) 0.0 x10^3/uL (0.0-0.7) Basophils # (Auto) 0.0 x10^3/uL (0.0-0.2) Sodium Level 138 mmol/L (136-145) Potassium Level 4.1 mmol/L (3.5-5.1) Chloride Level 97 mmol/L (98-107) Carbon Dioxide Level 28 mmol/L (21-32) Anion Gap 13 (6-14) Blood Urea Nitrogen 34 mg/dL (8-26) Creatinine 5.1 mg/dL (0.7-1.3) Estimated GFR (Cockcroft-Gault) 10.9 Glucose Level 199 mg/dL (70-99) Calcium Level 9.0 mg/dL (8.5-10.1) Micro Microbiology 09/25/18 Blood Culture - Preliminary, Resulted NO GROWTH AFTER 4 DAYS Objective Assessment Pancytopenia ? med vs malignancy - states Dr. Ruiz to due bone marrow Sepsis with hypotension requiring vasopressor support. now off Suspected pneumonia. Acute respiratory failure, now on O2,off bipap Coronary artery disease with coronary artery bypass grafting. Status post pacemaker. End-stage renal disease, on hemodialysis via AV fistula. Diabetes. History of multiple hospitalizations this year, requiring antibiotic support. History of [place] healthcare-associated pneumonia, 07/2018, treated. History of benign prostatic hypertrophy with urinary retention. Legally blind. History of mild dysphagia with aspiration of thin liquids per past video swallow study. Sulfa allergy. Plan Plan of Care Cont Zosyn and d/c vancomycin. (09/25) F/u CBC ? med causing count drop - states Dr. Ruiz to do a bone marrow as he has a h/o malignancy BC neg so far Supportive care Attending Co-Sign Attending Co-Sign The patient was seen and interviewed as well as examined at the bedside. The chart was reviewed. The case was discussed. Agree with the plan of care. YU LUO APRN Sep 29, 2018 10:05 JOSE FELIX MD Sep 29, 2018 15:09
--- NOTE | 2018-09-29 11:27 | PDOC ---
PULMONARY PROGRESS NOTES Subjective doing well on canula Vitals Vital Signs Date Time Temp Pulse Resp B/P (MAP) Pulse Ox O2 Delivery O2 Flow Rate FiO2 09/29/18 11:03 100 Nasal Cannula 4.0 09/29/18 09:46 113 98/56 (70) 09/29/18 07:00 97.8 20 97.8 General: Alert, No acute distress HEENT: Other Lungs: Clear Cardiovascular: S1 Abdomen: Soft Neuro Exam: Alert Extremities: Other (trace edema) Skin: Warm Labs Laboratory Tests Test 09/27/18 11:37 09/27/18 17:20 09/28/18 06:10 09/28/18 07:50 Glucose (Fingerstick) 315 mg/dL (70-99) 291 mg/dL (70-99) 141 mg/dL (70-99) White Blood Count 3.8 x10^3/uL (4.0-11.0) Red Blood Count 2.67 x10^6/uL (4.30-5.70) Hemoglobin 9.9 g/dL (13.0-17.5) Hematocrit 29.2 % (39.0-53.0) Mean Corpuscular Volume 110 fL (79-100) Mean Corpuscular Hemoglobin 37 pg (25-35) Mean Corpuscular Hemoglobin Concent 34 g/dL (31-37) Red Cell Distribution Width 15.4 % (11.5-14.5) Platelet Count 56 x10^3/uL (140-400) Neutrophils (%) (Auto) 69 % (31-73) Lymphocytes (%) (Auto) 18 % (24-48) Monocytes (%) (Auto) 8 % (0-9) Eosinophils (%) (Auto) 3 % (0-3) Basophils (%) (Auto) 1 % (0-3) Neutrophils # (Auto) 2.6 x10^3uL (1.8-7.7) Lymphocytes # (Auto) 0.7 x10^3/uL (1.0-4.8) Monocytes # (Auto) 0.3 x10^3/uL (0.0-1.1) Eosinophils # (Auto) 0.1 x10^3/uL (0.0-0.7) Basophils # (Auto) 0.0 x10^3/uL (0.0-0.2) Sodium Level 139 mmol/L (136-145) Potassium Level 3.9 mmol/L (3.5-5.1) Chloride Level 99 mmol/L (98-107) Carbon Dioxide Level 25 mmol/L (21-32) Anion Gap 15 (6-14) Blood Urea Nitrogen 56 mg/dL (8-26) Creatinine 6.2 mg/dL (0.7-1.3) Estimated GFR (Cockcroft-Gault) 8.7 Glucose Level 153 mg/dL (70-99) Calcium Level 8.4 mg/dL (8.5-10.1) Test 09/28/18 17:03 09/29/18 07:49 09/29/18 09:11 Glucose (Fingerstick) 233 mg/dL (70-99) 167 mg/dL (70-99) White Blood Count 3.2 x10^3/uL (4.0-11.0) Red Blood Count 2.71 x10^6/uL (4.30-5.70) Hemoglobin 10.1 g/dL (13.0-17.5) Hematocrit 29.7 % (39.0-53.0) Mean Corpuscular Volume 110 fL (79-100) Mean Corpuscular Hemoglobin 37 pg (25-35) Mean Corpuscular Hemoglobin Concent 34 g/dL (31-37) Red Cell Distribution Width 15.6 % (11.5-14.5) Platelet Count 55 x10^3/uL (140-400) Neutrophils (%) (Auto) 66 % (31-73) Lymphocytes (%) (Auto) 21 % (24-48) Monocytes (%) (Auto) 10 % (0-9) Eosinophils (%) (Auto) 1 % (0-3) Basophils (%) (Auto) 1 % (0-3) Neutrophils # (Auto) 2.1 x10^3uL (1.8-7.7) Lymphocytes # (Auto) 0.7 x10^3/uL (1.0-4.8) Monocytes # (Auto) 0.3 x10^3/uL (0.0-1.1) Eosinophils # (Auto) 0.0 x10^3/uL (0.0-0.7) Basophils # (Auto) 0.0 x10^3/uL (0.0-0.2) Sodium Level 138 mmol/L (136-145) Potassium Level 4.1 mmol/L (3.5-5.1) Chloride Level 97 mmol/L (98-107) Carbon Dioxide Level 28 mmol/L (21-32) Anion Gap 13 (6-14) Blood Urea Nitrogen 34 mg/dL (8-26) Creatinine 5.1 mg/dL (0.7-1.3) Estimated GFR (Cockcroft-Gault) 10.9 Glucose Level 199 mg/dL (70-99) Calcium Level 9.0 mg/dL (8.5-10.1) Laboratory Tests Test 09/28/18 17:03 09/29/18 07:49 09/29/18 09:11 Glucose (Fingerstick) 233 mg/dL (70-99) 167 mg/dL (70-99) White Blood Count 3.2 x10^3/uL (4.0-11.0) Red Blood Count 2.71 x10^6/uL (4.30-5.70) Hemoglobin 10.1 g/dL (13.0-17.5) Hematocrit 29.7 % (39.0-53.0) Mean Corpuscular Volume 110 fL (79-100) Mean Corpuscular Hemoglobin 37 pg (25-35) Mean Corpuscular Hemoglobin Concent 34 g/dL (31-37) Red Cell Distribution Width 15.6 % (11.5-14.5) Platelet Count 55 x10^3/uL (140-400) Neutrophils (%) (Auto) 66 % (31-73) Lymphocytes (%) (Auto) 21 % (24-48) Monocytes (%) (Auto) 10 % (0-9) Eosinophils (%) (Auto) 1 % (0-3) Basophils (%) (Auto) 1 % (0-3) Neutrophils # (Auto) 2.1 x10^3uL (1.8-7.7) Lymphocytes # (Auto) 0.7 x10^3/uL (1.0-4.8) Monocytes # (Auto) 0.3 x10^3/uL (0.0-1.1) Eosinophils # (Auto) 0.0 x10^3/uL (0.0-0.7) Basophils # (Auto) 0.0 x10^3/uL (0.0-0.2) Sodium Level 138 mmol/L (136-145) Potassium Level 4.1 mmol/L (3.5-5.1) Chloride Level 97 mmol/L (98-107) Carbon Dioxide Level 28 mmol/L (21-32) Anion Gap 13 (6-14) Blood Urea Nitrogen 34 mg/dL (8-26) Creatinine 5.1 mg/dL (0.7-1.3) Estimated GFR (Cockcroft-Gault) 10.9 Glucose Level 199 mg/dL (70-99) Calcium Level 9.0 mg/dL (8.5-10.1) Medications Active Scripts Medications Dose Route/Sig Max Daily Dose Days Date Category Humalog (Insulin Lispro) 100 Unit/1 Ml Insuln.pen 10 Units SQ TIDWMEALS 30 08/14/18 Rx Haloperidol 2 Mg Tablet 0.5 Tab PO Q12HR 08/14/18 Rx Lantus Solostar (Insulin Glargine,Hum.rec.anlog) 100 Unit/1 Ml Insuln.pen 24 Unit SQ QHS 30 08/14/18 Rx Alprazolam 0.5 Mg Tablet 1 Tab PO HS PRN 08/14/18 Rx Tamsulosin Hcl 0.4 Mg Cap.er.24h 0.8 Mg PO DAILY 08/11/18 Reported Spironolactone 25 Mg Tablet 1 Tab PO DAILY 08/11/18 Reported Senokot (Sennosides) 8.6 Mg Tablet 1 Tab PO BID 08/11/18 Reported Requip (Ropinirole Hcl) 1 Mg Tablet 1 Tab PO QHS 08/11/18 Reported Lyrica (Pregabalin) 75 Mg Capsule 1 Cap PO BID 08/11/18 Reported Super Enzyme Caps (Pancreat/Bet Hcl/Pep/Brom/Pap) 1 Each Capsule 4 Cap PO QID 08/11/18 Reported Magnesium Oxide 400 Mg Tablet 1 Tab PO DAILY 08/11/18 Reported Gemfibrozil 600 Mg Tablet 1 Tab PO BIDWMEALS 08/11/18 Reported Folic Acid 1 Mg Tablet 1 Tab PO DAILY 08/11/18 Reported Fish Oil 1,000 Mg Capsule ([place]-3 Fatty Acids/Fish Oil) 1 Each Capsule 2,000 Each PO BID 08/11/18 Reported Cyclobenzaprine Hcl 10 Mg Tablet 1 Tab PO BID 08/11/18 Reported Irina Elias 6,000 Units Capsule (Lipase/Protease/Amylase) 1 Each Capsule. 1 Each PO QID 08/11/18 Reported Vitamin D3 (Cholecalciferol (Vitamin D3)) 1,000 Unit Tablet 3 Tab PO DAILY 08/11/18 Reported Aspirin Ec (Aspirin) 81 Mg Tablet. 1 Tab PO DAILY 08/11/18 Reported Acetaminophen 500 Mg Tablet 1,000 Mg PO PRN DAILY PRN 08/11/18 Reported Midodrine Hcl 5 Mg Tablet 5 Mg PO 3X/WEEK 06/06/18 Reported Hydroxyzine Hcl 25 Mg Tablet 25 Mg PO QID 06/06/18 Reported Calcium Acetate 667 Mg Tablet 2 Cap PO BIDAC 06/06/18 Reported Prevalite Packet (Cholestyramine/Aspartame) 4 Gm Powd.pack 4 Gm PO BID 06/06/18 Reported Toprol Xl (Metoprolol Succinate) 25 Mg Tab.er.24h 1 Tab PO DAILY 06/06/18 Reported Furosemide 40 Mg Tablet 2 Tab PO DAILY 06/06/18 Reported Diltiazem 24HR Cd (Diltiazem Hcl) 120 Mg Cap.er.24h 1 Cap PO DAILY 06/06/18 Reported Percocet 5-325 Mg Tablet (Oxycodone/Acetaminophen) 1 Each Tablet 1 Tab PO QID 06/06/17 Reported Humalog (Insulin Lispro) 100 Unit/1 Ml Cartridge 8 Unit SQ TIDAC 06/06/17 Reported Prilosec Otc (Omeprazole Magnesium) 20 Mg Tablet. 20 Mg PO DAILY 11/20/14 Reported Impression . 1. Acute respiratory failure. 2. Sepsis/ septic shock. secondary to pneumonia. resolved 3. Coronary artery disease with previous coronary artery bypass grafting. 4. Acute metabolic toxic encephalopathy, present upon admission. 5. Protein malnutrition present upon admission. 6. Status post pacemaker. 7. Peripheral vascular disease. 8. Abnormal cxr with LLL infiltrate/ effusion Plan . 1. Doing well . nasal canula 2. antibiotics per ID 3. oral nutrition 4. Follow clinical course and make further recommendations. 5. f/u cxr as needed 6. HD 7. ok with dc to skill DNR/DNI d/w MAZIN Harrell MD Sep 29, 2018 11:27
--- NOTE | 2018-09-29 11:33 | PDOC ---
PROGRESS NOTES Chief Complaint Chief Complaint Acute respiratory failure Sepsis/ septic shock, secondary to pneumonia Coronary artery disease with previous coronary artery bypass grafting Acute metabolic toxic encephalopathy, present upon admission Protein malnutrition present upon admission Status post pacemaker Peripheral vascular disease Abnormal cxr with LLL infiltrate/ effusion Hyperkalemia, resolved PANCYTOPENIA TO SNF WHEN OK WITH ID/HEME RETIC, HAPTOGLOBIN FE/TIBC History of Present Illness History of Present Illness Pt seen and examined Sitting in chair, calm, cooperative, oxygen via nasal cannula Discussed with RN at bedside Vitals Vitals Vital Signs Date Time Temp Pulse Resp B/P (MAP) Pulse Ox O2 Delivery O2 Flow Rate FiO2 09/29/18 11:03 100 Nasal Cannula 4.0 09/29/18 09:46 113 98/56 (70) 09/29/18 07:00 97.8 20 97.8 Physical Exam Physical Exam GENERAL: Sitting in the chair, alert, relaxed appearance HEENT: Normal conjunctivae. Dentures NECK: Supple. LUNGS: Decreased aeration, nonlabored HEART: S1, S2 ABDOMEN: Obese, BS active, soft, nontender EXTREMITIES: No edema. Left upper extremity AV fistula site looks unremarkable. Lower extremity superficial abrasions present, not infected. SKIN: Warm, dry. No generalized rash. 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 PIV [facility] General: Alert, Cooperative, No acute distress Heart: Regular rate, Normal S1, Normal S2 Lungs: Clear Abdomen: Soft, No masses Extremities: No clubbing, No cyanosis Skin: No rashes, No breakdown Labs LABS Laboratory Tests Test 09/28/18 17:03 09/29/18 07:49 09/29/18 09:11 Glucose (Fingerstick) 233 mg/dL (70-99) 167 mg/dL (70-99) White Blood Count 3.2 x10^3/uL (4.0-11.0) Red Blood Count 2.71 x10^6/uL (4.30-5.70) Hemoglobin 10.1 g/dL (13.0-17.5) Hematocrit 29.7 % (39.0-53.0) Mean Corpuscular Volume 110 fL (79-100) Mean Corpuscular Hemoglobin 37 pg (25-35) Mean Corpuscular Hemoglobin Concent 34 g/dL (31-37) Red Cell Distribution Width 15.6 % (11.5-14.5) Platelet Count 55 x10^3/uL (140-400) Neutrophils (%) (Auto) 66 % (31-73) Lymphocytes (%) (Auto) 21 % (24-48) Monocytes (%) (Auto) 10 % (0-9) Eosinophils (%) (Auto) 1 % (0-3) Basophils (%) (Auto) 1 % (0-3) Neutrophils # (Auto) 2.1 x10^3uL (1.8-7.7) Lymphocytes # (Auto) 0.7 x10^3/uL (1.0-4.8) Monocytes # (Auto) 0.3 x10^3/uL (0.0-1.1) Eosinophils # (Auto) 0.0 x10^3/uL (0.0-0.7) Basophils # (Auto) 0.0 x10^3/uL (0.0-0.2) Sodium Level 138 mmol/L (136-145) Potassium Level 4.1 mmol/L (3.5-5.1) Chloride Level 97 mmol/L (98-107) Carbon Dioxide Level 28 mmol/L (21-32) Anion Gap 13 (6-14) Blood Urea Nitrogen 34 mg/dL (8-26) Creatinine 5.1 mg/dL (0.7-1.3) Estimated GFR (Cockcroft-Gault) 10.9 Glucose Level 199 mg/dL (70-99) Calcium Level 9.0 mg/dL (8.5-10.1) Assessment and Plan Assessmemt and Plan Problems Medical Problems: (1) Pneumonia Status: Acute Comment Review of Relevant I have reviewed the following items sarah (where applicable) has been applied. Labs Laboratory Tests Test 09/27/18 11:37 09/27/18 17:20 09/28/18 06:10 09/28/18 07:50 Glucose (Fingerstick) 315 mg/dL (70-99) 291 mg/dL (70-99) 141 mg/dL (70-99) White Blood Count 3.8 x10^3/uL (4.0-11.0) Red Blood Count 2.67 x10^6/uL (4.30-5.70) Hemoglobin 9.9 g/dL (13.0-17.5) Hematocrit 29.2 % (39.0-53.0) Mean Corpuscular Volume 110 fL (79-100) Mean Corpuscular Hemoglobin 37 pg (25-35) Mean Corpuscular Hemoglobin Concent 34 g/dL (31-37) Red Cell Distribution Width 15.4 % (11.5-14.5) Platelet Count 56 x10^3/uL (140-400) Neutrophils (%) (Auto) 69 % (31-73) Lymphocytes (%) (Auto) 18 % (24-48) Monocytes (%) (Auto) 8 % (0-9) Eosinophils (%) (Auto) 3 % (0-3) Basophils (%) (Auto) 1 % (0-3) Neutrophils # (Auto) 2.6 x10^3uL (1.8-7.7) Lymphocytes # (Auto) 0.7 x10^3/uL (1.0-4.8) Monocytes # (Auto) 0.3 x10^3/uL (0.0-1.1) Eosinophils # (Auto) 0.1 x10^3/uL (0.0-0.7) Basophils # (Auto) 0.0 x10^3/uL (0.0-0.2) Sodium Level 139 mmol/L (136-145) Potassium Level 3.9 mmol/L (3.5-5.1) Chloride Level 99 mmol/L (98-107) Carbon Dioxide Level 25 mmol/L (21-32) Anion Gap 15 (6-14) Blood Urea Nitrogen 56 mg/dL (8-26) Creatinine 6.2 mg/dL (0.7-1.3) Estimated GFR (Cockcroft-Gault) 8.7 Glucose Level 153 mg/dL (70-99) Calcium Level 8.4 mg/dL (8.5-10.1) Test 09/28/18 17:03 09/29/18 07:49 09/29/18 09:11 Glucose (Fingerstick) 233 mg/dL (70-99) 167 mg/dL (70-99) White Blood Count 3.2 x10^3/uL (4.0-11.0) Red Blood Count 2.71 x10^6/uL (4.30-5.70) Hemoglobin 10.1 g/dL (13.0-17.5) Hematocrit 29.7 % (39.0-53.0) Mean Corpuscular Volume 110 fL (79-100) Mean Corpuscular Hemoglobin 37 pg (25-35) Mean Corpuscular Hemoglobin Concent 34 g/dL (31-37) Red Cell Distribution Width 15.6 % (11.5-14.5) Platelet Count 55 x10^3/uL (140-400) Neutrophils (%) (Auto) 66 % (31-73) Lymphocytes (%) (Auto) 21 % (24-48) Monocytes (%) (Auto) 10 % (0-9) Eosinophils (%) (Auto) 1 % (0-3) Basophils (%) (Auto) 1 % (0-3) Neutrophils # (Auto) 2.1 x10^3uL (1.8-7.7) Lymphocytes # (Auto) 0.7 x10^3/uL (1.0-4.8) Monocytes # (Auto) 0.3 x10^3/uL (0.0-1.1) Eosinophils # (Auto) 0.0 x10^3/uL (0.0-0.7) Basophils # (Auto) 0.0 x10^3/uL (0.0-0.2) Sodium Level 138 mmol/L (136-145) Potassium Level 4.1 mmol/L (3.5-5.1) Chloride Level 97 mmol/L (98-107) Carbon Dioxide Level 28 mmol/L (21-32) Anion Gap 13 (6-14) Blood Urea Nitrogen 34 mg/dL (8-26) Creatinine 5.1 mg/dL (0.7-1.3) Estimated GFR (Cockcroft-Gault) 10.9 Glucose Level 199 mg/dL (70-99) Calcium Level 9.0 mg/dL (8.5-10.1) Laboratory Tests Test 09/28/18 17:03 09/29/18 07:49 09/29/18 09:11 Glucose (Fingerstick) 233 mg/dL (70-99) 167 mg/dL (70-99) White Blood Count 3.2 x10^3/uL (4.0-11.0) Red Blood Count 2.71 x10^6/uL (4.30-5.70) Hemoglobin 10.1 g/dL (13.0-17.5) Hematocrit 29.7 % (39.0-53.0) Mean Corpuscular Volume 110 fL (79-100) Mean Corpuscular Hemoglobin 37 pg (25-35) Mean Corpuscular Hemoglobin Concent 34 g/dL (31-37) Red Cell Distribution Width 15.6 % (11.5-14.5) Platelet Count 55 x10^3/uL (140-400) Neutrophils (%) (Auto) 66 % (31-73) Lymphocytes (%) (Auto) 21 % (24-48) Monocytes (%) (Auto) 10 % (0-9) Eosinophils (%) (Auto) 1 % (0-3) Basophils (%) (Auto) 1 % (0-3) Neutrophils # (Auto) 2.1 x10^3uL (1.8-7.7) Lymphocytes # (Auto) 0.7 x10^3/uL (1.0-4.8) Monocytes # (Auto) 0.3 x10^3/uL (0.0-1.1) Eosinophils # (Auto) 0.0 x10^3/uL (0.0-0.7) Basophils # (Auto) 0.0 x10^3/uL (0.0-0.2) Sodium Level 138 mmol/L (136-145) Potassium Level 4.1 mmol/L (3.5-5.1) Chloride Level 97 mmol/L (98-107) Carbon Dioxide Level 28 mmol/L (21-32) Anion Gap 13 (6-14) Blood Urea Nitrogen 34 mg/dL (8-26) Creatinine 5.1 mg/dL (0.7-1.3) Estimated GFR (Cockcroft-Gault) 10.9 Glucose Level 199 mg/dL (70-99) Calcium Level 9.0 mg/dL (8.5-10.1) Microbiology 09/25/18 Blood Culture - Preliminary, Resulted NO GROWTH AFTER 4 DAYS Medications Current Medications Naloxone HCl (Narcan) 0.2 mg 1X ONCE IV Last administered on 09/25/18at 08:47 ; Start 09/25/18 at 08:45; Stop 09/25/18 at 08:46; Status DC Sodium Chloride 500 ml @ 500 mls/hr 1X ONCE IV Last administered on at 08:49; Start 09/25/18 at 08:45; Stop 09/25/18 at 09:44; Status DC Vancomycin HCl (Vanco Per Pharmacy) 1 each PRN DAILY PRN MC SEE COMMENTS Last administered on 09/28/18at 13:20; Start 09/25/18 at 09:30 Piperacillin Sod/ Tazobactam Sod (Zosyn Per Pharmacy) 1 each PRN DAILY PRN MC SEE COMMENTS; Start 09/25/18 at 09:30 Piperacillin Sod/ Tazobactam Sod 2.25 gm/Sodium Chloride 50 ml @ 100 mls/hr 1X ONCE IV Last administered on 09/25/18at 09:48; Start 09/25/18 at 09:30; Stop 09/25/18 at 09:59; Status DC Vancomycin HCl 1.75 gm/Sodium Chloride 500 ml @ 250 mls/hr 1X ONCE IV Last administered on 09/25/18at 10:25; Start 09/25/18 at 09:45; Stop 09/25/18 at 11 :44; Status DC Sodium Chloride 500 ml @ 500 mls/hr 1X ONCE IV Last administered on at 09:48; Start 09/25/18 at 09:45; Stop 09/25/18 at 10:44; Status DC Sodium Chloride 500 ml @ 500 mls/hr 1X ONCE IV Last administered on at 11:16; Start 09/25/18 at 10:30; Stop 09/25/18 at 11:29; Status DC Norepinephrine Bitartrate 250 ml @ 0 mls/hr 1X ONCE IV Last administered on at 11:13; Start 09/25/18 at 10:30; Stop 09/25/18 at 14:39; Status DC Lidocaine HCl (Lidocaine 1% 20ml Vial) 20 ml STK-MED ONCE .ROUTE ; Start at 10:41; Stop 09/25/18 at 10:42; Status DC Vasopressin 40 unit/Dextrose 102 ml @ 6 mls/hr CONT PRN IV SEE I/O RECORD Last administered on 09/26/18at 04:12; Start 09/25/18 at 13:15; Stop 09/27/18 at 16 :31; Status DC Norepinephrine Bitartrate 250 ml @ 9.375 mls/ hr CONT PRN IV SEE I/O RECORD Last administered on 09/25/18at 19:33; Start 09/25/18 at 14:45; Stop 09/27/18 at 16:31; Status DC Piperacillin Sod/ Tazobactam Sod 2.25 gm/Sodium Chloride 50 ml @ 100 mls/hr Q8HRS IV Last administered on 09/29/18at 05:44; Start 09/25/18 at 16:00 Vancomycin HCl (Vancomycin Random Level) 1 each 1X ONCE MC Last administered on 09/26/18at 05:35; Start 09/26/18 at 06:00; Stop 09/26/18 at 06:02; Status DC Acetaminophen (Tylenol) 650 mg PRN Q6HRS PRN PO FEVER Last administered on 09/29at 00:25; Start 09/25/18 at 16:30 Ondansetron HCl (Zofran) 4 mg PRN Q6HRS PRN IV NAUSEA/VOMITING; Start at 16:30 Docusate Sodium (Colace) 100 mg PRN DAILY PRN PO CONSTIPATION; Start 09/25/18 at 16:30 Sodium Chloride 1,000 ml @ 75 mls/hr [id number] IV Last administered on at 05:51; Start 09/25/18 at 16:30; Stop 09/26/18 at 18:58; Status DC Famotidine (Pepcid Vial) 20 mg Q48H IVP Last administered on 09/27/18at 22:12; Start 09/25/18 at 21:00 Heparin Sodium (Porcine) (Heparin Sodium) 5,000 unit Q8HRS SQ Last administered on 09/28/18at 21:46; Start 09/25/18 at 22:00 Insulin Human Lispro (HumaLOG) 0-7 UNITS TIDWMEALS SQ Last administered on 09/28at 18:14; Start 09/25/18 at 17:00 Dextrose (Dextrose 50%-Water Syringe) 12.5 gm PRN Q15MIN PRN IV SEE COMMENTS; Start 09/25/18 at 16:30 Albuterol/ Ipratropium (Duoneb) 3 ml RTQID NEB Last administered on 09/29/18at 11:03; Start 09/25/18 at 20:00 Albuterol Sulfate (Ventolin Neb Soln) 2.5 mg PRN Q2HR PRN NEB SHORTNESS OF BREATH; Start 09/25/18 at 16:30 Guaifenesin (Mucinex) 600 mg BID PO Last administered on 09/29/18at 08:29; Start 09/25/18 at 21:00 Sodium Chloride 1,000 ml @ 1,000 mls/hr Q1H PRN IV hypotension; Start at 06:43; Stop 09/26/18 at 12:42; Status DC Albumin Human 200 ml @ 200 mls/hr 1X PRN PRN IV Hypotension; Start 09/26/18 at 06:45; Stop 09/26/18 at 12:54; Status DC Sodium Chloride (Normal Saline Flush) 10 ml 1X PRN PRN IV AP 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; Start 09/26/18 at 06:45; Stop 09/27/18 at 06:44; Status DC Sodium Chloride (Normal Saline Flush) 10 ml 1X PRN PRN IV WELDER REPAIR 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; Start 09/26/18 at 06:45; Stop 09/27/18 at 06:44; Status DC Sodium Chloride 1,000 ml @ 400 mls/hr Q2H30M PRN IV PATENCY; Start 09/26/18 at 06:43; Stop 09/26/18 at 18:42; Status DC Info (PHARMACY MONITORING -- do not chart) 1 each PRN DAILY PRN MC SEE COMMENTS ; Start 09/26/18 at 06:45; Status UNV Info (PHARMACY MONITORING -- do not chart) 1 each PRN DAILY PRN MC SEE COMMENTS ; Start 09/26/18 at 06:45 Vancomycin HCl 500 mg/Sodium Chloride 100 ml @ 100 mls/hr TuThSa IV Last administered on 09/28/18at 16:13; Start 09/26/18 at 16:00 Lactobacillus Rhamnosus (Culturelle) 1 cap BID PO Last administered on at 21:44; Start 09/27/18 at 21:00 Sodium Chloride 1,000 ml @ 1,000 mls/hr Q1H PRN IV hypotension; Start 09/28/18 at 10:34; Stop 09/28/18 at 16:33; Status DC Sodium Chloride 1,000 ml @ 400 mls/hr Q2H30M PRN IV PATENCY; Start 09/28/18 at 10:34; Stop 09/28/18 at 22:33; Status DC Info (PHARMACY MONITORING -- do not chart) 1 each PRN DAILY PRN MC SEE COMMENTS ; Start 09/28/18 at 10:45; Status UNV Info (PHARMACY MONITORING -- do not chart) 1 each PRN DAILY PRN MC SEE COMMENTS ; Start 09/28/18 at 10:45 Albumin Human 200 ml @ 200 mls/hr 1X ONCE IV Last administered on 09/28/18at 12:26; Start 09/28/18 at 12:15; Stop 09/28/18 at 13:14; Status DC Haloperidol (Haldol) 0.5 mg 1X ONCE PO Last administered on 09/29/18at 02:51; Start 09/29/18 at 02:45; Stop 09/29/18 at 02:46; Status DC Alprazolam (Xanax) 0.25 mg PRN QHS PRN PO ANXIETY / AGITATION; Start 09/29/18 at 02:45 Oxycodone/ Acetaminophen (Percocet 5/325) 1 tab PRN Q6HRS PRN PO PAIN Last administered on 09/29/18at 05:43; Start 09/29/18 at 02:45 Sodium Chloride 1,000 ml @ 1,000 mls/hr Q1HR PRN IV hypotension Last administered on 09/29/18at 08:35; Start 09/29/18 at 08:15 Active Scripts Active Humalog (Insulin Lispro) 100 Unit/1 Ml Insuln.pen 10 Units SQ TIDWMEALS 30 Days Haloperidol 2 Mg Tablet 0.5 Tab PO Q12HR Lantus Solostar (Insulin Glargine,Hum.rec.anlog) 100 Unit/1 Ml Insuln.pen 24 Unit SQ QHS 30 Days Alprazolam 0.5 Mg Tablet 1 Tab PO HS PRN Reported Tamsulosin Hcl 0.4 Mg Cap.er.24h 0.8 Mg PO DAILY Spironolactone 25 Mg Tablet 1 Tab PO DAILY Senokot (Sennosides) 8.6 Mg Tablet 1 Tab PO BID Requip (Ropinirole Hcl) 1 Mg Tablet 1 Tab PO QHS Lyrica (Pregabalin) 75 Mg Capsule 1 Cap PO BID Super Enzyme Caps (Pancreat/Bet Hcl/Pep/Brom/Pap) 1 Each Capsule 4 Cap PO QID Magnesium Oxide 400 Mg Tablet 1 Tab PO DAILY Gemfibrozil 600 Mg Tablet 1 Tab PO BIDWMEALS Folic Acid 1 Mg Tablet 1 Tab PO DAILY Fish Oil 1,000 Mg Capsule ([place]-3 Fatty Acids/Fish Oil) 1 Each Capsule 2,000 Each PO BID Cyclobenzaprine Hcl 10 Mg Tablet 1 Tab PO BID Irina Elias 6,000 Units Capsule (Lipase/Protease/Amylase) 1 Each Capsule.dr 1 Each PO QID Vitamin D3 (Cholecalciferol (Vitamin D3)) 1,000 Unit Tablet 3 Tab PO DAILY Aspirin Ec (Aspirin) 81 Mg Tablet.dr 1 Tab PO DAILY Acetaminophen 500 Mg Tablet 1,000 Mg PO PRN DAILY PRN Midodrine Hcl 5 Mg Tablet 5 Mg PO 3X/WEEK Hydroxyzine Hcl 25 Mg Tablet 25 Mg PO QID Calcium Acetate 667 Mg Tablet 2 Cap PO BIDAC Prevalite Packet (Cholestyramine/Aspartame) 4 Gm Powd.pack 4 Gm PO BID Toprol Xl (Metoprolol Succinate) 25 Mg Tab.er.24h 1 Tab PO DAILY Furosemide 40 Mg Tablet 2 Tab PO DAILY Diltiazem 24HR Cd (Diltiazem Hcl) 120 Mg Cap.er.24h 1 Cap PO DAILY Percocet 5-325 Mg Tablet (Oxycodone/Acetaminophen) 1 Each Tablet 1 Tab PO QID Humalog (Insulin Lispro) 100 Unit/1 Ml Cartridge 8 Unit SQ TIDAC Prilosec Otc (Omeprazole Magnesium) 20 Mg Tablet. 20 Mg PO DAILY Vitals/I & O Vital Sign - Last 24 Hours 09/28/18 09/28/18 09/28/18 09/28/18 15:00 15:55 19:21 20:00 Temp 95.9 97.5 95.9 97.5 Pulse 94 117 Resp 18 B/P (MAP) 101/41 (61) 123/69 (87) Pulse Ox 100 100 O2 Delivery Room Air Nasal Cannula Nasal Cannula O2 Flow Rate 4.0 4.0 4.0 09/28/18 09/28/18 09/28/18 09/29/18 20:05 21:03 23:33 03:28 Temp 97.5 98.6 97.5 98.6 Pulse 117 115 115 Resp 18 20 18 B/P (MAP) 113/55 (74) 135/69 (91) Pulse Ox 98 100 100 100 O2 Delivery Nasal Cannula Nasal Cannula Nasal Cannula Nasal Cannula O2 Flow Rate 4.0 4.0 4.0 4.0 09/29/18 09/29/18 09/29/18 09/29/18 05:43 06:57 07:00 08:00 Temp 97.8 97.8 Pulse 113 Resp 20 20 B/P (MAP) 89/45 (60) Pulse Ox 100 95 100 O2 Delivery Nasal Cannula Nasal Cannula Nasal Cannula Nasal Cannula O2 Flow Rate 2.0 5.0 4.0 4.0 09/29/18 09/29/18 09/29/18 09:46 09:56 11:03 Pulse 113 B/P (MAP) 98/56 (70) Pulse Ox 99 100 O2 Delivery Nasal Cannula Nasal Cannula Nasal Cannula O2 Flow Rate 4.0 4.0 4.0 Intake and Output 09/28/18 09/28/18 09/29/18 15:00 23:00 07:00 Intake Total 150 ml Balance 150 ml JENNIFER EPPERSON MD Sep 29, 2018 11:33
[2018-09-29] MEDS: LACTOBACILLUS RHAMNOSUS GG 1 CAPSULE. PO SCH ×2 (12:12→20:29)
--- NOTE | 2018-09-29 13:07 | PDOC ---
Renal-Progress Notes Subjective Notes Notes NO NEW COMPLAINTS History of Present Illness Hx of present illness STABLE Vitals Vitals Vital Signs Date Time Temp Pulse Resp B/P (MAP) Pulse Ox O2 Delivery O2 Flow Rate FiO2 09/29/18 11:03 100 Nasal Cannula 4.0 09/29/18 09:46 113 98/56 (70) 09/29/18 07:00 97.8 20 97.8 Weight Weight [ ] I.O. Intake and Output Intake and Output 09/29/18 07:00 Intake Total 150 ml Balance 150 ml Intake Oral 150 ml # Voids 1 Labs Labs Laboratory Tests Test 09/28/18 17:03 09/29/18 07:49 09/29/18 09:11 09/29/18 11:41 Glucose (Fingerstick) 233 mg/dL (70-99) 167 mg/dL (70-99) 232 mg/dL (70-99) White Blood Count 3.2 x10^3/uL (4.0-11.0) Red Blood Count 2.71 x10^6/uL (4.30-5.70) Hemoglobin 10.1 g/dL (13.0-17.5) Hematocrit 29.7 % (39.0-53.0) Mean Corpuscular Volume 110 fL (79-100) Mean Corpuscular Hemoglobin 37 pg (25-35) Mean Corpuscular Hemoglobin Concent 34 g/dL (31-37) Red Cell Distribution Width 15.6 % (11.5-14.5) Platelet Count 55 x10^3/uL (140-400) Neutrophils (%) (Auto) 66 % (31-73) Lymphocytes (%) (Auto) 21 % (24-48) Monocytes (%) (Auto) 10 % (0-9) Eosinophils (%) (Auto) 1 % (0-3) Basophils (%) (Auto) 1 % (0-3) Neutrophils # (Auto) 2.1 x10^3uL (1.8-7.7) Lymphocytes # (Auto) 0.7 x10^3/uL (1.0-4.8) Monocytes # (Auto) 0.3 x10^3/uL (0.0-1.1) Eosinophils # (Auto) 0.0 x10^3/uL (0.0-0.7) Basophils # (Auto) 0.0 x10^3/uL (0.0-0.2) Reticulocyte Count (auto) 0.8 % (0.5-2.5) Sodium Level 138 mmol/L (136-145) Potassium Level 4.1 mmol/L (3.5-5.1) Chloride Level 97 mmol/L (98-107) Carbon Dioxide Level 28 mmol/L (21-32) Anion Gap 13 (6-14) Blood Urea Nitrogen 34 mg/dL (8-26) Creatinine 5.1 mg/dL (0.7-1.3) Estimated GFR (Cockcroft-Gault) 10.9 Glucose Level 199 mg/dL (70-99) Calcium Level 9.0 mg/dL (8.5-10.1) Micro Micro Microbiology 09/25/18 Blood Culture - Preliminary, Resulted NO GROWTH AFTER 4 DAYS Review of Systems Constitutional: yes: weakness, alert Ears/Nose/Throat: Yes: no symptom reported Eyes: Yes: no symptom reported Pulmonary: Yes no symptom reported Cardiovascular: Yes no symptom reported Gastrointestional: Yes: no symptom reported Genitourinary: Yes: no symptom reported Musculoskeletal: Yes: no symptom reported Skin: Yes no symptom reported Psychiatric/Neurological: Yes: no symptom reported Physical Exam General Appearance: no apparent distress Skin: warm Respiratory: decreased breath sounds Heart: S1S2 Abdomen: soft, bowel sounds present Genitourinary: bladder flat Extremities: pulses present Neurology: alert Musculoskeletal: Osteoarthritis Assessment Assessment IMP ESRD DM II HTN ANEMIA SEPSIS ? LLL PNA PLAN ANTIBIOTICS HD TOMORROW ARACELI CANSECO MD Sep 29, 2018 13:07
[2018-09-29 15:00] VITALS: BP 114/57
[2018-09-29 19:16] VITALS: BP 113/54
[2018-09-29] MEDS: ALPRAZolam 0.25 MG TABLET PO PRN (20:29)
[2018-09-29] MEDS: FAMOTIDINE 20 MG/2 ML VIAL IVP SCH (20:30)
[2018-09-29 22:18] VITALS: BP 152/84
--- NOTE | 2018-09-30 00:12 | CONS ---
DATE OF CONSULTATION: 09/29/2018 REQUESTING PHYSICIAN: Dr. Damir Colon. REASON FOR CONSULTATION: Pancytopenia. HISTORY OF PRESENT ILLNESS: The patient is an 82-year-old gentleman who was admitted to [facility] on 09/25/2018 with worsening cough. He was brought into Emergency Room and was found to have hypotension and was given IV fluid bolus and then Levophed. He was started on antibiotics for suspected pneumonia. Chest x-ray revealed left-sided pleural effusion with infiltrates. He was discharged with a diagnosis of Serratia, hospital-acquired pneumonia prior to this admission. He also has end-stage renal disease and is on hemodialysis. Infectious Diseases was consulted during this admission and he was diagnosed with sepsis and pneumonia and he was started on antibiotics. The patient has history of chronic pancytopenia. However, his WBC was normal at the time of admission on 09/25/2018 and it dropped to 3.0 on 09/29/2018. In addition, his hemoglobin is 10.1 and a platelet count of 55 on 09/29/2018. Reticulocyte count was normal at 0.8. Review of the old records indicates that he has had chronic pancytopenia. His platelet count was 132,000 on 11/28/2014. It was 81,000 on 01/02/2017. Improved to 165 on 06/07/2017 and dropped again after that. He has had various admissions for infections which I suspect may be contributing to the drop in platelet count and fluctuation at times. His platelet count was normal at 114 on 09/05/2018 and it dropped to 81,000 on 09/25/2018. His MCV has been elevated at 110. B12 and folic acid levels were checked. B12 was normal in 07/2018 and folic acid was also normal in 2016. His TSH was also normal on 08/14/2018. PAST MEDICAL HISTORY: End-stage renal disease on hemodialysis, coronary artery disease, atrial fibrillation, CVA, Parkinson's disease, cardiomyopathy, hyperlipidemia, hypertension, sleep apnea, prostate cancer, urinary retention, back pain, diabetes, anemia, skin cancer, dementia, legally blind. The patient's reports that the patient had a bone marrow cancer in 2000 and he was treated in [place], [place] and he went into remission in 2002. SOCIAL HISTORY: He is , no smoking or alcohol abuse. FAMILY HISTORY: Positive for heart disease. REVIEW OF SYSTEMS: A 12-point review of system was performed. Pertinent positives are mentioned in the history of present illness. Rest of the system review is negative. PHYSICAL EXAMINATION: GENERAL APPEARANCE: The patient is an 82-year-old gentleman who is in no acute cardiorespiratory distress. VITAL SIGNS: Blood pressure 98/56, temperature 97.8. HEENT: Head is atraumatic, normocephalic. Eyes: No icterus. NECK: Supple. CHEST: Bilaterally symmetrical. HEART: S1, S2 normal. ABDOMEN: Soft, nontender. CENTRAL NERVOUS SYSTEM: No focal deficits. LYMPHATICS: No lymphadenopathy. SKIN: No rashes. PSYCHOLOGIC: Mood and affect are appropriate. LABORATORY DATA: On 09/29/2018: WBC 3.2, hemoglobin 10.1, platelet count 55, retic count 0.8. Creatinine 5.1. B12 normal at 527 on 08/14/2018. IMPRESSION AND PLAN: 1. Macrocytic anemia. 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 He does not recall any further details. His B12 and TSH were normal in 07/2018. I will proceed with a bone marrow aspiration and biopsy to evaluate for myelodysplastic syndrome. The fluctuation seen in his platelet count is likely due to infections which would worsen his platelet counts and it gets better once the infection resolves. However, that would not explain the elevated MCV. Further workup with a bone marrow biopsy would be helpful to evaluate for myelodysplastic syndrome. I gave the option and discussed in detail with the patient and his and he prefers to proceed with the biopsy. 2. Thrombocytopenia, chronic, with periods of normal platelet counts in between. Plan bone marrow biopsy as described above. 3. Leukopenia reactive due to underlying sepsis. Monitor. 4. Sepsis. Appreciate ID consultation. DERREK PAYAN MD DR: CESARIO/elpidio JOB#: [id number] / [id number]
[2018-09-30] MEDS ORDERED: risperiDONE 1 MG TABLET. PO ONE (00:15)
[2018-09-30] MEDS: oxyCODONE/APAP 5/325 1 TAB TABLET PO PRN ×2 (00:22→15:30)
[2018-09-30 03:12] VITALS: BP 132/63
[2018-09-30 04:44] LABS: BASO % 1 % (0-3); EOS # 0.1 x10^3/uL (0.0-0.7); EOS % 2 % (0-3); HEMATOCRIT 29.3 % (39.0-53.0); HEMOGLOBIN 9.9 g/dL (13.0-17.5); LYMPH # 0.7 x10^3/uL (1.0-4.8); LYMPH % 20 % (24-48); MEAN CORPUSCULAR HEMOGLOBIN 37 pg (25-35); MEAN CORPUSCULAR HGB CONC 34 g/dL (31-37); MEAN CORPUSCULAR VOLUME 110 fL (79-100); MONO # 0.4 x10^3/uL (0.0-1.1); MONO % 12 % (0-9); NEUT # 2.1 x10^3uL (1.8-7.7); NEUT % 64 % (31-73); PLATELET COUNT 57 x10^3/uL (140-400); RED BLOOD COUNT 2.65 x10^6/uL (4.30-5.70); RED CELL DISTRIBUTION WIDTH 15.7 % (11.5-14.5); WHITE BLOOD COUNT 3.3 x10^3/uL (4.0-11.0)
[2018-09-30 05:05] LABS: CALCIUM 8.9 mg/dL (8.5-10.1); CREATININE 5.9 mg/dL (0.7-1.3); GFR 9.2; POTASSIUM 4.1 mmol/L (3.5-5.1)
[2018-09-30] MEDS: ACETAMINOPHEN 325 MG TABLET. PO PRN (05:11)
[2018-09-30] MEDS: PIPERACILLIN/TAZOBACTAM 2.25 GM in IV NORMAL SALINE 50ML 50 ML IV SCH ×3 (05:12→22:03)
[2018-09-30] MEDS: HEPARIN for SUB-Q USE 5,000 UNIT/ML VIAL. SQ SCH ×2 (05:21→13:29)
[2018-09-30 07:00] VITALS: BP 100/58
[2018-09-30] MEDS: IPRATRPIUM/ALBUTEROL 0.5/2.5MG 3 ML NEBU. NEB SCH ×4 (08:15→19:25)
--- NOTE | 2018-09-30 08:43 | PDOC ---
PROGRESS NOTES Chief Complaint Chief Complaint Acute respiratory failure Sepsis/ septic shock, secondary to pneumonia Coronary artery disease with previous coronary artery bypass grafting Acute metabolic toxic encephalopathy, present upon admission Protein malnutrition present upon admission Status post pacemaker Peripheral vascular disease Abnormal cxr with LLL infiltrate/ effusion Hyperkalemia, resolved PANCYTOPENIA TO SNF WHEN OK WITH ID/HEME RETIC, HAPTOGLOBIN FE/TIBC History of Present Illness History of Present Illness Pt seen and examined Sitting in chair, calm, cooperative, oxygen via nasal cannula Discussed with RN at bedside Vitals Vitals Vital Signs Date Time Temp Pulse Resp B/P (MAP) Pulse Ox O2 Delivery O2 Flow Rate FiO2 09/30/18 08:17 100 Nasal Cannula 2.5 09/30/18 07:00 97.7 104 18 100/58 (72) 97.7 Physical Exam Physical Exam GENERAL: Sitting in the chair, alert, relaxed appearance HEENT: Normal conjunctivae. Dentures NECK: Supple. LUNGS: Decreased aeration, nonlabored HEART: S1, S2 ABDOMEN: Obese, BS active, soft, nontender EXTREMITIES: No edema. Left upper extremity AV fistula site looks unremarkable. Lower extremity superficial abrasions present, not infected. SKIN: Warm, dry. No generalized rash. 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 PIV LIJ General: Alert, Cooperative, No acute distress Heart: Regular rate, Normal S1, Normal S2 Lungs: Clear Abdomen: Soft, No masses Extremities: No clubbing, No cyanosis Skin: No rashes, No breakdown Labs LABS Laboratory Tests Test 09/29/18 09:11 09/29/18 11:41 09/29/18 15:55 09/29/18 17:15 White Blood Count 3.2 x10^3/uL (4.0-11.0) Red Blood Count 2.71 x10^6/uL (4.30-5.70) Hemoglobin 10.1 g/dL (13.0-17.5) Hematocrit 29.7 % (39.0-53.0) Mean Corpuscular Volume 110 fL (79-100) Mean Corpuscular Hemoglobin 37 pg (25-35) Mean Corpuscular Hemoglobin Concent 34 g/dL (31-37) Red Cell Distribution Width 15.6 % (11.5-14.5) Platelet Count 55 x10^3/uL (140-400) Neutrophils (%) (Auto) 66 % (31-73) Lymphocytes (%) (Auto) 21 % (24-48) Monocytes (%) (Auto) 10 % (0-9) Eosinophils (%) (Auto) 1 % (0-3) Basophils (%) (Auto) 1 % (0-3) Neutrophils # (Auto) 2.1 x10^3uL (1.8-7.7) Lymphocytes # (Auto) 0.7 x10^3/uL (1.0-4.8) Monocytes # (Auto) 0.3 x10^3/uL (0.0-1.1) Eosinophils # (Auto) 0.0 x10^3/uL (0.0-0.7) Basophils # (Auto) 0.0 x10^3/uL (0.0-0.2) Reticulocyte Count (auto) 0.8 % (0.5-2.5) Haptoglobin 101 mg/dL (34-200) Sodium Level 138 mmol/L (136-145) Potassium Level 4.1 mmol/L (3.5-5.1) Chloride Level 97 mmol/L (98-107) Carbon Dioxide Level 28 mmol/L (21-32) Anion Gap 13 (6-14) Blood Urea Nitrogen 34 mg/dL (8-26) Creatinine 5.1 mg/dL (0.7-1.3) Estimated GFR (Cockcroft-Gault) 10.9 Glucose Level 199 mg/dL (70-99) Calcium Level 9.0 mg/dL (8.5-10.1) Glucose (Fingerstick) 232 mg/dL (70-99) 246 mg/dL (70-99) Iron Level 124 ug/dL (65-175) Total Iron Binding Capacity 221 ug/dL (250-450) Iron Saturation 56 % (15-34) Test 09/30/18 01:23 09/30/18 04:10 09/30/18 04:11 09/30/18 07:24 Glucose (Fingerstick) 232 mg/dL (70-99) 195 mg/dL (70-99) Sodium Level 138 mmol/L (136-145) Potassium Level 4.1 mmol/L (3.5-5.1) Chloride Level 99 mmol/L (98-107) Carbon Dioxide Level 25 mmol/L (21-32) Anion Gap 14 (6-14) Blood Urea Nitrogen 47 mg/dL (8-26) Creatinine 5.9 mg/dL (0.7-1.3) Estimated GFR (Cockcroft-Gault) 9.2 Glucose Level 278 mg/dL (70-99) Calcium Level 8.9 mg/dL (8.5-10.1) White Blood Count 3.3 x10^3/uL (4.0-11.0) Red Blood Count 2.65 x10^6/uL (4.30-5.70) Hemoglobin 9.9 g/dL (13.0-17.5) Hematocrit 29.3 % (39.0-53.0) Mean Corpuscular Volume 110 fL (79-100) Mean Corpuscular Hemoglobin 37 pg (25-35) Mean Corpuscular Hemoglobin Concent 34 g/dL (31-37) Red Cell Distribution Width 15.7 % (11.5-14.5) Platelet Count 57 x10^3/uL (140-400) Neutrophils (%) (Auto) 64 % (31-73) Lymphocytes (%) (Auto) 20 % (24-48) Monocytes (%) (Auto) 12 % (0-9) Eosinophils (%) (Auto) 2 % (0-3) Basophils (%) (Auto) 1 % (0-3) Neutrophils # (Auto) 2.1 x10^3uL (1.8-7.7) Lymphocytes # (Auto) 0.7 x10^3/uL (1.0-4.8) Monocytes # (Auto) 0.4 x10^3/uL (0.0-1.1) Eosinophils # (Auto) 0.1 x10^3/uL (0.0-0.7) Basophils # (Auto) 0.0 x10^3/uL (0.0-0.2) Assessment and Plan Assessmemt and Plan Problems Medical Problems: (1) Pneumonia Status: Acute Comment Review of Relevant I have reviewed the following items sarah (where applicable) has been applied. Labs Laboratory Tests Test 09/28/18 17:03 09/29/18 07:49 09/29/18 09:11 09/29/18 11:41 Glucose (Fingerstick) 233 mg/dL (70-99) 167 mg/dL (70-99) 232 mg/dL (70-99) White Blood Count 3.2 x10^3/uL (4.0-11.0) Red Blood Count 2.71 x10^6/uL (4.30-5.70) Hemoglobin 10.1 g/dL (13.0-17.5) Hematocrit 29.7 % (39.0-53.0) Mean Corpuscular Volume 110 fL (79-100) Mean Corpuscular Hemoglobin 37 pg (25-35) Mean Corpuscular Hemoglobin Concent 34 g/dL (31-37) Red Cell Distribution Width 15.6 % (11.5-14.5) Platelet Count 55 x10^3/uL (140-400) Neutrophils (%) (Auto) 66 % (31-73) Lymphocytes (%) (Auto) 21 % (24-48) Monocytes (%) (Auto) 10 % (0-9) Eosinophils (%) (Auto) 1 % (0-3) Basophils (%) (Auto) 1 % (0-3) Neutrophils # (Auto) 2.1 x10^3uL (1.8-7.7) Lymphocytes # (Auto) 0.7 x10^3/uL (1.0-4.8) Monocytes # (Auto) 0.3 x10^3/uL (0.0-1.1) Eosinophils # (Auto) 0.0 x10^3/uL (0.0-0.7) Basophils # (Auto) 0.0 x10^3/uL (0.0-0.2) Reticulocyte Count (auto) 0.8 % (0.5-2.5) Haptoglobin 101 mg/dL (34-200) Sodium Level 138 mmol/L (136-145) Potassium Level 4.1 mmol/L (3.5-5.1) Chloride Level 97 mmol/L (98-107) Carbon Dioxide Level 28 mmol/L (21-32) Anion Gap 13 (6-14) Blood Urea Nitrogen 34 mg/dL (8-26) Creatinine 5.1 mg/dL (0.7-1.3) Estimated GFR (Cockcroft-Gault) 10.9 Glucose Level 199 mg/dL (70-99) Calcium Level 9.0 mg/dL (8.5-10.1) Test 09/29/18 15:55 09/29/18 17:15 09/30/18 01:23 09/30/18 04:10 Iron Level 124 ug/dL (65-175) Total Iron Binding Capacity 221 ug/dL (250-450) Iron Saturation 56 % (15-34) Glucose (Fingerstick) 246 mg/dL (70-99) 232 mg/dL (70-99) Sodium Level 138 mmol/L (136-145) Potassium Level 4.1 mmol/L (3.5-5.1) Chloride Level 99 mmol/L (98-107) Carbon Dioxide Level 25 mmol/L (21-32) Anion Gap 14 (6-14) Blood Urea Nitrogen 47 mg/dL (8-26) Creatinine 5.9 mg/dL (0.7-1.3) Estimated GFR (Cockcroft-Gault) 9.2 Glucose Level 278 mg/dL (70-99) Calcium Level 8.9 mg/dL (8.5-10.1) Test 09/30/18 04:11 09/30/18 07:24 White Blood Count 3.3 x10^3/uL (4.0-11.0) Red Blood Count 2.65 x10^6/uL (4.30-5.70) Hemoglobin 9.9 g/dL (13.0-17.5) Hematocrit 29.3 % (39.0-53.0) Mean Corpuscular Volume 110 fL (79-100) Mean Corpuscular Hemoglobin 37 pg (25-35) Mean Corpuscular Hemoglobin Concent 34 g/dL (31-37) Red Cell Distribution Width 15.7 % (11.5-14.5) Platelet Count 57 x10^3/uL (140-400) Neutrophils (%) (Auto) 64 % (31-73) Lymphocytes (%) (Auto) 20 % (24-48) Monocytes (%) (Auto) 12 % (0-9) Eosinophils (%) (Auto) 2 % (0-3) Basophils (%) (Auto) 1 % (0-3) Neutrophils # (Auto) 2.1 x10^3uL (1.8-7.7) Lymphocytes # (Auto) 0.7 x10^3/uL (1.0-4.8) Monocytes # (Auto) 0.4 x10^3/uL (0.0-1.1) Eosinophils # (Auto) 0.1 x10^3/uL (0.0-0.7) Basophils # (Auto) 0.0 x10^3/uL (0.0-0.2) Glucose (Fingerstick) 195 mg/dL (70-99) Laboratory Tests Test 09/29/18 09:11 09/29/18 11:41 09/29/18 15:55 09/29/18 17:15 White Blood Count 3.2 x10^3/uL (4.0-11.0) Red Blood Count 2.71 x10^6/uL (4.30-5.70) Hemoglobin 10.1 g/dL (13.0-17.5) Hematocrit 29.7 % (39.0-53.0) Mean Corpuscular Volume 110 fL (79-100) Mean Corpuscular Hemoglobin 37 pg (25-35) Mean Corpuscular Hemoglobin Concent 34 g/dL (31-37) Red Cell Distribution Width 15.6 % (11.5-14.5) Platelet Count 55 x10^3/uL (140-400) Neutrophils (%) (Auto) 66 % (31-73) Lymphocytes (%) (Auto) 21 % (24-48) Monocytes (%) (Auto) 10 % (0-9) Eosinophils (%) (Auto) 1 % (0-3) Basophils (%) (Auto) 1 % (0-3) Neutrophils # (Auto) 2.1 x10^3uL (1.8-7.7) Lymphocytes # (Auto) 0.7 x10^3/uL (1.0-4.8) Monocytes # (Auto) 0.3 x10^3/uL (0.0-1.1) Eosinophils # (Auto) 0.0 x10^3/uL (0.0-0.7) Basophils # (Auto) 0.0 x10^3/uL (0.0-0.2) Reticulocyte Count (auto) 0.8 % (0.5-2.5) Haptoglobin 101 mg/dL (34-200) Sodium Level 138 mmol/L (136-145) Potassium Level 4.1 mmol/L (3.5-5.1) Chloride Level 97 mmol/L (98-107) Carbon Dioxide Level 28 mmol/L (21-32) Anion Gap 13 (6-14) Blood Urea Nitrogen 34 mg/dL (8-26) Creatinine 5.1 mg/dL (0.7-1.3) Estimated GFR (Cockcroft-Gault) 10.9 Glucose Level 199 mg/dL (70-99) Calcium Level 9.0 mg/dL (8.5-10.1) Glucose (Fingerstick) 232 mg/dL (70-99) 246 mg/dL (70-99) Iron Level 124 ug/dL (65-175) Total Iron Binding Capacity 221 ug/dL (250-450) Iron Saturation 56 % (15-34) Test 09/30/18 01:23 09/30/18 04:10 09/30/18 04:11 09/30/18 07:24 Glucose (Fingerstick) 232 mg/dL (70-99) 195 mg/dL (70-99) Sodium Level 138 mmol/L (136-145) Potassium Level 4.1 mmol/L (3.5-5.1) Chloride Level 99 mmol/L (98-107) Carbon Dioxide Level 25 mmol/L (21-32) Anion Gap 14 (6-14) Blood Urea Nitrogen 47 mg/dL (8-26) Creatinine 5.9 mg/dL (0.7-1.3) Estimated GFR (Cockcroft-Gault) 9.2 Glucose Level 278 mg/dL (70-99) Calcium Level 8.9 mg/dL (8.5-10.1) White Blood Count 3.3 x10^3/uL (4.0-11.0) Red Blood Count 2.65 x10^6/uL (4.30-5.70) Hemoglobin 9.9 g/dL (13.0-17.5) Hematocrit 29.3 % (39.0-53.0) Mean Corpuscular Volume 110 fL (79-100) Mean Corpuscular Hemoglobin 37 pg (25-35) Mean Corpuscular Hemoglobin Concent 34 g/dL (31-37) Red Cell Distribution Width 15.7 % (11.5-14.5) Platelet Count 57 x10^3/uL (140-400) Neutrophils (%) (Auto) 64 % (31-73) Lymphocytes (%) (Auto) 20 % (24-48) Monocytes (%) (Auto) 12 % (0-9) Eosinophils (%) (Auto) 2 % (0-3) Basophils (%) (Auto) 1 % (0-3) Neutrophils # (Auto) 2.1 x10^3uL (1.8-7.7) Lymphocytes # (Auto) 0.7 x10^3/uL (1.0-4.8) Monocytes # (Auto) 0.4 x10^3/uL (0.0-1.1) Eosinophils # (Auto) 0.1 x10^3/uL (0.0-0.7) Basophils # (Auto) 0.0 x10^3/uL (0.0-0.2) Microbiology 09/25/18 Blood Culture - Preliminary, Resulted NO GROWTH AFTER 4 DAYS Medications Current Medications Naloxone HCl (Narcan) 0.2 mg 1X ONCE IV Last administered on 09/25/18at 08:47 ; Start 09/25/18 at 08:45; Stop 09/25/18 at 08:46; Status DC Sodium Chloride 500 ml @ 500 mls/hr 1X ONCE IV Last administered on at 08:49; Start 09/25/18 at 08:45; Stop 09/25/18 at 09:44; Status DC Vancomycin HCl (Vanco Per Pharmacy) 1 each PRN DAILY PRN MC SEE COMMENTS Last administered on 09/28/18at 13:20; Start 09/25/18 at 09:30; Stop 09/29/18 at 15: 07; Status DC Piperacillin Sod/ Tazobactam Sod (Zosyn Per Pharmacy) 1 each PRN DAILY PRN MC SEE COMMENTS; Start 09/25/18 at 09:30 Piperacillin Sod/ Tazobactam Sod 2.25 gm/Sodium Chloride 50 ml @ 100 mls/hr 1X ONCE IV Last administered on 09/25/18at 09:48; Start 09/25/18 at 09:30; Stop 09/25/18 at 09:59; Status DC Vancomycin HCl 1.75 gm/Sodium Chloride 500 ml @ 250 mls/hr 1X ONCE IV Last administered on 09/25/18at 10:25; Start 09/25/18 at 09:45; Stop 09/25/18 at 11 :44; Status DC Sodium Chloride 500 ml @ 500 mls/hr 1X ONCE IV Last administered on at 09:48; Start 09/25/18 at 09:45; Stop 09/25/18 at 10:44; Status DC Sodium Chloride 500 ml @ 500 mls/hr 1X ONCE IV Last administered on at 11:16; Start 09/25/18 at 10:30; Stop 09/25/18 at 11:29; Status DC Norepinephrine Bitartrate 250 ml @ 0 mls/hr 1X ONCE IV Last administered on at 11:13; Start 09/25/18 at 10:30; Stop 09/25/18 at 14:39; Status DC Lidocaine HCl (Lidocaine 1% 20ml Vial) 20 ml STK-MED ONCE .ROUTE ; Start at 10:41; Stop 09/25/18 at 10:42; Status DC Vasopressin 40 unit/Dextrose 102 ml @ 6 mls/hr CONT PRN IV SEE I/O RECORD Last administered on 09/26/18at 04:12; Start 09/25/18 at 13:15; Stop 09/27/18 at 16 :31; Status DC Norepinephrine Bitartrate 250 ml @ 9.375 mls/ hr CONT PRN IV SEE I/O RECORD Last administered on 09/25/18at 19:33; Start 09/25/18 at 14:45; Stop 09/27/18 at 16:31; Status DC Piperacillin Sod/ Tazobactam Sod 2.25 gm/Sodium Chloride 50 ml @ 100 mls/hr Q8HRS IV Last administered on 09/30/18at 05:12; Start 09/25/18 at 16:00 Vancomycin HCl (Vancomycin Random Level) 1 each 1X ONCE MC Last administered on 09/26/18at 05:35; Start 09/26/18 at 06:00; Stop 09/26/18 at 06:02; Status DC Acetaminophen (Tylenol) 650 mg PRN Q6HRS PRN PO FEVER Last administered on 09/30at 05:11; Start 09/25/18 at 16:30 Ondansetron HCl (Zofran) 4 mg PRN Q6HRS PRN IV NAUSEA/VOMITING; Start at 16:30 Docusate Sodium (Colace) 100 mg PRN DAILY PRN PO CONSTIPATION; Start 09/25/18 at 16:30 Sodium Chloride 1,000 ml @ 75 mls/hr [id number] IV Last administered on at 05:51; Start 09/25/18 at 16:30; Stop 09/26/18 at 18:58; Status DC Famotidine (Pepcid Vial) 20 mg Q48H IVP Last administered on 09/29/18at 20:30; Start 09/25/18 at 21:00 Heparin Sodium (Porcine) (Heparin Sodium) 5,000 unit Q8HRS SQ Last administered on 09/30/18at 05:21; Start 09/25/18 at 22:00 Insulin Human Lispro (HumaLOG) 0-7 UNITS TIDWMEALS SQ Last administered on 09/29at 17:44; Start 09/25/18 at 17:00 Dextrose (Dextrose 50%-Water Syringe) 12.5 gm PRN Q15MIN PRN IV SEE COMMENTS; Start 09/25/18 at 16:30 Albuterol/ Ipratropium (Duoneb) 3 ml RTQID NEB Last administered on 09/30/18at 08:15; Start 09/25/18 at 20:00 Albuterol Sulfate (Ventolin Neb Soln) 2.5 mg PRN Q2HR PRN NEB SHORTNESS OF BREATH; Start 09/25/18 at 16:30 Guaifenesin (Mucinex) 600 mg BID PO Last administered on 09/29/18at 20:29; Start 09/25/18 at 21:00 Sodium Chloride 1,000 ml @ 1,000 mls/hr Q1H PRN IV hypotension; Start at 06:43; Stop 09/26/18 at 12:42; Status DC Albumin Human 200 ml @ 200 mls/hr 1X PRN PRN IV Hypotension; Start 09/26/18 at 06:45; Stop 09/26/18 at 12:54; Status DC Sodium Chloride (Normal Saline Flush) 10 ml 1X PRN PRN IV AP 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; Start 09/26/18 at 06:45; Stop 09/27/18 at 06:44; Status DC Sodium Chloride (Normal Saline Flush) 10 ml 1X PRN PRN IV DYE AND CHEMICAL COORDINATOR 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; Start 09/26/18 at 06:45; Stop 09/27/18 at 06:44; Status DC Sodium Chloride 1,000 ml @ 400 mls/hr Q2H30M PRN IV PATENCY; Start 09/26/18 at 06:43; Stop 09/26/18 at 18:42; Status DC Info (PHARMACY MONITORING -- do not chart) 1 each PRN DAILY PRN MC SEE COMMENTS ; Start 09/26/18 at 06:45; Status UNV Info (PHARMACY MONITORING -- do not chart) 1 each PRN DAILY PRN MC SEE COMMENTS ; Start 09/26/18 at 06:45 Vancomycin HCl 500 mg/Sodium Chloride 100 ml @ 100 mls/hr TuThSa IV Last administered on 09/28/18at 16:13; Start 09/26/18 at 16:00; Stop 09/29/18 at 15: 07; Status DC Lactobacillus Rhamnosus (Culturelle) 1 cap BID PO Last administered on at 20:29; Start 09/27/18 at 21:00 Sodium Chloride 1,000 ml @ 1,000 mls/hr Q1H PRN IV hypotension; Start 09/28/18 at 10:34; Stop 09/28/18 at 16:33; Status DC Sodium Chloride 1,000 ml @ 400 mls/hr Q2H30M PRN IV PATENCY; Start 09/28/18 at 10:34; Stop 09/28/18 at 22:33; Status DC Info (PHARMACY MONITORING -- do not chart) 1 each PRN DAILY PRN MC SEE COMMENTS ; Start 09/28/18 at 10:45; Status UNV Info (PHARMACY MONITORING -- do not chart) 1 each PRN DAILY PRN MC SEE COMMENTS ; Start 09/28/18 at 10:45; Status Cancel Albumin Human 200 ml @ 200 mls/hr 1X ONCE IV Last administered on 09/28/18at 12:26; Start 09/28/18 at 12:15; Stop 09/28/18 at 13:14; Status DC Haloperidol (Haldol) 0.5 mg 1X ONCE PO Last administered on 09/29/18at 02:51; Start 09/29/18 at 02:45; Stop 09/29/18 at 02:46; Status DC Alprazolam (Xanax) 0.25 mg PRN QHS PRN PO ANXIETY / AGITATION Last administered on 09/29/18at 20:29; Start 09/29/18 at 02:45 Oxycodone/ Acetaminophen (Percocet 5/325) 1 tab PRN Q6HRS PRN PO PAIN Last administered on 09/30/18at 00:22; Start 09/29/18 at 02:45 Sodium Chloride 1,000 ml @ 1,000 mls/hr Q1HR PRN IV hypotension Last administered on 09/29/18at 08:35; Start 09/29/18 at 08:15 Risperidone (RisperDAL) 0.5 mg 1X ONCE PO Last administered on 09/30/18at 00:22 ; Start 09/30/18 at 00:15; Stop 09/30/18 at 00:16; Status DC Active Scripts Active Humalog (Insulin Lispro) 100 Unit/1 Ml Insuln.pen 10 Units SQ TIDWMEALS 30 Days Haloperidol 2 Mg Tablet 0.5 Tab PO Q12HR Lantus Solostar (Insulin Glargine,Hum.rec.anlog) 100 Unit/1 Ml Insuln.pen 24 Unit SQ QHS 30 Days Alprazolam 0.5 Mg Tablet 1 Tab PO HS PRN Reported Tamsulosin Hcl 0.4 Mg Cap.er.24h 0.8 Mg PO DAILY Spironolactone 25 Mg Tablet 1 Tab PO DAILY Senokot (Sennosides) 8.6 Mg Tablet 1 Tab PO BID Requip (Ropinirole Hcl) 1 Mg Tablet 1 Tab PO QHS Lyrica (Pregabalin) 75 Mg Capsule 1 Cap PO BID Super Enzyme Caps (Pancreat/Bet Hcl/Pep/Brom/Pap) 1 Each Capsule 4 Cap PO QID Magnesium Oxide 400 Mg Tablet 1 Tab PO DAILY Gemfibrozil 600 Mg Tablet 1 Tab PO BIDWMEALS Folic Acid 1 Mg Tablet 1 Tab PO DAILY Fish Oil 1,000 Mg Capsule (Ruffin-3 Fatty Acids/Fish Oil) 1 Each Capsule 2,000 Each PO BID Cyclobenzaprine Hcl 10 Mg Tablet 1 Tab PO BID Irina Elias 6,000 Units Capsule (Lipase/Protease/Amylase) 1 Each Capsule. 1 Each PO QID Vitamin D3 (Cholecalciferol (Vitamin D3)) 1,000 Unit Tablet 3 Tab PO DAILY Aspirin Ec (Aspirin) 81 Mg Tablet.dr 1 Tab PO DAILY Acetaminophen 500 Mg Tablet 1,000 Mg PO PRN DAILY PRN Midodrine Hcl 5 Mg Tablet 5 Mg PO 3X/WEEK Hydroxyzine Hcl 25 Mg Tablet 25 Mg PO QID Calcium Acetate 667 Mg Tablet 2 Cap PO BIDAC Prevalite Packet (Cholestyramine/Aspartame) 4 Gm Powd.pack 4 Gm PO BID Toprol Xl (Metoprolol Succinate) 25 Mg Tab.er.24h 1 Tab PO DAILY Furosemide 40 Mg Tablet 2 Tab PO DAILY Diltiazem 24HR Cd (Diltiazem Hcl) 120 Mg Cap.er.24h 1 Cap PO DAILY Percocet 5-325 Mg Tablet (Oxycodone/Acetaminophen) 1 Each Tablet 1 Tab PO QID Humalog (Insulin Lispro) 100 Unit/1 Ml Cartridge 8 Unit SQ TIDAC Prilosec Otc (Omeprazole Magnesium) 20 Mg Tablet.dr 20 Mg PO DAILY Vitals/I & O Vital Sign - Last 24 Hours 09/29/18 09/29/18 09/29/18 09/29/18 09:46 09:56 11:03 15:00 Temp 98.0 98.0 Pulse 113 115 Resp 20 B/P (MAP) 98/56 (70) 114/57 (76) Pulse Ox 99 100 100 O2 Delivery Nasal Cannula Nasal Cannula Nasal Cannula Nasal Cannula O2 Flow Rate 4.0 4.0 4.0 3.0 09/29/18 09/29/18 09/29/18 09/29/18 15:37 19:16 20:00 20:22 Temp 97.5 97.5 Pulse 116 Resp 18 B/P (MAP) 113/54 (73) Pulse Ox 97 100 O2 Delivery Nasal Cannula Nasal Cannula Nasal Cannula Nasal Cannula O2 Flow Rate 3.0 4.0 3.0 3.0 09/29/18 09/29/18 09/30/18 09/30/18 20:30 22:18 00:22 01:22 Temp 97.6 97.6 Pulse 104 Resp 20 B/P (MAP) 152/84 (106) Pulse Ox 99 O2 Delivery Nasal Cannula Nasal Cannula Nasal Cannula Nasal Cannula O2 Flow Rate 3.0 4.0 3.0 3.0 09/30/18 09/30/18 09/30/18 03:12 07:00 08:17 Temp 97.5 97.7 97.5 97.7 Pulse 90 104 Resp 18 18 B/P (MAP) 132/63 (86) 100/58 (72) Pulse Ox 97 100 100 O2 Delivery Nasal Cannula Nasal Cannula Nasal Cannula O2 Flow Rate 4.0 4.0 2.5 Intake and Output 09/29/18 09/29/18 09/30/18 15:00 23:00 07:00 Intake Total 120 ml 400 ml 300 ml Balance 120 ml 400 ml 300 ml JENNIFER EPPERSON MD Sep 30, 2018 08:43
[2018-09-30] MEDS: LACTOBACILLUS RHAMNOSUS GG 1 CAPSULE. PO SCH ×2 (08:52→22:02)
[2018-09-30] MEDS: INSULIN LISPRO 300 UNITS/3 ML INSULN.PEN. SQ SCH ×3 (09:04→17:45)
--- NOTE | 2018-09-30 09:34 | PDOC ---
PULMONARY PROGRESS NOTES Subjective no soa, some cough Vitals Vital Signs Date Time Temp Pulse Resp B/P (MAP) Pulse Ox O2 Delivery O2 Flow Rate FiO2 09/30/18 08:17 100 Nasal Cannula 2.5 09/30/18 07:00 97.7 104 18 100/58 (72) 97.7 General: Alert, No acute distress HEENT: Other Lungs: Clear Cardiovascular: S1 Abdomen: Soft Neuro Exam: Alert Extremities: Other (trace edema) Skin: Warm Labs Laboratory Tests Test 09/28/18 17:03 09/29/18 07:49 09/29/18 09:11 09/29/18 11:41 Glucose (Fingerstick) 233 mg/dL (70-99) 167 mg/dL (70-99) 232 mg/dL (70-99) White Blood Count 3.2 x10^3/uL (4.0-11.0) Red Blood Count 2.71 x10^6/uL (4.30-5.70) Hemoglobin 10.1 g/dL (13.0-17.5) Hematocrit 29.7 % (39.0-53.0) Mean Corpuscular Volume 110 fL (79-100) Mean Corpuscular Hemoglobin 37 pg (25-35) Mean Corpuscular Hemoglobin Concent 34 g/dL (31-37) Red Cell Distribution Width 15.6 % (11.5-14.5) Platelet Count 55 x10^3/uL (140-400) Neutrophils (%) (Auto) 66 % (31-73) Lymphocytes (%) (Auto) 21 % (24-48) Monocytes (%) (Auto) 10 % (0-9) Eosinophils (%) (Auto) 1 % (0-3) Basophils (%) (Auto) 1 % (0-3) Neutrophils # (Auto) 2.1 x10^3uL (1.8-7.7) Lymphocytes # (Auto) 0.7 x10^3/uL (1.0-4.8) Monocytes # (Auto) 0.3 x10^3/uL (0.0-1.1) Eosinophils # (Auto) 0.0 x10^3/uL (0.0-0.7) Basophils # (Auto) 0.0 x10^3/uL (0.0-0.2) Reticulocyte Count (auto) 0.8 % (0.5-2.5) Haptoglobin 101 mg/dL (34-200) Sodium Level 138 mmol/L (136-145) Potassium Level 4.1 mmol/L (3.5-5.1) Chloride Level 97 mmol/L (98-107) Carbon Dioxide Level 28 mmol/L (21-32) Anion Gap 13 (6-14) Blood Urea Nitrogen 34 mg/dL (8-26) Creatinine 5.1 mg/dL (0.7-1.3) Estimated GFR (Cockcroft-Gault) 10.9 Glucose Level 199 mg/dL (70-99) Calcium Level 9.0 mg/dL (8.5-10.1) Test 09/29/18 15:55 09/29/18 17:15 09/30/18 01:23 09/30/18 04:10 Iron Level 124 ug/dL (65-175) Total Iron Binding Capacity 221 ug/dL (250-450) Iron Saturation 56 % (15-34) Glucose (Fingerstick) 246 mg/dL (70-99) 232 mg/dL (70-99) Sodium Level 138 mmol/L (136-145) Potassium Level 4.1 mmol/L (3.5-5.1) Chloride Level 99 mmol/L (98-107) Carbon Dioxide Level 25 mmol/L (21-32) Anion Gap 14 (6-14) Blood Urea Nitrogen 47 mg/dL (8-26) Creatinine 5.9 mg/dL (0.7-1.3) Estimated GFR (Cockcroft-Gault) 9.2 Glucose Level 278 mg/dL (70-99) Calcium Level 8.9 mg/dL (8.5-10.1) Test 09/30/18 04:11 09/30/18 07:24 White Blood Count 3.3 x10^3/uL (4.0-11.0) Red Blood Count 2.65 x10^6/uL (4.30-5.70) Hemoglobin 9.9 g/dL (13.0-17.5) Hematocrit 29.3 % (39.0-53.0) Mean Corpuscular Volume 110 fL (79-100) Mean Corpuscular Hemoglobin 37 pg (25-35) Mean Corpuscular Hemoglobin Concent 34 g/dL (31-37) Red Cell Distribution Width 15.7 % (11.5-14.5) Platelet Count 57 x10^3/uL (140-400) Neutrophils (%) (Auto) 64 % (31-73) Lymphocytes (%) (Auto) 20 % (24-48) Monocytes (%) (Auto) 12 % (0-9) Eosinophils (%) (Auto) 2 % (0-3) Basophils (%) (Auto) 1 % (0-3) Neutrophils # (Auto) 2.1 x10^3uL (1.8-7.7) Lymphocytes # (Auto) 0.7 x10^3/uL (1.0-4.8) Monocytes # (Auto) 0.4 x10^3/uL (0.0-1.1) Eosinophils # (Auto) 0.1 x10^3/uL (0.0-0.7) Basophils # (Auto) 0.0 x10^3/uL (0.0-0.2) Glucose (Fingerstick) 195 mg/dL (70-99) Laboratory Tests Test 09/29/18 11:41 09/29/18 15:55 09/29/18 17:15 09/30/18 01:23 Glucose (Fingerstick) 232 mg/dL (70-99) 246 mg/dL (70-99) 232 mg/dL (70-99) Iron Level 124 ug/dL (65-175) Total Iron Binding Capacity 221 ug/dL (250-450) Iron Saturation 56 % (15-34) Test 09/30/18 04:10 09/30/18 04:11 09/30/18 07:24 Sodium Level 138 mmol/L (136-145) Potassium Level 4.1 mmol/L (3.5-5.1) Chloride Level 99 mmol/L (98-107) Carbon Dioxide Level 25 mmol/L (21-32) Anion Gap 14 (6-14) Blood Urea Nitrogen 47 mg/dL (8-26) Creatinine 5.9 mg/dL (0.7-1.3) Estimated GFR (Cockcroft-Gault) 9.2 Glucose Level 278 mg/dL (70-99) Calcium Level 8.9 mg/dL (8.5-10.1) White Blood Count 3.3 x10^3/uL (4.0-11.0) Red Blood Count 2.65 x10^6/uL (4.30-5.70) Hemoglobin 9.9 g/dL (13.0-17.5) Hematocrit 29.3 % (39.0-53.0) Mean Corpuscular Volume 110 fL (79-100) Mean Corpuscular Hemoglobin 37 pg (25-35) Mean Corpuscular Hemoglobin Concent 34 g/dL (31-37) Red Cell Distribution Width 15.7 % (11.5-14.5) Platelet Count 57 x10^3/uL (140-400) Neutrophils (%) (Auto) 64 % (31-73) Lymphocytes (%) (Auto) 20 % (24-48) Monocytes (%) (Auto) 12 % (0-9) Eosinophils (%) (Auto) 2 % (0-3) Basophils (%) (Auto) 1 % (0-3) Neutrophils # (Auto) 2.1 x10^3uL (1.8-7.7) Lymphocytes # (Auto) 0.7 x10^3/uL (1.0-4.8) Monocytes # (Auto) 0.4 x10^3/uL (0.0-1.1) Eosinophils # (Auto) 0.1 x10^3/uL (0.0-0.7) Basophils # (Auto) 0.0 x10^3/uL (0.0-0.2) Glucose (Fingerstick) 195 mg/dL (70-99) Medications Active Scripts Medications Dose Route/Sig Max Daily Dose Days Date Category Humalog (Insulin Lispro) 100 Unit/1 Ml Insuln.pen 10 Units SQ TIDWMEALS 30 08/14/18 Rx Haloperidol 2 Mg Tablet 0.5 Tab PO Q12HR 08/14/18 Rx Lantus Solostar (Insulin Glargine,Hum.rec.anlog) 100 Unit/1 Ml Insuln.pen 24 Unit SQ QHS 30 08/14/18 Rx Alprazolam 0.5 Mg Tablet 1 Tab PO HS PRN 08/14/18 Rx Tamsulosin Hcl 0.4 Mg Cap.er.24h 0.8 Mg PO DAILY 08/11/18 Reported Spironolactone 25 Mg Tablet 1 Tab PO DAILY 08/11/18 Reported Senokot (Sennosides) 8.6 Mg Tablet 1 Tab PO BID 08/11/18 Reported Requip (Ropinirole Hcl) 1 Mg Tablet 1 Tab PO QHS 08/11/18 Reported Lyrica (Pregabalin) 75 Mg Capsule 1 Cap PO BID 08/11/18 Reported Super Enzyme Caps (Pancreat/Bet Hcl/Pep/Brom/Pap) 1 Each Capsule 4 Cap PO QID 08/11/18 Reported Magnesium Oxide 400 Mg Tablet 1 Tab PO DAILY 08/11/18 Reported Gemfibrozil 600 Mg Tablet 1 Tab PO BIDWMEALS 08/11/18 Reported Folic Acid 1 Mg Tablet 1 Tab PO DAILY 08/11/18 Reported Fish Oil 1,000 Mg Capsule ([place]-3 Fatty Acids/Fish Oil) 1 Each Capsule 2,000 Each PO BID 08/11/18 Reported Cyclobenzaprine Hcl 10 Mg Tablet 1 Tab PO BID 08/11/18 Reported Irina Elias 6,000 Units Capsule (Lipase/Protease/Amylase) 1 Each Capsule.dr 1 Each PO QID 08/11/18 Reported Vitamin D3 (Cholecalciferol (Vitamin D3)) 1,000 Unit Tablet 3 Tab PO DAILY 08/11/18 Reported Aspirin Ec (Aspirin) 81 Mg Tablet.dr 1 Tab PO DAILY 08/11/18 Reported Acetaminophen 500 Mg Tablet 1,000 Mg PO PRN DAILY PRN 08/11/18 Reported Midodrine Hcl 5 Mg Tablet 5 Mg PO 3X/WEEK 06/06/18 Reported Hydroxyzine Hcl 25 Mg Tablet 25 Mg PO QID 06/06/18 Reported Calcium Acetate 667 Mg Tablet 2 Cap PO BIDAC 06/06/18 Reported Prevalite Packet (Cholestyramine/Aspartame) 4 Gm Powd.pack 4 Gm PO BID 06/06/18 Reported Toprol Xl (Metoprolol Succinate) 25 Mg Tab.er.24h 1 Tab PO DAILY 06/06/18 Reported Furosemide 40 Mg Tablet 2 Tab PO DAILY 06/06/18 Reported Diltiazem 24HR Cd (Diltiazem Hcl) 120 Mg Cap.er.24h 1 Cap PO DAILY 06/06/18 Reported Percocet 5-325 Mg Tablet (Oxycodone/Acetaminophen) 1 Each Tablet 1 Tab PO QID 06/06/17 Reported Humalog (Insulin Lispro) 100 Unit/1 Ml Cartridge 8 Unit SQ TIDAC 06/06/17 Reported Prilosec Otc (Omeprazole Magnesium) 20 Mg Tablet.dr 20 Mg PO DAILY 11/20/14 Reported Impression . 1. Acute respiratory failure. 2. Sepsis/ septic shock. secondary to pneumonia. resolved 3. Coronary artery disease with previous coronary artery bypass grafting. 4. Acute metabolic toxic encephalopathy, present upon admission. 5. Protein malnutrition present upon admission. 6. Status post pacemaker. 7. Peripheral vascular disease. 8. Abnormal cxr with LLL infiltrate/ effusion Plan . 1. nasal canula 2. antibiotics per ID 3. oral nutrition 4. ct chest reviewed. Small-moderate LLL effusion. Monitor for now 6. HD 7. ok with dc to skill DNR/DNI d/w MAZIN Miles MD Sep 30, 2018 09:34
[2018-09-30] MEDS ORDERED: IV NORMAL SALINE 1000ML BAG 1,000 ML IV PRN ×2 (10:31)
[2018-09-30] MEDS ORDERED: DIALYSIS PATIENT. MC PRN ×2 (10:45)
[2018-09-30 11:00] VITALS: BP 117/57
--- NOTE | 2018-09-30 11:41 | PDOC ---
Renal-Progress Notes Subjective Notes Notes NONE History of Present Illness Hx of present illness STABLE Vitals Vitals Vital Signs Date Time Temp Pulse Resp B/P (MAP) Pulse Ox O2 Delivery O2 Flow Rate FiO2 09/30/18 11:00 97.2 57 18 117/57 (77) 95 Nasal Cannula 4.0 97.2 Weight Weight [ ] I.O. Intake and Output Intake and Output 09/30/18 07:00 Intake Total 820 ml Balance 820 ml Intake Oral 820 ml # Voids 5 Labs Labs Laboratory Tests Test 09/29/18 15:55 09/29/18 17:15 09/30/18 01:23 09/30/18 04:10 Iron Level 124 ug/dL (65-175) Total Iron Binding Capacity 221 ug/dL (250-450) Iron Saturation 56 % (15-34) Glucose (Fingerstick) 246 mg/dL (70-99) 232 mg/dL (70-99) Sodium Level 138 mmol/L (136-145) Potassium Level 4.1 mmol/L (3.5-5.1) Chloride Level 99 mmol/L (98-107) Carbon Dioxide Level 25 mmol/L (21-32) Anion Gap 14 (6-14) Blood Urea Nitrogen 47 mg/dL (8-26) Creatinine 5.9 mg/dL (0.7-1.3) Estimated GFR (Cockcroft-Gault) 9.2 Glucose Level 278 mg/dL (70-99) Calcium Level 8.9 mg/dL (8.5-10.1) Test 09/30/18 04:11 09/30/18 07:24 White Blood Count 3.3 x10^3/uL (4.0-11.0) Red Blood Count 2.65 x10^6/uL (4.30-5.70) Hemoglobin 9.9 g/dL (13.0-17.5) Hematocrit 29.3 % (39.0-53.0) Mean Corpuscular Volume 110 fL (79-100) Mean Corpuscular Hemoglobin 37 pg (25-35) Mean Corpuscular Hemoglobin Concent 34 g/dL (31-37) Red Cell Distribution Width 15.7 % (11.5-14.5) Platelet Count 57 x10^3/uL (140-400) Neutrophils (%) (Auto) 64 % (31-73) Lymphocytes (%) (Auto) 20 % (24-48) Monocytes (%) (Auto) 12 % (0-9) Eosinophils (%) (Auto) 2 % (0-3) Basophils (%) (Auto) 1 % (0-3) Neutrophils # (Auto) 2.1 x10^3uL (1.8-7.7) Lymphocytes # (Auto) 0.7 x10^3/uL (1.0-4.8) Monocytes # (Auto) 0.4 x10^3/uL (0.0-1.1) Eosinophils # (Auto) 0.1 x10^3/uL (0.0-0.7) Basophils # (Auto) 0.0 x10^3/uL (0.0-0.2) Glucose (Fingerstick) 195 mg/dL (70-99) Micro Micro Microbiology 09/25/18 Blood Culture - Final, Complete NO GROWTH AFTER 5 DAYS Review of Systems Constitutional: yes: weakness, alert Ears/Nose/Throat: Yes: no symptom reported Eyes: Yes: no symptom reported Pulmonary: Yes no symptom reported Cardiovascular: Yes no symptom reported Gastrointestional: Yes: no symptom reported Genitourinary: Yes: no symptom reported Musculoskeletal: Yes: no symptom reported Skin: Yes no symptom reported Psychiatric/Neurological: Yes: no symptom reported Physical Exam General Appearance: no apparent distress Skin: warm Respiratory: decreased breath sounds Heart: S1S2 Abdomen: soft, bowel sounds present Genitourinary: bladder flat Extremities: pulses present Neurology: alert Musculoskeletal: Osteoarthritis Assessment Assessment IMP ESRD DM II HTN ANEMIA SEPSIS ? LLL PNA PLAN ANTIBIOTICS HD TODAY UF TO ARACELI LANDIN MD Sep 30, 2018 11:41
--- NOTE | 2018-09-30 12:01 | PDOC ---
Infectious Disease Note Subjective Subjective Comfortable Appetite good No fevers Denies N/V/D In HD ROS ROS per HPI otherwise neg Vital Sign Vital Signs Vital Signs Date Time Temp Pulse Resp B/P (MAP) Pulse Ox O2 Delivery O2 Flow Rate FiO2 09/30/18 11:00 97.2 57 18 117/57 (77) 95 Nasal Cannula 4.0 97.2 Physical Exam PHYSICAL EXAM GENERAL: Dialyzing, alert, relaxed appearance HEENT: Normal conjunctivae. Oral cavity clear, Dentures in place NECK: Supple. LUNGS: Decreased aeration, nonlabored HEART: S1, S2 ABDOMEN: Obese, BS active, soft, nontender EXTREMITIES: Trace edema BLE, Left upper extremity AV fistula site looks unremarkable. Lower extremity superficial abrasions present, not infected. SKIN: Warm, dry. No generalized rash. REPRESENTATIVE: Awake, responds appropriately PIV [facility] Labs Lab Laboratory Tests Test 09/29/18 15:55 09/29/18 17:15 09/30/18 01:23 09/30/18 04:10 Iron Level 124 ug/dL (65-175) Total Iron Binding Capacity 221 ug/dL (250-450) Iron Saturation 56 % (15-34) Glucose (Fingerstick) 246 mg/dL (70-99) 232 mg/dL (70-99) Sodium Level 138 mmol/L (136-145) Potassium Level 4.1 mmol/L (3.5-5.1) Chloride Level 99 mmol/L (98-107) Carbon Dioxide Level 25 mmol/L (21-32) Anion Gap 14 (6-14) Blood Urea Nitrogen 47 mg/dL (8-26) Creatinine 5.9 mg/dL (0.7-1.3) Estimated GFR (Cockcroft-Gault) 9.2 Glucose Level 278 mg/dL (70-99) Calcium Level 8.9 mg/dL (8.5-10.1) Test 09/30/18 04:11 09/30/18 07:24 White Blood Count 3.3 x10^3/uL (4.0-11.0) Red Blood Count 2.65 x10^6/uL (4.30-5.70) Hemoglobin 9.9 g/dL (13.0-17.5) Hematocrit 29.3 % (39.0-53.0) Mean Corpuscular Volume 110 fL (79-100) Mean Corpuscular Hemoglobin 37 pg (25-35) Mean Corpuscular Hemoglobin Concent 34 g/dL (31-37) Red Cell Distribution Width 15.7 % (11.5-14.5) Platelet Count 57 x10^3/uL (140-400) Neutrophils (%) (Auto) 64 % (31-73) Lymphocytes (%) (Auto) 20 % (24-48) Monocytes (%) (Auto) 12 % (0-9) Eosinophils (%) (Auto) 2 % (0-3) Basophils (%) (Auto) 1 % (0-3) Neutrophils # (Auto) 2.1 x10^3uL (1.8-7.7) Lymphocytes # (Auto) 0.7 x10^3/uL (1.0-4.8) Monocytes # (Auto) 0.4 x10^3/uL (0.0-1.1) Eosinophils # (Auto) 0.1 x10^3/uL (0.0-0.7) Basophils # (Auto) 0.0 x10^3/uL (0.0-0.2) Glucose (Fingerstick) 195 mg/dL (70-99) Micro 09/25/18 Blood Culture - Preliminary, Resulted NO GROWTH AFTER 5 DAYS Objective Assessment Pancytopenia Sepsis with hypotension requiring vasopressor support. now off Suspected pneumonia. Acute respiratory failure, now on O2,off bipap Coronary artery disease with coronary artery bypass grafting. Status post pacemaker. End-stage renal disease, on hemodialysis via AV fistula. Diabetes. History of multiple hospitalizations this year, requiring antibiotic support. History of [place] healthcare-associated pneumonia, 07/2018, treated. History of benign prostatic hypertrophy with urinary retention. Legally blind. History of mild dysphagia with aspiration of thin liquids per past video swallow study. Sulfa allergy. Small LLL effusion Plan Plan of Care Cont Zosyn (09/25) ? med causing count drop - states Dr. Ruiz to do a bone marrow as he has a h/o malignancy BC neg Supportive care Attending Co-Sign Attending Co-Sign The patient was seen and interviewed as well as examined at the bedside. The chart was reviewed. The case was discussed. Agree with the plan of care. YU LUO APRN Sep 30, 2018 12:01 JOSE FELIX MD Sep 30, 2018 13:17
--- NOTE | 2018-09-30 14:48 | RAD ---
Examination: CT chest without contrast HISTORY: History of shortness of breath Comparison: 08/17/2018 TECHNIQUE: Axial CT images of the chest were performed without contrast. Coronal and sagittal reformats are performed Exposure: One or more of the following individualized dose reduction techniques were utilized for this examination: 1. Automated exposure control 2. Adjustment of the mA and/or kV according to patient size 3. Use of iterative reconstruction technique Findings: The central airways are patent. Mild cardiomegaly. Right-sided pacer is identified. Coronary artery calcifications identified. A metallic device identified in the left atrium similar to prior exam. Small to moderate left pleural effusion with left lower lobe lung consolidation or pneumonia or atelectasis similar to prior exam.Trace right pleural effusion. There is consolidation of the left lingula. The visualized noncontrasted liver, spleen, adrenals grossly appears unremarkable Trace perihepatic fluid partially visualized. The gallbladder is mildly distended. No radiologically significant mediastinal lymphadenopathy is identified. Spinal stimulator leads project in the mid thoracic level. Mild degenerative changes thoracic spine. IMPRESSION: 1. Mild consolidation of the left lingula of the lung likely pneumonia. 2. Unchanged left lower lobe consolidation or atelectasis with mild to moderate left pleural effusion is unchanged. 3. Coronary artery calcifications. Electronically signed by: Jon Lima MD (09/30/2018 2:45 PM) [facility]
[2018-09-30 15:00] VITALS: BP 106/47
[2018-09-30 19:45] VITALS: BP 108/53
[2018-09-30] MEDS: ALPRAZolam 0.25 MG TABLET PO PRN (22:02)
[2018-09-30 23:41] VITALS: BP 115/49
[2018-10-01 03:34] VITALS: BP 105/51
[2018-10-01] MEDS: oxyCODONE/APAP 5/325 1 TAB TABLET PO PRN ×2 (04:36→22:08)
[2018-10-01 05:19] LABS: BASO % 1 % (0-3); EOS # 0.1 x10^3/uL (0.0-0.7); EOS % 2 % (0-3); HEMATOCRIT 27.8 % (39.0-53.0); HEMOGLOBIN 9.4 g/dL (13.0-17.5); LYMPH # 0.6 x10^3/uL (1.0-4.8); LYMPH % 18 % (24-48); MEAN CORPUSCULAR HEMOGLOBIN 37 pg (25-35); MEAN CORPUSCULAR HGB CONC 34 g/dL (31-37); MEAN CORPUSCULAR VOLUME 109 fL (79-100); MONO # 0.4 x10^3/uL (0.0-1.1); MONO % 13 % (0-9); NEUT # 2.3 x10^3uL (1.8-7.7); NEUT % 66 % (31-73); PLATELET COUNT 73 x10^3/uL (140-400); RED BLOOD COUNT 2.55 x10^6/uL (4.30-5.70); RED CELL DISTRIBUTION WIDTH 15.6 % (11.5-14.5); WHITE BLOOD COUNT 3.5 x10^3/uL (4.0-11.0)
[2018-10-01 05:41] LABS: CALCIUM 9.1 mg/dL (8.5-10.1); CREATININE 4.3 mg/dL (0.7-1.3); GFR 13.3; POTASSIUM 4.4 mmol/L (3.5-5.1)
[2018-10-01] MEDS: PIPERACILLIN/TAZOBACTAM 2.25 GM in IV NORMAL SALINE 50ML 50 ML IV SCH ×3 (05:43→21:35)
[2018-10-01] MEDS: IPRATRPIUM/ALBUTEROL 0.5/2.5MG 3 ML NEBU. NEB SCH ×4 (06:50→18:05)
[2018-10-01 07:00] VITALS: BP 104/56
--- NOTE | 2018-10-01 09:20 | PDOC ---
PROGRESS NOTES Chief Complaint Chief Complaint Acute respiratory failure Sepsis/ septic shock, secondary to pneumonia Coronary artery disease with previous coronary artery bypass grafting Acute metabolic toxic encephalopathy, present upon admission Protein malnutrition present upon admission Status post pacemaker Peripheral vascular disease Abnormal cxr with LLL infiltrate/ effusion Hyperkalemia, resolved PANCYTOPENIA TO SNF WHEN OK WITH ID/HEME RETIC, HAPTOGLOBIN FE/TIBC History of Present Illness History of Present Illness Pt seen and examined Sitting in chair, calm, cooperative, oxygen via nasal cannula Discussed with RN at bedside Vitals Vitals Vital Signs Date Time Temp Pulse Resp B/P (MAP) Pulse Ox O2 Delivery O2 Flow Rate FiO2 10/01/18 07:00 97.7 108 20 104/56 (72) 100 Nasal Cannula 3.0 97.7 Physical Exam Physical Exam GENERAL: Dialyzing, alert, relaxed appearance HEENT: Normal conjunctivae. Oral cavity clear, Dentures in place NECK: Supple. LUNGS: Decreased aeration, nonlabored HEART: S1, S2 ABDOMEN: Obese, BS active, soft, nontender EXTREMITIES: Trace edema BLE, Left upper extremity AV fistula site looks unremarkable. Lower extremity superficial abrasions present, not infected. SKIN: Warm, dry. No generalized rash. 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 PIV LIJ General: Alert, Cooperative, No acute distress Heart: Regular rate, Normal S1, Normal S2 Lungs: Clear Abdomen: Soft, No masses Extremities: No clubbing, No cyanosis Skin: No rashes, No breakdown Labs LABS Laboratory Tests Test 09/30/18 15:16 09/30/18 16:45 09/30/18 20:28 10/01/18 04:40 Glucose (Fingerstick) 140 mg/dL (70-99) 214 mg/dL (70-99) 286 mg/dL (70-99) White Blood Count 3.5 x10^3/uL (4.0-11.0) Red Blood Count 2.55 x10^6/uL (4.30-5.70) Hemoglobin 9.4 g/dL (13.0-17.5) Hematocrit 27.8 % (39.0-53.0) Mean Corpuscular Volume 109 fL (79-100) Mean Corpuscular Hemoglobin 37 pg (25-35) Mean Corpuscular Hemoglobin Concent 34 g/dL (31-37) Red Cell Distribution Width 15.6 % (11.5-14.5) Platelet Count 73 x10^3/uL (140-400) Neutrophils (%) (Auto) 66 % (31-73) Lymphocytes (%) (Auto) 18 % (24-48) Monocytes (%) (Auto) 13 % (0-9) Eosinophils (%) (Auto) 2 % (0-3) Basophils (%) (Auto) 1 % (0-3) Neutrophils # (Auto) 2.3 x10^3uL (1.8-7.7) Lymphocytes # (Auto) 0.6 x10^3/uL (1.0-4.8) Monocytes # (Auto) 0.4 x10^3/uL (0.0-1.1) Eosinophils # (Auto) 0.1 x10^3/uL (0.0-0.7) Basophils # (Auto) 0.0 x10^3/uL (0.0-0.2) Sodium Level 137 mmol/L (136-145) Potassium Level 4.4 mmol/L (3.5-5.1) Chloride Level 97 mmol/L (98-107) Carbon Dioxide Level 28 mmol/L (21-32) Anion Gap 12 (6-14) Blood Urea Nitrogen 27 mg/dL (8-26) Creatinine 4.3 mg/dL (0.7-1.3) Estimated GFR (Cockcroft-Gault) 13.3 Glucose Level 198 mg/dL (70-99) Calcium Level 9.1 mg/dL (8.5-10.1) Test 10/01/18 07:07 Glucose (Fingerstick) 192 mg/dL (70-99) Assessment and Plan Assessmemt and Plan Problems Medical Problems: (1) Pneumonia Status: Acute Comment Review of Relevant I have reviewed the following items sarah (where applicable) has been applied. Labs Laboratory Tests Test 09/29/18 11:41 09/29/18 15:55 09/29/18 17:15 09/30/18 01:23 Glucose (Fingerstick) 232 mg/dL (70-99) 246 mg/dL (70-99) 232 mg/dL (70-99) Iron Level 124 ug/dL (65-175) Total Iron Binding Capacity 221 ug/dL (250-450) Iron Saturation 56 % (15-34) Test 09/30/18 04:10 09/30/18 04:11 09/30/18 07:24 09/30/18 15:16 Sodium Level 138 mmol/L (136-145) Potassium Level 4.1 mmol/L (3.5-5.1) Chloride Level 99 mmol/L (98-107) Carbon Dioxide Level 25 mmol/L (21-32) Anion Gap 14 (6-14) Blood Urea Nitrogen 47 mg/dL (8-26) Creatinine 5.9 mg/dL (0.7-1.3) Estimated GFR (Cockcroft-Gault) 9.2 Glucose Level 278 mg/dL (70-99) Calcium Level 8.9 mg/dL (8.5-10.1) White Blood Count 3.3 x10^3/uL (4.0-11.0) Red Blood Count 2.65 x10^6/uL (4.30-5.70) Hemoglobin 9.9 g/dL (13.0-17.5) Hematocrit 29.3 % (39.0-53.0) Mean Corpuscular Volume 110 fL (79-100) Mean Corpuscular Hemoglobin 37 pg (25-35) Mean Corpuscular Hemoglobin Concent 34 g/dL (31-37) Red Cell Distribution Width 15.7 % (11.5-14.5) Platelet Count 57 x10^3/uL (140-400) Neutrophils (%) (Auto) 64 % (31-73) Lymphocytes (%) (Auto) 20 % (24-48) Monocytes (%) (Auto) 12 % (0-9) Eosinophils (%) (Auto) 2 % (0-3) Basophils (%) (Auto) 1 % (0-3) Neutrophils # (Auto) 2.1 x10^3uL (1.8-7.7) Lymphocytes # (Auto) 0.7 x10^3/uL (1.0-4.8) Monocytes # (Auto) 0.4 x10^3/uL (0.0-1.1) Eosinophils # (Auto) 0.1 x10^3/uL (0.0-0.7) Basophils # (Auto) 0.0 x10^3/uL (0.0-0.2) Glucose (Fingerstick) 195 mg/dL (70-99) 140 mg/dL (70-99) Test 09/30/18 16:45 09/30/18 20:28 10/01/18 04:40 10/01/18 07:07 Glucose (Fingerstick) 214 mg/dL (70-99) 286 mg/dL (70-99) 192 mg/dL (70-99) White Blood Count 3.5 x10^3/uL (4.0-11.0) Red Blood Count 2.55 x10^6/uL (4.30-5.70) Hemoglobin 9.4 g/dL (13.0-17.5) Hematocrit 27.8 % (39.0-53.0) Mean Corpuscular Volume 109 fL (79-100) Mean Corpuscular Hemoglobin 37 pg (25-35) Mean Corpuscular Hemoglobin Concent 34 g/dL (31-37) Red Cell Distribution Width 15.6 % (11.5-14.5) Platelet Count 73 x10^3/uL (140-400) Neutrophils (%) (Auto) 66 % (31-73) Lymphocytes (%) (Auto) 18 % (24-48) Monocytes (%) (Auto) 13 % (0-9) Eosinophils (%) (Auto) 2 % (0-3) Basophils (%) (Auto) 1 % (0-3) Neutrophils # (Auto) 2.3 x10^3uL (1.8-7.7) Lymphocytes # (Auto) 0.6 x10^3/uL (1.0-4.8) Monocytes # (Auto) 0.4 x10^3/uL (0.0-1.1) Eosinophils # (Auto) 0.1 x10^3/uL (0.0-0.7) Basophils # (Auto) 0.0 x10^3/uL (0.0-0.2) Sodium Level 137 mmol/L (136-145) Potassium Level 4.4 mmol/L (3.5-5.1) Chloride Level 97 mmol/L (98-107) Carbon Dioxide Level 28 mmol/L (21-32) Anion Gap 12 (6-14) Blood Urea Nitrogen 27 mg/dL (8-26) Creatinine 4.3 mg/dL (0.7-1.3) Estimated GFR (Cockcroft-Gault) 13.3 Glucose Level 198 mg/dL (70-99) Calcium Level 9.1 mg/dL (8.5-10.1) Laboratory Tests Test 09/30/18 15:16 09/30/18 16:45 09/30/18 20:28 10/01/18 04:40 Glucose (Fingerstick) 140 mg/dL (70-99) 214 mg/dL (70-99) 286 mg/dL (70-99) White Blood Count 3.5 x10^3/uL (4.0-11.0) Red Blood Count 2.55 x10^6/uL (4.30-5.70) Hemoglobin 9.4 g/dL (13.0-17.5) Hematocrit 27.8 % (39.0-53.0) Mean Corpuscular Volume 109 fL (79-100) Mean Corpuscular Hemoglobin 37 pg (25-35) Mean Corpuscular Hemoglobin Concent 34 g/dL (31-37) Red Cell Distribution Width 15.6 % (11.5-14.5) Platelet Count 73 x10^3/uL (140-400) Neutrophils (%) (Auto) 66 % (31-73) Lymphocytes (%) (Auto) 18 % (24-48) Monocytes (%) (Auto) 13 % (0-9) Eosinophils (%) (Auto) 2 % (0-3) Basophils (%) (Auto) 1 % (0-3) Neutrophils # (Auto) 2.3 x10^3uL (1.8-7.7) Lymphocytes # (Auto) 0.6 x10^3/uL (1.0-4.8) Monocytes # (Auto) 0.4 x10^3/uL (0.0-1.1) Eosinophils # (Auto) 0.1 x10^3/uL (0.0-0.7) Basophils # (Auto) 0.0 x10^3/uL (0.0-0.2) Sodium Level 137 mmol/L (136-145) Potassium Level 4.4 mmol/L (3.5-5.1) Chloride Level 97 mmol/L (98-107) Carbon Dioxide Level 28 mmol/L (21-32) Anion Gap 12 (6-14) Blood Urea Nitrogen 27 mg/dL (8-26) Creatinine 4.3 mg/dL (0.7-1.3) Estimated GFR (Cockcroft-Gault) 13.3 Glucose Level 198 mg/dL (70-99) Calcium Level 9.1 mg/dL (8.5-10.1) Test 10/01/18 07:07 Glucose (Fingerstick) 192 mg/dL (70-99) Microbiology 09/25/18 Blood Culture - Final, Complete NO GROWTH AFTER 5 DAYS Medications Current Medications Naloxone HCl (Narcan) 0.2 mg 1X ONCE IV Last administered on 09/25/18at 08:47 ; Start 09/25/18 at 08:45; Stop 09/25/18 at 08:46; Status DC Sodium Chloride 500 ml @ 500 mls/hr 1X ONCE IV Last administered on at 08:49; Start 09/25/18 at 08:45; Stop 09/25/18 at 09:44; Status DC Vancomycin HCl (Vanco Per Pharmacy) 1 each PRN DAILY PRN MC SEE COMMENTS Last administered on 09/28/18at 13:20; Start 09/25/18 at 09:30; Stop 09/29/18 at 15: 07; Status DC Piperacillin Sod/ Tazobactam Sod (Zosyn Per Pharmacy) 1 each PRN DAILY PRN MC SEE COMMENTS; Start 09/25/18 at 09:30 Piperacillin Sod/ Tazobactam Sod 2.25 gm/Sodium Chloride 50 ml @ 100 mls/hr 1X ONCE IV Last administered on 09/25/18at 09:48; Start 09/25/18 at 09:30; Stop 09/25/18 at 09:59; Status DC Vancomycin HCl 1.75 gm/Sodium Chloride 500 ml @ 250 mls/hr 1X ONCE IV Last administered on 09/25/18at 10:25; Start 09/25/18 at 09:45; Stop 09/25/18 at 11 :44; Status DC Sodium Chloride 500 ml @ 500 mls/hr 1X ONCE IV Last administered on at 09:48; Start 09/25/18 at 09:45; Stop 09/25/18 at 10:44; Status DC Sodium Chloride 500 ml @ 500 mls/hr 1X ONCE IV Last administered on at 11:16; Start 09/25/18 at 10:30; Stop 09/25/18 at 11:29; Status DC Norepinephrine Bitartrate 250 ml @ 0 mls/hr 1X ONCE IV Last administered on at 11:13; Start 09/25/18 at 10:30; Stop 09/25/18 at 14:39; Status DC Lidocaine HCl (Lidocaine 1% 20ml Vial) 20 ml STK-MED ONCE .ROUTE ; Start at 10:41; Stop 09/25/18 at 10:42; Status DC Vasopressin 40 unit/Dextrose 102 ml @ 6 mls/hr CONT PRN IV SEE I/O RECORD Last administered on 09/26/18at 04:12; Start 09/25/18 at 13:15; Stop 09/27/18 at 16 :31; Status DC Norepinephrine Bitartrate 250 ml @ 9.375 mls/ hr CONT PRN IV SEE I/O RECORD Last administered on 09/25/18at 19:33; Start 09/25/18 at 14:45; Stop 09/27/18 at 16:31; Status DC Piperacillin Sod/ Tazobactam Sod 2.25 gm/Sodium Chloride 50 ml @ 100 mls/hr Q8HRS IV Last administered on 10/01/18at 05:43; Start 09/25/18 at 16:00 Vancomycin HCl (Vancomycin Random Level) 1 each 1X ONCE MC Last administered on 09/26/18at 05:35; Start 09/26/18 at 06:00; Stop 09/26/18 at 06:02; Status DC Acetaminophen (Tylenol) 650 mg PRN Q6HRS PRN PO FEVER Last administered on 09/30at 05:11; Start 09/25/18 at 16:30 Ondansetron HCl (Zofran) 4 mg PRN Q6HRS PRN IV NAUSEA/VOMITING; Start at 16:30 Docusate Sodium (Colace) 100 mg PRN DAILY PRN PO CONSTIPATION; Start 09/25/18 at 16:30 Sodium Chloride 1,000 ml @ 75 mls/hr [id number] IV Last administered on at 05:51; Start 09/25/18 at 16:30; Stop 09/26/18 at 18:58; Status DC Famotidine (Pepcid Vial) 20 mg Q48H IVP Last administered on 09/29/18at 20:30; Start 09/25/18 at 21:00 Heparin Sodium (Porcine) (Heparin Sodium) 5,000 unit Q8HRS SQ Last administered on 09/30/18at 05:21; Start 09/25/18 at 22:00; Stop 09/30/18 at 15: 30; Status DC Insulin Human Lispro (HumaLOG) 0-7 UNITS TIDWMEALS SQ Last administered on 09/30at 17:45; Start 09/25/18 at 17:00 Dextrose (Dextrose 50%-Water Syringe) 12.5 gm PRN Q15MIN PRN IV SEE COMMENTS; Start 09/25/18 at 16:30 Albuterol/ Ipratropium (Duoneb) 3 ml RTQID NEB Last administered on 10/01/18at 06:50; Start 09/25/18 at 20:00 Albuterol Sulfate (Ventolin Neb Soln) 2.5 mg PRN Q2HR PRN NEB SHORTNESS OF BREATH; Start 09/25/18 at 16:30 Guaifenesin (Mucinex) 600 mg BID PO Last administered on 09/30/18at 22:02; Start 09/25/18 at 21:00 Sodium Chloride 1,000 ml @ 1,000 mls/hr Q1H PRN IV hypotension; Start at 06:43; Stop 09/26/18 at 12:42; Status DC Albumin Human 200 ml @ 200 mls/hr 1X PRN PRN IV Hypotension; Start 09/26/18 at 06:45; Stop 09/26/18 at 12:54; Status DC Sodium Chloride (Normal Saline Flush) 10 ml 1X PRN PRN IV AP 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; Start 09/26/18 at 06:45; Stop 09/27/18 at 06:44; Status DC Sodium Chloride (Normal Saline Flush) 10 ml 1X PRN PRN IV CREAM RIPENER 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; Start 09/26/18 at 06:45; Stop 09/27/18 at 06:44; Status DC Sodium Chloride 1,000 ml @ 400 mls/hr Q2H30M PRN IV PATENCY; Start 09/26/18 at 06:43; Stop 09/26/18 at 18:42; Status DC Info (PHARMACY MONITORING -- do not chart) 1 each PRN DAILY PRN MC SEE COMMENTS ; Start 09/26/18 at 06:45; Status UNV Info (PHARMACY MONITORING -- do not chart) 1 each PRN DAILY PRN MC SEE COMMENTS ; Start 09/26/18 at 06:45 Vancomycin HCl 500 mg/Sodium Chloride 100 ml @ 100 mls/hr TuThSa IV Last administered on 09/28/18at 16:13; Start 09/26/18 at 16:00; Stop 09/29/18 at 15: 07; Status DC Lactobacillus Rhamnosus (Culturelle) 1 cap BID PO Last administered on at 22:02; Start 09/27/18 at 21:00 Sodium Chloride 1,000 ml @ 1,000 mls/hr Q1H PRN IV hypotension; Start 09/28/18 at 10:34; Stop 09/28/18 at 16:33; Status DC Sodium Chloride 1,000 ml @ 400 mls/hr Q2H30M PRN IV PATENCY; Start 09/28/18 at 10:34; Stop 09/28/18 at 22:33; Status DC Info (PHARMACY MONITORING -- do not chart) 1 each PRN DAILY PRN MC SEE COMMENTS ; Start 09/28/18 at 10:45; Status UNV Info (PHARMACY MONITORING -- do not chart) 1 each PRN DAILY PRN MC SEE COMMENTS ; Start 09/28/18 at 10:45; Status Cancel Albumin Human 200 ml @ 200 mls/hr 1X ONCE IV Last administered on 09/28/18at 12:26; Start 09/28/18 at 12:15; Stop 09/28/18 at 13:14; Status DC Haloperidol (Haldol) 0.5 mg 1X ONCE PO Last administered on 09/29/18at 02:51; Start 09/29/18 at 02:45; Stop 09/29/18 at 02:46; Status DC Alprazolam (Xanax) 0.25 mg PRN QHS PRN PO ANXIETY / AGITATION Last administered on 09/30/18at 22:02; Start 09/29/18 at 02:45 Oxycodone/ Acetaminophen (Percocet 5/325) 1 tab PRN Q6HRS PRN PO PAIN Last administered on 10/01/18at 04:36; Start 09/29/18 at 02:45 Sodium Chloride 1,000 ml @ 1,000 mls/hr Q1HR PRN IV hypotension Last administered on 09/29/18at 08:35; Start 09/29/18 at 08:15 Risperidone (RisperDAL) 0.5 mg 1X ONCE PO Last administered on 09/30/18at 00:22 ; Start 09/30/18 at 00:15; Stop 09/30/18 at 00:16; Status DC Sodium Chloride 1,000 ml @ 1,000 mls/hr Q1H PRN IV hypotension; Start 09/30/18 at 10:31; Stop 09/30/18 at 16:30; Status DC Sodium Chloride 1,000 ml @ 400 mls/hr Q2H30M PRN IV PATENCY; Start 09/30/18 at 10:31; Stop 09/30/18 at 22:30; Status DC Info (PHARMACY MONITORING -- do not chart) 1 each PRN DAILY PRN MC SEE COMMENTS ; Start 09/30/18 at 10:45; Stop 09/30/18 at 10:45; Status DC Info (PHARMACY MONITORING -- do not chart) 1 each PRN DAILY PRN MC SEE COMMENTS ; Start 09/30/18 at 10:45; Stop 09/30/18 at 10:45; Status DC Active Scripts Active Humalog (Insulin Lispro) 100 Unit/1 Ml Insuln.pen 10 Units SQ TIDWMEALS 30 Days Haloperidol 2 Mg Tablet 0.5 Tab PO Q12HR Lantus Solostar (Insulin Glargine,Hum.rec.anlog) 100 Unit/1 Ml Insuln.pen 24 Unit SQ QHS 30 Days Alprazolam 0.5 Mg Tablet 1 Tab PO HS PRN Reported Tamsulosin Hcl 0.4 Mg Cap.er.24h 0.8 Mg PO DAILY Spironolactone 25 Mg Tablet 1 Tab PO DAILY Senokot (Sennosides) 8.6 Mg Tablet 1 Tab PO BID Requip (Ropinirole Hcl) 1 Mg Tablet 1 Tab PO QHS Lyrica (Pregabalin) 75 Mg Capsule 1 Cap PO BID Super Enzyme Caps (Pancreat/Bet Hcl/Pep/Brom/Pap) 1 Each Capsule 4 Cap PO QID Magnesium Oxide 400 Mg Tablet 1 Tab PO DAILY Gemfibrozil 600 Mg Tablet 1 Tab PO BIDWMEALS Folic Acid 1 Mg Tablet 1 Tab PO DAILY Fish Oil 1,000 Mg Capsule ([place]-3 Fatty Acids/Fish Oil) 1 Each Capsule 2,000 Each PO BID Cyclobenzaprine Hcl 10 Mg Tablet 1 Tab PO BID Irina Elias 6,000 Units Capsule (Lipase/Protease/Amylase) 1 Each Capsule. 1 Each PO QID Vitamin D3 (Cholecalciferol (Vitamin D3)) 1,000 Unit Tablet 3 Tab PO DAILY Aspirin Ec (Aspirin) 81 Mg Tablet.dr 1 Tab PO DAILY Acetaminophen 500 Mg Tablet 1,000 Mg PO PRN DAILY PRN Midodrine Hcl 5 Mg Tablet 5 Mg PO 3X/WEEK Hydroxyzine Hcl 25 Mg Tablet 25 Mg PO QID Calcium Acetate 667 Mg Tablet 2 Cap PO BIDAC Prevalite Packet (Cholestyramine/Aspartame) 4 Gm Powd.pack 4 Gm PO BID Toprol Xl (Metoprolol Succinate) 25 Mg Tab.er.24h 1 Tab PO DAILY Furosemide 40 Mg Tablet 2 Tab PO DAILY Diltiazem 24HR Cd (Diltiazem Hcl) 120 Mg Cap.er.24h 1 Cap PO DAILY Percocet 5-325 Mg Tablet (Oxycodone/Acetaminophen) 1 Each Tablet 1 Tab PO QID Humalog (Insulin Lispro) 100 Unit/1 Ml Cartridge 8 Unit SQ TIDAC Prilosec Otc (Omeprazole Magnesium) 20 Mg Tablet. 20 Mg PO DAILY Vitals/I & O Vital Sign - Last 24 Hours 09/30/18 09/30/18 09/30/18 09/30/18 11:00 12:28 15:00 15:30 Temp 97.2 97.7 97.2 97.7 Pulse 57 75 Resp 18 18 B/P (MAP) 117/57 (77) 106/47 (66) Pulse Ox 95 97 O2 Delivery Nasal Cannula Nasal Cannula Nasal Cannula Nasal Cannula O2 Flow Rate 4.0 2.5 3.0 3.0 09/30/18 09/30/18 09/30/18 09/30/18 16:41 19:25 19:45 20:00 Temp 97.7 97.7 Pulse 118 Resp 20 B/P (MAP) 108/53 (71) Pulse Ox 97 100 O2 Delivery Nasal Cannula Nasal Cannula Nasal Cannula Nasal Cannula O2 Flow Rate 2.5 2.5 3.0 3.0 09/30/18 10/01/18 10/01/18 10/01/18 23:41 03:34 04:36 05:36 Temp 97.3 97.3 97.3 97.3 Pulse 112 59 Resp 20 18 B/P (MAP) 115/49 (71) 105/51 (69) Pulse Ox 100 100 O2 Delivery Nasal Cannula Nasal Cannula Nasal Cannula Nasal Cannula O2 Flow Rate 3.0 3.0 3.0 10/01/18 10/01/18 06:51 07:00 Temp 97.7 97.7 Pulse 108 Resp 20 B/P (MAP) 104/56 (72) Pulse Ox 100 100 O2 Delivery Nasal Cannula Nasal Cannula O2 Flow Rate 2.5 3.0 Intake and Output 09/30/18 09/30/18 10/01/18 15:00 23:00 07:00 Intake Total 120 ml 730 ml Output Total 0 ml Balance 120 ml 730 ml JENNIFER EPPERSON MD Oct 01, 2018 09:20
[2018-10-01] MEDS: LACTOBACILLUS RHAMNOSUS GG 1 CAPSULE. PO SCH ×2 (09:22→20:13)
[2018-10-01] MEDS: INSULIN LISPRO 300 UNITS/3 ML INSULN.PEN. SQ SCH ×3 (09:30→17:27)
--- NOTE | 2018-10-01 10:23 | PDOC ---
Infectious Disease Note Subjective Subjective "I want to go home" Feels good Appetite good No fevers Denies N/V/D/SOA ROS ROS per HPI otherwise neg Vital Sign Vital Signs Vital Signs Date Time Temp Pulse Resp B/P (MAP) Pulse Ox O2 Delivery O2 Flow Rate FiO2 10/01/18 07:00 97.7 108 20 104/56 (72) 100 Nasal Cannula 3.0 97.7 Physical Exam PHYSICAL EXAM GENERAL: Sitting in the chair, alert, conversant HEENT: Normal conjunctivae. Oral cavity clear, Dentures NECK: Supple. LUNGS: Decreased aeration, nonlabored HEART: S1, S2 ABDOMEN: Obese, BS active, soft, nontender EXTREMITIES: Trace edema BLE, LUE-AV fistula site looks unremarkable. SKIN: Warm, dry. No generalized rash. 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 LIJ without signs of complications Labs Lab Laboratory Tests Test 09/30/18 15:16 09/30/18 16:45 09/30/18 20:28 10/01/18 04:40 Glucose (Fingerstick) 140 mg/dL (70-99) 214 mg/dL (70-99) 286 mg/dL (70-99) White Blood Count 3.5 x10^3/uL (4.0-11.0) Red Blood Count 2.55 x10^6/uL (4.30-5.70) Hemoglobin 9.4 g/dL (13.0-17.5) Hematocrit 27.8 % (39.0-53.0) Mean Corpuscular Volume 109 fL (79-100) Mean Corpuscular Hemoglobin 37 pg (25-35) Mean Corpuscular Hemoglobin Concent 34 g/dL (31-37) Red Cell Distribution Width 15.6 % (11.5-14.5) Platelet Count 73 x10^3/uL (140-400) Neutrophils (%) (Auto) 66 % (31-73) Lymphocytes (%) (Auto) 18 % (24-48) Monocytes (%) (Auto) 13 % (0-9) Eosinophils (%) (Auto) 2 % (0-3) Basophils (%) (Auto) 1 % (0-3) Neutrophils # (Auto) 2.3 x10^3uL (1.8-7.7) Lymphocytes # (Auto) 0.6 x10^3/uL (1.0-4.8) Monocytes # (Auto) 0.4 x10^3/uL (0.0-1.1) Eosinophils # (Auto) 0.1 x10^3/uL (0.0-0.7) Basophils # (Auto) 0.0 x10^3/uL (0.0-0.2) Sodium Level 137 mmol/L (136-145) Potassium Level 4.4 mmol/L (3.5-5.1) Chloride Level 97 mmol/L (98-107) Carbon Dioxide Level 28 mmol/L (21-32) Anion Gap 12 (6-14) Blood Urea Nitrogen 27 mg/dL (8-26) Creatinine 4.3 mg/dL (0.7-1.3) Estimated GFR (Cockcroft-Gault) 13.3 Glucose Level 198 mg/dL (70-99) Calcium Level 9.1 mg/dL (8.5-10.1) Test 10/01/18 07:07 Glucose (Fingerstick) 192 mg/dL (70-99) Micro 09/25/18 Blood Culture - Preliminary, Resulted NO GROWTH AFTER 5 DAYS Objective Assessment Pancytopenia - slowly improving Sepsis with hypotension requiring vasopressor support. now off Suspected pneumonia. Acute respiratory failure, now on O2,off bipap Coronary artery disease with coronary artery bypass grafting. Status post pacemaker. End-stage renal disease, on hemodialysis via AV fistula. Diabetes. History of multiple hospitalizations this year, requiring antibiotic support. History of [place] healthcare-associated pneumonia, 07/2018, treated. History of benign prostatic hypertrophy with urinary retention. Legally blind. History of mild dysphagia with aspiration of thin liquids per past video swallow study. Sulfa allergy. Small LLL effusion Plan Plan of Care Cont Zosyn (09/25) ? med causing count drop now improving. Vanc was stopped - states Dr. Ruiz to do a bone marrow as he has a h/o malignancy 10/02 neg Supportive care Recommend removing LIJ if not needed D/w Attending Co-Sign Attending Co-Sign The patient was seen and interviewed as well as examined at the bedside. The chart was reviewed. The case was discussed. Agree with the plan of care. YU LUO APRN Oct 01, 2018 10:23 JOSE FELIX MD Oct 01, 2018 14:14
--- NOTE | 2018-10-01 10:34 | PDOC ---
Renal-Progress Notes Subjective Notes Notes NO NEW COMPLAINTS History of Present Illness Hx of present illness STABLE Vitals Vitals Vital Signs Date Time Temp Pulse Resp B/P (MAP) Pulse Ox O2 Delivery O2 Flow Rate FiO2 10/01/18 10:23 Nasal Cannula 2.0 10/01/18 07:00 97.7 108 20 104/56 (72) 100 97.7 Weight Weight [ ] I.O. Intake and Output Intake and Output 10/01/18 07:00 Intake Total 850 ml Output Total 0 ml Balance 850 ml Intake Oral 850 ml Output Urine Total 0 ml # Voids 1 # Bowel Movements 1 Labs Labs Laboratory Tests Test 09/30/18 15:16 09/30/18 16:45 09/30/18 20:28 10/01/18 04:40 Glucose (Fingerstick) 140 mg/dL (70-99) 214 mg/dL (70-99) 286 mg/dL (70-99) White Blood Count 3.5 x10^3/uL (4.0-11.0) Red Blood Count 2.55 x10^6/uL (4.30-5.70) Hemoglobin 9.4 g/dL (13.0-17.5) Hematocrit 27.8 % (39.0-53.0) Mean Corpuscular Volume 109 fL (79-100) Mean Corpuscular Hemoglobin 37 pg (25-35) Mean Corpuscular Hemoglobin Concent 34 g/dL (31-37) Red Cell Distribution Width 15.6 % (11.5-14.5) Platelet Count 73 x10^3/uL (140-400) Neutrophils (%) (Auto) 66 % (31-73) Lymphocytes (%) (Auto) 18 % (24-48) Monocytes (%) (Auto) 13 % (0-9) Eosinophils (%) (Auto) 2 % (0-3) Basophils (%) (Auto) 1 % (0-3) Neutrophils # (Auto) 2.3 x10^3uL (1.8-7.7) Lymphocytes # (Auto) 0.6 x10^3/uL (1.0-4.8) Monocytes # (Auto) 0.4 x10^3/uL (0.0-1.1) Eosinophils # (Auto) 0.1 x10^3/uL (0.0-0.7) Basophils # (Auto) 0.0 x10^3/uL (0.0-0.2) Sodium Level 137 mmol/L (136-145) Potassium Level 4.4 mmol/L (3.5-5.1) Chloride Level 97 mmol/L (98-107) Carbon Dioxide Level 28 mmol/L (21-32) Anion Gap 12 (6-14) Blood Urea Nitrogen 27 mg/dL (8-26) Creatinine 4.3 mg/dL (0.7-1.3) Estimated GFR (Cockcroft-Gault) 13.3 Glucose Level 198 mg/dL (70-99) Calcium Level 9.1 mg/dL (8.5-10.1) Test 10/01/18 07:07 Glucose (Fingerstick) 192 mg/dL (70-99) Micro Micro Microbiology 09/25/18 Blood Culture - Final, Complete NO GROWTH AFTER 5 DAYS Review of Systems Constitutional: yes: weakness, alert Ears/Nose/Throat: Yes: no symptom reported Eyes: Yes: no symptom reported Pulmonary: Yes no symptom reported Cardiovascular: Yes no symptom reported Gastrointestional: Yes: no symptom reported Genitourinary: Yes: no symptom reported Musculoskeletal: Yes: no symptom reported Skin: Yes no symptom reported Psychiatric/Neurological: Yes: no symptom reported Physical Exam General Appearance: no apparent distress Skin: warm Respiratory: decreased breath sounds Heart: S1S2 Abdomen: soft, bowel sounds present Genitourinary: bladder flat Extremities: pulses present Neurology: alert Musculoskeletal: Osteoarthritis Assessment Assessment IMP ESRD DM II HTN ANEMIA SEPSIS ? LLL PNA PLAN ANTIBIOTICS HD TUESDAY WILL FOLLOW ARACELI CANSECO MD Oct 01, 2018 10:34
[2018-10-01 11:00] VITALS: BP 107/39
--- NOTE | 2018-10-01 13:42 | PDOC ---
PULMONARY PROGRESS NOTES Subjective no soa, some cough Vitals Vital Signs Date Time Temp Pulse Resp B/P (MAP) Pulse Ox O2 Delivery O2 Flow Rate FiO2 10/01/18 11:00 97.7 96 18 107/39 (61) 100 Nasal Cannula 3.0 97.7 General: Alert, No acute distress HEENT: Other Lungs: Clear Cardiovascular: S1 Abdomen: Soft Neuro Exam: Alert Extremities: Other (trace edema) Skin: Warm Labs Laboratory Tests Test 09/29/18 15:55 09/29/18 17:15 09/30/18 01:23 09/30/18 04:10 Iron Level 124 ug/dL (65-175) Total Iron Binding Capacity 221 ug/dL (250-450) Iron Saturation 56 % (15-34) Glucose (Fingerstick) 246 mg/dL (70-99) 232 mg/dL (70-99) Sodium Level 138 mmol/L (136-145) Potassium Level 4.1 mmol/L (3.5-5.1) Chloride Level 99 mmol/L (98-107) Carbon Dioxide Level 25 mmol/L (21-32) Anion Gap 14 (6-14) Blood Urea Nitrogen 47 mg/dL (8-26) Creatinine 5.9 mg/dL (0.7-1.3) Estimated GFR (Cockcroft-Gault) 9.2 Glucose Level 278 mg/dL (70-99) Calcium Level 8.9 mg/dL (8.5-10.1) Test 09/30/18 04:11 09/30/18 07:24 09/30/18 15:16 09/30/18 16:45 White Blood Count 3.3 x10^3/uL (4.0-11.0) Red Blood Count 2.65 x10^6/uL (4.30-5.70) Hemoglobin 9.9 g/dL (13.0-17.5) Hematocrit 29.3 % (39.0-53.0) Mean Corpuscular Volume 110 fL (79-100) Mean Corpuscular Hemoglobin 37 pg (25-35) Mean Corpuscular Hemoglobin Concent 34 g/dL (31-37) Red Cell Distribution Width 15.7 % (11.5-14.5) Platelet Count 57 x10^3/uL (140-400) Neutrophils (%) (Auto) 64 % (31-73) Lymphocytes (%) (Auto) 20 % (24-48) Monocytes (%) (Auto) 12 % (0-9) Eosinophils (%) (Auto) 2 % (0-3) Basophils (%) (Auto) 1 % (0-3) Neutrophils # (Auto) 2.1 x10^3uL (1.8-7.7) Lymphocytes # (Auto) 0.7 x10^3/uL (1.0-4.8) Monocytes # (Auto) 0.4 x10^3/uL (0.0-1.1) Eosinophils # (Auto) 0.1 x10^3/uL (0.0-0.7) Basophils # (Auto) 0.0 x10^3/uL (0.0-0.2) Glucose (Fingerstick) 195 mg/dL (70-99) 140 mg/dL (70-99) 214 mg/dL (70-99) Test 09/30/18 20:28 10/01/18 04:40 10/01/18 07:07 10/01/18 10:37 Glucose (Fingerstick) 286 mg/dL (70-99) 192 mg/dL (70-99) 321 mg/dL (70-99) White Blood Count 3.5 x10^3/uL (4.0-11.0) Red Blood Count 2.55 x10^6/uL (4.30-5.70) Hemoglobin 9.4 g/dL (13.0-17.5) Hematocrit 27.8 % (39.0-53.0) Mean Corpuscular Volume 109 fL (79-100) Mean Corpuscular Hemoglobin 37 pg (25-35) Mean Corpuscular Hemoglobin Concent 34 g/dL (31-37) Red Cell Distribution Width 15.6 % (11.5-14.5) Platelet Count 73 x10^3/uL (140-400) Neutrophils (%) (Auto) 66 % (31-73) Lymphocytes (%) (Auto) 18 % (24-48) Monocytes (%) (Auto) 13 % (0-9) Eosinophils (%) (Auto) 2 % (0-3) Basophils (%) (Auto) 1 % (0-3) Neutrophils # (Auto) 2.3 x10^3uL (1.8-7.7) Lymphocytes # (Auto) 0.6 x10^3/uL (1.0-4.8) Monocytes # (Auto) 0.4 x10^3/uL (0.0-1.1) Eosinophils # (Auto) 0.1 x10^3/uL (0.0-0.7) Basophils # (Auto) 0.0 x10^3/uL (0.0-0.2) Sodium Level 137 mmol/L (136-145) Potassium Level 4.4 mmol/L (3.5-5.1) Chloride Level 97 mmol/L (98-107) Carbon Dioxide Level 28 mmol/L (21-32) Anion Gap 12 (6-14) Blood Urea Nitrogen 27 mg/dL (8-26) Creatinine 4.3 mg/dL (0.7-1.3) Estimated GFR (Cockcroft-Gault) 13.3 Glucose Level 198 mg/dL (70-99) Calcium Level 9.1 mg/dL (8.5-10.1) Laboratory Tests Test 09/30/18 15:16 09/30/18 16:45 09/30/18 20:28 10/01/18 04:40 Glucose (Fingerstick) 140 mg/dL (70-99) 214 mg/dL (70-99) 286 mg/dL (70-99) White Blood Count 3.5 x10^3/uL (4.0-11.0) Red Blood Count 2.55 x10^6/uL (4.30-5.70) Hemoglobin 9.4 g/dL (13.0-17.5) Hematocrit 27.8 % (39.0-53.0) Mean Corpuscular Volume 109 fL (79-100) Mean Corpuscular Hemoglobin 37 pg (25-35) Mean Corpuscular Hemoglobin Concent 34 g/dL (31-37) Red Cell Distribution Width 15.6 % (11.5-14.5) Platelet Count 73 x10^3/uL (140-400) Neutrophils (%) (Auto) 66 % (31-73) Lymphocytes (%) (Auto) 18 % (24-48) Monocytes (%) (Auto) 13 % (0-9) Eosinophils (%) (Auto) 2 % (0-3) Basophils (%) (Auto) 1 % (0-3) Neutrophils # (Auto) 2.3 x10^3uL (1.8-7.7) Lymphocytes # (Auto) 0.6 x10^3/uL (1.0-4.8) Monocytes # (Auto) 0.4 x10^3/uL (0.0-1.1) Eosinophils # (Auto) 0.1 x10^3/uL (0.0-0.7) Basophils # (Auto) 0.0 x10^3/uL (0.0-0.2) Sodium Level 137 mmol/L (136-145) Potassium Level 4.4 mmol/L (3.5-5.1) Chloride Level 97 mmol/L (98-107) Carbon Dioxide Level 28 mmol/L (21-32) Anion Gap 12 (6-14) Blood Urea Nitrogen 27 mg/dL (8-26) Creatinine 4.3 mg/dL (0.7-1.3) Estimated GFR (Cockcroft-Gault) 13.3 Glucose Level 198 mg/dL (70-99) Calcium Level 9.1 mg/dL (8.5-10.1) Test 10/01/18 07:07 10/01/18 10:37 Glucose (Fingerstick) 192 mg/dL (70-99) 321 mg/dL (70-99) Medications Active Scripts Medications Dose Route/Sig Max Daily Dose Days Date Category Humalog (Insulin Lispro) 100 Unit/1 Ml Insuln.pen 10 Units SQ TIDWMEALS 30 08/14/18 Rx Haloperidol 2 Mg Tablet 0.5 Tab PO Q12HR 08/14/18 Rx Lantus Solostar (Insulin Glargine,Hum.rec.anlog) 100 Unit/1 Ml Insuln.pen 24 Unit SQ QHS 30 08/14/18 Rx Alprazolam 0.5 Mg Tablet 1 Tab PO HS PRN 08/14/18 Rx Tamsulosin Hcl 0.4 Mg Cap.er.24h 0.8 Mg PO DAILY 08/11/18 Reported Spironolactone 25 Mg Tablet 1 Tab PO DAILY 08/11/18 Reported Senokot (Sennosides) 8.6 Mg Tablet 1 Tab PO BID 08/11/18 Reported Requip (Ropinirole Hcl) 1 Mg Tablet 1 Tab PO QHS 08/11/18 Reported Lyrica (Pregabalin) 75 Mg Capsule 1 Cap PO BID 08/11/18 Reported Super Enzyme Caps (Pancreat/Bet Hcl/Pep/Brom/Pap) 1 Each Capsule 4 Cap PO QID 08/11/18 Reported Magnesium Oxide 400 Mg Tablet 1 Tab PO DAILY 08/11/18 Reported Gemfibrozil 600 Mg Tablet 1 Tab PO BIDWMEALS 08/11/18 Reported Folic Acid 1 Mg Tablet 1 Tab PO DAILY 08/11/18 Reported Fish Oil 1,000 Mg Capsule ([place]-3 Fatty Acids/Fish Oil) 1 Each Capsule 2,000 Each PO BID 08/11/18 Reported Cyclobenzaprine Hcl 10 Mg Tablet 1 Tab PO BID 08/11/18 Reported Irina Elias 6,000 Units Capsule (Lipase/Protease/Amylase) 1 Each Capsule. 1 Each PO QID 08/11/18 Reported Vitamin D3 (Cholecalciferol (Vitamin D3)) 1,000 Unit Tablet 3 Tab PO DAILY 08/11/18 Reported Aspirin Ec (Aspirin) 81 Mg Tablet. 1 Tab PO DAILY 08/11/18 Reported Acetaminophen 500 Mg Tablet 1,000 Mg PO PRN DAILY PRN 08/11/18 Reported Midodrine Hcl 5 Mg Tablet 5 Mg PO 3X/WEEK 06/06/18 Reported Hydroxyzine Hcl 25 Mg Tablet 25 Mg PO QID 06/06/18 Reported Calcium Acetate 667 Mg Tablet 2 Cap PO BIDAC 06/06/18 Reported Prevalite Packet (Cholestyramine/Aspartame) 4 Gm Powd.pack 4 Gm PO BID 06/06/18 Reported Toprol Xl (Metoprolol Succinate) 25 Mg Tab.er.24h 1 Tab PO DAILY 06/06/18 Reported Furosemide 40 Mg Tablet 2 Tab PO DAILY 06/06/18 Reported Diltiazem 24HR Cd (Diltiazem Hcl) 120 Mg Cap.er.24h 1 Cap PO DAILY 06/06/18 Reported Percocet 5-325 Mg Tablet (Oxycodone/Acetaminophen) 1 Each Tablet 1 Tab PO QID 06/06/17 Reported Humalog (Insulin Lispro) 100 Unit/1 Ml Cartridge 8 Unit SQ TIDAC 06/06/17 Reported Prilosec Otc (Omeprazole Magnesium) 20 Mg Tablet. 20 Mg PO DAILY 11/20/14 Reported Impression . 1. Acute respiratory failure. 2. Sepsis/ septic shock. secondary to pneumonia. resolved 3. Coronary artery disease with previous coronary artery bypass grafting. 4. Acute metabolic toxic encephalopathy, present upon admission. 5. Protein malnutrition present upon admission. 6. Status post pacemaker. 7. Peripheral vascular disease. 8. Abnormal cxr with LLL infiltrate/ effusion 9. thrombocytopenia/ leukopenia Plan . 1. nasal canula 2. antibiotics per ID 3. oral nutrition 4. ct chest reviewed. Small-moderate LLL effusion/ atelectasis. Monitor for now 6. HD 7. BM aspiration in am DNR/DNI d/w MAZIN Miles MD Oct 01, 2018 13:42
[2018-10-01 15:00] VITALS: BP 114/30
[2018-10-01 19:52] VITALS: BP 150/74
[2018-10-01] MEDS: ALPRAZolam 0.25 MG TABLET PO PRN (20:14)
[2018-10-01] MEDS ORDERED: FAMOTIDINE 20 MG TABLET. PO SCH (21:00)
[2018-10-01 23:05] VITALS: BP 112/86
[2018-10-02] VITALS (10 sets, daily range): BP systolic 119–154; BP diastolic 55–98
[2018-10-02] MEDS: PIPERACILLIN/TAZOBACTAM 2.25 GM in IV NORMAL SALINE 50ML 50 ML IV SCH (05:27)
[2018-10-02 05:56] LABS: BASO % 1 % (0-3); EOS # 0.1 x10^3/uL (0.0-0.7); EOS % 3 % (0-3); HEMATOCRIT 26.8 % (39.0-53.0); HEMOGLOBIN 9.1 g/dL (13.0-17.5); LYMPH # 0.8 x10^3/uL (1.0-4.8); LYMPH % 22 % (24-48); MEAN CORPUSCULAR HEMOGLOBIN 37 pg (25-35); MEAN CORPUSCULAR HGB CONC 34 g/dL (31-37); MEAN CORPUSCULAR VOLUME 110 fL (79-100); MONO # 0.5 x10^3/uL (0.0-1.1); MONO % 14 % (0-9); NEUT # 2.2 x10^3uL (1.8-7.7); NEUT % 61 % (31-73); PLATELET COUNT 84 x10^3/uL (140-400); RED BLOOD COUNT 2.43 x10^6/uL (4.30-5.70); RED CELL DISTRIBUTION WIDTH 15.8 % (11.5-14.5); WHITE BLOOD COUNT 3.6 x10^3/uL (4.0-11.0)
[2018-10-02 06:46] LABS: CALCIUM 8.7 mg/dL (8.5-10.1); CREATININE 5.4 mg/dL (0.7-1.3); GFR 10.2
[2018-10-02] MEDS: IPRATRPIUM/ALBUTEROL 0.5/2.5MG 3 ML NEBU. NEB SCH ×4 (07:11→18:24)
[2018-10-02] MEDS: INSULIN LISPRO 300 UNITS/3 ML INSULN.PEN. SQ SCH ×3 (08:00→17:33)
[2018-10-02] MEDS ORDERED: LIDOCAINE WITH 8.4% SOD BICARB 3 ML DISP.SYRIN. ONE (08:36)
[2018-10-02] MEDS ORDERED: fentaNYL PF VIAL 100 MCG/2 ML VIAL ONE (08:37)
[2018-10-02] MEDS ORDERED: MIDAZOLAM HCL/PF 2 MG/2 ML VIAL. ONE (08:37)
[2018-10-02] MEDS: LACTOBACILLUS RHAMNOSUS GG 1 CAPSULE. PO SCH ×2 (09:00→20:18)
[2018-10-02] MEDS ORDERED: LIDOCAINE WITH 8.4% SOD BICARB 3 ML DISP.SYRIN. IJ ONE (09:15)
[2018-10-02] MEDS ORDERED: MIDAZOLAM HCL/PF 2 MG/2 ML VIAL. IV ONE (09:15)
[2018-10-02] MEDS ORDERED: fentaNYL PF VIAL 100 MCG/2 ML VIAL IV ONE (09:15)
--- NOTE | 2018-10-02 10:02 | PDOC ---
PULMONARY PROGRESS NOTES Subjective PT WITH NO INCREASE SOA Vitals Vital Signs Date Time Temp Pulse Resp B/P (MAP) Pulse Ox O2 Delivery O2 Flow Rate FiO2 10/02/18 09:13 112 18 98 Nasal Cannula 3.0 10/02/18 07:00 97.8 119/59 (79) 97.8 General: Alert, No acute distress HEENT: Other Lungs: Clear Cardiovascular: S1 Abdomen: Soft Neuro Exam: Alert Extremities: Other (trace edema) Skin: Warm Labs Laboratory Tests Test 09/30/18 15:16 09/30/18 16:45 09/30/18 20:28 10/01/18 04:40 Glucose (Fingerstick) 140 mg/dL (70-99) 214 mg/dL (70-99) 286 mg/dL (70-99) White Blood Count 3.5 x10^3/uL (4.0-11.0) Red Blood Count 2.55 x10^6/uL (4.30-5.70) Hemoglobin 9.4 g/dL (13.0-17.5) Hematocrit 27.8 % (39.0-53.0) Mean Corpuscular Volume 109 fL (79-100) Mean Corpuscular Hemoglobin 37 pg (25-35) Mean Corpuscular Hemoglobin Concent 34 g/dL (31-37) Red Cell Distribution Width 15.6 % (11.5-14.5) Platelet Count 73 x10^3/uL (140-400) Neutrophils (%) (Auto) 66 % (31-73) Lymphocytes (%) (Auto) 18 % (24-48) Monocytes (%) (Auto) 13 % (0-9) Eosinophils (%) (Auto) 2 % (0-3) Basophils (%) (Auto) 1 % (0-3) Neutrophils # (Auto) 2.3 x10^3uL (1.8-7.7) Lymphocytes # (Auto) 0.6 x10^3/uL (1.0-4.8) Monocytes # (Auto) 0.4 x10^3/uL (0.0-1.1) Eosinophils # (Auto) 0.1 x10^3/uL (0.0-0.7) Basophils # (Auto) 0.0 x10^3/uL (0.0-0.2) Sodium Level 137 mmol/L (136-145) Potassium Level 4.4 mmol/L (3.5-5.1) Chloride Level 97 mmol/L (98-107) Carbon Dioxide Level 28 mmol/L (21-32) Anion Gap 12 (6-14) Blood Urea Nitrogen 27 mg/dL (8-26) Creatinine 4.3 mg/dL (0.7-1.3) Estimated GFR (Cockcroft-Gault) 13.3 Glucose Level 198 mg/dL (70-99) Calcium Level 9.1 mg/dL (8.5-10.1) Test 10/01/18 07:07 10/01/18 10:37 10/01/18 16:36 10/01/18 20:06 Glucose (Fingerstick) 192 mg/dL (70-99) 321 mg/dL (70-99) 188 mg/dL (70-99) 174 mg/dL (70-99) Test 10/02/18 05:30 10/02/18 07:01 White Blood Count 3.6 x10^3/uL (4.0-11.0) Red Blood Count 2.43 x10^6/uL (4.30-5.70) Hemoglobin 9.1 g/dL (13.0-17.5) Hematocrit 26.8 % (39.0-53.0) Mean Corpuscular Volume 110 fL (79-100) Mean Corpuscular Hemoglobin 37 pg (25-35) Mean Corpuscular Hemoglobin Concent 34 g/dL (31-37) Red Cell Distribution Width 15.8 % (11.5-14.5) Platelet Count 84 x10^3/uL (140-400) Neutrophils (%) (Auto) 61 % (31-73) Lymphocytes (%) (Auto) 22 % (24-48) Monocytes (%) (Auto) 14 % (0-9) Eosinophils (%) (Auto) 3 % (0-3) Basophils (%) (Auto) 1 % (0-3) Neutrophils # (Auto) 2.2 x10^3uL (1.8-7.7) Lymphocytes # (Auto) 0.8 x10^3/uL (1.0-4.8) Monocytes # (Auto) 0.5 x10^3/uL (0.0-1.1) Eosinophils # (Auto) 0.1 x10^3/uL (0.0-0.7) Basophils # (Auto) 0.0 x10^3/uL (0.0-0.2) Sodium Level 136 mmol/L (136-145) Potassium Level 4.0 mmol/L (3.5-5.1) Chloride Level 96 mmol/L (98-107) Carbon Dioxide Level 25 mmol/L (21-32) Anion Gap 15 (6-14) Blood Urea Nitrogen 38 mg/dL (8-26) Creatinine 5.4 mg/dL (0.7-1.3) Estimated GFR (Cockcroft-Gault) 10.2 Glucose Level 195 mg/dL (70-99) Calcium Level 8.7 mg/dL (8.5-10.1) Glucose (Fingerstick) 208 mg/dL (70-99) Laboratory Tests Test 10/01/18 10:37 10/01/18 16:36 10/01/18 20:06 10/02/18 05:30 Glucose (Fingerstick) 321 mg/dL (70-99) 188 mg/dL (70-99) 174 mg/dL (70-99) White Blood Count 3.6 x10^3/uL (4.0-11.0) Red Blood Count 2.43 x10^6/uL (4.30-5.70) Hemoglobin 9.1 g/dL (13.0-17.5) Hematocrit 26.8 % (39.0-53.0) Mean Corpuscular Volume 110 fL (79-100) Mean Corpuscular Hemoglobin 37 pg (25-35) Mean Corpuscular Hemoglobin Concent 34 g/dL (31-37) Red Cell Distribution Width 15.8 % (11.5-14.5) Platelet Count 84 x10^3/uL (140-400) Neutrophils (%) (Auto) 61 % (31-73) Lymphocytes (%) (Auto) 22 % (24-48) Monocytes (%) (Auto) 14 % (0-9) Eosinophils (%) (Auto) 3 % (0-3) Basophils (%) (Auto) 1 % (0-3) Neutrophils # (Auto) 2.2 x10^3uL (1.8-7.7) Lymphocytes # (Auto) 0.8 x10^3/uL (1.0-4.8) Monocytes # (Auto) 0.5 x10^3/uL (0.0-1.1) Eosinophils # (Auto) 0.1 x10^3/uL (0.0-0.7) Basophils # (Auto) 0.0 x10^3/uL (0.0-0.2) Sodium Level 136 mmol/L (136-145) Potassium Level 4.0 mmol/L (3.5-5.1) Chloride Level 96 mmol/L (98-107) Carbon Dioxide Level 25 mmol/L (21-32) Anion Gap 15 (6-14) Blood Urea Nitrogen 38 mg/dL (8-26) Creatinine 5.4 mg/dL (0.7-1.3) Estimated GFR (Cockcroft-Gault) 10.2 Glucose Level 195 mg/dL (70-99) Calcium Level 8.7 mg/dL (8.5-10.1) Test 10/02/18 07:01 Glucose (Fingerstick) 208 mg/dL (70-99) Medications Active Scripts Medications Dose Route/Sig Max Daily Dose Days Date Category Humalog (Insulin Lispro) 100 Unit/1 Ml Insuln.pen 10 Units SQ TIDWMEALS 30 08/14/18 Rx Haloperidol 2 Mg Tablet 0.5 Tab PO Q12HR 08/14/18 Rx Lantus Solostar (Insulin Glargine,Hum.rec.anlog) 100 Unit/1 Ml Insuln.pen 24 Unit SQ QHS 30 08/14/18 Rx Alprazolam 0.5 Mg Tablet 1 Tab PO HS PRN 08/14/18 Rx Tamsulosin Hcl 0.4 Mg Cap.er.24h 0.8 Mg PO DAILY 08/11/18 Reported Spironolactone 25 Mg Tablet 1 Tab PO DAILY 08/11/18 Reported Senokot (Sennosides) 8.6 Mg Tablet 1 Tab PO BID 08/11/18 Reported Requip (Ropinirole Hcl) 1 Mg Tablet 1 Tab PO QHS 08/11/18 Reported Lyrica (Pregabalin) 75 Mg Capsule 1 Cap PO BID 08/11/18 Reported Super Enzyme Caps (Pancreat/Bet Hcl/Pep/Brom/Pap) 1 Each Capsule 4 Cap PO QID 08/11/18 Reported Magnesium Oxide 400 Mg Tablet 1 Tab PO DAILY 08/11/18 Reported Gemfibrozil 600 Mg Tablet 1 Tab PO BIDWMEALS 08/11/18 Reported Folic Acid 1 Mg Tablet 1 Tab PO DAILY 08/11/18 Reported Fish Oil 1,000 Mg Capsule ([place]-3 Fatty Acids/Fish Oil) 1 Each Capsule 2,000 Each PO BID 08/11/18 Reported Cyclobenzaprine Hcl 10 Mg Tablet 1 Tab PO BID 08/11/18 Reported Irina Elias 6,000 Units Capsule (Lipase/Protease/Amylase) 1 Each Capsule. 1 Each PO QID 08/11/18 Reported Vitamin D3 (Cholecalciferol (Vitamin D3)) 1,000 Unit Tablet 3 Tab PO DAILY 08/11/18 Reported Aspirin Ec (Aspirin) 81 Mg Tablet. 1 Tab PO DAILY 08/11/18 Reported Acetaminophen 500 Mg Tablet 1,000 Mg PO PRN DAILY PRN 08/11/18 Reported Midodrine Hcl 5 Mg Tablet 5 Mg PO 3X/WEEK 06/06/18 Reported Hydroxyzine Hcl 25 Mg Tablet 25 Mg PO QID 06/06/18 Reported Calcium Acetate 667 Mg Tablet 2 Cap PO BIDAC 06/06/18 Reported Prevalite Packet (Cholestyramine/Aspartame) 4 Gm Powd.pack 4 Gm PO BID 06/06/18 Reported Toprol Xl (Metoprolol Succinate) 25 Mg Tab.er.24h 1 Tab PO DAILY 06/06/18 Reported Furosemide 40 Mg Tablet 2 Tab PO DAILY 06/06/18 Reported Diltiazem 24HR Cd (Diltiazem Hcl) 120 Mg Cap.er.24h 1 Cap PO DAILY 06/06/18 Reported Percocet 5-325 Mg Tablet (Oxycodone/Acetaminophen) 1 Each Tablet 1 Tab PO QID 06/06/17 Reported Humalog (Insulin Lispro) 100 Unit/1 Ml Cartridge 8 Unit SQ TIDAC 06/06/17 Reported Prilosec Otc (Omeprazole Magnesium) 20 Mg Tablet. 20 Mg PO DAILY 11/20/14 Reported Impression . 1. Acute respiratory failure. 2. Sepsis/ septic shock. secondary to pneumonia. resolved 3. Coronary artery disease with previous coronary artery bypass grafting. 4. Acute metabolic toxic encephalopathy, present upon admission. 5. Protein malnutrition present upon admission. 6. Status post pacemaker. 7. Peripheral vascular disease. 8. Abnormal cxr with LLL infiltrate/ effusion 9. thrombocytopenia/ leukopenia Plan . D/W AND TOE FORMER [employer] OK TO TRANSFER TO [facility] MARIA HARRISON MD Oct 02, 2018 10:02
--- NOTE | 2018-10-02 10:27 | PDOC ---
SUBJECTIVE ROS Asked to see for ESRD on hemodialysis Tuesday Patient is just back from bone marrow biopsy. He appears somewhat drowsy currently. I am unable to get accurate ROS from patient OBJECTIVE Vital Signs Vital Signs Date Time Temp Pulse Resp B/P (MAP) Pulse Ox O2 Delivery O2 Flow Rate FiO2 10/02/18 09:13 112 18 98 Nasal Cannula 3.0 10/02/18 07:00 97.8 119/59 (79) 97.8 I & 0 Intake and Output 10/02/18 07:00 Intake Total 380 ml Balance 380 ml Intake Oral 380 ml # Voids 4 PHYSICAL EXAM Physical Exam GEN: Awake, Oriented x 0-1. Remains somewhat drowsy, In no apparent respiratory distress EYES: Vision Unchanged, Conjunctiva Normal EN: No EN Drainage, Mucous Membranes dryish NECK: No JVD, no JVP, Supple, no palpable Thyromegaly; short thick neck CVS: S1S2, positive systolic Murmur, No Gallop, No Rub, trace lower extremity Edema RESP: No current audible Rales, no Rhonchi, no visible Acc. Muscle Use GI: BS + ve, NO Bruit, Non Tender, Non Distended; obese abdomen : no CVA tenderness, no Suprapubic Tenderness DIAGNOSIS/ASSESSMENT Assessment & Plan ESRD: Current fluid and E-lyte status does not necessitate emergent need for dialysis. Will re-evaluate for dialysis in the am and continue on Tuesday schedule. ANEMIA presumably of chronic kidney disease; gradually worsening. Other etiologies cannot be ruled out. May need Aranap ordered,. Will defer this decision to hematology pending evaluation of pancytopenia and bone marrow biopsy. Transfuse with next HD as needed Pancytopenia: Now patient is status post bone marrow biopsy. HTN: Current BP meds as reviewed. See orders for changes. Left pleural effusion: Defer to pulmonary if amenable to tap. Given chronically low blood pressure it seems unlikely that this is ultrafilterable BONE & MINERAL: Follow phosphorus, by mouth intake and alter binder regimen as needed. Discussed Plan of Care with nurse at bedside COMMENT/RELEVANT DATA Meds Current Medications Medications (Trade) Dose Ordered Sig/Tracy Start Time Stop Time Status Last Admin Dose Admin Acetaminophen (Tylenol) 650 mg PRN Q6HRS PRN 09/25/18 16:30 09/30/18 05:11 650 MG Albumin Human 200 ml @ 200 mls/hr 1X ONCE 09/28/18 12:15 09/28/18 13:14 DC 09/28/18 12:26 200 MLS/HR Albuterol Sulfate (Ventolin Neb Soln) 2.5 mg PRN Q2HR PRN 09/25/18 16:30 Albuterol/ Ipratropium (Duoneb) 3 ml RTQID 09/25/18 20:00 10/02/18 07:11 3 ML Alprazolam (Xanax) 0.25 mg PRN QHS PRN 09/29/18 02:45 10/01/18 20:14 0.25 MG Dextrose (Dextrose 50%-Water Syringe) 12.5 gm PRN Q15MIN PRN 09/25/18 16:30 Docusate Sodium (Colace) 100 mg PRN DAILY PRN 09/25/18 16:30 Famotidine (Pepcid Vial) 20 mg Q48H 09/25/18 21:00 10/01/18 14:42 DC 09/29/18 20:30 20 MG Famotidine (Pepcid) 20 mg Q48H 10/01/18 21:00 10/01/18 20:14 20 MG Fentanyl Citrate (Fentanyl 2ml Vial) 50 mcg 1X ONCE 10/02/18 09:15 10/02/18 09:19 DC 10/02/18 09:12 50 MCG Guaifenesin (Mucinex) 600 mg BID 09/25/18 21:00 10/01/18 20:14 600 MG Haloperidol (Haldol) 0.5 mg 1X ONCE 09/29/18 02:45 09/29/18 02:46 DC 09/29/18 02:51 0.5 MG Heparin Sodium (Porcine) (Heparin Sodium) 5,000 unit Q8HRS 09/25/18 22:00 09/30/18 15:30 DC 09/30/18 05:21 5,000 UNIT Info (PHARMACY MONITORING -- do not chart) 1 each PRN DAILY PRN 09/30/18 10:45 09/30/18 10:45 DC Insulin Human Lispro (HumaLOG) 0-7 UNITS TIDWMEALS 09/25/18 17:00 10/01/18 17:27 3 UNITS Lactobacillus Rhamnosus (Culturelle) 1 cap BID 09/27/18 21:00 10/01/18 20:13 1 CAP Lidocaine HCl (Lidocaine 1% 20ml Vial) 20 ml STK-MED ONCE 09/25/18 10:41 09/25/18 10:42 DC Lidocaine/Sodium Bicarbonate (Buffered Lidocaine 1%) 9 ml 1X ONCE 10/02/18 09:15 10/02/18 09:19 DC 10/02/18 09:12 9 ML Midazolam HCl (Versed) 2 mg 1X ONCE 10/02/18 09:15 10/02/18 09:19 DC 10/02/18 09:12 2 MG Naloxone HCl (Narcan) 0.2 mg 1X ONCE 09/25/18 08:45 09/25/18 08:46 DC 09/25/18 08:47 0.2 MG Norepinephrine Bitartrate 250 ml @ 9.375 mls/ hr CONT PRN 09/25/18 14:45 09/27/18 16:31 DC 09/25/18 19:33 18.75 MLS/HR Ondansetron HCl (Zofran) 4 mg PRN Q6HRS PRN 09/25/18 16:30 Oxycodone/ Acetaminophen (Percocet 5/325) 1 tab PRN Q6HRS PRN 09/29/18 02:45 10/01/18 22:08 1 TAB Piperacillin Sod/ Tazobactam Sod (Zosyn Per Pharmacy) 1 each PRN DAILY PRN 09/25/18 09:30 Piperacillin Sod/ Tazobactam Sod 2.25 gm/Sodium Chloride 50 ml @ 100 mls/hr Q8HRS 09/25/18 16:00 10/02/18 05:27 100 MLS/HR Risperidone (RisperDAL) 0.5 mg 1X ONCE 09/30/18 00:15 09/30/18 00:16 DC 09/30/18 00:22 0.5 MG Sodium Chloride 1,000 ml @ 400 mls/hr Q2H30M PRN 09/30/18 10:31 09/30/18 22:30 DC Sodium Chloride (Normal Saline Flush) 10 ml 1X PRN PRN 09/26/18 06:45 09/27/18 06:44 DC Vancomycin HCl (Vanco Per Pharmacy) 1 each PRN DAILY PRN 09/25/18 09:30 09/29/18 15:07 DC 09/28/18 13:20 1 EACH Vancomycin HCl (Vancomycin Random Level) 1 each 1X ONCE 09/26/18 06:00 09/26/18 06:02 DC 09/26/18 05:35 1 EACH Vancomycin HCl 1.75 gm/Sodium Chloride 500 ml @ 250 mls/hr 1X ONCE 09/25/18 09:45 09/25/18 11:44 DC 09/25/18 10:25 250 MLS/HR Vancomycin HCl 500 mg/Sodium Chloride 100 ml @ 100 mls/hr TuThSa 09/26/18 16:00 09/29/18 15:07 DC 09/28/18 16:13 100 MLS/HR Vasopressin 40 unit/Dextrose 102 ml @ 6 mls/hr CONT PRN 09/25/18 13:15 09/27/18 16:31 DC 09/26/18 04:12 6 MLS/HR Lab Laboratory Tests Test 10/01/18 10:37 10/01/18 16:36 10/01/18 20:06 10/02/18 05:30 Glucose (Fingerstick) 321 mg/dL (70-99) 188 mg/dL (70-99) 174 mg/dL (70-99) White Blood Count 3.6 x10^3/uL (4.0-11.0) Red Blood Count 2.43 x10^6/uL (4.30-5.70) Hemoglobin 9.1 g/dL (13.0-17.5) Hematocrit 26.8 % (39.0-53.0) Mean Corpuscular Volume 110 fL (79-100) Mean Corpuscular Hemoglobin 37 pg (25-35) Mean Corpuscular Hemoglobin Concent 34 g/dL (31-37) Red Cell Distribution Width 15.8 % (11.5-14.5) Platelet Count 84 x10^3/uL (140-400) Neutrophils (%) (Auto) 61 % (31-73) Lymphocytes (%) (Auto) 22 % (24-48) Monocytes (%) (Auto) 14 % (0-9) Eosinophils (%) (Auto) 3 % (0-3) Basophils (%) (Auto) 1 % (0-3) Neutrophils # (Auto) 2.2 x10^3uL (1.8-7.7) Lymphocytes # (Auto) 0.8 x10^3/uL (1.0-4.8) Monocytes # (Auto) 0.5 x10^3/uL (0.0-1.1) Eosinophils # (Auto) 0.1 x10^3/uL (0.0-0.7) Basophils # (Auto) 0.0 x10^3/uL (0.0-0.2) Sodium Level 136 mmol/L (136-145) Potassium Level 4.0 mmol/L (3.5-5.1) Chloride Level 96 mmol/L (98-107) Carbon Dioxide Level 25 mmol/L (21-32) Anion Gap 15 (6-14) Blood Urea Nitrogen 38 mg/dL (8-26) Creatinine 5.4 mg/dL (0.7-1.3) Estimated GFR (Cockcroft-Gault) 10.2 Glucose Level 195 mg/dL (70-99) Calcium Level 8.7 mg/dL (8.5-10.1) Test 10/02/18 07:01 Glucose (Fingerstick) 208 mg/dL (70-99) Results All relevant outside records, renal labs, imaging studies, telemetry/EKG's were reviewed. RICHIE UPTON MD Oct 02, 2018 10:27
--- NOTE | 2018-10-02 11:04 | RAD ---
CT-guided bone marrow biopsy. 10/02/2018 11:00 AM Indication: Pancytopenia, eval for MDS Discussion: The risks and benefits of the procedure, including but not limited to, bleeding and infection were discussed patient. Informed consent was obtained. The patient was brought to the CT scanner and placed in the prone position. A timeout procedure was performed. Control Center Operator CT imaging of the pelvis demonstrated left ilium amenable to bone marrow biopsy. The overlying soft tissues were prepped and draped using maximum sterile barrier technique. 1% lidocaine without epinephrine was administered for local anesthesia. Under intermittent CT guidance, an OncControl needle was advanced into the bone marrow of the left iliac crest. 2 Aspirates and 1 core biopsy samples were obtained. Samples were delivered to pathology was present at the time of procedure. The needle was removed and manual pressure held to achieve hemostasis. No immediate complications were identified. The procedure was performed under conscious sedation including continuous cardiopulmonary monitoring via dedicated sedation nurse. Sedation time: 20 minutes Impression: Successful CT-guided bone marrow biopsy of the left iliac crest . PQRS Compliance Statement: One or more of the following individualized dose reduction techniques were utilized for this examination: 1. Automated exposure control 2. Adjustment of the mA and/or kV according to patient size 3. Use of iterative reconstruction technique
--- NOTE | 2018-10-02 11:19 | PDOC ---
Infectious Disease Note Subjective Subjective s/p CT-guided bone marrow biopsy this morning Sleeping feels he is comfortable No fevers Vital Sign Vital Signs Vital Signs Date Time Temp Pulse Resp B/P (MAP) Pulse Ox O2 Delivery O2 Flow Rate FiO2 10/02/18 11:04 97 Nasal Cannula 2.0 10/02/18 09:13 112 18 10/02/18 07:00 97.8 119/59 (79) 97.8 Physical Exam PHYSICAL EXAM GENERAL: Resting quietly, NAD. Smiled LUNGS: Decreased aeration, nonlabored HEART: S1, S2 ABDOMEN: Obese, BS active, soft, nontender EXTREMITIES: Trace edema BLE, LUE-AV fistula site looks unremarkable. SKIN: Warm, dry. No generalized rash. 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, [facility] without signs of complications Labs Lab Laboratory Tests Test 10/01/18 16:36 10/01/18 20:06 10/02/18 05:30 10/02/18 07:01 Glucose (Fingerstick) 188 mg/dL (70-99) 174 mg/dL (70-99) 208 mg/dL (70-99) White Blood Count 3.6 x10^3/uL (4.0-11.0) Red Blood Count 2.43 x10^6/uL (4.30-5.70) Hemoglobin 9.1 g/dL (13.0-17.5) Hematocrit 26.8 % (39.0-53.0) Mean Corpuscular Volume 110 fL (79-100) Mean Corpuscular Hemoglobin 37 pg (25-35) Mean Corpuscular Hemoglobin Concent 34 g/dL (31-37) Red Cell Distribution Width 15.8 % (11.5-14.5) Platelet Count 84 x10^3/uL (140-400) Neutrophils (%) (Auto) 61 % (31-73) Lymphocytes (%) (Auto) 22 % (24-48) Monocytes (%) (Auto) 14 % (0-9) Eosinophils (%) (Auto) 3 % (0-3) Basophils (%) (Auto) 1 % (0-3) Neutrophils # (Auto) 2.2 x10^3uL (1.8-7.7) Lymphocytes # (Auto) 0.8 x10^3/uL (1.0-4.8) Monocytes # (Auto) 0.5 x10^3/uL (0.0-1.1) Eosinophils # (Auto) 0.1 x10^3/uL (0.0-0.7) Basophils # (Auto) 0.0 x10^3/uL (0.0-0.2) Sodium Level 136 mmol/L (136-145) Potassium Level 4.0 mmol/L (3.5-5.1) Chloride Level 96 mmol/L (98-107) Carbon Dioxide Level 25 mmol/L (21-32) Anion Gap 15 (6-14) Blood Urea Nitrogen 38 mg/dL (8-26) Creatinine 5.4 mg/dL (0.7-1.3) Estimated GFR (Cockcroft-Gault) 10.2 Glucose Level 195 mg/dL (70-99) Calcium Level 8.7 mg/dL (8.5-10.1) Micro 09/25/18 Blood Culture - Preliminary, Resulted NO GROWTH AFTER 5 DAYS Objective Assessment Pancytopenia - slowly improving. s/p BM bx 10/02 Sepsis with hypotension requiring vasopressor support. now off Suspected pneumonia. Acute respiratory failure, now on O2,off bipap Coronary artery disease with coronary artery bypass grafting. Status post pacemaker. End-stage renal disease, on hemodialysis via AV fistula. Diabetes. History of multiple hospitalizations this year, requiring antibiotic support. History of [facility] healthcare-associated pneumonia, 07/2018, treated. History of benign prostatic hypertrophy with urinary retention. Legally blind. History of mild dysphagia with aspiration of thin liquids per past video swallow study. Sulfa allergy. Small LLL effusion Plan Plan of Care Will d/c Zosyn (09/25) dose Augmentin for 3 days S/p Bone marrow and doing ok BC neg Supportive care Recommend removing LIJ if not needed D/w Attending Co-Sign Attending Co-Sign The patient was seen and interviewed as well as examined at the bedside. The chart was reviewed. The case was discussed. Agree with the plan of care. YU LUO APRN Oct 02, 2018 11:19 JOSE FELIX MD Oct 02, 2018 13:51
--- NOTE | 2018-10-02 11:52 | PDOC ---
PROGRESS NOTES Chief Complaint Chief Complaint Acute respiratory failure Sepsis/ septic shock, secondary to pneumonia Coronary artery disease with previous coronary artery bypass grafting Acute metabolic toxic encephalopathy, present upon admission Protein malnutrition present upon admission Status post pacemaker Peripheral vascular disease Abnormal cxr with LLL infiltrate/ effusion Hyperkalemia, resolved PANCYTOPENIA TO SNF WHEN OK WITH ID/HEME RETIC, HAPTOGLOBIN FE/TIBC History of Present Illness History of Present Illness Pt seen and examined Sitting in chair, calm, cooperative, oxygen via nasal cannula Discussed with RN at bedside Vitals Vitals Vital Signs Date Time Temp Pulse Resp B/P (MAP) Pulse Ox O2 Delivery O2 Flow Rate FiO2 10/02/18 11:04 97 Nasal Cannula 2.0 10/02/18 11:00 98.0 100 20 122/72 (89) 98.0 Physical Exam Physical Exam GENERAL: Resting quietly LUNGS: Decreased aeration, nonlabored HEART: S1, S2 ABDOMEN: Obese, BS active, soft, nontender EXTREMITIES: Trace edema BLE, LUE-AV fistula site looks unremarkable. SKIN: Warm, dry. No generalized rash. 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, [facility] without signs of complications General: Alert, Cooperative, No acute distress, mild distress Heart: Regular rate (tachy), Normal S1, Normal S2 Lungs: Clear Abdomen: Soft, No tenderness, No masses Extremities: No clubbing, No cyanosis Skin: No rashes, No breakdown Labs LABS Laboratory Tests Test 10/01/18 16:36 10/01/18 20:06 10/02/18 05:30 10/02/18 07:01 Glucose (Fingerstick) 188 mg/dL (70-99) 174 mg/dL (70-99) 208 mg/dL (70-99) White Blood Count 3.6 x10^3/uL (4.0-11.0) Red Blood Count 2.43 x10^6/uL (4.30-5.70) Hemoglobin 9.1 g/dL (13.0-17.5) Hematocrit 26.8 % (39.0-53.0) Mean Corpuscular Volume 110 fL (79-100) Mean Corpuscular Hemoglobin 37 pg (25-35) Mean Corpuscular Hemoglobin Concent 34 g/dL (31-37) Red Cell Distribution Width 15.8 % (11.5-14.5) Platelet Count 84 x10^3/uL (140-400) Neutrophils (%) (Auto) 61 % (31-73) Lymphocytes (%) (Auto) 22 % (24-48) Monocytes (%) (Auto) 14 % (0-9) Eosinophils (%) (Auto) 3 % (0-3) Basophils (%) (Auto) 1 % (0-3) Neutrophils # (Auto) 2.2 x10^3uL (1.8-7.7) Lymphocytes # (Auto) 0.8 x10^3/uL (1.0-4.8) Monocytes # (Auto) 0.5 x10^3/uL (0.0-1.1) Eosinophils # (Auto) 0.1 x10^3/uL (0.0-0.7) Basophils # (Auto) 0.0 x10^3/uL (0.0-0.2) Sodium Level 136 mmol/L (136-145) Potassium Level 4.0 mmol/L (3.5-5.1) Chloride Level 96 mmol/L (98-107) Carbon Dioxide Level 25 mmol/L (21-32) Anion Gap 15 (6-14) Blood Urea Nitrogen 38 mg/dL (8-26) Creatinine 5.4 mg/dL (0.7-1.3) Estimated GFR (Cockcroft-Gault) 10.2 Glucose Level 195 mg/dL (70-99) Calcium Level 8.7 mg/dL (8.5-10.1) Assessment and Plan Assessmemt and Plan Problems Medical Problems: (1) Pneumonia Status: Acute Comment Review of Relevant I have reviewed the following items sarah (where applicable) has been applied. Labs Laboratory Tests Test 09/30/18 15:16 09/30/18 16:45 09/30/18 20:28 10/01/18 04:40 Glucose (Fingerstick) 140 mg/dL (70-99) 214 mg/dL (70-99) 286 mg/dL (70-99) White Blood Count 3.5 x10^3/uL (4.0-11.0) Red Blood Count 2.55 x10^6/uL (4.30-5.70) Hemoglobin 9.4 g/dL (13.0-17.5) Hematocrit 27.8 % (39.0-53.0) Mean Corpuscular Volume 109 fL (79-100) Mean Corpuscular Hemoglobin 37 pg (25-35) Mean Corpuscular Hemoglobin Concent 34 g/dL (31-37) Red Cell Distribution Width 15.6 % (11.5-14.5) Platelet Count 73 x10^3/uL (140-400) Neutrophils (%) (Auto) 66 % (31-73) Lymphocytes (%) (Auto) 18 % (24-48) Monocytes (%) (Auto) 13 % (0-9) Eosinophils (%) (Auto) 2 % (0-3) Basophils (%) (Auto) 1 % (0-3) Neutrophils # (Auto) 2.3 x10^3uL (1.8-7.7) Lymphocytes # (Auto) 0.6 x10^3/uL (1.0-4.8) Monocytes # (Auto) 0.4 x10^3/uL (0.0-1.1) Eosinophils # (Auto) 0.1 x10^3/uL (0.0-0.7) Basophils # (Auto) 0.0 x10^3/uL (0.0-0.2) Sodium Level 137 mmol/L (136-145) Potassium Level 4.4 mmol/L (3.5-5.1) Chloride Level 97 mmol/L (98-107) Carbon Dioxide Level 28 mmol/L (21-32) Anion Gap 12 (6-14) Blood Urea Nitrogen 27 mg/dL (8-26) Creatinine 4.3 mg/dL (0.7-1.3) Estimated GFR (Cockcroft-Gault) 13.3 Glucose Level 198 mg/dL (70-99) Calcium Level 9.1 mg/dL (8.5-10.1) Test 10/01/18 07:07 10/01/18 10:37 10/01/18 16:36 10/01/18 20:06 Glucose (Fingerstick) 192 mg/dL (70-99) 321 mg/dL (70-99) 188 mg/dL (70-99) 174 mg/dL (70-99) Test 10/02/18 05:30 10/02/18 07:01 White Blood Count 3.6 x10^3/uL (4.0-11.0) Red Blood Count 2.43 x10^6/uL (4.30-5.70) Hemoglobin 9.1 g/dL (13.0-17.5) Hematocrit 26.8 % (39.0-53.0) Mean Corpuscular Volume 110 fL (79-100) Mean Corpuscular Hemoglobin 37 pg (25-35) Mean Corpuscular Hemoglobin Concent 34 g/dL (31-37) Red Cell Distribution Width 15.8 % (11.5-14.5) Platelet Count 84 x10^3/uL (140-400) Neutrophils (%) (Auto) 61 % (31-73) Lymphocytes (%) (Auto) 22 % (24-48) Monocytes (%) (Auto) 14 % (0-9) Eosinophils (%) (Auto) 3 % (0-3) Basophils (%) (Auto) 1 % (0-3) Neutrophils # (Auto) 2.2 x10^3uL (1.8-7.7) Lymphocytes # (Auto) 0.8 x10^3/uL (1.0-4.8) Monocytes # (Auto) 0.5 x10^3/uL (0.0-1.1) Eosinophils # (Auto) 0.1 x10^3/uL (0.0-0.7) Basophils # (Auto) 0.0 x10^3/uL (0.0-0.2) Sodium Level 136 mmol/L (136-145) Potassium Level 4.0 mmol/L (3.5-5.1) Chloride Level 96 mmol/L (98-107) Carbon Dioxide Level 25 mmol/L (21-32) Anion Gap 15 (6-14) Blood Urea Nitrogen 38 mg/dL (8-26) Creatinine 5.4 mg/dL (0.7-1.3) Estimated GFR (Cockcroft-Gault) 10.2 Glucose Level 195 mg/dL (70-99) Calcium Level 8.7 mg/dL (8.5-10.1) Glucose (Fingerstick) 208 mg/dL (70-99) Laboratory Tests Test 10/01/18 16:36 10/01/18 20:06 10/02/18 05:30 10/02/18 07:01 Glucose (Fingerstick) 188 mg/dL (70-99) 174 mg/dL (70-99) 208 mg/dL (70-99) White Blood Count 3.6 x10^3/uL (4.0-11.0) Red Blood Count 2.43 x10^6/uL (4.30-5.70) Hemoglobin 9.1 g/dL (13.0-17.5) Hematocrit 26.8 % (39.0-53.0) Mean Corpuscular Volume 110 fL (79-100) Mean Corpuscular Hemoglobin 37 pg (25-35) Mean Corpuscular Hemoglobin Concent 34 g/dL (31-37) Red Cell Distribution Width 15.8 % (11.5-14.5) Platelet Count 84 x10^3/uL (140-400) Neutrophils (%) (Auto) 61 % (31-73) Lymphocytes (%) (Auto) 22 % (24-48) Monocytes (%) (Auto) 14 % (0-9) Eosinophils (%) (Auto) 3 % (0-3) Basophils (%) (Auto) 1 % (0-3) Neutrophils # (Auto) 2.2 x10^3uL (1.8-7.7) Lymphocytes # (Auto) 0.8 x10^3/uL (1.0-4.8) Monocytes # (Auto) 0.5 x10^3/uL (0.0-1.1) Eosinophils # (Auto) 0.1 x10^3/uL (0.0-0.7) Basophils # (Auto) 0.0 x10^3/uL (0.0-0.2) Sodium Level 136 mmol/L (136-145) Potassium Level 4.0 mmol/L (3.5-5.1) Chloride Level 96 mmol/L (98-107) Carbon Dioxide Level 25 mmol/L (21-32) Anion Gap 15 (6-14) Blood Urea Nitrogen 38 mg/dL (8-26) Creatinine 5.4 mg/dL (0.7-1.3) Estimated GFR (Cockcroft-Gault) 10.2 Glucose Level 195 mg/dL (70-99) Calcium Level 8.7 mg/dL (8.5-10.1) Microbiology 09/25/18 Blood Culture - Final, Complete NO GROWTH AFTER 5 DAYS Medications Current Medications Naloxone HCl (Narcan) 0.2 mg 1X ONCE IV Last administered on 09/25/18at 08:47 ; Start 09/25/18 at 08:45; Stop 09/25/18 at 08:46; Status DC Sodium Chloride 500 ml @ 500 mls/hr 1X ONCE IV Last administered on at 08:49; Start 09/25/18 at 08:45; Stop 09/25/18 at 09:44; Status DC Vancomycin HCl (Vanco Per Pharmacy) 1 each PRN DAILY PRN MC SEE COMMENTS Last administered on 09/28/18at 13:20; Start 09/25/18 at 09:30; Stop 09/29/18 at 15: 07; Status DC Piperacillin Sod/ Tazobactam Sod (Zosyn Per Pharmacy) 1 each PRN DAILY PRN MC SEE COMMENTS; Start 09/25/18 at 09:30 Piperacillin Sod/ Tazobactam Sod 2.25 gm/Sodium Chloride 50 ml @ 100 mls/hr 1X ONCE IV Last administered on 09/25/18at 09:48; Start 09/25/18 at 09:30; Stop 09/25/18 at 09:59; Status DC Vancomycin HCl 1.75 gm/Sodium Chloride 500 ml @ 250 mls/hr 1X ONCE IV Last administered on 09/25/18at 10:25; Start 09/25/18 at 09:45; Stop 09/25/18 at 11 :44; Status DC Sodium Chloride 500 ml @ 500 mls/hr 1X ONCE IV Last administered on at 09:48; Start 09/25/18 at 09:45; Stop 09/25/18 at 10:44; Status DC Sodium Chloride 500 ml @ 500 mls/hr 1X ONCE IV Last administered on at 11:16; Start 09/25/18 at 10:30; Stop 09/25/18 at 11:29; Status DC Norepinephrine Bitartrate 250 ml @ 0 mls/hr 1X ONCE IV Last administered on at 11:13; Start 09/25/18 at 10:30; Stop 09/25/18 at 14:39; Status DC Lidocaine HCl (Lidocaine 1% 20ml Vial) 20 ml STK-MED ONCE .ROUTE ; Start at 10:41; Stop 09/25/18 at 10:42; Status DC Vasopressin 40 unit/Dextrose 102 ml @ 6 mls/hr CONT PRN IV SEE I/O RECORD Last administered on 09/26/18at 04:12; Start 09/25/18 at 13:15; Stop 09/27/18 at 16 :31; Status DC Norepinephrine Bitartrate 250 ml @ 9.375 mls/ hr CONT PRN IV SEE I/O RECORD Last administered on 09/25/18at 19:33; Start 09/25/18 at 14:45; Stop 09/27/18 at 16:31; Status DC Piperacillin Sod/ Tazobactam Sod 2.25 gm/Sodium Chloride 50 ml @ 100 mls/hr Q8HRS IV Last administered on 10/02/18at 05:27; Start 09/25/18 at 16:00 Vancomycin HCl (Vancomycin Random Level) 1 each 1X ONCE MC Last administered on 09/26/18at 05:35; Start 09/26/18 at 06:00; Stop 09/26/18 at 06:02; Status DC Acetaminophen (Tylenol) 650 mg PRN Q6HRS PRN PO FEVER Last administered on 09/30at 05:11; Start 09/25/18 at 16:30 Ondansetron HCl (Zofran) 4 mg PRN Q6HRS PRN IV NAUSEA/VOMITING; Start at 16:30 Docusate Sodium (Colace) 100 mg PRN DAILY PRN PO CONSTIPATION; Start 09/25/18 at 16:30 Sodium Chloride 1,000 ml @ 75 mls/hr [id number] IV Last administered on at 05:51; Start 09/25/18 at 16:30; Stop 09/26/18 at 18:58; Status DC Famotidine (Pepcid Vial) 20 mg Q48H IVP Last administered on 09/29/18at 20:30; Start 09/25/18 at 21:00; Stop 10/01/18 at 14:42; Status DC Heparin Sodium (Porcine) (Heparin Sodium) 5,000 unit Q8HRS SQ Last administered on 09/30/18at 05:21; Start 09/25/18 at 22:00; Stop 09/30/18 at 15: 30; Status DC Insulin Human Lispro (HumaLOG) 0-7 UNITS TIDWMEALS SQ Last administered on 10/01at 17:27; Start 09/25/18 at 17:00 Dextrose (Dextrose 50%-Water Syringe) 12.5 gm PRN Q15MIN PRN IV SEE COMMENTS; Start 09/25/18 at 16:30 Albuterol/ Ipratropium (Duoneb) 3 ml RTQID NEB Last administered on 10/02/18at 11:03; Start 09/25/18 at 20:00 Albuterol Sulfate (Ventolin Neb Soln) 2.5 mg PRN Q2HR PRN NEB SHORTNESS OF BREATH; Start 09/25/18 at 16:30 Guaifenesin (Mucinex) 600 mg BID PO Last administered on 10/01/18at 20:14; Start 09/25/18 at 21:00 Sodium Chloride 1,000 ml @ 1,000 mls/hr Q1H PRN IV hypotension; Start at 06:43; Stop 09/26/18 at 12:42; Status DC Albumin Human 200 ml @ 200 mls/hr 1X PRN PRN IV Hypotension; Start 09/26/18 at 06:45; Stop 09/26/18 at 12:54; Status DC Sodium Chloride (Normal Saline Flush) 10 ml 1X PRN PRN IV AP 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; Start 09/26/18 at 06:45; Stop 09/27/18 at 06:44; Status DC Sodium Chloride (Normal Saline Flush) 10 ml 1X PRN PRN IV [employer]PER[employer]ENT DIV[employer] 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; Start 09/26/18 at 06:45; Stop 09/27/18 at 06:44; Status DC Sodium Chloride 1,000 ml @ 400 mls/hr Q2H30M PRN IV PATENCY; Start 09/26/18 at 06:43; Stop 09/26/18 at 18:42; Status DC Info (PHARMACY MONITORING -- do not chart) 1 each PRN DAILY PRN MC SEE COMMENTS ; Start 09/26/18 at 06:45; Status UNV Info (PHARMACY MONITORING -- do not chart) 1 each PRN DAILY PRN MC SEE COMMENTS ; Start 09/26/18 at 06:45 Vancomycin HCl 500 mg/Sodium Chloride 100 ml @ 100 mls/hr TuThSa IV Last administered on 09/28/18at 16:13; Start 09/26/18 at 16:00; Stop 09/29/18 at 15: 07; Status DC Lactobacillus Rhamnosus (Culturelle) 1 cap BID PO Last administered on at 20:13; Start 09/27/18 at 21:00 Sodium Chloride 1,000 ml @ 1,000 mls/hr Q1H PRN IV hypotension; Start 09/28/18 at 10:34; Stop 09/28/18 at 16:33; Status DC Sodium Chloride 1,000 ml @ 400 mls/hr Q2H30M PRN IV PATENCY; Start 09/28/18 at 10:34; Stop 09/28/18 at 22:33; Status DC Info (PHARMACY MONITORING -- do not chart) 1 each PRN DAILY PRN MC SEE COMMENTS ; Start 09/28/18 at 10:45; Status UNV Info (PHARMACY MONITORING -- do not chart) 1 each PRN DAILY PRN MC SEE COMMENTS ; Start 09/28/18 at 10:45; Status Cancel Albumin Human 200 ml @ 200 mls/hr 1X ONCE IV Last administered on 09/28/18at 12:26; Start 09/28/18 at 12:15; Stop 09/28/18 at 13:14; Status DC Haloperidol (Haldol) 0.5 mg 1X ONCE PO Last administered on 09/29/18at 02:51; Start 09/29/18 at 02:45; Stop 09/29/18 at 02:46; Status DC Alprazolam (Xanax) 0.25 mg PRN QHS PRN PO ANXIETY / AGITATION Last administered on 10/01/18at 20:14; Start 09/29/18 at 02:45 Oxycodone/ Acetaminophen (Percocet 5/325) 1 tab PRN Q6HRS PRN PO PAIN Last administered on 10/01/18at 22:08; Start 09/29/18 at 02:45 Sodium Chloride 1,000 ml @ 1,000 mls/hr Q1HR PRN IV hypotension Last administered on 09/29/18at 08:35; Start 09/29/18 at 08:15 Risperidone (RisperDAL) 0.5 mg 1X ONCE PO Last administered on 09/30/18at 00:22 ; Start 09/30/18 at 00:15; Stop 09/30/18 at 00:16; Status DC Sodium Chloride 1,000 ml @ 1,000 mls/hr Q1H PRN IV hypotension; Start 09/30/18 at 10:31; Stop 09/30/18 at 16:30; Status DC Sodium Chloride 1,000 ml @ 400 mls/hr Q2H30M PRN IV PATENCY; Start 09/30/18 at 10:31; Stop 09/30/18 at 22:30; Status DC Info (PHARMACY MONITORING -- do not chart) 1 each PRN DAILY PRN MC SEE COMMENTS ; Start 09/30/18 at 10:45; Stop 09/30/18 at 10:45; Status DC Info (PHARMACY MONITORING -- do not chart) 1 each PRN DAILY PRN MC SEE COMMENTS ; Start 09/30/18 at 10:45; Stop 09/30/18 at 10:45; Status DC Famotidine (Pepcid) 20 mg Q48H PO Last administered on 10/01/18at 20:14; Start 10/01/18 at 21:00 Lidocaine/Sodium Bicarbonate (Buffered Lidocaine 1%) 3 ml STK-MED ONCE .ROUTE ; Start 10/02/18 at 08:36; Stop 10/02/18 at 08:37; Status DC Midazolam HCl (Versed) 2 mg STK-MED ONCE .ROUTE ; Start 10/02/18 at 08:37; Stop 10/02/18 at 08:38; Status DC Fentanyl Citrate (Fentanyl 2ml Vial) 100 mcg STK-MED ONCE .ROUTE ; Start at 08:37; Stop 10/02/18 at 08:38; Status DC Lidocaine/Sodium Bicarbonate (Buffered Lidocaine 1%) 9 ml 1X ONCE IJ Last administered on 10/02/18at 09:12; Start 10/02/18 at 09:15; Stop 10/02/18 at 09:19 ; Status DC Midazolam HCl (Versed) 2 mg 1X ONCE IV Last administered on 10/02/18at 09:12; Start 10/02/18 at 09:15; Stop 10/02/18 at 09:19; Status DC Fentanyl Citrate (Fentanyl 2ml Vial) 50 mcg 1X ONCE IV Last administered on at 09:12; Start 10/02/18 at 09:15; Stop 11/5/18 at 09:19; Status DC Active Scripts Active Humalog (Insulin Lispro) 100 Unit/1 Ml Insuln.pen 10 Units SQ TIDWMEALS 30 Days Haloperidol 2 Mg Tablet 0.5 Tab PO Q12HR Lantus Solostar (Insulin Glargine,Hum.rec.anlog) 100 Unit/1 Ml Insuln.pen 24 Unit SQ QHS 30 Days Alprazolam 0.5 Mg Tablet 1 Tab PO HS PRN Reported Tamsulosin Hcl 0.4 Mg Cap.er.24h 0.8 Mg PO DAILY Spironolactone 25 Mg Tablet 1 Tab PO DAILY Senokot (Sennosides) 8.6 Mg Tablet 1 Tab PO BID Requip (Ropinirole Hcl) 1 Mg Tablet 1 Tab PO QHS Lyrica (Pregabalin) 75 Mg Capsule 1 Cap PO BID Super Enzyme Caps (Pancreat/Bet Hcl/Pep/Brom/Pap) 1 Each Capsule 4 Cap PO QID Magnesium Oxide 400 Mg Tablet 1 Tab PO DAILY Gemfibrozil 600 Mg Tablet 1 Tab PO BIDWMEALS Folic Acid 1 Mg Tablet 1 Tab PO DAILY Fish Oil 1,000 Mg Capsule (Box Elder-3 Fatty Acids/Fish Oil) 1 Each Capsule 2,000 Each PO BID Cyclobenzaprine Hcl 10 Mg Tablet 1 Tab PO BID Creon 6,000 Units Capsule (Lipase/Protease/Amylase) 1 Each Capsule.dr 1 Each PO QID Vitamin D3 (Cholecalciferol (Vitamin D3)) 1,000 Unit Tablet 3 Tab PO DAILY Aspirin Ec (Aspirin) 81 Mg Tablet.dr 1 Tab PO DAILY Acetaminophen 500 Mg Tablet 1,000 Mg PO PRN DAILY PRN Midodrine Hcl 5 Mg Tablet 5 Mg PO 3X/WEEK Hydroxyzine Hcl 25 Mg Tablet 25 Mg PO QID Calcium Acetate 667 Mg Tablet 2 Cap PO BIDAC Prevalite Packet (Cholestyramine/Aspartame) 4 Gm Powd.pack 4 Gm PO BID Toprol Xl (Metoprolol Succinate) 25 Mg Tab.er.24h 1 Tab PO DAILY Furosemide 40 Mg Tablet 2 Tab PO DAILY Diltiazem 24HR Cd (Diltiazem Hcl) 120 Mg Cap.er.24h 1 Cap PO DAILY Percocet 5-325 Mg Tablet (Oxycodone/Acetaminophen) 1 Each Tablet 1 Tab PO QID Humalog (Insulin Lispro) 100 Unit/1 Ml Cartridge 8 Unit SQ TIDAC Prilosec Otc (Omeprazole Magnesium) 20 Mg Tablet.dr 20 Mg PO DAILY Vitals/I & O Vital Sign - Last 24 Hours 10/01/18 10/01/18 10/01/18 10/01/18 14:44 15:00 18:06 19:52 Temp 97.5 97.6 97.5 97.6 Pulse 86 86 Resp 18 20 B/P (MAP) 114/30 (58) 150/74 (99) Pulse Ox 99 97 O2 Delivery Nasal Cannula Nasal Cannula Nasal Cannula Nasal Cannula O2 Flow Rate 2.0 3.0 2.0 2.5 10/01/18 10/01/18 10/01/18 10/01/18 20:00 22:08 23:05 23:08 Temp 98.4 98.4 Pulse 118 Resp 22 B/P (MAP) 112/86 (95) Pulse Ox 98 O2 Delivery Nasal Cannula Room Air Nasal Cannula Nasal Cannula O2 Flow Rate 2.5 2.5 2.0 10/02/18 10/02/18 10/02/18 10/02/18 03:02 07:00 07:11 09:00 Temp 97.4 97.8 97.4 97.8 Pulse 118 61 100 Resp 20 20 22 B/P (MAP) 121/55 (77) 119/59 (79) Pulse Ox 100 100 100 100 O2 Delivery Nasal Cannula Nasal Cannula Nasal Cannula O2 Flow Rate 3.0 3.0 3.0 10/02/18 10/02/18 10/02/18 10/02/18 09:05 09:10 09:12 09:13 Pulse 117 91 112 Resp 18 18 Pulse Ox 98 99 98 98 O2 Delivery Nasal Cannula Nasal Cannula O2 Flow Rate 3.0 3.0 10/02/18 10/02/18 11:00 11:04 Temp 98.0 98.0 Pulse 100 Resp 20 B/P (MAP) 122/72 (89) Pulse Ox 97 97 O2 Delivery Nasal Cannula Nasal Cannula O2 Flow Rate 3.0 2.0 Intake and Output 10/01/18 10/01/18 10/02/18 15:00 23:00 07:00 Intake Total 380 ml Balance 380 ml JENNIFER EPPERSON MD Oct 02, 2018 11:52
--- NOTE | 2018-10-02 14:32 | PDOC ---
PROGRESS NOTES Subjective Subjective HPI - Macrocytic anemia ROS - no CP Objective Objective Vital Signs Date Time Temp Pulse Resp B/P (MAP) Pulse Ox O2 Delivery O2 Flow Rate FiO2 10/02/18 11:04 97 Nasal Cannula 2.0 10/02/18 11:00 98.0 100 20 122/72 (89) 98.0 Intake and Output 10/02/18 07:00 Intake Total 380 ml Balance 380 ml Intake Oral 380 ml # Voids 4 Physical Exam Heart: Normal S1, Normal S2 General: Alert, Oriented X3, No acute distress Lungs: Clear to auscultation Neuro: Normal speech Psych/Mental Status: Mental status NL Assessment Assessment Problems Medical Problems: (1) Pneumonia Status: Acute IMPRESSION AND PLAN: 1. Macrocytic anemia. 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 He does not recall any further details. His B12 and TSH were normal in 07/2018. I will proceed with a bone marrow aspiration and biopsy to evaluate for myelodysplastic syndrome. The fluctuation seen in his platelet count is likely due to infections which would worsen his platelet counts and it gets better once the infection resolves. However, that would not explain the elevated MCV. Further workup with a bone marrow biopsy would be helpful to evaluate for myelodysplastic syndrome. I gave the option and discussed in detail with the patient and his and he prefers to proceed with the biopsy 10/02/18. I will f/u. 2. Thrombocytopenia, chronic, with periods of normal platelet counts in between. Plan bone marrow biopsy as described above. 3. Leukopenia reactive due to underlying sepsis. Monitor. 4. Sepsis. Appreciate ID consultation. Comment Review of Relevant I have reviewed the following items sarah (where applicable) has been applied. Labs Laboratory Tests Test 09/30/18 15:16 09/30/18 16:45 09/30/18 20:28 10/01/18 04:40 Glucose (Fingerstick) 140 mg/dL (70-99) 214 mg/dL (70-99) 286 mg/dL (70-99) White Blood Count 3.5 x10^3/uL (4.0-11.0) Red Blood Count 2.55 x10^6/uL (4.30-5.70) Hemoglobin 9.4 g/dL (13.0-17.5) Hematocrit 27.8 % (39.0-53.0) Mean Corpuscular Volume 109 fL (79-100) Mean Corpuscular Hemoglobin 37 pg (25-35) Mean Corpuscular Hemoglobin Concent 34 g/dL (31-37) Red Cell Distribution Width 15.6 % (11.5-14.5) Platelet Count 73 x10^3/uL (140-400) Neutrophils (%) (Auto) 66 % (31-73) Lymphocytes (%) (Auto) 18 % (24-48) Monocytes (%) (Auto) 13 % (0-9) Eosinophils (%) (Auto) 2 % (0-3) Basophils (%) (Auto) 1 % (0-3) Neutrophils # (Auto) 2.3 x10^3uL (1.8-7.7) Lymphocytes # (Auto) 0.6 x10^3/uL (1.0-4.8) Monocytes # (Auto) 0.4 x10^3/uL (0.0-1.1) Eosinophils # (Auto) 0.1 x10^3/uL (0.0-0.7) Basophils # (Auto) 0.0 x10^3/uL (0.0-0.2) Sodium Level 137 mmol/L (136-145) Potassium Level 4.4 mmol/L (3.5-5.1) Chloride Level 97 mmol/L (98-107) Carbon Dioxide Level 28 mmol/L (21-32) Anion Gap 12 (6-14) Blood Urea Nitrogen 27 mg/dL (8-26) Creatinine 4.3 mg/dL (0.7-1.3) Estimated GFR (Cockcroft-Gault) 13.3 Glucose Level 198 mg/dL (70-99) Calcium Level 9.1 mg/dL (8.5-10.1) Test 10/01/18 07:07 10/01/18 10:37 10/01/18 16:36 10/01/18 20:06 Glucose (Fingerstick) 192 mg/dL (70-99) 321 mg/dL (70-99) 188 mg/dL (70-99) 174 mg/dL (70-99) Test 10/02/18 05:30 10/02/18 07:01 10/02/18 12:16 White Blood Count 3.6 x10^3/uL (4.0-11.0) Red Blood Count 2.43 x10^6/uL (4.30-5.70) Hemoglobin 9.1 g/dL (13.0-17.5) Hematocrit 26.8 % (39.0-53.0) Mean Corpuscular Volume 110 fL (79-100) Mean Corpuscular Hemoglobin 37 pg (25-35) Mean Corpuscular Hemoglobin Concent 34 g/dL (31-37) Red Cell Distribution Width 15.8 % (11.5-14.5) Platelet Count 84 x10^3/uL (140-400) Neutrophils (%) (Auto) 61 % (31-73) Lymphocytes (%) (Auto) 22 % (24-48) Monocytes (%) (Auto) 14 % (0-9) Eosinophils (%) (Auto) 3 % (0-3) Basophils (%) (Auto) 1 % (0-3) Neutrophils # (Auto) 2.2 x10^3uL (1.8-7.7) Lymphocytes # (Auto) 0.8 x10^3/uL (1.0-4.8) Monocytes # (Auto) 0.5 x10^3/uL (0.0-1.1) Eosinophils # (Auto) 0.1 x10^3/uL (0.0-0.7) Basophils # (Auto) 0.0 x10^3/uL (0.0-0.2) Sodium Level 136 mmol/L (136-145) Potassium Level 4.0 mmol/L (3.5-5.1) Chloride Level 96 mmol/L (98-107) Carbon Dioxide Level 25 mmol/L (21-32) Anion Gap 15 (6-14) Blood Urea Nitrogen 38 mg/dL (8-26) Creatinine 5.4 mg/dL (0.7-1.3) Estimated GFR (Cockcroft-Gault) 10.2 Glucose Level 195 mg/dL (70-99) Calcium Level 8.7 mg/dL (8.5-10.1) Glucose (Fingerstick) 208 mg/dL (70-99) 173 mg/dL (70-99) Laboratory Tests Test 10/01/18 16:36 10/01/18 20:06 10/02/18 05:30 11/5/18 07:01 Glucose (Fingerstick) 188 mg/dL (70-99) 174 mg/dL (70-99) 208 mg/dL (70-99) White Blood Count 3.6 x10^3/uL (4.0-11.0) Red Blood Count 2.43 x10^6/uL (4.30-5.70) Hemoglobin 9.1 g/dL (13.0-17.5) Hematocrit 26.8 % (39.0-53.0) Mean Corpuscular Volume 110 fL (79-100) Mean Corpuscular Hemoglobin 37 pg (25-35) Mean Corpuscular Hemoglobin Concent 34 g/dL (31-37) Red Cell Distribution Width 15.8 % (11.5-14.5) Platelet Count 84 x10^3/uL (140-400) Neutrophils (%) (Auto) 61 % (31-73) Lymphocytes (%) (Auto) 22 % (24-48) Monocytes (%) (Auto) 14 % (0-9) Eosinophils (%) (Auto) 3 % (0-3) Basophils (%) (Auto) 1 % (0-3) Neutrophils # (Auto) 2.2 x10^3uL (1.8-7.7) Lymphocytes # (Auto) 0.8 x10^3/uL (1.0-4.8) Monocytes # (Auto) 0.5 x10^3/uL (0.0-1.1) Eosinophils # (Auto) 0.1 x10^3/uL (0.0-0.7) Basophils # (Auto) 0.0 x10^3/uL (0.0-0.2) Sodium Level 136 mmol/L (136-145) Potassium Level 4.0 mmol/L (3.5-5.1) Chloride Level 96 mmol/L (98-107) Carbon Dioxide Level 25 mmol/L (21-32) Anion Gap 15 (6-14) Blood Urea Nitrogen 38 mg/dL (8-26) Creatinine 5.4 mg/dL (0.7-1.3) Estimated GFR (Cockcroft-Gault) 10.2 Glucose Level 195 mg/dL (70-99) Calcium Level 8.7 mg/dL (8.5-10.1) Test 10/02/18 12:16 Glucose (Fingerstick) 173 mg/dL (70-99) Microbiology 09/25/18 Blood Culture - Final, Complete NO GROWTH AFTER 5 DAYS Medications Current Medications Naloxone HCl (Narcan) 0.2 mg 1X ONCE IV Last administered on 09/25/18at 08:47 ; Start 09/25/18 at 08:45; Stop 09/25/18 at 08:46; Status DC Sodium Chloride 500 ml @ 500 mls/hr 1X ONCE IV Last administered on at 08:49; Start 09/25/18 at 08:45; Stop 09/25/18 at 09:44; Status DC Vancomycin HCl (Vanco Per Pharmacy) 1 each PRN DAILY PRN MC SEE COMMENTS Last administered on 09/28/18at 13:20; Start 09/25/18 at 09:30; Stop 09/29/18 at 15: 07; Status DC Piperacillin Sod/ Tazobactam Sod (Zosyn Per Pharmacy) 1 each PRN DAILY PRN MC SEE COMMENTS; Start 09/25/18 at 09:30; Stop 10/02/18 at 13:51; Status DC Piperacillin Sod/ Tazobactam Sod 2.25 gm/Sodium Chloride 50 ml @ 100 mls/hr 1X ONCE IV Last administered on 09/25/18at 09:48; Start 09/25/18 at 09:30; Stop 09/25/18 at 09:59; Status DC Vancomycin HCl 1.75 gm/Sodium Chloride 500 ml @ 250 mls/hr 1X ONCE IV Last administered on 09/25/18at 10:25; Start 09/25/18 at 09:45; Stop 09/25/18 at 11 :44; Status DC Sodium Chloride 500 ml @ 500 mls/hr 1X ONCE IV Last administered on at 09:48; Start 09/25/18 at 09:45; Stop 09/25/18 at 10:44; Status DC Sodium Chloride 500 ml @ 500 mls/hr 1X ONCE IV Last administered on at 11:16; Start 09/25/18 at 10:30; Stop 09/25/18 at 11:29; Status DC Norepinephrine Bitartrate 250 ml @ 0 mls/hr 1X ONCE IV Last administered on at 11:13; Start 09/25/18 at 10:30; Stop 09/25/18 at 14:39; Status DC Lidocaine HCl (Lidocaine 1% 20ml Vial) 20 ml STK-MED ONCE .ROUTE ; Start at 10:41; Stop 09/25/18 at 10:42; Status DC Vasopressin 40 unit/Dextrose 102 ml @ 6 mls/hr CONT PRN IV SEE I/O RECORD Last administered on 09/26/18at 04:12; Start 09/25/18 at 13:15; Stop 09/27/18 at 16 :31; Status DC Norepinephrine Bitartrate 250 ml @ 9.375 mls/ hr CONT PRN IV SEE I/O RECORD Last administered on 09/25/18at 19:33; Start 09/25/18 at 14:45; Stop 09/27/18 at 16:31; Status DC Piperacillin Sod/ Tazobactam Sod 2.25 gm/Sodium Chloride 50 ml @ 100 mls/hr Q8HRS IV Last administered on 10/02/18at 05:27; Start 09/25/18 at 16:00; Stop 10/02/18 at 13:51; Status DC Vancomycin HCl (Vancomycin Random Level) 1 each 1X ONCE MC Last administered on 09/26/18at 05:35; Start 09/26/18 at 06:00; Stop 09/26/18 at 06:02; Status DC Acetaminophen (Tylenol) 650 mg PRN Q6HRS PRN PO FEVER Last administered on 09/30at 05:11; Start 09/25/18 at 16:30 Ondansetron HCl (Zofran) 4 mg PRN Q6HRS PRN IV NAUSEA/VOMITING; Start at 16:30 Docusate Sodium (Colace) 100 mg PRN DAILY PRN PO CONSTIPATION; Start 09/25/18 at 16:30 Sodium Chloride 1,000 ml @ 75 mls/hr [id number] IV Last administered on at 05:51; Start 09/25/18 at 16:30; Stop 09/26/18 at 18:58; Status DC Famotidine (Pepcid Vial) 20 mg Q48H IVP Last administered on 09/29/18at 20:30; Start 09/25/18 at 21:00; Stop 10/01/18 at 14:42; Status DC Heparin Sodium (Porcine) (Heparin Sodium) 5,000 unit Q8HRS SQ Last administered on 09/30/18at 05:21; Start 09/25/18 at 22:00; Stop 09/30/18 at 15: 30; Status DC Insulin Human Lispro (HumaLOG) 0-7 UNITS TIDWMEALS SQ Last administered on 10/01at 17:27; Start 09/25/18 at 17:00 Dextrose (Dextrose 50%-Water Syringe) 12.5 gm PRN Q15MIN PRN IV SEE COMMENTS; Start 09/25/18 at 16:30 Albuterol/ Ipratropium (Duoneb) 3 ml RTQID NEB Last administered on 10/02/18at 11:03; Start 09/25/18 at 20:00 Albuterol Sulfate (Ventolin Neb Soln) 2.5 mg PRN Q2HR PRN NEB SHORTNESS OF BREATH; Start 09/25/18 at 16:30 Guaifenesin (Mucinex) 600 mg BID PO Last administered on 10/01/18at 20:14; Start 09/25/18 at 21:00 Sodium Chloride 1,000 ml @ 1,000 mls/hr Q1H PRN IV hypotension; Start at 06:43; Stop 09/26/18 at 12:42; Status DC Albumin Human 200 ml @ 200 mls/hr 1X PRN PRN IV Hypotension; Start 09/26/18 at 06:45; Stop 09/26/18 at 12:54; Status DC Sodium Chloride (Normal Saline Flush) 10 ml 1X PRN PRN IV AP 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; Start 09/26/18 at 06:45; Stop 09/27/18 at 06:44; Status DC Sodium Chloride (Normal Saline Flush) 10 ml 1X PRN PRN IV RECOVERY AUDITOR 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; Start 09/26/18 at 06:45; Stop 09/27/18 at 06:44; Status DC Sodium Chloride 1,000 ml @ 400 mls/hr Q2H30M PRN IV PATENCY; Start 09/26/18 at 06:43; Stop 09/26/18 at 18:42; Status DC Info (PHARMACY MONITORING -- do not chart) 1 each PRN DAILY PRN MC SEE COMMENTS ; Start 09/26/18 at 06:45; Status UNV Info (PHARMACY MONITORING -- do not chart) 1 each PRN DAILY PRN MC SEE COMMENTS ; Start 09/26/18 at 06:45 Vancomycin HCl 500 mg/Sodium Chloride 100 ml @ 100 mls/hr TuThSa IV Last administered on 09/28/18at 16:13; Start 09/26/18 at 16:00; Stop 09/29/18 at 15: 07; Status DC Lactobacillus Rhamnosus (Culturelle) 1 cap BID PO Last administered on at 20:13; Start 09/27/18 at 21:00 Sodium Chloride 1,000 ml @ 1,000 mls/hr Q1H PRN IV hypotension; Start 09/28/18 at 10:34; Stop 09/28/18 at 16:33; Status DC Sodium Chloride 1,000 ml @ 400 mls/hr Q2H30M PRN IV PATENCY; Start 09/28/18 at 10:34; Stop 09/28/18 at 22:33; Status DC Info (PHARMACY MONITORING -- do not chart) 1 each PRN DAILY PRN MC SEE COMMENTS ; Start 09/28/18 at 10:45; Status UNV Info (PHARMACY MONITORING -- do not chart) 1 each PRN DAILY PRN MC SEE COMMENTS ; Start 09/28/18 at 10:45; Status Cancel Albumin Human 200 ml @ 200 mls/hr 1X ONCE IV Last administered on 09/28/18at 12:26; Start 09/28/18 at 12:15; Stop 09/28/18 at 13:14; Status DC Haloperidol (Haldol) 0.5 mg 1X ONCE PO Last administered on 09/29/18at 02:51; Start 09/29/18 at 02:45; Stop 09/29/18 at 02:46; Status DC Alprazolam (Xanax) 0.25 mg PRN QHS PRN PO ANXIETY / AGITATION Last administered on 10/01/18at 20:14; Start 09/29/18 at 02:45 Oxycodone/ Acetaminophen (Percocet 5/325) 1 tab PRN Q6HRS PRN PO PAIN Last administered on 10/01/18at 22:08; Start 09/29/18 at 02:45 Sodium Chloride 1,000 ml @ 1,000 mls/hr Q1HR PRN IV hypotension Last administered on 09/29/18at 08:35; Start 09/29/18 at 08:15 Risperidone (RisperDAL) 0.5 mg 1X ONCE PO Last administered on 09/30/18at 00:22 ; Start 09/30/18 at 00:15; Stop 09/30/18 at 00:16; Status DC Sodium Chloride 1,000 ml @ 1,000 mls/hr Q1H PRN IV hypotension; Start 09/30/18 at 10:31; Stop 09/30/18 at 16:30; Status DC Sodium Chloride 1,000 ml @ 400 mls/hr Q2H30M PRN IV PATENCY; Start 09/30/18 at 10:31; Stop 09/30/18 at 22:30; Status DC Info (PHARMACY MONITORING -- do not chart) 1 each PRN DAILY PRN MC SEE COMMENTS ; Start 09/30/18 at 10:45; Stop 09/30/18 at 10:45; Status DC Info (PHARMACY MONITORING -- do not chart) 1 each PRN DAILY PRN MC SEE COMMENTS ; Start 09/30/18 at 10:45; Stop 09/30/18 at 10:45; Status DC Famotidine (Pepcid) 20 mg Q48H PO Last administered on 10/01/18at 20:14; Start 10/01/18 at 21:00 Lidocaine/Sodium Bicarbonate (Buffered Lidocaine 1%) 3 ml STK-MED ONCE .ROUTE ; Start 10/02/18 at 08:36; Stop 10/02/18 at 08:37; Status DC Midazolam HCl (Versed) 2 mg STK-MED ONCE .ROUTE ; Start 10/02/18 at 08:37; Stop 10/02/18 at 08:38; Status DC Fentanyl Citrate (Fentanyl 2ml Vial) 100 mcg STK-MED ONCE .ROUTE ; Start at 08:37; Stop 10/02/18 at 08:38; Status DC Lidocaine/Sodium Bicarbonate (Buffered Lidocaine 1%) 9 ml 1X ONCE IJ Last administered on 10/02/18at 09:12; Start 10/02/18 at 09:15; Stop 10/02/18 at 09:19 ; Status DC Midazolam HCl (Versed) 2 mg 1X ONCE IV Last administered on 10/02/18at 09:12; Start 10/02/18 at 09:15; Stop 10/02/18 at 09:19; Status DC Fentanyl Citrate (Fentanyl 2ml Vial) 50 mcg 1X ONCE IV Last administered on at 09:12; Start 10/02/18 at 09:15; Stop 10/02/18 at 09:19; Status DC Amoxicillin/ Clavulanate Potassium (Augmentin 500/ 125mg) 1 tab DAILY PO ; Start 10/02/18 at 14:00 Active Scripts Active Humalog (Insulin Lispro) 100 Unit/1 Ml Insuln.pen 10 Units SQ TIDWMEALS 30 Days Haloperidol 2 Mg Tablet 0.5 Tab PO Q12HR Lantus Solostar (Insulin Glargine,Hum.rec.anlog) 100 Unit/1 Ml Insuln.pen 24 Unit SQ QHS 30 Days Alprazolam 0.5 Mg Tablet 1 Tab PO HS PRN Reported Tamsulosin Hcl 0.4 Mg Cap.er.24h 0.8 Mg PO DAILY Spironolactone 25 Mg Tablet 1 Tab PO DAILY Senokot (Sennosides) 8.6 Mg Tablet 1 Tab PO BID Requip (Ropinirole Hcl) 1 Mg Tablet 1 Tab PO QHS Lyrica (Pregabalin) 75 Mg Capsule 1 Cap PO BID Super Enzyme Caps (Pancreat/Bet Hcl/Pep/Brom/Pap) 1 Each Capsule 4 Cap PO QID Magnesium Oxide 400 Mg Tablet 1 Tab PO DAILY Gemfibrozil 600 Mg Tablet 1 Tab PO BIDWMEALS Folic Acid 1 Mg Tablet 1 Tab PO DAILY Fish Oil 1,000 Mg Capsule (Calvin-3 Fatty Acids/Fish Oil) 1 Each Capsule 2,000 Each PO BID Cyclobenzaprine Hcl 10 Mg Tablet 1 Tab PO BID Irina Elias 6,000 Units Capsule (Lipase/Protease/Amylase) 1 Each Capsule. 1 Each PO QID Vitamin D3 (Cholecalciferol (Vitamin D3)) 1,000 Unit Tablet 3 Tab PO DAILY Aspirin Ec (Aspirin) 81 Mg Tablet. 1 Tab PO DAILY Acetaminophen 500 Mg Tablet 1,000 Mg PO PRN DAILY PRN Midodrine Hcl 5 Mg Tablet 5 Mg PO 3X/WEEK Hydroxyzine Hcl 25 Mg Tablet 25 Mg PO QID Calcium Acetate 667 Mg Tablet 2 Cap PO BIDAC Prevalite Packet (Cholestyramine/Aspartame) 4 Gm Powd.pack 4 Gm PO BID Toprol Xl (Metoprolol Succinate) 25 Mg Tab.er.24h 1 Tab PO DAILY Furosemide 40 Mg Tablet 2 Tab PO DAILY Diltiazem 24HR Cd (Diltiazem Hcl) 120 Mg Cap.er.24h 1 Cap PO DAILY Percocet 5-325 Mg Tablet (Oxycodone/Acetaminophen) 1 Each Tablet 1 Tab PO QID Humalog (Insulin Lispro) 100 Unit/1 Ml Cartridge 8 Unit SQ TIDAC Prilosec Otc (Omeprazole Magnesium) 20 Mg Tablet.dr 20 Mg PO DAILY Vitals/I & O Vital Sign - Last 24 Hours 10/01/18 10/01/18 10/01/18 10/01/18 14:44 15:00 18:06 19:52 Temp 97.5 97.6 97.5 97.6 Pulse 86 86 Resp 18 20 B/P (MAP) 114/30 (58) 150/74 (99) Pulse Ox 99 97 O2 Delivery Nasal Cannula Nasal Cannula Nasal Cannula Nasal Cannula O2 Flow Rate 2.0 3.0 2.0 2.5 10/01/18 10/01/18 10/01/18 10/01/18 20:00 22:08 23:05 23:08 Temp 98.4 98.4 Pulse 118 Resp 22 B/P (MAP) 112/86 (95) Pulse Ox 98 O2 Delivery Nasal Cannula Room Air Nasal Cannula Nasal Cannula O2 Flow Rate 2.5 2.5 2.0 10/02/18 10/02/18 10/02/18 10/02/18 03:02 07:00 07:11 08:00 Temp 97.4 97.8 97.4 97.8 Pulse 118 61 Resp 20 20 B/P (MAP) 121/55 (77) 119/59 (79) Pulse Ox 100 100 100 O2 Delivery Nasal Cannula Nasal Cannula Nasal Cannula Nasal Cannula O2 Flow Rate 3.0 3.0 3.0 2.0 10/02/18 10/02/18 10/02/18 10/02/18 09:00 09:05 09:10 09:12 Pulse 100 117 91 Resp 22 18 18 18 Pulse Ox 100 98 99 98 O2 Delivery Nasal Cannula O2 Flow Rate 3.0 10/02/18 10/02/18 10/02/18 09:13 11:00 11:04 Temp 98.0 98.0 Pulse 112 100 Resp 18 20 B/P (MAP) 122/72 (89) Pulse Ox 98 97 97 O2 Delivery Nasal Cannula Nasal Cannula Nasal Cannula O2 Flow Rate 3.0 3.0 2.0 Intake and Output 10/01/18 10/01/18 10/02/18 15:00 23:00 07:00 Intake Total 380 ml Balance 380 ml DERREK PAYAN MD Oct 02, 2018 14:32
--- NOTE | 2018-10-02 16:14 | EKG ---
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
[2018-10-02] MEDS: AMOXICILLIN/K CLAV 500/125MG TABLET. PO SCH (17:31)
[2018-10-02] MEDS: oxyCODONE/APAP 5/325 1 TAB TABLET PO PRN (20:18)
[2018-10-02] MEDS: ALPRAZolam 0.25 MG TABLET PO PRN (20:20)
[2018-10-03] MEDS: oxyCODONE/APAP 5/325 1 TAB TABLET PO PRN ×3 (01:31→17:15)
[2018-10-03 03:30] VITALS: BP 122/50
[2018-10-03 04:31] LABS: BASO % 1 % (0-3); EOS # 0.1 x10^3/uL (0.0-0.7); EOS % 2 % (0-3); HEMATOCRIT 26.7 % (39.0-53.0); LYMPH # 0.8 x10^3/uL (1.0-4.8); LYMPH % 22 % (24-48); MEAN CORPUSCULAR HEMOGLOBIN 37 pg (25-35); MEAN CORPUSCULAR HGB CONC 34 g/dL (31-37); MEAN CORPUSCULAR VOLUME 110 fL (79-100); MONO # 0.5 x10^3/uL (0.0-1.1); MONO % 14 % (0-9); NEUT # 2.3 x10^3uL (1.8-7.7); NEUT % 61 % (31-73); PLATELET COUNT 79 x10^3/uL (140-400); RED BLOOD COUNT 2.43 x10^6/uL (4.30-5.70); RED CELL DISTRIBUTION WIDTH 16.4 % (11.5-14.5); WHITE BLOOD COUNT 3.7 x10^3/uL (4.0-11.0)
[2018-10-03 04:49] LABS: CREATININE 6.4 mg/dL (0.7-1.3); GFR 8.4; POTASSIUM 4.4 mmol/L (3.5-5.1)
[2018-10-03] MEDS: IPRATRPIUM/ALBUTEROL 0.5/2.5MG 3 ML NEBU. NEB SCH ×3 (06:19→16:16)
[2018-10-03 07:05] VITALS: BP 107/66
--- NOTE | 2018-10-03 08:38 | PDOC ---
PULMONARY PROGRESS NOTES Subjective PT WITH NO INCREASE SOA Vitals Vital Signs Date Time Temp Pulse Resp B/P (MAP) Pulse Ox O2 Delivery O2 Flow Rate FiO2 10/03/18 07:05 97.6 103 20 107/66 (80) 100 Nasal Cannula 3.0 97.6 General: Alert, No acute distress HEENT: Other Lungs: Clear Cardiovascular: S1 Abdomen: Soft Neuro Exam: Alert Extremities: Other (trace edema) Skin: Warm Labs Laboratory Tests Test 10/01/18 10:37 10/01/18 16:36 10/01/18 20:06 10/02/18 05:30 Glucose (Fingerstick) 321 mg/dL (70-99) 188 mg/dL (70-99) 174 mg/dL (70-99) White Blood Count 3.6 x10^3/uL (4.0-11.0) Red Blood Count 2.43 x10^6/uL (4.30-5.70) Hemoglobin 9.1 g/dL (13.0-17.5) Hematocrit 26.8 % (39.0-53.0) Mean Corpuscular Volume 110 fL (79-100) Mean Corpuscular Hemoglobin 37 pg (25-35) Mean Corpuscular Hemoglobin Concent 34 g/dL (31-37) Red Cell Distribution Width 15.8 % (11.5-14.5) Platelet Count 84 x10^3/uL (140-400) Neutrophils (%) (Auto) 61 % (31-73) Lymphocytes (%) (Auto) 22 % (24-48) Monocytes (%) (Auto) 14 % (0-9) Eosinophils (%) (Auto) 3 % (0-3) Basophils (%) (Auto) 1 % (0-3) Neutrophils # (Auto) 2.2 x10^3uL (1.8-7.7) Lymphocytes # (Auto) 0.8 x10^3/uL (1.0-4.8) Monocytes # (Auto) 0.5 x10^3/uL (0.0-1.1) Eosinophils # (Auto) 0.1 x10^3/uL (0.0-0.7) Basophils # (Auto) 0.0 x10^3/uL (0.0-0.2) Sodium Level 136 mmol/L (136-145) Potassium Level 4.0 mmol/L (3.5-5.1) Chloride Level 96 mmol/L (98-107) Carbon Dioxide Level 25 mmol/L (21-32) Anion Gap 15 (6-14) Blood Urea Nitrogen 38 mg/dL (8-26) Creatinine 5.4 mg/dL (0.7-1.3) Estimated GFR (Cockcroft-Gault) 10.2 Glucose Level 195 mg/dL (70-99) Calcium Level 8.7 mg/dL (8.5-10.1) Test 10/02/18 07:01 10/02/18 12:16 10/02/18 17:21 10/02/18 20:59 Glucose (Fingerstick) 208 mg/dL (70-99) 173 mg/dL (70-99) 268 mg/dL (70-99) 258 mg/dL (70-99) Test 10/03/18 04:25 10/03/18 07:39 White Blood Count 3.7 x10^3/uL (4.0-11.0) Red Blood Count 2.43 x10^6/uL (4.30-5.70) Hemoglobin 9.0 g/dL (13.0-17.5) Hematocrit 26.7 % (39.0-53.0) Mean Corpuscular Volume 110 fL (79-100) Mean Corpuscular Hemoglobin 37 pg (25-35) Mean Corpuscular Hemoglobin Concent 34 g/dL (31-37) Red Cell Distribution Width 16.4 % (11.5-14.5) Platelet Count 79 x10^3/uL (140-400) Neutrophils (%) (Auto) 61 % (31-73) Lymphocytes (%) (Auto) 22 % (24-48) Monocytes (%) (Auto) 14 % (0-9) Eosinophils (%) (Auto) 2 % (0-3) Basophils (%) (Auto) 1 % (0-3) Neutrophils # (Auto) 2.3 x10^3uL (1.8-7.7) Lymphocytes # (Auto) 0.8 x10^3/uL (1.0-4.8) Monocytes # (Auto) 0.5 x10^3/uL (0.0-1.1) Eosinophils # (Auto) 0.1 x10^3/uL (0.0-0.7) Basophils # (Auto) 0.0 x10^3/uL (0.0-0.2) Sodium Level 135 mmol/L (136-145) Potassium Level 4.4 mmol/L (3.5-5.1) Chloride Level 96 mmol/L (98-107) Carbon Dioxide Level 25 mmol/L (21-32) Anion Gap 14 (6-14) Blood Urea Nitrogen 43 mg/dL (8-26) Creatinine 6.4 mg/dL (0.7-1.3) Estimated GFR (Cockcroft-Gault) 8.4 Glucose Level 228 mg/dL (70-99) Calcium Level 9.0 mg/dL (8.5-10.1) Glucose (Fingerstick) 254 mg/dL (70-99) Laboratory Tests Test 10/02/18 12:16 10/02/18 17:21 10/02/18 20:59 10/03/18 04:25 Glucose (Fingerstick) 173 mg/dL (70-99) 268 mg/dL (70-99) 258 mg/dL (70-99) White Blood Count 3.7 x10^3/uL (4.0-11.0) Red Blood Count 2.43 x10^6/uL (4.30-5.70) Hemoglobin 9.0 g/dL (13.0-17.5) Hematocrit 26.7 % (39.0-53.0) Mean Corpuscular Volume 110 fL (79-100) Mean Corpuscular Hemoglobin 37 pg (25-35) Mean Corpuscular Hemoglobin Concent 34 g/dL (31-37) Red Cell Distribution Width 16.4 % (11.5-14.5) Platelet Count 79 x10^3/uL (140-400) Neutrophils (%) (Auto) 61 % (31-73) Lymphocytes (%) (Auto) 22 % (24-48) Monocytes (%) (Auto) 14 % (0-9) Eosinophils (%) (Auto) 2 % (0-3) Basophils (%) (Auto) 1 % (0-3) Neutrophils # (Auto) 2.3 x10^3uL (1.8-7.7) Lymphocytes # (Auto) 0.8 x10^3/uL (1.0-4.8) Monocytes # (Auto) 0.5 x10^3/uL (0.0-1.1) Eosinophils # (Auto) 0.1 x10^3/uL (0.0-0.7) Basophils # (Auto) 0.0 x10^3/uL (0.0-0.2) Sodium Level 135 mmol/L (136-145) Potassium Level 4.4 mmol/L (3.5-5.1) Chloride Level 96 mmol/L (98-107) Carbon Dioxide Level 25 mmol/L (21-32) Anion Gap 14 (6-14) Blood Urea Nitrogen 43 mg/dL (8-26) Creatinine 6.4 mg/dL (0.7-1.3) Estimated GFR (Cockcroft-Gault) 8.4 Glucose Level 228 mg/dL (70-99) Calcium Level 9.0 mg/dL (8.5-10.1) Test 10/03/18 07:39 Glucose (Fingerstick) 254 mg/dL (70-99) Medications Active Scripts Medications Dose Route/Sig Max Daily Dose Days Date Category Humalog (Insulin Lispro) 100 Unit/1 Ml Insuln.pen 10 Units SQ TIDWMEALS 30 08/14/18 Rx Haloperidol 2 Mg Tablet 0.5 Tab PO Q12HR 08/14/18 Rx Lantus Solostar (Insulin Glargine,Hum.rec.anlog) 100 Unit/1 Ml Insuln.pen 24 Unit SQ QHS 30 08/14/18 Rx Alprazolam 0.5 Mg Tablet 1 Tab PO HS PRN 08/14/18 Rx Tamsulosin Hcl 0.4 Mg Cap.er.24h 0.8 Mg PO DAILY 08/11/18 Reported Spironolactone 25 Mg Tablet 1 Tab PO DAILY 08/11/18 Reported Senokot (Sennosides) 8.6 Mg Tablet 1 Tab PO BID 08/11/18 Reported Requip (Ropinirole Hcl) 1 Mg Tablet 1 Tab PO QHS 08/11/18 Reported Lyrica (Pregabalin) 75 Mg Capsule 1 Cap PO BID 08/11/18 Reported Super Enzyme Caps (Pancreat/Bet Hcl/Pep/Brom/Pap) 1 Each Capsule 4 Cap PO QID 08/11/18 Reported Magnesium Oxide 400 Mg Tablet 1 Tab PO DAILY 08/11/18 Reported Gemfibrozil 600 Mg Tablet 1 Tab PO BIDWMEALS 08/11/18 Reported Folic Acid 1 Mg Tablet 1 Tab PO DAILY 08/11/18 Reported Fish Oil 1,000 Mg Capsule ([place]-3 Fatty Acids/Fish Oil) 1 Each Capsule 2,000 Each PO BID 08/11/18 Reported Cyclobenzaprine Hcl 10 Mg Tablet 1 Tab PO BID 08/11/18 Reported Irina Elias 6,000 Units Capsule (Lipase/Protease/Amylase) 1 Each Capsule.dr 1 Each PO QID 08/11/18 Reported Vitamin D3 (Cholecalciferol (Vitamin D3)) 1,000 Unit Tablet 3 Tab PO DAILY 08/11/18 Reported Aspirin Ec (Aspirin) 81 Mg Tablet. 1 Tab PO DAILY 08/11/18 Reported Acetaminophen 500 Mg Tablet 1,000 Mg PO PRN DAILY PRN 08/11/18 Reported Midodrine Hcl 5 Mg Tablet 5 Mg PO 3X/WEEK 06/06/18 Reported Hydroxyzine Hcl 25 Mg Tablet 25 Mg PO QID 06/06/18 Reported Calcium Acetate 667 Mg Tablet 2 Cap PO BIDAC 06/06/18 Reported Prevalite Packet (Cholestyramine/Aspartame) 4 Gm Powd.pack 4 Gm PO BID 06/06/18 Reported Toprol Xl (Metoprolol Succinate) 25 Mg Tab.er.24h 1 Tab PO DAILY 06/06/18 Reported Furosemide 40 Mg Tablet 2 Tab PO DAILY 06/06/18 Reported Diltiazem 24HR Cd (Diltiazem Hcl) 120 Mg Cap.er.24h 1 Cap PO DAILY 06/06/18 Reported Percocet 5-325 Mg Tablet (Oxycodone/Acetaminophen) 1 Each Tablet 1 Tab PO QID 06/06/17 Reported Humalog (Insulin Lispro) 100 Unit/1 Ml Cartridge 8 Unit SQ TIDAC 06/06/17 Reported Prilosec Otc (Omeprazole Magnesium) 20 Mg Tablet. 20 Mg PO DAILY 11/20/14 Reported Impression . 1. Acute respiratory failure. 2. Sepsis/ septic shock. secondary to pneumonia. resolved 3. Coronary artery disease with previous coronary artery bypass grafting. 4. Acute metabolic toxic encephalopathy, present upon admission. 5. Protein malnutrition present upon admission. 6. Status post pacemaker. 7. Peripheral vascular disease. 8. Abnormal cxr with LLL infiltrate/ effusion 9. thrombocytopenia/ leukopenia Plan . D/W TRANSFER TODAY FOLLOW UP NEEDED LUZ MARIA WHYTE MD Oct 03, 2018 08:38
[2018-10-03] MEDS: INSULIN LISPRO 300 UNITS/3 ML INSULN.PEN. SQ SCH ×3 (08:54→17:14)
--- NOTE | 2018-10-03 09:12 | PDOC ---
PROGRESS NOTES Subjective Subjective HPI - f/u of Macrocytic anemia. ROS - no CP Objective Objective Vital Signs Date Time Temp Pulse Resp B/P (MAP) Pulse Ox O2 Delivery O2 Flow Rate FiO2 10/03/18 07:05 97.6 103 20 107/66 (80) 100 Nasal Cannula 3.0 97.6 Intake and Output 10/03/18 07:00 Intake Total 100 ml Output Total 25 ml Balance 75 ml Intake Oral 100 ml Output Urine Total 25 ml # Voids 4 # Bowel Movements 1 Physical Exam Heart: Normal S1, Normal S2 General: Alert, Oriented X3, No acute distress Lungs: Clear to auscultation Neuro: Normal speech Psych/Mental Status: Mental status NL Assessment Assessment Problems Medical Problems: (1) Pneumonia Status: Acute IMPRESSION AND PLAN: 1. Macrocytic anemia. 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 He does not recall any further details. His B12 and TSH were normal in 07/2018. I will proceed with a bone marrow aspiration and biopsy to evaluate for myelodysplastic syndrome. The fluctuation seen in his platelet count is likely due to infections which would worsen his platelet counts and it gets better once the infection resolves. However, that would not explain the elevated MCV. Further workup with a bone marrow biopsy would be helpful to evaluate for myelodysplastic syndrome. s/p biopsy 10/02/18. He will f/u in 3-4 weeks for results. 2. Thrombocytopenia, chronic, with periods of normal platelet counts in between. s/p bone marrow biopsy as described above. Plt 79 3. Leukopenia reactive due to underlying sepsis. Monitor. 3.7 4. Sepsis. Appreciate ID consultation. Comment Review of Relevant I have reviewed the following items sarah (where applicable) has been applied. Labs Laboratory Tests Test 10/01/18 10:37 10/01/18 16:36 10/01/18 20:06 10/02/18 05:30 Glucose (Fingerstick) 321 mg/dL (70-99) 188 mg/dL (70-99) 174 mg/dL (70-99) White Blood Count 3.6 x10^3/uL (4.0-11.0) Red Blood Count 2.43 x10^6/uL (4.30-5.70) Hemoglobin 9.1 g/dL (13.0-17.5) Hematocrit 26.8 % (39.0-53.0) Mean Corpuscular Volume 110 fL (79-100) Mean Corpuscular Hemoglobin 37 pg (25-35) Mean Corpuscular Hemoglobin Concent 34 g/dL (31-37) Red Cell Distribution Width 15.8 % (11.5-14.5) Platelet Count 84 x10^3/uL (140-400) Neutrophils (%) (Auto) 61 % (31-73) Lymphocytes (%) (Auto) 22 % (24-48) Monocytes (%) (Auto) 14 % (0-9) Eosinophils (%) (Auto) 3 % (0-3) Basophils (%) (Auto) 1 % (0-3) Neutrophils # (Auto) 2.2 x10^3uL (1.8-7.7) Lymphocytes # (Auto) 0.8 x10^3/uL (1.0-4.8) Monocytes # (Auto) 0.5 x10^3/uL (0.0-1.1) Eosinophils # (Auto) 0.1 x10^3/uL (0.0-0.7) Basophils # (Auto) 0.0 x10^3/uL (0.0-0.2) Sodium Level 136 mmol/L (136-145) Potassium Level 4.0 mmol/L (3.5-5.1) Chloride Level 96 mmol/L (98-107) Carbon Dioxide Level 25 mmol/L (21-32) Anion Gap 15 (6-14) Blood Urea Nitrogen 38 mg/dL (8-26) Creatinine 5.4 mg/dL (0.7-1.3) Estimated GFR (Cockcroft-Gault) 10.2 Glucose Level 195 mg/dL (70-99) Calcium Level 8.7 mg/dL (8.5-10.1) Test 10/02/18 07:01 10/02/18 12:16 10/02/18 17:21 10/02/18 20:59 Glucose (Fingerstick) 208 mg/dL (70-99) 173 mg/dL (70-99) 268 mg/dL (70-99) 258 mg/dL (70-99) Test 10/03/18 04:25 10/03/18 07:39 White Blood Count 3.7 x10^3/uL (4.0-11.0) Red Blood Count 2.43 x10^6/uL (4.30-5.70) Hemoglobin 9.0 g/dL (13.0-17.5) Hematocrit 26.7 % (39.0-53.0) Mean Corpuscular Volume 110 fL (79-100) Mean Corpuscular Hemoglobin 37 pg (25-35) Mean Corpuscular Hemoglobin Concent 34 g/dL (31-37) Red Cell Distribution Width 16.4 % (11.5-14.5) Platelet Count 79 x10^3/uL (140-400) Neutrophils (%) (Auto) 61 % (31-73) Lymphocytes (%) (Auto) 22 % (24-48) Monocytes (%) (Auto) 14 % (0-9) Eosinophils (%) (Auto) 2 % (0-3) Basophils (%) (Auto) 1 % (0-3) Neutrophils # (Auto) 2.3 x10^3uL (1.8-7.7) Lymphocytes # (Auto) 0.8 x10^3/uL (1.0-4.8) Monocytes # (Auto) 0.5 x10^3/uL (0.0-1.1) Eosinophils # (Auto) 0.1 x10^3/uL (0.0-0.7) Basophils # (Auto) 0.0 x10^3/uL (0.0-0.2) Sodium Level 135 mmol/L (136-145) Potassium Level 4.4 mmol/L (3.5-5.1) Chloride Level 96 mmol/L (98-107) Carbon Dioxide Level 25 mmol/L (21-32) Anion Gap 14 (6-14) Blood Urea Nitrogen 43 mg/dL (8-26) Creatinine 6.4 mg/dL (0.7-1.3) Estimated GFR (Cockcroft-Gault) 8.4 Glucose Level 228 mg/dL (70-99) Calcium Level 9.0 mg/dL (8.5-10.1) Glucose (Fingerstick) 254 mg/dL (70-99) Laboratory Tests Test 10/02/18 12:16 10/02/18 17:21 10/02/18 20:59 10/03/18 04:25 Glucose (Fingerstick) 173 mg/dL (70-99) 268 mg/dL (70-99) 258 mg/dL (70-99) White Blood Count 3.7 x10^3/uL (4.0-11.0) Red Blood Count 2.43 x10^6/uL (4.30-5.70) Hemoglobin 9.0 g/dL (13.0-17.5) Hematocrit 26.7 % (39.0-53.0) Mean Corpuscular Volume 110 fL (79-100) Mean Corpuscular Hemoglobin 37 pg (25-35) Mean Corpuscular Hemoglobin Concent 34 g/dL (31-37) Red Cell Distribution Width 16.4 % (11.5-14.5) Platelet Count 79 x10^3/uL (140-400) Neutrophils (%) (Auto) 61 % (31-73) Lymphocytes (%) (Auto) 22 % (24-48) Monocytes (%) (Auto) 14 % (0-9) Eosinophils (%) (Auto) 2 % (0-3) Basophils (%) (Auto) 1 % (0-3) Neutrophils # (Auto) 2.3 x10^3uL (1.8-7.7) Lymphocytes # (Auto) 0.8 x10^3/uL (1.0-4.8) Monocytes # (Auto) 0.5 x10^3/uL (0.0-1.1) Eosinophils # (Auto) 0.1 x10^3/uL (0.0-0.7) Basophils # (Auto) 0.0 x10^3/uL (0.0-0.2) Sodium Level 135 mmol/L (136-145) Potassium Level 4.4 mmol/L (3.5-5.1) Chloride Level 96 mmol/L (98-107) Carbon Dioxide Level 25 mmol/L (21-32) Anion Gap 14 (6-14) Blood Urea Nitrogen 43 mg/dL (8-26) Creatinine 6.4 mg/dL (0.7-1.3) Estimated GFR (Cockcroft-Gault) 8.4 Glucose Level 228 mg/dL (70-99) Calcium Level 9.0 mg/dL (8.5-10.1) Test 10/03/18 07:39 Glucose (Fingerstick) 254 mg/dL (70-99) Microbiology 09/25/18 Blood Culture - Final, Complete NO GROWTH AFTER 5 DAYS Medications Current Medications Naloxone HCl (Narcan) 0.2 mg 1X ONCE IV Last administered on 09/25/18at 08:47 ; Start 09/25/18 at 08:45; Stop 09/25/18 at 08:46; Status DC Sodium Chloride 500 ml @ 500 mls/hr 1X ONCE IV Last administered on at 08:49; Start 09/25/18 at 08:45; Stop 09/25/18 at 09:44; Status DC Vancomycin HCl (Vanco Per Pharmacy) 1 each PRN DAILY PRN MC SEE COMMENTS Last administered on 09/28/18at 13:20; Start 09/25/18 at 09:30; Stop 09/29/18 at 15: 07; Status DC Piperacillin Sod/ Tazobactam Sod (Zosyn Per Pharmacy) 1 each PRN DAILY PRN MC SEE COMMENTS; Start 09/25/18 at 09:30; Stop 10/02/18 at 13:51; Status DC Piperacillin Sod/ Tazobactam Sod 2.25 gm/Sodium Chloride 50 ml @ 100 mls/hr 1X ONCE IV Last administered on 09/25/18at 09:48; Start 09/25/18 at 09:30; Stop 09/25/18 at 09:59; Status DC Vancomycin HCl 1.75 gm/Sodium Chloride 500 ml @ 250 mls/hr 1X ONCE IV Last administered on 09/25/18at 10:25; Start 09/25/18 at 09:45; Stop 09/25/18 at 11 :44; Status DC Sodium Chloride 500 ml @ 500 mls/hr 1X ONCE IV Last administered on at 09:48; Start 09/25/18 at 09:45; Stop 09/25/18 at 10:44; Status DC Sodium Chloride 500 ml @ 500 mls/hr 1X ONCE IV Last administered on at 11:16; Start 09/25/18 at 10:30; Stop 09/25/18 at 11:29; Status DC Norepinephrine Bitartrate 250 ml @ 0 mls/hr 1X ONCE IV Last administered on at 11:13; Start 09/25/18 at 10:30; Stop 09/25/18 at 14:39; Status DC Lidocaine HCl (Lidocaine 1% 20ml Vial) 20 ml STK-MED ONCE .ROUTE ; Start at 10:41; Stop 09/25/18 at 10:42; Status DC Vasopressin 40 unit/Dextrose 102 ml @ 6 mls/hr CONT PRN IV SEE I/O RECORD Last administered on 09/26/18at 04:12; Start 09/25/18 at 13:15; Stop 09/27/18 at 16 :31; Status DC Norepinephrine Bitartrate 250 ml @ 9.375 mls/ hr CONT PRN IV SEE I/O RECORD Last administered on 09/25/18at 19:33; Start 09/25/18 at 14:45; Stop 09/27/18 at 16:31; Status DC Piperacillin Sod/ Tazobactam Sod 2.25 gm/Sodium Chloride 50 ml @ 100 mls/hr Q8HRS IV Last administered on 10/02/18at 05:27; Start 09/25/18 at 16:00; Stop 10/02/18 at 13:51; Status DC Vancomycin HCl (Vancomycin Random Level) 1 each 1X ONCE MC Last administered on 09/26/18at 05:35; Start 09/26/18 at 06:00; Stop 09/26/18 at 06:02; Status DC Acetaminophen (Tylenol) 650 mg PRN Q6HRS PRN PO FEVER Last administered on 09/30at 05:11; Start 09/25/18 at 16:30 Ondansetron HCl (Zofran) 4 mg PRN Q6HRS PRN IV NAUSEA/VOMITING; Start at 16:30 Docusate Sodium (Colace) 100 mg PRN DAILY PRN PO CONSTIPATION; Start 09/25/18 at 16:30 Sodium Chloride 1,000 ml @ 75 mls/hr [id number] IV Last administered on at 05:51; Start 09/25/18 at 16:30; Stop 09/26/18 at 18:58; Status DC Famotidine (Pepcid Vial) 20 mg Q48H IVP Last administered on 09/29/18at 20:30; Start 09/25/18 at 21:00; Stop 10/01/18 at 14:42; Status DC Heparin Sodium (Porcine) (Heparin Sodium) 5,000 unit Q8HRS SQ Last administered on 09/30/18at 05:21; Start 09/25/18 at 22:00; Stop 09/30/18 at 15: 30; Status DC Insulin Human Lispro (HumaLOG) 0-7 UNITS TIDWMEALS SQ Last administered on 10/03at 08:54; Start 09/25/18 at 17:00 Dextrose (Dextrose 50%-Water Syringe) 12.5 gm PRN Q15MIN PRN IV SEE COMMENTS; Start 09/25/18 at 16:30 Albuterol/ Ipratropium (Duoneb) 3 ml RTQID NEB Last administered on 10/03/18at 06:19; Start 09/25/18 at 20:00 Albuterol Sulfate (Ventolin Neb Soln) 2.5 mg PRN Q2HR PRN NEB SHORTNESS OF BREATH; Start 09/25/18 at 16:30 Guaifenesin (Mucinex) 600 mg BID PO Last administered on 10/02/18at 20:18; Start 09/25/18 at 21:00 Sodium Chloride 1,000 ml @ 1,000 mls/hr Q1H PRN IV hypotension; Start at 06:43; Stop 09/26/18 at 12:42; Status DC Albumin Human 200 ml @ 200 mls/hr 1X PRN PRN IV Hypotension; Start 09/26/18 at 06:45; Stop 09/26/18 at 12:54; Status DC Sodium Chloride (Normal Saline Flush) 10 ml 1X PRN PRN IV AP 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; Start 09/26/18 at 06:45; Stop 09/27/18 at 06:44; Status DC Sodium Chloride (Normal Saline Flush) 10 ml 1X PRN PRN IV [employer] 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; Start 09/26/18 at 06:45; Stop 09/27/18 at 06:44; Status DC Sodium Chloride 1,000 ml @ 400 mls/hr Q2H30M PRN IV PATENCY; Start 09/26/18 at 06:43; Stop 09/26/18 at 18:42; Status DC Info (PHARMACY MONITORING -- do not chart) 1 each PRN DAILY PRN MC SEE COMMENTS ; Start 09/26/18 at 06:45; Status UNV Info (PHARMACY MONITORING -- do not chart) 1 each PRN DAILY PRN MC SEE COMMENTS ; Start 09/26/18 at 06:45 Vancomycin HCl 500 mg/Sodium Chloride 100 ml @ 100 mls/hr TuThSa IV Last administered on 09/28/18at 16:13; Start 09/26/18 at 16:00; Stop 09/29/18 at 15: 07; Status DC Lactobacillus Rhamnosus (Culturelle) 1 cap BID PO Last administered on at 20:18; Start 09/27/18 at 21:00 Sodium Chloride 1,000 ml @ 1,000 mls/hr Q1H PRN IV hypotension; Start 09/28/18 at 10:34; Stop 09/28/18 at 16:33; Status DC Sodium Chloride 1,000 ml @ 400 mls/hr Q2H30M PRN IV PATENCY; Start 09/28/18 at 10:34; Stop 09/28/18 at 22:33; Status DC Info (PHARMACY MONITORING -- do not chart) 1 each PRN DAILY PRN MC SEE COMMENTS ; Start 09/28/18 at 10:45; Status UNV Info (PHARMACY MONITORING -- do not chart) 1 each PRN DAILY PRN MC SEE COMMENTS ; Start 09/28/18 at 10:45; Status Cancel Albumin Human 200 ml @ 200 mls/hr 1X ONCE IV Last administered on 09/28/18at 12:26; Start 09/28/18 at 12:15; Stop 09/28/18 at 13:14; Status DC Haloperidol (Haldol) 0.5 mg 1X ONCE PO Last administered on 09/29/18at 02:51; Start 09/29/18 at 02:45; Stop 09/29/18 at 02:46; Status DC Alprazolam (Xanax) 0.25 mg PRN QHS PRN PO ANXIETY / AGITATION Last administered on 10/02/18at 20:20; Start 09/29/18 at 02:45 Oxycodone/ Acetaminophen (Percocet 5/325) 1 tab PRN Q6HRS PRN PO PAIN Last administered on 10/03/18at 01:31; Start 09/29/18 at 02:45 Sodium Chloride 1,000 ml @ 1,000 mls/hr Q1HR PRN IV hypotension Last administered on 09/29/18at 08:35; Start 09/29/18 at 08:15 Risperidone (RisperDAL) 0.5 mg 1X ONCE PO Last administered on 09/30/18at 00:22 ; Start 09/30/18 at 00:15; Stop 09/30/18 at 00:16; Status DC Sodium Chloride 1,000 ml @ 1,000 mls/hr Q1H PRN IV hypotension; Start 09/30/18 at 10:31; Stop 09/30/18 at 16:30; Status DC Sodium Chloride 1,000 ml @ 400 mls/hr Q2H30M PRN IV PATENCY; Start 09/30/18 at 10:31; Stop 09/30/18 at 22:30; Status DC Info (PHARMACY MONITORING -- do not chart) 1 each PRN DAILY PRN MC SEE COMMENTS ; Start 09/30/18 at 10:45; Stop 09/30/18 at 10:45; Status DC Info (PHARMACY MONITORING -- do not chart) 1 each PRN DAILY PRN MC SEE COMMENTS ; Start 09/30/18 at 10:45; Stop 09/30/18 at 10:45; Status DC Famotidine (Pepcid) 20 mg Q48H PO Last administered on 10/01/18at 20:14; Start 10/01/18 at 21:00 Lidocaine/Sodium Bicarbonate (Buffered Lidocaine 1%) 3 ml STK-MED ONCE .ROUTE ; Start 10/02/18 at 08:36; Stop 10/02/18 at 08:37; Status DC Midazolam HCl (Versed) 2 mg STK-MED ONCE .ROUTE ; Start 10/02/18 at 08:37; Stop 10/02/18 at 08:38; Status DC Fentanyl Citrate (Fentanyl 2ml Vial) 100 mcg STK-MED ONCE .ROUTE ; Start at 08:37; Stop 10/02/18 at 08:38; Status DC Lidocaine/Sodium Bicarbonate (Buffered Lidocaine 1%) 9 ml 1X ONCE IJ Last administered on 10/02/18at 09:12; Start 10/02/18 at 09:15; Stop 10/02/18 at 09:19 ; Status DC Midazolam HCl (Versed) 2 mg 1X ONCE IV Last administered on 10/02/18at 09:12; Start 10/02/18 at 09:15; Stop 10/02/18 at 09:19; Status DC Fentanyl Citrate (Fentanyl 2ml Vial) 50 mcg 1X ONCE IV Last administered on at 09:12; Start 10/02/18 at 09:15; Stop 10/02/18 at 09:19; Status DC Amoxicillin/ Clavulanate Potassium (Augmentin 500/ 125mg) 1 tab DAILY PO Last administered on 10/02/18at 17:31; Start 10/02/18 at 14:00 Active Scripts Active Humalog (Insulin Lispro) 100 Unit/1 Ml Insuln.pen 10 Units SQ TIDWMEALS 30 Days Haloperidol 2 Mg Tablet 0.5 Tab PO Q12HR Lantus Solostar (Insulin Glargine,Hum.rec.anlog) 100 Unit/1 Ml Insuln.pen 24 Unit SQ QHS 30 Days Alprazolam 0.5 Mg Tablet 1 Tab PO HS PRN Reported Tamsulosin Hcl 0.4 Mg Cap.er.24h 0.8 Mg PO DAILY Spironolactone 25 Mg Tablet 1 Tab PO DAILY Senokot (Sennosides) 8.6 Mg Tablet 1 Tab PO BID Requip (Ropinirole Hcl) 1 Mg Tablet 1 Tab PO QHS Lyrica (Pregabalin) 75 Mg Capsule 1 Cap PO BID Super Enzyme Caps (Pancreat/Bet Hcl/Pep/Brom/Pap) 1 Each Capsule 4 Cap PO QID Magnesium Oxide 400 Mg Tablet 1 Tab PO DAILY Gemfibrozil 600 Mg Tablet 1 Tab PO BIDWMEALS Folic Acid 1 Mg Tablet 1 Tab PO DAILY Fish Oil 1,000 Mg Capsule ([place]-3 Fatty Acids/Fish Oil) 1 Each Capsule 2,000 Each PO BID Cyclobenzaprine Hcl 10 Mg Tablet 1 Tab PO BID Irina Elias 6,000 Units Capsule (Lipase/Protease/Amylase) 1 Each Capsule. 1 Each PO QID Vitamin D3 (Cholecalciferol (Vitamin D3)) 1,000 Unit Tablet 3 Tab PO DAILY Aspirin Ec (Aspirin) 81 Mg Tablet. 1 Tab PO DAILY Acetaminophen 500 Mg Tablet 1,000 Mg PO PRN DAILY PRN Midodrine Hcl 5 Mg Tablet 5 Mg PO 3X/WEEK Hydroxyzine Hcl 25 Mg Tablet 25 Mg PO QID Calcium Acetate 667 Mg Tablet 2 Cap PO BIDAC Prevalite Packet (Cholestyramine/Aspartame) 4 Gm Powd.pack 4 Gm PO BID Toprol Xl (Metoprolol Succinate) 25 Mg Tab.er.24h 1 Tab PO DAILY Furosemide 40 Mg Tablet 2 Tab PO DAILY Diltiazem 24HR Cd (Diltiazem Hcl) 120 Mg Cap.er.24h 1 Cap PO DAILY Percocet 5-325 Mg Tablet (Oxycodone/Acetaminophen) 1 Each Tablet 1 Tab PO QID Humalog (Insulin Lispro) 100 Unit/1 Ml Cartridge 8 Unit SQ TIDAC Prilosec Otc (Omeprazole Magnesium) 20 Mg Tablet.dr 20 Mg PO DAILY Vitals/I & O Vital Sign - Last 24 Hours 10/02/18 10/02/18 10/02/18 10/02/18 09:12 09:13 11:00 11:04 Temp 98.0 98.0 Pulse 112 100 Resp 18 18 20 B/P (MAP) 122/72 (89) Pulse Ox 98 98 97 97 O2 Delivery Nasal Cannula Nasal Cannula Nasal Cannula Nasal Cannula O2 Flow Rate 3.0 3.0 3.0 2.0 10/02/18 10/02/18 10/02/18 10/02/18 15:00 15:10 18:25 19:10 Temp 98.2 97.5 98.2 97.5 Pulse 100 119 Resp 20 B/P (MAP) 122/72 (89) 121/85 (97) Pulse Ox 97 98 100 O2 Delivery Nasal Cannula Nasal Cannula Nasal Cannula Nasal Cannula O2 Flow Rate 3.0 2.0 2.0 3.0 10/02/18 10/02/18 10/03/18 10/03/18 20:10 23:10 03:30 06:19 Temp 97.9 97.5 97.9 97.5 Pulse 96 101 Resp 18 18 B/P (MAP) 142/62 (88) 122/50 (74) Pulse Ox 98 99 98 O2 Delivery Nasal Cannula Nasal Cannula Nasal Cannula Nasal Cannula O2 Flow Rate 2.0 3.0 3.0 2.0 10/03/18 07:05 Temp 97.6 97.6 Pulse 103 Resp 20 B/P (MAP) 107/66 (80) Pulse Ox 100 O2 Delivery Nasal Cannula O2 Flow Rate 3.0 Intake and Output 10/02/18 10/02/18 10/03/18 15:00 23:00 07:00 Intake Total 100 ml Output Total 25 ml Balance -25 ml 100 ml DERREK PAYAN MD Oct 03, 2018 09:12
--- NOTE | 2018-10-03 09:17 | PDOC ---
PROGRESS NOTES Chief Complaint Chief Complaint Acute respiratory failure Sepsis/ septic shock, secondary to pneumonia Coronary artery disease with previous coronary artery bypass grafting Acute metabolic toxic encephalopathy, present upon admission Protein malnutrition present upon admission Status post pacemaker Peripheral vascular disease Abnormal cxr with LLL infiltrate/ effusion Hyperkalemia, resolved PANCYTOPENIA TO SNF WHEN OK WITH ID/HEME d/c zosyn, augmentin for 2 days RETIC, HAPTOGLOBIN FE/TIBC History of Present Illness History of Present Illness Pt seen and examined Sitting in chair, calm, cooperative, oxygen via nasal cannula Discussed with RN at bedside Vitals Vitals Vital Signs Date Time Temp Pulse Resp B/P (MAP) Pulse Ox O2 Delivery O2 Flow Rate FiO2 10/03/18 07:05 97.6 103 20 107/66 (80) 100 Nasal Cannula 3.0 97.6 Physical Exam Physical Exam GENERAL: Resting quietly, NAD. Smiled LUNGS: Decreased aeration, nonlabored HEART: S1, S2 ABDOMEN: Obese, BS active, soft, nontender EXTREMITIES: Trace edema BLE, LUE-AV fistula site looks unremarkable. SKIN: Warm, dry. No generalized rash. 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, [facility] without signs of complications General: Alert, Oriented X3, Cooperative, No acute distress Heart: Normal S1, Normal S2 Lungs: Clear Abdomen: Soft, No tenderness, No masses Extremities: No clubbing, No cyanosis, No edema Skin: No rashes, No breakdown Labs LABS Laboratory Tests Test 10/02/18 12:16 10/02/18 17:21 10/02/18 20:59 10/03/18 04:25 Glucose (Fingerstick) 173 mg/dL (70-99) 268 mg/dL (70-99) 258 mg/dL (70-99) White Blood Count 3.7 x10^3/uL (4.0-11.0) Red Blood Count 2.43 x10^6/uL (4.30-5.70) Hemoglobin 9.0 g/dL (13.0-17.5) Hematocrit 26.7 % (39.0-53.0) Mean Corpuscular Volume 110 fL (79-100) Mean Corpuscular Hemoglobin 37 pg (25-35) Mean Corpuscular Hemoglobin Concent 34 g/dL (31-37) Red Cell Distribution Width 16.4 % (11.5-14.5) Platelet Count 79 x10^3/uL (140-400) Neutrophils (%) (Auto) 61 % (31-73) Lymphocytes (%) (Auto) 22 % (24-48) Monocytes (%) (Auto) 14 % (0-9) Eosinophils (%) (Auto) 2 % (0-3) Basophils (%) (Auto) 1 % (0-3) Neutrophils # (Auto) 2.3 x10^3uL (1.8-7.7) Lymphocytes # (Auto) 0.8 x10^3/uL (1.0-4.8) Monocytes # (Auto) 0.5 x10^3/uL (0.0-1.1) Eosinophils # (Auto) 0.1 x10^3/uL (0.0-0.7) Basophils # (Auto) 0.0 x10^3/uL (0.0-0.2) Sodium Level 135 mmol/L (136-145) Potassium Level 4.4 mmol/L (3.5-5.1) Chloride Level 96 mmol/L (98-107) Carbon Dioxide Level 25 mmol/L (21-32) Anion Gap 14 (6-14) Blood Urea Nitrogen 43 mg/dL (8-26) Creatinine 6.4 mg/dL (0.7-1.3) Estimated GFR (Cockcroft-Gault) 8.4 Glucose Level 228 mg/dL (70-99) Calcium Level 9.0 mg/dL (8.5-10.1) Test 10/03/18 07:39 Glucose (Fingerstick) 254 mg/dL (70-99) Assessment and Plan Assessmemt and Plan Problems Medical Problems: (1) Pneumonia Status: Acute Comment Review of Relevant I have reviewed the following items sarah (where applicable) has been applied. Labs Laboratory Tests Test 10/01/18 10:37 10/01/18 16:36 10/01/18 20:06 10/02/18 05:30 Glucose (Fingerstick) 321 mg/dL (70-99) 188 mg/dL (70-99) 174 mg/dL (70-99) White Blood Count 3.6 x10^3/uL (4.0-11.0) Red Blood Count 2.43 x10^6/uL (4.30-5.70) Hemoglobin 9.1 g/dL (13.0-17.5) Hematocrit 26.8 % (39.0-53.0) Mean Corpuscular Volume 110 fL (79-100) Mean Corpuscular Hemoglobin 37 pg (25-35) Mean Corpuscular Hemoglobin Concent 34 g/dL (31-37) Red Cell Distribution Width 15.8 % (11.5-14.5) Platelet Count 84 x10^3/uL (140-400) Neutrophils (%) (Auto) 61 % (31-73) Lymphocytes (%) (Auto) 22 % (24-48) Monocytes (%) (Auto) 14 % (0-9) Eosinophils (%) (Auto) 3 % (0-3) Basophils (%) (Auto) 1 % (0-3) Neutrophils # (Auto) 2.2 x10^3uL (1.8-7.7) Lymphocytes # (Auto) 0.8 x10^3/uL (1.0-4.8) Monocytes # (Auto) 0.5 x10^3/uL (0.0-1.1) Eosinophils # (Auto) 0.1 x10^3/uL (0.0-0.7) Basophils # (Auto) 0.0 x10^3/uL (0.0-0.2) Sodium Level 136 mmol/L (136-145) Potassium Level 4.0 mmol/L (3.5-5.1) Chloride Level 96 mmol/L (98-107) Carbon Dioxide Level 25 mmol/L (21-32) Anion Gap 15 (6-14) Blood Urea Nitrogen 38 mg/dL (8-26) Creatinine 5.4 mg/dL (0.7-1.3) Estimated GFR (Cockcroft-Gault) 10.2 Glucose Level 195 mg/dL (70-99) Calcium Level 8.7 mg/dL (8.5-10.1) Test 10/02/18 07:01 10/02/18 12:16 10/02/18 17:21 10/02/18 20:59 Glucose (Fingerstick) 208 mg/dL (70-99) 173 mg/dL (70-99) 268 mg/dL (70-99) 258 mg/dL (70-99) Test 11/6/18 04:25 10/03/18 07:39 White Blood Count 3.7 x10^3/uL (4.0-11.0) Red Blood Count 2.43 x10^6/uL (4.30-5.70) Hemoglobin 9.0 g/dL (13.0-17.5) Hematocrit 26.7 % (39.0-53.0) Mean Corpuscular Volume 110 fL (79-100) Mean Corpuscular Hemoglobin 37 pg (25-35) Mean Corpuscular Hemoglobin Concent 34 g/dL (31-37) Red Cell Distribution Width 16.4 % (11.5-14.5) Platelet Count 79 x10^3/uL (140-400) Neutrophils (%) (Auto) 61 % (31-73) Lymphocytes (%) (Auto) 22 % (24-48) Monocytes (%) (Auto) 14 % (0-9) Eosinophils (%) (Auto) 2 % (0-3) Basophils (%) (Auto) 1 % (0-3) Neutrophils # (Auto) 2.3 x10^3uL (1.8-7.7) Lymphocytes # (Auto) 0.8 x10^3/uL (1.0-4.8) Monocytes # (Auto) 0.5 x10^3/uL (0.0-1.1) Eosinophils # (Auto) 0.1 x10^3/uL (0.0-0.7) Basophils # (Auto) 0.0 x10^3/uL (0.0-0.2) Sodium Level 135 mmol/L (136-145) Potassium Level 4.4 mmol/L (3.5-5.1) Chloride Level 96 mmol/L (98-107) Carbon Dioxide Level 25 mmol/L (21-32) Anion Gap 14 (6-14) Blood Urea Nitrogen 43 mg/dL (8-26) Creatinine 6.4 mg/dL (0.7-1.3) Estimated GFR (Cockcroft-Gault) 8.4 Glucose Level 228 mg/dL (70-99) Calcium Level 9.0 mg/dL (8.5-10.1) Glucose (Fingerstick) 254 mg/dL (70-99) Laboratory Tests Test 10/02/18 12:16 10/02/18 17:21 10/02/18 20:59 10/03/18 04:25 Glucose (Fingerstick) 173 mg/dL (70-99) 268 mg/dL (70-99) 258 mg/dL (70-99) White Blood Count 3.7 x10^3/uL (4.0-11.0) Red Blood Count 2.43 x10^6/uL (4.30-5.70) Hemoglobin 9.0 g/dL (13.0-17.5) Hematocrit 26.7 % (39.0-53.0) Mean Corpuscular Volume 110 fL (79-100) Mean Corpuscular Hemoglobin 37 pg (25-35) Mean Corpuscular Hemoglobin Concent 34 g/dL (31-37) Red Cell Distribution Width 16.4 % (11.5-14.5) Platelet Count 79 x10^3/uL (140-400) Neutrophils (%) (Auto) 61 % (31-73) Lymphocytes (%) (Auto) 22 % (24-48) Monocytes (%) (Auto) 14 % (0-9) Eosinophils (%) (Auto) 2 % (0-3) Basophils (%) (Auto) 1 % (0-3) Neutrophils # (Auto) 2.3 x10^3uL (1.8-7.7) Lymphocytes # (Auto) 0.8 x10^3/uL (1.0-4.8) Monocytes # (Auto) 0.5 x10^3/uL (0.0-1.1) Eosinophils # (Auto) 0.1 x10^3/uL (0.0-0.7) Basophils # (Auto) 0.0 x10^3/uL (0.0-0.2) Sodium Level 135 mmol/L (136-145) Potassium Level 4.4 mmol/L (3.5-5.1) Chloride Level 96 mmol/L (98-107) Carbon Dioxide Level 25 mmol/L (21-32) Anion Gap 14 (6-14) Blood Urea Nitrogen 43 mg/dL (8-26) Creatinine 6.4 mg/dL (0.7-1.3) Estimated GFR (Cockcroft-Gault) 8.4 Glucose Level 228 mg/dL (70-99) Calcium Level 9.0 mg/dL (8.5-10.1) Test 10/03/18 07:39 Glucose (Fingerstick) 254 mg/dL (70-99) Microbiology 09/25/18 Blood Culture - Final, Complete NO GROWTH AFTER 5 DAYS Medications Current Medications Naloxone HCl (Narcan) 0.2 mg 1X ONCE IV Last administered on 09/25/18at 08:47 ; Start 09/25/18 at 08:45; Stop 09/25/18 at 08:46; Status DC Sodium Chloride 500 ml @ 500 mls/hr 1X ONCE IV Last administered on at 08:49; Start 09/25/18 at 08:45; Stop 09/25/18 at 09:44; Status DC Vancomycin HCl (Vanco Per Pharmacy) 1 each PRN DAILY PRN MC SEE COMMENTS Last administered on 09/28/18at 13:20; Start 09/25/18 at 09:30; Stop 09/29/18 at 15: 07; Status DC Piperacillin Sod/ Tazobactam Sod (Zosyn Per Pharmacy) 1 each PRN DAILY PRN MC SEE COMMENTS; Start 09/25/18 at 09:30; Stop 10/02/18 at 13:51; Status DC Piperacillin Sod/ Tazobactam Sod 2.25 gm/Sodium Chloride 50 ml @ 100 mls/hr 1X ONCE IV Last administered on 09/25/18at 09:48; Start 09/25/18 at 09:30; Stop 09/25/18 at 09:59; Status DC Vancomycin HCl 1.75 gm/Sodium Chloride 500 ml @ 250 mls/hr 1X ONCE IV Last administered on 09/25/18at 10:25; Start 09/25/18 at 09:45; Stop 09/25/18 at 11 :44; Status DC Sodium Chloride 500 ml @ 500 mls/hr 1X ONCE IV Last administered on at 09:48; Start 09/25/18 at 09:45; Stop 09/25/18 at 10:44; Status DC Sodium Chloride 500 ml @ 500 mls/hr 1X ONCE IV Last administered on at 11:16; Start 09/25/18 at 10:30; Stop 09/25/18 at 11:29; Status DC Norepinephrine Bitartrate 250 ml @ 0 mls/hr 1X ONCE IV Last administered on at 11:13; Start 09/25/18 at 10:30; Stop 09/25/18 at 14:39; Status DC Lidocaine HCl (Lidocaine 1% 20ml Vial) 20 ml STK-MED ONCE .ROUTE ; Start at 10:41; Stop 09/25/18 at 10:42; Status DC Vasopressin 40 unit/Dextrose 102 ml @ 6 mls/hr CONT PRN IV SEE I/O RECORD Last administered on 09/26/18at 04:12; Start 09/25/18 at 13:15; Stop 09/27/18 at 16 :31; Status DC Norepinephrine Bitartrate 250 ml @ 9.375 mls/ hr CONT PRN IV SEE I/O RECORD Last administered on 09/25/18at 19:33; Start 09/25/18 at 14:45; Stop 09/27/18 at 16:31; Status DC Piperacillin Sod/ Tazobactam Sod 2.25 gm/Sodium Chloride 50 ml @ 100 mls/hr Q8HRS IV Last administered on 10/02/18at 05:27; Start 09/25/18 at 16:00; Stop 10/02/18 at 13:51; Status DC Vancomycin HCl (Vancomycin Random Level) 1 each 1X ONCE MC Last administered on 09/26/18at 05:35; Start 09/26/18 at 06:00; Stop 09/26/18 at 06:02; Status DC Acetaminophen (Tylenol) 650 mg PRN Q6HRS PRN PO FEVER Last administered on 09/30at 05:11; Start 09/25/18 at 16:30 Ondansetron HCl (Zofran) 4 mg PRN Q6HRS PRN IV NAUSEA/VOMITING; Start at 16:30 Docusate Sodium (Colace) 100 mg PRN DAILY PRN PO CONSTIPATION; Start 09/25/18 at 16:30 Sodium Chloride 1,000 ml @ 75 mls/hr [id number] IV Last administered on at 05:51; Start 09/25/18 at 16:30; Stop 09/26/18 at 18:58; Status DC Famotidine (Pepcid Vial) 20 mg Q48H IVP Last administered on 09/29/18at 20:30; Start 09/25/18 at 21:00; Stop 10/01/18 at 14:42; Status DC Heparin Sodium (Porcine) (Heparin Sodium) 5,000 unit Q8HRS SQ Last administered on 09/30/18at 05:21; Start 09/25/18 at 22:00; Stop 09/30/18 at 15: 30; Status DC Insulin Human Lispro (HumaLOG) 0-7 UNITS TIDWMEALS SQ Last administered on 10/03at 08:54; Start 09/25/18 at 17:00 Dextrose (Dextrose 50%-Water Syringe) 12.5 gm PRN Q15MIN PRN IV SEE COMMENTS; Start 09/25/18 at 16:30 Albuterol/ Ipratropium (Duoneb) 3 ml RTQID NEB Last administered on 10/03/18at 06:19; Start 09/25/18 at 20:00 Albuterol Sulfate (Ventolin Neb Soln) 2.5 mg PRN Q2HR PRN NEB SHORTNESS OF BREATH; Start 09/25/18 at 16:30 Guaifenesin (Mucinex) 600 mg BID PO Last administered on 10/02/18at 20:18; Start 09/25/18 at 21:00 Sodium Chloride 1,000 ml @ 1,000 mls/hr Q1H PRN IV hypotension; Start at 06:43; Stop 09/26/18 at 12:42; Status DC Albumin Human 200 ml @ 200 mls/hr 1X PRN PRN IV Hypotension; Start 09/26/18 at 06:45; Stop 09/26/18 at 12:54; Status DC Sodium Chloride (Normal Saline Flush) 10 ml 1X PRN PRN IV AP 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; Start 09/26/18 at 06:45; Stop 09/27/18 at 06:44; Status DC Sodium Chloride (Normal Saline Flush) 10 ml 1X PRN PRN IV MORNING SHOW PRODUCER 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; Start 09/26/18 at 06:45; Stop 09/27/18 at 06:44; Status DC Sodium Chloride 1,000 ml @ 400 mls/hr Q2H30M PRN IV PATENCY; Start 09/26/18 at 06:43; Stop 09/26/18 at 18:42; Status DC Info (PHARMACY MONITORING -- do not chart) 1 each PRN DAILY PRN MC SEE COMMENTS ; Start 09/26/18 at 06:45; Status UNV Info (PHARMACY MONITORING -- do not chart) 1 each PRN DAILY PRN MC SEE COMMENTS ; Start 09/26/18 at 06:45 Vancomycin HCl 500 mg/Sodium Chloride 100 ml @ 100 mls/hr TuThSa IV Last administered on 09/28/18at 16:13; Start 09/26/18 at 16:00; Stop 09/29/18 at 15: 07; Status DC Lactobacillus Rhamnosus (Culturelle) 1 cap BID PO Last administered on at 20:18; Start 09/27/18 at 21:00 Sodium Chloride 1,000 ml @ 1,000 mls/hr Q1H PRN IV hypotension; Start 09/28/18 at 10:34; Stop 09/28/18 at 16:33; Status DC Sodium Chloride 1,000 ml @ 400 mls/hr Q2H30M PRN IV PATENCY; Start 09/28/18 at 10:34; Stop 09/28/18 at 22:33; Status DC Info (PHARMACY MONITORING -- do not chart) 1 each PRN DAILY PRN MC SEE COMMENTS ; Start 09/28/18 at 10:45; Status UNV Info (PHARMACY MONITORING -- do not chart) 1 each PRN DAILY PRN MC SEE COMMENTS ; Start 09/28/18 at 10:45; Status Cancel Albumin Human 200 ml @ 200 mls/hr 1X ONCE IV Last administered on 09/28/18at 12:26; Start 09/28/18 at 12:15; Stop 09/28/18 at 13:14; Status DC Haloperidol (Haldol) 0.5 mg 1X ONCE PO Last administered on 09/29/18at 02:51; Start 09/29/18 at 02:45; Stop 09/29/18 at 02:46; Status DC Alprazolam (Xanax) 0.25 mg PRN QHS PRN PO ANXIETY / AGITATION Last administered on 10/02/18at 20:20; Start 09/29/18 at 02:45 Oxycodone/ Acetaminophen (Percocet 5/325) 1 tab PRN Q6HRS PRN PO PAIN Last administered on 10/03/18at 01:31; Start 09/29/18 at 02:45 Sodium Chloride 1,000 ml @ 1,000 mls/hr Q1HR PRN IV hypotension Last administered on 09/29/18at 08:35; Start 09/29/18 at 08:15 Risperidone (RisperDAL) 0.5 mg 1X ONCE PO Last administered on 09/30/18at 00:22 ; Start 09/30/18 at 00:15; Stop 09/30/18 at 00:16; Status DC Sodium Chloride 1,000 ml @ 1,000 mls/hr Q1H PRN IV hypotension; Start 09/30/18 at 10:31; Stop 09/30/18 at 16:30; Status DC Sodium Chloride 1,000 ml @ 400 mls/hr Q2H30M PRN IV PATENCY; Start 09/30/18 at 10:31; Stop 09/30/18 at 22:30; Status DC Info (PHARMACY MONITORING -- do not chart) 1 each PRN DAILY PRN MC SEE COMMENTS ; Start 09/30/18 at 10:45; Stop 09/30/18 at 10:45; Status DC Info (PHARMACY MONITORING -- do not chart) 1 each PRN DAILY PRN MC SEE COMMENTS ; Start 09/30/18 at 10:45; Stop 09/30/18 at 10:45; Status DC Famotidine (Pepcid) 20 mg Q48H PO Last administered on 10/01/18at 20:14; Start 10/01/18 at 21:00 Lidocaine/Sodium Bicarbonate (Buffered Lidocaine 1%) 3 ml STK-MED ONCE .ROUTE ; Start 10/02/18 at 08:36; Stop 10/02/18 at 08:37; Status DC Midazolam HCl (Versed) 2 mg STK-MED ONCE .ROUTE ; Start 10/02/18 at 08:37; Stop 10/02/18 at 08:38; Status DC Fentanyl Citrate (Fentanyl 2ml Vial) 100 mcg STK-MED ONCE .ROUTE ; Start at 08:37; Stop 10/02/18 at 08:38; Status DC Lidocaine/Sodium Bicarbonate (Buffered Lidocaine 1%) 9 ml 1X ONCE IJ Last administered on 10/02/18at 09:12; Start 10/02/18 at 09:15; Stop 10/02/18 at 09:19 ; Status DC Midazolam HCl (Versed) 2 mg 1X ONCE IV Last administered on 10/02/18at 09:12; Start 10/02/18 at 09:15; Stop 10/02/18 at 09:19; Status DC Fentanyl Citrate (Fentanyl 2ml Vial) 50 mcg 1X ONCE IV Last administered on at 09:12; Start 10/02/18 at 09:15; Stop 10/02/18 at 09:19; Status DC Amoxicillin/ Clavulanate Potassium (Augmentin 500/ 125mg) 1 tab DAILY PO Last administered on 10/02/18at 17:31; Start 10/02/18 at 14:00 Active Scripts Active Humalog (Insulin Lispro) 100 Unit/1 Ml Insuln.pen 10 Units SQ TIDWMEALS 30 Days Haloperidol 2 Mg Tablet 0.5 Tab PO Q12HR Lantus Solostar (Insulin Glargine,Hum.rec.anlog) 100 Unit/1 Ml Insuln.pen 24 Unit SQ QHS 30 Days Alprazolam 0.5 Mg Tablet 1 Tab PO HS PRN Reported Tamsulosin Hcl 0.4 Mg Cap.er.24h 0.8 Mg PO DAILY Spironolactone 25 Mg Tablet 1 Tab PO DAILY Senokot (Sennosides) 8.6 Mg Tablet 1 Tab PO BID Requip (Ropinirole Hcl) 1 Mg Tablet 1 Tab PO QHS Lyrica (Pregabalin) 75 Mg Capsule 1 Cap PO BID Super Enzyme Caps (Pancreat/Bet Hcl/Pep/Brom/Pap) 1 Each Capsule 4 Cap PO QID Magnesium Oxide 400 Mg Tablet 1 Tab PO DAILY Gemfibrozil 600 Mg Tablet 1 Tab PO BIDWMEALS Folic Acid 1 Mg Tablet 1 Tab PO DAILY Fish Oil 1,000 Mg Capsule (Grassflat-3 Fatty Acids/Fish Oil) 1 Each Capsule 2,000 Each PO BID Cyclobenzaprine Hcl 10 Mg Tablet 1 Tab PO BID Creon Dr 6,000 Units Capsule (Lipase/Protease/Amylase) 1 Each Capsule.dr 1 Each PO QID Vitamin D3 (Cholecalciferol (Vitamin D3)) 1,000 Unit Tablet 3 Tab PO DAILY Aspirin Ec (Aspirin) 81 Mg Tablet.dr 1 Tab PO DAILY Acetaminophen 500 Mg Tablet 1,000 Mg PO PRN DAILY PRN Midodrine Hcl 5 Mg Tablet 5 Mg PO 3X/WEEK Hydroxyzine Hcl 25 Mg Tablet 25 Mg PO QID Calcium Acetate 667 Mg Tablet 2 Cap PO BIDAC Prevalite Packet (Cholestyramine/Aspartame) 4 Gm Powd.pack 4 Gm PO BID Toprol Xl (Metoprolol Succinate) 25 Mg Tab.er.24h 1 Tab PO DAILY Furosemide 40 Mg Tablet 2 Tab PO DAILY Diltiazem 24HR Cd (Diltiazem Hcl) 120 Mg Cap.er.24h 1 Cap PO DAILY Percocet 5-325 Mg Tablet (Oxycodone/Acetaminophen) 1 Each Tablet 1 Tab PO QID Humalog (Insulin Lispro) 100 Unit/1 Ml Cartridge 8 Unit SQ TIDAC Prilosec Otc (Omeprazole Magnesium) 20 Mg Tablet.dr 20 Mg PO DAILY Vitals/I & O Vital Sign - Last 24 Hours 10/02/18 10/02/18 10/02/18 10/02/18 11:00 11:04 15:00 15:10 Temp 98.0 98.2 98.0 98.2 Pulse 100 100 Resp 20 20 B/P (MAP) 122/72 (89) 122/72 (89) Pulse Ox 97 97 97 98 O2 Delivery Nasal Cannula Nasal Cannula Nasal Cannula Nasal Cannula O2 Flow Rate 3.0 2.0 3.0 2.0 10/02/18 10/02/18 10/02/18 10/02/18 18:25 19:10 20:10 23:10 Temp 97.5 97.9 97.5 97.9 Pulse 119 96 Resp 18 B/P (MAP) 121/85 (97) 142/62 (88) Pulse Ox 100 98 O2 Delivery Nasal Cannula Nasal Cannula Nasal Cannula Nasal Cannula O2 Flow Rate 2.0 3.0 2.0 3.0 10/03/18 10/03/18 10/03/18 03:30 06:19 07:05 Temp 97.5 97.6 97.5 97.6 Pulse 101 103 Resp 18 20 B/P (MAP) 122/50 (74) 107/66 (80) Pulse Ox 99 98 100 O2 Delivery Nasal Cannula Nasal Cannula Nasal Cannula O2 Flow Rate 3.0 2.0 3.0 Intake and Output 10/02/18 10/02/18 10/03/18 15:00 23:00 07:00 Intake Total 100 ml Output Total 25 ml Balance -25 ml 100 ml JENNIFER EPPERSON MD Oct 03, 2018 09:17
--- NOTE | 2018-10-03 09:27 | PDOC ---
Dialysis Progress Note Dialysis Note Dialysis Note Seen on Hemodialysis, tolerating treatment Okay Vitals on Hemodialysis: 103/59 89 AFEB General Appearance: ASLEEP Neck: No JVD or JVP Chest: CTA Zaheer Heart: S1 S2 Abdomen - Soft NTND Extremities - + Edema ESRD : Dialysis as below F 180 NR 4.0 Hrs 3 K 2.5 Ca 140 Na 35 HC03 Qb 350 + Qd 500+ Heparin 0 Units Uf 2.0 Kgs or to dry weight as tolerated May give 25-50 gms of 25% Albumin if needed to maintain Hemodynamic stability Treatment plan reviewed and discussed with computer systems security administrator Vitals Vital Signs Vital Signs Date Time Temp Pulse Resp B/P (MAP) Pulse Ox O2 Delivery O2 Flow Rate FiO2 10/03/18 07:05 97.6 103 20 107/66 (80) 100 Nasal Cannula 3.0 97.6 Labs Last Labs Laboratory Tests Test 10/01/18 10:37 10/01/18 16:36 10/01/18 20:06 10/02/18 05:30 Glucose (Fingerstick) 321 mg/dL (70-99) 188 mg/dL (70-99) 174 mg/dL (70-99) White Blood Count 3.6 x10^3/uL (4.0-11.0) Red Blood Count 2.43 x10^6/uL (4.30-5.70) Hemoglobin 9.1 g/dL (13.0-17.5) Hematocrit 26.8 % (39.0-53.0) Mean Corpuscular Volume 110 fL (79-100) Mean Corpuscular Hemoglobin 37 pg (25-35) Mean Corpuscular Hemoglobin Concent 34 g/dL (31-37) Red Cell Distribution Width 15.8 % (11.5-14.5) Platelet Count 84 x10^3/uL (140-400) Neutrophils (%) (Auto) 61 % (31-73) Lymphocytes (%) (Auto) 22 % (24-48) Monocytes (%) (Auto) 14 % (0-9) Eosinophils (%) (Auto) 3 % (0-3) Basophils (%) (Auto) 1 % (0-3) Neutrophils # (Auto) 2.2 x10^3uL (1.8-7.7) Lymphocytes # (Auto) 0.8 x10^3/uL (1.0-4.8) Monocytes # (Auto) 0.5 x10^3/uL (0.0-1.1) Eosinophils # (Auto) 0.1 x10^3/uL (0.0-0.7) Basophils # (Auto) 0.0 x10^3/uL (0.0-0.2) Sodium Level 136 mmol/L (136-145) Potassium Level 4.0 mmol/L (3.5-5.1) Chloride Level 96 mmol/L (98-107) Carbon Dioxide Level 25 mmol/L (21-32) Anion Gap 15 (6-14) Blood Urea Nitrogen 38 mg/dL (8-26) Creatinine 5.4 mg/dL (0.7-1.3) Estimated GFR (Cockcroft-Gault) 10.2 Glucose Level 195 mg/dL (70-99) Calcium Level 8.7 mg/dL (8.5-10.1) Test 10/02/18 07:01 10/02/18 12:16 10/02/18 17:21 10/02/18 20:59 Glucose (Fingerstick) 208 mg/dL (70-99) 173 mg/dL (70-99) 268 mg/dL (70-99) 258 mg/dL (70-99) Test 10/03/18 04:25 10/03/18 07:39 White Blood Count 3.7 x10^3/uL (4.0-11.0) Red Blood Count 2.43 x10^6/uL (4.30-5.70) Hemoglobin 9.0 g/dL (13.0-17.5) Hematocrit 26.7 % (39.0-53.0) Mean Corpuscular Volume 110 fL (79-100) Mean Corpuscular Hemoglobin 37 pg (25-35) Mean Corpuscular Hemoglobin Concent 34 g/dL (31-37) Red Cell Distribution Width 16.4 % (11.5-14.5) Platelet Count 79 x10^3/uL (140-400) Neutrophils (%) (Auto) 61 % (31-73) Lymphocytes (%) (Auto) 22 % (24-48) Monocytes (%) (Auto) 14 % (0-9) Eosinophils (%) (Auto) 2 % (0-3) Basophils (%) (Auto) 1 % (0-3) Neutrophils # (Auto) 2.3 x10^3uL (1.8-7.7) Lymphocytes # (Auto) 0.8 x10^3/uL (1.0-4.8) Monocytes # (Auto) 0.5 x10^3/uL (0.0-1.1) Eosinophils # (Auto) 0.1 x10^3/uL (0.0-0.7) Basophils # (Auto) 0.0 x10^3/uL (0.0-0.2) Sodium Level 135 mmol/L (136-145) Potassium Level 4.4 mmol/L (3.5-5.1) Chloride Level 96 mmol/L (98-107) Carbon Dioxide Level 25 mmol/L (21-32) Anion Gap 14 (6-14) Blood Urea Nitrogen 43 mg/dL (8-26) Creatinine 6.4 mg/dL (0.7-1.3) Estimated GFR (Cockcroft-Gault) 8.4 Glucose Level 228 mg/dL (70-99) Calcium Level 9.0 mg/dL (8.5-10.1) Glucose (Fingerstick) 254 mg/dL (70-99) Laboratory Tests Test 10/02/18 12:16 10/02/18 17:21 10/02/18 20:59 10/03/18 04:25 Glucose (Fingerstick) 173 mg/dL (70-99) 268 mg/dL (70-99) 258 mg/dL (70-99) White Blood Count 3.7 x10^3/uL (4.0-11.0) Red Blood Count 2.43 x10^6/uL (4.30-5.70) Hemoglobin 9.0 g/dL (13.0-17.5) Hematocrit 26.7 % (39.0-53.0) Mean Corpuscular Volume 110 fL (79-100) Mean Corpuscular Hemoglobin 37 pg (25-35) Mean Corpuscular Hemoglobin Concent 34 g/dL (31-37) Red Cell Distribution Width 16.4 % (11.5-14.5) Platelet Count 79 x10^3/uL (140-400) Neutrophils (%) (Auto) 61 % (31-73) Lymphocytes (%) (Auto) 22 % (24-48) Monocytes (%) (Auto) 14 % (0-9) Eosinophils (%) (Auto) 2 % (0-3) Basophils (%) (Auto) 1 % (0-3) Neutrophils # (Auto) 2.3 x10^3uL (1.8-7.7) Lymphocytes # (Auto) 0.8 x10^3/uL (1.0-4.8) Monocytes # (Auto) 0.5 x10^3/uL (0.0-1.1) Eosinophils # (Auto) 0.1 x10^3/uL (0.0-0.7) Basophils # (Auto) 0.0 x10^3/uL (0.0-0.2) Sodium Level 135 mmol/L (136-145) Potassium Level 4.4 mmol/L (3.5-5.1) Chloride Level 96 mmol/L (98-107) Carbon Dioxide Level 25 mmol/L (21-32) Anion Gap 14 (6-14) Blood Urea Nitrogen 43 mg/dL (8-26) Creatinine 6.4 mg/dL (0.7-1.3) Estimated GFR (Cockcroft-Gault) 8.4 Glucose Level 228 mg/dL (70-99) Calcium Level 9.0 mg/dL (8.5-10.1) Test 10/03/18 07:39 Glucose (Fingerstick) 254 mg/dL (70-99) Assessment Assessment Problems Medical Problems: (1) Pneumonia Status: Acute Plan Plan of Care Problems Medical Problems: (1) Pneumonia Status: Acute RICHIE UPTON MD Oct 03, 2018 09:27
[2018-10-03] MEDS ORDERED: IV NORMAL SALINE 1000ML BAG 1,000 ML IV PRN (10:03)
[2018-10-03] MEDS ORDERED: DIALYSIS PATIENT. MC PRN ×2 (10:15)
--- NOTE | 2018-10-03 10:23 | PDOC ---
Infectious Disease Note Subjective Subjective States ok. No F/C/S/N/V/D/SOA states he has been eating ROS ROS o/w neg Vital Sign Vital Signs Vital Signs Date Time Temp Pulse Resp B/P (MAP) Pulse Ox O2 Delivery O2 Flow Rate FiO2 10/03/18 07:05 97.6 103 20 107/66 (80) 100 Nasal Cannula 3.0 97.6 Physical Exam PHYSICAL EXAM GENERAL: In HD NAD. coop OC/Op - clear LUNGS: Decreased aeration, nonlabored HEART: S1, S2 ABDOMEN: Obese, BS active, soft, nontender EXTREMITIES: Trace edema BLE, LUE-AV fistula site looks unremarkable. SKIN: Warm, dry. No generalized rash. 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 of complications Labs Lab Laboratory Tests Test 10/02/18 12:16 10/02/18 17:21 10/02/18 20:59 10/03/18 04:25 Glucose (Fingerstick) 173 mg/dL (70-99) 268 mg/dL (70-99) 258 mg/dL (70-99) White Blood Count 3.7 x10^3/uL (4.0-11.0) Red Blood Count 2.43 x10^6/uL (4.30-5.70) Hemoglobin 9.0 g/dL (13.0-17.5) Hematocrit 26.7 % (39.0-53.0) Mean Corpuscular Volume 110 fL (79-100) Mean Corpuscular Hemoglobin 37 pg (25-35) Mean Corpuscular Hemoglobin Concent 34 g/dL (31-37) Red Cell Distribution Width 16.4 % (11.5-14.5) Platelet Count 79 x10^3/uL (140-400) Neutrophils (%) (Auto) 61 % (31-73) Lymphocytes (%) (Auto) 22 % (24-48) Monocytes (%) (Auto) 14 % (0-9) Eosinophils (%) (Auto) 2 % (0-3) Basophils (%) (Auto) 1 % (0-3) Neutrophils # (Auto) 2.3 x10^3uL (1.8-7.7) Lymphocytes # (Auto) 0.8 x10^3/uL (1.0-4.8) Monocytes # (Auto) 0.5 x10^3/uL (0.0-1.1) Eosinophils # (Auto) 0.1 x10^3/uL (0.0-0.7) Basophils # (Auto) 0.0 x10^3/uL (0.0-0.2) Sodium Level 135 mmol/L (136-145) Potassium Level 4.4 mmol/L (3.5-5.1) Chloride Level 96 mmol/L (98-107) Carbon Dioxide Level 25 mmol/L (21-32) Anion Gap 14 (6-14) Blood Urea Nitrogen 43 mg/dL (8-26) Creatinine 6.4 mg/dL (0.7-1.3) Estimated GFR (Cockcroft-Gault) 8.4 Glucose Level 228 mg/dL (70-99) Calcium Level 9.0 mg/dL (8.5-10.1) Test 10/03/18 07:39 Glucose (Fingerstick) 254 mg/dL (70-99) Micro Microbiology 09/25/18 Blood Culture - Final, Complete NO GROWTH AFTER 5 DAYS Objective Assessment Pancytopenia ? med vs malignancy - states Dr. Ruiz ts/p bone marrow Sepsis with hypotension requiring vasopressor support. now off Suspected pneumonia. Acute respiratory failure, now on O2,off bipap Coronary artery disease with coronary artery bypass grafting. Status post pacemaker. End-stage renal disease, on hemodialysis via AV fistula. Diabetes. History of multiple hospitalizations this year, requiring antibiotic support. History of [facility]-associated pneumonia, 07/2018, treated. History of benign prostatic hypertrophy with urinary retention. Legally blind. History of mild dysphagia with aspiration of thin liquids per past video swallow study. Sulfa allergy. Plan Plan of Care Will d/c Zosyn (09/25) dose Augmentin for 2 more days ID to sign off JOSE FELIX MD Oct 03, 2018 10:23
--- NOTE | 2018-10-03 12:28 | PDOC3 ---
Discharge Summary Date of Admission: Sep 25, 2018 Date of Discharge: Oct 03, 2018 Follow-Up: 1-2 days Admitting Diagnosis comment: discharge diagnosis Chief Complaint Acute hypoxic respiratory failure Sepsis/ septic shock, secondary to pneumonia Coronary artery disease with previous coronary artery bypass grafting Acute metabolic toxic encephalopathy, present upon admission Protein malnutrition present upon admission Status post pacemaker Peripheral vascular disease Abnormal cxr with LLL infiltrate/ effusion Hyperkalemia, resolved PANCYTOPENIA TO SNF today ok WITH ID/HEME d/c zosyn, augmentin for 2 days History of Present Illness History of Present Illness Pt seen and examined Sitting in chair, calm, cooperative, oxygen via nasal cannula Discussed with RN at bedside Vitals Vitals Vital Signs Date Time Temp Pulse Resp B/P (MAP) Pulse Ox O2 Delivery O2 Flow Rate FiO2 10/03/18 07:05 97.6 103 20 107/66 (80) 100 Nasal Cannula 3.0 97.6 Physical Exam Physical Exam GENERAL: Resting quietly, NAD.less pain LUNGS: nonlabored HEART: S1, S2 ABDOMEN: Obese, BS active, soft, nontender EXTREMITIES: Trace edema BLE, LUE-AV fistula site looks unremarkable. SKIN: Warm, dry. No generalized rash. 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 Morse is a 82 old [sex] who presented with [ pneumonia/ sepsis] CONDITION AT DISCHARGE: Improved Discharge Medications Current Medications Naloxone HCl (Narcan) 0.2 mg 1X ONCE IV Last administered on 09/25/18at 08:47 ; Start 09/25/18 at 08:45; Stop 09/25/18 at 08:46; Status DC Sodium Chloride 500 ml @ 500 mls/hr 1X ONCE IV Last administered on at 08:49; Start 09/25/18 at 08:45; Stop 09/25/18 at 09:44; Status DC Vancomycin HCl (Vanco Per Pharmacy) 1 each PRN DAILY PRN MC SEE COMMENTS Last administered on 09/28/18at 13:20; Start 09/25/18 at 09:30; Stop 09/29/18 at 15: 07; Status DC Piperacillin Sod/ Tazobactam Sod (Zosyn Per Pharmacy) 1 each PRN DAILY PRN MC SEE COMMENTS; Start 09/25/18 at 09:30; Stop 10/02/18 at 13:51; Status DC Piperacillin Sod/ Tazobactam Sod 2.25 gm/Sodium Chloride 50 ml @ 100 mls/hr 1X ONCE IV Last administered on 09/25/18at 09:48; Start 09/25/18 at 09:30; Stop 09/25/18 at 09:59; Status DC Vancomycin HCl 1.75 gm/Sodium Chloride 500 ml @ 250 mls/hr 1X ONCE IV Last administered on 09/25/18at 10:25; Start 09/25/18 at 09:45; Stop 09/25/18 at 11 :44; Status DC Sodium Chloride 500 ml @ 500 mls/hr 1X ONCE IV Last administered on at 09:48; Start 09/25/18 at 09:45; Stop 09/25/18 at 10:44; Status DC Sodium Chloride 500 ml @ 500 mls/hr 1X ONCE IV Last administered on at 11:16; Start 09/25/18 at 10:30; Stop 09/25/18 at 11:29; Status DC Norepinephrine Bitartrate 250 ml @ 0 mls/hr 1X ONCE IV Last administered on at 11:13; Start 09/25/18 at 10:30; Stop 09/25/18 at 14:39; Status DC Lidocaine HCl (Lidocaine 1% 20ml Vial) 20 ml STK-MED ONCE .ROUTE ; Start at 10:41; Stop 09/25/18 at 10:42; Status DC Vasopressin 40 unit/Dextrose 102 ml @ 6 mls/hr CONT PRN IV SEE I/O RECORD Last administered on 09/26/18at 04:12; Start 09/25/18 at 13:15; Stop 09/27/18 at 16 :31; Status DC Norepinephrine Bitartrate 250 ml @ 9.375 mls/ hr CONT PRN IV SEE I/O RECORD Last administered on 09/25/18at 19:33; Start 09/25/18 at 14:45; Stop 09/27/18 at 16:31; Status DC Piperacillin Sod/ Tazobactam Sod 2.25 gm/Sodium Chloride 50 ml @ 100 mls/hr Q8HRS IV Last administered on 10/02/18at 05:27; Start 09/25/18 at 16:00; Stop 10/02/18 at 13:51; Status DC Vancomycin HCl (Vancomycin Random Level) 1 each 1X ONCE MC Last administered on 09/26/18at 05:35; Start 09/26/18 at 06:00; Stop 09/26/18 at 06:02; Status DC Acetaminophen (Tylenol) 650 mg PRN Q6HRS PRN PO FEVER Last administered on 09/30at 05:11; Start 09/25/18 at 16:30 Ondansetron HCl (Zofran) 4 mg PRN Q6HRS PRN IV NAUSEA/VOMITING; Start at 16:30 Docusate Sodium (Colace) 100 mg PRN DAILY PRN PO CONSTIPATION; Start 09/25/18 at 16:30 Sodium Chloride 1,000 ml @ 75 mls/hr [id number] IV Last administered on at 05:51; Start 09/25/18 at 16:30; Stop 09/26/18 at 18:58; Status DC Famotidine (Pepcid Vial) 20 mg Q48H IVP Last administered on 09/29/18at 20:30; Start 09/25/18 at 21:00; Stop 10/01/18 at 14:42; Status DC Heparin Sodium (Porcine) (Heparin Sodium) 5,000 unit Q8HRS SQ Last administered on 09/30/18at 05:21; Start 09/25/18 at 22:00; Stop 09/30/18 at 15: 30; Status DC Insulin Human Lispro (HumaLOG) 0-7 UNITS TIDWMEALS SQ Last administered on 10/03at 08:54; Start 09/25/18 at 17:00 Dextrose (Dextrose 50%-Water Syringe) 12.5 gm PRN Q15MIN PRN IV SEE COMMENTS; Start 09/25/18 at 16:30 Albuterol/ Ipratropium (Duoneb) 3 ml RTQID NEB Last administered on 10/03/18at 11:43; Start 09/25/18 at 20:00 Albuterol Sulfate (Ventolin Neb Soln) 2.5 mg PRN Q2HR PRN NEB SHORTNESS OF BREATH; Start 09/25/18 at 16:30 Guaifenesin (Mucinex) 600 mg BID PO Last administered on 10/02/18at 20:18; Start 09/25/18 at 21:00 Sodium Chloride 1,000 ml @ 1,000 mls/hr Q1H PRN IV hypotension; Start at 06:43; Stop 09/26/18 at 12:42; Status DC Albumin Human 200 ml @ 200 mls/hr 1X PRN PRN IV Hypotension; Start 09/26/18 at 06:45; Stop 09/26/18 at 12:54; Status DC Sodium Chloride (Normal Saline Flush) 10 ml 1X PRN PRN IV AP 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; Start 09/26/18 at 06:45; Stop 09/27/18 at 06:44; Status DC Sodium Chloride (Normal Saline Flush) 10 ml 1X PRN PRN IV OPERATIONS SUPPORT ANALYST 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; Start 09/26/18 at 06:45; Stop 09/27/18 at 06:44; Status DC Sodium Chloride 1,000 ml @ 400 mls/hr Q2H30M PRN IV PATENCY; Start 09/26/18 at 06:43; Stop 09/26/18 at 18:42; Status DC Info (PHARMACY MONITORING -- do not chart) 1 each PRN DAILY PRN MC SEE COMMENTS ; Start 09/26/18 at 06:45; Status UNV Info (PHARMACY MONITORING -- do not chart) 1 each PRN DAILY PRN MC SEE COMMENTS ; Start 09/26/18 at 06:45; Stop 10/03/18 at 10:11; Status DC Vancomycin HCl 500 mg/Sodium Chloride 100 ml @ 100 mls/hr TuThSa IV Last administered on 09/28/18at 16:13; Start 09/26/18 at 16:00; Stop 09/29/18 at 15: 07; Status DC Lactobacillus Rhamnosus (Culturelle) 1 cap BID PO Last administered on at 20:18; Start 09/27/18 at 21:00 Sodium Chloride 1,000 ml @ 1,000 mls/hr Q1H PRN IV hypotension; Start 09/28/18 at 10:34; Stop 09/28/18 at 16:33; Status DC Sodium Chloride 1,000 ml @ 400 mls/hr Q2H30M PRN IV PATENCY; Start 09/28/18 at 10:34; Stop 09/28/18 at 22:33; Status DC Info (PHARMACY MONITORING -- do not chart) 1 each PRN DAILY PRN MC SEE COMMENTS ; Start 09/28/18 at 10:45; Status UNV Info (PHARMACY MONITORING -- do not chart) 1 each PRN DAILY PRN MC SEE COMMENTS ; Start 09/28/18 at 10:45; Status Cancel Albumin Human 200 ml @ 200 mls/hr 1X ONCE IV Last administered on 09/28/18at 12:26; Start 09/28/18 at 12:15; Stop 09/28/18 at 13:14; Status DC Haloperidol (Haldol) 0.5 mg 1X ONCE PO Last administered on 09/29/18at 02:51; Start 09/29/18 at 02:45; Stop 09/29/18 at 02:46; Status DC Alprazolam (Xanax) 0.25 mg PRN QHS PRN PO ANXIETY / AGITATION Last administered on 10/02/18at 20:20; Start 09/29/18 at 02:45 Oxycodone/ Acetaminophen (Percocet 5/325) 1 tab PRN Q6HRS PRN PO PAIN Last administered on 10/03/18at 09:45; Start 09/29/18 at 02:45 Sodium Chloride 1,000 ml @ 1,000 mls/hr Q1HR PRN IV hypotension Last administered on 09/29/18at 08:35; Start 09/29/18 at 08:15 Risperidone (RisperDAL) 0.5 mg 1X ONCE PO Last administered on 09/30/18at 00:22 ; Start 09/30/18 at 00:15; Stop 09/30/18 at 00:16; Status DC Sodium Chloride 1,000 ml @ 1,000 mls/hr Q1H PRN IV hypotension; Start 09/30/18 at 10:31; Stop 09/30/18 at 16:30; Status DC Sodium Chloride 1,000 ml @ 400 mls/hr Q2H30M PRN IV PATENCY; Start 09/30/18 at 10:31; Stop 09/30/18 at 22:30; Status DC Info (PHARMACY MONITORING -- do not chart) 1 each PRN DAILY PRN MC SEE COMMENTS ; Start 09/30/18 at 10:45; Stop 09/30/18 at 10:45; Status DC Info (PHARMACY MONITORING -- do not chart) 1 each PRN DAILY PRN MC SEE COMMENTS ; Start 09/30/18 at 10:45; Stop 09/30/18 at 10:45; Status DC Famotidine (Pepcid) 20 mg Q48H PO Last administered on 10/01/18at 20:14; Start 10/01/18 at 21:00 Lidocaine/Sodium Bicarbonate (Buffered Lidocaine 1%) 3 ml STK-MED ONCE .ROUTE ; Start 10/02/18 at 08:36; Stop 10/02/18 at 08:37; Status DC Midazolam HCl (Versed) 2 mg STK-MED ONCE .ROUTE ; Start 10/02/18 at 08:37; Stop 10/02/18 at 08:38; Status DC Fentanyl Citrate (Fentanyl 2ml Vial) 100 mcg STK-MED ONCE .ROUTE ; Start at 08:37; Stop 10/02/18 at 08:38; Status DC Lidocaine/Sodium Bicarbonate (Buffered Lidocaine 1%) 9 ml 1X ONCE IJ Last administered on 10/02/18at 09:12; Start 10/02/18 at 09:15; Stop 10/02/18 at 09:19 ; Status DC Midazolam HCl (Versed) 2 mg 1X ONCE IV Last administered on 10/02/18at 09:12; Start 10/02/18 at 09:15; Stop 10/02/18 at 09:19; Status DC Fentanyl Citrate (Fentanyl 2ml Vial) 50 mcg 1X ONCE IV Last administered on at 09:12; Start 10/02/18 at 09:15; Stop 10/02/18 at 09:19; Status DC Amoxicillin/ Clavulanate Potassium (Augmentin 500/ 125mg) 1 tab DAILY PO Last administered on 10/02/18at 17:31; Start 10/02/18 at 14:00 Sodium Chloride 1,000 ml @ 1,000 mls/hr Q1H PRN IV hypotension; Start 10/03/18 at 10:03; Stop 10/03/18 at 16:02 Info (PHARMACY MONITORING -- do not chart) 1 each PRN DAILY PRN MC SEE COMMENTS ; Start 10/03/18 at 10:15 Info (PHARMACY MONITORING -- do not chart) 1 each PRN DAILY PRN MC SEE COMMENTS ; Start 10/03/18 at 10:15; Status UNV Active Scripts Active Humalog (Insulin Lispro) 100 Unit/1 Ml Insuln.pen 10 Units SQ TIDWMEALS 30 Days Haloperidol 2 Mg Tablet 0.5 Tab PO Q12HR Lantus Solostar (Insulin Glargine,Hum.rec.anlog) 100 Unit/1 Ml Insuln.pen 24 Unit SQ QHS 30 Days Alprazolam 0.5 Mg Tablet 1 Tab PO HS PRN Reported Tamsulosin Hcl 0.4 Mg Cap.er.24h 0.8 Mg PO DAILY Spironolactone 25 Mg Tablet 1 Tab PO DAILY Senokot (Sennosides) 8.6 Mg Tablet 1 Tab PO BID Requip (Ropinirole Hcl) 1 Mg Tablet 1 Tab PO QHS Lyrica (Pregabalin) 75 Mg Capsule 1 Cap PO BID Super Enzyme Caps (Pancreat/Bet Hcl/Pep/Brom/Pap) 1 Each Capsule 4 Cap PO QID Magnesium Oxide 400 Mg Tablet 1 Tab PO DAILY Gemfibrozil 600 Mg Tablet 1 Tab PO BIDWMEALS Folic Acid 1 Mg Tablet 1 Tab PO DAILY Fish Oil 1,000 Mg Capsule ([place]-3 Fatty Acids/Fish Oil) 1 Each Capsule 2,000 Each PO BID Cyclobenzaprine Hcl 10 Mg Tablet 1 Tab PO BID Cre[place] Dr 6,000 Units Capsule (Lipase/Protease/Amylase) 1 Each Capsule.dr 1 Each PO QID Vitamin D3 (Cholecalciferol (Vitamin D3)) 1,000 Unit Tablet 3 Tab PO DAILY Aspirin Ec (Aspirin) 81 Mg Tablet.dr 1 Tab PO DAILY Acetaminophen 500 Mg Tablet 1,000 Mg PO PRN DAILY PRN Midodrine Hcl 5 Mg Tablet 5 Mg PO 3X/WEEK Hydroxyzine Hcl 25 Mg Tablet 25 Mg PO QID Calcium Acetate 667 Mg Tablet 2 Cap PO BIDAC Prevalite Packet (Cholestyramine/Aspartame) 4 Gm Powd.pack 4 Gm PO BID Toprol Xl (Metoprolol Succinate) 25 Mg Tab.er.24h 1 Tab PO DAILY Furosemide 40 Mg Tablet 2 Tab PO DAILY Diltiazem 24HR Cd (Diltiazem Hcl) 120 Mg Cap.er.24h 1 Cap PO DAILY Percocet 5-325 Mg Tablet (Oxycodone/Acetaminophen) 1 Each Tablet 1 Tab PO QID Humalog (Insulin Lispro) 100 Unit/1 Ml Cartridge 8 Unit SQ TIDAC Prilosec Otc (Omeprazole Magnesium) 20 Mg Tablet.dr 20 Mg PO DAILY Vital Signs Vital Signs Date Time Temp Pulse Resp B/P (MAP) Pulse Ox O2 Delivery O2 Flow Rate FiO2 10/03/18 11:43 100 Nasal Cannula 4.5 10/03/18 07:05 97.6 103 20 107/66 (80) 97.6 Labs Laboratory Tests Test 10/01/18 16:36 10/01/18 20:06 10/02/18 05:30 10/02/18 07:01 Glucose (Fingerstick) 188 mg/dL (70-99) 174 mg/dL (70-99) 208 mg/dL (70-99) White Blood Count 3.6 x10^3/uL (4.0-11.0) Red Blood Count 2.43 x10^6/uL (4.30-5.70) Hemoglobin 9.1 g/dL (13.0-17.5) Hematocrit 26.8 % (39.0-53.0) Mean Corpuscular Volume 110 fL (79-100) Mean Corpuscular Hemoglobin 37 pg (25-35) Mean Corpuscular Hemoglobin Concent 34 g/dL (31-37) Red Cell Distribution Width 15.8 % (11.5-14.5) Platelet Count 84 x10^3/uL (140-400) Neutrophils (%) (Auto) 61 % (31-73) Lymphocytes (%) (Auto) 22 % (24-48) Monocytes (%) (Auto) 14 % (0-9) Eosinophils (%) (Auto) 3 % (0-3) Basophils (%) (Auto) 1 % (0-3) Neutrophils # (Auto) 2.2 x10^3uL (1.8-7.7) Lymphocytes # (Auto) 0.8 x10^3/uL (1.0-4.8) Monocytes # (Auto) 0.5 x10^3/uL (0.0-1.1) Eosinophils # (Auto) 0.1 x10^3/uL (0.0-0.7) Basophils # (Auto) 0.0 x10^3/uL (0.0-0.2) Sodium Level 136 mmol/L (136-145) Potassium Level 4.0 mmol/L (3.5-5.1) Chloride Level 96 mmol/L (98-107) Carbon Dioxide Level 25 mmol/L (21-32) Anion Gap 15 (6-14) Blood Urea Nitrogen 38 mg/dL (8-26) Creatinine 5.4 mg/dL (0.7-1.3) Estimated GFR (Cockcroft-Gault) 10.2 Glucose Level 195 mg/dL (70-99) Calcium Level 8.7 mg/dL (8.5-10.1) Test 10/02/18 12:16 10/02/18 17:21 10/02/18 20:59 10/03/18 04:25 Glucose (Fingerstick) 173 mg/dL (70-99) 268 mg/dL (70-99) 258 mg/dL (70-99) White Blood Count 3.7 x10^3/uL (4.0-11.0) Red Blood Count 2.43 x10^6/uL (4.30-5.70) Hemoglobin 9.0 g/dL (13.0-17.5) Hematocrit 26.7 % (39.0-53.0) Mean Corpuscular Volume 110 fL (79-100) Mean Corpuscular Hemoglobin 37 pg (25-35) Mean Corpuscular Hemoglobin Concent 34 g/dL (31-37) Red Cell Distribution Width 16.4 % (11.5-14.5) Platelet Count 79 x10^3/uL (140-400) Neutrophils (%) (Auto) 61 % (31-73) Lymphocytes (%) (Auto) 22 % (24-48) Monocytes (%) (Auto) 14 % (0-9) Eosinophils (%) (Auto) 2 % (0-3) Basophils (%) (Auto) 1 % (0-3) Neutrophils # (Auto) 2.3 x10^3uL (1.8-7.7) Lymphocytes # (Auto) 0.8 x10^3/uL (1.0-4.8) Monocytes # (Auto) 0.5 x10^3/uL (0.0-1.1) Eosinophils # (Auto) 0.1 x10^3/uL (0.0-0.7) Basophils # (Auto) 0.0 x10^3/uL (0.0-0.2) Sodium Level 135 mmol/L (136-145) Potassium Level 4.4 mmol/L (3.5-5.1) Chloride Level 96 mmol/L (98-107) Carbon Dioxide Level 25 mmol/L (21-32) Anion Gap 14 (6-14) Blood Urea Nitrogen 43 mg/dL (8-26) Creatinine 6.4 mg/dL (0.7-1.3) Estimated GFR (Cockcroft-Gault) 8.4 Glucose Level 228 mg/dL (70-99) Calcium Level 9.0 mg/dL (8.5-10.1) Test 10/03/18 07:39 Glucose (Fingerstick) 254 mg/dL (70-99) Laboratory Tests Test 10/02/18 17:21 10/02/18 20:59 10/03/18 04:25 10/03/18 07:39 Glucose (Fingerstick) 268 mg/dL (70-99) 258 mg/dL (70-99) 254 mg/dL (70-99) White Blood Count 3.7 x10^3/uL (4.0-11.0) Red Blood Count 2.43 x10^6/uL (4.30-5.70) Hemoglobin 9.0 g/dL (13.0-17.5) Hematocrit 26.7 % (39.0-53.0) Mean Corpuscular Volume 110 fL (79-100) Mean Corpuscular Hemoglobin 37 pg (25-35) Mean Corpuscular Hemoglobin Concent 34 g/dL (31-37) Red Cell Distribution Width 16.4 % (11.5-14.5) Platelet Count 79 x10^3/uL (140-400) Neutrophils (%) (Auto) 61 % (31-73) Lymphocytes (%) (Auto) 22 % (24-48) Monocytes (%) (Auto) 14 % (0-9) Eosinophils (%) (Auto) 2 % (0-3) Basophils (%) (Auto) 1 % (0-3) Neutrophils # (Auto) 2.3 x10^3uL (1.8-7.7) Lymphocytes # (Auto) 0.8 x10^3/uL (1.0-4.8) Monocytes # (Auto) 0.5 x10^3/uL (0.0-1.1) Eosinophils # (Auto) 0.1 x10^3/uL (0.0-0.7) Basophils # (Auto) 0.0 x10^3/uL (0.0-0.2) Sodium Level 135 mmol/L (136-145) Potassium Level 4.4 mmol/L (3.5-5.1) Chloride Level 96 mmol/L (98-107) Carbon Dioxide Level 25 mmol/L (21-32) Anion Gap 14 (6-14) Blood Urea Nitrogen 43 mg/dL (8-26) Creatinine 6.4 mg/dL (0.7-1.3) Estimated GFR (Cockcroft-Gault) 8.4 Glucose Level 228 mg/dL (70-99) Calcium Level 9.0 mg/dL (8.5-10.1) Allergies Allergies Coded Allergies Type Severity Reaction Last Updated Verified [id number] Reductase Inhibitor Allergy Severe Brain swelling. 02/22/18 Yes gabapentin Allergy Severe Brain swelling 02/22/18 Yes sulfamethoxazole Allergy Intermediate 02/22/18 Yes trimethoprim Allergy Intermediate 02/22/18 Yes morphine Adverse Reaction Severe 02/22/18 Yes Disposition/Orders: Other ([facility] bed [facility]) Patient Instructions d/c planning 36 min JENNIFER EPPERSON MD Oct 03, 2018 12:28
--- NOTE | 2018-10-03 12:29 | DISCH ---
DISCHARGE DISCHARGE INFORMATION: FINAL DIAGNOSIS Problems Medical Problems: (1) Pneumonia Status: Acute CONDITION ON DISCHARGE: Stable CODE STATUS: Code Status: Full JAIL: SNF STAY <30 DAYS: Yes HOSPICE: HOSPICE: No HOSPICE EVAL & TREAT: No LTAC: ADMIT TO LTAC: No POST DISCHARGE ORDERS: ACTIVITY ORDERS: Activity as tolerated WEIGHT BEARING STATUS: As tolerated DIET AFTER DISCHARGE: Renal WOUND/INCISION CARE: Change dressing CHECKS AFTER DISCHARGE: CHECKS AFTER DISCHARGE: Check blood press - daily, Check blood sugar, ac/hs, Weigh Yourself Daily FOLLOW-UP: PHYSICIAN FOLLOW-UP: renal 2 days TREATMENT/EQUIPMENT ORDERS: ADAPTIVE EQUIPMENT NEEDED: Four wheeled walker RESPIRATORY EQUIPMENT NEEDED: Oxygen Physical Therapy For: Evalulation/Treatment Occupational Therapy For: Evaluation/Treatment DISCHARGE MEDICATIONS: Home Meds Active Scripts Insulin Lispro (HUMALOG) 100 Unit/1 Ml Insuln.pen, 10 UNITS SQ TIDWMEALS for 30 Days, EACH Prov:ENRIQUE ALCALA MD 08/14/18 Haloperidol (HALOPERIDOL) 2 Mg Tablet, 0.5 TAB PO Q12HR, #60 TAB Prov:ENRIQUE ALCALA MD 08/14/18 Insulin Glargine,Hum.rec.anlog (LANTUS SOLOSTAR) 100 Unit/1 Ml Insuln.pen, 24 UNIT SQ QHS for 30 Days, #15 ML 3 Refills Prov:ENRIQUE ALCALA MD 08/14/18 Alprazolam (ALPRAZOLAM) 0.5 Mg Tablet, 1 TAB PO HS PRN for ANXIETY / AGITATION, #30 TAB Prov:ENRIQUE ALCALA MD 08/14/18 Reported Medications Tamsulosin Hcl (TAMSULOSIN HCL) 0.4 Mg Cap.er.24h, 0.8 MG PO DAILY, TAB 08/11/18 Spironolactone (SPIRONOLACTONE) 25 Mg Tablet, 1 TAB PO DAILY, #90 TAB 1 Refill 08/11/18 Sennosides (SENOKOT) 8.6 Mg Tablet, 1 TAB PO BID, #40 TAB 08/11/18 Ropinirole Hcl (REQUIP) 1 Mg Tablet, 1 TAB PO QHS, #30 TAB 2 Refills 08/11/18 Pregabalin (LYRICA) 75 Mg Capsule, 1 CAP PO BID, #60 CAP 1 Refill 08/11/18 Pancreat/Bet Hcl/Pep/Brom/Pap (SUPER ENZYME CAPS) 1 Each Capsule, 4 CAP PO QID, CAP 08/11/18 Magnesium Oxide (MAGNESIUM OXIDE) 400 Mg Tablet, 1 TAB PO DAILY, #30 TAB 5 Refills 08/11/18 Gemfibrozil (GEMFIBROZIL) 600 Mg Tablet, 1 TAB PO BIDWMEALS, #60 TAB 5 Refills 08/11/18 Folic Acid (FOLIC ACID) 1 Mg Tablet, 1 TAB PO DAILY, #90 TAB 1 Refill 08/11/18 [place]-3 Fatty Acids/Fish Oil (FISH OIL 1,000 MG CAPSULE) 1 Each Capsule, 2000 EACH PO BID, CAP 08/11/18 Cyclobenzaprine Hcl (CYCLOBENZAPRINE HCL) 10 Mg Tablet, 1 TAB PO BID, #90 TAB 08/11/18 Lipase/Protease/Amylase (CREON DR 6,000 UNITS CAPSULE) 1 Each Capsule.dr, 1 EACH PO QID, CAP 08/11/18 Cholecalciferol (Vitamin D3) (VITAMIN D3) 1,000 Unit Tablet, 3 TAB PO DAILY, # 30 TAB 5 Refills 08/11/18 Aspirin (ASPIRIN EC) 81 Mg Tablet.dr, 1 TAB PO DAILY, #30 TAB 3 Refills 08/11/18 Acetaminophen (ACETAMINOPHEN) 500 Mg Tablet, 1000 MG PO PRN DAILY PRN for PAIN, TAB 08/11/18 Midodrine Hcl (MIDODRINE HCL) 5 Mg Tablet, 5 MG PO 3X/WEEK for 30-60 min prior to dialysis, TAB 06/06/18 Hydroxyzine Hcl (HYDROXYZINE HCL) 25 Mg Tablet, 25 MG PO QID, TAB 06/06/18 Calcium Acetate (CALCIUM ACETATE) 667 Mg Tablet, 2 CAP PO BIDAC for DIALYSIS PATIENTS, CAP 06/06/18 Cholestyramine/Aspartame (PREVALITE PACKET) 4 Gm Powd.pack, 4 GM PO BID, PKT 06/06/18 Metoprolol Succinate (TOPROL XL) 25 Mg Tab.er.24h, 1 TAB PO DAILY, #30 TAB 5 Refills 06/06/18 Furosemide (FUROSEMIDE) 40 Mg Tablet, 2 TAB PO DAILY, #30 TAB 5 Refills 06/06/18 Diltiazem Hcl (DILTIAZEM 24HR CD) 120 Mg Cap.er.24h, 1 CAP PO DAILY, #90 CAP 1 Refill 06/06/18 Oxycodone/Apap 5-325 (PERCOCET 5-325 MG TABLET) 1 Each Tablet, 1 TAB PO QID, # 120 TAB 06/06/17 Insulin Lispro (HUMALOG) 100 Unit/1 Ml Cartridge, 8 UNIT SQ TIDAC, EACH 06/06/17 Omeprazole Magnesium (PRILOSEC OTC) 20 Mg Tablet., 20 MG PO DAILY, TAB 11/20/14 JENNIFER EPPERSON MD Oct 03, 2018 12:29
[2018-10-03] MEDS: LACTOBACILLUS RHAMNOSUS GG 1 CAPSULE. PO SCH (14:02)
[2018-10-03] MEDS: AMOXICILLIN/K CLAV 500/125MG TABLET. PO SCH (14:02)
[2018-10-03 15:06] VITALS: BP 125/67
--- NOTE | 2018-10-06 14:12 | PATHOLOGY ---
[facility] Accession Number: [id number] . 01 Material submitted: . PART A: BONE MARROW BIOPSY PART B: BONE MARROW CLOT PART C: BONE MARROW ASPIRATE SLIDES PART D: PERIPHERAL SMEARS PART E: BONE MARROW FLOW . 01 Clinical history: . Pancytopenia . 02 Diagnosis: Peripheral smear: - Mild leukopenia. - Macrocytic anemia, moderate. - Thrombocytopenia, mild to moderate. . Bone marrow, aspirate smears, clot section, and core biopsy: - Variable normocellular to focally mildly hypercellular marrow showing trilineage hematopoiesis, mild dyspoiesis, and increased reticuloendothelial iron stores. See comment. LBQ/10/06/2018 . 02 Comment: The peripheral smear shows mild leukopenia, moderate macrocytic anemia, and mild to moderate thrombocytopenia. The bone marrow is normocellular to focally mildly hypercellular and shows trilineage hematopoiesis, mild dyspoiesis and increased reticuloendothelial iron stores. Bone marrow submitted for flow cytometry shows no immunophenotypic evidence of a lymphoproliferative disorder, acute leukemia, increase in blasts, or plasma cell neoplasm. The dyspoiesis is mild and does not meet morphologic criteria for myelodysplastic syndrome. That said, I cannot exclude the possibility of an early or evolving myelodysplastic syndrome. Other causes of macrocytic anemia i.e. B12 and/or folate deficiency, liver disease, hypothyroidism, etc, should be excluded. Bone marrow cytogenetic studies are pending. (JPM/db; 10/06/2018) . This case was prepared by Dr. Samson Quan and electronically signed and released by Dr. Brenda Adams. . 02 Electronically signed: . Brenda dAams MD, Pathologist NPI- [id number] . 01 Gross description: . A. Received in formalin labeled "Chito Morse, BM BX," is a single needle core of lopez bone measuring 1.3 cm in length and 0.3 cm in diameter. The specimen is filtered and entirely submitted in cassette A1, following decalcification. . B. Received in formalin labeled "Chito Morse, BM aspirate-clot," is an aggregate of dark lopez blood clot measuring 2.6 x 1.6 x 0.5 cm. The specimen is filtered and entirely submitted in cassette B1. (TSD; 10/02/2018) TOB/TOB . 02 Microscopic: . Laboratory Data: The WBC count is 3.6 K/CMM, and the automated WBC differential reveals 61% neutrophils, 22% lymphs, 14% monos, 3% eos, and 1% baso. The RBC count is 2.43 M/CMM, hemoglobin 9.1 G/DL, hematocrit 26.8%, MCV 110 FL, MCH 37 PG, MCHC 34 G/DL, and the RDW is 15.8%. The platelet count is 84 K/CMM. The reticulocyte count is 0.8% (corrected for anemia). The haptoglobin is 101 MG/DL. . Peripheral Smear: The peripheral smear is reviewed. The WBC count is mildly decreased. The WBC differential reveals a predominance of segmented neutrophils, with smaller populations of lymphocytes and monocytes and a few eosinophils noted. Neutrophils do not show dysplastic changes. There is no significant neutrophilic left shift. There are no circulating blasts. There is no leukoerythroblastic reaction. Red blood cells predominantly appear normochromic and mildly macrocytic. There is mild polychromasia. Red blood cells show mild anisocytosis and mild poikilocytosis with presence of oval macrocytes and occasional teardrop red blood cells and red blood cell fragments noted. Platelets are mild to moderately decreased with occasional large platelets noted. . Aspirate Smears: Two Esposito's-stained and one iron-stained aspirate smears are examined. The smears contain multiple marrow particles. The M/E ratio is within normal range. Erythroid maturation predominantly appears normoblastic. There is mild dyserythropoiesis. This is comprised of some erythroid precursors which show mild megaloblastoid changes, binucleation, and occasionally irregular nuclear shapes. Granulopoiesis qualitatively appears normal. There is no significant left shift or dysplastic changes. There is no increase of blasts. Megakaryocytes appear adequate in number and are of variable ploidy. Plasma cells are not increased. Lymphocytes are not increased. There are no cells foreign to the marrow. The iron stain of the aspirate smear contains only a few small marrow particles which do show focally increased iron stores. There are no obvious ringed sideroblasts. . Bone Marrow Biopsy and Clot Sections: Sections of the bone marrow biopsy reveal bone marrow which ranges between 20-30% and 70-80% cellular. The clot sections contain multiple marrow particles, most of which range between 20% and 30-40% cellular. There is a good admixture of erythroid and granulocytic precursors, which are present in varying stages of maturation. There is no obvious increase of blasts. Megakaryocytes appear adequate in number and are focally clustered. The megakaryocytes are of variable ploidy. Plasma cells are not increased. There are no abnormal lymphoid aggregates, granulomas, or cells foreign to the marrow. The iron stains of the core biopsy and clot section show mildly increased iron stores. There are no obvious ringed sideroblasts. A reticulin stain obtained on the bone marrow biopsy shows a patchy mild increase of reticulin fibers with no significant reticulin fibrosis noted. (JPM/db; 10/06/2018) . Special Studies: Bone marrow submitted for flow cytometry has a viability of 96.3%. Granulocytes comprise 78.9% of total cells and show phenotypic evidence of maturation. Monocytes comprise 2.8% of total cells and show phenotypic evidence of maturation. CD45 dim, CD34 positive cells comprise 0.6% of total cells. Plasma cells are not increased. Lymphocytes comprise 11.5% of total cells. T-cells comprise 57% of lymphoid cells and show a CD4/CD8 ratio of 1.4. NK-cells comprise 23% of lymphoid cells. Mature B-cells comprise 9% of lymphoid cells and are polyclonal with a kappa:lambda ratio of 1.4. (JPM:db; 10/04/2018) . 02 Pathologist provided ICD-10: D72.819, D53.9, D69.6 . 02 CPT . 139178, 722329, 898397, 225720, 255112, 191889, 650581, 537384, 579188 Specimen Comment: A courtesy copy of this report has been sent to Specimen Comment: [phone], , , . Specimen Comment: Report sent to ,DR JO,DR QUAN / DR VAIL Specimen Comment: A duplicate report has been generated due to demographic updates. Performed at: 01 [facility] [address] [id number] MD Reggie Erickson MD Phone: [phone] Performed at: 02 [facility] [address] [place], [place] [id number] MD Samson Quan MD Phone: [phone]
== END 2018-10-03 17:35 | DRG 871 ==
LOC: ER 08:18 → 1 WEST ICU 11:30 → 6 SOUTH 09-27 16:30
PROVIDERS: ADMIT Internal Medicine; ATTEND Internal Medicine
PROC: 5A09457 Assistance with Respiratory Ventilation, 24-96 Consecutive Hours, Continuous Positive Airway Pressure (ICD-10-PCS; 2018-09-25)
PROC: 5A1D70Z Performance of Urinary Filtration, Intermittent, Less than 6 Hours Per Day (ICD-10-PCS; 2018-09-26)
PROC: 5A1D70Z Performance of Urinary Filtration, Intermittent, Less than 6 Hours Per Day (ICD-10-PCS; 2018-09-28)
PROC: 5A1D70Z Performance of Urinary Filtration, Intermittent, Less than 6 Hours Per Day (ICD-10-PCS; 2018-09-30)
PROC: 5A1D70Z Performance of Urinary Filtration, Intermittent, Less than 6 Hours Per Day (ICD-10-PCS; principal; 2018-10-03)
DX: A41.9 Sepsis, unspecified organism (principal); G92 Toxic encephalopathy; I50.33 Acute on chronic diastolic (congestive) heart failure; J96.01 Acute respiratory failure with hypoxia; N18.6 End stage renal disease; E43 Unspecified severe protein-calorie malnutrition; J15.6 Pneumonia due to other Gram-negative bacteria; R65.21 Severe sepsis with septic shock; I13.2 Hypertensive heart and chronic kidney disease with heart failure and with stage 5 chronic kidney disease, or end stage renal disease; L03.116 Cellulitis of left lower limb; I42.9 Cardiomyopathy, unspecified; D61.818 Other pancytopenia; E11.22 Type 2 diabetes mellitus with diabetic chronic kidney disease; I48.91 Unspecified atrial fibrillation; I25.10 Atherosclerotic heart disease of native coronary artery without angina pectoris; E78.5 Hyperlipidemia, unspecified; K21.9 Gastro-esophageal reflux disease without esophagitis; F41.9 Anxiety disorder, unspecified; F32.9 Major depressive disorder, single episode, unspecified; E11.51 Type 2 diabetes mellitus with diabetic peripheral angiopathy without gangrene; E21.3 Hyperparathyroidism, unspecified; F03.90 Unspecified dementia, unspecified severity, without behavioral disturbance, psychotic disturbance, mood disturbance, and anxiety; M19.90 Unspecified osteoarthritis, unspecified site; H54.8 Legal blindness, as defined in USA; D53.9 Nutritional anemia, unspecified; G47.30 Sleep apnea, unspecified; G20 Parkinson's disease; M54.9 Dorsalgia, unspecified; R33.8 Other retention of urine; E87.5 Hyperkalemia; Y95 Nosocomial condition; N40.1 Benign prostatic hyperplasia with lower urinary tract symptoms; E78.00 Pure hypercholesterolemia, unspecified; Z88.6 Allergy status to analgesic agent; Z88.2 Allergy status to sulfonamides; Z86.73 Personal history of transient ischemic attack (TIA), and cerebral infarction without residual deficits; Z85.828 Personal history of other malignant neoplasm of skin; Z85.46 Personal history of malignant neoplasm of prostate; Z95.1 Presence of aortocoronary bypass graft; Z82.49 Family history of ischemic heart disease and other diseases of the circulatory system; Z91.19 Patient's noncompliance with other medical treatment and regimen; Z79.4 Long term (current) use of insulin; Z95.0 Presence of cardiac pacemaker; Z88.8 Allergy status to other drugs, medicaments and biological substances; Z87.11 Personal history of peptic ulcer disease; I25.2 Old myocardial infarction; Z95.5 Presence of coronary angioplasty implant and graft; Z98.1 Arthrodesis status; Z68.34 Body mass index [BMI] 34.0-34.9, adult
CPT/HCPCS: 31500; 36415; 36600; 38222; 70450; 71045; 71250; 72125; 77012; 80048; 80053; 80202; 82805; 82962; 83010; 83540; 83550; 83605; 83880; 84484; 85025; 85045; 85610; 87040; 87641; 88184; 88185; 88237; 88305; 88311; 88313; 93005; 94640; 94660; 94760; 96361; 96375; 99152; J1644; J1815; J2250; J2310; J2543; J3010; J3370; J3490; J7030; J7040; J7620; P9046; 97110; 97116; 99291-25

== ENCOUNTER 2019-01-12 02:47 | Inpatient (IN) | payer MEDICARE, BC ==
[~2019-01-12] VITALS: Ht 175.3 cm; Wt 83.2 kg
[~2019-01-12 02:47] MED LIST changes: -AMLO10TA6 PO; +AMLO10TA8 PO; +DILT120C71 PO; -DILT120C80 PO; +DILT120C85 PO; -GEMF600T4 PO; +GEMF600T8 PO; +HALO0.5T PO; +LIPA1CAP PO; +MICO85PO2 TP; +MIDO10TA PO; -OXYC-323 PO; +OXYC1TAB15 PO; +PANT20TA2 PO; +PREG150C PO; +ROPI0.5T PO; +[UNRECOGNIZED DRUG - CODE] IV
[2019-01-12 04:00] VITALS: BP 95/52
[2019-01-12] MEDS ORDERED: SEVE800T9 PO (05:32)
[2019-01-12] MEDS ORDERED: INSU100V8 SQ (05:32)
[2019-01-12] MEDS ORDERED: MELA3TAB2 PO (05:32)
[2019-01-12] MEDS ORDERED: ACET325T9 PO (05:32)
[2019-01-12] MEDS ORDERED: ROPI1TAB PO (05:32)
[2019-01-12] MEDS ORDERED: HEPA500022 SQ (05:32)
[2019-01-12] MEDS ORDERED: HALO2TAB PO (05:32)
[2019-01-12] MEDS ORDERED: BUPR150T6 PO (05:32)
[2019-01-12] MEDS ORDERED: BUSP5TAB PO (05:32)
[2019-01-12] MEDS ORDERED: INSU100C SQ (05:32)
[2019-01-12] MEDS ORDERED: FAMO20TA5 PO (05:32)
[2019-01-12] MEDS ORDERED: C.DIFF MED SCREEN BY RX. MC ONE (06:00)
[2019-01-12 07:00] VITALS: BP 111/60
--- NOTE | 2019-01-12 10:12 | HP ---
ADMIT DATE: 01/12/2019 HISTORY OF PRESENT ILLNESS: The patient is an 83-year-old male patient, a resident at [facility] who apparently was noted to be hypotensive, hypoxic, and was transferred to Emergency Room at [facility] where he has had according to the ER physician 2 runs of V-tach, although his serum potassium was only 3.7 and therefore, a decision was made to transfer him to [facility] as he has end-stage renal disease, on hemodialysis and to be evaluated by the personal lines account executive. PAST MEDICAL HISTORY: Significant for hypertension, hyperlipidemia, coronary artery disease, atrial fibrillation, dementia, gastroesophageal reflux disease, anemia of chronic kidney disease, peptic ulcer disease, depression, and osteoarthritis. He has end-stage renal disease, on hemodialysis. He is also known to have type 2 diabetes and hyperparathyroidism. He is also known to have severe pulmonary hypertension. He is very sensitive to fluid shift. PAST SURGICAL HISTORY: Significant for coronary artery bypass graft surgery with PCI with stent deployment, permanent pacemaker placement, left arm arteriovenous fistula, pain stimulator in his back as well as partial amputation of his right second toe. ALLERGIES: HE IS ALLERGIC TO STATIN, GABAPENTIN, MORPHINE, SULFA AND TRIMETHOPRIM. FAMILY HISTORY: Positive for coronary artery disease. SOCIAL HISTORY: Apparently retired, lives with his . He does not drink alcohol, does not smoke or use any drugs. REVIEW OF SYSTEMS: As per history of present illness. PHYSICAL EXAMINATION: GENERAL: When I examined him this morning, he was sitting actually comfortably in his recliner, in no apparent distress. He was pale, but no jaundice, cyanosis, or thyromegaly. No jugular venous distension. No limb edema. VITAL SIGNS: His heart rate was 75, blood pressure was 111/60, temperature was 97.4, respiratory rate was 18 and oxygen saturation was 96%. HEAD, EYES, EARS, NOSE AND THROAT: Showed normocephalic, atraumatic. NECK: Supple. HEART: Showed normal first and second sounds. No gallop, rub or murmur. CHEST: Shows central trachea, equal bilateral expansion, air entry. Vesicular seconds. No crepitation or rhonchi. ABDOMEN: Distended, soft, nontender. NEUROLOGIC: He is legally blind, but all other cranial nerves are intact. EXTREMITIES: He moves extremities without difficulty. He ambulates with a walker. LABORATORY WORK: Showed that his potassium was 3.7. Apparently when he was in the Emergency Room of [facility], he has 2 runs of V-tach. PLAN: My plan is to consult the Cardiology team as well as Nephrology and as he requires hemodialysis, meanwhile we will continue with all his other medications. I will check his magnesium and decide on further management accordingly. NAOMY RAMOS MD DR: RODGER/elpidio JOB#: [id number] / [id number]
[2019-01-12] MEDS: HALOPERIDOL 2 MG/ML ORAL.CONC. PO SCH ×2 (10:15→21:16)
[2019-01-12 11:07] VITALS: BP 105/54
--- NOTE | 2019-01-12 11:59 | PDOC2 ---
CONSULT Date of Consult Date of Consult DATE: 01/12/19 TIME: 11:55 Reason for Consult Reason for Consult: ESRD Referring Physician Referring Physician: RICHARD Identification/Chief Complaint Chief Complaint WEAKNESS, LOW BP AND VTACH Source Source: Chart review History of Present Illness Reason for Visit: THIS IS AN 83 YR OLD ESRD PT ON OP HD TTS. NOTED TO BE WEAK AND HYPOTENSIVE AND NOTED TO HAVE V TACH WHILE AT THE ER IN [place]. CONNOR WNL. PT SUBSEQUENTLY TRANSFERRED HERE. ESRD IS DUE TO DM II AND HTN. LABS OUTSIDE C/W HIS ESRD STATUS. PT IS AT BASELINE CONFUSED Past Medical History Cardiovascular: AFIB, CAD, CHF, HTN, VT, Syncope, Hyperlipidemia, Other Pulmonary: Pneumonia, Other CENTRAL NERVOUS SYSTEM: Periperal neuropathy, Seizure, Other GI: Peptic Ulcer disease Heme/Onc: Anemia NOS Psych: Anxiety, Depression Rheumatologic: Other Renal/: Chronic renal failure, Prostate Ca., Other Endocrine: Diabetes, Hyperparathyroidism Past Surgical History Past Surgical History: Pacemaker, CABG, Cataract Removal, Hernia Repair, Tonsillectomy, Other Family History Family History: Heart Disease Social History ALCOHOL: none Drugs: None Lives: with Family Domestic Violence: Neg Current Medications Current Medications Current Medications Pharmacy Consult (C.diff Med Screen By Rx) 1 each 1X ONCE [facility] ; Start 01/12/19 at 06:00; Stop 01/12/19 at 06:01; Status DC Acetaminophen (Tylenol) 650 mg PRN Q6HRS PRN PO MILD PAIN / TEMP; Start at 10:00 Alprazolam (Xanax) 0.5 mg HS PO ; Start 01/12/19 at 21:00 Bupropion HCl (Wellbutrin Xl) 75 mg DAILY PO ; Start 01/12/19 at 10:00 Buspirone HCl (Buspar) 7.5 mg BID PO ; Start 01/12/19 at 10:00 Cholestyramine Resin (Questran Light) 4 gm BID@1000,2200 PO ; Start 01/12/19 at 10:00 Famotidine (Pepcid) 20 mg DAILYAC PO ; Start 01/12/19 at 10:00 Heparin Sodium (Porcine) (Heparin Sodium) 5,000 unit BID SQ ; Start 01/12/19 at 10:00 Metoprolol Succinate (Toprol Xl) 25 mg DAILY PO ; Start 01/12/19 at 10:00 Pregabalin (Lyrica) 75 mg BID PO ; Start 01/12/19 at 10:00 Sevelamer Carbonate (Renvela) 800 mg TIDWMEALS PO ; Start 01/12/19 at 12:00 Haloperidol Lactate (HALDOL 2mg ORAL CONC) 0.5 mg BID PO ; Start 01/12/19 at 10: 15 Insulin Glargine (Lantus) 15 units QHS SQ ; Start 01/12/19 at 21:00 Insulin Human Lispro (HumaLOG) 7 units TIDWMEALS SQ ; Start 01/12/19 at 12:00 Magnesium Oxide (Magnesium Oxide) 400 mg DAILY PO ; Start 01/12/19 at 10:00 Non-Formulary Medication (Melatonin ) 1 tab QHS PO ; Start 01/12/19 at 21:00; Status UNV Midodrine (Proamatine) 10 mg ACY029 PO ; Start 01/12/19 at 13:00 Ropinirole HCl (Requip) 1 mg QHS PO ; Start 01/12/19 at 14:00 Active Scripts Active Reported Requip (Ropinirole Hcl) 1 Mg Tablet 1 Tab PO QHS Renvela (Sevelamer Carbonate) 800 Mg Tablet 800 Mg PO TIDWMEALS Melatonin 3 Mg Tablet 1 Tab PO QHS Lantus (Insulin Glargine,Hum.rec.anlog) 100 Unit/1 Ml Vial 15 Unit SQ HS Humalog (Insulin Lispro) 100 Unit/1 Ml Cartridge 7 Unit SQ TIDAC Heparin Sod 5,000 Unit/ 0.5 Ml (Heparin Sodium,Porcine/Pf) 5,000 Unit/0.5 Ml Vial 5,000 Unit SQ BID Haloperidol 2 Mg Tablet 0.5 Mg PO BID Famotidine 20 Mg Tablet 20 Mg PO DAILYAC Buspirone Hcl 5 Mg Tablet 7.5 Mg PO BID Bupropion Xl (Bupropion Hcl) 150 Mg Tab.er.24h 75 Mg PO DAILY Tylenol (Acetaminophen) 325 Mg Tablet 650 Mg PO PRN Q6HRS PRN Lyrica (Pregabalin) 75 Mg Capsule 1 Cap PO BID Alprazolam 0.5 Mg Tablet 1 Tab PO HS Midodrine Hcl 10 Mg Tablet 10 Mg PO TID Magnesium Oxide 400 Mg Tablet 1 Tab PO DAILY Prevalite Packet (Cholestyramine/Aspartame) 4 Gm Powd.pack 4 Gm PO BID Toprol Xl (Metoprolol Succinate) 25 Mg Tab.er.24h 1 Tab PO DAILY Allergies Allergies: Coded Allergies: Qhdlcue-Fre-Lyg Reductase Inhibitor (Verified Allergy, Severe, Brain swelling. , 02/22/18) Pt was taking Gabapentin with a Statin and per . "It almost killed him." gabapentin (Verified Allergy, Severe, Brain swelling, 02/22/18) Per pt had Gabapentin with a Statin and it caused brain swelling, "almost killed him." sulfamethoxazole (Verified Allergy, Intermediate, 02/22/18) trimethoprim (Verified Allergy, Intermediate, 02/22/18) morphine (Verified Adverse Reaction, Severe, 02/22/18) ROS Review of System CONFUSED Physical Exam General: Alert, Cooperative, No acute distress HEENT: Atraumatic, PERRLA, EOMI, Mucous membr. moist/pink Lungs: Clear to auscultation Heart: Regular rate Abdomen: Normal bowel sounds, Soft, No tenderness Extremities: No clubbing, No cyanosis, No edema Skin: No breakdown, No significant lesion Neuro: Other (CONFUSED) Psych/Mental Status: Other (CONFUSED) MUSCULOSKELETAL: No deformity, No swelling Vitals VITALS Vital Signs Date Time Temp Pulse Resp B/P (MAP) Pulse Ox O2 Delivery O2 Flow Rate FiO2 01/12/19 11:07 97.4 80 18 105/54 (71) 95 97.4 01/12/19 08:00 Room Air Labs Labs Laboratory Tests Test 01/12/19 07:29 01/12/19 10:35 Glucose (Fingerstick) 112 mg/dL (70-99) Magnesium Level 2.1 mg/dL (1.8-2.4) Laboratory Tests Test 01/12/19 07:29 01/12/19 10:35 Glucose (Fingerstick) 112 mg/dL (70-99) Magnesium Level 2.1 mg/dL (1.8-2.4) Assessment/Plan Assessment/Plan IMP HYPOTENSION-BETTER DECONDITIONING V TACH DM II HTN ANEMIA ESRD-TTS PLAN HD TOMORROW CARDIOLOGY EVAL ARANESP THERAPY WILL FOLLOW ARACELI CANSECO MD Jan 12, 2019 11:59
[2019-01-12] MEDS: INSULIN LISPRO 300 UNITS/3 ML INSULN.PEN. SQ SCH ×2 (12:00→17:20)
--- NOTE | 2019-01-12 12:19 | NUR ---
SS following for discharge planning. SS received notification that pt was from [facility], ; fax [phone]. 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 Pt has a history of admissions at [facility] and has had past stays at [facility], [facility] and [facility] and previous services with [facility] in [place]. SS will continue to follow for discharge needs.
[2019-01-12] MEDS: SEVELAMER CARBONATE 800 MG TABLET. PO SCH ×2 (12:21→17:05)
[2019-01-12] MEDS: PREGABALIN 75 MG CAPSULE PO SCH ×2 (12:21→21:18)
[2019-01-12] MEDS: FAMOTIDINE 20 MG TABLET. PO SCH (12:22)
[2019-01-12] MEDS: MAGNESIUM OXIDE 400 MG TABLET PO SCH (12:22)
[2019-01-12] MEDS: buPROPion XL 150 MG TAB.ER.24H. PO SCH (12:22)
[2019-01-12] MEDS: busPIRone 5 MG TABLET. PO SCH ×2 (12:22→21:17)
[2019-01-12] MEDS: METOPROLOL SUCC 24HR ER 25 MG TAB.ER.24H. PO SCH (12:23)
[2019-01-12] MEDS: CHOLESTYRAMINE/ASPARTAME 4 GM PACKET PO SCH ×2 (12:23→21:14)
[2019-01-12] MEDS: HEPARIN for SUB-Q USE 5,000 UNIT/ML VIAL. SQ SCH ×2 (12:30→21:16)
--- NOTE | 2019-01-12 13:14 | PDOC2 ---
TARIQYAHAIRA COLLINS BULLDOZER OPERATOR 01/12/19 1314: CARDIAC CONSULT DATE OF CONSULT Date of Consult DATE: 01/12/19 TIME: 13:06 REASON FOR CONSULT Reason for Consult: Multiple runs of v-tach REFERRING PHYSICIAN Referring Physician: Dr. Aguilar SOURCE Source: Chart review, Patient HISTORY OF PRESENT ILLNESS HISTORY OF PRESENT ILLNESS This is an 83 yo male who initially presented to [facility] from nursing facility secondary to hypotension and hypoxia. CXR upon arrival showed small left pleural effusion. Potassium level 3.7. Reportedly had a run of v- tach while in ED at [facility]. Patient was then transferred to [facility] for further evaluation and care. Telemetry strips not available. No acute events noted on telemetry here. Patient poor historian and unable to prior specific details of events leading up to arrival. States he feels pretty well and denies any chest pain, palpitations, dizziness, diaphoresis, or shortness of breath. PAST MEDICAL HISTORY Past Medical History Cardiovascular: AFIB, CAD (s/p CABG ), CHF, HTN, PA, Hyperlipidemia, Other ( cardiomyopathy ), SSS Pulmonary: Pneumonia, Other (JOSHUA) GI: GERD Heme/Onc: Anemia NOS, Cancer (skin) Musculoskeletal: low back pain, Osteoarthritis, chronic pain syndrome Renal/: ESRD, urinary incontinence, BPH Endocrine: Diabetes Neuro: seizures, SAH, parkinsons? PAST SURGICAL HISTORY Past Surgical History Pacemaker, Tonsillectomy, CABG FAMILY HISTORY Family History: Heart Disease SOCIAL HISTORY Social History Smoke: No ALCOHOL: none Lives: rehab facility CURRENT MEDICATIONS CURRENT MEDICATIONS Current Medications Medications (Trade) Dose Ordered Sig/Tracy Route PRN Reason Start Time Stop Time Status Last Admin Dose Admin Bupropion HCl (Wellbutrin Xl) 75 mg DAILY PO 01/12/19 10:00 01/12/19 12:22 Buspirone HCl (Buspar) 7.5 mg BID PO 01/12/19 10:00 01/12/19 12:22 Cholestyramine Resin (Questran Light) 4 gm BID@1000,2200 PO 01/12/19 10:00 01/12/19 12:23 Famotidine (Pepcid) 20 mg DAILYAC PO 01/12/19 10:00 01/12/19 12:22 Heparin Sodium (Porcine) (Heparin Sodium) 5,000 unit BID SQ 01/12/19 10:00 01/12/19 12:30 Metoprolol Succinate (Toprol Xl) 25 mg DAILY PO 01/12/19 10:00 01/12/19 12:23 Pregabalin (Lyrica) 75 mg BID PO 01/12/19 10:00 01/12/19 12:21 Sevelamer Carbonate (Renvela) 800 mg TIDWMEALS PO 01/12/19 12:00 01/12/19 12:21 Magnesium Oxide (Magnesium Oxide) 400 mg DAILY PO 01/12/19 10:00 01/12/19 12:22 ALLERGIES ALLERGIES: Coded Allergies: Sohiubi-Flq-Aix Reductase Inhibitor (Verified Allergy, Severe, Brain swelling. , 02/22/18) Pt was taking Gabapentin with a Statin and per . "It almost killed him." gabapentin (Verified Allergy, Severe, Brain swelling, 02/22/18) Per pt had Gabapentin with a Statin and it caused brain swelling, "almost killed him." sulfamethoxazole (Verified Allergy, Intermediate, 02/22/18) trimethoprim (Verified Allergy, Intermediate, 02/22/18) morphine (Verified Adverse Reaction, Severe, 02/22/18) ROS Review of System 14 point ROS conducted with pertinent positives noted above in HPI, although limited PHYSICAL EXAM General: Alert, Cooperative, No acute distress HEENT: Atraumatic, Mucous membr. moist/pink Lungs: Other (diminished bases) Heart: Regular rate, Normal S1, Normal S2, Other (2/6 systolic murmur ) Abdomen: Other (obese) Extremities: No edema, Other (venous stasis changes to bilateral LE) Skin: No significant lesion Neuro: Normal speech, Sensation intact Psych/Mental Status: Other (confused) MUSCULOSKELETAL: Osteoarthritic changes both hands VITALS VITALS Vital Signs Date Time Temp Pulse Resp B/P (MAP) Pulse Ox O2 Delivery O2 Flow Rate FiO2 01/12/19 12:23 80 105/54 01/12/19 11:07 97.4 18 95 97.4 01/12/19 08:00 Room Air LABS Lab: Laboratory Tests Test 01/12/19 07:29 01/12/19 10:35 Glucose (Fingerstick) 112 mg/dL (70-99) Magnesium Level 2.1 mg/dL (1.8-2.4) ECHOCARDIOGRAM ECHOCARDIOGRAM <Conclusion> Grossly normal LV function. EF 50-55% Grossly normal wall motion. Not well evaluated due to limited images. There is moderate left pleural effusion. DATE: 08/27/18 1538 <Conclusion> The left ventricular systolic function is normal. The Ejection Fraction is 55%. There is normal LV segmental wall motion. There is a pacemaker lead in the right ventricle. Trace mitral regurgitation. Moderate tricuspid regurgitation. The PA pressure was estimated at 27 mmHg. There is no evidence of significant pericardial effusion. DATE: 10/26/18 1248 HEART CATH HEART CATH Conclusion This patient has severe havasupai vessel coronary artery disease including left main disease. His grafts are open but in the graft to the PDA there is disease of the havasupai PDA with a significant stenosis. The left main has an ostial lesion and it feeds a small circumflex and a small marginal but due to the LAD being totally occluded at the ostium there is no backflow from the graft to the diagonal of the graft to the LAD. The obtuse marginal is also 100% occluded therefore there is no back flow into the circumflex and the other marginal from that graft. The patient's MPI showed lateral wall ischemia and this may be due to the stenosis of the left main and the circumflex. Since this is a protected left main of sorts because of open grafts to the diagonal the LAD and the obtuse marginal we may consider attempting to stent the left main ostium and the mid segment of the LAD. In addition to this the PDA may be able to be stented via the saphenous vein graft to the PDA. However in view of the patient's renal insufficiency I would rather wait 1-2 weeks before bringing the patient back to attempt to do the multi-vessel stenting. DATE: 11/27/14 1601 ASSESSMENT/PLAN ASSESSMENT/PLAN 1. Arrhythmia; possible run of V-tach at [facility]. No acute events on telemetry thus far here. Recent echo with normal LV systolic function 2. Hypotension; chronic. remains low-normotensive 3. Chronic diastolic CHF; appears compensated 4. Weakness, h/o multiple falls and parkinsonism. Poor OAC candidate hence MIGUELANGEL closure device 5. CAD s/p previous CABG: clinically stable. CP free 6. PAFIB; s/p Watchman procedure (v-paced) 7. ESRD on HD 8. SSS s/p PPM; [employer] Recommendation Check Mg- replace as warranted Continue Midodrine Secondary prevention measures Add ASA Monitor telemetry overnight Fluid offloading/management via HD as per nephrology WALKER WHITE MD 01/12/19 1631: CARDIAC CONSULT ASSESSMENT/PLAN ASSESSMENT/PLAN Patient seen and examined. Agree with above nurse practitioner note. 83-year-old male well known to our service. He has severe autonomic dysfunction. Continue Midrin for now. He is cool to touch at his extremities likely suggestive of a low flow state although it is unclear if he'll benefit from addition of inotropic support. He likely also has peripheral vascular disease. He is a poor candidate for any significant revascularization measures. Supportive care for now. If he does not improve over the next 24 hours back to his baseline that we could consider initiation of inotropic support. YAHAIRA POTTER APRN Jan 12, 2019 13:14 WALKER WHITE MD Jan 12, 2019 16:31
[2019-01-12] MEDS: rOPINIRole 1 MG TABLET. PO SCH ×2 (14:00→21:18)
[2019-01-12 14:49] VITALS: BP 106/46
[2019-01-12] MEDS: ACETAMINOPHEN 325 MG TABLET. PO PRN (16:57)
[2019-01-12] MEDS: MIDODRINE 5 MG TABLET PO SCH (16:58)
[2019-01-12 19:42] VITALS: BP 96/46
[2019-01-12] MEDS ORDERED: NON FORMULARY ITEM (Melatonin 1 TAB) PO SCH (21:00)
[2019-01-12] MEDS: INSULIN GLARGINE 300 UNITS/3 ML INSULN.PEN. SQ SCH (21:16)
[2019-01-12] MEDS: ALPRAZolam 0.5 MG TABLET PO SCH (21:18)
[2019-01-12 23:34] VITALS: BP 92/55
[2019-01-13 03:45] VITALS: BP 100/52
[2019-01-13 05:35] LABS: BASO % 1 % (0-3); EOS % 1 % (0-3); HEMATOCRIT 36.2 % (39.0-53.0); HEMOGLOBIN 11.6 g/dL (13.0-17.5); LYMPH % 22 % (24-48); MEAN CORPUSCULAR HEMOGLOBIN 36 pg (25-35); MEAN CORPUSCULAR HGB CONC 32 g/dL (31-37); MEAN CORPUSCULAR VOLUME 112 fL (79-100); MONO # 0.6 x10^3/uL (0.0-1.1); MONO % 13 % (0-9); NEUT % 64 % (31-73); PLATELET COUNT 98 x10^3/uL (140-400); RED BLOOD COUNT 3.24 x10^6/uL (4.30-5.70); RED CELL DISTRIBUTION WIDTH 17.7 % (11.5-14.5); WHITE BLOOD COUNT 4.6 x10^3/uL (4.0-11.0)
[2019-01-13 06:16] LABS: CALCIUM 9.2 mg/dL (8.5-10.1); CREATININE 4.8 mg/dL (0.7-1.3); GFR 11.7; POTASSIUM 3.7 mmol/L (3.5-5.1)
[2019-01-13] MEDS: MIDODRINE 5 MG TABLET PO SCH ×3 (06:24→18:07)
[2019-01-13 07:10] VITALS: BP 97/51
[2019-01-13] MEDS ORDERED: IV NORMAL SALINE 1000ML BAG 1,000 ML IV PRN ×2 (07:44)
[2019-01-13] MEDS ORDERED: ALBUMIN HUMAN 25% 200 ML IV PRN (07:45)
[2019-01-13] MEDS ORDERED: DIALYSIS PATIENT. MC PRN ×2 (07:45)
[2019-01-13] MEDS: SEVELAMER CARBONATE 800 MG TABLET. PO SCH ×3 (08:00→17:53)
[2019-01-13] MEDS: INSULIN LISPRO 300 UNITS/3 ML INSULN.PEN. SQ SCH ×3 (08:00→17:59)
[2019-01-13 08:05] LABS: PLT ESTIMATE ADEQUATE (ADEQUATE)
[2019-01-13] MEDS: METOPROLOL SUCC 24HR ER 25 MG TAB.ER.24H. PO SCH (09:00)
[2019-01-13] MEDS: CHOLESTYRAMINE/ASPARTAME 4 GM PACKET PO SCH ×2 (10:00→21:46)
--- NOTE | 2019-01-13 10:55 | PDOC ---
Provider Note Provider Note No new issues. Continue current meds. Discussed with Dr. Aguilar. Ok to DC from CV standpoint WALKER WHITE MD Jan 13, 2019 10:55
--- NOTE | 2019-01-13 10:58 | PDOC ---
Renal-Progress Notes Subjective Notes Notes NONE History of Present Illness Hx of present illness STABLE Vitals Vitals Vital Signs Date Time Temp Pulse Resp B/P (MAP) Pulse Ox O2 Delivery O2 Flow Rate FiO2 01/13/19 07:10 96.8 79 20 97/51 (66) 98 Room Air 96.8 Weight Weight [ ] I.O. Intake and Output Intake and Output 01/13/19 07:00 Intake Total 740 ml Output Total 0 ml Balance 740 ml Intake Oral 740 ml Output Urine Total 0 ml # Bowel Movements 1 Labs Labs Laboratory Tests Test 01/12/19 21:00 01/13/19 04:00 01/13/19 07:20 Glucose (Fingerstick) 86 mg/dL (70-99) 119 mg/dL (70-99) White Blood Count 4.6 x10^3/uL (4.0-11.0) Red Blood Count 3.24 x10^6/uL (4.30-5.70) Hemoglobin 11.6 g/dL (13.0-17.5) Hematocrit 36.2 % (39.0-53.0) Mean Corpuscular Volume 112 fL (79-100) Mean Corpuscular Hemoglobin 36 pg (25-35) Mean Corpuscular Hemoglobin Concent 32 g/dL (31-37) Red Cell Distribution Width 17.7 % (11.5-14.5) Platelet Count 98 x10^3/uL (140-400) Neutrophils (%) (Auto) 64 % (31-73) Lymphocytes (%) (Auto) 22 % (24-48) Monocytes (%) (Auto) 13 % (0-9) Eosinophils (%) (Auto) 1 % (0-3) Basophils (%) (Auto) 1 % (0-3) Neutrophils # (Auto) 3.0 x10^3uL (1.8-7.7) Lymphocytes # (Auto) 1.0 x10^3/uL (1.0-4.8) Monocytes # (Auto) 0.6 x10^3/uL (0.0-1.1) Eosinophils # (Auto) 0.0 x10^3/uL (0.0-0.7) Basophils # (Auto) 0.0 x10^3/uL (0.0-0.2) Platelet Estimate Adequate (ADEQUATE) Large Platelets Present Macrocytosis Present Sodium Level 141 mmol/L (136-145) Potassium Level 3.7 mmol/L (3.5-5.1) Chloride Level 101 mmol/L (98-107) Carbon Dioxide Level 28 mmol/L (21-32) Anion Gap 12 (6-14) Blood Urea Nitrogen 36 mg/dL (8-26) Creatinine 4.8 mg/dL (0.7-1.3) Estimated GFR (Cockcroft-Gault) 11.7 Glucose Level 187 mg/dL (70-99) Calcium Level 9.2 mg/dL (8.5-10.1) Assessment Assessment IMP HYPOTENSION-BETTER DECONDITIONING V TACH DM II HTN ANEMIA ESRD-TTS PLAN HD TODAY UF TO [facility] JOAQUIM TAMAYO THERAPY ARACELI CANSECO MD Jan 13, 2019 10:58
[2019-01-13 12:10] VITALS: BP 98/41
[2019-01-13] MEDS: busPIRone 5 MG TABLET. PO SCH ×2 (12:59→21:25)
[2019-01-13] MEDS: PREGABALIN 75 MG CAPSULE PO SCH ×2 (12:59→21:24)
[2019-01-13] MEDS: FAMOTIDINE 20 MG TABLET. PO SCH (13:00)
[2019-01-13] MEDS: ASPIRIN ENTERIC COATED 81 MG TABLET.DR. PO SCH (13:00)
[2019-01-13] MEDS: buPROPion XL 150 MG TAB.ER.24H. PO SCH (13:00)
[2019-01-13] MEDS: MAGNESIUM OXIDE 400 MG TABLET PO SCH (13:00)
[2019-01-13] MEDS: HEPARIN for SUB-Q USE 5,000 UNIT/ML VIAL. SQ SCH ×2 (13:02→21:43)
[2019-01-13] MEDS: HALOPERIDOL 2 MG/ML ORAL.CONC. PO SCH ×2 (13:03→21:27)
[2019-01-13 15:00] VITALS: BP 104/55
[2019-01-13 19:30] VITALS: BP 101/48
--- NOTE | 2019-01-13 20:54 | PN ---
DATE: 01/13/2019 SUBJECTIVE: The patient is resting slightly propped up in bed, having his scheduled hemodialysis. On questioning him, he denied any complaint. The nursing staff did not voice any concerns that he has an uneventful night, has no further episodes of V-tach. Denied any chest pain or shortness of breath. He was evaluated by the Cardiology team and no new recommendations were done except to replenish his magnesium and potassium was only 3.7 yesterday when he was seen in the Emergency Room of [facility]. PHYSICAL EXAMINATION: GENERAL: When I examined him this morning, he looked pale. No jaundice, cyanosis or thyromegaly. No jugular venous distention. No limb edema. VITAL SIGNS: His heart rate was 79, blood pressure was 97/51, temperature was 96.8, respiratory rate was 20, and oxygen saturation was 98% on room air. HEAD, EYES, EARS, NOSE AND THROAT: Normocephalic and atraumatic. NECK: Supple. CARDIAC: Normal first and second heart sounds. No gallop, rub or murmur. CHEST: Clear to auscultation. No crepitation or rhonchi. ABDOMEN: Distended, soft and nontender. NEUROLOGICAL: He is legally blind but otherwise all other cranial nerves are intact. He moves extremities without difficulty, is mostly bedbound, chair bound, has an arteriovenous fistula in his left upper extremity. He is extremely oliguric, completely anuric and hemodialysis dependent. LABORATORY DATA: As of this morning showed a white cell count 4600; hemoglobin 11.6; hematocrit 36; MCV 112 and platelet count of 98,000. Serum sodium was 141, potassium 3.7, chloride 101, bicarbonate 28, anion gap of 12, BUN 36, creatinine 4.8, estimated GFR was 12, blood glucose was 187 and calcium was 9.2, magnesium was 2.1. ASSESSMENT AND PLAN: 1. Questionable nonsustained ventricular tachycardia. The patient has severe walker river vessel coronary artery disease including left main disease. Apparently, no evidence of any further arrhythmias were detected in Telemetry and his recent echocardiogram, which showed normal left ventricular systolic function. The patient continued to have chronic hypotension for which he is on midodrine. 2. Chronic diastolic congestive heart failure, seems to be well compensated. 3. Weakness with multiple falls secondary to probably Parkinson disease and orthostatic hypotension. He is not a candidate for oral anticoagulation and he has had the Watchman procedure done; end-stage renal disease, on hemodialysis on Tuesday, and Tuesday. Plan is to continue with midodrine, continue with all other medication and continue on Telemetry monitoring. NAOMY RAMOS MD DR: RODGER/elpidio JOB#: [id number] / [id number]
[2019-01-13] MEDS: rOPINIRole 1 MG TABLET. PO SCH (21:24)
[2019-01-13] MEDS: ALPRAZolam 0.5 MG TABLET PO SCH (21:25)
[2019-01-13] MEDS: INSULIN GLARGINE 300 UNITS/3 ML INSULN.PEN. SQ SCH (21:43)
[2019-01-13 23:43] VITALS: BP 104/68
[2019-01-14 03:00] VITALS: BP 98/48
[2019-01-14] MEDS: MIDODRINE 5 MG TABLET PO SCH ×3 (05:52→18:11)
[2019-01-14 07:25] VITALS: BP 110/48
[2019-01-14] MEDS: DEXTROSE 50% 25 GM / 50ML DISP.SYRIN. IV ONE ×2 (07:45→08:08)
[2019-01-14] MEDS: INSULIN LISPRO 300 UNITS/3 ML INSULN.PEN. SQ SCH ×3 (08:00→16:53)
--- NOTE | 2019-01-14 08:00 | NUR ---
0733 PATIENTS BLOOD SUGAR IS 57. PATIENT NOT AROUSING TO STERNAL RUB. DR RICHARD LLAMAS IN REGARDS TO PATIENTS BLOOD SUGAR. ORDERS RECEIVED TO GIVE IV DEXTROSE. PATIENTS IV FLUSHED AND PATIENTS IV IS LEAKING. ORAL DEXTROSE GEL GIVEN WHILE WAITING FOR NEW IV. PATIENTS BLOOD GLUCOSE RECHECKED AND STILL AT 57.NEW IV STARTED IN RIGHT THUMB. PATIENT GIVEN 12.5GM OF IV DEXTROSE. PATIENTS BLOOD GLUCOSE RECHECKED AND NOW IS 102. ENCOURAGED PATIENT TO DRINK JUICE AND EAT BREAKFAST WITH ASSIST FROM THIS RN. WILL CONTINUE TO MONITOR PATIENT.
[2019-01-14] MEDS: MAGNESIUM OXIDE 400 MG TABLET PO SCH (08:10)
[2019-01-14] MEDS: FAMOTIDINE 20 MG TABLET. PO SCH (08:10)
[2019-01-14] MEDS: SEVELAMER CARBONATE 800 MG TABLET. PO SCH ×3 (08:10→18:11)
[2019-01-14] MEDS: METOPROLOL SUCC 24HR ER 25 MG TAB.ER.24H. PO SCH (08:10)
[2019-01-14] MEDS: busPIRone 5 MG TABLET. PO SCH ×2 (08:10→22:19)
[2019-01-14] MEDS: ASPIRIN ENTERIC COATED 81 MG TABLET.DR. PO SCH (08:10)
[2019-01-14] MEDS: PREGABALIN 75 MG CAPSULE PO SCH ×2 (08:10→22:18)
[2019-01-14] MEDS: buPROPion XL 150 MG TAB.ER.24H. PO SCH (08:10)
[2019-01-14] MEDS ORDERED: DEXTROSE ORAL GEL 15 GM TUBE. PO ONE (08:15)
[2019-01-14] MEDS: HEPARIN for SUB-Q USE 5,000 UNIT/ML VIAL. SQ SCH ×2 (09:00→22:41)
[2019-01-14] MEDS: HALOPERIDOL 2 MG/ML ORAL.CONC. PO SCH ×2 (09:00→22:22)
--- NOTE | 2019-01-14 09:22 | PDOC ---
Renal-Progress Notes Subjective Notes Notes NONE History of Present Illness Hx of present illness BETTER Vitals Vitals Vital Signs Date Time Temp Pulse Resp B/P (MAP) Pulse Ox O2 Delivery O2 Flow Rate FiO2 01/14/19 08:10 79 110/48 01/14/19 07:25 97.6 21 93 Room Air 97.6 Weight Weight [ ] I.O. Intake and Output Intake and Output 01/14/19 07:00 Intake Total 1040 ml Output Total 0 ml Balance 1040 ml Intake Oral 1040 ml Output Urine Total 0 ml Labs Labs Laboratory Tests Test 01/13/19 12:15 01/13/19 16:37 01/14/19 08:07 Glucose (Fingerstick) 76 mg/dL (70-99) 160 mg/dL (70-99) 102 mg/dL (70-99) Review of Systems Constitutional: yes: other (CONFUSED) Physical Exam General Appearance: no apparent distress Skin: warm Respiratory: decreased breath sounds Heart: S1S2 Abdomen: soft, bowel sounds present Genitourinary: bladder flat Extremities: pulses present Neurology: alert Assessment Assessment IMP HYPOTENSION-BETTER DECONDITIONING V TACH DM II HTN ANEMIA ESRD-TTS PLAN HD [facility] EVAL ARANESP THERAPY ARACELI CANSECO MD Jan 14, 2019 09:22
[2019-01-14] MEDS: CHOLESTYRAMINE/ASPARTAME 4 GM PACKET PO SCH ×2 (11:19→22:22)
[2019-01-14 11:55] VITALS: BP 109/54
[2019-01-14 15:20] VITALS: BP 111/48
--- NOTE | 2019-01-14 16:30 | PN ---
DATE: 01/14/2019 SUBJECTIVE: The patient is resting slightly propped up in bed. Apparently awake, alert. Apparently, he had hypoglycemia with a blood sugar down to 57. He has an IV line placed and he received an amp of 50 mL of 5% dextrose as well as glucose gel and by the time I saw him, he was awake, alert, was eating his breakfast. He is on 15 units of Lantus insulin at bedtime and 7 units of Humalog insulin before meals. PHYSICAL EXAMINATION: GENERAL: When I saw him this morning, he looked well and was clearly in no apparent respiratory distress, slightly pale. No jaundice, cyanosis or thyromegaly. No jugular venous distention. No limb edema. VITAL SIGNS: His heart rate was 79, blood pressure was 110/48, temperature was 97.6, respiratory rate 21 and oxygen saturation was 93% on room air. HEAD, EYES, EARS, NOSE AND THROAT: Showed normocephalic, atraumatic. NECK: Supple. HEART: Normal first and second sounds. No gallop or murmur. CHEST: Clear to auscultation. No crepitation or rhonchi. ABDOMEN: Distended, soft, nontender. NEUROLOGIC: He was legally blind, but all other cranial nerves are intact. He moves extremities without difficulty. He is mostly bedbound and chair bound. He is able to walk with a walker short distances LABORATORY DATA: No lab work is done this morning. ASSESSMENT: 1. The patient was transferred from [facility] with questionable nonsustained ventricular tachycardia; however, it was probably an artifact. No further episodes of ventricular tachycardia were detected on telemetry. His recent echocardiogram showed his left ventricular function is normal. 2. He continued to have chronic hypertension, which he is on midodrine. 3. Chronic diastolic congestive heart failure, seems to be well compensated. 4. Weakness and multiple falls secondary to probably Parkinson disease and orthostatic hypotension. 5. He has atrial fibrillation, rate controlled, but not a candidate for oral anticoagulation. 6. Type 2 diabetes for which he is on Lantus insulin as well as Humalog insulin before meals. 7. He has an episode of hypoglycemia this morning. PLAN: I will cut his Lantus to 12 units at bedtime. If the patient remained stable, he can be discharged back to [facility] tomorrow. NAOMY RAMOS MD DR: Yolanda JOB#: [id number] / [id number]
[2019-01-14] MEDS: ACETAMINOPHEN 325 MG TABLET. PO PRN (18:17)
[2019-01-14 19:20] VITALS: BP 106/47
[2019-01-14] MEDS ORDERED: INSULIN GLARGINE 300 UNITS/3 ML INSULN.PEN. SQ SCH (21:00)
[2019-01-14] MEDS: ALPRAZolam 0.5 MG TABLET PO SCH (22:17)
[2019-01-14] MEDS: rOPINIRole 1 MG TABLET. PO SCH (22:18)
[2019-01-14 22:45] VITALS: BP 116/55
[2019-01-15 03:00] VITALS: BP 107/54
[2019-01-15] MEDS: ACETAMINOPHEN 325 MG TABLET. PO PRN (05:12)
[2019-01-15] MEDS: MIDODRINE 5 MG TABLET PO SCH (05:12)
[2019-01-15 07:35] VITALS: BP 105/40
--- NOTE | 2019-01-15 08:10 | DISCH ---
DISCHARGE DISCHARGE INFORMATION: CONDITION ON DISCHARGE: Stable CODE STATUS: Code Status: Full NURSING HOME: SNF STAY <30 DAYS: Yes POST DISCHARGE ORDERS: ACTIVITY ORDERS: Resume previous activity WEIGHT BEARING STATUS: No restrictions DIET AFTER DISCHARGE: Renal WOUND/INCISION CARE: Keep wound/cast CDI CHECKS AFTER DISCHARGE: CHECKS AFTER DISCHARGE: Check blood press - daily, Check blood sugar, ac/hs, Check your Temp as needed, Weigh Yourself Daily TREATMENT/EQUIPMENT ORDERS: ADAPTIVE EQUIPMENT NEEDED: None RESPIRATORY EQUIPMENT NEEDED: Oxygen Physical Therapy For: Evalulation/Treatment Occupational Therapy For: Evaluation/Treatment Speech Language Pathology For: Evaluation/Treatment DISCHARGE MEDICATIONS: Home Meds Reported Medications Ropinirole Hcl (REQUIP) 1 Mg Tablet, 1 TAB PO QHS for restless leg, #30 TAB 2 Refills 01/12/19 Sevelamer Carbonate (RENVELA) 800 Mg Tablet, 800 MG PO TIDWMEALS for esrd, TAB 01/12/19 Melatonin (MELATONIN) 3 Mg Tablet, 1 TAB PO QHS for insomnia, #30 TAB 2 Refills 01/12/19 Insulin Glargine,Hum.rec.anlog (LANTUS) 100 Unit/1 Ml Vial, 15 UNIT SQ HS for diabetes, VIAL 01/12/19 Insulin Lispro (HUMALOG) 100 Unit/1 Ml Cartridge, 7 UNIT SQ TIDAC for diabetes, EACH 01/12/19 Heparin Sodium,Porcine/Pf (HEPARIN SOD 5,000 UNIT/ 0.5 ML) 5,000 Unit/0.5 Ml Vial, 5000 UNIT SQ BID for preventative, EACH 01/12/19 Haloperidol (HALOPERIDOL) 2 Mg Tablet, 0.5 MG PO BID for depression, TAB 01/12/19 Famotidine (FAMOTIDINE) 20 Mg Tablet, 20 MG PO DAILYAC for indigestion, TAB 01/12/19 Buspirone Hcl (BUSPIRONE HCL) 5 Mg Tablet, 7.5 MG PO BID for depression, TAB 01/12/19 Bupropion Hcl (BUPROPION XL) 150 Mg Tab.er.24h, 75 MG PO DAILY for major depressive d/o, TAB.SR 01/12/19 Acetaminophen (TYLENOL) 325 Mg Tablet, 650 MG PO PRN Q6HRS PRN for MILD PAIN / TEMP, TAB 01/12/19 Pregabalin (LYRICA) 75 Mg Capsule, 1 CAP PO BID for neurapathy, #60 CAP 1 Refill 12/13/18 Alprazolam (ALPRAZOLAM) 0.5 Mg Tablet, 1 TAB PO HS for anxiety , #30 TAB 12/02/18 Midodrine Hcl (MIDODRINE HCL) 10 Mg Tablet, 10 MG PO TID for Hypotension, TAB 11/29/18 Magnesium Oxide (MAGNESIUM OXIDE) 400 Mg Tablet, 1 TAB PO DAILY, #30 TAB 5 Refills 08/11/18 Cholestyramine/Aspartame (PREVALITE PACKET) 4 Gm Powd.pack, 4 GM PO BID, PKT 06/06/18 Metoprolol Succinate (TOPROL XL) 25 Mg Tab.er.24h, 1 TAB PO DAILY, #30 TAB 5 Refills 06/06/18 Discontinued Reported Medications Fentanyl Citrate/Pf (FENTANYL CITRATE 100 MCG/2 ML) 100 Mcg/2 Ml Disp.syrin, 12.5 MCG IV Q6HRS for pain, DIS.SYR 12/13/18 Miconazole Nitrate (MICRO-GUARD) 85 Gm Powder, 85 GM TP BID for excoriation, MISC 12/13/18 Ropinirole Hcl (REQUIP) 0.5 Mg Tablet, 0.75 MG PO HS for select pt, TAB 12/13/18 Insulin Glargine,Hum.rec.anlog (LANTUS SOLOSTAR) 100 Unit/1 Ml Insuln.pen, 10 UNIT SQ QHS for diabetes, #15 ML 3 Refills 12/13/18 Pantoprazole Sodium (PROTONIX) 20 Mg Tablet.dr, 40 MG PO DAILY for gerd, TAB 12/13/18 Aspirin (ASPIRIN EC) 81 Mg Tablet.dr, 1 TAB PO DAILY, #30 TAB 3 Refills 08/11/18 Insulin Lispro (HUMALOG) 100 Unit/1 Ml Cartridge, 5 UNIT SQ TIDAC for diabetes, EACH 06/06/17 NAOMY RAMOS MD Jan 15, 2019 08:10
[2019-01-15] MEDS: CHOLESTYRAMINE/ASPARTAME 4 GM PACKET PO SCH (08:39)
[2019-01-15 08:40] VITALS: BP 105/40
[2019-01-15] MEDS: FAMOTIDINE 20 MG TABLET. PO SCH (08:40)
[2019-01-15] MEDS: METOPROLOL SUCC 24HR ER 25 MG TAB.ER.24H. PO SCH (08:40)
[2019-01-15] MEDS: buPROPion XL 150 MG TAB.ER.24H. PO SCH (08:41)
[2019-01-15] MEDS: PREGABALIN 75 MG CAPSULE PO SCH (08:41)
[2019-01-15] MEDS: MAGNESIUM OXIDE 400 MG TABLET PO SCH (08:42)
[2019-01-15] MEDS: busPIRone 5 MG TABLET. PO SCH (08:42)
[2019-01-15] MEDS: INSULIN LISPRO 300 UNITS/3 ML INSULN.PEN. SQ SCH ×2 (08:51→12:00)
[2019-01-15] MEDS: SEVELAMER CARBONATE 800 MG TABLET. PO SCH ×2 (08:53→12:48)
[2019-01-15] MEDS: ASPIRIN ENTERIC COATED 81 MG TABLET.DR. PO SCH (08:53)
--- NOTE | 2019-01-15 08:54 | DS ---
DATE OF DISCHARGE: 01/15/2019 HOSPITAL COURSE: The patient is an 83-year-old male patient who was a resident at [facility], who apparently was sent to the Emergency Room of [facility] with hypertension and hypoxia. He was evaluated in the Emergency Room and apparently was noted 2 runs of V-tach; however, his serum potassium was normal at 3.7, and therefore, a decision was made to transfer him to [facility] as he has end-stage renal disease, on hemodialysis. He was evaluated by the cardiology team as well as the global lead. He was continued on his scheduled hemodialysis. It transpired that the V-tach was probably an artifact. His serum magnesium was normal, and the patient remained hemodynamically stable. The patient is known to have chronic hypertension, for which he is on midodrine, and a decision was made to transfer him back to [facility] to continue rehabilitation there. Continue with dialysis as an outpatient. PHYSICAL EXAMINATION: GENERAL: When I saw him this morning, he was sitting comfortably in his recliner, in no apparent respiratory distress, was pale, but no jaundice, cyanosis or thyromegaly. No jugular venous distension. No lower limb edema. VITAL SIGNS: His heart rate was 82, blood pressure 105/40, temperature was 97.5, respiratory rate 20 and oxygen saturation was 92% on room air. HEAD, EYES, EARS, NOSE AND THROAT: Showed normocephalic, atraumatic. NECK: Supple. CARDIAC: Normal first and second heart sounds. No gallop, rub or murmur. CHEST: Clear to auscultation. No crepitation or rhonchi. ABDOMEN: Distended, soft, nontender. NEUROLOGIC: He was legally blind, but otherwise all other cranial nerves are intact. He moves extremities without difficulty. He is status post partial amputation of right second toe. He is completely anuric and hemodialysis dependent. LABORATORY DATA: His white cell count was 4600, hemoglobin 11.6, hematocrit 36, MCV was 112 and platelet count was 98,000. His chemistry is variable as hemodialysis dependent. DISCHARGE MEDICATIONS: The patient was discharged to continue on Tylenol 650 mg every 6 hours, alprazolam 0.5 mg at bedtime, Wellbutrin 75 mg daily, cholestyramine 4 grams twice a day, famotidine 20 mg daily, Lantus insulin 15 units at bedtime and Humalog insulin 7 units before meals. Magnesium oxide 400 mg daily, melatonin 3 mg at bedtime, metoprolol succinate 25 mg daily, midodrine 10 mg 3 times a day, pregabalin for Lyrica 75 mg twice a day, Requip 1 mg at bedtime. Sevelamer 800 mg 3 times a day with meals, should be on Haldol 0.5 mg at bedtime only. FINAL DISCHARGE DIAGNOSES: 1. Arrhythmia noted at [facility], although the strip was probably artifact and no further episodes of ventricular arrhythmias have been noted while at the [facility]. His echocardiogram showed that his left ventricular systolic function is normal. 2. Hypertension, chronic, remains borderline, for which he is on midodrine. 3. Chronic diastolic congestive heart failure, well compensated. 4. The patient has Parkinson disease with multiple falls, he is not a candidate for oral anticoagulation. 5. Coronary artery disease, status post coronary artery bypass graft, clinically stable. He is chest pain free. 6. Paroxysmal atrial fibrillation, status post Watchman procedure. 7. End-stage renal disease, on hemodialysis. 8. Sick sinus syndrome, status post permanent pacemaker, [employer]. 9. Gangrenous right toe, status post partial amputation. NAOMY RAMOS MD DR: RODGER/elpidio JOB#: [id number] / [id number]
[2019-01-15] MEDS: HEPARIN for SUB-Q USE 5,000 UNIT/ML VIAL. SQ SCH (09:00)
[2019-01-15] MEDS: HALOPERIDOL 2 MG/ML ORAL.CONC. PO SCH (09:00)
--- NOTE | 2019-01-15 09:20 | NUR ---
SS following up with discharge planning. Discharge orders received for return to [facility]. SS phoned and faxed discharge orders to [facility], ; fax [phone]. Pt will discharge today and return to [facility] at 1200. [facility] to provide transportation. Pt, pt's spouse, and pt's RN notified.
--- NOTE | 2019-01-15 13:03 | PDOC ---
SUBJECTIVE ROS sleeping in chair, NAD, easily arousable OBJECTIVE Vital Signs Vital Signs Date Time Temp Pulse Resp B/P (MAP) Pulse Ox O2 Delivery O2 Flow Rate FiO2 01/15/19 08:40 82 105/40 01/15/19 07:50 Room Air 01/15/19 07:35 97.5 20 92 97.5 I & 0 Intake and Output 01/15/19 06:59 Intake Total 740 ml Balance 740 ml Intake Oral 740 ml # Bowel Movements 1 PHYSICAL EXAM Physical Exam GEN: NAD HEEN: OM moist NECK: Supple, CVS: RRR RESP: No Acc. Muscle Use, CTA GI: BS + ve, NO Bruit, Non Tender, Non Distended : No Good Ext- Changes of CVI+ DIAGNOSIS/ASSESSMENT Assessment & Plan ESRD-On HD TTS at HD tomorrow as his schedule Chronic diastolic congestive heart failure- compensated. Weakness and multiple falls secondary to probably Parkinson disease and orthostatic hypotension. atrial fibrillation, rate controlled, not a candidate for oral anticoagulation Type 2 diabetes COMMENT/RELEVANT DATA Meds Current Medications Medications (Trade) Dose Ordered Sig/Tracy Start Time Stop Time Status Last Admin Dose Admin Acetaminophen (Tylenol) 650 mg PRN Q6HRS PRN 01/12/19 10:00 01/15/19 05:12 650 MG Albumin Human 200 ml @ 200 mls/hr 1X PRN PRN 01/13/19 07:45 01/13/19 13:44 DC Alprazolam (Xanax) 0.5 mg HS 01/12/19 21:00 01/14/19 22:17 0.5 MG Aspirin (Ecotrin) 81 mg [id number] 01/13/19 08:00 01/15/19 08:53 81 MG Bupropion HCl (Wellbutrin Xl) 75 mg DAILY 01/12/19 10:00 01/15/19 08:41 75 MG Buspirone HCl (Buspar) 7.5 mg BID 01/12/19 10:00 01/15/19 08:42 7.5 MG Cholestyramine Resin (Questran Light) 4 gm BID@1000,2200 01/12/19 10:00 01/15/19 08:39 4 GM Darbepoetin Joshua (Aranesp) 60 mcg WEEKLYHS 01/19/19 21:00 Cancel Dextrose (Dextrose 50%-Water Syringe) 12.5 gm 1X ONCE 01/14/19 07:45 01/14/19 07:46 DC 01/14/19 08:08 12.5 GM Famotidine (Pepcid) 20 mg DAILYAC 01/12/19 10:00 01/15/19 08:40 20 MG Glucose (Insta-Glucose) 15 gm 1X ONCE 01/14/19 08:15 01/14/19 08:16 DC 01/14/19 07:51 15 GM Haloperidol Lactate (HALDOL 2mg ORAL CONC) 0.5 mg BID 01/12/19 10:15 01/14/19 22:22 0.5 MG Heparin Sodium (Porcine) (Heparin Sodium) 5,000 unit BID 01/12/19 10:00 01/14/19 22:41 5,000 UNIT Info (PHARMACY MONITORING -- do not chart) 1 each PRN DAILY PRN 01/13/19 07:45 Insulin Glargine (Lantus) 12 units QHS 01/14/19 21:00 01/14/19 22:32 12 UNITS Insulin Human Lispro (HumaLOG) 7 units TIDWMEALS 01/12/19 12:00 01/15/19 08:51 7 UNITS Magnesium Oxide (Magnesium Oxide) 400 mg DAILY 01/12/19 10:00 01/15/19 08:42 400 MG Metoprolol Succinate (Toprol Xl) 25 mg DAILY 01/12/19 10:00 01/15/19 08:40 25 MG Midodrine (Proamatine) 10 mg [id number] 01/12/19 13:00 01/15/19 05:12 10 MG Non-Formulary Medication (Melatonin ) 1 tab QHS 01/12/19 21:00 UNV Pharmacy Consult (C.diff Med Screen By Rx) 1 each 1X ONCE 01/12/19 06:00 01/12/19 06:01 DC Pregabalin (Lyrica) 75 mg BID 01/12/19 10:00 01/15/19 08:41 75 MG Ropinirole HCl (Requip) 1 mg QHS 01/12/19 14:00 01/14/19 22:18 1 MG Sevelamer Carbonate (Renvela) 800 mg TIDWMEALS 01/12/19 12:00 01/15/19 12:48 800 MG Sodium Chloride 1,000 ml @ 400 mls/hr Q2H30M PRN 01/13/19 07:44 01/13/19 19:43 DC Lab Laboratory Tests Test 01/14/19 16:32 01/14/19 20:41 01/15/19 07:05 01/15/19 12:44 Glucose (Fingerstick) 119 mg/dL (70-99) 117 mg/dL (70-99) 182 mg/dL (70-99) 59 mg/dL (70-99) Results All relevant outside records, renal labs, imaging studies, telemetry/EKG's were reviewed. LAURA COPPOLA MD Jan 15, 2019 13:03
--- NOTE | 2019-01-15 13:37 | NUR ---
Report given to a nurse at the [facility]. PIV and heart monitor removed. Transportation here, escorted patient off unit per wheelchair.
--- NOTE | 2019-01-15 16:10 | NUR ---
Wound Care Attempted to see pt for wound care consultation, pt has already been discharged.
[2019-01-19] MEDS ORDERED: DARBEPOETIN ALFA 60 MCG/0.3 ML DISP.SYRIN. SQ SCH (21:00)
== END 2019-01-15 13:35 | disposition home or self-care (01) | DRG 308 ==
LOC: 2 SOUTH 03:55
PROVIDERS: ADMIT Internal Medicine; ATTEND Internal Medicine
PROC: 5A1D70Z Performance of Urinary Filtration, Intermittent, Less than 6 Hours Per Day (ICD-10-PCS; principal; 2019-01-13)
DX: I47.2 Ventricular tachycardia (principal); N18.6 End stage renal disease; I13.2 Hypertensive heart and chronic kidney disease with heart failure and with stage 5 chronic kidney disease, or end stage renal disease; E11.52 Type 2 diabetes mellitus with diabetic peripheral angiopathy with gangrene; I50.32 Chronic diastolic (congestive) heart failure; I42.8 Other cardiomyopathies; I95.1 Orthostatic hypotension; D63.1 Anemia in chronic kidney disease; E11.22 Type 2 diabetes mellitus with diabetic chronic kidney disease; E11.43 Type 2 diabetes mellitus with diabetic autonomic (poly)neuropathy; E11.649 Type 2 diabetes mellitus with hypoglycemia without coma; F03.90 Unspecified dementia, unspecified severity, without behavioral disturbance, psychotic disturbance, mood disturbance, and anxiety; G47.33 Obstructive sleep apnea (adult) (pediatric); G89.4 Chronic pain syndrome; E78.5 Hyperlipidemia, unspecified; G20 Parkinson's disease; I25.10 Atherosclerotic heart disease of native coronary artery without angina pectoris; I27.20 Pulmonary hypertension, unspecified; I48.0 Paroxysmal atrial fibrillation; K21.9 Gastro-esophageal reflux disease without esophagitis; N40.1 Benign prostatic hyperplasia with lower urinary tract symptoms; F32.9 Major depressive disorder, single episode, unspecified; F41.9 Anxiety disorder, unspecified; R09.02 Hypoxemia; E21.3 Hyperparathyroidism, unspecified; M19.90 Unspecified osteoarthritis, unspecified site; R29.6 Repeated falls; Z79.4 Long term (current) use of insulin; Z82.49 Family history of ischemic heart disease and other diseases of the circulatory system; Z85.46 Personal history of malignant neoplasm of prostate; Z85.828 Personal history of other malignant neoplasm of skin; Z87.11 Personal history of peptic ulcer disease; Z91.81 History of falling; Z95.0 Presence of cardiac pacemaker; Z95.1 Presence of aortocoronary bypass graft; Z99.2 Dependence on renal dialysis; Z88.8 Allergy status to other drugs, medicaments and biological substances
CPT/HCPCS: 36415; 80048; 82962; 83735; 85025; 87641; J1644; J1815; J7042; 97110; 97116; 97535

== ENCOUNTER 2019-01-16 17:22 | Inpatient (IN) | payer MEDICARE, BC ==
[~2019-01-16] VITALS: Ht 175.3 cm; Wt 83.9 kg
[~2019-01-16 17:22] MED LIST changes: +ACET325T9 PO; +BUPR150T6 PO; +BUSP5TAB PO; -CALC667T PO; +CALC667T4 PO; +FAMO20TA5 PO; +HEPA500022 SQ; +MELA3TAB2 PO; +SEVE800T9 PO
[2019-01-16 17:49] LABS: BASE EXCESS ABG 4 mmol/L (-3-3); HCO3 ABG 28 mmol/L (21-28); PCO2 ABG 42 mmHg (35-46); PO2 ABG 305 mmHg (65-108); SAT O2 ABG 99 % (92-99)
[2019-01-16 17:52] LABS: FIO2 ABG 100
[2019-01-16 17:52] LABS: BASO % 1 % (0-3); EOS % 1 % (0-3); HEMATOCRIT 37.3 % (39.0-53.0); LYMPH # 0.8 x10^3/uL (1.0-4.8); LYMPH % 17 % (24-48); MEAN CORPUSCULAR HEMOGLOBIN 36 pg (25-35); MEAN CORPUSCULAR HGB CONC 32 g/dL (31-37); MEAN CORPUSCULAR VOLUME 112 fL (79-100); MONO # 0.7 x10^3/uL (0.0-1.1); MONO % 13 % (0-9); NEUT # 3.5 x10^3uL (1.8-7.7); NEUT % 69 % (31-73); PLATELET COUNT 92 x10^3/uL (140-400); RED BLOOD COUNT 3.34 x10^6/uL (4.30-5.70)
--- NOTE | 2019-01-16 17:52 | PHYS DOC ---
Past Medical History Past Medical History: A-Fib, Anemia, Arthritis, CAD, CHF, Dementia, Diabetes- Type II, GERD, High Cholesterol, Hypertension, IN, Renal Disease, Renal Failure Additional Past Medical Histor: cellulitis L leg, HYPERPARATHYROIDISM (RAVEN NAIR DO) Past Surgical History: Coronary Bypass Surgery, Pacemaker, Other Additional Past Surgical Histo: STENTS,CABG x3,Fistula L)arm,bilat.shoulder, pain stimulator in back (RAVEN NAIR DO) Alcohol Use: None Drug Use: None (RAVEN NAIR DO) Adult General HPI HPI Patient is a 83 year old male who presents with decreased mental status and decreased oxygen saturation. Patient was recently discharged from the hospital. He is [facility] when EMS was called for the above complaint. EMS is uncertain as to what his baseline is. History is limited from the patient due to his decreased mental status.[] (ARVEN NAIR DO) Review of Systems Review of Systems Unable to obtain due to decreased mental status[] All other systems were reviewed and found to be within normal limits, except as documented in this note. (RAVEN NAIR DO) Current Medications Current Medications Current Medications Medications (Trade) Dose Ordered Sig/Tracy Start Time Stop Time Status Last Admin Dose Admin Albuterol Sulfate (Ventolin Neb Soln) 10 mg 1X ONCE 01/16/19 18:45 01/16/19 18:48 DC 01/16/19 18:58 10 MG Albuterol/ Ipratropium (Duoneb) 3 ml 1X ONCE 01/16/19 18:00 01/16/19 18:01 DC 01/16/19 17:59 3 ML Piperacillin Sod/ Tazobactam Sod (Zosyn Per Pharmacy) 1 each PRN DAILY PRN 01/16/19 18:45 UNV Piperacillin Sod/ Tazobactam Sod 2.25 gm/Sodium Chloride 50 ml @ 100 mls/hr 1X ONCE 01/16/19 19:00 01/16/19 19:29 DC 01/16/19 19:09 100 MLS/HR Vancomycin HCl (Vanco Per Pharmacy) 1 each PRN DAILY PRN 01/16/19 18:45 (APOLLO MCALLISTER MD) Allergies Allergies Allergies Coded Allergies Type Severity Reaction Last Updated Verified Vabpaqj-Jhy-Nwy Reductase Inhibitor Allergy Severe Brain swelling. 02/22/18 Yes gabapentin Allergy Severe Brain swelling 02/22/18 Yes sulfamethoxazole Allergy Intermediate 02/22/18 Yes trimethoprim Allergy Intermediate 02/22/18 Yes morphine Adverse Reaction Severe 02/22/18 Yes (APOLLO MCALLISTER MD) Physical Exam Physical Exam Constitutional: Well developed, well nourished, moderate distress. [] HENT: Normocephalic, atraumatic, bilateral external ears normal, oropharynx with dry mucous membranes, no oral exudates, nose normal. [] Eyes: PERRLA, EOMI, conjunctiva normal, no discharge. [] Neck: Normal range of motion, no tenderness, supple, no stridor. [] Cardiovascular:Heart rate regular rhythm, no murmur [] Lungs & Thorax: Bilateral breath sounds with scattered wheezes[] Abdomen: Bowel sounds normal, soft, no tenderness, no masses, no pulsatile masses. [] Skin: Warm, dry, no erythema, no rash, multiple bruises on his abdomen at various stages of healing. [] Back: No tenderness, no CVA tenderness. [] Extremities: No tenderness, no cyanosis, no clubbing, ROM intact, no edema. [] Neurologic: GCS13: E3 V4 M6, . [] Psychologic: Unable to assess. [] (JOANIE,RAVEN DO) Current Patient Data Vital Signs Vital Signs Date Time Temp Pulse Resp B/P (MAP) Pulse Ox O2 Delivery O2 Flow Rate FiO2 01/16/19 19:00 98 NonRebreather Mask 15.0 01/16/19 17:30 98.4 80 28 104/63 (77) 98.4 (APOLLO MCALLISTER MD) Lab Values Laboratory Tests Test 01/16/19 17:36 01/16/19 17:38 01/16/19 17:40 01/16/19 17:45 White Blood Count 5.0 x10^3/uL (4.0-11.0) Red Blood Count 3.34 x10^6/uL (4.30-5.70) L Hemoglobin 12.0 g/dL (13.0-17.5) L Hematocrit 37.3 % (39.0-53.0) L Mean Corpuscular Volume 112 fL (79-100) H Mean Corpuscular Hemoglobin 36 pg (25-35) H Mean Corpuscular Hemoglobin Concent 32 g/dL (31-37) Red Cell Distribution Width 18.0 % (11.5-14.5) H Platelet Count 92 x10^3/uL (140-400) L Neutrophils (%) (Auto) 69 % (31-73) Lymphocytes (%) (Auto) 17 % (24-48) L Monocytes (%) (Auto) 13 % (0-9) H Eosinophils (%) (Auto) 1 % (0-3) Basophils (%) (Auto) 1 % (0-3) Neutrophils # (Auto) 3.5 x10^3uL (1.8-7.7) Lymphocytes # (Auto) 0.8 x10^3/uL (1.0-4.8) L Monocytes # (Auto) 0.7 x10^3/uL (0.0-1.1) Eosinophils # (Auto) 0.0 x10^3/uL (0.0-0.7) Basophils # (Auto) 0.0 x10^3/uL (0.0-0.2) Platelet Estimate Pending Prothrombin Time 17.7 SEC (11.7-14.0) H Prothrombin Time INR 1.5 (0.8-1.1) H Sodium Level 138 mmol/L (136-145) Potassium Level 4.0 mmol/L (3.5-5.1) Chloride Level 99 mmol/L (98-107) Carbon Dioxide Level 29 mmol/L (21-32) Anion Gap 10 (6-14) 16 mmol/L (6-14) H Blood Urea Nitrogen 21 mg/dL (8-26) Creatinine 3.3 mg/dL (0.7-1.3) H Estimated GFR (Cockcroft-Gault) 18.0 BUN/Creatinine Ratio 6 (6-20) Glucose Level 220 mg/dL (70-99) H 208 mg/dL (70-99) H Lactic Acid Level 2.1 mmol/L (0.4-2.0) H Calcium Level 8.5 mg/dL (8.5-10.1) Magnesium Level 2.2 mg/dL (1.8-2.4) Total Bilirubin 2.0 mg/dL (0.2-1.0) H Aspartate Amino Transferase (AST) 25 U/L (15-37) Alanine Aminotransferase (ALT) 15 U/L (16-63) L Alkaline Phosphatase 185 U/L (46-116) H Troponin I Quantitative 0.043 ng/mL (0.000-0.055) SV-Mzf-T-Type Natriuretic Peptide 03670 pg/mL (0-449) H Total Protein 7.1 g/dL (6.4-8.2) Albumin 2.4 g/dL (3.4-5.0) L Albumin/Globulin Ratio 0.5 (1.0-1.7) L Glucose (Fingerstick) 191 mg/dL (70-99) H O2 Saturation 99 % (92-99) Arterial Blood pH 7.44 (7.35-7.45) Arterial Blood pCO2 at Patient Temp 42 mmHg (35-46) Arterial Blood pO2 at Patient Temp 305 mmHg (65-108) H Arterial Blood HCO3 28 mmol/L (21-28) Arterial Blood Base Excess 4 mmol/L (-3-3) H FiO2 100 POC Troponin I 0.04 ng/ml (<0.08) POC Hemoglobin 13.6 g/dL (14-18) L POC Hematocrit 40 % (37-52) POC Sodium 138 mmol/L (135-145) POC Potassium 3.8 mmol/L (3.5-5.0) POC Chloride 100 mmol/L (98-110) POC Total CO2 26 mmol/L (23-32) POC Blood Urea Nitrogen 20 mg/dL (8-26) POC Creatinine 3.2 mg/dL (0.5-1.4) H POC Ionized Calcium (Andi) 0.95 mmol/L (1.13-1.32) L Laboratory Tests 01/16/19 17:36 Laboratory Tests 01/16/19 17:36 01/16/19 17:45 (APOLLO MCALLISTER MD) EKG EKG [] (RAVEN NAIR DO) Radiology/Procedures Radiology/Procedures [] (RAVEN NAIR DO) Course & Med Decision Making Course & Med Decision Making Pertinent Labs and Imaging studies reviewed. (See chart for details) ED course: Patient arrived, was placed in bed, in tolerated exam well. Patient noted to have decreased mental status, fingerstick was appropriate. Oxygen level was appropriate, at the time this dictation additional labs and imaging studies are pending. Patient care endorsed to the nighttime emergency physician at 1800.[] (RAVEN NAIR DO) Course & Med Decision Making S/O FROM JOANIE AT 1800 I RE-EVAL PT HAS FREQUENT REACTIVE COUGH AND BIBASILAR DECREASED BSOUNDS WORSE ON LEFT. FOLLOWING COMMANDS EYES OPEN , BP 97/52 PRIOR TO TRANSFER TO ICU ON MY LAST EVALUATION. SAT GOOD ON FACE MASK. CXR SHOWS BASILAR PNA BGAS LOOKS GOOD. VANC/ZOSYN D/W RICHARD WILL ADMIT ICU, APPROPRIATE CONSULTS PLACED. I THIN IT IS MOST LIKELY PNEUMONIA WITH acute on chronic hypoxic respiratory failure most likely flu swab is pending fluid overload is possibly of the chest x-ray argues more towards a focal finding the left lung base. Critical care time ordered but was 45 minutes exclusive of procedures. (APOLLO MCALLISTER MD) Dragon Disclaimer Dragon Disclaimer This electronic medical record was generated, in whole or in part, using a voice recognition dictation system. (RAVEN NAIR DO) Departure Departure Impression: Primary Impression: Acute respiratory failure with hypoxia Additional Impression: Altered mental status Disposition: ADMITTED INPATIENT Admitting Physician: Anisa Aguilar (APOLLO MCALLISTER MD) Condition: GUARDED Referrals: STEFANIE VAIL MD (PCP) Problem Qualifiers RAVEN NAIR DO Jan 16, 2019 17:52 APOLLO MCALLISTER MD Jan 16, 2019 19:34
[2019-01-16 18:00] LABS: PROTHROMBIN TIME PATIENT 17.7 SEC (11.7-14.0)
[2019-01-16] MEDS ORDERED: IPRATRPIUM/ALBUTEROL 0.5/2.5MG 3 ML NEBU. NEB ONE (18:00)
[2019-01-16 18:01] LABS: CALCIUM 8.5 mg/dL (8.5-10.1); CREATININE 3.3 mg/dL (0.7-1.3)
[2019-01-16 18:02] LABS: CREATININE ISTAT 3.2 mg/dL (0.5-1.4); HEMOGLOBIN ISTAT 13.6 g/dL (14-18); ION CA ISTAT 0.95 mmol/L (1.13-1.32); POTASSIUM ISTAT 3.8 mmol/L (3.5-5.0)
[2019-01-16 18:07] LABS: ALBUMIN 2.4 g/dL (3.4-5.0); ALBUMIN/GLOBULIN RATIO 0.5 (1.0-1.7); MAGNESIUM 2.2 mg/dL (1.8-2.4); TOTAL PROTEIN 7.1 g/dL (6.4-8.2)
--- NOTE | 2019-01-16 18:44 | RAD ---
Indication:AMS, PRIOR SENT TECHNIQUE: CT head without IV contrast COMPARISON:11/29/2018 FINDINGS: No pathologic extra-axial or intra-axial fluid collection. Mild diffuse cerebral atrophy. The ventricles and basal cisterns are within normal limits. No acute intracranial bleed. No focal loss of stovall-white differentiation. Orbits are within normal limits. No suspicious calvarial lesions. Mucoperiosteal thickening is seen of the visualized left maxillary sinus. Opacification is seen of the sphenoid sinuses. IMPRESSION: 1. No acute intracranial bleed. If concern for acute ischemic stroke is high, please consider MRI brain. 2. Left maxillary and sphenoid sinus disease. Electronically signed by: Jerald Palma DO (01/16/2019 6:41 PM) [facility]
[2019-01-16] MEDS ORDERED: PIP/TAZO PER PHARMACY MC PRN (18:45)
[2019-01-16] MEDS ORDERED: ALBUTEROL SULFATE 2.5 MG/3 ML NEBU. CONT NEB ONE (18:45)
[2019-01-16] MEDS ORDERED: VANCOMYCIN PER PHARMACY MC PRN (18:45)
--- NOTE | 2019-01-16 18:54 | RAD ---
Indication:shortness of breath, altered mental status TECHNIQUE:Portable AP chest X-ray COMPARISON:12/06/2018 FINDINGS: CABG changes noted. Note made of right chest wall cardiac pacer. Heart is normal in size. Opacification of the left lung base with blunting of the left costophrenic angle. Right lung is clear. No pneumothorax. Visualized bony thorax is within normal limits. IMPRESSION: Small left pleural effusion with associated atelectasis or pneumonia in the left lung base. Findings somewhat similar to previous exam from 12/06/2018. Electronically signed by: Jerald Palma DO (01/16/2019 6:51 PM) [facility]
[2019-01-16] MEDS ORDERED: PIPERACILLIN/TAZOBACTAM 2.25 GM in IV NORMAL SALINE 50ML 50 ML IV ONE (19:00)
[2019-01-16] MEDS ORDERED: methylPREDNISolone SOD SUCC PF 125 MG/2 ML VIAL. IV ONE (19:15)
[2019-01-16] MEDS ORDERED: IV NORMAL SALINE 500ML BAG 250 ML IV ONE (19:15)
[2019-01-16] MEDS ORDERED: VANCOMYCIN 2 GM in IV NORMAL SALINE 500ML BAG 500 ML IV ONE (19:30)
--- NOTE | 2019-01-16 19:52 | NUR ---
Pharmacy Vancomycin Dosing Note S:Consulted to monitor and dose vancomycin started 01/16/19. O:GABO WHITMAN is a 83 year old M with Sepsis . Height: 5 feet, 9 inches Weight: 83.918332 kg [place] Body Weight: 68.40 Adjusted Body Weight: 74.24 Dosing Weight: Actual Other Antibiotics: ZOSYN LABS: Last BUN: 20 Last Creatinine: 3.3 Creatinine Clearance: 18 mL/min Last WBC: 5 Last Procalcitonin: Tmax (past 24 hours): Microbiology: I/O: Drug Levels: Last level: on at Last dose given 01/16/19 at 1900 Vancomycin Dosing: Loading Dose: 2000 mg x1 Dosing Weight: Actual Target Trough: 15-20 A: Based on: WEIGHT AND RENAL FUNCTION P: 1. GIVE Vancomycin IV 2GM BOLUS X1 2. Follow up Random level on 01/18/19 at 1900 3. Pharmacy will continue to monitor, follow and adjust therapy as needed. BETTY ALEMAN [facility], 01/16/19 1955
[2019-01-16] MEDS: IPRATRPIUM/ALBUTEROL 0.5/2.5MG 3 ML NEBU. NEB SCH (20:00)
[2019-01-16 20:10] LABS: PLT ESTIMATE DECREASED (ADEQUATE); POLYCHROMASIA SLIGHT; STOMATOCYTES OCC
[2019-01-16 21:00] VITALS: BP 125/96
[2019-01-16 22:00] VITALS: BP 95/51
--- NOTE | 2019-01-16 22:00 | NUR ---
Patient arrived on unit at 1935 accompanied by ED RN. Patient drowsy, coughing persistently despite continuous breathing treatment, able to answer admission questions with short answers. Spoke with patient's on the phone about patient's admission, updated her on patient's condition. Notified Dr. Stahl of consult. aware of positive sepsis screen.
[2019-01-16 22:42] LABS: INFLUENZA A PATIENT NEGATIVE (NEGATIVE); INFLUENZA B PATIENT NEGATIVE (NEGATIVE)
[2019-01-16 23:00] VITALS: BP 97/56
[2019-01-17] VITALS (17 sets, daily range): BP systolic 89–140; BP diastolic 46–98
[2019-01-17 02:11] LABS: BASO % 0 % (0-3); EOS % 0 % (0-3); HEMOGLOBIN 11.8 g/dL (13.0-17.5); LYMPH # 0.2 x10^3/uL (1.0-4.8); LYMPH % 5 % (24-48); MEAN CORPUSCULAR HEMOGLOBIN 36 pg (25-35); MEAN CORPUSCULAR HGB CONC 32 g/dL (31-37); MEAN CORPUSCULAR VOLUME 112 fL (79-100); MONO # 0.1 x10^3/uL (0.0-1.1); MONO % 1 % (0-9); NEUT % 94 % (31-73); PLATELET COUNT 89 x10^3/uL (140-400); RED BLOOD COUNT 3.31 x10^6/uL (4.30-5.70); RED CELL DISTRIBUTION WIDTH 18.4 % (11.5-14.5); WHITE BLOOD COUNT 5.3 x10^3/uL (4.0-11.0)
[2019-01-17 02:24] LABS: CALCIUM 8.7 mg/dL (8.5-10.1); CREATININE 4.1 mg/dL (0.7-1.3); POTASSIUM 4.3 mmol/L (3.5-5.1)
--- NOTE | 2019-01-17 02:53 | NUR ---
Notified Dr. Aguilar of third elevated lactic acid, received the order to continue antibiotics, don't give any extra fluids, and may start levophed for hypotension.
[2019-01-17 02:56] LABS: % LYMPHS 5 % (24-48); % SEGS 95 % (35-66); ANISOCYTOSIS SLIGHT; PLT ESTIMATE DECREASED (ADEQUATE); POLYCHROMASIA SLIGHT
[2019-01-17] MEDS ORDERED: PIPERACILLIN/TAZOBACTAM 2.25 GM in IV NORMAL SALINE 50ML 50 ML IV SCH (03:00)
[2019-01-17] MEDS ORDERED: ALBUTEROL SULFATE 2.5 MG/3 ML NEBU. NEB ONE (03:30)
--- NOTE | 2019-01-17 08:37 | RAD ---
Left leg venous Doppler study: Clinical indications: Acute hypoxia. Respiratory failure. Findings: Duplex sonography (including stovall scale evaluation and color flow and waveform spectral analysis) of the proximal aspect of the greater saphenous vein and the proximal aspect of the profunda femoral vein and the entire length of the common femoral and superficial femoral and popliteal veins and the tibioperoneal trunk and the proximal aspect of the posterior tibial and peroneal veins of the left leg was performed. Normal compressibility, augmentation of color Doppler flow after calf compression, and respiratory variation of Doppler flow is seen. Thus, there are no sonographic findings of deep venous thrombosis within these veins. Impression: There are no sonographic findings of deep venous thrombosis within the veins discussed above of the left lower extremity. Right leg venous Doppler study: Clinical indications: Acute hypoxia. Respiratory failure. Findings: Duplex sonography (including stovall scale evaluation and color flow and waveform spectral analysis) of the proximal aspect of the greater saphenous vein and proximal aspect of the profunda femoral vein and the entire length of the common femoral and superficial femoral and popliteal veins and the tibioperoneal trunk and the proximal aspect of the posterior tibial and peroneal veins of the right leg was performed. Normal compressibility, augmentation of color Doppler flow after calf compression, and respiratory variation of Doppler flow is seen. Thus, there are no sonographic findings of deep venous thrombosis within these veins. Impression: There are no sonographic findings of deep venous thrombosis within the veins discussed above of the right lower extremity. Electronically signed by: Adam Reich MD (01/17/2019 8:34 AM) [id number]
--- NOTE | 2019-01-17 08:43 | HP ---
ADMIT DATE: 01/16/2019 HISTORY OF PRESENT ILLNESS: The patient is an 83-year-old male patient whom I have discharged on 01/15/2019, and apparently, he was brought back from [facility] with altered mental status and hypoxia. He apparently was investigated in the Emergency Room, and his lab work was unremarkable. He has no leukocytosis. His blood gases showed a pH of 7.44, pCO2 of 42 and his pO2 was 305 on FiO2 of 100%. His oxygen saturation was 99%. His chemistry was also unremarkable. His troponin was slightly elevated at 0.038, and his lactic acid was 2.1 that has increased to 3.4, was admitted to the ICU, was started on IV antibiotic. He did receive 250 mL of normal saline in the Emergency Room, was also given steroids and apparently by the time he arrived to the ICU, he was maintaining his oxygen saturation at 96% on room air. When I saw him, the patient was confused and does not really give any useful information, although he did complain that he is short of breath when he attempts to walk. PAST MEDICAL HISTORY: Significant for coronary artery disease, status post CABG. Congestive heart failure, hypertension, myocardial infarction, hyperlipidemia, atrial fibrillation and sick sinus syndrome. He has obstructive sleep apnea, gastroesophageal reflux disease, anemia of chronic kidney disease. He has chronic low back pain, osteoarthritis. End-stage renal disease, on hemodialysis. Benign prostatic hypertrophy, history of diabetes, subarachnoid hemorrhage, Parkinson disease and seizure disorder. PAST SURGICAL HISTORY: Significant for tonsillectomy, coronary artery bypass graft surgery. He has also partial amputation of his right second toe. FAMILY HISTORY: Positive for heart disease. SOCIAL HISTORY: He is ; however, currently, he lives at [facility]. He does not smoke, drink alcohol or use any recreational drugs. He is able to walk with a walker. ALLERGIES: HE IS ALLERGIC TO STATINS, GABAPENTIN, MORPHINE, SULFAMETHOXAZOLE AND TRIMETHOPRIM. MEDICATIONS: He is currently on following medications: He is on midodrine 10 mg 3 times a day, cholestyramine 4 grams twice a day, metoprolol succinate 25 mg once a day, acetaminophen 650 mg q.6 hourly, pregabalin 75 mg twice a day, Wellbutrin 75 mg daily, alprazolam 0.5 mg at bedtime, buspirone 7.5 mg twice a day, Requip 1 mg at bedtime. He is on sevelamer 800 mg 3 times a day with meals, magnesium oxide 400 mg daily, famotidine 20 mg once a day, Lantus 15 units at bedtime and Humalog insulin 7 units before meals, melatonin 3 mg at bedtime. REVIEW OF SYSTEMS: As per history of present illness. PHYSICAL EXAMINATION: GENERAL: On arrival to the Emergency Room, he apparently was encephalopathic, pale, but no jaundice, cyanosis or thyromegaly. No jugular venous distension. No lower limb edema. VITAL SIGNS: His heart rate was 80, blood pressure was 104/63, temperature was 98.4, respiratory rate was 28 and oxygen saturation was 97% on 15% nonrebreather mask. HEAD, EYES, EARS, NOSE AND THROAT: Showed normocephalic, atraumatic. NECK: Supple. HEART: Showed normal first and second heart sounds. No gallop, rub or murmur. CHEST: Clear to auscultation. No crepitation or rhonchi. ABDOMEN: Distended, soft, nontender. No guarding or rigidity. No organomegaly. All hernial orifices intact. Bowel sounds normal. NEUROLOGIC: He was apparently confused, but without any lateralizing sign. LABORATORY DATA: While in the Emergency Room, he has had lab work done including a CBC with a white cell count of 5000, hemoglobin 12, hematocrit 37, MCV 112 and platelet of 92,000, with normal manual differential. His chemistry showed his serum sodium 138, potassium 4, chloride 99, bicarbonate 29, anion gap of 10, BUN 21, creatinine 3.3, estimated GFR was 18 mL per minute. His glucose was 220, calcium was 8.5, magnesium was 2.2. Total bilirubin 2. AST, ALT slightly abnormal. Alkaline phosphatase was elevated at 185. His beta natriuretic peptide was 11,249. Total protein was 7.1, albumin was 2.4. His prothrombin time was 17.7, INR 1.5. His blood gases showed a pH of 7.44, pCO2 of 42, pO2 of 305, bicarbonate 28 and oxygen saturation was 99% on FiO2 of 100%. His influenza A and B were negative. He has had a CT scan of the head, which showed no acute intracranial bleed, left maxillary and sphenoid sinus disease and has mild diffuse atrophy. The ventricles and basilar cisterns are within normal limits. No acute intracranial bleed. No focal loss of clemens white matter differentiation. Orbits are within normal limits. No suspicious calvarial lesion. Mucoperiosteal thickening is seen of the visualized left maxillary sinus. Opacification is seen of the sphenoid sinuses. His chest x-ray showed that he has small left-sided pleural effusion with associated atelectasis or pneumonia in the left lung base. Findings somewhat similar to previous exams on 12/06/2018. The patient was admitted to the ICU. He apparently remained hypertensive. He has also with sepsis and lactic acidosis, altered mental status and acute hypoxic respiratory failure. Apparently, the patient has received 250 mL of normal saline at the Emergency Room together with Solu-Medrol 125 mg and breathing treatment. He was treated also with IV vancomycin and Zosyn, and I will consult the head of research & insights, automatic centrifugal station operator as well as the Infectious Disease. The patient has been in and out of this hospital numerous times, and every time he is dialyzed, he drops his blood pressure. I will also order D-dimer and ultrasound of both lower extremities, although on his most recent admission, he was actually on heparin for DVT prophylaxis. He has atrial fibrillation, however, is not a candidate for anticoagulation. NAOMY RAMOS MD DR: RODGER/elpidio JOB#: [id number] / [id number]
[2019-01-17] MEDS: IPRATRPIUM/ALBUTEROL 0.5/2.5MG 3 ML NEBU. NEB SCH ×4 (09:18→19:58)
--- NOTE | 2019-01-17 09:37 | NUR ---
CASIMIRO following for discharge planning. CASIMIRO confirmed with Sunitha at facility pt was SNU resident at [facility], ; fax [phone]. She also confirmed pt is able to return upon dc. Will continue to follow.
--- NOTE | 2019-01-17 10:07 | PDOC2 ---
CONSULT Date of Consult Date of Consult DATE: 01/17/19 TIME: 09:55 Reason for Consult Reason for Consult: ESRD Source Source: Chart review, Patient History of Present Illness Reason for Visit: Pt is 83-year-old male ESRD on HD TTS, multiple hospitalizations , Recently discharged on 01/15/2019. He was brought back from [facility] with altered mental status and hypoxia. In the ER frankel unremarkable with stable labs . He was started on IV antibiotic and given steroids and by the time he arrived to the ICU, he was maintaining his oxygen saturation at 96% on room air. 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 Past Medical History Cardiovascular: AFIB, CAD, CHF, HTN, CA, Syncope, Hyperlipidemia, Other Pulmonary: Pneumonia, Other CENTRAL NERVOUS SYSTEM: Periperal neuropathy, Seizure, Other GI: Peptic Ulcer disease Heme/Onc: Anemia NOS Psych: Anxiety, Depression Rheumatologic: Other Renal/: Chronic renal failure, Prostate Ca., Other Endocrine: Diabetes, Hyperparathyroidism Past Surgical History Past Surgical History: Pacemaker, CABG, Cataract Removal, Hernia Repair, Tonsillectomy, Other Family History Family History: Heart Disease Social History ALCOHOL: none Drugs: None Lives: with Family Domestic Violence: Neg Current Medications Current Medications Current Medications Albuterol/ Ipratropium (Duoneb) 3 ml 1X ONCE NEB Last administered on at 17:59; Start 01/16/19 at 18:00; Stop 01/16/19 at 18:01; Status DC Albuterol Sulfate (Ventolin Neb Soln) 10 mg 1X ONCE CONT NEB Last administered on 01/16/19at 18:58; Start 01/16/19 at 18:45; Stop 01/16/19 at 18:48 ; Status DC Vancomycin HCl (Vanco Per Pharmacy) 1 each PRN DAILY PRN MC SEE COMMENTS Last administered on 01/16/19at 19:52; Start 01/16/19 at 18:45 Piperacillin Sod/ Tazobactam Sod (Zosyn Per Pharmacy) 1 each PRN DAILY PRN MC SEE COMMENTS; Start 01/16/19 at 18:45 Piperacillin Sod/ Tazobactam Sod 2.25 gm/Sodium Chloride 50 ml @ 100 mls/hr 1X ONCE IV Last administered on 01/16/19at 19:09; Start 01/16/19 at 19:00; Stop 01/16/19 at 19:29; Status DC Vancomycin HCl 2 gm/Sodium Chloride 500 ml @ 250 mls/hr 1X ONCE IV Last administered on 01/16/19at 19:09; Start 01/16/19 at 19:30; Stop 01/16/19 at 21:29 ; Status DC Albuterol/ Ipratropium (Duoneb) 3 ml RTQID NEB Last administered on 01/17/19at 09:18; Start 01/16/19 at 20:00; Stop 01/17/19 at 19:59 Methylprednisolone Sodium Succinate (SOLU-Medrol 125MG VIAL) 125 mg 1X ONCE IV Last administered on 01/16/19at 20:15; Start 01/16/19 at 19:15; Stop 01/16/19 at 19:16; Status DC Sodium Chloride 250 ml @ 250 mls/hr 1X ONCE IV Last administered on at 19:12; Start 01/16/19 at 19:15; Stop 01/16/19 at 20:14; Status DC Vancomycin HCl (Vancomycin Random Level) 1 each 1X ONCE MC ; Start 01/18/19 at 19:00; Stop 01/18/19 at 19:01 Piperacillin Sod/ Tazobactam Sod 2.25 gm/Sodium Chloride 50 ml @ 100 mls/hr Q8H IV Last administered on 01/17/19at 02:43; Start 01/17/19 at 03:00 Albuterol Sulfate (Ventolin Neb Soln) 2.5 mg 1X ONCE NEB Last administered on 01/17/19at 04:27; Start 01/17/19 at 03:30; Stop 01/17/19 at 03:31; Status DC Active Scripts Active Reported Requip (Ropinirole Hcl) 1 Mg Tablet 1 Tab PO QHS Renvela (Sevelamer Carbonate) 800 Mg Tablet 800 Mg PO TIDWMEALS Melatonin 3 Mg Tablet 1 Tab PO QHS Lantus (Insulin Glargine,Hum.rec.anlog) 100 Unit/1 Ml Vial 15 Unit SQ HS Humalog (Insulin Lispro) 100 Unit/1 Ml Cartridge 7 Unit SQ TIDAC Famotidine 20 Mg Tablet 20 Mg PO DAILYAC Buspirone Hcl 5 Mg Tablet 7.5 Mg PO BID Bupropion Xl (Bupropion Hcl) 150 Mg Tab.er.24h 75 Mg PO DAILY Tylenol (Acetaminophen) 325 Mg Tablet 650 Mg PO PRN Q6HRS PRN Lyrica (Pregabalin) 75 Mg Capsule 1 Cap PO BID Alprazolam 0.5 Mg Tablet 1 Tab PO HS Midodrine Hcl 10 Mg Tablet 10 Mg PO TID Magnesium Oxide 400 Mg Tablet 1 Tab PO DAILY Prevalite Packet (Cholestyramine/Aspartame) 4 Gm Powd.pack 4 Gm PO BID Toprol Xl (Metoprolol Succinate) 25 Mg Tab.er.24h 1 Tab PO DAILY Allergies Allergies: Coded Allergies: Lxcoueu-Saa-Sdg Reductase Inhibitor (Verified Allergy, Severe, Brain swelling. , 02/22/18) Pt was taking Gabapentin with a Statin and per . "It almost killed him." gabapentin (Verified Allergy, Severe, Brain swelling, 02/22/18) Per pt had Gabapentin with a Statin and it caused brain swelling, "almost killed him." sulfamethoxazole (Verified Allergy, Intermediate, 02/22/18) trimethoprim (Verified Allergy, Intermediate, 02/22/18) morphine (Verified Adverse Reaction, Severe, 02/22/18) ROS Review of System As per HPI Physical Exam Physical Exam GENERAL: NAD HEENT- OM moist NECK: Supple. HEART: RRR LUNGS-Non labored , occ wheezes ABDOMEN: obese soft, nontender. NEUROLOGIC: ?baseline dementia - No ash Skin- No rash Ext- No edema, changes of CVI + Vital Signs Vital Signs Date Time Temp Pulse Resp B/P (MAP) Pulse Ox O2 Delivery O2 Flow Rate FiO2 01/17/19 09:19 96 Room Air 01/17/19 06:00 104 16 108/52 (70) 01/17/19 04:00 98.3 98.3 01/16/19 22:00 2.0 Assessment & Plan ESRD- TTS at [facility] Completed his full Tx yesterday at his OP unit Clinically stable, Labs stable Currently No emergent indication for HD today Acute hypoxic respiratory failure- Improved with steroids and breathing treatment Anemia- Stable No Indication for CLEO Hx of CAD /CABG Congestive heart failure- Stable Afib/SSS - Not On anticoag Labs Labs Laboratory Tests Test 01/16/19 17:36 01/16/19 17:38 01/16/19 17:40 2/19/19 17:45 White Blood Count 5.0 x10^3/uL (4.0-11.0) Red Blood Count 3.34 x10^6/uL (4.30-5.70) Hemoglobin 12.0 g/dL (13.0-17.5) Hematocrit 37.3 % (39.0-53.0) Mean Corpuscular Volume 112 fL (79-100) Mean Corpuscular Hemoglobin 36 pg (25-35) Mean Corpuscular Hemoglobin Concent 32 g/dL (31-37) Red Cell Distribution Width 18.0 % (11.5-14.5) Platelet Count 92 x10^3/uL (140-400) Neutrophils (%) (Auto) 69 % (31-73) Lymphocytes (%) (Auto) 17 % (24-48) Monocytes (%) (Auto) 13 % (0-9) Eosinophils (%) (Auto) 1 % (0-3) Basophils (%) (Auto) 1 % (0-3) Neutrophils # (Auto) 3.5 x10^3uL (1.8-7.7) Lymphocytes # (Auto) 0.8 x10^3/uL (1.0-4.8) Monocytes # (Auto) 0.7 x10^3/uL (0.0-1.1) Eosinophils # (Auto) 0.0 x10^3/uL (0.0-0.7) Basophils # (Auto) 0.0 x10^3/uL (0.0-0.2) Platelet Estimate Decreased (ADEQUATE) Polychromasia Slight Macrocytosis Slight Stomatocytes Occ Prothrombin Time 17.7 SEC (11.7-14.0) Prothromb Time International Ratio 1.5 (0.8-1.1) Sodium Level 138 mmol/L (136-145) Potassium Level 4.0 mmol/L (3.5-5.1) Chloride Level 99 mmol/L (98-107) Carbon Dioxide Level 29 mmol/L (21-32) Anion Gap 10 (6-14) 16 mmol/L (6-14) Blood Urea Nitrogen 21 mg/dL (8-26) Creatinine 3.3 mg/dL (0.7-1.3) Estimated GFR (Cockcroft-Gault) 18.0 BUN/Creatinine Ratio 6 (6-20) Glucose Level 220 mg/dL (70-99) 208 mg/dL (70-99) Lactic Acid Level 2.1 mmol/L (0.4-2.0) Calcium Level 8.5 mg/dL (8.5-10.1) Magnesium Level 2.2 mg/dL (1.8-2.4) Total Bilirubin 2.0 mg/dL (0.2-1.0) Aspartate Amino Transf (AST/SGOT) 25 U/L (15-37) Alanine Aminotransferase (ALT/SGPT) 15 U/L (16-63) Alkaline Phosphatase 185 U/L (46-116) Troponin I Quantitative 0.043 ng/mL (0.000-0.055) QQ-Coh-K-Type Natriuretic Peptide 83038 pg/mL (0-449) Total Protein 7.1 g/dL (6.4-8.2) Albumin 2.4 g/dL (3.4-5.0) Albumin/Globulin Ratio 0.5 (1.0-1.7) Glucose (Fingerstick) 191 mg/dL (70-99) O2 Saturation 99 % (92-99) Arterial Blood pH 7.44 (7.35-7.45) Arterial Blood pCO2 at Patient Temp 42 mmHg (35-46) Arterial Blood pO2 at Patient Temp 305 mmHg (65-108) Arterial Blood HCO3 28 mmol/L (21-28) Arterial Blood Base Excess 4 mmol/L (-3-3) FiO2 100 Bedside Troponin I 0.04 ng/ml (<0.08) Bedside Hemoglobin 13.6 g/dL (14-18) Bedside Hematocrit 40 % (37-52) Bedside Sodium 138 mmol/L (135-145) Bedside Potassium 3.8 mmol/L (3.5-5.0) Bedside Chloride 100 mmol/L (98-110) Bedside Total CO2 26 mmol/L (23-32) Bedside Blood Urea Nitrogen 20 mg/dL (8-26) Bedside Creatinine 3.2 mg/dL (0.5-1.4) Bedside Ionized Calcium (Andi) 0.95 mmol/L (1.13-1.32) Test 01/16/19 21:50 01/16/19 22:20 01/17/19 02:00 01/17/19 08:30 Lactic Acid Level 2.4 mmol/L (0.4-2.0) 3.4 mmol/L (0.4-2.0) Ammonia 25 mcmol/L (11-34) Troponin I Quantitative 0.038 ng/mL (0.000-0.055) Influenza Type A Antigen Negative (NEGATIVE) Influenza Type B Antigen Negative (NEGATIVE) White Blood Count 5.3 x10^3/uL (4.0-11.0) Red Blood Count 3.31 x10^6/uL (4.30-5.70) Hemoglobin 11.8 g/dL (13.0-17.5) Hematocrit 37.0 % (39.0-53.0) Mean Corpuscular Volume 112 fL (79-100) Mean Corpuscular Hemoglobin 36 pg (25-35) Mean Corpuscular Hemoglobin Concent 32 g/dL (31-37) Red Cell Distribution Width 18.4 % (11.5-14.5) Platelet Count 89 x10^3/uL (140-400) Neutrophils (%) (Auto) 94 % (31-73) Lymphocytes (%) (Auto) 5 % (24-48) Monocytes (%) (Auto) 1 % (0-9) Eosinophils (%) (Auto) 0 % (0-3) Basophils (%) (Auto) 0 % (0-3) Neutrophils # (Auto) 5.0 x10^3uL (1.8-7.7) Lymphocytes # (Auto) 0.2 x10^3/uL (1.0-4.8) Monocytes # (Auto) 0.1 x10^3/uL (0.0-1.1) Eosinophils # (Auto) 0.0 x10^3/uL (0.0-0.7) Basophils # (Auto) 0.0 x10^3/uL (0.0-0.2) Segmented Neutrophils % 95 % (35-66) Lymphocytes % 5 % (24-48) Platelet Estimate Decreased (ADEQUATE) Polychromasia Slight Anisocytosis Slight Macrocytosis Mod Sodium Level 139 mmol/L (136-145) Potassium Level 4.3 mmol/L (3.5-5.1) Chloride Level 100 mmol/L (98-107) Carbon Dioxide Level 26 mmol/L (21-32) Anion Gap 13 (6-14) Blood Urea Nitrogen 28 mg/dL (8-26) Creatinine 4.1 mg/dL (0.7-1.3) Estimated GFR (Cockcroft-Gault) 14.0 Glucose Level 239 mg/dL (70-99) Calcium Level 8.7 mg/dL (8.5-10.1) Glucose (Fingerstick) 295 mg/dL (70-99) Laboratory Tests Test 01/16/19 17:36 01/16/19 17:38 01/16/19 17:40 01/16/19 17:45 White Blood Count 5.0 x10^3/uL (4.0-11.0) Red Blood Count 3.34 x10^6/uL (4.30-5.70) Hemoglobin 12.0 g/dL (13.0-17.5) Hematocrit 37.3 % (39.0-53.0) Mean Corpuscular Volume 112 fL (79-100) Mean Corpuscular Hemoglobin 36 pg (25-35) Mean Corpuscular Hemoglobin Concent 32 g/dL (31-37) Red Cell Distribution Width 18.0 % (11.5-14.5) Platelet Count 92 x10^3/uL (140-400) Neutrophils (%) (Auto) 69 % (31-73) Lymphocytes (%) (Auto) 17 % (24-48) Monocytes (%) (Auto) 13 % (0-9) Eosinophils (%) (Auto) 1 % (0-3) Basophils (%) (Auto) 1 % (0-3) Neutrophils # (Auto) 3.5 x10^3uL (1.8-7.7) Lymphocytes # (Auto) 0.8 x10^3/uL (1.0-4.8) Monocytes # (Auto) 0.7 x10^3/uL (0.0-1.1) Eosinophils # (Auto) 0.0 x10^3/uL (0.0-0.7) Basophils # (Auto) 0.0 x10^3/uL (0.0-0.2) Platelet Estimate Decreased (ADEQUATE) Polychromasia Slight Macrocytosis Slight Stomatocytes Occ Prothrombin Time 17.7 SEC (11.7-14.0) Prothromb Time International Ratio 1.5 (0.8-1.1) Sodium Level 138 mmol/L (136-145) Potassium Level 4.0 mmol/L (3.5-5.1) Chloride Level 99 mmol/L (98-107) Carbon Dioxide Level 29 mmol/L (21-32) Anion Gap 10 (6-14) 16 mmol/L (6-14) Blood Urea Nitrogen 21 mg/dL (8-26) Creatinine 3.3 mg/dL (0.7-1.3) Estimated GFR (Cockcroft-Gault) 18.0 BUN/Creatinine Ratio 6 (6-20) Glucose Level 220 mg/dL (70-99) 208 mg/dL (70-99) Lactic Acid Level 2.1 mmol/L (0.4-2.0) Calcium Level 8.5 mg/dL (8.5-10.1) Magnesium Level 2.2 mg/dL (1.8-2.4) Total Bilirubin 2.0 mg/dL (0.2-1.0) Aspartate Amino Transf (AST/SGOT) 25 U/L (15-37) Alanine Aminotransferase (ALT/SGPT) 15 U/L (16-63) Alkaline Phosphatase 185 U/L (46-116) Troponin I Quantitative 0.043 ng/mL (0.000-0.055) DL-Wrz-P-Type Natriuretic Peptide 35003 pg/mL (0-449) Total Protein 7.1 g/dL (6.4-8.2) Albumin 2.4 g/dL (3.4-5.0) Albumin/Globulin Ratio 0.5 (1.0-1.7) Glucose (Fingerstick) 191 mg/dL (70-99) O2 Saturation 99 % (92-99) Arterial Blood pH 7.44 (7.35-7.45) Arterial Blood pCO2 at Patient Temp 42 mmHg (35-46) Arterial Blood pO2 at Patient Temp 305 mmHg (65-108) Arterial Blood HCO3 28 mmol/L (21-28) Arterial Blood Base Excess 4 mmol/L (-3-3) FiO2 100 Bedside Troponin I 0.04 ng/ml (<0.08) Bedside Hemoglobin 13.6 g/dL (14-18) Bedside Hematocrit 40 % (37-52) Bedside Sodium 138 mmol/L (135-145) Bedside Potassium 3.8 mmol/L (3.5-5.0) Bedside Chloride 100 mmol/L (98-110) Bedside Total CO2 26 mmol/L (23-32) Bedside Blood Urea Nitrogen 20 mg/dL (8-26) Bedside Creatinine 3.2 mg/dL (0.5-1.4) Bedside Ionized Calcium (Andi) 0.95 mmol/L (1.13-1.32) Test 01/16/19 21:50 01/16/19 22:20 01/17/19 02:00 01/17/19 08:30 Lactic Acid Level 2.4 mmol/L (0.4-2.0) 3.4 mmol/L (0.4-2.0) Ammonia 25 mcmol/L (11-34) Troponin I Quantitative 0.038 ng/mL (0.000-0.055) Influenza Type A Antigen Negative (NEGATIVE) Influenza Type B Antigen Negative (NEGATIVE) White Blood Count 5.3 x10^3/uL (4.0-11.0) Red Blood Count 3.31 x10^6/uL (4.30-5.70) Hemoglobin 11.8 g/dL (13.0-17.5) Hematocrit 37.0 % (39.0-53.0) Mean Corpuscular Volume 112 fL (79-100) Mean Corpuscular Hemoglobin 36 pg (25-35) Mean Corpuscular Hemoglobin Concent 32 g/dL (31-37) Red Cell Distribution Width 18.4 % (11.5-14.5) Platelet Count 89 x10^3/uL (140-400) Neutrophils (%) (Auto) 94 % (31-73) Lymphocytes (%) (Auto) 5 % (24-48) Monocytes (%) (Auto) 1 % (0-9) Eosinophils (%) (Auto) 0 % (0-3) Basophils (%) (Auto) 0 % (0-3) Neutrophils # (Auto) 5.0 x10^3uL (1.8-7.7) Lymphocytes # (Auto) 0.2 x10^3/uL (1.0-4.8) Monocytes # (Auto) 0.1 x10^3/uL (0.0-1.1) Eosinophils # (Auto) 0.0 x10^3/uL (0.0-0.7) Basophils # (Auto) 0.0 x10^3/uL (0.0-0.2) Segmented Neutrophils % 95 % (35-66) Lymphocytes % 5 % (24-48) Platelet Estimate Decreased (ADEQUATE) Polychromasia Slight Anisocytosis Slight Macrocytosis Mod Sodium Level 139 mmol/L (136-145) Potassium Level 4.3 mmol/L (3.5-5.1) Chloride Level 100 mmol/L (98-107) Carbon Dioxide Level 26 mmol/L (21-32) Anion Gap 13 (6-14) Blood Urea Nitrogen 28 mg/dL (8-26) Creatinine 4.1 mg/dL (0.7-1.3) Estimated GFR (Cockcroft-Gault) 14.0 Glucose Level 239 mg/dL (70-99) Calcium Level 8.7 mg/dL (8.5-10.1) Glucose (Fingerstick) 295 mg/dL (70-99) Review All relevant outside records, renal labs, imaging studies, telemetry/EKG's were reviewed. Images Images CxR-- IMPRESSION: Small left pleural effusion with associated atelectasis or pneumonia in the left lung base. Findings somewhat similar to previous exam from 12/06/2018. LAURA COPPOLA MD Jan 17, 2019 10:07
--- NOTE | 2019-01-17 10:22 | EKG ---
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
--- NOTE | 2019-01-17 11:33 | CONS ---
DATE OF CONSULTATION: REASON FOR CONSULTATION: Bronchospasm and dyspnea. ATTENDING PHYSICIAN: Dr. Aguilar. HISTORY OF PRESENT ILLNESS: The patient is an 83-year-old male who is very well known to us. He has a history of coronary artery disease, history of diastolic congestive heart failure, history of prior thoracentesis for pleural effusions, atrial fibrillation, sick sinus syndrome and obstructive sleep apnea. He was brought into the hospital for altered mental status. He was also noted to be bronchospastic. His ABGs were reasonable with a pH of 7.4, pCO2 of 42 and a pO2 of 305 on 100% FiO2. The patient received aggressive nebulizer and dose of steroids. His bronchospasm is resolved. He is fully awake, following commands. He is on room air now. His chest x-ray was reviewed. There was no obvious CHF. There was a minimal amount of left effusion with compressive atelectasis. He has no cough, no chest pain, no headaches, no nausea, vomiting, no diarrhea. No increase in lower extremity edema. PAST MEDICAL HISTORY: Significant for coronary artery disease, status post CABG. Congestive heart failure, hypertension, diastolic dysfunction, atrial fibrillation, sick sinus syndrome, obstructive sleep apnea. CKD, on dialysis. Diabetes, subarachnoid hemorrhage, Parkinson's and seizure disorder. PAST SURGICAL HISTORY: Tonsillectomy, coronary artery bypass. FAMILY HISTORY: Positive for heart disease. SOCIAL HISTORY: No history of tobacco use. ALLERGIES: All listed. MEDICATIONS: All listed as well. REVIEW OF SYSTEMS: Twelve-point system obtained. Pertinent positives discussed in my history of present illness, otherwise noncontributory. All systems that were negative were reviewed as well. PHYSICAL EXAMINATION: VITAL SIGNS: Reviewed, stable. Pulse ox 96% on room air. NECK: Supple. LUNGS: Clear. CARDIOVASCULAR: Regular rate and rhythm. ABDOMEN: Soft. EXTREMITIES: With bilateral pitting edema. LABORATORY DATA: Reviewed. ABGs as discussed in my history of present illness. Influenza screen is negative. BUN 28, creatinine 4.1. INR 1.5. White cell count 5.3, hemoglobin 11.8 and platelets are 89. IMPRESSION: 1. Dyspnea, likely related to acute bronchospasm. This is now resolved with nebulizer and steroids. 2. Encephalopathy, completely resolved. May be medication effect, but ABGs were very reasonable with no evidence of any significant hypercapnia. 3. History of diastolic congestive heart failure. Chest x-ray showing no evidence of any recurrent congestive heart failure. 4. End-stage renal disease, on hemodialysis. RECOMMENDATIONS: 1. From a pulmonary standpoint, he is on room air and doing very well. I would continue DuoNebs. 2. Does not need to continue with antibiotics. It can be discontinued. He is afebrile, and there is no focus of infection. His white cell count is normal. 3. The patient can be transferred out of ICU and could even go home. 4. Discussed with RN. MAZIN CROWLEY MD DR: JAILYN/elpidio JOB#: [id number] / [id number]
--- NOTE | 2019-01-17 11:51 | PDOC ---
Infectious Disease Note Subjective Subjective HPI: The patient is an 83-year-old male who is very well known to us. He has a history of coronary artery disease, history of diastolic congestive heart failure, history of prior thoracentesis for pleural effusions, atrial fibrillation, sick sinus syndrome and obstructive sleep apnea and recent right second toe amp 12/01 for Gangrene - had MSSA and proteus species. H/o Serratia pneumonia He was just discharged on 01/15/2019 but was brought back from [facility] with altered mental status and hypoxia. In the Emergency Room his lab work was unremarkable. He has no leukocytosis or fever. His blood gases showed a pH of 7.44, pCO2 of 42 and his pO2 was 305 on FiO2 of 100%. His oxygen saturation was 99%. His chemistry was also unremarkable. His troponin was slightly elevated at 0.038, and his lactic acid was 2.1 that has increased to 3.4, was he admitted to the ICU, was started on IV Vanc and Zosyn/steroids. He did receive 250 mL of normal saline in the Emergency Room. PAST MEDICAL HISTORY: End-stage renal disease, AFib, coronary artery disease, hypertension, chronic respiratory failure, status post CABG, mild cognitive disorder, cardiomyopathy, hypertension, hyperlipidemia, sleep apnea, GERD, prostate cancer, benign prostatic hypertrophy, urinary retention, chronic back pain, anemia, skin cancer, legally blind. PAST SURGICAL HISTORY: Right sec toe amputation.Cataract removal, tonsillectomy , coronary artery bypass graft, coronary stent, pacemaker placement, spinal fusion, left AV fistula pain stimulator. SOCIAL HISTORY: , nonsmoker. ALLERGIES: STATINS, GABAPENTIN, MORPHINE, SULFA. ROS ROS No F/C/S/N/V/D/SOA/Rash Wants to go home ROS o/w neg Vital Sign Vital Signs Vital Signs Date Time Temp Pulse Resp B/P (MAP) Pulse Ox O2 Delivery O2 Flow Rate FiO2 01/17/19 09:19 96 Room Air 01/17/19 06:00 104 16 108/52 (70) 01/17/19 04:00 98.3 98.3 01/16/19 22:00 2.0 Physical Exam PHYSICAL EXAM GENERAL: Propped up in bed, looks comfortable. NAD HEENT: Nml conj. OC/Op dry NECK: Supple. No JVD LUNGS: Decreased breath sound at bases. CARDIOVASCULAR: S1, S2. ABDOMEN: Soft, nontender, obese. EXTREMITIES: Left upper extremity AV fistula looks okay. Multiple superficial abrasions present and not infected. BLE edema present, Toe wound clean and scabbed DERMATOLOGIC: Dry, scaly skin. No generalized rash. NEUROLOGIC: Non focal and responds appropriately PIV looks okay. Labs Lab Laboratory Tests Test 01/16/19 17:36 01/16/19 17:38 01/16/19 17:40 01/16/19 17:45 White Blood Count 5.0 x10^3/uL (4.0-11.0) Red Blood Count 3.34 x10^6/uL (4.30-5.70) Hemoglobin 12.0 g/dL (13.0-17.5) Hematocrit 37.3 % (39.0-53.0) Mean Corpuscular Volume 112 fL (79-100) Mean Corpuscular Hemoglobin 36 pg (25-35) Mean Corpuscular Hemoglobin Concent 32 g/dL (31-37) Red Cell Distribution Width 18.0 % (11.5-14.5) Platelet Count 92 x10^3/uL (140-400) Neutrophils (%) (Auto) 69 % (31-73) Lymphocytes (%) (Auto) 17 % (24-48) Monocytes (%) (Auto) 13 % (0-9) Eosinophils (%) (Auto) 1 % (0-3) Basophils (%) (Auto) 1 % (0-3) Neutrophils # (Auto) 3.5 x10^3uL (1.8-7.7) Lymphocytes # (Auto) 0.8 x10^3/uL (1.0-4.8) Monocytes # (Auto) 0.7 x10^3/uL (0.0-1.1) Eosinophils # (Auto) 0.0 x10^3/uL (0.0-0.7) Basophils # (Auto) 0.0 x10^3/uL (0.0-0.2) Platelet Estimate Decreased (ADEQUATE) Polychromasia Slight Macrocytosis Slight Stomatocytes Occ Prothrombin Time 17.7 SEC (11.7-14.0) Prothromb Time International Ratio 1.5 (0.8-1.1) Sodium Level 138 mmol/L (136-145) Potassium Level 4.0 mmol/L (3.5-5.1) Chloride Level 99 mmol/L (98-107) Carbon Dioxide Level 29 mmol/L (21-32) Anion Gap 10 (6-14) 16 mmol/L (6-14) Blood Urea Nitrogen 21 mg/dL (8-26) Creatinine 3.3 mg/dL (0.7-1.3) Estimated GFR (Cockcroft-Gault) 18.0 BUN/Creatinine Ratio 6 (6-20) Glucose Level 220 mg/dL (70-99) 208 mg/dL (70-99) Lactic Acid Level 2.1 mmol/L (0.4-2.0) Calcium Level 8.5 mg/dL (8.5-10.1) Magnesium Level 2.2 mg/dL (1.8-2.4) Total Bilirubin 2.0 mg/dL (0.2-1.0) Aspartate Amino Transf (AST/SGOT) 25 U/L (15-37) Alanine Aminotransferase (ALT/SGPT) 15 U/L (16-63) Alkaline Phosphatase 185 U/L (46-116) Troponin I Quantitative 0.043 ng/mL (0.000-0.055) JA-Ifd-H-Type Natriuretic Peptide 21116 pg/mL (0-449) Total Protein 7.1 g/dL (6.4-8.2) Albumin 2.4 g/dL (3.4-5.0) Albumin/Globulin Ratio 0.5 (1.0-1.7) Glucose (Fingerstick) 191 mg/dL (70-99) O2 Saturation 99 % (92-99) Arterial Blood pH 7.44 (7.35-7.45) Arterial Blood pCO2 at Patient Temp 42 mmHg (35-46) Arterial Blood pO2 at Patient Temp 305 mmHg (65-108) Arterial Blood HCO3 28 mmol/L (21-28) Arterial Blood Base Excess 4 mmol/L (-3-3) FiO2 100 Bedside Troponin I 0.04 ng/ml (<0.08) Bedside Hemoglobin 13.6 g/dL (14-18) Bedside Hematocrit 40 % (37-52) Bedside Sodium 138 mmol/L (135-145) Bedside Potassium 3.8 mmol/L (3.5-5.0) Bedside Chloride 100 mmol/L (98-110) Bedside Total CO2 26 mmol/L (23-32) Bedside Blood Urea Nitrogen 20 mg/dL (8-26) Bedside Creatinine 3.2 mg/dL (0.5-1.4) Bedside Ionized Calcium (Andi) 0.95 mmol/L (1.13-1.32) Test 01/16/19 21:50 01/16/19 22:20 01/17/19 02:00 01/17/19 08:30 Lactic Acid Level 2.4 mmol/L (0.4-2.0) 3.4 mmol/L (0.4-2.0) Ammonia 25 mcmol/L (11-34) Troponin I Quantitative 0.038 ng/mL (0.000-0.055) Influenza Type A Antigen Negative (NEGATIVE) Influenza Type B Antigen Negative (NEGATIVE) White Blood Count 5.3 x10^3/uL (4.0-11.0) Red Blood Count 3.31 x10^6/uL (4.30-5.70) Hemoglobin 11.8 g/dL (13.0-17.5) Hematocrit 37.0 % (39.0-53.0) Mean Corpuscular Volume 112 fL (79-100) Mean Corpuscular Hemoglobin 36 pg (25-35) Mean Corpuscular Hemoglobin Concent 32 g/dL (31-37) Red Cell Distribution Width 18.4 % (11.5-14.5) Platelet Count 89 x10^3/uL (140-400) Neutrophils (%) (Auto) 94 % (31-73) Lymphocytes (%) (Auto) 5 % (24-48) Monocytes (%) (Auto) 1 % (0-9) Eosinophils (%) (Auto) 0 % (0-3) Basophils (%) (Auto) 0 % (0-3) Neutrophils # (Auto) 5.0 x10^3uL (1.8-7.7) Lymphocytes # (Auto) 0.2 x10^3/uL (1.0-4.8) Monocytes # (Auto) 0.1 x10^3/uL (0.0-1.1) Eosinophils # (Auto) 0.0 x10^3/uL (0.0-0.7) Basophils # (Auto) 0.0 x10^3/uL (0.0-0.2) Segmented Neutrophils % 95 % (35-66) Lymphocytes % 5 % (24-48) Platelet Estimate Decreased (ADEQUATE) Polychromasia Slight Anisocytosis Slight Macrocytosis Mod Sodium Level 139 mmol/L (136-145) Potassium Level 4.3 mmol/L (3.5-5.1) Chloride Level 100 mmol/L (98-107) Carbon Dioxide Level 26 mmol/L (21-32) Anion Gap 13 (6-14) Blood Urea Nitrogen 28 mg/dL (8-26) Creatinine 4.1 mg/dL (0.7-1.3) Estimated GFR (Cockcroft-Gault) 14.0 Glucose Level 239 mg/dL (70-99) Calcium Level 8.7 mg/dL (8.5-10.1) Glucose (Fingerstick) 295 mg/dL (70-99) Objective Assessment Hypotension Lactic acidosis Encephalopathy Acute hypoxic resp failure Superficial wounds CKD on HD Plan Plan of Care Discont Vanc/Zosyn for now - lactic likely reactive Local wound care D/w nursing and Examined with wound care team JOSE FELIX MD Jan 17, 2019 11:51
--- NOTE | 2019-01-17 12:52 | NUR ---
Wound Care Wound care consult for multiple skin tears to BUE and LLE. Cleansed wounds, applied Xeroform and foam dressings, recommend to change every 3 days. No other wounds noted on full skin inspection, pt left on right side with heels floated, pt on ICU bed. Pt educated on PU prevention, will need reinforcement. WC will continue to follow for possible changes.
[2019-01-17] MEDS: FAMOTIDINE 20 MG TABLET. PO SCH (14:02)
[2019-01-17] MEDS: MAGNESIUM OXIDE 400 MG TABLET PO SCH (14:03)
[2019-01-17] MEDS: INSULIN LISPRO 300 UNITS/3 ML INSULN.PEN. SQ SCH ×2 (14:13→16:04)
[2019-01-17] MEDS: METOPROLOL SUCC 24HR ER 25 MG TAB.ER.24H. PO SCH (15:04)
[2019-01-17] MEDS: buPROPion 75 MG TABLET. PO SCH (15:52)
[2019-01-17] MEDS ORDERED: INSULIN LISPRO 300 UNITS/3 ML INSULN.PEN. SQ ONE (16:15)
[2019-01-17] MEDS: MIDODRINE 5 MG TABLET PO SCH (17:23)
[2019-01-17] MEDS: SEVELAMER CARBONATE 800 MG TABLET. PO SCH (17:23)
[2019-01-17] MEDS: busPIRone 5 MG TABLET. PO SCH (20:39)
[2019-01-17] MEDS: LACTOBACILLUS RHAMNOSUS GG 1 CAPSULE. PO SCH (20:39)
[2019-01-17] MEDS: PREGABALIN 75 MG CAPSULE PO SCH (20:39)
[2019-01-17] MEDS: ALPRAZolam 0.5 MG TABLET PO SCH (20:39)
[2019-01-17] MEDS: rOPINIRole 1 MG TABLET. PO SCH (20:39)
[2019-01-17] MEDS ORDERED: NON FORMULARY ITEM (Melatonin 1 TAB) PO SCH (21:00)
[2019-01-17] MEDS: CHOLESTYRAMINE/ASPARTAME 4 GM PACKET PO SCH (21:29)
[2019-01-17] MEDS: INSULIN GLARGINE 300 UNITS/3 ML INSULN.PEN. SQ SCH (22:29)
[2019-01-18] MEDS: ACETAMINOPHEN 325 MG TABLET. PO PRN (01:59)
[2019-01-18 03:35] VITALS: BP 120/63
[2019-01-18] MEDS: MIDODRINE 5 MG TABLET PO SCH ×3 (06:07→17:58)
--- NOTE | 2019-01-18 07:33 | PDOC ---
Infectious Disease Note Subjective Subjective Doing well. States ready to go No SOA/F/C/S Vital Sign Vital Signs Vital Signs Date Time Temp Pulse Resp B/P (MAP) Pulse Ox O2 Delivery O2 Flow Rate FiO2 01/18/19 06:07 54 120/63 01/18/19 03:35 97.5 19 91 Room Air 97.5 Physical Exam PHYSICAL EXAM GENERAL: Propped up in bed, looks comfortable. NAD in HD. A liitle groggy on awakening HEENT: Nml conj. OC/Op dry NECK: Supple. No JVD LUNGS: Decreased breath sound at bases. CARDIOVASCULAR: S1, S2. ABDOMEN: Soft, nontender, obese. EXTREMITIES: Left upper extremity AV fistula looks okay. Multiple superficial abrasions present and not infected. BLE edema present, Toe wound clean and scabbed DERMATOLOGIC: Dry, scaly skin. No generalized rash. NEUROLOGIC: Non focal and responds appropriately PIV looks okay. Labs Lab Laboratory Tests Test 01/17/19 08:30 01/17/19 12:16 01/17/19 15:57 01/17/19 22:25 Glucose (Fingerstick) 295 mg/dL (70-99) 394 mg/dL (70-99) 480 mg/dL (70-99) 496 mg/dL (70-99) Micro Microbiology 01/16/19 Blood Culture - Preliminary, Resulted NO GROWTH AFTER 1 DAY Objective Assessment Hypotension - better Hyperglycemia - sec to solumedrol Lactic acidosis Encephalopathy - better Acute hypoxic resp failure -better Superficial wounds CKD on HD Plan Plan of Care Cont off abx Local wound care JOSE FELIX MD Jan 18, 2019 07:33
[2019-01-18] MEDS: SEVELAMER CARBONATE 800 MG TABLET. PO SCH ×3 (08:00→17:57)
[2019-01-18] MEDS: INSULIN LISPRO 300 UNITS/3 ML INSULN.PEN. SQ SCH ×3 (08:00→18:14)
[2019-01-18] MEDS ORDERED: IV NORMAL SALINE 1000ML BAG 1,000 ML IV PRN ×2 (09:40)
[2019-01-18] MEDS ORDERED: DIALYSIS PATIENT. MC PRN ×2 (09:45)
--- NOTE | 2019-01-18 12:28 | NUR ---
SS following up with discharge planning. SS phoned and faxed clinical updates to [facility], ; fax [phone]. SS will await discharge orders for return to senior living unit and will proceed accordingly.
[2019-01-18] MEDS: FAMOTIDINE 20 MG TABLET. PO SCH (12:49)
[2019-01-18] MEDS: busPIRone 5 MG TABLET. PO SCH ×2 (12:49→20:26)
[2019-01-18] MEDS: CHOLESTYRAMINE/ASPARTAME 4 GM PACKET PO SCH ×2 (12:49→20:26)
[2019-01-18] MEDS: PREGABALIN 75 MG CAPSULE PO SCH ×2 (12:49→20:26)
[2019-01-18] MEDS: MAGNESIUM OXIDE 400 MG TABLET PO SCH (12:49)
[2019-01-18] MEDS: LACTOBACILLUS RHAMNOSUS GG 1 CAPSULE. PO SCH ×2 (12:50→20:26)
[2019-01-18] MEDS: buPROPion 75 MG TABLET. PO SCH (12:50)
[2019-01-18] MEDS: METOPROLOL SUCC 24HR ER 25 MG TAB.ER.24H. PO SCH (12:50)
--- NOTE | 2019-01-18 12:51 | PDOC ---
SUBJECTIVE ROS Seen on HD, Confused(baseline) OBJECTIVE Vital Signs Vital Signs Date Time Temp Pulse Resp B/P (MAP) Pulse Ox O2 Delivery O2 Flow Rate FiO2 01/18/19 11:00 Room Air 01/18/19 06:07 54 120/63 01/18/19 03:35 97.5 19 91 97.5 I & 0 Intake and Output 01/18/19 07:00 Intake Total 1780 ml Output Total 0 ml Balance 1780 ml Intake Oral 1780 ml Output Urine Total 0 ml # Bowel Movements 1 PHYSICAL EXAM Physical Exam GENERAL: NAD HEENT- OM moist NECK: Supple. HEART: RRR LUNGS-Non labored , occ wheezes ABDOMEN: obese soft, nontender. 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 Acute hypoxic respiratory failure- Improved with steroids and breathing treatment Anemia- Stable No Indication for CLEO Hx of CAD /CABG Congestive heart failure- Stable Afib/SSS - Not On anticoag COMMENT/RELEVANT DATA Meds Current Medications Medications (Trade) Dose Ordered Sig/Tracy Start Time Stop Time Status Last Admin Dose Admin Acetaminophen (Tylenol) 650 mg PRN Q6HRS PRN 01/17/19 14:00 01/18/19 01:59 650 MG Albuterol Sulfate (Ventolin Neb Soln) 2.5 mg 1X ONCE 01/17/19 03:30 01/17/19 03:31 DC 01/17/19 04:27 2.5 MG Albuterol/ Ipratropium (Duoneb) 3 ml RTQID 01/16/19 20:00 01/17/19 19:59 DC 01/17/19 19:58 3 ML Alprazolam (Xanax) 0.5 mg HS 01/17/19 21:00 01/17/19 20:39 0.5 MG Bupropion HCl (Wellbutrin) 75 mg DAILY 01/17/19 14:30 01/17/19 15:52 75 MG Buspirone HCl (Buspar) 7.5 mg BID 01/17/19 21:00 01/17/19 20:39 7.5 MG Cholestyramine Resin (Questran Light) 4 gm BID 01/17/19 21:00 01/17/19 21:29 4 GM Famotidine (Pepcid) 20 mg DAILYAC 01/17/19 13:00 01/17/19 14:02 20 MG Info (PHARMACY MONITORING -- do not chart) 1 each PRN DAILY PRN 01/18/19 09:45 UNV Insulin Glargine (Lantus) 15 units QHS 01/17/19 21:00 01/17/19 22:29 15 UNITS Insulin Human Lispro (HumaLOG) 5 units 1X ONCE 01/17/19 16:15 01/17/19 16:16 DC 01/17/19 16:27 5 UNITS Lactobacillus Rhamnosus (Culturelle) 1 cap BID 01/17/19 21:00 01/17/19 20:39 1 CAP Magnesium Oxide (Magnesium Oxide) 400 mg DAILY 01/17/19 14:00 01/17/19 14:03 400 MG Methylprednisolone Sodium Succinate (SOLU-Medrol 125MG VIAL) 125 mg 1X ONCE 01/16/19 19:15 01/16/19 19:16 DC 01/16/19 20:15 125 MG Metoprolol Succinate (Toprol Xl) 25 mg DAILY 01/17/19 14:30 01/17/19 15:04 25 MG Midodrine (Proamatine) 10 mg [id number] 01/17/19 18:00 01/18/19 06:07 10 MG Non-Formulary Medication (Melatonin ) 1 tab QHS 01/17/19 21:00 UNV Piperacillin Sod/ Tazobactam Sod (Zosyn Per Pharmacy) 1 each PRN DAILY PRN 01/16/19 18:45 01/17/19 11:50 DC Piperacillin Sod/ Tazobactam Sod 2.25 gm/Sodium Chloride 50 ml @ 100 mls/hr Q8H 01/17/19 03:00 01/17/19 11:45 DC 01/17/19 02:43 100 MLS/HR Pregabalin (Lyrica) 75 mg BID 01/17/19 21:00 01/17/19 20:39 75 MG Ropinirole HCl (Requip) 1 mg QHS 01/17/19 21:00 01/17/19 20:39 1 MG Sevelamer Carbonate (Renvela) 800 mg TIDWMEALS 01/17/19 17:00 01/17/19 17:23 800 MG Sodium Chloride 1,000 ml @ 400 mls/hr Q2H30M PRN 01/18/19 09:40 01/18/19 21:39 Vancomycin HCl (Vanco Per Pharmacy) 1 each PRN DAILY PRN 01/16/19 18:45 01/17/19 11:45 DC 01/16/19 19:52 1 EACH Vancomycin HCl (Vancomycin Random Level) 1 each 1X ONCE 01/18/19 19:00 01/18/19 19:01 Cancel Vancomycin HCl 2 gm/Sodium Chloride 500 ml @ 250 mls/hr 1X ONCE 01/16/19 19:30 01/16/19 21:29 DC 01/16/19 19:09 250 MLS/HR Lab Laboratory Tests Test 01/17/19 15:57 01/17/19 22:25 01/18/19 12:04 Glucose (Fingerstick) 480 mg/dL (70-99) 496 mg/dL (70-99) 109 mg/dL (70-99) Results All relevant outside records, renal labs, imaging studies, telemetry/EKG's were reviewed. LAURA COPPOLA MD Jan 18, 2019 12:51
--- NOTE | 2019-01-18 12:54 | PDOC ---
PULMONARY PROGRESS NOTES Subjective no soa Vitals Vital Signs Date Time Temp Pulse Resp B/P (MAP) Pulse Ox O2 Delivery O2 Flow Rate FiO2 01/18/19 11:00 Room Air 01/18/19 06:07 54 120/63 01/18/19 03:35 97.5 19 91 97.5 General: Alert, No acute distress Lungs: Clear Cardiovascular: S1, S2 Abdomen: Soft Extremities: Other (1+edema) Labs Laboratory Tests Test 01/16/19 17:36 01/16/19 17:38 01/16/19 17:40 01/16/19 17:45 White Blood Count 5.0 x10^3/uL (4.0-11.0) Red Blood Count 3.34 x10^6/uL (4.30-5.70) Hemoglobin 12.0 g/dL (13.0-17.5) Hematocrit 37.3 % (39.0-53.0) Mean Corpuscular Volume 112 fL (79-100) Mean Corpuscular Hemoglobin 36 pg (25-35) Mean Corpuscular Hemoglobin Concent 32 g/dL (31-37) Red Cell Distribution Width 18.0 % (11.5-14.5) Platelet Count 92 x10^3/uL (140-400) Neutrophils (%) (Auto) 69 % (31-73) Lymphocytes (%) (Auto) 17 % (24-48) Monocytes (%) (Auto) 13 % (0-9) Eosinophils (%) (Auto) 1 % (0-3) Basophils (%) (Auto) 1 % (0-3) Neutrophils # (Auto) 3.5 x10^3uL (1.8-7.7) Lymphocytes # (Auto) 0.8 x10^3/uL (1.0-4.8) Monocytes # (Auto) 0.7 x10^3/uL (0.0-1.1) Eosinophils # (Auto) 0.0 x10^3/uL (0.0-0.7) Basophils # (Auto) 0.0 x10^3/uL (0.0-0.2) Platelet Estimate Decreased (ADEQUATE) Polychromasia Slight Macrocytosis Slight Stomatocytes Occ Prothrombin Time 17.7 SEC (11.7-14.0) Prothromb Time International Ratio 1.5 (0.8-1.1) Sodium Level 138 mmol/L (136-145) Potassium Level 4.0 mmol/L (3.5-5.1) Chloride Level 99 mmol/L (98-107) Carbon Dioxide Level 29 mmol/L (21-32) Anion Gap 10 (6-14) 16 mmol/L (6-14) Blood Urea Nitrogen 21 mg/dL (8-26) Creatinine 3.3 mg/dL (0.7-1.3) Estimated GFR (Cockcroft-Gault) 18.0 BUN/Creatinine Ratio 6 (6-20) Glucose Level 220 mg/dL (70-99) 208 mg/dL (70-99) Lactic Acid Level 2.1 mmol/L (0.4-2.0) Calcium Level 8.5 mg/dL (8.5-10.1) Magnesium Level 2.2 mg/dL (1.8-2.4) Total Bilirubin 2.0 mg/dL (0.2-1.0) Aspartate Amino Transf (AST/SGOT) 25 U/L (15-37) Alanine Aminotransferase (ALT/SGPT) 15 U/L (16-63) Alkaline Phosphatase 185 U/L (46-116) Troponin I Quantitative 0.043 ng/mL (0.000-0.055) SR-Jvm-S-Type Natriuretic Peptide 78822 pg/mL (0-449) Total Protein 7.1 g/dL (6.4-8.2) Albumin 2.4 g/dL (3.4-5.0) Albumin/Globulin Ratio 0.5 (1.0-1.7) Glucose (Fingerstick) 191 mg/dL (70-99) O2 Saturation 99 % (92-99) Arterial Blood pH 7.44 (7.35-7.45) Arterial Blood pCO2 at Patient Temp 42 mmHg (35-46) Arterial Blood pO2 at Patient Temp 305 mmHg (65-108) Arterial Blood HCO3 28 mmol/L (21-28) Arterial Blood Base Excess 4 mmol/L (-3-3) FiO2 100 Bedside Troponin I 0.04 ng/ml (<0.08) Bedside Hemoglobin 13.6 g/dL (14-18) Bedside Hematocrit 40 % (37-52) Bedside Sodium 138 mmol/L (135-145) Bedside Potassium 3.8 mmol/L (3.5-5.0) Bedside Chloride 100 mmol/L (98-110) Bedside Total CO2 26 mmol/L (23-32) Bedside Blood Urea Nitrogen 20 mg/dL (8-26) Bedside Creatinine 3.2 mg/dL (0.5-1.4) Bedside Ionized Calcium (Andi) 0.95 mmol/L (1.13-1.32) Test 01/16/19 20:00 01/16/19 21:50 01/16/19 22:20 01/17/19 02:00 Nasal Screen MRSA (PCR) Negative (Negative) Lactic Acid Level 2.4 mmol/L (0.4-2.0) 3.4 mmol/L (0.4-2.0) Ammonia 25 mcmol/L (11-34) Troponin I Quantitative 0.038 ng/mL (0.000-0.055) Influenza Type A Antigen Negative (NEGATIVE) Influenza Type B Antigen Negative (NEGATIVE) White Blood Count 5.3 x10^3/uL (4.0-11.0) Red Blood Count 3.31 x10^6/uL (4.30-5.70) Hemoglobin 11.8 g/dL (13.0-17.5) Hematocrit 37.0 % (39.0-53.0) Mean Corpuscular Volume 112 fL (79-100) Mean Corpuscular Hemoglobin 36 pg (25-35) Mean Corpuscular Hemoglobin Concent 32 g/dL (31-37) Red Cell Distribution Width 18.4 % (11.5-14.5) Platelet Count 89 x10^3/uL (140-400) Neutrophils (%) (Auto) 94 % (31-73) Lymphocytes (%) (Auto) 5 % (24-48) Monocytes (%) (Auto) 1 % (0-9) Eosinophils (%) (Auto) 0 % (0-3) Basophils (%) (Auto) 0 % (0-3) Neutrophils # (Auto) 5.0 x10^3uL (1.8-7.7) Lymphocytes # (Auto) 0.2 x10^3/uL (1.0-4.8) Monocytes # (Auto) 0.1 x10^3/uL (0.0-1.1) Eosinophils # (Auto) 0.0 x10^3/uL (0.0-0.7) Basophils # (Auto) 0.0 x10^3/uL (0.0-0.2) Segmented Neutrophils % 95 % (35-66) Lymphocytes % 5 % (24-48) Platelet Estimate Decreased (ADEQUATE) Polychromasia Slight Anisocytosis Slight Macrocytosis Mod Sodium Level 139 mmol/L (136-145) Potassium Level 4.3 mmol/L (3.5-5.1) Chloride Level 100 mmol/L (98-107) Carbon Dioxide Level 26 mmol/L (21-32) Anion Gap 13 (6-14) Blood Urea Nitrogen 28 mg/dL (8-26) Creatinine 4.1 mg/dL (0.7-1.3) Estimated GFR (Cockcroft-Gault) 14.0 Glucose Level 239 mg/dL (70-99) Calcium Level 8.7 mg/dL (8.5-10.1) Test 01/17/19 08:30 01/17/19 12:16 01/17/19 15:57 01/17/19 22:25 Glucose (Fingerstick) 295 mg/dL (70-99) 394 mg/dL (70-99) 480 mg/dL (70-99) 496 mg/dL (70-99) Test 01/18/19 12:04 Glucose (Fingerstick) 109 mg/dL (70-99) Laboratory Tests Test 01/17/19 15:57 01/17/19 22:25 01/18/19 12:04 Glucose (Fingerstick) 480 mg/dL (70-99) 496 mg/dL (70-99) 109 mg/dL (70-99) Medications Active Scripts Medications Dose Route/Sig Max Daily Dose Days Date Category Requip (Ropinirole Hcl) 1 Mg Tablet 1 Tab PO QHS 01/12/19 Reported Renvela (Sevelamer Carbonate) 800 Mg Tablet 800 Mg PO TIDWMEALS 01/12/19 Reported Melatonin 3 Mg Tablet 1 Tab PO QHS 01/12/19 Reported Lantus (Insulin Glargine,Hum.rec.anlog) 100 Unit/1 Ml Vial 15 Unit SQ HS 01/12/19 Reported Humalog (Insulin Lispro) 100 Unit/1 Ml Cartridge 7 Unit SQ TIDAC 2/15/19 Reported Famotidine 20 Mg Tablet 20 Mg PO DAILYAC 01/12/19 Reported Buspirone Hcl 5 Mg Tablet 7.5 Mg PO BID 01/12/19 Reported Bupropion Xl (Bupropion Hcl) 150 Mg Tab.er.24h 75 Mg PO DAILY 01/12/19 Reported Tylenol (Acetaminophen) 325 Mg Tablet 650 Mg PO PRN Q6HRS PRN 01/12/19 Reported Lyrica (Pregabalin) 75 Mg Capsule 1 Cap PO BID 12/13/18 Reported Alprazolam 0.5 Mg Tablet 1 Tab PO HS 12/02/18 Reported Midodrine Hcl 10 Mg Tablet 10 Mg PO TID 11/29/18 Reported Magnesium Oxide 400 Mg Tablet 1 Tab PO DAILY 08/11/18 Reported Prevalite Packet (Cholestyramine/Aspartame) 4 Gm Powd.pack 4 Gm PO BID 06/06/18 Reported Toprol Xl (Metoprolol Succinate) 25 Mg Tab.er.24h 1 Tab PO DAILY 06/06/18 Reported Impression . 1. Dyspnea, likely related to acute bronchospasm. This is now resolved with nebulizer and steroids. 2. Encephalopathy, completely resolved. May be medication effect, but ABGs were very reasonable with no evidence of any significant hypercapnia. 3. History of diastolic congestive heart failure. Chest x-ray showing no evidence of any recurrent congestive heart failure. 4. End-stage renal disease, on hemodialysis. Plan . RECOMMENDATIONS: 1. From a pulmonary standpoint, he is on room air and doing very well. I would continue DuoNebs. 2. off antibiotics 3. The patient can be transferred out of ICU and could even go home. 4. ok with dc to [facility]ZIN Fontaine MD Jan 18, 2019 12:54
[2019-01-18 15:00] VITALS: BP 126/60
--- NOTE | 2019-01-18 16:04 | PN ---
DATE: 01/18/2019 SUBJECTIVE: The patient is resting slightly propped up in bed, sleeping comfortably and having his scheduled hemodialysis. On questioning him, he denied any complaint. The nursing staff did not voice any concerns that he had an uneventful night. PHYSICAL EXAMINATION: GENERAL: When I examined him, he looked pale, but no jaundice, cyanosis, or thyromegaly. No jugular venous distension. No lower limb edema. VITAL SIGNS: His heart rate was 54, blood pressure 120/63, his temperature was 97.5, respiratory rate was 19 and oxygen saturation was 91% on room air. The rest of clinical examination is stable, has not really changed. His intake over the last 24 hours was 1100, no output was recorded as he is hemodialysis dependent and extremely oliguric, completely anuric and hemodialysis dependent. LABORATORY DATA: White cell count as of yesterday was 5300, hemoglobin 12, hematocrit 37, MCV 112 and platelet count of 89,000. His chemistry is variable as hemodialysis dependent. His blood sugar was high last night at 496. Blood culture is negative. ASSESSMENT: The patient was admitted with acute respiratory failure with hypoxia, altered mental status. The patient is more awake, alert. He is maintaining his oxygen saturation at 91-94% on room air. He was seen by the rig builder helper and did not recommend to continue antibiotic. End-stage renal failure, on hemodialysis on Tuesday, , and Tuesday. The patient has chronic diastolic congestive heart failure. However, clinically he does not seem to be in any heart failure. PLAN: My plan is to discharge him hopefully tomorrow as he normally becomes very weak and hypotensive after dialysis. NAOMY RAMOS MD DR: RODGER/elpidio JOB#: [id number] / [id number]
[2019-01-18] MEDS ORDERED: VANCOMYCIN RANDOM LEVEL. MC ONE (19:00)
[2019-01-18 19:36] VITALS: BP 92/46
[2019-01-18] MEDS: rOPINIRole 1 MG TABLET. PO SCH (20:26)
[2019-01-18] MEDS: ALPRAZolam 0.5 MG TABLET PO SCH (20:26)
[2019-01-18] MEDS: INSULIN GLARGINE 300 UNITS/3 ML INSULN.PEN. SQ SCH (21:00)
[2019-01-18 23:23] VITALS: BP 112/53
[2019-01-19 03:15] VITALS: BP 125/62
[2019-01-19] MEDS: MIDODRINE 5 MG TABLET PO SCH ×3 (05:53→17:56)
[2019-01-19 07:00] VITALS: BP 115/47
[2019-01-19] MEDS: LACTOBACILLUS RHAMNOSUS GG 1 CAPSULE. PO SCH ×2 (08:12→20:30)
[2019-01-19] MEDS: SEVELAMER CARBONATE 800 MG TABLET. PO SCH ×3 (08:12→17:50)
[2019-01-19] MEDS: FAMOTIDINE 20 MG TABLET. PO SCH (08:12)
[2019-01-19] MEDS: buPROPion 75 MG TABLET. PO SCH (08:12)
[2019-01-19] MEDS: busPIRone 5 MG TABLET. PO SCH ×2 (08:12→20:30)
[2019-01-19] MEDS: MAGNESIUM OXIDE 400 MG TABLET PO SCH (08:13)
[2019-01-19] MEDS: METOPROLOL SUCC 24HR ER 25 MG TAB.ER.24H. PO SCH (08:13)
[2019-01-19] MEDS: PREGABALIN 75 MG CAPSULE PO SCH (08:13)
[2019-01-19] MEDS: CHOLESTYRAMINE/ASPARTAME 4 GM PACKET PO SCH ×2 (08:14→20:30)
[2019-01-19] MEDS: INSULIN LISPRO 300 UNITS/3 ML INSULN.PEN. SQ SCH ×3 (08:25→17:00)
[2019-01-19] MEDS ORDERED: ALPRAZolam 0.5 MG TABLET PO PRN (09:15)
[2019-01-19] MEDS ORDERED: DEXTROSE 50% 25 GM / 50ML DISP.SYRIN. IV ONE ×2 (11:14→11:30)
[2019-01-19 11:28] VITALS: BP 128/49
--- NOTE | 2019-01-19 12:03 | NUR ---
SS following up with discharge planning. Palliative care met with pt and spouse. Pt's spouse requested return to [facility]. SS phoned and faxed clinical updates to [facility], ; fax [phone]. SS will await discharge orders for return to [facility] unit and will proceed accordingly
--- NOTE | 2019-01-19 12:26 | PDOC ---
SUBJECTIVE ROS Stable OBJECTIVE Vital Signs Vital Signs Date Time Temp Pulse Resp B/P (MAP) Pulse Ox O2 Delivery O2 Flow Rate FiO2 01/19/19 11:28 97.3 96 18 128/49 (75) 98 Nasal Cannula 2.0 97.3 I & 0 Intake and Output 01/19/19 07:00 Intake Total 670 ml Balance 670 ml Intake Oral 670 ml # Bowel Movements 2 PHYSICAL EXAM Physical Exam GENERAL: NAD HEENT- OM moist NECK: Supple. HEART: RRR LUNGS-Non labored , occ wheezes ABDOMEN: obese soft, nontender. NEUROLOGIC: ?baseline dementia - No ash Skin- No rash Ext- No edema, changes of CVI + Vital Signs Vital Signs Date Time Temp Pulse Resp B/P (MAP) Pulse Ox O2 Delivery O2 Flow Rate FiO2 01/17/19 09:19 96 Room Air 01/17/19 06:00 104 16 108/52 (70) 01/17/19 04:00 98.3 98.3 01/16/19 22:00 2.0 DIAGNOSIS/ASSESSMENT DIAGNOSIS/ASSESSMENT Assessment & Plan ESRD- TTS at [facility] Currently no indication for HD today Acute hypoxic respiratory failure- Improved with steroids and breathing treatment Anemia- Stable No Indication for CLEO Hx of CAD /CABG Congestive heart failure- Stable Afib/SSS - Not On anticoag COMMENT/RELEVANT DATA Meds Current Medications Medications (Trade) Dose Ordered Sig/Tracy Start Time Stop Time Status Last Admin Dose Admin Acetaminophen (Tylenol) 650 mg PRN Q6HRS PRN 01/17/19 14:00 01/18/19 01:59 650 MG Albuterol Sulfate (Ventolin Neb Soln) 2.5 mg 1X ONCE 01/17/19 03:30 01/17/19 03:31 DC 01/17/19 04:27 2.5 MG Albuterol/ Ipratropium (Duoneb) 3 ml RTQID 01/16/19 20:00 01/17/19 19:59 DC 01/17/19 19:58 3 ML Alprazolam (Xanax) 0.25 mg HS PRN 01/19/19 09:15 Bupropion HCl (Wellbutrin) 75 mg DAILY 01/17/19 14:30 01/19/19 08:12 75 MG Buspirone HCl (Buspar) 7.5 mg BID 01/17/19 21:00 01/19/19 08:12 7.5 MG Cholestyramine Resin (Questran Light) 4 gm BID 01/17/19 21:00 01/19/19 08:14 4 GM Dextrose (Dextrose 50%-Water Syringe) 12.5 gm 1X ONCE 01/19/19 11:30 01/19/19 11:34 DC Famotidine (Pepcid) 20 mg DAILYAC 01/17/19 13:00 01/19/19 08:12 20 MG Info (PHARMACY MONITORING -- do not chart) 1 each PRN DAILY PRN 01/18/19 09:45 UNV Insulin Glargine (Lantus) 15 units QHS 01/17/19 21:00 01/17/19 22:29 15 UNITS Insulin Human Lispro (HumaLOG) 5 units 1X ONCE 01/17/19 16:15 01/17/19 16:16 DC 01/17/19 16:27 5 UNITS Lactobacillus Rhamnosus (Culturelle) 1 cap BID 01/17/19 21:00 01/19/19 08:12 1 CAP Magnesium Oxide (Magnesium Oxide) 400 mg DAILY 01/17/19 14:00 01/19/19 08:13 400 MG Methylprednisolone Sodium Succinate (SOLU-Medrol 125MG VIAL) 125 mg 1X ONCE 01/16/19 19:15 01/16/19 19:16 DC 01/16/19 20:15 125 MG Metoprolol Succinate (Toprol Xl) 25 mg DAILY 01/17/19 14:30 01/19/19 08:13 25 MG Midodrine (Proamatine) 10 mg [id number] 01/17/19 18:00 01/19/19 05:53 10 MG Non-Formulary Medication (Melatonin ) 1 tab QHS 01/17/19 21:00 UNV Piperacillin Sod/ Tazobactam Sod (Zosyn Per Pharmacy) 1 each PRN DAILY PRN 01/16/19 18:45 01/17/19 11:50 DC Piperacillin Sod/ Tazobactam Sod 2.25 gm/Sodium Chloride 50 ml @ 100 mls/hr Q8H 01/17/19 03:00 01/17/19 11:45 DC 01/17/19 02:43 100 MLS/HR Pregabalin (Lyrica) 25 mg DAILY 01/20/19 09:00 Ropinirole HCl (Requip) 1 mg QHS 01/17/19 21:00 01/18/19 20:26 1 MG Sevelamer Carbonate (Renvela) 800 mg TIDWMEALS 01/17/19 17:00 01/19/19 08:12 800 MG Sodium Chloride 1,000 ml @ 400 mls/hr Q2H30M PRN 01/18/19 09:40 01/18/19 21:39 DC Vancomycin HCl (Vanco Per Pharmacy) 1 each PRN DAILY PRN 01/16/19 18:45 01/17/19 11:45 DC 01/16/19 19:52 1 EACH Vancomycin HCl (Vancomycin Random Level) 1 each 1X ONCE 01/18/19 19:00 01/18/19 19:01 Cancel Vancomycin HCl 2 gm/Sodium Chloride 500 ml @ 250 mls/hr 1X ONCE 01/16/19 19:30 01/16/19 21:29 DC 01/16/19 19:09 250 MLS/HR Lab Laboratory Tests Test 01/18/19 17:54 01/18/19 20:43 01/18/19 23:01 01/19/19 07:17 Glucose (Fingerstick) 181 mg/dL (70-99) 74 mg/dL (70-99) 68 mg/dL (70-99) 134 mg/dL (70-99) Test 01/19/19 11:03 01/19/19 11:46 Glucose (Fingerstick) 52 mg/dL (70-99) 97 mg/dL (70-99) Results All relevant outside records, renal labs, imaging studies, telemetry/EKG's were reviewed. LAURA COPPOLA MD Jan 19, 2019 12:26
--- NOTE | 2019-01-19 12:36 | PDOC ---
PULMONARY PROGRESS NOTES Subjective no soa Vitals Vital Signs Date Time Temp Pulse Resp B/P (MAP) Pulse Ox O2 Delivery O2 Flow Rate FiO2 01/19/19 11:28 97.3 96 18 128/49 (75) 98 Nasal Cannula 2.0 97.3 General: Alert, No acute distress Lungs: Clear Cardiovascular: S1, S2 Abdomen: Soft Extremities: Other (1+edema) Labs Laboratory Tests Test 01/17/19 15:57 01/17/19 22:25 01/18/19 12:04 01/18/19 17:54 Glucose (Fingerstick) 480 mg/dL (70-99) 496 mg/dL (70-99) 109 mg/dL (70-99) 181 mg/dL (70-99) Test 01/18/19 20:43 01/18/19 23:01 01/19/19 07:17 01/19/19 11:03 Glucose (Fingerstick) 74 mg/dL (70-99) 68 mg/dL (70-99) 134 mg/dL (70-99) 52 mg/dL (70-99) Test 01/19/19 11:46 Glucose (Fingerstick) 97 mg/dL (70-99) Laboratory Tests Test 01/18/19 17:54 01/18/19 20:43 01/18/19 23:01 01/19/19 07:17 Glucose (Fingerstick) 181 mg/dL (70-99) 74 mg/dL (70-99) 68 mg/dL (70-99) 134 mg/dL (70-99) Test 01/19/19 11:03 01/19/19 11:46 Glucose (Fingerstick) 52 mg/dL (70-99) 97 mg/dL (70-99) Medications Active Scripts Medications Dose Route/Sig Max Daily Dose Days Date Category Requip (Ropinirole Hcl) 1 Mg Tablet 1 Tab PO QHS 01/12/19 Reported Renvela (Sevelamer Carbonate) 800 Mg Tablet 800 Mg PO TIDWMEALS 01/12/19 Reported Melatonin 3 Mg Tablet 1 Tab PO QHS 01/12/19 Reported Lantus (Insulin Glargine,Hum.rec.anlog) 100 Unit/1 Ml Vial 15 Unit SQ HS 01/12/19 Reported Humalog (Insulin Lispro) 100 Unit/1 Ml Cartridge 7 Unit SQ TIDAC 01/12/19 Reported Famotidine 20 Mg Tablet 20 Mg PO DAILYAC 01/12/19 Reported Buspirone Hcl 5 Mg Tablet 7.5 Mg PO BID 01/12/19 Reported Bupropion Xl (Bupropion Hcl) 150 Mg Tab.er.24h 75 Mg PO DAILY 01/12/19 Reported Tylenol (Acetaminophen) 325 Mg Tablet 650 Mg PO PRN Q6HRS PRN 01/12/19 Reported Lyrica (Pregabalin) 75 Mg Capsule 1 Cap PO BID 12/13/18 Reported Alprazolam 0.5 Mg Tablet 1 Tab PO HS 12/02/18 Reported Midodrine Hcl 10 Mg Tablet 10 Mg PO TID 11/29/18 Reported Magnesium Oxide 400 Mg Tablet 1 Tab PO DAILY 08/11/18 Reported Prevalite Packet (Cholestyramine/Aspartame) 4 Gm Powd.pack 4 Gm PO BID 06/06/18 Reported Toprol Xl (Metoprolol Succinate) 25 Mg Tab.er.24h 1 Tab PO DAILY 06/06/18 Reported Impression . 1. Dyspnea, likely related to acute bronchospasm. This is now resolved with nebulizer and steroids. 2. Encephalopathy, resolved. May be medication effect, but ABGs were very reasonable with no evidence of any significant hypercapnia. 3. History of diastolic congestive heart failure. Chest x-ray showing no evidence of any recurrent congestive heart failure. 4. End-stage renal disease, on hemodialysis. Plan . RECOMMENDATIONS: 1. From a pulmonary standpoint, he is on room air and doing very well. I would continue DuoNebs. 2. off antibiotics 3. d/w RN 4. ok with dc to skill when ok by PCP MAZIN CROWLEY MD Jan 19, 2019 12:36
--- NOTE | 2019-01-19 12:45 | PDOC2 ---
PALLIATIVE CARE Palliative Care Note Palliative Care Consult requested by Dr. Aguilar to address goals of care. Patient well know to PC from previous admissions. Medical Assessment per medical record; . 1. Dyspnea, likely related to acute bronchospasm. This is now resolved with nebulizer and steroids. 2. Encephalopathy, completely resolved. May be medication effect, but ABGs were very reasonable with no evidence of any significant hypercapnia. 3. History of diastolic congestive heart failure. Chest x-ray showing no evidence of any recurrent congestive heart failure. 4. End-stage renal disease, on hemodialysis. Spoke with Carmella and patient in separate conversations; Reviewed medical condition as above. Both patient and Carmella clearly and adamantly want to continue with same course of treatment. Their goal is to get stronger and go home. Discussed other options such as comfort care. They are not interested in changing goals. Discussed concern that patient may not get strong enough to go home. Was told " I will get strong enough to go home" is supportive of this goal. Spoke with Karlene PLEITEZ, Dr. Aguilar, [employer] technical manager chemical plant and [facility] Director.--updated on patient goals. Concerns/questions addressed regarding Medicare Lifetime Limits. Carmella stated no one has ever talked to her about Medicare Life time limits. 1545; Spoke with patient and Carmella after discussion with [employer] Equalizer Operator. has decided to go home with [facility]. read and signed Outside the Hospital DNR/DNI. stated that they have "fought this for a year but he wants to be home" DME oxygen, air mattress; Patient already has bed, bed side table, commode, W/C. Carmella has been in Communication with [facility]. Spoke with Barb KIRKPATRICK who will fax information to [facility]. [employer] Equalizer Operator has spoke with Dr. Aguilar. 1630 Requested by Brenda COPPOLA to speak with . Carmella wants to take patient home tonight. No oxygen at home. Discussed with Carmella the importance of having oxygen at home before transfer, medications in place for comfort and equipment in place before discharge. Carmella and Chito agree to go home tomorrow after Hospice is arranged and equipment/ oxygen is in place. Plan transfer home tomorrow. Offered Carmella to stay the night with patient. She declined. Appreciative of support and information. JOSE CAGE Jan 19, 2019 12:44
[2019-01-19 14:50] VITALS: BP 116/53
[2019-01-19] MEDS: ACETAMINOPHEN 325 MG TABLET. PO PRN ×2 (15:27→23:15)
--- NOTE | 2019-01-19 15:40 | DISCH ---
DISCHARGE WITH HOME HEALTH DISCHARGE INFORMATION: Condition on Discharge: Stable HOME HEALTH: Face to Face: I certify this patient is under my care and that I, or a nurse practitioner or physician's housekeeper and laundry assistant working with me, had a face to face encounter that meets the physician face to face encounter requirements with this patient on []. POST DISCHARGE ORDERS: Activity Instructions for Disc: Activity as tolerated Weight Bearing Status after Di: No restrictions DIET AFTER DISCHARGE: Renal Wound/Incision Care: Keep wound/cast CDI CHECKS AFTER DISCHARGE: Checks after discharge: Check blood sugar, ac/hs TREATMENT/EQUIPMENT ORDERS: Adaptive Equipment Issued: None Discharge Respiratory Equipmen: Oxygen CERTIFICATION STATEMENT: Certification Statement: Certification Statement: Based on the above finding, I certify that this patient is confined to the home and needs intermittent correction care, physical therapy and/or speech therapy, or continues to need occupational therapy.~ This patient is under my care, and I have initiated the establishment of the plan of care.~ This patient will be followed by myself or a community physician who will periodically review the plan of care. Home Meds Reported Medications Ropinirole Hcl (REQUIP) 1 Mg Tablet, 1 TAB PO QHS for restless leg, #30 TAB 2 Refills 01/12/19 Sevelamer Carbonate (RENVELA) 800 Mg Tablet, 800 MG PO TIDWMEALS for esrd, TAB 01/12/19 Melatonin (MELATONIN) 3 Mg Tablet, 1 TAB PO QHS for insomnia, #30 TAB 2 Refills 01/12/19 Insulin Glargine,Hum.rec.anlog (LANTUS) 100 Unit/1 Ml Vial, 15 UNIT SQ HS for diabetes, VIAL 01/12/19 Insulin Lispro (HUMALOG) 100 Unit/1 Ml Cartridge, 7 UNIT SQ TIDAC for diabetes, EACH 01/12/19 Famotidine (FAMOTIDINE) 20 Mg Tablet, 20 MG PO DAILYAC for indigestion, TAB 01/12/19 Buspirone Hcl (BUSPIRONE HCL) 5 Mg Tablet, 7.5 MG PO BID for depression, TAB 01/12/19 Bupropion Hcl (BUPROPION XL) 150 Mg Tab.er.24h, 75 MG PO DAILY for major depressive d/o, TAB.SR 01/12/19 Acetaminophen (TYLENOL) 325 Mg Tablet, 650 MG PO PRN Q6HRS PRN for MILD PAIN / TEMP, TAB 01/12/19 Pregabalin (LYRICA) 75 Mg Capsule, 1 CAP PO BID for neurapathy, #60 CAP 1 Refill 12/13/18 Alprazolam (ALPRAZOLAM) 0.5 Mg Tablet, 1 TAB PO HS for anxiety , #30 TAB 12/02/18 Midodrine Hcl (MIDODRINE HCL) 10 Mg Tablet, 10 MG PO TID for Hypotension, TAB 11/29/18 Magnesium Oxide (MAGNESIUM OXIDE) 400 Mg Tablet, 1 TAB PO DAILY, #30 TAB 5 Refills 08/11/18 Cholestyramine/Aspartame (PREVALITE PACKET) 4 Gm Powd.pack, 4 GM PO BID, PKT 06/06/18 Metoprolol Succinate (TOPROL XL) 25 Mg Tab.er.24h, 1 TAB PO DAILY, #30 TAB 5 Refills 06/06/18 Discontinued Reported Medications Heparin Sodium,Porcine/Pf (HEPARIN SOD 5,000 UNIT/ 0.5 ML) 5,000 Unit/0.5 Ml Vial, 5000 UNIT SQ BID for preventative, EACH 01/12/19 Haloperidol (HALOPERIDOL) 2 Mg Tablet, 0.5 MG PO BID for depression, TAB 01/12/19 Fentanyl Citrate/Pf (FENTANYL CITRATE 100 MCG/2 ML) 100 Mcg/2 Ml Disp.syrin, 12.5 MCG IV Q6HRS for pain, DIS.SYR 12/13/18 Miconazole Nitrate (MICRO-GUARD) 85 Gm Powder, 85 GM TP BID for excoriation, MISC 12/13/18 Ropinirole Hcl (REQUIP) 0.5 Mg Tablet, 0.75 MG PO HS for select pt, TAB 12/13/18 Insulin Glargine,Hum.rec.anlog (LANTUS SOLOSTAR) 100 Unit/1 Ml Insuln.pen, 10 UNIT SQ QHS for diabetes, #15 ML 3 Refills 12/13/18 Pantoprazole Sodium (PROTONIX) 20 Mg Tablet.dr, 40 MG PO DAILY for gerd, TAB 12/13/18 Aspirin (ASPIRIN EC) 81 Mg Tablet.dr, 1 TAB PO DAILY, #30 TAB 3 Refills 08/11/18 Insulin Lispro (HUMALOG) 100 Unit/1 Ml Cartridge, 5 UNIT SQ TIDAC for diabetes, EACH 06/06/17 NAOMY RAMOS MD Jan 19, 2019 15:40
--- NOTE | 2019-01-19 15:46 | NUR ---
SW following pt. SW notified by Palliative care, pt has decided to go home tomorrow with [facility]. CASIMIRO phoned and faxed referral to [facility], phone: [phone], fax: [phone]. Spoke with Daniel at [facility] and notified her family needs 02 and air loss mattress. Daniel reported their SW will call family tomorrow to coordinate dc. Please call [facility] tomorrow to co-ordinate discharge. Admission and acceptance pending. Discussed with RN.
--- NOTE | 2019-01-19 17:53 | DS ---
DATE OF DISCHARGE: 01/19/2019 HOSPITAL COURSE: The patient is an 83-year-old male patient with numerous medical problems who has been in and out of the hospital numerous times, which counted about 16 times over the last few months. He has spend more time in the hospital and nursing than at home and when every time he is dialyzed, he become very tired, hypotensive, encephalopathic, hypoxic and end up in the hospital and I have consulted the palliative care this morning and apparently spoke with his and apparently she finally agreed to take him home on hospice. A decision was made to discharge him home with hospice. PHYSICAL EXAMINATION: GENERAL: When I saw him this morning, he was extremely lethargic, but arousable, pale, but no jaundice, cyanosis, or thyromegaly. No jugular venous distension. No limb edema. VITAL SIGNS: His heart rate was 87, blood pressure 116/53, temperature was 97.3, respiratory rate was 16 and oxygen saturation was 100% on 2 liters of oxygen. HEAD, EYES, EARS, NOSE AND THROAT: Showed normocephalic, atraumatic. NECK: Supple. HEART: Showed normal first and second heart sounds with no gallop, rub or murmur. CHEST: Clear to auscultation. No crepitation or rhonchi. ABDOMEN: Distended, soft, nontender. NEUROLOGIC: He is very lethargic, but arousable. He is legally blind, but all other cranial nerves are intact. He moves extremities without difficulty, although he is mostly bedbound, chair bound. LABORATORY DATA: Showed a hemoglobin of 11.8, hematocrit 37 with normal white cell count and platelets of 89,000. His chemistry is variable. His blood sugar has been stable. DISCHARGE MEDICATIONS: He will be discharged home with hospice for comfort and end of life care. He should continue on his current medications including Tylenol 650 mg every 6 hours, alprazolam 0.5 mg at bedtime, Wellbutrin 75 mg daily, buspirone 7.5 mg twice a day, cholestyramine and aspartame 4 grams twice a day, famotidine 20 mg daily. He is on Lantus insulin 15 units at bedtime and Humalog insulin 7 units before meals, magnesium oxide 400 mg daily, melatonin 3 mg at bedtime, metoprolol succinate 25 mg once a day, midodrine 10 mg 3 times a day, pregabalin 75 mg twice a day, Requip 1 mg at bedtime, sevelamer 800 mg 3 times a day with meals. FINAL DISCHARGE DIAGNOSES: End-stage renal failure, on hemodialysis on Tuesday, , Tuesday, diastolic congestive heart failure, coronary artery disease, status post coronary artery bypass grafting, atrial fibrillation, sick sinus syndrome, not on anticoagulation. He has obstructive sleep apnea, severe pulmonary hypertension, gastroesophageal reflux disease, anemia of chronic kidney disease, chronic low back pain, Parkinson's disease and seizure disorder. NAOMY RAMOS MD DR: RODGER/elpidio JOB#: [id number] / [id number]
--- NOTE | 2019-01-19 19:23 | PN ---
DATE: SUBJECTIVE: The patient is resting slightly propped up in bed, extremely lethargic. His blood sugar was 134 and very difficult to arouse. I spoke with the social service agency director and given that he has been in and out and spent more time in the hospital than the custodial, I do not think the patient is really able to go back to the custodial and I will discontinue all his medication that may be contributing to his lethargy. I also consulted the palliative care to talk about perhaps comfort and hospice care. PHYSICAL EXAMINATION: GENERAL: When I examined him, he was very lethargic, but arousable, pale, no jaundice, cyanosis, or thyromegaly. No jugular venous distension. No lower limb edema. VITAL SIGNS: His heart rate was 98, blood pressure was 115/47, temperature was 97.3, respiratory rate was 18 and oxygen saturation was 94% on 2 liters of oxygen. HEAD, EYES, EARS, NOSE AND THROAT: Showed normocephalic, atraumatic. NECK: Supple. HEART: Showed normal first and second sounds. No gallop, rub or murmur. CHEST: Clear to auscultation. No crepitation or rhonchi. ABDOMEN: Distended, soft, nontender. NEUROLOGIC: He was very lethargic, but arousable. ASSESSMENT AND PLAN: Altered mental status, probably multifactorial. He is on multiple medications that might be contributing to this including pregabalin he is taking 75 mg twice a day. I will discontinue that or cut it down. He is on alprazolam. I will cut down the pregabalin to 25 mg twice a day and cut down his alprazolam to 0.5 mg at bedtime and change it to p.r.n. NAOMY RAMOS MD DR: RODGER/elpidio JOB#: [id number] / [id number]
[2019-01-19 19:25] VITALS: BP 123/67
[2019-01-19] MEDS: INSULIN GLARGINE 300 UNITS/3 ML INSULN.PEN. SQ SCH (20:30)
[2019-01-19] MEDS: rOPINIRole 1 MG TABLET. PO SCH (20:30)
[2019-01-19 23:00] VITALS: BP 149/70
[2019-01-20 02:54] VITALS: BP 124/67
[2019-01-20 05:49] LABS: CALCIUM 8.2 mg/dL (8.5-10.1); GFR 11.1; POTASSIUM 4.1 mmol/L (3.5-5.1)
[2019-01-20] MEDS: MIDODRINE 5 MG TABLET PO SCH ×2 (06:11→12:45)
[2019-01-20 07:00] VITALS: BP 116/60
--- NOTE | 2019-01-20 07:05 | PDOC ---
PULMONARY PROGRESS NOTES Subjective somewhat confused, follows some commands, on 02 Vitals Vital Signs Date Time Temp Pulse Resp B/P (MAP) Pulse Ox O2 Delivery O2 Flow Rate FiO2 01/20/19 06:11 90 124/67 01/20/19 02:54 97.3 95 Nasal Cannula 1.5 97.3 01/19/19 23:00 22 General: Alert, No acute distress Lungs: Crackles Cardiovascular: S1, S2 Abdomen: Soft Extremities: Other (1+edema) Skin: Warm Labs Laboratory Tests Test 01/18/19 12:04 01/18/19 17:54 01/18/19 20:43 01/18/19 23:01 Glucose (Fingerstick) 109 mg/dL (70-99) 181 mg/dL (70-99) 74 mg/dL (70-99) 68 mg/dL (70-99) Test 01/19/19 07:17 01/19/19 11:03 01/19/19 11:46 01/19/19 16:41 Glucose (Fingerstick) 134 mg/dL (70-99) 52 mg/dL (70-99) 97 mg/dL (70-99) 110 mg/dL (70-99) Test 01/19/19 20:28 01/20/19 05:30 Glucose (Fingerstick) 116 mg/dL (70-99) Sodium Level 140 mmol/L (136-145) Potassium Level 4.1 mmol/L (3.5-5.1) Chloride Level 102 mmol/L (98-107) Carbon Dioxide Level 26 mmol/L (21-32) Anion Gap 12 (6-14) Blood Urea Nitrogen 56 mg/dL (8-26) Creatinine 5.0 mg/dL (0.7-1.3) Estimated GFR (Cockcroft-Gault) 11.1 Glucose Level 118 mg/dL (70-99) Calcium Level 8.2 mg/dL (8.5-10.1) Laboratory Tests Test 01/19/19 07:17 01/19/19 11:03 01/19/19 11:46 01/19/19 16:41 Glucose (Fingerstick) 134 mg/dL (70-99) 52 mg/dL (70-99) 97 mg/dL (70-99) 110 mg/dL (70-99) Test 01/19/19 20:28 01/20/19 05:30 Glucose (Fingerstick) 116 mg/dL (70-99) Sodium Level 140 mmol/L (136-145) Potassium Level 4.1 mmol/L (3.5-5.1) Chloride Level 102 mmol/L (98-107) Carbon Dioxide Level 26 mmol/L (21-32) Anion Gap 12 (6-14) Blood Urea Nitrogen 56 mg/dL (8-26) Creatinine 5.0 mg/dL (0.7-1.3) Estimated GFR (Cockcroft-Gault) 11.1 Glucose Level 118 mg/dL (70-99) Calcium Level 8.2 mg/dL (8.5-10.1) Medications Active Scripts Medications Dose Route/Sig Max Daily Dose Days Date Category Requip (Ropinirole Hcl) 1 Mg Tablet 1 Tab PO QHS 01/12/19 Reported Renvela (Sevelamer Carbonate) 800 Mg Tablet 800 Mg PO TIDWMEALS 01/12/19 Reported Melatonin 3 Mg Tablet 1 Tab PO QHS 01/12/19 Reported Lantus (Insulin Glargine,Hum.rec.anlog) 100 Unit/1 Ml Vial 15 Unit SQ HS 01/12/19 Reported Humalog (Insulin Lispro) 100 Unit/1 Ml Cartridge 7 Unit SQ TIDAC 01/12/19 Reported Famotidine 20 Mg Tablet 20 Mg PO DAILYAC 01/12/19 Reported Buspirone Hcl 5 Mg Tablet 7.5 Mg PO BID 01/12/19 Reported Bupropion Xl (Bupropion Hcl) 150 Mg Tab.er.24h 75 Mg PO DAILY 01/12/19 Reported Tylenol (Acetaminophen) 325 Mg Tablet 650 Mg PO PRN Q6HRS PRN 01/12/19 Reported Lyrica (Pregabalin) 75 Mg Capsule 1 Cap PO BID 12/13/18 Reported Alprazolam 0.5 Mg Tablet 1 Tab PO HS 12/02/18 Reported Midodrine Hcl 10 Mg Tablet 10 Mg PO TID 11/29/18 Reported Magnesium Oxide 400 Mg Tablet 1 Tab PO DAILY 08/11/18 Reported Prevalite Packet (Cholestyramine/Aspartame) 4 Gm Powd.pack 4 Gm PO BID 06/06/18 Reported Toprol Xl (Metoprolol Succinate) 25 Mg Tab.er.24h 1 Tab PO DAILY 06/06/18 Reported Impression . 1. Dyspnea, likely related to acute bronchospasm. This is now resolved with nebulizer and steroids. 2. Encephalopathy, improving. May be medication effect, but ABGs were very reasonable with no evidence of any significant hypercapnia. 3. History of diastolic congestive heart failure. Chest x-ray showing no evidence of any recurrent congestive heart failure. 4. End-stage renal disease, on hemodialysis. Plan . RECOMMENDATIONS: 1. 02 titration, BD, continue DuoNebs. 2. off antibiotics 3. d/w RN 4. ok with dc to skill when ok by PCP JAKE MILLER MD Jan 20, 2019 07:05
[2019-01-20] MEDS: INSULIN LISPRO 300 UNITS/3 ML INSULN.PEN. SQ SCH ×2 (08:00→11:41)
[2019-01-20] MEDS ORDERED: PREGABALIN 25 MG CAPSULE PO SCH (09:00)
[2019-01-20] MEDS: CHOLESTYRAMINE/ASPARTAME 4 GM PACKET PO SCH (09:49)
[2019-01-20] MEDS: busPIRone 5 MG TABLET. PO SCH (09:49)
[2019-01-20] MEDS: FAMOTIDINE 20 MG TABLET. PO SCH (09:50)
[2019-01-20] MEDS: SEVELAMER CARBONATE 800 MG TABLET. PO SCH ×2 (09:50→12:43)
[2019-01-20] MEDS: LACTOBACILLUS RHAMNOSUS GG 1 CAPSULE. PO SCH (09:51)
[2019-01-20] MEDS: METOPROLOL SUCC 24HR ER 25 MG TAB.ER.24H. PO SCH (09:51)
[2019-01-20] MEDS: buPROPion 75 MG TABLET. PO SCH (09:51)
[2019-01-20] MEDS: MAGNESIUM OXIDE 400 MG TABLET PO SCH (09:52)
[2019-01-20 10:49] VITALS: BP 118/57
[2019-01-20] MEDS: IPRATRPIUM/ALBUTEROL 0.5/2.5MG 3 ML NEBU. NEB SCH ×2 (11:38→15:43)
--- NOTE | 2019-01-20 14:44 | NUR ---
pt is to be discharged home today to Hospice care. transportation will be picking up the pt between 17-1730 today. I have called report to the hospice nurse Rosy Sauceda at 14:30. Nabil Munson RN
[2019-01-20 15:00] VITALS: BP 118/58
--- NOTE | 2019-01-20 17:01 | NUR ---
pt was picked up by transportation at 16:57 to be taken home to be on hospice. pt did not have any clothing here to wear, so he was sent home with hospital gown and pj pants. Nabil Munson RN
--- NOTE | 2019-01-20 21:25 | PN ---
DATE: 01/20/2019 SUBJECTIVE: The patient is resting slightly propped up in bed, sleeping comfortably in no apparent distress. The nursing staff did not voice any concerns and that he had an uneventful night. Apparently, there was a lengthy discussion with the palliative care team yesterday as well as social secretary and his has finally agreed to take him home on hospice. PHYSICAL EXAMINATION: GENERAL: When I saw him today, he was resting slightly propped up, sleeping comfortably, in no apparent distress, pale, no jaundice, cyanosis, or thyromegaly. No jugular venous distension. No lower limb edema. VITAL SIGNS: His heart rate was 90, blood pressure was 134/67, temperature was 97.3, respiratory rate was 22 and oxygen saturation was 95% on 2 liters of oxygen. HEAD, EYES, EARS, NOSE AND THROAT: Showed normocephalic, atraumatic. NECK: Supple. HEART: Showed normal first and second sounds. No gallop, rub or murmur. CHEST: Clear to auscultation. No crepitation or rhonchi. ABDOMEN: Distended, soft, nontender. NEUROLOGIC: He visually is legally blind. All cranial nerves are intact. He moves extremities without difficulty, although he is mostly bedbound, chair bound. His intake was 670. No output recorded. ASSESSMENT: 1. End-stage renal disease on hemodialysis on Tuesday, and Tuesday. 2. Chronic diastolic congestive heart failure. 3. Coronary artery disease, status post coronary artery bypass graft surgery. 4. Atrial fibrillation, rate controlled, not anticoagulated, sick sinus syndrome. 5. Obstructive sleep apnea. 6. Severe pulmonary hypertension. 7. Gastroesophageal reflux disease. 8. Anemia of chronic kidney disease, chronic low back pain, and Parkinson's disease as well as seizure disorder. His arrangement has been completed today. The patient will be discharged home with [facility] hosp[facility] for comfort and end-of-life care. NAOMY RAMOS MD DR: RODGER/elpidio JOB#: [id number] / [id number]
== END 2019-01-20 17:04 | disposition hospice, home (50) | DRG 189 ==
LOC: ER 17:22 → 1 WEST ICU 19:08 → 2 SOUTH 01-17 17:50
PROVIDERS: ADMIT Internal Medicine; ATTEND Internal Medicine
PROC: 5A1D70Z Performance of Urinary Filtration, Intermittent, Less than 6 Hours Per Day (ICD-10-PCS; principal; 2019-01-18)
DX: J96.21 Acute and chronic respiratory failure with hypoxia (principal); N18.6 End stage renal disease; I13.2 Hypertensive heart and chronic kidney disease with heart failure and with stage 5 chronic kidney disease, or end stage renal disease; G93.40 Encephalopathy, unspecified; I50.32 Chronic diastolic (congestive) heart failure; I42.9 Cardiomyopathy, unspecified; D63.1 Anemia in chronic kidney disease; E11.22 Type 2 diabetes mellitus with diabetic chronic kidney disease; E11.65 Type 2 diabetes mellitus with hyperglycemia; E78.00 Pure hypercholesterolemia, unspecified; E78.5 Hyperlipidemia, unspecified; F03.90 Unspecified dementia, unspecified severity, without behavioral disturbance, psychotic disturbance, mood disturbance, and anxiety; F09 Unspecified mental disorder due to known physiological condition; G20 Parkinson's disease; G40.909 Epilepsy, unspecified, not intractable, without status epilepticus; G47.33 Obstructive sleep apnea (adult) (pediatric); G89.29 Other chronic pain; H54.8 Legal blindness, as defined in USA; I25.10 Atherosclerotic heart disease of native coronary artery without angina pectoris; I27.20 Pulmonary hypertension, unspecified; I25.2 Old myocardial infarction; I48.91 Unspecified atrial fibrillation; K21.9 Gastro-esophageal reflux disease without esophagitis; N40.1 Benign prostatic hyperplasia with lower urinary tract symptoms; Z51.5 Encounter for palliative care; Z85.46 Personal history of malignant neoplasm of prostate; Z85.828 Personal history of other malignant neoplasm of skin; Z87.11 Personal history of peptic ulcer disease; Z89.429 Acquired absence of other toe(s), unspecified side; Z95.0 Presence of cardiac pacemaker; Z95.1 Presence of aortocoronary bypass graft; Z95.5 Presence of coronary angioplasty implant and graft; Z98.1 Arthrodesis status; Z99.2 Dependence on renal dialysis
CPT/HCPCS: 36415; 36600; 70450; 71045; 80047; 80048; 80053; 82140; 82805; 82962; 83605; 83735; 83880; 84484; 85007; 85025; 85610; 87040; 87641; 87804; 93005; 93970; 94640; 96365; 96366; 96368; J1815; J2543; J2930; J3370; J7040; J7042; J7613; J7620; 99285-25